=== PATIENT | male | born 1950 | race Caucasian/White ===

== ENCOUNTER → 2018-08-03 08:33 | Outpatient (CLI) | payer OTHER, SELFPAY ==
[2018-08-03 10:44] LABS: AST(SGOT) 29 U/L (15-37); Alanine Aminotransfer ALT/SGPT 45 U/L (16-61); Albumin, Serum 3.5 g/dL (3.2-5.0); Alkaline Phosphatase 56 U/L (45-117); Anion Gap 14 (5-15); BUN 35 mg/dL (7-18); BUN/Creat Ratio 19.7 RATIO (10-20); Calcium,Total 9.1 mg/dL (8.5-10.1); Chloride 104 mmol/L (98-107); Cholesterol 297 mg/dL (200); Creatinine, Serum 1.78 mg/dL (0.70-1.30); EST Glomerular Filtration Rate 41 mL/min (>60); Est Glom Filt Rate - Afr Amer 49 mL/min (>60); Globulin 3.5 g/dL (2.2-4.2); Glucose 150 mg/dL (74-106); High Density Lipoprotein 32 mg/dL; Potassium 3.9 mmol/L (3.5-5.1); Sodium Level 140 mmol/L (136-145); Thyroid Stim Hormone (TSH) 3.62 uIU/mL (0.358-3.74); Triglycerides 403 mg/dL
--- OUTSIDE RECORDS SUMMARY | 2018-11-04 13:25 | XMS RPT_ITS ---
:1950 Author Organization OHIP Care Team Providers Name Role Phone Enzo Jasso Attending Unavailable Enzo Jasso Primary Care Unavailable Enzo Jasso Attending Unavailable Enzo Jasso Primary Care Unavailable PROBLEMS PROBLEMS DATE TYPE CONDITION / CODE ATTENDING STATUS SOURCE 05/03/2018 Unknown E11.29 - Type 2 Enzo Jasso Active [place] diabetes mellitus [facility] with other [facility] diabetic kidney Repository complication / E11.29(ICD-10) PROCEDURES PROCEDURES No Procedure Records FoundRESULTS RESULTS VITAMIN D,25 HYDROXY Collected: 08/03/2018 Status: F Source: [place] 8:36 AM [facility] REPOSITORY Order Comment: Order Date: 05/03/18 Order Info: [id number] - VITD25 Comments: STANDing ORDER TYPE CODE TESTS RESULT OUT OF REFERENCE UNITS RANGE LAB L506.1000 29.95-100.01 ng/mL Low Vitamin D 18.0 25-OH Result Comment: Vitamin D 25(OH) Status Range Deficiency <20 ng/mL (50nmol/L) Insuffciency 20 - 30 ng/mL (50 - 75 nmol/L) Sufficiency 30 - 100 ng/mL (75 - 250 nmol/L) Toxicity >100 ng/mL (>250 nmol/L) Performed By: #### L506.1000, L500.4050, L500.4100, L501.9520 #### [place] [facility] [address] [place], [address] COMPREHENSIVE METABOLIC Collected: 08/03/2018 Status: F Source: [place] PROFIL 8:36 AM [facility] REPOSITORY Order Comment: Order Date: 05/03/18 Order Info: [id number] - CMP Order Info: [id number] - LIPID Order Info: [id number] - TSH TYPE CODE TESTS RESULT OUT OF RANGE REFERENCE UNITS LAB L501.0100 74-106 mg/dL High GLU 150 Result Comment: Fasting Glucose result greater than or equal to 126 mg/dL suggests DIABETES MELLITUS per A.D.A. criteria. Please note revised GLUCOSE reference range effective 2017. LAB L501.1000 7-18 mg/dL High BUN 35 LAB L501.1100 0.70-1.30 mg/dL High CREAT,SERUM 1.78 Result Comment: The validity of the calculated GFR AND GFRAA in patients over 70 years has not been determined. Clinical correlation is essential. LAB L501.1110 >60 mL/min Low EST GFR 41 Result Comment: Non- GFR Calc LAB L501.1115 >60 mL/min Low EST GFR - AA 49 Result Comment: GFR Calc LAB L501.1300 10-20 RATIO Normal BUN/CRE 19.7 LAB L501.1500 6.4-8.2 g/dL T Normal PROT 7.0 LAB L501.1800 3.2-5.0 g/dL Normal ALB 3.5 LAB L501.1950 2.2-4.2 g/dL Normal GLOB 3.5 LAB L501.2000 0.9-2.4 RATIO Normal A/G 1.0 LAB L501.2200 8.5-10.1 mg/dL CA Normal 9.1 LAB L501.4100 15-37 U/L Normal AST 29 LAB L501.4305 45-117 U/L Normal ALK P 56 LAB L501.4405 16-61 U/L Normal ALT 45 LAB L501.4600 0.20-1.00 mg/dL T Normal BILI 0.80 LAB L501.5300 136-145 mmol/L NA Normal 140 LAB L501.5600 3.5-5.1 mmol/L K Normal 3.9 LAB L501.5900 98-107 mmol/L CL Normal 104 LAB L501.6100 21.0-32.0 mmol/L Normal CO2 22.0 LAB L501.6200 5-15 Normal GAP 14 Performed By: #### L506.1000, L500.4050, L500.4100, L501.9520 #### [facility] [address] [place], [place], [id number] LIPID PROFILE Collected: 08/03/2018 Status: F Source: [place] 8:36 AM [facility] REPOSITORY Order Comment: Order Date: 05/03/18 Order Info: [id number] - CMP Order Info: [id number] - LIPID Order Info: [id number] - TSH TYPE CODE TESTS RESULT OUT OF RANGE REFERENCE UNITS LAB L501.4900 200 mg/dL High CHOL 297 Result Comment: <200 mg/dL Desirable 200-240 mg/dL Borderline >240 mg/dL High Risk LAB L501.5000 mg/dL High TRIG 403 Result Comment: The drugs N-Acetylcysteine and Metamizole may falsely depress this assay. TRIGLYCERIDE IS GREATER THAN 400 mg/dL. LDL RESULT IS INVALID AND WILL NOT BE REPORTED. Serum Triglycerides Reference Interval Normal <150 mg/dL Borderline high 150 - 199 mg/dL High 200 - 499 mg/dL Very High > or = 500 mg/dL LAB L501.6400 mg/dL Low HDL 32 Result Comment: The drugs N-Acetylcysteine and Metamizole may falsely depress this assay. Reference Range HDL <40 mg/dL Low HDL Cholesterol HDL >or= 60 mg/dL High HDL Cholesterol LAB L501.6500 0-130 mg/dL Test Normal not performed LDL LAB L501.6600 5-40 mg/dL Test Normal not performed VLDL Performed By: #### L506.1000, L500.4050, L500.4100, L501.9520 #### [facility] [address] [place], [place], [address] THYROID STIM HORMONE Collected: 08/03/2018 Status: F Source: [place] (TSH) 8:36 AM [facility] REPOSITORY Order Comment: Order Date: 05/03/18 Order Info: [id number] - CMP Order Info: [id number] - LIPID Order Info: [id number] - TSH TYPE CODE TESTS RESULT OUT OF RANGE REFERENCE UNITS LAB L501.9520 0.358-3.74 uIU/mL Normal TSH 3.62 Performed By: #### L506.1000, L500.4050, L500.4100, L501.9520 #### [facility] [address] [place], [address] ALLERGIES ALLERGIES DATE TYPE / CODE NAME / CODE REACTION SEVERITY SOURCE 06/04/2017 Drug No Known Unknown [facility] Allergy/4160 Allergies/F00 [facility] 01634(SNOMED [id number](RXNOR Repository CT) M) ENCOUNTERS ENCOUNTERS ADMIT/DISCHARGE ACCOUNT ADMITTING ENCOUNTER LOCATION SOURCE NUMBER CLASS 08/03/2018 [id number] Ambulatory [place] 1 [facility] ing:MFPLAB Repository 05/03/2018 [id number] Ambulatory [place] 6 [facility] ing:LAB.FUTUR Repository E PAYERS PAYERS ENCOUNTER GUARANTOR PAYER SUBSCRIBER SOURCE 08/03/2018 V[facility]A [facility] Primary LUKE Haider [id number] Insurance:[employer] [facility]: [facility] Number: [id number] [id number] Repository [address]Ssh: [phone]) Date:0769-50-86LX [phone] () [address] [place] [address]JB: 08/03/2018 Secondary NOT GIVENUNK [place] Insurance:SELF PAY [facility] Number: Effective Repository Date:2018-08-03 05/03/2018 [place] Dooley Primary LUKE Haider [id number] [facility] [id number] [id number] Repository [address]Kca: ([phone]) Date:1066-10-20AQ [phone] () [address] [place] [address]HL: 05/03/2018 Secondary NOT GIVENUNK [place] Insurance:SELF PAY [facility] Number: Effective Repository Date:2018-05-03
== END ==
PROVIDERS: Family Provider Family Medicine; PCP Family Medicine; Visit Provider Family Medicine
DX: E11.29 Type 2 diabetes mellitus with other diabetic kidney complication (principal)
CPT/HCPCS: 36415; 80053; 80061; 82306; 84443

== ENCOUNTER → 2019-01-27 12:01 | Outpatient (CLI) | payer OTHER, SELFPAY ==
[2017-06-04 14:52] VITALS: BMI 41.1
[2019-01-27 18:40] LABS: Hemoglobin A1c 7.8 % (4.2-6.3)
[2019-01-27 18:56] LABS: ALB/GLOB Ratio 1.2 RATIO (0.9-2.4); AST(SGOT) 23 U/L (15-37); Alanine Aminotransfer ALT/SGPT 34 U/L (16-61); Albumin, Serum 3.8 g/dL (3.2-5.0); Alkaline Phosphatase 39 U/L (45-117); Anion Gap 9 (5-15); BUN 36 mg/dL (7-18); BUN/Creat Ratio 21.7 RATIO (10-20); Calcium,Total 9.1 mg/dL (8.5-10.1); Chloride 106 mmol/L (98-107); Cholesterol 273 mg/dL (200); Creatinine, Serum 1.66 mg/dL (0.70-1.30); EST Glomerular Filtration Rate 44 mL/min (>60); Est Glom Filt Rate - Afr Amer 54 mL/min (>60); Globulin 3.3 g/dL (2.2-4.2); Glucose 114 mg/dL (74-106); High Density Lipoprotein 33 mg/dL; Potassium 4.4 mmol/L (3.5-5.1); Protein, Total 7.1 g/dL (6.4-8.2); Sodium Level 140 mmol/L (136-145); Thyroid Stim Hormone (TSH) 2.79 uIU/mL (0.358-3.74); Triglycerides 293 mg/dL; Very Low Density Lipoprotein 59 mg/dL (5-40)
== END ==
PROVIDERS: Family Provider Family Medicine; PCP Family Medicine; Referring Provider Family Medicine; Visit Provider Family Medicine
DX: E11.29 Type 2 diabetes mellitus with other diabetic kidney complication (principal)
CPT/HCPCS: 36415; 80053; 80061; 83036; 84443

== ENCOUNTER 2019-05-11 08:27 | Outpatient (RCR) | payer OTHER, SELFPAY ==
[2019-05-11 09:26] VITALS: BP 117/72; PULSE 66; RESP 16; TEMP 37; BMI 39.5
--- NOTE | 2019-05-11 18:18 | HP.PCM_ITS ---
(1) Ulcer of right lower extremity with fat layer exposed Status: Acute Current Visit: Yes Code(s): L97.912 - Non-pressure chronic ulcer of unspecified part of right lower leg with fat layer exposed (2) Leg edema Status: Chronic Current Visit: Yes Code(s): R60.0 - Localized edema (3) Venous insufficiency Status: Suspected Current Visit: Yes Code(s): I87.2 - Venous insufficiency (chronic) (peripheral) (4) Other specified peripheral vascular diseases Status: Suspected Current Visit: Yes Code(s): I73.89 - Other specified peripheral vascular diseases (5) Right leg pain Status: Acute Current Visit: Yes Code(s): M79.604 - Pain in right leg (6) Diabetes Status: Chronic Current Visit: Yes Qualifiers: Diabetes mellitus type: type 2 Diabetes mellitus complication detail: with other skin ulcer Code(s): E11.9 - Type 2 diabetes mellitus without complications (7) Malnutrition Status: Suspected Current Visit: Yes Code(s): E46 - Unspecified protein- calorie malnutrition History of Present Illness Date of Service: 05/11/19 Chief Complaint: Right leg ulcer History of Wound: This 68-year-old male with significant past medical history of diabetes presented to the wound healing center complaining of a nonhealing ulcer of approximately 2 and half weeks. He did hit this on the side of his truck and sustained an open injury with further infection formation and black progression of his leg tissue. He was started on antibiotic which was not tolerated and then was further switched to doxycycline. He reports feeling much better and has resolution of leg redness since he has been on doxycycline prescribed by his primary care physician. He denies odor or streaking at this time. His pain is moderate and is aggravated with direct touch. He denies claudication. He denies rest burning, tingling, or numbness. He has ongoing chronic leg swelling. He relates he had previous blisters and wounds and MRSA infections when he was in [place] several years ago which she was treated with IV antibiotics and for a blood clot as well. He denies calf pain similar to his prior blood clot experience at this time. He has been treating the ulcer site with bacitracin and other topical wzzh-vje-wbetcat medication at home. He covers this with a gauze. He relates his last known hemoglobin A1c was approximately 7%. His primary care physician is Dr. Jasso. Past medical history: Diabetes, history of blood clot, hypertension. Medications: Reviewed. Allergies: No known drug allergies. Social history: Lives at home with . He denies alcohol or smoking habits Past Medical History Past Medical History: Chronic Problems Leg edema (Chronic) Diabetes (Chronic) Post-phlebitic syndrome (Chronic) Thromboembolism (Chronic) HLD (hyperlipidemia) (Chronic) Type II diabetes mellitus (Chronic) Benign essential hypertension (Chronic) Surgical History: no surgical history Allergies/Adverse Reactions: Allergies No Known Allergies Allergy (Verified 06/04/17 14:56) Home Medications: Ambulatory Orders Medication Instructions Recorded Acarbose [Precose] 100 mg PO TID 11/12/16 Atenolol [Tenormin (Beta Gabe)] 50 mg PO DAILY 11/12/16 Cinnamon Bark [Cinnamon] 500 mg PO BID 11/12/16 Co Q10 200 [Co Q-10] 100 mg PO DAILY 11/12/16 Dulaglutide [Trulicity] SQ QWEEK 11/12/16 Glimepiride 1 tab PO DAILY 11/12/16 Losartan Potassium [Cozaar] 100 mg PO QHS 11/12/16 Magnesium Oxide [Magnesium] 400 mg PO DAILY 11/12/16 Pravastatin Sodium 80 mg PO DAILY 11/12/16 Selenium 200 tablet PO DAILY 11/12/16 Triamterene/Hydrochlorothiazid 1 each PO DAILY 11/12/16 [Triamterene-Hctz 37.5-25 mg Cp] Warfarin Sodium [Coumadin] 4 mg PO UD 11/12/16 Warfarin [Coumadin (PBKC)] 3 mg PO UD 11/12/16 hydrALAZINE [Apresoline] 25 mg PO BID 11/12/16 metFORMIN HCl [Glucophage] 1,000 mg PO BIDCM 11/12/16 Empagliflozin [Jardiance] 10 mg PO DAILY 06/04/17 Lives: Spouse/ Significant Other Smoking Status: Never smoker Tobacco Use: Non-smoker Alcohol: None Drugs: None Review of Systems Constitutional: Denies: Chills, Fever, Weakness, Fatigue Eyes: Reports: Vision Change HEENT: Denies: Sinus Drainage, Sore Throat Cardiovascular: Denies: Chest Pain, Claudication, Orthopnea Respiratory: Denies: Shortness of Breath Gastrointestinal: Denies: Diarrhea, Nausea, Vomiting Musculoskeletal: Reports: Leg Pain - At wound site. Denies: Foot Pain Skin: Reports: Skin Changes, Wounds Neurological: Denies: Incoordination, Numbness Hematologic/ Lymphatic: Reports: Easy Bruising, Hx of blood clot - Physical Exam Vital Signs Temp Pulse Resp BP 98.6 F 66 16 117/72 05/11/19 09:26 05/11/19 09:26 05/11/19 09:26 05/11/19 09:26 General: Alert, Oriented x3, Cooperative, No apparent distress HEENT: Atraumatic Extremities: No cyanosis, Capillary Refill Less than 3 Seconds - All digits bilateral lower extremities, No Calf Tenderness - Negative Jenna and Tony sign bilateral. Compartments are soft to palpate bilateral lower extremities, Diminished Peripheral Pulses, Edema - Bilateral lower extremities moderate, nonpitting, - - Active range of motion digits x10. 5 out of 5 ankle muscle strength in all directions bilateral Skin: Ulcer/ Wound - Pain with ulcer manipulation right leg. No purulence, erythema, streaking, odor, infection, deep tissue exposure, or probing to bone or muscle. There is a well adhered eschar and after debridement the ulcer bed is granular, fibrous, and with some residual adherence of an eschar. No undermining is noted. The peripheral skin is atrophic with some hair Wound Measurements and Assessment WC - Nurse 1 - General Ulcer Measurement Start: 05/11/19 08:58 Freq: Status: Active Protocol: Activity Type Activity Date Activity User E-Sign Co-Sign Detail Recorded Client Recorded Date Recorded By Document 05/11/19 09:26 [id number] 05/11/19 09:32 05/11/19 09:26 Wound Center Nurse 1 [Ulcer Assessment] #1 RLE -Combined with other wound No -Current Size (cm) - Length 5.5 -Current Size (cm) - Width 2.4 -Current Size (cm) - Depth 0.2 -Total Square Cm 13.20 -Date of Last Picture (Recall this 05/11/19 field) -Photo Taken Yes -Epithelialization None Present -Tunneling No -Undermining/Tunneling No -Circular Undermining No -Exudate Amt None Present -Wound Margin Distinct, Outline Attached -Granulation Amt None Present (0 %) -Granulation Quality N/A -Slough/Fibrin No -Necrosis Amt Large (67-100%) -Necrotic Tissue Type Eschar -Structure Exposed None/Limited to Skin Breakdown -Texture (Mandy-wound Skin Appearance) No Abnormality -Moisture (Mandy-wound Skin Appearance No Abnormality ) -Color (Mandy-wound Skin Appearance) Erythema -Temperature (Mandy-wound Skin No Abnormality Appearance) (Pt Warm) -Tenderness on Palpation (Mandy-wound No Skin Appearance) -Ulcer Cleansing Rinsed/ Irrigated with Saline -Foul Odor after Cleansing No -Anesthetic Used 4% Lidocaine Solution [Edema Assessment] -Lower Limb Edema Present Yes -Right Calf (cm) 43.8 -Right Ankle (cm) 23.5 -Left Calf (cm) 44.5 -Left Ankle (cm) 31.0 WC - Nurse 2 - General Ulcer CM Notes Start: 05/11/19 08:58 Freq: Status: Active Protocol: Activity Type Activity Date Activity User E-Sign Co-Sign Detail Recorded Client Recorded Date Recorded By Document 05/11/19 09:29 AN [id number] 05/11/19 09:43 AN 05/11/19 09:29 Wound Center Nurse 2 [Procedure/Treatment] #1 right lower extremity -Time 09:33 -Correct Patient Yes -Correct Side, Site, Position Yes -Correct Procedure Yes -Procedure Performed Yes -Type of Procedure Debridement -Clinical Debridement Subcutaneous -Post Debridement Size (cm) - Length 5.6 -Post Debridement Size (cm) - Width 2.5 -Post Debridement Size (cm) - Depth 0.2 -Total Square Cm 14.00 -Wound/Ulcer Outcome Not Healed -Ulcer Cleansing Rinsed/ Irrigated with Saline -Foul Odor after Cleansing No -Bioengineered Tissue No -Bleeding Controlled with Pressure -Offloading No -Treatment Response Procedure Tolerated Well [See Physician Procedure note for Specifics] Pain Scale: 0-10 Numeric [Pain] -Is Patient Pain Free? Yes Musculoskeletal: No Tenderness to Palpation of Joints or Extremities, Muscle Wasting Neurological: Sensory exam intact to light touch and pain - [place] Rohini monofilament testing is intact to 5 out of 5 locations on bilateral foot Psych/Mental Status: Normal Affect, Appropriate Debridement Note Post-Debridement Measurements/Treatment [id number] - Nurse 2 - General Ulcer CM Notes Start: 05/11/19 08:58 Freq: Status: Active Protocol: Activity Type Activity Date Activity User E-Sign Co-Sign Detail Recorded Client Recorded Date Recorded By Document 05/11/19 09:29 AN [id number] 05/11/19 09:43 AN 05/11/19 09:29 Wound Center Nurse 2 #1 right lower extremity -Time 09:33 -Correct Patient Yes -Correct Side, Site, Position Yes -Correct Procedure Yes -Procedure Performed Yes -Type of Procedure Debridement -Clinical Debridement Subcutaneous -Post Debridement Size (cm) - Length 5.6 -Post Debridement Size (cm) - Width 2.5 -Post Debridement Size (cm) - Depth 0.2 -Total Square Cm 14.00 -Wound/Ulcer Outcome Not Healed -Ulcer Cleansing Rinsed/ Irrigated with Saline -Foul Odor after Cleansing No -Bioengineered Tissue No -Bleeding Controlled with Pressure -Offloading No -Treatment Response Procedure Tolerated Well Pain Scale: 0-10 Numeric Is Patient Pain Free? Yes Wound debrided: lateral leg Laterality: Right Wound Grade/Stage: grade 1 Type of Debridement: Excisional debridement Anesthesia Used: 5% Lidocaine Gel Depth: in the subcutaneous layer Percentage of wound debrided: 100 Instrument Used: #15 blade Tissue Removed: fibrous, devitalized subcutaneous, biofilm, slough Severity: Fat Layer Exposed Amount of bleeding with debridement: Mild Bleeding Controlled with: Pressure Patient tolerated procedure well Assessment/Plan Active Problems Ulcer of right lower extremity with fat layer exposed (Acute) Leg edema (Chronic) Right leg pain (Acute) Diabetes (Chronic) Assessment: Right leg ulcer, infection resolved with initial traumatic incident with delayed healing, now considered a Fall grade 1. Leg edema bilateral. Venous insufficiency work-up in process and suspected. Peripheral vascular disease work-up is in process. Malnutrition suspected. Diabetes Plan: I reviewed and discussed his case. It is noted his last labs reviewable in [facility] electronic health record system is from 2017. He reports he has had labs drawn within the past month at his primary care physician's office; a medical record release was initiated to obtain these labs including CBC, CMP, and hemoglobin A1c. It is noted he completed a course of doxycycline and I do not recommend continuation at this time. He was reassured no local or systemic signs of illness are suspected today. To monitor for return of signs of infection; this was reviewed. To keep pressure off of this ulcer site by a voiding laying on the right limb. I also recommend a reduction of swelling to reduce pressure. To wear Tubigrip's which was dispensed today. To elevate the limbs at rest and to avoid idle sitting or standing. Venous insufficiency work- up with a venous duplex Doppler for reflux evaluation was ordered today. He does have a previous history of lower extremity ulcers with delayed healing and I recommend screening him for peripheral vascular disease as well. Noninvasive vascular studies were also ordered. To change dressing daily with Aquacel Ag. This was applied today after debridement was performed as noted in the clinical panel. I recommend nutritional supplementation to optimize healing in addition to proper glycemic control. A prescription for Caleb nutritional supplementation was provided and he was advised on proper use. I answered his questions. To return to the wound healing center in 1 week or call sooner if he has any questions or concerns.
== END 2019-05-16 23:59 ==
LOC: WC 08:27
PROVIDERS: Family Provider Family Medicine; PCP Family Medicine; Visit Provider Podiatrist
DX: E11.622 Type 2 diabetes mellitus with other skin ulcer (principal); E11.51 Type 2 diabetes mellitus with diabetic peripheral angiopathy without gangrene; R60.0 Localized edema; L97.812 Non-pressure chronic ulcer of other part of right lower leg with fat layer exposed; I10 Essential (primary) hypertension; E78.5 Hyperlipidemia, unspecified; Z79.01 Long term (current) use of anticoagulants
CPT/HCPCS: 11042; 99202; G0463

== ENCOUNTER 2019-05-20 14:55 | Emergency (ER) | payer OTHER, SELFPAY ==
[2019-05-18 10:35] VITALS: BMI 39.5
[2019-05-20 14:56] VITALS: BP 126/80; PULSE 66; RESP 18; TEMP 36.3; O2SAT 99; BMI 39.6
--- NOTE | 2019-05-20 15:27 | ED.VIS.GEN ---
History of Present Illness Chief Complaint: Lower Extremity Injury Detail of Chief Complaint: DVT left lower extremity Informant: Patient, - - Poke with vascular tach since report not available for review Onset: - - Unknown Context: - - Unknown Timing: - - Unknown Quality: Femoral vein mid thigh Location: Femoral vein mid thigh Current Severity: Moderate Maximum Severity: Moderate Worsened by: Subtherapeutic INR last week Relieved by: Nothing Associated Symptoms: Denies leg pain, swelling, chest pain or dyspnea Narrative: Patient is a 68-year-old male who has a wound on his right lower extremity. He had both of his legs scanned. Scan reveals an acute on chronic mid left femoral vein clot. INR last week was 1.9. Coumadin dose was not increased. He denies fever, chills night sweats. He denies increased leg swelling left lower extremity, change in color or pain. He denies respiratory or cardiac symptoms. 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 (9) Type II diabetes mellitus Status: Chronic Past Medical History - Allergies and Home Meds Allergies/Adverse Reactions: Allergies No Known Allergies Allergy (Verified 06/04/17 14:56) Primary Care Physician: Enzo Jasso MD [Primary Care Provider] - Prior records reviewed: Yes Surgical History: no surgical history Lives: Spouse/ Significant Other Smoking Status: Never smoker Alcohol: None Drugs: None Review of Systems General: Denies: Chills, Fever, Subjective, Sweats ENT: Denies: Rhinorrhea, Sore throat Cardiovascular: Denies: Chest pain, Palpitations, Heart racing Respiratory: Denies: Dyspnea, Cough, Dyspnea on exertion Gastrointestinal: Denies: Abdominal pain, Nausea, Vomiting, Diarrhea, Melena, Hematochezia Musculoskeletal: Reports: Swelling - Chronic swelling lower extremities. Denies: Myalgias, Arthralgias, Neck pain, Back pain, Extremity Pain Skin: Reports: Rash, Wounds - Right leg Neurological: Denies: Weakness, Parasthesia Endocrine: Denies: Polyuria Hematologic: Reports: Easy bruising Allergy: Denies: Uticaria Physical Exam Vital Signs/Narrative: Vital Signs Temp Pulse Resp BP Pulse Ox 05/20/19 14:56 97.4 F L 66 18 126/80 H 99 Inital Vital Signs reviewed: Yes General: Well nourished, Well developed, Obese, No Acute Distress Head: Normocephalic Eyes: Perrl, EOMI. Negative for: Pale conjunctiva, Scleral icterus ENT: Moist mucous membranes, No rhinorrhea Neck: Supple, Nontender, No lymphadenopathy, No JVD Cardiovascular: Regular rate, Regular rhythm, No murmurs, Normal S1, Normal S2 Respiratory: No distress, CTA bilaterally, Chest nontender Abdomen: Soft, Nontender, Nondistended, Normal bowel sounds Rectal: Deferred Back: Nontender Extremities: Nontender, Edema Skin: Normal color. Negative for: Cyanosis, Diaphoresis, Jaundice Neurological: Alert, Oriented x3, Cranial nerves II-XII grossly intact, Normal Strength, Normal Sensation Psychological: Normal affect, Normal Mood Diagnostic/Tx/Re-eval Laboratory Results 05/20/19 05/20/19 05/20/19 15:40 15:40 15:40 WBC 9.6 RBC 4.83 Hgb 15.1 Hct 46.2 MCV 95.7 H MCH 31.3 MCHC 32.7 RDW Std Deviation 47.6 H RDW Coeff of Geovanna 13.4 Plt Count 230 MPV 9.5 PT 23.3 H INR 2.1 Sodium 139 Potassium 3.8 Chloride 109 H Carbon Dioxide 24.0 Anion Gap 6 BUN 41 H Creatinine 1.84 H Estim Creat Clear Calc 44.63 Est GFR (MDRD) Af Amer 48 L Est GFR (MDRD) Non-Af 39 L BUN/Creatinine Ratio 22.3 H Glucose 157 H Calcium 9.1 CBC, H&H and platelet count are normal. INR is 2.1 which is within therapeutic range. Creatinine is 1.84 with a GFR of 39. Glucose is 157. Since patient's creatinine is elevated 1.84 and GFR is [address] patient on heparin after heparin bolus. Hospitalist will be paged for admission and consultation with hematology and Dr. Yosef Chen for possible placement of filter. - Medical Decision Making Patient with acute on chronic DVT. Will assess PT/INR since it was subtherapeutic last week. Patient is subtherapeutic that would explain the acute DVT if he is therapeutic will need to anticoagulate possibly with heparin and discuss with surgery regarding placement of filter Patient has recurrent clot on therapeutic level of Coumadin will anticoagulate and speak with hospitalist for admission and determination what best to do for the patient since his creatinine is elevated 1.84 with a GFR of 39. After speaking with pharmacist it was determined that it is appropriate to change him to Eliquis. He received appropriate loading dose and 1 month prescription. He is to follow-up with his doctor for additional prescriptions. ED Disposition - Plan for ED Patient: Disposition: Home or Assisted Living Diagnosis: DVT, femoral, acute Prescriptions: Apixaban [Eliquis] 5 mg PO BID #74 tablet Referrals: Enzo Jasso MD [Primary Care Provider] - 1-2 Weeks
[2019-05-20 15:49] LABS: Hematocrit 46.2 % (40-54); Hemoglobin 15.1 g/dL (13.0-16.5); Mean Corp Hgb Conc 32.7 g/dL (32-36); Mean Corpuscular Hgb 31.3 pg (27.0-32.0); Mean Corpuscular Volume 95.7 fL (80-94); Mean Platelet Vol. 9.5 fl (6.2-12.0); Platelet Count 230 K/mm3 (150-450); RBC Distribution Width CV 13.4 % (11.6-14.6); RBC Distribution Width SD 47.6 fl (35.1-43.9); Red Blood Count 4.83 M/mm3 (4.6-6.2); White Blood Count 9.6 K/mm3 (4.4-11.0)
[2019-05-20 16:04] LABS: Anion Gap 6 (5-15); BUN 41 mg/dL (7-18); BUN/Creat Ratio 22.3 RATIO (10-20); Calcium,Total 9.1 mg/dL (8.5-10.1); Chloride 109 mmol/L (98-107); Creatinine, Serum 1.84 mg/dL (0.70-1.30); EST Glomerular Filtration Rate 39 mL/min (>60); Est Glom Filt Rate - Afr Amer 48 mL/min (>60); Estimated Creatinine Clearance 44.63 ml/min; Glucose 157 mg/dL (74-106); Potassium 3.8 mmol/L (3.5-5.1); Sodium Level 139 mmol/L (136-145)
[2019-05-20 16:26] LABS: International Normalized Ratio 2.1; Prothrombin Time (Protime)PT. 23.3 SECONDS (11.7-14.9)
--- NOTE | 2019-05-20 16:58 | ED.VISSUMM ---
- ER Visit Summary Date of Service: 05/20/19 Chief Complaint: [] History of Present Illness: The patient is a 68 M [] Physical Examination: [] Test Results: [] Emergency Department Course and Treatment: [] Treatment Plan: [] Disposition: [] Impression: [] This note was generated with [employer] dictation software. It may contain incorrect words, spelling, and punctuation that were not noted in review of the chart prior to signing ED Disposition - Plan for ED Patient: Disposition: Home or Assisted Living Diagnosis: DVT, femoral, acute Instructions: Dvt Prescriptions: Apixaban [Eliquis] 5 mg PO BID #74 tab Referrals: Enzo Jasso MD [Primary Care Provider] - 1-2 Weeks
[2019-05-20 17:23] LABS: Partial Thromboplast Time 36.9 Seconds (24.1-36.2)
[2019-05-20] MEDS: APIXABAN 5 MG TABLET 10 MG PO (17:30)
[2019-05-20 17:35] VITALS: BP 142/74; PULSE 63; RESP 16; O2SAT 95; O2SAT 96
== END 2019-05-20 17:38 | disposition home or self-care (01) ==
PROVIDERS: Emergency Provider Emergency Medicine; Family Provider Family Medicine; PCP Family Medicine
DX: I82.412 Acute embolism and thrombosis of left femoral vein (principal); I82.512 Chronic embolism and thrombosis of left femoral vein; I87.2 Venous insufficiency (chronic) (peripheral); I10 Essential (primary) hypertension; E11.9 Type 2 diabetes mellitus without complications; Z79.01 Long term (current) use of anticoagulants; Z79.84 Long term (current) use of oral hypoglycemic drugs; Z79.899 Other long term (current) drug therapy
CPT/HCPCS: 80048; 85027; 85610; 85730; 99284; A4216

== ENCOUNTER 2019-06-15 08:45 | Outpatient (RCR) | payer OTHER, SELFPAY ==
[2019-05-17 01:19] VITALS: BP 117/72; PULSE 66; RESP 16; TEMP 37
[2019-05-18 10:35] VITALS: BP 131/76; PULSE 69; RESP 16; TEMP 36.1; BMI 39.5
--- NOTE | 2019-05-18 12:04 | PCM.WC.PN ---
(1) Cellulitis of right leg Status: Acute Current Visit: Yes Code(s): L03.115 - Cellulitis of right lower limb (2) Ulcer of right lower extremity with fat layer exposed Status: Chronic Current Visit: Yes Code(s): L97.912 - Non-pressure chronic ulcer of unspecified part of right lower leg with fat layer exposed (3) Leg edema Status: Chronic Current Visit: Yes Code(s): R60.0 - Localized edema (4) Venous insufficiency Status: Suspected Current Visit: Yes Code(s): I87.2 - Venous insufficiency (chronic) (peripheral) (5) Other specified peripheral vascular diseases Status: Suspected Current Visit: Yes Code(s): I73.89 - Other specified peripheral vascular diseases (6) Right leg pain Status: Acute Current Visit: Yes Code(s): M79.604 - Pain in right leg (7) Diabetes Status: Chronic Current Visit: Yes Qualifiers: Diabetes mellitus type: type 2 Code(s): E11.9 - Type 2 diabetes mellitus without complications (8) Malnutrition Status: Suspected Current Visit: Yes Code(s): E46 - Unspecified protein-calorie malnutrition Type of Wound Date of Service: 05/18/19 Chief Complaint: Right leg ulcer History of Wound: This 68-year-old male with significant past medical history of diabetes presented to the wound healing center complaining of a to need nonhealing ulcer. He was started on antibiotic which was not tolerated and then was further switched to doxycycline. He has returned inflammation with some new tunneling noted. His pain is moderate and is aggravated with direct touch. He denies claudication. He denies rest burning, tingling, or numbness. He denies current fever, chill, nausea, vomiting. Progress of Wound: Worse status - Physical Exam Vital Signs Temp Pulse Resp BP 96.9 F L 69 16 131/76 H 05/18/19 10:35 05/18/19 10:35 05/18/19 10:35 05/18/19 10:35 General: Alert, Oriented x3, Cooperative, No apparent distress HEENT: Atraumatic Extremities: No cyanosis, Capillary Refill Less than 3 Seconds, No Calf Tenderness - Negative pain with calf compression and with ankle joint dorsiflexion and plantarflexion right lower extremity and left lower extremity, Diminished Peripheral Pulses, Edema - Right lower extremity Skin: Ulcer/ Wound - There is no purulence. There is peripheral erythema around the ulcer site with new medial deep tunneling that extends almost 3 cm. There is no probe to bone. There is probe to deeper muscle and tendon tissue. There is no keith necrosis. The peripheral skin is hairless and atrophic. Wound Measurements and Assessment WC - Nurse 1 - General Ulcer Measurement Start: 05/18/19 10:35 Freq: Status: Active Protocol: Activity Type Activity Date Activity User E-Sign Co-Sign Detail Recorded Client Recorded Date Recorded By Document 05/18/19 10:35 BM [id number] 05/18/19 10:43 BMF 05/18/19 10:35 Wound Center Nurse 1 [Ulcer Assessment] #1 RLE -Combined with other wound No -Current Size (cm) - Length 2.9 -Current Size (cm) - Width 1.7 -Current Size (cm) - Depth 0.5 -Total Square Cm 4.93 -Photo Taken No -Epithelialization None Present -Tunneling No -Undermining/Tunneling No -Circular Undermining No -Exudate Amt Medium -Exudate Type Serosanguineous -Wound Margin Distinct, Outline Attached -Granulation Amt None Present (0 %) -Slough/Fibrin Yes -Necrosis Amt Large (67-100%) -Necrotic Tissue Type Adherent Slough -Texture (Mandy-wound Skin Appearance) Assessed, Scarring -Moisture (Mandy-wound Skin Appearance Assessed,Dry/ ) Scaly -Color (Mandy-wound Skin Appearance) Assessed, Erythema -Temperature (Mandy-wound Skin No Abnormality Appearance) (Pt Warm) -Tenderness on Palpation (Mandy-wound No Skin Appearance) -Ulcer Cleansing Rinsed/ Irrigated with Saline -Foul Odor after Cleansing No -Anesthetic Used 4% Lidocaine Solution [Edema Assessment] -Lower Limb Edema Present Yes -Right Calf (cm) 42.7 -Right Ankle (cm) 27.3 WC - Nurse 2 - General Ulcer CM Notes Start: 05/18/19 10:35 Freq: Status: Active Protocol: Activity Type Activity Date Activity User E-Sign Co-Sign Detail Recorded Client Recorded Date Recorded By Document 05/18/19 10:49 AN [id number] 05/18/19 10:58 AN 05/18/19 10:49 Wound Center Nurse 2 [Procedure/Treatment] #1 RLE -Time 10:50 -Correct Patient Yes -Correct Side, Site, Position Yes -Correct Procedure Yes -Procedure Performed Yes -Type of Procedure Debridement -Clinical Debridement Subcutaneous -Post Debridement Size (cm) - Length 3.0 -Post Debridement Size (cm) - Width 1.8 -Post Debridement Size (cm) - Depth 0.5 -Total Square Cm 5.40 -Wound/Ulcer Outcome Not Healed -Ulcer Cleansing Rinsed/ Irrigated with Saline -Foul Odor after Cleansing No -Bioengineered Tissue No -Bleeding Controlled with Pressure -Offloading No -Treatment Response Procedure Tolerated Well [See Physician Procedure note for Specifics] Pain Scale: 0-10 Numeric [Pain] -Is Patient Pain Free? Yes Musculoskeletal: No Tenderness to Palpation of Joints or Extremities, Muscle Wasting, - - Compartment soft to palpate right lower extremity. No bogginess or fluctuance on palpation of the right leg Neurological: - - Lack of normal epicritic sensation light touch Psych/Mental Status: Normal Affect, Appropriate Debridement Note Post-Debridement Measurements/Treatment WC - Nurse 2 - General Ulcer CM Notes Start: 05/18/19 10:35 Freq: Status: Active Protocol: Activity Type Activity Date Activity User E-Sign Co-Sign Detail Recorded Client Recorded Date Recorded By Document 05/18/19 10:49 AN [id number] 05/18/19 10:58 AN 05/18/19 10:49 Wound Center Nurse 2 #1 RLE -Time 10:50 -Correct Patient Yes -Correct Side, Site, Position Yes -Correct Procedure Yes -Procedure Performed Yes -Type of Procedure Debridement -Clinical Debridement Subcutaneous -Post Debridement Size (cm) - Length 3.0 -Post Debridement Size (cm) - Width 1.8 -Post Debridement Size (cm) - Depth 0.5 -Total Square Cm 5.40 -Wound/Ulcer Outcome Not Healed -Ulcer Cleansing Rinsed/ Irrigated with Saline -Foul Odor after Cleansing No -Bioengineered Tissue No -Bleeding Controlled with Pressure -Offloading No -Treatment Response Procedure Tolerated Well Pain Scale: 0-10 Numeric Is Patient Pain Free? Yes Wound debrided: leg Laterality: Right Wound Grade/Stage: grade 2 Type of Debridement: Excisional debridement Anesthesia Used: 5% Lidocaine Gel Depth: in the subcutaneous layer Percentage of wound debrided: 100 Instrument Used: #15 blade, Forceps Tissue Removed: fibrous, devitalized subcutaneous, biofilm, slough, eschar Severity: Fat Layer Exposed Amount of bleeding with debridement: Mild Bleeding Controlled with: Pressure Patient tolerated procedure well Assessment/Plan Active Problems Ulcer of right lower extremity with fat layer exposed (Chronic) Leg edema (Chronic) Right leg pain (Acute) Diabetes (Chronic) Cellulitis of right leg (Acute) Assessment: Right leg ulcer, with status worse change and cellulitis. Leg edema bilateral. Venous insufficiency work-up in process and suspected. Peripheral vascular disease work-up is in process. Malnutrition suspected. Diabetes Plan: I reviewed and discussed his case. It is noted his last labs reviewable in [employer] electronic health record system is from 2017. I ordered updated labs including CBC and CMP. His last hemoglobin A1c was recently 7.8%. It is noted he completed a course of doxycycline . The ulcer site was recultured today and sent for aerobic, anaerobic, acid-fast, and fungal testing. An antibiotic refill for doxycycline was provided he was advised on safe and proper use. To change dressing daily with saline sterile gauze packing; this is demonstrated. To keep pressure off of this ulcer site by avoiding laying on the right limb. I also recommend a reduction of swelling to reduce pressure. To wear Tubigrip's which was dispensed today. To elevate the limbs at rest and to avoid idle sitting or standing. Venous insufficiency work-up with a venous duplex Doppler for reflux evaluation and noninvasive arterial studies were additionally ordered. The results are pending. I recommend nutritional supplementation to optimize healing in addition to proper glycemic control. A prescription for Caleb nutritional supplementation was provided previously and he was advised on proper use. I answered his questions. To return to the wound healing center in 1 week or call sooner if he has any questions or concerns.
--- NOTE | 2019-05-20 12:33 | VDLE_ITS ---
Reason For Study: PVD RIGHT LEFT CFV is compressible, spontaneous, phasic, GSV is normal. competent and demonstrates normal POP V is compressible, spontaneous, phasic, augmentation. competent and demonstrates normal FV is compressible, spontaneous, phasic, augmentation. competent and demonstrates normal T/P Trunk is compressible. augmentation. PTV is compressible. POP V is compressible, spontaneous, phasic, LT PerV is compressible. competent and demonstrates normal Lt CFV and Lt FV prox are partially augmentation. compressible with bright intraluminal echoes T/P Trunk is compressible. consistent with chronic DVT PTV is compressible. RT PerV is compressible. Lt FV mid is dilated and non compressible SFJ is competent and measures 0.63cm x 0.61 consistent with acute DVT. cm. SFJ is competent and measures 0.69cm x 0.69 GSV proximal thigh measures 0.56cm x 0.54 cm. cm. GSV at knee measures 0.40cm x 0.43 cm. GSV proximal thigh measures 0.85cm x 0.91 cm. GSV above knee is competent. GSV at knee measures 0.49cm x 0.51 cm. GSV below knee is INCOMPETENT for greater GSV is competent throughout. than 0.5 seconds. SSV proximal calf is INCOMPETENT for greater SSV proximal calf is competent and measures than 0.5 seconds and measures 0.35cm x 0.35 0.47cm x 0.47 cm. cm. Procedure Exam performed in department. Pt sent to ED. A preliminary report was called and/or faxed to Dr. Austin. Interpretation Summary Acute deep vein thrombosis is noted in the left mid-femoral vein. Chronic venous changes are noted in the left common femoral vein and proximal femoral vein, which are partially compressible and demonstrate bright intraluminal echogenicity. The remainder of the left lower extremity deep venous system is patent and compressible. The left popliteal vein is competent. Deep veins of the right lower extremity are patent and compressible segmentally. There is no evidence of right lower extremity deep vein thrombosis. Valvular competence appears intact within the proximal deep venous system on the right . The great saphenous veins appear bilaterally patent and compressible segmentally. Sapheno-femoral junctions are bilaterally competent . The right great saphenous vein appears competent above the knee. The right great saphenous vein appears incompetent below the knee. The left great saphenous vein appears segmentally competent. The right small saphenous vein is patent and competent. The left small saphenous vein is patent and incompetent. Ordering Physician: Harika Austin Referring Physician: Enzo Jasso Performed By: Ashely Rodríguez, JOSÉ, RVT
[2019-05-25 08:01] VITALS: BP 130/70; PULSE 70; RESP 18; TEMP 35.7; BMI 39.5
--- NOTE | 2019-05-25 09:08 | PN.PCM_ITS ---
(1) Cellulitis of right leg Status: Acute Current Visit: Yes Code(s): L03.115 - Cellulitis of right lower limb (2) Ulcer of right lower extremity with fat layer exposed Status: Chronic Current Visit: Yes Code(s): L97.912 - Non-pressure chronic ulcer of unspecified part of right lower leg with fat layer exposed (3) Leg edema Status: Chronic Current Visit: Yes Code(s): R60.0 - Localized edema (4) Venous insufficiency Status: Suspected Current Visit: Yes Code(s): I87.2 - Venous insufficiency (chronic) (peripheral) (5) Right leg pain Status: Acute Current Visit: Yes Code(s): M79.604 - Pain in right leg (6) Diabetes Status: Chronic Current Visit: Yes Qualifiers: Diabetes mellitus type: type 2 Code(s): E11.9 - Type 2 diabetes mellitus without complications (7) Malnutrition Status: Suspected Current Visit: Yes Code(s): E46 - Unspecified protein- calorie malnutrition Type of Wound Date of Service: 05/25/19 Chief Complaint: Right leg ulcer History of Wound: This 68-year-old male with significant past medical history of diabetes presented to the wound healing center complaining of a to need nonhealing ulcer. He was started on antibiotic which was not tolerated and then was further switched to doxycycline. Inflammation is decreased compared to last week. His pain is moderate and is aggravated with direct touch. He denies claudication. He denies rest burning, tingling, or numbness. He denies current fever, chill, nausea, vomiting. He obtain his arterial venous studies. It was noted that he had a new acute blood clot and previous chronic blood clots. He was seen in the emergency room for this and was switched to Eliquis anticoagulation plan. He would like to start laser therapy with his chiropractor. Progress of Wound: Stabilizing - Physical Exam Vital Signs Temp Pulse Resp BP 96.2 F L 70 18 130/70 H 05/25/19 08:01 05/25/19 08:01 05/25/19 08:01 05/25/19 08:01 General: Alert, Oriented x3, Cooperative, No apparent distress HEENT: Atraumatic Extremities: No cyanosis, Capillary Refill Less than 3 Seconds, No Calf Tenderness - Negative Jenna and Tony signs right, Diminished Peripheral Pulses, Edema Skin: Ulcer/ Wound - No purulence, streaking, odor. There is decreased erythema around the ulcer site, - - The peripheral skin is hairless and atrophic Wound Measurements and Assessment WC - Nurse 1 - General Ulcer Measurement Start: 05/18/19 10:35 Freq: Status: Active Protocol: Activity Type Activity Date Activity User E-Sign Co-Sign Detail Recorded Client Recorded Date Recorded By Document 05/25/19 08:01 PASCUAL [id number] 05/25/19 08:09 05/25/19 08:01 Wound Center Nurse 1 [Ulcer Assessment] #1 RLE -Combined with other wound No -Current Size (cm) - Length 3 -Current Size (cm) - Width 2.3 -Current Size (cm) - Depth 0.4 -Total Square Cm 6.9 -Photo Taken No -Epithelialization None Present -Tunneling No -Undermining/Tunneling No -Circular Undermining No -Exudate Amt Small -Exudate Type Serosanguineous -Wound Margin Flat & Intact -Granulation Amt Small (1-33%) -Granulation Quality Red -Slough/Fibrin Yes -Necrosis Amt Large (67-100%) -Necrotic Tissue Type Adherent Slough -Structure Exposed N/A -Texture (Mandy-wound Skin Appearance) Assessed, Localized Edema -Moisture (Mandy-wound Skin Appearance Assessed,Dry/ ) Scaly -Color (Mandy-wound Skin Appearance) Assessed, Hemosiderin Staining -Temperature (Mandy-wound Skin No Abnormality Appearance) (Pt Warm) -Tenderness on Palpation (Mandy-wound No Skin Appearance) -Ulcer Cleansing Rinsed/ Irrigated with Saline -Foul Odor after Cleansing No -Anesthetic Used 5% Lidocaine Gel [Edema Assessment] -Lower Limb Edema Present Yes -Right Calf (cm) 42.7 -Right Ankle (cm) 26.5 Musculoskeletal: No Tenderness to Palpation of Joints or Extremities, Muscle Wasting Neurological: - - Lack of normal epicritic sensation light touch Psych/Mental Status: Normal Affect, Appropriate Debridement Note Post-Debridement Measurements/Treatment WC - Nurse 2 - General Ulcer CM Notes Start: 05/18/19 10:35 Freq: Status: Active Protocol: Activity Type Activity Date Activity User E-Sign Co-Sign Detail Recorded Client Recorded Date Recorded By Document 05/18/19 10:49 AN [id number] 05/18/19 10:58 AN 05/18/19 10:49 Wound Center Nurse 2 #1 RLE -Time 10:50 -Correct Patient Yes -Correct Side, Site, Position Yes -Correct Procedure Yes -Procedure Performed Yes -Type of Procedure Debridement -Clinical Debridement Subcutaneous -Post Debridement Size (cm) - Length 3.0 -Post Debridement Size (cm) - Width 1.8 -Post Debridement Size (cm) - Depth 0.5 -Total Square Cm 5.40 -Wound/Ulcer Outcome Not Healed -Ulcer Cleansing Rinsed/ Irrigated with Saline -Foul Odor after Cleansing No -Bioengineered Tissue No -Bleeding Controlled with Pressure -Offloading No -Treatment Response Procedure Tolerated Well Pain Scale: 0-10 Numeric Is Patient Pain Free? Yes Wound debrided: leg Laterality: Right Wound Grade/Stage: grade 1 Type of Debridement: Excisional debridement Anesthesia Used: 5% Lidocaine Gel Depth: in the subcutaneous layer Percentage of wound debrided: 100 Instrument Used: 5mm curette, #15 blade Tissue Removed: fibrous, devitalized subcutaneous, biofiom, slough Severity: Fat Layer Exposed Amount of bleeding with debridement: Mild Bleeding Controlled with: Pressure Patient tolerated procedure well Assessment/Plan Active Problems Ulcer of right lower extremity with fat layer exposed (Chronic) Leg edema (Chronic) Right leg pain (Acute) Diabetes (Chronic) Cellulitis of right leg (Acute) Assessment: Right leg ulcer, with cellulitis. Leg edema bilateral. Venous insufficiency. Chronic and acute deep venous thrombosis. Malnutrition suspected. Diabetes Plan: I reviewed and discussed his case. It is noted his last labs reviewable in [facility] electronic health record system is from 2017. I ordered updated labs including CBC and CMP. His last hemoglobin A1c was recently 7.8%. It is noted he completed a course of doxycycline . The culture results were reviewed with staph epidermidis last week with resistance to tetracycline. I do not recommend refill of antibiotics. I do recommend follow-up with infectious disease which will be coordinated for next week to to continue devitalized tissue. I recommend washing the wound daily with antimicrobial soap as well and packing it with with gauze to perform serial debridements over the course the w nikolski. It is noted that the wound is deeper and extending into the fat layer of the leg. To keep pressure off of this ulcer site by avoiding laying on the right limb. I also recommend a reduction of swelling to reduce pressure. To wear Tubigrip's which was dispensed today. To elevate the limbs at rest and to avoid idle sitting or standing. Venous insufficiency work-up with a venous duplex Doppler for reflux evaluation was completed and incompetent veins are noted. I recommend referral to vascular specialist, Dr. Perez. His acute and chronic blood clots were also noted and this is already been addressed. He is been switched from Coumadin to Eliquis. He will follow-up with his primary care physician in regards to this. noninvasive arterial studies were additionally ordered and they appear to demonstrate overall normal perfusion to the lower extremities. Answered his questions about the laser therapy and it is okay to proceed. I recommend nutritional supplementation to optimize healing in addition to proper glycemic control. A prescription for Caleb nutritional supplementation was provided previously and he was advised on proper use. I answered his questions. To return to the wound healing center in 1 week or call sooner if he has any questions or concerns.
[2019-06-01 13:05] VITALS: BP 132/73; PULSE 73; RESP 16; TEMP 35.5; BMI 39.5
--- NOTE | 2019-06-01 14:38 | PN.PCM_ITS ---
(1) Cellulitis of right leg Status: Acute Current Visit: Yes Code(s): L03.115 - Cellulitis of right lower limb (2) Ulcer of right lower extremity with fat layer exposed Status: Chronic Current Visit: Yes Code(s): L97.912 - Non-pressure chronic ulcer of unspecified part of right lower leg with fat layer exposed (3) Leg edema Status: Chronic Current Visit: Yes Code(s): R60.0 - Localized edema (4) Venous insufficiency Status: Suspected Current Visit: Yes Code(s): I87.2 - Venous insufficiency (chronic) (peripheral) (5) Right leg pain Status: Acute Current Visit: Yes Code(s): M79.604 - Pain in right leg (6) Diabetes Status: Chronic Current Visit: Yes Qualifiers: Diabetes mellitus type: type 2 Code(s): E11.9 - Type 2 diabetes mellitus without complications (7) Malnutrition Status: Suspected Current Visit: Yes Code(s): E46 - Unspecified protein- calorie malnutrition Type of Wound Date of Service: 06/01/19 Chief Complaint: Right leg ulcer History of Wound: This 68-year-old male with significant past medical history of diabetes presented to the wound healing center complaining of a to need nonhealing ulcer. He was started on antibiotic which was not tolerated and then was further switched to doxycycline. He completed the course of doxycycline and relates continued inflammation and redness resolution compared to last week. His pain has decreased. He denies claudication. He denies rest burning, tingling, or numbness. He denies current fever, chill, nausea, vomiting. He obtain his arterial venous studies. It was noted that he had a new acute blood clot and previous chronic blood clots. He was seen in the emergency room for this and was switched to Eliquis anticoagulation plan. He did not schedule his referral appointment with vascular surgery yet because he states he has been too busy. Progress of Wound: Improving and infection is resolving - Physical Exam Vital Signs Temp Pulse Resp BP 95.9 F L 73 16 132/73 H 06/01/19 13:05 06/01/19 13:05 06/01/19 13:05 06/01/19 13:05 General: Alert, Oriented x3, Cooperative, No apparent distress Extremities: No cyanosis, Capillary Refill Less than 3 Seconds, No Calf Tenderness - No bogginess or fluctuant reggie-ulcer site, right leg. Compartments soft to palpate right leg, Diminished Peripheral Pulses, Edema Skin: Ulcer/ Wound - No purulence, erythema, string, odor. Eschar and fibrous tissue is decreased in the ulcer bed and there is increased granulation tissue. There is no exposed bone. The peripheral skin is hairless and atrophic. There is some undermining at the 3 o'clock position there is approximately 1-1/2 cm. Wound Measurements and Assessment WC - Nurse 1 - General Ulcer Measurement Start: 05/18/19 10:35 Freq: Status: Active Protocol: Activity Type Activity Date Activity User E-Sign Co-Sign Detail Recorded Client Recorded Date Recorded By Document 06/01/19 13:05 [facility] [id number] 06/01/19 13:11 [facility] 06/01/19 13:05 Wound Center Nurse 1 [Ulcer Assessment] #1 RLE -Combined with other wound No -Current Size (cm) - Length 3.2 -Current Size (cm) - Width 2.6 -Current Size (cm) - Depth 0.5 -Total Square Cm 8.32 -Photo Taken No -Epithelialization None Present -Tunneling No -Undermining/Tunneling No -Circular Undermining No -Exudate Amt Small -Exudate Type Serosanguineous -Wound Margin Distinct, Outline Attached -Granulation Amt Small (1-33%) -Granulation Quality Red -Slough/Fibrin Yes -Necrosis Amt Large (67-100%) -Necrotic Tissue Type Adherent Slough -Texture (Reggie-wound Skin Appearance) Assessed, Scarring -Moisture (Reggie-wound Skin Appearance Assessed ) -Color (Reggie-wound Skin Appearance) Assessed, Erythema -Temperature (Reggie-wound Skin No Abnormality Appearance) (Pt Warm) -Tenderness on Palpation (Reggie-wound Yes Skin Appearance) -Ulcer Cleansing Rinsed/ Irrigated with Saline -Foul Odor after Cleansing No -Anesthetic Used 4% Lidocaine Solution,5% Lidocaine Gel [Edema Assessment] -Lower Limb Edema Present Yes -Right Calf (cm) 44.5 -Right Ankle (cm) 27.3 WC - Nurse 2 - General Ulcer CM Notes Start: 05/18/19 10:35 Freq: Status: Active Protocol: Activity Type Activity Date Activity User E-Sign Co-Sign Detail Recorded Client Recorded Date Recorded By Document 06/01/19 13:31 [id number] 06/01/19 13:32 06/01/19 13:31 Wound Center Nurse 2 [Procedure/Treatment] #1 RLE -Time 13:31 -Correct Patient Yes -Correct Side, Site, Position Yes -Correct Procedure Yes -Procedure Performed Yes -Type of Procedure Debridement -Clinical Debridement Subcutaneous -Post Debridement Size (cm) - Length 3.3 -Post Debridement Size (cm) - Width 2.6 -Post Debridement Size (cm) - Depth 0.6 -Total Square Cm 8.58 -Wound/Ulcer Outcome Not Healed -Ulcer Cleansing Rinsed/ Irrigated with Saline -Foul Odor after Cleansing No -Bioengineered Tissue No -Bleeding Controlled with Pressure -Offloading No -Treatment Response Procedure Tolerated Well [See Physician Procedure note for Specifics] Pain Scale: 0-10 Numeric [Pain] -Is Patient Pain Free? Yes Musculoskeletal: No Tenderness to Palpation of Joints or Extremities, Muscle Wasting Neurological: Sensory exam intact to light touch and pain Psych/Mental Status: Normal Affect, Appropriate Debridement Note Post-Debridement Measurements/Treatment WC - Nurse 2 - General Ulcer CM Notes Start: 05/18/19 10:35 Freq: Status: Active Protocol: Activity Type Activity Date Activity User E-Sign Co-Sign Detail Recorded Client Recorded Date Recorded By Document 05/18/19 10:49 AN [id number] 05/18/19 10:58 AN Document 06/01/19 13:31 [id number] 06/01/19 13:32 05/18/19 06/01/19 10:49 13:31 Wound Center Nurse 2 #1 RLE -Time 10:50 13:31 -Correct Patient Yes Yes -Correct Side, Site, Position Yes Yes -Correct Procedure Yes Yes -Procedure Performed Yes Yes -Type of Procedure Debridement Debridement -Clinical Debridement Subcutaneous Subcutaneous -Post Debridement Size (cm) - Length 3.0 3.3 -Post Debridement Size (cm) - Width 1.8 2.6 -Post Debridement Size (cm) - Depth 0.5 0.6 -Total Square Cm 5.40 8.58 -Wound/Ulcer Outcome Not Healed Not Healed -Ulcer Cleansing Rinsed/ Rinsed/ Irrigated with Irrigated with Saline Saline -Foul Odor after Cleansing No No -Bioengineered Tissue No No -Bleeding Controlled with Pressure Pressure -Offloading No No -Treatment Response Procedure Procedure Tolerated Well Tolerated Well Pain Scale: 0-10 Numeric Is Patient Pain Free? Yes Yes Wound debrided: leg Laterality: Right Wound Grade/Stage: grade 1 Type of Debridement: Excisional debridement Anesthesia Used: 5% Lidocaine Gel Depth: in the subcutaneous layer Percentage of wound debrided: 100 Instrument Used: #15 blade Tissue Removed: fibrous, devitalized subcutaneous, biofilm, slough Severity: Fat Layer Exposed Amount of bleeding with debridement: Mild Bleeding Controlled with: Pressure Patient tolerated procedure well Assessment/Plan Active Problems Ulcer of right lower extremity with fat layer exposed (Chronic) Leg edema (Chronic) Right leg pain (Acute) Diabetes (Chronic) Cellulitis of right leg (Acute) Assessment: Right leg ulcer, with fat layer exposed, with cellulitis resolving. Leg edema bilateral. Venous insufficiency. Chronic and acute deep venous thrombosis. Malnutrition suspected. Diabetes Plan: I reviewed and discussed his case. Excisional subcutaneous debridement was performed to the right leg as noted in the clinical panel. His CBC and CMP from earlier this month were reviewed without leukocytosis. It is noted his white blood cell count is 9.6 and his creatinine is 1.84. His last hemoglobin A1c was recently 7.8%. It is noted he completed a course of doxycycline . The culture results were reviewed with staph epidermidis sensitive to doxycycline. I do not recommend refill of antibiotics. I do recommend follow-up with infectious disease and visit today is appreciated. Additional antibiotics are not recommended at this time. This will be monitored closely. I recommend washing the wound daily with antimicrobial soap as well and to change dressing daily with Aquacel Ag. It is noted that the wound is deeper and extending into the fat layer of the leg. To keep pressure off of this ulcer site by avoiding laying on the right limb. I also recommend a reduction of swelling to reduce pressure. To wear Tubigrip's which was dispensed today. To elevate the limbs at rest and to avoid idle sitting or standing. Venous insufficiency work-up with a venous duplex Doppler for reflux evaluation was completed and incompetent veins are noted. I recommend referral to vascular specialist, Dr. Perez. His acute and chronic blood clots were also noted and this is already been addressed. He is been switched from Coumadin to Eliquis. He will follow-up with his primary care physician in regards to this. noninvasive arterial studies were additionally ordered and they appear to demonstrate overall normal perfusion to the lower extremities. I recommend nutritional supplementation to optimize healing in addition to proper glycemic control. A prescription for Caleb nutritional supplementation was provided previously and he was advised on proper use. I answered his questions. To return to the wound healing center in 1 week or call sooner if he has any questions or concerns.
--- NOTE | 2019-06-01 14:39 | PCM.HP.ID ---
Reason for Consult: infected wound Consulted by: Dr. Austin History of Present Illness: The patient is a 68 year old M with DM, presented to wound care for R pillai infected wound. Started about 5 weeks ago, had progressive redness, pain, swelling, mild drainage. No fever. Started on po abx without much help. Doxy was added, and redness and size much improved. Completed doxy about a week ago, and still showing progress. Full ROS performed and neg except as noted above. - Medical History Past Medical History (Chronic Problems): Chronic Problems Ulcer of right lower extremity with fat layer exposed (Chronic) Leg edema (Chronic) Diabetes (Chronic) Post-phlebitic syndrome (Chronic) Thromboembolism (Chronic) HLD (hyperlipidemia) (Chronic) Type II diabetes mellitus (Chronic) Benign essential hypertension (Chronic) Allergies/Adverse Reactions: Allergies No Known Allergies Allergy (Verified 06/04/17 14:56) Home Medications: Ambulatory Orders Medication Instructions Recorded Acarbose [Precose] 50 - 100 mg PO TIDCM 11/12/16 Atenolol [Tenormin (Beta Gabe)] 50 mg PO DAILY 11/12/16 Co Q10 200 [Co Q-10] 100 mg PO DAILY 11/12/16 Dulaglutide [Trulicity] 0.5 ml SQ WE 11/12/16 Losartan Potassium [Cozaar] 100 mg PO QHS 11/12/16 Magnesium Oxide [Magnesium] 400 mg PO DAILY 11/12/16 Warfarin [Coumadin (PBKC)] 3 mg PO MOWE 11/12/16 hydrALAZINE [Apresoline] 25 mg PO BID 11/12/16 Empagliflozin [Jardiance] 10 mg PO DAILY 06/04/17 Apixaban [Eliquis] 5 mg PO BID #74 tab 05/20/19 Cinnamon Bark [Cinnamon] 500 mg PO BID 05/20/19 Furosemide [Lasix] 20 mg PO DAILY 05/20/19 Glimepiride 4 mg PO BID 05/20/19 Red Yeast Rice 600 mg PO BID 05/20/19 Selenium 200 mcg PO DAILY 05/20/19 Spironolactone 50 mg PO DAILY 05/20/19 Warfarin Sodium 5 mg PO [id number] 05/20/19 - Social History Tobacco Use: non-smoker Vital Signs Temp Pulse Resp BP 95.9 F L 73 16 132/73 H 06/01/19 13:05 06/01/19 13:05 06/01/19 13:05 06/01/19 13:05 Oxygen Delivery Method Room Air Weight: 136.078 kg Body Mass Index (BMI) 39.5 - Other Studies Radiology: [] Other Studies: [] Route of nutrition/ use of supplements: [] Nutritional Intake: [] IV Site: [] Jett Catheter: [] - Physical Exam General: Alert, Oriented x3, Cooperative, No apparent distress HEENT: Atraumatic, PERRLA, EOMI Neck: Supple, No Nodes Lungs: Clear to auscultation, Normal air movement Cardiovascular: Regular rate, Regular Rhythm Abdomen: Soft, Non Tender, Non-Distended, Obese Extremities: Edema - minimal Skin: Ulcer/ Wound - R pillai, no purulence Musculoskeletal: No Tenderness to Palpation of Joints or Extremities Neurological: Cranial nerves II-XII grossly intact - Assessment/Plan Antibiotics: [] Assessment/Plan: [] Active and Suspected Problems Venous insufficiency (Suspected) Other specified peripheral vascular diseases (Suspected) Right leg pain (Acute) Malnutrition (Suspected) Cellulitis of right leg (Acute) R pillai infected wound - much improved, stable off of abx. Prior cx with VICKI, sens to doxy. He is to monitor for signs of worsening infection (redness, drainage, pain, swelling, fever). Cont wound care as planned. Will follow as needed, thank you, d/w Dr. Austin
[2019-06-08 13:09] VITALS: BP 124/67; PULSE 69; RESP 16; TEMP 36.2; BMI 39.5
--- NOTE | 2019-06-08 14:32 | PN.PCM_ITS ---
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: Chronic Current Visit: Yes Code(s): L97.912 - Non-pressure chronic ulcer of unspecified part of right lower leg with fat layer exposed (3) Leg edema Status: Chronic Current Visit: Yes Code(s): R60.0 - Localized edema (4) Venous insufficiency Status: Suspected Current Visit: Yes Code(s): I87.2 - Venous insufficiency (chronic) (peripheral) (5) Right leg pain Status: Acute Current Visit: Yes Code(s): M79.604 - Pain in right leg (6) Diabetes Status: Chronic Current Visit: Yes Qualifiers: Diabetes mellitus type: type 2 Code(s): E11.9 - Type 2 diabetes mellitus without complications (7) Malnutrition Status: Suspected Current Visit: Yes Code(s): E46 - Unspecified protein- calorie malnutrition Type of Wound Date of Service: 06/08/19 Chief Complaint: Right leg ulcer History of Wound: This 68-year-old male with significant past medical history of diabetes presented to the wound healing center complaining of a to need nonhealing ulcer. He was started on antibiotic which was not tolerated and then was further switched to doxycycline. He completed the course of doxycycline and relates continued inflammation and redness resolution compared to last week. His pain has decreased. He denies claudication. He denies rest burning, tingling, or numbness. He denies current fever, chill, nausea, vomiting. He obtain his arterial venous studies. It was noted that he had a new acute blood clot and previous chronic blood clots. He was seen in the emergency room for this and was switched to Eliquis anticoagulation plan. He did schedule a vascular referral as advised. He saw infectious disease last week he did not recommend continuation of antibiotics due to local improvement. There is a new skin opening to the front part of the pillai now. He denies trauma. Progress of Wound: Improving - Physical Exam Vital Signs Temp Pulse Resp BP 97.1 F L 69 16 124/67 H 06/08/19 13:09 06/08/19 13:09 06/08/19 13:09 06/08/19 13:09 General: Alert, Oriented x3, Cooperative, No apparent distress Extremities: No cyanosis, Capillary Refill Less than 3 Seconds, No Calf Tenderness - Negative Tony and Jenna signs present bilateral lower extremities. Compartments are soft to palpate right lower extremity., Diminished Peripheral Pulses, Edema, Tenderness - Pain with also manipulation Skin: Ulcer/ Wound - No purulence, erythema, streaking, odor, infection Wound Measurements and Assessment WC - Nurse 1 - General Ulcer Measurement Start: 05/18/19 10:35 Freq: Status: Active Protocol: Activity Type Activity Date Activity User E-Sign Co-Sign Detail Recorded Client Recorded Date Recorded By Document 06/08/19 13:09 [id number] 06/08/19 13:14 CS 06/08/19 13:09 Wound Center Nurse 1 [Ulcer Assessment] #2- RLE SUPERIOR -Combined with other wound No -Current Size (cm) - Length 0.9 -Current Size (cm) - Width 1.3 -Current Size (cm) - Depth 0.1 -Total Square Cm 1.17 -Date of Last Picture (Recall this 06/08/19 field) -Photo Taken Yes -Epithelialization Small 1-33% -Tunneling No -Undermining/Tunneling No -Circular Undermining No -Exudate Amt Small -Exudate Type Serosanguineous -Wound Margin Flat & Intact -Granulation Amt Large (67-100%) -Granulation Quality Red -Slough/Fibrin Yes -Necrosis Amt Small (1-33%) -Necrotic Tissue Type Adherent Slough -Texture (Mandy-wound Skin Appearance) Assessed, Scarring -Moisture (Mandy-wound Skin Appearance Assessed,Dry/ ) Scaly -Color (Mandy-wound Skin Appearance) Assessed, Erythema -Temperature (Mandy-wound Skin No Abnormality Appearance) (Pt Warm) -Tenderness on Palpation (Mandy-wound Yes Skin Appearance) -Ulcer Cleansing Rinsed/ Irrigated with Saline -Foul Odor after Cleansing No -Anesthetic Used 4% Lidocaine Solution #1 RLE -Combined with other wound No -Current Size (cm) - Length 3.2 -Current Size (cm) - Width 2.7 -Current Size (cm) - Depth 0.4 -Total Square Cm 8.64 -Photo Taken No -Epithelialization None Present -Tunneling No -Undermining/Tunneling No -Circular Undermining No -Exudate Amt Medium -Exudate Type Serosanguineous -Wound Margin Thickened -Granulation Amt Medium (34-66%) -Granulation Quality [place] -Slough/Fibrin Yes -Necrosis Amt Medium (34-66%) -Necrotic Tissue Type Adherent Slough -Texture (Mandy-wound Skin Appearance) Assessed, Scarring -Moisture (Mandy-wound Skin Appearance Assessed ) -Color (Mandy-wound Skin Appearance) Assessed, Erythema -Temperature (Mandy-wound Skin No Abnormality Appearance) (Pt Warm) -Tenderness on Palpation (Mandy-wound Yes Skin Appearance) -Ulcer Cleansing Rinsed/ Irrigated with Saline -Foul Odor after Cleansing No -Anesthetic Used 4% Lidocaine Solution [Edema Assessment] -Lower Limb Edema Present Yes -Right Calf (cm) 44 -Right Ankle (cm) 27 WC - Nurse 2 - General Ulcer CM Notes Start: 05/18/19 10:35 Freq: Status: Active Protocol: Activity Type Activity Date Activity User E-Sign Co-Sign Detail Recorded Client Recorded Date Recorded By Document 06/08/19 13:47 AN [id number] 06/08/19 13:49 AN 06/08/19 13:47 Wound Center Nurse 2 [Procedure/Treatment] #2- RLE SUPERIOR -Time 13:48 -Correct Patient Yes -Correct Side, Site, Position Yes -Correct Procedure Yes -Procedure Performed Yes -Type of Procedure Debridement -Clinical Debridement Subcutaneous -Post Debridement Size (cm) - Length 1.0 -Post Debridement Size (cm) - Width 1.4 -Post Debridement Size (cm) - Depth 0.1 -Total Square Cm 1.40 -Wound/Ulcer Outcome Not Healed -Bleeding Controlled with Pressure -Offloading No -Treatment Response Procedure Tolerated Well #1 RLE -Time 13:48 -Correct Patient Yes -Correct Side, Site, Position Yes -Correct Procedure Yes -Procedure Performed Yes -Type of Procedure Debridement -Clinical Debridement Subcutaneous -Post Debridement Size (cm) - Length 3.3 -Post Debridement Size (cm) - Width 2.8 -Post Debridement Size (cm) - Depth 0.4 -Total Square Cm 9.24 -Wound/Ulcer Outcome Not Healed -Ulcer Cleansing Rinsed/ Irrigated with Saline -Foul Odor after Cleansing No -Bleeding Controlled with Pressure -Offloading No -Treatment Response Procedure Tolerated Well [See Physician Procedure note for Specifics] Pain Scale: 0-10 Numeric [Pain] -Is Patient Pain Free? Yes Musculoskeletal: No Tenderness to Palpation of Joints or Extremities, Muscle Wasting Neurological: Sensory exam intact to light touch and pain Psych/Mental Status: Normal Affect, Appropriate Debridement Note Post-Debridement Measurements/Treatment WC - Nurse 2 - General Ulcer CM Notes Start: 05/18/19 10:35 Freq: Status: Active Protocol: Activity Type Activity Date Activity User E-Sign Co-Sign Detail Recorded Client Recorded Date Recorded By Document 05/18/19 10:49 AN [id number] 05/18/19 10:58 AN Document 06/01/19 13:31 JF [id number] 06/01/19 13:32 JF Document 06/08/19 13:47 AN [id number] 06/08/19 13:49 AN 05/18/19 06/01/19 06/08/19 10:49 13:31 13:47 Wound Center Nurse 2 #2- RLE SUPERIOR -Time 13:48 -Correct Patient Yes -Correct Side, Site, Position Yes -Correct Procedure Yes -Procedure Performed Yes -Type of Procedure Debridement -Clinical Debridement Subcutaneous -Post Debridement Size (cm) - Length 1.0 -Post Debridement Size (cm) - Width 1.4 -Post Debridement Size (cm) - Depth 0.1 -Total Square Cm 1.40 -Wound/Ulcer Outcome Not Healed -Bleeding Controlled with Pressure -Offloading No -Treatment Response Procedure Tolerated Well #1 RLE -Time 10:50 13:31 13:48 -Correct Patient Yes Yes Yes -Correct Side, Site, Position Yes Yes Yes -Correct Procedure Yes Yes Yes -Procedure Performed Yes Yes Yes -Type of Procedure Debridement Debridement Debridement -Clinical Debridement Subcutaneous Subcutaneous Subcutaneous -Post Debridement Size (cm) - Length 3.0 3.3 3.3 -Post Debridement Size (cm) - Width 1.8 2.6 2.8 -Post Debridement Size (cm) - Depth 0.5 0.6 0.4 -Total Square Cm 5.40 8.58 9.24 -Wound/Ulcer Outcome Not Healed Not Healed Not Healed -Ulcer Cleansing Rinsed/ Rinsed/ Rinsed/ Irrigated with Irrigated with Irrigated with Saline Saline Saline -Foul Odor after Cleansing No No No -Bioengineered Tissue No No -Bleeding Controlled with Pressure Pressure Pressure -Offloading No No No -Treatment Response Procedure Procedure Procedure Tolerated Well Tolerated Well Tolerated Well Pain Scale: 0-10 Numeric Is Patient Pain Free? Yes Yes Yes Wound debrided: leg Laterality: Right Wound Grade/Stage: grade 1 Type of Debridement: Excisional debridement Anesthesia Used: 5% Lidocaine Gel Depth: in the subcutaneous layer Percentage of wound debrided: 100 Instrument Used: #15 blade Tissue Removed: fibrous, devitalized subcutaneous, biofilm, slough Severity: Fat Layer Exposed Amount of bleeding with debridement: Mild Bleeding Controlled with: Pressure Patient tolerated procedure well - Additional Wound Wound debrided: anterior leg Laterality: Right Wound Grade/Stage: grade 1 Type of Debridement: Excisional debridement Anesthesia Used: 5% Lidocaine Gel Depth: in the subcutaneous layer Percentage of wound debrided: 100 Instrument Used: #15 blade Tissue Removed: fibrous, devitalized subcutaneous, biofilm, slough Severity: Fat Layer Exposed Amount of bleeding with debridement: Mild Bleeding Controlled with: Pressure Patient tolerated procedure: Patient tolerated procedure well Assessment/Plan Active Problems Ulcer of right lower extremity with fat layer exposed (Chronic) Leg edema (Chronic) Right leg pain (Acute) Diabetes (Chronic) Assessment: Right leg ulcer, with fat layer exposed, with cellulitis resolved. Leg edema bilateral. Venous insufficiency. Chronic and acute deep venous thrombosis. Malnutrition suspected. Diabetes Plan: I reviewed and discussed his case. Excisional subcutaneous debridement was performed to the right leg as noted in the clinical panel. His CBC and CMP from earlier this month were reviewed without leukocytosis. It is noted his white blood cell count is 9.6 and his creatinine is 1.84. His last hemoglobin A1c was recently 7.8%. It is noted he completed a course of doxycycline . The culture results were reviewed with staph epidermidis sensitive to doxycycline. I do not recommend refill of antibiotics. He did also follow-up with infectious disease last week as advised. Additional antibiotics are not recommended at this time. This will be monitored closely. I recommend washing the wound daily with antimicrobial soap as well and to change dressing daily with Aquacel Ag. It is noted that the wound is deeper and extending into the fat layer of the leg. He inquires about hyperbaric oxygen therapy as a treatment option. He has not been qualifying diagnoses which would be a grade 3 ulcer (infected muscle or bone); he does not have the status at this time. To keep pressure off of this ulcer site by avoiding laying on the right limb. I also recommend a reduction of swelling to reduce pressure. To wear Tubigrip's which was dispensed today. To elevate the limbs at rest and to avoid idle sitting or standing. Venous insufficiency work-up with a venous duplex Doppler for reflux evaluation was completed and incompetent veins are noted. I recommend referral to vascular specialist, Dr. Perez. This has been scheduled. His acute and chronic blood clots were also noted and this is already been addressed. He is been switched from Coumadin to Eliquis. He will follow-up with his primary care physician in regards to this. noninvasive arterial studies were additionally ordered and they appear to demonstrate overall normal perfusion to the lower extremities. I recommend nutritional supplementation to optimize healing in addition to proper glycemic control. A prescription for Caleb nutritional supplementation was provided previously and he was advised on proper use. I answered his questions. To return to the wound healing center in 1 week or call sooner if he has any questions or concerns.
[2019-06-15 08:31] VITALS: BP 130/67; PULSE 70; RESP 16; TEMP 35.7; BMI 39.5
--- NOTE | 2019-06-15 09:23 | PCM.WC.PN ---
(1) Ulcer of right lower extremity with fat layer exposed Status: Chronic Code(s): L97.912 - Non-pressure chronic ulcer of unspecified part of right lower leg with fat layer exposed (2) Leg edema Status: Chronic Code(s): R60.0 - Localized edema (3) Venous insufficiency Status: Suspected Code(s): I87.2 - Venous insufficiency (chronic) (peripheral) (4) Right leg pain Status: Acute Code(s): M79.604 - Pain in right leg (5) Diabetes Status: Chronic Qualifiers: Diabetes mellitus type: type 2 Code(s): E11.9 - Type 2 diabetes mellitus without complications (6) Malnutrition Status: Suspected Code(s): E46 - Unspecified protein-calorie malnutrition Type of Wound Date of Service: 06/15/19 Chief Complaint: Right leg ulcer History of Wound: This 68-year-old male with significant past medical history of diabetes presented to the wound healing center complaining of a to need nonhealing ulcer. He was started on antibiotic which was not tolerated and then was further switched to doxycycline. He completed the course of doxycycline and relates resolved inflammation and redness. His pain has decreased. He denies claudication. He denies rest burning, tingling, or numbness. He denies current fever, chill, nausea, vomiting. He obtain his arterial venous studies. It was noted that he has recent acute blood clot and previous chronic blood clots. He was seen in the emergency room for this and was switched to Eliquis anticoagulation plan. This is continued. He did schedule a vascular referral as advised. He saw infectious disease recently and it was not recommended to continue antibiotics due to local improvement. He is with his today. Progress of Wound: Improving - Physical Exam Vital Signs Temp Pulse Resp BP 96.2 F L 70 16 130/67 H 06/15/19 08:31 06/15/19 08:31 06/15/19 08:31 06/15/19 08:31 General: Alert, Oriented x3, Cooperative, No apparent distress Extremities: No cyanosis, Capillary Refill Less than 3 Seconds, No Calf Tenderness - Negative Jenna and Tony sign. Compartments are soft to palpate, Diminished Peripheral Pulses, Edema Skin: Ulcer/ Wound - No purulence, odor, erythema, streaking, necrosis, deep tissue exposure, maceration, or undermining. There is improved granulation tissue and significant reduction in fibrous and eschar tissue. The peripheral skin is atrophic and there is chronic edema and hyperpigmentation Wound Measurements and Assessment WC - Nurse 1 - General Ulcer Measurement Start: 05/18/19 10:35 Freq: Status: Active Protocol: Activity Type Activity Date Activity User E-Sign Co-Sign Detail Recorded Client Recorded Date Recorded By Document 06/15/19 08:31 MW [id number] 06/15/19 08:47 MW 06/15/19 08:31 Wound Center Nurse 1 [Ulcer Assessment] #2- RLE SUPERIOR -Combined with other wound No -Current Size (cm) - Length 3.5 -Current Size (cm) - Width 2.8 -Current Size (cm) - Depth 0.1 -Total Square Cm 9.80 -Photo Taken No -Epithelialization None Present -Tunneling No -Undermining/Tunneling No -Circular Undermining No -Exudate Amt Small -Exudate Type Serosanguineous -Wound Margin Flat & Intact -Granulation Amt Large (67-100%) -Granulation Quality Red -Slough/Fibrin Yes -Necrosis Amt Small (1-33%) -Necrotic Tissue Type Adherent Slough -Structure Exposed N/A -Texture (Mandy-wound Skin Appearance) Assessed, Localized Edema -Moisture (Mandy-wound Skin Appearance No Abnormality, ) Assessed -Color (Mandy-wound Skin Appearance) No Abnormality, Assessed -Temperature (Mandy-wound Skin No Abnormality Appearance) (Pt Warm) -Ulcer Cleansing SOAP AND WATER -Foul Odor after Cleansing No -Anesthetic Used 4% Lidocaine Solution #1 RLE -Combined with other wound No -Current Size (cm) - Length 3.0 -Current Size (cm) - Width 2.2 -Current Size (cm) - Depth 0.5 -Total Square Cm 6.60 -Photo Taken No -Epithelialization None Present -Tunneling No -Undermining/Tunneling No -Circular Undermining No -Exudate Amt Small -Exudate Type Serosanguineous -Wound Margin Flat & Intact -Granulation Amt Medium (34-66%) -Granulation Quality N/A,Red -Slough/Fibrin No -Necrosis Amt Medium (34-66%) -Necrotic Tissue Type Adherent Slough -Structure Exposed N/A -Texture (Mandy-wound Skin Appearance) Assessed, Localized Edema -Moisture (Mandy-wound Skin Appearance Assessed ) -Color (Mandy-wound Skin Appearance) No Abnormality, Assessed -Temperature (Mandy-wound Skin No Abnormality Appearance) (Pt Warm) -Tenderness on Palpation (Mandy-wound No Skin Appearance) -Ulcer Cleansing SOAP AND WATER -Foul Odor after Cleansing No -Anesthetic Used 4% Lidocaine Solution [Edema Assessment] -Lower Limb Edema Present Yes -Right Calf (cm) 44.2 -Right Ankle (cm) 26.0 WC - Nurse 2 - General Ulcer CM Notes Start: 05/18/19 10:35 Freq: Status: Active Protocol: Activity Type Activity Date Activity User E-Sign Co-Sign Detail Recorded Client Recorded Date Recorded By Document 06/15/19 09:19 AN [id number] 06/15/19 09:21 AN 06/15/19 09:19 Wound Center Nurse 2 [Procedure/Treatment] #2- RLE SUPERIOR -Time 09:19 -Correct Patient Yes -Correct Side, Site, Position Yes -Correct Procedure Yes -Procedure Performed Yes -Type of Procedure Debridement -Clinical Debridement Subcutaneous -Post Debridement Size (cm) - Length 3.6 -Post Debridement Size (cm) - Width 2.9 -Post Debridement Size (cm) - Depth 0.1 -Total Square Cm 10.44 -Wound/Ulcer Outcome Not Healed -Ulcer Cleansing Rinsed/ Irrigated with Saline -Foul Odor after Cleansing No -Bioengineered Tissue No -Bleeding Controlled with Pressure -Offloading Yes -Treatment Response Procedure Tolerated Well #1 RLE -Time 09:20 -Correct Patient Yes -Correct Side, Site, Position Yes -Correct Procedure Yes -Procedure Performed Yes -Type of Procedure Debridement -Clinical Debridement Subcutaneous -Post Debridement Size (cm) - Length 3.1 -Post Debridement Size (cm) - Width 2.3 -Post Debridement Size (cm) - Depth 0.5 -Total Square Cm 7.13 -Wound/Ulcer Outcome Not Healed -Ulcer Cleansing Rinsed/ Irrigated with Saline -Foul Odor after Cleansing No -Bioengineered Tissue No -Bleeding Controlled with Pressure -Offloading No -Treatment Response Procedure Tolerated Well [See Physician Procedure note for Specifics] Pain Scale: 0-10 Numeric [Pain] -Is Patient Pain Free? Yes Musculoskeletal: No Tenderness to Palpation of Joints or Extremities, Muscle Wasting Neurological: - - Lack of normal epicritic sensation light touch Psych/Mental Status: Normal Affect, Appropriate Debridement Note Post-Debridement Measurements/Treatment WC - Nurse 2 - General Ulcer CM Notes Start: 05/18/19 10:35 Freq: Status: Active Protocol: Activity Type Activity Date Activity User E-Sign Co-Sign Detail Recorded Client Recorded Date Recorded By Document 05/18/19 10:49 AN [id number] 05/18/19 10:58 AN Document 06/01/19 13:31 JF [id number] 06/01/19 13:32 JF Document 06/08/19 13:47 AN [id number] 06/08/19 13:49 AN Document 06/15/19 09:19 AN [id number] 06/15/19 09:21 AN 05/18/19 06/01/19 06/08/19 10:49 13:31 13:47 Wound Center Nurse 2 #2- RLE SUPERIOR -Time 13:48 -Correct Patient Yes -Correct Side, Site, Position Yes -Correct Procedure Yes -Procedure Performed Yes -Type of Procedure Debridement -Clinical Debridement Subcutaneous -Post Debridement Size (cm) - Length 1.0 -Post Debridement Size (cm) - Width 1.4 -Post Debridement Size (cm) - Depth 0.1 -Total Square Cm 1.40 -Wound/Ulcer Outcome Not Healed -Ulcer Cleansing -Foul Odor after Cleansing -Bioengineered Tissue -Bleeding Controlled with Pressure -Offloading No -Treatment Response Procedure Tolerated Well #1 RLE -Time 10:50 13:31 13:48 -Correct Patient Yes Yes Yes -Correct Side, Site, Position Yes Yes Yes -Correct Procedure Yes Yes Yes -Procedure Performed Yes Yes Yes -Type of Procedure Debridement Debridement Debridement -Clinical Debridement Subcutaneous Subcutaneous Subcutaneous -Post Debridement Size (cm) - Length 3.0 3.3 3.3 -Post Debridement Size (cm) - Width 1.8 2.6 2.8 -Post Debridement Size (cm) - Depth 0.5 0.6 0.4 -Total Square Cm 5.40 8.58 9.24 -Wound/Ulcer Outcome Not Healed Not Healed Not Healed -Ulcer Cleansing Rinsed/ Rinsed/ Rinsed/ Irrigated with Irrigated with Irrigated with Saline Saline Saline -Foul Odor after Cleansing No No No -Bioengineered Tissue No No -Bleeding Controlled with Pressure Pressure Pressure -Offloading No No No -Treatment Response Procedure Procedure Procedure Tolerated Well Tolerated Well Tolerated Well Pain Scale: 0-10 Numeric Is Patient Pain Free? Yes Yes Yes 06/15/19 09:19 Wound Center Nurse 2 #2- RLE SUPERIOR -Time 09:19 -Correct Patient Yes -Correct Side, Site, Position Yes -Correct Procedure Yes -Procedure Performed Yes -Type of Procedure Debridement -Clinical Debridement Subcutaneous -Post Debridement Size (cm) - Length 3.6 -Post Debridement Size (cm) - Width 2.9 -Post Debridement Size (cm) - Depth 0.1 -Total Square Cm 10.44 -Wound/Ulcer Outcome Not Healed -Ulcer Cleansing Rinsed/ Irrigated with Saline -Foul Odor after Cleansing No -Bioengineered Tissue No -Bleeding Controlled with Pressure -Offloading Yes -Treatment Response Procedure Tolerated Well #1 RLE -Time 09:20 -Correct Patient Yes -Correct Side, Site, Position Yes -Correct Procedure Yes -Procedure Performed Yes -Type of Procedure Debridement -Clinical Debridement Subcutaneous -Post Debridement Size (cm) - Length 3.1 -Post Debridement Size (cm) - Width 2.3 -Post Debridement Size (cm) - Depth 0.5 -Total Square Cm 7.13 -Wound/Ulcer Outcome Not Healed -Ulcer Cleansing Rinsed/ Irrigated with Saline -Foul Odor after Cleansing No -Bioengineered Tissue No -Bleeding Controlled with Pressure -Offloading No -Treatment Response Procedure Tolerated Well Pain Scale: 0-10 Numeric Is Patient Pain Free? Yes Wound debrided: anterior leg Laterality: Right Wound Grade/Stage: grade 1 Type of Debridement: Excisional debridement Anesthesia Used: 5% Lidocaine Gel Depth: in the subcutaneous layer Percentage of wound debrided: 100 Instrument Used: #15 blade Tissue Removed: fibrous, devitalized subcutaneous, biofilm, slough Severity: Fat Layer Exposed Amount of bleeding with debridement: Mild Bleeding Controlled with: Pressure Patient tolerated procedure well Assessment/Plan Assessment: Right leg ulcer, with fat layer exposed-no cellulitis presently. Leg edema bilateral. Venous insufficiency. Chronic and acute deep venous thrombosis. Malnutrition suspected. Diabetes Plan: I reviewed and discussed his case. Excisional subcutaneous debridement was performed to the right leg as noted in the clinical panel. His CBC and CMP from earlier this month were reviewed without leukocytosis. It is noted his white blood cell count is 9.6 and his creatinine is 1.84. His last hemoglobin A1c was recently 7.8%. It is noted he completed a course of doxycycline . The culture results were reviewed with staph epidermidis sensitive to doxycycline. I do not recommend refill of antibiotics. He did also follow-up with infectious disease who does not recommend antibiotics. He is demonstrating recent clinical with ulcer quality and infection data resolved. This will be monitored closely. I recommend washing the wound daily with antimicrobial soap as well and to change dressing daily with Aquacel Ag. He inquires about hyperbaric oxygen therapy as a treatment option. He does not currently have a qualifying diagnoses which would be a grade 3 ulcer (infected muscle or bone). To keep pressure off of this ulcer site by avoiding laying on the right limb. I also recommend a reduction of swelling to reduce pressure. To wear Tubigrip's which was dispensed today. To elevate the limbs at rest and to avoid idle sitting or standing. Venous insufficiency work-up with a venous duplex Doppler for reflux evaluation was completed and incompetent veins are noted. I recommend referral to vascular specialist, Dr. Perez. This has been scheduled. His acute and chronic blood clots were also noted and this is already been addressed. He is been switched from Coumadin to Eliquis. He will follow-up with his primary care physician in regards to this. noninvasive arterial studies were additionally ordered and they appear to demonstrate overall normal perfusion to the lower extremities. I recommend nutritional supplementation to optimize healing in addition to proper glycemic control. A prescription for Caleb nutritional supplementation was provided previously and he was advised on proper use. I answered his questions. To return to the wound healing center in 1 week or call sooner if he has any questions or concerns.
== END 2019-06-16 23:59 ==
LOC: WC 08:45
PROVIDERS: Family Provider Family Medicine; PCP Family Medicine; Referring Provider Podiatrist; Visit Provider Podiatrist
DX: E11.622 Type 2 diabetes mellitus with other skin ulcer (principal); L97.812 Non-pressure chronic ulcer of other part of right lower leg with fat layer exposed; R60.0 Localized edema; I87.2 Venous insufficiency (chronic) (peripheral); E11.51 Type 2 diabetes mellitus with diabetic peripheral angiopathy without gangrene; I82.412 Acute embolism and thrombosis of left femoral vein; L03.115 Cellulitis of right lower limb; E78.5 Hyperlipidemia, unspecified; I10 Essential (primary) hypertension; Z79.01 Long term (current) use of anticoagulants; Z79.899 Other long term (current) drug therapy
CPT/HCPCS: 11042; 87070; 87075; 87077; 87176; 87186; 87205; 93922; 93923; 93970

== ENCOUNTER 2019-07-13 09:45 | Outpatient (RCR) | payer OTHER, SELFPAY ==
[2019-06-17 01:15] VITALS: BP 130/67; PULSE 70; RESP 16; TEMP 35.7; BMI 39.6
[2019-06-22 08:06] VITALS: BP 127/68; PULSE 68; RESP 18; TEMP 36; BMI 39.6
--- NOTE | 2019-06-22 08:53 | PN.PCM_ITS ---
(1) Ulcer of right lower extremity with fat layer exposed Status: Chronic Current Visit: Yes Code(s): L97.912 - Non-pressure chronic ulcer of unspecified part of right lower leg with fat layer exposed (2) Leg edema Status: Chronic Current Visit: Yes Code(s): R60.0 - Localized edema (3) Venous insufficiency Status: Chronic Current Visit: Yes Code(s): I87.2 - Venous insufficiency (chronic) (peripheral) (4) Diabetes Status: Chronic Current Visit: Yes Qualifiers: Diabetes mellitus type: type 2 Code(s): E11.9 - Type 2 diabetes mellitus without complications (5) Malnutrition Status: Suspected Current Visit: Yes Code(s): E46 - Unspecified protein- calorie malnutrition Type of Wound Date of Service: 06/22/19 Chief Complaint: Right leg ulcer History of Wound: This 68-year-old male with significant past medical history of diabetes presented to the wound healing center complaining of a to need nonhealing ulcer. His pain has decreased. He denies claudication. He denies rest burning, tingling, or numbness. He denies current fever, chill, nausea, vomiting. He obtain his arterial venous studies. It was noted that he has recent acute blood clot and previous chronic blood clots. He continues on Eliquis anticoagulation plan. This is continued. He did schedule a vascular referral as advised for his venous insufficiency and was advised to proceed with compression garments and a follow-up in [address] Sol provided a compression stocking prescription he is getting fitted later this week at [facility] (formerly [facility]). He saw infectious disease recently and it was not recommended to continue antibiotics due to local improvement. He had some irritation from his dressing and has some new ulcers around the main ulcer site today. He is with his today. Progress of Wound: Improving quality of initial ulcer and new satellite lesions - Physical Exam Vital Signs Temp Pulse Resp BP 96.8 F L 68 18 127/68 H 06/22/19 08:06 06/22/19 08:06 06/22/19 08:06 06/22/19 08:06 General: Alert, Oriented x3, Cooperative, No apparent distress HEENT: Atraumatic Extremities: No cyanosis, Capillary Refill Less than 3 Seconds, No Calf Tenderness, Diminished Peripheral Pulses, Edema Skin: Ulcer/ Wound - no purlence, no erythema, no necrosis, no exposed deep muscle or bone. There is an area of medial undermining that extends about 1.2 cm this is consistent with natural fascial plane and this anatomic area. There is also some new skin discontinuities at the apparent site of dressing application that is very superficial with some hemorrhagic and granulation tissue exposed. The peripheral skin is hairless atrophic and with hyperpigmentation. Wound Measurements and Assessment WC - Nurse 1 - General Ulcer Measurement Start: 06/22/19 08:06 Freq: Status: Active Protocol: Activity Type Activity Date Activity User E-Sign Co-Sign Detail Recorded Client Recorded Date Recorded By Document 06/22/19 08:06 DL [id number] 06/22/19 08:18 DL 06/22/19 08:06 Wound Center Nurse 1 [Ulcer Assessment] #2- RLE SUPERIOR -Current Size (cm) - Length 1.6 -Current Size (cm) - Width 1.4 -Current Size (cm) - Depth 0.1 -Total Square Cm 2.24 -Photo Taken No -Exudate Amt Small -Exudate Type Serosanguineous -Wound Margin Distinct, Outline Attached -Granulation Amt Small (1-33%) -Granulation Quality Red -Necrosis Amt Small (1-33%) -Necrotic Tissue Type Adherent Slough -Structure Exposed N/A -Texture (Mandy-wound Skin Appearance) Localized Edema -Moisture (Mandy-wound Skin Appearance Dry/Scaly ) -Color (Mandy-wound Skin Appearance) Erythema, Hemosiderin Staining -Temperature (Mandy-wound Skin No Abnormality Appearance) (Pt Warm) -Tenderness on Palpation (Mandy-wound No Skin Appearance) -Ulcer Cleansing Rinsed/ Irrigated with Saline -Foul Odor after Cleansing No -Anesthetic Used 5% Lidocaine Gel #1 right lower extremity--cluster -Current Size (cm) - Length 3 -Current Size (cm) - Width 2 -Current Size (cm) - Depth 0.6 -Total Square Cm 6 -Photo Taken No -Exudate Amt Medium -Exudate Type Serosanguineous -Wound Margin Thickened & Rolled Under -Granulation Amt Medium (34-66%) -Granulation Quality Red -Necrosis Amt Medium (34-66%) -Necrotic Tissue Type Adherent Slough -Structure Exposed N/A -Texture (Mandy-wound Skin Appearance) Localized Edema ,Scarring -Moisture (Mandy-wound Skin Appearance Dry/Scaly ) -Color (Mandy-wound Skin Appearance) Erythema -Temperature (Mandy-wound Skin No Abnormality Appearance) (Pt Warm) -Tenderness on Palpation (Mandy-wound No Skin Appearance) -Ulcer Cleansing Rinsed/ Irrigated with Saline -Foul Odor after Cleansing No -Anesthetic Used 5% Lidocaine Gel [Edema Assessment] -Right Calf (cm) 42.5 -Right Ankle (cm) 25.6 WC - Nurse 2 - General Ulcer CM Notes Start: 06/22/19 08:06 Freq: Status: Active Protocol: Activity Type Activity Date Activity User E-Sign Co-Sign Detail Recorded Client Recorded Date Recorded By Document 06/22/19 08:26 PASCUAL [id number] 06/22/19 08:29 06/22/19 08:26 Wound Center Nurse 2 [Procedure/Treatment] #2- RLE SUPERIOR -Time 08:26 -Correct Patient Yes -Correct Side, Site, Position Yes -Correct Procedure Yes -Procedure Performed Yes -Type of Procedure Debridement -Clinical Debridement Subcutaneous #1 right lower extremity--cluster -Time 08:27 -Correct Patient Yes -Correct Side, Site, Position Yes -Correct Procedure Yes -Procedure Performed Yes -Type of Procedure Debridement -Clinical Debridement Subcutaneous -Post Debridement Size (cm) - Length 10.5 -Post Debridement Size (cm) - Width 8.5 -Post Debridement Size (cm) - Depth 0.4 -Total Square Cm 89.25 -Wound/Ulcer Outcome Not Healed -Ulcer Cleansing Rinsed/ Irrigated with Saline -Foul Odor after Cleansing No -Bioengineered Tissue No -Bleeding Controlled with Pressure -Other Actual -Offloading No -Treatment Response Procedure Tolerated Well [See Physician Procedure note for Specifics] Pain Scale: 0-10 Numeric [Pain] -Is Patient Pain Free? Yes Musculoskeletal: No Tenderness to Palpation of Joints or Extremities, Muscle Wasting, - - Compartment soft to palpate Neurological: Sensory exam intact to light touch and pain, - Psych/Mental Status: Normal Affect, Appropriate Debridement Note Post-Debridement Measurements/Treatment - Nurse 2 - General Ulcer CM Notes Start: 06/22/19 08:06 Freq: Status: Active Protocol: Activity Type Activity Date Activity User E-Sign Co-Sign Detail Recorded Client Recorded Date Recorded By Document 06/22/19 08:26 PASCUAL [id number] 06/22/19 08:29 JF 06/22/19 08:26 Wound Center Nurse 2 #2- RLE SUPERIOR -Time 08:26 -Correct Patient Yes -Correct Side, Site, Position Yes -Correct Procedure Yes -Procedure Performed Yes -Type of Procedure Debridement -Clinical Debridement Subcutaneous #1 right lower extremity--cluster -Time 08:27 -Correct Patient Yes -Correct Side, Site, Position Yes -Correct Procedure Yes -Procedure Performed Yes -Type of Procedure Debridement -Clinical Debridement Subcutaneous -Post Debridement Size (cm) - Length 10.5 -Post Debridement Size (cm) - Width 8.5 -Post Debridement Size (cm) - Depth 0.4 -Total Square Cm 89.25 -Wound/Ulcer Outcome Not Healed -Ulcer Cleansing Rinsed/ Irrigated with Saline -Foul Odor after Cleansing No -Bioengineered Tissue No -Bleeding Controlled with Pressure -Other Actual -Offloading No -Treatment Response Procedure Tolerated Well Pain Scale: 0-10 Numeric Is Patient Pain Free? Yes Wound debrided: leg (new satellite) Laterality: Right Wound Grade/Stage: grade 1 Type of Debridement: Excisional debridement Anesthesia Used: 5% Lidocaine Gel Depth: in the subcutaneous layer Percentage of wound debrided: - - 25% Instrument Used: #15 blade Tissue Removed: fibrous, devitalized subcutaneous, biofilm, slough Severity: Fat Layer Exposed Amount of bleeding with debridement: Mild Bleeding Controlled with: Pressure Patient tolerated procedure well Assessment/Plan Active Problems Ulcer of right lower extremity with fat layer exposed (Chronic) Leg edema (Chronic) Venous insufficiency (Chronic) Diabetes (Chronic) Assessment: Right leg ulcer, with fat layer exposed-no cellulitis presently. Leg edema bilateral. Venous insufficiency. Chronic and acute deep venous thrombosis. Malnutrition suspected. Diabetes Plan: I reviewed and discussed his case. Excisional subcutaneous debridement was performed to the right leg as noted in the clinical panel. His CBC and CMP were previously reviewed without leukocytosis. It is noted his white blood cell count was 9.6 and his creatinine is 1.84. His last hemoglobin A1c was recently 7.8%. It is noted he completed a course of doxycycline and does not have cur rent infection at this time. The previous culture results were reviewed with staph epidermidis sensitive to doxycycline. I do not recommend refill of antibiotics. He did also follow-up with infectious disease who does not recommend antibiotics. This will be monitored closely. I recommend washing the wound daily with antimicrobial soap as well and to change dressing daily with Aquacel Ag. To keep pressure off of this ulcer site by avoiding laying on the right limb. I also recommend a reduction of swelling to reduce pressure. To wear Tubigrip's which was dispensed today. To obtain compression stockings as prescribed by vascular specialist, Dr. Perez. A donning device prescription was also provided. To elevate the limbs at rest and to avoid idle sitting or standing. Venous insufficiency work-up with a venous duplex Doppler for reflux evaluation was completed and incompetent veins are noted. To follow up with Dr. Perez as scheduled in 6 months. His acute and chronic blood clots were also noted and this is already been addressed. He is been switched from Coumadin to Eliquis. He will follow-up with his primary care physician in regards to this. noninvasive arterial studies were additionally ordered and they appear to demonstrate overall normal perfusion to the lower extremities. I recommend nutritional supplementation to optimize healing in addition to p franc glycemic control. A prescription for Caleb nutritional supplementation was provided previously and he was advised on proper use. I answered his questions. He has stabilized over the past several weeks and I recommend application of advanced wound healing product, epi cord and then later transition and epi fix. This is medically necessary to optimize wound healing. He is at risk for limb loss. Prior authorization will be initiated. We discussed the indication, planned procedure, anticipated healing time and management. He is amendable to proceed. To return to the wound healing center in 1 week or call sooner if he has any questions or concerns.
[2019-06-29 13:26] VITALS: BP 135/71; PULSE 72; RESP 18; TEMP 36.1; BMI 39.6
--- NOTE | 2019-06-29 14:30 | PCM.WC.PN ---
(1) Ulcer of right lower extremity with fat layer exposed Status: Chronic Current Visit: Yes Code(s): L97.912 - Non-pressure chronic ulcer of unspecified part of right lower leg with fat layer exposed (2) Leg edema Status: Chronic Current Visit: Yes Code(s): R60.0 - Localized edema (3) Venous insufficiency Status: Chronic Current Visit: Yes Code(s): I87.2 - Venous insufficiency (chronic) (peripheral) (4) Diabetes Status: Chronic Current Visit: Yes Qualifiers: Diabetes mellitus type: type 2 Code(s): E11.9 - Type 2 diabetes mellitus without complications (5) Malnutrition Status: Suspected Current Visit: Yes Code(s): E46 - Unspecified protein-calorie malnutrition Type of Wound Date of Service: 06/29/19 Chief Complaint: Right leg ulcer History of Wound: This 68-year-old male with significant past medical history of diabetes presented to the wound healing center complaining of a to need nonhealing ulcer. His pain has decreased. He denies claudication. He denies rest burning, tingling, or numbness. He denies current fever, chill, nausea, vomiting. He obtain his arterial venous studies. It was noted that he has recent acute blood clot and previous chronic blood clots. He continues on Eliquis anticoagulation plan. This is continued. He did schedule a vascular referral as advised for his venous insufficiency and was advised to proceed with compression garments and a follow-up in [address] Perez provided a compression stocking prescription and did obtain these. He saw infectious disease recently and it was not recommended to continue antibiotics due to local improvement. He is with his today. Progress of Wound: Improving - Physical Exam Vital Signs Temp Pulse Resp BP 97.0 F L 72 18 135/71 H 06/29/19 13:26 06/29/19 13:26 06/29/19 13:26 06/29/19 13:26 General: Alert, Oriented x3, Cooperative, No apparent distress HEENT: Atraumatic Extremities: No cyanosis, Capillary Refill Less than 3 Seconds, No Calf Tenderness - Compartment soft to palpate right lower extremity, Diminished Peripheral Pulses, Edema - Decreased right leg Skin: Ulcer/ Wound - No purulence, erythema, string, odor, infection. There is decreased undermining to the medial aspect of the ulcer site no exposed muscle, maceration tissue or other deeper tissue. Progressive granulation tissue is noted. The peripheral skin is hairless, atrophic, and hyperpigmented Wound Measurements and Assessment - Nurse 1 - General Ulcer Measurement Start: 06/22/19 08:06 Freq: Status: Active Protocol: Activity Type Activity Date Activity User E-Sign Co-Sign Detail Recorded Client Recorded Date Recorded By Document 06/29/19 13:26 SC [id number] 06/29/19 13:34 SC 06/29/19 13:26 Wound Center Nurse 1 [Ulcer Assessment] #1 right lower extremity--cluster -Current Size (cm) - Length 7.0 -Current Size (cm) - Width 2.4 -Current Size (cm) - Depth 0.2 -Total Square Cm 16.80 -Exudate Amt Small -Exudate Type Serosanguineous -Wound Margin Thickened & Rolled Under -Granulation Amt Medium (34-66%) -Granulation Quality Pale,[place] -Necrosis Amt Medium (34-66%) -Necrotic Tissue Type Adherent Slough -Texture (Mandy-wound Skin Appearance) Assessed, Localized Edema ,Scarring -Moisture (Mandy-wound Skin Appearance Assessed, ) Maceration -Color (Mandy-wound Skin Appearance) Assessed -Temperature (Mandy-wound Skin No Abnormality Appearance) (Pt Warm) -Tenderness on Palpation (Mandy-wound No Skin Appearance) -Ulcer Cleansing Rinsed/ Irrigated with Saline -Foul Odor after Cleansing No -Anesthetic Used 4% Lidocaine Solution [Edema Assessment] -Right Calf (cm) 42.5 -Right Ankle (cm) 25.6 - Nurse 2 - General Ulcer CM Notes Start: 06/22/19 08:06 Freq: Status: Active Protocol: Activity Type Activity Date Activity User E-Sign Co-Sign Detail Recorded Client Recorded Date Recorded By Document 06/29/19 14:25 [id number] 06/29/19 14:28 06/29/19 14:25 Wound Center Nurse 2 [Procedure/Treatment] #2- RLE SUPERIOR -Time 14:27 -Correct Patient Yes -Correct Side, Site, Position Yes -Correct Procedure Yes -Procedure Performed Yes -Type of Procedure Debridement -Clinical Debridement Subcutaneous -Post Debridement Size (cm) - Length 1.7 -Post Debridement Size (cm) - Width 0.8 -Post Debridement Size (cm) - Depth 0.2 -Total Square Cm 1.36 -Wound/Ulcer Outcome Not Healed -Ulcer Cleansing Rinsed/ Irrigated with Saline -Foul Odor after Cleansing No -Bioengineered Tissue No -Bleeding Controlled with Pressure -Offloading No -Treatment Response Procedure Tolerated Well #1 RLE -Time 14:28 -Correct Patient Yes -Correct Side, Site, Position Yes -Correct Procedure Yes -Procedure Performed Yes -Type of Procedure Debridement -Clinical Debridement Subcutaneous -Post Debridement Size (cm) - Length 3.2 -Post Debridement Size (cm) - Width 2.4 -Post Debridement Size (cm) - Depth 0.3 -Total Square Cm 7.68 -Wound/Ulcer Outcome Not Healed -Ulcer Cleansing Rinsed/ Irrigated with Saline -Foul Odor after Cleansing No -Bioengineered Tissue No -Bleeding Controlled with Pressure -Offloading No -Treatment Response Procedure Tolerated Well [See Physician Procedure note for Specifics] Pain Scale: 0-10 Numeric [Pain] -Is Patient Pain Free? Yes Musculoskeletal: No Tenderness to Palpation of Joints or Extremities, Muscle Wasting Neurological: Sensory exam intact to light touch and pain Psych/Mental Status: Normal Affect, Appropriate Debridement Note Post-Debridement Measurements/Treatment WC - Nurse 2 - General Ulcer CM Notes Start: 06/22/19 08:06 Freq: Status: Active Protocol: Activity Type Activity Date Activity User E-Sign Co-Sign Detail Recorded Client Recorded Date Recorded By Document 06/22/19 08:26 [id number] 06/22/19 08:29 Document 06/29/19 14:25 [id number] 06/29/19 14:28 06/22/19 06/29/19 08:26 14:25 Wound Center Nurse 2 #2- RLE SUPERIOR -Time 08:26 14:27 -Correct Patient Yes Yes -Correct Side, Site, Position Yes Yes -Correct Procedure Yes Yes -Procedure Performed Yes Yes -Type of Procedure Debridement Debridement -Clinical Debridement Subcutaneous Subcutaneous -Post Debridement Size (cm) - Length 1.7 -Post Debridement Size (cm) - Width 0.8 -Post Debridement Size (cm) - Depth 0.2 -Total Square Cm 1.36 -Wound/Ulcer Outcome Not Healed -Ulcer Cleansing Rinsed/ Irrigated with Saline -Foul Odor after Cleansing No -Bioengineered Tissue No -Bleeding Controlled with Pressure -Offloading No -Treatment Response Procedure Tolerated Well #1 right lower extremity--cluster -Time 08:27 -Correct Patient Yes -Correct Side, Site, Position Yes -Correct Procedure Yes -Procedure Performed Yes -Type of Procedure Debridement -Clinical Debridement Subcutaneous -Post Debridement Size (cm) - Length 10.5 -Post Debridement Size (cm) - Width 8.5 -Post Debridement Size (cm) - Depth 0.4 -Total Square Cm 89.25 -Wound/Ulcer Outcome Not Healed -Ulcer Cleansing Rinsed/ Irrigated with Saline -Foul Odor after Cleansing No -Bioengineered Tissue No -Bleeding Controlled with Pressure -Other Actual -Offloading No -Treatment Response Procedure Tolerated Well #1 RLE -Time 14:28 -Correct Patient Yes -Correct Side, Site, Position Yes -Correct Procedure Yes -Procedure Performed Yes -Type of Procedure Debridement -Clinical Debridement Subcutaneous -Post Debridement Size (cm) - Length 3.2 -Post Debridement Size (cm) - Width 2.4 -Post Debridement Size (cm) - Depth 0.3 -Total Square Cm 7.68 -Wound/Ulcer Outcome Not Healed -Ulcer Cleansing Rinsed/ Irrigated with Saline -Foul Odor after Cleansing No -Bioengineered Tissue No -Bleeding Controlled with Pressure -Offloading No -Treatment Response Procedure Tolerated Well Pain Scale: 0-10 Numeric Is Patient Pain Free? Yes Yes Wound debrided: leg Laterality: Right Wound Grade/Stage: grade 1 Type of Debridement: Excisional debridement Anesthesia Used: 5% Lidocaine Gel Depth: in the subcutaneous layer Percentage of wound debrided: 100 Instrument Used: #15 blade Tissue Removed: fibrous, devitalized subcutaneous, biofilm, slough Severity: Fat Layer Exposed Amount of bleeding with debridement: Mild Bleeding Controlled with: Pressure Patient tolerated procedure well Assessment/Plan Active Problems Ulcer of right lower extremity with fat layer exposed (Chronic) Leg edema (Chronic) Venous insufficiency (Chronic) Diabetes (Chronic) Assessment: Right leg ulcer, with fat layer exposed-no cellulitis presently. Leg edema bilateral. Venous insufficiency. Chronic and acute deep venous thrombosis. Malnutrition suspected. Diabetes Plan: I reviewed and discussed his case. Excisional subcutaneous debridement was performed to the right leg as noted in the clinical panel. His CBC and CMP were previously reviewed without leukocytosis. It is noted his white blood cell count was 9.6 and his creatinine is 1.84. His last hemoglobin A1c was recently 7.8%. It is noted he completed a course of doxycycline and does not have current infection at this time. The previous culture results were reviewed with staph epidermidis sensitive to doxycycline. I do not recommend refill of antibiotics. He did also follow-up with infectious disease who does not recommend antibiotics. This will be monitored closely. I recommend washing the wound daily with antimicrobial soap as well and to change dressing daily with Aquacel Ag. To keep pressure off of this ulcer site by avoiding laying on the right limb. I also recommend a reduction of swelling to reduce pressure. To continue to wear compression stockings that he recently obtained and use a donning device to help with applications. Venous insufficiency work-up with a venous duplex Doppler for reflux evaluation was completed and incompetent veins are noted. To follow up with Dr. Perez as scheduled in 6 months. His acute and chronic blood clots were also noted and this is already been addressed. He is been switched from Coumadin to Eliquis. He will follow-up with his primary care physician in regards to this. noninvasive arterial studies were additionally ordered and they appear to demonstrate overall normal perfusion to the lower extremities. I recommend nutritional supplementation to optimize healing in addition to proper glycemic control. A prescription for Caleb nutritional supplementation was provided previously and he was advised on proper use. I answered his questions. He has stabilized over the past several weeks and I recommend application of advanced wound healing product, epi cord and then later transition and epi fix. This is medically necessary to optimize wound healing. He is at risk for limb loss. Prior authorization has been initiated and this is still pending. We discussed the indication, planned procedure, anticipated healing time and management. He is amendable to proceed. To return to the wound healing center in 1 week or call sooner if he has any questions or concerns.
[2019-07-06 14:53] VITALS: BP 139/71; PULSE 72; RESP 16; TEMP 36; BMI 39.6
--- NOTE | 2019-07-07 19:16 | PCM.WC.PN ---
(1) Ulcer of right lower extremity with fat layer exposed Status: Chronic Current Visit: Yes Code(s): L97.912 - Non-pressure chronic ulcer of unspecified part of right lower leg with fat layer exposed (2) Leg edema Status: Chronic Current Visit: Yes Code(s): R60.0 - Localized edema (3) Venous insufficiency Status: Chronic Current Visit: Yes Code(s): I87.2 - Venous insufficiency (chronic) (peripheral) (4) Diabetes Status: Chronic Current Visit: Yes Qualifiers: Diabetes mellitus type: type 2 Code(s): E11.9 - Type 2 diabetes mellitus without complications (5) Malnutrition Status: Suspected Current Visit: Yes Code(s): E46 - Unspecified protein-calorie malnutrition Type of Wound Date of Service: 07/06/19 Chief Complaint: Right leg ulcer History of Wound: This 68-year-old male with significant past medical history of diabetes presented to the wound healing center complaining of a to need nonhealing ulcer. His pain has decreased. He denies claudication. He denies rest burning, tingling, or numbness. He denies current fever, chill, nausea, vomiting. He obtain his arterial venous studies. It was noted that he has recent acute blood clot and previous chronic blood clots. He continues on Eliquis anticoagulation plan. This is continued. He did schedule a vascular referral as advised for his venous insufficiency and was advised to proceed with compression garments and a follow-up in [address] Perez provided a compression stocking prescription and did obtain these. He is with his today. He is ready to proceed with epifix application today. Progress of Wound: Improving - Physical Exam Vital Signs Temp Pulse Resp BP 96.8 F L 72 16 139/71 H 07/06/19 14:53 07/06/19 14:53 07/06/19 14:53 07/06/19 14:53 General: Alert, Oriented x3, Cooperative, No apparent distress Extremities: No cyanosis, Capillary Refill Less than 3 Seconds, No Calf Tenderness, Diminished Peripheral Pulses, Edema Skin: Ulcer/ Wound - No purulence, erythema, streaking, no odor, no infection. Improved granulation tissues noted. Peripheral ulcer skin is friable with excoriations and a new sub-hemorrhagic and granular base skin discontinuity or ulcers noted. He does have some hyperpigmentation surrounding the wound as well. There is no exposed bone or muscle. Wound Measurements and Assessment WC - Nurse 1 - General Ulcer Measurement Start: 06/22/19 08:06 Freq: Status: Active Protocol: Activity Type Activity Date Activity User E-Sign Co-Sign Detail Recorded Client Recorded Date Recorded By Document 07/06/19 14:53 [facility] [id number] 07/06/19 15:07 [facility] 07/06/19 14:53 Wound Center Nurse 1 [Ulcer Assessment] #2- RLE SUPERIOR -Combined with other wound No -Current Size (cm) - Length 1 -Current Size (cm) - Width 0.5 -Current Size (cm) - Depth 0.2 -Total Square Cm 0.5 -Photo Taken No -Epithelialization None Present -Tunneling No -Undermining/Tunneling No -Circular Undermining No -Exudate Amt Small -Exudate Type Serosanguineous -Wound Margin Flat & Intact -Granulation Amt Small (1-33%) -Granulation Quality Red -Slough/Fibrin Yes -Necrosis Amt Large (67-100%) -Necrotic Tissue Type Eschar -Texture (Mandy-wound Skin Appearance) Assessed, Scarring -Moisture (Mandy-wound Skin Appearance Assessed,Dry/ ) Scaly -Color (Mandy-wound Skin Appearance) Assessed -Temperature (Mandy-wound Skin No Abnormality Appearance) (Pt Warm) -Tenderness on Palpation (Mandy-wound Yes Skin Appearance) -Ulcer Cleansing Rinsed/ Irrigated with Saline -Foul Odor after Cleansing No -Anesthetic Used 5% Lidocaine Gel #1 RLE -Combined with other wound No -Current Size (cm) - Length 2.9 -Current Size (cm) - Width 2 -Current Size (cm) - Depth 0.4 -Total Square Cm 5.8 -Photo Taken No -Epithelialization None Present -Tunneling No -Undermining/Tunneling No -Circular Undermining No -Exudate Amt Small -Exudate Type Serosanguineous -Wound Margin Distinct, Outline Attached -Granulation Amt Medium (34-66%) -Granulation Quality Red -Slough/Fibrin Yes -Necrosis Amt Medium (34-66%) -Necrotic Tissue Type Adherent Slough -Texture (Mandy-wound Skin Appearance) Assessed, Scarring -Moisture (Mandy-wound Skin Appearance Assessed,Dry/ ) Scaly -Color (Mandy-wound Skin Appearance) Assessed -Temperature (Mandy-wound Skin No Abnormality Appearance) (Pt Warm) -Tenderness on Palpation (Mandy-wound No Skin Appearance) -Ulcer Cleansing Rinsed/ Irrigated with Saline -Foul Odor after Cleansing No -Anesthetic Used 5% Lidocaine Gel [Edema Assessment] -Lower Limb Edema Present Yes -Right Calf (cm) 42.9 -Right Ankle (cm) 26.4 WC - Nurse 2 - General Ulcer CM Notes Start: 06/22/19 08:06 Freq: Status: Active Protocol: Activity Type Activity Date Activity User E-Sign Co-Sign Detail Recorded Client Recorded Date Recorded By Document 07/06/19 15:20 [email or web address] [id number] 07/06/19 15:26 PASCUAL 07/06/19 15:20 Wound Center Nurse 2 [Procedure/Treatment] #2- RLE SUPERIOR -Time 15:20 -Correct Patient Yes -Correct Side, Site, Position Yes -Correct Procedure Yes -Procedure Performed Yes -Type of Procedure Debridement -Clinical Debridement Subcutaneous -Post Debridement Size (cm) - Length 1 -Post Debridement Size (cm) - Width 0.6 -Post Debridement Size (cm) - Depth 0.2 -Total Square Cm 0.6 -Wound/Ulcer Outcome Not Healed -Ulcer Cleansing Rinsed/ Irrigated with Saline -Foul Odor after Cleansing No -Bioengineered Tissue Yes -Type of bioengineered Tissue EPIFIX -Expiration Date 12/16/23 -Product Lot Number [id number] -Percent Used 100 -Saline Lot Number [id number] -Bleeding Controlled with Pressure -Offloading No -Treatment Response Procedure Tolerated Well #1 RLE -Time 15:24 -Correct Patient Yes -Correct Side, Site, Position Yes -Correct Procedure Yes -Procedure Performed Yes -Type of Procedure Debridement -Clinical Debridement Subcutaneous -Post Debridement Size (cm) - Length 3 -Post Debridement Size (cm) - Width 2 -Post Debridement Size (cm) - Depth 0.4 -Total Square Cm 6 -Wound/Ulcer Outcome Not Healed -Ulcer Cleansing Rinsed/ Irrigated with Saline -Foul Odor after Cleansing No -Bioengineered Tissue Yes -Type of bioengineered Tissue EPIFIX -Expiration Date 12/16/23 -Product Lot Number [id number] -Percent Used 100 -Saline Lot Number [id number] [See Physician Procedure note for Specifics] Musculoskeletal: No Tenderness to Palpation of Joints or Extremities, Muscle Wasting, - - Compartment soft to palpate Neurological: Sensory exam intact to light touch and pain Psych/Mental Status: Normal Affect, Appropriate Debridement Note Post-Debridement Measurements/Treatment WC - Nurse 2 - General Ulcer CM Notes Start: 06/22/19 08:06 Freq: Status: Active Protocol: Activity Type Activity Date Activity User E-Sign Co-Sign Detail Recorded Client Recorded Date Recorded By Document 06/22/19 08:26 [id number] 06/22/19 08:29 Document 06/29/19 14:25 [id number] 06/29/19 14:28 Document 07/06/19 15:20 [id number] 07/06/19 15:26 06/22/19 06/29/19 07/06/19 08:26 14:25 15:20 Wound Center Nurse 2 #2- RLE SUPERIOR -Time 08:26 14:27 15:20 -Correct Patient Yes Yes Yes -Correct Side, Site, Position Yes Yes Yes -Correct Procedure Yes Yes Yes -Procedure Performed Yes Yes Yes -Type of Procedure Debridement Debridement Debridement -Clinical Debridement Subcutaneous Subcutaneous Subcutaneous -Post Debridement Size (cm) - Length 1.7 1 -Post Debridement Size (cm) - Width 0.8 0.6 -Post Debridement Size (cm) - Depth 0.2 0.2 -Total Square Cm 1.36 0.6 -Wound/Ulcer Outcome Not Healed Not Healed -Ulcer Cleansing Rinsed/ Rinsed/ Irrigated with Irrigated with Saline Saline -Foul Odor after Cleansing No No -Bioengineered Tissue No Yes -Type of bioengineered Tissue EPIFIX -Expiration Date 12/16/23 -Product Lot Number [id number] -Percent Used 100 -Saline Lot Number [id number] -Bleeding Controlled with Pressure Pressure -Offloading No No -Treatment Response Procedure Procedure Tolerated Well Tolerated Well #1 right lower extremity--cluster -Time 08:27 -Correct Patient Yes -Correct Side, Site, Position Yes -Correct Procedure Yes -Procedure Performed Yes -Type of Procedure Debridement -Clinical Debridement Subcutaneous -Post Debridement Size (cm) - Length 10.5 -Post Debridement Size (cm) - Width 8.5 -Post Debridement Size (cm) - Depth 0.4 -Total Square Cm 89.25 -Wound/Ulcer Outcome Not Healed -Ulcer Cleansing Rinsed/ Irrigated with Saline -Foul Odor after Cleansing No -Bioengineered Tissue No -Bleeding Controlled with Pressure -Other Actual -Offloading No -Treatment Response Procedure Tolerated Well #1 RLE -Time 14:28 15:24 -Correct Patient Yes Yes -Correct Side, Site, Position Yes Yes -Correct Procedure Yes Yes -Procedure Performed Yes Yes -Type of Procedure Debridement Debridement -Clinical Debridement Subcutaneous Subcutaneous -Post Debridement Size (cm) - Length 3.2 3 -Post Debridement Size (cm) - Width 2.4 2 -Post Debridement Size (cm) - Depth 0.3 0.4 -Total Square Cm 7.68 6 -Wound/Ulcer Outcome Not Healed Not Healed -Ulcer Cleansing Rinsed/ Rinsed/ Irrigated with Irrigated with Saline Saline -Foul Odor after Cleansing No No -Bioengineered Tissue No Yes -Type of bioengineered Tissue EPIFIX -Expiration Date 12/16/23 -Product Lot Number [id number] -Percent Used 100 -Saline Lot Number [id number] -Bleeding Controlled with Pressure -Offloading No -Treatment Response Procedure Tolerated Well Pain Scale: 0-10 Numeric Is Patient Pain Free? Yes Yes Wound debrided: leg cluster Laterality: Right Type of Debridement: Excisional debridement Anesthesia Used: 5% Lidocaine Gel Depth: in the subcutaneous layer Percentage of wound debrided: 100 Instrument Used: #15 blade Tissue Removed: fibrous, devitalized subcutaneous, biofilm, slough Severity: Fat Layer Exposed Amount of bleeding with debridement: Mild Bleeding Controlled with: Pressure Patient tolerated procedure well - Additional Wound Wound debrided: leg (superior to initially described ulcer) Laterality: Right Type of Debridement: Excisional debridement Anesthesia Used: 5% Lidocaine Gel Depth: in the subcutaneous layer Percentage of wound debrided: 100 Instrument Used: #15 blade Tissue Removed: fibrous, devitalized subcutaneous, biofilm, slough Severity: Fat Layer Exposed Amount of bleeding with debridement: Mild Bleeding Controlled with: Pressure Patient tolerated procedure: Patient tolerated procedure well Assessment/Plan Active Problems Ulcer of right lower extremity with fat layer exposed (Chronic) Leg edema (Chronic) Venous insufficiency (Chronic) Diabetes (Chronic) Assessment: Right leg ulcer, with fat layer exposed, with cellulitis resolved. Leg edema bilateral. Venous insufficiency. Chronic and acute deep venous thrombosis. Malnutrition suspected. Diabetes Plan: I reviewed and discussed his case. Excisional subcutaneous debridement was performed to the right leg as noted in the clinical panel. His CBC and CMP were previously reviewed without leukocytosis. It is noted his white blood cell count was 9.6 and his creatinine is 1.84. His last hemoglobin A1c was recently 7.8%. To keep pressure off of this ulcer site by avoiding laying on the right limb. I also recommend a reduction of swelling to reduce pressure. To continue to wear compression stockings that he recently obtained and use a donning device to help with applications. Venous insufficiency work-up with a venous duplex Doppler for reflux evaluation was completed and incompetent veins are noted. To follow up with Dr. Perez as scheduled in 6 months. His acute and chronic blood clots were also noted and this is already been addressed. He is been switched from Coumadin to Eliquis. He will follow-up with his primary care physician, Dr. Enzo Jasso, in regards to this. Noninvasive arterial studies were additionally ordered and they appear to demonstrate overall normal perfusion to the lower extremities. I recommend nutritional supplementation to optimize healing in addition to proper glycemic control. A prescription for Caleb nutritional supplementation was provided previously and he was advised on proper use. I answered his questions. He has stabilized over the past several weeks and I recommend application of advanced wound healing product, epi cord and then later transition and epi fix. This is medically necessary to optimize wound healing. He is at risk for limb loss. Prior authorization has been completed and verbal consent was obtained today for application. This was applied according standard protocol it was secured in place with Adaptic touch. Steri-Strips were not applied due to his poor skin quality adjacent to the ulcer site and recent injury secondary to plain gauze application. He was advised to keep this clean, dry, and intact until follow-up visit next week. We discussed the indication, planned procedure, anticipated healing time and management. He is amendable to proceed. To return to the wound healing center in 1 week or call sooner if he has any questions or concerns.
[2019-07-13 10:17] VITALS: BP 134/77; PULSE 69; RESP 16; TEMP 36.6; BMI 39.6
--- NOTE | 2019-07-13 11:10 | PN.PCM_ITS ---
(1) Diabetes Status: Chronic Current Visit: Yes Qualifiers: Diabetes mellitus type: type 2 Code(s): E11.9 - Type 2 diabetes mellitus without complications (2) Leg edema Status: Chronic Current Visit: Yes Code(s): R60.0 - Localized edema (3) Ulcer of right lower extremity with fat layer exposed Status: Chronic Current Visit: Yes Code(s): L97.912 - Non-pressure chronic ulcer of unspecified part of right lower leg with fat layer exposed (4) Venous insufficiency Status: Chronic Current Visit: Yes Code(s): I87.2 - Venous insufficiency (chronic) (peripheral) (5) Type II diabetes mellitus Status: Chronic Current Visit: Yes Code(s): E11.9 - Type 2 diabetes mellitus without complications Type of Wound Date of Service: 07/13/19 Chief Complaint: Right leg ulcer History of Wound: This 68-year-old male with significant past medical history of diabetes presented to the wound healing center complaining of a to need nonhealing ulcer. His pain has decreased. He denies claudication. He denies rest burning, tingling, or numbness. He denies current fever, chill, nausea, vomiting. He obtain his arterial venous studies. It was noted that he has recent acute blood clot and previous chronic blood clots. He continues on Eliquis anticoagulation plan. This is continued. He did schedule a vascular referral as advised for his venous insufficiency and was advised to proceed with compression garments and a follow-up in [address] Perez provided a compression stocking prescription and did obtain these. He is with his today. He is ready to proceed with epifix application today. Progress of Wound: Courtesy visit epi fix #2 applied tolerated well. Good cell growth and base rounding parameter skin intact and looks healthy. - Physical Exam Vital Signs Temp Pulse Resp BP 97.8 F 69 16 134/77 H 07/13/19 10:17 07/13/19 10:17 07/13/19 10:17 07/13/19 10:17 General: Oriented x3, Cooperative, Well developed HEENT: Atraumatic, PERRLA Oral: Moist Mucosa Neck: Supple, No JVD Lungs: Clear to auscultation, Normal air movement Cardiovascular: Regular rate, Regular Rhythm Abdomen: Bowel Sounds Present, Soft, Non Tender, No Hepato-splenomegaly Extremities: No clubbing, No edema Wound Measurements and Assessment WC - Nurse 1 - General Ulcer Measurement Start: 06/22/19 08:06 Freq: Status: Active Protocol: Activity Type Activity Date Activity User E-Sign Co-Sign Detail Recorded Client Recorded Date Recorded By Document 07/13/19 10:17 [facility] [id number] 07/13/19 10:31 [facility] 07/13/19 10:17 Wound Center Nurse 1 [Ulcer Assessment] #2- RLE SUPERIOR -Combined with other wound No -Current Size (cm) - Length 0.8 -Current Size (cm) - Width 0.5 -Current Size (cm) - Depth 0.1 -Total Square Cm 0.40 -Photo Taken No -Epithelialization None Present -Tunneling No -Undermining/Tunneling No -Circular Undermining No -Exudate Amt Small -Exudate Type Serous -Wound Margin Distinct, Outline Attached -Granulation Amt Small (1-33%) -Granulation Quality [place] -Slough/Fibrin Yes -Necrosis Amt Large (67-100%) -Necrotic Tissue Type Adherent Slough -Texture (Mandy-wound Skin Appearance) Assessed, Scarring -Moisture (Mandy-wound Skin Appearance Assessed,Dry/ ) Scaly -Color (Mandy-wound Skin Appearance) Assessed, Erythema -Temperature (Mandy-wound Skin No Abnormality Appearance) (Pt Warm) -Tenderness on Palpation (Mandy-wound No Skin Appearance) -Ulcer Cleansing soapy water -Foul Odor after Cleansing No -Anesthetic Used 5% Lidocaine Gel #1 RLE -Combined with other wound No -Current Size (cm) - Length 2.9 -Current Size (cm) - Width 1.8 -Current Size (cm) - Depth 0.3 -Total Square Cm 5.22 -Photo Taken No -Epithelialization None Present -Tunneling No -Undermining/Tunneling No -Circular Undermining No -Exudate Amt Small -Exudate Type Serosanguineous -Wound Margin Distinct, Outline Attached -Granulation Amt Medium (34-66%) -Granulation Quality [place] -Slough/Fibrin Yes -Necrosis Amt Medium (34-66%) -Necrotic Tissue Type Adherent Slough -Texture (Mandy-wound Skin Appearance) Assessed, Scarring -Moisture (Mandy-wound Skin Appearance Assessed,Dry/ ) Scaly -Color (Mandy-wound Skin Appearance) Assessed, Erythema -Temperature (Mandy-wound Skin No Abnormality Appearance) (Pt Warm) -Tenderness on Palpation (Mandy-wound No Skin Appearance) -Ulcer Cleansing soapy water -Foul Odor after Cleansing No -Anesthetic Used 5% Lidocaine Gel [Edema Assessment] -Lower Limb Edema Present Yes -Right Calf (cm) 46.8 -Right Ankle (cm) 26.2 WC - Nurse 2 - General Ulcer CM Notes Start: 06/22/19 08:06 Freq: Status: Active Protocol: Activity Type Activity Date Activity User E-Sign Co-Sign Detail Recorded Client Recorded Date Recorded By Document 07/13/19 10:45 MW [id number] 07/13/19 10:52 MW 07/13/19 10:45 Wound Center Nurse 2 [Procedure/Treatment] #2- RLE SUPERIOR -Time 10:45 -Correct Patient Yes -Correct Side, Site, Position Yes -Correct Procedure Yes -Procedure Performed No -Post Debridement Size (cm) - Length 0 -Post Debridement Size (cm) - Width 0 -Post Debridement Size (cm) - Depth 0 -Total Square Cm 0 -Wound/Ulcer Outcome Healed- Epithelialized -Bleeding Controlled with Pressure -Offloading No -Treatment Response Procedure Tolerated Well #1 RLE -Time 10:46 -Correct Patient Yes -Correct Side, Site, Position Yes -Correct Procedure Yes -Procedure Performed Yes -Type of Procedure Debridement -Clinical Debridement Subcutaneous -Post Debridement Size (cm) - Length 2.8 -Post Debridement Size (cm) - Width 1.9 -Post Debridement Size (cm) - Depth 0.4 -Total Square Cm 5.32 -Wound/Ulcer Outcome Not Healed -Ulcer Cleansing Rinsed/ Irrigated with Saline -Foul Odor after Cleansing No -Bioengineered Tissue Yes -Type of bioengineered Tissue EPIFIX -Expiration Date 01/16/24 -Product Lot Number [id number] -Percent Used 100 -Saline Lot Number [id number] -Bleeding Controlled with Pressure -Offloading No -Treatment Response Procedure Tolerated Well [See Physician Procedure note for Specifics] Pain Scale: 0-10 Numeric [Pain] -Is Patient Pain Free? Yes Musculoskeletal: No Tenderness to Palpation of Joints or Extremities Lymphatic: No Cervical, Supraclavicular, or Inguinal Adenopathy Neurological: Cranial nerves II-XII grossly intact, Neuro grossly intact Psych/Mental Status: Normal Affect, Appropriate, Alert and oriented to time, place, person, mood and affect Debridement Note Post-Debridement Measurements/Treatment WC - Nurse 2 - General Ulcer CM Notes Start: 06/22/19 08:06 Freq: Status: Active Protocol: Activity Type Activity Date Activity User E-Sign Co-Sign Detail Recorded Client Recorded Date Recorded By Document 06/22/19 08:26 [id number] 06/22/19 08:29 Document 06/29/19 14:25 [id number] 06/29/19 14:28 Document 07/06/19 15:20 JF [id number] 07/06/19 15:26 Document 07/13/19 10:45 MW [id number] 07/13/19 10:52 MW 06/22/19 06/29/19 07/06/19 08:26 14:25 15:20 Wound Center Nurse 2 #2- RLE SUPERIOR -Time 08:26 14:27 15:20 -Correct Patient Yes Yes Yes -Correct Side, Site, Position Yes Yes Yes -Correct Procedure Yes Yes Yes -Procedure Performed Yes Yes Yes -Type of Procedure Debridement Debridement Debridement -Clinical Debridement Subcutaneous Subcutaneous Subcutaneous -Post Debridement Size (cm) - Length 1.7 1 -Post Debridement Size (cm) - Width 0.8 0.6 -Post Debridement Size (cm) - Depth 0.2 0.2 -Total Square Cm 1.36 0.6 -Wound/Ulcer Outcome Not Healed Not Healed -Ulcer Cleansing Rinsed/ Rinsed/ Irrigated with Irrigated with Saline Saline -Foul Odor after Cleansing No No -Bioengineered Tissue No Yes -Type of bioengineered Tissue EPIFIX -Expiration Date 12/16/23 -Product Lot Number [id number] -Percent Used 100 -Saline Lot Number [id number] -Bleeding Controlled with Pressure Pressure -Offloading No No -Treatment Response Procedure Procedure Tolerated Well Tolerated Well #1 right lower extremity--cluster -Time 08:27 -Correct Patient Yes -Correct Side, Site, Position Yes -Correct Procedure Yes -Procedure Performed Yes -Type of Procedure Debridement -Clinical Debridement Subcutaneous -Post Debridement Size (cm) - Length 10.5 -Post Debridement Size (cm) - Width 8.5 -Post Debridement Size (cm) - Depth 0.4 -Total Square Cm 89.25 -Wound/Ulcer Outcome Not Healed -Ulcer Cleansing Rinsed/ Irrigated with Saline -Foul Odor after Cleansing No -Bioengineered Tissue No -Bleeding Controlled with Pressure -Other Actual -Offloading No -Treatment Response Procedure Tolerated Well #1 RLE -Time 14:28 15:24 -Correct Patient Yes Yes -Correct Side, Site, Position Yes Yes -Correct Procedure Yes Yes -Procedure Performed Yes Yes -Type of Procedure Debridement Debridement -Clinical Debridement Subcutaneous Subcutaneous -Post Debridement Size (cm) - Length 3.2 3 -Post Debridement Size (cm) - Width 2.4 2 -Post Debridement Size (cm) - Depth 0.3 0.4 -Total Square Cm 7.68 6 -Wound/Ulcer Outcome Not Healed Not Healed -Ulcer Cleansing Rinsed/ Rinsed/ Irrigated with Irrigated with Saline Saline -Foul Odor after Cleansing No No -Bioengineered Tissue No Yes -Type of bioengineered Tissue EPIFIX -Expiration Date 12/16/23 -Product Lot Number [id number] -Percent Used 100 -Saline Lot Number [id number] -Bleeding Controlled with Pressure -Offloading No -Treatment Response Procedure Tolerated Well Pain Scale: 0-10 Numeric Is Patient Pain Free? Yes Yes 07/13/19 10:45 Wound Center Nurse 2 #2- RLE SUPERIOR -Time 10:45 -Correct Patient Yes -Correct Side, Site, Position Yes -Correct Procedure Yes -Procedure Performed No -Type of Procedure -Clinical Debridement -Post Debridement Size (cm) - Length 0 -Post Debridement Size (cm) - Width 0 -Post Debridement Size (cm) - Depth 0 -Total Square Cm 0 -Wound/Ulcer Outcome Healed- Epithelialized -Ulcer Cleansing -Foul Odor after Cleansing -Bioengineered Tissue -Type of bioengineered Tissue -Expiration Date -Product Lot Number -Percent Used -Saline Lot Number -Bleeding Controlled with Pressure -Offloading No -Treatment Response Procedure Tolerated Well #1 right lower extremity--cluster -Time -Correct Patient -Correct Side, Site, Position -Correct Procedure -Procedure Performed -Type of Procedure -Clinical Debridement -Post Debridement Size (cm) - Length -Post Debridement Size (cm) - Width -Post Debridement Size (cm) - Depth -Total Square Cm -Wound/Ulcer Outcome -Ulcer Cleansing -Foul Odor after Cleansing -Bioengineered Tissue -Bleeding Controlled with -Other -Offloading -Treatment Response #1 RLE -Time 10:46 -Correct Patient Yes -Correct Side, Site, Position Yes -Correct Procedure Yes -Procedure Performed Yes -Type of Procedure Debridement -Clinical Debridement Subcutaneous -Post Debridement Size (cm) - Length 2.8 -Post Debridement Size (cm) - Width 1.9 -Post Debridement Size (cm) - Depth 0.4 -Total Square Cm 5.32 -Wound/Ulcer Outcome Not Healed -Ulcer Cleansing Rinsed/ Irrigated with Saline -Foul Odor after Cleansing No -Bioengineered Tissue Yes -Type of bioengineered Tissue EPIFIX -Expiration Date 01/16/24 -Product Lot Number [id number] -Percent Used 100 -Saline Lot Number [id number] -Bleeding Controlled with Pressure -Offloading No -Treatment Response Procedure Tolerated Well Pain Scale: 0-10 Numeric Is Patient Pain Free? Yes Wound debrided: Right lateral lower leg Type of Debridement: Excisional debridement Anesthesia Used: 5% Lidocaine Gel Depth: Down to and including healthy tissue, in the subcutaneous layer Percentage of wound debrided: 100 Instrument Used: 5mm curette Tissue Removed: Fibrin and devitalized tissue Severity: Limited To Skin Breakdown Bleeding Controlled with: Compression and gauze Patient tolerated procedure well Assessment/Plan Active Problems Ulcer of right lower extremity with fat layer exposed (Chronic) Leg edema (Chronic) Venous insufficiency (Chronic) Diabetes (Chronic) Type II diabetes mellitus (Chronic) Assessment: Right leg ulcer, with fat layer exposed, with cellulitis resolved. Leg edema bilateral. Venous insufficiency. Chronic and acute deep venous thrombosis. Malnutrition suspected. Diabetes Plan: continue to wear compression stockings that he recently obtained and use a donning device to help with applications. Epi fix #2 applied with Adaptic touch and gauze dressing. follow up in 1 week with regular physician
== END 2019-07-16 23:59 ==
LOC: WC 09:45
PROVIDERS: Family Provider Family Medicine; PCP Family Medicine; Referring Provider Podiatrist; Visit Provider Podiatrist
DX: E11.622 Type 2 diabetes mellitus with other skin ulcer (principal); L97.812 Non-pressure chronic ulcer of other part of right lower leg with fat layer exposed; R60.0 Localized edema; I87.2 Venous insufficiency (chronic) (peripheral); Z86.718 Personal history of other venous thrombosis and embolism; Z79.01 Long term (current) use of anticoagulants
CPT/HCPCS: 11042; 15271; Q4186

== ENCOUNTER 2019-08-16 13:45 | Outpatient (RCR) | payer OTHER, SELFPAY ==
[2019-07-17 00:56] VITALS: BP 134/77; PULSE 69; RESP 16; TEMP 36.6
[2019-07-20 08:18] VITALS: BMI 39.6
--- NOTE | 2019-07-20 09:00 | PN.PCM_ITS ---
(1) Ulcer of right lower extremity with fat layer exposed Status: Chronic Current Visit: No Code(s): L97.912 - Non-pressure chronic ulcer of unspecified part of right lower leg with fat layer exposed (2) Leg edema Status: Chronic Current Visit: No Code(s): R60.0 - Localized edema (3) Venous insufficiency Status: Chronic Current Visit: No Code(s): I87.2 - Venous insufficiency (chronic) (peripheral) (4) Malnutrition Status: Suspected Current Visit: No Code(s): E46 - Unspecified protein- calorie malnutrition Type of Wound Date of Service: 07/20/19 Chief Complaint: Right leg ulcer History of Wound: This 68-year-old male with significant past medical history of diabetes presented to the wound healing center complaining of a to need nonhealing ulcer. His pain has decreased. He denies claudication. He denies rest burning, tingling, or numbness. He denies current fever, chill, nausea, vomiting. He obtain his arterial venous studies. It was noted that he has recent acute blood clot and previous chronic blood clots. He continues on Eliquis anticoagulation plan. This is continued. He did schedule a vascular referral as advised for his venous insufficiency and was advised to proceed with compression garments and a follow-up in [address] Perez provided a compression stocking prescription and did obtain these. He is with his today. He is ready to proceed with epifix application today. Progress of Wound: improving - Physical Exam Vital Signs Temp Pulse Resp BP 97.8 F 69 16 134/77 H 07/17/19 00:56 07/17/19 00:56 07/17/19 00:56 07/17/19 00:56 General: Alert, Oriented x3, Cooperative, No apparent distress Extremities: No cyanosis, Capillary Refill Less than 3 Seconds, No Calf Tenderness, Diminished Peripheral Pulses, Edema Skin: Ulcer/ Wound - No purulence, erythema, string, odor, infection. Improved granular base noted the ulcer site is more superficial now. The adjacent skin with less excoriations Wound Measurements and Assessment WC - Nurse 1 - General Ulcer Measurement Start: 07/20/19 08:18 Freq: Status: Active Protocol: Activity Type Activity Date Activity User E-Sign Co-Sign Detail Recorded Client Recorded Date Recorded By Document 07/20/19 08:18 [id number] 07/20/19 08:22 07/20/19 08:18 Wound Center Nurse 1 [Ulcer Assessment] #1 RLE -Combined with other wound No -Current Size (cm) - Length 2.9 -Current Size (cm) - Width 2 -Current Size (cm) - Depth 0.3 -Total Square Cm 5.8 -Photo Taken No -Epithelialization Medium 34-66% -Tunneling No -Undermining/Tunneling No -Circular Undermining No -Exudate Amt Small -Exudate Type Serosanguineous -Wound Margin Flat & Intact -Granulation Amt Large (67-100%) -Granulation Quality Red -Slough/Fibrin Yes -Necrosis Amt Small (1-33%) -Necrotic Tissue Type Adherent Slough -Structure Exposed N/A -Texture (Mandy-wound Skin Appearance) Assessed, Localized Edema -Moisture (Mandy-wound Skin Appearance Assessed,Dry/ ) Scaly -Color (Mandy-wound Skin Appearance) Assessed -Temperature (Mandy-wound Skin No Abnormality Appearance) (Pt Warm) -Tenderness on Palpation (Mandy-wound No Skin Appearance) -Ulcer Cleansing Wound Cleanser -Foul Odor after Cleansing No -Anesthetic Used 4% Lidocaine Solution [Edema Assessment] -Lower Limb Edema Present Yes -Right Calf (cm) 41.6 -Right Ankle (cm) 25.6 WC - Nurse 2 - General Ulcer CM Notes Start: 07/20/19 08:18 Freq: Status: Active Protocol: Activity Type Activity Date Activity User E-Sign Co-Sign Detail Recorded Client Recorded Date Recorded By Document 07/20/19 08:33 [id number] 07/20/19 08:39 07/20/19 08:33 Wound Center Nurse 2 [Procedure/Treatment] #1 RLE -Time 08:35 -Correct Patient Yes -Correct Side, Site, Position Yes -Correct Procedure Yes -Procedure Performed Yes -Type of Procedure Debridement -Clinical Debridement Subcutaneous -Post Debridement Size (cm) - Length 3 -Post Debridement Size (cm) - Width 2 -Post Debridement Size (cm) - Depth 0.2 -Total Square Cm 6 -Wound/Ulcer Outcome Not Healed -Ulcer Cleansing Rinsed/ Irrigated with Saline -Foul Odor after Cleansing No -Bioengineered Tissue Yes -Type of bioengineered Tissue EPIFIX -Expiration Date 05/01/24 -Product Lot Number [id number] -Percent Used 100 -Bleeding Controlled with Pressure -Offloading No -Treatment Response Procedure Tolerated Well [See Physician Procedure note for Specifics] Pain Scale: 0-10 Numeric [Pain] -Is Patient Pain Free? Yes Musculoskeletal: No Tenderness to Palpation of Joints or Extremities, Muscle Wasting Neurological: Sensory exam intact to light touch and pain Psych/Mental Status: Normal Affect, Appropriate Debridement Note Post-Debridement Measurements/Treatment WC - Nurse 2 - General Ulcer CM Notes Start: 07/20/19 08:18 Freq: Status: Active Protocol: Activity Type Activity Date Activity User E-Sign Co-Sign Detail Recorded Client Recorded Date Recorded By Document 07/20/19 08:33 JF [id number] 07/20/19 08:39 PASCUAL 07/20/19 08:33 Wound Center Nurse 2 #1 RLE -Time 08:35 -Correct Patient Yes -Correct Side, Site, Position Yes -Correct Procedure Yes -Procedure Performed Yes -Type of Procedure Debridement -Clinical Debridement Subcutaneous -Post Debridement Size (cm) - Length 3 -Post Debridement Size (cm) - Width 2 -Post Debridement Size (cm) - Depth 0.2 -Total Square Cm 6 -Wound/Ulcer Outcome Not Healed -Ulcer Cleansing Rinsed/ Irrigated with Saline -Foul Odor after Cleansing No -Bioengineered Tissue Yes -Type of bioengineered Tissue EPIFIX -Expiration Date 12/16/23 -Product Lot Number [id number] -Percent Used 100 -Bleeding Controlled with Pressure -Offloading No -Treatment Response Procedure Tolerated Well Pain Scale: 0-10 Numeric Is Patient Pain Free? Yes Wound debrided: leg Laterality: Right Wound Grade/Stage: grade 1 Type of Debridement: Excisional debridement Anesthesia Used: 5% Lidocaine Gel Depth: in the subcutaneous layer Percentage of wound debrided: 100 Instrument Used: #15 blade Tissue Removed: fibrous, devitalized subcutaneous, biofilm, slough Severity: Fat Layer Exposed Amount of bleeding with debridement: Mild Bleeding Controlled with: Pressure Patient tolerated procedure well Assessment/Plan Assessment: Right leg ulcer, with fat layer exposed, with cellulitis resolved. Leg edema bilateral. Venous insufficiency. Chronic and acute deep venous thrombosis. Malnutrition suspected. Diabetes Plan: continue to wear compression stockings that he recently obtained and use a donning device to help with applications. Epi fix #3 applied with wound veil, steri strips and gauze dressing. follow up in 1 week. continue elevation
[2019-07-27 08:23] VITALS: BP 132/70; PULSE 69; RESP 16; TEMP 35.9; BMI 39.6
--- NOTE | 2019-07-27 09:09 | PN.PCM_ITS ---
(1) Ulcer of right lower extremity with fat layer exposed Status: Chronic Current Visit: Yes Code(s): L97.912 - Non-pressure chronic ulcer of unspecified part of right lower leg with fat layer exposed (2) Leg edema Status: Chronic Current Visit: Yes Code(s): R60.0 - Localized edema (3) Venous insufficiency Status: Chronic Current Visit: Yes Code(s): I87.2 - Venous insufficiency (chronic) (peripheral) (4) Malnutrition Status: Suspected Current Visit: Yes Code(s): E46 - Unspecified protein- calorie malnutrition Type of Wound Date of Service: 07/27/19 Chief Complaint: Right leg ulcer History of Wound: This 68-year-old male with significant past medical history of diabetes presented to the wound healing center complaining of a to need nonhealing ulcer. His pain has decreased. He denies claudication. He denies rest burning, tingling, or numbness. He denies current fever, chill, nausea, vomiting. He obtain his arterial and venous studies. It was noted that he has recent acute blood clot and previous chronic blood clots. He continues on Eliquis anticoagulation plan. This is continued. He did schedule a vascular referral as advised for his venous insufficiency and was advised to proceed with compression garments and a follow-up in [address] Perez provided a compression stocking prescription and did obtain these. He is with his today. He is ready to proceed with epifix application today. Progress of Wound: improving - Physical Exam Vital Signs Temp Pulse Resp BP 96.6 F L 69 16 132/70 H 07/27/19 08:23 07/27/19 08:23 07/27/19 08:23 07/27/19 08:23 General: Alert, Oriented x3, Cooperative, No apparent distress Extremities: No cyanosis, Capillary Refill Less than 3 Seconds, No Calf Tenderness, Diminished Peripheral Pulses, Edema Skin: Ulcer/ Wound - No purulence, erythema, string, odor, infection, maceration, necrosis. Adjacent skin is with controlled inflammation and is atrophic. There is no undermining or deep tissue exposure today Wound Measurements and Assessment WC - Nurse 1 - General Ulcer Measurement Start: 07/20/19 08:18 Freq: Status: Active Protocol: Activity Type Activity Date Activity User E-Sign Co-Sign Detail Recorded Client Recorded Date Recorded By Document 07/27/19 08:23 JF [id number] 07/27/19 08:24 07/27/19 08:23 Wound Center Nurse 1 [Ulcer Assessment] #1 RLE -Combined with other wound No -Current Size (cm) - Length 2.6 -Current Size (cm) - Width 1.8 -Current Size (cm) - Depth 0.2 -Total Square Cm 4.68 -Photo Taken No -Epithelialization Small 1-33% -Tunneling No -Undermining/Tunneling No -Circular Undermining No -Exudate Amt Small -Exudate Type Serosanguineous -Wound Margin Flat & Intact -Granulation Amt Large (67-100%) -Granulation Quality Red -Slough/Fibrin Yes -Necrosis Amt Small (1-33%) -Necrotic Tissue Type Adherent Slough -Structure Exposed N/A -Texture (Mandy-wound Skin Appearance) Assessed, Localized Edema -Moisture (Mandy-wound Skin Appearance Assessed,Dry/ ) Scaly -Color (Mandy-wound Skin Appearance) Assessed -Temperature (Mandy-wound Skin No Abnormality Appearance) (Pt Warm) -Tenderness on Palpation (Mandy-wound No Skin Appearance) -Ulcer Cleansing Wound Cleanser -Foul Odor after Cleansing No -Anesthetic Used 4% Lidocaine Solution [Edema Assessment] -Lower Limb Edema Present Yes -Right Calf (cm) 42.5 -Right Ankle (cm) 25.3 WC - Nurse 2 - General Ulcer CM Notes Start: 07/20/19 08:18 Freq: Status: Active Protocol: Activity Type Activity Date Activity User E-Sign Co-Sign Detail Recorded Client Recorded Date Recorded By Document 07/27/19 08:39 [email or web address] [id number] 07/27/19 08:41 07/27/19 08:39 Wound Center Nurse 2 [Procedure/Treatment] #1 RLE -Time 08:39 -Correct Patient Yes -Correct Side, Site, Position Yes -Correct Procedure Yes -Procedure Performed Yes -Type of Procedure Debridement -Clinical Debridement Subcutaneous -Post Debridement Size (cm) - Length 2.6 -Post Debridement Size (cm) - Width 1.9 -Post Debridement Size (cm) - Depth 0.2 -Total Square Cm 4.94 -Wound/Ulcer Outcome Not Healed -Ulcer Cleansing Rinsed/ Irrigated with Saline -Foul Odor after Cleansing No -Bioengineered Tissue Yes -Type of bioengineered Tissue EPIFIX -Expiration Date 04/17/24 -Product Lot Number [id number] -Percent Used 100 -Saline Lot Number [id number] -Bleeding Controlled with Pressure -Offloading No -Treatment Response Procedure Tolerated Well [See Physician Procedure note for Specifics] Pain Scale: 0-10 Numeric [Pain] -Is Patient Pain Free? Yes Musculoskeletal: No Tenderness to Palpation of Joints or Extremities, Muscle Wasting Neurological: Sensory exam intact to light touch and pain Psych/Mental Status: Normal Affect, Appropriate Debridement Note Post-Debridement Measurements/Treatment WC - Nurse 2 - General Ulcer CM Notes Start: 07/20/19 08:18 Freq: Status: Active Protocol: Activity Type Activity Date Activity User E-Sign Co-Sign Detail Recorded Client Recorded Date Recorded By Document 07/20/19 08:33 [id number] 07/20/19 08:39 Document 07/27/19 08:39 [id number] 07/27/19 08:41 07/20/19 07/27/19 08:33 08:39 Wound Center Nurse 2 #1 RLE -Time 08:35 08:39 -Correct Patient Yes Yes -Correct Side, Site, Position Yes Yes -Correct Procedure Yes Yes -Procedure Performed Yes Yes -Type of Procedure Debridement Debridement -Clinical Debridement Subcutaneous Subcutaneous -Post Debridement Size (cm) - Length 3 2.6 -Post Debridement Size (cm) - Width 2 1.9 -Post Debridement Size (cm) - Depth 0.2 0.2 -Total Square Cm 6 4.94 -Wound/Ulcer Outcome Not Healed Not Healed -Ulcer Cleansing Rinsed/ Rinsed/ Irrigated with Irrigated with Saline Saline -Foul Odor after Cleansing No No -Bioengineered Tissue Yes Yes -Type of bioengineered Tissue EPIFIX EPIFIX -Expiration Date 12/16/23 04/17/24 -Product Lot Number [id number] -Percent Used 100 100 -Saline Lot Number [id number] -Bleeding Controlled with Pressure Pressure -Offloading No No -Treatment Response Procedure Procedure Tolerated Well Tolerated Well Pain Scale: 0-10 Numeric Is Patient Pain Free? Yes Yes Assessment/Plan Active Problems Ulcer of right lower extremity with fat layer exposed (Chronic) Leg edema (Chronic) Venous insufficiency (Chronic) Assessment: Right leg ulcer, with fat layer exposed, with cellulitis resolved. Leg edema bilateral. Venous insufficiency. Chronic and acute deep venous thrombosis. Malnutrition suspected. Diabetes Plan: continue to wear compression stockings that he recently obtained and use a donning device to help with applications. Epi fix applied with wound veil, steri strips and gauze dressing. Verbal consent was obtained and he tolerated this well. 100% of the product was utilized. The indication and anticipated healing time and management was discussed. follow up in 1 week. continue elevation
[2019-08-03 08:13] VITALS: BP 119/66; PULSE 69; RESP 18; TEMP 36.2; BMI 39.6
--- NOTE | 2019-08-03 10:34 | PCM.WC.PN ---
(1) Ulcer of right lower extremity with fat layer exposed Status: Chronic Code(s): L97.912 - Non-pressure chronic ulcer of unspecified part of right lower leg with fat layer exposed (2) Leg edema Status: Chronic Code(s): R60.0 - Localized edema (3) Venous insufficiency Status: Chronic Code(s): I87.2 - Venous insufficiency (chronic) (peripheral) (4) Malnutrition Status: Suspected Code(s): E46 - Unspecified protein-calorie malnutrition Type of Wound Date of Service: 08/03/19 Chief Complaint: Right leg ulcer History of Wound: This 68-year-old male with significant past medical history of diabetes presented to the wound healing center complaining of a to need nonhealing ulcer. His pain has decreased. He denies claudication. He denies rest burning, tingling, or numbness. He denies current fever, chill, nausea, vomiting. He obtain his arterial and venous studies. It was noted that he has recent acute blood clot and previous chronic blood clots. He continues on Eliquis anticoagulation plan. This is continued. He did schedule a vascular referral as advised for his venous insufficiency and was advised to proceed with compression garments and a follow-up in [address] Perez provided a compression stocking prescription and did obtain these. He is with his today. He is ready to proceed with epifix application today. Progress of Wound: improving - Physical Exam Vital Signs Temp Pulse Resp BP 97.2 F L 69 18 119/66 08/03/19 08:13 08/03/19 08:13 08/03/19 08:13 08/03/19 08:13 General: Alert, Oriented x3, Cooperative, No apparent distress Extremities: No cyanosis, Capillary Refill Less than 3 Seconds, No Calf Tenderness, Diminished Peripheral Pulses, Edema Skin: Ulcer/ Wound - No purulence, erythema, string, odor, infection. Continued granulation and peripheral epithelialization noted Wound Measurements and Assessment WC - Nurse 1 - General Ulcer Measurement Start: 07/20/19 08:18 Freq: Status: Active Protocol: Activity Type Activity Date Activity User E-Sign Co-Sign Detail Recorded Client Recorded Date Recorded By Document 08/03/19 08:13 PASCUAL [id number] 08/03/19 08:14 PASCUAL 08/03/19 08:13 Wound Center Nurse 1 [Ulcer Assessment] #1 RLE -Combined with other wound No -Current Size (cm) - Length 2.1 -Current Size (cm) - Width 1.6 -Current Size (cm) - Depth 0.2 -Total Square Cm 3.36 -Photo Taken No -Epithelialization Medium 34-66% -Tunneling No -Undermining/Tunneling No -Circular Undermining No -Exudate Amt Medium -Exudate Type Serosanguineous -Wound Margin Flat & Intact -Granulation Amt Medium (34-66%) -Granulation Quality Red -Slough/Fibrin Yes -Necrosis Amt Medium (34-66%) -Necrotic Tissue Type Adherent Slough -Structure Exposed N/A -Texture (Mandy-wound Skin Appearance) Assessed, Localized Edema -Moisture (Mandy-wound Skin Appearance Assessed,Dry/ ) Scaly -Color (Mandy-wound Skin Appearance) Assessed -Temperature (Mandy-wound Skin No Abnormality Appearance) (Pt Warm) -Tenderness on Palpation (Mandy-wound No Skin Appearance) -Ulcer Cleansing Wound Cleanser -Foul Odor after Cleansing No -Anesthetic Used 4% Lidocaine Solution [Edema Assessment] -Lower Limb Edema Present Yes -Right Calf (cm) 43.2 -Right Ankle (cm) 25.7 WC - Nurse 2 - General Ulcer CM Notes Start: 07/20/19 08:18 Freq: Status: Active Protocol: Activity Type Activity Date Activity User E-Sign Co-Sign Detail Recorded Client Recorded Date Recorded By Document 08/03/19 09:36 [id number] 08/03/19 09:40 08/03/19 09:36 Wound Center Nurse 2 [Procedure/Treatment] #1 RLE -Time 09:39 -Correct Patient Yes -Correct Side, Site, Position Yes -Correct Procedure Yes -Procedure Performed Yes -Type of Procedure Debridement -Clinical Debridement Subcutaneous -Post Debridement Size (cm) - Length 2.2 -Post Debridement Size (cm) - Width 1.6 -Post Debridement Size (cm) - Depth 0.2 -Total Square Cm 3.52 -Wound/Ulcer Outcome Not Healed -Ulcer Cleansing Rinsed/ Irrigated with Saline -Foul Odor after Cleansing No -Bioengineered Tissue Yes -Type of bioengineered Tissue EPIFIX -Expiration Date 01/16/24 -Product Lot Number [id number] -Percent Used 100 -Saline Lot Number [id number] -Bleeding Controlled with Pressure -Offloading No -Treatment Response Procedure Tolerated Well [See Physician Procedure note for Specifics] Pain Scale: 0-10 Numeric [Pain] -Is Patient Pain Free? Yes Musculoskeletal: Muscle Wasting Neurological: - - Lack of normal sensation Psych/Mental Status: Normal Affect, Appropriate Debridement Note Post-Debridement Measurements/Treatment WC - Nurse 2 - General Ulcer CM Notes Start: 07/20/19 08:18 Freq: Status: Active Protocol: Activity Type Activity Date Activity User E-Sign Co-Sign Detail Recorded Client Recorded Date Recorded By Document 07/20/19 08:33 [id number] 07/20/19 08:39 Document 07/27/19 08:39 [id number] 07/27/19 08:41 Document 08/03/19 09:36 [id number] 08/03/19 09:40 07/20/19 07/27/19 08/03/19 08:33 08:39 09:36 Wound Center Nurse 2 #1 RLE -Time 08:35 08:39 09:39 -Correct Patient Yes Yes Yes -Correct Side, Site, Position Yes Yes Yes -Correct Procedure Yes Yes Yes -Procedure Performed Yes Yes Yes -Type of Procedure Debridement Debridement Debridement -Clinical Debridement Subcutaneous Subcutaneous Subcutaneous -Post Debridement Size (cm) - Length 3 2.6 2.2 -Post Debridement Size (cm) - Width 2 1.9 1.6 -Post Debridement Size (cm) - Depth 0.2 0.2 0.2 -Total Square Cm 6 4.94 3.52 -Wound/Ulcer Outcome Not Healed Not Healed Not Healed -Ulcer Cleansing Rinsed/ Rinsed/ Rinsed/ Irrigated with Irrigated with Irrigated with Saline Saline Saline -Foul Odor after Cleansing No No No -Bioengineered Tissue Yes Yes Yes -Type of bioengineered Tissue EPIFIX EPIFIX EPIFIX -Expiration Date 12/16/23 04/17/24 01/16/24 -Product Lot Number [id number] -Percent Used 100 100 100 -Saline Lot Number [id number] -Bleeding Controlled with Pressure Pressure Pressure -Offloading No No No -Treatment Response Procedure Procedure Procedure Tolerated Well Tolerated Well Tolerated Well Pain Scale: 0-10 Numeric Is Patient Pain Free? Yes Yes Yes Wound debrided: leg Laterality: Right Type of Debridement: Excisional debridement Anesthesia Used: 5% Lidocaine Gel Depth: in the subcutaneous layer Percentage of wound debrided: 100 Instrument Used: #15 blade Tissue Removed: fibrous, devitalized subcutaneous, biofilm, slough Severity: Fat Layer Exposed Amount of bleeding with debridement: Mild Bleeding Controlled with: Pressure Patient tolerated procedure well Assessment/Plan Assessment: Right leg ulcer, with fat layer exposed, with cellulitis resolved. Leg edema bilateral. Venous insufficiency. Chronic and acute deep venous thrombosis. Malnutrition suspected. Diabetes Plan: To continue to wear compression stockings that he recently obtained and use a donning device to help with applications. Epi fix applied with wound veil, steri strips and gauze dressing. Verbal consent was obtained and he tolerated this well. 100% of the product was utilized. The indication and anticipated healing time and management was discussed. He will remove this product in 1 week and will proceed with changing dressing daily with [employer]. follow up in 2 weeks. continue elevation
[2019-08-16 13:40] VITALS: BP 133/71; PULSE 64; RESP 18; TEMP 36.5; BMI 39.6
--- NOTE | 2019-08-16 14:08 | PN.PCM_ITS ---
(1) Ulcer of right lower extremity with fat layer exposed Status: Chronic Current Visit: Yes Code(s): L97.912 - Non-pressure chronic ulcer of unspecified part of right lower leg with fat layer exposed (2) Leg edema Status: Chronic Current Visit: Yes Code(s): R60.0 - Localized edema (3) Venous insufficiency Status: Chronic Current Visit: Yes Code(s): I87.2 - Venous insufficiency (chronic) (peripheral) (4) Malnutrition Status: Suspected Current Visit: Yes Code(s): E46 - Unspecified protein- calorie malnutrition Type of Wound Date of Service: 08/16/19 Chief Complaint: Right leg ulcer History of Wound: This 68-year-old male with significant past medical history of diabetes presented to the wound healing center complaining of a to need nonhealing ulcer. His pain has decreased. He denies claudication. He denies rest burning, tingling, or numbness. He denies current fever, chill, nausea, vomiting. He obtain his arterial and venous studies. It was noted that he has recent acute blood clot and previous chronic blood clots. He continues on Eliquis anticoagulation plan. This is continued. He did schedule a vascular referral as advised for his venous insufficiency and was advised to proceed with compression garments and a follow-up in [address] Perez provided a compression stocking prescription and did obtain these. He is with his today. He is ready to proceed with epifix application today. He sustained a new anterior leg ulcer secondary to his boot rubbing. He denies pain. He denies odor or redness. The onset of the new ulcer site is 1 week. Progress of Wound: improving - Physical Exam Vital Signs Temp Pulse Resp BP 97.7 F L 64 18 133/71 H 08/16/19 13:40 08/16/19 13:40 08/16/19 13:40 08/16/19 13:40 General: Alert, Oriented x3, Cooperative, No apparent distress HEENT: Atraumatic Extremities: No cyanosis, Capillary Refill Less than 3 Seconds, No Calf Tenderness, Diminished Peripheral Pulses, Edema Skin: Ulcer/ Wound - No purulence, erythema, string, odor, infection. New skin discontinuity to anterior right leg with granular base. The more chronic lateral leg ulcer site has decreased fibrous tissue and improvement in granulation tissue and decreased depth. The adjacent skin is hairless and atrophic Wound Measurements and Assessment WC - Nurse 1 - General Ulcer Measurement Start: 07/20/19 08:18 Freq: Status: Active Protocol: Activity Type Activity Date Activity User E-Sign Co-Sign Detail Recorded Client Recorded Date Recorded By Document 08/16/19 13:40 DL [id number] 08/16/19 13:49 DL 08/16/19 13:40 Wound Center Nurse 1 [Ulcer Assessment] #2 R Leg inf. -Current Size (cm) - Length 2.2 -Current Size (cm) - Width 1 -Current Size (cm) - Depth 0.1 -Total Square Cm 2.2 -Photo Taken Yes -Exudate Amt Small -Exudate Type Serosanguineous -Wound Margin Distinct, Outline Attached -Granulation Amt Large (67-100%) -Granulation Quality Red -Necrosis Amt None Present (0 %) -Structure Exposed N/A -Texture (Mandy-wound Skin Appearance) Localized Edema ,Scarring -Moisture (Mandy-wound Skin Appearance Dry/Scaly ) -Color (Mandy-wound Skin Appearance) Rubor -Temperature (Mandy-wound Skin No Abnormality Appearance) (Pt Warm) -Tenderness on Palpation (Mandy-wound No Skin Appearance) -Ulcer Cleansing Wound Cleanser -Foul Odor after Cleansing No -Anesthetic Used 4% Lidocaine Solution #1 RLE -Current Size (cm) - Length 1.6 -Current Size (cm) - Width 1.4 -Current Size (cm) - Depth 0.1 -Total Square Cm 2.24 -Photo Taken No -Exudate Amt Small -Exudate Type Serosanguineous -Wound Margin Distinct, Outline Attached -Granulation Amt Medium (34-66%) -Granulation Quality Red -Necrosis Amt Medium (34-66%) -Necrotic Tissue Type Adherent Slough -Structure Exposed N/A -Texture (Mandy-wound Skin Appearance) Localized Edema ,Scarring -Moisture (Mandy-wound Skin Appearance Dry/Scaly ) -Color (Mandy-wound Skin Appearance) Rubor -Temperature (Mandy-wound Skin No Abnormality Appearance) (Pt Warm) -Tenderness on Palpation (Mandy-wound No Skin Appearance) -Ulcer Cleansing Rinsed/ Irrigated with Saline -Foul Odor after Cleansing No -Anesthetic Used 4% Lidocaine Solution,5% Lidocaine Gel [Edema Assessment] -Right Calf (cm) 43 -Right Ankle (cm) 26.5 WC - Nurse 2 - General Ulcer CM Notes Start: 07/20/19 08:18 Freq: Status: Active Protocol: Activity Type Activity Date Activity User E-Sign Co-Sign Detail Recorded Client Recorded Date Recorded By Document 08/16/19 13:56 DL [id number] 08/16/19 14:01 DL 08/16/19 13:56 Wound Center Nurse 2 [Procedure/Treatment] #2 R Leg inf. -Time 13:58 -Correct Patient Yes -Correct Side, Site, Position Yes -Correct Procedure Yes -Procedure Performed Yes -Type of Procedure Debridement -Clinical Debridement Subcutaneous -Post Debridement Size (cm) - Length 2.3 -Post Debridement Size (cm) - Width 1.0 -Post Debridement Size (cm) - Depth 0.1 -Total Square Cm 2.30 -Wound/Ulcer Outcome Not Healed -Ulcer Cleansing Rinsed/ Irrigated with Saline -Foul Odor after Cleansing No -Bioengineered Tissue No -Bleeding Controlled with Pressure -Offloading No -Treatment Response Procedure Tolerated Well #1 RLE -Time 13:59 -Correct Patient Yes -Correct Side, Site, Position Yes -Correct Procedure Yes -Procedure Performed Yes -Type of Procedure Debridement -Clinical Debridement Subcutaneous -Post Debridement Size (cm) - Length 1.6 -Post Debridement Size (cm) - Width 1.5 -Post Debridement Size (cm) - Depth 0.1 -Total Square Cm 2.40 -Wound/Ulcer Outcome Not Healed -Ulcer Cleansing Rinsed/ Irrigated with Saline -Foul Odor after Cleansing No -Bioengineered Tissue Yes -Type of bioengineered Tissue EPIFIX -Expiration Date 11/16/23 -Product Lot Number [id number] -Percent Used 100 -Saline Lot Number [id number] -Bleeding Controlled with Pressure -Offloading No -Treatment Response Procedure Tolerated Well [See Physician Procedure note for Specifics] Pain Scale: 0-10 Numeric [Pain] -Is Patient Pain Free? Yes Musculoskeletal: No Tenderness to Palpation of Joints or Extremities, Muscle Wasting Neurological: Sensory exam intact to light touch and pain Psych/Mental Status: Normal Affect, Appropriate Debridement Note Post-Debridement Measurements/Treatment WC - Nurse 2 - General Ulcer CM Notes Start: 07/20/19 08:18 Freq: Status: Active Protocol: Activity Type Activity Date Activity User E-Sign Co-Sign Detail Recorded Client Recorded Date Recorded By Document 07/20/19 08:33 [id number] 07/20/19 08:39 Document 07/27/19 08:39 [id number] 07/27/19 08:41 JF Document 08/03/19 09:36 [id number] 08/03/19 09:40 JF Document 08/16/19 13:56 DL [id number] 08/16/19 14:01 DL 07/20/19 07/27/19 08/03/19 08:33 08:39 09:36 Wound Center Nurse 2 #2 R Leg inf. -Time -Correct Patient -Correct Side, Site, Position -Correct Procedure -Procedure Performed -Type of Procedure -Clinical Debridement -Post Debridement Size (cm) - Length -Post Debridement Size (cm) - Width -Post Debridement Size (cm) - Depth -Total Square Cm -Wound/Ulcer Outcome -Ulcer Cleansing -Foul Odor after Cleansing -Bioengineered Tissue -Bleeding Controlled with -Offloading -Treatment Response #1 RLE -Time 08:35 08:39 09:39 -Correct Patient Yes Yes Yes -Correct Side, Site, Position Yes Yes Yes -Correct Procedure Yes Yes Yes -Procedure Performed Yes Yes Yes -Type of Procedure Debridement Debridement Debridement -Clinical Debridement Subcutaneous Subcutaneous Subcutaneous -Post Debridement Size (cm) - Length 3 2.6 2.2 -Post Debridement Size (cm) - Width 2 1.9 1.6 -Post Debridement Size (cm) - Depth 0.2 0.2 0.2 -Total Square Cm 6 4.94 3.52 -Wound/Ulcer Outcome Not Healed Not Healed Not Healed -Ulcer Cleansing Rinsed/ Rinsed/ Rinsed/ Irrigated with Irrigated with Irrigated with Saline Saline Saline -Foul Odor after Cleansing No No No -Bioengineered Tissue Yes Yes Yes -Type of bioengineered Tissue EPIFIX EPIFIX EPIFIX -Expiration Date 12/16/23 04/17/24 01/16/24 -Product Lot Number [id number] -Percent Used 100 100 100 -Saline Lot Number [id number] -Bleeding Controlled with Pressure Pressure Pressure -Offloading No No No -Treatment Response Procedure Procedure Procedure Tolerated Well Tolerated Well Tolerated Well Pain Scale: 0-10 Numeric Is Patient Pain Free? Yes Yes Yes 08/16/19 13:56 Wound Center Nurse 2 #2 R Leg inf. -Time 13:58 -Correct Patient Yes -Correct Side, Site, Position Yes -Correct Procedure Yes -Procedure Performed Yes -Type of Procedure Debridement -Clinical Debridement Subcutaneous -Post Debridement Size (cm) - Length 2.3 -Post Debridement Size (cm) - Width 1.0 -Post Debridement Size (cm) - Depth 0.1 -Total Square Cm 2.30 -Wound/Ulcer Outcome Not Healed -Ulcer Cleansing Rinsed/ Irrigated with Saline -Foul Odor after Cleansing No -Bioengineered Tissue No -Bleeding Controlled with Pressure -Offloading No -Treatment Response Procedure Tolerated Well #1 RLE -Time 13:59 -Correct Patient Yes -Correct Side, Site, Position Yes -Correct Procedure Yes -Procedure Performed Yes -Type of Procedure Debridement -Clinical Debridement Subcutaneous -Post Debridement Size (cm) - Length 1.6 -Post Debridement Size (cm) - Width 1.5 -Post Debridement Size (cm) - Depth 0.1 -Total Square Cm 2.40 -Wound/Ulcer Outcome Not Healed -Ulcer Cleansing Rinsed/ Irrigated with Saline -Foul Odor after Cleansing No -Bioengineered Tissue Yes -Type of bioengineered Tissue EPIFIX -Expiration Date 11/16/23 -Product Lot Number [id number] -Percent Used 100 -Saline Lot Number [id number] -Bleeding Controlled with Pressure -Offloading No -Treatment Response Procedure Tolerated Well Pain Scale: 0-10 Numeric Is Patient Pain Free? Yes Wound debrided: lateral leg Laterality: Right Wound Grade/Stage: grade 1 Type of Debridement: Excisional debridement Anesthesia Used: 5% Lidocaine Gel Depth: in the subcutaneous layer Percentage of wound debrided: 100 Instrument Used: #15 blade Tissue Removed: fibrous, devitalized subcutaneous, biofilm, slough Severity: Fat Layer Exposed Amount of bleeding with debridement: Mild Bleeding Controlled with: Pressure Patient tolerated procedure well - Additional Wound Wound debrided: anterior leg Laterality: Right Wound Grade/Stage: grade 1 Type of Debridement: Excisional debridement Anesthesia Used: 5% Lidocaine Gel Depth: in the subcutaneous layer Percentage of wound debrided: 100 Instrument Used: #15 blade Tissue Removed: fibrous, devitalized subcutaneous, biofilm, slough Severity: Fat Layer Exposed Amount of bleeding with debridement: Mild Bleeding Controlled with: Pressure Patient tolerated procedure: Patient tolerated procedure well Assessment/Plan Active Problems Ulcer of right lower extremity with fat layer exposed (Chronic) Leg edema (Chronic) Venous insufficiency (Chronic) Assessment: Right leg ulcer, with fat layer exposed, with cellulitis resolved- lateral. Right leg ulcer with fat layer exposed-anterior, new. Leg edema bilateral. Venous insufficiency. Chronic and acute deep venous thrombosis. Malnutrition suspected. Diabetes Plan: To continue to wear compression stockings that he recently obtained and use a donning device to help with applications. Epi fix applied with wound veil, steri strips and gauze dressing. Verbal consent was obtained and he tolerated this well. 100% of the product was utilized. The indication and anticipated healing time and management was discussed. follow up in 1 weeks. continue elevation. He is reassured that his new ulcer site is not infected and he was advised to keep pressure from his boot in shoe off of this site and also the adjacent friable skin.
== END 2019-08-16 23:59 ==
LOC: WC 13:45
PROVIDERS: Family Provider Family Medicine; PCP Family Medicine; Referring Provider Podiatrist; Visit Provider Podiatrist
DX: E11.622 Type 2 diabetes mellitus with other skin ulcer (principal); L97.812 Non-pressure chronic ulcer of other part of right lower leg with fat layer exposed; I87.2 Venous insufficiency (chronic) (peripheral); R60.0 Localized edema; Z86.718 Personal history of other venous thrombosis and embolism; Z79.01 Long term (current) use of anticoagulants
CPT/HCPCS: 11042; 15271; Q4186

== ENCOUNTER 2019-09-07 08:00 | Outpatient (RCR) | payer OTHER, SELFPAY ==
[2019-08-17 00:41] VITALS: BP 133/71; PULSE 64; RESP 18; TEMP 36.5
[2019-08-24 08:06] VITALS: BP 121/67; PULSE 68; RESP 18; TEMP 36.1; BMI 39.6
--- NOTE | 2019-08-24 08:38 | PCM.WC.PN ---
(1) Ulcer of right lower extremity with fat layer exposed Status: Chronic Code(s): L97.912 - Non-pressure chronic ulcer of unspecified part of right lower leg with fat layer exposed (2) Leg edema Status: Chronic Code(s): R60.0 - Localized edema (3) Venous insufficiency Status: Chronic Code(s): I87.2 - Venous insufficiency (chronic) (peripheral) (4) Malnutrition Status: Suspected Code(s): E46 - Unspecified protein-calorie malnutrition Type of Wound Date of Service: 08/24/19 Chief Complaint: Right leg ulcer History of Wound: This 68-year-old male with significant past medical history of diabetes presented to the wound healing center complaining of a to need nonhealing ulcer. His pain has decreased. He denies claudication. He denies rest burning, tingling, or numbness. He denies current fever, chill, nausea, vomiting. He obtain his arterial and venous studies. It was noted that he has recent acute blood clot and previous chronic blood clots. He continues on Eliquis anticoagulation plan. This is continued. He did schedule a vascular referral as advised for his venous insufficiency and was advised to proceed with compression garments and a follow-up in [address] Perez provided a compression stocking prescription and did obtain these. He is with his today. He is ready to proceed with epifix application today. He sustained a new anterior leg ulcer recently secondary to his boot rubbing which remains open. He denies pain. He denies odor or redness. Progress of Wound: improving - Physical Exam Vital Signs Temp Pulse Resp BP 97 F L 68 18 121/67 H 08/24/19 08:06 08/24/19 08:06 08/24/19 08:06 08/24/19 08:06 General: Alert, Oriented x3, Cooperative, No apparent distress Extremities: No cyanosis, Capillary Refill Less than 3 Seconds, No Calf Tenderness, Diminished Peripheral Pulses, Edema Skin: Ulcer/ Wound - No purulence, erythema, streaking, odor, infection. The peripheral skin is hairless and atrophic. The ulcer has peripheral epithelialization and reduction in depth Wound Measurements and Assessment WC - Nurse 1 - General Ulcer Measurement Start: 08/24/19 08:06 Freq: Status: Active Protocol: Activity Type Activity Date Activity User E-Sign Co-Sign Detail Recorded Client Recorded Date Recorded By Document 08/24/19 08:06 RB [id number] 08/24/19 08:18 RB 08/24/19 08:06 Wound Center Nurse 1 [Ulcer Assessment] #2 R Leg inf. -Combined with other wound No -Current Size (cm) - Length 0.1 -Current Size (cm) - Width 0.1 -Current Size (cm) - Depth 0.1 -Total Square Cm 0.01 -Tunneling No -Undermining/Tunneling No -Circular Undermining No -Exudate Amt None Present -Wound Margin Flat & Intact -Granulation Amt Medium (34-66%) -Granulation Quality [place] -Slough/Fibrin Yes -Necrosis Amt Small (1-33%) -Necrotic Tissue Type Adherent Slough -Structure Exposed N/A -Texture (Mandy-wound Skin Appearance) Assessed -Moisture (Mandy-wound Skin Appearance Assessed,Dry/ ) Scaly -Color (Mandy-wound Skin Appearance) Assessed -Temperature (Mandy-wound Skin No Abnormality Appearance) (Pt Warm) -Tenderness on Palpation (Mandy-wound No Skin Appearance) -Ulcer Cleansing Wound Cleanser -Foul Odor after Cleansing No -Anesthetic Used 5% Lidocaine Gel #1 RLE -Combined with other wound No -Current Size (cm) - Length 0.1 -Current Size (cm) - Width 0.1 -Current Size (cm) - Depth 0.1 -Total Square Cm 0.01 -Tunneling No -Undermining/Tunneling No -Circular Undermining No -Exudate Amt None Present -Wound Margin Flat & Intact -Granulation Amt Medium (34-66%) -Granulation Quality [place] -Slough/Fibrin Yes -Necrosis Amt Small (1-33%) -Necrotic Tissue Type Adherent Slough -Structure Exposed N/A -Texture (Amndy-wound Skin Appearance) Assessed -Moisture (Mandy-wound Skin Appearance Dry/Scaly ) -Color (Mandy-wound Skin Appearance) Assessed -Temperature (Mandy-wound Skin No Abnormality Appearance) (Pt Warm) -Tenderness on Palpation (Mandy-wound No Skin Appearance) -Ulcer Cleansing Wound Cleanser -Foul Odor after Cleansing No -Anesthetic Used 5% Lidocaine Gel [Edema Assessment] -Lower Limb Edema Present Yes -Right Calf (cm) 44.5 -Right Ankle (cm) 26.5 Musculoskeletal: No Tenderness to Palpation of Joints or Extremities, Muscle Wasting Neurological: Sensory exam intact to light touch and pain Psych/Mental Status: Normal Affect, Appropriate Debridement Note Wound debrided: anterior leg (lateral), anterior leg (medial) Laterality: Right Wound Grade/Stage: grade 1 Type of Debridement: Excisional debridement Anesthesia Used: 5% Lidocaine Gel Depth: in the subcutaneous layer Percentage of wound debrided: 100 Instrument Used: #15 blade Tissue Removed: fibrous, devitalized subcutaneous, biofilm, slough Severity: Fat Layer Exposed Amount of bleeding with debridement: Mild Bleeding Controlled with: Pressure Patient tolerated procedure well Assessment/Plan Assessment: Right leg ulcer, with fat layer exposed, with cellulitis resolved-lateral. Right leg ulcer with fat layer exposed-anterior, new. Leg edema bilateral. Venous insufficiency. Chronic and acute deep venous thrombosis. Malnutrition suspected. Diabetes Plan: I reviewed and discussed his case. Subcutaneous excisional debridement was performed as noted in the clinical panel. To continue to wear compression stockings that he recently obtained and use a donning device to help with applications. Epi fix applied with wound veil, steri strips and gauze dressing. Verbal consent was obtained and he tolerated this well. 100% of the product was utilized. The indication and anticipated healing time and management was discussed. follow up in 1 weeks. continue elevation. He is reassured that each site is not infected and he was advised to keep pressure from his boot in shoe off of this site and also the adjacent friable skin. To follow-up with Dr. Peerz as advised and proceed forth any recommended intervention.
[2019-08-31 08:01] VITALS: BP 130/75; PULSE 67; RESP 18; TEMP 36.1; BMI 39.6
--- NOTE | 2019-08-31 10:50 | PN.PCM_ITS ---
(1) Ulcer of right lower extremity with fat layer exposed Status: Chronic Current Visit: Yes Code(s): L97.912 - Non-pressure chronic ulcer of unspecified part of right lower leg with fat layer exposed (2) Leg edema Status: Chronic Current Visit: Yes Code(s): R60.0 - Localized edema (3) Venous insufficiency Status: Chronic Current Visit: Yes Code(s): I87.2 - Venous insufficiency (chronic) (peripheral) (4) Malnutrition Status: Suspected Current Visit: Yes Code(s): E46 - Unspecified protein- calorie malnutrition Type of Wound Date of Service: 08/31/19 Chief Complaint: Right leg ulcer History of Wound: This 68-year-old male with significant past medical history of diabetes presented to the wound healing center complaining of a to need nonhealing ulcer. His pain has decreased. He denies claudication. He denies rest burning, tingling, or numbness. He denies current fever, chill, nausea, vomiting. He obtain his arterial and venous studies. It was noted that he has recent acute blood clot and previous chronic blood clots. He continues on Eliquis anticoagulation plan. This is continued. He did schedule a vascular referral as advised for his venous insufficiency and was advised to proceed with compression garments and a follow-up in [address] Perez provided a compression stocking prescription and did obtain these. He is with his today. He is ready to proceed with epifix application today. He sustained a new anterior leg ulcer recently secondary to his suspected movement of the dressing on his sensitive skin while he is very active this past week. New ulcer site that was present last week has healed and this is an additional new ulcer. He denies pain. He denies odor or redness. Progress of Wound: improving - Physical Exam Vital Signs Temp Pulse Resp BP 97.0 F L 67 18 130/75 H 08/31/19 08:01 08/31/19 08:01 08/31/19 08:01 08/31/19 08:01 General: Alert, Oriented x3, Cooperative, No apparent distress Extremities: No cyanosis, Capillary Refill Less than 3 Seconds, No Calf Tenderness, Diminished Peripheral Pulses, Edema Skin: Ulcer/ Wound - No purulence, erythema, string, odor, infection. There is epithelialization noted to the anterior more medial ulcer site that was new last week. There is now a new skin discontinuity proximal to that site has a granular superficial base with no necrosis or deep tissue exposure. Initial ulcer site more anterior laterally located mid leg does not have any purulence, erythema, string, odor, or infection. This is now a cluster which involves 30% open subcutaneous tissue exposed with granulation tissue. Wound Measurements and Assessment WC - Nurse 1 - General Ulcer Measurement Start: 08/24/19 08:06 Freq: Status: Active Protocol: Activity Type Activity Date Activity User E-Sign Co-Sign Detail Recorded Client Recorded Date Recorded By Document 08/31/19 08:01 DV [id number] 08/31/19 08:10 DV 08/31/19 08:01 Wound Center Nurse 1 [Ulcer Assessment] #3 R Leg inf. -Combined with other wound No -Current Size (cm) - Length 0.1 -Current Size (cm) - Width 0.1 -Current Size (cm) - Depth 0.1 -Total Square Cm 0.01 -Photo Taken No -Epithelialization None Present -Tunneling No -Undermining/Tunneling No -Circular Undermining No -Classification - Thickness Full Thickness without Exposed Support Structure #1 RLE -Combined with other wound No -Current Size (cm) - Length 0.1 -Current Size (cm) - Width 0.1 -Current Size (cm) - Depth 0.1 -Total Square Cm 0.01 -Photo Taken No -Epithelialization None Present -Tunneling No -Undermining/Tunneling No -Circular Undermining No -Classification - Thickness Full Thickness without Exposed Support Structure -Wound Margin Indistinct, Non -Visible -Granulation Amt None Present (0 %) -Granulation Quality N/A -Slough/Fibrin No - Nurse 2 - General Ulcer CM Notes Start: 08/24/19 08:06 Freq: Status: Active Protocol: Activity Type Activity Date Activity User E-Sign Co-Sign Detail Recorded Client Recorded Date Recorded By Document 08/31/19 08:20 PASCUAL [id number] 08/31/19 08:25 JF 08/31/19 08:20 Wound Center Nurse 2 [Procedure/Treatment] 4-right leg superior -Time 08:24 -Correct Patient Yes -Correct Side, Site, Position Yes -Correct Procedure Yes -Procedure Performed Yes -Type of Procedure Debridement -Clinical Debridement Subcutaneous -Post Debridement Size (cm) - Length 1.1 -Post Debridement Size (cm) - Width 0.9 -Post Debridement Size (cm) - Depth 0.1 -Total Square Cm 0.99 -Wound/Ulcer Outcome Not Healed -Ulcer Cleansing Rinsed/ Irrigated with Saline -Foul Odor after Cleansing No -Bioengineered Tissue Yes -Type of bioengineered Tissue EPIFIX -Expiration Date 05/17/24 -Product Lot Number [id number] -Percent Used 100 -Saline Lot Number [id number] -Bleeding Controlled with Pressure -Offloading No -Treatment Response Procedure Tolerated Well #3 R Leg inf. -Correct Patient No -Correct Side, Site, Position No -Correct Procedure No -Procedure Performed No -Post Debridement Size (cm) - Length 0 -Post Debridement Size (cm) - Width 0 -Post Debridement Size (cm) - Depth 0 -Total Square Cm 0 -Wound/Ulcer Outcome Healed- Epithelialized #1 RLE -Time 08:22 -Correct Patient Yes -Correct Side, Site, Position Yes -Correct Procedure Yes -Procedure Performed Yes -Type of Procedure Debridement -Clinical Debridement Subcutaneous -Post Debridement Size (cm) - Length 1.4 -Post Debridement Size (cm) - Width 0.5 -Post Debridement Size (cm) - Depth 0.1 -Total Square Cm 0.70 -Wound/Ulcer Outcome Not Healed -Ulcer Cleansing Rinsed/ Irrigated with Saline -Foul Odor after Cleansing No -Bioengineered Tissue Yes -Type of bioengineered Tissue EPIFIX -Expiration Date 05/17/24 -Product Lot Number [id number] -Percent Used 100 -Saline Lot Number [id number] -Bleeding Controlled with Pressure -Offloading No -Treatment Response Procedure Tolerated Well [See Physician Procedure note for Specifics] Pain Scale: 0-10 Numeric [Pain] -Is Patient Pain Free? Yes Musculoskeletal: No Tenderness to Palpation of Joints or Extremities, Muscle Wasting Neurological: - - Lack of normal sensation light touch Psych/Mental Status: Normal Affect, Appropriate Debridement Note Post-Debridement Measurements/Treatment WC - Nurse 2 - General Ulcer CM Notes Start: 08/24/19 08:06 Freq: Status: Active Protocol: Activity Type Activity Date Activity User E-Sign Co-Sign Detail Recorded Client Recorded Date Recorded By Document 08/24/19 08:35 PASCUAL [id number] 08/24/19 08:39 JF Document 08/31/19 08:20 [id number] 08/31/19 08:25 JF 08/24/19 08/31/19 08:35 08:20 Wound Center Nurse 2 4-right leg superior -Time 08:24 -Correct Patient Yes -Correct Side, Site, Position Yes -Correct Procedure Yes -Procedure Performed Yes -Type of Procedure Debridement -Clinical Debridement Subcutaneous -Post Debridement Size (cm) - Length 1.1 -Post Debridement Size (cm) - Width 0.9 -Post Debridement Size (cm) - Depth 0.1 -Total Square Cm 0.99 -Wound/Ulcer Outcome Not Healed -Ulcer Cleansing Rinsed/ Irrigated with Saline -Foul Odor after Cleansing No -Bioengineered Tissue Yes -Type of bioengineered Tissue EPIFIX -Expiration Date 05/17/24 -Product Lot Number [id number] -Percent Used 100 -Saline Lot Number [id number] -Bleeding Controlled with Pressure -Offloading No -Treatment Response Procedure Tolerated Well #3 R Leg inf. -Time 08:36 -Correct Patient Yes No -Correct Side, Site, Position Yes No -Correct Procedure Yes No -Procedure Performed Yes No -Type of Procedure Debridement -Clinical Debridement Subcutaneous -Post Debridement Size (cm) - Length 0.7 0 -Post Debridement Size (cm) - Width 0.7 0 -Post Debridement Size (cm) - Depth 0.1 0 -Total Square Cm 0.49 0 -Wound/Ulcer Outcome Not Healed Healed- Epithelialized -Ulcer Cleansing Rinsed/ Irrigated with Saline -Foul Odor after Cleansing No -Bioengineered Tissue Yes -Type of bioengineered Tissue EPIFIX -Expiration Date 04/17/24 -Product Lot Number [id number] -Percent Used 100 -Saline Lot Number [id number] -Bleeding Controlled with Pressure -Offloading No -Treatment Response Procedure Tolerated Well #1 RLE -Time 08:37 08:22 -Correct Patient Yes Yes -Correct Side, Site, Position Yes Yes -Correct Procedure Yes Yes -Procedure Performed Yes Yes -Type of Procedure Debridement Debridement -Clinical Debridement Subcutaneous Subcutaneous -Post Debridement Size (cm) - Length 1.4 1.4 -Post Debridement Size (cm) - Width 0.7 0.5 -Post Debridement Size (cm) - Depth 0.1 0.1 -Total Square Cm 0.98 0.70 -Wound/Ulcer Outcome Not Healed Not Healed -Ulcer Cleansing Rinsed/ Rinsed/ Irrigated with Irrigated with Saline Saline -Foul Odor after Cleansing No No -Bioengineered Tissue Yes Yes -Type of bioengineered Tissue EPIFIX EPIFIX -Expiration Date 04/17/24 05/17/24 -Product Lot Number [id number] -Percent Used 100 100 -Saline Lot Number [id number] -Bleeding Controlled with Pressure Pressure -Offloading No No -Treatment Response Procedure Procedure Tolerated Well Tolerated Well Pain Scale: 0-10 Numeric Is Patient Pain Free? Yes Yes Wound debrided: leg inferior, leg anterior (new) Laterality: Right Type of Debridement: Excisional debridement Anesthesia Used: 5% Lidocaine Gel Depth: in the subcutaneous layer Percentage of wound debrided: 100 - anterior, 30 - leg inferior, cluster Instrument Used: #15 blade Tissue Removed: fibrous, devitalized subcutaneous, biofilm, slough Severity: Fat Layer Exposed Amount of bleeding with debridement: Mild Bleeding Controlled with: Pressure Patient tolerated procedure well Assessment/Plan Active Problems Ulcer of right lower extremity with fat layer exposed (Chronic) Leg edema (Chronic) Venous insufficiency (Chronic) Assessment: Right leg ulcer, with fat layer exposed, with cellulitis resolved- lateral. Right leg ulcer with fat layer exposed-anterior, healed. Right leg ulcer with fat layer exposed more anterior medially and superior to the healed ulcer site, no infection noted. Leg edema bilateral. Venous insufficiency. Chronic and acute deep venous thrombosis. Malnutrition suspected. Diabetes Plan: I reviewed and discussed his case. Subcutaneous excisional debridement was performed as noted in the clinical panel. To continue to wear compression stockings that he recently obtained and use a donning device to help with applications. Epi fix applied with wound veil, steri strips and gauze dressing. Verbal consent was obtained and he tolerated this well. 100% of the product was utilized. The indication and anticipated healing time and management was discussed. follow up in 1 weeks. continue elevation. He is reassured that each site is not infected and he was advised to keep pressure from his boot in shoe off of this site and also the adjacent friable skin. To follow-up with Dr. Perez as advised and proceed forth any recommended intervention.
[2019-09-07 08:10] VITALS: BP 130/71; PULSE 66; RESP 18; TEMP 35.7; BMI 39.6
--- NOTE | 2019-09-07 09:47 | PN.PCM_ITS ---
(1) Ulcer of right lower extremity with fat layer exposed Status: Resolved Current Visit: Yes Code(s): L97.912 - Non-pressure chronic ulcer of unspecified part of right lower leg with fat layer exposed (2) Leg edema Status: Chronic Current Visit: Yes Code(s): R60.0 - Localized edema (3) Venous insufficiency Status: Chronic Current Visit: Yes Code(s): I87.2 - Venous insufficiency (chronic) (peripheral) Type of Wound Date of Service: 09/07/19 Chief Complaint: Right leg ulcer History of Wound: This 68-year-old male with significant past medical history of diabetes presented to the wound healing center complaining of a to need nonhealing ulcer. His pain has decreased. He denies claudication. He denies rest burning, tingling, or numbness. He denies current fever, chill, nausea, vomiting. He obtain his arterial and venous studies. It was noted that he has recent acute blood clot and previous chronic blood clots. He continues on Eliquis anticoagulation plan. This is continued. He did schedule a vascular referral as advised for his venous insufficiency and was advised to proceed with compression garments and a follow-up in [address] Perez provided a compression stocking prescription and did obtain these. He is with his today. He denies drainage. Progress of Wound: healed - Physical Exam Vital Signs Temp Pulse Resp BP 96.2 F L 66 18 130/71 H 09/07/19 08:10 09/07/19 08:10 09/07/19 08:10 09/07/19 08:10 General: Alert, Oriented x3, Cooperative, No apparent distress Skin: Ulcer/ Wound - no infection, no drainage. healed w/ full epithelialization Wound Measurements and Assessment WC - Nurse 1 - General Ulcer Measurement Start: 08/24/19 08:06 Freq: Status: Active Protocol: Activity Type Activity Date Activity User E-Sign Co-Sign Detail Recorded Client Recorded Date Recorded By Document 09/07/19 08:10 RB [id number] 09/07/19 08:22 RB 09/07/19 08:10 Wound Center Nurse 1 [Ulcer Assessment] 4-right leg superior -Combined with other wound No -Current Size (cm) - Length 0.1 -Current Size (cm) - Width 0.1 -Current Size (cm) - Depth 0.1 -Total Square Cm 0.01 -Tunneling No -Undermining/Tunneling No -Circular Undermining No -Exudate Amt None Present -Wound Margin Flat & Intact -Granulation Amt Medium (34-66%) -Granulation Quality Antoine -Slough/Fibrin Yes -Necrosis Amt Medium (34-66%) -Necrotic Tissue Type Adherent Slough -Structure Exposed N/A -Texture (Mandy-wound Skin Appearance) Assessed -Moisture (Mandy-wound Skin Appearance Assessed ) -Color (Mandy-wound Skin Appearance) Assessed -Temperature (Mandy-wound Skin No Abnormality Appearance) (Pt Warm) -Tenderness on Palpation (Mandy-wound No Skin Appearance) -Ulcer Cleansing Wound Cleanser -Foul Odor after Cleansing No -Anesthetic Used 4% Lidocaine Solution #1 RLE -Combined with other wound No -Current Size (cm) - Length 0.1 -Current Size (cm) - Width 0.1 -Current Size (cm) - Depth 0.1 -Total Square Cm 0.01 -Tunneling No -Undermining/Tunneling No -Exudate Amt None Present -Wound Margin Flat & Intact -Granulation Amt Medium (34-66%) -Granulation Quality Antoine -Slough/Fibrin Yes -Necrosis Amt Large (67-100%) -Necrotic Tissue Type Adherent Slough -Structure Exposed N/A -Texture (Mandy-wound Skin Appearance) Assessed -Moisture (Mandy-wound Skin Appearance Assessed ) -Color (Mandy-wound Skin Appearance) Assessed -Temperature (Mandy-wound Skin No Abnormality Appearance) (Pt Warm) -Tenderness on Palpation (Mandy-wound No Skin Appearance) -Ulcer Cleansing Wound Cleanser -Foul Odor after Cleansing No -Anesthetic Used 4% Lidocaine Solution [Edema Assessment] -Lower Limb Edema Present Yes -Right Calf (cm) 44.5 -Right Ankle (cm) 27.2 WC - Nurse 2 - General Ulcer CM Notes Start: 08/24/19 08:06 Freq: Status: Active Protocol: Activity Type Activity Date Activity User E-Sign Co-Sign Detail Recorded Client Recorded Date Recorded By Document 09/07/19 08:32 PASCUAL [id number] 09/07/19 08:40 PASCUAL 09/07/19 08:32 Wound Center Nurse 2 [Procedure/Treatment] 4-right leg superior -Correct Patient No -Correct Side, Site, Position No -Correct Procedure No -Procedure Performed No -Post Debridement Size (cm) - Length 0 -Post Debridement Size (cm) - Width 0 -Post Debridement Size (cm) - Depth 0 -Total Square Cm 0 -Wound/Ulcer Outcome Healed- Epithelialized #1 RLE -Correct Patient No -Correct Side, Site, Position No -Correct Procedure No -Procedure Performed No -Post Debridement Size (cm) - Length 0 -Post Debridement Size (cm) - Width 0 -Post Debridement Size (cm) - Depth 0 -Total Square Cm 0 -Wound/Ulcer Outcome Healed- Epithelialized [See Physician Procedure note for Specifics] Pain Scale: 0-10 Numeric [Pain] -Is Patient Pain Free? Yes Musculoskeletal: No Tenderness to Palpation of Joints or Extremities Neurological: Sensory exam intact to light touch and pain Psych/Mental Status: Normal Affect, Appropriate Debridement Note Post-Debridement Measurements/Treatment WC - Nurse 2 - General Ulcer CM Notes Start: 08/24/19 08:06 Freq: Status: Active Protocol: Activity Type Activity Date Activity User E-Sign Co-Sign Detail Recorded Client Recorded Date Recorded By Document 08/24/19 08:35 [id number] 08/24/19 08:39 Document 08/31/19 08:20 [id number] 08/31/19 08:25 Document 09/07/19 08:32 [id number] 09/07/19 08:40 08/24/19 08/31/19 09/07/19 08:35 08:20 08:32 Wound Center Nurse 2 4-right leg superior -Time 08:24 -Correct Patient Yes No -Correct Side, Site, Position Yes No -Correct Procedure Yes No -Procedure Performed Yes No -Type of Procedure Debridement -Clinical Debridement Subcutaneous -Post Debridement Size (cm) - Length 1.1 0 -Post Debridement Size (cm) - Width 0.9 0 -Post Debridement Size (cm) - Depth 0.1 0 -Total Square Cm 0.99 0 -Wound/Ulcer Outcome Not Healed Healed- Epithelialized -Ulcer Cleansing Rinsed/ Irrigated with Saline -Foul Odor after Cleansing No -Bioengineered Tissue Yes -Type of bioengineered Tissue EPIFIX -Expiration Date 05/17/24 -Product Lot Number [id number] -Percent Used 100 -Saline Lot Number [id number] -Bleeding Controlled with Pressure -Offloading No -Treatment Response Procedure Tolerated Well #3 R Leg inf. -Time 08:36 -Correct Patient Yes No -Correct Side, Site, Position Yes No -Correct Procedure Yes No -Procedure Performed Yes No -Type of Procedure Debridement -Clinical Debridement Subcutaneous -Post Debridement Size (cm) - Length 0.7 0 -Post Debridement Size (cm) - Width 0.7 0 -Post Debridement Size (cm) - Depth 0.1 0 -Total Square Cm 0.49 0 -Wound/Ulcer Outcome Not Healed Healed- Epithelialized -Ulcer Cleansing Rinsed/ Irrigated with Saline -Foul Odor after Cleansing No -Bioengineered Tissue Yes -Type of bioengineered Tissue EPIFIX -Expiration Date 04/17/24 -Product Lot Number [id number] -Percent Used 100 -Saline Lot Number [id number] -Bleeding Controlled with Pressure -Offloading No -Treatment Response Procedure Tolerated Well #1 RLE -Time 08:37 08:22 -Correct Patient Yes Yes No -Correct Side, Site, Position Yes Yes No -Correct Procedure Yes Yes No -Procedure Performed Yes Yes No -Type of Procedure Debridement Debridement -Clinical Debridement Subcutaneous Subcutaneous -Post Debridement Size (cm) - Length 1.4 1.4 0 -Post Debridement Size (cm) - Width 0.7 0.5 0 -Post Debridement Size (cm) - Depth 0.1 0.1 0 -Total Square Cm 0.98 0.70 0 -Wound/Ulcer Outcome Not Healed Not Healed Healed- Epithelialized -Ulcer Cleansing Rinsed/ Rinsed/ Irrigated with Irrigated with Saline Saline -Foul Odor after Cleansing No No -Bioengineered Tissue Yes Yes -Type of bioengineered Tissue EPIFIX EPIFIX -Expiration Date 04/17/24 05/17/24 -Product Lot Number [id number] -Percent Used 100 100 -Saline Lot Number [id number] -Bleeding Controlled with Pressure Pressure -Offloading No No -Treatment Response Procedure Procedure Tolerated Well Tolerated Well Pain Scale: 0-10 Numeric Is Patient Pain Free? Yes Yes Yes No debridement was completed today - healed Assessment/Plan Active Problems Leg edema (Chronic) Venous insufficiency (Chronic) Assessment: healed ulcers right leg. Leg edema bilateral. Venous insufficiency. Chronic and acute deep venous thrombosis. Malnutrition suspected. Diabetes Plan: I reviewed and discussed his case. the wound is healed today. to cover with gauze while this skin remodels. To continue compression and elevation. To rtc for healed wound check in 2-3 weeks. I answered his questions.
== END 2019-09-16 23:59 ==
LOC: WC 08:00
PROVIDERS: Family Provider Family Medicine; PCP Family Medicine; Referring Provider Podiatrist; Visit Provider Podiatrist
DX: E11.622 Type 2 diabetes mellitus with other skin ulcer (principal); I87.2 Venous insufficiency (chronic) (peripheral); R60.0 Localized edema; L97.812 Non-pressure chronic ulcer of other part of right lower leg with fat layer exposed; Z86.718 Personal history of other venous thrombosis and embolism
CPT/HCPCS: 15271; 99213; Q4186; G0463

== ENCOUNTER 2019-10-12 08:00 | Outpatient (RCR) | payer OTHER, SELFPAY ==
[2019-09-17 00:40] VITALS: BP 130/71; PULSE 66; RESP 18; TEMP 35.7
[2019-09-28 07:58] VITALS: BP 137/80; PULSE 70; RESP 18; TEMP 36.6; BMI 39.6
--- NOTE | 2019-09-28 09:43 | PN.PCM_ITS ---
(1) Ulcer of right lower extremity with fat layer exposed Status: Acute Current Visit: Yes Code(s): L97.912 - Non-pressure chronic ulcer of unspecified part of right lower leg with fat layer exposed (2) Leg edema Status: Chronic Current Visit: Yes Code(s): R60.0 - Localized edema (3) Venous insufficiency Status: Chronic Current Visit: Yes Code(s): I87.2 - Venous insufficiency (chronic) (peripheral) (4) Malnutrition Status: Suspected Current Visit: Yes Code(s): E46 - Unspecified protein- calorie malnutrition Type of Wound Date of Service: 09/28/19 Chief Complaint: Right leg ulcer History of Wound: This 69-year-old male with significant past medical history of diabetes presented to the wound healing center complaining of a nonhealing ulcer. he denies claudication. He denies rest burning, tingling, or numbness. He denies current fever, chill, nausea, vomiting. He obtain his arterial and venous studies. It was noted that he has recent acute blood clot and previous chronic blood clots. He continues on Eliquis anticoagulation plan. This is continued. He did schedule a vascular referral as advised for his venous insufficiency and was advised to proceed with compression garments and a follow-up in [address] Perez provided a compression stocking prescription and did obtain these. He is with his today. He recently healed his ulcer and went away on a trip. This reopened with an onset of 2 days ago. He relates it is seeping. He denies redness or odor or feeling ill. Progress of Wound: healed - Physical Exam Vital Signs Temp Pulse Resp BP 97.8 F 70 18 137/80 H 09/28/19 07:58 09/28/19 07:58 09/28/19 07:58 09/28/19 07:58 General: Alert, Oriented x3, Cooperative, No apparent distress Extremities: No cyanosis, Capillary Refill Less than 3 Seconds, No Calf Tenderness - Negative Tony right, Diminished Peripheral Pulses, Edema Skin: Ulcer/ Wound - No purulence, erythema, string, odor, infection. Skin discontinuity at prior ulcer site to the lateral anterior right leg. Granular base that is superficial. There is no bogginess or deep tissue exposure Wound Measurements and Assessment WC - Nurse 1 - General Ulcer Measurement Start: 09/28/19 07:58 Freq: Status: Active Protocol: Activity Type Activity Date Activity User E-Sign Co-Sign Detail Recorded Client Recorded Date Recorded By Document 09/28/19 07:58 DL [id number] 09/28/19 08:03 DL 09/28/19 07:58 Wound Center Nurse 1 [Ulcer Assessment] 4-right leg superior -Current Size (cm) - Length 0.6 -Current Size (cm) - Width 0.9 -Current Size (cm) - Depth 0.1 -Total Square Cm 0.54 -Photo Taken Yes -Exudate Amt Small -Exudate Type Serosanguineous -Wound Margin Distinct, Outline Attached -Granulation Amt Large (67-100%) -Granulation Quality [place] -Necrosis Amt None Present (0 %) -Structure Exposed N/A -Texture (Mandy-wound Skin Appearance) Scarring -Moisture (Mandy-wound Skin Appearance No Abnormality ) -Color (Mandy-wound Skin Appearance) Hemosiderin Staining -Temperature (Mandy-wound Skin No Abnormality Appearance) (Pt Warm) -Tenderness on Palpation (Mandy-wound No Skin Appearance) -Ulcer Cleansing Rinsed/ Irrigated with Saline -Foul Odor after Cleansing No -Anesthetic Used 5% Lidocaine Gel [Edema Assessment] -Right Calf (cm) 43 -Right Ankle (cm) 26.5 WC - Nurse 2 - General Ulcer CM Notes Start: 09/28/19 07:58 Freq: Status: Active Protocol: Activity Type Activity Date Activity User E-Sign Co-Sign Detail Recorded Client Recorded Date Recorded By Document 09/28/19 08:16 PASCUAL [id number] 09/28/19 08:18 PASCUAL 09/28/19 08:16 Wound Center Nurse 2 [Procedure/Treatment] 4-right leg superior -Time 08:17 -Correct Patient Yes -Correct Side, Site, Position Yes -Correct Procedure Yes -Procedure Performed Yes -Type of Procedure Debridement -Clinical Debridement Subcutaneous -Post Debridement Size (cm) - Length 1.4 -Post Debridement Size (cm) - Width 1.3 -Post Debridement Size (cm) - Depth 0.1 -Total Square Cm 1.82 -Wound/Ulcer Outcome Not Healed -Ulcer Cleansing Rinsed/ Irrigated with Saline -Foul Odor after Cleansing No -Bioengineered Tissue No -Bleeding Controlled with Pressure -Offloading No -Treatment Response Procedure Tolerated Well [See Physician Procedure note for Specifics] Pain Scale: 0-10 Numeric [Pain] -Is Patient Pain Free? Yes Musculoskeletal: No Tenderness to Palpation of Joints or Extremities, Muscle Wasting Neurological: Sensory exam intact to light touch and pain Psych/Mental Status: Normal Affect, Appropriate Debridement Note Post-Debridement Measurements/Treatment WC - Nurse 2 - General Ulcer CM Notes Start: 09/28/19 07:58 Freq: Status: Active Protocol: Activity Type Activity Date Activity User E-Sign Co-Sign Detail Recorded Client Recorded Date Recorded By Document 09/28/19 08:16 [id number] 09/28/19 08:18 PASCUAL 09/28/19 08:16 Wound Center Nurse 2 4-right leg superior -Time 08:17 -Correct Patient Yes -Correct Side, Site, Position Yes -Correct Procedure Yes -Procedure Performed Yes -Type of Procedure Debridement -Clinical Debridement Subcutaneous -Post Debridement Size (cm) - Length 1.4 -Post Debridement Size (cm) - Width 1.3 -Post Debridement Size (cm) - Depth 0.1 -Total Square Cm 1.82 -Wound/Ulcer Outcome Not Healed -Ulcer Cleansing Rinsed/ Irrigated with Saline -Foul Odor after Cleansing No -Bioengineered Tissue No -Bleeding Controlled with Pressure -Offloading No -Treatment Response Procedure Tolerated Well Pain Scale: 0-10 Numeric Is Patient Pain Free? Yes Wound debrided: leg lateral anterior Laterality: Right Type of Debridement: Excisional debridement Anesthesia Used: 5% Lidocaine Gel Depth: in the subcutaneous layer Percentage of wound debrided: 100 Instrument Used: #15 blade Tissue Removed: Fibrous, devitalized subcutaneous, biofilm, slough Severity: Fat Layer Exposed Amount of bleeding with debridement: Mild Bleeding Controlled with: Pressure Patient tolerated procedure well Assessment/Plan Active Problems Ulcer of right lower extremity with fat layer exposed (Acute) Leg edema (Chronic) Venous insufficiency (Chronic) Assessment: Returned ulcer right leg. Leg edema bilateral. Venous insufficiency. Chronic and acute deep venous thrombosis. Malnutrition suspected. Diabetes Plan: I reviewed and discussed his case. the wound is return today. Subcutaneous excisional debridement was performed as noted in the clinical panel. To change dressing daily with hydrogel and Adaptic. To continue on a pliant manner with compression stocking. It is noted he has previously seen Dr. Perez for venous insufficiency and was advised to proceed with compression. He will also follow-up within 6 months of his last visit. To avoid laying directly on the ulcer site while sleeping. To resume nutritional supplementation optimize healing. To return to clinic in 1 week or call sooner if there is any questions or concerns.
[2019-10-05 08:14] VITALS: BP 150/82; PULSE 66; RESP 18; TEMP 36.2; BMI 39.6
--- NOTE | 2019-10-05 15:54 | PN.PCM_ITS ---
(1) Ulcer of right lower extremity with fat layer exposed Status: Acute Current Visit: Yes Code(s): L97.912 - Non-pressure chronic ulcer of unspecified part of right lower leg with fat layer exposed (2) Leg edema Status: Chronic Current Visit: Yes Code(s): R60.0 - Localized edema (3) Venous insufficiency Status: Chronic Current Visit: Yes Code(s): I87.2 - Venous insufficiency (chronic) (peripheral) (4) Malnutrition Status: Suspected Current Visit: Yes Code(s): E46 - Unspecified protein- calorie malnutrition Type of Wound Date of Service: 10/05/19 Chief Complaint: Right leg ulcer History of Wound: This 69-year-old male with significant past medical history of diabetes presented to the wound healing center complaining of a nonhealing ulcer. he denies claudication. He denies rest burning, tingling, or numbness. He denies current fever, chill, nausea, vomiting. He obtain his arterial and venous studies. It was noted that he has recent acute blood clot and previous chronic blood clots. He continues on Eliquis anticoagulation plan. This is continued. He did schedule a vascular referral as advised for his venous insufficiency and was advised to proceed with compression garments and a follow-up in [address] Perez provided a compression stocking prescription and did obtain these. He is with his today. He denies illness. Progress of Wound: Stable and improving - Physical Exam Vital Signs Temp Pulse Resp BP 97.1 F L 66 18 150/82 H 10/05/19 08:14 10/05/19 08:14 10/05/19 08:14 10/05/19 08:14 General: Alert, Oriented x3, Cooperative, No apparent distress Extremities: No cyanosis, Capillary Refill Less than 3 Seconds, No Calf Tenderness, Edema, Peripheral Pulses Normal Skin: Ulcer/ Wound - No purulence, erythema, streaking, odor, infection. Ulcer bed is granular Wound Measurements and Assessment WC - Nurse 1 - General Ulcer Measurement Start: 09/28/19 07:58 Freq: Status: Active Protocol: Activity Type Activity Date Activity User E-Sign Co-Sign Detail Recorded Client Recorded Date Recorded By Document 10/05/19 08:14 RB [id number] 10/05/19 08:17 RB 10/05/19 08:14 Wound Center Nurse 1 [Ulcer Assessment] 4-right leg superior -Combined with other wound No -Current Size (cm) - Length 1.3 -Current Size (cm) - Width 1 -Current Size (cm) - Depth 0.2 -Total Square Cm 1.3 -Tunneling No -Undermining/Tunneling No -Circular Undermining No -Exudate Amt Small -Exudate Type Serosanguineous -Wound Margin Flat & Intact -Granulation Amt Medium (34-66%) -Granulation Quality [place] -Slough/Fibrin Yes -Necrosis Amt Small (1-33%) -Necrotic Tissue Type Adherent Slough -Structure Exposed N/A -Texture (Mandy-wound Skin Appearance) Assessed -Moisture (Mandy-wound Skin Appearance Dry/Scaly ) -Color (Mandy-wound Skin Appearance) Assessed -Temperature (Mandy-wound Skin No Abnormality Appearance) (Pt Warm) -Tenderness on Palpation (Mandy-wound No Skin Appearance) -Ulcer Cleansing Wound Cleanser -Foul Odor after Cleansing No -Anesthetic Used 5% Lidocaine Gel [Edema Assessment] -Lower Limb Edema Present Yes -Right Calf (cm) 44.5 -Right Ankle (cm) 27 Musculoskeletal: No Tenderness to Palpation of Joints or Extremities Neurological: Sensory exam intact to light touch and pain Psych/Mental Status: Normal Affect, Appropriate Debridement Note Post-Debridement Measurements/Treatment WC - Nurse 2 - General Ulcer CM Notes Start: 09/28/19 07:58 Freq: Status: Active Protocol: Activity Type Activity Date Activity User E-Sign Co-Sign Detail Recorded Client Recorded Date Recorded By Document 09/28/19 08:16 PASCUAL [id number] 09/28/19 08:18 PASCUAL 09/28/19 08:16 Wound Center Nurse 2 4-right leg superior -Time 08:17 -Correct Patient Yes -Correct Side, Site, Position Yes -Correct Procedure Yes -Procedure Performed Yes -Type of Procedure Debridement -Clinical Debridement Subcutaneous -Post Debridement Size (cm) - Length 1.4 -Post Debridement Size (cm) - Width 1.3 -Post Debridement Size (cm) - Depth 0.1 -Total Square Cm 1.82 -Wound/Ulcer Outcome Not Healed -Ulcer Cleansing Rinsed/ Irrigated with Saline -Foul Odor after Cleansing No -Bioengineered Tissue No -Bleeding Controlled with Pressure -Offloading No -Treatment Response Procedure Tolerated Well Pain Scale: 0-10 Numeric Is Patient Pain Free? Yes Wound debrided: leg Laterality: Right Type of Debridement: Excisional debridement Anesthesia Used: 5% Lidocaine Gel Depth: in the subcutaneous layer Percentage of wound debrided: 100 Instrument Used: #15 blade Tissue Removed: fibrous, devitalized subcutaneous, biofilm, slough Severity: Fat Layer Exposed Amount of bleeding with debridement: Mild Bleeding Controlled with: Pressure Patient tolerated procedure well Assessment/Plan Active Problems Ulcer of right lower extremity with fat layer exposed (Acute) Leg edema (Chronic) Venous insufficiency (Chronic) Assessment: Returned ulcer right leg. Leg edema bilateral. Venous insufficiency. Chronic and acute deep venous thrombosis. Malnutrition suspected. Diabetes Plan: I reviewed and discussed his case. Subcutaneous excisional debridement was performed as noted in the clinical panel. To change dressing daily with hydrogel and Adaptic. To continue on a pliant manner with compression stocking. It is noted he has previously seen Dr. Perez for venous insufficiency and was advised to proceed with compression. He will also follow-up within 6 months of his last visit. To avoid laying directly on the ulcer site while sleeping. To resume nutritional supplementation optimize healing. To return to clinic in 1 week or call sooner if there is any questions or concerns. Additional applications of epi-fix, advanced wound healing product, as advised and prior authorization by the insurance company is pending.
[2019-10-12 08:20] VITALS: BP 126/67; PULSE 64; RESP 18; TEMP 36.2; BMI 39.6
--- NOTE | 2019-10-12 10:38 | PN.PCM_ITS ---
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 he denies claudication. He denies rest burning, tingling, or numbness. He denies current fever, chill, nausea, vomiting. He obtain his arterial and venous studies. It was noted that he has recent acute blood clot and previous chronic blood clots. He continues on Eliquis anticoagulation plan. This is continued. He did schedule a vascular referral as advised for his venous insufficiency and was advised to proceed with compression garments and a follow-up in [address] Perez provided a compression stocking prescription and did obtain these. He is with his today. He denies illness. Progress of Wound: Stable and improving - Physical Exam Vital Signs Temp Pulse Resp BP 97.1 F L 64 18 126/67 H 10/12/19 08:20 10/12/19 08:20 10/12/19 08:20 10/12/19 08:20 General: Alert, Oriented x3, Cooperative, No apparent distress Extremities: No cyanosis, Capillary Refill Less than 3 Seconds, No Calf Tenderness, Diminished Peripheral Pulses, Edema Skin: Ulcer/ Wound - No purulence, erythema, string, odor, infection. The ulcer bed is granular and there are no signs of adjacent infection. No fluctuance no bogginess Wound Measurements and Assessment WC - Nurse 1 - General Ulcer Measurement Start: 09/28/19 07:58 Freq: Status: Active Protocol: Activity Type Activity Date Activity User E-Sign Co-Sign Detail Recorded Client Recorded Date Recorded By Document 10/12/19 08:20 DV [id number] 10/12/19 08:23 DV 10/12/19 08:20 Wound Center Nurse 1 [Ulcer Assessment] 4-right leg superior -Combined with other wound No -Current Size (cm) - Length 1.0 -Current Size (cm) - Width 0.4 -Current Size (cm) - Depth 0.1 -Total Square Cm 0.40 -Photo Taken No -Epithelialization None Present -Tunneling No -Undermining/Tunneling No -Circular Undermining No -Classification - Thickness Full Thickness without Exposed Support Structure -Exudate Type Serous -Wound Margin Indistinct, Non -Visible -Granulation Amt Small (1-33%) -Granulation Quality N/A -Slough/Fibrin Yes -Necrosis Amt Medium (34-66%) -Necrotic Tissue Type Adherent Slough -Structure Exposed None/Limited to Skin Breakdown -Texture (Mandy-wound Skin Appearance) Assessed, Localized Edema ,Scarring -Moisture (Mandy-wound Skin Appearance No Abnormality, ) Assessed -Color (Mandy-wound Skin Appearance) No Abnormality, Assessed -Temperature (Mandy-wound Skin No Abnormality Appearance) (Pt Warm) -Tenderness on Palpation (Mandy-wound No Skin Appearance) -Ulcer Cleansing Rinsed/ Irrigated with Saline -Foul Odor after Cleansing No -Anesthetic Used 4% Lidocaine Solution [Edema Assessment] -Lower Limb Edema Present Yes -Right Calf (cm) 45.5 -Right Ankle (cm) 25.5 WC - Nurse 2 - General Ulcer CM Notes Start: 09/28/19 07:58 Freq: Status: Active Protocol: Activity Type Activity Date Activity User E-Sign Co-Sign Detail Recorded Client Recorded Date Recorded By Document 10/12/19 08:35 [id number] 10/12/19 08:37 10/12/19 08:35 Wound Center Nurse 2 [Procedure/Treatment] 4-right leg superior -Time 08:35 -Correct Patient Yes -Correct Side, Site, Position Yes -Correct Procedure Yes -Procedure Performed Yes -Type of Procedure Debridement -Clinical Debridement Subcutaneous -Post Debridement Size (cm) - Length 0.8 -Post Debridement Size (cm) - Width 0.4 -Post Debridement Size (cm) - Depth 0.1 -Total Square Cm 0.32 -Wound/Ulcer Outcome Not Healed -Ulcer Cleansing Rinsed/ Irrigated with Saline -Foul Odor after Cleansing No -Bioengineered Tissue Yes -Type of bioengineered Tissue EPIFIX -Expiration Date 06/17/24 -Product Lot Number [id number] -Percent Used 100 -Saline Lot Number [id number] -Bleeding Controlled with Pressure -Offloading No -Treatment Response Procedure Tolerated Well [See Physician Procedure note for Specifics] Pain Scale: 0-10 Numeric [Pain] -Is Patient Pain Free? Yes Musculoskeletal: No Tenderness to Palpation of Joints or Extremities, Muscle Wasting Neurological: Sensory exam intact to light touch and pain Psych/Mental Status: Normal Affect, Appropriate Debridement Note Post-Debridement Measurements/Treatment WC - Nurse 2 - General Ulcer CM Notes Start: 09/28/19 07:58 Freq: Status: Active Protocol: Activity Type Activity Date Activity User E-Sign Co-Sign Detail Recorded Client Recorded Date Recorded By Document 09/28/19 08:16 [id number] 09/28/19 08:18 Document 10/12/19 08:35 [id number] 10/12/19 08:37 09/28/19 10/12/19 08:16 08:35 Wound Center Nurse 2 4-right leg superior -Time 08:17 08:35 -Correct Patient Yes Yes -Correct Side, Site, Position Yes Yes -Correct Procedure Yes Yes -Procedure Performed Yes Yes -Type of Procedure Debridement Debridement -Clinical Debridement Subcutaneous Subcutaneous -Post Debridement Size (cm) - Length 1.4 0.8 -Post Debridement Size (cm) - Width 1.3 0.4 -Post Debridement Size (cm) - Depth 0.1 0.1 -Total Square Cm 1.82 0.32 -Wound/Ulcer Outcome Not Healed Not Healed -Ulcer Cleansing Rinsed/ Rinsed/ Irrigated with Irrigated with Saline Saline -Foul Odor after Cleansing No No -Bioengineered Tissue No Yes -Type of bioengineered Tissue EPIFIX -Expiration Date 06/17/24 -Product Lot Number [id number] -Percent Used 100 -Saline Lot Number [id number] -Bleeding Controlled with Pressure Pressure -Offloading No No -Treatment Response Procedure Procedure Tolerated Well Tolerated Well Pain Scale: 0-10 Numeric Is Patient Pain Free? Yes Yes Wound debrided: leg Laterality: Right Type of Debridement: Excisional debridement Anesthesia Used: 5% Lidocaine Gel Depth: in the subcutaneous layer Percentage of wound debrided: 100 Instrument Used: #15 blade Tissue Removed: fibrous, devitalized subcutaneous, biofilm, slough Severity: Fat Layer Exposed Amount of bleeding with debridement: Mild Bleeding Controlled with: Pressure Patient tolerated procedure well Assessment/Plan Active Problems Ulcer of right lower extremity with fat layer exposed (Chronic) Leg edema (Chronic) Venous insufficiency (Chronic) Assessment: Returned ulcer right leg. Leg edema bilateral. Venous insufficiency. Chronic and acute deep venous thrombosis. Malnutrition suspected. Diabetes Plan: I reviewed and discussed his case. Subcutaneous excisional debridement was performed as noted in the clinical panel. I recommend application of advanced wound healing product, epi-fix. Prior authorization was obtained and this was applied after verbal consent. He tolerated this well. 100% of the product was utilized. This was secured with a wound veil and Steri-Strips. A s econdary gauze dressing was applied he was advised to keep this clean and intact until follow-up next week. The indications, benefits, planned applications, and anticipated healing time and management were discussed. I answered his questions. To continue compression stocking. It is noted he has previously seen Dr. Perez for venous insufficiency and was advised to proceed with compression. He will also follow-up within 6 months of his last visit. To avoid laying directly on the ulcer site while sleeping. To resume nutritional supplementation optimize healing. To return to clinic in 1 week or call sooner if there is any questions or concerns.
== END 2019-10-15 23:59 | disposition home or self-care (01) ==
LOC: WC 08:00
PROVIDERS: Family Provider Family Medicine; PCP Family Medicine; Referring Provider Podiatrist; Visit Provider Podiatrist
DX: E11.622 Type 2 diabetes mellitus with other skin ulcer (principal); R60.0 Localized edema; I87.2 Venous insufficiency (chronic) (peripheral); L97.812 Non-pressure chronic ulcer of other part of right lower leg with fat layer exposed; Z79.01 Long term (current) use of anticoagulants; Z86.718 Personal history of other venous thrombosis and embolism
CPT/HCPCS: 11042; 11721; 15271

== ENCOUNTER 2019-11-02 08:00 | Outpatient (RCR) | payer OTHER, SELFPAY ==
[2019-10-16 00:32] VITALS: BP 126/67; PULSE 64; RESP 18; TEMP 36.2
[2019-10-19 08:13] VITALS: BP 124/72; PULSE 67; RESP 18; TEMP 36.2; BMI 39.6
--- NOTE | 2019-10-19 10:08 | PCM.WC.PN ---
(1) Ulcer of right lower extremity with fat layer exposed Status: Resolved Code(s): L97.912 - Non-pressure chronic ulcer of unspecified part of right lower leg with fat layer exposed (2) Venous insufficiency Status: Chronic Code(s): I87.2 - Venous insufficiency (chronic) (peripheral) (3) Pre-ulcerative corn or callous Status: Suspected Code(s): L84 - Corns and callosities Type of Wound Date of Service: 10/19/19 Chief Complaint: Right leg ulcer History of Wound: This 69-year-old male with significant past medical history of diabetes presented to the wound healing center complaining of a nonhealing ulcer. he denies claudication. He denies rest burning, tingling, or numbness. He denies current fever, chill, nausea, vomiting. He obtain his arterial and venous studies. It was noted that he has recent acute blood clot and previous chronic blood clots. He continues on Eliquis anticoagulation plan. This is continued. He did schedule a vascular referral as advised for his venous insufficiency and was advised to proceed with compression garments and a follow-up in [address] Perez provided a compression stocking prescription and did obtain these. He is with his today. He denies illness. He denies redness or drainage. He also reports he has some skin thickening and callus to the bottom of the ball of his right foot he asked for help safely trimming this on his own. He does not feel safe performing this on his own. Progress of Wound: Healed - Physical Exam Vital Signs Temp Pulse Resp BP 97.1 F L 67 18 124/72 H 10/19/19 08:13 10/19/19 08:13 10/19/19 08:13 10/19/19 08:13 General: Alert, Oriented x3, Cooperative, No apparent distress Extremities: No cyanosis, Capillary Refill Less than 3 Seconds, No Calf Tenderness, Diminished Peripheral Pulses, Edema Skin: Ulcer/ Wound - No purulence, erythema, streaking, odor, infection. There is full epithelialization noted the ulcer site and the site is healed. There are no new open lesions. His skin is atrophic and thin, - - Callus sub-central metatarsal head right foot with no open lesion noted upon debridement. Pain relief noted with debridement Wound Measurements and Assessment WC - Nurse 1 - General Ulcer Measurement Start: 10/19/19 08:13 Freq: Status: Active Protocol: Activity Type Activity Date Activity User E-Sign Co-Sign Detail Recorded Client Recorded Date Recorded By Document 10/19/19 08:13 DV [id number] 10/19/19 08:23 DV 10/19/19 08:13 Wound Center Nurse 1 [Ulcer Assessment] 4-right leg superior -Combined with other wound No -Current Size (cm) - Length 0.7 -Current Size (cm) - Width 0.3 -Current Size (cm) - Depth 0.1 -Total Square Cm 0.21 -Photo Taken No -Epithelialization None Present -Tunneling No -Undermining/Tunneling No -Circular Undermining No -Classification - Thickness Full Thickness without Exposed Support Structure -Wound Margin Indistinct, Non -Visible -Granulation Amt None Present (0 %) -Granulation Quality N/A -Slough/Fibrin No -Necrosis Amt None Present (0 %) -Necrotic Tissue Type Adherent Slough -Structure Exposed None/Limited to Skin Breakdown -Texture (Mandy-wound Skin Appearance) Assessed, Scarring -Moisture (Mandy-wound Skin Appearance Assessed,Dry/ ) Scaly -Color (Mandy-wound Skin Appearance) No Abnormality, Assessed -Temperature (Mandy-wound Skin No Abnormality Appearance) (Pt Warm) -Anesthetic Used 4% Lidocaine Solution [Edema Assessment] -Lower Limb Edema Present No WC - Nurse 2 - General Ulcer CM Notes Start: 10/19/19 08:13 Freq: Status: Active Protocol: Activity Type Activity Date Activity User E-Sign Co-Sign Detail Recorded Client Recorded Date Recorded By Document 10/19/19 08:37 JF [id number] 10/19/19 08:38 PASCUAL 10/19/19 08:37 Wound Center Nurse 2 [Procedure/Treatment] 4-right leg superior -Correct Patient No -Correct Side, Site, Position No -Correct Procedure No -Procedure Performed No -Post Debridement Size (cm) - Length 0 -Post Debridement Size (cm) - Width 0 -Post Debridement Size (cm) - Depth 0 -Total Square Cm 0 -Wound/Ulcer Outcome Healed- Epithelialized [See Physician Procedure note for Specifics] Pain Scale: 0-10 Numeric [Pain] -Is Patient Pain Free? Yes Musculoskeletal: No Tenderness to Palpation of Joints or Extremities, Muscle Wasting Neurological: Sensory exam intact to light touch and pain Psych/Mental Status: Normal Affect, Appropriate Debridement Note Post-Debridement Measurements/Treatment WC - Nurse 2 - General Ulcer CM Notes Start: 10/19/19 08:13 Freq: Status: Active Protocol: Activity Type Activity Date Activity User E-Sign Co-Sign Detail Recorded Client Recorded Date Recorded By Document 10/19/19 08:37 JF [id number] 10/19/19 08:38 JF 10/19/19 08:37 Wound Center Nurse 2 4-right leg superior -Correct Patient No -Correct Side, Site, Position No -Correct Procedure No -Procedure Performed No -Post Debridement Size (cm) - Length 0 -Post Debridement Size (cm) - Width 0 -Post Debridement Size (cm) - Depth 0 -Total Square Cm 0 -Wound/Ulcer Outcome Healed- Epithelialized Pain Scale: 0-10 Numeric Is Patient Pain Free? Yes No debridement was completed today - healed Assessment/Plan Assessment: Healed ulcer right leg. Leg edema bilateral. Venous insufficiency. Chronic and acute deep venous thrombosis. Malnutrition suspected. Diabetes Plan: I reviewed and discussed his case. No debridement is required today because the ulcer site has healed. I recommend he discontinue dressings. He was advised to be very careful with this friable site and to monitor for reopening or recurrence of infection in which neither is noted today. To keep skin integrity intact by light moisturizing. To continue compression stocking. It is noted he has previously seen Dr. Perez for venous insufficiency and was advised to proceed with compression. He will also follow-up within 6 months of his last visit. To avoid laying directly on the ulcer site while sleeping. To resume nutritional supplementation optimize healing. I also debrided his callus to his foot on the right lower extremity that he does not feel safe trimming on his own. He was reassured there is no ulcer noted at this site. To moisturize and file between visits at home if needed. To return to the wound healing center in 2 weeks to have a healed wound check or sooner if he has any questions or concerns.
[2019-11-02 08:10] VITALS: BP 140/69; PULSE 70; RESP 18; TEMP 36.2; BMI 39.6
--- NOTE | 2019-11-02 10:45 | PCM.WC.PN ---
(1) Ulcer of right lower extremity with fat layer exposed Status: Resolved Current Visit: Yes Code(s): L97.912 - Non-pressure chronic ulcer of unspecified part of right lower leg with fat layer exposed (2) Venous insufficiency Status: Chronic Current Visit: Yes Code(s): I87.2 - Venous insufficiency (chronic) (peripheral) Type of Wound Date of Service: 11/02/19 Chief Complaint: Right leg ulcer History of Wound: This 69-year-old male with significant past medical history of diabetes presented to the wound healing center complaining of a nonhealing ulcer. he denies claudication. He denies rest burning, tingling, or numbness. He denies current fever, chill, nausea, vomiting. He obtain his arterial and venous studies. It was noted that he has recent acute blood clot and previous chronic blood clots. He continues on Eliquis anticoagulation plan. This is continued. He did schedule a vascular referral as advised for his venous insufficiency and was advised to proceed with compression garments and a follow-up in [address] Perez provided a compression stocking prescription and did obtain these. He is with his today. He denies illness. He denies redness or drainage. He relates this remains healed. He has recommendations on lotion. He has been applying Jessica lotion it is not adequate. Progress of Wound: Healed - Physical Exam Vital Signs Temp Pulse Resp BP 97.2 F L 70 18 140/69 H 11/02/19 08:10 11/02/19 08:10 11/02/19 08:10 11/02/19 08:10 General: Alert, Oriented x3, Cooperative, No apparent distress Extremities: No cyanosis, Capillary Refill Less than 3 Seconds, No Calf Tenderness, Diminished Peripheral Pulses, Edema Skin: Ulcer/ Wound - Full epithelialization noted to prior ulcer site. There are no signs of infection, necrosis, or blisters. His skin is dry to the leg however there is no compromise epithelial layer. Wound Measurements and Assessment WC - Nurse 1 - General Ulcer Measurement Start: 10/19/19 08:13 Freq: Status: Active Protocol: Activity Type Activity Date Activity User E-Sign Co-Sign Detail Recorded Client Recorded Date Recorded By Document 11/02/19 08:10 RB [id number] 11/02/19 08:11 RB 11/02/19 08:10 Wound Center Nurse 1 [Edema Assessment] -Lower Limb Edema Present Yes -Right Calf (cm) 45.5 -Right Ankle (cm) 27.5 - Nurse 2 - General Ulcer CM Notes Start: 10/19/19 08:13 Freq: Status: Active Protocol: Activity Type Activity Date Activity User E-Sign Co-Sign Detail Recorded Client Recorded Date Recorded By Document 11/02/19 08:24 [id number] 11/02/19 08:24 11/02/19 08:24 Pain Scale: 0-10 Numeric [Pain] -Is Patient Pain Free? Yes Musculoskeletal: No Tenderness to Palpation of Joints or Extremities Neurological: Sensory exam intact to light touch and pain Psych/Mental Status: Normal Affect, Appropriate Debridement Note Post-Debridement Measurements/Treatment - Nurse 2 - General Ulcer CM Notes Start: 10/19/19 08:13 Freq: Status: Active Protocol: Activity Type Activity Date Activity User E-Sign Co-Sign Detail Recorded Client Recorded Date Recorded By Document 10/19/19 08:37 [id number] 10/19/19 08:38 Document 11/02/19 08:24 [id number] 11/02/19 08:24 10/19/19 11/02/19 08:37 08:24 Wound Center Nurse 2 4-right leg superior -Correct Patient No -Correct Side, Site, Position No -Correct Procedure No -Procedure Performed No -Post Debridement Size (cm) - Length 0 -Post Debridement Size (cm) - Width 0 -Post Debridement Size (cm) - Depth 0 -Total Square Cm 0 -Wound/Ulcer Outcome Healed- Epithelialized Pain Scale: 0-10 Numeric Is Patient Pain Free? Yes Yes No debridement was completed today - Remains healed today Assessment/Plan Active Problems Venous insufficiency (Chronic) Pre-ulcerative corn or callous (Chronic) Assessment: Healed ulcer right leg. Leg edema bilateral. Venous insufficiency. Chronic and acute deep venous thrombosis. Malnutrition suspected. Diabetes Plan: I reviewed and discussed his case. No debridement is required today because the ulcer site has healed. I recommend he discontinue dressings. He was advised to be very careful with this friable site and to monitor for reopening or recurrence of infection in which neither is noted today. To keep skin integrity intact by light moisturizing. To continue compression stocking. It is noted he has previously seen Dr. Perez for venous insufficiency and was advised to proceed with compression. He will also follow-up within 6 months of his last visit. To avoid laying directly on the ulcer site while sleeping. It is okay to discontinue nutritional supplementation. To moisturize lower extremity skin daily with Lac-Hydrin; a prescription was provided. He is discharged from the wound healing at this center at this time. To follow-up with the foot and ankle center or wound center in the future if needed. I answered his questions.
== END 2019-11-15 23:59 ==
LOC: WC 08:00
PROVIDERS: Family Provider Family Medicine; PCP Family Medicine; Referring Provider Podiatrist; Visit Provider Podiatrist
DX: Z09 Encounter for follow-up examination after completed treatment for conditions other than malignant neoplasm (principal); I87.2 Venous insufficiency (chronic) (peripheral); L84 Corns and callosities; R60.0 Localized edema; E11.9 Type 2 diabetes mellitus without complications; Z79.01 Long term (current) use of anticoagulants; Z79.84 Long term (current) use of oral hypoglycemic drugs; Z79.899 Other long term (current) drug therapy; Z86.718 Personal history of other venous thrombosis and embolism
CPT/HCPCS: 99212; 99213; G0463

== ENCOUNTER → 2020-02-06 08:13 | Outpatient (CLI) | payer OTHER, SELFPAY ==
[2020-02-06 09:47] LABS: Absolute Neutrophil Count 6.6 X10^3/uL (2.0-7.7); Basophil# 0.03 X10^3/uL; Basophil% 0.3 % (0-1); Eosinophil# 0.12 X10^3/uL; Eosinophils% 1.4 % (0-5); Hematocrit 45.4 % (40-54); Hemoglobin 14.8 g/dL (13.0-16.5); Lymphocyte % 14.8 % (19-41); Mean Corp Hgb Conc 32.6 g/dL (32-36); Mean Corpuscular Volume 98.1 fL (80-94); Monocyte# 0.62 X10^3/uL; Monocyte% 7.1 % (0-10); NRBC Flagged by Analyzer 0 % (0-5); Neutrophil # 6.62 X10^3/uL (2.7-7.7); Neutrophil % 75.3 % (47-70); Platelet Count 278 K/mm3 (150-450); RBC Distribution Width CV 14.2 % (11.6-14.6); Red Blood Count 4.63 M/mm3 (4.6-6.2); White Blood Count 8.8 K/mm3 (4.4-11.0)
[2020-02-06 10:15] LABS: ALB/GLOB Ratio 0.9 RATIO (0.9-2.4); AST(SGOT) 21 U/L (15-37); Alanine Aminotransfer ALT/SGPT 36 U/L (16-61); Albumin, Serum 3.4 g/dL (3.2-5.0); Alkaline Phosphatase 49 U/L (45-117); Anion Gap 9 (5-15); BUN 34 mg/dL (7-18); BUN/Creat Ratio 18.5 RATIO (10-20); Chloride 105 mmol/L (98-107); Creatinine, Serum 1.84 mg/dL (0.70-1.30); EST Glomerular Filtration Rate 39 mL/min (>60); Est Glom Filt Rate - Afr Amer 47 mL/min (>60); Globulin 3.8 g/dL (2.2-4.2); Glucose 164 mg/dL (74-106); Potassium 3.9 mmol/L (3.5-5.1); Protein, Total 7.2 g/dL (6.4-8.2); Sodium Level 139 mmol/L (136-145)
[2020-02-06 13:43] LABS: Hepatitis B Surface Antibody Non-Reactive; Vitamin D,25 Hydroxy 25.6 ng/mL
[2020-02-07 16:02] LABS: Hepatitis A AB, Total Negative (Negative)
== END ==
PROVIDERS: PCP Family Medicine; Visit Provider Family Medicine
DX: E11.29 Type 2 diabetes mellitus with other diabetic kidney complication (principal)
CPT/HCPCS: 36415; 80053; 82306; 85025; 86706; 86708

== ENCOUNTER → 2020-05-03 08:40 | Outpatient (CLI) | payer MEDICARE, SELFPAY ==
[2020-05-03 10:08] LABS: Hematocrit 48.6 % (40-54); Hemoglobin 15.6 g/dL (13.0-16.5); Mean Corp Hgb Conc 32.1 g/dL (32-36); Mean Corpuscular Hgb 30.8 pg (27.0-32.0); Mean Platelet Vol. 10.1 fl (6.2-12.0); Platelet Count 299 K/mm3 (150-450); RBC Distribution Width CV 13.5 % (11.6-14.6); RBC Distribution Width SD 47.8 fl (35.1-43.9); Red Blood Count 5.06 M/mm3 (4.6-6.2)
[2020-05-03 10:16] LABS: Prothrombin Time (Protime)PT. 39.2 SECONDS (11.7-14.9)
[2020-05-03 10:22] LABS: Vitamin D,25 Hydroxy 30.8 ng/mL
[2020-05-03 10:25] LABS: Hemoglobin A1c 8.7 % (3.8-5.6)
[2020-05-03 10:47] LABS: ALB/GLOB Ratio 0.8 RATIO (0.9-2.4); AST(SGOT) 24 U/L (15-37); Alanine Aminotransfer ALT/SGPT 39 U/L (16-61); Albumin, Serum 3.4 g/dL (3.2-5.0); Alkaline Phosphatase 58 U/L (45-117); Anion Gap 7 (5-15); BUN 30 mg/dL (7-18); BUN/Creat Ratio 16.4 RATIO (10-20); Calcium,Total 8.9 mg/dL (8.5-10.1); Chloride 103 mmol/L (98-107); Creatinine, Serum 1.83 mg/dL (0.70-1.30); EST Glomerular Filtration Rate 39 mL/min (>60); Est Glom Filt Rate - Afr Amer 48 mL/min (>60); Globulin 4.1 g/dL (2.2-4.2); Glucose 202 mg/dL (74-106); Potassium 4.4 mmol/L (3.5-5.1); Protein, Total 7.5 g/dL (6.4-8.2); Sodium Level 136 mmol/L (136-145); Thyroid Stim Hormone (TSH) 2.94 uIU/mL (0.358-3.74)
== END ==
PROVIDERS: PCP Family Medicine; Referring Provider Family Medicine; Visit Provider Family Medicine
DX: R79.1 Abnormal coagulation profile (principal); E11.29 Type 2 diabetes mellitus with other diabetic kidney complication; E55.9 Vitamin D deficiency, unspecified
CPT/HCPCS: 36415; 80053; 82306; 83036; 84443; 85027; 85610

== ENCOUNTER → 2020-09-26 09:15 | Outpatient (CLI) | payer MEDICARE, SELFPAY ==
[2020-09-26 11:04] LABS: ALB/GLOB Ratio 0.9 RATIO (0.9-2.4); AST(SGOT) 24 U/L (15-37); Alanine Aminotransfer ALT/SGPT 42 U/L (16-61); Albumin, Serum 3.4 g/dL (3.2-5.0); Alkaline Phosphatase 53 U/L (45-117); Anion Gap 8 (5-15); BUN 42 mg/dL (7-18); BUN/Creat Ratio 21.9 RATIO (10-20); Calcium,Total 9.5 mg/dL (8.5-10.1); Chloride 103 mmol/L (98-107); Cholesterol 317 mg/dL (200); Creatinine, Serum 1.92 mg/dL (0.70-1.30); EST Glomerular Filtration Rate 37 mL/min (>60); Est Glom Filt Rate - Afr Amer 45 mL/min (>60); Globulin 3.8 g/dL (2.2-4.2); Glucose 250 mg/dL (74-106); High Density Lipoprotein 36 mg/dL; Protein, Total 7.2 g/dL (6.4-8.2); Sodium Level 134 mmol/L (136-145); Thyroid Stim Hormone (TSH) 2.93 uIU/mL (0.358-3.74); Triglycerides 414 mg/dL
== END ==
PROVIDERS: PCP Family Medicine; Referring Provider Family Medicine; Visit Provider Family Medicine
DX: E11.29 Type 2 diabetes mellitus with other diabetic kidney complication (principal)
CPT/HCPCS: 36415; 80053; 80061; 84443

== ENCOUNTER → 2020-11-14 08:12 | Outpatient (CLI) | payer MEDICARE, OTHER, SELFPAY ==
[2020-11-14 10:40] LABS: Hemoglobin A1c 8.6 % (3.8-5.6)
[2020-11-14 10:50] LABS: ALB/GLOB Ratio 0.9 RATIO (0.9-2.4); AST(SGOT) 29 U/L (15-37); Alanine Aminotransfer ALT/SGPT 43 U/L (16-61); Albumin, Serum 3.3 g/dL (3.2-5.0); Alkaline Phosphatase 56 U/L (45-117); Anion Gap 9 (5-15); BUN 26 mg/dL (7-18); Calcium,Total 9.3 mg/dL (8.5-10.1); Chloride 103 mmol/L (98-107); Cholesterol 314 mg/dL (200); Creatinine, Serum 1.62 mg/dL (0.70-1.30); EST Glomerular Filtration Rate 45 mL/min (>60); Est Glom Filt Rate - Afr Amer 55 mL/min (>60); Globulin 3.6 g/dL (2.2-4.2); Glucose 178 mg/dL (74-106); High Density Lipoprotein 36 mg/dL; Potassium 3.8 mmol/L (3.5-5.1); Protein, Total 6.9 g/dL (6.4-8.2); Sodium Level 138 mmol/L (136-145); Triglycerides 409 mg/dL
[2020-11-16 08:08] LABS: LDL, Direct 120295 214 mg/dL (0-99)
== END ==
PROVIDERS: PCP Family Medicine; Referring Provider Family Medicine; Visit Provider Family Medicine
DX: E11.29 Type 2 diabetes mellitus with other diabetic kidney complication (principal)
CPT/HCPCS: 36415; 80053; 80061; 83036; 83721

== ENCOUNTER → 2021-02-19 08:37 | Outpatient (CLI) | payer MEDICARE, OTHER, SELFPAY ==
--- NOTE | 2021-02-19 08:40 | RAD_ITS ---
STUDY: X-RAY - CERVICAL SPINE REASON FOR EXAM: Male, 70 years old. NECK PAIN TECHNIQUE: 5 view(s) of the cervical spine were obtained including oblique views. COMPARISON: None FINDINGS: Normal anterior atlantoaxial articulation. Normal odontoid process. There is reversal of the normal cervical lordosis. There is multi-level endplate spondylosis. There is multi-level degenerative disc disease with multilevel disc space narrowing. Normal visualized intervertebral neuroforamina. The soft tissue structures are unremarkable. RAD/Cerv Spine 4 or 5 Views IMPRESSION: There is reversal of the normal cervical lordosis. Multilevel spondylosis and disc space narrowing. Electronically Signed: Delfin Baker MD at 12:59 EDT , Service support ,
== END ==
PROVIDERS: PCP Family Medicine; Referring Provider Family Medicine; Visit Provider Family Medicine
DX: M54.2 Cervicalgia (principal)
CPT/HCPCS: 72050

== ENCOUNTER → 2021-05-06 08:41 | Outpatient (CLI) | payer MEDICARE, OTHER, SELFPAY | PROVIDERS: PCP Family Medicine; Referring Provider Family Medicine; Visit Provider Family Medicine | DX: R05 Cough (principal) | CPT/HCPCS: 87633; 87635; U0003 ==

== ENCOUNTER 2021-05-08 10:19 | Inpatient (IN) | payer MEDICARE, OTHER, SELFPAY ==
[2021-05-08] VITALS (23 sets, daily range): BP systolic 83–141; BP diastolic 55–86; PULSE 62–72; RESP 16–35; TEMP 36–36.9; O2SAT 77–93; BMI 38.5; BMI 38.7
--- NOTE | 2021-05-08 10:23 | EKG12_ITS ---
Test Reason : SOB Blood Pressure : / mmHG Vent. Rate : 064 BPM Atrial Rate : 064 BPM P-R Int : 154 ms QRS Dur : 080 ms QT Int : 434 ms P-R-T Axes : 038 -08 012 degrees QTc Int : 447 ms Normal sinus rhythm Septal infarct , age undetermined Abnormal ECG Confirmed by TESSIE PIERSON, CARINE ([id number]), assistant editor BHARATH CLARK ([id number]) on 05/09/2021 1:48:16 PM Referred By: ARLET Confirmed By:CARINE KURTZ MD
--- NOTE | 2021-05-08 10:33 | EDS_ITS ---
HPI History of Present Illness Chief Complaint: Shortness of Breath Informant: patient and EMS Narrative Narrative: 70-year-old male presents to the emergency room with dyspnea. Patient states that he got sick about 1 week ago had cough and some shortness of breath. He notes that it is significantly worse today. drove him to the fire house where he was noted to be in the 70s on room air. He does not wear oxygen at home. Denies any leg swelling. No significant chest pain. He notes no fevers. He received a Covid test on Thursday which she states was negative. At that time he was also started on Decadron. [facility] Medical History (Updated 05/08/21 @ 11:[address] Jasen Gonzalez, DO) Diabetes DVT (deep venous thrombosis) Home Medications acarbose [Precose] 50 - 100 mg PO TIDCM 11/12/16 [History Last Taken 05/20/19] atenolol 50 mg PO BID 11/12/16 [History Last Taken 05/20/19] coenzyme Q10 [Co Q-10] 100 mg PO DAILY 11/12/16 [History Last Taken 05/20/19] dulaglutide [Trulicity] 0.5 ml SQ WE 11/12/16 [History Last Taken 05/18/19] hydralazine 25 mg PO DAILY 11/12/16 [History Last Taken 05/20/19] losartan 100 mg PO QHS 11/12/16 [History Last Taken 05/19/19] magnesium oxide 400 mg PO DAILY 11/12/16 [History Last Taken 05/20/19] cinnamon bark 500 mg PO BID 05/20/19 [History Last Taken 05/20/19] furosemide 20 mg PO DAILY 05/20/19 [History Last Taken 05/20/19] glimepiride 4 mg PO BID 05/20/19 [History Last Taken 05/20/19] red yeast rice 600 mg PO BID 05/20/19 [History Last Taken 05/20/19] selenium 200 mcg PO DAILY 05/20/19 [History Last Taken 05/20/19] spironolactone 50 mg PO DAILY 05/20/19 [History Last Taken 05/20/19] warfarin 7 mg PO DAILY 05/20/19 [History Last Taken 05/19/19] ascorbic acid (vitamin C) [Vitamin C] 1 g PO DAILY 05/08/21 [History Last Taken Unknown] cholecalciferol (vitamin D3) [Vitamin D3] 50 mcg PO DAILY 05/08/21 [History Last Taken Unknown] dexamethasone 6 mg PO DAILY 05/08/21 [History Last Taken Unknown] empagliflozin [Jardiance] 25 mg PO DAILY 05/08/21 [History Last Taken Unknown] hydralazine 50 mg PO QHS 05/08/21 [History Last Taken Unknown] icosapent ethyl [Vascepa] 2 g PO BID 05/08/21 [History Last Taken Unknown] multivitamin 1 tab PO DAILY 05/08/21 [History Last Taken Unknown] pioglitazone 15 - 30 mg PO DAILY 05/08/21 [History Last Taken Unknown] psyllium husk 3 g PO BID 05/08/21 [History Last Taken Unknown] vitamin K2 100 mcg PO DAILY 05/08/21 [History Last Taken Unknown] zinc 50 mg PO DAILY 05/08/21 [History Last Taken Unknown] Allergy/AdvReac Type Severity Reaction Status Date / Time No Known Allergies Allergy Verified 05/08/21 10:21 Surgical History (Updated 05/08/21 @ 10:33 by Norma Sanford) History of back surgery Social History (Updated 05/08/21 @ 10:[address] Jasen Gonzalez, ) Smoking Status: Never smoker substance use type: does not use ROS ROS ED Constitutional Constitutional ED: Denies chills or weight loss Eyes Eyes: Denies change in vision or diplopia ENT ENT ED: Denies ear pain, rhinorrhea or sore throat Cardiovascular Cardiovascular: Denies chest pain, orthopnea, palpitations or racing heartbeat Respiratory/Chest Respiratory/Chest: Reports cough, dyspnea and dyspnea on exertion; Denies orthopnea Gastrointestinal Gastrointestinal: Denies abdominal pain, diarrhea, nausea or vomiting Genitourinary Genitourinary ED: Denies dysuria, hematuria or urinary frequency Musculoskeletal Musculoskeletal: Denies arthralgias or myalgias Integumentary Denies abscess or rash Neurologic Neurologic: Denies headache(s) or weakness Psychiatric Psychiatric: Denies anxiety, depression, suicidal ideation or suicidal thoughts Endocrine Endocrinology: Denies polydipsia, polyphagia or polyuria Allergic/Immunologic Allergic/Immunologic ED: Denies mouth swelling, tongue swelling or urticaria EXAM Physical Exam Const Vital Signs: 05/08/21 10:21 05/08/21 10:26 05/08/21 10:31 Temperature 96.8 F L 96.8 F L Temperature Source Temporal Temporal Pulse Rate 66 65 64 Respiratory Rate 35 H 28 H 25 H Respiratory Effort Short of Breath Respiratory Pattern Tachypnea Blood Pressure 136/70 H 115/63 Blood Pressure Mean 92 80 Pulse Ox 77 88 88 Oxygen Delivery Method Room Air Nasal Cannula Nasal Cannula Oxygen Flow Rate (L/min) 6 11 05/08/21 11:20 Temperature Temperature Source Pulse Rate 64 Respiratory Rate 30 H Respiratory Effort Respiratory Pattern Blood Pressure 124/63 H Blood Pressure Mean 83 Pulse Ox 91 Oxygen Delivery Method Nasal Cannula Oxygen Flow Rate (L/min) 12 Positive well nourished, well developed and obese General Appearance ED: well developed Nutritional Appearance: obese HEENT Reports normocephalic, head/scalp atraumatic and moist mucous membranes Eyes PERRL and EOMs intact bilaterally Neck no lymphadenopathy, supple and no JVD Resp clear to auscultation bilaterally Resp Narrative: Patient is tachypneic Cardio regular rate, regular rhythm and no murmurs GI normal to inspection, nondistended, normoactive bowel sounds and non-tender Palpation: soft Back/Spine no CVA tenderness and normal ROM Extremity normal to inspection General Extremety ED: Negative for edema General Extremity: Negative for edema Neuro oriented x3 and CN's II-XII intact bilaterally Sensorium / Orientation: alert Motor Exam: strength 5/5 throughout Psych mental status grossly normal Mood & Affect: Negative for depressed or tearful Skin no rashes or lesions noted and no wounds MDM MDM MDM Narrative Medical decision making narrative: Patient is currently requiring 12 L of high flow nasal cannula to maintain sats at 90-91%. White count is 17.3 most likely due to the Decadron use. D-dimer is elevated 0.76 unfortunately his creatinine is also elevated now at 2.38 with a BUN of 66. Therefore I cannot do a CTA based on his GFR. Fortunately he is on Coumadin. His level supratherapeutic today at 6.5. This should make pulmonary embolism very unlikely. His troponin is also elevated at 3048. I suspect that this is type II due to the degree of hypoxemia. Similarly his lactic acid is 2.5 which is most likely due to the hypoxemia. My interpretation of the chest x-ray is bilateral infiltrates Patient is Covid positive requiring significant mount of oxygen. Plan will be for admission. Lab Data Attestation: I reviewed the patient's lab results. Labs: Laboratory Results - last 24 hr 05/08/21 05/08/21 05/08/21 10:33 10:33 10:33 WBC 17.3 H RBC 5.42 Hgb 16.7 H Hct 51.2 MCV 94.5 H MCH 30.8 MCHC 32.6 RDW Std Deviation 51.3 H RDW Coeff of Geovanna 14.6 Plt Count 311 MPV 10.0 Immature Gran % (Auto) 4.900 H Neut % (Auto) 88.0 H Lymph % (Auto) 3.4 L Emmet % (Auto) 3.3 Eos % (Auto) 0.0 Baso % (Auto) 0.4 Absolute Neuts (auto) 15.2 H Absolute Lymphs (auto) 0.59 L Nucleated RBC % 0 PT INR APTT D-Dimer Quant (PE/DVT) 0.76 H* Sodium 133 L Potassium 5.2 H Chloride 100 Carbon Dioxide 16.0 L Anion Gap 17 H BUN 66 H Creatinine 2.38 H Estim Creat Clear Calc 33.57 Est GFR (MDRD) Af Amer 35 L Est GFR (MDRD) Non-Af 29 L BUN/Creatinine Ratio 27.7 H Glucose 361 H Lactic Acid Calcium 9.1 Total Bilirubin 0.80 AST 94 H ALT 71 H Alkaline Phosphatase 55 Troponin I High Sens 3048 H* Total Protein 7.9 Albumin 2.7 L Globulin 5.2 H Albumin/Globulin Ratio 0.5 L 05/08/21 05/08/21 10:33 10:33 WBC RBC Hgb Hct MCV MCH MCHC RDW Std Deviation RDW Coeff of Geovanna Plt Count MPV Immature Gran % (Auto) Neut % (Auto) Lymph % (Auto) Emmet % (Auto) Eos % (Auto) Baso % (Auto) Absolute Neuts (auto) Absolute Lymphs (auto) Nucleated RBC % PT 56.3 H INR 6.5 H* APTT 57.5 H D-Dimer Quant (PE/DVT) Sodium Potassium Chloride Carbon Dioxide Anion Gap BUN Creatinine Estim Creat Clear Calc Est GFR (MDRD) Af Amer Est GFR (MDRD) Non-Af BUN/Creatinine Ratio Glucose Lactic Acid 2.5 H* Calcium Total Bilirubin AST ALT Alkaline Phosphatase Troponin I High Sens Total Protein Albumin Globulin Albumin/Globulin Ratio Radiography Diagnostic Testing: Radiology Impression Chest X-Ray 05/08/21 10:45 IMPRESSION: Patchy bilateral alveolar infiltrates worse in the right hemithorax suggestive of bilateral pneumonias. Electronically Signed: Delfin Baker MD at 11:12 EDT , Service support , EKG Initial EKG: Attestation: I personally reviewed and interpreted this EKG as follows: Comments: Sinus rhythm with a ventricular rate of 64 bpm. No concerning features of ACS or ectopy noted. No significant change from prior EKG dated 30 September 2012 Critical Care Time Critical Care Time: Yes Critical care time (excluding procedures): 30-74 minutes (35 min), Including time spent:, Discussing w/Patient &/or Family/Podiatrist Assistant, Discussing w/Consultants, Arranging Admission or Transfer and Performing Direct Patient Care at Bedside Discharge Plan Dx/Rx/DC Orders Clinical Impression: COVID-19, Acute hypoxemic respiratory failure, Non-ST elevation IL (NSTEMI), PROSPER (acute kidney injury), Supratherapeutic INR Disposition Disposition: Acute Care [facility]
--- NOTE | 2021-05-08 10:45 | RAD_ITS ---
STUDY: X-RAY CHEST REASON FOR EXAM: Male, 70 years old. Cough and shortness of breath. Hypoxia. TECHNIQUE: Single AP portable view of the chest. COMPARISON: None. FINDINGS: EKG electrodes are seen. There is evidence of patchy alveolar infiltrates in both lungs worse in the right hemithorax. This is in keeping with bilateral pneumonias. There is no demonstrated pleural abnormality. Normal size heart. Normal mediastinum and aleah. Normal visualized pulmonary arteries. Normal visualized aortic arch and descending thoracic aorta. There are diffuse degenerative changes of the visualized thoracic spine. Normal visualized ribs, clavicles, and shoulders. There is no demonstrated abnormality of the visualized soft tissue structures of the upper abdomen. RAD/Chest 1 View (Portable) IMPRESSION: Patchy bilateral alveolar infiltrates worse in the right hemithorax suggestive of bilateral pneumonias. Electronically Signed: Delfin Baker MD at 11:12 EDT , Service support ,
[2021-05-08 10:46] LABS: Absolute Lymphocyte Count 0.59 X10^3/uL (0.83-4.51); Absolute Neutrophil Count 15.2 X10^3/uL (2.0-7.7); Basophil# 0.07 X10^3/uL; Basophil% 0.4 % (0-1); Differential Indicated SCAN CRITERIA MET; Hematocrit 51.2 % (40-54); Hemoglobin 16.7 g/dL (13.0-16.5); Lymphocyte # 0.59 X10^3/ul (0.83-4.51); Lymphocyte % 3.4 % (19-41); Mean Corp Hgb Conc 32.6 g/dL (32-36); Mean Corpuscular Hgb 30.8 pg (27.0-32.0); Mean Corpuscular Volume 94.5 fL (80-94); Monocyte# 0.57 X10^3/uL; Monocyte% 3.3 % (0-10); NRBC Flagged by Analyzer 0 % (0-5); Neutrophil # 15.24 X10^3/uL (2.7-7.7); POSITIVE DIFFERENTIAL YES; Platelet Count 311 K/mm3 (150-450); RBC Distribution Width CV 14.6 % (11.6-14.6); RBC Distribution Width SD 51.3 fl (35.1-43.9); Red Blood Count 5.42 M/mm3 (4.6-6.2); White Blood Count 17.3 K/mm3 (4.4-11.0)
[2021-05-08 10:59] LABS: D-Dimer Quantitative (DVT/PE) 0.76 FEU/ug/m (0.27-0.49)
[2021-05-08 11:07] LABS: ALB/GLOB Ratio 0.5 RATIO (0.9-2.4); AST(SGOT) 94 U/L (15-37); Alanine Aminotransfer ALT/SGPT 71 U/L (16-61); Albumin, Serum 2.7 g/dL (3.2-5.0); Alkaline Phosphatase 55 U/L (45-117); Anion Gap 17 (5-15); BUN 66 mg/dL (7-18); BUN/Creat Ratio 27.7 RATIO (10-20); Calcium,Total 9.1 mg/dL (8.5-10.1); Chloride 100 mmol/L (98-107); Creatinine, Serum 2.38 mg/dL (0.70-1.30); EST Glomerular Filtration Rate 29 mL/min (>60); Est Glom Filt Rate - Afr Amer 35 mL/min (>60); Estimated Creatinine Clearance 33.57 ml/min; Globulin 5.2 g/dL (2.2-4.2); Glucose 361 mg/dL (74-106); Potassium 5.2 mmol/L (3.5-5.1); Protein, Total 7.9 g/dL (6.4-8.2); Sodium Level 133 mmol/L (136-145); Troponin-I HS 3048 pg/mL (3.0-78.0)
[2021-05-08 11:18] LABS: Lactic Acid 2.5 mmol/L (0.4-1.9)
[2021-05-08] MEDS: Aspirin 325 MG Tablet PO (11:20)
--- NOTE | 2021-05-08 11:32 | NURSING ---
ICU [facility] 19
--- NOTE | 2021-05-08 11:38 | PCM.HP.STD ---
[facility] - General General Date of Admission: 05/08/21 Date of Service: 05/08/21 Chief Complaint: Shortness of breath HPI Narrative BRENDON DAVID, is a 70 M who presents with shortness of breath. Patient has past medical history which is significant for diabetes mellitus type 2, previous history of DVT on systemic anticoagulation with Coumadin who presented with shortness of breath. Patient symptoms started about 5 days prior to his admission mainly with upper respiratory symptoms. Not been tested for Covid 2 days prior to his admission which came back negative. He woke up on the morning of his presentation with significant shortness of breath. He also had cough. He presented back to the emergency department. Patient was found to be significantly hypoxic with oxygen saturation in the 70s. Chest x-ray obtained demonstrated Patchy bilateral alveolar infiltrates worse in the right hemithorax suggestive of bilateral pneumonias. He was subsequently admitted to the intensive care unit for further management [facility] Medical History Diabetes DVT (deep venous thrombosis) Home Medications acarbose [Precose] 50 - 100 mg PO TIDCM 11/12/16 [History Last Taken 05/20/19] atenolol 50 mg PO BID 11/12/16 [History Last Taken 05/20/19] coenzyme Q10 [Co Q-10] 100 mg PO DAILY 11/12/16 [History Last Taken 05/20/19] dulaglutide [Trulicity] 0.5 ml SQ WE 11/12/16 [History Last Taken 05/18/19] hydralazine 25 mg PO DAILY 11/12/16 [History Last Taken 05/20/19] losartan 100 mg PO QHS 11/12/16 [History Last Taken 05/19/19] magnesium oxide 400 mg PO DAILY 11/12/16 [History Last Taken 05/20/19] cinnamon bark 500 mg PO BID 05/20/19 [History Last Taken 05/20/19] furosemide 20 mg PO DAILY 05/20/19 [History Last Taken 05/20/19] glimepiride 4 mg PO BID 05/20/19 [History Last Taken 05/20/19] red yeast rice 600 mg PO BID 05/20/19 [History Last Taken 05/20/19] selenium 200 mcg PO DAILY 05/20/19 [History Last Taken 05/20/19] spironolactone 50 mg PO DAILY 05/20/19 [History Last Taken 05/20/19] warfarin 7 mg PO DAILY 05/20/19 [History Last Taken 05/19/19] ascorbic acid (vitamin C) [Vitamin C] 1 g PO DAILY 05/08/21 [History Last Taken Unknown] cholecalciferol (vitamin D3) [Vitamin D3] 50 mcg PO DAILY 05/08/21 [History Last Taken Unknown] dexamethasone 6 mg PO DAILY 05/08/21 [History Last Taken Unknown] empagliflozin [Jardiance] 25 mg PO DAILY 05/08/21 [History Last Taken Unknown] hydralazine 50 mg PO QHS 05/08/21 [History Last Taken Unknown] icosapent ethyl [Vascepa] 2 g PO BID 05/08/21 [History Last Taken Unknown] multivitamin 1 tab PO DAILY 05/08/21 [History Last Taken Unknown] pioglitazone 15 - 30 mg PO DAILY 05/08/21 [History Last Taken Unknown] psyllium husk 3 g PO BID 05/08/21 [History Last Taken Unknown] vitamin K2 100 mcg PO DAILY 05/08/21 [History Last Taken Unknown] zinc 50 mg PO DAILY 05/08/21 [History Last Taken Unknown] Allergy/AdvReac Type Severity Reaction Status Date / Time No Known Allergies Allergy Verified 05/08/21 10:21 Family History (Updated 05/08/21 @ 14:[address] Fredrick Lyon MD) Father Heart disease Mother CVA (cerebral vascular accident) Surgical History (Updated 05/08/21 @ 10:33 by Norma Sanford) History of back surgery Social History (Updated 05/08/21 @ 10:[address] Jasen Gnozalez, DO) Smoking Status: Never smoker substance use type: does not use ROS ROS Narrative GENERAL: denies fever, chills, night sweats, weight loss, anorexia HEENT: denies headache, sinus congestion, or drainage, dysphagia RESPIRATORY: cough, sputum production, shortness of breath, dyspnea on exertion CARDIAC: denies chest pain, palpitations, orthopnea, PND GASTROINTESTINAL: denies abdominal pain, nausea, vomiting, melena, GENITOURINARY: denies dysuria, urgency, frequency, heamaturia EXTREMITY: denies swelling MUSCULOSKELETAL: denies current joint pain or tenderness NEUROLOGIC: denies focal numbness, weakness, tingling HEMATOLOGIC: denies easy bruising and/or hemorrhage INTEGUMENT: denies rashes PSYCHIATRIC: denies suicidal or homicidal ideation Vital Signs Vital Signs Vital Signs: 05/08/21 10:21 05/08/21 10:26 05/08/21 10:31 Temperature 96.8 F L 96.8 F L Temperature Source Temporal Temporal Pulse Rate 66 65 64 Respiratory Rate 35 H 28 H 25 H Respiratory Effort Short of Breath Respiratory Pattern Tachypnea Blood Pressure 136/70 H 115/63 Blood Pressure Mean 92 80 Pulse Ox 77 88 88 Oxygen Delivery Method Room Air Nasal Cannula Nasal Cannula Oxygen Flow Rate (L/min) 6 11 05/08/21 11:20 Temperature Temperature Source Pulse Rate 64 Respiratory Rate 30 H Respiratory Effort Respiratory Pattern Blood Pressure 124/63 H Blood Pressure Mean 83 Pulse Ox 91 Oxygen Delivery Method Nasal Cannula Oxygen Flow Rate (L/min) 12 Weight Weight: 132.4 kg Body Mass Index (BMI) 38.5 Physical Exam Narrative GENERAL: cooperative but dyspneic at rest HEENT: Atraumatic; EYES; Anicteric, Normal Conjunctiva NECK; supple, normal thyroid, RESPIRATORY: Diminished to auscultation CARDIOVASCULAR: Regular S1 S2, GI: soft, normoactive bowel sounds, : No Renal angle tenderness; EXTREMITIES: No edema, no clubbing, MUSCULOSKELETAL: no muscle waisting NEURO: Awake; no lateralizing signs. SKIN: No Rash PSYCH; Flat affect Results Lab / Micro Data Result Diagrams: 05/08/21 10:33 05/08/21 10:33 Labs: Laboratory Results - last 24 hr 05/08/21 10:33: WBC 17.3 H, RBC 5.42, Hgb 16.7 H, Hct 51.2, MCV 94.5 H, MCH 30.8, MCHC 32.6, RDW Std Deviation 51.3 H, RDW Coeff of Geovanna 14.6, Plt Count 311, MPV 10.0, Immature Gran % (Auto) 4.900 H, Neut % (Auto) 88.0 H, Lymph % (Auto) 3.4 L, [place] % (Auto) 3.3, Eos % (Auto) 0.0, Baso % (Auto) 0.4, Absolute Neuts (auto) 15.2 H, Absolute Lymphs (auto) 0.59 L, Nucleated RBC % 0 05/08/21 10:33: D-Dimer Quant (PE/DVT) 0.76 H* 05/08/21 10:33: Sodium 133 L, Potassium 5.2 H, Chloride 100, Carbon Dioxide 16.0 L, Anion Gap 17 H, BUN 66 H, Creatinine 2.38 H, Estim Creat Clear Calc 33.57, Est GFR (MDRD) Af Amer 35 L, Est GFR (MDRD) Non-Af 29 L, BUN/Creatinine Ratio 27.7 H, Glucose 361 H, Calcium 9.1, Total Bilirubin 0.80, AST 94 H, ALT 71 H, Alkaline Phosphatase 55, Troponin I High Sens 3048 H*, Total Protein 7.9, Albumin 2.7 L, Globulin 5.2 H, Albumin/Globulin Ratio 0.5 L 05/08/21 10:33: Lactic Acid 2.5 H* Micro: Microbiology 05/08/21 10:29 Nasal Secretion SARS-CoV-2 Antigen (Rapid) - Final SARS-CoV-2 (COVID 19) Radiology Impression Chest X-Ray 05/08/21 10:45 IMPRESSION: Patchy bilateral alveolar infiltrates worse in the right hemithorax suggestive of bilateral pneumonias. Electronically Signed: Delfin Baker MD at 11:12 EDT , Service support , Assessment & Plan Assessment/Plan (1) COVID-19: (2) Acute hypoxemic respiratory failure: (3) Supratherapeutic INR: (4) PROSPER (acute kidney injury): PLAN: Patient is a 70-year-old gentleman presented with shortness of breath 1. Acute hypoxic respiratory failure secondary to SARS-CoV-2 pneumonia ?Chest x-ray obtained on admission demonstrated Patchy bilateral alveolar infiltrates worse in the right hemithorax suggestive of bilateral pneumonias. Patient admitted to the intensive care unit placed on supplemental oxygen titrated to keep saturation greater than 90. As part of his management patient was placed on Decadron consult placed to both ID and pulmonary medicine. Patient was started on both remdesivir as well as baricitinib disease 2. Acute kidney injury ?Superimposed on chronic kidney disease stage III. Patient baseline creatinine 1.6 to creatinine on admission 2.38. Do suspect dehydration from decreased oral intake as a result of above, as well as patient being on diuretics. Suspected offending medications discontinued patient started on IV fluids with consultation placed to nephrology 3. Diabetes mellitus type II -patient's oral hypoglycemics held. Placed on long acting insulin, Accu-Cheks a.c. and at bedtime and covered with sliding scale insulin 4. Hypertension - Blood pressure controlled, home medications continued with dose adjustment as needed 5. History of previous DVT ?Patient is on systemic anticoagulation with Coumadin. INR was markedly elevated on admission. Patient currently does not require vitamin K or FFP. Coumadin held daily monitoring with INR ordered 6. Obesity with BMI of 38.5 ?Weight loss advised 7. DVT prophylaxis ?Patient already on systemic anticoagulation with Coumadin Charges/Coding Visit Charges Inpatient E&M: 84485 Init Hosp L3
[2021-05-08 11:45] LABS: Partial Thromboplast Time 57.5 Seconds (24.1-36.2); Prothrombin Time (Protime)PT. 56.3 SECONDS (11.7-14.9)
--- NOTE | 2021-05-08 11:45 | NURSING ---
ICU 7
[2021-05-08 11:52] LABS: International Normalized Ratio 6.5
[2021-05-08] MEDS: 0.9% Normal Saline 1,000 ML 125 ML IV ×2 (12:55→21:08)
[2021-05-08] MEDS: dexAMETHasone 10 MG/ML Vial 6 MG IV (12:59)
--- NOTE | 2021-05-08 13:26 | CON.PCM.CC_ITS ---
Assessment & Plan Assessment/Plan (1) COVID-19: (2) Supratherapeutic INR: (3) Acute hypoxemic respiratory failure: (4) PROSPER (acute kidney injury): PLAN: RECOMMENDATIONS: 1. Wean supplemental oxygen to maintain saturations at or above 90%. 2. Continue remdesivir to complete 5-day treatment course. Continue to monitor liver and renal function. 3. Continue Decadron to complete 10-day treatment course. 4. Recommend infectious disease consultation for potential baricitinib therapy. 5. Encourage incentive spirometer use and mobilize patient as tolerated. 6. Awake prone positioning is encouraged. IMPRESSIONS: 1. Acute hypoxemic respiratory failure secondary to COVID-19 pneumonia The patient presented to the hospital with approximately 6 days of worsening dyspnea, cough and hypoxemia. He subsequently tested positive for coronavirus. Plan to continue supplemental oxygen to maintain saturations at or above 90%. The patient is a candidate for remdesivir, which has been ordered. Continue to monitor liver and renal function. In addition, the patient will be continued on Decadron to complete a 10-day treatment course. Recommend infectious diseases consultation for possible baricitinib therapy. 2. Acute on chronic kidney disease Likely prerenal in etiology. Nephrology consultation is pending. Continue current supportive measures. 3. Troponin elevation Likely secondary to demand ischemia in the setting of #1. Consultation placed to cardiology. 4. Diabetes mellitus with DKA likely Consider initiating insulin infusion per DKA protocol. 5. History of DVT/coagulopathy Given supratherapeutic INR, continue to hold Coumadin. No indication for emergent reversal. This note was generated with [employer] dictation software. It may contain incorrect words, spelling, and punctuation that were not noted in checking the note before signing. HPI Consult Data Date of Consult: 05/09/21 HPI Narrative Reason for Consultation: Acute hypoxemic respiratory failure HPI Narrative: The patient is a 70-year-old male, with a history as outlined below, who presented to the emergency department on May 08 with dyspnea, cough and hypoxemia. The patient reported that his symptoms initially began on May 02. He denies any known sick contact exposure. The patient is unvaccinated. On presentation to the emergency department, the patient was noted to be afebrile hemodynamically stable. He was, nevertheless, tachypneic and hypoxemic. Initial laboratory evaluation revealed an elevated white blood cell count to 17,000. INR was elevated at 6.5. D-dimer was noted to be 0.76. Chemistry profile was notable for a creatinine of 2.38 along with a potassium of 5.2 and an anion gap of 17. Lactate was elevated to 2.5. Troponin was increased to 3048. Rapid coronavirus antigen testing was positive. Chest x-ray demonstrated bilateral airspace disease, right greater than left. [facility] Medical History Diabetes DVT (deep venous thrombosis) Home Medications acarbose [Precose] 50 - 100 mg PO TIDCM 11/12/16 [History Last Taken 05/20/19] atenolol 50 mg PO BID 11/12/16 [History Last Taken 05/20/19] coenzyme Q10 [Co Q-10] 100 mg PO DAILY 11/12/16 [History Last Taken 05/20/19] dulaglutide [Trulicity] 0.5 ml SQ WE 11/12/16 [History Last Taken 05/18/19] hydralazine 25 mg PO DAILY 11/12/16 [History Last Taken 05/20/19] losartan 100 mg PO QHS 11/12/16 [History Last Taken 05/19/19] magnesium oxide 400 mg PO DAILY 11/12/16 [History Last Taken 05/20/19] cinnamon bark 500 mg PO BID 05/20/19 [History Last Taken 05/20/19] furosemide 20 mg PO DAILY 05/20/19 [History Last Taken 05/20/19] glimepiride 4 mg PO BID 05/20/19 [History Last Taken 05/20/19] red yeast rice 600 mg PO BID 05/20/19 [History Last Taken 05/20/19] selenium 200 mcg PO DAILY 05/20/19 [History Last Taken 05/20/19] spironolactone 50 mg PO DAILY 05/20/19 [History Last Taken 05/20/19] warfarin 7 mg PO DAILY 05/20/19 [History Last Taken 05/19/19] ascorbic acid (vitamin C) [Vitamin C] 1 g PO DAILY 05/08/21 [History Last Taken Unknown] cholecalciferol (vitamin D3) [Vitamin D3] 50 mcg PO DAILY 05/08/21 [History Last Taken Unknown] dexamethasone 6 mg PO DAILY 05/08/21 [History Last Taken Unknown] empagliflozin [Jardiance] 25 mg PO DAILY 05/08/21 [History Last Taken Unknown] hydralazine 50 mg PO QHS 05/08/21 [History Last Taken Unknown] icosapent ethyl [Vascepa] 2 g PO BID 05/08/21 [History Last Taken Unknown] multivitamin 1 tab PO DAILY 05/08/21 [History Last Taken Unknown] pioglitazone 15 - 30 mg PO DAILY 05/08/21 [History Last Taken Unknown] psyllium husk 3 g PO BID 05/08/21 [History Last Taken Unknown] vitamin K2 100 mcg PO DAILY 05/08/21 [History Last Taken Unknown] zinc 50 mg PO DAILY 05/08/21 [History Last Taken Unknown] Allergy/AdvReac Type Severity Reaction Status Date / Time No Known Allergies Allergy Verified 05/08/21 10:21 Family History Father Heart disease Mother CVA (cerebral vascular accident) Surgical History History of back surgery Social History Smoking Status: Never smoker substance use type: does not use ROS Constitutional Constitutional: Reports fatigue and headache(s); Denies chills Eyes Eyes: Denies blurry vision or change in vision ENT HEENT: Reports headache(s) Cardiovascular Cardiovascular: Reports dyspnea; Denies chest pain or lightheadedness Respiratory/Chest Respiratory/Chest: Reports cough and dyspnea; Denies chest tightness Gastrointestinal Gastrointestinal: Denies abdominal pain, diarrhea, nausea or vomiting Genitourinary Genitourinary: Denies difficulty urinating Musculoskeletal Musculoskeletal: Denies arthralgias, back pain or joint pain Integumentary Integumentary: Denies lesions, rash or skin ulcer Neurologic Neurologic: Denies abnormal gait or abnormal speech Psychiatric Psychiatric: Denies anxiety, depression or hallucinations Endocrine Endocrinology: Denies fatigue Hematologic/Lymphatic Hematologic/Lymphatic: Denies easy bleeding or easy bruising Physical Exam Const alert and no apparent distress General Appearance: cooperative Nutritional Appearance: morbidly obese HEENT normocephalic, head/scalp atraumatic and moist oral mucous membranes Eyes PERRL, EOMs intact bilaterally and conjunctivae normal Neck supple General: trachea midline Chest inspection of chest normal Resp Effort and Inspection: tachypneic Auscultation: diminished lung sounds; Negative for rales, rhonchi or wheezes Cardio regular rate and regular rhythm GI normal to inspection, nondistended, normoactive bowel sounds Extremity no clubbing, cyanosis or edema Skin no rashes or lesions noted Neuro CN's II-XII intact bilaterally, moves all extremities and no focal motor deficits Psych cooperative and affect normal Lab / Micro Data Result Diagrams: 05/09/21 07:24 05/09/21 07:24 Labs: Laboratory Results - last 24 hr 05/08/21 10:33: WBC 17.3 H, RBC 5.42, Hgb 16.7 H, Hct 51.2, MCV 94.5 H, MCH 30.8, MCHC 32.6, RDW Std Deviation 51.3 H, RDW Coeff of Geovanna 14.6, Plt Count 311, MPV 10.0, Immature Gran % (Auto) 4.900 H, Neut % (Auto) 88.0 H, Lymph % (Auto) 3.4 L, [place] % (Auto) 3.3, Eos % (Auto) 0.0, Baso % (Auto) 0.4, Absolute Neuts (auto) 15.2 H, Absolute Lymphs (auto) 0.59 L, Nucleated RBC % 0 05/08/21 10:33: D-Dimer Quant (PE/DVT) 0.76 H* 05/08/21 10:33: Sodium 133 L, Potassium 5.2 H, Chloride 100, Carbon Dioxide 16.0 L, Anion Gap 17 H, BUN 66 H, Creatinine 2.38 H, Estim Creat Clear Calc 33.57, E st GFR (MDRD) Af Amer 35 L, Est GFR (MDRD) Non-Af 29 L, BUN/Creatinine Ratio 27.7 H, Glucose 361 H, Calcium 9.1, Total Bilirubin 0.80, AST 94 H, ALT 71 H, Alkaline Phosphatase 55, Troponin I High Sens 3048 H*, Total Protein 7.9, Albumin 2.7 L, Globulin 5.2 H, Albumin/Globulin Ratio 0.5 L 05/08/21 10:33: Lactic Acid 2.5 H* 05/08/21 10:33: PT 56.3 H, INR 6.5 H*, APTT 57.5 H Micro: Microbiology 05/08/21 10:29 Nasal Secretion SARS-CoV-2 Antigen (Rapid) - Final SARS-CoV-2 (COVID 19) Radiology Impression Chest X-Ray 05/08/21 10:45 IMPRESSION: Patchy bilateral alveolar infiltrates worse in the right hemithorax suggestive of bilateral pneumonias. Electronically Signed: Delfin Baker MD at 11:12 EDT , Service support , Charges/Coding Visit Charges Inpatient E&M: 92957 Init Hosp L3
--- NOTE | 2021-05-08 13:54 | CON.PCM.ID_ITS ---
Assessment & Plan Assessment/Plan (1) COVID-19: PLAN: Sx started around 05/02. Unvaccinated. Recommend get retested, and contact PCP for monoclonal Ab if (+). On dex. On airvo. With severity of illness and CKD, discussed risks of benefits of remdesivir and baricitinib with him, will order both. Isolate for 20 days, recommend vaccine once out of iso. Will follow, thank you (2) Acute hypoxemic respiratory failure: HPI Consult Data Date of Consult: 05/08/21 HPI Narrative HPI Narrative: BRENDON DAVID, is a 70 M who presents to [facility] with sx since 05/02- , c/o headache, fatigue, fever/chills, mild cough and progressive dyspnea. He and tested covid neg on 05/07. is asymptomatic, both unvaccinated. With worsening sx, came to ED, covid (+), hypoxic. Admitted to icu on airvo. Full ROS performed and neg except as noted above. No change in taste/smell, no n/v/d, no myalgias. [facility] Medical History Diabetes DVT (deep venous thrombosis) Home Medications acarbose [Precose] 50 - 100 mg PO TIDCM 11/12/16 [History Last Taken 05/20/19] atenolol 50 mg PO BID 11/12/16 [History Last Taken 05/20/19] coenzyme Q10 [Co Q-10] 100 mg PO DAILY 11/12/16 [History Last Taken 05/20/19] dulaglutide [Trulicity] 0.5 ml SQ WE 11/12/16 [History Last Taken 05/18/19] hydralazine 25 mg PO DAILY 11/12/16 [History Last Taken 05/20/19] losartan 100 mg PO QHS 11/12/16 [History Last Taken 05/19/19] magnesium oxide 400 mg PO DAILY 11/12/16 [History Last Taken 05/20/19] cinnamon bark 500 mg PO BID 05/20/19 [History Last Taken 05/20/19] furosemide 20 mg PO DAILY 05/20/19 [History Last Taken 05/20/19] glimepiride 4 mg PO BID 05/20/19 [History Last Taken 05/20/19] red yeast rice 600 mg PO BID 05/20/19 [History Last Taken 05/20/19] selenium 200 mcg PO DAILY 05/20/19 [History Last Taken 05/20/19] spironolactone 50 mg PO DAILY 05/20/19 [History Last Taken 05/20/19] warfarin 7 mg PO DAILY 05/20/19 [History Last Taken 05/19/19] ascorbic acid (vitamin C) [Vitamin C] 1 g PO DAILY 05/08/21 [History Last Taken Unknown] cholecalciferol (vitamin D3) [Vitamin D3] 50 mcg PO DAILY 05/08/21 [History Last Taken Unknown] dexamethasone 6 mg PO DAILY 05/08/21 [History Last Taken Unknown] empagliflozin [Jardiance] 25 mg PO DAILY 05/08/21 [History Last Taken Unknown] hydralazine 50 mg PO QHS 05/08/21 [History Last Taken Unknown] icosapent ethyl [Vascepa] 2 g PO BID 05/08/21 [History Last Taken Unknown] multivitamin 1 tab PO DAILY 05/08/21 [History Last Taken Unknown] pioglitazone 15 - 30 mg PO DAILY 05/08/21 [History Last Taken Unknown] psyllium husk 3 g PO BID 05/08/21 [History Last Taken Unknown] vitamin K2 100 mcg PO DAILY 05/08/21 [History Last Taken Unknown] zinc 50 mg PO DAILY 05/08/21 [History Last Taken Unknown] Allergy/AdvReac Type Severity Reaction Status Date / Time No Known Allergies Allergy Verified 05/08/21 10:21 Surgical History (Updated 05/08/21 @ 10:33 by Norma Sanford) History of back surgery Social History (Updated 05/08/21 @ 10:[address] Jasen Gonzalez, DO) Smoking Status: Never smoker substance use type: does not use Physical Exam Const alert and oriented x3 General Appearance: cooperative Exam Limitations: no limitations HEENT normocephalic and head/scalp atraumatic Eyes PERRL and EOMs intact bilaterally Neck supple and No nodes Resp Auscultation: diminished lung sounds Cardio regular rate and regular rhythm GI normal to inspection, nondistended, normoactive bowel sounds Extremity no clubbing, cyanosis or edema Skin no rashes or lesions noted Neuro CN's II-XII intact bilaterally Lab / Micro Data Result Diagrams: 05/08/21 10:33 05/08/21 10:33 Labs: Laboratory Results - last 24 hr 05/08/21 10:33: WBC 17.3 H, RBC 5.42, Hgb 16.7 H, Hct 51.2, MCV 94.5 H, MCH 30.8, MCHC 32.6, RDW Std Deviation 51.3 H, RDW Coeff of Geovanna 14.6, Plt Count 311, MPV 10.0, Immature Gran % (Auto) 4.900 H, Neut % (Auto) 88.0 H, Lymph % (Auto) 3.4 L, [place] % (Auto) 3.3, Eos % (Auto) 0.0, Baso % (Auto) 0.4, Absolute Neuts (auto) 15.2 H, Absolute Lymphs (auto) 0.59 L, Nucleated RBC % 0 05/08/21 10:33: D-Dimer Quant (PE/DVT) 0.76 H* 05/08/21 10:33: Sodium 133 L, Potassium 5.2 H, Chloride 100, Carbon Dioxide 16.0 L, Anion Gap 17 H, BUN 66 H, Creatinine 2.38 H, Estim Creat Clear Calc 33.57, Est GFR (MDRD) Af Amer 35 L, Est GFR (MDRD) Non-Af 29 L, BUN/Creatinine Ratio 27.7 H, Glucose 361 H, Calcium 9.1, Total Bilirubin 0.80, AST 94 H, ALT 71 H, Alkaline Phosphatase 55, Troponin I High Sens 3048 H*, Total Protein 7.9, Albumin 2.7 L, Globulin 5.2 H, Albumin/Globulin Ratio 0.5 L 05/08/21 10:33: Lactic Acid 2.5 H* 05/08/21 10:33: PT 56.3 H, INR 6.5 H*, APTT 57.5 H Micro: Microbiology 05/08/21 10:29 Nasal Secretion SARS-CoV-2 Antigen (Rapid) - Final SARS-CoV-2 (COVID 19) Radiology Impression Chest X-Ray 05/08/21 10:45 IMPRESSION: Patchy bilateral alveolar infiltrates worse in the right hemithorax suggestive of bilateral pneumonias. Electronically Signed: Delfin Baker MD at 11:12 EDT , Service support ,
[2021-05-08 14:40] LABS: Reflex Lactate? Y
[2021-05-08 15:30] LABS: Bedside Glucose 426 mg/dL (70-110)
--- NOTE | 2021-05-08 16:00 | PCM.CONS.R ---
Assessment & Plan Assessment/Plan (1) COVID-19: (2) Acute hypoxemic respiratory failure: (3) PROSPER (acute kidney injury): (4) Supratherapeutic INR: PLAN: Patient has nonoliguric PROSPER superimposed on CKD stage III, likely PROSPER is prerenal. In reviewing past creatinine trends, baseline creatinine ranging 1.6 to 1.9 mg/dL. Creatinine on admission 2.38 mg/dL. Continue holding lasix, aldactone and losartan. Will obtain a urinalysis. Patient is on IV fluids. Will give 1 amp bicarb as CO2 is 16, potassium mildly elevated at 5.2, lactic acid 2.5. Recommend strict I/O. Patient does not have Jett (INR was 6.5). Recommend avoiding nephrotoxic agents. At this time there is no acute indication for [employer]. Blood pressures have been acceptable, currently not on any antihypertensives. ID following, patient on dexamethasone, remdesivir, Baricitinib. He is requiring O2 at 12 L Further orders forthcoming as hospitalization evolves. HPI Consult Data Date of Consult: 05/08/21 HPI Narrative HPI Narrative: BRENDON DAVID, is a 70 M who presented to the emergency room with complaints of shortness of breath. Apparently patient had not been feeling well for the last week, he had a cough and shortness of breath. He received a Covid test on Thursday which was negative. Today patient tested positive for Covid and was admitted to ICU for further evaluation and treatment. Chest x-ray today showed patchy bilateral alveolar infiltrates worse in right hemothorax suggestive of bilateral pneumonia. Information was gathered from the chart. Patient was seen from outside his ICU room. We were consulted for acute kidney injury. In reviewing past creatinine trends, patient has had elevated creatinine since 2014. Patient has not been seen by our group in the past. Baseline creatinine has been ranging around 1.6 to 1.9 mg/dL. Today patient's creatinine was 2.38 mg/dL. [facility] Medical History Diabetes DVT (deep venous thrombosis) Home Medications acarbose [Precose] 50 - 100 mg PO TIDCM 11/12/16 [History Last Taken 05/20/19] atenolol 50 mg PO BID 11/12/16 [History Last Taken 05/20/19] coenzyme Q10 [Co Q-10] 100 mg PO DAILY 11/12/16 [History Last Taken 05/20/19] dulaglutide [Trulicity] 0.5 ml SQ WE 11/12/16 [History Last Taken 05/18/19] hydralazine 25 mg PO DAILY 11/12/16 [History Last Taken 05/20/19] losartan 100 mg PO QHS 11/12/16 [History Last Taken 05/19/19] magnesium oxide 400 mg PO DAILY 11/12/16 [History Last Taken 05/20/19] cinnamon bark 500 mg PO BID 05/20/19 [History Last Taken 05/20/19] furosemide 20 mg PO DAILY 05/20/19 [History Last Taken 05/20/19] glimepiride 4 mg PO BID 05/20/19 [History Last Taken 05/20/19] red yeast rice 600 mg PO BID 05/20/19 [History Last Taken 05/20/19] selenium 200 mcg PO DAILY 05/20/19 [History Last Taken 05/20/19] spironolactone 50 mg PO DAILY 05/20/19 [History Last Taken 05/20/19] warfarin 7 mg PO DAILY 05/20/19 [History Last Taken 05/19/19] ascorbic acid (vitamin C) [Vitamin C] 1 g PO DAILY 05/08/21 [History Last Taken Unknown] cholecalciferol (vitamin D3) [Vitamin D3] 50 mcg PO DAILY 05/08/21 [History Last Taken Unknown] dexamethasone 6 mg PO DAILY 05/08/21 [History Last Taken Unknown] empagliflozin [Jardiance] 25 mg PO DAILY 05/08/21 [History Last Taken Unknown] hydralazine 50 mg PO QHS 05/08/21 [History Last Taken Unknown] icosapent ethyl [Vascepa] 2 g PO BID 05/08/21 [History Last Taken Unknown] multivitamin 1 tab PO DAILY 05/08/21 [History Last Taken Unknown] pioglitazone 15 - 30 mg PO DAILY 05/08/21 [History Last Taken Unknown] psyllium husk 3 g PO BID 05/08/21 [History Last Taken Unknown] vitamin K2 100 mcg PO DAILY 05/08/21 [History Last Taken Unknown] zinc 50 mg PO DAILY 05/08/21 [History Last Taken Unknown] Allergy/AdvReac Type Severity Reaction Status Date / Time No Known Allergies Allergy Verified 05/08/21 10:21 Family History Father Heart disease Mother CVA (cerebral vascular accident) Surgical History History of back surgery Social History Smoking Status: Never smoker substance use type: does not use Physical Exam Narrative Patient not directly examined, seen from outside ICU room. Lab / Micro Data Result Diagrams: 05/08/21 10:33 05/08/21 10:33 Labs: Laboratory Results - last 24 hr 05/08/21 10:33: WBC 17.3 H, RBC 5.42, Hgb 16.7 H, Hct 51.2, MCV 94.5 H, MCH 30.8, MCHC 32.6, RDW Std Deviation 51.3 H, RDW Coeff of Geovanna 14.6, Plt Count 311, MPV 10.0, Immature Gran % (Auto) 4.900 H, Neut % (Auto) 88.0 H, Lymph % (Auto) 3.4 L, Kenton % (Auto) 3.3, Eos % (Auto) 0.0, Baso % (Auto) 0.4, Absolute Neuts (auto) 15.2 H, Absolute Lymphs (auto) 0.59 L, Nucleated RBC % 0 05/08/21 10:33: D-Dimer Quant (PE/DVT) 0.76 H* 05/08/21 10:33: Sodium 133 L, Potassium 5.2 H, Chloride 100, Carbon Dioxide 16.0 L, Anion Gap 17 H, BUN 66 H, Creatinine 2.38 H, Estim Creat Clear Calc 33.57, Est GFR (MDRD) Af Amer 35 L, Est GFR (MDRD) Non-Af 29 L, BUN/Creatinine Ratio 27.7 H, Glucose 361 H, Calcium 9.1, Total Bilirubin 0.80, AST 94 H, ALT 71 H, Alkaline Phosphatase 55, Troponin I High Sens 3048 H*, Total Protein 7.9, Albumin 2.7 L, Globulin 5.2 H, Albumin/Globulin Ratio 0.5 L 05/08/21 10:33: Lactic Acid 2.5 H* 05/08/21 10:33: PT 56.3 H, INR 6.5 H*, APTT 57.5 H 05/08/21 15:22: POC Glucose 426 H Micro: Microbiology 05/08/21 10:29 Nasal Secretion SARS-CoV-2 Antigen (Rapid) - Final SARS-CoV-2 (COVID 19) Radiology Impression Chest X-Ray 05/08/21 10:45 IMPRESSION: Patchy bilateral alveolar infiltrates worse in the right hemithorax suggestive of bilateral pneumonias. Electronically Signed: Delfin Baker MD at 11:12 EDT , Service support ,
[2021-05-08] MEDS: Insulin Lispro 100 UNIT/ML INSULN.PEN SC (16:47)
[2021-05-08] MEDS: Sodium Bicarbonate 8.4% 50 ML Syringe 50 MEQ IV (18:25)
[2021-05-08] MEDS: Insulin Lispro 100 UNIT/ML INSULN.PEN 20 UNIT SC (21:21)
[2021-05-08 22:00] LABS: Bedside Glucose > 500 mg/dL (70-110)
[2021-05-08 22:50] LABS: Bedside Glucose > 500 mg/dL (70-110)
--- NOTE | 2021-05-08 23:03 | PCM.HOSP.N ---
Hospitalist Note From review of labs patient presentation with evidence DKA, BS continue to be elevated in the setting of COVID and decadron administration. Will d/c diet, start insulin drip, initiate DKA order set, obtain mag and phos level, obtain HgBA1c. Given notable trop with NSTEMI likely demand given presentation will cycle cardiac enzymes, start heparin drip and add baby asa for AM.
[2021-05-09] VITALS (34 sets, daily range): BP systolic 112–150; BP diastolic 54–88; PULSE 55–66; RESP 10–29; TEMP 33.9–36.8; O2SAT 17–99
[2021-05-09 00:28] LABS: Anion Gap 9 (5-15); BUN 76 mg/dL (7-18); BUN/Creat Ratio 32.3 RATIO (10-20); Calcium,Total 8.6 mg/dL (8.5-10.1); Chloride 104 mmol/L (98-107); Creatinine, Serum 2.35 mg/dL (0.70-1.30); EST Glomerular Filtration Rate 29 mL/min (>60); Est Glom Filt Rate - Afr Amer 36 mL/min (>60); Estimated Creatinine Clearance 33.02 ml/min; Glucose 499 mg/dL (74-106); Magnesium 3.4 mg/dL (1.6-2.6); Phosphorus 3.3 mg/dL (2.5-4.9); Potassium 4.7 mmol/L (3.5-5.1); Sodium Level 134 mmol/L (136-145); Troponin-I HS 1776 pg/mL (3.0-78.0)
[2021-05-09 00:56] LABS: Bedside Glucose 417 mg/dL (70-110)
[2021-05-09 01:54] LABS: Osmolality, Serum 339 mOsm/KG (280-301)
[2021-05-09 02:01] LABS: Bedside Glucose 307 mg/dL (70-110)
[2021-05-09 02:51] LABS: Bedside Glucose 282 mg/dL (70-110)
[2021-05-09 03:58] LABS: Anion Gap 8 (5-15); BUN 73 mg/dL (7-18); Chloride 109 mmol/L (98-107); Creatinine, Serum 2.21 mg/dL (0.70-1.30); EST Glomerular Filtration Rate 32 mL/min (>60); Est Glom Filt Rate - Afr Amer 38 mL/min (>60); Estimated Creatinine Clearance 35.11 ml/min; Glucose 330 mg/dL (74-106); Potassium 4.6 mmol/L (3.5-5.1); Sodium Level 137 mmol/L (136-145); Troponin-I HS 1886 pg/mL (3.0-78.0)
[2021-05-09] MEDS: 0.9% Normal Saline 1,000 ML 125 ML IV (04:10)
[2021-05-09 04:16] LABS: Bedside Glucose 254 mg/dL (70-110)
[2021-05-09 05:31] LABS: Bedside Glucose 233 mg/dL (70-110)
[2021-05-09] MEDS: Acetaminophen 325 MG Tablet 650 MG PO (05:48)
[2021-05-09] MEDS: Dext 5%-0.45% NS 1,000 ML 150 ML IV (05:48)
--- NOTE | 2021-05-09 05:55 | EKG12_ITS ---
Test Reason : AM EKG Blood Pressure : / mmHG Vent. Rate : 057 BPM Atrial Rate : 057 BPM P-R Int : 132 ms QRS Dur : 090 ms QT Int : 452 ms P-R-T Axes : 032 002 000 degrees QTc Int : 439 ms Sinus bradycardia Nonspecific T wave abnormality Confirmed by NICOLE PIERSON, ALVIN ([id number]), slot editor NEEMA MIJARES ([id number]) on 05/13/2021 1:52:09 PM Referred By: DR ROBERTS Confirmed By:ALVIN RIVERA MD
[2021-05-09 07:44] LABS: Hematocrit 44.6 % (40-54); Hemoglobin 14.8 g/dL (13.0-16.5); Mean Corp Hgb Conc 33.2 g/dL (32-36); Mean Corpuscular Hgb 30.8 pg (27.0-32.0); Mean Corpuscular Volume 92.9 fL (80-94); Mean Platelet Vol. 9.5 fl (6.2-12.0); POSITIVE COUNT YES; POSITIVE MORPHOLOGY YES; Platelet Count 317 K/mm3 (150-450); RBC Distribution Width CV 14.2 % (11.6-14.6); White Blood Count 15.1 K/mm3 (4.4-11.0)
--- NOTE | 2021-05-09 07:52 | PN.HOSP_ITS ---
Subjective Subjective Patient was admitted to the intensive care unit. Placed on noninvasive ventilation. Patient was started on insulin drip as a result of elevated anion gap. Insulin drip discontinued this a.m. Patient also has markedly elevated troponin level consult placed to cardiology Objective Data Objective Data Vital Signs: Vital Signs Temp Pulse Resp BP Pulse Ox 98.2 F 55 L 22 H 138/77 H 96 05/09/21 00:00 05/09/21 06:00 05/09/21 06:00 05/09/21 06:00 05/09/21 06:00 Oxygen Flow Rate (L/min) 55 Oxygen Delivery Method Airvo Weight: 127.7 kg Body Mass Index (BMI) 38.7 Intake & Output: Intake and Output for Last 24 Hours 05/07/21 05/08/21 05/09/21 23:59 23:59 23:59 Intake Total 2475 / 2475 1118.86 / 1118.86 Output Total 1465 / 1465 400 / 400 Balance 1010 / 1010 718.86 / 718.86 Lab / Micro Data Result Diagrams: 05/09/21 07:24 05/09/21 07:24 Labs: Laboratory Results - last 24 hr 05/08/21 10:33: WBC 17.3 H, RBC 5.42, Hgb 16.7 H, Hct 51.2, MCV 94.5 H, MCH 30.8, MCHC 32.6, RDW Std Deviation 51.3 H, RDW Coeff of Geovanna 14.6, Plt Count 311, MPV 10.0, Immature Gran % (Auto) 4.900 H, Neut % (Auto) 88.0 H, Lymph % (Auto) 3.4 L, Sebastian % (Auto) 3.3, Eos % (Auto) 0.0, Baso % (Auto) 0.4, Absolute Neuts (auto) 15.2 H, Absolute Lymphs (auto) 0.59 L, Nucleated RBC % 0 05/08/21 10:33: D-Dimer Quant (PE/DVT) 0.76 H* 05/08/21 10:33: Sodium 133 L, Potassium 5.2 H, Chloride 100, Carbon Dioxide 16.0 L, Anion Gap 17 H, BUN 66 H, Creatinine 2.38 H, Estim Creat Clear Calc 33.57, Est GFR (MDRD) Af Amer 35 L, Est GFR (MDRD) Non-Af 29 L, BUN/Creatinine Ratio 27.7 H, Glucose 361 H, Calcium 9.1, Total Bilirubin 0.80, AST 94 H, ALT 71 H, Alkaline Phosphatase 55, Troponin I High Sens 3048 H*, Total Protein 7.9, Albumin 2.7 L, Globulin 5.2 H, Albumin/Globulin Ratio 0.5 L 05/08/21 10:33: Lactic Acid 2.5 H* 05/08/21 10:33: PT 56.3 H, INR 6.5 H*, APTT 57.5 H 05/08/21 15:22: POC Glucose 426 H 05/08/21 21:07: POC Glucose > 500 H* 05/08/21 22:43: POC Glucose > 500 H* 05/08/21 23:30: Sodium 134 L, Potassium 4.7, Chloride 104, Carbon Dioxide 21.0, Anion Gap 9, BUN 76 H, Creatinine 2.35 H, Estim Creat Clear Calc 33.02, Est GFR (MDRD) Af Amer 36 L, Est GFR (MDRD) Non-Af 29 L, BUN/Creatinine Ratio 32.3 H, Glucose 499 H*, Calcium 8.6, Phosphorus 3.3, Magnesium 3.4 H, Troponin I High Sens 1776 H* 05/08/21 23:30: Acetone Level NEGATIVE 05/08/21 23:30: Serum Osmolality 339 H 05/09/21 00:41: POC Glucose 417 H 05/09/21 01:50: Sodium 137, Potassium 4.6, Chloride 109 H, Carbon Dioxide 20.0 L , Anion Gap 8, BUN 73 H, Creatinine 2.21 H, Estim Creat Clear Calc 35.11, Est GFR (MDRD) Af Amer 38 L, Est GFR (MDRD) Non-Af 32 L, BUN/Creatinine Ratio 33.0 H , Glucose 330 H, Calcium 9.0, Troponin I High Sens 1886 H* 05/09/21 01:54: POC Glucose 307 H 05/09/21 02:44: POC Glucose 282 H 05/09/21 04:09: POC Glucose 254 H 05/09/21 05:24: POC Glucose 233 H Micro: Microbiology 05/08/21 10:29 Nasal Secretion SARS-CoV-2 Antigen (Rapid) - Final SARS-CoV-2 (COVID 19) Radiography Diagnostic Testing: Radiology Impression Chest X-Ray 05/08/21 10:45 IMPRESSION: Patchy bilateral alveolar infiltrates worse in the right hemithorax suggestive of bilateral pneumonias. Electronically Signed: Delfin Baker MD at 11:12 EDT , Service support , Physical Exam Narrative GENERAL: cooperative but dyspneic at rest HEENT: Atraumatic; EYES; Anicteric, Normal Conjunctiva NECK; supple, normal thyroid, RESPIRATORY: Diminished to auscultation CARDIOVASCULAR: Regular S1 S2, GI: soft, normoactive bowel sounds, : No Renal angle tenderness; EXTREMITIES: No edema, no clubbing, MUSCULOSKELETAL: no muscle waisting NEURO: Awake; no lateralizing signs. SKIN: No Rash PSYCH; Flat affect Assessment & Plan Assessment/Plan (1) COVID-19: (2) Acute hypoxemic respiratory failure: (3) Supratherapeutic INR: (4) PROSPER (acute kidney injury): PLAN: Patient is a 70-year-old gentleman presented with shortness of breath 1. Acute hypoxic respiratory failure secondary to SARS-CoV-2 pneumonia ?Chest x-ray obtained on admission demonstrated Patchy bilateral alveolar infiltrates worse in the right hemithorax suggestive of bilateral pneumonias. Patient admitted to the intensive care unit placed on supplemental oxygen titrated to keep saturation greater than 90. As part of his management patient was placed on Decadron consult placed to both ID and pulmonary medicine. Patient was started on both remdesivir as well as baricitinib disease -05/09/2021; remains in ICU on high flow oxygen 2. Acute kidney injury ?Superimposed on chronic kidney disease stage III. Patient baseline creatinine 1.6 to creatinine on admission 2.38. Do suspect dehydration from decreased oral intake as a result of above, as well as patient being on diuretics. Suspected offending medications discontinued patient started on IV fluids with consultation placed to nephrology -05/09/2021; creatinine down to 1.83 3. Elevated troponin ?Consistent with acute non-STEMI type II -Probably as a result of SARS-CoV-2 pneumonia consult placed to cardiology 4. Diabetes mellitus type II -patient's oral hypoglycemics held. Placed on long acting insulin, Accu-Cheks a.c. and at bedtime and covered with sliding scale insulin 5. Hypertension - Blood pressure controlled, home medications continued with dose adjustment as needed 6. History of previous DVT ?Patient is on systemic anticoagulation with Coumadin. INR was markedly el evated on admission. Patient currently does not require vitamin K or FFP. Coumadin held daily monitoring with INR ordered -05/09/2021; INR up to 8.8. An order was given for patient to receive 5 mg of p.o. vitamin K with daily monitoring of INR ordered 7. Obesity with BMI of 38.5 ?Weight loss advised 8. DVT prophylaxis ?Patient already on systemic anticoagulation with Coumadin Charges/Coding Visit Charges Inpatient E&M: 60029 Subs Hosp L3
[2021-05-09 07:59] LABS: Differential Indicated MANUAL DIFF
[2021-05-09 08:01] LABS: Bedside Glucose 275 mg/dL (70-110)
[2021-05-09 08:02] LABS: D-Dimer Quantitative (DVT/PE) 0.44 FEU/ug/m (0.27-0.49)
[2021-05-09 08:11] LABS: International Normalized Ratio 8.8; Prothrombin Time (Protime)PT. 71.8 SECONDS (11.7-14.9)
[2021-05-09 08:28] LABS: Neutrophil-Segmented 90 % (47-70); Total Cells Counted 100 (MANUAL DIFF)
[2021-05-09 08:29] LABS: Lymphocyte 2 % (19-41); Metamyelocyte 1 % (0-1); Monocyte 7 % (0-10); Platelet Estimate ADEQUATE (ADEQ); Red Cell Morphology NORM C+C NORMAL (NORM C&C)
[2021-05-09 08:30] LABS: Absolute Neutrophil Count 13.6 X10^3/uL (2.0-7.7); Neutrophil # 13.56 X10^3/uL (2.7-7.7)
[2021-05-09 08:32] LABS: ALB/GLOB Ratio 0.5 RATIO (0.9-2.4); AST(SGOT) 52 U/L (15-37); Alanine Aminotransfer ALT/SGPT 53 U/L (16-61); Albumin, Serum 2.2 g/dL (3.2-5.0); Alkaline Phosphatase 49 U/L (45-117); Anion Gap 6 (5-15); BUN 72 mg/dL (7-18); BUN/Creat Ratio 39.3 RATIO (10-20); Calcium,Total 8.5 mg/dL (8.5-10.1); Chloride 111 mmol/L (98-107); Creatinine, Serum 1.83 mg/dL (0.70-1.30); EST Glomerular Filtration Rate 39 mL/min (>60); Est Glom Filt Rate - Afr Amer 48 mL/min (>60); Ferritin 2261 ng/mL (26-388); Globulin 4.2 g/dL (2.2-4.2); Glucose 258 mg/dL (74-106); Magnesium 3.2 mg/dL (1.6-2.6); Potassium 4.2 mmol/L (3.5-5.1); Protein, Total 6.4 g/dL (6.4-8.2); Sodium Level 139 mmol/L (136-145); Troponin-I HS 1852 pg/mL (3.0-78.0)
[2021-05-09 08:50] LABS: Procalcitonin 0.19 ng/mL (0.00-0.09)
[2021-05-09 09:01] LABS: Hemoglobin A1c 8.4 % (3.8-5.6)
[2021-05-09 09:16] LABS: Bedside Glucose 256 mg/dL (70-110)
[2021-05-09] MEDS: Phytonadione (Vit K1) 5 MG TABLET PO (11:05)
[2021-05-09] MEDS: Aspirin 81 MG TAB.CHEW PO (11:05)
[2021-05-09] MEDS: hydrALAZINE 25 MG Tablet PO (11:05)
[2021-05-09] MEDS: Atenolol 50 MG Tablet PO (11:05)
[2021-05-09] MEDS: dexAMETHasone 10 MG/ML Vial 6 MG IV (11:06)
[2021-05-09] MEDS: Insulin Lispro 100 UNIT/ML INSULN.PEN 10 UNIT SC (11:08)
[2021-05-09 11:26] LABS: Bedside Glucose 290 mg/dL (70-110)
--- NOTE | 2021-05-09 11:48 | PN.CC_ITS ---
Assessment & Plan Assessment/Plan (1) COVID-19: (2) Supratherapeutic INR: (3) Acute hypoxemic respiratory failure: (4) PROSPER (acute kidney injury): PLAN: RECOMMENDATIONS: 1. Wean oxygen to maintain saturations at or above 90%. 2. Continue remdesivir to complete 5-day treatment course. Continue to monitor liver and renal function. 3. Continue Decadron to complete 10-day treatment course. 4. Continue baricitinib therapy per ID recommendations. 5. Continue insulin per DKA protocol. 6. Awake prone positioning is encouraged. IMPRESSIONS: 1. Acute hypoxemic respiratory failure secondary to COVID-19 pneumonia The patient presented to the hospital with approximately 6 days of worsening dyspnea, cough and hypoxemia. He subsequently tested positive for coronavirus. Plan to continue supplemental oxygen to maintain saturations at or above 90%. Plan to continue current supportive therapies including remdesivir, Decadron and baricitinib. 2. Acute on chronic kidney disease Improving. Likely prerenal in etiology. Nephrology is following. Continue current supportive measures. 3. Troponin elevation Likely secondary to demand ischemia in the setting of #1. Consultation placed to cardiology. 4. Diabetes mellitus with DKA likely Continue insulin infusion per DKA protocol. 5. History of DVT/coagulopathy Given supratherapeutic INR, continue to hold Coumadin. No indication for emergent reversal. This note was generated with [employer] dictation software. It may contain incorrect words, spelling, and punctuation that were not noted in checking the note before signing. Subjective Subjective The patient was seen and examined at the bedside this morning. Events from the last 24 hours have been reviewed. The patient is currently afebrile, hemodynamically stable and maintaining appropriate oxygen saturations on Airvo heated high flow with an FiO2 requirement of 73% and flow rate of 60 L/min. The patient is currently documented to be overall net +2.5 L for the hospital admission. White count is elevated to 15,000. INR remains supratherapeutic at 8.8. Creatinine has improved to 1.83. The patient is now on remdesivir, Decadron and baricitinib. Objective Data Objective Data The patient's most recent lab work, culture data and imaging studies have all been personally reviewed. Rapid coronavirus antigen testing was positive on May 08. Vital Signs: Vital Signs Temp Pulse Resp BP Pulse Ox 93.1 F L 59 L 17 144/88 H 17 05/09/21 07:00 05/09/21 11:05 05/09/21 08:00 05/09/21 11:05 05/09/21 08:00 Oxygen Flow Rate (L/min) 60 Oxygen Delivery Method Airvo Weight: 127.7 kg Body Mass Index (BMI) 38.7 Intake & Output: Intake and Output for Last 24 Hours 05/07/21 05/08/21 05/09/21 23:59 23:59 23:59 Intake Total 2475 / 2475 1868.84 / 1868.84 Output Total 1465 / 1465 400 / 400 Balance 1010 / 1010 1468.84 / 1468.84 Lab / Micro Data Attestation: I reviewed the patient's lab results. Result Diagrams: 05/10/21 04:50 05/10/21 04:50 Labs: Laboratory Results - last 24 hr 05/08/21 10:33: PT 56.3 H, INR 6.5 H*, APTT 57.5 H 05/08/21 15:22: POC Glucose 426 H 05/08/21 21:07: POC Glucose > 500 H* 05/08/21 22:43: POC Glucose > 500 H* 05/08/21 23:30: Sodium 134 L, Potassium 4.7, Chloride 104, Carbon Dioxide 21.0, Anion Gap 9, BUN 76 H, Creatinine 2.35 H, Estim Creat Clear Calc 33.02, Est GFR (MDRD) Af Amer 36 L, Est GFR (MDRD) Non-Af 29 L, BUN/Creatinine Ratio 32.3 H, Glucose 499 H*, Calcium 8.6, Phosphorus 3.3, Magnesium 3.4 H, Troponin I High Sens 1776 H* 05/08/21 23:30: Acetone Level NEGATIVE 05/08/21 23:30: Serum Osmolality 339 H 05/09/21 00:41: POC Glucose 417 H 05/09/21 01:50: Sodium 137, Potassium 4.6, Chloride 109 H, Carbon Dioxide 20.0 L , Anion Gap 8, BUN 73 H, Creatinine 2.21 H, Estim Creat Clear Calc 35.11, Est GFR (MDRD) Af Amer 38 L, Est GFR (MDRD) Non-Af 32 L, BUN/Creatinine Ratio 33.0 H , Glucose 330 H, Calcium 9.0, Troponin I High Sens 1886 H* 05/09/21 01:54: POC Glucose 307 H 05/09/21 02:44: POC Glucose 282 H 05/09/21 04:09: POC Glucose 254 H 05/09/21 05:24: POC Glucose 233 H 05/09/21 07:24: WBC 15.1 H, RBC 4.80, Hgb 14.8, Hct 44.6, MCV 92.9, MCH 30.8, MCHC 33.2, RDW Std Deviation 49.0 H, RDW Coeff of Geovanna 14.2, Plt Count 317, MPV 9.5, Neut % (Auto) Not Reportable, Absolute Neuts (auto) 13.6 H, Absolute Lymphs (auto) 0.30 L, Total Counted 100, Neutrophils % (Manual) 90 H, Lymphocytes % (Manual) 2 L, Monocytes % (Manual) 7, Metamyelocytes % 1, Platelet Estimate ADEQUATE, RBC Morphology NORM C+C 05/09/21 07:24: Sodium 139, Potassium 4.2, Chloride 111 H, Carbon Dioxide 22.0, Anion Gap 6, BUN 72 H, Creatinine 1.83 H, Estim Creat Clear Calc 42.40, Est GFR (MDRD) Af Amer 48 L, Est GFR (MDRD) Non-Af 39 L, BUN/Creatinine Ratio 39.3 H, Glucose 258 H, Calcium 8.5, Phosphorus 3.0, Magnesium 3.2 H, Ferritin 2261 H, Total Bilirubin 0.50, AST 52 H, ALT 53, Alkaline Phosphatase 49, Troponin I High Sens 1852 H*, C-React Prot Ext Range 60.80 H, Total Protein 6.4, Albumin 2.2 L, Globulin 4.2, Albumin/Globulin Ratio 0.5 L 05/09/21 07:24: PT 71.8 H, INR 8.8 H*, D-Dimer Quant (PE/DVT) 0.44 05/09/21 07:24: Procalcitonin 0.19 H 05/09/21 07:24: Hemoglobin A1c 8.4 H 05/09/21 07:36: POC Glucose 275 H 05/09/21 09:04: POC Glucose 256 H 05/09/21 10:57: POC Glucose 290 H Micro: Microbiology 05/08/21 10:29 Nasal Secretion SARS-CoV-2 Antigen (Rapid) - Final SARS-CoV-2 (COVID 19) Physical Exam Const alert and no apparent distress Constitutional Narrative: Sitting in bedside recliner with Airvo in place. General Appearance: cooperative Nutritional Appearance: morbidly obese HEENT normocephalic, head/scalp atraumatic and moist oral mucous membranes Eyes PERRL, EOMs intact bilaterally and conjunctivae normal Neck supple General: trachea midline Chest inspection of chest normal Resp Auscultation: diminished lung sounds; Negative for rales, rhonchi or wheezes Cardio regular rate and regular rhythm GI normal to inspection, nondistended, normoactive bowel sounds Extremity no clubbing, cyanosis or edema Skin no rashes or lesions noted Neuro CN's II-XII intact bilaterally, moves all extremities and no focal motor deficits Psych cooperative and affect normal Charges/Coding Visit Charges Inpatient E&M: 76797 Subs Hosp L3
--- NOTE | 2021-05-09 12:00 | CASEMGMT ---
RN RADU Face to Face with patient for initial transition planning/care coordination assessment. RN CM introduced self and role at [facility]. Patient sitting in chair, alert and oriented. Patient willing to participate in assessment and is able to answer all questions appropriately. Care providers, pharmacy, and demographics verified. Patient wishes to discharge home, will monitor for HHC and home oxygen. Patient states he has no further needs or concerns at this time. CM to follow for discharge planning needs that may arise. PCP: Romero Specialists: none Preferred Pharmacy: [facility] Insurance: Whitney M[employer]OV[employer] Prescription Benefit: yes Living Will/HPOA: none LNOK: Living Arrangements: Patient lives with in a single story home with no steps to enter. patient states he is independent at home. Transportation: self/ DME/HHC: Patient states he has shower chair and walker at home. No preferences for DME. No previous HHC Disposition Plan: Patient to discharge home with family support and follow-up plans in place. Will monitor for need for HHC and home oxygen. Charity ELLIS, RN, CM
[2021-05-09] MEDS: Enoxaparin 40 MG/0.4 ML Syringe SC ×2 (14:26→21:56)
--- NOTE | 2021-05-09 14:51 | PN.RENAL_ITS ---
Documented by User: KAY Eid 05/09/21 15:06 Subjective Subjective No overnight events Objective Data Objective Data Vital Signs: Vital Signs Temp Pulse Resp BP Pulse Ox 93.1 F L 59 L 17 144/88 H 90 05/09/21 07:00 05/09/21 11:05 05/09/21 08:00 05/09/21 11:05 05/09/21 13:50 Oxygen Flow Rate (L/min) 60 Oxygen Delivery Method Airvo Weight: 127.7 kg Body Mass Index (BMI) 38.7 Intake & Output: Intake and Output for Last 24 Hours 05/07/21 05/08/21 05/09/21 23:59 23:59 23:59 Intake Total 2475 / 2475 1868.84 / 1868.84 Output Total 1465 / 1465 400 / 400 Balance 1010 / 1010 1468.84 / 1468.84 Lab / Micro Data Result Diagrams: 05/09/21 07:24 05/09/21 07:24 Labs: Laboratory Results - last 24 hr 05/08/21 15:22: POC Glucose 426 H 05/08/21 21:07: POC Glucose > 500 H* 05/08/21 22:43: POC Glucose > 500 H* 05/08/21 23:30: Sodium 134 L, Potassium 4.7, Chloride 104, Carbon Dioxide 21.0, Anion Gap 9, BUN 76 H, Creatinine 2.35 H, Estim Creat Clear Calc 33.02, Est GFR (MDRD) Af Amer 36 L, Est GFR (MDRD) Non-Af 29 L, BUN/Creatinine Ratio 32.3 H, Glucose 499 H*, Calcium 8.6, Phosphorus 3.3, Magnesium 3.4 H, Troponin I High Sens 1776 H* 05/08/21 23:30: Acetone Level NEGATIVE 05/08/21 23:30: Serum Osmolality 339 H 05/09/21 00:41: POC Glucose 417 H 05/09/21 01:50: Sodium 137, Potassium 4.6, Chloride 109 H, Carbon Dioxide 20.0 L , Anion Gap 8, BUN 73 H, Creatinine 2.21 H, Estim Creat Clear Calc 35.11, Est GFR (MDRD) Af Amer 38 L, Est GFR (MDRD) Non-Af 32 L, BUN/Creatinine Ratio 33.0 H , Glucose 330 H, Calcium 9.0, Troponin I High Sens 1886 H* 05/09/21 01:54: POC Glucose 307 H 05/09/21 02:44: POC Glucose 282 H 05/09/21 04:09: POC Glucose 254 H 05/09/21 05:24: POC Glucose 233 H 05/09/21 07:24: WBC 15.1 H, RBC 4.80, Hgb 14.8, Hct 44.6, MCV 92.9, MCH 30.8, MCHC 33.2, RDW Std Deviation 49.0 H, RDW Coeff of Geovanna 14.2, Plt Count 317, MPV 9.5, Neut % (Auto) Not Reportable, Absolute Neuts (auto) 13.6 H, Absolute Lymphs (auto) 0.30 L, Total Counted 100, Neutrophils % (Manual) 90 H, Lymphocytes % (Manual) 2 L, Monocytes % (Manual) 7, Metamyelocytes % 1, Platelet Estimate ADEQUATE, RBC Morphology NORM C+C 05/09/21 07:24: Sodium 139, Potassium 4.2, Chloride 111 H, Carbon Dioxide 22.0, Anion Gap 6, BUN 72 H, Creatinine 1.83 H, Estim Creat Clear Calc 42.40, Est GFR (MDRD) Af Amer 48 L, Est GFR (MDRD) Non-Af 39 L, BUN/Creatinine Ratio 39.3 H, Glucose 258 H, Calcium 8.5, Phosphorus 3.0, Magnesium 3.2 H, Ferritin 2261 H, Total Bilirubin 0.50, AST 52 H, ALT 53, Alkaline Phosphatase 49, Troponin I High Sens 1852 H*, C-React Prot Ext Range 60.80 H, Total Protein 6.4, Albumin 2.2 L, Globulin 4.2, Albumin/Globulin Ratio 0.5 L 05/09/21 07:24: PT 71.8 H, INR 8.8 H*, D-Dimer Quant (PE/DVT) 0.44 05/09/21 07:24: Procalcitonin 0.19 H 05/09/21 07:24: Hemoglobin A1c 8.4 H 05/09/21 07:36: POC Glucose 275 H 05/09/21 09:04: POC Glucose 256 H 05/09/21 10:57: POC Glucose 290 H Micro: Microbiology 05/08/21 10:29 Nasal Secretion SARS-CoV-2 Antigen (Rapid) - Final SARS-CoV-2 (COVID 19) Physical Exam Narrative Patient not directly examined, seen from outside ICU room. Assessment & Plan Assessment/Plan (1) COVID-19: (2) Acute hypoxemic respiratory failure: (3) PROSPER (acute kidney injury): (4) Supratherapeutic INR: PLAN: Nonoliguric PROSPER superimposed on CKD stage III, likely PROSPER is prerenal. Elevated creatinine since 2015. Baseline creatinine ranging 1.6 to 1.9 mg/dL. Creatinine on admission 2.38 mg/dL--> today improved 1.83mg/dL. Off lasix, aldactone and losartan. UA pending. Patient off IVF now. He is drinking fluids Recommend strict I/O. Patient does not have Jett (INR now 8.8). Recommend avoiding nephrotoxic agents. Blood pressures have been acceptable, on hydralazine and atenolol detectable troponin, cardiology consulted off insulin gtt ID following, patient on dexamethasone, remdesivir, Baricitinib. Blood cx pending. On high flow O2 Documented by User: Dr. Megan Shankar MD 05/09/21 18:48 Objective Data Lab / Micro Data Result Diagrams: 05/09/21 07:24 05/09/21 07:24 Assessment & Plan Assessment/Plan (1) PROSPER (acute kidney injury): PLAN: The patient is seen and examined independently. Above ADVANCED PRACTICE NURSE's note reflects my evaluation and management plan. PROSPER appears to be prerenal with improvement after holding ARB and rehydrating the patient. Continue to hold ARB and encourage oral intake. He is now off of IV fluid. There is no need for kidney replacement therapy today. Recheck renal function again tomorrow..
[2021-05-09] MEDS: Insulin Lispro 100 UNIT/ML INSULN.PEN SC ×2 (16:25→21:55)
[2021-05-09 16:35] LABS: Bedside Glucose 323 mg/dL (70-110)
--- NOTE | 2021-05-09 21:20 | NURSING ---
emergency documentation in place
[2021-05-09] MEDS: hydrALAZINE 50 MG Tablet PO (21:55)
[2021-05-09 22:20] LABS: Bedside Glucose 372 mg/dL (70-110)
[2021-05-09 22:46] LABS: Color, Urine Yellow (Yellow); Glucose, Dipstick 1000 mg/dl (Normal); Ketone-Dipstick Negative (Negative); Leukocyte Esterase-Dipstick Negative /ul (Negative); Nitrite-Dipstick Negative (Negative); Occult Blood-Urine Negative /ul (Negative); Protein-Dipstick Negative (Negative); Urine Bilirubin Dipstick Negative (Negative); Urine Clarity Clear (Clear); Urine Urobilinogen Normal (Normal)
[2021-05-10] VITALS (35 sets, daily range): BP systolic 122–159; BP diastolic 70–92; PULSE 55–68; RESP 17–29; TEMP 36.2–36.9; O2SAT 85–98
[2021-05-10 05:13] LABS: Hematocrit 44.5 % (40-54); Hemoglobin 14.7 g/dL (13.0-16.5); Mean Corpuscular Hgb 30.7 pg (27.0-32.0); Mean Corpuscular Volume 92.9 fL (80-94); Mean Platelet Vol. 9.4 fl (6.2-12.0); POSITIVE COUNT YES; POSITIVE MORPHOLOGY YES; Platelet Count 321 K/mm3 (150-450); RBC Distribution Width SD 47.9 fl (35.1-43.9); Red Blood Count 4.79 M/mm3 (4.6-6.2); White Blood Count 15.8 K/mm3 (4.4-11.0)
[2021-05-10 05:29] LABS: Differential Indicated MANUAL DIFF
[2021-05-10 05:31] LABS: ALB/GLOB Ratio 0.5 RATIO (0.9-2.4); AST(SGOT) 46 U/L (15-37); Alanine Aminotransfer ALT/SGPT 51 U/L (16-61); Albumin, Serum 2.2 g/dL (3.2-5.0); Alkaline Phosphatase 54 U/L (45-117); Anion Gap 8 (5-15); BUN 60 mg/dL (7-18); BUN/Creat Ratio 38.2 RATIO (10-20); Calcium,Total 8.3 mg/dL (8.5-10.1); Chloride 111 mmol/L (98-107); Creatinine, Serum 1.57 mg/dL (0.70-1.30); EST Glomerular Filtration Rate 47 mL/min (>60); Est Glom Filt Rate - Afr Amer 57 mL/min (>60); Estimated Creatinine Clearance 50.89 ml/min; Globulin 4.2 g/dL (2.2-4.2); Glucose 235 mg/dL (74-106); Potassium 4.3 mmol/L (3.5-5.1); Protein, Total 6.4 g/dL (6.4-8.2); Sodium Level 139 mmol/L (136-145)
[2021-05-10 05:46] LABS: Lymphocyte 3 % (19-41); Metamyelocyte 1 % (0-1); Monocyte 7 % (0-10); Myelocyte 1 % (0-0); Neutrophil-Band 2 % (0-5); Neutrophil-Segmented 85 % (47-70); Other WBC Type 1 %; Total Cells Counted 100 (MANUAL DIFF)
[2021-05-10 05:48] LABS: Absolute Lymphocyte Count 0.47 X10^3/uL (0.83-4.51); Lymphocyte # 0.47 X10^3/ul (0.83-4.51)
[2021-05-10 05:49] LABS: Differential Comment SCANNED; Platelet Estimate ADEQUATE (ADEQ); Red Cell Morphology NORM C+C NORMAL (NORM C&C)
--- NOTE | 2021-05-10 07:28 | PN.HOSP_ITS ---
Subjective Subjective Patient seen still requiring high flow oxygen. Kidney function continues to improve Objective Data Objective Data Vital Signs: Vital Signs Temp Pulse Resp BP Pulse Ox 98.4 F 61 23 H 147/73 H 92 05/10/21 05:00 05/10/21 07:00 05/10/21 07:00 05/10/21 07:00 05/10/21 07:00 Oxygen Flow Rate (L/min) 60 Oxygen Delivery Method Airvo Weight: 127.3 kg Body Mass Index (BMI) 38.7 Intake & Output: Intake and Output for Last 24 Hours 05/08/21 05/09/21 05/10/21 23:59 23:59 23:59 Intake Total 2475 / 2475 3235.51 / 3235.51 Output Total 1465 / 1465 1994 / 2295 1150 / 1150 Balance 1010 / 1010 1240.51 / 940.51 -1150 / -1150 Lab / Micro Data Result Diagrams: 05/10/21 04:50 05/10/21 04:50 Labs: Laboratory Results - last 24 hr 05/09/21 07:24: WBC 15.1 H, RBC 4.80, Hgb 14.8, Hct 44.6, MCV 92.9, MCH 30.8, MCHC 33.2, RDW Std Deviation 49.0 H, RDW Coeff of Geovanna 14.2, Plt Count 317, MPV 9.5, Neut % (Auto) Not Reportable, Absolute Neuts (auto) 13.6 H, Absolute Lymphs (auto) 0.30 L, Total Counted 100, Neutrophils % (Manual) 90 H, Lymphocytes % (Manual) 2 L, Monocytes % (Manual) 7, Metamyelocytes % 1, Diff Path Review December, Platelet Estimate ADEQUATE, RBC Morphology NORM C+C 05/09/21 07:24: Sodium 139, Potassium 4.2, Chloride 111 H, Carbon Dioxide 22.0, Anion Gap 6, BUN 72 H, Creatinine 1.83 H, Estim Creat Clear Calc 42.40, Est GFR (MDRD) Af Amer 48 L, Est GFR (MDRD) Non-Af 39 L, BUN/Creatinine Ratio 39.3 H, Glucose 258 H, Calcium 8.5, Phosphorus 3.0, Magnesium 3.2 H, Ferritin 2261 H, Total Bilirubin 0.50, AST 52 H, ALT 53, Alkaline Phosphatase 49, Troponin I High Sens 1852 H*, C-React Prot Ext Range 60.80 H, Total Protein 6.4, Albumin 2.2 L, Globulin 4.2, Albumin/Globulin Ratio 0.5 L 05/09/21 07:24: PT 71.8 H, INR 8.8 H*, D-Dimer Quant (PE/DVT) 0.44 05/09/21 07:24: Procalcitonin 0.19 H 05/09/21 07:24: Hemoglobin A1c 8.4 H 05/09/21 07:36: POC Glucose 275 H 05/09/21 09:04: POC Glucose 256 H 05/09/21 10:57: POC Glucose 290 H 05/09/21 16:22: POC Glucose 323 H 05/09/21 21:53: POC Glucose 372 H 05/09/21 22:27: Urine Color Yellow, Urine Clarity Clear, Urine pH 6.0, Ur Specific [place] 1.010, Urine Protein Negative, Urine Glucose (UA) 1000 H, Urine Ketones Negative, Urine Occult Blood Negative, Urine Nitrite Negative, Urine Bilirubin Negative, Urine Urobilinogen Normal, Ur Leukocyte Esterase Negative 05/10/21 04:50: WBC 15.8 H, RBC 4.79, Hgb 14.7, Hct 44.5, MCV 92.9, MCH 30.7, MCHC 33.0, RDW Std Deviation 47.9 H, RDW Coeff of Geovanna 14.0, Plt Count 321, MPV 9.4, Neut % (Auto) Not Reportable, Absolute Neuts (auto) 14.0 H, Absolute Lymphs (auto) 0.47 L, Total Counted 100, Neutrophils % (Manual) 85 H, Band Neutrophils % 2, Lymphocytes % (Manual) 3 L, Monocytes % (Manual) 7, Metamyelocytes % 1, Myelocytes % 1 H, Other Cells % 1, Differential Comment SCANNED, Diff Path Revi ew December clara, Platelet Estimate ADEQUATE, RBC Morphology NORM C+C 05/10/21 04:50: Sodium 139, Potassium 4.3, Chloride 111 H, Carbon Dioxide 20.0 L , Anion Gap 8, BUN 60 H, Creatinine 1.57 H, Estim Creat Clear Calc 50.89, Est GFR (MDRD) Af Amer 57 L, Est GFR (MDRD) Non-Af 47 L, BUN/Creatinine Ratio 38.2 H , Glucose 235 H, Calcium 8.3 L, Total Bilirubin 0.60, AST 46 H, ALT 51, Alkaline Phosphatase 54, Total Protein 6.4, Albumin 2.2 L, Globulin 4.2, Albumin/Globulin Ratio 0.5 L Micro: Microbiology 05/08/21 10:29 Nasal Secretion SARS-CoV-2 Antigen (Rapid) - Final SARS-CoV-2 (COVID 19) Physical Exam Narrative GENERAL: cooperative but dyspneic at rest HEENT: Atraumatic; EYES; Anicteric, Normal Conjunctiva NECK; supple, normal thyroid, RESPIRATORY: Diminished to auscultation CARDIOVASCULAR: Regular S1 S2, GI: soft, normoactive bowel sounds, : No Renal angle tenderness; EXTREMITIES: No edema, no clubbing, MUSCULOSKELETAL: no muscle waisting NEURO: Awake; no lateralizing signs. SKIN: No Rash PSYCH; Flat affect Assessment & Plan Assessment/Plan (1) COVID-19: (2) Acute hypoxemic respiratory failure: (3) Supratherapeutic INR: (4) PROSPER (acute kidney injury): PLAN: Patient is a 70-year-old gentleman presented with shortness of breath 1. Acute hypoxic respiratory failure secondary to SARS-CoV-2 pneumonia ?Chest x-ray obtained on admission demonstrated Patchy bilateral alveolar infiltrates worse in the right hemithorax suggestive of bilateral pneumonias. Patient admitted to the intensive care unit placed on supplemental oxygen titrated to keep saturation greater than 90. As part of his management patient was placed on Decadron consult placed to both ID and pulmonary medicine. Patient was started on both remdesivir as well as baricitinib disease -05/09/2021; remains in ICU on high flow oxygen ?05/10/2021; patient remains in ICU still requiring high flow oxygen 2. Acute kidney injury ?Superimposed on chronic kidney disease stage III. Patient baseline creatinine 1.6 to creatinine on admission 2.38. Do suspect dehydration from decreased oral intake as a result of above, as well as patient being on diuretics. Suspected offending medications discontinued patient started on IV fluids with consult ation placed to nephrology -05/09/2021; creatinine down to 1.83 ?05/10/2021; patient kidney function continues to improve his IV fluid discontinued the day prior 3. Elevated troponin ?Consistent with acute non-STEMI type II -Probably as a result of SARS-CoV-2 pneumonia consult placed to cardiology 4. Diabetes mellitus type II -patient's oral hypoglycemics held. Placed on long acting insulin, Accu-Cheks a.c. and at bedtime and covered with sliding scale insulin 5. Hypertension - Blood pressure controlled, home medications continued with dose adjustment as needed 6. History of previous DVT ?Patient is on systemic anticoagulation with Coumadin. INR was markedly elevated on admission. Patient currently does not require vitamin K or FFP. Coumadin held daily monitoring with INR ordered -05/09/2021; INR up to 8.8. An order was given for patient to receive 5 mg of p.o. vitamin K with daily monitoring of INR ordered ?05/10/2021; INR down to 4.2 7. Obesity with BMI of 38.5 ?Weight loss advised 8. DVT prophylaxis ?Patient already on systemic anticoagulation with Coumadin Charges/Coding Visit Charges Inpatient E&M: 39673 [facility] L[facility]
[2021-05-10] MEDS: Insulin Lispro 100 UNIT/ML INSULN.PEN SC ×4 (08:23→21:26)
[2021-05-10 08:52] LABS: Prothrombin Time (Protime)PT. 39.4 SECONDS (11.7-14.9)
[2021-05-10 08:56] LABS: International Normalized Ratio 4.2
[2021-05-10] MEDS: dexAMETHasone 10 MG/ML Vial 6 MG IV (08:59)
[2021-05-10] MEDS: Enoxaparin 40 MG/0.4 ML Syringe SC ×2 (08:59→21:27)
[2021-05-10] MEDS: 0.9% Saline Lock 10 ML Syringe IV (09:00)
[2021-05-10] MEDS: Acetaminophen 325 MG Tablet 650 MG PO ×2 (09:01→21:28)
[2021-05-10] MEDS: hydrALAZINE 25 MG Tablet PO ×3 (09:02→21:28)
[2021-05-10] MEDS: Aspirin 81 MG TAB.CHEW PO (09:02)
[2021-05-10] MEDS: Atenolol 50 MG Tablet PO ×2 (09:03→21:27)
--- NOTE | 2021-05-10 10:20 | PN.CC_ITS ---
Assessment & Plan Assessment/Plan (1) COVID-19: (2) Supratherapeutic INR: (3) Acute hypoxemic respiratory failure: (4) PROSPER (acute kidney injury): PLAN: RECOMMENDATIONS: 1. Wean oxygen to maintain saturations at or above 90%. 2. Continue remdesivir to complete 5-day treatment course. Continue to monitor liver and renal function. 3. Continue Decadron to complete 10-day treatment course. 4. Continue baricitinib therapy per ID recommendations. 5. Continue to hold Coumadin. Check INR daily. 6. Awake prone positioning is encouraged. 7. Continue Lantus and sliding scale insulin coverage. IMPRESSIONS: 1. Acute hypoxemic respiratory failure secondary to COVID-19 pneumonia The patient presented to the hospital with approximately 6 days of worsening dyspnea, cough and hypoxemia. He subsequently tested positive for coronavirus. Plan to continue heated high flow oxygen to maintain saturations at or above 90%. Plan to continue current supportive therapies including remdesivir, Decadron and baricitinib. 2. Acute on chronic kidney disease Improving. Likely prerenal in etiology. Nephrology is following. Continue current supportive measures. 3. Troponin elevation Likely secondary to demand ischemia in the setting of #1. Consultation placed to cardiology. 4. History of DVT/coagulopathy Given supratherapeutic INR, continue to hold Coumadin. No indication for emergent reversal. This note was generated with [employer] dictation software. It may contain incorrect words, spelling, and punctuation that were not noted in checking the note before signing. Subjective Subjective The patient was seen and examined at the bedside this morning. Events from the last 24 hours have been reviewed. The patient is currently afebrile, hemodynamically stable and maintaining appropriate oxygen saturations on Airvo heated high flow with an FiO2 requirement of 93% and flow rate of 60 L/min. The patient does desaturate with even minimal amounts of physical exertion. He is currently documented to be overall net +1.3 L for the hospital admission. The patient remains on remdesivir, Decadron, baricitinib and Lovenox twice daily. Objective Data Objective Data The patient's most recent lab work, culture data and imaging studies have all been personally reviewed. Rapid coronavirus antigen testing was positive on May 08. Vital Signs: Vital Signs Temp Pulse Resp BP Pulse Ox 98.4 F 60 22 H 145/75 H 94 05/10/21 05:00 05/10/21 09:28 05/10/21 09:28 05/10/21 09:02 05/10/21 09:28 Oxygen Flow Rate (L/min) 60 Oxygen Delivery Method Airvo Weight: 127.3 kg Body Mass Index (BMI) 38.7 Intake & Output: Intake and Output for Last 24 Hours 05/08/21 05/09/21 05/10/21 23:59 23:59 23:59 Intake Total 2475 / 2475 3235.51 / 3235.51 0 / 0 Output Total 1465 / 1465 1994 / 2294 1150 / 1150 Balance 1010 / 1010 1240.51 / 940.51 -1150 / -1150 Lab / Micro Data Attestation: I reviewed the patient's lab results. Result Diagrams: 05/10/21 04:50 05/10/21 04:50 Labs: Laboratory Results - last 24 hr 05/09/21 07:24: Diff Path Review December05/09/21 10:57: POC Glucose 290 H 05/09/21 16:22: POC Glucose 323 H 05/09/21 21:53: POC Glucose 372 H 05/09/21 22:27: Urine Color Yellow, Urine Clarity Clear, Urine pH 6.0, Ur Specific [place] 1.010, Urine Protein Negative, Urine Glucose (UA) 1000 H, Urine Ketones Negative, Urine Occult Blood Negative, Urine Nitrite Negative, Urine Bilirubin Negative, Urine Urobilinogen Normal, Ur Leukocyte Esterase Negative 05/10/21 04:50: WBC 15.8 H, RBC 4.79, Hgb 14.7, Hct 44.5, MCV 92.9, MCH 30.7, MCHC 33.0, RDW Std Deviation 47.9 H, RDW Coeff of Geovanna 14.0, Plt Count 321, MPV 9.4, Neut % (Auto) Not Reportable, Absolute Neuts (auto) 14.0 H, Absolute Lymphs (auto) 0.47 L, Total Counted 100, Neutrophils % (Manual) 85 H, Band Neutrophils % 2, Lymphocytes % (Manual) 3 L, Monocytes % (Manual) 7, Metamyelocytes % 1, Myelocytes % 1 H, Other Cells % 1, Differential Comment SCANNED, Diff Path Review December, Platelet Estimate ADEQUATE, RBC Morphology NORM C+C 05/10/21 04:50: Sodium 139, Potassium 4.3, Chloride 111 H, Carbon Dioxide 20.0 L , Anion Gap 8, BUN 60 H, Creatinine 1.57 H, Estim Creat Clear Calc 50.89, Est GFR (MDRD) Af Amer 57 L, Est GFR (MDRD) Non-Af 47 L, BUN/Creatinine Ratio 38.2 H , Glucose 235 H, Calcium 8.3 L, Total Bilirubin 0.60, AST 46 H, ALT 51, Alkaline Phosphatase 54, Total Protein 6.4, Albumin 2.2 L, Globulin 4.2, Albumin/Globulin Ratio 0.5 L 05/10/21 08:00: PT 39.4 H, INR 4.2 H* Micro: Microbiology 05/08/21 10:29 Nasal Secretion SARS-CoV-2 Antigen (Rapid) - Final SARS-CoV-2 (COVID 19) Physical Exam Const alert and no apparent distress Constitutional Narrative: Sitting in bedside recliner with Airvo in place. General Appearance: cooperative Nutritional Appearance: morbidly obese HEENT normocephalic, head/scalp atraumatic and moist oral mucous membranes Eyes PERRL, EOMs intact bilaterally and conjunctivae normal Neck supple General: trachea midline Chest inspection of chest normal Resp Auscultation: diminished lung sounds; Negative for rales, rhonchi or wheezes Cardio regular rate and regular rhythm GI normal to inspection, nondistended, normoactive bowel sounds Extremity no clubbing, cyanosis or edema Skin no rashes or lesions noted Neuro CN's II-XII intact bilaterally, moves all extremities and no focal motor deficits Psych cooperative and affect normal Charges/Coding Visit Charges Inpatient E&M: 20819 Subs Hosp L3
[2021-05-10 10:50] LABS: Bedside Glucose 285 mg/dL (70-110)
[2021-05-10 13:19] LABS: Pathologist Review Reviewed
--- NOTE | 2021-05-10 13:56 | PN.RENAL_ITS ---
Subjective Subjective Patient sitting in chair, no overnight events Objective Data Objective Data Vital Signs: Vital Signs Temp Pulse Resp BP Pulse Ox 98.4 F 63 22 H 138/70 H 94 05/10/21 05:00 05/10/21 11:31 05/10/21 11:31 05/10/21 10:55 05/10/21 11:31 Oxygen Flow Rate (L/min) 60 Oxygen Delivery Method Airvo Weight: 127.3 kg Body Mass Index (BMI) 38.7 Intake & Output: Intake and Output for Last 24 Hours 05/08/21 05/09/21 05/10/21 23:59 23:59 23:59 Intake Total 2475 / 2475 3235.51 / 3235.51 200 / 200 Output Total 1465 / 1465 1994 / 2295 1150 / 1150 Balance 1010 / 1010 1240.51 / 940.51 -950 / -950 Lab / Micro Data Result Diagrams: 05/10/21 04:50 05/10/21 04:50 Labs: Laboratory Results - last 24 hr 05/09/21 07:24: Diff Path Review Reviewed 05/09/21 16:22: POC Glucose 323 H 05/09/21 21:53: POC Glucose 372 H 05/09/21 22:27: Urine Color Yellow, Urine Clarity Clear, Urine pH 6.0, Ur Spec ific [place] 1.010, Urine Protein Negative, Urine Glucose (UA) 1000 H, Urine Ketones Negative, Urine Occult Blood Negative, Urine Nitrite Negative, Urine Bilirubin Negative, Urine Urobilinogen Normal, Ur Leukocyte Esterase Negative 05/10/21 04:50: WBC 15.8 H, RBC 4.79, Hgb 14.7, Hct 44.5, MCV 92.9, MCH 30.7, MCHC 33.0, RDW Std Deviation 47.9 H, RDW Coeff of Geovanna 14.0, Plt Count 321, MPV 9.4, Neut % (Auto) Not Reportable, Absolute Neuts (auto) 14.0 H, Absolute Lymphs (auto) 0.47 L, Total Counted 100, Neutrophils % (Manual) 85 H, Band Neutrophils % 2, Lymphocytes % (Manual) 3 L, Monocytes % (Manual) 7, Metamyelocytes % 1, Myelocytes % 1 H, Other Cells % 1, Differential Comment SCANNED, Diff Path Review May foll, Platelet Estimate ADEQUATE, RBC Morphology NORM C+C 05/10/21 04:50: Sodium 139, Potassium 4.3, Chloride 111 H, Carbon Dioxide 20.0 L , Anion Gap 8, BUN 60 H, Creatinine 1.57 H, Estim Creat Clear Calc 50.89, Est GFR (MDRD) Af Amer 57 L, Est GFR (MDRD) Non-Af 47 L, BUN/Creatinine Ratio 38.2 H , Glucose 235 H, Calcium 8.3 L, Total Bilirubin 0.60, AST 46 H, ALT 51, Alkaline Phosphatase 54, Total Protein 6.4, Albumin 2.2 L, Globulin 4.2, Albumin/Globulin Ratio 0.5 L 05/10/21 08:00: PT 39.4 H, INR 4.2 H* 05/10/21 10:39: POC Glucose 285 H Micro: Microbiology 05/08/21 10:29 Nasal Secretion SARS-CoV-2 Antigen (Rapid) - Final SARS-CoV-2 (COVID 19) Physical Exam Narrative Patient not directly examined, seen from outside ICU room. Assessment & Plan Assessment/Plan (1) COVID-19: (2) Acute hypoxemic respiratory failure: (3) PROSPER (acute kidney injury): (4) Supratherapeutic INR: PLAN: Nonoliguric PROSPER superimposed on CKD stage III, likely PROSPER is prerenal. Elevated creatinine since 2014. Baseline creatinine ranging 1.6 to 1.9 mg/dL. Creatinine on admission 2.38 mg/dL--> today improved to 1.57mg/dL. There is no acute indication for FACE HARDENER. Off lasix, aldactone and losartan. UA negative for protein, blood, leuk esterase Patient off IVF. He is drinking fluids. Continue strict I/O. Patient does need Jett (INR now 4 from 8.8). Recommend avoiding nephrotoxic agents. Blood pressures have been acceptable, on hydralazine and atenolol detectable troponin, cardiology consulted off insulin gtt ID following, patient on dexamethasone, remdesivir, Baricitinib. Blood cx pending. Still requiring high flow O2
[2021-05-10 17:05] LABS: Bedside Glucose 469 mg/dL (70-110)
[2021-05-10] MEDS: hydrALAZINE 50 MG Tablet PO (21:24)
[2021-05-10 21:55] LABS: Bedside Glucose 345 mg/dL (70-110)
[2021-05-11] VITALS (31 sets, daily range): BP systolic 113–159; BP diastolic 63–100; PULSE 52–64; RESP 9–31; TEMP 36.2–36.7; O2SAT 60–100
[2021-05-11] MEDS: Acetaminophen 325 MG Tablet 650 MG PO ×3 (04:32→18:12)
[2021-05-11 05:31] LABS: Hematocrit 43.8 % (40-54); Hemoglobin 14.6 g/dL (13.0-16.5); Mean Corp Hgb Conc 33.3 g/dL (32-36); Mean Corpuscular Hgb 31.2 pg (27.0-32.0); Mean Corpuscular Volume 93.6 fL (80-94); Mean Platelet Vol. 9.2 fl (6.2-12.0); POSITIVE COUNT YES; POSITIVE MORPHOLOGY YES; Platelet Count 314 K/mm3 (150-450); RBC Distribution Width SD 47.8 fl (35.1-43.9); Red Blood Count 4.68 M/mm3 (4.6-6.2); White Blood Count 12.9 K/mm3 (4.4-11.0)
[2021-05-11 05:57] LABS: ALB/GLOB Ratio 0.5 RATIO (0.9-2.4); AST(SGOT) 35 U/L (15-37); Alanine Aminotransfer ALT/SGPT 44 U/L (16-61); Albumin, Serum 2.1 g/dL (3.2-5.0); Alkaline Phosphatase 54 U/L (45-117); Anion Gap 7 (5-15); BUN 48 mg/dL (7-18); BUN/Creat Ratio 34.5 RATIO (10-20); Calcium,Total 8.4 mg/dL (8.5-10.1); Chloride 111 mmol/L (98-107); Creatinine, Serum 1.39 mg/dL (0.70-1.30); EST Glomerular Filtration Rate 54 mL/min (>60); Est Glom Filt Rate - Afr Amer 65 mL/min (>60); Estimated Creatinine Clearance 57.48 ml/min; Globulin 4.1 g/dL (2.2-4.2); Glucose 210 mg/dL (74-106); Potassium 3.9 mmol/L (3.5-5.1); Protein, Total 6.2 g/dL (6.4-8.2); Sodium Level 139 mmol/L (136-145)
[2021-05-11 06:06] LABS: International Normalized Ratio 3.9; Prothrombin Time (Protime)PT. 37.6 SECONDS (11.7-14.9)
[2021-05-11 06:31] LABS: Differential Indicated MANUAL DIFF
[2021-05-11 07:17] LABS: Lymphocyte 5 % (19-41); Metamyelocyte 2 % (0-1); Monocyte 1 % (0-10); Myelocyte 1 % (0-0); Neutrophil-Segmented 91 % (47-70); Platelet Estimate ADEQUATE (ADEQ); Red Cell Morphology NORM C+C NORMAL (NORM C&C); Total Cells Counted 100 (MANUAL DIFF)
[2021-05-11 07:18] LABS: Absolute Lymphocyte Count 0.64 X10^3/uL (0.83-4.51); Absolute Neutrophil Count 11.7 X10^3/uL (2.0-7.7); Lymphocyte # 0.64 X10^3/ul (0.83-4.51); Neutrophil # 11.72 X10^3/uL (2.7-7.7)
--- NOTE | 2021-05-11 07:27 | PN.HOSP_ITS ---
Subjective Subjective Patient seen appears clinically stable. Attempt to wean patient off airvo the day prior was unsuccessful. Objective Data Objective Data Vital Signs: Vital Signs Temp Pulse Resp BP Pulse Ox 98.1 F 55 L 24 H 159/90 H 60 05/11/21 00:00 05/11/21 06:00 05/11/21 06:00 05/11/21 06:00 05/11/21 06:00 Oxygen Flow Rate (L/min) 60 Oxygen Delivery Method Airvo Weight: 129.1 kg Body Mass Index (BMI) 38.7 Intake & Output: Intake and Output for Last 24 Hours 05/09/21 05/10/21 05/11/21 23:59 23:59 23:59 Intake Total 3235.51 / 3235.51 1520 / 1520 Output Total 1994 2725 / 2725 Balance 1240.51 / 940.51 -1205 / -1205 Lab / Micro Data Result Diagrams: 05/11/21 05:15 05/11/21 05:15 Labs: Laboratory Results - last 24 hr 05/09/21 07:24: Diff Path Review Reviewed 05/10/21 08:00: PT 39.4 H, INR 4.2 H* 05/10/21 10:39: POC Glucose 285 H 05/10/21 16:58: POC Glucose 469 H* 05/10/21 21:25: POC Glucose 345 H 05/11/21 05:15: WBC 12.9 H, RBC 4.68, Hgb 14.6, Hct 43.8, MCV 93.6, MCH 31.2, MCHC 33.3, RDW Std Deviation 47.8 H, RDW Coeff of Geovanna 14.0, Plt Count 314, MPV 9.2, Neut % (Auto) Not Reportable, Absolute Neuts (auto) 11.7 H, Absolute Lymphs (auto) 0.64 L, Total Counted 100, Neutrophils % (Manual) 91 H, Lymphocytes % (Manual) 5 L, Monocytes % (Manual) 1, Metamyelocytes % 2 H, Myelocytes % 1 H, Diff Path Review May foll, Platelet Estimate ADEQUATE, RBC Morphology NORM C+C 05/11/21 05:15: Sodium 139, Potassium 3.9, Chloride 111 H, Carbon Dioxide 21.0, Anion Gap 7, BUN 48 H, Creatinine 1.39 H, Estim Creat Clear Calc 57.48, Est GFR (MDRD) Af Amer 65, Est GFR (MDRD) Non-Af 54 L, BUN/Creatinine Ratio 34.5 H, Glucose 210 H, Calcium 8.4 L, Total Bilirubin 0.70, AST 35, ALT 44, Alkaline Phosphatase 54, Total Protein 6.2 L, Albumin 2.1 L, Globulin 4.1, Albumin/Globulin Ratio 0.5 L 05/11/21 05:15: PT 37.6 H, INR 3.9 Micro: Microbiology 05/08/21 10:29 Nasal Secretion SARS-CoV-2 Antigen (Rapid) - Final SARS-CoV-2 (COVID 19) Physical Exam Narrative GENERAL: cooperative but dyspneic at rest HEENT: Atraumatic; EYES; Anicteric, Normal Conjunctiva NECK; supple, normal thyroid, RESPIRATORY: Diminished to auscultation CARDIOVASCULAR: Regular S1 S2, GI: soft, normoactive bowel sounds, : No Renal angle tenderness; EXTREMITIES: No edema, no clubbing, MUSCULOSKELETAL: no muscle waisting NEURO: Awake; no lateralizing signs. SKIN: No Rash PSYCH; Flat affect Assessment & Plan Assessment/Plan (1) COVID-19: (2) Acute hypoxemic respiratory failure: (3) Supratherapeutic INR: (4) PROSPER (acute kidney injury): PLAN: Patient is a 70-year-old gentleman presented with shortness of breath 1. Acute hypoxic respiratory failure secondary to SARS-CoV-2 pneumonia ?Chest x-ray obtained on admission demonstrated Patchy bilateral alveolar infiltrates worse in the right hemithorax suggestive of bilateral pneumonias. Patient admitted to the intensive care unit placed on supplemental oxygen titrated to keep saturation greater than 90. As part of his management patient was placed on Decadron consult placed to both ID and pulmonary medicine. Patient was started on both remdesivir as well as baricitinib disease -05/09/2021; remains in ICU on high flow oxygen ?05/10/2021; patient remains in ICU still requiring high flow oxygen -05/11/2021; Patient seen appears clinically stable. Attempt to wean patient off airvo the day prior was unsuccessful. 2. Acute kidney injury ?Superimposed on chronic kidney disease stage III. Patient baseline creatinine 1.6 to creatinine on admission 2.38. Do suspect dehydration from decreased oral intake as a result of above, as well as patient being on diuretics. Suspected offending medications discontinued patient started on IV fluids with consultation placed to nephrology -05/09/2021; creatinine down to 1.83 ?05/10/2021; patient kidney function continues to improve his IV fluid discontinued the day prior -05/11/2021; creatinine down to 1.3 3. Elevated troponin ?Consistent with acute non-STEMI type II -Probably as a result of SARS-CoV-2 pneumonia consult placed to cardiology 4. Diabetes mellitus type II -patient's oral hypoglycemics held. Placed on long acting insulin, Accu-Cheks a.c. and at bedtime and covered with sliding scale insulin 5. Hypertension - Blood pressure controlled, home medications continued with dose adjustment as needed 6. History of previous DVT ?Patient is on systemic anticoagulation with Coumadin. INR was markedly elevate d on admission. Patient currently does not require vitamin K or FFP. Coumadin held daily monitoring with INR ordered -05/09/2021; INR up to 8.8. An order was given for patient to receive 5 mg of p.o. vitamin K with daily monitoring of INR ordered ?05/10/2021; INR down to 4.2 -05/11/2021; INR down to 3.9 7. Obesity with BMI of 38.5 ?Weight loss advised 8. DVT prophylaxis ?Patient already on systemic anticoagulation with Coumadin Charges/Coding Visit Charges Inpatient E&M: 94599 Subs Hosp L3
--- NOTE | 2021-05-11 08:07 | PN.CC_ITS ---
Assessment & Plan Assessment/Plan (1) COVID-19: (2) Supratherapeutic INR: (3) Acute hypoxemic respiratory failure: (4) PROSPER (acute kidney injury): PLAN: RECOMMENDATIONS: 1. Wean oxygen to maintain saturations at or above 90%. 2. Continue remdesivir to complete 5-day treatment course. Continue to monitor liver and renal function. 3. Continue Decadron to complete 10-day treatment course. 4. Continue baricitinib therapy per ID recommendations. 5. Continue to hold Coumadin. Check INR daily. 6. Awake prone positioning is encouraged. 7. Continue Lantus and sliding scale insulin coverage. IMPRESSIONS: 1. Acute hypoxemic respiratory failure secondary to COVID-19 pneumonia The patient presented to the hospital with approximately 6 days of worsening dyspnea, cough and hypoxemia. He subsequently tested positive for coronavirus. Plan to continue heated high flow oxygen to maintain saturations at or above 90%. Plan to continue current supportive therapies including remdesivir, Decadron and baricitinib. 2. Acute on chronic kidney disease Improving. Likely prerenal in etiology. Nephrology is following. Continue current supportive measures. 3. Troponin elevation Likely secondary to demand ischemia in the setting of #1. Consultation placed to cardiology. 4. History of DVT/coagulopathy Given supratherapeutic INR, continue to hold Coumadin. No indication for emergent reversal. This note was generated with [employer] dictation software. It may contain incorrect words, spelling, and punctuation that were not noted in checking the note before signing. Subjective Subjective The patient was seen and examined at the bedside this morning. Events from the last 24 hours have been reviewed. The patient is currently afebrile, hemodynamically stable and maintaining appropriate oxygen saturations on Airvo heated high flow with an FiO2 requirement of 93% and flow rate of 60 L/min. He is currently documented to be overall net +1.1 L for the hospital admission. The patient remains on remdesivir, Decadron, baricitinib and Lovenox twice daily. Objective Data Objective Data The patient's most recent lab work, culture data and imaging studies have all been personally reviewed. Rapid coronavirus antigen testing was positive on May 08. Vital Signs: Vital Signs Temp Pulse Resp BP Pulse Ox 98.1 F 55 L 24 H 159/90 H 60 05/11/21 00:00 05/11/21 06:00 05/11/21 06:00 05/11/21 06:00 05/11/21 06:00 Oxygen Flow Rate (L/min) 60 Oxygen Delivery Method Airvo Weight: 129.1 kg Body Mass Index (BMI) 38.7 Intake & Output: Intake and Output for Last 24 Hours 05/09/21 05/10/21 05/11/21 23:59 23:59 23:59 Intake Total 3235.51 / 3235.51 1520 / 1520 Output Total 1994 2725 / 2725 Balance 1240.51 / 940.51 -1205 / -1205 Lab / Micro Data Attestation: I reviewed the patient's lab results. Result Diagrams: 05/11/21 05:15 05/11/21 05:15 Labs: Laboratory Results - last 24 hr 05/09/21 07:24: Diff Path Review Reviewed 05/10/21 08:00: PT 39.4 H, INR 4.2 H* 05/10/21 10:39: POC Glucose 285 H 05/10/21 16:58: POC Glucose 469 H* 05/10/21 21:25: POC Glucose 345 H 05/11/21 05:15: WBC 12.9 H, RBC 4.68, Hgb 14.6, Hct 43.8, MCV 93.6, MCH 31.2, MCHC 33.3, RDW Std Deviation 47.8 H, RDW Coeff of Geovanna 14.0, Plt Count 314, MPV 9.2, Neut % (Auto) Not Reportable, Absolute Neuts (auto) 11.7 H, Absolute Lymphs (auto) 0.64 L, Total Counted 100, Neutrophils % (Manual) 91 H, Lymphocytes % (Manual) 5 L, Monocytes % (Manual) 1, Metamyelocytes % 2 H, Myelocytes % 1 H, Diff Path Review May foll, Platelet Estimate ADEQUATE, RBC Morphology NORM C+C 05/11/21 05:15: Sodium 139, Potassium 3.9, Chloride 111 H, Carbon Dioxide 21.0, Anion Gap 7, BUN 48 H, Creatinine 1.39 H, Estim Creat Clear Calc 57.48, Est GFR (MDRD) Af Amer 65, Est GFR (MDRD) Non-Af 54 L, BUN/Creatinine Ratio 34.5 H, Glucose 210 H, Calcium 8.4 L, Total Bilirubin 0.70, AST 35, ALT 44, Alkaline Phosphatase 54, Total Protein 6.2 L, Albumin 2.1 L, Globulin 4.1, Albumin/Globulin Ratio 0.5 L 05/11/21 05:15: PT 37.6 H, INR 3.9 Micro: Microbiology 05/08/21 10:29 Nasal Secretion SARS-CoV-2 Antigen (Rapid) - Final SARS-CoV-2 (COVID 19) Physical Exam Const alert and no apparent distress General Appearance: cooperative Nutritional Appearance: morbidly obese HEENT normocephalic, head/scalp atraumatic and moist oral mucous membranes Eyes PERRL, EOMs intact bilaterally and conjunctivae normal Neck supple General: trachea midline Chest inspection of chest normal Resp Auscultation: diminished lung sounds; Negative for rales, rhonchi or wheezes Cardio regular rate and regular rhythm GI normal to inspection, nondistended, normoactive bowel sounds Extremity no clubbing, cyanosis or edema Skin no rashes or lesions noted Neuro CN's II-XII intact bilaterally, moves all extremities and no focal motor deficits Psych cooperative and affect normal Charges/Coding Visit Charges Inpatient E&M: 39663 Subs Hosp L3
[2021-05-11] MEDS: Enoxaparin 40 MG/0.4 ML Syringe SC ×2 (08:46→21:32)
[2021-05-11] MEDS: dexAMETHasone 10 MG/ML Vial 6 MG IV (08:49)
[2021-05-11] MEDS: Atenolol 50 MG Tablet PO (08:50)
[2021-05-11] MEDS: Aspirin 81 MG TAB.CHEW PO (08:50)
[2021-05-11] MEDS: Insulin Lispro 100 UNIT/ML INSULN.PEN SC ×4 (08:53→21:33)
[2021-05-11 15:36] LABS: Bedside Glucose 201 mg/dL (70-110)
[2021-05-11 17:56] LABS: Bedside Glucose 333 mg/dL (70-110)
--- NOTE | 2021-05-11 19:13 | PCM.PN.REN ---
Subjective Subjective Following for PROSPER. No new complaints. He denies increasing shortness of breath or chest pain. Objective Data Objective Data Vital Signs: Vital Signs Temp Pulse Resp BP Pulse Ox 97.2 F L 61 24 H 147/93 H 92 05/11/21 14:00 05/11/21 18:00 05/11/21 18:00 05/11/21 18:00 05/11/21 18:00 Oxygen Flow Rate (L/min) 60 Oxygen Delivery Method Airvo Weight: 129.1 kg Body Mass Index (BMI) 38.7 Intake & Output: Intake and Output for Last 24 Hours 05/09/21 05/10/21 05/11/21 23:59 23:59 23:59 Intake Total 3235.51 / 3235.51 1520 / 1520 1350 / 1350 Output Total 1994 / 5 2725 / 2725 1400 / 1400 Balance 1240.51 / 940.51 -1205 / -1205 -50 / -50 Lab / Micro Data Result Diagrams: 05/11/21 05:15 05/11/21 05:15 Labs: Laboratory Results - last 24 hr 05/10/21 21:25: POC Glucose 345 H 05/11/21 05:15: WBC 12.9 H, RBC 4.68, Hgb 14.6, Hct 43.8, MCV 93.6, MCH 31.2, MCHC 33.3, RDW Std Deviation 47.8 H, RDW Coeff of Geovanna 14.0, Plt Count 314, MPV 9.2, Neut % (Auto) Not Reportable, Absolute Neuts (auto) 11.7 H, Absolute Lymphs (auto) 0.64 L, Total Counted 100, Neutrophils % (Manual) 91 H, Lymphocytes % (Manual) 5 L, Monocytes % (Manual) 1, Metamyelocytes % 2 H, Myelocytes % 1 H, Diff Path Review December, Platelet Estimate ADEQUATE, RBC Morphology NORM C+C 05/11/21 05:15: Sodium 139, Potassium 3.9, Chloride 111 H, Carbon Dioxide 21.0, Anion Gap 7, BUN 48 H, Creatinine 1.39 H, Estim Creat Clear Calc 57.48, Est GFR (MDRD) Af Amer 65, Est GFR (MDRD) Non-Af 54 L, BUN/Creatinine Ratio 34.5 H, Glucose 210 H, Calcium 8.4 L, Total Bilirubin 0.70, AST 35, ALT 44, Alkaline Phosphatase 54, Total Protein 6.2 L, Albumin 2.1 L, Globulin 4.1, Albumin/Globulin Ratio 0.5 L 05/11/21 05:15: PT 37.6 H, INR 3.9 05/11/21 11:26: POC Glucose 201 H 05/11/21 16:13: POC Glucose 333 H Micro: Microbiology 05/08/21 10:29 Nasal Secretion SARS-CoV-2 Antigen (Rapid) - Final SARS-CoV-2 (COVID 19) Physical Exam Narrative General: No apparent distress HEENT: Mucous membranes moist Heart: Normal S1, S2 no rubs Lungs: Decreased breath sound at bases bilaterally Abdomen: Soft nontender no guarding or rebound Extremity: No edema Assessment & Plan Assessment/Plan (1) PROSPER (acute kidney injury): PLAN: -Nonoliguric PROSPER superimposed on CKD stage III. -PROSPER is prerenal. Elevated creatinine since 2015. Baseline creatinine ranging 1.6 to 1.9 mg/dL. Creatinine on admission 2.38 mg/dL--> improved to 1.39mg/dL today. -There is no acute indication for [employer]. Keep off furosemide, spironolactone and losartan. UA negative for protein, blood, leuk esterase -Patient off IVF. Encouraged fluids. Continue strict I/O. -Blood pressures have been acceptable off of spironolactone and losartan. He is on hydralazine and atenolol. (2) COVID-19: (3) Acute hypoxemic respiratory failure: (4) Supratherapeutic INR:
[2021-05-11] MEDS: hydrALAZINE 50 MG Tablet PO (21:33)
[2021-05-11] MEDS: 0.9% Saline Lock 10 ML Syringe IV (21:42)
[2021-05-11 21:51] LABS: Bedside Glucose 290 mg/dL (70-110)
[2021-05-12] VITALS (34 sets, daily range): BP systolic 120–155; BP diastolic 62–120; PULSE 54–65; RESP 15–25; TEMP 35.6–36.8; O2SAT 87–99
[2021-05-12] MEDS: Acetaminophen 325 MG Tablet 650 MG PO ×2 (00:36→21:18)
[2021-05-12] MEDS: Atenolol 50 MG Tablet PO ×3 (00:39→21:18)
[2021-05-12 05:07] LABS: Absolute Lymphocyte Count 0.69 X10^3/uL (0.83-4.51); Basophil# 0.04 X10^3/uL; Basophil% 0.3 % (0-1); Eosinophil# 0.01 X10^3/uL; Eosinophils% 0.1 % (0-5); Hematocrit 44.2 % (40-54); Hemoglobin 15.1 g/dL (13.0-16.5); Lymphocyte # 0.69 X10^3/ul (0.83-4.51); Lymphocyte % 4.7 % (19-41); Mean Corp Hgb Conc 34.2 g/dL (32-36); Mean Corpuscular Hgb 31.4 pg (27.0-32.0); Mean Corpuscular Volume 91.9 fL (80-94); Mean Platelet Vol. 9.1 fl (6.2-12.0); Monocyte% 1.4 % (0-10); NRBC Flagged by Analyzer 0 % (0-5); Neutrophil % 88.9 % (47-70); Platelet Count 353 K/mm3 (150-450); RBC Distribution Width SD 47.5 fl (35.1-43.9); Red Blood Count 4.81 M/mm3 (4.6-6.2); White Blood Count 14.6 K/mm3 (4.4-11.0)
[2021-05-12 05:17] LABS: ALB/GLOB Ratio 0.5 RATIO (0.9-2.4); AST(SGOT) 31 U/L (15-37); Alanine Aminotransfer ALT/SGPT 42 U/L (16-61); Albumin, Serum 2.1 g/dL (3.2-5.0); Alkaline Phosphatase 60 U/L (45-117); Anion Gap 9 (5-15); BUN 34 mg/dL (7-18); BUN/Creat Ratio 29.6 RATIO (10-20); Calcium,Total 8.2 mg/dL (8.5-10.1); Chloride 108 mmol/L (98-107); Creatinine, Serum 1.15 mg/dL (0.70-1.30); EST Glomerular Filtration Rate 67 mL/min (>60); Est Glom Filt Rate - Afr Amer 81 mL/min (>60); Estimated Creatinine Clearance 69.48 ml/min; Globulin 4.2 g/dL (2.2-4.2); Glucose 216 mg/dL (74-106); Potassium 4.1 mmol/L (3.5-5.1); Protein, Total 6.3 g/dL (6.4-8.2); Sodium Level 138 mmol/L (136-145)
[2021-05-12] MEDS: Magnesium Hydroxide 30 ML UDC PO (06:56)
--- NOTE | 2021-05-12 07:27 | PN.CC_ITS ---
Assessment & Plan Assessment/Plan (1) COVID-19: (2) Supratherapeutic INR: (3) Acute hypoxemic respiratory failure: (4) PROSPER (acute kidney injury): PLAN: RECOMMENDATIONS: 1. Wean oxygen to maintain saturations at or above 90%. 2. Continue remdesivir to complete 5-day treatment course. Continue to monitor liver and renal function. 3. Continue Decadron to complete 10-day treatment course. 4. Continue baricitinib therapy per ID recommendations. 5. Continue to hold Coumadin. Check INR daily. 6. Awake prone positioning is encouraged. 7. Continue Lantus and sliding scale insulin coverage. IMPRESSIONS: 1. Acute hypoxemic respiratory failure secondary to COVID-19 pneumonia The patient presented to the hospital with approximately 6 days of worsening dyspnea, cough and hypoxemia. He subsequently tested positive for coronavirus. Plan to continue heated high flow oxygen to maintain saturations at or above 90%. Plan to continue current supportive therapies including remdesivir, Decadron and baricitinib. 2. Acute on chronic kidney disease Improving. Likely prerenal in etiology. Nephrology is following. Continue current supportive measures. 3. Troponin elevation Likely secondary to demand ischemia in the setting of #1. 4. History of DVT/coagulopathy Given supratherapeutic INR, continue to hold Coumadin. No indication for emergent reversal. This note was generated with [facility] dictation software. It may contain incorrect words, spelling, and punctuation that were not noted in checking the note before signing. Subjective Subjective The patient was seen and examined at the bedside this morning. Events from the last 24 hours have been reviewed. The patient is currently afebrile, hemodynamically stable and maintaining appropriate oxygen saturations on Airvo heated high flow with an FiO2 requirement of 62% and flow rate of 55 L/min. He is currently documented to be overall net even for the hospital admission. The patient remains on remdesivir, Decadron, baricitinib and Lovenox twice daily. Creatinine has improved to 1.15. Overall, the patient's oxygenation status continues to slowly improve. Objective Data Objective Data The patient's most recent lab work, culture data and imaging studies have all been personally reviewed. Rapid coronavirus antigen testing was positive on May 08. Vital Signs: Vital Signs Temp Pulse Resp BP Pulse Ox 97.7 F L 60 22 H 153/78 H 94 05/12/21 00:00 05/12/21 06:00 05/12/21 06:00 05/12/21 06:00 05/12/21 06:00 Oxygen Flow Rate (L/min) 55 Oxygen Delivery Method Airvo Weight: 129 kg Body Mass Index (BMI) 38.7 Intake & Output: Intake and Output for Last 24 Hours 05/10/21 05/11/21 05/12/21 23:59 23:59 23:59 Intake Total 1520 / 1520 1350 / 1350 200 / 200 Output Total 2725 / 2725 2000 / 2300 700 / 700 Balance -1205 / -1205 -650 / -950 -500 / -500 Lab / Micro Data Attestation: I reviewed the patient's lab results. Result Diagrams: 05/12/21 04:43 05/12/21 04:43 Labs: Laboratory Results - last 24 hr 05/11/21 11:26: POC Glucose 201 H 05/11/21 16:13: POC Glucose 333 H 05/11/21 21:31: POC Glucose 290 H 05/12/21 04:43: WBC 14.6 H, RBC 4.81, Hgb 15.1, Hct 44.2, MCV 91.9, MCH 31.4, MCHC 34.2, RDW Std Deviation 47.5 H, RDW Coeff of Geovanna 14.0, Plt Count 353, MPV 9.1, Immature Gran % (Auto) 4.600 H, Neut % (Auto) 88.9 H, Lymph % (Auto) 4.7 L, [place] % (Auto) 1.4, Eos % (Auto) 0.1, Baso % (Auto) 0.3, Absolute Neuts (auto) 13.0 H, Absolute Lymphs (auto) 0.69 L, Nucleated RBC % 0 05/12/21 04:43: Sodium 138, Potassium 4.1, Chloride 108 H, Carbon Dioxide 21.0, Anion Gap 9, BUN 34 H, Creatinine 1.15, Estim Creat Clear Calc 69.48, Est GFR (MDRD) Af Amer 81, Est GFR (MDRD) Non-Af 67, BUN/Creatinine Ratio 29.6 H, Glucose 216 H, Calcium 8.2 L, Total Bilirubin 0.70, AST 31, ALT 42, Alkaline Phosphatase 60, Total Protein 6.3 L, Albumin 2.1 L, Globulin 4.2, Albumin/Globulin Ratio 0.5 L Micro: Microbiology 05/08/21 10:29 Nasal Secretion SARS-CoV-2 Antigen (Rapid) - Final SARS-CoV-2 (COVID 19) Physical Exam Const alert and no apparent distress General Appearance: cooperative Nutritional Appearance: morbidly obese HEENT normocephalic, head/scalp atraumatic and moist oral mucous membranes Eyes PERRL, EOMs intact bilaterally and conjunctivae normal Neck supple General: trachea midline Chest inspection of chest normal Resp Auscultation: diminished lung sounds; Negative for rales, rhonchi or wheezes Cardio regular rate and regular rhythm GI normal to inspection, nondistended, normoactive bowel sounds Extremity no clubbing, cyanosis or edema Skin no rashes or lesions noted Neuro CN's II-XII intact bilaterally, moves all extremities and no focal motor deficits Psych cooperative and affect normal Charges/Coding Visit Charges Inpatient E&M: 88471 Subs Hosp L3
--- NOTE | 2021-05-12 07:28 | PN.HOSP_ITS ---
Subjective Subjective Patient seen remains on high flow oxygen via Airvo also remains on remdesivir baricitinib as well as therapeutic Lovenox. Case was discussed with Dr. Corcoran regarding patient markedly elevated troponin Objective Data Objective Data Vital Signs: Vital Signs Temp Pulse Resp BP Pulse Ox 97.7 F L 60 22 H 153/78 H 94 05/12/21 00:00 05/12/21 06:00 05/12/21 06:00 05/12/21 06:00 05/12/21 06:00 Oxygen Flow Rate (L/min) 55 Oxygen Delivery Method Airvo Weight: 129 kg Body Mass Index (BMI) 38.7 Intake & Output: Intake and Output for Last 24 Hours 05/10/21 05/11/21 05/12/21 23:59 23:59 23:59 Intake Total 1520 / 1520 1350 / 1350 200 / 200 Output Total 2725 / 2725 2000 / 2300 700 / 700 Balance -1205 / -1205 -650 / -950 -500 / -500 Lab / Micro Data Result Diagrams: 05/12/21 04:43 05/12/21 04:43 Labs: Laboratory Results - last 24 hr 05/11/21 11:26: POC Glucose 201 H 05/11/21 16:13: POC Glucose 333 H 05/11/21 21:31: POC Glucose 290 H 05/12/21 04:43: WBC 14.6 H, RBC 4.81, Hgb 15.1, Hct 44.2, MCV 91.9, MCH 31.4, MCHC 34.2, RDW Std Deviation 47.5 H, RDW Coeff of Geovanna 14.0, Plt Count 353, MPV 9.1, Immature Gran % (Auto) 4.600 H, Neut % (Auto) 88.9 H, Lymph % (Auto) 4.7 L, [place] % (Auto) 1.4, Eos % (Auto) 0.1, Baso % (Auto) 0.3, Absolute Neuts (auto) 13.0 H, Absolute Lymphs (auto) 0.69 L, Nucleated RBC % 0 05/12/21 04:43: Sodium 138, Potassium 4.1, Chloride 108 H, Carbon Dioxide 21.0, Anion Gap 9, BUN 34 H, Creatinine 1.15, Estim Creat Clear Calc 69.48, Est GFR (MDRD) Af Amer 81, Est GFR (MDRD) Non-Af 67, BUN/Creatinine Ratio 29.6 H, Glucose 216 H, Calcium 8.2 L, Total Bilirubin 0.70, AST 31, ALT 42, Alkaline Phosphatase 60, Total Protein 6.3 L, Albumin 2.1 L, Globulin 4.2, Albumin/ Globulin Ratio 0.5 L Micro: Microbiology 05/08/21 10:29 Nasal Secretion SARS-CoV-2 Antigen (Rapid) - Final SARS-CoV-2 (COVID 19) Physical Exam Narrative GENERAL: cooperative HEENT: Atraumatic; EYES; Anicteric, Normal Conjunctiva NECK; supple, normal thyroid, RESPIRATORY: Diminished to auscultation CARDIOVASCULAR: Regular S1 S2, GI: soft, normoactive bowel sounds, : No Renal angle tenderness; EXTREMITIES: No edema, no clubbing, MUSCULOSKELETAL: no muscle waisting NEURO: Awake; no lateralizing signs. SKIN: No Rash PSYCH; Flat affect Assessment & Plan Assessment/Plan (1) COVID-19: (2) Acute hypoxemic respiratory failure: (3) Supratherapeutic INR: (4) PROSPER (acute kidney injury): PLAN: Patient is a 70-year-old gentleman presented with shortness of breath 1. Acute hypoxic respiratory failure secondary to SARS-CoV-2 pneumonia ?Chest x-ray obtained on admission demonstrated Patchy bilateral alveolar infiltrates worse in the right hemithorax suggestive of bilateral pneumonias. Patient admitted to the intensive care unit placed on supplemental oxygen titrated to keep saturation greater than 90. As part of his management patient was placed on Decadron consult placed to both ID and pulmonary medicine. Patient was started on both remdesivir as well as baricitinib disease -05/09/2021; remains in ICU on high flow oxygen ?05/10/2021; patient remains in ICU still requiring high flow oxygen -05/11/2021; Patient seen appears clinically stable. Attempt to wean patient off airvo the day prior was unsuccessful. -05/12/2021; Patient seen remains on high flow oxygen via Airvo also remains on remdesivir baricitinib as well as therapeutic Lovenox. Case was discussed with Dr. Corcoran regarding patient markedly elevated troponin 2. Acute kidney injury ?Superimposed on chronic kidney disease stage III. Patient baseline creatinine 1.6 to creatinine on admission 2.38. Do suspect dehydration from decreased oral intake as a result of above, as well as patient being on diuretics. Suspected offending medications discontinued patient started on IV fluids with consultation placed to nephrology -05/09/2021; creatinine down to 1.83 ?05/10/2021; patient kidney function continues to improve his IV fluid discontinued the day prior -05/11/2021; creatinine down to 1.3 3. Elevated troponin ?Consistent with acute non-STEMI type II -Probably as a result of SARS-CoV-2 pneumonia consult placed to cardiology 4. Diabetes mellitus type II -patient's oral hypoglycemics held. Placed on long acting insulin, Accu-Cheks a.c. and at bedtime and covered with sliding scale insulin 5. Hypertension - Blood pressure controlled, home medications continued with dose adjustment as needed 6. History of previous DVT ?Patient is on systemic anticoagulation with Coumadin. INR was markedly elevated on admission. Patient currently does not require vitamin K or FFP. Coumadin held daily monitoring with INR ordered -05/09/2021; INR up to 8.8. An order was given for patient to receive 5 mg of p.o. vitamin K with daily monitoring of INR ordered ?05/10/2021; INR down to 4.2 -05/11/2021; INR down to 3.9 7. Obesity with BMI of 38.5 ?Weight loss advised 8. DVT prophylaxis ?Patient already on systemic anticoagulation with Coumadin Charges/Coding Visit Charges Inpatient E&M: 16387 Subs Hosp L3
[2021-05-12] MEDS: Insulin Lispro 100 UNIT/ML INSULN.PEN SC ×4 (08:31→21:22)
[2021-05-12] MEDS: dexAMETHasone 10 MG/ML Vial 6 MG IV (08:32)
[2021-05-12] MEDS: Aspirin 81 MG TAB.CHEW PO (08:32)
[2021-05-12] MEDS: Enoxaparin 40 MG/0.4 ML Syringe SC ×2 (08:33→21:17)
[2021-05-12 09:22] LABS: International Normalized Ratio 3.6; Prothrombin Time (Protime)PT. 34.9 SECONDS (11.7-14.9)
--- NOTE | 2021-05-12 10:12 | CON.PCM.CA_ITS ---
Assessment & Plan Assessment/Plan (1) Non-ST elevation MO (NSTEMI): PLAN: The patient has abnormal cardiac enzymes with no acute ECG changes raising concerns of a NSTEMI in the setting of COVID-19 and hypoxemia. At the present time the patient denies any acute cardiovascular symptoms other than his dyspnea / cough that he presented with and appears compatible with his COVID-19 diagnosis. The elevated cardiac enzymes may be a Type II event secondary to his pulmonary process and significant hypoxemia on presentation. At this time it is reasonable to continue to monitor the patient for any obvious concerning symptoms. He can continue medical therapy such as aspirin, nitrates as needed, beta blockers, and antiplatelet / anticoagulant therapy as deemed appropriate. His lipids can be evaluated with consideration based upon his risk factors and findings to consider lipid lowering therapy with a statin unless otherwise contraindicate. As long as the patient remains stable from a cardiac standpoint it would not be unreasonable to wait for his COVID-19 diagnosis to improve and for his isolation status to be completed before proceeding with additional cardiovascular studies such as an echo/doppler and possibly an exercise tolerance test such as a pharmacologic stress nuclear study / cardiac catheterization - as deemed appropriate. (2) COVID-19: PLAN: As noted above, this diagnosis with his marked hypoxemia may be the etiology of his cardiac enzyme changes as a result of global ischemia. He will continue evaluated / care per internal medicine / pulmonology. (3) HLD (hyperlipidemia): QUALIFIERS: Hyperlipidemia type: unspecified Qualified Code(s): E78.5 - Hyperlipidemia, unspecified PLAN: He will be asked to have his lipid labs checked and be considered for medical therapy with a statin. (4) Benign essential hypertension: PLAN: He will continue medical therapy with adjustment as needed. (5) Type II diabetes mellitus: PLAN: He will continue medical therapy per internal medicine. (6) DVT (deep venous thrombosis): PLAN: The patient has a history of DVT. 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 This will have to be taken into consideration if he eventually requires further cardiovascular invasive evaluation, etc.. Addt'l Comments The above was discussed via telephone with the patient and in person with Dr. Lyon. This note was generated using a voice recognition system and there may be incorrect words, spelling or punctuation that were not noted when reviewing the office note prior to saving. HPI Consult Data Date of Consult: 05/12/21 HPI Narrative HPI Narrative: BRENDON DAVID, is a 70 year old white male who has been reques antoni to have a virtual cardiology consult by Dr. Lyon based upon abnormal high sensitivity Troponin I levels in the setting of COVID-19 and hypoxemia. The patient states his main concern was shortness of breath and a cough. He denied chest discomfort, nausea, emesis, palpitation, near syncope or syncope. He has denies classic symptoms of orthopnea / PND or ongoing peripheral pedal edema. He denies any cardiac evaluations in the past. The patient was evaluated in the ED. He was noted to have O2 saturations reported in the 70s. His CXR was noted to have bilateral infiltrates. He was noted to be COVID-19 positive. He has been in the ICU receiving medical therapy / support. He has not required mechanical intubation / ventilation. His intitial Troponin I level was elevated at 3048 with the most recent level being 1852. His initial ECG demonstrated sinus rhythm with non acute ECG changes with a repeat ECG demonstrating sinus rhythm with no acute ECG changes. He does have a history of hyperlipidemia which he states has been treated with Red Yeast Rice as well as a history of hypertension, diabetes mellitus, and DVT on exterminator helper termite oral anticoagulant therapy with warfarin/coumadin. FOR[facility], [facility] Medical History (Updated 05/12/21 @ 10:[address] Jewel Corcoran MD) Diabetes DVT (deep venous thrombosis) DVT (deep venous thrombosis) Home Medications acarbose [Precose] 50 - 100 mg PO TIDCM 11/12/16 [History Last Taken 05/20/19] atenolol 50 mg PO BID 11/12/16 [History Last Taken 05/20/19] coenzyme Q10 [Co Q-10] 100 mg PO DAILY 11/12/16 [History Last Taken 05/20/19] dulaglutide [Trulicity] 0.5 ml SQ WE 11/12/16 [History Last Taken 05/18/19] hydralazine 25 mg PO DAILY 11/12/16 [History Last Taken 05/20/19] losartan 100 mg PO QHS 11/12/16 [History Last Taken 05/19/19] magnesium oxide 400 mg PO DAILY 11/12/16 [History Last Taken 05/20/19] cinnamon bark 500 mg PO BID 05/20/19 [History Last Taken 05/20/19] furosemide 20 mg PO DAILY 05/20/19 [History Last Taken 05/20/19] glimepiride 4 mg PO BID 05/20/19 [History Last Taken 05/20/19] red yeast rice 600 mg PO BID 05/20/19 [History Last Taken 05/20/19] selenium 200 mcg PO DAILY 05/20/19 [History Last Taken 05/20/19] spironolactone 50 mg PO DAILY 05/20/19 [History Last Taken 05/20/19] warfarin 7 mg PO DAILY 05/20/19 [History Last Taken 05/19/19] ascorbic acid (vitamin C) [Vitamin C] 1 g PO DAILY 05/08/21 [History Last Taken Unknown] cholecalciferol (vitamin D3) [Vitamin D3] 50 mcg PO DAILY 05/08/21 [History Last Taken Unknown] dexamethasone 6 mg PO DAILY 05/08/21 [History Last Taken Unknown] empagliflozin [Jardiance] 25 mg PO DAILY 05/08/21 [History Last Taken Unknown] hydralazine 50 mg PO QHS 05/08/21 [History Last Taken Unknown] icosapent ethyl [Vascepa] 2 g PO BID 05/08/21 [History Last Taken Unknown] multivitamin 1 tab PO DAILY 05/08/21 [History Last Taken Unknown] pioglitazone 15 - 30 mg PO DAILY 05/08/21 [History Last Taken Unknown] psyllium husk 3 g PO BID 05/08/21 [History Last Taken Unknown] vitamin K2 100 mcg PO DAILY 05/08/21 [History Last Taken Unknown] zinc 50 mg PO DAILY 05/08/21 [History Last Taken Unknown] Allergy/AdvReac Type Severity Reaction Status Date / Time No Known Allergies Allergy Verified 05/08/21 10:21 Family History Father Heart disease Mother CVA (cerebral vascular accident) Surgical History History of back surgery Social History Smoking Status: Never smoker substance use type: does not use ROS Constitutional Constitutional: Reports systems reviewed and no addt'l complaints, except as documented Eyes Eyes: Reports systems reviewed and no addt'l complaints, except as documented ENT HEENT: Reports systems reviewed and no addt'l complaints, except as documented Cardiovascular Cardiovascular: Reports dyspnea Respiratory/Chest Respiratory/Chest: Reports cough and dyspnea Gastrointestinal Gastrointestinal: Reports systems reviewed and no addt'l complaints, except as documented Musculoskeletal Musculoskeletal: Reports systems reviewed and no addt'l complaints, except as documented Neurologic Neurologic: Reports systems reviewed and no addt'l complaints, except as documented Physical Exam Narrative Examination not performed secondary to telephone visit secondary to COVID-19. Objective Data Vital Signs: Vital Signs Temp Pulse Resp BP Pulse Ox 97.7 F L 59 L 22 H 136/82 H 91 05/12/21 00:00 05/12/21 08:04 05/12/21 08:04 05/12/21 07:00 05/12/21 08:04 Oxygen Flow Rate (L/min) 55 Oxygen Delivery Method Airvo Weight: 284 lb 6.341 oz Body Mass Index (BMI) 38.7 Intake & Output: Intake and Output for Last 24 Hours 05/10/21 05/11/21 05/12/21 23:59 23:59 23:59 Intake Total 1520 / 1520 1350 / 1350 200 / 200 Output Total 2725 / 2725 2000 / 2300 700 / 700 Balance -1205 / -1205 -650 / -950 -500 / -500 Lab / Micro Data Result Diagrams: 05/12/21 04:43 05/12/21 04:43 Labs: Laboratory Results - last 24 hr 05/11/21 11:26: POC Glucose 201 H 05/11/21 16:13: POC Glucose 333 H 05/11/21 21:31: POC Glucose 290 H 05/12/21 04:43: WBC 14.6 H, RBC 4.81, Hgb 15.1, Hct 44.2, MCV 91.9, MCH 31.4, MCHC 34.2, RDW Std Deviation 47.5 H, RDW Coeff of Geovanna 14.0, Plt Count 353, MPV 9.1, Immature Gran % (Auto) 4.600 H, Neut % (Auto) 88.9 H, Lymph % (Auto) 4.7 L, [place] % (Auto) 1.4, Eos % (Auto) 0.1, Baso % (Auto) 0.3, Absolute Neuts (auto) 13.0 H, Absolute Lymphs (auto) 0.69 L, Nucleated RBC % 0 05/12/21 04:43: Sodium 138, Potassium 4.1, Chloride 108 H, Carbon Dioxide 21.0, Anion Gap 9, BUN 34 H, Creatinine 1.15, Estim Creat Clear Calc 69.48, Est GFR (MDRD) Af Amer 81, Est GFR (MDRD) Non-Af 67, BUN/Creatinine Ratio 29.6 H, Glucose 216 H, Calcium 8.2 L, Total Bilirubin 0.70, AST 31, ALT 42, Alkaline Phosphatase 60, Total Protein 6.3 L, Albumin 2.1 L, Globulin 4.2, Albumin/G lobulin Ratio 0.5 L 05/12/21 08:30: PT Cancelled, INR Cancelled 05/12/21 08:58: PT 34.9 H, INR 3.6 Cardiology Labs/Tests 05/12/21 04:43: WBC 14.6 H, RBC 4.81, Hgb 15.1, Hct 44.2, MCV 91.9, MCH 31.4, MCHC 34.2, Plt Count 353, MPV 9.1, Immature Gran % (Auto) 4.600 H, Neut % (Auto) 88.9 H, Lymph % (Auto) 4.7 L, [place] % (Auto) 1.4, Eos % (Auto) 0.1, Baso % (Auto) 0.3, Absolute Neuts (auto) 13.0 H, Nucleated RBC % 0 05/12/21 04:43: Sodium 138, Potassium 4.1, Chloride 108 H, Carbon Dioxide 21.0, Anion Gap 9, BUN 34 H, Creatinine 1.15, Est GFR (MDRD) Af Amer 81, Est GFR (MDRD) Non-Af 67, BUN/Creatinine Ratio 29.6 H, Glucose 216 H, Calcium 8.2 L, Total Bilirubin 0.70 05/12/21 08:30: PT Cancelled, INR Cancelled 05/12/21 08:58: PT 34.9 H, INR 3.6 Rhythm: sinus rhythm EKG: as noted above
--- NOTE | 2021-05-12 11:46 | NURSING ---
0800 pt sitting in chair using airvo 62% and 55L. lungs diminished but clear. pt in good spirits, ready for breakfast. 0930 pt ambulated to BSC independantly and had large stool. back to chair 1100 assited to get cleaned up, tolerated activity well
[2021-05-12 12:55] LABS: Bedside Glucose 366 mg/dL (70-110)
--- NOTE | 2021-05-12 19:02 | PN.RENAL_ITS ---
Subjective Subjective Following for PROSPER. The patient has high troponin which is being evaluated by cardiology. There is no chest pain. Dyspnea is not any worse than yesterday. Objective Data Objective Data Vital Signs: Vital Signs Temp Pulse Resp BP Pulse Ox 97.8 F 65 25 H 133/71 H 98 05/12/21 12:00 05/12/21 18:00 05/12/21 18:00 05/12/21 18:00 05/12/21 18:00 Oxygen Flow Rate (L/min) 15 Oxygen Delivery Method Nasal Cannula Weight: 129 kg Body Mass Index (BMI) 38.7 Intake & Output: Intake and Output for Last 24 Hours 05/10/21 05/11/21 05/12/21 23:59 23:59 23:59 Intake Total 1520 / 1520 1350 / 1350 1740 / 1740 Output Total 2725 / 2725 2000 / 2300 1950 / 1950 Balance -1205 / -1205 -650 / -950 -210 / -210 Lab / Micro Data Result Diagrams: 05/12/21 04:43 05/12/21 04:43 Labs: Laboratory Results - last 24 hr 05/11/21 21:31: POC Glucose 290 H 05/12/21 04:43: WBC 14.6 H, RBC 4.81, Hgb 15.1, Hct 44.2, MCV 91.9, MCH 31.4, MCHC 34.2, RDW Std Deviation 47.5 H, RDW Coeff of Geovanna 14.0, Plt Count 353, MPV 9.1, Immature Gran % (Auto) 4.600 H, Neut % (Auto) 88.9 H, Lymph % (Auto) 4.7 L, [place] % (Auto) 1.4, Eos % (Auto) 0.1, Baso % (Auto) 0.3, Absolute Neuts (auto) 13.0 H, Absolute Lymphs (auto) 0.69 L, Nucleated RBC % 0 05/12/21 04:43: Sodium 138, Potassium 4.1, Chloride 108 H, Carbon Dioxide 21.0, Anion Gap 9, BUN 34 H, Creatinine 1.15, Estim Creat Clear Calc 69.48, Est GFR (MDRD) Af Amer 81, Est GFR (MDRD) Non-Af 67, BUN/Creatinine Ratio 29.6 H, Glucose 216 H, Calcium 8.2 L, Total Bilirubin 0.70, AST 31, ALT 42, Alkaline Phosphatase 60, Total Protein 6.3 L, Albumin 2.1 L, Globulin 4.2, Albumin/Globulin Ratio 0.5 L 05/12/21 08:30: PT Cancelled, INR Cancelled 05/12/21 08:58: PT 34.9 H, INR 3.6 05/12/21 12:46: POC Glucose 366 H Micro: Microbiology 05/08/21 10:29 Nasal Secretion SARS-CoV-2 Antigen (Rapid) - Final SARS-CoV-2 (COVID 19) Physical Exam Narrative General: No apparent distress HEENT: Mucous membranes moist Heart: Normal S1, S2 no rubs Lungs: Decreased breath sound at bases bilaterally Abdomen: Soft nontender no guarding or rebound Extremity: No edema Assessment & Plan Assessment/Plan (1) PROSPER (acute kidney injury): PLAN: -Nonoliguric PROSPER superimposed on CKD stage III. -PROSPER is prerenal. Elevated creatinine since 2015. Baseline creatinine ranging 1.6 to 1.9 mg/dL. Creatinine on admission 2.38 mg/dL--> improved to 1.15 mg/dL today. 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 -Okay to restart spironolactone and losartan tomorrow if renal function remains stable. -Patient off IVF. Encouraged fluids. Continue strict I/O. -Blood pressures have been acceptable off of spironolactone and losartan. He is on hydralazine and atenolol. (2) COVID-19: (3) Acute hypoxemic respiratory failure: (4) Supratherapeutic INR:
[2021-05-12] MEDS: guaiFENesin 10 ML UDC (200MG/10ML) PO (21:17)
[2021-05-12] MEDS: hydrALAZINE 50 MG Tablet PO (21:17)
[2021-05-12] MEDS: MELATONIN 3 MG TABLET PO (21:18)
[2021-05-12] MEDS: 0.9% Saline Lock 10 ML Syringe IV (21:23)
[2021-05-12 21:40] LABS: Bedside Glucose 385 mg/dL (70-110)
[2021-05-12 22:31] LABS: Bedside Glucose 344 mg/dL (70-110)
[2021-05-13] VITALS (34 sets, daily range): BP systolic 104–152; BP diastolic 59–107; PULSE 51–67; RESP 15–26; TEMP 35.6–36.7; O2SAT 85–99
[2021-05-13] MEDS: Ibuprofen 400 MG Tablet PO ×2 (00:45→16:28)
[2021-05-13] MEDS: Ondansetron 4 MG/2 ML Vial IV (00:48)
[2021-05-13 05:17] LABS: Absolute Lymphocyte Count 0.65 X10^3/uL (0.83-4.51); Absolute Neutrophil Count 12.1 X10^3/uL (2.0-7.7); Basophil# 0.05 X10^3/uL; Basophil% 0.4 % (0-1); Eosinophil# 0.08 X10^3/uL; Eosinophils% 0.6 % (0-5); Hematocrit 42.8 % (40-54); Hemoglobin 14.1 g/dL (13.0-16.5); Lymphocyte # 0.65 X10^3/ul (0.83-4.51); Lymphocyte % 4.7 % (19-41); Mean Corp Hgb Conc 32.9 g/dL (32-36); Mean Corpuscular Hgb 31.3 pg (27.0-32.0); Mean Corpuscular Volume 94.9 fL (80-94); Mean Platelet Vol. 9.7 fl (6.2-12.0); Monocyte# 0.18 X10^3/uL; Monocyte% 1.3 % (0-10); NRBC Flagged by Analyzer 0 % (0-5); Neutrophil # 12.13 X10^3/uL (2.7-7.7); Neutrophil % 88.1 % (47-70); Platelet Count 360 K/mm3 (150-450); RBC Distribution Width CV 14.2 % (11.6-14.6); RBC Distribution Width SD 49.3 fl (35.1-43.9); Red Blood Count 4.51 M/mm3 (4.6-6.2); White Blood Count 13.8 K/mm3 (4.4-11.0)
[2021-05-13 05:32] LABS: ALB/GLOB Ratio 0.4 RATIO (0.9-2.4); AST(SGOT) 48 U/L (15-37); Alanine Aminotransfer ALT/SGPT 47 U/L (16-61); Albumin, Serum 1.9 g/dL (3.2-5.0); Alkaline Phosphatase 66 U/L (45-117); Anion Gap 8 (5-15); BUN 38 mg/dL (7-18); BUN/Creat Ratio 28.1 RATIO (10-20); Calcium,Total 8.1 mg/dL (8.5-10.1); Chloride 107 mmol/L (98-107); Cholesterol 198 mg/dL (200); Creatinine, Serum 1.35 mg/dL (0.70-1.30); EST Glomerular Filtration Rate 56 mL/min (>60); Est Glom Filt Rate - Afr Amer 68 mL/min (>60); Estimated Creatinine Clearance 59.19 ml/min; Globulin 4.3 g/dL (2.2-4.2); Glucose 196 mg/dL (74-106); High Density Lipoprotein 31 mg/dL; Potassium 5.1 mmol/L (3.5-5.1); Protein, Total 6.2 g/dL (6.4-8.2); Sodium Level 138 mmol/L (136-145); Triglycerides 201 mg/dL; Very Low Density Lipoprotein 40 mg/dL (5-40)
[2021-05-13 05:40] LABS: International Normalized Ratio 3.7; Prothrombin Time (Protime)PT. 35.5 SECONDS (11.7-14.9)
[2021-05-13] MEDS: Acetaminophen 325 MG Tablet 650 MG PO (07:45)
[2021-05-13] MEDS: Insulin Lispro 100 UNIT/ML INSULN.PEN SC ×4 (07:46→20:39)
--- NOTE | 2021-05-13 07:48 | PN.CC_ITS ---
Assessment & Plan Assessment/Plan (1) COVID-19: (2) Supratherapeutic INR: (3) Acute hypoxemic respiratory failure: (4) PROSPER (acute kidney injury): PLAN: RECOMMENDATIONS: 1. Wean oxygen to maintain saturations at or above 90%. 2. Completed remdesivir. Continue to monitor liver and renal function given baricitinib. 3. Continue Decadron to complete 10-day treatment course. 4. Continue baricitinib therapy per ID recommendations. 5. Continue to hold Coumadin. Check INR daily. 6. Awake prone positioning is encouraged. 7. Increase Lantus and continue sliding scale insulin coverage. IMPRESSIONS: 1. Acute hypoxemic respiratory failure secondary to COVID-19 pneumonia The patient presented to the hospital with approximately 6 days of worsening dyspnea, cough and hypoxemia. He subsequently tested positive for coronavirus. Plan to continue heated high flow oxygen to maintain saturations at or above 90%. Plan to continue current supportive therapies including remdesivir, Decadron and baricitinib. Strongly encouraged other supportive measures such as prone positioning, incentive spirometer and Acapella. Blood sugars are significantly elevated given Decadron. 2. Acute on chronic kidney disease Improving. Likely prerenal in etiology. Nephrology is following. Continue current supportive measures. 3. Troponin elevation Likely secondary to demand ischemia in the setting of #1. 4. History of DVT/coagulopathy Given supratherapeutic INR, continue to hold Coumadin. No indication for emergent reversal. This note was generated with [employer] dictation software. It may contain incorrect words, spelling, and punctuation that were not noted in checking the note before signing. Subjective Subjective Patient did okay overnight. Patient did state in the recliner for sleep. Patient able to tolerate Airvo to maintain saturations. Patient reports significant coughing associated with the use of incentive spirometer. Objective Data Objective Data Vital Signs: Vital Signs Temp Pulse Resp BP Pulse Ox 36.0 C L 55 L 21 H 135/77 H 90 05/13/21 04:00 05/13/21 06:00 05/13/21 06:00 05/13/21 06:00 05/13/21 06:00 Oxygen Flow Rate (L/min) 50 Oxygen Delivery Method Airvo Weight: 129 kg Body Mass Index (BMI) 38.7 Intake & Output: Intake and Output for Last 24 Hours 05/11/21 05/12/21 05/13/21 23:59 23:59 23:59 Intake Total 1350 / 1350 2230 / 2230 0 / 0 Output Total 1999 / 2299 2775 / 2775 Balance -650 / -950 -545 / -545 0 / 0 Lab / Micro Data Result Diagrams: 05/13/21 04:50 05/13/21 04:50 Labs: Laboratory Results - last 24 hr 05/12/21 08:30: PT Cancelled, INR Cancelled 05/12/21 08:58: PT 34.9 H, INR 3.6 05/12/21 12:46: POC Glucose 366 H 05/12/21 15:57: POC Glucose 385 H 05/12/21 21:21: POC Glucose 344 H 05/13/21 04:50: WBC 13.8 H, RBC 4.51 L, Hgb 14.1, Hct 42.8, MCV 94.9 H, MCH 31.3, MCHC 32.9, RDW Std Deviation 49.3 H, RDW Coeff of Geovanna 14.2, Plt Count 360, MPV 9.7, Immature Gran % (Auto) 4.900 H, Neut % (Auto) 88.1 H, Lymph % (Auto) 4.7 L, [place] % (Auto) 1.3, Eos % (Auto) 0.6, Baso % (Auto) 0.4, Absolute Neuts (auto) 12.1 H, Absolute Lymphs (auto) 0.65 L, Nucleated RBC % 0 05/13/21 04:50: Sodium 138, Potassium 5.1, Chloride 107, Carbon Dioxide 23.0, Anion Gap 8, BUN 38 H, Creatinine 1.35 H, Estim Creat Clear Calc 59.19, Est GFR (MDRD) Af Amer 68, Est GFR (MDRD) Non-Af 56 L, BUN/Creatinine Ratio 28.1 H, Glucose 196 H, Calcium 8.1 L, Total Bilirubin 0.60, AST 48 H, ALT 47, Alkaline Phosphatase 66, Total Protein 6.2 L, Albumin 1.9 L, Globulin 4.3 H, Albumin/Globulin Ratio 0.4 L, Triglycerides 201 H, Cholesterol 198, LDL Cholesterol 127, VLDL Cholesterol 40, HDL Cholesterol 31 L 05/13/21 04:50: PT 35.5 H, INR 3.7 Micro: Microbiology 05/08/21 10:29 Nasal Secretion SARS-CoV-2 Antigen (Rapid) - Final SARS-CoV-2 (COVID 19) Physical Exam Const alert and no apparent distress Constitutional Narrative: Sitting in bedside recliner with Airvo in place. General Appearance: cooperative Nutritional Appearance: morbidly obese HEENT normocephalic, head/scalp atraumatic and moist oral mucous membranes Eyes PERRL, EOMs intact bilaterally and conjunctivae normal Neck supple General: trachea midline Chest inspection of chest normal Chest: symmetrical chest wall rise; Negative for crepitus Resp Auscultation: diminished lung sounds; Negative for rales, rhonchi or wheezes Cardio regular rate, regular rhythm, S1 normal heart sound and S2 normal heart sound Heart Sounds: murmur systolic II/ soft late apex GI normal to inspection, nondistended, normoactive bowel sounds Extremity no clubbing, cyanosis or edema Skin no rashes or lesions noted Neuro CN's II-XII intact bilaterally, moves all extremities and no focal motor deficits Psych cooperative and affect normal Charges/Coding Visit Charges Inpatient E&M: 30246 Subs Hosp L3
[2021-05-13] MEDS: 0.9% Saline Lock 10 ML Syringe IV (08:41)
[2021-05-13] MEDS: Enoxaparin 40 MG/0.4 ML Syringe SC ×2 (08:42→20:37)
[2021-05-13] MEDS: dexAMETHasone 10 MG/ML Vial 6 MG IV (08:43)
[2021-05-13] MEDS: Atenolol 50 MG Tablet PO ×3 (08:43→21:53)
[2021-05-13] MEDS: Aspirin 81 MG TAB.CHEW PO (08:43)
[2021-05-13] MEDS: hydrALAZINE 25 MG Tablet PO (08:43)
[2021-05-13] MEDS: CHLORHEXIDINE GLUC 2% CLOTH 1 EACH TOWELETTE TOPICAL (08:44)
--- NOTE | 2021-05-13 10:30 | NURSING ---
patient assisted to bed and placed in prone position. Curerntly on 9L of oxygen via NC
--- NOTE | 2021-05-13 12:00 | NURSING ---
Patient assisted out of the prone position and to the chair for lunch. Tolerated proned position well.
[2021-05-13 12:36] LABS: Bedside Glucose 397 mg/dL (70-110)
[2021-05-13 13:59] LABS: Pathologist Review Reviewed
[2021-05-13 14:08] LABS: Pathologist Review Reviewed
[2021-05-13 14:31] LABS: Bedside Glucose 196 mg/dL (70-110)
--- NOTE | 2021-05-13 15:17 | PN.RENAL_ITS ---
Subjective Subjective chart reviewed Objective Data Objective Data Vital Signs: Vital Signs Temp Pulse Resp BP Pulse Ox 97.8 F 63 21 H 128/91 H 92 05/13/21 12:00 05/13/21 14:00 05/13/21 14:00 05/13/21 14:00 05/13/21 14:19 Oxygen Flow Rate (L/min) 7 Oxygen Delivery Method Nasal Cannula Weight: 129 kg Body Mass Index (BMI) 38.7 Intake & Output: Intake and Output for Last 24 Hours 05/11/21 05/12/21 05/13/21 23:59 23:59 23:59 Intake Total 1350 / 1350 2230 / 2230 1010 / 1010 Output Total 1999 / 0 2775 / 2775 1050 / 1050 Balance -650 / -950 -545 / -545 -40 / -40 Lab / Micro Data Result Diagrams: 05/13/21 04:50 05/13/21 04:50 Labs: Laboratory Results - last 24 hr 05/10/21 04:50: Diff Path Review Reviewed 05/11/21 05:15: Diff Path Review Reviewed 05/12/21 15:57: POC Glucose 385 H 05/12/21 21:21: POC Glucose 344 H 05/13/21 04:50: WBC 13.8 H, RBC 4.51 L, Hgb 14.1, Hct 42.8, MCV 94.9 H, MCH 31.3, MCHC 32.9, RDW Std Deviation 49.3 H, RDW Coeff of Geovanna 14.2, Plt Count 360, MPV 9.7, Immature Gran % (Auto) 4.900 H, Neut % (Auto) 88.1 H, Lymph % (Auto) 4.7 L, [place] % (Auto) 1.3, Eos % (Auto) 0.6, Baso % (Auto) 0.4, Absolute Neuts (auto) 12.1 H, Absolute Lymphs (auto) 0.65 L, Nucleated RBC % 0 05/13/21 04:50: Sodium 138, Potassium 5.1, Chloride 107, Carbon Dioxide 23.0, Anion Gap 8, BUN 38 H, Creatinine 1.35 H, Estim Creat Clear Calc 59.19, Est GFR (MDRD) Af Amer 68, Est GFR (MDRD) Non-Af 56 L, BUN/Creatinine Ratio 28.1 H, Glucose 196 H, Calcium 8.1 L, Total Bilirubin 0.60, AST 48 H, ALT 47, Alkaline Phosphatase 66, Total Protein 6.2 L, Albumin 1.9 L, Globulin 4.3 H, Albumin/Globulin Ratio 0.4 L, Triglycerides 201 H, Cholesterol 198, LDL Cholesterol 127, VLDL Cholesterol 40, HDL Cholesterol 31 L 05/13/21 04:50: PT 35.5 H, INR 3.7 05/13/21 07:46: POC Glucose 196 H 05/13/21 12:05: POC Glucose 397 H Micro: Microbiology 05/08/21 11:22 Blood Culture (Wb) #2 - Anticubital Right Blood Culture - Final No growth in 5 days. 05/08/21 10:33 Blood Culture (Wb) - Left Wrist Blood Culture - Final No growth in 5 days. 05/08/21 10:29 Nasal Secretion SARS-CoV-2 Antigen (Rapid) - Final SARS-CoV-2 (COVID 19) Physical Exam Narrative exam minimized due to covid Assessment & Plan Assessment/Plan (1) PROSPER (acute kidney injury): PLAN: -Nonoliguric PROSPER superimposed on CKD stage III. -PROSPER is prerenal. Elevated creatinine since 2015. Baseline creatinine ranging 1.6 to 1.9 mg/dL. 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 cardiology and pulmonary note reviewed (2) COVID-19: (3) Acute hypoxemic respiratory failure: (4) Supratherapeutic INR:
--- NOTE | 2021-05-13 16:45 | PCM.PN.HOSP ---
Subjective Subjective Patient states he is feeling better overall. He has been weaned to the 7 L heated high flow nasal cannula. He is complaining of some tongue pain especially on the left side. Objective Data Objective Data Vital Signs: Vital Signs Temp Pulse Resp BP Pulse Ox 97.8 F 60 20 H 122/63 H 95 05/13/21 12:00 05/13/21 15:00 05/13/21 15:00 05/13/21 15:00 05/13/21 15:00 Oxygen Flow Rate (L/min) 7 Oxygen Delivery Method Nasal Cannula Weight: 129 kg Body Mass Index (BMI) 38.7 Intake & Output: Intake and Output for Last 24 Hours 05/11/21 05/12/21 05/13/21 23:59 23:59 23:59 Intake Total 1350 / 1350 2230 / 2230 1010 / 1010 Output Total 1999 / 2300 2775 / 2775 1625 / 1625 Balance -650 / -950 -545 / -545 -615 / -615 Lab / Micro Data Result Diagrams: 05/13/21 04:50 05/13/21 04:50 Labs: Laboratory Results - last 24 hr 05/10/21 04:50: Diff Path Review Reviewed 05/11/21 05:15: Diff Path Review Reviewed 05/12/21 15:57: POC Glucose 385 H 05/12/21 21:21: POC Glucose 344 H 05/13/21 04:50: WBC 13.8 H, RBC 4.51 L, Hgb 14.1, Hct 42.8, MCV 94.9 H, MCH 31.3, MCHC 32.9, RDW Std Deviation 49.3 H, RDW Coeff of Geovanna 14.2, Plt Count 360, MPV 9.7, Immature Gran % (Auto) 4.900 H, Neut % (Auto) 88.1 H, Lymph % (Auto) 4.7 L, [place] % (Auto) 1.3, Eos % (Auto) 0.6, Baso % (Auto) 0.4, Absolute Neuts (auto) 12.1 H, Absolute Lymphs (auto) 0.65 L, Nucleated RBC % 0 05/13/21 04:50: Sodium 138, Potassium 5.1, Chloride 107, Carbon Dioxide 23.0, Anion Gap 8, BUN 38 H, Creatinine 1.35 H, Estim Creat Clear Calc 59.19, Est GFR (MDRD) Af Amer 68, Est GFR (MDRD) Non-Af 56 L, BUN/Creatinine Ratio 28.1 H, Glucose 196 H, Calcium 8.1 L, Total Bilirubin 0.60, AST 48 H, ALT 47, Alkaline Phosphatase 66, Total Protein 6.2 L, Albumin 1.9 L, Globulin 4.3 H, Albumin/Globulin Ratio 0.4 L, Triglycerides 201 H, Cholesterol 198, LDL Cholesterol 127, VLDL Cholesterol 40, HDL Cholesterol 31 L 05/13/21 04:50: PT 35.5 H, INR 3.7 05/13/21 07:46: POC Glucose 196 H 05/13/21 12:05: POC Glucose 397 H Micro: Microbiology 05/08/21 11:22 Blood Culture (Wb) #2 - Anticubital Right Blood Culture - Final No growth in 5 days. 05/08/21 10:33 Blood Culture (Wb) - Left Wrist Blood Culture - Final No growth in 5 days. 05/08/21 10:29 Nasal Secretion SARS-CoV-2 Antigen (Rapid) - Final SARS-CoV-2 (COVID 19) Physical Exam Const alert and oriented x3 Constitutional Narrative: Older white male sitting up in chair at the bed side, appears comfortable, watching television, nontoxic, currently on heated high flow nasal cannula Exam Limitations: no limitations Nutritional Appearance: overweight HEENT head/scalp atraumatic and moist oral mucous membranes HEENT Narrative: Mild thrush noted, Mallampati 2 Head and Scalp: normocephalic Resp no retractions and no use of accessory muscles Resp Narrative: Diminished but clear, mild tachypnea Auscultation: Negative for crackles, rales, rhonchi or wheezes Cardio regular rate, regular rhythm, S1 normal heart sound, S2 normal heart sound, no murmurs, no rub, no gallops, no clicks and no JVD GI normal to inspection, nondistended, normoactive bowel sounds, soft to palpation, non-tender and non-distended Extremity no clubbing, cyanosis or edema Peripheral Pulses: Yes pulses 2+ throughout Neuro oriented x3, CN's II-XII intact bilaterally, moves all extremities and no focal motor deficits Sensorium / Orientation: awake and alert Speech: speech normal Assessment & Plan Assessment/Plan (1) Acute hypoxemic respiratory failure: (2) COVID-19: PLAN: Acute hypoxic respiratory failure secondary to COVID-19 pneumonia -We will need to remain in isolation until 05/22/2021 -Oxygen-currently on 7 L heated high flow nasal cannula -Titrate to maintain oxygen saturations greater than 92% -Remdesivir has been completed -Continue Decadron day 5 of 10 -Continue baricitinib therapy per ID recommendations -INR remains therapeutic at 3.7(patient is on Coumadin at baseline) -Continue pulmonary toilet and mobilization -Continue prone positioning as able -Pulmonary following PROSPER on CKD stage IIIb -Nonoliguric -Serum creatinine appears to be currently at baseline -Nephrology is following -Serum baseline creatinine is 1.6-1.9 NSTEMI type II -Likely related to his COVID-19 diagnosis -Continue aspirin, nitrates as needed, beta-blockers, and antiplatelet regimen -Cardiology has evaluated the patient and recommended further cardiovascular studies once his COVID-19 has resolved -We will refer the patient to cardiology after discharge History of DVT -Patient is on Coumadin at baseline -INR is 3.7 today -INR supratherapeutic at 8.8 on admission -Patient was given vitamin K on 05/09/2021 -Continue to check daily INR -Stop prophylactic dose Lovenox DM-2 -Blood sugars have been markedly elevated secondary to Decadron use -Lovenox increased to 45 units twice daily by 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
[2021-05-13] MEDS: NYSTATIN 500,000 UNIT/5 ML UDC 500000 UNIT PO ×2 (17:37→20:38)
[2021-05-13 19:26] LABS: Bedside Glucose 377 mg/dL (70-110)
[2021-05-13] MEDS: hydrALAZINE 50 MG Tablet PO (20:38)
[2021-05-13] MEDS: Sodium Chloride 0.65% 1 SPRAY SPRAY.BTL NASAL (20:45)
[2021-05-13 21:10] LABS: Bedside Glucose 397 mg/dL (70-110)
[2021-05-14] VITALS (15 sets, daily range): BP systolic 121–164; BP diastolic 67–76; PULSE 51–83; RESP 16–20; TEMP 36.3–36.7; O2SAT 91–96
[2021-05-14] MEDS: Acetaminophen 325 MG Tablet 650 MG PO ×3 (00:09→23:49)
[2021-05-14] MEDS: Ibuprofen 400 MG Tablet PO ×2 (02:07→13:15)
[2021-05-14] MEDS: hydrALAZINE 25 MG Tablet PO (09:02)
[2021-05-14] MEDS: Aspirin 81 MG TAB.CHEW PO (09:03)
[2021-05-14] MEDS: NYSTATIN 500,000 UNIT/5 ML UDC 500000 UNIT PO ×4 (09:03→21:53)
[2021-05-14] MEDS: Atenolol 50 MG Tablet PO (09:03)
[2021-05-14 09:25] LABS: Bedside Glucose 115 mg/dL (70-110)
[2021-05-14] MEDS: Insulin Lispro 100 UNIT/ML INSULN.PEN SC ×3 (11:58→21:52)
[2021-05-14] MEDS: dexAMETHasone 10 MG/ML Vial 6 MG IV (11:58)
[2021-05-14 12:20] LABS: Bedside Glucose 305 mg/dL (70-110)
--- NOTE | 2021-05-14 12:58 | PCM.PN.INT ---
Assessment & Plan Assessment/Plan (1) COVID-19: (2) Supratherapeutic INR: (3) Acute hypoxemic respiratory failure: (4) PROSPER (acute kidney injury): PLAN: RECOMMENDATIONS: 1. Wean oxygen to maintain saturations at or above 90%. 2. Completed remdesivir. Continue to monitor liver and renal function given baricitinib. 3. Continue Decadron to complete 10-day treatment course. 4. Continue baricitinib therapy per ID recommendations. 5. Continue to hold Coumadin. Check INR daily. 6. Awake prone positioning is encouraged. 7. Increase Lantus and continue sliding scale insulin coverage. IMPRESSIONS: 1. Acute hypoxemic respiratory failure secondary to COVID-19 pneumonia The patient presented to the hospital with approximately 6 days of worsening dyspnea, cough and hypoxemia. He subsequently tested positive for coronavirus. Plan to continue heated high flow oxygen to maintain saturations at or above 90%. Plan to continue current supportive therapies including remdesivir, Decadron and baricitinib. Strongly encouraged other supportive measures such as prone positioning, incentive spirometer and Acapella. Blood sugars are significantly elevated given Decadron. Await labs. Dose with Lasix if possible. Obtain walking oximetry. Potential discharge if able to tolerate 6 L or less with ambulation. 2. Acute on chronic kidney disease Improving. Likely prerenal in etiology. Nephrology is following. Continue current supportive measures. 3. Troponin elevation Likely secondary to demand ischemia in the setting of #1. 4. History of DVT/coagulopathy Given previous supratherapeutic INR, continuing to hold Coumadin. No indication for emergent reversal. Await INR to know if dosing should be initiated. This note was generated with [employer] dictation software. It may contain incorrect words, spelling, and punctuation that were not noted in checking the note before signing. Subjective Subjective Patient subjectively feels improved compared to previous. Patient continues to have a cough with intermittent production. Patient denies any chest pain, abdominal pain, nausea or vomiting. Patient did have labs ordered for this morning. These have been missed. Unit called and confirmed. This will be addressed. Objective Data Objective Data Vital Signs: Vital Signs Temp Pulse Resp BP Pulse Ox 36.7 C 57 L 20 H 142/76 H 92 05/14/21 09:00 05/14/21 09:02 05/14/21 09:00 05/14/21 09:00 05/14/21 09:00 Oxygen Flow Rate (L/min) 5 Oxygen Delivery Method Nasal Cannula Weight: 129 kg Body Mass Index (BMI) 38.7 Intake & Output: Intake and Output for Last 24 Hours 05/12/21 05/13/21 05/14/21 23:59 23:59 23:59 Intake Total 2230 / 2230 1590 / 1590 Output Total 2775 / 2775 2275 / 2275 350 / 350 Balance -545 / -545 -685 / -685 -350 / -350 Lab / Micro Data Result Diagrams: 05/13/21 04:50 05/13/21 04:50 Labs: Laboratory Results - last 24 hr 05/10/21 04:50: Diff Path Review Reviewed 05/11/21 05:15: Diff Path Review Reviewed 05/13/21 07:46: POC Glucose 196 H 05/13/21 16:54: POC Glucose 377 H 05/13/21 20:35: POC Glucose 397 H 05/14/21 08:57: POC Glucose 115 H 05/14/21 11:54: POC Glucose 305 H Micro: Microbiology 05/08/21 11:22 Blood Culture (Wb) #2 - Anticubital Right Blood Culture - Final No growth in 5 days. 05/08/21 10:33 Blood Culture (Wb) - Left Wrist Blood Culture - Final No growth in 5 days. 05/08/21 10:29 Nasal Secretion SARS-CoV-2 Antigen (Rapid) - Final SARS-CoV-2 (COVID 19) Physical Exam Const alert and no apparent distress Constitutional Narrative: Sitting in bedside recliner with nasal cannula in place. General Appearance: cooperative Nutritional Appearance: morbidly obese HEENT normocephalic, head/scalp atraumatic and moist oral mucous membranes Eyes PERRL, EOMs intact bilaterally and conjunctivae normal Neck supple General: trachea midline Chest inspection of chest normal Chest: symmetrical chest wall rise; Negative for crepitus Resp Auscultation: diminished lung sounds; Negative for rales, rhonchi or wheezes Cardio regular rate, regular rhythm, S1 normal heart sound and S2 normal heart sound Heart Sounds: murmur systolic II/ soft late apex GI normal to inspection, nondistended, normoactive bowel sounds Extremity no clubbing, cyanosis or edema Skin no rashes or lesions noted Neuro CN's II-XII intact bilaterally, moves all extremities and no focal motor deficits Psych cooperative and affect normal Charges/Coding Visit Charges Inpatient E&M: 56853 Subs Hosp L2
[2021-05-14 13:24] LABS: Absolute Lymphocyte Count 0.65 X10^3/uL (0.83-4.51); Absolute Neutrophil Count 14.3 X10^3/uL (2.0-7.7); Basophil# 0.07 X10^3/uL; Basophil% 0.4 % (0-1); Eosinophil# 0.23 X10^3/uL; Eosinophils% 1.4 % (0-5); Hematocrit 48.3 % (40-54); Hemoglobin 15.6 g/dL (13.0-16.5); Lymphocyte # 0.65 X10^3/ul (0.83-4.51); Mean Corp Hgb Conc 32.3 g/dL (32-36); Mean Corpuscular Hgb 30.8 pg (27.0-32.0); Mean Corpuscular Volume 95.5 fL (80-94); Mean Platelet Vol. 9.4 fl (6.2-12.0); Monocyte% 1.8 % (0-10); NRBC Flagged by Analyzer 0 % (0-5); Neutrophil # 14.34 X10^3/uL (2.7-7.7); Neutrophil % 88.2 % (47-70); Platelet Count 462 K/mm3 (150-450); RBC Distribution Width CV 14.3 % (11.6-14.6); RBC Distribution Width SD 49.5 fl (35.1-43.9); Red Blood Count 5.06 M/mm3 (4.6-6.2); White Blood Count 16.3 K/mm3 (4.4-11.0)
[2021-05-14 13:35] LABS: International Normalized Ratio 2.8; Prothrombin Time (Protime)PT. 29.1 SECONDS (11.7-14.9)
[2021-05-14 13:38] LABS: ALB/GLOB Ratio 0.4 RATIO (0.9-2.4); AST(SGOT) 34 U/L (15-37); Alanine Aminotransfer ALT/SGPT 52 U/L (16-61); Albumin, Serum 2.1 g/dL (3.2-5.0); Alkaline Phosphatase 76 U/L (45-117); Anion Gap 9 (5-15); BUN 38 mg/dL (7-18); BUN/Creat Ratio 28.4 RATIO (10-20); Calcium,Total 8.5 mg/dL (8.5-10.1); Chloride 106 mmol/L (98-107); Creatinine, Serum 1.34 mg/dL (0.70-1.30); EST Glomerular Filtration Rate 56 mL/min (>60); Est Glom Filt Rate - Afr Amer 68 mL/min (>60); Estimated Creatinine Clearance 59.63 ml/min; Globulin 4.7 g/dL (2.2-4.2); Glucose 261 mg/dL (74-106); Potassium 4.4 mmol/L (3.5-5.1); Protein, Total 6.8 g/dL (6.4-8.2); Sodium Level 139 mmol/L (136-145)
--- NOTE | 2021-05-14 16:42 | PN.RENAL_ITS ---
Subjective Subjective no new events Objective Data Objective Data Vital Signs: Vital Signs Temp Pulse Resp BP Pulse Ox 98.0 F 62 20 H 142/76 H 95 05/14/21 09:00 05/14/21 16:27 05/14/21 09:00 05/14/21 09:00 05/14/21 12:00 Oxygen Flow Rate (L/min) 5 Oxygen Delivery Method Nasal Cannula Weight: 129 kg Body Mass Index (BMI) 38.7 Intake & Output: Intake and Output for Last 24 Hours 05/12/21 05/13/21 05/14/21 23:59 23:59 23:59 Intake Total 2230 / 2230 1590 / 1590 480 / 480 Output Total 2775 / 2775 2275 / 2275 350 / 350 Balance -545 / -545 -685 / -685 130 / 130 Lab / Micro Data Result Diagrams: 05/14/21 13:15 05/14/21 13:15 Labs: Laboratory Results - last 24 hr 05/13/21 16:54: POC Glucose 377 H 05/13/21 20:35: POC Glucose 397 H 05/14/21 08:57: POC Glucose 115 H 05/14/21 11:54: POC Glucose 305 H 05/14/21 13:15: WBC 16.3 H, RBC 5.06, Hgb 15.6, Hct 48.3, MCV 95.5 H, MCH 30.8, MCHC 32.3, RDW Std Deviation 49.5 H, RDW Coeff of Geovanna 14.3, Plt Count 462 H, MPV 9.4, Immature Gran % (Auto) 4.200 H, Neut % (Auto) 88.2 H, Lymph % (Auto) 4.0 L, [place] % (Auto) 1.8, Eos % (Auto) 1.4, Baso % (Auto) 0.4, Absolute Neuts (auto) 14.3 H, Absolute Lymphs (auto) 0.65 L, Nucleated RBC % 0 05/14/21 13:15: Sodium 139, Potassium 4.4, Chloride 106, Carbon Dioxide 24.0, Anion Gap 9, BUN 38 H, Creatinine 1.34 H, Estim Creat Clear Calc 59.63, Est GFR (MDRD) Af Amer 68, Est GFR (MDRD) Non-Af 56 L, BUN/Creatinine Ratio 28.4 H, Glucose 261 H, Calcium 8.5, Total Bilirubin 0.60, AST 34, ALT 52, Alkaline Phosphatase 76, Total Protein 6.8, Albumin 2.1 L, Globulin 4.7 H, Albumin/Globulin Ratio 0.4 L 05/14/21 13:15: PT 29.1 H, INR 2.8 Micro: Microbiology 05/08/21 11:22 Blood Culture (Wb) #2 - Anticubital Right Blood Culture - Final No growth in 5 days. 05/08/21 10:33 Blood Culture (Wb) - Left Wrist Blood Culture - Final No growth in 5 days. 05/08/21 10:29 Nasal Secretion SARS-CoV-2 Antigen (Rapid) - Final SARS-CoV-2 (COVID 19) Physical Exam Narrative exam minimized due to covid Assessment & Plan Assessment/Plan (1) PROSPER (acute kidney injury): PLAN: -Nonoliguric PROSPER superimposed on CKD stage III. -PROSPER is prerenal. Elevated creatinine since 2015. Baseline creatinine ranging 1.6 to 1.9 mg/dL. 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 pulmonary note reviewed cr has been stable (2) COVID-19: (3) Acute hypoxemic respiratory failure: (4) Supratherapeutic INR:
[2021-05-14 17:11] LABS: Bedside Glucose 362 mg/dL (70-110)
--- NOTE | 2021-05-14 17:24 | PCM.PN.HOSP ---
Subjective Subjective Patient states he is feeling great. He has been weaned to 2 L nasal cannula. I did discuss with him that he remained stable next 24 hours we would look at discharging him tomorrow. He is pleased with that. Objective Data Objective Data Vital Signs: Vital Signs Temp Pulse Resp BP Pulse Ox 97.5 F L 83 18 152/72 H 96 05/14/21 16:39 05/14/21 16:39 05/14/21 16:39 05/14/21 16:39 05/14/21 16:39 Oxygen Flow Rate (L/min) 2 Oxygen Delivery Method Nasal Cannula Weight: 129 kg Body Mass Index (BMI) 38.7 Intake & Output: Intake and Output for Last 24 Hours 05/12/21 05/13/21 05/14/21 23:59 23:59 23:59 Intake Total 2230 / 2230 1590 / 1590 480 / 480 Output Total 2775 / 2775 2275 / 2275 350 / 350 Balance -545 / -545 -685 / -685 130 / 130 Lab / Micro Data Result Diagrams: 05/14/21 13:15 05/14/21 13:15 Labs: Laboratory Results - last 24 hr 05/13/21 16:54: POC Glucose 377 H 05/13/21 20:35: POC Glucose 397 H 05/14/21 08:57: POC Glucose 115 H 05/14/21 11:54: POC Glucose 305 H 05/14/21 13:15: WBC 16.3 H, RBC 5.06, Hgb 15.6, Hct 48.3, MCV 95.5 H, MCH 30.8, MCHC 32.3, RDW Std Deviation 49.5 H, RDW Coeff of Geovanna 14.3, Plt Count 462 H, MPV 9.4, Immature Gran % (Auto) 4.200 H, Neut % (Auto) 88.2 H, Lymph % (Auto) 4.0 L, [place] % (Auto) 1.8, Eos % (Auto) 1.4, Baso % (Auto) 0.4, Absolute Neuts (auto) 14.3 H, Absolute Lymphs (auto) 0.65 L, Nucleated RBC % 0 05/14/21 13:15: Sodium 139, Potassium 4.4, Chloride 106, Carbon Dioxide 24.0, Anion Gap 9, BUN 38 H, Creatinine 1.34 H, Estim Creat Clear Calc 59.63, Est GFR (MDRD) Af Amer 68, Est GFR (MDRD) Non-Af 56 L, BUN/Creatinine Ratio 28.4 H, Glucose 261 H, Calcium 8.5, Total Bilirubin 0.60, AST 34, ALT 52, Alkaline Phosphatase 76, Total Protein 6.8, Albumin 2.1 L, Globulin 4.7 H, Albumin/Globulin Ratio 0.4 L 05/14/21 13:15: PT 29.1 H, INR 2.8 05/14/21 16:38: POC Glucose 362 H Micro: Microbiology 05/08/21 11:22 Blood Culture (Wb) #2 - Anticubital Right Blood Culture - Final No growth in 5 days. 05/08/21 10:33 Blood Culture (Wb) - Left Wrist Blood Culture - Final No growth in 5 days. 05/08/21 10:29 Nasal Secretion SARS-CoV-2 Antigen (Rapid) - Final SARS-CoV-2 (COVID 19) Physical Exam Narrative Const alert and oriented x3 Constitutional Narrative: Older white male sitting up in chair at the bed side, appears comfortable, watching television, nontoxic, currently on 2 L nasal cannula Exam Limitations: no limitations Nutritional Appearance: overweight HEENT head/scalp atraumatic and moist oral mucous membranes HEENT Narrative: Mild thrush noted Head and Scalp: normocephalic Resp normal respiratory effort, no retractions, no use of accessory muscles and clear to auscultation bilaterally Resp Narrative: Respiratory rate has normalized Auscultation: Negative for crackles, rales, rhonchi or wheezes Cardio regular rate, regular rhythm, S1 normal heart sound, S2 normal heart sound, no murmurs, no rub, no gallops, no clicks and no JVD GI normal to inspection, nondistended, normoactive bowel sounds, soft to palpation, non-tender and non-distended Extremity no clubbing, cyanosis or edema Peripheral Pulses: Yes pulses 2+ throughout Neuro oriented x3 and moves all extremities Sensorium / Orientation: awake and alert Speech: speech normal Psych affect normal Assessment & Plan Assessment/Plan (1) Acute hypoxemic respiratory failure: (2) COVID-19: PLAN: Acute hypoxic respiratory failure secondary to COVID-19 pneumonia -We will need to remain in isolation until 05/22/2021 -Oxygen-currently on 2 L nasal cannula -Titrate to maintain oxygen saturations greater than 92% -Remdesivir has been completed -Continue Decadron day 6 -Continue baricitinib therapy per ID recommendations -INR remains therapeutic at 2.8 (patient is on Coumadin at baseline) -Continue pulmonary toilet and mobilization -Recommend vaccination after patient has completed quarantine -Stable will evaluate ambulatory pulse ox in a.m. in preparation for discharge -Pulmonary following PROSPER on CKD stage IIIb -Nonoliguric -Serum creatinine appears to be currently at baseline -Nephrology is following -Serum baseline creatinine is 1.6-1.9 NSTEMI type II -Likely related to his COVID-19 diagnosis -Continue aspirin, nitrates as needed, beta-blockers, and antiplatelet regimen -Cardiology has evaluated the patient and recommended further cardiovascular studies once his COVID-19 has resolved -We will refer the patient to cardiology after discharge History of DVT -Restart home Coumadin dose today -INR is 2.8 today -INR supratherapeutic at 8.8 on admission -Patient was given vitamin K on 05/09/2021 -Continue to check daily INR DM-2 -Blood sugars have been markedly elevated secondary to Decadron use -Continue Lantus 45 units twice daily -Reevaluate tomorrow after 24 hours at increased dose yesterday -Continue sliding scale -Continue Accu-Cheks Hypertension -Continue atenolol -Continue hydralazine -May be able to reinitiate losartan if serum creatinine remains stable -Aldactone remains on hold Hyperlipidemia -Patient is on red yeast rice at baseline -No documented statin intolerances -Lipids from the short morning show a total cholesterol of 198, and LDL of 127, and an HDL of 31 -Continue Lipitor 20 mg at at bedtime for goal LDL less than 100 DVT prophylaxis -Fully anticoagulated CODE STATUS -Full code Charges/Coding Visit Charges Inpatient E&M: 90230 Subs Hosp L2
[2021-05-14] MEDS: Jantoven 2 MG Tablet (18:30)
[2021-05-14] MEDS: Atorvastatin Calcium 20 MG Tablet PO (21:52)
[2021-05-14] MEDS: hydrALAZINE 50 MG Tablet PO (21:53)
[2021-05-14 22:15] LABS: Bedside Glucose 353 mg/dL (70-110)
--- NOTE | 2021-05-14 22:31 | NURSING ---
Atenolol was held tonight with hs medications d/t heart rate of 58
[2021-05-15] VITALS (10 sets, daily range): BP systolic 107–150; BP diastolic 71–97; PULSE 57–65; RESP 16–18; TEMP 36.4–36.5; O2SAT 86–96
[2021-05-15] MEDS: Ibuprofen 400 MG Tablet PO ×2 (03:25→14:36)
[2021-05-15] MEDS: Insulin Lispro 100 UNIT/ML INSULN.PEN SC ×2 (06:35→10:45)
[2021-05-15 06:56] LABS: Bedside Glucose 152 mg/dL (70-110)
[2021-05-15 07:44] LABS: Absolute Lymphocyte Count 0.63 X10^3/uL (0.83-4.51); Absolute Neutrophil Count 13.8 X10^3/uL (2.0-7.7); Basophil# 0.06 X10^3/uL; Basophil% 0.4 % (0-1); Eosinophil# 0.03 X10^3/uL; Eosinophils% 0.2 % (0-5); Hematocrit 45.3 % (40-54); Lymphocyte # 0.63 X10^3/ul (0.83-4.51); Mean Corp Hgb Conc 33.1 g/dL (32-36); Mean Corpuscular Hgb 30.9 pg (27.0-32.0); Mean Corpuscular Volume 93.2 fL (80-94); Mean Platelet Vol. 9.5 fl (6.2-12.0); Monocyte# 0.47 X10^3/uL; NRBC Flagged by Analyzer 0 % (0-5); Neutrophil # 13.84 X10^3/uL (2.7-7.7); Neutrophil % 88.8 % (47-70); Platelet Count 408 K/mm3 (150-450); RBC Distribution Width SD 47.6 fl (35.1-43.9); Red Blood Count 4.86 M/mm3 (4.6-6.2); White Blood Count 15.6 K/mm3 (4.4-11.0)
[2021-05-15 08:12] LABS: Anion Gap 8 (5-15); BUN 38 mg/dL (7-18); BUN/Creat Ratio 32.5 RATIO (10-20); Calcium,Total 8.9 mg/dL (8.5-10.1); Chloride 108 mmol/L (98-107); Creatinine, Serum 1.17 mg/dL (0.70-1.30); EST Glomerular Filtration Rate 66 mL/min (>60); Est Glom Filt Rate - Afr Amer 80 mL/min (>60); Estimated Creatinine Clearance 68.29 ml/min; Glucose 146 mg/dL (74-106); Potassium 4.2 mmol/L (3.5-5.1); Sodium Level 139 mmol/L (136-145)
[2021-05-15] MEDS: Magnesium Hydroxide 30 ML UDC PO (08:47)
[2021-05-15] MEDS: Acetaminophen 325 MG Tablet 650 MG PO (08:47)
[2021-05-15] MEDS: dexAMETHasone 10 MG/ML Vial 6 MG IV (08:48)
[2021-05-15] MEDS: NYSTATIN 500,000 UNIT/5 ML UDC 500000 UNIT PO ×2 (08:48→15:13)
[2021-05-15] MEDS: hydrALAZINE 25 MG Tablet PO (08:50)
[2021-05-15] MEDS: Aspirin 81 MG TAB.CHEW PO (08:51)
[2021-05-15] MEDS: Atenolol 50 MG Tablet PO (08:51)
--- NOTE | 2021-05-15 09:42 | PCM.PN.INT ---
Assessment & Plan Assessment/Plan (1) COVID-19: (2) Supratherapeutic INR: (3) Acute hypoxemic respiratory failure: (4) PROSPER (acute kidney injury): PLAN: RECOMMENDATIONS: 1. Wean oxygen to maintain saturations at or above 90%. 2. Completed remdesivir. Continue to monitor liver and renal function given baricitinib. 3. Continue Decadron to complete 10-day treatment course. 4. Continue baricitinib therapy only while hospitalized. This can be discontinued on discharge. 5. Continue to hold Coumadin. Check INR daily. 6. Awake prone positioning is encouraged. 7. Walking oximetry. Discharge if able to tolerate 6 L or less 8. If discharged, patient can follow-up in our office in 4 to 6 weeks IMPRESSIONS: 1. Acute hypoxemic respiratory failure secondary to COVID-19 pneumonia The patient presented to the hospital with approximately 6 days of worsening dyspnea, cough and hypoxemia. He subsequently tested positive for coronavirus. Plan to continue heated high flow oxygen to maintain saturations at or above 90%. Plan to completing current supportive therapies including remdesivir, Decadron and baricitinib. Baricitinib does not need to be continued as an outpatient. Strongly encouraged other supportive measures such as prone positioning, incentive spirometer and Acapella. Obtain walking oximetry. Potential discharge if able to tolerate 6 L or less with ambulation. Patient should follow-up in our office in 4 to 6 weeks for evaluation of supplemental oxygen. 2. Acute on chronic kidney disease Improving. Likely prerenal in etiology. Nephrology is following. Continue current supportive measures. 3. Troponin elevation Likely secondary to demand ischemia in the setting of #1. 4. History of DVT/coagulopathy Given previous supratherapeutic INR, continuing to hold Coumadin. No indication for emergent reversal. Await INR to know if dosing should be initiated. This note was generated with [employer] dictation software. It may contain incorrect words, spelling, and punctuation that were not noted in checking the note before signing. Subjective Subjective Patient feels subjectively improved. Patient is not reporting any chest pain, abdominal pain, nausea or vomiting. Patient states that exertional status is improving. Objective Data Objective Data Vital Signs: Vital Signs Temp Pulse Resp BP Pulse Ox 36.4 C L 65 18 150/72 H 86 05/15/21 08:45 05/15/21 08:50 05/15/21 08:45 05/15/21 08:45 05/15/21 09:02 Oxygen Flow Rate (L/min) [ 6 AMBULATING with Oxygen #3] Oxygen Flow Rate (L/min) [ 4 AMBULATING with Oxygen #2] Oxygen Flow Rate (L/min) [ 3 AMBULATING with Oxygen #1] Oxygen Flow Rate (L/min) [At 2 REST with Oxygen] Oxygen Flow Rate (L/min) 2 Oxygen Delivery Method Room Air Weight: 129.3 kg Body Mass Index (BMI) 38.7 Intake & Output: Intake and Output for Last 24 Hours 05/13/21 05/14/21 05/15/21 23:59 23:59 23:59 Intake Total 1590 / 1590 840 / 1240 700 / 700 Output Total 2275 / 2275 350 / 350 Balance -685 / -685 490 / 890 700 / 700 Lab / Micro Data Result Diagrams: 05/15/21 07:30 05/15/21 07:30 Labs: Laboratory Results - last 24 hr 05/14/21 11:54: POC Glucose 305 H 05/14/21 13:15: WBC 16.3 H, RBC 5.06, Hgb 15.6, Hct 48.3, MCV 95.5 H, MCH 30.8, MCHC 32.3, RDW Std Deviation 49.5 H, RDW Coeff of Geovanna 14.3, Plt Count 462 H, MPV 9.4, Immature Gran % (Auto) 4.200 H, Neut % (Auto) 88.2 H, Lymph % (Auto) 4.0 L, [place] % (Auto) 1.8, Eos % (Auto) 1.4, Baso % (Auto) 0.4, Absolute Neuts (auto) 14.3 H, Absolute Lymphs (auto) 0.65 L, Nucleated RBC % 0 05/14/21 13:15: Sodium 139, Potassium 4.4, Chloride 106, Carbon Dioxide 24.0, Anion Gap 9, BUN 38 H, Creatinine 1.34 H, Estim Creat Clear Calc 59.63, Est GFR (MDRD) Af Amer 68, Est GFR (MDRD) Non-Af 56 L, BUN/Creatinine Ratio 28.4 H, Glucose 261 H, Calcium 8.5, Total Bilirubin 0.60, AST 34, ALT 52, Alkaline Phosphatase 76, Total Protein 6.8, Albumin 2.1 L, Globulin 4.7 H, Albumin/Globulin Ratio 0.4 L 05/14/21 13:15: PT 29.1 H, INR 2.8 05/14/21 16:38: POC Glucose 362 H 05/14/21 21:45: POC Glucose 353 H 05/15/21 06:34: POC Glucose 152 H 05/15/21 07:30: WBC 15.6 H, RBC 4.86, Hgb 15.0, Hct 45.3, MCV 93.2, MCH 30.9, MCHC 33.1, RDW Std Deviation 47.6 H, RDW Coeff of Geovanna 14.0, Plt Count 408, MPV 9.5, Immature Gran % (Auto) 3.600 H, Neut % (Auto) 88.8 H, Lymph % (Auto) 4.0 L, [place] % (Auto) 3.0, Eos % (Auto) 0.2, Baso % (Auto) 0.4, Absolute Neuts (auto) 13.8 H, Absolute Lymphs (auto) 0.63 L, Nucleated RBC % 0 05/15/21 07:30: Sodium 139, Potassium 4.2, Chloride 108 H, Carbon Dioxide 23.0, Anion Gap 8, BUN 38 H, Creatinine 1.17, Estim Creat Clear Calc 68.29, Est GFR (MDRD) Af Amer 80, Est GFR (MDRD) Non-Af 66, BUN/Creatinine Ratio 32.5 H, Glucose 146 H, Calcium 8.9 Micro: Microbiology 05/08/21 11:22 Blood Culture (Wb) #2 - Anticubital Right Blood Culture - Final No growth in 5 days. 05/08/21 10:33 Blood Culture (Wb) - Left Wrist Blood Culture - Final No growth in 5 days. 05/08/21 10:29 Nasal Secretion SARS-CoV-2 Antigen (Rapid) - Final SARS-CoV-2 (COVID 19) Physical Exam Const alert and no apparent distress Constitutional Narrative: Sitting in bed with nasal cannula in place. General Appearance: cooperative Nutritional Appearance: morbidly obese HEENT normocephalic, head/scalp atraumatic and moist oral mucous membranes Eyes PERRL, EOMs intact bilaterally and conjunctivae normal Neck supple General: trachea midline Chest inspection of chest normal Chest: symmetrical chest wall rise; Negative for crepitus Resp Auscultation: diminished lung sounds; Negative for rales, rhonchi or wheezes Cardio regular rate, regular rhythm, S1 normal heart sound and S2 normal heart sound Heart Sounds: murmur systolic II/ soft late apex GI normal to inspection, nondistended, normoactive bowel sounds Extremity no clubbing, cyanosis or edema Skin no rashes or lesions noted Neuro CN's II-XII intact bilaterally, moves all extremities and no focal motor deficits Psych cooperative and affect normal Charges/Coding Visit Charges Inpatient E&M: 60411 Subs Hosp L2
[2021-05-15] MEDS: guaiFENesin 1,200 MG Tablet 1200 MG PO (10:45)
[2021-05-15] MEDS: Furosemide 40 MG/4 ML Vial IV (10:45)
--- NOTE | 2021-05-15 10:52 | CASEMGMT ---
Addendum entered by Charity Loving 05/15/21 11:49: Call back from [facility] and Lucia states that they do not currently have a 10L concentrator so they are unable to fulfill O2 order for pt at this time. [place] [facility] [place] at this time and call to [facility] [place] to notify that [facility] e-tank to be provided to pt. Pt updated on all, voices understanding. Gracie ARAGON CM Original Note: Per Elizabeth ARAGON, pt qualifies for 2L at rest and 6L w/ exertion at discharge. Pt states no preference for DME provider and referral faxed to [facility]. Call placed to [facility] to notify of referral, d/c today, and pt will need e-tank delivered to [facility], voices understanding. Pt updated on home oxygen process and states no further concerns/needs with going home at discharge. IMM(medicare rights form) explained to pt, voices understanding and signs form. Copy provided to pt and original to chart. Pt states 'I want to get out of here, I can't wait to go home.' Pt voices no further questions/concerns/needs. Gracie ARAGON CM
[2021-05-15 10:55] LABS: Bedside Glucose 346 mg/dL (70-110)
--- NOTE | 2021-05-15 15:14 | PCM.DC.SUM ---
Providers Date of Admission: 05/08/21 Primary Care Physician: Dr. Enzo Jasso MD Consultations 05/08/21 12:31 Consult: Infectious Disease Routine Consulting Provider: Yosef Luke Reason for Consult: covid EMERGENT Consult: No MD Notified: Yes Date Notified: 05/08/21 Time Notified: 12:32 Method of Notification: in person Consult: Statistical Reporting Analyst / Pulmonary Medicine Routine Consulting Provider: Pulmonary Medicine [facility] Reason for Consult: resp failure EMERGENT Consult: No MD Notified: Yes Date Notified: 05/08/21 Time Notified: 12:32 Method of Notification: phone Consult: Nephrology Routine Consulting Provider: Megan Shankar Reason for Consult: prosper EMERGENT Consult: No Notified: Yes Date Notified: 05/08/21 Time Notified: 12:32 Method of Notification: Verbal 05/09/21 10:59 Consult: Cardiology Routine Consulting Provider: Guille Llanos Reason for Consult: elevated troponin EMERGENT Consult: No MD Notified: Yes Date Notified: 05/09/21 Time Notified: 18:44 Method of Notification: Text Reason For Visit: ACUTE HYPOXIC RESPIRATORY FAILURE SECONDARY TO Diagnosis Discharge Diagnosis (1) COVID-19: Status: Acute Code(s): U07.1 - COVID-19 (2) Supratherapeutic INR: Status: Acute Code(s): R79.1 - Abnormal coagulation profile (3) Acute hypoxemic respiratory failure: Status: Acute Code(s): J96.01 - Acute respiratory failure with hypoxia (4) PROSPER (acute kidney injury): Status: Acute Code(s): N17.9 - Acute kidney failure, unspecified Medications at Discharge Home Medications acarbose [Precose] 50 - 100 mg PO TIDCM 11/12/16 atenolol 50 mg PO BID 11/12/16 coenzyme Q10 [Co Q-10] 100 mg PO DAILY 11/12/16 dulaglutide [Trulicity] 0.5 ml SQ WE 11/12/16 hydralazine 25 mg PO DAILY 11/12/16 losartan 100 mg PO QHS 11/12/16 magnesium oxide 400 mg PO DAILY 11/12/16 cinnamon bark 500 mg PO BID 05/20/19 furosemide 20 mg PO DAILY 05/20/19 glimepiride 4 mg PO BID 05/20/19 selenium 200 mcg PO DAILY 05/20/19 spironolactone 50 mg PO DAILY 05/20/19 warfarin 7 mg PO DAILY 05/20/19 ascorbic acid (vitamin C) [Vitamin C] 1 g PO DAILY 05/08/21 cholecalciferol (vitamin D3) [Vitamin D3] 50 mcg PO DAILY 05/08/21 empagliflozin [Jardiance] 25 mg PO DAILY 05/08/21 hydralazine 50 mg PO QHS 05/08/21 icosapent ethyl [Vascepa] 2 g PO BID 05/08/21 multivitamin 1 tab PO DAILY 05/08/21 pioglitazone 15 - 30 mg PO DAILY 05/08/21 psyllium husk 3 g PO BID 05/08/21 vitamin K2 100 mcg PO DAILY 05/08/21 zinc 50 mg PO DAILY 05/08/21 aspirin 81 mg PO BREAKFAST #0 tab 05/15/21 atorvastatin 20 mg PO QHS #30 tab 05/15/21 dexamethasone [Decadron] 6 mg PO DAILY #2 tab 05/15/21 Hospital Course Operations None Summary of Care Provided Minutes Spent on Discharge: 41 Hospital Course: Mr. Sewell is a 70-year-old white male who presented to the emergency department on 05/08/2021 with a chief complaint of shortness of breath. His symptoms started approximately 5 days prior to presentation with upper respiratory symptoms. He woke up on the morning of his presentation with significant shortness of breath, cough and was found in the emergency department to have hypoxia with an oxygen saturation of 70% on room air. An x-ray obtained in the ED showed patchy bilateral alveolar infiltrates and he was admitted to the intensive care unit for further management. He was placed on Decadron and remdesivir as well as baricitinib during his hospitalization. On admission his troponin was found to be elevated and therefore cardiology was consulted. He was started on a baby aspirin and his red yeast rice was converted to Lipitor 20 mg at at bedtime prior to discharge. The patient had no EKG changes and it was felt that was most likely a type II NSTEMI related to his hypoxia and COVID-19 infection but cardiology did want outpatient follow-up for likely noninvasive cardiac testing after discharge. He was referred to see Dr. Corcoran once he is out of quarantine. His course was also complicated by DKA which required an insulin drip but was remedied quite quickly with that and initiating subcu long-acting insulin. On discharge she is almost completed his Decadron and only require 2 more days and will therefore restart his home oral agents. He was warned that his blood sugars would likely be on the higher side. He also developed acute kidney injury on his CKD stage IIIb. His peak serum creatinine was 2.38 but his serum creatinine had normalized upon discharge. His baseline serum creatinine is 1.6-1.9. On admission he was also found to have a supratherapeutic INR at 8.8. His Coumadin was held until 05/14/2021 when his INR dropped to 2.8 and he was therefore restarted on his home 7 mg dose. He will require an INR on 05/16/2021 for follow-up. He did at 1 point during his hospitalization require air Vo to maintain oxygen saturations but prior to discharge had been weaned to 2 L at rest. Ambulatory pulse oximetry was assessed and the patient was found to require 2 L at rest and 6 L with ambulation. He will need follow-up with his PCP in 2 weeks, pulmonary in 4 to 6 weeks, and cardiology within a month. He was instructed to obtain an INR tomorrow. Discharge diagnoses: Acute hypoxic respiratory failure-resolving COVID-19 pneumonia PROSPER-resolved CKD stage IIIb NSTEMI type II secondary to hypoxia History of DVT Supratherapeutic INR-resolved DM-2 Hypertension Hyperlipidemia Physical Exam Narrative Const alert and oriented x3 Constitutional Narrative: Older white male sitting up in chair at the bed side, appears comfortable, watching television and talking to his on the phone, nontoxic, currently on 2 L nasal cannula General Appearance: cooperative, comfortable, well kempt and well developed Orientation / Consciousness: awake Exam Limitations: no limitations Nutritional Appearance: overweight HEENT normocephalic, head/scalp atraumatic and moist oral mucous membranes HEENT Narrative: Mildly hard of hearing, no thrush Eyes PERRL, EOMs intact bilaterally and conjunctivae normal Neck no lymphadenopathy, supple and no JVD Neck Narrative: Trachea midline no thyroid enlargement Resp normal respiratory effort, no retractions, no use of accessory muscles and clear to auscultation bilaterally Auscultation: crackles, rales, rhonchi and wheezes Cardio regular rate, regular rhythm, S1 normal heart sound, S2 normal heart sound, no murmurs, no rub, no gallops, no clicks and no JVD GI normal to inspection, nondistended, normoactive bowel sounds, soft to palpation, non-tender and non-distended Extremity no clubbing, cyanosis or edema Skin no rashes or lesions noted, no wounds, skin turgor normal and no jaundice Neuro oriented x3, CN's II-XII intact bilaterally and moves all extremities Sensorium / Orientation: awake and alert Speech: speech normal Psych affect normal Weight / BMI Weight Weight: 129.3 kg Body Mass Index (BMI) 38.7 ABG / Lab / Microbiology Data Result Diagrams: 05/15/21 07:30 05/15/21 07:30 Laboratory: Laboratory Results - last 24 hr 05/14/21 16:38: POC Glucose 362 H 05/14/21 21:45: POC Glucose 353 H 05/15/21 06:34: POC Glucose 152 H 05/15/21 07:30: WBC 15.6 H, RBC 4.86, Hgb 15.0, Hct 45.3, MCV 93.2, MCH 30.9, MCHC 33.1, RDW Std Deviation 47.6 H, RDW Coeff of Geovanna 14.0, Plt Count 408, MPV 9.5, Immature Gran % (Auto) 3.600 H, Neut % (Auto) 88.8 H, Lymph % (Auto) 4.0 L, [place] % (Auto) 3.0, Eos % (Auto) 0.2, Baso % (Auto) 0.4, Absolute Neuts (auto) 13.8 H, Absolute Lymphs (auto) 0.63 L, Nucleated RBC % 0 05/15/21 07:30: Sodium 139, Potassium 4.2, Chloride 108 H, Carbon Dioxide 23.0, Anion Gap 8, BUN 38 H, Creatinine 1.17, Estim Creat Clear Calc 68.29, Est GFR (MDRD) Af Amer 80, Est GFR (MDRD) Non-Af 66, BUN/Creatinine Ratio 32.5 H, Glucose 146 H, Calcium 8.9 05/15/21 10:44: POC Glucose 346 H Microbiology: Microbiology 05/08/21 11:22 Blood Culture (Wb) #2 - Anticubital Right Blood Culture - Final No growth in 5 days. 05/08/21 10:33 Blood Culture (Wb) - Left Wrist Blood Culture - Final No growth in 5 days. 05/08/21 10:29 Nasal Secretion SARS-CoV-2 Antigen (Rapid) - Final SARS-CoV-2 (COVID 19) D/C Instructions Discharge Diet: Low fat / Low cholesterol and 1800 Calorie Control Diet Discharge Activity: Return to Normal Activity Return to work on: 05/23/21 Meaningful Use Info Meaningful Use Diagnoses (Choose all that apply): None applicable Discharge Plan Admission Admit Date/Time: 05/08/21 11:32 Primary Reason for Your Visit: Acute hypoxic respiratory failure secondary to COVID-19 pneumonia Attending Provider: Daisy Pearl Primary Care Provider: Enzo Jasso Consulting Providers: Megan Shankar ; Yosef Luke ; Pascual Easley ; Alexandr Mann ; Tanvi Lyman NP ; Guille Llanos Instructions Additional Instructions / Restrictions: 1. Please continue Decadron for 2 more days--> as discussed blood sugars will remain high until this is discontinued 2. Please obtain INR tomorrow 05/16/2021 by whomever manages your Coumadin 3. Please wear oxygen as directed until instructed otherwise 4. Please follow-up with all referrals below Patient Problems: Altered Health Status related to Hospitalization Patient Goals: *Optimal Level of Health *Keep Appointments *Medication Compliance *Remain Safe Discharge Orders/Prescriptions Prescriptions: New atorvastatin 20 mg Tablet 20 mg PO QHS Qty: 30 RF: 0 aspirin 81 mg Tablet,Chewable 81 mg PO BREAKFAST Qty: 0 RF: 0 dexamethasone [Decadron] 6 mg tablet 6 mg PO DAILY Qty: 2 RF: 0 Discontinued red yeast rice 600 MG capsule 600 mg PO BID RF: 0 dexamethasone 6 mg tablet 6 mg PO DAILY RF: 0 No Action hydralazine 25 MG tablet 25 mg PO DAILY RF: 0 acarbose [Precose] 100 MG tablet 50 - 100 mg PO TIDCM RF: 0 losartan 100 MG tablet 100 mg PO QHS RF: 0 atenolol 50 MG tablet 50 mg PO BID RF: 0 coenzyme Q10 [Co Q-10] 100 MG capsule 100 mg PO DAILY RF: 0 Trulicity 1.5 MG/0.5 ML pen injector 0.5 ml SQ WE RF: 0 magnesium oxide 400 MG tablet 400 mg PO DAILY RF: 0 selenium 200 MCG tablet 200 mcg PO DAILY RF: 0 glimepiride 4 MG tablet 4 mg PO BID RF: 0 warfarin 5 MG tablet 7 mg PO DAILY RF: 0 furosemide 20 MG tablet 20 mg PO DAILY RF: 0 spironolactone 50 MG tablet 50 mg PO DAILY RF: 0 cinnamon bark 500 MG capsule 500 mg PO BID RF: 0 multivitamin Tablet 1 tab PO DAILY RF: 0 ascorbic acid (vitamin C) [Vitamin C] 1,000 mg Tablet 1 g PO DAILY RF: 0 zinc 50 mg Tablet 50 mg PO DAILY RF: 0 hydralazine 50 mg tablet 50 mg PO QHS RF: 0 pioglitazone 30 mg tablet 15 - 30 mg PO DAILY RF: 0 cholecalciferol (vitamin D3) [Vitamin D3] 25 mcg (1,000 unit) Capsule 50 mcg PO DAILY RF: 0 icosapent ethyl [Vascepa] 1 gram capsule 2 g PO BID RF: 0 Jardiance 25 mg tablet 25 mg PO DAILY RF: 0 psyllium husk 3 gram/3 gram Powder 3 g PO BID RF: 0 vitamin K2 100 mcg Capsule 100 mcg PO DAILY RF: 0 Referrals / Follow Up: Pascual Easley MD [STAFF PHYSICIAN] - See Referral Note (4 to 6 weeks) Enzo Jasso MD [Primary Care Provider] - Jewel Corcoran MD [STAFF PHYSICIAN] - Within 2 Weeks Disposition Disposition (needs filled in before D/C Order can be placed): Home, Self Care Charges/Coding Visit Charges Inpatient E&M: 64180 Disch Hosp
--- NOTE | 2021-05-15 15:35 | PCM.DC ---
Discharge Instructions Diet Discharge Diet: Low fat / Low cholesterol and 1800 Calorie Control Diet Activity Discharge Activity: Return to Normal Activity Return to work on:: 05/23/21 Follow Up Care Test Results: Test results from this visit will be discussed in further detail at your follow-up appointment, if applicable. Discharge Plan Admission Admit Date/Time: 05/08/21 11:32 Primary Reason for Your Visit: Acute hypoxic respiratory failure secondary to COVID-19 pneumonia Attending Provider: Daisy Pearl Primary Care Provider: Enzo Jasso Consulting Providers: Megan Shankar ; Yosef Luke ; Pascual Easley ; Alexandr Mann ; Tanvi Lyman NP ; Guille Llanos Instructions Additional Instructions / Restrictions: 1. Please continue Decadron for 2 more days--> as discussed blood sugars will remain high until this is discontinued 2. Please obtain INR tomorrow 05/16/2021 by whomever manages your Coumadin 3. Please wear oxygen as directed until instructed otherwise 4. Please follow-up with all referrals below Patient Problems: Altered Health Status related to Hospitalization Patient Goals: *Optimal Level of Health *Keep Appointments *Medication Compliance *Remain Safe Discharge Orders/Prescriptions Prescriptions: New atorvastatin 20 mg Tablet 20 mg PO QHS Qty: 30 RF: 0 aspirin 81 mg Tablet,Chewable 81 mg PO BREAKFAST Qty: 0 RF: 0 dexamethasone [Decadron] 6 mg tablet 6 mg PO DAILY Qty: 2 RF: 0 Discontinued red yeast rice 600 MG capsule 600 mg PO BID RF: 0 dexamethasone 6 mg tablet 6 mg PO DAILY RF: 0 No Action hydralazine 25 MG tablet 25 mg PO DAILY RF: 0 acarbose [Precose] 100 MG tablet 50 - 100 mg PO TIDCM RF: 0 losartan 100 MG tablet 100 mg PO QHS RF: 0 atenolol 50 MG tablet 50 mg PO BID RF: 0 coenzyme Q10 [Co Q-10] 100 MG capsule 100 mg PO DAILY RF: 0 Trulicity 1.5 MG/0.5 ML pen injector 0.5 ml SQ WE RF: 0 magnesium oxide 400 MG tablet 400 mg PO DAILY RF: 0 selenium 200 MCG tablet 200 mcg PO DAILY RF: 0 glimepiride 4 MG tablet 4 mg PO BID RF: 0 warfarin 5 MG tablet 7 mg PO DAILY RF: 0 furosemide 20 MG tablet 20 mg PO DAILY RF: 0 spironolactone 50 MG tablet 50 mg PO DAILY RF: 0 cinnamon bark 500 MG capsule 500 mg PO BID RF: 0 multivitamin Tablet 1 tab PO DAILY RF: 0 ascorbic acid (vitamin C) [Vitamin C] 1,000 mg Tablet 1 g PO DAILY RF: 0 zinc 50 mg Tablet 50 mg PO DAILY RF: 0 hydralazine 50 mg tablet 50 mg PO QHS RF: 0 pioglitazone 30 mg tablet 15 - 30 mg PO DAILY RF: 0 cholecalciferol (vitamin D3) [Vitamin D3] 25 mcg (1,000 unit) Capsule 50 mcg PO DAILY RF: 0 icosapent ethyl [Vascepa] 1 gram capsule 2 g PO BID RF: 0 Jardiance 25 mg tablet 25 mg PO DAILY RF: 0 psyllium husk 3 gram/3 gram Powder 3 g PO BID RF: 0 vitamin K2 100 mcg Capsule 100 mcg PO DAILY RF: 0 Referrals / Follow Up: Pascual Easley MD [STAFF PHYSICIAN] - See Referral Note (4 to 6 weeks) Enzo Jasso MD [Primary Care Provider] - Jewel Corcoran MD [STAFF PHYSICIAN] - Within 2 Weeks Disposition Disposition (needs filled in before D/C Order can be placed): Home, Self Care
--- NOTE | 2021-05-16 14:19 | CASEMGMT ---
RN CM Discharge Follow-Up Phone Call. Lace: 13 Strata: 3 Discharge Date: 05/15/21 Adm Dx: Acute hypoxic resp failure secondary to COVID Attempted discharge f/u phone call. No answer. Recording w/pt's name identified came on. Non-descript VM left for return call to RN CM if there are any questions or concerns. Phone number provided. Joann ELLIS RN CM
== END 2021-05-15 16:38 | disposition home or self-care (01) | DRG 177 ==
LOC: ED 11:38 → ICU 12:01 → PCU 05-14 06:53
PROVIDERS: Family Medicine; Nurse Practitioner Adult Health; Nurse Practitioner Family; Admitting Provider Internal Medicine; Emergency Provider Emergency Medicine; PCP Family Medicine; Visit Provider Internal Medicine
DX: U07.1 COVID-19 (principal); E11.10 Type 2 diabetes mellitus with ketoacidosis without coma; J96.01 Acute respiratory failure with hypoxia; I21.A1 Myocardial infarction type 2; J12.82 Pneumonia due to coronavirus disease 2019; N17.9 Acute kidney failure, unspecified; R79.1 Abnormal coagulation profile; Z68.38 Body mass index [BMI] 38.0-38.9, adult; E78.5 Hyperlipidemia, unspecified; E11.22 Type 2 diabetes mellitus with diabetic chronic kidney disease; N18.32 Chronic kidney disease, stage 3b; E66.9 Obesity, unspecified; I12.9 Hypertensive chronic kidney disease with stage 1 through stage 4 chronic kidney disease, or unspecified chronic kidney disease; Z86.718 Personal history of other venous thrombosis and embolism; Z79.01 Long term (current) use of anticoagulants; Z28.3 Underimmunization status; K14.6 Glossodynia; Z79.84 Long term (current) use of oral hypoglycemic drugs; Z79.899 Other long term (current) drug therapy; Z82.3 Family history of stroke
CPT/HCPCS: 36415; 71045; 80048; 80053; 80061; 81002; 82009; 82728; 82962; 83036; 83605; 83735; 83930; 84100; 84145; 84484; 85025; 85379; 85610; 85730; 86140; 87040; 87426; 87633; 87635; 93005; 94660; 99251; 99285; J7030; J7050; A4216; G0463; J1940; J2405; J7799; U0003

== ENCOUNTER 2021-05-20 09:39 | Emergency (ER) | payer MEDICARE, OTHER, SELFPAY ==
[2021-05-20 09:39] VITALS: BP 124/68; PULSE 75; RESP 18; TEMP 36.5; O2SAT 93; BMI 37.8
--- NOTE | 2021-05-20 09:55 | CT_ITS ---
STUDY: CT BRAIN WITHOUT CONTRAST REASON FOR EXAM: Male, 70 years old. Headache for 1 week with history of COVID 2 weeks ago RADIATION DOSAGE (If Supplied By Facility): CTDIvol = ( 44.99 ) mGy, DLP = ( 846.73 ) mGycm TECHNIQUE: Transaxial CT imaging of the brain was performed without administration of intravenous contrast material. Individualized dose optimization techniques were used for this CT. COMPARISON: No relevant priors. FINDINGS: Mild localized soft tissue swelling of the left parietal scalp on image 37 of series 2. Normal calvarium. Normal size ventricles and extra-axial spaces for the patient''s age. Normal white matter tracts of the cerebral hemispheres. Normal basal ganglia and thalami. Normal brainstem. Normal cerebellum. There is no intracranial hemorrhage. There are no findings of an acute ischemic infarction. There is mucoperiosteal inflammatory disease of the paranasal sinuses consistent with moderate chronic sinusitis. CT/Brain/Head without Contrast IMPRESSION: 1. No acute intracranial hemorrhage or mass effect. 2. Mild soft tissue swelling of the left parietal scalp. 3. Left worse than right paranasal sinus disease. Electronically Signed: Nakul Davis MD ([place]) at 10:50 EDT , Service support ,
--- NOTE | 2021-05-20 09:58 | EX.ED.VIS.HA ---
HPI History of Present Illness Chief Complaint: Headache Narrative Narrative: 70-year-old male presenting with headache. He states he has had this for about 2 weeks. He started having symptoms of COVID-19 on May 01. He was tested and was positive about a week later. Patient was placed on home O2 and discharged. He states that his oxygen has been coming back up. Patient is on Coumadin for history of PE and states this was last checked about a week ago and was 5. His Coumadin was changed to 3 mg p.o. daily. He has not had this rechecked. He denies chest pain, palpitations, shortness of breath. His cough is resolved. He does not have fever or chills. He states he only has a headache behind his eyes. No history of migraine headache. History was not acute in onset. Patient denies any head injury. Patient is ambulatory with stable gait. He denies dizziness. Patient also complains that his tongue and mouth feels swollen. He states he is not have any difficulty breathing or swallowing. Patient does state that at times it seems as if his vision is a little bit blurry. He states his vision is clear currently. [facility] Medical History Diabetes DVT (deep venous thrombosis) DVT (deep venous thrombosis) Hypertension Home Medications acarbose [Precose] 50 - 100 mg PO TIDCM 11/12/16 [History Last Taken 05/20/19] atenolol 50 mg PO BID 11/12/16 [History Last Taken 05/20/19] coenzyme Q10 [Co Q-10] 100 mg PO DAILY 11/12/16 [History Last Taken 05/20/19] dulaglutide [Trulicity] 0.5 ml SQ WE 11/12/16 [History Last Taken 05/18/19] hydralazine 25 mg PO DAILY 11/12/16 [History Last Taken 05/20/19] losartan 100 mg PO QHS 11/12/16 [History Last Taken 05/19/19] magnesium oxide 400 mg PO DAILY 11/12/16 [History Last Taken 05/20/19] cinnamon bark 500 mg PO BID 05/20/19 [History Last Taken 05/20/19] furosemide 20 mg PO DAILY 05/20/19 [History Last Taken 05/20/19] glimepiride 4 mg PO BID 05/20/19 [History Last Taken 05/20/19] selenium 200 mcg PO DAILY 05/20/19 [History Last Taken 05/20/19] spironolactone 50 mg PO DAILY 05/20/19 [History Last Taken 05/20/19] warfarin 7 mg PO DAILY 05/20/19 [History Last Taken 05/19/19] ascorbic acid (vitamin C) [Vitamin C] 1 g PO DAILY 05/08/21 [History Last Taken Unknown] cholecalciferol (vitamin D3) [Vitamin D3] 50 mcg PO DAILY 05/08/21 [History Last Taken Unknown] empagliflozin [Jardiance] 25 mg PO DAILY 05/08/21 [History Last Taken Unknown] hydralazine 50 mg PO QHS 05/08/21 [History Last Taken Unknown] icosapent ethyl [Vascepa] 2 g PO BID 05/08/21 [History Last Taken Unknown] multivitamin 1 tab PO DAILY 05/08/21 [History Last Taken Unknown] pioglitazone 15 - 30 mg PO DAILY 05/08/21 [History Last Taken Unknown] psyllium husk 3 g PO BID 05/08/21 [History Last Taken Unknown] vitamin K2 100 mcg PO DAILY 05/08/21 [History Last Taken Unknown] zinc 50 mg PO DAILY 05/08/21 [History Last Taken Unknown] aspirin 81 mg PO BREAKFAST #0 tab 05/15/21 [Rx Last Taken Unknown] atorvastatin 20 mg PO QHS #30 tab 05/15/21 [Rx Last Taken Unknown] dexamethasone [Decadron] 6 mg PO DAILY #2 tab 05/15/21 [Rx Last Taken Unknown] Allergy/AdvReac Type Severity Reaction Status Date / Time No Known Allergies Allergy Verified 05/20/21 09:45 Family History Father Heart disease Mother CVA (cerebral vascular accident) Surgical History History of back surgery Social History Smoking Status: Never smoker substance use type: does not use ROS ROS ED Constitutional Constitutional ED: Denies chills or fever(s) Eyes Eyes: Reports blurry vision bilateral ENT ENT ED: Denies rhinorrhea or sore throat Cardiovascular Cardiovascular: Denies chest pain or palpitations Respiratory/Chest Respiratory/Chest: Denies cough or dyspnea Gastrointestinal Gastrointestinal: Denies abdominal pain, nausea or vomiting Genitourinary Genitourinary ED: Denies dysuria or hematuria Musculoskeletal Musculoskeletal: Denies arthralgias or myalgias Integumentary Denies Abrasions or rash Neurologic Neurologic: Reports headache(s); Denies paresthesias EXAM Physical Exam Const Vital Signs: 05/20/21 09:39 05/20/21 11:48 Temperature 97.7 F L Temperature Source Oral Pulse Rate 75 58 L Respiratory Rate 18 16 Blood Pressure 124/68 H 153/89 H Blood Pressure Mean 86 110 Pulse Ox 93 92 Oxygen Delivery Method Room Air Room Air Positive well nourished and obese General Appearance ED: NAD; Negative for pallor Nutritional Appearance: obese HEENT Reports normocephalic and dry mucous membranes HEENT Narrative: Tongue is not swollen. Oropharynx patent without stridor. No sublingual edema. Patient tolerating his own secretions. atraumatic Mouth ED: Yes dry mucous membranes Mouth: dry mucous membranes Eyes PERRL and EOMs intact bilaterally General Eye ED: Negative for pale conjunctiva or scleral icterus Neck no lymphadenopathy and supple Resp normal respiratory effort and clear to auscultation bilaterally Cardio regular rate and regular rhythm GI non-tender and non-distended Palpation: soft Neuro oriented x3, CN's II-XII intact bilaterally and no sensory deficits noted Sensorium / Orientation: awake Motor Exam: strength 5/5 throughout Psych mental status grossly normal Skin General Skin Exam: Negative for jaundice or pallor Rashes: no rashes MDM MDM MDM Narrative Medical decision making narrative: Patient presenting with headache. He has had COVID-19 and is improving. His oxygen saturations are improving. He denies chest pain, palpitations, shortness of breath. I did obtain basic lab work which shows he has slight leukocytosis however this is lower than previous. Hemoglobin hematocrit are stable. Renal function and electrolytes are normal. Patient given Reglan and Benadryl and his headache is now much improved. CT of the brain shows no acute intracranial process. Patient will follow up with his primary care provider to ensure resolution. I feel he stable for discharge at this time. Impression: 1. History of COVID-19 pneumonitis 2. Headache Lab Data Labs: Laboratory Results - last 24 hr 05/20/21 05/20/21 05/20/21 10:13 10:13 10:13 WBC 13.2 H RBC 4.52 L Hgb 14.3 Hct 42.4 MCV 93.8 MCH 31.6 MCHC 33.7 RDW Std Deviation 48.5 H RDW Coeff of Geovanna 14.1 Plt Count 386 MPV 9.4 Immature Gran % (Auto) 1.100 H Neut % (Auto) 87.4 H Lymph % (Auto) 5.0 L [place] % (Auto) 6.1 Eos % (Auto) 0.2 Baso % (Auto) 0.2 Absolute Neuts (auto) 11.6 H Absolute Lymphs (auto) 0.66 L Nucleated RBC % 0 PT 31.0 H INR 3.1 Sodium 135 L Potassium 4.1 Chloride 102 Carbon Dioxide 25.0 Anion Gap 8 BUN 24 H Creatinine 1.25 Estim Creat Clear Calc 63.92 Est GFR (MDRD) Af Amer 74 Est GFR (MDRD) Non-Af 61 BUN/Creatinine Ratio 19.2 Glucose 208 H Calcium 8.7 Total Bilirubin 0.70 AST 19 ALT 30 Alkaline Phosphatase 67 Total Protein 6.2 L Albumin 1.9 L Globulin 4.3 H Albumin/Globulin Ratio 0.4 L Radiography Diagnostic Testing: Radiology Impression Brain CT 05/20/21 09:55 IMPRESSION: 1. No acute intracranial hemorrhage or mass effect. 2. Mild soft tissue swelling of the left parietal scalp. 3. Left worse than right paranasal sinus disease. Electronically Signed: Nakul Davis MD (Brooks) at 10:50 EDT , Service support , Discharge Plan Triage Chief Complaint: Headache ED Provider: Josue Orellana Dx/Rx/DC Orders Instructions: Coronavirus Disease 2019 (COVID-19): Caring for Yourself or Others, ED Headache Unspecified Prescriptions: No Action hydralazine 25 MG tablet 25 mg PO DAILY RF: 0 acarbose [Precose] 100 MG tablet 50 - 100 mg PO TIDCM RF: 0 losartan 100 MG tablet 100 mg PO QHS RF: 0 atenolol 50 MG tablet 50 mg PO BID RF: 0 coenzyme Q10 [Co Q-10] 100 MG capsule 100 mg PO DAILY RF: 0 Trulicity 1.5 MG/0.5 ML pen injector 0.5 ml SQ WE RF: 0 magnesium oxide 400 MG tablet 400 mg PO DAILY RF: 0 selenium 200 MCG tablet 200 mcg PO DAILY RF: 0 glimepiride 4 MG tablet 4 mg PO BID RF: 0 warfarin 5 MG tablet 7 mg PO DAILY RF: 0 furosemide 20 MG tablet 20 mg PO DAILY RF: 0 spironolactone 50 MG tablet 50 mg PO DAILY RF: 0 cinnamon bark 500 MG capsule 500 mg PO BID RF: 0 multivitamin Tablet 1 tab PO DAILY RF: 0 ascorbic acid (vitamin C) [Vitamin C] 1,000 mg Tablet 1 g PO DAILY RF: 0 zinc 50 mg Tablet 50 mg PO DAILY RF: 0 hydralazine 50 mg tablet 50 mg PO QHS RF: 0 pioglitazone 30 mg tablet 15 - 30 mg PO DAILY RF: 0 cholecalciferol (vitamin D3) [Vitamin D3] 25 mcg (1,000 unit) Capsule 50 mcg PO DAILY RF: 0 icosapent ethyl [Vascepa] 1 gram capsule 2 g PO BID RF: 0 Jardiance 25 mg tablet 25 mg PO DAILY RF: 0 psyllium husk 3 gram/3 gram Powder 3 g PO BID RF: 0 vitamin K2 100 mcg Capsule 100 mcg PO DAILY RF: 0 atorvastatin 20 mg Tablet 20 mg PO QHS Qty: 30 RF: 0 aspirin 81 mg Tablet,Chewable 81 mg PO BREAKFAST Qty: 0 RF: 0 dexamethasone [Decadron] 6 mg tablet 6 mg PO DAILY Qty: 2 RF: 0 Primary Care Provider: Enzo Jasso Referrals: Enzo Jasso MD [Primary Care Provider] - Disposition Disposition: Home, Self Care
[2021-05-20 10:20] LABS: Absolute Lymphocyte Count 0.66 X10^3/uL (0.83-4.51); Absolute Neutrophil Count 11.6 X10^3/uL (2.0-7.7); Basophil# 0.02 X10^3/uL; Basophil% 0.2 % (0-1); Eosinophil# 0.02 X10^3/uL; Eosinophils% 0.2 % (0-5); Hematocrit 42.4 % (40-54); Hemoglobin 14.3 g/dL (13.0-16.5); Lymphocyte # 0.66 X10^3/ul (0.83-4.51); Mean Corp Hgb Conc 33.7 g/dL (32-36); Mean Corpuscular Hgb 31.6 pg (27.0-32.0); Mean Corpuscular Volume 93.8 fL (80-94); Mean Platelet Vol. 9.4 fl (6.2-12.0); Monocyte% 6.1 % (0-10); NRBC Flagged by Analyzer 0 % (0-5); Neutrophil # 11.56 X10^3/uL (2.7-7.7); Neutrophil % 87.4 % (47-70); Platelet Count 386 K/mm3 (150-450); RBC Distribution Width CV 14.1 % (11.6-14.6); RBC Distribution Width SD 48.5 fl (35.1-43.9); Red Blood Count 4.52 M/mm3 (4.6-6.2); White Blood Count 13.2 K/mm3 (4.4-11.0)
[2021-05-20] MEDS: DiphenhydrAMINE 50 MG/ML Syringe 25 MG IV (10:20)
[2021-05-20] MEDS: Metoclopramide 10 MG/2 ML Vial IV (10:20)
[2021-05-20 10:28] LABS: International Normalized Ratio 3.1
[2021-05-20 10:44] LABS: ALB/GLOB Ratio 0.4 RATIO (0.9-2.4); AST(SGOT) 19 U/L (15-37); Alanine Aminotransfer ALT/SGPT 30 U/L (16-61); Albumin, Serum 1.9 g/dL (3.2-5.0); Alkaline Phosphatase 67 U/L (45-117); Anion Gap 8 (5-15); BUN 24 mg/dL (7-18); BUN/Creat Ratio 19.2 RATIO (10-20); Calcium,Total 8.7 mg/dL (8.5-10.1); Chloride 102 mmol/L (98-107); Creatinine, Serum 1.25 mg/dL (0.70-1.30); EST Glomerular Filtration Rate 61 mL/min (>60); Est Glom Filt Rate - Afr Amer 74 mL/min (>60); Estimated Creatinine Clearance 63.92 ml/min; Globulin 4.3 g/dL (2.2-4.2); Glucose 208 mg/dL (74-106); Potassium 4.1 mmol/L (3.5-5.1); Protein, Total 6.2 g/dL (6.4-8.2); Sodium Level 135 mmol/L (136-145)
[2021-05-20 11:48] VITALS: BP 153/89; PULSE 58; RESP 16; O2SAT 92
[2021-05-20 12:15] VITALS: BP 132/77; PULSE 64; RESP 16; O2SAT 98
== END 2021-05-20 12:16 | disposition home or self-care (01) ==
PROVIDERS: Emergency Provider Student in an Organized Health Care Education/Training Program; PCP Family Medicine
DX: R51.9 Headache, unspecified (principal); E66.9 Obesity, unspecified; E11.9 Type 2 diabetes mellitus without complications; I10 Essential (primary) hypertension; Z86.16 Personal history of COVID-19; Z86.718 Personal history of other venous thrombosis and embolism; Z79.01 Long term (current) use of anticoagulants; Z99.81 Dependence on supplemental oxygen; Z86.711 Personal history of pulmonary embolism
CPT/HCPCS: 70450; 80053; 85025; 85610; 99285; A4216

== ENCOUNTER → 2021-05-25 09:41 | Outpatient (CLI) | payer MEDICARE, OTHER, SELFPAY | PROVIDERS: PCP Family Medicine; Referring Provider Otolaryngology Otolaryngology/Facial Plastic Surgery; Visit Provider Otolaryngology Otolaryngology/Facial Plastic Surgery | DX: J01.90 Acute sinusitis, unspecified (principal) | CPT/HCPCS: 87070; 87077; 87186; 87205 ==

== ENCOUNTER → 2021-06-21 08:07 | Outpatient (CLI) | payer MEDICARE, OTHER, SELFPAY ==
[2021-06-21 10:12] LABS: International Normalized Ratio 1.3; Prothrombin Time (Protime)PT. 15.7 SECONDS (11.7-14.9)
== END ==
PROVIDERS: PCP Family Medicine; Referring Provider Family Medicine; Visit Provider Family Medicine
DX: I82.409 Acute embolism and thrombosis of unspecified deep veins of unspecified lower extremity (principal); Z79.01 Long term (current) use of anticoagulants
CPT/HCPCS: 36415; 85610

== ENCOUNTER → 2021-07-22 15:49 | Outpatient (CLI) | payer MEDICARE, OTHER, SELFPAY | LOC: LAB 15:51 → LABSPEC 15:52 | PROVIDERS: PCP Family Medicine; Visit Provider Otolaryngology Otolaryngology/Facial Plastic Surgery | DX: J32.8 Other chronic sinusitis (principal) | CPT/HCPCS: 87070; 87205 ==

== ENCOUNTER 2021-07-30 07:00 | Outpatient (RCR) | payer MEDICARE, OTHER, SELFPAY ==
--- NOTE | 2021-07-02 08:02 | HP.PTEVAL_ITS ---
Patient's Visit Information BRENDON DAVID is a 70 year old M referred to Physical Therapy by Dr. Enzo Jasso MD with a diagnosis of POST COVID 19 FATIGUE AND MUSCLE WEAKNESS. Date of Evaluation: 07/02/21 Physical Therapist: Carlos Flores, PT, Cert MDT, OCS - Visit Plan Frequency: 2x /Week Duration: 4 Weeks Plan: PT INTERVENTIONS ENDURANCE PROGRAM,BLE STRENGTHENING,BALANCE PROGRANM AND FUNCTIONA STRENGTHENING - Subjective This 70 y/o male presents to physical therapy with post Covid 19 fatigue and muscle weakness. Patient developed Covid Apr 25 ,axnd was hospitalized for 9 days . Patient was on 02 at hospital didn't have to be on incubated. Patient was d/c with fww to home May 02. Patient used 02 2 L02 for 10 days. Patient conts to have weakness in legs difficulty with extended walking affects housework tasks and ADL's. Patient is unable to do steps and squat. Also has difficulty with steps. Denies paresthesia/tingling. Patient has difficulty sleeping. Patient condition affects ADLS and function. SOCIAL: . 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 GAIT: reciprocal pattern slow randell unsteady. BALANCE: fair+. AROM: WFL. FLEXABLITY: hams mod tight. MMT: quad/hams 3+/5,hip flexion 2/5,hip abd 2+/5,ankle DF 4-/5,G-S 3/5. STAIRS: unable. SIT- STAND: BUE. 02 SATS: 96% - Balance/Special Test Scores Functional Gait Assessment Score: 10 % Disability: 66.6700 CATSIB Score (Max score 120 seconds): 45 Lower Extremity Functional Score: 9 - Goals Goal 1:: Patient to be I with HEP for strengthening Goal Time Frame: 4-6 Weeks Goal 2:: Patient increase strength quads/hams 4-/5 ,hip 3+/5 to improve transfers sit-stand Goal Time Frame: 4-6 Weeks Goal 3:: Patient to improve functional endurance to good- 96%> 02 sats Goal Time Frame: 4-6 Weeks Goal 4:: Patient improve CATSIB by 10 points to improve gait Goal Time Frame: 6-8 Weeks Goal 5:: Patient to improve functional gait assessment score by 10 points to improve gait Goal Time Frame: 4-6 Weeks Goal 6:: Patient to improve LFES score by 10 points to improve gait and QOL. - Rehabilitation Potential Physical Therapy Diagnosis: Patient developed COVID with weakness in legs, decrease balance ,poor endurance, gait impairs function and ADL'S thus benefit from skilled PT Rehabilitation Potential: Good - Anticipated Interventions Patient/Client Instruction: Educate patient on: Condition, Plan of Care For the Purpose of:: To decrease pain, To increase ROM, To improve muscle performance and motor function, To improve ability to perform ADL's, To increase tolerance to activity/condition/position, To improve performance and independence with ADL's, To improve ability of physical actions for home/community/work/leisure, To improve gait and locomotor functions, To improve endurance, To assume or resume ADL's Therapeutic Exercise to Include: Strength training, Power training, Endurance training, Balance training, Flexibilty training, Gait and locomotor training Comment: BLE For the Purpose of:: To improve muscle performance and motor function, To improve ability to perform ADL's, To increase tolerance to activity/condition/position, To improve performance and independence with ADL's, To improve ability of physical actions for home/community/work/leisure, To improve gait and locomotor functions, To improve endurance, To improve balance, To improve safety with gait, To assume or resume ADL's Thank you for the opportunity to evaluate your patient. For Medicare and Medicare HMO plans, please review the plan of care and approve it. It will need to be FAXED BACK to us at [phone] for Medicare purposes. For Medicare only, by signing this I certify the plan of care. Please let me know if there are questions or concerns regarding this plan of care. Physician Signature: Date:
--- NOTE | 2021-07-30 07:30 | HP.PTDCSUM ---
It has been my pleasure to treat BRENDON DAVID referred by Dr. Enzo Jasso MD, with the diagnosis of POST COVID 19 FATIGUE AND MUSCLE WEAKNESS for a total of 9 visit(s). Discharge Date: 07/30/21 Please see the following information for a summary of their discharge status. Subjective: Ready for d/c ..working % Improvement: 60 Objective/Function: POSTURE: mild forward posture. GAIT: reciprocal pattern mild forward posture slow randell. NEURO: denies paresthesia/tingling. STAIRS: ASCEND/DESECND STEPS WITH RAILS. MMT: QUADS/HAMS 4/5,HIP FLEXION 3/5,ABD 3-/5 Goal 1:: Patient to be I with HEP for strengthening Goal Progress: Progressing Goal 2:: Patient increase strength quads/hams 4-/5 ,hip 3+/5 to improve transfers sit-stand Goal Progress: Goal Met Goal 3:: Patient to improve functional endurance to good- 96%> 02 sats Goal 4:: Patient improve CATSIB by 10 points to improve gait Goal Progress: Goal Met Goal 5:: Patient to improve functional gait assessment score by 10 points to improve gait Goal Progress: Goal Met Goal 6:: Patient to improve LFES score by 10 points to improve gait and QOL. Goal Progress: Goal Met Plan: D/C Discharge Comments: HEP If there are questions or concerns regarding this patient's physical therapy, please feel free to call me at [phone]. Thank you for the referral of this patient. Sincerely, Carlos Flores, PT, Cert MDT, OCS Balance/Gait/Functional tests - Balance/Special Test Scores Functional Gait Assessment Score: 10 % Disability: 66.6700 CATSIB Score (Max score 120 seconds): 85 Lower Extremity Functional Score: 38
== END 2021-07-30 19:00 | disposition home or self-care (01) ==
LOC: PT 07:00
PROVIDERS: PCP Family Medicine; Referring Provider Family Medicine; Visit Provider Family Medicine
DX: R53.83 Other fatigue (principal); R53.1 Weakness; Z86.16 Personal history of COVID-19
CPT/HCPCS: 97110; 97162

== ENCOUNTER 2021-11-26 07:03 | Outpatient (CLI) | payer MEDICARE, OTHER, SELFPAY ==
--- NOTE | 2021-11-26 07:06 | CT_ITS ---
STUDY: CT SOFT TISSUE NECK WITH CONTRAST REASON FOR EXAM: Male, 71 years old. Left maxillary swelling. [place] teeth removed in 2019. RADIATION DOSAGE (If Supplied By Facility): CTDIvol = ( 20.59 ) mGy, DLP = ( 648.12 ) mGycm TECHNIQUE: The patient was scanned in a multi-detector CT scanner. High resolution transaxial imaging was performed following intravenous administration of IV 100mL Isovue-300. Sagittal and coronal images were reconstructed. Individualized dose optimization techniques were used for this CT. COMPARISON: None. FINDINGS: Normal bilateral parotid glands. Normal bilateral technical training specialist spaces. Normal bilateral parapharyngeal spaces. Normal bilateral carotid spaces. Normal bilateral sublingual and submandibular glands and spaces. Normal visualized nasopharynx. Normal retropharyngeal space. Normal perivertebral space. Normal visualized bilateral faucial tonsils. The visualized tongue, tongue base and oropharynx are normal. The visualized cervical lymph nodes (levels I-) are within normal size limits, and maintain normal morphology. There is no demonstrated solid or cystic mass lesion. There is no abnormal contrast enhancement. There are 2 mildly prominent lymph nodes adjacent to the left submandibular gland, one of them measuring 8 mm and the second measuring 10 x 9 mm. Not particularly concerning in appearance or size. Normal epiglottis, bilateral vallecula and hypopharynx. The pre-epiglottic and paraglottic adipose spaces are normal. Normal visualized bilateral piriform sinuses, aryepiglottic folds, vocal cords, and arytenoid-cricoid articulations. Normal subglottic trachea. Normal bilateral lobes of the thyroid gland. Normal visualized pulmonary apices. Moderate to severe bilateral maxillary sinus disease with near complete opacification of the left sphenoid sinus as well as bilateral ethmoid paranasal sinus disease and left frontal sinus disease. Normal visualized cervical spine. CT/Soft Tissue Neck WITH Contrast IMPRESSION: 1. No acute findings. No evidence of abscess 2. 2 small lymph nodes adjacent to the left submandibular gland. 3. Diffuse paranasal sinus disease as above Electronically Signed: Kali Chopra DO at 5:25 EDT ,
--- NOTE | 2021-11-26 07:09 | CT_ITS ---
STUDY: CT BRAIN WITH AND WITHOUT CONTRAST REASON FOR EXAM: Male, 71 years old. MAXILLARY SWELLING, 2019 WISDOM TEETH PULLED-DRY SOCKET AND INFECTION AT THE TIME, DB, HTN RADIATION DOSAGE (If Supplied By Facility): CTDIvol = ( 44.99 ) mGy, DLP = ( 1693.46 ) mGycm TECHNIQUE: Transaxial CT imaging of the brain was performed pre and post contrast administration. The examination was performed with intravenous administration of IV 100mL Isovue-300. Individualized dose optimization techniques were used for this CT. COMPARISON: None. FINDINGS: Brain parenchyma is intact without focal lesions or abnormal enhancement. There is no acute intracranial hemorrhage, extra parenchymal fluid collections, mass effect, hydrocephalus or herniation. The skull is intact. Refer to CT neck same day for description of facial abnormality. CT/Brain/Head W/WO Contrast IMPRESSION: Normal brain. Electronically Signed: Terence Garcia MD at 8:38 EDT ,
[2021-11-26 07:20] LABS: CREATININE FINGERSTICK 1.1 mg/dL (0.70-1.30); EGFR FINGERSTICK > 60.0000 mL/min (>60)
== END 2021-11-26 23:59 | disposition home or self-care (01) ==
LOC: CT 07:04
PROVIDERS: PCP Family Medicine; Referring Provider Dentist Oral and Maxillofacial Surgery; Visit Provider Dentist Oral and Maxillofacial Surgery
DX: C76.0 Malignant neoplasm of head, face and neck (principal)
CPT/HCPCS: 70470; 70491; Q9967

== ENCOUNTER → 2021-12-20 | Outpatient (CLI) | payer MEDICARE, OTHER, SELFPAY ==
[2021-12-20 10:28] LABS: Absolute Lymphocyte Count 1.23 X10^3/uL (0.83-4.51); Absolute Neutrophil Count 5.2 X10^3/uL (2.0-7.7); Basophil# 0.04 X10^3/uL; Basophil% 0.5 % (0-1); Eosinophil# 0.15 X10^3/uL; Hematocrit 47.2 % (40-54); Hemoglobin 15.7 g/dL (13.0-16.5); Lymphocyte # 1.23 X10^3/ul (0.83-4.51); Lymphocyte % 16.6 % (19-41); Mean Corp Hgb Conc 33.3 g/dL (32-36); Mean Corpuscular Hgb 31.8 pg (27.0-32.0); Mean Corpuscular Volume 95.5 fL (80-94); Mean Platelet Vol. 9.7 fl (6.2-12.0); Monocyte# 0.67 X10^3/uL; NRBC Flagged by Analyzer 0 % (0-5); Neutrophil # 5.24 X10^3/uL (2.7-7.7); Neutrophil % 70.7 % (47-70); Platelet Count 309 K/mm3 (150-450); RBC Distribution Width CV 14.7 % (11.6-14.6); RBC Distribution Width SD 51.8 fl (35.1-43.9); Red Blood Count 4.94 M/mm3 (4.6-6.2); White Blood Count 7.4 K/mm3 (4.4-11.0)
[2021-12-20 10:32] LABS: International Normalized Ratio 2.1; Prothrombin Time (Protime)PT. 23.3 SECONDS (11.7-14.9)
[2021-12-20 10:43] LABS: ALB/GLOB Ratio 0.8 RATIO (0.9-2.4); AST(SGOT) 19 U/L (15-37); Alanine Aminotransfer ALT/SGPT 26 U/L (16-61); Albumin, Serum 3.4 g/dL (3.2-5.0); Alkaline Phosphatase 53 U/L (45-117); Anion Gap 7 (5-15); BUN 31 mg/dL (7-18); BUN/Creat Ratio 18.3 RATIO (10-20); Calcium,Total 8.9 mg/dL (8.5-10.1); Chloride 100 mmol/L (98-107); Creatinine, Serum 1.69 mg/dL (0.70-1.30); EST Glomerular Filtration Rate 43 mL/min (>60); Est Glom Filt Rate - Afr Amer 52 mL/min (>60); Glucose 121 mg/dL (74-106); Potassium 4.3 mmol/L (3.5-5.1); Protein, Total 7.4 g/dL (6.4-8.2); Sodium Level 136 mmol/L (136-145)
[2021-12-20 10:48] LABS: Hemoglobin A1c 7.8 % (3.8-5.6)
[2021-12-20 10:53] LABS: Microalbumin,Random Urine 18.8 mg/L (NO RANGE EST.)
== END | disposition home or self-care (01) ==
LOC: MFPLAB 08:20
PROVIDERS: PCP Family Medicine; Referring Provider Family Medicine; Visit Provider Family Medicine
DX: E11.29 Type 2 diabetes mellitus with other diabetic kidney complication (principal)
CPT/HCPCS: 36415; 80053; 82043; 82570; 83036; 85025; 85610

== ENCOUNTER → 2022-04-07 | Outpatient (CLI) | payer MEDICARE, OTHER, SELFPAY ==
--- NOTE | 2022-04-07 12:42 | CT_ITS ---
STUDY: CT MAXILLOFACIAL SINUSES REASON FOR EXAM: Male, 71 years old. Left facial swelling. History of prior sinus surgery. RADIATION DOSAGE (If Supplied By Facility): CTDIvol = ( 33.06 ) mGy, DLP = ( 825.58 ) mGycm TECHNIQUE: The patient was scanned in a multi detector CT scanner. High resolution axial imaging was performed without the administration of intravenous contrast material. Sagittal and coronal images were reconstructed. Individualized dose optimization techniques were used for this CT. COMPARISON: None. FINDINGS: FRONTAL SINUSES: Mild mucosal thickening along the posterior aspect of the frontal sinus. ETHMOIDAL SINUSES: Partial opacification of the ethmoid sinuses worse on the right side. MAXILLARY SINUSES: Opacification of both maxillary sinuses worse on the right side. SPHENOIDAL SINUSES: Normal aeration, without mucosal inflammatory disease. There is obliteration of the ostiomeatal complex is bilaterally due to mucosal hypertrophy worse on the right side. Normal bilateral middle turbinates. Normal bilateral inferior turbinates. There is a left sided nasal septal deviation, but without a nasal septal spur. There is patency of the bilateral nasal airways. The visualized osseous structures are normal. The visualized bilateral orbital contents are normal. CT/Sinus/Facial Bone IMPRESSION: Bilateral maxillary and ethmoid sinusitis. Because of thickening of the frontal sinuses. Nasal septal deviation towards the left side. Electronically Signed: Delfin Baker MD at 15:03 EDT ,
== END | disposition home or self-care (01) ==
LOC: CT 12:41
PROVIDERS: PCP Family Medicine; Referring Provider Otolaryngology; Visit Provider Otolaryngology
DX: J32.8 Other chronic sinusitis (principal)
CPT/HCPCS: 70486

== ENCOUNTER 2022-05-27 06:23 | Day surgery (SDC) | payer MEDICARE, OTHER, SELFPAY ==
[2022-05-22 16:00] LABS: Anion Gap 9 (5-15); BUN 31 mg/dL (7-18); BUN/Creat Ratio 16.2 RATIO (10-20); Calcium,Total 9.2 mg/dL (8.5-10.1); Chloride 103 mmol/L (98-107); Creatinine, Serum 1.91 mg/dL (0.70-1.30); EST Glomerular Filtration Rate 37 mL/min (>60); Est Glom Filt Rate - Afr Amer 45 mL/min (>60); Glucose 138 mg/dL (74-106); Potassium 4.2 mmol/L (3.5-5.1); Sodium Level 138 mmol/L (136-145)
[2022-05-27] VITALS (9 sets, daily range): BP systolic 132–152; BP diastolic 64–84; PULSE 65–72; RESP 16–18; TEMP 36.3–37; O2SAT 93–99; BMI 37.2
[2022-05-27 07:05] LABS: INR Fingerstick 1.1; Prothrombin Time Fingerstick 14.2 SEC (11.7-14.9)
[2022-05-27] MEDS: Lactated Ringers 1,000 ML 15 ML IV (07:14)
[2022-05-27 07:22] LABS: Hemoglobin 15.7 g/dL (13.0-16.5); Mean Corp Hgb Conc 33.4 g/dL (32-36); Mean Corpuscular Hgb 32.2 pg (27.0-32.0); Mean Corpuscular Volume 96.5 fL (80-94); Mean Platelet Vol. 9.4 fl (6.2-12.0); Platelet Count 305 K/mm3 (150-450); RBC Distribution Width CV 14.4 % (11.6-14.6); RBC Distribution Width SD 51.4 fl (35.1-43.9); Red Blood Count 4.87 M/mm3 (4.6-6.2); White Blood Count 7.7 K/mm3 (4.4-11.0)
[2022-05-27 07:46] LABS: Bedside Glucose 156 mg/dL (74-106)
--- NOTE | 2022-05-27 08:15 | ETH_PTH ---
PATIENT: BRENDON DAVID LOC: [facility] [place] U#:[id number] AGE/SX: 71/M ROOM: RE05/27/[address]: Dr. Rubens Sutherland MD : 1950 BED: DIS: 05/27/2022 SPEC #: [id number] RECD: 05/27/22 14:54 STATUS: SARAH DARRYL #: [id number] EMELI: 05/27/22 08:[address]: Rubens Sutherland DEPT: SURGICAL PATHOLOGY RECD BY: Jeffry Paulino ENTERED: 05/28/22 09:22 SP TYPE: ETH TISS OTHR DR: Dr. Enzo Jasso MD Tissues: A - Ethmoid sinus, NOS B - Ethmoid sinus, NOS Procedures: Surgery Specimen Level IV HEADER OPERATION: Septoplasty, functional endoscopic sinus surgery with Navigation PRE-OP DIAGNOSIS: Chronic pansinusitis, deviated septum TISSUE SUBMITTED: A ? Right sinus contents, B ? Left sinus contents MICROSCOPIC DIAGNOSIS A. Right sinus contents: Fragments of respiratory mucosa with acute and chronic inflammation, squamous metaplasia, reactive epithelial changes and bone. B. Left sinus contents: Fragments of respiratory mucosa with chronic inflammation, squamous metaplasia and bone. JENNY:rafiq 05/29/2022 MICROSCOPIC DESCRIPTION Slides are reviewed. GROSS DESCRIPTION A - Received in fixative is one container labeled with the patient's name and designated right sinus contents. The specimen consists of multiple irregular fragments of hemorrhagic soft tissue mixed with mucoid tissue that in aggregate measure 7 x 6 x 2 cm. Proof Inspector tissue is submitted in two cassettes. B - Received in fixative is one container labeled with the patient's name and designated left sinus contents. The specimen consists of multiple irregular fragments of hemorrhagic soft tissue mixed with mucoid tissue that in aggregate measure 5 x 4 x 2 cm. Proof Inspector tissue is submitted in two cassettes. / JENNY:rafiq 05/28/2022 TC: CPT: 23940 x2
[2022-05-27] MEDS: Clindamycin 900 MG/50 ML BAG 75 MG IV (08:58)
[2022-05-27] MEDS: Oxymetazoline 0.05% 1 SPRAY SPRAY.BTL 15 SPRAY (09:23)
[2022-05-27] MEDS: Lidocaine 1% /Epi 1:100 (20ml) 20 ML Vial (09:23)
[2022-05-27] MEDS: Mupirocin Ointment 22gm Tube 1 APPLIC (09:48)
--- NOTE | 2022-05-27 11:22 | DCINST_ITS ---
Discharge Instructions Diet Discharge Diet: No restrictions Activity Discharge Activity: Return to Normal Activity Dressing / Incision Call your doctor if your incision/area has: Sudden Increased Bleeding Additional Dressing/Incision Instructions:: sleep with head of bed elevated. nasal saline to nose 5 times daily. mupirocin to nose 3 times daily. Follow Up Care Please Follow Up With: Rubens Sutherland MD When: 1 week Test Results: Test results from this visit will be discussed in further detail at your follow- up appointment, if applicable. Discharge Plan Admission Attending Provider: Rubens Sutherland Primary Care Provider: Enzo Jasso Discharge Orders/Prescriptions Prescriptions: No Action acarbose [Precose] 100 MG tablet 50 - 100 mg PO TIDCM Label Comments: 1/2 TO 1 TABLET BEFORE EACH MEAL TO REDUCE SUGAR ABSORPTION losartan 100 MG tablet 100 mg PO QHS atenolol 50 MG tablet 50 mg PO BID coenzyme Q10 [Co Q-10] 100 MG capsule 100 mg PO DAILY Trulicity 1.5 MG/0.5 ML pen injector 0.5 ml SQ WE magnesium oxide 400 MG tablet 400 mg PO DAILY selenium 200 MCG tablet 200 mcg PO DAILY glimepiride 4 MG tablet 4 mg PO BID Label Comments: Take 1 (one) Tablet twice daily (if low sugars in AM take 1/2 dose Gerson) if AM sugars < 120 in AM then change back to 2mg tabs} warfarin 5 MG tablet 7 mg PO DAILY furosemide 20 MG tablet 20 mg PO DAILY spironolactone 50 MG tablet 50 mg PO DAILY cinnamon bark 500 MG capsule 500 mg PO BID multivitamin Tablet 1 tab PO DAILY ascorbic acid (vitamin C) [Vitamin C] 1,000 mg Tablet 1 g PO DAILY zinc 50 mg Tablet 50 mg PO DAILY pioglitazone 30 mg tablet 15 - 30 mg PO DAILY cholecalciferol (vitamin D3) [Vitamin D3] 25 mcg (1,000 unit) Capsule 50 mcg PO DAILY icosapent ethyl [Vascepa] 1 gram capsule 2 g PO BID Label Comments: TAKE 2 CAPSULES TWICE DAILY at breakfast and supper Jardiance 25 mg tablet 25 mg PO DAILY Label Comments: TAKE 1 TABLET BY MOUTH EVERY DAY vitamin K2 100 mcg Capsule 100 mcg PO DAILY atorvastatin 20 mg Tablet 20 mg PO QHS Qty: 30 0RF Other Ambulatory Orders: Hemoglobin A1c (Routine) Timeframe: 20220522 Facility: [facility] - Location: Laboratory Ordered By: Dr. Quintin Anguiano Basic Metabolic Profile (BMP) (Routine) Timeframe: 20220522 Facility: [facility] - Location: Laboratory Ordered By: Dr. Quintin Anguiano Prothrombin Time w/INR (Routine) Timeframe: 20220527 Facility: [facility] - Location: Laboratory Ordered By: Dr. Quintin Anguiano 12 Lead EKG (Routine) Timeframe: 20220522 Location: None Selected Ordered By: Dr. Quintin Anguiano Referrals / Follow Up: Enzo Jasso MD [Primary Care Provider] - Disposition Disposition (needs filled in before D/C Order can be placed): Home, Self Care
--- NOTE | 2022-05-27 11:24 | OP.PCM_ITS ---
Problems Associated Problem List Diagnoses (1) Nasal congestion: (2) Nasal septal deviation: (3) Hypertrophy of inferior nasal turbinate: (4) Chronic pansinusitis: Report of Operation Date of Procedure: 05/27/22 Pre-Operative Diagnosis: 1. nasal congestion 2. nasal septal deviation 3. nasal bone fracture 4. inferior turbinate hypertrophy, right and left 5. chronic pansinusitis Post-Operative Diagnosis: 1. nasal congestion 2. nasal septal deviation 3. nasal bone fracture 4. inferior turbinate hypertrophy, right and left 5. chronic pansinusitis Surgery/Procedure Performed:: 1. endoscopic maxillary antrostomy with removal of contents, right and left 2. endoscopic total ethmoidecotmy, right and left 3. endoscopic sphenoidotomy with removal of contents, right and left 4. endoscopic frontal sinus exploration removal of contents, right and left 5. septoplasty 6. submucous and bony resection inferior turbinates, right and left Surgeon: Rubens Sutherland Type of Anesthesia: General Description of Procedure: On the day of the procedure, after appropriate informed consent was obtained, the patient was brought to the operating room and placed in a supine position on the operating room table. The patient was placed under general endotracheal anesthesia by the anesthesiologist. The endotracheal tube was secured.? image guidance navigation was set up on the face and accuracy was confirmed.? the nose was injected with lidocaine/epinephrine and decongested with oxymetazoline- soaked pledgets.? a marginal incision was made with a #15 blade on the left side.? a submucoperichondrial plane was developed on the patient's left side with a samy elevator.? this was taken posteriorly to the bony/cartilaginous junction and inferiorly to the maxillary crest.? after an L-strut was marked, a large leftward defection and 2cm bony spur were removed with a D-knife and vaishali shafer.? the head of the right and left turbinates were injected with lidocaine/epinephrine.? the head of the left inferior turbinate was incised with a 15 blade, dissected submucosally with a samy elevator, reduced using suction electrocautery and outfractured using a boies elevator. bony reduction was performed with a thru cut the head of the right inferior turbinate was incised with a 15 blade, dissected submucosally with a samy elevator, reduced using suction electrocautery and outfractured using a boies elevator.? bony reduction was performed with a thru cut. the zero degree endoscope was used to evaluate the nasal cavity.? the superior attachment of the right and left middle turbinate and uncinate processes were injected with lidocaine/epinephrine.? the left nasal cavity was evaluated.? the middle turbinate was medialized.? a maxillary antrostomy and uncinectomy were performed with a samy elevator and a oc cut.? the antrostomy was widened with a back-biter.? purulent material was evacuated.? the ethmoid bulla was entered bluntly with the suction.? a total ethmoidectomy was performed with a curette and an upgoing blakesley.? this was taken superiorly to the skull base and laterally to the lamina.? a stankewicz maneuver was performed and no laminar defect was noted.? the natural sphenoid os was widened with the microdebrider and contents were evacuated.? the frontal recess was explored and contents were evacuated.? hemostasis was achieved with suction cautery; felice was placed. the right nasal cavity was evaluated.? the middle turbinate was medialized.? a maxillary antrostomy and uncinectomy were performed with a samy elevator and a oc cut.? the antrostomy was widened with a back-biter.? purulent material was evacuated.? the ethmoid bulla was entered bluntly with the suction.? a total ethmoidectomy was performed with a curette and an upgoing blakesley.? this was taken superiorly to the skull base and laterally to the lamina.? a stankewicz maneuver was performed and no laminar defect was noted.? the natural sphenoid os was widened with the microdebrider and contents were evacuated.? the frontal recess was explored and contents were evacuated.? hemostasis was achieved with suction cautery; felice was placed. leal splints were sutured into place.? a nasogastric tube was inserted orally and contents were evacuated.? the table was rotated 90 degrees toward the anesthesiologist and? was subsequently extubated uneventfully.? he was transferred to the PACU in stable condition.
[2022-05-27] MEDS: HYDROcodone Bitartrate/Apap 5/325 Tablet PO (12:34)
[2022-05-27 12:40] LABS: Bedside Glucose 216 mg/dL (74-106)
== END 2022-05-27 14:22 | disposition home or self-care (01) ==
LOC: SDC 06:27 → AC 06:27
PROVIDERS: Anesthesiology; PCP Family Medicine; Referring Provider Otolaryngology; Visit Provider Otolaryngology
PROC: (CPT 31256; principal; 2022-05-27 07:55)
DX: S02.2XXA Fracture of nasal bones, initial encounter for closed fracture (principal); E11.9 Type 2 diabetes mellitus without complications; J34.2 Deviated nasal septum; J32.4 Chronic pansinusitis; J34.3 Hypertrophy of nasal turbinates; I10 Essential (primary) hypertension; Z86.16 Personal history of COVID-19; H40.9 Unspecified glaucoma; G47.30 Sleep apnea, unspecified; Z99.89 Dependence on other enabling machines and devices; I25.2 Old myocardial infarction; Z86.718 Personal history of other venous thrombosis and embolism
CPT/HCPCS: 31256; 31255; 31288; 30520; 00160; 36415; 36416; 80048; 82962; 85027; 85610; 88305; 93005; J7120; J2405

== ENCOUNTER → 2022-09-30 | Outpatient (CLI) | payer MEDICARE, OTHER, SELFPAY ==
--- NOTE | 2022-09-30 07:19 | CT_ITS ---
STUDY: CT FACIAL BONES WITHOUT CONTRAST REASON FOR EXAM: Male, 72 years old. LEFT OROANTRAL FISTULA. Facial swelling. History of chronic sinusitis. RADIATION DOSAGE (If Supplied By Facility): CTDIvol = ( 33.06 ) mGy, DLP = ( 825.58 ) mGycm TECHNIQUE: The patient was scanned in a multi detector CT scanner. Sagittal and coronal images were reconstructed. Individualized dose optimization techniques were used for this CT. COMPARISON: Comparison is made with prior study dated 04/07/2022. FINDINGS: Small benign-appearing bilateral submental lymph nodes. Normal orbital armstrong and orbital contents. Normal nasal bones and anterior nasal spine. Normal facial bones. There is no demonstrated fracture. There is opacification of the maxillary sinuses bilaterally worse on the right side. There is evidence of prior resection of the medial armstrong of the maxillary sinuses. Soft tissue proliferation is seen in the ostiomeatal contents bilaterally. Partial opacification of the ethmoid sinuses bilaterally worse on the right side. Minimal mucosal thickening of the left sphenoid sinus. CT/Sinus/Facial Bone IMPRESSION: Essentially stable examination as compared to prior study. Electronically Signed: Delfin Baker MD at 12:55 EST ,
== END | disposition home or self-care (01) ==
LOC: CT 07:18
PROVIDERS: PCP Family Medicine; Referring Provider Otolaryngology; Visit Provider Otolaryngology
DX: J32.8 Other chronic sinusitis (principal); J32.0 Chronic maxillary sinusitis
CPT/HCPCS: 70486

== ENCOUNTER → 2022-11-06 | Outpatient (CLI) | payer MEDICARE, OTHER, SELFPAY ==
--- NOTE | 2022-11-06 07:48 | MRI_ITS ---
STUDY: MRI FACE AND ORBITS WITH AND WITHOUT CONTRAST REASON FOR EXAM: Male, 72 years old. 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 Ongoing issues x 2 years left orbital pain, pressure TECHNIQUE: Standardized fat and water weighted pulse sequences were obtained in all 3 orthogonal planes, pre-and post contrast administration. IV 25ml Clariscan was administered for the contrast portion of the examination. COMPARISON: CT of the maxillofacial without contrast 09/30/[address] maxillofacial with contrast 04/07/2022. FINDINGS: Again noted is left franci-LeFort I fracture injury across the lower left maxillary sinus armstrong and extending across the armstrong of the nasal floors and into the medial wall of the lower compartment of the right maxillary sinus. This extends posteriorly into the old fracture of the left medial pterygoid plate. The roots of the central and lateral upper incisors are floating inside the flowing hard palate bone. 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 Mucosal thickening of the maxillary sinuses are chronic and unchanged. Postsurgical absence of the ostiomeatal units are unchanged. Mucosal thickening of the residual right ethmoid sinus is unchanged. Normal frontal sinus. Normal sphenoid sinus. Normal bilateral globes. Normal bilateral optic nerve sheath complexes and optic nerves. Normal bilateral intraconal and extraconal spaces. Normal bilateral extraocular muscles. Normal optic chiasm and post-chiasmatic tracts. Normal sella turcica, pituitary gland, infundibular stalk, and hypothalamus. Normal bilateral cavernous sinuses. Normal tectal plate and pineal gland. Normal flow voids within the major intracranial circulation suggesting patency by spin echo criteria. Normal size of the ventricles and extra-axial spaces for the patient''s age. Few T2 FLAIR white matter hyperintensity foci in both cerebral hemispheres are chronic white matter ischemic changes. Normal bilateral basal ganglia. Normal thalami. There is no extra-axial fluid accumulation. Normal midbrain, maximilian and medulla. Normal cerebellum. Normal basal cisterns. OPINION: 1. Old left franci-LeFort I fracture injury across the armstrong of the lower left maxillary sinus and extending posteriorly into the old fracture of the left medial pterygoid plate. This fracture line also extends across the armstrong of the nasal floors and into medial wall of the lower compartment of the right maxillary sinus. 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 Additionally, there is floating bone of the hard palate/nasal floor containing the roots of the loose upper central incisor and upper lateral incisors. 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 These findings are however chronic when compared to 09/30/2022 and 04/07/2022. 2. Chronic bilateral maxillary sinusitis and/or granulation tissue, postsurgical absence of the ostiomeatal units and chronic mucosal thickening of the residual right posterior ethmoid sinus.. 3. Normal remaining paranasal sinuses. Electronically Signed: Ihsan Dewey MD at 11:30 EDT , MRI/Orbit Face Neck W/WO Contrast IMPRESSION: undefined
[2022-11-06 08:10] LABS: CREATININE FINGERSTICK 1.1 mg/dL (0.70-1.30); EGFR FINGERSTICK > 60.0000 mL/min (>60)
== END | disposition home or self-care (01) ==
LOC: MRI 07:11
PROVIDERS: PCP Family Medicine; Referring Provider Family Medicine; Visit Provider Family Medicine
DX: J32.0 Chronic maxillary sinusitis (principal)
CPT/HCPCS: 70543; A9575

== ENCOUNTER 2022-12-01 00:10 | Emergency (ER) | payer MEDICARE, OTHER, SELFPAY ==
[2022-12-01 00:12] VITALS: BP 134/71; PULSE 66; RESP 20; TEMP 36.3; O2SAT 95; BMI 37.6
[2022-12-01 00:51] LABS: Absolute Lymphocyte Count 1.84 X10^3/uL (0.83-4.51); Absolute Neutrophil Count 4.6 X10^3/uL (2.0-7.7); Basophil# 0.06 X10^3/uL; Basophil% 0.8 % (0-1); Eosinophil# 0.23 X10^3/uL; Eosinophils% 3.1 % (0-5); Hematocrit 40.4 % (40-54); Hemoglobin 12.8 g/dL (13.0-16.5); Lymphocyte # 1.84 X10^3/ul (0.83-4.51); Lymphocyte % 24.7 % (19-41); Mean Corp Hgb Conc 31.7 g/dL (32-36); Mean Corpuscular Hgb 31.5 pg (27.0-32.0); Mean Corpuscular Volume 99.5 fL (80-94); Mean Platelet Vol. 9.4 fl (6.2-12.0); Monocyte# 0.65 X10^3/uL; Monocyte% 8.7 % (0-10); NRBC Flagged by Analyzer 0 % (0-5); Neutrophil # 4.62 X10^3/uL (2.7-7.7); Platelet Count 300 K/mm3 (150-450); RBC Distribution Width CV 14.9 % (11.6-14.6); RBC Distribution Width SD 54.3 fl (35.1-43.9); Red Blood Count 4.06 M/mm3 (4.6-6.2); White Blood Count 7.5 K/mm3 (4.4-11.0)
[2022-12-01 01:08] LABS: ALB/GLOB Ratio 0.7 RATIO (0.9-2.4); AST(SGOT) 20 U/L (15-37); Alanine Aminotransfer ALT/SGPT 24 U/L (16-61); Albumin, Serum 2.9 g/dL (3.2-5.0); Alkaline Phosphatase 63 U/L (45-117); Anion Gap 5 (5-15); BUN 30 mg/dL (7-18); BUN/Creat Ratio 16.9 RATIO (10-20); Calcium,Total 8.9 mg/dL (8.5-10.1); Chloride 108 mmol/L (98-107); Creatinine, Serum 1.78 mg/dL (0.70-1.30); EST Glomerular Filtration Rate 40 mL/min (>60); Est Glom Filt Rate - Afr Amer 49 mL/min (>60); Estimated Creatinine Clearance 43.64 ml/min; Globulin 3.9 g/dL (2.2-4.2); Glucose 191 mg/dL (74-106); Potassium 3.7 mmol/L (3.5-5.1); Protein, Total 6.8 g/dL (6.4-8.2); Sodium Level 138 mmol/L (136-145)
[2022-12-01 01:14] LABS: International Normalized Ratio 5.9; Prothrombin Time (Protime)PT. 52.9 SECONDS (11.7-14.9)
--- NOTE | 2022-12-01 02:10 | EDS_ITS ---
HPI History of Present Illness Chief Complaint: Other, Pain/Inj Informant: patient Narrative Narrative: Patient presents with bleeding from oral maxillofacial surgery area. Patient had surgery in the left floor of the sinus and roof of the mouth on 13 November. There is an opening there. He is due to have a repeat surgery in 3 days. He has an appointment this morning and about 8 hours. He stopped his Coumadin which he is on for what sounds like peripheral vascular disease. He is took his last dose evening. Because he had stopped the Coumadin they state he could use some Flonase spray if he was congested. He use this and then a few hours later he had some bleeding. He states it seemed to have stopped right now. He states it was mostly bleeding from the mouth but some came out nose. No other areas of bleeding. He does not feel lightheaded or weak. His surgery was done up at [facility]. [facility] Medical History Benign essential hypertension COVID-19 CPAP (continuous positive airway pressure) dependence Diabetes DVT (deep venous thrombosis) DVT (deep venous thrombosis) HLD (hyperlipidemia) Hypertension Non-smoker Non-ST elevation SC (NSTEMI) Sleep apnea Type II diabetes mellitus Wears glasses Home Medications acarbose 100 mg tablet (Precose) 100 mg PO BID 11/12/16 [History Last Taken 05/20/19] atenolol 50 mg tablet 50 mg PO BID 11/12/16 [History Last Taken 05/20/19] coenzyme Q10 100 mg capsule (Co Q-10) 100 mg PO DAILY 11/12/16 [History Last Taken 05/20/19] dulaglutide 1.5 mg/0.5 mL subcutaneous pen injector (Trulicity) 1 ml SQ WE 11/12/16 [History Last Taken 05/18/19] losartan 100 mg tablet 100 mg PO QHS 11/12/16 [History Last Taken 05/19/19] magnesium oxide 400 mg PO DAILY 11/12/16 [History Last Taken 05/20/19] cinnamon bark 500 mg capsule 500 mg PO BID 05/20/19 [History Last Taken 05/20/19] furosemide 20 mg tablet 20 mg PO DAILY 05/20/19 [History Last Taken 05/20/19] glimepiride 4 mg tablet 4 mg PO BID dm 05/20/19 [History Last Taken 05/20/19] selenium 200 mcg tablet 200 mcg PO DAILY 05/20/19 [History Last Taken 05/20/19] spironolactone 50 mg tablet 50 mg PO DAILY 05/20/19 [History Last Taken 05/20/19] warfarin 5 mg tablet See Rx Instructions .Route .COMPLEX 05/20/19 [History Last Taken 05/19/19] ascorbic acid (vitamin C) 1,000 mg tablet (Vitamin C) 1 g PO DAILY 05/08/21 [History Last Taken Unknown] cholecalciferol (vitamin D3) 25 mcg (1,000 unit) capsule (Vitamin D3) 50 mcg PO DAILY 05/08/21 [History Last Taken Unknown] empagliflozin 25 mg tablet (Jardiance) 25 mg PO DAILY 05/08/21 [History Last Taken Unknown] icosapent ethyl 1 gram capsule (Vascepa) 2 g PO BID 05/08/21 [History Last Taken Unknown] multivitamin 1 tab PO DAILY 05/08/21 [History Last Taken Unknown] pioglitazone 30 mg tablet 15 mg PO DAILY 05/08/21 [History Last Taken Unknown] zinc 50 mg tablet 50 mg PO DAILY 05/08/21 [History Last Taken Unknown] atorvastatin 20 mg tablet 20 mg PO QHS #30 tabs 05/15/21 [Rx Last Taken Unknown] Allergy/AdvReac Type Severity Reaction Status Date / Time No Known Allergies Allergy Verified 05/27/22 06:55 Family History Father Heart disease Mother CVA (cerebral vascular accident) Surgical History History of back surgery History of surgical procedure on mouth Hx of tonsillectomy Social History Smoking Status: Never smoker substance use type: does not use ROS ROS ED Constitutional Constitutional ED: Denies chills or fever(s) Eyes Eyes: Denies change in vision ENT ENT ED: Reports other Details: See history of present illness. Cardiovascular Cardiovascular: Denies chest pain Respiratory/Chest Respiratory/Chest: Denies cough Gastrointestinal Gastrointestinal: Denies nausea Genitourinary Genitourinary ED: Denies hematuria Musculoskeletal Musculoskeletal: Denies myalgias Integumentary Denies rash Neurologic Neurologic: Denies paresthesias or weakness Hematologic/Lymphatic Hematologic/Lymphatic: Reports easy bleeding and easy bruising Allergic/Immunologic Allergic/Immunologic ED: Denies urticaria EXAM Physical Exam Narrative Exam Narrative: Patient is awake alert sitting comfortably in bed. He is a little bit of dried blood around the left nare and a little bit around the corner of the mouth on the left. Nontoxic carries on normal conversation. HEENT does show dried blood in the left naris but only a small amount. There is an opening when I look in his mouth and the palate up above on the left. He has what appears to be a fresh clot in this area. No active bleeding at this time. No bad odor or sign of infection. No external changes. Neck is supple Lungs are clear. Heart does sound regular. Abdomen is obese but benign Extremities show a few contusions on the arm consistent with being on Coumadin but no acute abnormalities. Neurologically he is awake alert and appropriate. Const Vital Signs: 12/01/22 00:12 Temperature 97.4 F L Temperature Source Temporal Pulse Rate 66 Respiratory Rate 20 H Blood Pressure 134/71 H Blood Pressure Mean 92 Pulse Ox 95 Oxygen Delivery Method Room Air MDM MDM MDM Narrative Medical decision making narrative: Patient CBC does show some mildly low hemoglobin at 12.8. This is lower than the prior ones that I have on record but I do not have any postoperative ones to compare to. His INR was quite high at 5.9 especially since he has not had his Coumadin since night. Electrolytes showed no marked abnormalities. Creatinine is up a bit at 1.78. But this is slightly lower than my most recent. Liver function test showed no marked abnormalities. Patient's glucose was mildly up at 191. With his hemoglobin, clot, surgery and significantly elevated INR, I do think we need to reverse his Coumadin. This is especially in light of the fact that he is set to have surgery in a little over 48 hours now. He has an appointment to be seen even sooner. He was told that they might even do surgery today when they saw him but he is not sure of that. We do have Kcentra here. I have put in orders. Patient will be observed while we get this in and watch for further bleeding. If he continues to do well, we will get him up to see his physician in the morning. We did have Kcentra in the is being infused. He states he still had felt some ooze but that stopped. He states is not bleeding at all now. Of note, they do flush his PICC line in his left arm with heparin. But explained that this will not raise his INR. It might contribute to bleeding but only a small amount. They have been doing that since 13 November. I think his bleeding was a combination of significantly elevated INR in the face of surgery and using Flonase. Patient would like to go to see his doctor this morning. I explained I would like to finish the infusion and get him up and walking around to make sure he has no further problem. On exam he has some clot formation but there is no sign of any fresh blood anywhere. Patient walked around the department with no difficulties. He has had no repeat bleeding. Since he has been given the Kcentra and vitamin K his symptoms are resolved. He is comfortable following up with his physician as he has an appointment at about 4-1/2 hours. Lab Data Attestation: I reviewed the patient's lab results. Labs: Laboratory Results - last 24 hr 12/01/22 12/01/22 12/01/22 00:45 00:45 00:45 WBC 7.5 RBC 4.06 L Hgb 12.8 L Hct 40.4 MCV 99.5 H MCH 31.5 MCHC 31.7 L RDW Std Deviation 54.3 H RDW Coeff of Geovanna 14.9 H Plt Count 300 MPV 9.4 Immature Gran % (Auto) 0.700 Neut % (Auto) 62.0 Lymph % (Auto) 24.7 [place] % (Auto) 8.7 Eos % (Auto) 3.1 Baso % (Auto) 0.8 Absolute Neuts (auto) 4.6 Absolute Lymphs (auto) 1.84 Nucleated RBC % 0 PT 52.9 H INR 5.9 H* Sodium 138 Potassium 3.7 Chloride 108 H Carbon Dioxide 25.0 Anion Gap 5 BUN 30 H Creatinine 1.78 H Estim Creat Clear Calc 43.64 Est GFR (MDRD) Af Amer 49 L Est GFR (MDRD) Non-Af 40 L BUN/Creatinine Ratio 16.9 Glucose 191 H Calcium 8.9 Total Bilirubin 0.20 AST 20 ALT 24 Alkaline Phosphatase 63 Total Protein 6.8 Albumin 2.9 L Globulin 3.9 Albumin/Globulin Ratio 0.7 L Discharge Plan Triage Chief Complaint: Other, Pain/Inj ED Provider: Doron Benitez Dx/Rx/DC Orders Clinical Impression: Postoperative wound hemorrhage, Warfarin-induced coagulopathy Instructions: ED Post Op Wound Check, Bleeding Prescriptions: No Action acarbose [Precose] 100 MG tablet 100 mg PO BID Label Comments: 1/2 TO 1 TABLET BEFORE EACH MEAL TO REDUCE SUGAR ABSORPTION losartan 100 MG tablet 100 mg PO QHS atenolol 50 MG tablet 50 mg PO BID coenzyme Q10 [Co Q-10] 100 MG capsule 100 mg PO DAILY Trulicity 1.5 MG/0.5 ML pen injector 1 ml SQ WE magnesium oxide 400 MG tablet 400 mg PO DAILY selenium 200 MCG tablet 200 mcg PO DAILY glimepiride 4 MG tablet 4 mg PO BID Label Comments: Take 1 (one) Tablet twice daily (if low sugars in AM take 1/2 dose Gerson) if AM sugars < 120 in AM then change back to 2mg tabs} warfarin 5 MG tablet See Rx Instructions .ROUTE .COMPLEX Rx Instructions: 5- WE furosemide 20 MG tablet 20 mg PO DAILY spironolactone 50 MG tablet 50 mg PO DAILY cinnamon bark 500 MG capsule 500 mg PO BID multivitamin Tablet 1 tab PO DAILY ascorbic acid (vitamin C) [Vitamin C] 1,000 mg Tablet 1 g PO DAILY zinc 50 mg Tablet 50 mg PO DAILY pioglitazone 30 mg tablet 15 mg PO DAILY cholecalciferol (vitamin D3) [Vitamin D3] 25 mcg (1,000 unit) Capsule 50 mcg PO DAILY icosapent ethyl [Vascepa] 1 gram capsule 2 g PO BID Label Comments: TAKE 2 CAPSULES TWICE DAILY at breakfast and supper Jardiance 25 mg tablet 25 mg PO DAILY Label Comments: TAKE 1 TABLET BY MOUTH EVERY DAY atorvastatin 20 mg Tablet 20 mg PO QHS Qty: 30 0RF Primary Care Provider: Enzo Jasso Referrals: Enzo Jasso MD [Primary Care Provider] - As Needed Activity Restrictions/Additional Instructions: Follow-up with your physician at [facility] this morning as scheduled. Disposition Disposition: Home, Self Care
[2022-12-01 05:04] VITALS: BP 112/65; PULSE 62; RESP 20; O2SAT 95
== END 2022-12-01 05:04 | disposition home or self-care (01) ==
PROVIDERS: Emergency Provider Emergency Medicine; PCP Family Medicine; Visit Provider Emergency Medicine
DX: D68.32 Hemorrhagic disorder due to extrinsic circulating anticoagulants (principal); E11.9 Type 2 diabetes mellitus without complications; E78.5 Hyperlipidemia, unspecified; I10 Essential (primary) hypertension; Z86.16 Personal history of COVID-19; I25.2 Old myocardial infarction
CPT/HCPCS: 36592; 80053; 85025; 85610; 99284; J7050; J7168; A4216; J3490

== ENCOUNTER → 2023-02-20 | Outpatient (CLI) | payer MEDICARE, OTHER, SELFPAY ==
[2023-02-20 18:10] LABS: Absolute Lymphocyte Count 1.54 X10^3/uL (0.83-4.51); Basophil# 0.06 X10^3/uL; Basophil% 0.6 % (0-1); Eosinophil# 0.22 X10^3/uL; Eosinophils% 2.3 % (0-5); Hematocrit 46.2 % (40-54); Hemoglobin 14.3 g/dL (13.0-16.5); Lymphocyte # 1.54 X10^3/ul (0.83-4.51); Lymphocyte % 16.2 % (19-41); Mean Corpuscular Hgb 29.7 pg (27.0-32.0); Mean Corpuscular Volume 95.9 fL (80-94); Mean Platelet Vol. 10.6 fl (6.2-12.0); Monocyte# 0.62 X10^3/uL; Monocyte% 6.5 % (0-10); NRBC Flagged by Analyzer 0 % (0-5); Neutrophil # 6.96 X10^3/uL (2.7-7.7); Neutrophil % 73.5 % (47-70); Platelet Count 362 K/mm3 (150-450); RBC Distribution Width CV 14.5 % (11.6-14.6); RBC Distribution Width SD 50.7 fl (35.1-43.9); Red Blood Count 4.82 M/mm3 (4.6-6.2); White Blood Count 9.5 K/mm3 (4.4-11.0)
[2023-02-20 18:20] LABS: Erythrocyte Sedimentation Rate 37 mm/hr (0-20)
[2023-02-20 18:30] LABS: ALB/GLOB Ratio 0.8 RATIO (0.9-2.4); AST(SGOT) 29 U/L (15-37); Alanine Aminotransfer ALT/SGPT 33 U/L (16-61); Albumin, Serum 3.2 g/dL (3.2-5.0); Alkaline Phosphatase 81 U/L (45-117); Anion Gap 6 (5-15); BUN 35 mg/dL (7-18); Calcium,Total 8.9 mg/dL (8.5-10.1); Chloride 103 mmol/L (98-107); Creatinine, Serum 2.06 mg/dL (0.70-1.30); EST Glomerular Filtration Rate 34 mL/min (>60); Est Glom Filt Rate - Afr Amer 41 mL/min (>60); Globulin 4.1 g/dL (2.2-4.2); Glucose 257 mg/dL (74-106); Potassium 4.2 mmol/L (3.5-5.1); Protein, Total 7.3 g/dL (6.4-8.2); Sodium Level 135 mmol/L (136-145)
[2023-02-20 18:36] LABS: Hemoglobin A1c 8.2 % (3.8-5.6)
== END | disposition home or self-care (01) ==
LOC: MFPLAB 14:16
PROVIDERS: PCP Family Medicine; Visit Provider Family Medicine
DX: E11.51 Type 2 diabetes mellitus with diabetic peripheral angiopathy without gangrene (principal); M86.60 Other chronic osteomyelitis, unspecified site; E11.69 Type 2 diabetes mellitus with other specified complication
CPT/HCPCS: 36415; 80053; 83036; 85025; 85652

== ENCOUNTER → 2023-06-22 | Outpatient (CLI) | payer MEDICARE, OTHER, SELFPAY ==
[2023-06-22 17:37] LABS: Absolute Lymphocyte Count 1.45 X10^3/uL (0.83-4.51); Absolute Neutrophil Count 4.9 X10^3/uL (2.0-7.7); Basophil# 0.06 X10^3/uL; Basophil% 0.8 % (0-1); Eosinophil# 0.07 X10^3/uL; Hematocrit 48.8 % (40-54); Hemoglobin 15.4 g/dL (13.0-16.5); Lymphocyte # 1.45 X10^3/ul (0.83-4.51); Lymphocyte % 20.5 % (19-41); Mean Corp Hgb Conc 31.6 g/dL (32-36); Mean Corpuscular Hgb 30.1 pg (27.0-32.0); Mean Corpuscular Volume 95.3 fL (80-94); Mean Platelet Vol. 9.9 fl (6.2-12.0); Monocyte# 0.57 X10^3/uL; Monocyte% 8.1 % (0-10); NRBC Flagged by Analyzer 0 % (0-5); Neutrophil # 4.88 X10^3/uL (2.7-7.7); Neutrophil % 68.9 % (47-70); Platelet Count 293 K/mm3 (150-450); RBC Distribution Width CV 17.1 % (11.6-14.6); RBC Distribution Width SD 59.3 fl (35.1-43.9); Red Blood Count 5.12 M/mm3 (4.6-6.2); White Blood Count 7.1 K/mm3 (4.4-11.0)
[2023-06-22 17:47] LABS: International Normalized Ratio 2.3; Prothrombin Time (Protime)PT. 25.8 SECONDS (11.7-14.9)
[2023-06-22 17:51] LABS: Color, Urine Yellow (Yellow); Glucose, Dipstick 1000 mg/dl (Normal); Ketone-Dipstick Negative (Negative); Leukocyte Esterase-Dipstick Negative /ul (Negative); Nitrite-Dipstick Negative (Negative); Occult Blood-Urine Negative /ul (Negative); Protein-Dipstick 15 mg/dl (Negative); Specific Gravity, Urine 1.015 (1.002-1.030); Urine Bilirubin Dipstick Negative (Negative); Urine Clarity Clear (Clear); Urine Urobilinogen Normal (Normal)
[2023-06-22 17:54] LABS: Hemoglobin A1c 8.5 % (3.8-5.6)
[2023-06-22 18:03] LABS: Bacteria 0 SEEN /hpf (None Seen); Mucous, Urine 0 SEEN /hpf (<or=2+); Red Blood Cells-Urine 0 SEEN /hpf (0-5); Squamous Epithelial Cells - UA 0 SEEN /hpf (0-5); White Blood Cells 0 SEEN /hpf (0-5)
[2023-06-22 18:12] LABS: Microalbumin:Creatinine Ratio 48.5 mg/g CRE (<30 mg/g CRE)
[2023-06-22 18:20] LABS: ALB/GLOB Ratio 0.9 RATIO (0.9-2.4); AST(SGOT) 26 U/L (15-37); Alanine Aminotransfer ALT/SGPT 46 U/L (16-61); Albumin, Serum 3.4 g/dL (3.2-5.0); Alkaline Phosphatase 85 U/L (45-117); Anion Gap 9 (5-15); BUN 49 mg/dL (7-18); BUN/Creat Ratio 22.2 RATIO (10-20); Bilirubin, Direct 0.09 mg/dL (0.00-0.30); Calcium,Total 8.9 mg/dL (8.5-10.1); Chloride 103 mmol/L (98-107); Cholesterol 270 mg/dL (200); Creatinine, Serum 2.21 mg/dL (0.70-1.30); EST Glomerular Filtration Rate 31 mL/min (>60); Est Glom Filt Rate - Afr Amer 38 mL/min (>60); Globulin 3.8 g/dL (2.2-4.2); Glucose 215 mg/dL (74-106); High Density Lipoprotein 31 mg/dL; Phosphorus 3.8 mg/dL (2.5-4.9); Potassium 4.5 mmol/L (3.5-5.1); Protein, Total 7.2 g/dL (6.4-8.2); Sodium Level 134 mmol/L (136-145); Triglycerides 712 mg/dL
== END | disposition home or self-care (01) ==
LOC: MFPLAB 14:31
PROVIDERS: PCP Family Medicine; Visit Provider Family Medicine
DX: Z86.718 Personal history of other venous thrombosis and embolism (principal); E11.51 Type 2 diabetes mellitus with diabetic peripheral angiopathy without gangrene; E11.22 Type 2 diabetes mellitus with diabetic chronic kidney disease; N18.31 Chronic kidney disease, stage 3a
CPT/HCPCS: 36415; 80053; 80061; 81001; 82043; 82248; 82570; 83036; 84100; 85025; 85610

== ENCOUNTER → 2023-06-26 | Outpatient (CLI) | payer MEDICARE, OTHER, SELFPAY ==
[2023-06-26 17:56] LABS: International Normalized Ratio 2.9; Prothrombin Time (Protime)PT. 30.3 SECONDS (11.7-14.9)
[2023-06-26 18:17] LABS: Albumin, Serum 3.4 g/dL (3.2-5.0); BUN 43 mg/dL (7-18); BUN/Creat Ratio 22.2 RATIO (10-20); Calcium,Total 9.3 mg/dL (8.5-10.1); Chloride 103 mmol/L (98-107); Creatinine, Serum 1.94 mg/dL (0.70-1.30); EST Glomerular Filtration Rate 37 mL/min (>60); Est Glom Filt Rate - Afr Amer 44 mL/min (>60); Glucose 202 mg/dL (74-106); Magnesium 2.3 mg/dL (1.6-2.6); Phosphorus 3.8 mg/dL (2.5-4.9); Potassium 4.6 mmol/L (3.5-5.1); Sodium Level 136 mmol/L (136-145)
== END | disposition home or self-care (01) ==
LOC: MFPLAB 14:51
PROVIDERS: PCP Family Medicine; Visit Provider Family Medicine
DX: Z86.718 Personal history of other venous thrombosis and embolism (principal); Z51.81 Encounter for therapeutic drug level monitoring; I99.8 Other disorder of circulatory system
CPT/HCPCS: 36415; 80069; 83735; 85610

== ENCOUNTER → 2023-07-06 | Outpatient (CLI) | payer MEDICARE, OTHER, SELFPAY ==
--- NOTE | 2023-07-06 10:45 | RAD_ITS ---
STUDY: X-RAY - LEFT HAND REASON FOR EXAM: Male, 72 years old. Trauma/dog bite. TECHNIQUE: 3 views of the left hand. COMPARISON: None. FINDINGS: Normal radiocarpal articulation. Normal distal radioulnar joint. Normal visualized carpal bones. Normal carpal articulations. Normal carpometacarpal articulation of the thumb. Normal second through fifth carpometacarpal joints. Normal metacarpi. Normal metacarpophalangeal joint of the thumb. Normal proximal and distal phalanges of the thumb. There is degenerative arthrosis of the interphalangeal joint of the thumb as well as second through fifth PIP and DIP joints. Normal metacarpophalangeal joints of the second through fifth fingers. Normal phalanges of the second through fifth fingers. There is no demonstrated acute fracture. There are atherosclerotic calcifications. 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 No demonstrated acute fracture. Electronically Signed: Kailash Pearl MD at 15:58 EST ,
[2023-07-06 13:01] LABS: International Normalized Ratio 3.2; Prothrombin Time (Protime)PT. 33.1 SECONDS (11.7-14.9)
[2023-07-06 13:20] LABS: ALB/GLOB Ratio 0.8 RATIO (0.9-2.4); AST(SGOT) 19 U/L (15-37); Alanine Aminotransfer ALT/SGPT 35 U/L (16-61); Albumin, Serum 3.3 g/dL (3.2-5.0); Alkaline Phosphatase 73 U/L (45-117); Anion Gap 9 (5-15); BUN 31 mg/dL (7-18); BUN/Creat Ratio 20.4 RATIO (10-20); Calcium,Total 9.4 mg/dL (8.5-10.1); Chloride 105 mmol/L (98-107); Creatinine, Serum 1.52 mg/dL (0.70-1.30); EST Glomerular Filtration Rate 48 mL/min (>60); Est Glom Filt Rate - Afr Amer 59 mL/min (>60); Globulin 3.9 g/dL (2.2-4.2); Glucose 265 mg/dL (74-106); Potassium 4.3 mmol/L (3.5-5.1); Protein, Total 7.2 g/dL (6.4-8.2); Sodium Level 134 mmol/L (136-145)
== END | disposition home or self-care (01) ==
LOC: MTLAB 10:41
PROVIDERS: PCP Family Medicine; Referring Provider Family Medicine; Visit Provider Family Medicine
DX: S69.90XA Unspecified injury of unspecified wrist, hand and finger(s), initial encounter (principal); W54.0XXA Bitten by dog, initial encounter; N28.9 Disorder of kidney and ureter, unspecified; Z86.718 Personal history of other venous thrombosis and embolism
CPT/HCPCS: 36415; 73130; 80053; 85610

== ENCOUNTER → 2023-07-27 | Outpatient (CLI) | payer MEDICARE, OTHER, SELFPAY ==
[2023-07-27 10:19] LABS: Hemoglobin A1c 8.7 % (3.8-5.6)
[2023-07-27 10:56] LABS: ALB/GLOB Ratio 0.9 RATIO (0.9-2.4); AST(SGOT) 19 U/L (15-37); Alanine Aminotransfer ALT/SGPT 30 U/L (16-61); Albumin, Serum 3.2 g/dL (3.2-5.0); Alkaline Phosphatase 71 U/L (45-117); Anion Gap 6 (5-15); BUN 35 mg/dL (7-18); BUN/Creat Ratio 21.7 RATIO (10-20); Chloride 108 mmol/L (98-107); Creatinine, Serum 1.61 mg/dL (0.70-1.30); EST Glomerular Filtration Rate 45 mL/min (>60); Est Glom Filt Rate - Afr Amer 55 mL/min (>60); Globulin 3.6 g/dL (2.2-4.2); Glucose 217 mg/dL (74-106); Potassium 4.4 mmol/L (3.5-5.1); Protein, Total 6.8 g/dL (6.4-8.2); Sodium Level 138 mmol/L (136-145)
== END | disposition home or self-care (01) ==
LOC: MFPLAB 08:39
PROVIDERS: PCP Family Medicine; Visit Provider Family Medicine
DX: E11.51 Type 2 diabetes mellitus with diabetic peripheral angiopathy without gangrene (principal)
CPT/HCPCS: 36415; 80053; 83036

== ENCOUNTER 2023-08-04 09:44 | Outpatient (RCR) | payer MEDICARE, OTHER, SELFPAY ==
[2023-08-04 10:08] LABS: INR Fingerstick 1.3; Prothrombin Time Fingerstick 14.9 SEC (11.7-14.9)
== END 2023-08-16 18:00 | disposition home or self-care (01) ==
LOC: MTLAB 09:44
PROVIDERS: PCP Family Medicine; Referring Provider Family Medicine; Visit Provider Family Medicine
DX: I99.8 Other disorder of circulatory system (principal); Z51.81 Encounter for therapeutic drug level monitoring; Z86.718 Personal history of other venous thrombosis and embolism
CPT/HCPCS: 36416; 85610

== ENCOUNTER → 2023-12-07 | Outpatient (CLI) | payer MEDICARE, OTHER, SELFPAY ==
[2023-12-07 10:04] LABS: Absolute Neutrophil Count 6.1 X10^3/uL (2.0-7.7); Basophil# 0.07 X10^3/uL; Basophil% 0.9 % (0-1); Eosinophil# 0.11 X10^3/uL; Eosinophils% 1.4 % (0-5); Hematocrit 47.9 % (40-54); Hemoglobin 15.4 g/dL (13.0-16.5); Lymphocyte % 13.9 % (19-41); Mean Corp Hgb Conc 32.2 g/dL (32-36); Mean Corpuscular Hgb 30.9 pg (27.0-32.0); Mean Corpuscular Volume 96.2 fL (80-94); Mean Platelet Vol. 10.6 fl (6.2-12.0); Monocyte# 0.51 X10^3/uL; Monocyte% 6.4 % (0-10); NRBC Flagged by Analyzer 0 % (0-5); Neutrophil # 6.07 X10^3/uL (2.7-7.7); Neutrophil % 76.4 % (47-70); Platelet Count 275 K/mm3 (150-450); RBC Distribution Width CV 15.2 % (11.6-14.6); RBC Distribution Width SD 53.8 fl (35.1-43.9); Red Blood Count 4.98 M/mm3 (4.6-6.2); White Blood Count 7.9 K/mm3 (4.4-11.0)
[2023-12-07 10:44] LABS: PTHIN 33.6 pg/mL (18.4-80.1)
[2023-12-07 10:52] LABS: ALB/GLOB Ratio 0.9 RATIO (0.9-2.4); AST(SGOT) 17 U/L (15-37); Alanine Aminotransfer ALT/SGPT 25 U/L (16-61); Albumin, Serum 3.5 g/dL (3.2-5.0); Alkaline Phosphatase 68 U/L (45-117); Anion Gap 6 (5-15); BUN 31 mg/dL (7-18); BUN/Creat Ratio 20.1 RATIO (10-20); Calcium,Total 9.3 mg/dL (8.5-10.1); Chloride 109 mmol/L (98-107); Creatinine, Serum 1.54 mg/dL (0.70-1.30); EST Glomerular Filtration Rate 48 mL/min (>60); Est Glom Filt Rate - Afr Amer 58 mL/min (>60); Ferritin 77 ng/mL (26-388); Glucose 177 mg/dL (74-106); Potassium 4.1 mmol/L (3.5-5.1); Protein, Total 7.5 g/dL (6.4-8.2); Sodium Level 139 mmol/L (136-145)
[2023-12-07 11:15] LABS: Microalbumin,Random Urine 59.4 mg/L (NO RANGE EST.); Microalbumin:Creatinine Ratio 47.9 mg/g CRE (<30 mg/g CRE)
== END | disposition home or self-care (01) ==
LOC: MFPLAB 09:07
PROVIDERS: PCP Family Medicine; Visit Provider Family Medicine
DX: N18.32 Chronic kidney disease, stage 3b (principal); E11.65 Type 2 diabetes mellitus with hyperglycemia
CPT/HCPCS: 36415; 80053; 82043; 82570; 82728; 83970; 85025

== ENCOUNTER → 2024-04-13 | Outpatient (CLI) | payer MEDICARE, OTHER, SELFPAY ==
[2024-04-13 10:17] LABS: Absolute Neutrophil Count 6.1 X10^3/uL (2.0-7.7); Basophil# 0.05 X10^3/uL; Basophil% 0.6 % (0-1); Eosinophils% 1.3 % (0-5); Hematocrit 45.1 % (40-54); Hemoglobin 14.6 g/dL (13.0-16.5); Lymphocyte % 12.8 % (19-41); Mean Corp Hgb Conc 32.4 g/dL (32-36); Mean Corpuscular Hgb 30.7 pg (27.0-32.0); Mean Corpuscular Volume 94.9 fL (80-94); Mean Platelet Vol. 10.4 fl (6.2-12.0); Monocyte# 0.51 X10^3/uL; Monocyte% 6.5 % (0-10); NRBC Flagged by Analyzer 0 % (0-5); Neutrophil # 6.06 X10^3/uL (2.7-7.7); Neutrophil % 77.9 % (47-70); Platelet Count 303 K/mm3 (150-450); RBC Distribution Width CV 14.1 % (11.6-14.6); RBC Distribution Width SD 49.5 fl (35.1-43.9); Red Blood Count 4.75 M/mm3 (4.6-6.2); White Blood Count 7.8 K/mm3 (4.4-11.0)
[2024-04-13 10:24] LABS: Prothrombin Time (Protime)PT. 22.3 SECONDS (11.7-14.9)
[2024-04-13 11:31] LABS: ALB/GLOB Ratio 0.9 RATIO (0.9-2.4); AST(SGOT) 20 U/L (15-37); Alanine Aminotransfer ALT/SGPT 21 U/L (16-61); Albumin, Serum 3.3 g/dL (3.2-5.0); Alkaline Phosphatase 72 U/L (45-117); Anion Gap 8 (5-15); BUN 34 mg/dL (7-18); BUN/Creat Ratio 18.2 RATIO (10-20); Calcium,Total 9.2 mg/dL (8.5-10.1); Chloride 107 mmol/L (98-107); Creatinine, Serum 1.87 mg/dL (0.70-1.30); EST Glomerular Filtration Rate 38 mL/min (>60); Est Glom Filt Rate - Afr Amer 46 mL/min (>60); Globulin 3.8 g/dL (2.2-4.2); Glucose 244 mg/dL (74-106); Lipase 51 U/L (13-75); Potassium 4.2 mmol/L (3.5-5.1); Protein, Total 7.1 g/dL (6.4-8.2); Sodium Level 137 mmol/L (136-145)
[2024-04-13 16:06] LABS: Hemoglobin A1c 7.4 % (3.8-5.6)
== END | disposition home or self-care (01) ==
LOC: MFPLAB 08:41
PROVIDERS: PCP Family Medicine; Visit Provider Family Medicine
DX: E11.65 Type 2 diabetes mellitus with hyperglycemia (principal)
CPT/HCPCS: 36415; 80053; 83036; 83690; 85025; 85610

== ENCOUNTER → 2024-10-11 | Outpatient (CLI) | payer MEDICARE, OTHER, SELFPAY ==
--- NOTE | 2024-10-11 10:20 | RAD_ITS ---
PROCEDURE: LUMBAR SPINE 2 OR 3 VIEWS REASON FOR EXAM: Lower extremity pain and weakness. TECHNIQUE: AP and lateral views were obtained. COMPARISON: None. FINDINGS: Normal lumbar vertebral heights. No evidence of fracture. Marked degree of disc space narrowing at the L2-L3 level with subchondral sclerosis and anterior spondylosis. Disc space narrowing at the L3-L4 and L4-L5 levels. Grade 2 anterior listhesis of L5 on S1 due to spondylolysis of the pars interarticularis of the L5 vertebrae. Facet joint osteoarthritis. RAD/Lumbar Spine 2 or 3 Views IMPRESSION: ADVANCED DEGENERATIVE CHANGES OF THE LUMBAR SPINE. Grade 2 anterior listhesis of L5 on S1 due to spondylolysis of the pars interar ticularis of the L5 vertebrae. Reading Location: [id number]
[2024-10-11 11:02] LABS: Hematocrit 47.6 % (40-54); Hemoglobin 15.3 g/dL (13.0-16.5); Mean Corp Hgb Conc 32.1 g/dL (32-36); Mean Corpuscular Hgb 30.6 pg (27.0-32.0); Mean Corpuscular Volume 95.2 fL (80-94); Mean Platelet Vol. 10.2 fl (6.2-12.0); Platelet Count 328 K/mm3 (150-450); RBC Distribution Width CV 14.9 % (11.6-14.6); RBC Distribution Width SD 52.5 fl (35.1-43.9); White Blood Count 6.9 K/mm3 (4.4-11.0)
[2024-10-11 20:27] LABS: Microalbumin,Random Urine 74.4 mg/L (NO RANGE EST.); Microalbumin:Creatinine Ratio 313.9 mg/g CRE
[2024-10-12 02:14] LABS: ALB/GLOB Ratio 1.3 RATIO (0.9-2.4); AST(SGOT) 27 U/L (<=37); Alanine Aminotransfer ALT/SGPT 20 U/L (<=46); Alkaline Phosphatase 60 U/L (40-129); Anion Gap 13 (5-15); BUN 33 mg/dL (4-19); BUN/Creat Ratio 19.4 RATIO (10-20); Calcium 9.9 mg/dL (7.6-11.0); Carbon Dioxide 19.6 mmol/L (22.0-29.0); Chloride 102 mmol/L (96-108); Creatinine, Serum 1.7 mg/dL (0.8-1.3); EST Glomerular Filtration Rate 42 (>60); Glucose 221 mg/dL (70-99); Potassium 4.8 mmol/L (3.3-5.1); Protein, Total 7.1 g/dL (5.9-8.4); Sodium Level 135 mmol/L (133-145); Total Bilirubin 0.38 mg/dL (0.00-1.30); Vitamin D,25 Hydroxy 25.2 ng/mL (30-100)
== END | disposition home or self-care (01) ==
PROVIDERS: PCP Family Medicine; Referring Provider Family Medicine; Visit Provider Family Medicine
DX: E11.22 Type 2 diabetes mellitus with diabetic chronic kidney disease (principal); E11.51 Type 2 diabetes mellitus with diabetic peripheral angiopathy without gangrene; N18.32 Chronic kidney disease, stage 3b; R29.898 Other symptoms and signs involving the musculoskeletal system
CPT/HCPCS: 36415; 72100; 80053; 82043; 82306; 82570; 85027

== ENCOUNTER → 2024-11-21 | Outpatient (CLI) | payer MEDICARE, OTHER, SELFPAY ==
--- NOTE | 2024-11-21 10:38 | MRI_ITS ---
EXAM: Noncontrast MRI of the lumbar spine. CLINICAL HISTORY: Spondylolisthesis. Leg weakness. Back and left leg pain. Prior surgery 1986, without surgical specifics provided. COMPARISON: Lumbar spine radiographs 10/11/2024. No prior lumbar spine MRI. TECHNIQUE: Multi planar, multisequence MRI images of the lumbar spine were obtained without IV contrast. FINDINGS: There is chronic appearing mild height loss of L5. No acute lumbar vertebral body fracture or abnormal marrow replacement process is demonstrated. The conus terminates at T12-L1. The included lower spinal cord and lower thoracic intervertebral disc spaces are unremarkable. Minimal grade 1 retrolisthesis of L2 relative to L3. There is grade 1-2 anterolisthesis of L5 relative to S1. Moderate reactive endplate changes at the L2-3 level. Included portions of the sacrum and SI joints are intact. The included retroperitoneal and paraspinal soft tissues show no specific abnormality. Suggestion of prior posterior decompression at the L5-S1 level. L1-2: No focal disc herniation, significant central spinal canal, or neural foraminal narrowing. [id number] degenerative facet changes. L2-3: There is severe degenerative disc disease at this level. There is lobulated contour of the endplates at this level, without keith cortical destruction. Posterior disc osteophyte complex causes moderate central spinal canal stenosis. No focal disc herniation. Moderate bilateral neural foraminal narrowing and degenerative facet changes. L3-4: Asymmetric right disc bulge causes mild right central spinal canal narrowing. No focal disc herniation. Mild left and moderate right neural foraminal narrowing. Moderate degenerative facet changes. L4-5: Mild disc bulge without focal disc herniation or significant central spinal canal narrowing. There appears to be posterior decompression at this level. Moderate bilateral neural foraminal narrowing and moderate degenerative facet changes. L5-S1: Posterior decompression at this level. Mild diffuse disc bulge, without focal disc herniation or significant central spinal canal narrowing. Severe bilateral neural foraminal narrowing. MRI/Spine Lumbar (Routine) IMPRESSION: No acute bony abnormality of the lumbar spine. Moderate multilevel degenerative disc and facet disease in the lumbar spine. S evere disc space narrowing at L2-3 and L5-S1. Areas of focal subluxation as described above. There appears to be posterior decompression at L4-5 and L5-S1. Moderate centra l spinal canal narrowing at L2-3 due to a diffuse disc bulge and ligamentum flavum/facet hypertrophy. Multilevel neural foraminal narrowing as described level by level above, to a s evere degree at the L5-S1 level. Reading Location: [facility]
== END | disposition home or self-care (01) ==
LOC: MRI 10:22
PROVIDERS: PCP Family Medicine; Referring Provider Family Medicine; Visit Provider Family Medicine
DX: M43.10 Spondylolisthesis, site unspecified (principal)
CPT/HCPCS: 72148

== ENCOUNTER 2025-01-12 09:00 | Outpatient (RCR) | payer MEDICARE, OTHER, SELFPAY ==
--- NOTE | 2025-01-11 11:08 | HP.PTEVAL ---
Patient's Visit Information Visit Information Visit Information: BRENDON DAVID is a 74 year old M referred to Physical Therapy by Dr. Per Pond MD with a diagnosis of SPONDYLOLISTHESIS ,LUMBAR. Date of Evaluation: 01/11/25 Physical Therapist: Carlos Flores PT, Cert MDT, OCS Visit Plan Frequency: 2x /Week Duration: 4 Weeks Plan: PT INTERVENTIONS DLS ,POSTURAL EX'S ,BLE STRENGTHENING ,LE FLEXABILITY ,ACTIVITY MODIFICATION AND MODALTIES Subjective Subjective: This 74 y/o male presents to physical therapy for lumbar radiculopathy with radicular symptoms left leg.Patient seen DR Pond recommended PT. lumbar spine x-rays today as well as x-rays and an MRI he had previously. These show prior L5-S1 noninstrumented fusion for severe spondylolisthesis. This seems stable. L3-4 shows grade 1 spondylolisthesis with mild dynamic instability on flexion-extension views. L2-3 shows severe disc height loss with Modic changes with severe disc degeneration and foraminal stenosis bilaterally. Mild central stenosis L2-3 and L3-4 noticed. Postsurgical changes of laminectomy and noninstrumented fusion L5-S1. Patient has had lumbar fusion 1977. Patient has not seen pain management in past but plans to see Pain management December 16 .Also DR recommended Neurologist. Symptoms located to hamstrings and radiates in leg as walking further distances. Patient has weakness in legs. Aggravating factors walking/standing ,bending and lifting. Alleviating rest. No medication. Patient sleeping okay at night. Patient has occasional paresthesia/tingling in legs. Coughing/sneezing-. Bowel/bladder-. No falls. Patient has had prior PT in past. Patient condition affects QOL and function/job demands. Patient goals to get stronger and avoid surgery. 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 Pain Bilateral Back: Pain Intensity (Out of 10): 2 Pain Intensity Range: 10 Left Lower Extremity: Pain Intensity (Out of 10): 2 Pain Intensity Range: 10 Objective Objective: POSTURE: mild forward posture GAIT: reciprocal pattern slow randell hips/knees flexed NEURO: denies paresthesia/tingling ,reflexes L3-4,L4-5,L5-S1 1/3 FLEXABILITY: hamstrings mod tight MMT: ( peak force) quads right 7.2 ,left 8.2 ,hamstrings right 6.9 ,left 6.6 ,hip flexion 0 ,ankle 4/5 LUMBAR ROM: flexion mod loss ,extension severe loss ,side glides mod loss Special Tests L/S Slump test left side: Negative L/S Slump test right side: Negative L/S Left Straight Leg Raise: Negative L/S Right Straight Leg Raise: Negative Balance/Special Test Scores Oswestry Low Back Score: 31 Goals Goal 1:: Patient to be I with HEP for back Goal Time Frame: 4-6 Weeks Goal 2:: Patient to improve peak force quads/hams/hip by 5-10# to improve function and gait Goal Time Frame: 4-6 Weeks Goal 3:: Patient to improve back oswestry score by 5 points to improve QOL and function. Goal Time Frame: 4-6 Weeks Goal 4:: Patient to improve lumbar ROM for function of recovery for job demands Goal Time Frame: 4-6 Weeks Goal 5:: Patient to demonstrate 40% improvement with less pain and improve function with gait Goal Time Frame: 4-6 Weeks Rehabilitation Potential Physical Therapy Diagnosis: This patient has lumbar radiculopathy severe stenosis with pain lumbar and left leg ,weakness legs ,poor lumbar ROM ,worse with positioning and motion testing worse with walking/standing better sitting thus benefit from skilled PT Rehabilitation Potential: Fair Anticipated Interventions Patient/Client Instruction: Educate patient on: Condition and Plan of Care For the Purpose of:: To decrease pain, To increase ROM, To improve muscle performance and motor function, To improve ability to perform ADL's, To increase tolerance to activity/condition/position, To improve ability of physical actions for home/community/work/leisure, To improve gait and locomotor functions, To increase flexibility/ROM and To improve tolerance to ADL's Therapeutic Exercise to Include: Strength training, Body mechanics, Postural training, Flexibilty training and Dynamic Lumbar Stabilization Comment: BLE -QUADS/HAMS/HIP For the Purpose of:: To decrease pain, To increase ROM, To improve muscle performance and motor function, To improve ability to perform ADL's, To increase tolerance to activity/condition/position, To improve ability of physical actions for home/community/work/leisure, To improve health of tissue, To decrease soft tissue restriction and To increase flexibility/ROM TENS: Yes IF ES: Yes Cryotherapy (ice pack, ice massage): Yes Thermo therapy (hot pack): Yes Ultrasound (thermal/non thermal): Yes For the Purpose of:: To decrease pain, To increase ROM, To improve health of tissue and To decrease soft tissue restriction Text: Thank you for the opportunity to evaluate your patient. For Medicare and Medicare HMO plans, please review the plan of care and approve it. It will need to be FAXED BACK to us at [phone] for Medicare purposes. For Medicare only, by signing this I certify the plan of care. Please let me know if there are questions or concerns regarding this plan of care. Physician Signature: Date:
--- NOTE | 2025-03-28 12:46 | HP.PT.NRP ---
Patient Information Patient Information: BRENDON DAVID was seen in my office for initial evaluation on 01/11/25. The following Plan of Care was established for this patient: POC Established Initial Frequency: 2x /Week Initial Duration: 4 Weeks Anticipated Interventions Patient/Client Instruction: Educate patient on: Condition and Plan of Care For the Purpose of:: To decrease pain, To increase ROM, To improve muscle performance and motor function, To improve ability to perform ADL's, To increase tolerance to activity/condition/position, To improve ability of physical actions for home/community/work/leisure, To improve gait and locomotor functions, To increase flexibility/ROM and To improve tolerance to ADL's Therapeutic Exercise to Include: Strength training, Body mechanics, Postural training, Flexibilty training and Dynamic Lumbar Stabilization For the Purpose of:: To decrease pain, To increase ROM, To improve muscle performance and motor function, To improve ability to perform ADL's, To increase tolerance to activity/condition/position, To improve ability of physical actions for home/community/work/leisure, To improve health of tissue, To decrease soft tissue restriction and To increase flexibility/ROM TENS: Yes IF ES: Yes Cryotherapy (ice pack, ice massage): Yes Thermo therapy (hot pack): Yes Ultrasound (thermal/non thermal): Yes For the Purpose of:: To decrease pain, To increase ROM, To improve health of tissue and To decrease soft tissue restriction Last Seen Last Seen: This patient was last seen in our office . Pertinent comments regarding their Physical therapy will appear below: Patient was seen for PT for HEP for lumbar pain At this point I will be discontinuing this patient from physical therapy. I would be happy to see this patient again in the future if found appropriate by the physician. Thank you! Carlos Flores, PT, Cert MDT, OCS Balance/Gait/Functional tests Balance/Special Test Scores Oswestry Low Back Score: 31
== END 2025-01-12 19:00 | disposition home or self-care (01) ==
LOC: PT 09:00
PROVIDERS: PCP Family Medicine; Referring Provider Orthopaedic Surgery Orthopaedic Surgery of the Spine; Visit Provider Orthopaedic Surgery Orthopaedic Surgery of the Spine
DX: M43.16 Spondylolisthesis, lumbar region (principal)
CPT/HCPCS: 97110; 97162

== ENCOUNTER → 2025-03-07 | Outpatient (CLI) | payer MEDICARE, OTHER, SELFPAY ==
[2025-03-07 18:12] LABS: Hematocrit 43.4 % (40-54); Hemoglobin 14.3 g/dL (13.0-16.5); Immature Granulocytes Count 0.040 X10^3/uL (0.0-0.0); Mean Corp Hgb Conc 32.9 g/dL (32-36); Mean Corpuscular Volume 95.2 fL (80-94); Mean Platelet Vol. 9.9 fl (6.2-12.0); NRBC Flagged by Analyzer 0 % (0-5); Platelet Count 275 K/mm3 (150-450); RBC Distribution Width CV 15.0 % (11.6-14.6); RBC Distribution Width SD 52.7 fl (35.1-43.9); Red Blood Count 4.56 M/mm3 (4.6-6.2); White Blood Count 7.0 K/mm3 (4.4-11.0)
[2025-03-07 18:20] LABS: Prothrombin Time (Protime)PT. 16.6 SECONDS (11.7-14.9)
[2025-03-07 18:39] LABS: Creatinine, Urine (random) 301.00 mg/dL (39.00-259.00); Microalbumin,Random Urine 62.6 mg/L (<20 mg/L)
[2025-03-07 19:00] LABS: AST(SGOT) 19 U/L (<=37); Alanine Aminotransfer ALT/SGPT 17 U/L (<=46); Albumin, Serum 3.9 g/dL (3.4-4.8); Alkaline Phosphatase 59 U/L (40-129); Anion Gap 13 (5-15); BUN 32 mg/dL (4-19); BUN/Creat Ratio 15.6 RATIO (10-20); Calcium,Total 9.6 mg/dL (7.6-11.0); Carbon Dioxide 19.5 mmol/L (21.0-32.0); Chloride 105 mmol/L (98-108); Globulin 3.0 g/dL (2.2-4.2); Glucose 185 mg/dL (70-99); Potassium 4.5 mmol/L (3.3-5.1)
== END | disposition home or self-care (01) ==
LOC: MFPLAB 15:38
PROVIDERS: PCP Family Medicine; Referring Provider Family Medicine; Visit Provider Family Medicine
DX: E11.22 Type 2 diabetes mellitus with diabetic chronic kidney disease (principal); I74.9 Embolism and thrombosis of unspecified artery; E11.51 Type 2 diabetes mellitus with diabetic peripheral angiopathy without gangrene; N18.32 Chronic kidney disease, stage 3b
CPT/HCPCS: 36415; 80053; 82043; 82570; 83036; 84443; 85025; 85610

== ENCOUNTER → 2025-03-17 | Outpatient (CLI) | payer MEDICARE, OTHER, SELFPAY ==
[2025-03-17 15:55] LABS: Hematocrit 44.4 % (40-54); Hemoglobin 14.7 g/dL (13.0-16.5); Immature Granulocytes Count 0.140 X10^3/uL (0.0-0.0); Mean Corp Hgb Conc 33.1 g/dL (32-36); Mean Corpuscular Volume 95.5 fL (80-94); Mean Platelet Vol. 9.8 fl (6.2-12.0); NRBC Flagged by Analyzer 0 % (0-5); Platelet Count 330 K/mm3 (150-450); RBC Distribution Width CV 14.6 % (11.6-14.6); RBC Distribution Width SD 51.4 fl (35.1-43.9); Red Blood Count 4.65 M/mm3 (4.6-6.2); White Blood Count 9.7 K/mm3 (4.4-11.0)
[2025-03-17 16:32] LABS: AST(SGOT) 20 U/L (<=37); Alanine Aminotransfer ALT/SGPT 17 U/L (<=46); Albumin, Serum 4.0 g/dL (3.4-4.8); Alkaline Phosphatase 57 U/L (40-129); Anion Gap 12 (5-15); BUN 42 mg/dL (4-19); BUN/Creat Ratio 22.0 RATIO (10-20); Calcium,Total 9.6 mg/dL (7.6-11.0); Carbon Dioxide 22.1 mmol/L (21.0-32.0); Chloride 102 mmol/L (98-108); Free T3 1.7 pg/mL (2.18-3.98); Globulin 2.9 g/dL (2.2-4.2); Glucose 79 mg/dL (70-99); Potassium 4.3 mmol/L (3.3-5.1)
== END | disposition home or self-care (01) ==
LOC: MTLAB 11:39
PROVIDERS: PCP Family Medicine; Referring Provider Family Medicine; Visit Provider Family Medicine
DX: E03.9 Hypothyroidism, unspecified (principal); E11.51 Type 2 diabetes mellitus with diabetic peripheral angiopathy without gangrene; Z51.81 Encounter for therapeutic drug level monitoring
CPT/HCPCS: 36415; 80053; 83036; 84439; 84443; 84481; 85025

== ENCOUNTER 2025-06-03 14:00 | Inpatient (IN) | payer MEDICARE, OTHER, SELFPAY ==
[2025-06-03] VITALS (7 sets, daily range): BP systolic 113–141; BP diastolic 57–85; PULSE 78–80; RESP 16–18; TEMP 36.6–37.4; O2SAT 88–99; BMI 36.0; BMI 34.7
--- OUTSIDE RECORDS SUMMARY | 2025-06-03 14:39 | XMS RPT_ITS | CCD ---
Author Organization [facility] CliniSytn Care Team Providers Care Stencil Typist Name Role Phone Unknown, Unknown Unavailable Unavailable Unavailable Unavailable Key Jasso Unavailable Key Jasso Unavailable Sadia Dickson Unavailable Natividad Rodriguez Unavailable Unavailable Sidagam, Brian Unavailable Unavailable Timo, Uriah Unavailable Unavailable Analisa Barrera Unavailable Unava ilable Dr. Natividad Rodriguez Attending Unavailable Dr. Key Jasso Primary Care Unavailable Dr. Key Jasso Primary Care Unavailable Dr. Natividad Rodriguez Attending Unavailable NATIVIDAD RODRIGUEZ Referring Unavailable NATIVIDAD RODRIGUEZ Attending Unavailable Dr. Key Jasso Primary Care Unavailable Dr. Key Jasso Primary Care Unavailable Timo, [place] Attending Unavailable Timo, [place] Admitting Unavailable Timo, [place] Referring Unavailable UNKNOWN, PCP Referring Unavailable Dr. Key Jasso Primary Care Unavailable NATIVIDAD RODRIGUEZ Attending Unavailable NATIVIDAD RODRIGUEZ Admitting Unavailable Dr. Key Jasso Primary Care Unavailable Timo, [place] Attending Unavailable Timo, [place] Admitting Unavailable Timo, [place] Referring Unavailable NATIVIDAD RODRIGUEZ Attending Unavailable Dr. Key Jasso Primary Care Unavailable Timo, Uriah Attending Unavailable UNKNOWN, UNKNOWN Primary Care Unavailable Dr. Key Jasso Primary Care Unavailable NATIVIDAD RODRIGUEZ Attending Unavailable Dr. Key Jasso Primary Care Unavailable Dr. Key Jasso Referring Unavailable Timo, [place] Attending Unavailable Timo, Uriah Attending Unavailable UNKNOWN, UNKNOWN Primary Care Unavailable NATIVIDAD RODRIGUEZ Referring Unavailable Dr. Key Jasso Primary Care Unavailable Dr. Sadia Dickson Attending Unav ailable Romero, Dr. Key Das Primary Care Unavailable Skip, Dr. Sadia Cabrera Referring Unav elsyable Skip, Dr. Sdaia Cabrera Attending Unav elsyable Romero, Dr. Giraldo A Primary Care Unavailable Timo, Uriah Attending Unavailable Timo, [place] Referring Unavailable Romero, Dr. Key Das Referring Unavailable Romero, Dr. Key Das Primary Care Unavailable Timo, Uriah Attending Unavailable Romero, Dr. Giraldo A Primary Care Unavailable Romero, Dr. Giraldo A Referring Unavailable Timo, Uriah Attending Unavailable Romero, Dr. Giraldo A Primary Care Unavailable Romero, Dr. Key Das Referring Unavailable Timo, Uriah Attending Unavailable Romero, Dr. Giraldo A Primary Care Unavailable Romero, Dr. Key Das Referring Unavailable Timo, Uriah Attending Unavailable UNKNOWN, UNKNOWN Primary Care Unavailable LESLEE HEARN Referring Unavailable Heather Burrows Attending Unavailable NATIVIDAD RODRIGUEZ Referring Unavailable Romero, Dr. Key Das Primary Care Unavailable NATIVIDAD RODRIGUEZ Attending Unavailable NATIVIDAD RODRIGUEZ Referring Unavailable NATIVIDAD RODRIGUEZ Attending Unavailable Romero, Dr. Giraldo A Primary Care Unavailable Key Jasso MD Primary Care Provider NATIVIDAD RODRIGUEZ Referring Unavailable KEY JASSO A Primary Care Unavailable Key Jasso MD Primary Care Provider KEY JASSO Primary Care Unavailable LIGRACEWN Attending Unavailable KEY JASSO A Primary Care Unavailable SKIP, SADIA B Attending Unavailable SKIP, SADIA B Referring Unavailable KEY JASSO A Primary Care Unavailable SKIP, SADIA B Attending Unavailable KEY JASSO A Primary Care Unavailable SKIP, SADIA B Attending Unavailable KEY JASSO A Primary Care Unavailable LINATIVIDAD Attending Unavailable KEY JASSO A Primary Care Unavailable Romero PIERSON, Dr. Giraldo Primary Care Provider Romero PIERSON, Dr. Giraldo Attending Provider [phone] eKy Jasso MD Referring Provider [phone] Key Jasso MD Primary Care Provider Romero PIERSON, Dr. Giraldo Attending Provider [phone] Romero PIERSON, Dr. Giraldo Referring Provider Salty PIERSON, Dr. Albarado Attending Provider Brendan PIERSON, Dr. De Luna Attending Provider Salty PIERSON, Dr. Albarado Referring Provider Romero PIERSON, Dr. Giraldo Primary Care Provider Romero PIERSON, Dr. Giraldo Referring Provider Romero PIERSON, Dr. Giraldo Attending Provider Jasso, Key Referring Unavailable Jasso, Key Attending Unavailable Jasso, Key Primary Care Unavailable Jasso, Key Attending Unavailable Jasso, Key Primary Care Unavailable Jasso, Key Primary Care Unavailable Jasso, Key Referring Unavailable Salty, Per Attending Unavailable Jasso, Key Primary Care Unavailable Calixto Cardona Attending Unavailable Jasso, Key Primary Care Unavailable Jasso, Key Referring Unavailable Jasso, Key Attending Unavailable Jasso, Key Primary Care Unavailable Jasso, Key Referring Unavailable Jasso, Key Attending Unavailable Salty, Per Attending Unavailable Jasso, Key Primary Care Unavailable Bing Pondag Referring Unavailable Jasso, Key Primary Care Unavailable Jasso, Key Referring Unavailable Jasso, Key Attending Unavailable Allergies Allergy Classification Reported Allergen(s) Allergy Type Date of Onset Reaction(s) Facility (1 source) ALLERGIES NOT ON FILE; 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: [ALLERGIES NOT ON FILE] Propensity to adverse reactions (disorder) [facility] 2 Repository Medications Current Medications Medication Drug Class(es) Dates Sig (Normalized) Sig (Original) acarbose 100 mg oral tablet (20 sources) alpha-Glucosidase Inhibitor Start: 07-05-2023 take 1 tablet by mouth three times daily acarbose (Precose) 100 mg tablet Take 1 tablet (100 mg) by mouth 3 times daily (morning, midday, late afternoon). 07/05/2023 Active Start: 11-12-2016 take 1 tablet by sweetie twice daily Acarbose (Precose) 100 MG tablet Active 100 mg PO TWICE A DAY November 12, 2016 12:00am Start: 11-12-2016 take 50-100 mg by mo [facility] three times daily at mealtime Acarbose (Precose) 100 MG tablet Active 50 - 100 MG PO 3 TIMES DAILY WITH MEALS November 12, 2016 12:00am acetaminophen 500 mg oral tablet (9 sources) Start: 12-10-2022 acetaminophen (acetaminophen Pain Relief) 500 mg tablet Take 1 tablet (500 mg) by mouth. 12/10/2022 Active Start: 12-09-2022 End: 12-13-2022 take 2 tablets by mouth every eight hours acetaminophen 500 mg oral tablet ; 2 tab(s) by gastrostomy tube every 8 hours -.ADOD 12/10 - .Meds to Beds - .Patient Location [place] [address] Quantity: 30 Refills: 0 Ordered: 09-Dec-2022 Cathie Gregory Start: 09-Dec-2022 End: 13-Dec-2022 Generic Substitution Allowed Comments: This product contains acetaminophen. Do not use with any other product containing acetaminophen to prevent possible liver damage. Comment on above: This product contain s acetaminophen. Do not use with any other product containing acetaminophen to prevent possible liver damage. ampicillin 2000 mg / sulbactam 1000 mg injection (14 sources) Penicillin-class Antibacterial, beta Lactamase Inhibitor Start: 3 End: 4 ampicillin-sulbact am 3 gram injection ascorbic acid 1000 mg oral tablet (20 sources) Vitamin C Start: 1 take 1 g by mouth once daily Ascorbic Acid (Vitamin C) (Vitamin C) 1,000 mg Tablet Active 1 g PO DAILY May 08, 2021 12:00am Vitamin C 1000 M G Oral Tablet Quantity: 0 Refills: 0 Ordered: 30-Oct-2022 DO Active take 1 tablet by mouth once abiel y ascorbic acid 1000 mg oral tablet ; 1 tab(s) by gastrostomy tube once a day Quantity: 0 Refills: 0 Ordered: 09-Dec-2022 Cathie Gregory Generic Substitution Allowed aspirin 325 mg oral tablet (5 sources) Platelet Aggregation Inhibitor, Nonsteroidal Anti-inflammatory Drug Start: 12-09-2022 End: 01-07-2023 aspirin 325 mg oral tablet ; 1 tab(s) by gastrostomy tube once a day -.ADOD 12/10 - .Meds to Beds - .Patient Location [place] [address]; Quantity: 30 Refills: 0 Ordered: 09-Dec-2022 Cathie Gregory Start: 09-Dec-2022 End: 07-Jan-2023 Generic Substitution Allowed Comments: Take with food or milk. Start: 05-15-2021 take 81 mg by mouth at breakfa st Aspirin Active 81 MG PO WITH BREAKFAST 0 May 15, 2021 3:14pm Comment on above: Take with food or mi lk. atenolol 50 mg oral tablet (20 sources) beta-Adrenergic Gabe Start: 11-12-2016 take 1 tablet by mouth twice daily Atenolol 50 MG tablet Active 50 mg PO TWICE A DAY November 12, 2016 12:00am Atenolol 50 MG O ral Tablet Quantity: 0 Refills: 0 Ordered: 30-Oct-2022 DO Active atorvastatin 20 mg oral tablet (18 sources) HMG-CoA Reductase Inhibitor Start: 05-15-2021 take 1 tablet by mouth at bedtime Atorvastatin 20 mg Tablet Active 20 mg PO AT BEDTIME 30 May 15, 2021 12:00am calcium carbonate 1500 mg oral tablet (3 sources) take 1 tablet by mouth once daily calcium (as carbonate) 600 mg oral tablet ; 1 tab(s) by gastrostomy tube once a day Quantity: 0 Refills: 0 Ordered: 09-Dec-2022 Cathie Gregory Generic Substitution Allowed cholecalciferol 0.025 mg oral capsule (20 sources) Vitamin D Start: 05-08-2021 take 1 capsule by mouth once daily Cholecalciferol (Vitamin D3) (Vitamin D3) 25 mcg (1,000 unit) Capsule Active 50 ug PO DAILY May 08, 2021 12:00am Vitamin D 1000 U NIT TABS Quantity: 0 Refills: 0 Ordered: 30-Oct-2022 DO Active take 2 tablets by mouth once kaya ly cholecalciferol 25 mcg (1000 intl units) oral tablet ; 2 tab(s) by gastrostomy tube once a day Quantity: 0 Refills: 0 Ordered: 09-Dec-2022 Cathie Gregory Generic Substitution Allowed take 2 tablets by mouth once kaya ly cholecalciferol 25 mcg oral capsule ; 2 tab(s) orally once a day Quantity: 0 Refills: 0 Ordered: 13-Nov-2022 Cinthya Keith Generic Substitution Allowed cinnamon bark 500 mg oral capsule (20 sources) Start: 05-20-2019 take 1 capsule by mouth twice daily Cinnamon Bark 500 MG capsule Active 500 mg PO TWICE A DAY May 20, 2019 12:00am doxycycline hyclate 100 mg oral capsule (17 sources) Tetracycline -class Drug Start: 07-31-2023 End: 09-29-2023 take 1 capsule by mouth twice daily doxycycline (Vibramycin) 100 mg capsule Indications: Actinomycosis, cervicofacial Take 1 capsule (100 mg) by mouth 2 times a day. 120 capsule 21 07/31/2023 09/29/2023 Active Start: 05-10-2023 take 1 capsule by mo uth twice daily doxycycline (Vibramycin) 100 mg capsule Take 1 capsule (100 mg) by mouth 2 times a day. 0 05/10/2023 Active Start: 12-19-2022 take 1 capsule by mo uth twice daily Doxycycline Hyclate 100 MG Oral Capsule Take 1 capsule twice daily Quantity: 180 Refills: 3 Ordered: 31-Mar-2023 Sadia Dickson MD Start : 19-Dec-2022 Active DOXYCYCLINE HYCL ATE ORAL Take by mouth. Active DOXYCYCLINE HYCL ATE ORAL Take by mouth. 0 Active empagliflozin 25 mg oral tablet (20 sources) Sodium-Glucose Cotransporter 2 Inhibitor Start: 05-08-2021 take 1 tablet by mouth once daily Empagliflozin (Jardiance) 25 mg tablet Active 25 mg PO DAILY May 08, 2021 12:00am fluconazole 200 mg oral tablet (20 sources) Azole Antifungal Start: 11-17-2022 End: 12-09-2023 take 2 tablets by mouth once daily fluconazole (Diflucan) 200 mg tablet TAKE 2 TABLETS BY MOUTH ONCE DAILY 60 tablet 1 11/17/2022 11/17/2023 Active Start: 11-17-2022 End: 03-31-2023 Fluconazole 200 MG Oral Tabl et Quantity: 60 Refills: 0 Ordered: 17-Nov-2022 DO Start : 17-Nov-2022 End : 31-Mar-2023 Complete Comment on above: Do not take this lalo g if you are .Finish all this medication unless otherwise directed by prescriber. furosemide 20 mg oral tablet (20 sources) Loop Diuretic Start: 9 take 1 tablet by mouth once daily Furosemide 20 MG tablet Active 20 mg PO DAILY May 20, 2019 12:00am Furosemide 20 MG Oral Tablet Quantity: 0 Refills: 0 Ordered: 30-Oct-2022 DO Active glimepiride 4 mg oral tablet (20 sources) Sulfonylurea Start: 05-20-2019 take 1 tablet by mouth twice daily Glimepiride 4 MG tablet Active 4 mg PO TWICE A DAY May 20, 2019 12:00am dm Glimepiride 4 MG Oral Tablet Quantity: 0 Refills: 0 Ordered: 30-Oct-2022 DO Active take 1 tablet by mouth once abiel y glimepiride 4 mg oral tablet ; 1 tab(s) by gastrostomy tube once a day Quantity: 0 Refills: 0 Ordered: 10-Dec-2022 Cathie Gregory Generic Substitution Allowed hydrALAZINE hydrochloride 50 mg oral tablet (20 sources) Arteriolar Vasodilator Start: 06-05-2023 hydrALAZINE (Apresoline) 50 mg tablet Take 1 tablet (50 mg) by mouth. 06/05/2023 Active Start: 05-08-2021 take 50 mg by mouth at bedtime Hydralazine Active 50 MG PO AT BEDTIME May 08, 2021 10:34am Start: 11-12-2016 take 25 mg by mouth once daily Hydralazine Active 25 MG PO DAILY November 12, 2016 10:57am hydrALAZINE HCl - 50 MG Oral Tablet Quantity: 0 Refills: 0 Ordered: 30-Oct-2022 DO Active take 0.5 tablet by m outh in the morning, then take 1 tablet by mouth in the evening hydrALAZINE 50 mg oral tablet ; 0.5 tab by mouth in the morning and 1 tab by mouth in the evening Quantity: 0 Refills: 0 Ordered: 12-Nov-2022 Isamar Lovelace Generic Substitution Allowed icosapent ethyl 1000 mg oral capsule (18 sources) Start: 05-08-2021 Icosapent Ethy l (Vascepa) 1 gram capsule Active 2 g PO TWICE A DAY May 08, 2021 12:00am Kerendia 10 mg tablet tablet (7 sources) Start: 06-24-2023 take 1 tablet by mouth once daily Kerendia 10 mg tablet tablet Take 1 tablet (10 mg) by mouth once daily. 06/24/2023 Active Start: 06-24-2023 take 1 tablet by sweetie th once daily Kerendia 10 mg tablet tablet Take 1 tablet (10 mg) by mouth once daily. 0 06/24/2023 Active losartan potassium 100 mg oral tablet (20 sources) Angiotensin 2 Receptor Gabe Start: 11-12-2016 take 1 tablet by mouth at bedtime Losartan 100 MG tablet Active 100 mg PO AT BEDTIME November 12, 2016 12:00am Losartan Potassi um 100 MG Oral Tablet Quantity: 0 Refills: 0 Ordered: 30-Oct-2022 DO Active magnesium oxide 400 mg oral tablet (20 sources) Start: 11-12-2016 take 1 tablet by mouth once daily Magnesium Oxide 400 MG tablet Active 400 mg PO DAILY November 12, 2016 12:00am Magnesium Oxide 400 MG Oral Tablet Quantity: 0 Refills: 0 Ordered: 30-Oct-2022 DO Active Mounjaro 10 mg/0.5 mL pen injector (1 source) Start: 09-16-2024 inject 10 mg by subcutaneous injection every week Mounjaro 10 mg/0.5 mL pen injector INJECT TEN MG SUBCUTANEOUSLY (UNDER THE SKIN) WEEKLY 09/16/2024 Active Multivitamin preparation (16 sources) Start: 05-08-2021 take 1 tablet by mouth once daily Multivitamin Active 1 TABLET PO DAILY May 08, 2021 10:34am Start: 05-08-2021 take 1 tablet by sweetie th once daily Multivitamin Active 1 TABLET PO DAILY May 07, 2021 11:00pm Start: 05-08-2021 take 1 tablet by sweetie th once daily Multivitamin Active 1 TABLET PO DAILY May 08, 2021 12:00am take 1 tablet by sweetie th once daily multivitamin Multiple Vitamins oral tablet ; 1 tab(s) by gastrostomy tube once a day Quantity: 0 Refills: 0 Ordered: 09-Dec-2022 Cathie Gregory Generic Substitution Allowed take 1 tablet by sweetie th once daily multivitamin Multiple Vitamins oral tablet ; 1 tab(s) oral once a day Quantity: 0 Refills: 0 Ordered: 12-Nov-2022 Isamar Lovelace Generic Substitution Allowed Multivitamin Tablet (5 sources) Start: 05-08-2021 Multivitamin T ablet Active 1 {tbl} PO DAILY May 08, 2021 12:00am oxyCODONE hydrochloride 1 mg/ml oral solution (3 sources) Opioid Agonist Start: 12-09-2022 End: 12-15-2022 take 5 mL by mouth every six hours as needed oxyCODONE 5 mg/5 mL oral solution ; 5 milliliter(s) by gastrostomy tube every 6 hours x 7 days, As Needed -.Meds to Beds Dx: g89.18 Quantity: 140 Refills: 0 Ordered: 09-Dec-2022 Cathie Gregory Start: 09-Dec-2022 End: 15-Dec-2022 Generic Substitution Allowed Comments: Caution federal law prohibits the transfer of this drug to any person other than the person for whom it was prescribed.May cause drowsiness or dizziness.This prescription cannot be refilled.Using more of this medication than prescribed may cause serious breathing problems. Start: 11-17-2022 End: 11-23-2022 take 1 tablet by mouth every six hours oxyCODONE 5 mg oral tablet ; 1 tab(s) orally every 6 hours Quantity: 28 Refills: 0 Ordered: 17-Nov-2022 Christy Sousa Start: 17-Nov-2022 End: 23-Nov-2022 Generic Substitution Allowed Comments: Caution federal law prohibits the transfer of this drug to any person other than the person for whom it was prescribed.It is very important that you take or use this exactly as directed. Do not skip doses or discontinue unless directed by your doctor.May cause drowsiness or dizziness.This prescription cannot be refilled.Using more of this medication than prescribed may cause serious breathing problems. Comment on above: Caution federal law prohibits the transfer of this drug to any person other than the person for whom it was prescribed.It is very important that you take or use this exactly as directed. Do not skip doses or discontinue unless directed by your doctor.May cause drowsiness or dizziness.This prescription cannot be refilled.Using more of this medication than prescribed may cause serious breathing problems. Caution [place] law prohibits the transfer of this drug to any person other than the person for whom it was prescribed.May cause drowsiness or dizziness.This prescription cannot be refilled.Using more of this medication than prescribed may cause serious breathing problems. petrolatum 1 mg/mg topical ointment (2 sources) Start: 12-09-2022 Vaseline topical ointment ; Apply topically to affected area 2 times a day -.ADOD - .Meds to Beds - .Patient Location [place] [id number] Quantity: 1 Refills: 0 Ordered: 09-Dec-2022 Cathie Gregory Start: 25-Apr-2023 Generic Substitution Allowed Comments: For external use only. Comment on above: For external use onl y. pioglitazone 30 mg oral tablet (20 sources) Peroxisome Proliferator Receptor alpha Agonist, Peroxisome Proliferator Receptor gamma Agonist, Thiazolidinedione Start: 05-08-2021 Pioglitazone 30 mg tablet Active 15 mg PO DAILY May 08, 2021 12:00am Start: 05-08-2021 End: 11-02-2023 pioglitazone (Actos) 30 mg t ablet Take 1 tablet (30 mg) by mouth. 04/25/2023 Active Start: 05-08-2021 take 15 mg by mouth once daily Pioglitazone Active 15 MG PO DAILY May 08, 2021 12:00am Pioglitazone HCl - 30 MG Oral Tablet Quantity: 0 Refills: 0 Ordered: 30-Oct-2022 DO Active Psyllium Husk (3 sources) Start: 05-08-2021 take 3 g by mouth tw ice daily Psyllium Husk Active 3 GM PO TWICE A DAY May 08, 2021 10:34am Start: 05-08-2021 take 3 g by mouth twice daily Psyllium Husk Active 3 GM PO TWICE A DAY May 08, 2021 12:00am Selenium (13 sources) Start: 05-20-2019 take 200 ug by mouth once daily Selenium Active 200 MCG PO DAILY May 20, 2019 4:48pm Start: 05-20-2019 take 200 ug by mouth once abiel y Selenium Active 200 MCG PO DAILY May 19, 2019 11:00pm Start: 05-20-2019 take 200 ug by mouth once abiel y Selenium Active 200 MCG PO DAILY May 20, 2019 12:00am selenium 200 mcg oral tablet (3 sources) take 1 tablet by sweetie th once daily selenium 200 mcg oral tablet ; 1 tab(s) by gastrostomy tube once a day Quantity: 0 Refills: 0 Ordered: 09-Dec-2022 Cathie Gregory Generic Substitution Allowed take 1 tablet by mouth once abiel y selenium 200 mcg oral tablet ; 1 tab(s) orally once a day Quantity: 0 Refills: 0 Ordered: 13-Nov-2022 Cinthya Keith Generic Substitution Allowed Selenium 200 MCG tablet (5 sources) Start: 05-20-2019 take 1 tablet by mouth once daily Selenium 200 MCG tablet Active 200 ug PO DAILY May 20, 2019 12:00am semaglutide 14 mg oral tablet (7 sources) Start: 05-25-2023 Rybelsus 14 mg tablet tablet Take 1 tablet (14 mg) by mouth. 05/25/2023 Active sennosides, assisted 8.6 mg oral tablet (2 sources) Start: 12-09-2022 senna (sennosi kalen) 8.6 mg oral tablet ; 1 tab(s) by gastrostomy tube once a day (at bedtime) -. - .Meds to Beds - .Patient Location [place] [address] Quantity: 15 Refills: 0 Ordered: 09-Dec-2022 Cathie Gregory Start: 09-Dec-2022 Generic Substitution Allowed sodium chloride 0.111 meq/ml nasal spray (7 sources) Start: 12-09-2022 [place] 0.65% na ashley spray ; 2 spray(s) intranasally 4 to 6 times a day -.ADOD12/10 - .Meds to Beds - .Patient Location [place] [address] Quantity: 1 Refills: 2 Ordered: 09-Dec-2022 Cathie Gregory Start: 09-Dec-2022 Generic Substitution Allowed Comments: For the nose. Start: 12-09-2022 End: 12-09-2023 take 2 spray(s) nasal route four times daily sodium chloride ([place]) 0.65 % nasal spray USE 2 SPRAYS IN EACH NOSTRIL FOUR TIMES A DAY TO SIX TIMES PER DAY 104 mL 2 12/09/2022 12/09/2023 Active Comment on above: For the nose. spironolactone 50 mg oral tablet (20 sources) Aldosterone Antagonist Start: 05-20-20 take 1 tablet by mouth once daily Spironolactone 50 MG tablet Active 50 mg PO DAILY May 20, 2019 12:00am Spironolactone 5 0 MG Oral Tablet Quantity: 0 Refills: 0 Ordered: 30-Oct-2022 DO Active Tirzepatide (Mounjaro) 10 mg /0.5 mL pen injector (3 sources) Start: 01-05-2025 Tirzepatide (M ounjaro) 10 mg/0.5 mL pen injector Active 8 mg SC EVERY WEEK January 05, 2025 12:00am ubidecarenone 100 mg oral ca psule (20 sources) Start: 11-12-2016 Coenzyme Q10 ( Co Q-10) 100 MG capsule Active 100 mg PO DAILY November 12, 2016 12:00am Coenzyme Q-10 10 0 MG Oral Capsule Quantity: 0 Refills: 0 Ordered: 30-Oct-2022 DO Active take 1 capsule by mouth once kaya ly ubiquinone 100 mg oral capsule ; 1 cap(s) by gastrostomy tube once a day Quantity: 0 Refills: 0 Ordered: 09-Dec-2022 Cathie Gregory Generic Substitution Allowed vitamin k2 0.1 mg oral capsule (6 sources) Start: 05-08-2021 take 100 ug by mouth once daily Vitamin K2 Active 100 MCG PO DAILY May 08, 2021 12:00am warfarin sodium 4 mg oral tablet (20 sources) Vitamin K Antagonist Start: 10-29-2023 warfarin (Coumadin) 4 mg tablet 1 (ONE) TABLET BY MOUTH DIRECTED 10/29/2023 Active Start: 05-20-2019 Warfarin 5 MG tablet Active 0 .ROUTE .COMPLEX May 20, 2019 12:00am 5- SUMOWEFR Start: 05-20-2019 take 1 tablet by sweetie th once daily in the evening warfarin (Coumadin) 5 mg tablet Take 1 tablet (5 mg) by mouth once daily in the evening. 11/18/2022 Active Start: 05-20-2019 Warfarin Activ e 0 .ROUTE .COMPLEX May 19, 2019 11:00pm 5- SUMOWEFR Warfarin Sodium 1 MG Oral Tablet Quantity: 0 Refills: 0 Ordered: 30-Oct-2022 DO Active Warfarin Sodium 5 MG Oral Tablet Quantity: 0 Refills: 0 Ordered: 30-Oct-2022 DO Active warfarin 1 mg or al tablet ; 1 tab by PEG Thursday, , and Thursday in addition to the 5mg tab Quantity: 0 Refills: 0 Ordered: 09-Dec-2022 Cathie Gregory Generic Substitution Allowed warfarin 1 mg or al tablet ; 1 tab by mouth Thursday, , and Thursday in addition to the 5mg tab Quantity: 0 Refills: 0 Ordered: 13-Nov-2022 Cinthya Keith Generic Substitution Allowed Zinc (20 sources) Start: 05-08-2021 take 50 mg by mouth once daily Zinc Active 50 MG PO DAILY May 08, 2021 10:34am Start: 05-08-2021 take 1 tablet by sweetie th once daily Zinc 50 mg Tablet Active 50 mg PO DAILY May 08, 2021 12:00am Start: 05-08-2021 take 50 mg by mouth once daily Zinc Active 50 MG PO DAILY May 07, 2021 11:00pm Start: 05-08-2021 take 50 mg by mouth once daily Zinc Active 50 MG PO DAILY May 08, 2021 12:00am Zinc TABS Quanti ty: 0 Refills: 0 Ordered: 30-Oct-2022 DO Active Zinc Sulfate (3 sources) take 1 tablet by sweetie th once daily Zinc 140 mg (as elemental zinc 50 mg) oral tablet ; 1 tab(s) by gastrostomy tube once a day Quantity: 0 Refills: 0 Ordered: 09-Dec-2022 Cathie Gregory Generic Substitution Allowed take 1 tablet by mouth once abiel y Zinc 140 mg (as elemental zinc 50 mg) oral tablet ; 1 tab(s) orally once a day Quantity: 0 Refills: 0 Ordered: 13-Nov-2022 Cinthya Keith Generic Substitution Allowed Completed/Discontinued Medications Medication Drug Class(es) Dates Sig (Normalized) Sig (Original) cefdinir 300 mg oral capsule (5 sources) Cephalosporin Antibacterial Start: 01-01-2022 take 1 capsule by mouth every twelve hours Cefdinir 300 MG Oral Capsule TAKE 1 CAPSULE EVERY TWELVE HOURS DIRECTED Quantity: 20 Refills: 0 Ordered: 01-Jan-2022 DO Start : 01-Jan-2022 Active chlorhexidine gluconate 1.2 mg/ml mouthwash (20 sources) Start: 12-09-2022 chlorhexidine 0.12% mucous membrane liquid ; 15 milliliter(s) mucous membrane 4 times a day -.ADOD 12/10 - .Meds to Beds - .Patient Location [place] [address] Quantity: 1 Refills: 0 Ordered: 09-Dec-2022 Cathie Gregory Start: 09-Dec-2022 Generic Substitution Allowed Start: 11-17-2022 take 15 mL by mouth three times daily Peridex 0.12% mucous membrane liquid ; 15 milliliter(s) orally 3 times a day Quantity: 1 Refills: 3 Ordered: 17-Nov-2022 Christy Sousa Start: 3-Apr-2023 Generic Substitution Allowed Start: 11-12-2022 take 15 mL by mouth in the morning Chlorhexidine Gluconate 0.12 % Mouth/Throat Solution RINSE MOUTH WITH 15ML (1 CAPFUL) FOR 30 SECONDS AM AND PM AFTER TOOTHBRUSHING. EXPECTORATE AFTER RINSING, DO NOT SWALLOW Quantity: 2 Refills: 0 Ordered: 16-Feb-2023 Uriah Amador MD Start : 16-Feb-2023 Active Start: 11-12-2022 Hibiclens 4 % External Liquid USE DIRECTED. Quantity: 1 Refills: 0 Ordered: 12-Nov-2022 [employer] TRENCH DIGGER-NURSING ASSISTANT, Leslee Start : 12-Nov-2022 Active Cinnamon Preparation (20 sources) Non-Standardized Food Allergenic Extract Cinnamon 500 MG TABS Quantity: 0 Refills: 0 Ordered: 30-Oct-2022 DO Active Cinnamon 500 MG Oral Tablet Quantity: 0 Refills: 0 Ordered: 30-Oct-2022 DO Active clindamycin 150 mg oral capsule (16 sources) Lincosamide Antibacterial Start: 11-06-2022 End: 03-31-2023 Clindamycin HCl - 150 MG Oral Capsule TAKE 3 CAPSULES EVERY 6 HOURS. CONTINUE FOR 10 DAYS AND THEN STOP. Quantity: 120 Refills: 0 Ordered: 06-Nov-2022 Uriah Amador MD Start : 06-Nov-2022 End : 31-Mar-2023 Complete clotrimazole 10 mg oral lozenge (12 sources) Azole Antifungal Start: 05-09-2022 End: 03-31-2023 take 1 tablet by mouth five times daily Clotrimazole 10 MG Mouth/Throat Santino DISSOLVE 1 TABLET BY MOUTH 5 TIMES PER DAY Quantity: 50 Refills: 0 Ordered: 22-May-2022 DO Start : 09-May-2022 End : 31-Mar-2023 Complete dexamethasone 6 mg oral tablet (20 sources) Corticosteroid Start: 05-08-2021 End: 05-15-2021 take 1 tablet by mouth once daily Dexamethasone 6 mg tablet Discontinued 6 mg PO DAILY May 08, 2021 12:00am May 15, 2021 3:15pm x 5 days, started 05/06/21 0.5 ml dulaglutide 3 mg/ml auto-injector (20 sources) GLP-1 Receptor Agonist Start: 08-28-2022 Trulicity 1.5 MG/0.5ML Subcutaneous Solution Pen-injector INJECT 1 (ONE) pen every week Quantity: 6 Refills: 0 Ordered: 28-Aug-2022 DO Start : 28-Aug-2022 Active Start: 11-12-2016 Dulaglutide (T rulicity) 1.5 MG/0.5 ML pen injector Active 1 mL SQ WE November 12, 2016 12:00am Start: 11-12-2016 Dulaglutide (T rulicity) 1.5 MG/0.5 ML pen injector Active 1 ML SQ WE November 12, 2016 12:00am inject 3 mg by subcu taneous injection every week dulaglutide 3 mg/0.5 mL subcutaneous solution ; Inject 3mg subcutaneously weekly on Wednesdays; DO NOT TAKE THIS MEDICATION UNTIL YOU ARE EATING REGULARLY BY MOUTH Quantity: 0 Refills: 0 Ordered: 10-Dec-2022 Cathie Gregory Generic Substitution Allowed inject 3 mg by subcu taneous injection every week dulaglutide 3 mg/0.5 mL subcutaneous solution ; Inject 3mg under the skin once a week on Wednesdays Quantity: 0 Refills: 0 Ordered: 13-Nov-2022 Cinthya Keith Generic Substitution Allowed fluticasone propionate 0.05 mg/actuat metered dose nasal spray (20 sources) Corticosteroid Start: 11-25-2022 take 2 spray(s) nasal route once daily Fluticasone Propionate 50 MCG/ACT Nasal Suspension USE 2 SPRAYS IN EACH NOSTRIL ONCE DAILY Quantity: 1 Refills: 12 Ordered: 25-Nov-2022 Natividad Rodriguez MD Start : 25-Nov-2022 Active Fluticasone Prop ionate 50 MCG/ACT Nasal Suspension Quantity: 0 Refills: 0 Ordered: 30-Oct-2022 DO Active methylPREDNISolone 4 MG Oral Tablet Therapy Pack (12 sources) Start: 01-01-2022 End: 03-31-2023 methylPREDNISolone 4 MG Oral Tablet Therapy Pack TAKE 6 TABLETS ON DAY 1 DIRECTED ON PACKAGE AND DECREASE BY 1 TAB EACH DAY FOR A TOTAL OF 6 DAYS Quantity: 21 Refills: 0 Ordered: 01-Jan-2022 DO Start : 01-Jan-2022 End : 31-Mar-2023 Complete Start: 01-01-2022 methylPREDNISo lone 4 MG Oral Tablet Therapy Pack TAKE 6 TABLETS ON DAY 1 DIRECTED ON PACKAGE AND DECREASE BY 1 TAB EACH DAY FOR A TOTAL OF 6 DAYS Quantity: 21 Refills: 0 Ordered: 01-Jan-2022 DO Start : 01-Jan-2022 Active Multi Vitamin Mens TABS (20 sources) Multi Vitamin Me ns TABS Quantity: 0 Refills: 0 Ordered: 30-Oct-2022 DO Active psyllium 6000 mg powder for oral suspension (20 sources) Psyllium Husk 10 0 % POWD Quantity: 0 Refills: 0 Ordered: 30-Oct-2022 DO Active red yeast rice 600 mg oral capsule (20 sources) Start: 05-20-2019 End: 05-15-2021 take 1 capsule by mouth twice daily Red Yeast Rice 600 MG capsule Discontinued 600 mg PO TWICE A DAY May 20, 2019 12:00am May 15, 2021 3:15pm Selenium 200 MCG Oral Tablet (20 sources) Selenium 200 MCG Oral Tablet Quantity: 0 Refills: 0 Ordered: 30-Oct-2022 DO Active Trulicity 3 MG/0.5ML Subcutaneous Solution Pen-injector (13 sources) Trulicity 3 MG/0 .5ML Subcutaneous Solution Pen-injector Quantity: 0 Refills: 0 Ordered: 30-Oct-2022 DO Active Problems Active Problems Problem Classification Problem Date Documented Da te Episodic/Chronic Acute and unspecified renal failure (20 sources) Injury of kidney; 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: [Acute kidney failure, unspecified] Onset: 3 05-23-2021 Episodic Acute myocardial infarction (17 sources) Myocardial infarction; 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: [Subendocardial infarction, episode of care unspecified] Chronic Aortic and peripheral arterial embolism or thrombosis (18 sources) Thromboembolic disorder; 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: [Embolism and thrombosis of unspecified artery] 05-11-2019 Chronic Blindness and vision defects (2 sources) Unspecified visual loss; 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: [Visual impairment] Onset: 3 01-07-2023 Chronic Chronic kidney disease (2 sources) Chronic kidney disease, unspecified; 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: [Chronic kidney disease] Onset: 3 01-07-2023 Chronic Chronic kidney disease (1 source) Chronic kidney disease; 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: [Chronic kidney disease, stage 3 unspecified] Onset: 3 Chronic ulcer of skin (18 sources) Ulcer of lower extremity; 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: [Non-pressure chronic ulcer of unspecified part of right lower leg with fat layer exposed] 11-02-2019 Chronic Coagulation and hemorrhagic disorders (12 sources) Blood coagulation disorder; 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] 12-01-2022 Chronic Complications of surgical procedures or medical care (15 sources) Postoperative wound hemorrhage; 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: [Postoperative wound hemorrhage] Onset: 3 12-01-2022 Episodic Coronary atherosclerosis and other heart disease (2 sources) Old myocardial infarction; 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: [Old myocardial infarction] Onset: 3 01-07-2023 Chronic Deficiency and other anemia (4 sources) Deficiency and other anemia 12-05-2022 Diabetes mellitus with complications (6 sources) Insulin treated type 2 diabetes mellitus; 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: [Diabetes mellitus without mention of complication, type II or unspecified type, uncontrolled] Onset: 3 12-04-2022 Chronic Diabetes mellitus without complication (18 sources) Diabetes mellitus; 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: [Type 2 diabetes mellitus without complications] 07-20-2019 Chronic Diabetes mellitus without complication (2 sources) Diabetes mellitus without complication 12-04-2022 Diseases of mouth; excluding dental (20 sources) Oral lesion; 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: [Other and unspecified diseases of the oral soft tissues] Onset: 3 12-04-2022 Episodic Disorders of lipid metabolism (2 sources) Hyperlipidemia, unspecified; 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: [Hyperlipidemia] Onset: 3 01-07-2023 Chronic Esophageal disorders (2 sources) Gastro-esophageal reflux disease without esophagitis; 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: [Gastroesophageal reflux disease without esophagitis] Onset: 3 01-07-2023 Chronic Hypertension with complications and secondary hypertension (2 sources) Hypertensive chronic kidney disease with stage 1 through stage 4 chronic kidney disease, or unspecified chronic kidney disease; 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: [Chronic kidney disease due to hypertension] Onset: 3 01-07-2023 Chronic Nutritional deficiencies (1 source) Moderate protein-calorie malnutrition; 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: [Moderate protein-calorie malnutrition] Onset: 3 Chronic Osteoarthritis (2 sources) Unspecified osteoarthritis, unspecified site; 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: [Osteoarthritis] Onset: 3 01-07-2023 Chronic Other acquired deformities (6 sources) Lumbar spondylolisthesis; 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: [Spondylolisthesis, lumbar region] 01-05-2025 Episodic Other acquired deformities (1 source) Spondylolisthesis, lumbar region; 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: [Spondylolisthesis, lumbar region] Onset: 5 Episodic Other aftercare (1 source) Patient encounter status; 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: [Encounter for therapeutic drug monitoring] 11-13-2022 Episodic Other aftercare (1 source) Long-term current use of anticoagulant; 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: [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] 01-07-2023 Episodic Other aftercare (1 source) Long-term current use of aspirin; 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: [MCFP (current) use of aspirin] 01-07-2023 Episodic Other aftercare (1 source) Long-term current use of oral hypoglycemic medication; 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: [termite inspector (current) use of oral hypoglycemic drugs] 01-07-2023 Episodic Other bone disease and musculoskeletal deformities (1 source) Other osteonecrosis, other site; 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: [Other osteonecrosis, other site] Onset: 3 Chronic Other bone disease and musculoskeletal deformities (1 source) Osteonecrosis, unspecified; 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: [Osteonecrosis, unspecified] Onset: 3 Chronic Other connective tissue disease (18 sources) Pain in right lower limb; 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: [Pain in right leg] 06-18-2019 Episodic Other connective tissue disease (20 sources) Disorder of jaw; 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: [Disorder of bone and cartilage, unspecified] Episodic Other connective tissue disease (1 source) Musculoskeletal finding; 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: [Other symptoms and signs involving the musculoskeletal system] 12-31-2022 Episodic Other connective tissue disease (1 source) History of osteomyelitis; 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: [Personal history of other diseases of the musculoskeletal system and connective tissue] 10-03-2024 Episodic Other connective tissue disease (6 sources) History of lumbar fusion; 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: [Arthrodesis status] 01-05-2025 Episodic Other diseases of veins and lymphatics (18 sources) Postthrombotic syndrome; 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: [Postthrombotic syndrome without complications of unspecified extremity] 05-11-2019 Chronic Other diseases of veins and lymphatics (18 sources) Vascular insufficiency; 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: [Venous insufficiency (chronic) (peripheral)] 11-02-2019 Episodic Other gastrointestinal disorders (1 source) Gastrostomy status; 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: [Gastrostomy status] Onset: 04-26-202 3 Chronic Other infections; including parasitic (18 sources) Personal history of other infectious and parasitic diseases; 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: [Personal history of COVID-19] 01-07-2023 Episodic Other nervous system disorders (20 sources) Numbness of face; 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: [Disturbance of skin sensation] Episodic Other nervous system disorders (6 sources) Impairment of balance; 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: [Other abnormalities of gait and mobility] 01-05-2025 Episodic Other nutritional; endocrine; and metabolic disorders (1 source) Obesity, unspecified; 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: [Obesity, unspecified] Onset: Chronic Other nutritional; endocrine; and metabolic disorders (1 source) Body mass index (BMI) 36.0-36.9, adult; 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: [Body mass index [BMI] 36.0-36.9, adult] Onset: Chronic Other nutritional; endocrine; and metabolic disorders (1 source) Obesity; 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: [Obesity, unspecified] 01-07-2023 Chronic Other screening for suspected conditions (not mental disorders or infectious disease) (18 sources) INR raised; 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: [Abnormal coagulation profile] 05-23-2021 Episodic Other skin disorders (18 sources) Marvin - lesion ; 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: [Corns and callosities] 11-02-2019 Episodic Other upper respiratory disease (15 sources) Hypertrophy of nasal turbinates; 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: [Hypertrophy of nasal turbinates] 05-27-2022 Episodic Other upper respiratory disease (15 sources) Nasal congestion; 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: [Nasal congestion] 05-27-2022 Episodic Other upper respiratory disease (15 sources) Deviated nasal septum; 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: [Deviated nasal septum] 05-27-2022 Episodic Other upper respiratory disease (1 source) Hypertrophy of nasal turbinates; 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: [Hypertrophy of nasal turbinates] Episodic Other upper respiratory disease (1 source) Nasal congestion; 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: [Other disease of nasal cavity and sinuses] Episodic Other upper respiratory disease (1 source) Deviated nasal septum; 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: [Deviated nasal septum] Episodic Other upper respiratory disease (20 sources) Pain in face; 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: [Other disease of nasal cavity and sinuses] Episodic Other upper respiratory infections (20 sources) Chronic pansinusitis; 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: [Chronic pansinusitis] Onset: Chronic Phlebitis; thrombophlebitis and thromboembolism (20 sources) Acute deep venous thrombosis of femoral vein; 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: [Acute embolism and thrombosis of unspecified femoral vein] Onset: 3 05-21-2019 Episodic Residual codes; unclassified (1 source) Obstructive sleep apnea (adult) (pediatric); 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: [Obstructive sleep apnea (adult) (pediatric)] Onset: 3 Chronic Residual codes; unclassified (1 source) Obstructive sleep apnea syndrome; 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: [Obstructive sleep apnea (adult) (pediatric)] 01-07-2023 Chronic Residual codes; unclassified (18 sources) Edema of lower extremity; 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: [Localized edema] 10-19-2019 Episodic Residual codes; unclassified (20 sources) Abnormal sensation; 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: [Disturbance of skin sensation] Episodic Residual codes; unclassified (2 sources) Unable to comply with treatment; 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: [Personal history of noncompliance with medical treatment, presenting hazards to health] 12-04-2022 Episodic Respiratory failure; insufficiency; arrest (adult) (20 sources) Acute hypoxemic respiratory failure; 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: [Acute respiratory failure with hypoxia] Onset: 3 05-08-2021 Episodic Respiratory failure; insufficiency; arrest (adult) (4 sources) Respiratory failure; insufficiency; arrest (adult) 12-04-2022 Skin and subcutaneous tissue infections (18 sources) Cellulitis of lower limb; 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: [Cellulitis of right lower limb] 06-18-2019 Episodic Spondylosis; intervertebral disc disorders; other back problems (8 sources) Spinal stenosis, lumbar region without neurogenic claudication; 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: [Spinal stenosis of lumbar region] Onset: 3 01-07-2023 Episodic Thyroid disorders (1 source) Hypothyroidism, unspecified; 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: [Hypothyroidism, unspecified] Onset: 5 Chronic Unclassified (2 sources) MAXILLA DEBRIDEMENT M27.2 [id number] 11-10-2022 Comment on above: MAXILLA DEBRIDEMENT M27.2 [id number] Unclassified (2 sources) Body mass index [BMI] 36.0-36.9, adult 11-14-2022 Unclassified (3 sources) HFU-MAX SINUSITIS,OM,POLYMICRO BIAL ACTINOMYCETE-KBA/SF-RE F: NATIVIDAD RODRIGUEZ 11-17-2022 Comment on above: HFU-MAX SINUSITIS,OM ,POLYMICROBIAL ACTINOMYCETE-KBA/SF-REF: NATIVIDAD RODRIGUEZ Unclassified (3 sources) POST OP 11-17-2022 Comment on above: POST OP Unclassified (1 source) History of DVT (deep vein thrombosis) 11-13-2022 Unclassified (1 source) Anticoagulation management encounter 11-13-2022 Unclassified (1 source) Actinomyces infection 11-14-2022 Unclassified (1 source) Polymicrobial bacterial infection 11-14-2022 Unclassified (4 sources) SL: FIBEROPTIC ENDOSCOPIC EVALUATION OF SWALLOWING; DENTAL EXTRACTION; CR: COMPLETION/SEE SOARIAN 12-01-2022 Comment on above: SL: FIBEROPTIC ENDOS COPIC EVALUATION OF SWALLOWING; DENTAL EXTRACTION; CR: COMPLETION/SEE SOARIAN Unclassified (2 sources) FOLLOW UP PT COMING AT 9AM 12-09-2022 Comment on above: FOLLOW UP PT COMING AT 9AM Unclassified (2 sources) 4-6 WK. NPV/ VTE 11-19-2022 Comment on above: 4-6 WK. NPV/ VTE Unclassified (2 sources) Disease of mandible and maxilla 12-04-2022 Unclassified (2 sources) Lip disease 12-04-2022 Unclassified (2 sources) Alveolar osteitis 12-04-2022 Unclassified (2 sources) Poor compliance with continuous positive airway pressure treatment 12-04-2022 Unclassified (2 sources) Postoperative wound dehiscence, initial encounter 12-08-2022 Unclassified (1 source) Personal history of COVID-19; 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: [Personal history of COVID-19] Onset: 3 Unclassified (1 source) Lng trm (crnt) use injectable non-insulin antidiabetic drugs; 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: [Lng trm (crnt) use injectable non-insulin antidiabetic drugs] Onset: 3 Unclassified (1 source) Pt noncompl with other med trtmt and regimen d/t unsp reason; 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: [Pt noncompl with other med trtmt and regimen d/t unsp reason] Onset: 3 Unclassified (1 source) Contact with and (suspected) exposure to COVID-19; 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: [Contact with and (suspected) exposure to COVID-19] Onset: 3 Unclassified (2 sources) Osteomyelitis of maxilla Onset: Unclassified (6 sources) Spondylolisthesis of lumbar region Unclassified (12 sources) M43.16 - Spondylolisthesis, lumbar region Unclassified (1 source) Low back pain, unspecified; 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: [Low back pain, unspecified] Onset: Viral infection (18 sources) Disease caused by 2019-nCoV; 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: [COVID-19] 06-12-2021 Episodic Past or Other Problems Problem Classification Problem Date Documented Date Episodic/Chronic Acute posthemorrhagic anemia (1 source) Acute posthemorrhagic anemia; 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: [Acute posthemorrhagic anemia] Onset: 12-10-2022 Episodic Bacterial infection; unspecified site (16 sources) Actinomycotic infection; 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: [Actinomycotic infection of unspecified site] Onset: 12-10-2022 11-14-2022 Episodic Disorders of teeth and jaw (20 sources) Osteomyelitis of maxilla; 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: [Inflammatory conditions of jaw] Onset: 10-30-2022 12-04-2022 Episodic Mycoses (1 source) Candidal stomatitis; 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: [Candidal stomatitis] Onset: 11-18-2022 Episodic Other acquired deformities (1 source) Spondylolisthesis, site unspecified; 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: [Spondylolisthesis, site unspecified] Onset: 11-24-2024 Episodic Other aftercare (1 source) MCFP (current) use of anticoagulants; 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: [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] Onset: 12-31-2022 Episodic Other aftercare (1 source) MCFP (current) use of oral hypoglycemic drugs; 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: [termite inspector (current) use of oral hypoglycemic drugs] Onset: 12-31-2022 Episodic Other aftercare (1 source) 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; 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: [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] Onset: 12-31-2022 Episodic Other aftercare (1 source) Other truck terminal manager (current) drug therapy; 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: [Other truck terminal manager (current) drug therapy] Onset: 11-12-2022 Episodic Other circulatory disease (1 source) Hypotension, unspecified; 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: [Hypotension, unspecified] Onset: 12-10-2022 Episodic Other connective tissue disease (3 sources) Other symptoms and signs involving the musculoskeletal system; 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: [Oth symptoms and signs involving the musculoskeletal system] Onset: 10-30-2022 Episodic Other connective tissue disease (1 source) Arthrodesis status; 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: [Arthrodesis status] Onset: 11-18-2022 Episodic Other diseases of veins and lymphatics (1 source) Other specified disorders of veins; 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: [Other specified disorders of veins] Onset: 12-10-2022 Episodic Other nervous system disorders (1 source) Anesthesia of skin; 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: [Anesthesia of skin] Onset: 10-30-2022 Episodic Other upper respiratory disease (1 source) Other specified disorders of nose and nasal sinuses; 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: [Other specified disorders of nose and nasal sinuses] Onset: 10-30-2022 Episodic Pleurisy; pneumothorax; pulmonary collapse (1 source) Atelectasis; 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: [Atelectasis] Onset: 12-10-2022 Episodic Residual codes; unclassified (1 source) Other symptoms and signs involving general sensations and perceptions; 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: [Oth symptoms and signs w general sensations and perceptions] Onset: 10-30-2022 Episodic Unclassified (1 source) MAXILLA DEBRIDEMENT 11-10-2022 Comment on above: MAXILLA DEBRIDEMENT Unclassified (7 sources) Onset: 07-06-2023 Resolved: 10-03-2024 07-06-2023 Results Test Name Value Interpretation Reference Range Facility Absolute lymphocyte countOrd ered By: Key Jasso on 03-17-2025 Lymphocytes Auto (Unsp spec) [#/Vol] 1.16 10*3/uL 0.83-4.51 [facility] Absolute neutrophil countOrd ered By: Key Jasso on 03-17-2025 Neutrophils (Bld) [#/Vol] 7.6 10*3/uL 2.0-7.7 [facility] Anion gap in Serum or Plasma Ordered By: Key Jasso on 03-17-2025 Anion gap [Moles/Vol] 12 mmol/L 5-15 [facility] Automated lymphocyte count a s percentage of total leukocytesOrdered By: Key Jasso on 03-17-2025 Lymphocytes/100 WBC Auto (Unsp spec) 12.0 % Low 19-41 [facility] BUN/creatinine ratioOrdered By: Key Jasso on 03-17-2025 Urea nitrogen/Creatinine [Mass ratio] 22.0 mg/mg High 10-20 [facility] Basophil percentageOrdered B y: Key Jasso on 03-17-2025 Basophils/100 WBC (Bld) 0.4 % 0-1 [facility] Bilirubin, totalOrdered By: Key Jasso on 03-17-2025 Bilirubin [Mass/Vol] 0.46 mg/dL 0.00-1.30 [facility] [place] CBC W/Diff, Automatedon Absolute Lymph 1.16 X10 3/uL Normal 0.83-4.51 [facility] Comment on above: Order Comment: Order Date: 03/14/25Order Info: 018- - CBCD Performed By: #### L 500.4050, L501.9985, L100.0100 ####[facility] [address] [place], [address] Absolute Neut 7.6 X10 3/uL Normal 2.0-7.7 [facility] Comment on above: Order Comment: Order Date: 03/14/25Order Info: [id number]- - CBCD Performed By: #### L 500.4050, L501.9985, L100.0100 ####[facility] [address] [place], [address] Basophils/100 WBC (Bld) 0.4 % Normal 0-1 [facility] Comment on above: Order Comment: Order Date: 03/14/25Order Info: [id number] - CBCD Performed By: #### L 500.4050, L501.9985, L100.0100 ####[facility] [address] [place], [address] Eosinophils/100 WBC (Bld) 0.4 % Normal 0-5 [facility] Comment on above: Order Comment: Order Date: 03/14/25Order Info: 0184-1 - CBCD Performed By: #### L 500.4050, L501.9985, L100.0100 ####[facility] [address] [place], [address] Erythrocyte distribution width (RBC) [Ratio] 14.6 % Normal 11.6-14.6 [facility] Comment on above: Order Comment: Order Date: 03/14/25Order Info: [id number] - CBCD Performed By: #### L 500.4050, L501.9985, L100.0100 ####[facility] [address] [place], [address] Hematocrit (Bld) [Volume fraction] 44.4 % Normal 40-54 [facility] Comment on above: Order Comment: Order Date: 03/14/25Order Info: 0184-1 - CBCD Performed By: #### L 500.4050, [id number], L100.0100 ####[facility] [address] [place], [address] Hemoglobin (Bld) [Mass/Vol] 14.7 g/dL Normal 13.0-16.5 [facility] Comment on above: Order Comment: Order Date: 03/14/25Order Info: 0184-1 - CBCD Performed By: #### L 500.4050, [id number], L100.0100 ####[facility] [address] [place], [address] IG% 1.400 High 0.0-0.9 [facility] Comment on above: Order Comment: Order Date: 03/14/25Order Info: 0184-1 - CBCD Result Comment: IG% - Immature Granulocytes (promyelocytes, myelocytes and metamyelocytes) > 1% indicates that a LEFT SHIFT is Present. Performed By: #### L 500.4050, L501.9985, L100.0100 ####[facility] [address] [place], [address] Lymphocytes/100 WBC (Bld) 12.0 % Low 19-41 [facility] Comment on above: Order Comment: Order Date: 03/14/25Order Info: 0184-1 - CBCD Performed By: #### L 500.4050, [id number], L100.0100 ####[facility] [address] [place], [address] MCH (RBC) [Entitic mass] 31.6 pg Normal 27.0-32.0 [facility] Comment on above: Order Comment: Order Date: 03/14/25Order Info: 4-1 - CBCD Performed By: #### L 500.4050, [id number], L100.0100 ####[facility] [address] [place], [address] MCHC (RBC) [Mass/Vol] 33.1 g/dL Normal 32-36 [facility] Comment on above: Order Comment: Order Date: 03/14/25Order Info: 183- - CBCD Performed By: #### L 500.4050, L501.9985, L100.0100 ####[facility] [address] [place], [address] MCV (RBC) [Entitic vol] 95.5 fL High 80-94 [facility] Comment on above: Order Comment: Order Date: 03/14/25Order Info: 183- - CBCD Performed By: #### L 500.4050, L501.9985, L100.0100 ####[facility] [address] [place], [address] Monocytes/100 WBC (Bld) 6.9 % Normal 0-10 [facility] Comment on above: Order Comment: Order Date: 03/14/25Order Info: 018- - CBCD Performed By: #### L 500.4050, L501.9985, L100.0100 ####[facility] [address] [place], [address] Neutrophils/100 WBC (Bld) 78.9 % High 47-70 [facility] Comment on above: Order Comment: Order Date: 03/14/25Order Info: 0184-1 - CBCD Performed By: #### L 500.4050, L501.9985, L100.0100 ####[facility] [address] [place], [address] Nucleated RBC (Bld) [#/Vol] 0 10*3/uL Normal 0-5 [facility] Comment on above: Order Comment: Order Date: 03/14/25Order Info: 0184-1 - CBCD Performed By: #### L 500.4050, L501.9985, L100.0100 ####[facility] [address] [place], [address] Platelet mean volume (Bld) [Entitic vol] 9.8 fL Normal 6.2-12.0 [facility] Comment on above: Order Comment: Order Date: 03/14/25Order Info: 018- - CBCD Performed By: #### L 500.4050, L501.9985, L100.0100 ####[facility] [address] [place], [address] Platelets (Bld) [#/Vol] 330 10*3/uL Normal 150-450 [facility] Comment on above: Order Comment: Order Date: 03/14/25Order Info: 018- - CBCD Performed By: #### L 500.4050, L501.9985, L100.0100 ####[facility] [address] [place], [address] RBC (Bld) [#/Vol] 4.65 10*6/uL Normal 4.6-6.2 [facility] Comment on above: Order Comment: Order Date: 03/14/25Order Info: 0184-1 - CBCD Performed By: #### L 500.4050, L501.9985, L100.0100 ####[facility] [address] [place], [address] RDW SD 51.4 fl High 35.1-43.9 [facility] Comment on above: Order Comment: Order Date: 03/14/25Order Info: 018-1 - CBCD Performed By: #### L 500.4050, L501.9985, L100.0100 ####[facility] [address] [place], [address] WBC (Bld) [#/Vol] 9.7 10*3/uL Normal 4.4-11.0 [facility] Comment on above: Order Comment: Order Date: 03/14/25Order Info: 018-1 - CBCD Performed By: #### L 500.4050, L501.9985, L100.0100 ####[facility] [address] [place], [address] Carbon dioxide, total [Moles /volume] in Central venous bloodOrdered By: Key Jasso on 03-17-2025 CO2 [Moles/Vol] 22.1 mmol/L 21.0-32.0 [facility] Chloride assayOrdered By: Torito Jasso on 03-17-2025 Chloride [Moles/Vol] 102 mmol/L 98-108 [facility] [place] Comprehensive Metabolic Prof ilon 03-17-2025 Albumin [Mass/Vol] 4.0 g/dL Normal 3.4-4.8 [facility] Comment on above: Order Comment: Order Date: 03/14/25Order Info: 0786-1 - CMPOrder Info: 3051-0 - P4XWctbl Info: 3016-3 - TSHOrder Info: 3024-7 - T4F Performed By: #### L 500.4050, L501.9985, L100.0100 ####[facility] [address] [place], [address] Albumin/Globulin [Mass ratio] 1.4 {ratio} Normal 0.9-2.4 [facility] Comment on above: Order Comment: Order Date: 03/14/25Order Info: 0786-1 - CMPOrder Info: 3051-0 - F6CWakrg Info: 3016-3 - TSHOrder Info: 3024-7 - T4F Performed By: #### L 500.4050, L501.9985, L100.0100 ####[facility] [address] [place], [address] ALK PHOS 57 U/L Normal 40-129 [facility] Comment on above: Order Comment: Order Date: 03/14/25Order Info: 0786-1 - CMPOrder Info: 3051-0 - H3ETowfy Info: 3016-3 - TSHOrder Info: 3024-7 - T4F Performed By: #### L 500.4050, L501.9985, L100.0100 ####[facility] [address] [place], [address] ALT [Catalytic activity/Vol] 17 U/L Normal <=46 [facility] Comment on above: Order Comment: Order Date: 03/14/25Order Info: 07-1 - CMPOrder Info: 3051-0 - D7ETwspo Info: 63 - TSHOrder Info: 3024-7 - T4F Performed By: #### L 500.4050, L501.9985, L100.0100 ####[facility] [address] [place], [address] AST [Catalytic activity/Vol] 20 U/L Normal <=37 [facility] Comment on above: Order Comment: Order Date: 03/14/25Order Info: 0786-1 - CMPOrder Info: 1-0 - O5XVegjf Info: 3016-3 - TSHOrder Info: 3024-7 - T4F Performed By: #### L 500.4050, L501.9985, L100.0100 ####[facility] [address] [place], [address] Bilirubin [Mass/Vol] 0.46 mg/dL Normal 0.00-1.30 [facility] Comment on above: Order Comment: Order Date: 03/14/25Order Info: 0786-1 - CMPOrder Info: 3051-0 - J0KZvdzr Info: 3016-3 - TSHOrder Info: 3024-7 - T4F Performed By: #### L 500.4050, L501.9985, L100.0100 ####[facility] [address] [place], [address] BUN/CRE 22.0 RATIO High 10-20 [facility] Comment on above: Order Comment: Order Date: 03/14/25Order Info: 0786-1 - CMPOrder Info: 3051-0 - F8SSwunn Info: 3016-3 - TSHOrder Info: 3024-7 - T4F Performed By: #### L 500.4050, L501.9985, L100.0100 ####[facility] [address] [place], [address] Calcium [Mass/Vol] 9.6 mg/dL Normal 7.6-11.0 [facility] Comment on above: Order Comment: Order Date: 03/14/25Order Info: 0786-1 - CMPOrder Info: 3051-0 - L4GGvqdc Info: 3016-3 - TSHOrder Info: 3024-7 - T4F Performed By: #### L 500.4050, L501.9985, L100.0100 ####[facility] [address] [place], [address] Chloride [Moles/Vol] 102 mmol/L Normal 98-108 [facility] Comment on above: Order Comment: Order Date: 03/14/25Order Info: 0786-1 - CMPOrder Info: 3051-0 - I5BQznjr Info: 3016-3 - TSHOrder Info: 3024-7 - T4F Performed By: #### L 500.4050, L501.9985, L100.0100 ####[facility] [address] [place], [address] CO2 [Moles/Vol] 22.1 mmol/L Normal 21.0-32.0 [facility] Comment on above: Order Comment: Order Date: 03/14/25Order Info: 07-1 - CMPOrder Info: 3050-0 - N4VTowlt Info: 3 - TSHOrder Info: 3027 - T4F Performed By: #### L 500.4050, L501.9985, L100.0100 ####[facility] [address] [place], [place], [address] Creatinine [Mass/Vol] 1.90 mg/dL High 0.70-1.20 [facility] Comment on above: Order Comment: Order Date: 03/14/25Order Info: 07-1 - CMPOrder Info: 0 - R4EXfrlm Info: 3 - TSHOrder Info: 7 - T4F Performed By: #### L 500.4050, L501.9985, L100.0100 ####[facility] [address] [place], [place], [id number] GAP 12 Normal 5-15 [facility] Comment on above: Order Comment: Order Date: 03/14/25Order Info: 07- - CMPOrder Info: 0 - G0SNfveg Info: 3015-10 - TSHOrder Info: 7 - T4F Performed By: #### L 500.4050, L501.9985, L100.0100 ####[facility] [address] [place], [place], [address] GFR/1.73 sq M.predicted among non-blacks MDRD (S/P/Bld) [Vol rate/Area] 37 mL/min/{1.73_m2} Low >60 [facility] Comment on above: Order Comment: Order Date: 03/14/25Order Info: 0786-1 - CMPOrder Info: 3051-0 - F8WJqtmz Info: 30163 - TSHOrder Info: 30247 - T4F Result Comment: mL/m in/1.73m2 CKD-EPI Creatinine Equation (2020) Performed By: #### L 500.4050, L501.9985, L100.0100 ####[facility] [address] [place], [address] Globulin (S) [Mass/Vol] 2.9 g/dL Normal 2.2-4.2 [facility] Comment on above: Order Comment: Order Date: 03/14/25Order Info: 0786-1 - CMPOrder Info: 3051-0 - N8TIdwbb Info: 3015-3 - TSHOrder Info: 3024-7 - T4F Performed By: #### L 500.4050, L501.9985, L100.0100 ####[facility] [address] [place], [address] Glucose [Mass/Vol] 79 mg/dL Normal 70-99 [facility] Comment on above: Order Comment: Order Date: 03/14/25Order Info: 0786-1 - CMPOrder Info: 3050-0 - Q8JYjcyl Info: 3 - TSHOrder Info: 3024-7 - T4F Performed By: #### L 500.4050, L501.9985, L100.0100 ####[facility] [address] [place], [address] Potassium [Moles/Vol] 4.3 mmol/L Normal 3.3-5.1 [facility] Comment on above: Order Comment: Order Date: 03/14/25Order Info: 0786-1 - CMPOrder Info: 0 - Y1GAmscj Info: 3016-3 - TSHOrder Info: 3024-7 - T4F Performed By: #### L 500.4050, L501.9985, L100.0100 ####[facility] [address] [place], [address] Sodium [Moles/Vol] 136 mmol/L Normal 133-145 [facility] Comment on above: Order Comment: Order Date: 03/14/25Order Info: 0786-1 - CMPOrder Info: 3051-0 - P2WFhnix Info: 3016-3 - TSHOrder Info: 3024-7 - T4F Performed By: #### L 500.4050, L501.9985, L100.0100 ####[facility] [address] [place], [address] T PROT 6.9 g/dL Normal 5.9-8.4 [facility] Comment on above: Order Comment: Order Date: 03/14/25Order Info: 0786-1 - CMPOrder Info: 0 - V7GMcqbo Info: 3015-10 - TSHOrder Info: 7 - T4F Performed By: #### L 500.4050, L501.9985, L100.0100 ####[facility] [address] [place], [address] Urea nitrogen [Mass/Vol] 42 mg/dL High 4-19 [facility] Comment on above: Order Comment: Order Date: 03/14/25Order Info: 785-08 - CMPOrder Info: 0 - E5SVabqd Info: 3015-10 - TSHOrder Info: 7 - T4F Performed By: #### L 500.4050, L501.9985, L100.0100 ####[facility] [address] [place], [place], [address] Eosinophil percentageOrdered By: Key Jasso on 03-17-2025 Eosinophils/100 WBC (Bld) 0.4 % 0-5 [facility] Erythrocyte distribution wid th ratioOrdered By: Key Jasso on 03-17-2025 Erythrocyte distribution width (RBC) [Ratio] 14.6 % 11.6-14.6 [facility] Erythrocyte distribution wid th standard deviationOrdered By: Key Jasso on 03-17-2025 Erythrocyte distribution width (RBC) [Ratio] 51.4 fl High 35.1-43.9 [facility] Free T3on 03-17-2025 Free T3 [Mass/Vol] 1.7 pg/mL Low 2.18-3.98 [facility] Comment on above: Order Comment: Order Date: 03/14/25Order Info: 0786-1 - CMPOrder Info: 0 - S4PPolbt Info: 3015-10 - TSHOrder Info: 7 - T4F Performed By: #### L 506.0400, L501.00280, L501.9520 ####[facility] [address] [place], [place], [address] Free F8Wcaolty By: Key stack on 03-17-2025 Free T3 [Mass/Vol] 1.7 pg/mL Low 2.18-3.98 [facility] Glomerular filtration rate ( GFR) estimation/1.73 sq m using serum, plasma, or whole bOrdered By: Key Jasso on 03-17-2025 GFR/1.73 sq M.predicted among non-blacks MDRD (S/P/Bld) [Vol rate/Area] 37 mL/min/{1.73_m2} Low >60 [facility] Comment on above: mL/min/1.73m2 CKD-EP I Creatinine Equation (2020) Hematocrit Auto (Bld) [Volum e fraction]Ordered By: Key Jasso on 03-17-2025 Hematocrit (Bld) [Volume fraction] 44.4 % 40-54 [facility] Hemoglobin A1con 03-17-2025 HbA1c (Bld) [Mass fraction] 6.8 % High <=5.6 [facility] Comment on above: Order Comment: Order Date: 03/14/25Order Info: 4548-4 - A1C Result Comment: Norm al < 5.7 % Prediabetic 5.7 - 6.4 % Diabetic >or= 6.5 % Please note range changes. Performed By: #### L 500.4050, L501.9985, L100.0100 ####[facility] [address] [place], [place], [id number] Hemoglobin A1c percentageOrd ered By: Key Jasso on 03-17-2025 HbA1c (Bld) [Mass fraction] 6.8 % High <5.7 [facility] Comment on above: Normal < 5.7 % Predi abetic 5.7 - 6.4 % Diabetic >or= 6.5 % Please note range changes. Hemoglobin measurementOrdere d By: Key Jasso on 03-17-2025 Hemoglobin (Bld) [Mass/Vol] 14.7 g/dL 13.0-16.5 [facility] Immature granulocytes/100 WB C Auto (Bld)Ordered By: Key Jasso on 03-17-2025 Immature granulocytes/100 WBC (Bld) 1.400 % High 0.0-0.9 [facility] Comment on above: IG% - Immature Granu locytes (promyelocytes, myelocytes and metamyelocytes) > 1% indicates that a LEFT SHIFT is Present. Laboratory - Chemistry and C hemistry - challengeOrdered By: Key Jasso on 03-17-2025 AST [Catalytic activity/Vol] 20 U/L <38 [facility] MCV (mean corpuscular volume ) determinationOrdered By: Key Jasso on 03-17-2025 MCV (RBC) [Entitic vol] 95.5 fL High 80-94 [facility] Mean corpuscular hemoglobin (MCH) determinationOrdered By: Key Jasso on 03-17-2025 MCH (RBC) [Entitic mass] 31.6 pg 27.0-32.0 [facility] Mean corpuscular hemoglobin concentration (MCHC) determinationOrdered By: Key Jasso on 03-17-2025 MCHC (RBC) [Mass/Vol] 33.1 g/dL 32-36 [facility] Mean platelet volume determi nationOrdered By: Key Jasso on 03-17-2025 Platelet mean volume (Bld) [Entitic vol] 9.8 fL 6.2-12.0 [facility] Monocyte percentageOrdered B y: Key Jasso on 03-17-2025 Monocytes/100 WBC (Bld) 6.9 % 0-10 [facility] Neutrophil percentageOrdered By: Key Jasso on 03-17-2025 Neutrophils/100 WBC (Bld) 78.9 % High 47-70 [facility] Nucleated red blood cell per centageOrdered By: Key Jasso on 03-17-2025 Nucleated RBC/100 WBC (Bld) [Ratio] 0 % 0-5 [facility] Platelet countOrdered By: Torito Jasso on 03-17-2025 Platelets (Bld) [#/Vol] 330 10*3/uL 150-450 [facility] Potassium measurement (mass/ volume)Ordered By: Key Jasso on 03-17-2025 Potassium (Unsp spec) [Mass/Vol] 4.3 mmol/L 3.3-5.1 [facility] RBC Auto (Bld) [#/Vol]Ordere d By: Key Jasso on 03-17-2025 RBC (Bld) [#/Vol] 4.65 10*6/uL 4.6-6.2 [facility] Serum creatinine measurement (mass/volume)Ordered By: Key Jasso on 03-17-2025 Creatinine [Mass/Vol] 1.90 mg/dL High 0.70-1.20 [facility] Serum globulin measurementOr dered By: Key Jasso on 03-17-2025 Globulin (S) [Mass/Vol] 2.9 g/dL 2.2-4.2 [facility] Serum glucose measurement (m ass/volume)Ordered By: Key Jasso on 03-17-2025 Glucose [Mass/Vol] 79 mg/dL 70-99 [facility] Serum or plasma alanine nunez otransferase (ALT) measurementOrdered By: Key Jasso on 03-17-2025 ALT [Catalytic activity/Vol] 17 U/L <47 [facility] Serum or plasma albumin lisa urement (mass/volume)Ordered By: Key Jasso on 03-17-2025 Albumin [Mass/Vol] 4.0 g/dL 3.4-4.8 [facility] Serum or plasma albumin/glob ulin mass ratioOrdered By: Key Jasso on 03-17-2025 Albumin/Globulin [Mass ratio] 1.4 {ratio} 0.9-2.4 [facility] Serum or plasma alkaline kacy sphatase measurementOrdered By: Key Jasso on 03-17-2025 ALP [Catalytic activity/Vol] 57 U/L 40-129 [facility] Serum or plasma calcium lisa urement (mass/volume)Ordered By: Key Jasso on 03-17-2025 Calcium [Mass/Vol] 9.6 mg/dL 7.6-11.0 [facility] Serum or plasma urea nitroge n measurement (mass/volume)Ordered By: Key Jasso on 03-17-2025 Urea nitrogen [Mass/Vol] 42 mg/dL High 4-19 [facility] Sodium levelOrdered By: Key Jasso on 03-17-2025 Sodium [Moles/Vol] 136 mmol/L 133-145 [facility] T4 Free Directon 03-17-2025 T4 FREE DIRECT 0.90 ng/dL Normal 0.76-1.46 [facility] Comment on above: Order Comment: Order Date: 03/14/25Order Info: 0786-1 - CMPOrder Info: 0 - S0EKgqyi Info: 3015-10 - TSHOrder Info: 3024-02 - T4F Performed By: #### L 506.0400, L501.05492, L501.9520 ####[facility] [address] [place], [address] T4 freeOrdered By: Key stack on 03-17-2025 Free T4 [Mass/Vol] 0.90 ng/dL 0.76-1.46 [facility] TSH DL <= 0.005 mIU/L QnOrde red By: Key Jasso on 03-17-2025 TSH Qn 7.660 uIU/mL High 0.300-4.200 [facility] Thyroid Stim Hormone (TSH)on 03-17-2025 TSH 7.660 uIU/mL High 0.300-4.200 [facility] Comment on above: Order Comment: Order Date: 03/14/25Order Info: 0786-1 - CMPOrder Info: 0 - F3PVheuo Info: 3015-10 - TSHOrder Info: 3024-02 - T4F Performed By: #### L 506.0400, L501.03986, L501.9520 ####[facility] [address] [place], [place], [id number] Total proteinOrdered By: Colleen Jasso on 03-17-2025 Protein [Mass/Vol] 6.9 g/dL 5.9-8.4 [facility] White blood cell (WBC) count Ordered By: Key Jasso on 03-17-2025 WBC (Bld) [#/Vol] 9.7 10*3/uL 4.4-11.0 [facility] Microalb:Creat Ratio,Random URon 03-13-2025 MALB:CRE 31.4 mg/g CRE High <30 mg/g CRE [facility] Comment on above: Result Comment: AMENDED REPORT 03/13/251935 MALB:CREAT previously reported as: 313.9 mg/g CRE Performed By: #### L 502.0250, L100.0500, L500.4050 #### [facility] Laboratory [address] [place], [address] Absolute lymphocyte countOrd ered By: Key Jasso on 03-07-2025 Lymphocytes Auto (Unsp spec) [#/Vol] 1.18 10*3/uL 0.83-4.51 [facility] Absolute neutrophil countOrd ered By: Key Jasso on 03-07-2025 Neutrophils (Bld) [#/Vol] 5.1 10*3/uL 2.0-7.7 [facility] Anion gap in Serum or Plasma Ordered By: Key Jasso on 03-07-2025 Anion gap [Moles/Vol] 13 mmol/L 5-15 [facility] Automated lymphocyte count a s percentage of total leukocytesOrdered By: Key Jasso on 03-07-2025 Lymphocytes/100 WBC Auto (Unsp spec) 16.9 % Low 19-41 [facility] BUN/creatinine ratioOrdered By: Key Jasso on 03-07-2025 Urea nitrogen/Creatinine [Mass ratio] 15.6 mg/mg 10-20 [facility] Basophil percentageOrdered B y: Key Jasso on 03-07-2025 Basophils/100 WBC (Bld) 0.4 % 0-1 [facility] Bilirubin, totalOrdered By: Key Jasso on 03-07-2025 Bilirubin [Mass/Vol] 0.40 mg/dL Normal 0.00-1.30 [facility] Comment on above: Order Comment: Order Date: 01/10/25Order Info: 0786-1 - CMPOrder Date: 07/11/24Order Info: 3016-3 - TSHStanding ORder Performed By: #### L 501.9520, L100.0100, L500.4050 ####[facility] [address] [place], [address] CBC W/Diff, Automatedon 07-2 -2024 Absolute Lymph 1.18 X10 3/uL Normal 0.83-4.51 [facility] Comment on above: Order Comment: Order Date: 07/11/24Order Info: 0184-1 - CBCD Performed By: #### L 501.9520, L100.0100, L500.4050 ####[facility] [address] [place], [address] Absolute Neut 5.1 X10 3/uL Normal 2.0-7.7 [facility] Comment on above: Order Comment: Order Date: 07/11/24Order Info: 0184-1 - CBCD Performed By: #### L 501.9520, L100.0100, L500.4050 ####[facility] [address] [place], [address] Basophils/100 WBC (Bld) 0.4 % Normal 0-1 [facility] Comment on above: Order Comment: Order Date: 07/11/24Order Info: 0184-1 - CBCD Performed By: #### L 501.9520, L100.0100, L500.4050 ####[facility] [address] [place], [address] Eosinophils/100 WBC (Bld) 1.4 % Normal 0-5 [facility] Comment on above: Order Comment: Order Date: 07/11/24Order Info: 0184-1 - CBCD Performed By: #### L 501.9520, L100.0100, L500.4050 ####[facility] [address] [place], [address] Erythrocyte distribution width (RBC) [Ratio] 15.0 % High 11.6-14.6 [facility] Comment on above: Order Comment: Order Date: 07/11/24Order Info: 0184-1 - CBCD Performed By: #### L 501.9520, L100.0100, L500.4050 ####[facility] [address] [place], [address] Hematocrit (Bld) [Volume fraction] 43.4 % Normal 40-54 [facility] Comment on above: Order Comment: Order Date: 07/11/24Order Info: 0184-1 - CBCD Performed By: #### L 501.9520, L100.0100, L500.4050 ####[facility] [address] [place], [address] Hemoglobin (Bld) [Mass/Vol] 14.3 g/dL Normal 13.0-16.5 [facility] Comment on above: Order Comment: Order Date: 07/11/24Order Info: 018- - CBCD Performed By: #### L 501.9520, L100.0100, L500.4050 ####[facility] [address] [place], [address] IG% 0.600 Normal 0.0-0.9 [facility] Comment on above: Order Comment: Order Date: 07/11/24Order Info: 018- - CBCD Result Comment: IG% - Immature Granulocytes (promyelocytes, myelocytes and metamyelocytes) > 1% indicates that a LEFT SHIFT is Present. Performed By: #### L 501.9520, L100.0100, L500.4050 ####[facility] [address] [place], [address] Lymphocytes/100 WBC (Bld) 16.9 % Low 19-41 [facility] Comment on above: Order Comment: Order Date: 07/11/24Order Info: 018-1 - CBCD Performed By: #### L 501.9520, L100.0100, L500.4050 ####[facility] [address] [place], [address] MCH (RBC) [Entitic mass] 31.4 pg Normal 27.0-32.0 [facility] Comment on above: Order Comment: Order Date: 07/11/24Order Info: 0184-1 - CBCD Performed By: #### L 501.9520, L100.0100, L500.4050 ####[facility] [address] [place], [address] MCHC (RBC) [Mass/Vol] 32.9 g/dL Normal 32-36 [facility] Comment on above: Order Comment: Order Date: 07/11/24Order Info: 0184-1 - CBCD Performed By: #### L 501.9520, L100.0100, L500.4050 ####[facility] [address] [place], [address] MCV (RBC) [Entitic vol] 95.2 fL High 80-94 [facility] [facility] Comment on above: Order Comment: Order Date: 07/11/24Order Info: 0184-1 - CBCD Performed By: #### L 501.9520, L100.0100, L500.4050 ####[facility] [address] [place], [address] Monocytes/100 WBC (Bld) 7.3 % Normal 0-10 [facility] Comment on above: Order Comment: Order Date: 07/11/24Order Info: 0184-1 - CBCD Performed By: #### L 501.9520, L100.0100, L500.4050 ####[facility] [address] [place], [address] Neutrophils/100 WBC (Bld) 73.4 % High 47-70 [facility] Comment on above: Order Comment: Order Date: 07/11/24Order Info: 0184-1 - CBCD Performed By: #### L 501.9520, L100.0100, L500.4050 ####[facility] [address] [place], [address] Nucleated RBC (Bld) [#/Vol] 0 10*3/uL Normal 0-5 [facility] Comment on above: Order Comment: Order Date: 07/11/24Order Info: 0184-1 - CBCD Performed By: #### L 501.9520, L100.0100, L500.4050 ####[facility] [address] [place], [address] Platelet mean volume (Bld) [Entitic vol] 9.9 fL Normal 6.2-12.0 [facility] Comment on above: Order Comment: Order Date: 07/11/24Order Info: 018-1 - CBCD Performed By: #### L 501.9520, L100.0100, L500.4050 ####[facility] [address] [place], [address] Platelets (Bld) [#/Vol] 275 10*3/uL Normal 150-450 [facility] Comment on above: Order Comment: Order Date: 07/11/24Order Info: 018- - CBCD Performed By: #### L 501.9520, L100.0100, L500.4050 ####[facility] [address] [place], [address] RBC (Bld) [#/Vol] 4.56 10*6/uL Low 4.6-6.2 [facility] Comment on above: Order Comment: Order Date: 07/11/24Order Info: 0184-1 - CBCD Performed By: #### L 501.9520, L100.0100, L500.4050 ####[facility] [address] [place], [address] RDW SD 52.7 fl High 35.1-43.9 [facility] Comment on above: Order Comment: Order Date: 07/11/24Order Info: 0184-1 - CBCD Performed By: #### L 501.9520, L100.0100, L500.4050 ####[facility] [address] [place], [address] WBC (Bld) [#/Vol] 7.0 10*3/uL Normal 4.4-11.0 [facility] Comment on above: Order Comment: Order Date: 07/11/24Order Info: 0184-1 - CBCD Performed By: #### L 501.9520, L100.0100, L500.4050 ####[facility] [address] [place], [address] Carbon dioxide, total [Moles /volume] in Central venous bloodOrdered By: Key aJsso on 03-07-2025 CO2 [Moles/Vol] 19.5 mmol/L Low 21.0-32.0 [facility] Comment on above: Order Comment: Order Date: 01/10/25Order Info: 0786-1 - CMPOrder Date: 07/11/24Order Info: 3016-3 - TSHStanding ORder Performed By: #### L 501.9520, L100.0100, L500.4050 ####[facility] [address] [place], [place], [address] Chloride assayOrdered By: Torito Jasso on 03-07-2025 Chloride [Moles/Vol] 105 mmol/L Normal 98-108 [facility] Comment on above: Order Comment: Order Date: 01/10/25Order Info: 0786-1 - CMPOrder Date: 07/11/24Order Info: 3016-3 - TSHStanding ORder Performed By: #### L 501.9520, L100.0100, L500.4050 ####[facility] [address] [place], [place], [address] Comprehensive Metabolic Prof ilon 03-07-2025 ALK PHOS 59 U/L Normal 40-129 [facility] Comment on above: Order Comment: Order Date: 01/10/25Order Info: 0786-1 - CMPOrder Date: 07/11/24Order Info: 3016-3 - TSHStanding ORder Performed By: #### L 501.9520, L100.0100, L500.4050 ####[facility] [address] [place], [address] BUN/CRE 15.6 RATIO Normal 10-20 [facility] Comment on above: Order Comment: Order Date: 01/10/25Order Info: 0786-1 - CMPOrder Date: 07/11/24Order Info: 3016-3 - TSHStanding ORder Performed By: #### L 501.9520, L100.0100, L500.4050 ####[facility] [address] [place], [address] GAP 13 Normal 5-15 [facility] Comment on above: Order Comment: Order Date: 01/10/25Order Info: 07- - CMPOrder Date: 07/11/24Order Info: 3016-3 - TSHStanding ORder Performed By: #### L 501.9520, L100.0100, L500.4050 ####[facility] [address] [place], [address] Potassium [Moles/Vol] 4.5 mmol/L Normal 3.3-5.1 [facility] Comment on above: Order Comment: Order Date: 01/10/25Order Info: 0786-1 - CMPOrder Date: 07/11/24Order Info: 3016-3 - TSHStanding ORder Performed By: #### L 501.9520, L100.0100, L500.4050 ####[facility] [address] [place], [address] T PROT 6.9 g/dL Normal 5.9-8.4 [facility] Comment on above: Order Comment: Order Date: 01/10/25Order Info: 0786-1 - CMPOrder Date: 07/11/24Order Info: 3016-3 - TSHStanding ORder Performed By: #### L 501.9520, L100.0100, L500.4050 ####[facility] [address] [place], [place], [address] Comprehensive Metabolic Prof ilOrdered By: Key Jasso on 03-07-2025 AST [Catalytic activity/Vol] 19 U/L Normal <=37 [facility] Comment on above: Order Comment: Order Date: 01/10/25Order Info: 0786-1 - CMPOrder Date: 07/11/24Order Info: 3016-3 - TSHStanding ORder Performed By: #### L 501.9520, L100.0100, L500.4050 ####[facility] [address] [place], [place], [address] Eosinophil percentageOrdered By: Key Jasso on 03-07-2025 Eosinophils/100 WBC (Bld) 1.4 % 0-5 [facility] Erythrocyte distribution wid th ratioOrdered By: Key Jasso on 03-07-2025 Erythrocyte distribution width (RBC) [Ratio] 15.0 % High 11.6-14.6 [facility] Erythrocyte distribution wid th standard deviationOrdered By: Key Jasso on 03-07-2025 Erythrocyte distribution width (RBC) [Ratio] 52.7 fl High 35.1-43.9 [facility] Glomerular filtration rate ( GFR) estimation/1.73 sq m using serum, plasma, or whole bOrdered By: Key Jasso on 03-07-2025 GFR/1.73 sq M.predicted among non-blacks MDRD (S/P/Bld) [Vol rate/Area] 34 mL/min/{1.73_m2} Low >60 [facility] Comment on above: mL/min/1.73m2 CKD-EP I Creatinine Equation (2020) Order Comment: Order Date: 01/10/25Order Info: 0786-1 - CMPOrder Date: 07/11/24Order Info: 3016-3 - TSHStanding ORder Result Comment: mL/m in/1.73m2 CKD-EPI Creatinine Equation (2020) Performed By: #### L 501.9520, L100.0100, L500.4050 ####[facility] [address] [place], [place], [address] Hematocrit Auto (Bld) [Volum e fraction]Ordered By: Key Jasso on 03-07-2025 Hematocrit (Bld) [Volume fraction] 43.4 % 40-54 [facility] Hemoglobin A1con 03-07-2025 HbA1c (Bld) [Mass fraction] 6.7 % High <=5.6 [facility] Comment on above: Order Comment: Order Date: 01/10/25Order Info: 4548-4 - A1C Result Comment: Norm al < 5.7 % Prediabetic 5.7 - 6.4 % Diabetic >or= 6.5 % Please note range changes. Performed By: #### L 501.9985 ####[facility] [address] [place], [address] Hemoglobin A1c percentageOrd ered By: Key Jasso on 03-07-2025 HbA1c (Bld) [Mass fraction] 6.7 % High <5.7 [facility] Comment on above: Normal < 5.7 % Predi abetic 5.7 - 6.4 % Diabetic >or= 6.5 % Please note range changes. Hemoglobin measurementOrdere d By: Key Jasso on 03-07-2025 Hemoglobin (Bld) [Mass/Vol] 14.3 g/dL 13.0-16.5 [facility] Immature granulocytes/100 WB C Auto (Bld)Ordered By: Key Jasso on 03-07-2025 Immature granulocytes/100 WBC (Bld) 0.600 % 0.0-0.9 [facility] Comment on above: IG% - Immature Granu locytes (promyelocytes, myelocytes and metamyelocytes) > 1% indicates that a LEFT SHIFT is Present. International normalized rat io (INR) calculationOrdered By: Key Jasso on 03-07-2025 INR Coag (Bld) [Relative time] 1.3 {INR} [facility] MCV (mean corpuscular volume ) determinationOrdered By: Key Jasso on 03-07-2025 MCV (RBC) [Entitic vol] 95.2 fL High 80-94 [facility] Mean corpuscular hemoglobin (MCH) determinationOrdered By: Key Jasso on 03-07-2025 MCH (RBC) [Entitic mass] 31.4 pg 27.0-32.0 [facility] Mean corpuscular hemoglobin concentration (MCHC) determinationOrdered By: Key Jasso on 03-07-2025 MCHC (RBC) [Mass/Vol] 32.9 g/dL 32-36 [facility] Mean platelet volume determi nationOrdered By: Key Jasso on 03-07-2025 Platelet mean volume (Bld) [Entitic vol] 9.9 fL 6.2-12.0 [facility] Microalb:Creat Ratio,Random URon 03-07-2025 Creatinine [Mass/Vol] 301.00 mg/dL High 39.00-259.00 [facility] Comment on above: Order Comment: Order Date: 01/10/25Order Info: 94622-9 - MIALB Performed By: #### L 502.0250 ####[facility] [address] [place], [place], [address] MALB:CREAT 20.8 mg/g CRE Normal <30 mg/g CRE [facility] Comment on above: Order Comment: Order Date: 01/10/25Order Info: 91567-4 - MIALB Performed By: #### L 502.0250 ####[facility] [address] [place], [place], [address] MICROALBUMIN,UR 62.6 mg/L Normal <20 mg/L [facility] Comment on above: Order Comment: Order Date: 01/10/25Order Info: 50596-6 - MIALB Performed By: #### L 502.0250 ####[facility] [address] [place], [place], [address] Monocyte percentageOrdered B y: Key Jasso on 03-07-2025 Monocytes/100 WBC (Bld) 7.3 % 0-10 [facility] Neutrophil percentageOrdered By: Key Jasso on 03-07-2025 Neutrophils/100 WBC (Bld) 73.4 % High 47-70 [facility] Nucleated red blood cell per centageOrdered By: Key Jasso on 03-07-2025 Nucleated RBC/100 WBC (Bld) [Ratio] 0 % 0-5 [facility] Platelet countOrdered By: Torito Jasso on 03-07-2025 Platelets (Bld) [#/Vol] 275 10*3/uL 150-450 [facility] Potassium measurement (mass/ volume)Ordered By: Key Jasso on 03-07-2025 Potassium (Unsp spec) [Mass/Vol] 4.5 mmol/L 3.3-5.1 [facility] Prothrombin Time w/INRon INR Coag (PPP) [Relative time] 1.3 {INR} Normal [facility] Comment on above: Order Comment: Inter face Comments:Standing OrderOrder Date: 08/22/24Order Info: 6301-6 - PTComments: Standing ORder Performed By: #### L 300.3900 ####[facility] [address] [place], [place], [address] PT Coag (PPP) [Time] 16.6 s High 11.7-14.9 [facility] Comment on above: Order Comment: Inter face Comments:Standing OrderOrder Date: 08/22/24Order Info: 6301-6 - PTComments: Standing ORder Performed By: #### L 300.3900 ####[facility] [address] [place], [address] Prothrombin timeOrdered By: Key Jasso on 03-07-2025 PT Coag (PPP) [Time] 16.6 s High 11.7-14.9 [facility] [place] RBC Auto (Bld) [#/Vol]Ordere d By: Key Jasso on 03-07-2025 RBC (Bld) [#/Vol] 4.56 10*6/uL Low 4.6-6.2 [facility] Random urine creatinine lisa urement (mass/volume)Ordered By: Key Jasso on 03-07-2025 Creatinine Unsp time (U) [Mass/Vol] 301.00 mg/dL High 39.00-259.00 [facility] Serum creatinine measurement (mass/volume)Ordered By: Key Jasso on 03-07-2025 Creatinine [Mass/Vol] 2.06 mg/dL High 0.70-1.20 [facility] Comment on above: Order Comment: Order Date: 01/10/25Order Info: 0786- - CMPOrder Date: 07/11/24Order Info: 3016-3 - TSHStanding ORder Performed By: #### L 501.9520, L100.0100, L500.4050 ####[facility] [address] [place], [address] Serum globulin measurementOr dered By: Key Jasso on 03-07-2025 Globulin (S) [Mass/Vol] 3.0 g/dL Normal 2.2-4.2 [facility] Comment on above: Order Comment: Order Date: 01/10/25Order Info: [id number] - CMPOrder Date: 07/11/24Order Info: 6-3 - TSHStanding ORder Performed By: #### L 501.9520, L100.0100, L500.4050 ####[facility] [address] [place], [address] Serum glucose measurement (m ass/volume)Ordered By: Key Jasso on 03-07-2025 Glucose [Mass/Vol] 185 mg/dL High 70-99 [facility] Comment on above: Order Comment: Order Date: 01/10/25Order Info: 0786- - CMPOrder Date: 07/11/24Order Info: 6-3 - TSHStanding ORder Performed By: #### L 501.9520, L100.0100, L500.4050 ####[facility] [address] [place], [address] Serum or plasma alanine nunez otransferase (ALT) measurementOrdered By: Key Jasso on 03-07-2025 ALT [Catalytic activity/Vol] 17 U/L Normal <=46 [facility] Comment on above: Order Comment: Order Date: 01/10/25Order Info: 0786- - CMPOrder Date: 07/11/24Order Info: 3016-3 - TSHStanding ORder Performed By: #### L 501.9520, L100.0100, L500.4050 ####[facility] [address] [place], [address] Serum or plasma albumin lisa urement (mass/volume)Ordered By: Key Jasso on 03-07-2025 Albumin [Mass/Vol] 3.9 g/dL Normal 3.4-4.8 [facility] Comment on above: Order Comment: Order Date: 01/10/25Order Info: 0786-1 - CMPOrder Date: 07/11/24Order Info: 3016-3 - TSHStanding ORder Performed By: #### L 501.9520, L100.0100, L500.4050 ####[facility] [address] [place], [address] Serum or plasma albumin/glob ulin mass ratioOrdered By: Key Jasso on 03-07-2025 Albumin/Globulin [Mass ratio] 1.3 {ratio} Normal 0.9-2.4 [facility] Comment on above: Order Comment: Order Date: 01/10/25Order Info: 0786-1 - CMPOrder Date: 07/11/24Order Info: 6-3 - TSHStanding ORder Performed By: #### L 501.9520, L100.0100, L500.4050 ####[facility] [address] [place], [address] Serum or plasma alkaline kacy sphatase measurementOrdered By: Key Jasso on 03-07-2025 ALP [Catalytic activity/Vol] 59 U/L 40-129 [facility] Serum or plasma calcium lisa urement (mass/volume)Ordered By: Key Jasso on 03-07-2025 Calcium [Mass/Vol] 9.6 mg/dL Normal 7.6-11.0 [facility] Comment on above: Order Comment: Order Date: 01/10/25Order Info: 0786-1 - CMPOrder Date: 07/11/24Order Info: 3016-3 - TSHStanding ORder Performed By: #### L 501.9520, L100.0100, L500.4050 ####[facility] [address] [place], [address] Serum or plasma urea nitroge n measurement (mass/volume)Ordered By: Key Jasso on 03-07-2025 Urea nitrogen [Mass/Vol] 32 mg/dL High 4-19 [facility] Comment on above: Order Comment: Order Date: 01/10/25Order Info: 0786-1 - CMPOrder Date: 07/11/24Order Info: 3016-3 - TSHStanding ORder Performed By: #### L 501.9520, L100.0100, L500.4050 ####[facility] [address] [place], [address] Sodium levelOrdered By: Key Jasso on 03-07-2025 Sodium [Moles/Vol] 138 mmol/L Normal 133-145 [facility] Comment on above: Order Comment: Order Date: 01/10/25Order Info: 0786-1 - CMPOrder Date: 07/11/24Order Info: 3016-3 - TSHStanding ORder Performed By: #### L 501.9520, L100.0100, L500.4050 ####[facility] [address] [place], [address] TSH DL <= 0.005 mIU/L QnOrde red By: Key Jasso on 03-07-2025 TSH Qn 6.530 uIU/mL High 0.300-4.200 [facility] Thyroid Stim Hormone (TSH)on 03-07-2025 TSH 6.530 uIU/mL High 0.300-4.200 [facility] Comment on above: Order Comment: Order Date: 01/10/25Order Info: 0786-1 - CMPOrder Date: 07/11/24Order Info: 3016-3 - TSH Performed By: #### L 501.9520, L100.0100, L500.4050 ####[facility] [address] [place], [address] Total proteinOrdered By: Colleen Jasso on 03-07-2025 Protein [Mass/Vol] 6.9 g/dL 5.9-8.4 [facility] Urine albumin measurement wi th detection limit of 20 mg/L or less (mass/volume)Ordered By: Key Jasso on 03-07-2025 Albumin DL <= 20 mg/L (U) [Mass/Vol] 62.6 mg/L <20 mg/L [facility] White blood cell (WBC) count Ordered By: Key Jasso on 03-07-2025 WBC (Bld) [#/Vol] 7.0 10*3/uL 4.4-11.0 [facility] Inital Evaluation (1) - PTon 01-11-2025 Inital Evaluation (1) - PT [facility] Physical Therapy [facility] [address] [place] [address] / REHABILITATION SERVICES INITIAL EVALUATION MR#: [id number] Acct: [id number] Name: BRENDON DAVID Rep #: [id number] : 1950 74 From: Carlos Flores PT, Loretta. T, OCS Referring Dr.: Dr. Per Pond MD Status: REG RCR Insurance: MEDICARE PART A B [employer] SR SUPPLEMENT INS Patient's Visit Information Visit Information Visit Information: BRENDON DAVID is a 74 year old M referred to Physical Therapy by Dr. Per Pond MD with a diagnosis of SPONDYLOLISTHESIS ,LUMBAR. Date of Evaluation: 01/11/25 Physical Therapist: Carlos Flores PT, Cert T, OCS Visit Plan Frequency: 2x /Week Duration: 4 Weeks Plan: PT INTERVENTIONS DLS ,POSTURAL EX'S ,BLE STRENGTHENING ,LE FLEXABILITY ,ACTIVITY MODIFICATION AND MODALTIES Subjective Subjective: This 74 y/o male presents to physical therapy for lumbar radiculopathy with radicular symptoms left leg.Patient seen DR Pond recommended PT. lumbar spine x-rays today as well as x-rays and an MRI he had previously. These show prior L5-S1 noninstrumented fusion for severe spondylolisthesis. This seems stable. L3-4 shows grade 1 spondylolisthesis with mild dynamic instability on flexion-extension views. L2-3 shows severe disc height loss with Modic changes with severe disc degeneration and foraminal stenosis bilaterally. Mild central stenosis L2-3 and L3-4 noticed. Postsurgical changes of laminectomy and noninstrumented fusion L5-S1. Patient has had lumbar fusion 1977. Patient has not seen pain management in past but plans to see Pain management December [address] nolasco Neurologist. Symptoms located to hamstrings and radiates in leg as walking further distances. Patient has weakness in legs. Aggravating factors walking/standing ,bending and lifting. Alleviating rest. No medication. Patient sleeping okay at night. Patient has occasional paresthesia/tingling in legs. Coughing/sneezing-. Bowel/bladder-. No falls. Patient has had prior PT in past. Patient condition affects QOL and function/job demands. Patient goals to get stronger and avoid surgery. 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 Pain Bilateral Back: Pain Intensity (Out of 10): 2 Pain Intensity Range: 10 Left Lower Extremity: Pain Intensity (Out of 10): 2 Pain Intensity Range: 10 Objective Objective: POSTURE: mild forward posture GAIT: reciprocal pattern slow randell hips/knees flexed NEURO: denies paresthesia/tingling ,reflexes L3-4,L4-5,L5-S1 1/3 FLEXABILITY: hamstrings mod tight MMT: ( peak force) quads right 7.2 ,left 8.2 ,hamstrings right 6.9 ,left 6.6 ,hip flexion 0 ,ankle 4/5 LUMBAR ROM: flexion mod loss ,extension severe loss ,side glides mod loss Special Tests L/S Slump test left side: Negative L/S Slump test right side: Negative L/S Left Straight Leg Raise: Negative L/S Right Straight Leg Raise: Negative Balance/Special Test Scores Oswestry Low Back Score: 31 Goals Goal 1:: Patient to be I with HEP for back Goal Time Frame: 4-6 Weeks Goal 2:: Patient to improve peak force quads/hams/hip by 5-10# to improve function and gait Goal Time Frame: 4-6 Weeks Goal 3:: Patient to improve back oswestry score by 5 points to improve QOL and function. Goal Time Frame: 4-6 Weeks Goal 4:: Patient to improve lumbar ROM for function of recovery for job demands Goal Time Frame: 4-6 Weeks Goal 5:: Patient to demonstrate 40% improvement with less pain and improve function with gait Goal Time Frame: 4-6 Weeks Rehabilitation Potential Physical Therapy Diagnosis: This patient has lumbar radiculopathy severe stenosis with pain lumbar and left leg ,weakness legs ,poor lumbar ROM ,worse with positioning and motion testing worse with walking/standing better sitting thus benefit from skilled PT Rehabilitation Potential: Fair Anticipated Interventions Patient/Client Instruction: Educate patient on: Condition and Plan of Care For the Purpose of:: To decrease pain, To increase ROM, To improve muscle performance and motor function, To improve ability to perform ADL's, To increase tolerance to activity/condition/positi on, To improve ability of physical actions for home/community/work/leisu re, To improve gait and locomotor functions, To increase flexibility/ROM and To improve tolerance to ADL's Therapeutic Exercise to Include: Strength training, Body mechanics, Postural training, Flexibilty training and Dynamic Lumbar Stabilization Comment: BLE -QUADS/HAMS/HIP For the Purpose of:: To decrease pain, To increase ROM, To improve muscle performance and motor function, To improve ability to perform ADL's, To increase tolerance to activity/condition/positi on, To improve ability of physical actions for home/community/work/leisu re, To improve health of tissue, To decrease soft tissue restriction and To (more content not included)... Normal [facility] L/S Spine Bending Flex/[place] 01-05-2025 L/S Spine Bending Flex/Ext [facility] [address] [place], [place] [address] L/S Spine Bending Flex/Ext MR#: [id number] Acct: [id number] Name: BRENDON DAVID Rep #: [id number] : 1950 74 From: Kameron Mohamud MD PCP: Dr. Key Jasso MD Status: DEP AMB Study: L/S Spine Bending Flex/Ext Date of Exam: 01/05 Exam# [id number] Ordering Dr: Per Pond MD EXAM: XR Lumbosacral Spine Flexion/Extension Only, 2 or 3 Views CLINICAL INDICATION: PAIN TECHNIQUE: Lateral flexion/extension views of the lumbar spine and sacrum. COMPARISON: 09/21/2024 FINDINGS: VERTEBRAE: Anterior spondylolisthesis of L5 over S1 by 13 mm without significant change during extension. Significant facet arthropathy of L3-S1. Pars defects can not be entirely excluded. Severe endplate degenerative change and disc disease of L2-3. No acute fracture. SACRUM/COCCYX: Unremarkable as visualized. No acute fracture. DISC SPACES: No acute findings. No significant narrowing. SOFT TISSUES: Unremarkable. RAD/L/S Spine Bending Flex/Ext IMPRESSION: 1. Anterior spondylolisthesis of L5 over S1 by 13 mm without significant change during extension. Significant facet arthropathy of L3-S1. Pars defects can not be entirely excluded. 2. Severe endplate degenerative change and disc disease of L2-3. Reading [facility] CC: Dr. Per Pond MD; Dr. Key Jasso MD Supervisor Paper Testing: Signed Normal [facility] Orthopedic Visit Reporton Orthopedic Visit Report [facility] [facility] [address] [place] [address] OFFICE VISIT Date of Service: 01/05/25 MR#: [id number] Acct: [id number] Name: BRENDON DAVID Rep #: [id number] : 1950 Provider: Dr. Per Pond MD Age/Sex: 74/M Location: [facility] [place] Status: Signed Intake Vital Signs 12/01/22 00:12 01/05/25 08:02 Height 6 ft 1 in 6 ft 1 in Weight: 275 lb BMI 36.3 Intake Visit Reasons: LUMBAR SPINE Allergies No Known Allergies Allergy (Verified 01/05/25 08:03) Medications ???Medication ???Instructions ???Recorded ???Confirmed ???Type acarbose 100 mg tablet (Precose) 100 mg PO BID 11/12/16 12/01/22 Hi story atenolol 50 mg tablet 50 mg PO BID 11/12/16 12/01/22 His tory coenzyme Q10 100 mg capsule (Co 100 mg PO DAILY 11/12/16 12/01/22 History Q-10) dulaglutide 1.5 mg/0.5 mL 1 ml SQ WE 11/12/16 12/01/22 Histo ry subcutaneous pen injector (Trulicity) losartan 100 mg tablet 100 mg PO QHS 11/12/16 12/01/22 Hi story magnesium oxide 400 mg PO DAILY 11/12/16 12/01/22 History cinnamon bark 500 mg capsule 500 mg PO BID 05/20/19 12/01/22 Hi story furosemide 20 mg tablet 20 mg PO DAILY 05/20/19 12/01/22 H istory glimepiride 4 mg tablet 4 mg PO BID dm 05/20/19 12/01/22 H istory selenium 200 mcg tablet 200 mcg PO DAILY 05/20/19 12/01/22 History spironolactone 50 mg tablet 50 mg PO DAILY 05/20/19 12/01/22 H istory warfarin 5 mg tablet See Rx Instructions .Route .COMPLE X 05/20/19 12/01/22 History ascorbic acid (vitamin C) 1,000 mg 1 g PO DAILY 05/08/21 12/01/22 H istory tablet (Vitamin C) cholecalciferol (vitamin D3) 25 50 mcg PO DAILY 05/08/21 12/01/22 History mcg (1,000 unit) capsule (Vitamin D3) empagliflozin 25 mg tablet 25 mg PO DAILY 05/08/21 12/01/22 H istory (Jardiance) icosapent ethyl 1 gram capsule 2 g PO BID 05/08/21 12/01/22 Histo ry (Vascepa) multivitamin 1 tab PO DAILY 05/08/21 12/01/22 H istory pioglitazone 30 mg tablet 15 mg PO DAILY 05/08/21 12/01/22 H istory zinc 50 mg tablet 50 mg PO DAILY 05/08/21 12/01/22 H istory atorvastatin 20 mg tablet 20 mg PO QHS #30 tabs 05/15/21 Rx tirzepatide 10 mg/0.5 mL 8 mg subcut QWEEK 01/05/25 5 History subcutaneous pen injector (Mounjaro) Have you fallen in the past year?: No PFSH Medical History Wears glasses Non-smoker CPAP (continuous positive airway pressure) dependence Sleep apnea Hypertension DVT (deep venous thrombosis) Non-ST elevation [place] (NSTEMI) COVID-19 DVT (deep venous thrombosis) Diabetes HLD (hyperlipidemia) Type II diabetes mellitus Benign essential hypertension Surgical History History of surgical procedure on mouth Hx of tonsillectomy History of back surgery Family History Father Heart disease Mother CVA (cerebral vascular accident) Social History Smoking Status: Never smoker substance use type: does not use HPI LUMBAR SPINE Details: This documentation accurately reflects the service provided and the decisions made by me, Dr. Per Pond MD 01/05/25 0758. Part of today???s visit was documented by Gifty CARPIO, acting as scribe. BRENDON DAVID is a 74 year old M here today for low back pain that he has been having for 2-3 years now. If he is standing for long periods of time he has increased pain in his lower back along with loss of strength in both legs. He states that this has worsened within the last 2 years. He did have a lumbar fusion in 1977 which took away his pain until 2-3 years ago. He states that he was told that he has a herniated disc above his fusion. He does get occasional numbness in his hands but denies getting it in his legs or feet. He denies having a balance problem but is not stable in his legs because of the weakness. He has done PT in the past but has not done any recently. He denies having injections. He did recently have an MRI on 11/21/24. Patient states the longer he stands or walks the more difficult it is to continue walking. He's not able to walk very far without stopping, he has to lean on a shopping cart in a grocery store. Unable to stand for prolonged periods of time. He describes the pain in the lumber spine and on the posterior left leg. He will occasionally get numbness in the 5th digit in both hands. No specific balance issues but does feel he has weakness in the legs and has lost strength in the legs. Patient does have diabetes and takes mounjaro, his last A1C was 6.1 a little over a month ago. Over the last year his numbers have really improved. He (more content not included)... Normal [facility] Magnetic resonance imaging r eportOrdered By: Frank Etienne on 11-22-2024 Study report [facility] Imaging Services [address] [place] [address] Spine Lumbar (Routine) MR#: [id number] Acct: [id number] Name: BRENDON DAVID Rep #: [id number] : 1950 M 74 From: And jet Etienne DO PCP: Dr. Key Jasso MD Status: REG CLI Study:Spine Lumbar (Routine) Date of Exam: 11/21/24 Exam# [id number] Ordering Dr: Torito Jasso MD EXAM: Noncontrast MRI of the lumbar spine. CLINICAL HISTORY: Spondylolisthesis. Leg weakness. Back and left leg pain. Prior surgery 1986, without surgical specifics provided. COMPARISON: Lumbar spine radiographs 10/11/2024. No prior lumbar spine MRI. TECHNIQUE: Multi planar, multisequence MRI images of the lumbar spine were obtained withoutIV contrast. FINDINGS: There is chronic appearing mild height loss of L5. No acute lumbar vertebral body fracture or abnormal marrow replacement process is demonstrated. The conus terminates at T12-L1. The included lower spinal cord and lower thoracic intervertebral disc spaces are unremarkable. Minimal grade 1 retrolisthesis of L2 relative to L3. There is grade 1-2 anterolisthesis of L5 relative to S1. Moderate reactive endplate changes at the L2-3 level. Included portions of the sacrum and SI joints are intact. The included retroperitoneal and paraspinal soft tissues show no specific abnormality. Suggestion of prior posterior decompression at the L5-S1 level. L1-2: No focal disc herniation, significant central spinal canal, or neural foraminal narrowing. Kvlk-jg-kftiuifj degenerative facet changes. L2-3: There is severe degenerative disc disease at this level. There is lobulated contour of the endplates at this level, without keith cortical destruction. Posterior disc osteophyte complex causes moderate central spinal canal stenosis. No focal disc herniation. Moderate bilateral neural foraminal narrowing and degenerativefacet changes. L3-4: Asymmetric right disc bulge causes mild right central spinal canal narrowing. No focal disc herniation. Mild left and moderate right neural foraminal narrowing. Moderate degenerative facet changes. L4-5: Mild disc bulge without focal disc herniation or significant central spinal canal narrowing. There appears to be posterior decompression at this level. Moderate bilateral neural foraminal narrowing and moderate degenerative facet changes. L5-S1: Posterior decompression at this level. Mild diffuse disc bulge, without focal disc herniation or significant central spinal canal narrowing. Severe bilateral neural foraminal narrowing. MRI/Spine Lumbar (Routine) IMPRESSION: No acute bony abnormality of the lumbar spine. Moderate multilevel degenerative disc and facet disease in the lumbar spine. Severe disc space narrowing at L2-3 and L5-S1. Areas of focal subluxation as described above. There appears to be posterior decompression at L4-5 and L5-S1. Moderate centralspinal canal narrowing at L2-3 due to a diffuse disc bulge and ligamentum flavum/facet hypertrophy. Multilevel neural foraminal narrowing as described level by level above, to a severe degree at the L5-S1 level. Reading Location: [facility] CC: Dr. Key Jasso MD ~ Supervisor Paper Testing: Signed [facility] Spine Lumbar (Routine)on Spine Lumbar (Routine) [facility] Imaging Services [address] [place], [place] [address] Spine Lumbar (Routine) MR#: [id number] Acct: [id number] Name: BRENDON DAVID Rep #: [id number] : 1950 M 74 From: Frank Wood i DO PCP: Dr. Key Jasso MD Status: REG CLI Study: Spine Lumbar (Routine) Date of Exam: 11/21/24 Exam# [id number] Ordering Dr: Key Jasso MD EXAM: Noncontrast MRI of the lumbar spine. CLINICAL HISTORY: Spondylolisthesis. Leg weakness. Back and left leg pain. Prior surgery 1986, without surgical specifics provided. COMPARISON: Lumbar spine radiographs 10/11/2024. No prior lumbar spine MRI. TECHNIQUE: Multi planar, multisequence MRI images of the lumbar spine were obtained without IV contrast. FINDINGS: There is chronic appearing mild height loss of L5. No acute lumbar vertebral body fracture or abnormal marrow replacement process is demonstrated. The conus terminates at T12-L1. The included lower spinal cord and lower thoracic intervertebral disc spaces are unremarkable. Minimal grade 1 retrolisthesis of L2 relative to L3. There is grade 1-2 anterolisthesis of L5 relative to S1. Moderate reactive endplate changes at the L2-3 level. Included portions of the sacrum and SI joints are intact. The included retroperitoneal and paraspinal soft tissues show no specific abnormality. Suggestion of prior posterior decompression at the L5-S1 level. L1-2: No focal disc herniation, significant central spinal canal, or neural foraminal narrowing. Sbuo-zx-ghjakasl degenerative facet changes. L2-3: There is severe degenerative disc disease at this level. There is lobulated contour of the endplates at this level, without keith cortical destruction. Posterior disc osteophyte complex causes moderate central spinal canal stenosis. No focal disc herniation. Moderate bilateral neural foraminal narrowing and degenerative facet changes. L3-4: Asymmetric right disc bulge causes mild right central spinal canal narrowing. No focal disc herniation. Mild left and moderate right neural foraminal narrowing. Moderate degenerative facet changes. L4-5: Mild disc bulge without focal disc herniation or significant central spinal canal narrowing. There appears to be posterior decompression at this level. Moderate bilateral neural foraminal narrowing and moderate degenerative facet changes. L5-S1: Posterior decompression at this level. Mild diffuse disc bulge, without focal disc herniation or significant central spinal canal narrowing. Severe bilateral neural foraminal narrowing. MRI/Spine Lumbar (Routine) IMPRESSION: No acute bony abnormality of the lumbar spine. Moderate multilevel degenerative disc and facet disease in the lumbar spine. Severe disc space narrowing at L2-3 and L5-S1. Areas of focal subluxation as described above. There appears to be posterior decompression at L4-5 and L5-S1. Moderate central spinal canal narrowing at L2-3 due to a diffuse disc bulge and ligamentum flavum/facet hypertrophy. Multilevel neural foraminal narrowing as described level by level above, to a severe degree at the L5-S1 level. Reading Location: [facility] CC: Dr. Key Jasso MD Supervisor Paper Testing: Signed Normal [facility] Comprehensive Metabolic Prof ilon 10-12-2024 Albumin [Mass/Vol] 4.0 g/dL Normal 3.4-4.8 [facility] Comment on above: Performed By: #### L 506.1001, L500.4050 ####[facility] [address] [place], [address] Albumin/Globulin [Mass ratio] 1.3 {ratio} Normal 0.9-2.4 [facility] Comment on above: Performed By: #### L 506.1001, L500.4050 ####[facility] [address] [place], [address] ALK PHOS 60 U/L Normal 40-129 [facility] Comment on above: Performed By: #### L 506.1001, L500.4050 ####[facility] [address] [place], [address] ALT [Catalytic activity/Vol] 20 U/L Normal <=46 [facility] Comment on above: Performed By: #### L 506.1001, L500.4050 ####[facility] [address] [place], [address] Anion gap [Moles/Vol] 13 mmol/L Normal 5-15 [facility] Comment on above: Performed By: #### L 506.1001, L500.4050 ####[facility] [address] [place], [address] AST [Catalytic activity/Vol] 27 U/L Normal <=37 [facility] Comment on above: Performed By: #### L 506.1001, L500.4050 ####[facility] [address] [place], [address] Bilirubin [Mass/Vol] 0.38 mg/dL Normal 0.00-1.30 [facility] Comment on above: Performed By: #### L 506.1001, L500.4050 ####[facility] [address] [place], [address] BUN/CRE 19.4 RATIO Normal 10-20 [facility] Comment on above: Performed By: #### L 506.1001, L500.4050 ####[facility] [address] [place], [address] Calcium [Mass/Vol] 9.9 mg/dL Normal 7.6-11.0 [facility] Comment on above: Performed By: #### L 506.1001, L500.4050 ####[facility] [address] [place], [address] Chloride [Moles/Vol] 102 mmol/L Normal 96-108 [facility] Comment on above: Performed By: #### L 506.1001, L500.4050 ####[facility] [address] [place], [address] CO2 [Moles/Vol] 19.6 mmol/L Low 22.0-29.0 [facility] Comment on above: Performed By: #### L 506.1001, L500.4050 ####[facility] [address] [place], [address] Creatinine [Mass/Vol] 1.7 mg/dL High 0.8-1.3 [facility] Comment on above: Performed By: #### L 506.1001, L500.4050 ####[facility] [address] [place], [address] GFR/1.73 sq M.predicted among non-blacks MDRD (S/P/Bld) [Vol rate/Area] 42 mL/min/{1.73_m2} Low >60 [facility] Comment on above: Result Comment: mL/m in/1.73m2 CKD-EPI Creatinine Equation (2020) Performed By: #### L 506.1001, L500.4050 ####[facility] [address] [place], [address] Globulin (S) [Mass/Vol] 3.0 g/dL Normal 2.2-4.2 [facility] Comment on above: Performed By: #### L 506.1001, L500.4050 ####[facility] [address] [place], [address] Glucose [Mass/Vol] 221 mg/dL High 70-99 [facility] Comment on above: Performed By: #### L 506.1001, L500.4050 ####[facility] [address] [place], [address] Potassium [Moles/Vol] 4.8 mmol/L Normal 3.3-5.1 [facility] Comment on above: Performed By: #### L 506.1001, L500.4050 ####[facility] [address] [place], [address] Sodium [Moles/Vol] 135 mmol/L Normal 133-145 [facility] Comment on above: Performed By: #### L 506.1001, L500.4050 ####[facility] [address] [place], [address] T PROT 7.1 g/dL Normal 5.9-8.4 [facility] Comment on above: Performed By: #### L 506.1001, L500.4050 ####[facility] [address] [place], [address] Urea nitrogen [Mass/Vol] 33 mg/dL High 4-19 [facility] Comment on above: Performed By: #### L 506.1001, L500.4050 ####[facility] [address] [place], [address] L506.1001on 10-12-2024 Vitamin D 25-OH 25.2 ng/mL Low 30-100 [facility] Comment on above: Result Comment: Tatyana min D Status Deficiency: <20 ng/mL (50nmol/L) Insufficiency: 20-30 ng/mL (50-75 nmol/L) Sufficiency: 30-100 ng/mL (75-250 nmol/L) Toxicity: >100 ng/mL (>250 nmol/L) Performed By: #### L 506.1001, L500.4050 ####[facility] [address] [place], [address] Albumin DL <= 20 mg/L (U) [M ass/Vol]Ordered By: Key Jasso on 10-11-2024 Urine Random Microalbumin 74.4 mg/L NO RANGE EST. [facility] BUN/creatinine ratioOrdered By: Key Jasso on 10-11-2024 Urea nitrogen/Creatinine [Mass ratio] 19.4 mg/mg 10-20 [facility] Bilirubin, totalOrdered By: Key Jasso on 10-11-2024 Bilirubin [Mass/Vol] 0.38 mg/dL 0.00-1.30 [facility] CBC-Complete Blood Cnt No Di ffon 10-11-2024 Erythrocyte distribution width (RBC) [Ratio] 14.9 % High 11.6-14.6 [facility] Comment on above: Performed By: #### L 502.0250, L100.0500, L500.4050 #### [facility] [address] [place], [address] Hematocrit (Bld) [Volume fraction] 47.6 % Normal 40-54 [facility] Comment on above: Performed By: #### L 502.0250, L100.0500, L500.4050 #### [facility] [address] [place], [address] Hemoglobin (Bld) [Mass/Vol] 15.3 g/dL Normal 13.0-16.5 [facility] Comment on above: Performed By: #### L 502.0250, L100.0500, L500.4050 #### [facility] [address] [place], [address] MCH (RBC) [Entitic mass] 30.6 pg Normal 27.0-32.0 [facility] Comment on above: Performed By: #### L 502.0250, L100.0500, L500.4050 #### [facility] [address] [place], [address] MCHC (RBC) [Mass/Vol] 32.1 g/dL Normal 32-36 [facility] Comment on above: Performed By: #### L 502.0250, L100.0500, L500.4050 #### [facility] [address] [place], [address] MCV (RBC) [Entitic vol] 95.2 fL High 80-94 [facility] Comment on above: Performed By: #### L 502.0250, L100.0500, L500.4050 #### [facility] [address] [place], [address] Platelet mean volume (Bld) [Entitic vol] 10.2 fL Normal 6.2-12.0 [facility] Comment on above: Performed By: #### L 502.0250, L100.0500, L500.4050 #### [facility] [address] [place], [address] Platelets (Bld) [#/Vol] 328 10*3/uL Normal 150-450 [facility] Comment on above: Performed By: #### L 502.0250, L100.0500, L500.4050 #### [facility] [address] [place], [address] RBC (Bld) [#/Vol] 5.00 10*6/uL Normal 4.6-6.2 [facility] Comment on above: Performed By: #### L 502.0250, L100.0500, L500.4050 #### [facility] [address] [place], [address] RDW SD 52.5 fl High 35.1-43.9 [facility] Comment on above: Performed By: #### L 502.0250, L100.0500, L500.4050 #### [facility] [address] [place], [address] WBC (Bld) [#/Vol] 6.9 10*3/uL Normal 4.4-11.0 [facility] Comment on above: Performed By: #### L 502.0250, L100.0500, L500.4050 #### [facility] [address] [place], [address] Carbon dioxide measurementOr dered By: Key Jasso on 10-11-2024 CO2 [Moles/Vol] 19.6 mmol/L Low 22.0-29.0 [facility] Chloride measurementOrdered By: Key Jasso on 10-11-2024 Chloride [Moles/Vol] 102 mmol/L 96-108 [facility] Comprehensive Metabolic Prof ilon 10-11-2024 ALB Normal 3.2-5.0 [facility] Comment on above: Result Comment: REOR DERED Performed By: #### L 502.0250, L100.0500, L500.4050 #### [facility] [address] [place], [address] ALK PHOS Normal 45-117 [facility] Comment on above: Result Comment: REOR DERED Performed By: #### L 502.0250, L100.0500, L500.4050 #### [facility] [address] [place], [address] ALT Normal 16-61 [facility] Comment on above: Result Comment: REOR DERED Performed By: #### L 502.0250, L100.0500, L500.4050 #### [facility] [address] [place], [address] AST Normal 15-37 [facility] Comment on above: Result Comment: REOR DERED Performed By: #### L 502.0250, L100.0500, L500.4050 #### [facility] [address] [place], [address] BUN Normal 7-18 [facility] Comment on above: Result Comment: REOR DERED Performed By: #### L 502.0250, L100.0500, L500.4050 #### [facility] [address] [place], [address] BUN/CRE Normal 10-20 [facility] Comment on above: Result Comment: REOR DERED Performed By: #### L 502.0250, L100.0500, L500.4050 #### [facility] [address] [place], [address] Calcium Normal 8.5-10.1 [facility] Comment on above: Result Comment: REOR DERED Performed By: #### L 502.0250, L100.0500, L500.4050 #### [facility] [address] [place], [address] CL Normal 98-107 [facility] Comment on above: Result Comment: REOR DERED Performed By: #### L 502.0250, L100.0500, L500.4050 #### [facility] [address] [place], [address] CO2 Normal 21.0-32.0 [facility] Comment on above: Result Comment: REOR DERED Performed By: #### L 502.0250, L100.0500, L500.4050 #### [facility] [address] [place], [address] CREAT,SERUM Normal 0.70-1.30 [facility] Comment on above: Result Comment: REOR DERED Performed By: #### L 502.0250, L100.0500, L500.4050 #### [facility] [address] [place], [address] eGFR Normal >60 [facility] Comment on above: Result Comment: REOR DERED Performed By: #### L 502.0250, L100.0500, L500.4050 #### [facility] [address] [place], [address] EST GFR - AA Normal >60 [facility] Comment on above: Result Comment: REOR DERED Performed By: #### L 502.0250, L100.0500, L500.4050 #### [facility] [address] [place], [address] GAP Normal 5-15 [facility] Comment on above: Result Comment: REOR DERED Performed By: #### L 502.0250, L100.0500, L500.4050 #### [facility] [address] [place], [address] GLU Normal 74-106 [facility] Comment on above: Result Comment: REOR DERED Performed By: #### L 502.0250, L100.0500, L500.4050 #### [facility] [address] [place], [address] Potassium Normal 3.5-5.1 [facility] Comment on above: Result Comment: REOR DERED Performed By: #### L 502.0250, L100.0500, L500.4050 #### [facility] [address] [place], [address] T BILI Normal 0.20-1.00 [facility] Comment on above: Result Comment: REOR DERED Performed By: #### L 502.0250, L100.0500, L500.4050 #### [facility] [address] [place], [address] T PROT Normal 6.4-8.2 [facility] [facility] Comment on above: Result Comment: REOR DERED Performed By: #### L 502.0250, L100.0500, L500.4050 #### [facility] [address] [place], [place], [id number] Comprehensive Metabolic Profil Normal 136-145 [facility] Comment on above: Result Comment: FLORENTINOHORTENSIA KUSH Performed By: #### L 502.0250, L100.0500, L500.4050 #### [facility] [address] [place], [address] Creatinine Unsp time (U) [Ma ss/Vol]Ordered By: Key Jasso on 10-11-2024 Creatinine (U) [Mass/Vol] 237.00 mg/dL NO RANGE EST. [facility] Creatinine [Moles/Vol]Ordere d By: Key Jasso on 10-11-2024 Creatinine [Mass/Vol] 1.7 mg/dL High 0.8-1.3 [facility] Erythrocyte distribution wid th ratioOrdered By: Key Jasso on 10-11-2024 Erythrocyte distribution width (RBC) [Ratio] 14.9 % High 11.6-14.6 [facility] Erythrocyte distribution wid th standard deviationOrdered By: Key Jasso on 10-11-2024 Erythrocyte distribution width (RBC) [Entitic vol] 52.5 fL High 35.1-43.9 [facility] GFR/1.73 sq M.predicted marti g non-blacks MDRD (S/P/Bld) [Vol rate/Area]Ordered By: Key Jasso on 10-11-2024 Estimated GFR (MDRD) Non-Af Amer 42 Low >60 [facility] Comment on above: mL/min/1.73m2 CKD-EP I Creatinine Equation (2020) Hematocrit Auto (Bld) [Volum e fraction]Ordered By: Key Jasso on 10-11-2024 Hematocrit (Bld) [Volume fraction] 47.6 % 40-54 [facility] Hemoglobin measurementOrdere d By: Key Jasso on 10-11-2024 Hemoglobin (Bld) [Mass/Vol] 15.3 g/dL 13.0-16.5 [facility] Laboratory - Chemistry and C hemistry - challengeOrdered By: Kye Jasso on 10-11-2024 AST [Catalytic activity/Vol] 27 U/L <38 [facility] Lumbar Spine 2 or 3 Viewson 10-11-2024 Lumbar Spine 2 or 3 Views [facility] Imaging Services [address] [place] [address] Lumbar Spine 2 or 3 Views MR#: [id number] Acct: [id number] Name: BRENDON DAVID Rep #: [id number] : 1950 M 74 From: Delfin curiel MD PCP: Dr. Key Jasso MD Status: REG CLI Study: Lumbar Spine 2 or 3 Views Date of Exam: Exam# [id number] Ordering Dr: Key Jasso MD PROCEDURE: LUMBAR SPINE 2 OR 3 VIEWS REASON FOR EXAM: Lower extremity pain and weakness. TECHNIQUE: AP and lateral views were obtained. COMPARISON: None. FINDINGS: Normal lumbar vertebral heights. No evidence of fracture. Marked degree of disc space narrowing at the L2-L3 level with subchondral sclerosis and anterior spondylosis. Disc space narrowing at the L3-L4 and L4-L5 levels. Grade 2 anterior listhesis of L5 on S1 due to spondylolysis of the pars interarticularis of the L5 vertebrae. Facet joint osteoarthritis. RAD/Lumbar Spine 2 or 3 Views IMPRESSION: ADVANCED DEGENERATIVE CHANGES OF THE LUMBAR SPINE. Grade 2 anterior listhesis of L5 on S1 due to spondylolysis of the pars interarticularis of the L5 vertebrae. Reading Location: [facility] CC: Dr. Key Jasso MD Supervisor Paper Testing: Signed Normal [facility] MCV (mean corpuscular volume ) determinationOrdered By: Key Jasso on 10-11-2024 MCV (RBC) [Entitic vol] 95.2 fL High 80-94 [facility] Mean corpuscular hemoglobin (MCH) determinationOrdered By: Key Jasso on 10-11-2024 MCH (RBC) [Entitic mass] 30.6 pg 27.0-32.0 [facility] Mean corpuscular hemoglobin concentration (MCHC) determinationOrdered By: Key Jasso on 10-11-2024 MCHC (RBC) [Mass/Vol] 32.1 g/dL 32-36 [facility] Mean platelet volume determi nationOrdered By: Key Jasso on 10-11-2024 Platelet mean volume (Bld) [Entitic vol] 10.2 fL 6.2-12.0 [facility] Microalbumin/creat ratio urO rdered By: Key Jasso on 10-11-2024 Urine Microalbumin/Creatinin e Ratio 313.9 mg/g CRE [facility] No Panel InformationOrdered By: Key Jasso on 10-11-2024 Vitamin D 25-Hydroxy 25.2 ng/mL Low 30-100 [facility] Comment on above: Vitamin D StatusDefi ciency: <20 ng/mL (50nmol/L)Insufficiency: 20-30 ng/mL (50-75 nmol/L)Sufficiency: 30-100 ng/mL (75-250 nmol/L)Toxicity: >100 ng/mL (>250 nmol/L) Platelet countOrdered By: Torito Jasso on 10-11-2024 Platelets (Bld) [#/Vol] 328 10*3/uL 150-450 [facility] RBC Auto (Bld) [#/Vol]Ordere d By: Key Jasso on 10-11-2024 RBC (Bld) [#/Vol] 5.00 10*6/uL 4.6-6.2 [facility] Serum globulin measurementOr dered By: Key Jasso on 10-11-2024 Globulin (S) [Mass/Vol] 3.0 g/dL 2.2-4.2 [facility] Serum glucose measurement (m ass/volume)Ordered By: Key Jasso on 10-11-2024 Glucose [Mass/Vol] 221 mg/dL High 70-99 [facility] Serum or plasma alanine nunez otransferase (ALT) measurementOrdered By: Key Jasso on 10-11-2024 ALT [Catalytic activity/Vol] 20 U/L <47 [facility] Serum or plasma albumin lisa urement (mass/volume)Ordered By: Key Jasso on 10-11-2024 Albumin [Mass/Vol] 4.0 g/dL 3.4-4.8 [facility] Serum or plasma albumin/glob ulin mass ratioOrdered By: Key Jasso on 10-11-2024 Albumin/Globulin [Mass ratio] 1.3 {ratio} 0.9-2.4 [facility] Serum or plasma alkaline kacy sphatase measurementOrdered By: Key Jasso on 10-11-2024 ALP [Catalytic activity/Vol] 60 U/L 40-129 [facility] Serum or plasma anion gap de termination (moles/volume)Ordered By: Key Jasso on 10-11-2024 Anion gap [Moles/Vol] 13 mmol/L 5-15 [facility] Serum or plasma calcium lisa urement (mass/volume)Ordered By: Key Jasso on 10-11-2024 Calcium [Mass/Vol] 9.9 mg/dL 7.6-11.0 [facility] Serum or plasma potassium me asurementOrdered By: Key Jasso on 10-11-2024 Potassium [Moles/Vol] 4.8 mmol/L 3.3-5.1 [facility] Serum or plasma sodium measu rement (moles/volume)Ordered By: Key Jasso on 10-11-2024 Sodium [Moles/Vol] 135 mmol/L 133-145 [facility] Serum or plasma urea nitroge n measurement (mass/volume)Ordered By: Key Jasso on 10-11-2024 Urea nitrogen [Mass/Vol] 33 mg/dL High 4-19 [facility] Total proteinOrdered By: Colleen Jasso on 10-11-2024 Protein [Mass/Vol] 7.1 g/dL 5.9-8.4 [facility] White blood cell (WBC) count Ordered By: Key Jasso on 10-11-2024 WBC (Bld) [#/Vol] 6.9 10*3/uL 4.4-11.0 [facility] C reactive proteinon 024 CRP [Mass/Vol] 0.42 mg/dL Normal <1.00 [facility] Comment on above: Performed By: #### 1 988-5 #### CAN EDWARD ([id number]) [facility] ([facility]) [address] [place] [address] CBC W/Diff, Automatedon 03-18 Absolute Lymph 1.00 X10 3/uL Normal 0.83-4.51 [facility] Comment on above: Order Comment: Order Date: 03/08/24 Order Info: 0184-1 - CBCD Performed By: #### L 100.0100, L501.9985, L300.3900, L501.2450, L500.4050 #### [facility] [address] [place], [address] Absolute Neut 6.1 X10 3/uL Normal 2.0-7.7 [facility] Comment on above: Order Comment: Order Date: 03/08/24 Order Info: 0184- - CBCD Performed By: #### L 100.0100, L501.9985, L300.3900, L501.2450, L500.4050 #### [facility] [address] [place], [address] Basophils/100 WBC (Bld) 0.6 % Normal 0-1 [facility] Comment on above: Order Comment: Order Date: 03/08/24 Order Info: 0184- - CBCD Performed By: #### L 100.0100, L501.9985, L300.3900, L501.2450, L500.4050 #### [facility] [address] [place], [address] Eosinophils/100 WBC (Bld) 1.3 % Normal 0-5 [facility] Comment on above: Order Comment: Order Date: 03/08/24 Order Info: 0184-1 - CBCD Performed By: #### L 100.0100, L501.9985, L300.3900, L501.2450, L500.4050 #### [facility] [address] [place], [address] Erythrocyte distribution width (RBC) [Ratio] 14.1 % Normal 11.6-14.6 [facility] Comment on above: Order Comment: Order Date: 03/08/24 Order Info: 0184-1 - CBCD Performed By: #### L 100.0100, L501.9985, L300.3900, L501.2450, L500.4050 #### [facility] [address] [place], [address] Hematocrit (Bld) [Volume fraction] 45.1 % Normal 40-54 [facility] Comment on above: Order Comment: Order Date: 03/08/24 Order Info: 0184-1 - CBCD Performed By: #### L 100.0100, L501.9985, L300.3900, L501.2450, L500.4050 #### [facility] [address] [place], [address] Hemoglobin (Bld) [Mass/Vol] 14.6 g/dL Normal 13.0-16.5 [facility] Comment on above: Order Comment: Order Date: 03/08/24 Order Info: 0184-1 - CBCD Performed By: #### L 100.0100, L501.9985, L300.3900, L501.2450, L500.4050 #### [facility] [address] [place], [address] IG% 0.900 Normal 0.0-0.9 [facility] Comment on above: Order Comment: Order Date: 03/08/24 Order Info: 0184-1 - CBCD Result Comment: IG% - Immature Granulocytes (promyelocytes, myelocytes and metamyelocytes) > 1% indicates that a LEFT SHIFT is Present. Performed By: #### L 100.0100, L501.9985, L300.3900, L501.2450, L500.4050 #### [facility] [address] [place], [address] Lymphocytes/100 WBC (Bld) 12.8 % Low 19-41 [facility] Comment on above: Order Comment: Order Date: 03/08/24 Order Info: 0184-1 - CBCD Performed By: #### L 100.0100, L501.9985, L300.3900, L501.2450, L500.4050 #### [facility] [address] [place], [address] MCH (RBC) [Entitic mass] 30.7 pg Normal 27.0-32.0 [facility] Comment on above: Order Comment: Order Date: 03/08/24 Order Info: 018- - CBCD Performed By: #### L 100.0100, L501.9985, L300.3900, L501.2450, L500.4050 #### [facility] [address] [place], [address] MCHC (RBC) [Mass/Vol] 32.4 g/dL Normal 32-36 [facility] Comment on above: Order Comment: Order Date: 03/08/24 Order Info: 018- - CBCD Performed By: #### L 100.0100, L501.9985, L300.3900, L501.2450, L500.4050 #### [facility] [address] [place], [address] MCV (RBC) [Entitic vol] 94.9 fL High 80-94 [facility] Comment on above: Order Comment: Order Date: 03/08/24 Order Info: 018- - CBCD Performed By: #### L 100.0100, L501.9985, L300.3900, L501.2450, L500.4050 #### [facility] [address] [place], [address] Monocytes/100 WBC (Bld) 6.5 % Normal 0-10 [facility] Comment on above: Order Comment: Order Date: 03/08/24 Order Info: 018- - CBCD Performed By: #### L 100.0100, L501.9985, L300.3900, L501.2450, L500.4050 #### [facility] [address] [place], [address] Neutrophils/100 WBC (Bld) 77.9 % High 47-70 [facility] Comment on above: Order Comment: Order Date: 03/08/24 Order Info: 0184-1 - CBCD Performed By: #### L 100.0100, L501.9985, L300.3900, L501.2450, L500.4050 #### [facility] [address] [place], [address] Nucleated RBC (Bld) [#/Vol] 0 10*3/uL Normal 0-5 [facility] Comment on above: Order Comment: Order Date: 03/08/24 Order Info: 0184-1 - CBCD Performed By: #### L 100.0100, L501.9985, L300.3900, L501.2450, L500.4050 #### [facility] [address] [place], [address] Platelet mean volume (Bld) [Entitic vol] 10.4 fL Normal 6.2-12.0 [facility] Comment on above: Order Comment: Order Date: 03/08/24 Order Info: 0184-1 - CBCD Performed By: #### L 100.0100, L501.9985, L300.3900, L501.2450, L500.4050 #### [facility] [address] [place], [address] Platelets (Bld) [#/Vol] 303 10*3/uL Normal 150-450 [facility] Comment on above: Order Comment: Order Date: 03/08/24 Order Info: 0184-1 - CBCD Performed By: #### L 100.0100, L501.9985, L300.3900, L501.2450, L500.4050 #### [facility] [address] [place], [address] RBC (Bld) [#/Vol] 4.75 10*6/uL Normal 4.6-6.2 [facility] Comment on above: Order Comment: Order Date: 03/08/24 Order Info: 0184-1 - CBCD Performed By: #### L 100.0100, L501.9985, L300.3900, L501.2450, L500.4050 #### [facility] [address] [place], [address] RDW SD 49.5 fl High 35.1-43.9 [facility] Comment on above: Order Comment: Order Date: 03/08/24 Order Info: 0184-1 - CBCD Performed By: #### L 100.0100, L501.9985, L300.3900, L501.2450, L500.4050 #### [facility] [address] [place], [address] WBC (Bld) [#/Vol] 7.8 10*3/uL Normal 4.4-11.0 [facility] Comment on above: Order Comment: Order Date: 03/08/24 Order Info: 0184-1 - CBCD Performed By: #### L 100.0100, L501.9985, L300.3900, L501.2450, L500.4050 #### [facility] [address] [place], [address] Comprehensive Metabolic Prof [facility] 04-13-2024 Albumin [Mass/Vol] 3.3 g/dL Normal 3.2-5.0 [facility] Comment on above: Order Comment: Order Date: 03/08/24 Order Info: 0786-1 - CMP Order Info: 3040-3 - LIPASE Performed By: #### L 100.0100, L501.9985, L300.3900, L501.2450, L500.4050 #### [facility] [address] [place], [address] Albumin/Globulin [Mass ratio] 0.9 {ratio} Normal 0.9-2.4 [facility] Comment on above: Order Comment: Order Date: 03/08/24 Order Info: 0786-1 - CMP Order Info: 3040-3 - LIPASE Performed By: #### L 100.0100, L501.9985, L300.3900, L501.2450, L500.4050 #### [facility] [address] [place], [address] ALK P 72 U/L Normal 45-117 [facility] Comment on above: Order Comment: Order Date: 03/08/24 Order Info: 0786-1 - CMP Order Info: 3040-3 - LIPASE Performed By: #### L 100.0100, L501.9985, L300.3900, L501.2450, L500.4050 #### [facility] [address] [place], [address] ALT [Catalytic activity/Vol] 21 U/L Normal 16-61 [facility] Comment on above: Order Comment: Order Date: 03/08/24 Order Info: 0786-1 - CMP Order Info: 3040-3 - LIPASE Performed By: #### L 100.0100, L501.9985, L300.3900, L501.2450, L500.4050 #### [facility] [address] [place], [address] AST [Catalytic activity/Vol] 20 U/L Normal 15-37 [facility] Comment on above: Order Comment: Order Date: 03/08/24 Order Info: 0786-1 - CMP Order Info: 3040-3 - LIPASE Performed By: #### L 100.0100, L501.9985, L300.3900, L501.2450, L500.4050 #### [facility] [address] [place], [address] Bilirubin [Mass/Vol] 0.70 mg/dL Normal 0.20-1.00 [facility] Comment on above: Order Comment: Order Date: 03/08/24 Order Info: 0786-1 - CMP Order Info: 3040-3 - LIPASE Result Comment: For patients on eltrombopag therapy, use of Dimension [place] TBIL is not recommended. Performed By: #### L 100.0100, L501.9985, L300.3900, L501.2450, L500.4050 #### [facility] [address] [place], [address] BUN/CRE 18.2 RATIO Normal 10-20 [facility] Comment on above: Order Comment: Order Date: 03/08/24 Order Info: 0786-1 - CMP Order Info: 3040-3 - LIPASE Performed By: #### L 100.0100, L501.9985, L300.3900, L501.2450, L500.4050 #### [facility] [address] [place], [address] CA,Total 9.2 mg/dL Normal 8.5-10.1 [facility] Comment on above: Order Comment: Order Date: 03/08/24 Order Info: 0786-1 - CMP Order Info: 3040-3 - LIPASE Performed By: #### L 100.0100, L501.9985, L300.3900, L501.2450, L500.4050 #### [facility] [address] [place], [address] Chloride [Moles/Vol] 107 mmol/L Normal 98-107 [facility] Comment on above: Order Comment: Order Date: 03/08/24 Order Info: 0786-1 - CMP Order Info: 3040-3 - LIPASE Performed By: #### L 100.0100, L501.9985, L300.3900, L501.2450, L500.4050 #### [facility] [address] [place], [address] CO2 [Moles/Vol] 22.0 mmol/L Normal 21.0-32.0 [facility] Comment on above: Order Comment: Order Date: 03/08/24 Order Info: 0786-1 - CMP Order Info: 3040-3 - LIPASE Performed By: #### L 100.0100, L501.9985, L300.3900, L501.2450, L500.4050 #### [facility] [address] [place], [address] Creatinine [Mass/Vol] 1.87 mg/dL High 0.70-1.30 [facility] Comment on above: Order Comment: Order Date: 03/08/24 Order Info: 07 - CMP Order Info: 3043 - LIPASE Result Comment: The validity of the calculated GFR GFRAA in patients over 70 years has not been determined. Clinical correlation is essential. Performed By: #### L 100.0100, L501.9985, L300.3900, L501.2450, L500.4050 #### [facility] [address] [place], [address] EST GFR - AA 46 mL/min Low >60 [facility] Comment on above: Order Comment: Order Date: 03/08/24 Order Info: 0786- - CMP Order Info: 3043 - LIPASE Result Comment: Afri can [place] GFR Calc Performed By: #### L 100.0100, L501.9985, L300.3900, L501.2450, L500.4050 #### [facility] [address] [place], [place], [address] GAP 8 Normal 5-15 [facility] Comment on above: Order Comment: Order Date: 03/08/24 Order Info: 0786-1 - CMP Order Info: 304-3 - LIPASE Performed By: #### L 100.0100, L501.9985, L300.3900, L501.2450, L500.4050 #### [facility] [address] [place], [place], [address] GFR/1.73 sq M.predicted among non-blacks MDRD (S/P/Bld) [Vol rate/Area] 38 mL/min/{1.73_m2} Low >60 [facility] Comment on above: Order Comment: Order Date: 03/08/24 Order Info: 0786- - CMP Order Info: 304-3 - LIPASE Result Comment: Non- GFR Calc Performed By: #### L 100.0100, L501.9985, L300.3900, L501.2450, L500.4050 #### [facility] [address] [place], [address] Globulin (S) [Mass/Vol] 3.8 g/dL Normal 2.2-4.2 [facility] Comment on above: Order Comment: Order Date: 03/08/24 Order Info: 0786 - [facility] Order Info: 304-3 - LIPASE Performed By: #### L 100.0100, L501.9985, L300.3900, L501.2450, L500.4050 #### [facility] [address] [place], [address] Glucose [Mass/Vol] 244 mg/dL High 74-106 [facility] Comment on above: Order Comment: Order Date: 03/08/24 Order Info: 0786 - [facility] Order Info: 304-3 - LIPASE Result Comment: Gluc ose result greater than or equal to 200 mg/dL suggests DIABETES MELLITUS per A.D.A. criteria. Performed By: #### L 100.0100, L501.9985, L300.3900, L501.2450, L500.4050 #### [facility] [address] [place], [address] Potassium [Moles/Vol] 4.2 mmol/L Normal 3.5-5.1 [facility] Comment on above: Order Comment: Order Date: 03/08/24 Order Info: 0786- - [facility] Order Info: 3040-3 - LIPASE Performed By: #### L 100.0100, L501.9985, L300.3900, L501.2450, L500.4050 #### [facility] [address] [place], [address] Sodium [Moles/Vol] 137 mmol/L Normal 136-145 [facility] Comment on above: Order Comment: Order Date: 03/08/24 Order Info: 0786-1 - CMP Order Info: 3040-3 - LIPASE Performed By: #### L 100.0100, L501.9985, L300.3900, L501.2450, L500.4050 #### [facility] [address] [place], [address] T PROT 7.1 g/dL Normal 6.4-8.2 [facility] Comment on above: Order Comment: Order Date: 03/08/24 Order Info: 0786-1 - CMP Order Info: 3040-3 - LIPASE Performed By: #### L 100.0100, L501.9985, L300.3900, L501.2450, L500.4050 #### [facility] [address] [place], [address] Urea nitrogen [Mass/Vol] 34 mg/dL High 7-18 [facility] Comment on above: Order Comment: Order Date: 03/08/24 Order Info: 0786-1 - CMP Order Info: 3040-3 - LIPASE Performed By: #### L 100.0100, L501.9985, L300.3900, L501.2450, L500.4050 #### [facility] [address] [place], [address] Hemoglobin A1con 04-13-2024 HbA1c (Bld) [Mass fraction] 7.4 % High 3.8-5.6 [facility] Comment on above: Order Comment: Order Date: 03/08/24Order Info: 4548-4 - A1C Result Comment: Norm al < 5.7 % Prediabetic 5.7 - 6.4 % Diabetic >or= 6.5 % Please note range changes. Performed By: #### L 100.0100, L501.9985, L300.3900, L501.2450, L500.4050 ####[facility] [address] [place], [address] Lipaseon 04-13-2024 Lipase [Catalytic activity/Vol] 51 U/L Normal 13-75 [facility] Comment on above: Order Comment: Order Date: 03/08/24 Order Info: 0786-1 - CMP Order Info: 3040-3 - LIPASE Result Comment: Jennifer meier note: LIPASE revised reference range effective 22. New Lipase methodology. Expected to produce lower values than the previous assay method. NEW Reference Range: 13 - 75 U/L Performed By: #### L 100.0100, L501.9985, L300.3900, L501.2450, L500.4050 #### [facility] [address] [place], [address] Prothrombin Time w/INRon INR Coag (PPP) [Relative time] 2.0 {INR} Normal [facility] Comment on above: Order Comment: Order Date: 03/08/24 Order Info: 6301-6 - PT Performed By: #### L 100.0100, L501.9985, L300.3900, L501.2450, L500.4050 #### [facility] [address] [place], [address] PT Coag (PPP) [Time] 22.3 s High 11.7-14.9 [facility] Comment on above: Order Comment: Order Date: 03/08/24 Order Info: 6301-6 - PT Performed By: #### L 100.0100, L501.9985, L300.3900, L501.2450, L500.4050 #### [facility] [address] [place], [address] Absolute lymphocyte countOrd ered By: Key Jasso on 12-07-2023 Lymphocytes Auto (Unsp spec) [#/Vol] 1.10 10*3/uL 0.83-4.51 [facility] [facility] Automated lymphocyte count a s percentage of total leukocytesOrdered By: Key Jasso on 12-07-2023 Lymphocytes/100 WBC Auto (Unsp spec) 13.9 % 19-41 [facility] Basophil percentageOrdered B y: Key Jasso on 12-07-2023 Basophils/100 WBC (Bld) 0.9 % 0-1 [facility] Bilirubin [Mass/Vol] 0.60 mg/dL 0.20-1.00 [facility] [place] Comment on above: For patients on eltr ombopag therapy, use of Dimension [place] TBIL is not recommended. Chloride [Moles/Vol] 109 mmol/L 98-107 [facility] Eosinophils/100 WBC (Bld) 1.4 % 0-5 [facility] Glucose [Mass/Vol] 177 mg/dL 74-106 [facility] Comment on above: Fasting Glucose resu lt greater than or equal to 126 mg/dL suggests DIABETES MELLITUS per A.D.A. criteria. Hemoglobin (Bld) [Mass/Vol] 15.4 g/dL 13.0-16.5 [facility] Monocytes/100 WBC (Bld) 6.4 % 0-10 [facility] Neutrophils (Bld) [#/Vol] 6.1 10*3/uL 2.0-7.7 [facility] Neutrophils/100 WBC (Bld) 76.4 % 47-70 [facility] Potassium [Moles/Vol] 4.1 mmol/L 3.5-5.1 [facility] Protein [Mass/Vol] 7.5 g/dL 6.4-8.2 [facility] Sodium [Moles/Vol] 139 mmol/L 136-145 [facility] WBC (Bld) [#/Vol] 7.9 10*3/uL 4.4-11.0 [facility] Determination of erythrocyte mean corpuscular volume (MCV)Ordered By: Key Jasso on 12-07-2023 MCV (RBC) [Entitic vol] 96.2 fL 80-94 [facility] Erythrocyte distribution wid th ratioOrdered By: Key Jasso on 12-07-2023 Erythrocyte distribution width (RBC) [Ratio] 15.2 % 11.6-14.6 [facility] Erythrocyte distribution wid th standard deviationOrdered By: Key Jasso on 12-07-2023 Erythrocyte distribution width (RBC) [Entitic vol] 53.8 fL 35.1-43.9 [facility] Hematocrit Auto (Bld) [Volum e fraction]Ordered By: Key Jasso on 12-07-2023 Hematocrit (Bld) [Volume fraction] 47.9 % 40-54 [facility] Immature granulocytes/100 WB C Auto (Bld)Ordered By: Key Jasso on 12-07-2023 Immature granulocytes/100 WBC (Bld) 1.000 % 0.0-0.9 [facility] Comment on above: IG% - Immature Granu locytes (promyelocytes, myelocytes and metamyelocytes) > 1% indicates that a LEFT SHIFT is Present. Laboratory - Chemistry and C hemistry - challengeOrdered By: Key Jasso on 12-07-2023 Albumin/Globulin [Mass ratio] 0.9 {ratio} 0.9-2.4 [facility] ALP [Catalytic activity/Vol] 68 U/L 45-117 [facility] ALT [Catalytic activity/Vol] 25 U/L 16-61 [facility] CO2 [Moles/Vol] 24.0 mmol/L 21.0-32.0 [facility] Ferritin [Mass/Vol] 77 ng/mL 26-388 [facility] Globulin (S) [Mass/Vol] 4.0 g/dL 2.2-4.2 [facility] Urea nitrogen/Creatinine [Mass ratio] 20.1 mg/mg 10-20 [facility] Laboratory - Hematology and Cell countsOrdered By: Key Jasso on 12-07-2023 MCH (RBC) [Entitic mass] 30.9 pg 27.0-32.0 [facility] MCHC (RBC) [Mass/Vol] 32.2 g/dL 32-36 [facility] Nucleated RBC/100 WBC (Bld) [Ratio] 0 % 0-5 [facility] Platelet mean volume (Bld) [Entitic vol] 10.6 fL 6.2-12.0 [facility] Platelets (Bld) [#/Vol] 275 10*3/uL 150-450 [facility] No Panel InformationOrdered By: Key Jasso on 12-07-2023 Estimated GFR (MDRD) Amer 58 mL/min >60 [facility] Comment on above: GFR Calc Estimated GFR (MDRD) Non-Af Amer 48 mL/min >60 [facility] Comment on above: Non- GFR Calc Parathyroid Hormone (Intact) 33.6 pg/mL 18.4-80.1 [facility] Urine Microalbumin/Creatinin e Ratio 47.9 mg/g CRE <30 [facility] RBC Auto (Bld) [#/Vol]Ordere d By: Key Jasso on 12-07-2023 RBC (Bld) [#/Vol] 4.98 10*6/uL 4.6-6.2 [facility] Serum or plasma calcium lisa urement (mass/volume)Ordered By: Key Jasso on 12-07-2023 Calcium [Mass/Vol] 9.3 mg/dL 8.5-10.1 [facility] Serum or plasma creatinine m easurement (mass/volume)Ordered By: Key Jasso on 12-07-2023 Creatinine [Mass/Vol] 1.54 mg/dL 0.70-1.30 [facility] Comment on above: The validity of the calculated GFR & GFRAA in patients over 70 years has not been determined. Clinical correlation is essential. Serum or plasma urea nitroge n measurement (mass/volume)Ordered By: Key Jasso on 12-07-2023 Urea nitrogen [Mass/Vol] 31 mg/dL 7-18 [facility] Thin prep Papanicolaou smear with manual screeningOrdered By: Key Jasso on 12-07-2023 Thin prep Papanicolaou smear with manual screening 3.5 g/dL 3.2-5.0 [facility] Thin prep Papanicolaou smear with manual screening 17 U/L 15-37 [facility] Thin prep Papanicolaou smear with manual screening 6 5-15 [facility] Thin prep Papanicolaou smear with manual screening 59.4 mg/L NO RANGE EST. [facility] Urine creatinine measurement (mass/volume)Ordered By: Key Jasso on 12-07-2023 Creatinine (U) [Mass/Vol] 124.00 mg/dL NO RANGE EST. [facility] Basophil percentageOrdered B y: Key Jasso on 07-27-2023 Bilirubin [Mass/Vol] 0.50 mg/dL 0.20-1.00 [facility] [place] Comment on above: For patients on eltr ombopag therapy, use of Dimension [place] TBIL is not recommended. Chloride [Moles/Vol] 108 mmol/L 98-107 [facility] Glucose [Mass/Vol] 217 mg/dL 74-106 [facility] Comment on above: Glucose result great er than or equal to 200 mg/dLsuggests DIABETES MELLITUS per A.D.A. criteria. Potassium [Moles/Vol] 4.4 mmol/L 3.5-5.1 [facility] Protein [Mass/Vol] 6.8 g/dL 6.4-8.2 [facility] Sodium [Moles/Vol] 138 mmol/L 136-145 [facility] Laboratory - Chemistry and C hemistry - challengeOrdered By: Key Jasso on 07-27-2023 ALP [Catalytic activity/Vol] 71 U/L 45-117 [facility] ALT [Catalytic activity/Vol] 30 U/L 16-61 [facility] CO2 [Moles/Vol] 24.0 mmol/L 21.0-32.0 [facility] Globulin (S) [Mass/Vol] 3.6 g/dL 2.2-4.2 [facility] Urea nitrogen/Creatinine [Mass ratio] 21.7 mg/mg 10-20 [facility] No Panel InformationOrdered By: Key Jasso on 07-27-2023 Estimated GFR (MDRD) Amer 55 mL/min >60 [facility] Comment on above: GFR Calc Estimated GFR (MDRD) Non-Af Amer 45 mL/min >60 [facility] Comment on above: Non- GFR Calc Serum or plasma albumin lisa urement (mass/volume)Ordered By: Key Jasso on 07-27-2023 Albumin [Mass/Vol] 3.2 g/dL 3.2-5.0 [facility] Serum or plasma albumin/glob ulin mass ratioOrdered By: Key Jasso on 07-27-2023 Albumin/Globulin [Mass ratio] 0.9 {ratio} 0.9-2.4 [facility] Serum or plasma calcium lisa urement (mass/volume)Ordered By: Key Jasso on 07-27-2023 Calcium [Mass/Vol] 9.0 mg/dL 8.5-10.1 [facility] Serum or plasma creatinine m easurement (mass/volume)Ordered By: Key Jasso on 07-27-2023 Creatinine [Mass/Vol] 1.61 mg/dL 0.70-1.30 [facility] Comment on above: The validity of the calculated GFR & GFRAA in patients over 70 years has not been determined. Clinical correlation is essential. Serum or plasma urea nitroge n measurement (mass/volume)Ordered By: Key Jasso on 07-27-2023 Urea nitrogen [Mass/Vol] 35 mg/dL 7-18 [facility] Thin prep Papanicolaou smear with manual screeningOrdered By: Key Jasso on 07-27-2023 Thin prep Papanicolaou smear with manual screening 19 U/L 15-37 [facility] Thin prep Papanicolaou smear with manual screening 6 5-15 [facility] Whole blood hemoglobin A1c/t otal hemoglobin ratio (mass fraction)Ordered By: Key Jasso on 07-27-2023 HbA1c (Bld) [Mass fraction] 8.7 % 3.8-5.6 [facility] Comment on above: Normal < 5.7 % Predi abetic 5.7 - 6.4 % Diabetic >or= 6.5 % Please note range changes. Basophil percentageOrdered B y: Key Jasso on 07-06-2023 Bilirubin [Mass/Vol] 0.40 mg/dL 0.20-1.00 [facility] [place] Comment on above: For patients on eltr ombopag therapy, use of Dimension [place] TBIL is not recommended. Chloride [Moles/Vol] 105 mmol/L 98-107 [facility] Glucose [Mass/Vol] 265 mg/dL 74-106 [facility] Comment on above: Glucose result great er than or equal to 200 mg/dLsuggests DIABETES MELLITUS per A.D.A. criteria. Potassium [Moles/Vol] 4.3 mmol/L 3.5-5.1 [facility] Protein [Mass/Vol] 7.2 g/dL 6.4-8.2 [facility] Sodium [Moles/Vol] 134 mmol/L 136-145 [facility] INR in Blood by Coagulation assayOrdered By: Key Jasso on 07-06-2023 INR Coag (Bld) [Relative time] 3.2 {INR} [facility] Laboratory - Chemistry and C hemistry - challengeOrdered By: Key Jasso on 07-06-2023 ALP [Catalytic activity/Vol] 73 U/L 45-117 [facility] ALT [Catalytic activity/Vol] 35 U/L 16-61 [facility] CO2 [Moles/Vol] 20.0 mmol/L 21.0-32.0 [facility] Globulin (S) [Mass/Vol] 3.9 g/dL 2.2-4.2 [facility] Urea nitrogen/Creatinine [Mass ratio] 20.4 mg/mg 06-05 [facility] Laboratory - CoagulationOrde red By: Key Jasso on 07-06-2023 PT Coag (PPP) [Time] 33.1 s 11.7-14.9 [facility] No Panel InformationOrdered By: Key Jasso on 07-06-2023 Estimated GFR (MDRD) Amer 59 mL/min >60 [facility] Comment on above: GFR Calc Estimated GFR (MDRD) Non-Af Amer 48 mL/min >60 [facility] Comment on above: Non- GFR Calc Serum or plasma albumin lisa urement (mass/volume)Ordered By: Key Jasso on 07-06-2023 Albumin [Mass/Vol] 3.3 g/dL 3.2-5.0 [facility] Serum or plasma albumin/glob ulin mass ratioOrdered By: Key Jasso on 07-06-2023 Albumin/Globulin [Mass ratio] 0.8 {ratio} 0.9-2.4 [facility] Serum or plasma calcium lisa urement (mass/volume)Ordered By: Key Jasso on 07-06-2023 Calcium [Mass/Vol] 9.4 mg/dL 8.5-10.1 [facility] Serum or plasma creatinine m easurement (mass/volume)Ordered By: Key Jasso on 07-06-2023 Creatinine [Mass/Vol] 1.52 mg/dL 0.70-1.30 [facility] Comment on above: The validity of the calculated GFR & GFRAA in patients over 70 years has not been determined. Clinical correlation is essential. Serum or plasma urea nitroge n measurement (mass/volume)Ordered By: Key Jasso on 07-06-2023 Urea nitrogen [Mass/Vol] 31 mg/dL 7-18 [facility] Thin prep Papanicolaou smear with manual screeningOrdered By: Key Jasso on 07-06-2023 Thin prep Papanicolaou smear with manual screening 19 U/L 15-37 [facility] Thin prep Papanicolaou smear with manual screening 9 5-15 [facility] Basophil percentageOrdered B y: Key Jasso on 06-26-2023 Basophil percentage 3.8 mg/dL 2.5-4.9 [facility] Chloride [Moles/Vol] 103 mmol/L 98-107 [facility] Glucose [Mass/Vol] 202 mg/dL 74-106 [facility] Comment on above: Glucose result great er than or equal to 200 mg/dLsuggests DIABETES MELLITUS per A.D.A. criteria. Potassium [Moles/Vol] 4.6 mmol/L 3.5-5.1 [facility] Comment on above: Slight Hemolysis, Re sult may be falsely increased. Sodium [Moles/Vol] 136 mmol/L 136-145 [facility] INR in Blood by Coagulation assayOrdered By: Key Jasso on 06-26-2023 INR Coag (Bld) [Relative time] 2.9 {INR} [facility] Laboratory - Chemistry and C hemistry - challengeOrdered By: Key Jasso on 06-26-2023 CO2 [Moles/Vol] 26.0 mmol/L 21.0-32.0 [facility] Magnesium [Mass/Vol] 2.3 mg/dL 1.6-2.6 [facility] [place] Comment on above: Slight Hemolysis, Re sult may be falsely increased. Urea nitrogen/Creatinine [Mass ratio] 22.2 mg/mg 06-05 [facility] Laboratory - CoagulationOrde red By: Key Jasso on 06-26-2023 PT Coag (PPP) [Time] 30.3 s 11.7-14.9 [facility] No Panel InformationOrdered By: Key Jasso on 06-26-2023 Estimated GFR (MDRD) Amer 44 mL/min >60 [facility] Comment on above: GFR Calc Estimated GFR (MDRD) Non-Af Amer 37 mL/min >60 [facility] Comment on above: Non- GFR Calc Serum or plasma albumin lisa urement (mass/volume)Ordered By: Key Jasso on 06-26-2023 Albumin [Mass/Vol] 3.4 g/dL 3.2-5.0 [facility] Serum or plasma calcium lisa urement (mass/volume)Ordered By: Key Jasso on 06-26-2023 Calcium [Mass/Vol] 9.3 mg/dL 8.5-10.1 [facility] Serum or plasma creatinine m easurement (mass/volume)Ordered By: Key Jasso on 06-26-2023 Creatinine [Mass/Vol] 1.94 mg/dL 0.70-1.30 [facility] Comment on above: The validity of the calculated GFR & GFRAA in patients over 70 years has not been determined. Clinical correlation is essential. Serum or plasma urea nitroge n measurement (mass/volume)Ordered By: Key Jasso on 06-26-2023 Urea nitrogen [Mass/Vol] 43 mg/dL 7-18 [facility] Absolute lymphocyte countOrd ered By: Key Jasso on 06-22-2023 Lymphocytes Auto (Unsp spec) [#/Vol] 1.45 10*3/uL 0.83-4.51 [facility] Basophil percentageOrdered B y: Key Jasso on 06-22-2023 Basophil percentage 0 SEEN /hpf 0-5 [facility] Basophil percentage 3.8 mg/dL 2.5-4.9 [facility] Basophils/100 WBC (Bld) 0.8 % 0-1 [facility] Bilirubin [Mass/Vol] 0.90 mg/dL 0.20-1.00 [facility] [place] Comment on above: For patients on eltr ombopag therapy, use of Dimension [place] TBIL is not recommended. Chloride [Moles/Vol] 103 mmol/L 98-107 [facility] Cholesterol [Mass/Vol] 270 mg/dL <200 [facility] Comment on above: <200 mg/dL Desirable 200-240 mg/dL Borderline >240 mg/dL High Risk Eosinophils/100 WBC (Bld) 1.0 % 0-5 [facility] Glucose [Mass/Vol] 215 mg/dL 74-106 [facility] Comment on above: Glucose result great er than or equal to 200 mg/dLsuggests DIABETES MELLITUS per A.D.A. criteria. Neutrophils (Bld) [#/Vol] 4.9 10*3/uL 2.0-7.7 [facility] Neutrophils/100 WBC (Bld) 68.9 % 47-70 [facility] Potassium [Moles/Vol] 4.5 mmol/L 3.5-5.1 [facility] Comment on above: Slight Hemolysis, Re sult may be falsely increased. Protein [Mass/Vol] 7.2 g/dL 6.4-8.2 [facility] Sodium [Moles/Vol] 134 mmol/L 136-145 [facility] Triglyceride [Mass/Vol] 712 mg/dL <199 [facility] Comment on above: The drugs N-Acetylcy steine and Metamizole may falsely depress this assay. TRIGLYCERIDE IS GREATER THAN 400 mg/dL. LDL RESULT IS INVALID AND WILL NOT BE REPORTED.Serum Triglycerides Reference Interval Normal <150 mg/dL Borderline high 150 - 199 mg/dL High 200 - 499 mg/dL Very High > or = 500 mg/dL WBC (Bld) [#/Vol] 7.1 10*3/uL 4.4-11.0 [facility] Bilirubin Test strip Ql (U)O rdered By: Key Jasso on 06-22-2023 Bilirubin Ql (U) Negative Negative [facility] Blood erythrocytes count (nu mber/volume)Ordered By: Key Jasso on 06-22-2023 RBC (Bld) [#/Vol] 5.12 10*6/uL 4.6-6.2 [facility] Blood hemoglobin measurement (mass/volume)Ordered By: Key Jasso on 06-22-2023 Hemoglobin (Bld) [Mass/Vol] 15.4 g/dL 13.0-16.5 [facility] Blood lymphocytes/100 leukoc ytesOrdered By: Key Jasso on 06-22-2023 Lymphocytes/100 WBC (Bld) 20.5 % 19-41 [facility] Blood monocytes/100 leukocyt esOrdered By: Key Jasso on 06-22-2023 Monocytes/100 WBC (Bld) 8.1 % 0-10 [facility] Blood platelet mean volumeOr dered By: Key Jasso on 06-22-2023 Platelet mean volume (Bld) [Entitic vol] 9.9 fL 6.2-12.0 [facility] Determination of erythrocyte mean corpuscular volume (MCV)Ordered By: Key Jasso on 06-22-2023 MCV (RBC) [Entitic vol] 95.3 fL 80-94 [facility] Direct bilirubinOrdered By: Key Jasso on 06-22-2023 Bilirubin.direct [Mass/Vol] 0.09 mg/dL 0.00-0.30 [facility] Hematocrit Auto (Bld) [Volum e fraction]Ordered By: Key Jasso on 06-22-2023 Hematocrit (Bld) [Volume fraction] 48.8 % 40-54 [facility] INR in Blood by Coagulation assayOrdered By: Key Jasso on 06-22-2023 INR Coag (Bld) [Relative time] 2.3 {INR} [facility] Ketones Test strip Ql (U)Ord ered By: Key Jasso on 06-22-2023 Ketones Ql (U) Negative Negative [facility] Laboratory - Chemistry and C hemistry - challengeOrdered By: Key Jasso on 06-22-2023 ALP [Catalytic activity/Vol] 85 U/L 45-117 [facility] ALT [Catalytic activity/Vol] 46 U/L 16-61 [facility] CO2 [Moles/Vol] 22.0 mmol/L 21.0-32.0 [facility] Globulin (S) [Mass/Vol] 3.8 g/dL 2.2-4.2 [facility] Urea nitrogen/Creatinine [Mass ratio] 22.2 mg/mg 10-20 [facility] Laboratory - CoagulationOrde red By: Key Jasso on 06-22-2023 PT Coag (PPP) [Time] 25.8 s 11.7-14.9 [facility] Laboratory - Hematology and Cell countsOrdered By: Key Jasso on 06-22-2023 Erythrocyte distribution width (RBC) [Entitic vol] 59.3 fL 35.1-43.9 [facility] Erythrocyte distribution width (RBC) [Ratio] 17.1 % 11.6-14.6 [facility] Immature granulocytes/100 WBC (Bld) 0.700 % 0.0-0.9 [facility] Comment on above: IG% - Immature Granu locytes (promyelocytes, myelocytes and metamyelocytes) > 1% indicates that a LEFT SHIFT is Present. MCH (RBC) [Entitic mass] 30.1 pg 27.0-32.0 [facility] Nucleated RBC/100 WBC (Bld) [Ratio] 0 % 0-5 [facility] MCHC Auto (RBC) [Mass/Vol]Or dered By: Key Jasso on 06-22-2023 MCHC (RBC) [Mass/Vol] 31.6 g/dL 32-36 [facility] Mucus LM Ql (Urine sed)Order ed By: Key Jasso on 06-22-2023 Mucus Ql (Urine sed) 0 SEEN /hpf [facility] Nitrite Test strip Ql (U)Ord ered By: Key Jasso on 06-22-2023 Nitrite Ql (U) Negative Negative [facility] No Panel InformationOrdered By: Key Jasso on 06-22-2023 Estimated GFR (MDRD) Amer 38 mL/min >60 [facility] Comment on above: GFR Calc Estimated GFR (MDRD) Non-Af Amer 31 mL/min >60 [facility] Comment on above: Non- GFR Calc Urine Microalbumin/Creatinin e Ratio 48.5 mg/g CRE <30 [facility] Platelets bldOrdered By: Colleen Jasso on 06-22-2023 Platelets (Bld) [#/Vol] 293 10*3/uL 150-450 [facility] Protein Test strip Ql (U)Ord ered By: Key Jasso on 06-22-2023 Protein Ql (U) 15 mg/dl Negative [facility] Serum or plasma albumin lisa urement (mass/volume)Ordered By: Key Jasso on 06-22-2023 Albumin [Mass/Vol] 3.4 g/dL 3.2-5.0 [facility] Serum or plasma albumin/glob ulin mass ratioOrdered By: Key Jasso on 06-22-2023 Albumin/Globulin [Mass ratio] 0.9 {ratio} 0.9-2.4 [facility] Serum or plasma calcium lisa urement (mass/volume)Ordered By: Key Jasso on 06-22-2023 Calcium [Mass/Vol] 8.9 mg/dL 8.5-10.1 [facility] Serum or plasma cholesterol in HDL measurement (mass/volume)Ordered By: Key Jasso on 06-22-2023 Cholesterol in HDL [Mass/Vol] 31 mg/dL >40 [facility] Comment on above: The drugs N-Acetylcy steine and Metamizole may falsely depress this assay. Reference Range HDL <40 mg/dL Low HDL Cholesterol HDL >or= 60 mg/dL High HDL Cholesterol Serum or plasma cholesterol in VLDL measurement (mass/volume)Ordered By: Key Jasso on 06-22-2023 Cholesterol in VLDL [Mass/Vol] [facility] Comment on above: Test not performed Serum or plasma creatinine m easurement (mass/volume)Ordered By: Key Jasso on 06-22-2023 Creatinine [Mass/Vol] 2.21 mg/dL 0.70-1.30 [facility] Comment on above: The validity of the calculated GFR & GFRAA in patients over 70 years has not been determined. Clinical correlation is essential. Serum or plasma low density lipoprotein (LDL) cholesterol measurement (mass/volume)Ordered By: Key Jasso on 06-22-2023 Cholesterol in LDL [Mass/Vol] [facility] Comment on above: Test not performed Serum or plasma urea nitroge n measurement (mass/volume)Ordered By: Key Jasso on 06-22-2023 Urea nitrogen [Mass/Vol] 49 mg/dL 7-18 [facility] Squamous epithelial cells de tection in urine sediment by light microscopyOrdered By: Key Jasso on 06-22-2023 Epithelial cells.squamous LM Ql (Urine sed) 0 SEEN /hpf 0-5 [facility] Thin prep Papanicolaou smear with manual screeningOrdered By: Key Jasso on 06-22-2023 Thin prep Papanicolaou smear with manual screening 26 U/L 15-37 [facility] Comment on above: Slight Hemolysis, Re sult may be falsely increased. Thin prep Papanicolaou smear with manual screening 9 5-15 [facility] Thin prep Papanicolaou smear with manual screening 44.0 mg/L NO RANGE EST. [facility] Urine blood detectionOrdered By: Key Jasso on 06-22-2023 RBC Ql (U) Negative Negative [facility] RBC Ql (U) 0 SEEN /hpf 0-5 [facility] Urine clarityOrdered By: Colleen Jasso on 06-22-2023 Clarity (U) Clear Clear [facility] Urine color determinationOrd ered By: Key Jasso on 06-22-2023 Color (U) Yellow Yellow [facility] Urine creatinine measurement (mass/volume)Ordered By: Key Jasso on 06-22-2023 Creatinine (U) [Mass/Vol] 90.70 mg/dL NO RANGE EST. [facility] [facility] Urine glucose detectionOrder ed By: Key Jasso on 06-22-2023 Glucose Ql (U) 1000 mg/dl Normal [facility] Urine leukocyte esterase det ection by dipstickOrdered By: Key Jasso on 06-22-2023 Leukocyte esterase Test strip Ql (U) Negative Negative [facility] Urine pHOrdered By: Key dewitt on 06-22-2023 pH (U) 5.0 [pH] 5.0 - 8.0 [facility] Urine sediment bacteria coun t by microscopy (number/high power field)Ordered By: Key Jasso on 06-22-2023 Bacteria LM.HPF (Urine sed) [#/Area] 0 /[HPF] None Seen [facility] Urine specific gravity measu rementOrdered By: eKy Jasso on 06-22-2023 Specific gravity (U) [Rel density] 1.015 1.002-1.030 [facility] Urobilinogen Auto test strip Ql (U)Ordered By: Key Jasso on 06-22-2023 Urobilinogen Ql (U) Normal mg/dl Normal [facility] Whole blood hemoglobin A1c/t otal hemoglobin ratio (mass fraction)Ordered By: Key Jasso on 06-22-2023 HbA1c (Bld) [Mass fraction] 8.5 % 3.8-5.6 [facility] Comment on above: Normal < 5.7 % Predi abetic 5.7 - 6.4 % Diabetic >or= 6.5 % Please note range changes. CT FACIAL BONES WO IV CONTRA STon 06-19-2023 CT FACIAL BONES WO IV CONTRAST Interpreted By: Christopher Oconnell, Mani Green STUDY: CT FACIAL BONES WO IV CONTRAST 06/19/2023 8:30 am INDICATION: Signs/Symptoms:osteomyeli tis of maxilla COMPARISON: None. ACCESSION NUMBER(S): [id number] ORDERING CLINICIAN: NATIVIDAD RODRIGUEZ TECHNIQUE: Thin cut axial CT images through the facial bones were obtained and reconstructed in the coronal and sagittal plane. FINDINGS: Orbits: The bony orbits are intact. The orbital contents are unremarkable. Facial Bones: Status post maxillectomy including the anterior maxilla, left alveolar ridge, and hard palate extending to the anterior aspects of the bilateral pterygoid plates, partially including the left pterygoid plate. Teeth # 6, # 7 and #8 have been removed in the interval since the previous exam. The previously demonstrated packing material or cement within the left maxillary sinus, alveolar ridge and palate have been removed and a fat containing myocutaneous flap has been placed in the left alveolar ridge and anterior oral cavity. There is partial absence of the right hard palate including a portion of the left alveolar recess. There is decreased polypoid soft tissue thickening and fluid in the right maxillary sinus. Mandible/Temporomandibula r Joints: Visualized portions of mandible and bilateral temporomandibular joints are intact. Paranasal Sinuses/Mastoids: Interval scratch the bilateral partial ethmoidectomy. A 3 mm exophytic osseous lesion is noted within the right mastoid air cells, likely an osteoma. Improved now trace left mastoid effusion. Soft tissues: No fluid collection. Other: Diffuse prominence of the partially visualized ventricles and sulci. IMPRESSION: Status post maxillectomy with myocutaneous flap reconstruction. No evidence of osteomyelitis. Improved now trace left mastoid effusion. I personally reviewed the images/study and I agree with the findings as stated by Peter Nuñez MD. This study was interpreted at [facility], [place], [place]. MACRO: None Signed by: Christopher Oconnell 06/19/2023 10:11 AM Dictation workstation: [id number] [facility] Comment on above: Order Comment: Daniel Martines elected: Y CT Maxillofacial region WO ramiundo clemente 06-19-2023 Status post maxillec marla with myocutaneous flap reconstruction. No evidence of osteomyelitis. Improved now trace left mastoid effusion. I personally reviewed the images/study and I agree with the findings as stated by Peter Nuñez MD. This study was interpreted at [facility], [place], [place]. MACRO: None Signed by: Christopher Oconnell 06/19/2023 10:11 AM Dictation workstation: [id number] [facility] Interpreted By: Christopher Crook, and Joaquin Green STUDY: CT FACIAL BONES WO IV CONTRAST 06/19/2023 8:30 am INDICATION: Signs/Symptoms:osteomyeli tis of maxilla COMPARISON: None. ACCESSION NUMBER(S): [id number] ORDERING CLINICIAN: NATIVIDAD RODRIGUEZ TECHNIQUE: Thin cut axial CT images through the facial bones were obtained and reconstructed in the coronal and sagittal plane. FINDINGS: Orbits: The bony orbits are intact. The orbital contents are unremarkable. Facial Bones: Status post maxillectomy including the anterior maxilla, left alveolar ridge, and hard palate extending to the anterior aspects of the bilateral pterygoid plates, partially including the left pterygoid plate. Teeth # 6, # 7 and #8 have been removed in the interval since the previous exam. The previously demonstrated packing material or cement within the left maxillary sinus, alveolar ridge and palate have been removed and a fat containing myocutaneous flap has been placed in the left alveolar ridge and anterior oral cavity. There is partial absence of the right hard palate including a portion of the left alveolar recess. There is decreased polypoid soft tissue thickening and fluid in the right maxillary sinus. Mandible/Temporomandibula r Joints: Visualized portions of mandible and bilateral temporomandibular joints are intact. Paranasal Sinuses/Mastoids: Interval scratch the bilateral partial ethmoidectomy. A 3 mm exophytic osseous lesion is noted within the right mastoid air cells, likely an osteoma. Improved now trace left mastoid effusion. Soft tissues: No fluid collection. Other: Diffuse prominence of the partially visualized ventricles and sulci. MMODAL Christopher Oconnell MD - 06/19/2023 Interpreted By: Christopher Oconnell, and Joaquin Green STUDY: CT FACIAL BONES WO IV CONTRAST 06/19/2023 8:30 am INDICATION: Signs/Symptoms:osteomyeli tis of maxilla COMPARISON: None. ACCESSION NUMBER(S): [id number] ORDERING CLINICIAN: NATIVIDAD RODRIGUEZ TECHNIQUE: Thin cut axial CT images through the facial bones were obtained and reconstructed in the coronal and sagittal plane. FINDINGS: Orbits: The bony orbits are intact. The orbital contents are unremarkable. Facial Bones: Status post maxillectomy including the anterior maxilla, left alveolar ridge, and hard palate extending to the anterior aspects of the bilateral pterygoid plates, partially including the left pterygoid plate. Teeth # 6, # 7 and #8 have been removed in the interval since the previous exam. The previously demonstrated packing material or cement within the left maxillary sinus, alveolar ridge and palate have been removed and a fat containing myocutaneous flap has been placed in the left alveolar ridge and anterior oral cavity. There is partial absence of the right hard palate including a portion of the left alveolar recess. There is decreased polypoid soft tissue thickening and fluid in the right maxillary sinus. Mandible/Temporomandibula r Joints: Visualized portions of mandible and bilateral temporomandibular joints are intact. Paranasal Sinuses/Mastoids: Interval scratch the bilateral partial ethmoidectomy. A 3 mm exophytic osseous lesion is noted within the right mastoid air cells, likely an osteoma. Improved now trace left mastoid effusion. Soft tissues: No fluid collection. Other: Diffuse prominence of the partially visualized ventricles and sulci. IMPRESSION: Status post maxillectomy with myocutaneous flap reconstruction. No evidence of osteomyelitis. Improved now trace left mastoid effusion. I personally reviewed the images/study and I agree with the findings as stated by Peter Nuñez MD. This study was interpreted at [place], [place]. MACRO: None Signed by: Christopher Oconnell 06/19/2023 10:11 AM Dictation workstation: [id number] [facility] Work Phone: Radiology Study observation (narrative) [facility] Work Phone: CT Maxillofacial region WO c ontrastOrdered By: Christopher Oconnell on 06-19-2023 [facility] Work Phone: Blood Urea Nitrogen, Serumon 05-04-2023 Urea nitrogen [Mass/Vol] 29 mg/dL above high threshold 6 - 23 [facility] Work Phone: CREATININEon 05-04-2023 Creatinine [Mass/Vol] 1.68 mg/dL High 0.50 - 1.30 [facility] Comment on above: Performed By: #### C REAT ####[id number] [place] [address] GFR/1.73 sq M.predicted among non-blacks MDRD (S/P/Bld) [Vol rate/Area] 43 mL/min/{1.73_m2} Abnormal >90 [facility] Comment on above: Result Comment: CALC ULATIONS OF ESTIMATED GFR ARE PERFORMED USING THE 2020 CKD-EPI STUDY REFIT EQUATION WITHOUT THE RACE VARIABLE FOR THE IDMS-TRACEABLE CREATININE METHODS.https://jasn.asnjournals.org/content/early/A SN.3475747245 Performed By: #### C REAT ####[id number] [place] [address] Creatinine, Serumon 05-04-20 23 Creatinine [Mass/Vol] 1.68 mg/dL above high threshold See Below [facility] Work Phone: Comment on above: Reference Range: 0.5 0 - 1.30 Creatinine, Serum 43 {mL/min/1.73m2} Abnormal >90 [facility] Work Phone: Comment on above: CALCULATIONS OF REYNALDO MATED GFR ARE PERFORMED USING THE 2020 CKD-EPI STUDY REFIT EQUATION WITHOUT THE RACE VARIABLE FOR THE IDMS-TRACEABLE CREATININE METHODS.https://jasn.asnjournals.org/content/early/A SN.8937197955 Tobacco Screening.on 023 Adult depression screening assessment No [facility] Work Phone: Fall risk assessment a) No falls within the last year [facility] [address] Work Phone: Tobacco use status [facility] b) No [facility] [address] Work Phone: UREA NITROGENon 05-04-2023 Urea nitrogen [Mass/Vol] 29 mg/dL High 6 - 23 [facility] Comment on above: Performed By: #### U JOAQUINA ####[id number] [place] [address] ID - Follow Upon 03-31-2023 ID - Follow Up Chief Complaint Visit For: Other An interactive audio and video telecommunication system which permits real time communications between the patient (at the originating site) and provider (at the distant site) was utilized to provide this telehealth service. Verbal consent was requested and obtained from BRENDON DAVID on this date, 03/31/2023 10:20 AM , for a telehealth visit. Patient presents here today for a hospital follow up visit. History of Present IllnessUpdate March 31, 2023. Recent notes and labs reviewed. ENT note reviewed. Patient reports he is doing well. Excellent tolerance of doxycycline. No sunburn no nausea vomiting or GI distress. Feels like his face and sinuses are getting better. from 01/02 Prior to seeing the patient we reviewed all records going back to October including notes imaging path reports labs First outpatient follow-up for gentleman who we have seen in the hospital and diagnosed with chronic actinomycoses cervical facial infection. Patient states that he started having tooth problems in 2018 and things seem to get worse when he had COVID in 2020. He eventually presented with osteomyelitis and fistula between his sinuses and mouth and saw a number of outside providers and finally was referred to [facility]-- in October underwent surgery and debridement with the path not showing any malignancy but with organisms consistent with actinomycoses. In October he was treated with fluconazole and ampicillin-sulbactam was readmitted in November when we saw him in hospital. At that time we recommended continued ampicillin-sulbactam with a plan to switch to chronic oral therapy for actinomycoses. His ampicillin-sulbactam was stopped a bit early as he developed some mild acute kidney injury which we thought was likely to be a drug reaction. We started the doxycycline on December 19; except for some mild sunburn he is doing well with doxycycline. He feels better and feels like his mouth and face is doing better. No fevers chills nausea vomiting diarrhea. 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) Pain of tooth on palpation (525.9) (K08.89) Personal history of COVID-19 (V12.09) (Z86.16) Preoperative clearance (V72.84) (Z01.818) Sinus pain (478.19) (J34.89) Type [address] elevation (410.70) (I21.A1) Allergies No Known Allergies Recorded By: Zulema Sequeira; 10/30/2022 9:06:50 AM Current Meds Fluticasone Propionate 50 MCG/ACT Nasal Suspension; USE 2 SPRAYS IN EACH NOSTRIL ONCE DAILY; Therapy: [id number] to (Last Rx:[id number]) Requested for: 25Nov2022 Ordered Rx By: Natividad Rodriguez; Dispense: 0 Days ; #:1 X 15.8 ML Bottle; Refill: 12;For: Chronic sinusitis; KIA = N; Verified Transmission to [facility] #[id number] Chlorhexidine Gluconate 0.12 % Mouth/Throat Solution; RINSE MOUTH WITH 15ML (1 CAPFUL) FOR 30 SECONDS AM AND PM AFTER TOOTHBRUSHING. EXPECTORATE AFTER RINSING, DO NOT SWALLOW; Therapy: [id number] to (Evaluate:[id number]) Requested for: 81Flx2975; Last Rx:[id number] Ordered Rx By: Uriah Amador; Dispense: 32 Days ; #:2 X 473 ML Bottle; Refill: 0;For: Mouth lesion, Oroantral fistula; KIA = N; Verified Transmission to [facility] #[id number] Doxycycline Hyclate 100 MG Oral Capsule; Take 1 capsule twice daily; Therapy: 19Dec2022 to (Evaluate:28Dec2023) Requested for: 02Jan2023; Last Rx:02Jan2023 Ordered Rx By: Sadia Dickson; Dispense: 90 Days ; #:180 Capsule; Refill: 3;For: Osteomyelitis of maxilla; KIA = N; Verified Transmission to [facility] #[id number]; Last Updated By: [email or web address]; 03/31/2023 10:28:20 AM Chlorhexidine Gluconate 0.12 % Mouth/Throat Solution; RINSE MOUTH WITH 15ML (1 CAPFUL) FOR 30 SECONDS AM AND PM AFTER TOOTHBRUSHING. EXPECTORATE AFTER RINSING, DO NOT SWALLOW; Therapy: 12Nov2022 to (Evaluate:28Nov2022); Last Rx:12Nov2022 Ordered Rx By: Leslee Hearn; Dispense: 16 Days ; #:473 Milliliter; Refill: 0;For: Sinus pain; KIA = N; Print Rx Atenolol 50 MG Oral Tablet; Therapy: (Recorded:30Oct2022) to Recorded Dispense: 0 Days ; #: Sufficient; Refill: 0; KIA = N; Record; Last Updated By: Zulema Sequeira; 10/30/2022 9:06:50 AM Cinnamon 500 MG Oral Tablet; Therapy: (Recorded:30Oct2022) to Recorded Dispense: 0 Days ; #: Sufficient; Refill: 0; KIA = N; Record; Last Updated By: Zulema Sequeira; 10/30/2022 9:06:50 AM Coenzyme Q-10 100 MG Oral Capsule; Therapy: (Recorded:30Oct2022) to Recorded Dispense: 0 Days ; #: Sufficient; Refill: 0; KIA = N; Record; Last Updated By: Zulema Sequeira; 10/30/2022 9:06:50 AM Furosemide 20 MG Oral Tablet; Therapy: (Recorded:30Oct2022) to Recorded Dispense: 0 Days ; #: Sufficient; Refill: 0; KIA = N; Record; Last Updated By: Zulema Sequeira; 10/30/2022 (more content not included)... Normal [facility] Established Visit (Otolaryng ology)on 02-23-2023 Established Visit (Otolaryngology) Provider Impressions 72 yo man with a destructive process involving much of the left maxilla CT - mottled appearance throughout the maxilla involving nearly all of the premaxilla bl, and posteriorly into the ptyergoid plates biopsy - neg for malignancy cultures - mixed infection, beta-lactamase+ with dania s/p recon with serratus/rib free flap -well healed -RTC in 4 months, will get a scan then to assess the maxillary sinus Chief Complaint follow up History of Present [id number] yo man who presents for evaluation of pain and swelling in the jaw. He start noticing problems with swelling almost 2 years ago, but more recently has had leakage of food/water from his nose. He had a tooth extracted which didn't help. Had CT scans done. Saw dr. Amador and was referred to me. non smoker. on coumadin for blood clot in the leg. no history of cad. 11-25-22 post-op: doing well after debridement, PEG; tolerating PO with some nasal reflux, no pain; tolerating ABX 12-23-22 FU: had some drainage yesterday from the neck, no increased swelling/redness/pain; tolerating PO intake 01-05-23 FU: s/p debridement of bone, mucosal flap with dr. amador last week. 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 EXPECTORATE AFTER RINSING, DO NOT SWALLOW Chlorhexidine Gluconate 0.12 % Mouth/Throat SolutionRINSE MOUTH WITH 15ML (1 CAPFUL) FOR 30 SECONDS AM AND PM AFTER TOOTHBRUSHING. EXPECTORATE AFTER RINSING, DO NOT SWALLOW Cinnamon 500 MG Oral Tablet Clindamycin HCl - 150 MG Oral CapsuleTAKE 3 CAPSULES EVERY 6 HOURS. CONTINUE FOR 10 DAYS AND THEN STOP. Clotrimazole 10 MG Mouth/Throat TrocheDISSOLVE 1 TABLET BY MOUTH 5 TIMES PER DAY Coenzyme Q-10 100 MG Oral Capsule Doxycycline Hyclate 100 MG Oral CapsuleTake 1 capsule twice daily Fluconazole 200 MG Oral Tablet Fluticasone Propionate 50 MCG/ACT Nasal SuspensionUSE 2 SPRAYS IN EACH NOSTRIL ONCE DAILY Furosemide 20 MG Oral Tablet Glimepiride 4 MG Oral Tablet hydrALAZINE HCl - 50 MG Oral Tablet Jardiance 25 MG Oral Tablet Losartan Potassium 100 MG Oral Tablet Magnesium Oxide 400 MG Oral Tablet methylPREDNISolone 4 MG Oral Tablet Therapy PackTAKE 6 TABLETS ON DAY 1 DIRECTED ON PACKAGE AND DECREASE BY 1 TAB EACH DAY FOR A TOTAL OF 6 DAYS Multi Vitamin Mens TABS Pioglitazone HCl - 30 MG Oral Tablet Psyllium Husk 100 % POWD Red Yeast Rice 600 MG Oral Capsule Selenium 200 MCG Oral Tablet Spironolactone 50 MG Oral Tablet Vitamin C 1000 MG Oral Tablet Vitamin D 1000 UNIT TABS Warfarin Sodium 1 MG Oral Tablet Warfarin Sodium 5 MG Oral Tablet Zinc TABS Vitals Vital Signs Recorded: [id number] 10:41AM Zzewrexxdqv27.8 F Height6 ft 1 in Ggpjxy808 lb BMI Sbhrzlpdxq79.41 kg/m2 BSA Calculated2.47 Tobacco Useb) No PHQ-2 #1. Over the last 2 weeks have you felt down, depressed or hopeless? (If yes, answer PHQ-9 below)No PHQ-2 #2. Over the last 2 weeks have you felt little interest or pleasure in doing things? (If yes, answer PHQ-9 below)No Falls Screening (Age 18+)a) No falls within the last year Physical Exam nad alert cayden eomi NCAT nasal cavity clear ocop - healed scar band from prior muscle flap neck incision healing well Procedure Flexible nasal endoscopy Indications: sinusitis Anesthetized nasal cavity with afrin and lidocaine : Scope was advanced through the left nostril: No masses or lesions seen in the nasal cavity, nasopharynx left maxillary sinus with scarred flap, no obvious purulence nasal cavity widely patent Pt tolerated well. 'Scores and Scales' Signatures Electronically signed by : Natividad Rodriguez MD; Feb 23 2023 11:01AM EST (Author) Normal [employer] [facility] Absolute lymphocyte countOrd ered By: Key Jasso on 02-20-2023 Lymphocytes Auto (Unsp spec) [#/Vol] 1.54 10*3/uL 0.83-4.51 [facility] Basophil percentageOrdered B y: Keynevin Jasso on 02-20-2023 Basophils/100 WBC (Bld) 0.6 % 0-1 [facility] Bilirubin [Mass/Vol] 0.40 mg/dL 0.20-1.00 [facility] [place] Comment on above: For patients on eltr ombopag therapy, use of Dimension [place] TBIL is not recommended. Chloride [Moles/Vol] 103 mmol/L 98-107 [facility] [place] Eosinophils/100 WBC (Bld) 2.3 % 0-5 [facility] Glucose [Mass/Vol] 257 mg/dL 74-106 [facility] Comment on above: Glucose result great er than or equal to 200 mg/dLsuggests DIABETES MELLITUS per A.D.A. criteria. Neutrophils (Bld) [#/Vol] 7.0 10*3/uL 2.0-7.7 [facility] Neutrophils/100 WBC (Bld) 73.5 % 47-70 [facility] Potassium [Moles/Vol] 4.2 mmol/L 3.5-5.1 [facility] Comment on above: Slight Hemolysis, Re sult may be falsely increased. Protein [Mass/Vol] 7.3 g/dL 6.4-8.2 [facility] Sodium [Moles/Vol] 135 mmol/L 136-145 [facility] WBC (Bld) [#/Vol] 9.5 10*3/uL 4.4-11.0 [facility] Blood erythrocytes count (nu mber/volume)Ordered By: Key Jasso on 02-20-2023 RBC (Bld) [#/Vol] 4.82 10*6/uL 4.6-6.2 [facility] Blood hemoglobin measurement (mass/volume)Ordered By: Key Jasso on 02-20-2023 Hemoglobin (Bld) [Mass/Vol] 14.3 g/dL 13.0-16.5 [facility] Blood lymphocytes/100 leukoc ytesOrdered By: Key Jasso on 02-20-2023 Lymphocytes/100 WBC (Bld) 16.2 % 19-41 [facility] Blood monocytes/100 leukocyt esOrdered By: Key Jasso on 02-20-2023 Monocytes/100 WBC (Bld) 6.5 % 0-10 [facility] Blood platelet mean volumeOr dered By: Key Jasso on 02-20-2023 Platelet mean volume (Bld) [Entitic vol] 10.6 fL 6.2-12.0 [facility] Determination of erythrocyte mean corpuscular volume (MCV)Ordered By: Key Jasso on 02-20-2023 MCV (RBC) [Entitic vol] 95.9 fL 80-94 [facility] Erythrocyte sedimentation ra teOrdered By: Key Jasso on 02-20-2023 ESR (Bld) [Velocity] 37 mm/h 0-20 [facility] [place] Hematocrit Auto (Bld) [Volum e fraction]Ordered By: Key Jasso on 02-20-2023 Hematocrit (Bld) [Volume fraction] 46.2 % 40-54 [facility] Laboratory - Chemistry and C hemistry - challengeOrdered By: Key Jasso on 02-20-2023 ALP [Catalytic activity/Vol] 81 U/L 45-117 [facility] ALT [Catalytic activity/Vol] 33 U/L 16-61 [facility] CO2 [Moles/Vol] 26.0 mmol/L 21.0-32.0 [facility] Globulin (S) [Mass/Vol] 4.1 g/dL 2.2-4.2 [facility] Urea nitrogen/Creatinine [Mass ratio] 17.0 mg/mg 10-20 [facility] Laboratory - Hematology and Cell countsOrdered By: Key Jasso on 02-20-2023 Erythrocyte distribution width (RBC) [Entitic vol] 50.7 fL 35.1-43.9 [facility] Erythrocyte distribution width (RBC) [Ratio] 14.5 % 11.6-14.6 [facility] Immature granulocytes/100 WBC (Bld) 0.900 % 0.0-0.9 [facility] Comment on above: IG% - Immature Granu locytes (promyelocytes, myelocytes and metamyelocytes) > 1% indicates that a LEFT SHIFT is Present. MCH (RBC) [Entitic mass] 29.7 pg 27.0-32.0 [facility] Nucleated RBC/100 WBC (Bld) [Ratio] 0 % 0-5 [facility] MCHC Auto (RBC) [Mass/Vol]Or dered By: Key Jasso on 02-20-2023 MCHC (RBC) [Mass/Vol] 31.0 g/dL 32-36 [facility] No Panel InformationOrdered By: Key Jasso on 02-20-2023 Estimated GFR (MDRD) Amer 41 mL/min >60 [facility] Comment on above: GFR Calc Estimated GFR (MDRD) Non-Af Amer 34 mL/min >60 [facility] Comment on above: Non- GFR Calc Platelets bldOrdered By: Colleen Jasso on 02-20-2023 Platelets (Bld) [#/Vol] 362 10*3/uL 150-450 [facility] Serum or plasma albumin lisa urement (mass/volume)Ordered By: Key Jasso on 02-20-2023 Albumin [Mass/Vol] 3.2 g/dL 3.2-5.0 [facility] Serum or plasma albumin/glob ulin mass ratioOrdered By: Key Jasso on 02-20-2023 Albumin/Globulin [Mass ratio] 0.8 {ratio} 0.9-2.4 [facility] Serum or plasma calcium lisa urement (mass/volume)Ordered By: Key Jasso on 02-20-2023 Calcium [Mass/Vol] 8.9 mg/dL 8.5-10.1 [facility] Serum or plasma creatinine m easurement (mass/volume)Ordered By: Key Jasso on 02-20-2023 Creatinine [Mass/Vol] 2.06 mg/dL 0.70-1.30 [facility] Comment on above: The validity of the calculated GFR & GFRAA in patients over 70 years has not been determined. Clinical correlation is essential. Serum or plasma urea nitroge n measurement (mass/volume)Ordered By: Key Jasso on 02-20-2023 Urea nitrogen [Mass/Vol] 35 mg/dL 7-18 [facility] Thin prep Papanicolaou smear with manual screeningOrdered By: Key Jasso on 02-20-2023 Thin prep Papanicolaou smear with manual screening 29 U/L 15-37 [facility] Comment on above: Slight Hemolysis, Re sult may be falsely increased. Thin prep Papanicolaou smear with manual screening 6 5-15 [facility] Whole blood hemoglobin A1c/t otal hemoglobin ratio (mass fraction)Ordered By: Key Jasso on 02-20-2023 HbA1c (Bld) [Mass fraction] 8.2 % 3.8-5.6 [facility] Comment on above: Normal < 5.7 % Predi abetic 5.7 - 6.4 % Diabetic >or= 6.5 % Please note range changes. 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 EXPECTORATE AFTER RINSING, DO NOT SWALLOW History of Present Illness 7.3.23 doing well. here for follow up. no evidence of fistula and pain has substantially reduced. 5.23 s/p bone debridement and mucosal flap palate intact well healed well mucosalized without evidence of fistula continue peridex BID rtc 3 months IH 5.15.23 Flap healed, now with some exposed bone IH 5.1.23 s/p serratus free flap for reconstruction of the palate doing well IH 4.17.12 Dr. Rodriguez performed maxilla debridement, has been on IV abx for osteomyelitis now planning for further debridement with reconstruction currently has left maxilla defect after extractions and debridment allens test with good ulnar flow bilaterally discussed free flap reconstruction after debridement completed by Dr. Rodriguez, likely serratus/scapula tip, neck exploration possible tracheostomy, pt already has g-tube for nutrition Chief Complaint: left vanessa-antral fistula Referring Provider: Dr. Key Jasso and Dr. Sutherland Location: left maxilla Quality: fistula, necrotic bone, swelling Severity: moderate Duration: 1.5 years Timing: all times Context: progressive disease of the left maxilla, denies history of smoking Modifying factors: none Associated signs and symptoms: left facial pain, left facial numbness, fistula of the maxillary sinus underwent previous septoplasty and ESS fistula appeared within the last 2 months no biopsies up to this point dental extraction of the left molar with dry socket now with progressive pain, bone exposure, non-healing wound, palate swelling referred for work up CT sinus wo contrast obtained outside, not available for review today Past, family, and social history obtained but not pertinent to current problem unless documented above. All other systems have been reviewed and are negative for complaint unless documented above. Physical Exam at initial visit General: Well-developed and well-nourished in appearance. Skin: No rashes or concerning lesions on the visible portions of the skin. Eyes: Extraocular movements intact. Visual randall grossly normal. Ears: Pinna are normal in shape and position. External canals are patent. Nose: Dorsum is midline Oral Cavity/Oropharynx: left posterior maxilla oroantral fistula, necrotic bone alone left maxilla buccal ridge, raised mucosa of the right hard palate Neck: Midline trachea without masses or lesions. Thyroid is normal in size. Lymphatics: No palpable cervical lymphadenopathy Respiratory: No respiratory distress. Quiet breathing without stertor or stridor. Cardiovascular: Regular rate and rhythm. Warm extremities with equal pulses. Psych: Normal mood and affect. Judgement and insight appropriate. Neuro: Alert and oriented. CN II-XII grossly intact. No focal deficits. 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 EXPECTORATE AFTER RINSING, DO NOT SWALLOW Cinnamon 500 MG Oral Tablet Clindamycin HCl - 150 MG Oral CapsuleTAKE 3 CAPSULES EVERY 6 HOURS. CONTINUE FOR 10 DAYS AND THEN STOP. Clotrimazole 10 MG Mouth/Throat TrocheDISSOLVE 1 TABLET BY MOUTH 5 TIMES PER DAY Coenzyme Q-10 100 MG Oral Capsule Doxycycline Hyclate 100 MG Oral CapsuleTake 1 capsule twice daily Fluconazole 200 MG Oral Tablet Fluticasone Propionate 50 MCG/ACT Nasal SuspensionUSE 2 SPRAYS IN EACH NOSTRIL ONCE DAILY Furosemide 20 MG Oral Tablet Glimepiride 4 MG Oral Tablet hydrALAZINE HCl - 50 MG Oral Tablet Jardiance 25 MG Oral Tablet Losartan Potassium 100 MG Oral Tablet Magnesium Oxide 400 MG Oral Tablet methylPREDNISolone 4 MG Oral Tablet Therapy PackTAKE 6 TABLETS ON DAY 1 DIRECTED ON PACKAGE AND DECREASE BY 1 TAB EACH DAY FOR A TOTAL OF 6 DAYS Multi Vitamin Mens TABS Pioglitazone HCl - 30 MG Oral Tablet Psyllium Husk 100 % POWD Red Yeast Rice 600 MG Oral Capsule Selenium 200 MCG Oral Tablet Spironolactone 50 MG Oral Tabl (more content not included)... 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 Incision made around the exposed bone, dissection performed circumferentially to free the rib bone/cartilage from surrounding soft tissue. this was discarded. Closure of the palate and flap was performed with chromic gut in an interrupted mattress fashion. continue peridex BID rtc 1 month IH 5.15.23 Flap healed, now with some exposed bone IH 5.1.23 s/p serratus free flap for reconstruction of the palate doing well IH 4.17.12 Dr. Rodriguez performed maxilla debridement, has been on IV abx for osteomyelitis now planning for further debridement with reconstruction currently has left maxilla defect after extractions and debridment allens test with good ulnar flow bilaterally discussed free flap reconstruction after debridement completed by Dr. Rodriguez, likely serratus/scapula tip, neck exploration possible tracheostomy, pt already has g-tube for nutrition Chief Complaint: left vanessa-antral fistula Referring Provider: Dr. Key Jasso and Dr. Sutherland Location: left maxilla Quality: fistula, necrotic bone, swelling Severity: moderate Duration: 1.5 years Timing: all times Context: progressive disease of the left maxilla, denies history of smoking Modifying factors: none Associated signs and symptoms: left facial pain, left facial numbness, fistula of the maxillary sinus underwent previous septoplasty and ESS fistula appeared within the last 2 months no biopsies up to this point dental extraction of the left molar with dry socket now with progressive pain, bone exposure, non-healing wound, palate swelling referred for work up CT sinus wo contrast obtained outside, not available for review today Past, family, and social history obtained but not pertinent to current problem unless documented above. All other systems have been reviewed and are negative for complaint unless documented above. Physical Exam at initial visit General: Well-developed and well-nourished in appearance. Skin: No rashes or concerning lesions on the visible portions of the skin. Eyes: Extraocular movements intact. Visual randall grossly normal. Ears: Pinna are normal in shape and position. External canals are patent. Nose: Dorsum is midline Oral Cavity/Oropharynx: left posterior maxilla oroantral fistula, necrotic bone alone left maxilla buccal ridge, raised mucosa of the right hard palate Neck: Midline trachea without masses or lesions. Thyroid is normal in size. Lymphatics: No palpable cervical lymphadenopathy Respiratory: No respiratory distress. Quiet breathing without stertor or stridor. Cardiovascular: Regular rate and rhythm. Warm extremities with equal pulses. Psych: Normal mood and affect. Judgement and insight appropriate. Neuro: Alert and oriented. CN II-XII grossly intact. No focal deficits. 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 EXPECTORATE AFTER RINSING, DO NOT SWALLOW Cinnamon 500 MG Oral Tablet Clindamycin HCl - 150 MG Oral CapsuleTAKE 3 CAPSULES EVERY 6 HOURS. CONTINUE FOR 10 DAYS AND THEN STOP. Clotrimazole 10 MG Mouth/Throat TrocheDISSOLVE 1 TABLET BY MOUTH 5 TIMES PER DAY Coenzyme Q-10 100 MG Oral Capsule Doxycycline Hyclate 100 MG Oral CapsuleTake 1 capsule twice daily Fluconazole 200 MG Oral Tablet Fluticasone Propionate 50 MCG/ACT Nasal SuspensionUSE 2 SPRAYS IN EACH NOSTRIL ONCE DAILY Furosemide 20 MG Oral Tablet Glimepiride 4 MG Oral Tablet hydrALAZINE HCl - 50 MG Oral Tablet Jardiance 25 MG Oral Tablet Losartan Potassium 100 MG Oral Tablet Magnesium Oxide 400 MG Oral Tablet methylPREDNISolone 4 MG Oral Tablet Therapy PackTAKE 6 TABLETS ON DAY 1 DIRECTED ON PACKAGE AND DECREASE BY 1 TAB EACH DAY FOR A TOTAL OF 6 DAYS Multi Vitamin Mens TABS (more content not included)... Normal [facility] Height or Weight NOT Doneon 01-19-2023 Adult depression screening assessment No [facility] 4100 Work Phone: Fall risk assessment a) No falls within the last year [facility] 4100 Work Phone: Tobacco use status CPHS b) No [facility] 4100 Work Phone: C Reactive Protein, Serumon 01-13-2023 CRP [Mass/Vol] 0.42 mg/dL [facility] 4100 Work Phone: Comment on above: REF VALUE< 1.00 C-REACTIVE PROTEINon 05-30-2 023 C-REACTIVE PROTEIN 0.42 mg/dL Normal [facility] Comment on above: Result Comment: REF VALUE< 1.00 Performed By: #### C RP ####[address] [address] CBC AND DIFFERENTIALon 01-13 % AUTOMATED IMMATURE GRAN 0.7 % Normal 0.0 - 0.9 [facility] Comment on above: Result Comment: Sarah ture Granulocyte Count (IG) includes promyelocytes, myelocytes and metamyelocytes but does not include bands. Percent differential counts (%) should be interpreted in the context of the absolute cell counts (cells/L). Performed By: #### C BCDF ####[place] [id number] Basophils (Bld) [#/Vol] 0.05 10*3/uL Normal 0.00 - 0.10 [facility] Comment on above: Performed By: #### C BCDF ####[place] [id number] Basophils/100 WBC (Bld) 0.5 % Normal 0.0 - 2.0 [facility] Comment on above: Performed By: #### C BCDF ####[address] [address] Eosinophils (Bld) [#/Vol] 0.17 10*3/uL Normal 0.00 - 0.70 [facility] Comment on above: Performed By: #### C BCDF ####[address] [address] Eosinophils/100 WBC (Bld) 1.7 % Normal 0.0 - 6.0 [facility] Comment on above: Performed By: #### C BCDF ####[address] [address] Erythrocyte distribution width (RBC) [Ratio] 14.8 % High 11.5 - 14.5 [facility] Comment on above: Performed By: #### C BCDF ####[address] [address] Hematocrit (Bld) [Volume fraction] 42.2 % Normal 41.0 - 52.0 [facility] Comment on above: Performed By: #### C BCDF ####[address] [address] Hemoglobin (Bld) [Mass/Vol] 13.4 g/dL Low 13.5 - 17.5 [facility] Comment on above: Performed By: #### C BCDF ####[address] [address] Lymphocytes (Bld) [#/Vol] 1.64 10*3/uL Normal 1.20 - 4.80 [facility] Comment on above: Performed By: #### C BCDF ####[address] [address] Lymphocytes/100 WBC (Bld) 16.8 % Normal 13.0 - 44.0 [facility] Comment on above: Performed By: #### C BCDF ####[address] [address] MCHC (RBC) [Mass/Vol] 31.8 g/dL Low 32.0 - 36.0 [facility] Comment on above: Performed By: #### C BCDF ####[address] [address] MCV (RBC) [Entitic vol] 96 fL Normal 80 - 100 [facility] Comment on above: Performed By: #### C BCDF ####[address] [address] Monocytes (Bld) [#/Vol] 0.75 10*3/uL Normal 0.10 - 1.00 [facility] Comment on above: Performed By: #### C BCDF ####[address] [address] Monocytes/100 WBC (Bld) 7.7 % Normal 2.0 - 10.0 [facility] Comment on above: Performed By: #### C BCDF ####[address] [address] Neutrophils (Bld) [#/Vol] 7.09 10*3/uL Normal 1.20 - 7.70 [facility] Comment on above: Result Comment: Perc ent differential counts (%) should be interpreted in the context of the absolute cell counts (cells/L). Performed By: #### C BCDF ####[address] [address] Neutrophils/100 WBC (Bld) 72.6 % Normal 40.0 - 80.0 [facility] Comment on above: Performed By: #### C BCDF ####[address] [address] Platelets (Bld) [#/Vol] 367 10*3/uL Normal 150 - 450 [facility] Comment on above: Performed By: #### C BCDF ####[address] [address] RBC 4.42 x10E12/L Low 4.50 - 5.90 [facility] Comment on above: Performed By: #### C BCDF ####[address] [address] WBC (Bld) [#/Vol] 9.8 10*3/uL Normal 4.4 - 11.3 [facility] Comment on above: Performed By: #### C BCDF ####[address] [address] Complete Blood Count + Diffe cathiroqueon 01-13-2023 Basophils/100 WBC (Bld) 0.5 % 0.0 - 2.0 [facility] 4100 Work Phone: Erythrocyte distribution width (RBC) [Ratio] 14.8 % above high threshold See Below [facility] 4100 Work Phone: Comment on above: Reference Range: 11. 5 - 14.5 Hematocrit (Bld) [Volume fraction] 42.2 % See Below [facility] 4100 Work Phone: Comment on above: Reference Range: 41. 0 - 52.0 Hemoglobin (Bld) [Mass/Vol] 13.4 g/dL below low threshold See Below [place] [address] Work Phone: [phone] Comment on above: Reference Range: 13. 5 - 17.5 Lymphocytes/100 WBC (Bld) 16.8 % See Below MG-Otolaryn gology-[place] [address] Work Phone: [phone] Comment on above: Reference Range: 13. 0 - 44.0 MCHC (RBC) [Mass/Vol] 31.8 g/dL below low threshold See Below -[place]tol[place] [address] Work Phone: [phone] Comment on above: Reference Range: 32. 0 - 36.0 MCV (RBC) [Entitic vol] 96 fL 80 - 100 -[place] [address] Work Phone: [phone] Monocytes/100 WBC (Bld) 7.7 % 2.0 - 10.0 -[place] [address] Work Phone: [phone] Neutrophils/100 WBC (Bld) 72.6 % See Below -[place] [address] Work Phone: [phone] Comment on above: Reference Range: 40. 0 - 80.0 Platelets (Bld) [#/Vol] 367 10*3/uL 150 - 450 -[place]tol[place] [address] Work Phone: [phone] RBC (Bld) [#/Vol] 4.42 {x10E12/L} below low threshold See Below -[place] [address] Work Phone: [phone] Comment on above: Reference Range: 4.5 0 - 5.90 WBC (Bld) [#/Vol] 9.8 10*3/uL 4.4 - 11.3 [place] [address] Work Phone: [phone] Complete Blood Count + Differential 0.05 {x10E9/L} See Below [facility] 410 Work Phone: Comment on above: Reference Range: 0.0 0 - 0.10 Complete Blood Count + Differential 0.17 {x10E9/L} See Below [facility] 410 Work Phone: Comment on above: Reference Range: 0.0 0 - 0.70 Complete Blood Count + Differential 0.75 {x10E9/L} See Below [facility] 410 Work Phone: Comment on above: Reference Range: 0.1 0 - 1.00 Complete Blood Count + Differential 1.64 {x10E9/L} See Below [facility] 410 Work Phone: Comment on above: Reference Range: 1.2 0 - 4.80 Complete Blood Count + Differential 7.09 {x10E9/L} See Below [facility] 410 Work Phone: Comment on above: Reference Range: 1.2 0 - 7.70 Percent differential counts (%) should be interpreted in the context of the absolute cell counts (cells/L). Complete Blood Count + Differential 1.7 % 0.0 - 6.0 [place] [address] Work Phone: Complete Blood Count + Differential 0.7 % 0.0 - 0.9 [place] [address] Work Phone: Comment on above: Immature Granulocyte Count (IG) includes promyelocytes, myelocytes and metamyelocytes but does not include bands. Percent differential counts (%) should be interpreted in the context of the absolute cell counts (cells/L). Laboratory - Coagulationon 0 - INR Coag (PPP) [Relative time] 8.2 {INR} Critically abnormal 0.9 - 1.1 [facility] 4[facility] Work Phone: Comment on above: PT, PTINR CALLED RB TO SHARIDA , 01/13/2023 15:33 PT Coag (PPP) [Time] 97.0 s Critically abnormal 9.8 - 13.4 [facility]tolaryn [facility] 4100 Work Phone: Comment on above: PT, PTINR CALLED RB TO SHARIDA , 01/13/2023 15:33 PT/INRon 01-13-2023 PT Coag (PPP) [Time] 97.0 s Critically abnormal 9.8 - 13.4 [facility] Comment on above: Order Comment: PT, P TINR CALLED RB TO SHARIDA , 01/13/2023 15:33 Result Comment: PT, PTINR CALLED RB TO SHARIDA , 01/13/2023 15:33 Performed By: #### P TINR ####[place] [address] PT, INR 8.2 Critically abnormal 0.9 - 1.1 [facility] Comment on above: Order Comment: PT, P TINR CALLED RB TO SHARIDA , 01/13/2023 15:33 Result Comment: PT, PTINR CALLED RB TO SHARIDA , 01/13/2023 15:33 Performed By: #### P TINR ####[place] [address] RENAL FUNCTION PANELon 01-13 Albumin [Mass/Vol] 3.9 g/dL Normal 3.4 - 5.0 [facility] Comment on above: Performed By: #### R ENAL ####[address] [address] Anion gap [Moles/Vol] 16 mmol/L Normal 10 - 20 [facility] Comment on above: Performed By: #### R ENAL ####[place] [address] Calcium [Mass/Vol] 9.8 mg/dL Normal 8.6 - 10.3 [facility] Comment on above: Performed By: #### R ENAL ####[address] [address] Chloride [Moles/Vol] 100 mmol/L Normal 98 - 107 [facility] Comment on above: Performed By: #### R ENAL ####[address] [address] Creatinine [Mass/Vol] 1.50 mg/dL High 0.50 - 1.30 [facility] Comment on above: Performed By: #### R ENAL ####[address] [address] GFR/1.73 sq M.predicted among non-blacks MDRD (S/P/Bld) [Vol rate/Area] 50 mL/min/{1.73_m2} Abnormal >90 [facility] Comment on above: Result Comment: CALC ULATIONS OF ESTIMATED GFR ARE PERFORMED USING THE 2020 CKD-EPI STUDY REFIT EQUATION WITHOUT THE RACE VARIABLE FOR THE IDMS-TRACEABLE CREATININE METHODS.https://jasn.asnjournals.org/content/early//A SN.3079543952 Performed By: #### R ENAL ####[address] [address] Glucose [Mass/Vol] 183 mg/dL High 74 - 99 [facility] Comment on above: Performed By: #### R ENAL ####[address] [address] HCO3 (Bld) [Moles/Vol] 22 mmol/L Normal 21 - 32 [facility] Comment on above: Performed By: #### R ENAL ####[address] [address] Phosphate [Mass/Vol] 3.3 mg/dL Normal 2.5 - 4.9 [facility] Comment on above: Result Comment: The performance characteristics of phosphorus testing in heparinized plasma have been validated by the individual laboratory site where testing is performed. Testing on heparinized plasma is not approved by the FDA; however, such approval is not necessary. Performed By: #### R ENAL ####[address] [place] [address] Potassium [Moles/Vol] 4.2 mmol/L Normal 3.5 - 5.3 [facility] Comment on above: Performed By: #### R ENAL ####[address] [address] Sodium [Moles/Vol] 134 mmol/L Low 136 - 145 [facility] Comment on above: Performed By: #### R ENAL ####[place] [id number] Urea nitrogen [Mass/Vol] 36 mg/dL High 6 - 23 [facility] Comment on above: Performed By: #### R ENAL ####[place] [address] Renal Function Panelon 01-13 Albumin BCP dye [Mass/Vol] 3.9 g/dL 3.4 - 5.0 MG-Otolaryn gology-[place] [address] Work Phone: [phone] Anion gap [Moles/Vol] 16 mmol/L 10 - 20 MG- Otolaryn gology-[facility] 4100 Work Phone: [phone] Calcium [Mass/Vol] 9.8 mg/dL 8.6 - 10.3 MG-Mao laryn gology-[place] [address]3440 Work Phone: [phone] Chloride [Moles/Vol] 100 mmol/L 98 - 107 MG-O tolaryn gology-[facility] 4100 Work Phone: [phone] CO2 [Moles/Vol] 22 mmol/L 21 - 32 MG-Otolar yn gology-[facility] 4100 Work Phone: [phone] Creatinine [Mass/Vol] 1.50 mg/dL above high threshold See Below MG-Otolaryn gology-[place] [address]40 Work Phone: [phone] Comment on above: Reference Range: 0.5 0 - 1.30 Glucose [Mass/Vol] 183 mg/dL above high threshold 74 - 99 MG-Otolaryn gology-[facility] 4100 Work Phone: Phosphate [Mass/Vol] 3.3 mg/dL 2.5 - 4.9 MG-O tolaryn [facility] 4100 Work Phone: Comment on above: The performance violet acteristics of phosphorus testing in heparinized plasma have been validated by the individual laboratory site where testing is performed. Testing on heparinized plasma is not approved by the FDA; however, such approval is not necessary. Potassium [Moles/Vol] 4.2 mmol/L 3.5 - 5.3 [facility]- [facility]aryn [facility] 4100 Work Phone: Sodium [Moles/Vol] 134 mmol/L below low threshold 136 - 145 MGOtbunnlevelyn [facility]ery[facility] 4100 Work Phone: Urea nitrogen [Mass/Vol] 36 mg/dL above high threshold 6 - 23 MGOtolaryn [facility] 4100 Work Phone: Renal Function Panel 50 {mL/min/1.73m2} Abnormal >90 MGOtolaryn [facility] medical centeryJames [place] [id number] Work Phone: Comment on above: CALCULATIONS OF REYNALDO MATED GFR ARE PERFORMED USING THE 2020 CKD-EPI STUDY REFIT EQUATION WITHOUT THE RACE VARIABLE FOR THE IDMS-TRACEABLE CREATININE METHODS.https://jasn.asnjournals.org/content/early/A SN.2689278885 C Reactive Protein, Serumon 01-06-2023 CRP [Mass/Vol] 0.63 mg/dL MG-Otolary n [facility] 4100 Work Phone: Comment on above: REF VALUE< 1.00 C-REACTIVE PROTEINon 023 C-REACTIVE PROTEIN 0.63 mg/dL Normal [facility] Comment on above: Order Comment: [facility] CARE TEAM 6 Result Comment: REF VALUE< 1.00 Performed By: #### C RP ####[address] [address] CBC AND DIFFERENTIALon 01-06 % AUTOMATED IMMATURE GRAN 1.1 % High 0.0 - 0.9 [facility] Comment on above: Order Comment: HO ME CARE TEAM 6 Result Comment: Sarah ture Granulocyte Count (IG) includes promyelocytes, myelocytes and metamyelocytes but does not include bands. Percent differential counts (%) should be interpreted in the context of the absolute cell counts (cells/L). Performed By: #### C BCDF ####[address] [address] Basophils (Bld) [#/Vol] 0.03 10*3/uL Normal 0.00 - 0.10 [facility] Comment on above: Order Comment: HO ME CARE TEAM 6 Performed By: #### C BCDF ####[address] [address] Basophils/100 WBC (Bld) 0.3 % Normal 0.0 - 2.0 [facility] Comment on above: Order Comment: HO ME CARE TEAM 6 Performed By: #### C BCDF ####[address] [address] Eosinophils (Bld) [#/Vol] 0.19 10*3/uL Normal 0.00 - 0.70 [facility] Comment on above: Order Comment: HO ME CARE TEAM 6 Performed By: #### C BCDF ####[address] [address] Eosinophils/100 WBC (Bld) 2.1 % Normal 0.0 - 6.0 [facility] Comment on above: Order Comment: HO ME CARE TEAM 6 Performed By: #### C BCDF ####[address] [address] Erythrocyte distribution width (RBC) [Ratio] 15.1 % High 11.5 - 14.5 [facility] Comment on above: Order Comment: HO ME CARE TEAM 6 Performed By: #### C BCDF ####[address] [address] Hematocrit (Bld) [Volume fraction] 45.8 % Normal 41.0 - 52.0 [facility] Comment on above: Order Comment: [facility] HO ME CARE TEAM 6 Performed By: #### C BCDF ####[address] [address] Hemoglobin (Bld) [Mass/Vol] 14.2 g/dL Normal 13.5 - 17.5 [facility] Comment on above: Order Comment: [facility] HO ME CARE TEAM 6 Performed By: #### C BCDF ####[address] [address] Lymphocytes (Bld) [#/Vol] 1.41 10*3/uL Normal 1.20 - 4.80 [facility] Comment on above: Order Comment: [facility] HO ME CARE TEAM 6 Performed By: #### C BCDF ####[address] [address] Lymphocytes/100 WBC (Bld) 15.7 % Normal 13.0 - 44.0 [facility] Comment on above: Order Comment: [facility] HO ME CARE TEAM 6 Performed By: #### C BCDF ####[address] [address] MCHC (RBC) [Mass/Vol] 31.0 g/dL Low 32.0 - 36.0 [facility] Comment on above: Order Comment: [facility] HO ME CARE TEAM 6 Performed By: #### C BCDF ####[address] [address] MCV (RBC) [Entitic vol] 98 fL Normal 80 - 100 [facility] Comment on above: Order Comment: [facility] HO ME CARE TEAM 6 Performed By: #### C BCDF ####[address] [address] Monocytes (Bld) [#/Vol] 0.74 10*3/uL Normal 0.10 - 1.00 [facility] Comment on above: Order Comment: [facility] HO ME CARE TEAM 6 Performed By: #### C BCDF ####[address] [address] Monocytes/100 WBC (Bld) 8.2 % Normal 2.0 - 10.0 [facility] Comment on above: Order Comment: HO ME CARE TEAM 6 Performed By: #### C BCDF ####[address] [address] Neutrophils (Bld) [#/Vol] 6.50 10*3/uL Normal 1.20 - 7.70 [facility] Comment on above: Order Comment: HO ME CARE TEAM 6 Result Comment: Perc ent differential counts (%) should be interpreted in the context of the absolute cell counts (cells/L). Performed By: #### C BCDF ####[address] [address] Neutrophils/100 WBC (Bld) 72.6 % Normal 40.0 - 80.0 [facility] Comment on above: Order Comment: HO ME CARE TEAM 6 Performed By: #### C BCDF ####[address] [address] Platelets (Bld) [#/Vol] 373 10*3/uL Normal 150 - 450 [facility] Comment on above: Order Comment: HO ME CARE TEAM 6 Performed By: #### C BCDF ####[address] [address] RBC 4.67 x10E12/L Normal 4.50 - 5.90 [facility] Comment on above: Order Comment: HO ME CARE TEAM 6 Performed By: #### C BCDF ####[address] [address] WBC (Bld) [#/Vol] 9.0 10*3/uL Normal 4.4 - 11.3 [facility] Comment on above: Order Comment: HO ME CARE TEAM 6 Performed By: #### C BCDF ####[address] [address] Complete Blood Count + Diffe yulisa 01-06-2023 Basophils/100 WBC (Bld) 0.3 % 0.0 - 2.0 -Otolaryn [facility]ologyAltru Health Systems 7350 Work Phone: Erythrocyte distribution width (RBC) [Ratio] 15.1 % above high threshold See Below [facility] [place] [address] Work Phone: [phone] Comment on above: Reference Range: 11. 5 - 14.5 Hematocrit (Bld) [Volume fraction] 45.8 % See Below [place] [address] Work Phone: [phone] Comment on above: Reference Range: 41. 0 - 52.0 Hemoglobin (Bld) [Mass/Vol] 14.2 g/dL See Below [place] [address] Work Phone: [phone] Comment on above: Reference Range: 13. 5 - 17.5 Lymphocytes/100 WBC (Bld) 15.7 % See Below [place] [address] Work Phone: [phone] Comment on above: Reference Range: 13. 0 - 44.0 MCHC (RBC) [Mass/Vol] 31.0 g/dL below low threshold See Below [place] [address] Work Phone: [phone] Comment on above: Reference Range: 32. 0 - 36.0 MCV (RBC) [Entitic vol] 98 fL 80 - 100 [place] [address] Work Phone: [phone] Monocytes/100 WBC (Bld) 8.2 % 2.0 - 10.0 [place] [address] Work Phone: [phone] Neutrophils/100 WBC (Bld) 72.6 % See Below [place] [address] Work Phone: [phone] Comment on above: Reference Range: 40. 0 - 80.0 Platelets (Bld) [#/Vol] 373 10*3/uL 150 - 450 [place] [address] Work Phone: [phone] RBC (Bld) [#/Vol] 4.67 {x10E12/L} See Below [facility] GUYMONOtolaryn gologyJim Ville [address] Work Phone: Comment on above: Reference Range: 4.5 0 - 5.90 WBC (Bld) [#/Vol] 9.0 10*3/uL 4.4 - 11.3 -Mao larlisbet [facility] westogyJim [place] [address] Work Phone: Complete Blood Count + Differential 0.03 {x10E9/L} See Below [facility] SHATTUCKOtolaryn [facility] westogyJim [place] [address] Work Phone: Comment on above: Reference Range: 0.0 0 - 0.10 Complete Blood Count + Differential 0.19 {x10E9/L} See Below [facility] SHATTUCKOtolaryn [facility] westogyJim [place] [address] Work Phone: Comment on above: Reference Range: 0.0 0 - 0.70 Complete Blood Count + Differential 0.74 {x10E9/L} See Below [facility]UCKOtolaryn gologyJim [place] [address] Work Phone: Comment on above: Reference Range: 0.1 0 - 1.00 Complete Blood Count + Differential 1.41 {x10E9/L} See Below [facility]UCKOtolaryn gologyJim [place] [address] Work Phone: Comment on above: Reference Range: 1.2 0 - 4.80 Complete Blood Count + Differential 6.50 {x10E9/L} See Below [facility]UCKOtolaryn gologyJim [place] [address] Work Phone: Comment on above: Reference Range: 1.2 0 - 7.70 Percent differential counts (%) should be interpreted in the context of the absolute cell counts (cells/L). Complete Blood Count + Differential 2.1 % 0.0 - 6.0 [facility] SHATTUCKOtbunnlevelyn [facility] westogyJim [place] [address] Work Phone: Complete Blood Count + Differential 1.1 % above high threshold 0.0 - 0.9 MG-Otolaryn gology-[facility] 4100 Work Phone: Comment on above: Immature Granulocyte Count (IG) includes promyelocytes, myelocytes and metamyelocytes but does not include bands. Percent differential counts (%) should be interpreted in the context of the absolute cell counts (cells/L). RENAL FUNCTION PANELon 01-06 Albumin [Mass/Vol] 4.4 g/dL Normal 3.4 - 5.0 [facility] Comment on above: Order Comment: [facility] ME CARE TEAM 6 Performed By: #### R ENAL ####[address] [address] Anion gap [Moles/Vol] 19 mmol/L Normal 10 - 20 [facility] Comment on above: Order Comment: [facility] ME CARE TEAM 6 Performed By: #### R ENAL ####[address] [address] Calcium [Mass/Vol] 10.2 mg/dL Normal 8.6 - 10.3 [facility] Comment on above: Order Comment: [facility] ME CARE TEAM 6 Performed By: #### R ENAL ####[address] [address] Chloride [Moles/Vol] 98 mmol/L Normal 98 - 107 [facility] Comment on above: Order Comment: [facility] ME CARE TEAM 6 Performed By: #### R ENAL ####[address] [address] Creatinine [Mass/Vol] 1.80 mg/dL High 0.50 - 1.30 [facility] Comment on above: Order Comment: [facility] ME CARE TEAM 6 Performed By: #### R ENAL ####[address] [address] GFR/1.73 sq M.predicted among non-blacks MDRD (S/P/Bld) [Vol rate/Area] 40 mL/min/{1.73_m2} Abnormal >90 [facility] Comment on above: Order Comment: [facility] HO ME CARE TEAM 6 Result Comment: CALC ULATIONS OF ESTIMATED GFR ARE PERFORMED USING THE 2020 CKD-EPI STUDY REFIT EQUATION WITHOUT THE RACE VARIABLE FOR THE IDMS-TRACEABLE CREATININE METHODS.https://jasn.asnjournals.org/content//A SN.3181165215 Performed By: #### R ENAL ####[address] [address] Glucose [Mass/Vol] 249 mg/dL High 74 - 99 [facility] Comment on above: Order Comment: [facility] CARE TEAM 6 Performed By: #### R ENAL ####[address] [address] HCO3 (Bld) [Moles/Vol] 24 mmol/L Normal 21 - 32 [facility] Comment on above: Order Comment: [facility] CARE TEAM 6 Performed By: #### R ENAL ####[address] [address] Phosphate [Mass/Vol] 3.6 mg/dL Normal 2.5 - 4.9 [facility] Comment on above: Order Comment: [facility] CARE TEAM 6 Result Comment: The performance characteristics of phosphorus testing in heparinized plasma have been validated by the individual laboratory site where testing is performed. Testing on heparinized plasma is not approved by the FDA; however, such approval is not necessary. Performed By: #### R ENAL ####[address] [address] Potassium [Moles/Vol] 3.8 mmol/L Normal 3.5 - 5.3 [facility] Comment on above: Order Comment: [facility] CARE TEAM 6 Performed By: #### R ENAL ####[address] [address] Sodium [Moles/Vol] 137 mmol/L Normal 136 - 145 [facility] Comment on above: Order Comment: [facility] CARE TEAM 6 Performed By: #### R ENAL ####[address] [address] Urea nitrogen [Mass/Vol] 60 mg/dL High 6 - 23 [facility] Comment on above: Order Comment: [facility] CARE TEAM 6 Performed By: #### R ENAL ####[place] [id number] [place] [address] Renal Function Panelon 01-06 Albumin BCP dye [Mass/Vol] 4.4 g/dL 3.4 - 5.0 MG-Otolaryn gology-[facility] 4100 Work Phone: [phone] Anion gap [Moles/Vol] 19 mmol/L 10 - 20 MG- Otolaryn gology-[facility] 4100 Work Phone: [phone] Calcium [Mass/Vol] 10.2 mg/dL 8.6 - 10.3 MG-Mao laryn gology-[facility] 4100 Work Phone: [phone] Chloride [Moles/Vol] 98 mmol/L 98 - 107 MG-O tolaryn gology-[facility] 4100 Work Phone: [phone] CO2 [Moles/Vol] 24 mmol/L 21 - 32 MG-Otolar yn gology-[facility] 4100 Work Phone: [phone] Creatinine [Mass/Vol] 1.80 mg/dL above high threshold See Below MG-Otolaryn [facility] 4100 Work Phone: [phone] Comment on above: Reference Range: 0.5 0 - 1.30 Glucose [Mass/Vol] 249 mg/dL above high threshold 74 - 99 MG-Otolaryn gology-[facility] 4100 Work Phone: [phone] Phosphate [Mass/Vol] 3.6 mg/dL 2.5 - 4.9 MG-O tolaryn gology-[facility] 4100 Work Phone: [phone] Comment on above: The performance violet acteristics of phosphorus testing in heparinized plasma have been validated by the individual laboratory site where testing is performed. Testing on heparinized plasma is not approved by the FDA; however, such approval is not necessary. Potassium [Moles/Vol] 3.8 mmol/L 3.5 - 5.3 MG- Otolaryn gology-[facility] 4100 Work Phone: Sodium [Moles/Vol] 137 mmol/L 136 - 145 MG-Mao laryn [facility] [place] 4100 Work Phone: Urea nitrogen [Mass/Vol] 60 mg/dL above high threshold 6 - 23 [facility]tolaryn [facility] 4100 Work Phone: Renal Function Panel 40 {mL/min/1.73m2} Abnormal >90 MG-Otolaryn [facility] [place] 4100 Work Phone: Comment on above: CALCULATIONS OF REYNALDO MATED GFR ARE PERFORMED USING THE 2020 CKD-EPI STUDY REFIT EQUATION WITHOUT THE RACE VARIABLE FOR THE IDMS-TRACEABLE CREATININE METHODS.https://jasn.asnjournals.org/content/early//A SN.6134726142 Established Visit (Otolaryng ology)on 01-05-2023 Established Visit (Otolaryngology) Diagnoses/Problems 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 Rodriguez performed maxilla debridement, has been on IV abx for osteomyelitis now planning for further debridement with reconstruction currently has left maxilla defect after extractions and debridment allens test with good ulnar flow bilaterally discussed free flap reconstruction after debridement completed by Dr. Rodriguez, likely serratus/scapula tip, neck exploration possible tracheostomy, pt already has g-tube for nutrition Chief Complaint: left vanessa-antral fistula Referring Provider: Dr. Key Jasso and Dr. Sutherland Location: left maxilla Quality: fistula, necrotic bone, swelling Severity: moderate Duration: 1.5 years Timing: all times Context: progressive disease of the left maxilla, denies history of smoking Modifying factors: none Associated signs and symptoms: left facial pain, left facial numbness, fistula of the maxillary sinus underwent previous septoplasty and ESS fistula appeared within the last 2 months no biopsies up to this point dental extraction of the left molar with dry socket now with progressive pain, bone exposure, non-healing wound, palate swelling referred for work up CT sinus wo contrast obtained outside, not available for review today Past, family, and social history obtained but not pertinent to current problem unless documented above. All other systems have been reviewed and are negative for complaint unless documented above. Physical Exam at initial visit General: Well-developed and well-nourished in appearance. Skin: No rashes or concerning lesions on the visible portions of the skin. Eyes: Extraocular movements intact. Visual randall grossly normal. Ears: Pinna are normal in shape and position. External canals are patent. Nose: Dorsum is midline Oral Cavity/Oropharynx: left posterior maxilla oroantral fistula, necrotic bone alone left maxilla buccal ridge, raised mucosa of the right hard palate Neck: Midline trachea without masses or lesions. Thyroid is normal in size. Lymphatics: No palpable cervical lymphadenopathy Respiratory: No respiratory distress. Quiet breathing without stertor or stridor. Cardiovascular: Regular rate and rhythm. Warm extremities with equal pulses. Psych: Normal mood and affect. Judgement and insight appropriate. Neuro: Alert and oriented. CN II-XII grossly intact. No focal deficits. 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 EXPECTORATE AFTER RINSING, DO NOT SWALLOW Cinnamon 500 MG Oral Tablet Clindamycin HCl - 150 MG Oral CapsuleTAKE 3 CAPSULES EVERY 6 HOURS. CONTINUE FOR 10 DAYS AND THEN STOP. Clotrimazole 10 MG Mouth/Throat TrocheDISSOLVE 1 TABLET BY MOUTH 5 TIMES PER DAY Coenzyme Q-10 100 MG Oral Capsule Doxycycline Hyclate 100 MG Oral CapsuleTake 1 capsule twice daily Fluconazole 200 MG Oral Tablet Fluticasone Propionate 50 MCG/ACT Nasal SuspensionUSE 2 SPRAYS IN EACH NOSTRIL ONCE DAILY Furosemide 20 MG Oral Tablet Glimepiride 4 MG Oral Tablet hydrALAZINE HCl - 50 MG Oral Tablet Jardiance 25 MG Oral Tablet Losartan Potassium 100 MG Oral Tablet Magnesium Oxide 400 MG Oral Tablet methylPREDNISolone 4 MG Oral Tablet Therapy PackTAKE 6 TABLETS ON DAY 1 DIRECTED ON PACKAGE AND DECREASE BY 1 TAB EACH DAY FOR A TOTAL OF 6 DAYS Multi Vitamin Mens TABS Pioglitazone HCl - 30 MG Oral Tablet Psyllium Husk 100 % POWD Red Yeast Rice 600 MG Oral Capsule Selenium 200 MCG Oral Tablet Spironolactone 50 MG Oral Tablet Vitamin C 1000 MG Oral Tablet Vitamin D 1000 UNIT TABS Warfarin Sodium 1 MG Oral Tablet Warfarin Sodium 5 MG Oral Tablet Zinc TABS 'Scores and Scales' Signatures (more content not included)... Normal Touchworks Established Visit (Otolaryngology) Provider Impressions 72 yo man with a destructive process involving much of the left maxilla CT - mottled appearance throughout the maxilla involving nearly all of the premaxilla bl, and posteriorly into the ptyergoid plates biopsy - neg for malignancy cultures - mixed infection, beta-lactamase+ with dania s/p recon with serratus/rib free flap -healing well, has appointment with Dr. Amador later today, defer PO status to him -RTC in 2 months Chief Complaint follow up History of Present Zuzbsav16 yo man who presents for evaluation of pain and swelling in the jaw. He start noticing problems with swelling almost 2 years ago, but more recently has had leakage of food/water from his nose. He had a tooth extracted which didn't help. Had CT scans done. Saw dr. Amador and was referred to me. non smoker. on coumadin for blood clot in the leg. no history of cad. 11-25-22 post-op: doing well after debridement, PEG; tolerating PO with some nasal reflux, no pain; tolerating ABX 12-23-22 FU: had some drainage yesterday from the neck, no increased swelling/redness/pain; tolerating PO intake 01-05-23 FU: s/p debridement of bone, mucosal flap with dr. amador last week. 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 EXPECTORATE AFTER RINSING, DO NOT SWALLOW Cinnamon 500 MG Oral Tablet Clindamycin HCl - 150 MG Oral CapsuleTAKE 3 CAPSULES EVERY 6 HOURS. CONTINUE FOR 10 DAYS AND THEN STOP. Clotrimazole 10 MG Mouth/Throat TrocheDISSOLVE 1 TABLET BY MOUTH 5 TIMES PER DAY Coenzyme Q-10 100 MG Oral Capsule Doxycycline Hyclate 100 MG Oral CapsuleTake 1 capsule twice daily Fluconazole 200 MG Oral Tablet Fluticasone Propionate 50 MCG/ACT Nasal SuspensionUSE 2 SPRAYS IN EACH NOSTRIL ONCE DAILY Furosemide 20 MG Oral Tablet Glimepiride 4 MG Oral Tablet hydrALAZINE HCl - 50 MG Oral Tablet Jardiance 25 MG Oral Tablet Losartan Potassium 100 MG Oral Tablet Magnesium Oxide 400 MG Oral Tablet methylPREDNISolone 4 MG Oral Tablet Therapy PackTAKE 6 TABLETS ON DAY 1 DIRECTED ON PACKAGE AND DECREASE BY 1 TAB EACH DAY FOR A TOTAL OF 6 DAYS Multi Vitamin Mens TABS Pioglitazone HCl - 30 MG Oral Tablet Psyllium Husk 100 % POWD Red Yeast Rice 600 MG Oral Capsule Selenium 200 MCG Oral Tablet Spironolactone 50 MG Oral Tablet Vitamin C 1000 MG Oral Tablet Vitamin D 1000 UNIT TABS Warfarin Sodium 1 MG Oral Tablet Warfarin Sodium 5 MG Oral Tablet Zinc TABS Vitals Vital Signs Recorded: 05Jan2023 09:40AM [id number] F Height6 ft 1 in [place]418 lb 9.6 oz BMI Ncrorwcseu54.46 kg/m2 BSA Calculated2.38 Tobacco Useb) No PHQ-2 #1. Over the last 2 weeks have you felt down, depressed or hopeless? (If yes, answer PHQ-9 below)No PHQ-2 #2. Over the last 2 weeks have you felt little interest or pleasure in doing things? (If yes, answer PHQ-9 below)No Falls Screening (Age 18+)a) No falls within the last year Physical Exam nad alert cayden eomi NCAT nasal cavity clear ocop - well healed muscle flap, there is a small fibrinous area with a small palpable area of bone neck healing well, no drainage or infection 'Scores and Scales' Signatures Electronically signed by : Natividad Rodriguez MD; Jan 05 2023 9:55AM EST (Author) Normal Touchworks Tobacco Screening.on 023 Adult depression screening assessment No [facility] 0234 Work Phone: Fall risk assessment a) No falls within the last year [facility] [place] 4100 Work Phone: Tobacco use status [facility] b) No [facility] 4104 Work Phone: ID - Hospital Follow Upon ID - Hospital Follow Up Chief Complaint Patient presents here today for a hospital follow up visit. History of Present IllnessPrior to seeing the patient we reviewed all records going back to October including notes imaging path reports labs First outpatient follow-up for gentleman who we have seen in the hospital and diagnosed with chronic actinomycoses cervical facial infection. Patient states that he started having tooth problems in 2018 and things seem to get worse when he had COVID in 2020. He eventually presented with osteomyelitis and fistula between his sinuses and mouth and saw a number of outside providers and finally was referred to [facility]-- in October underwent surgery and debridement with the path not showing any malignancy but with organisms consistent with actinomycoses. In October he was treated with fluconazole and ampicillin-sulbactam was readmitted in November when we saw him in hospital. At that time we recommended continued ampicillin-sulbactam with a plan to switch to chronic oral therapy for actinomycoses. His ampicillin-sulbactam was stopped a bit early as he developed some mild acute kidney injury which we thought was likely to be a drug reaction. We started the doxycycline on December 19; except for some mild sunburn he is doing well with doxycycline. He feels better and feels like his mouth and face is doing better. No fevers chills nausea vomiting diarrhea. 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) Pain of tooth on palpation (525.9) (K08.89) Personal history of COVID-19 (V12.09) (Z86.16) Preoperative clearance (V72.84) (Z01.818) Sinus pain (478.19) (J34.89) Type [address] elevation (410.70) (I21.A1) Allergies No Known Allergies Recorded By: Zulema Sequeira; 10/30/2022 9:06:50 AM Current Meds Fluticasone Propionate 50 MCG/ACT Nasal Suspension; USE 2 SPRAYS IN EACH NOSTRIL ONCE DAILY; Therapy: [id number] to (Last Rx:25Nov2022) Requested for: 25Nov2022 Ordered Rx By: Natividad Rodriguez; Dispense: 0 Days ; #:1 X 15.8 ML Bottle; Refill: 12; For: Chronic sinusitis; KIA = N; Verified Transmission to [facility]ACY #[id number] Clindamycin HCl - 150 MG Oral Capsule; TAKE 3 CAPSULES EVERY 6 HOURS. 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; Verified Transmission to [facility]ARMACY #[id number] Doxycycline Hyclate 100 MG Oral Capsule; Take 1 capsule twice daily; Therapy: 19Dec2022 to (Evaluate:[id number]) Requested for: 19Dec2022; Last Rx:19Dec2022 Ordered Rx By: Sadia Dickson; Dispense: 60 Days ; #:120 Capsule; Refill: 5; For: Osteomyelitis of maxilla; KIA = N; Verified Transmission to [facility]ACY #[id number]; Last Updated By: Pb Doyle; 01/02/2023 10:12:41 AM Chlorhexidine Gluconate 0.12 % Mouth/Throat Solution; RINSE MOUTH WITH 15ML (1 CAPFUL) FOR 30 SECONDS AM AND PM AFTER TOOTHBRUSHING. EXPECTORATE AFTER RINSING, DO NOT SWALLOW; Therapy: 12Nov2022 to (Evaluate:[id number]); Last Rx:12Nov2022 Ordered Rx By: Leslee Hearn; Dispense: 16 Days ; #:473 Milliliter; Refill: 0; For: Sinus pain; KIA = N; Print Rx Atenolol 50 MG Oral Tablet; Therapy: (Recorded:30Oct2022) to Recorded Dispense: 0 Days ; #: Sufficient; Refill: 0; KIA = N; Record; Last Updated By: Zulema Sequeira; 10/30/2022 9:06:50 AM Cinnamon 500 MG Oral Tablet; Therapy: (Recorded:30Oct2022) to Recorded Dispense: 0 Days ; #: Sufficient; Refill: 0; KIA = N; Record; Last Updated By: Zulema Sequeira; 10/30/2022 9:06:50 AM Clotrimazole 10 MG Mouth/Throat Santino; DISSOLVE 1 TABLET BY MOUTH 5 TIMES PER DAY; Therapy: 09May2022 to Recorded Rx By: TRINO; Dispense: 10 Days ; #:50; Refill: 0; KIA = N; Record; Last Updated By: Merlyn Guevara; 11/25/2022 3:29:57 PM Coenzyme Q-10 100 MG Oral Capsule; Therapy: (Recorded:30Oct2022) to Recorded Dispense: 0 Days ; #: Sufficient; Refill: 0; KIA = N; Record; Last Updated By: Zulema Sequeira; 10/30/2022 9:06:50 AM Fluconazole 200 MG Oral Tablet; Therapy: 17Nov2022 to Recorded Dispense: 30 Days ; #:60; Refill: 0; KIA = N; Record; Last Updated By: Merlyn Guevara; 11/25/2022 3:29:57 PM Furosemide 20 MG Oral Tablet; Therapy: (Recorded:30Oct2022) to Recorded Dispense: 0 Days ; #: Sufficient; Refill: 0; KIA = N; Record; Last Updated By: Zulema Sequeira; 10/30/2022 9:06:50 AM Glimepiride 4 MG Oral Tablet; Therapy: (Recorded:30Oct2022) to Recorded Dispense: 0 Days ; #: Sufficient; Refill: 0; KIA = N; Record; Last Updated By: Zulema Sequeira; 10/30/2022 9:06:50 AM hydrALAZINE HCl - 50 MG Oral Tablet; Therapy: (Recorded:30Oct2022) to Recorded Dispense: 0 Days (more content not included)... Normal dooub GLUCOSE-[facility] 12-31-2022 Glucose [Mass/Vol] 143 mg/dL High 74 - 99 [facility] Comment on above: Performed By: #### G SUSAN ####[id number] [place] [address] Glucose [Mass/Vol] 180 mg/dL High 74 - 99 [facility] Comment on above: Performed By: #### G SUSAN ####[id number] [place] [address] Glucose Test strip manual (B ld) [Mass/Vol]on 12-31-2022 Glucose [Mass/Vol] 143 mg/dL High 74 - 99 mg/dL [facility] Interpretation and review of laboratory results Abnormal [facility] Glucose [Mass/Vol] 180 mg/dL High 74 - 99 mg/dL [facility] Interpretation and review of laboratory results Abnormal [facility] Laboratory - Chemistry and C hemistry - challengeon 12-31-2022 Glucose [Mass/Vol] 143 mg/dL above high threshold 74 - 99 MG-Otolaryn gology-[facility] 4[address] Work Phone: Glucose [Mass/Vol] 180 mg/dL above high threshold 74 - 99 [facility] [address] Work Phone: Order Reconciliationon 12-31 Order Reconciliation Normal [facility] Established Visit (Otolaryng ology)on 12-29-2022 Established Visit (Otolaryngology) Diagnoses/Problems Exposed mandibular bone (733.90) (R29.898) Chief Complaint FUV History of Present IllnessIH 5.15. Flap healed, now with some exposed bone IH 5..23 s/p serratus free flap for reconstruction of the palate doing well incisions intact, flap viable exposed bone palate reconstruction intact plan for bone debridement IH 4.17.12 Dr. Rodriguez performed maxilla debridement, has been on IV abx for osteomyelitis now planning for further debridement with reconstruction currently has left maxilla defect after extractions and debridment allens test with good ulnar flow bilaterally discussed free flap reconstruction after debridement completed by Dr. Li, likely serratus/scapula tip, neck exploration possible tracheostomy, pt already has g-tube for nutrition Chief Complaint: left vanessa-antral fistula Referring Provider: Dr. Key Jasso and Dr. Sutherland Location: left maxilla Quality: fistula, necrotic bone, swelling Severity: moderate Duration: 1.5 years Timing: all times Context: progressive disease of the left maxilla, denies history of smoking Modifying factors: none Associated signs and symptoms: left facial pain, left facial numbness, fistula of the maxillary sinus underwent previous septoplasty and ESS fistula appeared within the last 2 months no biopsies up to this point dental extraction of the left molar with dry socket now with progressive pain, bone exposure, non-healing wound, palate swelling referred for work up CT sinus wo contrast obtained outside, not available for review today Past, family, and social history obtained but not pertinent to current problem unless documented above. All other systems have been reviewed and are negative for complaint unless documented above. Physical Exam at initial visit General: Well-developed and well-nourished in appearance. Skin: No rashes or concerning lesions on the visible portions of the skin. Eyes: Extraocular movements intact. Visual randall grossly normal. Ears: Pinna are normal in shape and position. External canals are patent. Nose: Dorsum is midline Oral Cavity/Oropharynx: left posterior maxilla oroantral fistula, necrotic bone alone left maxilla buccal ridge, raised mucosa of the right hard palate Neck: Midline trachea without masses or lesions. Thyroid is normal in size. Lymphatics: No palpable cervical lymphadenopathy Respiratory: No respiratory distress. Quiet breathing without stertor or stridor. Cardiovascular: Regular rate and rhythm. Warm extremities with equal pulses. Psych: Normal mood and affect. Judgement and insight appropriate. Neuro: Alert and oriented. CN II-XII grossly intact. No focal deficits. 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) Pain of tooth on palpation (525.9) (K08.89) Personal history of COVID-19 (V12.09) (Z86.16) Preoperative clearance (V72.84) (Z01.818) Sinus pain (478.19) (J34.89) Type [address] elevation (410.70) (I21.A1) Allergies No Known Allergies Recorded By: Zulema Sequeira; 10/30/2022 9:06:50 AM Current Meds Medication NameInstruction Acarbose 100 MG Oral Tablet Ampicillin-Sulbactam Sodium 3 (2-1) GM Injection Solution Reconstituted Atenolol 50 MG Oral Tablet Chlorhexidine Gluconate 0.12 % Mouth/Throat SolutionRINSE MOUTH WITH 15ML (1 CAPFUL) FOR 30 SECONDS AM AND PM AFTER TOOTHBRUSHING. EXPECTORATE AFTER RINSING, DO NOT SWALLOW Cinnamon 500 MG Oral Tablet Clindamycin HCl - 150 MG Oral CapsuleTAKE 3 CAPSULES EVERY 6 HOURS. CONTINUE FOR 10 DAYS AND THEN STOP. Clotrimazole 10 MG Mouth/Throat TrocheDISSOLVE 1 TABLET BY MOUTH 5 TIMES PER DAY Coenzyme Q-10 100 MG Oral Capsule Doxycycline Hyclate 100 MG Oral CapsuleTake 1 capsule twice daily Fluconazole 200 MG Oral Tablet Fluticasone Propionate 50 MCG/ACT Nasal SuspensionUSE 2 SPRAYS IN EACH NOSTRIL ONCE DAILY Fluticasone Propionate 50 MCG/ACT Nasal Suspension Furosemide 20 MG Oral Tablet Glimepiride 4 MG Oral Tablet hydrALAZINE HCl - 50 MG Oral Tablet Jardiance 25 MG Oral Tablet Losartan Potassium 100 MG Oral Tablet Magnesium Oxide 400 MG Oral Tablet methylPREDNISolone 4 MG Oral Tablet Therapy PackTAKE 6 TABLETS ON DAY 1 DIRECTED ON PACKAGE AND DECREASE BY 1 TAB EACH DAY FOR A TOTAL OF 6 DAYS Multi Vitamin Mens TABS Pioglitazone HCl - 30 MG Oral Tablet Psyllium Husk 100 % POWD Red Yeast Rice 600 MG Oral Capsule Selenium 200 MCG Oral Tablet Spironolactone 50 MG Oral Tablet Vitamin C 1000 MG Oral Tablet Vitamin D 1000 UNIT TABS Warfarin Sodium 1 MG Oral Tablet Warfarin Sodium 5 MG Oral Tablet Zinc TABS Vitals Vital Signs Recorded: 29Dec2022 12:15PM Kjmgjebyxpp34.6 F Height6 ft 1 in Weigh (more content not included)... Normal [facility] Office Visit Presurgicalon 0 12-29-2022 Office Visit Presurgical Diagnoses/Problems Assessed Exposed mandibular bone (733.90) (R29.898) Chief Complaint FUV History of Present IllnessIH 5.15.23 Flap healed, now with some exposed bone IH 5.1.23 s/p serratus free flap for reconstruction of the palate doing well incisions intact, flap viable exposed bone palate reconstruction intact plan for bone debridement IH 4.17.12 Dr. Rodriguez performed maxilla debridement, has been on IV abx for osteomyelitis now planning for further debridement with reconstruction currently has left maxilla defect after extractions and debridment allens test with good ulnar flow bilaterally discussed free flap reconstruction after debridement completed by Dr. Rodriguez, likely serratus/scapula tip, neck exploration possible tracheostomy, pt already has g-tube for nutrition Chief Complaint: left vanessa-antral fistula Referring Provider: Dr. Key Jasso and Dr. Sutherland Location: left maxilla Quality: fistula, necrotic bone, swelling Severity: moderate Duration: 1.5 years Timing: all times Context: progressive disease of the left maxilla, denies history of smoking Modifying factors: none Associated signs and symptoms: left facial pain, left facial numbness, fistula of the maxillary sinus underwent previous septoplasty and ESS fistula appeared within the last 2 months no biopsies up to this point dental extraction of the left molar with dry socket now with progressive pain, bone exposure, non-healing wound, palate swelling referred for work up CT sinus wo contrast obtained outside, not available for review today Past, family, and social history obtained but not pertinent to current problem unless documented above. All other systems have been reviewed and are negative for complaint unless documented above. Physical Exam at initial visit General: Well-developed and well-nourished in appearance. Skin: No rashes or concerning lesions on the visible portions of the skin. Eyes: Extraocular movements intact. Visual randall grossly normal. Ears: Pinna are normal in shape and position. External canals are patent. Nose: Dorsum is midline Oral Cavity/Oropharynx: left posterior maxilla oroantral fistula, necrotic bone alone left maxilla buccal ridge, raised mucosa of the right hard palate Neck: Midline trachea without masses or lesions. Thyroid is normal in size. Lymphatics: No palpable cervical lymphadenopathy Respiratory: No respiratory distress. Quiet breathing without stertor or stridor. Cardiovascular: Regular rate and rhythm. Warm extremities with equal pulses. Psych: Normal mood and affect. Judgement and insight appropriate. Neuro: Alert and oriented. CN II-XII grossly intact. No focal deficits. 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) Pain of tooth on palpation (525.9) (K08.89) Personal history of COVID-19 (V12.09) (Z86.16) Preoperative clearance (V72.84) (Z01.818) Sinus pain (478.19) (J34.89) Type [address] elevation (410.70) (I21.A1) Allergies NoKnown No Known Allergies Recorded By: Zulema Sequeira; 10/30/2022 9:06:50 AM Current Meds Medication NameInstruction Acarbose 100 MG Oral Tablet Ampicillin-Sulbactam Sodium 3 (2-1) GM Injection Solution Reconstituted Atenolol 50 MG Oral Tablet Chlorhexidine Gluconate 0.12 % Mouth/Throat SolutionRINSE MOUTH WITH 15ML (1 CAPFUL) FOR 30 SECONDS AM AND PM AFTER TOOTHBRUSHING. EXPECTORATE AFTER RINSING, DO NOT SWALLOW Cinnamon 500 MG Oral Tablet Clindamycin HCl - 150 MG Oral CapsuleTAKE 3 CAPSULES EVERY 6 HOURS. CONTINUE FOR 10 DAYS AND THEN STOP. Clotrimazole 10 MG Mouth/Throat TrocheDISSOLVE 1 TABLET BY MOUTH 5 TIMES PER DAY Coenzyme Q-10 100 MG Oral Capsule Doxycycline Hyclate 100 MG Oral CapsuleTake 1 capsule twice daily Fluconazole 200 MG Oral Tablet Fluticasone Propionate 50 MCG/ACT Nasal SuspensionUSE 2 SPRAYS IN EACH NOSTRIL ONCE DAILY Fluticasone Propionate 50 MCG/ACT Nasal Suspension Furosemide 20 MG Oral Tablet Glimepiride 4 MG Oral Tablet hydrALAZINE HCl - 50 MG Oral Tablet Jardiance 25 MG Oral Tablet Losartan Potassium 100 MG Oral Tablet Magnesium Oxide 400 MG Oral Tablet methylPREDNISolone 4 MG Oral Tablet Therapy PackTAKE 6 TABLETS ON DAY 1 DIRECTED ON PACKAGE AND DECREASE BY 1 TAB EACH DAY FOR A TOTAL OF 6 DAYS Multi Vitamin Mens TABS Pioglitazone HCl - 30 MG Oral Tablet Psyllium Husk 100 % POWD Red Yeast Rice 600 MG Oral Capsule Selenium 200 MCG Oral Tablet Spironolactone 50 MG Oral Tablet Vitamin C 1000 MG Oral Tablet Vitamin D 1000 UNIT TABS Warfarin Sodium 1 MG Oral Tablet Warfarin Sodium 5 MG Oral Tablet Zinc TABS Vitals Vital Signs Recorded: 29Dec2022 12:15PM Temperature (more content not included)... Normal [facility] Tobacco Screening.on 023 Adult depression screening assessment No [facility] 4[facility] Work Phone: Fall risk assessment a) No falls within the last year -[facility] 4[address] Work Phone: Tobacco use status [facility] b) No [facility] 4[address] Work Phone: Blood Pressure Cuff Sizeon 0 12-23-2022 Adult depression screening assessment No MG-Infectio us Disease-[facility] [employer] Work Phone: Tobacco use status [facility] b) No MG-Infectio us Disease-[facility] [employer] Work Phone: Blood Pressure Cuff Size Adult MG-Infectio us Disease-[facility] [employer] Work Phone: Established Visit (Otolaryng ology)on 12-23-2022 Established Visit (Otolaryngology) Provider Impressions 72 yo man with a destructive process involving much of the left maxilla CT - mottled appearance throughout the maxilla involving nearly all of the premaxilla bl, and posteriorly into the ptyergoid plates biopsy - neg for malignancy cultures - mixed infection, beta-lactamase+ with dania s/p recon with serratus/rib free flap -may have just had a small stitch abscess or a small collection under the skin, does not appear grossly infected and there is no pocket/tract -placed some nugauze in the superficial wound, can remove tomorrow - has appointment with Dr. Amador Thursday Chief Complaint pov wound check Adult Risk ScreeningAdult Risk Screening_: There are no spiritual/cultural practices/values/needs that are important to know Initial Fall Risk Screening: BRENDON has not fallen in the last 6 months. BRENDON does not have a fear of falling. He does not need assistance with sitting, standing or walking. Does not need assistance walking in his home. He does not need assistance in an unfamiliar setting. The patient is not using an assistive device. Please identify location of pain: just surgical. Living Will. Living Will: No living will on file. Healthcare POA: No healthcare proxy on file. Declaration of Mental Health Treatment: No mental health treatment on file. Tobacco Screening: BRENDON does not use tobacco. Has not used tobacco in the past 6 months. Domestic Violence Screen: Does not feel threatened or abused physically, emotionally or sexually. Do you feel UNSAFE? The patient feels safe in the home. Depression/Suicide Screening: During the past 2 weeks, the patient has not felt down, depressed or hopeless. During the past 2 weeks, the patient has not felt little interest or pleasure in doing things. He does not have a risk of suicide. He has not had thoughts of harming others. [place]-SUICIDE SEVERITY RATING SCALE 1. Have you wished you were or wished you could go to sleep and not wake up? -NO 2. Have you actually had any thoughts of killing yourself? - NO 6. Have you done anything, started to do anything, or prepared to do anything to end your life? - NO. Single alcohol screening question: In the past year the patient has had 5 or more drinks (men) or 4 or more drinks (women)? 0 time(s). Single substance abuse screening question: In the past year the patient has used a recreational drug or used a prescription drug for non-medical reasons? 0 time(s). Nutrition Screening: In the past month, there was not a day when I or anyone in my family went hungry because there was not enough food. Patient Education: The patient denies that they or the person with them has problems with hearing, speaking, seeing, moving around or learning The patient is comfortable filling out medical forms. Food Insecurity: 1. Within the past 12 months, you worried that your food would run out before you got money to buy more: No 2. Within the past 12 months, the food you bought just didn't last and you didn't have money to get more: No History of Present Illness 72 yo man who presents for evaluation of pain and swelling in the jaw. He start noticing problems with swelling almost 2 years ago, but more recently has had leakage of food/water from his nose. He had a tooth extracted which didn't help. Had CT scans done. Saw dr. Amador and was referred to me. non smoker. on coumadin for blood clot in the leg. no history of cad. 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) Pain of tooth on palpation (525.9) (K08.89) Personal history of COVID-19 (V12.09) (Z86.16) Preoperative clearance (V72.84) (Z01.818) Sinus pain (478.19) (J34.89) Type [address] elevation (410.70) (I21.A1) Allergies No Known Allergies Recorded By: Zulema Sequeira; 10/30/2022 9:06:50 AM Current Meds Medication NameInstruction Acarbose 100 MG Oral Tablet Ampicillin-Sulbactam Sodium 3 (2-1) GM Injection Solution Reconstituted Atenolol 50 MG Oral Tablet BD Pen Needle Micro U/F 32G X 6 MM Chlorhexidine Gluconate 0.12 % Mouth/Throat SolutionRINSE MOUTH WITH 15ML (1 CAPFUL) FOR 30 SECONDS AM AND PM AFTER TOOTHBRUSHING. EXPECTORATE AFTER RINSING, DO NOT SWALLOW Cinnamon 500 MG Oral Tablet Clindamycin HCl - 150 MG Oral CapsuleTAKE 3 CAPSULES EVERY 6 HOURS. CONTINUE FOR 10 DAYS AND THEN STOP. Clotrimazole 10 MG Mouth/Throat TrocheDISSOLVE 1 TABLET BY MOUTH 5 TIMES PER DAY Coenzyme Q-10 100 MG Oral Capsule Doxycycline Hycla (more content not included)... Normal dooub BASIC METABOLIC PANELon 05-0 Anion gap [Moles/Vol] 13 mmol/L Normal 10 - 20 [facility] Comment on above: Order Comment: [facility] CARE TEAM 6 Performed By: #### B MP ####[address] [address] Calcium [Mass/Vol] 9.1 mg/dL Normal 8.6 - 10.3 [facility] Comment on above: Order Comment: [facility] CARE TEAM 6 Performed By: #### B MP ####[address] [address] Chloride [Moles/Vol] 102 mmol/L Normal 98 - 107 [facility] Comment on above: Order Comment: [facility] CARE TEAM 6 Performed By: #### B MP ####[address] [address] Creatinine [Mass/Vol] 1.67 mg/dL High 0.50 - 1.30 [facility] Comment on above: Order Comment: [facility] CARE TEAM 6 Performed By: #### B MP ####[address] [address] GFR/1.73 sq M.predicted among non-blacks MDRD (S/P/Bld) [Vol rate/Area] 44 mL/min/{1.73_m2} Abnormal >90 [facility] Comment on above: Order Comment: [facility] CARE TEAM 6 Result Comment: CALC ULATIONS OF ESTIMATED GFR ARE PERFORMED USING THE 2020 CKD-EPI STUDY REFIT EQUATION WITHOUT THE RACE VARIABLE FOR THE IDMS-TRACEABLE CREATININE METHODS.https://jasn.asnjournals.org/content/early//A SN.4690835488 Performed By: #### B MP ####[address] [address] Glucose [Mass/Vol] 117 mg/dL High 74 - 99 [facility] Comment on above: Order Comment: [facility] CARE TEAM 6 Performed By: #### B MP ####[address] [address] HCO3 (Bld) [Moles/Vol] 25 mmol/L Normal 21 - 32 [facility] Comment on above: Order Comment: [facility] ME CARE TEAM 6 Performed By: #### B MP ####[address] [address] Potassium [Moles/Vol] 4.0 mmol/L Normal 3.5 - 5.3 [facility] Comment on above: Order Comment: [facility] ME CARE TEAM 6 Performed By: #### B MP ####[address] [address] Sodium [Moles/Vol] 136 mmol/L Normal 136 - 145 [facility] Comment on above: Order Comment: [facility] ME CARE TEAM 6 Performed By: #### B MP ####[place] [id number] Urea nitrogen [Mass/Vol] 25 mg/dL High 6 - 23 [facility] Comment on above: Order Comment: [facility] ME CARE TEAM 6 Performed By: #### B MP ####[address] [address] C Reactive Protein, Serumon 12-22-2022 CRP [Mass/Vol] 0.87 mg/dL MG-Infecti o us Disease-[facility] [employer] Work Phone: Comment on above: REF VALUE< 1.00 C-REACTIVE PROTEINon 023 C-REACTIVE PROTEIN 0.87 mg/dL Normal [facility] Comment on above: Order Comment: [facility] ME CARE TEAM 6 Result Comment: REF VALUE< 1.00 Performed By: #### C RP ####[place] [id number] CBCon 12-22-2022 Erythrocyte distribution width (RBC) [Ratio] 15.8 % High 11.5 - 14.5 [facility] Comment on above: Order Comment: HO ME CARE TEAM 6 Performed By: #### C BC ####[address] [address] Hematocrit (Bld) [Volume fraction] 33.8 % Low 41.0 - 52.0 [facility] Comment on above: Order Comment: [facility] HO [facility] CARE TEAM 6 Performed By: #### C BC ####[address] [address] Hemoglobin (Bld) [Mass/Vol] 10.5 g/dL Low 13.5 - 17.5 [facility] Comment on above: Order Comment: [facility] HO ME CARE TEAM 6 Performed By: #### C BC ####[address] [address] MCHC (RBC) [Mass/Vol] 31.1 g/dL Low 32.0 - 36.0 [facility] Comment on above: Order Comment: [facility] HO ME CARE TEAM 6 Performed By: #### C BC ####[address] [address] MCV (RBC) [Entitic vol] 100 fL Normal 80 - 100 [facility] Comment on above: Order Comment: [facility] HO ME CARE TEAM 6 Performed By: #### C BC ####[address] [address] Platelets (Bld) [#/Vol] 392 10*3/uL Normal 150 - 450 [facility] Comment on above: Order Comment: [facility] HO ME CARE TEAM 6 Performed By: #### C BC ####[address] [address] RBC 3.37 x10E12/L Low 4.50 - 5.90 [facility] Comment on above: Order Comment: [facility] HO ME CARE TEAM 6 Performed By: #### C BC ####[address] [address] WBC (Bld) [#/Vol] 7.9 10*3/uL Normal 4.4 - 11.3 [facility] Comment on above: Order Comment: [facility] HO ME CARE TEAM 6 Performed By: #### C BC ####[address] [address] Laboratory - Chemistry and C hemistry - challengeon 12-22-2022 Anion gap [Moles/Vol] 13 mmol/L 10 - 20 MG- [facility] [employer] Work Phone: Calcium [Mass/Vol] 9.1 mg/dL 8.6 - 10.3 MG-Inf ectio [facility] [employer] Work Phone: Chloride [Moles/Vol] 102 mmol/L 98 - 107 MG-I nfectio Disease-[facility] [employer] Work Phone: CO2 [Moles/Vol] 25 mmol/L 21 - 32 MG-Infect io us Disease-[facility] [employer] Work Phone: Creatinine [Mass/Vol] 1.67 mg/dL above high threshold See Below MG-[facility]io [facility] [employer] Work Phone: Comment on above: Reference Range: 0.5 0 - 1.30 Glucose [Mass/Vol] 117 mg/dL above high threshold 74 - 99 MG-[facility]io [facility] [employer] Work Phone: Potassium [Moles/Vol] 4.0 mmol/L 3.5 - 5.3 MG- Infectio [facility] [employer] Work Phone: Sodium [Moles/Vol] 136 mmol/L 136 - 145 MG-Inf ectio [facility] [employer] Work Phone: Urea nitrogen [Mass/Vol] 25 mg/dL above high threshold 6 - 23 MG[facility]fectio [facility] [employer] Work Phone: Laboratory - Hematology and Cell countson 12-22-2022 Erythrocyte distribution width (RBC) [Ratio] 15.8 % above high threshold See Below MG-[facility]fectio [facility] [employer] Work Phone: Comment on above: Reference Range: 11. 5 - 14.5 Hematocrit (Bld) [Volume fraction] 33.8 % below low threshold See Below MG-[facility]fectio [facility] [employer] Work Phone: Comment on above: Reference Range: 41. 0 - 52.0 Hemoglobin (Bld) [Mass/Vol] 10.5 g/dL below low threshold See Below MG-Infectio [facility] [employer] Work Phone: Comment on above: Reference Range: 13. 5 - 17.5 MCHC (RBC) [Mass/Vol] 31.1 g/dL below low threshold See Below MG-[facility]fectio [facility] [employer] Work Phone: Comment on above: Reference Range: 32. 0 - 36.0 MCV (RBC) [Entitic vol] 100 fL 80 - 100 MG-Infectio [facility] [employer] Work Phone: Platelets (Bld) [#/Vol] 392 10*3/uL 150 - 450 MG-Infectio [facility] [employer] Work Phone: RBC (Bld) [#/Vol] 3.37 {x10E12/L} below low threshold See Below MG-Infectio [facility] [employer] Work Phone: Comment on above: Reference Range: 4.5 0 - 5.90 WBC (Bld) [#/Vol] 7.9 10*3/uL 4.4 - 11.3 MG-Inf ectio [facility] [employer] Work Phone: No Panel Informationon 12-22 44 {mL/min/1.73m2} Abnormal >90 MG-Inf ectio [facility] [employer] Phone: Comment on above: CALCULATIONS OF REYNALDO MATED GFR ARE PERFORMED USING THE 2020 CKD-EPI STUDY REFIT EQUATION WITHOUT THE RACE VARIABLE FOR THE IDMS-TRACEABLE CREATININE METHODS.https://jasn.asnjournals.org/content/early/A SN.9720542271 BASIC METABOLIC PANELon 05-0 Anion gap [Moles/Vol] 18 mmol/L Normal 10 - 20 [facility] Comment on above: Performed By: #### B MP ####[id number] [place] [address] Calcium [Mass/Vol] 9.5 mg/dL Normal 8.6 - 10.6 [facility] Comment on above: Performed By: #### B MP ####[id number] [place] [address] Chloride [Moles/Vol] 102 mmol/L Normal 98 - 107 [facility] Comment on above: Performed By: #### B MP ####[id number] [place] [address] Creatinine [Mass/Vol] 1.58 mg/dL High 0.50 - 1.30 [facility] Comment on above: Performed By: #### B MP ####[id number] [place] [address] GFR/1.73 sq M.predicted among non-blacks MDRD (S/P/Bld) [Vol rate/Area] 47 mL/min/{1.73_m2} Abnormal >90 [facility] Comment on above: Result Comment: CALC ULATIONS OF ESTIMATED GFR ARE PERFORMED USING THE 2020 CKD-EPI STUDY REFIT EQUATION WITHOUT THE RACE VARIABLE FOR THE IDMS-TRACEABLE CREATININE METHODS.https://jasn.asnjournals.org/content/early/A SN.1374361932 Performed By: #### B MP ####[id number] [place] [address] Glucose [Mass/Vol] 174 mg/dL High 74 - 99 [facility] Comment on above: Performed By: #### B MP ####[id number] [place] [address] HCO3 (Bld) [Moles/Vol] 26 mmol/L Normal 21 - 32 [facility] Comment on above: Performed By: #### B MP ####[id number] [place] [address] Potassium [Moles/Vol] 4.8 mmol/L Normal 3.5 - 5.3 [facility] Comment on above: Performed By: #### B MP ####[id number] [place] [address] Sodium [Moles/Vol] 141 mmol/L Normal 136 - 145 [facility] Comment on above: Performed By: #### B MP ####[id number] [place] [address] Urea nitrogen [Mass/Vol] 18 mg/dL Normal 6 - 23 [facility] Comment on above: Performed By: #### B MP ####[id number] [place] [address] C-REACTIVE PROTEINon 023 C-REACTIVE PROTEIN 1.82 mg/dL Abnormal [facility] Comment on above: Result Comment: REF VALUE< 1.00 Performed By: #### C RP ####[id number] [place] [address] CBC AND DIFFERENTIALon 12-19 % AUTOMATED IMMATURE GRAN 2.2 % High 0.0 - 0.9 [facility] Comment on above: Result Comment: Sarah ture Granulocyte Count (IG) includes promyelocytes, myelocytes and metamyelocytes but does not include bands. Percent differential counts (%) should be interpreted in the context of the absolute cell counts (cells/L). Performed By: #### C BCDF ####[id number] [place] [address] Basophils (Bld) [#/Vol] 0.08 10*3/uL Normal 0.00 - 0.10 [facility] Comment on above: Performed By: #### C BCDF ####[id number] [place] [address] Basophils/100 WBC (Bld) 0.8 % Normal 0.0 - 2.0 [facility] Comment on above: Performed By: #### C BCDF ####[id number] [place] [address] Eosinophils (Bld) [#/Vol] 0.29 10*3/uL Normal 0.00 - 0.70 [facility] Comment on above: Performed By: #### C BCDF ####[id number] [place] [address] Eosinophils/100 WBC (Bld) 3.0 % Normal 0.0 - 6.0 [facility] Comment on above: Performed By: #### C BCDF ####[id number] [place] [address] Erythrocyte distribution width (RBC) [Ratio] 16.0 % High 11.5 - 14.5 [facility] Comment on above: Performed By: #### C BCDF ####[id number] [place] [address] Hematocrit (Bld) [Volume fraction] 32.7 % Low 41.0 - 52.0 [facility] Comment on above: Performed By: #### C BCDF ####[id number] [place] [address] Hemoglobin (Bld) [Mass/Vol] 10.2 g/dL Low 13.5 - 17.5 [facility] Comment on above: Performed By: #### C BCDF ####[id number] [place] [address] Lymphocytes (Bld) [#/Vol] 1.79 10*3/uL Normal 1.20 - 4.80 [facility] Comment on above: Performed By: #### C BCDF ####[id number] [place] [address] Lymphocytes/100 WBC (Bld) 18.3 % Normal 13.0 - 44.0 [facility] Comment on above: Performed By: #### C BCDF ####[id number] [place] [address] MCHC (RBC) [Mass/Vol] 31.2 g/dL Low 32.0 - 36.0 [facility] Comment on above: Performed By: #### C BCDF ####[id number] [place] [address] MCV (RBC) [Entitic vol] 100 fL Normal 80 - 100 [facility] Comment on above: Performed By: #### C BCDF ####[id number] [place] [address] Monocytes (Bld) [#/Vol] 0.77 10*3/uL Normal 0.10 - 1.00 [facility] Comment on above: Performed By: #### C BCDF ####[id number] [place] [address] Monocytes/100 WBC (Bld) 7.9 % Normal 2.0 - 10.0 [facility] Comment on above: Performed By: #### C BCDF ####[id number] [place] [address] Neutrophils (Bld) [#/Vol] 6.63 10*3/uL Normal 1.20 - 7.70 [facility] Comment on above: Performed By: #### C BCDF ####[id number] [place] [address] Neutrophils/100 WBC (Bld) 67.8 % Normal 40.0 - 80.0 [facility] Comment on above: Performed By: #### C BCDF ####[id number] [place] [address] NUCLEATED RBC 0.0 /100 WBC Normal 0.0-0.0 [facility] Comment on above: Performed By: #### C BCDF ####[id number] [place] [address] Platelets (Bld) [#/Vol] 429 10*3/uL Normal 150 - 450 [facility] Comment on above: Performed By: #### C BCDF ####[id number] [place] [address] RBC 3.27 x10E12/L Low 4.50 - 5.90 [facility] Comment on above: Performed By: #### C BCDF ####[id number] [place] [address] WBC (Bld) [#/Vol] 9.8 10*3/uL Normal 4.4 - 11.3 [facility] Comment on above: Performed By: #### C BCDF ####[id number] [place] [address] PT/INRon 12-19-2022 PT Coag (PPP) [Time] 28.6 s High 9.8 - 13.4 [facility] Comment on above: Performed By: #### P TINR ####[id number] [place] [address] PT, INR 2.4 High 0.9 - 1.1 [facility] Comment on above: Performed By: #### P TINR ####[id number] [place] [address] C Reactive Protein, Serumon 12-18-2022 CRP [Mass/Vol] 1.82 mg/dL Abnormal MG-[facility]fecti o [facility] [employer] Work Phone: Comment on above: REF VALUE< 1.00 Complete Blood Count + Diffe rentialon 12-18-2022 Basophils/100 WBC (Bld) 0.8 % 0.0 - 2.0 MG-[facility]fectio [facility] [employer] Phone: Erythrocyte distribution width (RBC) [Ratio] 16.0 % above high threshold See Below MG-Infectio us [facility] [employer] Phone: Comment on above: Reference Range: 11. 5 - 14.5 Hematocrit (Bld) [Volume fraction] 32.7 % below low threshold See Below MG-Infectio us [facility] [employer] Phone: Comment on above: Reference Range: 41. 0 - 52.0 Hemoglobin (Bld) [Mass/Vol] 10.2 g/dL below low threshold See Below MG-[facility]fectio [facility] [employer] Phone: Comment on above: Reference Range: 13. 5 - 17.5 Lymphocytes/100 WBC (Bld) 18.3 % See Below MG-[facility]fectio [facility] [employer] Phone: Comment on above: Reference Range: 13. 0 - 44.0 MCHC (RBC) [Mass/Vol] 31.2 g/dL below low threshold See Below MG-Infectio us [facility] [employer] Phone: Comment on above: Reference Range: 32. 0 - 36.0 MCV (RBC) [Entitic vol] 100 fL 80 - 100 MG-[facility]fectio [facility] [employer] Work Phone: [phone] Monocytes/100 WBC (Bld) 7.9 % 2.0 - 10.0 MG-Infectio us Disease-[facility] [employer] Phone: [phone] Neutrophils/100 WBC (Bld) 67.8 % See Below MG-Infectio [facility] [employer] Work Phone: [phone] Comment on above: Reference Range: 40. 0 - 80.0 Platelets (Bld) [#/Vol] 429 10*3/uL 150 - 450 MG-[facility]fectio [facility] [employer] Phone: [phone] RBC (Bld) [#/Vol] 3.27 {x10E12/L} below low threshold See Below MG-Infectio us [facility] [employer] Phone: [phone] Comment on above: Reference Range: 4.5 0 - 5.90 WBC (Bld) [#/Vol] 9.8 10*3/uL 4.4 - 11.3 MG-Inf ectio [facility] [employer] Phone: [phone] Complete Blood Count + Differential 0.08 {x10E9/L} See Below MG-Infectio us [facility] [employer] Phone: [phone] Comment on above: Reference Range: 0.0 0 - 0.10 Complete Blood Count + Differential 0.29 {x10E9/L} See Below MG-[facility]fectio [facility] [employer] Phone: Comment on above: Reference Range: 0.0 0 - 0.70 Complete Blood Count + Differential 0.77 {x10E9/L} See Below MG-[facility]fectio [facility] [employer] Phone: Comment on above: Reference Range: 0.1 0 - 1.00 Complete Blood Count + Differential 1.79 {x10E9/L} See Below MG-Infectio [facility] [employer] Work Phone: Comment on above: Reference Range: 1.2 0 - 4.80 Complete Blood Count + Differential 6.63 {x10E9/L} See Below MG-Infectio [facility] [employer] Work Phone: Comment on above: Reference Range: 1.2 0 - 7.70 Complete Blood Count + Differential 3.0 % 0.0 - 6.0 MG-Infectio [facility] [employer] Work Phone: Complete Blood Count + Differential 2.2 % above high threshold 0.0 - 0.9 MG-Infectio [facility] [employer] Work Phone: Comment on above: Immature Granulocyte Count (IG) includes promyelocytes, myelocytes and metamyelocytes but does not include bands. Percent differential counts (%) should be interpreted in the context of the absolute cell counts (cells/L). Complete Blood Count + Differential 0.0 {/100_WBC} 0.0-0.0 MG-Infectio [facility] [employer] Work Phone: Laboratory - Chemistry and C hemistry - challengeon 12-18-2022 Anion gap [Moles/Vol] 18 mmol/L 10 - 20 MG- Infectio [facility] [employer] Work Phone: Calcium [Mass/Vol] 9.5 mg/dL 8.6 - 10.6 MG-Inf ectio [facility] [employer] Work Phone: Chloride [Moles/Vol] 102 mmol/L 98 - 107 MG-I nfectio [facility] [employer] Work Phone: CO2 [Moles/Vol] 26 mmol/L 21 - 32 MG-Infect io [facility] [employer] Work Phone: Creatinine [Mass/Vol] 1.58 mg/dL above high threshold See Below MG-Infectio [facility] [employer] Work Phone: Comment on above: Reference Range: 0.5 0 - 1.30 Glucose [Mass/Vol] 174 mg/dL above high threshold 74 - 99 MG-[facility]fectio [facility] [employer] Work Phone: Potassium [Moles/Vol] 4.8 mmol/L 3.5 - 5.3 MG- Infectio us Disease-[facility] [employer] Work Phone: Sodium [Moles/Vol] 141 mmol/L 136 - 145 MG-Inf ectio [facility] [employer] Work Phone: Urea nitrogen [Mass/Vol] 18 mg/dL 6 - 23 MG[facility]fectio [facility] [employer] Work Phone: Laboratory - Coagulationon 0 12-18-2022 INR Coag (PPP) [Relative time] 2.4 {INR} above high threshold 0.9 - 1.1 MG-Infectio us [facility] [employer] Work Phone: PT Coag (PPP) [Time] 28.6 s above high threshold 9.8 - 13.4 MG-Infectio us [facility] [employer] Work Phone: No Panel Informationon 12-18 47 {mL/min/1.73m2} Abnormal >90 MG-Inf ectio [facility] [employer] Work Phone: Comment on above: CALCULATIONS OF REYNALDO MATED GFR ARE PERFORMED USING THE 2020 CKD-EPI STUDY REFIT EQUATION WITHOUT THE RACE VARIABLE FOR THE IDMS-TRACEABLE CREATININE METHODS.https://jasn.asnjournals.org/content///A SN.8484888540 BASIC METABOLIC PANELon 05-0 Anion gap [Moles/Vol] 14 mmol/L Normal 10 - 20 [facility] Comment on above: Performed By: #### B MP ####[address] [address] Calcium [Mass/Vol] 8.9 mg/dL Normal 8.6 - 10.3 [facility] Comment on above: Performed By: #### B MP ####[address] [place] [address] Chloride [Moles/Vol] 102 mmol/L Normal 98 - 107 [facility] Comment on above: Performed By: #### B MP ####[address] [address] Creatinine [Mass/Vol] 1.38 mg/dL High 0.50 - 1.30 [facility] Comment on above: Performed By: #### B MP ####[address] [address] GFR/1.73 sq M.predicted among non-blacks MDRD (S/P/Bld) [Vol rate/Area] 55 mL/min/{1.73_m2} Abnormal >90 [facility] Comment on above: Result Comment: CALC ULATIONS OF ESTIMATED GFR ARE PERFORMED USING THE 2020 CKD-EPI STUDY REFIT EQUATION WITHOUT THE RACE VARIABLE FOR THE IDMS-TRACEABLE CREATININE METHODS.https://jasn.asnjournals.org/content//A SN.3670901548 Performed By: #### B MP ####[address] [address] Glucose [Mass/Vol] 94 mg/dL Normal 74 - 99 [facility] Comment on above: Performed By: #### B MP ####[address] [address] HCO3 (Bld) [Moles/Vol] 26 mmol/L Normal 21 - 32 [facility] Comment on above: Performed By: #### B MP ####[address] [address] Potassium [Moles/Vol] 3.8 mmol/L Normal 3.5 - 5.3 [facility] Comment on above: Performed By: #### B MP ####[address] [address] Sodium [Moles/Vol] 138 mmol/L Normal 136 - 145 [facility] Comment on above: Performed By: #### B MP ####[address] [address] Urea nitrogen [Mass/Vol] 18 mg/dL Normal 6 - 23 [facility] Comment on above: Performed By: #### B MP ####[address] [address] C Reactive Protein, Serumon 12-16-2022 CRP [Mass/Vol] 1.94 mg/dL Abnormal MG-Infecti o us Disease-[facility] [employer] Work Phone: Comment on above: REF VALUE< 1.00 C-REACTIVE PROTEINon 023 C-REACTIVE PROTEIN 1.94 mg/dL Abnormal [facility] Comment on above: Result Comment: REF VALUE< 1.00 Performed By: #### C RP ####[address] [address] CBC AND DIFFERENTIALon 12-16 % AUTOMATED IMMATURE GRAN 2.0 % High 0.0 - 0.9 [facility] Comment on above: Result Comment: Sarah ture Granulocyte Count (IG) includes promyelocytes, myelocytes and metamyelocytes but does not include bands. Percent differential counts (%) should be interpreted in the context of the absolute cell counts (cells/L). Performed By: #### C BCDF ####[address] [address] Basophils (Bld) [#/Vol] 0.05 10*3/uL Normal 0.00 - 0.10 [facility] Comment on above: Performed By: #### C BCDF ####[address] [address] Basophils/100 WBC (Bld) 0.4 % Normal 0.0 - 2.0 [facility] Comment on above: Performed By: #### C BCDF ####[address] [address] Eosinophils (Bld) [#/Vol] 0.14 10*3/uL Normal 0.00 - 0.70 [facility] Comment on above: Performed By: #### C BCDF ####[address] [address] Eosinophils/100 WBC (Bld) 1.1 % Normal 0.0 - 6.0 [facility] Comment on above: Performed By: #### C BCDF ####[address] [address] Erythrocyte distribution width (RBC) [Ratio] 16.2 % High 11.5 - 14.5 [facility] Comment on above: Performed By: #### C BCDF ####[address] [address] Hematocrit (Bld) [Volume fraction] 33.1 % Low 41.0 - 52.0 [facility] Comment on above: Performed By: #### C BCDF ####[address] [address] Hemoglobin (Bld) [Mass/Vol] 10.1 g/dL Low 13.5 - 17.5 [facility] Comment on above: Performed By: #### C BCDF ####[address] [address] Lymphocytes (Bld) [#/Vol] 1.39 10*3/uL Normal 1.20 - 4.80 [facility] Comment on above: Performed By: #### C BCDF ####[address] [address] Lymphocytes/100 WBC (Bld) 11.2 % Normal 13.0 - 44.0 [facility] Comment on above: Performed By: #### C BCDF ####[address] [address] MCHC (RBC) [Mass/Vol] 30.5 g/dL Low 32.0 - 36.0 [facility] Comment on above: Performed By: #### C BCDF ####[address] [address] MCV (RBC) [Entitic vol] 102 fL High 80 - 100 [facility] Comment on above: Performed By: #### C BCDF ####[address] [address] Monocytes (Bld) [#/Vol] 0.80 10*3/uL Normal 0.10 - 1.00 [facility] Comment on above: Performed By: #### C BCDF ####[address] [address] Monocytes/100 WBC (Bld) 6.5 % Normal 2.0 - 10.0 [facility] Comment on above: Performed By: #### C BCDF ####[address] [address] Neutrophils (Bld) [#/Vol] 9.77 10*3/uL High 1.20 - 7.70 [facility] Comment on above: Result Comment: Perc ent differential counts (%) should be interpreted in the context of the absolute cell counts (cells/L). Performed By: #### C BCDF ####[address] [address] Neutrophils/100 WBC (Bld) 78.8 % Normal 40.0 - 80.0 [facility] Comment on above: Performed By: #### C BCDF ####[address] [address] Platelets (Bld) [#/Vol] 403 10*3/uL Normal 150 - 450 [facility] Comment on above: Performed By: #### C BCDF ####[address] [address] RBC 3.26 x10E12/L Low 4.50 - 5.90 [facility] Comment on above: Performed By: #### C BCDF ####[address] [address] WBC (Bld) [#/Vol] 12.4 10*3/uL High 4.4 - 11.3 [facility] Comment on above: Performed By: #### C BCDF ####[address] [address] Complete Blood Count + Diffe rentialon 12-16-2022 Basophils/100 WBC (Bld) 0.4 % 0.0 - 2.0 MG-Infectio us Disease-[facility] [employer] Work Phone: Erythrocyte distribution width (RBC) [Ratio] 16.2 % above high threshold See Below MG-Infectio us Disease-[facility] [employer] Phone: Comment on above: Reference Range: 11. 5 - 14.5 Hematocrit (Bld) [Volume fraction] 33.1 % below low threshold See Below -Infectio us [facility] [employer] Phone: Comment on above: Reference Range: 41. 0 - 52.0 Hemoglobin (Bld) [Mass/Vol] 10.1 g/dL below low threshold See Below -Infectio us [facility] [employer] Phone: [phone] Comment on above: Reference Range: 13. 5 - 17.5 Lymphocytes/100 WBC (Bld) 11.2 % See Below -Infectio us [facility] [employer] Phone: Comment on above: Reference Range: 13. 0 - 44.0 MCHC (RBC) [Mass/Vol] 30.5 g/dL below low threshold See Below -Infectio us [facility] [employer] Phone: [phone] Comment on above: Reference Range: 32. 0 - 36.0 MCV (RBC) [Entitic vol] 102 fL above high threshold 80 - 100 -Infectio us [facility] [employer] Phone: [phone] Monocytes/100 WBC (Bld) 6.5 % 2.0 - 10.0 -Infectio [facility] [employer] Phone: [phone] Neutrophils/100 WBC (Bld) 78.8 % See Below -Infectio us [facility] [employer] Phone: [phone] Comment on above: Reference Range: 40. 0 - 80.0 Platelets (Bld) [#/Vol] 403 10*3/uL 150 - 450 -[facility]io [facility] [employer] Phone: [phone] RBC (Bld) [#/Vol] 3.26 {x10E12/L} below low threshold See Below -Infectio us [facility] [employer] Phone: Comment on above: Reference Range: 4.5 0 - 5.90 WBC (Bld) [#/Vol] 12.4 10*3/uL above high threshold 4.4 - 11.3 -Infectio [facility] [employer] Phone: Complete Blood Count + Differential 0.05 {x10E9/L} See Below [facility] [employer] Phone: Comment on above: Reference Range: 0.0 0 - 0.10 Complete Blood Count + Differential 0.14 {x10E9/L} See Below -Infectio us [facility] [employer] Phone: Comment on above: Reference Range: 0.0 0 - 0.70 Complete Blood Count + Differential 0.80 {x10E9/L} See Below [facility] [employer] Phone: Comment on above: Reference Range: 0.1 0 - 1.00 Complete Blood Count + Differential 1.39 {x10E9/L} See Below -Infectio [facility] [employer] Phone: Comment on above: Reference Range: 1.2 0 - 4.80 Complete Blood Count + Differential 9.77 {x10E9/L} above high threshold See Below -Infectio [facility] [employer] Phone: Comment on above: Reference Range: 1.2 0 - 7.70 Percent differential counts (%) should be interpreted in the context of the absolute cell counts (cells/L). Complete Blood Count + Differential 1.1 % 0.0 - 6.0 -Infectio [facility] [employer] Phone: Complete Blood Count + Differential 2.0 % above high threshold 0.0 - 0.9 -Infectio [facility] [employer] Phone: Comment on above: Immature Granulocyte Count (IG) includes promyelocytes, myelocytes and metamyelocytes but does not include bands. Percent differential counts (%) should be interpreted in the context of the absolute cell counts (cells/L). Laboratory - Chemistry and C hemistry - challengeon 12-16-2022 Anion gap [Moles/Vol] 14 mmol/L 10 - 20 MG- [facility] [employer] Work Phone: Calcium [Mass/Vol] 8.9 mg/dL 8.6 - 10.3 MG-Inf ectio [facility] [employer] Work Phone: Chloride [Moles/Vol] 102 mmol/L 98 - 107 MG-I nfectio [facility] [employer] Work Phone: CO2 [Moles/Vol] 26 mmol/L 21 - 32 MG-Infect io [facility] [employer] Work Phone: Creatinine [Mass/Vol] 1.38 mg/dL above high threshold See Below MG-Infectio [facility] [employer] Work Phone: Comment on above: Reference Range: 0.5 0 - 1.30 Glucose [Mass/Vol] 94 mg/dL 74 - 99 MG-Inf ectio [facility] [employer] Work Phone: Potassium [Moles/Vol] 3.8 mmol/L 3.5 - 5.3 MG- Infectio [facility] [employer] Work Phone: Sodium [Moles/Vol] 138 mmol/L 136 - 145 MG-Inf ectio [facility] [employer] Work Phone: Urea nitrogen [Mass/Vol] 18 mg/dL 6 - 23 MG-Infectio us [facility] [employer] Work Phone: No Panel Informationon 12-16 55 {mL/min/1.73m2} Abnormal >90 MG-Inf ectio [facility] [employer] Work Phone: Comment on above: CALCULATIONS OF REYNALDO MATED GFR ARE PERFORMED USING THE 2020 CKD-EPI STUDY REFIT EQUATION WITHOUT THE RACE VARIABLE FOR THE IDMS-TRACEABLE CREATININE METHODS.https://jasn.asnjournals.org/content/early//A SN.5275588511 Established Visit (Otolaryng ology)on 12-15-2022 Established Visit (Otolaryngology) Diagnoses/Problems 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 Rodriguez performed maxilla debridement, has been on IV abx for osteomyelitis now planning for further debridement with reconstruction currently has left maxilla defect after extractions and debridment allens test with good ulnar flow bilaterally discussed free flap reconstruction after debridement completed by Dr. Rodriguez, likely serratus/scapula tip, neck exploration possible tracheostomy, pt already has g-tube for nutrition Chief Complaint: left vanessa-antral fistula Referring Provider: Dr. Key Jasso and Dr. Sutherland Location: left maxilla Quality: fistula, necrotic bone, swelling Severity: moderate Duration: 1.5 years Timing: all times Context: progressive disease of the left maxilla, denies history of smoking Modifying factors: none Associated signs and symptoms: left facial pain, left facial numbness, fistula of the maxillary sinus underwent previous septoplasty and ESS fistula appeared within the last 2 months no biopsies up to this point dental extraction of the left molar with dry socket now with progressive pain, bone exposure, non-healing wound, palate swelling referred for work up CT sinus wo contrast obtained outside, not available for review today Past, family, and social history obtained but not pertinent to current problem unless documented above. All other systems have been reviewed and are negative for complaint unless documented above. Physical Exam: General: Well-developed and well-nourished in appearance. Skin: No rashes or concerning lesions on the visible portions of the skin. Eyes: Extraocular movements intact. Visual randall grossly normal. Ears: Pinna are normal in shape and position. External canals are patent. Nose: Dorsum is midline Oral Cavity/Oropharynx: left posterior maxilla oroantral fistula, necrotic bone alone left maxilla buccal ridge, raised mucosa of the right hard palate Neck: Midline trachea without masses or lesions. Thyroid is normal in size. Lymphatics: No palpable cervical lymphadenopathy Respiratory: No respiratory distress. Quiet breathing without stertor or stridor. Cardiovascular: Regular rate and rhythm. Warm extremities with equal pulses. Psych: Normal mood and affect. Judgement and insight appropriate. Neuro: Alert and oriented. CN II-XII grossly intact. No focal deficits. 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) Pain of tooth on palpation (525.9) (K08.89) Personal history of COVID-19 (V12.09) (Z86.16) Preoperative clearance (V72.84) (Z01.818) Sinus pain (478.19) (J34.89) Type [address] elevation (410.70) (I21.A1) Allergies No Known Allergies Recorded By: Zulema Sequeira; 10/30/2022 9:06:50 AM Current Meds Medication NameInstruction Acarbose 100 MG Oral Tablet Ampicillin-Sulbactam Sodium 3 (2-1) GM Injection Solution Reconstituted Atenolol 50 MG Oral Tablet BD Pen Needle Micro U/F 32G X 6 MM Cefdinir 300 MG Oral CapsuleTAKE 1 CAPSULE EVERY TWELVE HOURS DIRECTED Chlorhexidine Gluconate 0.12 % Mouth/Throat SolutionRINSE MOUTH WITH 15ML (1 CAPFUL) FOR 30 SECONDS AM AND PM AFTER TOOTHBRUSHING. EXPECTORATE AFTER RINSING, DO NOT SWALLOW Cinnamon 500 MG Oral Tablet Clindamycin HCl - 150 MG Oral CapsuleTAKE 3 CAPSULES EVERY 6 HOURS. CONTINUE FOR 10 DAYS AND THEN STOP. Clotrimazole 10 MG Mouth/Throat TrocheDISSOLVE 1 TABLET BY MOUTH 5 TIMES PER DAY Coenzyme Q-10 100 MG Oral Capsule Fluconazole 200 MG Oral Tablet Fluticasone Propionate 50 MCG/ACT Nasal SuspensionUSE 2 SPRAYS IN EACH NOSTRIL ONCE DAILY Fluticasone Propionate 50 MCG/ACT Nasal Suspension Furosemide 20 MG Oral Tablet Glimepiride 4 MG Oral Tablet Hibiclens 4 % External LiquidUSE DIRECTED. hydrALAZINE HCl - 50 MG Oral Tablet Jardiance 25 MG Oral Tablet Losartan Potassium 100 MG Oral Tablet Magnesium Oxide 400 MG Oral Tablet methylPREDNISolone 4 MG Oral Tablet Therapy P (more content not included)... Normal [facility]EV[employer]works Height or Weight NOT Doneon 12-15-2022 Adult depression screening assessment No [facility] 4100 Work Phone: Fall risk assessment a) No falls within the last year [facility] 4100 Work Phone: Tobacco use status CPHS b) No [facility] 4100 Work Phone: PT/INRon 12-11-2022 PROTHROMBIN TIME Canceled Normal [facility] Comment on above: Order Comment: TEST PT/INR WAS CANCELLED, 12/11/2022 02:10 Performed By: #### P TINR ####[id number] [id number] PT, INR Canceled Normal [facility] Comment on above: Order Comment: TEST PT/INR WAS CANCELLED, 12/11/2022 02:10 Performed By: #### P TINR ####[id number] [place] [address] Clinical Note - Pharmacy v2o n 12-10-2022 Clinical Note - Pharmacy v2 Normal [facility] GLUCOSE-POCTon 12-10-2022 Glucose [Mass/Vol] 123 mg/dL High 74 - 99 [facility] Comment on above: Performed By: #### G SUSAN ####[id number] [place] [address] Glucose [Mass/Vol] 225 mg/dL High 74 - 99 [facility] Comment on above: Performed By: #### G SUSAN ####[id number] [place] [address] Glucose [Mass/Vol] 170 mg/dL High 74 - 99 [facility] Comment on above: Performed By: #### G SUSAN ####[id number] [place] [address] Laboratory - Chemistry and C hemistry - challengeon 12-10-2022 Glucose [Mass/Vol] 123 mg/dL above high threshold 74 - 99 [facility] Work Phone: Glucose [Mass/Vol] 225 mg/dL above high threshold 74 - 99 [facility] 4[facility] Work Phone: Laboratory - Coagulationon 0 12-10-2022 INR Coag (PPP) [Relative time] 1.1 {INR} 0.9 - 1.1 MG-Otolaryn gology-[facility] 4100 Work Phone: PT Coag (PPP) [Time] 12.9 s 9.8 - 13.4 [facility] 4100 Work Phone: Nutrition Therapy-Noteon Nutrition Therapy-Note Normal [facility] PT/INRon 12-10-2022 PT Coag (PPP) [Time] 12.9 s Normal 9.8 - 13.4 [facility] Comment on above: Performed By: #### P TINR ####[id number] [place] [address] PT, INR 1.1 Normal 0.9 - 1.1 [facility] Comment on above: Performed By: #### P TINR ####[id number] [place] [address] CBCon 12-09-2022 Erythrocyte distribution width (RBC) [Ratio] 15.9 % High 11.5 - 14.5 [facility] Comment on above: Performed By: #### C BC ####[id number] [place] [address] Hematocrit (Bld) [Volume fraction] 27.9 % Low 41.0 - 52.0 [facility] Comment on above: Performed By: #### C BC ####[id number] [place] [address] Hemoglobin (Bld) [Mass/Vol] 8.9 g/dL Low 13.5 - 17.5 [facility] Comment on above: Performed By: #### C BC ####[id number] [place] [address] MCHC (RBC) [Mass/Vol] 31.9 g/dL Low 32.0 - 36.0 [facility] Comment on above: Performed By: #### C BC ####[id number] [place] [address] MCV (RBC) [Entitic vol] 100 fL Normal 80 - 100 [facility] Comment on above: Performed By: #### C BC ####[id number] [place] [address] NUCLEATED RBC 0.7 /100 WBC Normal 0.0-0.0 [facility] Comment on above: Performed By: #### C BC ####[id number] [place] [address] Platelets (Bld) [#/Vol] 281 10*3/uL Normal 150 - 450 [facility] Comment on above: Performed By: #### C BC ####[id number] [place] [address] RBC 2.79 x10E12/L Low 4.50 - 5.90 [facility] Comment on above: Performed By: #### C BC ####[id number] [place] [address] WBC (Bld) [#/Vol] 6.9 10*3/uL Normal 4.4 - 11.3 [facility] Comment on above: Performed By: #### C BC ####[id number] [place] [address] Clinical Event Note-ENT Flap Checkon 12-09-2022 Clinical Event Note-ENT Flap Check Normal [facility] Daily Progress Note-ENTon Daily Progress Note-ENT Normal [facility] GLUCOSE-POCTon 12-09-2022 Glucose [Mass/Vol] 151 mg/dL High 74 - 99 [facility] Comment on above: Performed By: #### G SUSAN ####[id number] [place] [address] Glucose [Mass/Vol] 131 mg/dL High 74 - 99 [facility] Comment on above: Performed By: #### G SUSAN ####[id number] [place] [address] Laboratory - Chemistry and C hemistry - challengeon 12-09-2022 Glucose [Mass/Vol] 170 mg/dL above high threshold 74 - 99 MG-Otolaryn gology-[place] [address] Work Phone: Glucose [Mass/Vol] 151 mg/dL above high threshold 74 - 99 MG-Otolaryn gology-[place] 163440 Work Phone: Glucose [Mass/Vol] 131 mg/dL above high threshold 74 - 99 MG-Otolaryn gology-[place] 163440 Work Phone: [phone] Laboratory - Coagulationon 0 12-09-2022 INR Coag (PPP) [Relative time] 1.1 {INR} 0.9 - 1.1 MG-Otolaryn gology-[place] 163440 Work Phone: [phone] PT Coag (PPP) [Time] 13.2 s 9.8 - 13.4 MG-O tolaryn gology-[place] [address] Work Phone: [phone] Laboratory - Hematology and Cell countson 12-09-2022 Erythrocyte distribution width (RBC) [Ratio] 15.9 % above high threshold See Below MG-Otolaryn gology-[facility] 4100 Work Phone: Comment on above: Reference Range: 11. 5 - 14.5 Hematocrit (Bld) [Volume fraction] 27.9 % below low threshold See Below [facility] [place] [address] Work Phone: [phone] Comment on above: Reference Range: 41. 0 - 52.0 Hemoglobin (Bld) [Mass/Vol] 8.9 g/dL below low threshold See Below [facility]tolaryn [facility] [place] [address] Work Phone: Comment on above: Reference Range: 13. 5 - 17.5 MCHC (RBC) [Mass/Vol] 31.9 g/dL below low threshold See Below [facility]tol[facility] [place] [address] Work Phone: Comment on above: Reference Range: 32. 0 - 36.0 MCV (RBC) [Entitic vol] 100 fL 80 - 100 [facility]tolaryn [facility] centeryJim [place] [address] Work Phone: [phone] Platelets (Bld) [#/Vol] 281 10*3/uL 150 - 450 [facility]UCK[facility]tolaryn [facility]ogyAlt[facility] 410 Work Phone: [phone] RBC (Bld) [#/Vol] 2.79 {x10E12/L} below low threshold See Below [facility]tolaryn [facility] centeryJim [place] [address] Work Phone: Comment on above: Reference Range: 4.5 0 - 5.90 WBC (Bld) [#/Vol] 6.9 10*3/uL 4.4 - 11.3 MGMao larlisbet [facility] centeryJim [place] [address] Work Phone: MAGNESIUMon 12-09-2022 Magnesium [Mass/Vol] 2.33 mg/dL Normal 1.60 - 2.40 [facility] Comment on above: Performed By: #### M G ####[id number] [place] [address] Magnesium, Serumon Magnesium [Mass/Vol] 2.33 mg/dL See Below MG-O tolaryn [facility] 4100 Work Phone: Comment on above: Reference Range: 1.6 0 - 2.40 No Panel Informationon 12-09 0.7 {/100_WBC} 0.0-0.0 MG-Otolary n [facility] 4100 Work Phone: Order Reconciliationon 12-09 Order Reconciliation Normal [facility] PT/INRon 12-09-2022 PROTHROMBIN TIME Canceled Normal [facility] Comment on above: Order Comment: TEST PT/INR WAS CANCELLED, 12/09/2022 06:37 DUPLICATE ORDER. Performed By: #### P TINR ####[id number] [place] [address] PT, INR Canceled Normal [facility] Comment on above: Order Comment: TEST PT/INR WAS CANCELLED, 12/09/2022 06:37 DUPLICATE ORDER. Performed By: #### P TINR ####[id number] [place] [address] PT Coag (PPP) [Time] 13.2 s Normal 9.8 - 13.4 [facility] Comment on above: Performed By: #### P TINR ####[id number] [place] [address] PT, INR 1.1 Normal 0.9 - 1.1 [facility] Comment on above: Performed By: #### P TINR ####[id number] [place] [address] RENAL FUNCTION PANELon 12-09 Urea nitrogen [Mass/Vol] 24 mg/dL High 6 - [facility] Comment on above: Performed By: #### R ENAL ####[id number] [place] [address] Albumin [Mass/Vol] 3.1 g/dL Low 3.4 - 5.0 [facility] Comment on above: Performed By: #### R ENAL ####[id number] [place] [address] Anion gap [Moles/Vol] 12 mmol/L Normal 10 - 20 [facility] Comment on above: Performed By: #### R ENAL ####[id number] [place] [address] Calcium [Mass/Vol] 8.1 mg/dL Low 8.6 - 10.6 [facility] Comment on above: Performed By: #### R ENAL ####[id number] [place] [address] Chloride [Moles/Vol] 113 mmol/L High 98 - 107 [facility] Comment on above: Performed By: #### R ENAL ####[id number] [place] [address] Creatinine [Mass/Vol] 1.06 mg/dL Normal 0.50 - 1.30 [facility] Comment on above: Performed By: #### R ENAL ####[id number] [place] [address] GFR/1.73 sq M.predicted among non-blacks MDRD (S/P/Bld) [Vol rate/Area] 75 mL/min/{1.73_m2} Normal >90 [facility] Comment on above: Result Comment: CALC ULATIONS OF ESTIMATED GFR ARE PERFORMED USING THE 2020 CKD-EPI STUDY REFIT EQUATION WITHOUT THE RACE VARIABLE FOR THE IDMS-TRACEABLE CREATININE METHODS.https://jasn.asnjournals.org/content/early//A SN.9716342518 Performed By: #### R ENAL ####[id number] [place] [address] Glucose [Mass/Vol] 92 mg/dL Normal 74 - 99 [facility] Comment on above: Performed By: #### R ENAL ####[id number] [place] [address] HCO3 (Bld) [Moles/Vol] 24 mmol/L Normal 21 - 32 [facility] Comment on above: Performed By: #### R ENAL ####[id number] [place] [address] Phosphate [Mass/Vol] 2.6 mg/dL Normal 2.5 - 4.9 [facility] Comment on above: Result Comment: The performance characteristics of phosphorus testing in heparinized plasma have been validated by the individual laboratory site where testing is performed. Testing on heparinized plasma is not approved by the FDA; however, such approval is not necessary. Performed By: #### R ENAL ####[id number] [place] [address] Potassium [Moles/Vol] 4.1 mmol/L Normal 3.5 - 5.3 [facility] Comment on above: Performed By: #### R ENAL ####[id number] [place] [address] Sodium [Moles/Vol] 145 mmol/L Normal 136 - 145 [facility] Comment on above: Performed By: #### R ENAL ####[id number] [place] [address] Renal Function Panelon 12-09 Albumin BCP dye [Mass/Vol] 3.1 g/dL below low threshold 3.4 - 5.0 MG-Otolaryn gology-[facility] 4100 Work Phone: [phone] Anion gap [Moles/Vol] 12 mmol/L 10 - 20 MG- Otolaryn gology-[facility] 4100 Work Phone: Calcium [Mass/Vol] 8.1 mg/dL below low threshold 8.6 - 10.6 MG-Otolaryn gology-[facility] 4100 Work Phone: Chloride [Moles/Vol] 113 mmol/L above high threshold 98 - 107 MG-Otolaryn gology-[facility] 4100 Work Phone: [phone] CO2 [Moles/Vol] 24 mmol/L 21 - 32 MG-Otolar yn gology-[facility] 4100 Work Phone: Creatinine [Mass/Vol] 1.06 mg/dL See Below MG- Margoth [facility] centerjaneneJim [place] [address] Work Phone: Comment on above: Reference Range: 0.5 0 - 1.30 Glucose [Mass/Vol] 92 mg/dL 74 - 99 MG-Maoelizabeth hathaway [facility] centerjaneneJim [place] [address] Work Phone: Phosphate [Mass/Vol] 2.6 mg/dL 2.5 - 4.9 MG-O nataliia [facility] 410 Work Phone: Comment on above: The performance violet acteristics of phosphorus testing in heparinized plasma have been validated by the individual laboratory site where testing is performed. Testing on heparinized plasma is not approved by the FDA; however, such approval is not necessary. Potassium [Moles/Vol] 4.1 mmol/L 3.5 - 5.3 MG- Margoth fernandez[place] [address] Work Phone: Sodium [Moles/Vol] 145 mmol/L 136 - 145 [facility] centerlisbet [place] [address] Work Phone: Urea nitrogen [Mass/Vol] 24 mg/dL above high threshold 6 - 23 MGYayabunnlevellisbet [facility] centerjaneneJim [place] [address] Work Phone: Renal Function Panel 75 {mL/min/1.73m2} >90 MG-Yayaolarlisbet [facility] centerjaneneJim [place] [address] Work Phone: Comment on above: CALCULATIONS OF REYNALDO MATED GFR ARE PERFORMED USING THE 2020 CKD-EPI STUDY REFIT EQUATION WITHOUT THE RACE VARIABLE FOR THE IDMS-TRACEABLE CREATININE METHODS.https://jasn.asnjournals.org/content//A SN.0843343511 CBCon 12-08-2022 Erythrocyte distribution width (RBC) [Ratio] 15.4 % High 11.5 - 14.5 [facility] Comment on above: Performed By: #### C BC ####[id number] [place] [address] Hematocrit (Bld) [Volume fraction] 28.2 % Low 41.0 - 52.0 [facility] Comment on above: Performed By: #### C BC ####[id number] [place] [address] Hemoglobin (Bld) [Mass/Vol] 8.7 g/dL Low 13.5 - 17.5 [facility] Comment on above: Performed By: #### C BC ####[id number] [place] [address] MCHC (RBC) [Mass/Vol] 30.9 g/dL Low 32.0 - 36.0 [facility] Comment on above: Performed By: #### C BC ####[id number] [place] [address] MCV (RBC) [Entitic vol] 100 fL Normal 80 - 100 [facility] Comment on above: Performed By: #### C BC ####[id number] [place] [address] NUCLEATED RBC 0.8 /100 WBC Normal 0.0-0.0 [facility] Comment on above: Performed By: #### C BC ####[id number] [place] [address] Platelets (Bld) [#/Vol] 294 10*3/uL Normal 150 - 450 [facility] Comment on above: Performed By: #### C BC ####[id number] [place] [address] RBC 2.83 x10E12/L Low 4.50 - 5.90 [facility] Comment on above: Performed By: #### C BC ####[id number] [place] [address] WBC (Bld) [#/Vol] 6.6 10*3/uL Normal 4.4 - 11.3 [facility] Comment on above: Performed By: #### C BC ####[id number] [place] [address] Clinical Event Note-ENT Flap Checkon 12-08-2022 Clinical Event Note-ENT Flap Check Normal [facility] Clinical Event Note-ENT Flap Check Normal [facility] Daily Progress Note-ENTon Daily Progress Note-ENT Normal [facility] Discharge [id number] [id number] Discharge Profile2 Normal [facility] GLUCOSE-POCTon 12-08-2022 Glucose [Mass/Vol] 109 mg/dL High 74 - 99 [facility] Comment on above: Performed By: #### G SUSAN ####[id number] [place] [address] Glucose [Mass/Vol] 166 mg/dL High 74 - 99 [facility] Comment on above: Performed By: #### G SUSAN ####[id number] [place] [address] Glucose [Mass/Vol] 181 mg/dL High 74 - 99 [facility] Comment on above: Performed By: #### G SUSAN ####[id number] [place] [address] Glucose [Mass/Vol] 185 mg/dL High 74 - 99 [facility] Comment on above: Performed By: #### G SUSAN ####[id number] [place] [address] Laboratory - Chemistry and C hemistry - challengeon 12-08-2022 Glucose [Mass/Vol] 109 mg/dL above high threshold 74 - 99 MG-Otolaryn gology-[facility] 4100 Work Phone: Glucose [Mass/Vol] 166 mg/dL above high threshold 74 - 99 MG-Otolaryn gology-[place] 4100 Work Phone: Glucose [Mass/Vol] 181 mg/dL above high threshold 74 - 99 MG-Otolaryn gology-[place] 4100 Work Phone: Glucose [Mass/Vol] 185 mg/dL above high threshold 74 - 99 MG-Otolaryn gology-[place] 4100 Work Phone: [phone] Laboratory - Hematology and Cell countson 12-08-2022 Erythrocyte distribution width (RBC) [Ratio] 15.4 % above high threshold See Below [facility]UCK[facility]tolaryn [facility] westogy[place] [address] Work Phone: [phone] Comment on above: Reference Range: 11. 5 - 14.5 Hematocrit (Bld) [Volume fraction] 28.2 % below low threshold See Below [facility]UCK[facility]tolaryn gologyJim [place] [address] Work Phone: [phone] Comment on above: Reference Range: 41. 0 - 52.0 Hemoglobin (Bld) [Mass/Vol] 8.7 g/dL below low threshold See Below [facility]tol[facility] [facility] [place] [address] Work Phone: [phone] Comment on above: Reference Range: 13. 5 - 17.5 MCHC (RBC) [Mass/Vol] 30.9 g/dL below low threshold See Below [facility] [place] [address] Work Phone: [phone] Comment on above: Reference Range: 32. 0 - 36.0 MCV (RBC) [Entitic vol] 100 fL 80 - 100 [facility] centeryJim [facility] [address] Work Phone: [phone] Platelets (Bld) [#/Vol] 294 10*3/uL 150 - 450 [facility] centeryJim [place] [address] Work Phone: [phone] RBC (Bld) [#/Vol] 2.83 {x10E12/L} below low threshold See Below [facility] [place] [address] Work Phone: [phone] Comment on above: Reference Range: 4.5 0 - 5.90 WBC (Bld) [#/Vol] 6.6 10*3/uL 4.4 - 11.3 MG-Mao larlisbet [place] [address] Work Phone: MAGNESIUMon 12-08-2022 Magnesium [Mass/Vol] 2.35 mg/dL Normal 1.60 - 2.40 [facility] Comment on above: Performed By: #### M G ####[id number] [place] [address] Magnesium, Serumon 3 Magnesium [Mass/Vol] 2.35 mg/dL See Below MG-O tolaryn [facility] 4100 Work Phone: Comment on above: Reference Range: 1.6 0 - 2.40 No Panel Informationon 12-08 0.8 {/100_WBC} 0.0-0.0 MG-Otolary n [facility] 4100 Work Phone: RENAL FUNCTION PANELon 12-08 Albumin [Mass/Vol] 3.0 g/dL Low 3.4 - 5.0 [facility] Comment on above: Performed By: #### R ENAL ####[id number] [place] [address] Anion gap [Moles/Vol] 13 mmol/L Normal 10 - 20 [facility] Comment on above: Performed By: #### R ENAL ####[id number] [place] [address] Calcium [Mass/Vol] 8.0 mg/dL Low 8.6 - 10.6 [facility] Comment on above: Performed By: #### R ENAL ####[id number] [place] [address] Chloride [Moles/Vol] 112 mmol/L High 98 - 107 [facility] Comment on above: Performed By: #### R ENAL ####[id number] [place] [address] Creatinine [Mass/Vol] 1.24 mg/dL Normal 0.50 - 1.30 [facility] Comment on above: Performed By: #### R ENAL ####[id number] [place] [address] GFR/1.73 sq M.predicted among non-blacks MDRD (S/P/Bld) [Vol rate/Area] 62 mL/min/{1.73_m2} Normal >90 [facility] Comment on above: Result Comment: CALC ULATIONS OF ESTIMATED GFR ARE PERFORMED USING THE 2020 CKD-EPI STUDY REFIT EQUATION WITHOUT THE RACE VARIABLE FOR THE IDMS-TRACEABLE CREATININE METHODS.https://jasn.asnjournals.org/content//A SN.9107229818 Performed By: #### R ENAL ####[id number] [place] [address] Glucose [Mass/Vol] 181 mg/dL High 74 - 99 [facility] Comment on above: Performed By: #### R ENAL ####[id number] [place] [address] HCO3 (Bld) [Moles/Vol] 24 mmol/L Normal 21 - 32 [facility] Comment on above: Performed By: #### R ENAL ####[id number] [place] [address] Phosphate [Mass/Vol] 2.1 mg/dL Low 2.5 - 4.9 [facility] Comment on above: Result Comment: The performance characteristics of phosphorus testing in heparinized plasma have been validated by the individual laboratory site where testing is performed. Testing on heparinized plasma is not approved by the FDA; however, such approval is not necessary. Performed By: #### R ENAL ####[id number] [place] [address] Potassium [Moles/Vol] 4.1 mmol/L Normal 3.5 - 5.3 [facility] Comment on above: Performed By: #### R ENAL ####[id number] [place] [address] Sodium [Moles/Vol] 145 mmol/L Normal 136 - 145 [facility] Comment on above: Performed By: #### R ENAL ####[id number] [place] [address] Urea nitrogen [Mass/Vol] 26 mg/dL High 6 - 23 [facility] Comment on above: Performed By: #### R ENAL ####[id number] [place] [address] Rehab Note-individual therap yon 12-08-2022 Rehab Note-individual therapy Normal [facility] Renal Function Panelon 12-08 Albumin BCP dye [Mass/Vol] 3.0 g/dL below low threshold 3.4 - 5.0 MG-Otolaryn gology-[facility]ag [facility] 4100 Work Phone: [phone] Anion gap [Moles/Vol] 13 mmol/L 10 - 20 MG- Otolaryn gology-[facility] 4100 Work Phone: [phone] Calcium [Mass/Vol] 8.0 mg/dL below low threshold 8.6 - 10.6 MG-Otolaryn gology-[facility]ag [facility] 4100 Work Phone: [phone] Chloride [Moles/Vol] 112 mmol/L above high threshold 98 - 107 MG-Otolaryn gology-[facility] 4100 Work Phone: [phone] CO2 [Moles/Vol] 24 mmol/L 21 - 32 MG-Otolar yn gology-[facility] 4100 Work Phone: [phone] Creatinine [Mass/Vol] 1.24 mg/dL See Below MG- Otolaryn gology-[facility] 4100 Work Phone: [phone] Comment on above: Reference Range: 0.5 0 - 1.30 Glucose [Mass/Vol] 181 mg/dL above high threshold 74 - 99 MG-Otolaryn gology-[place]ag [facility] 4100 Work Phone: [phone] Phosphate [Mass/Vol] 2.1 mg/dL below low threshold 2.5 - 4.9 MG-Otolaryn gology-Chag [facility] 4100 Work Phone: [phone] Comment on above: The performance violet acteristics of phosphorus testing in heparinized plasma have been validated by the individual laboratory site where testing is performed. Testing on heparinized plasma is not approved by the FDA; however, such approval is not necessary. Potassium [Moles/Vol] 4.1 mmol/L 3.5 - 5.3 [facility] 4[facility] Work Phone: Sodium [Moles/Vol] 145 mmol/L 136 - 145 MG-Mao laryn [facility] 4100 Work Phone: Urea nitrogen [Mass/Vol] 26 mg/dL above high threshold 6 - 23 [facility]aryn [facility] 4100 Work Phone: [phone] Renal Function Panel 62 {mL/min/1.73m2} >90 [facility] 4[facility] Work Phone: Comment on above: CALCULATIONS OF REYNALDO MATED GFR ARE PERFORMED USING THE 2020 CKD-EPI STUDY REFIT EQUATION WITHOUT THE RACE VARIABLE FOR THE IDMS-TRACEABLE CREATININE METHODS.https://jasn.asnjournals.org/content/early/A SN.7341527373 CBCon 12-07-2022 Erythrocyte distribution width (RBC) [Ratio] 15.5 % High 11.5 - 14.5 [facility] Comment on above: Performed By: #### C BC ####[id number] [place] [address] Hematocrit (Bld) [Volume fraction] 25.6 % Low 41.0 - 52.0 [facility] Comment on above: Performed By: #### C BC ####[id number] [place] [address] Hemoglobin (Bld) [Mass/Vol] 8.2 g/dL Low 13.5 - 17.5 [facility] Comment on above: Performed By: #### C BC ####[id number] [place] [address] MCHC (RBC) [Mass/Vol] 32.0 g/dL Normal 32.0 - 36.0 [facility] Comment on above: Performed By: #### C BC ####[id number] [place] [address] MCV (RBC) [Entitic vol] 100 fL Normal 80 - 100 [facility] Comment on above: Performed By: #### C BC ####[id number] [place] [address] NUCLEATED RBC 0.3 /100 WBC Normal 0.0-0.0 [facility] Comment on above: Performed By: #### C BC ####[id number] [place] [address] Platelets (Bld) [#/Vol] 250 10*3/uL Normal 150 - 450 [facility] Comment on above: Performed By: #### C BC ####[id number] [place] [address] RBC 2.56 x10E12/L Low 4.50 - 5.90 [facility] Comment on above: Performed By: #### C BC ####[id number] [place] [address] WBC (Bld) [#/Vol] 7.1 10*3/uL Normal 4.4 - 11.3 [facility] Comment on above: Performed By: #### C BC ####[id number] [place] Clinical Event Note-ENT Flap Checkon 12-07-2022 Clinical Event Note-ENT Flap Check Normal [facility] Clinical Event Note-ENT Flap Check Normal [facility] Daily Progress Note-ENTon Daily Progress Note-ENT Normal [facility] Daily Progress Note-Perioper ative Medicineon 12-07-2022 Daily Progress Note-Perioperative Medicine Normal [facility] GLUCOSE-POCTon 12-07-2022 Glucose [Mass/Vol] 201 mg/dL High 74 - 99 [facility] Comment on above: Performed By: #### G SUSAN ####[id number] [place] [address] Glucose [Mass/Vol] 243 mg/dL High 74 - 99 [facility] Comment on above: Performed By: #### G SUSAN ####[id number] [place] [address] Glucose [Mass/Vol] 141 mg/dL High 74 - 99 MG-[place] laryn gology-[place] [address] Work Phone: Comment on above: Performed By: #### G SUSAN ####[id number] [place] [address] Glucose [Mass/Vol] 139 mg/dL High 74 - 99 [facility] Comment on above: Performed By: #### G SUSAN ####[id number] [place] [address] Laboratory - Chemistry and C hemistry - challengeon 12-07-2022 Glucose [Mass/Vol] 201 mg/dL above high threshold 74 - 99 MG-Otolaryn gology-[place]ag [place] [address] Work Phone: Glucose [Mass/Vol] 243 mg/dL above high threshold 74 - 99 MG-Otolaryn gology-[place] [address] Work Phone: Glucose [Mass/Vol] 139 mg/dL above high threshold 74 - 99 MG-Otolaryn gology-[place] [address] Work Phone: Laboratory - Hematology and Cell countson 12-07-2022 Erythrocyte distribution width (RBC) [Ratio] 15.5 % above high threshold See Below MG-Otolaryn gology-[place] [address] Work Phone: Comment on above: Reference Range: 11. 5 - 14.5 Hematocrit (Bld) [Volume fraction] 25.6 % below low threshold See Below MG-Otolaryn gology-[facility] 4100 Work Phone: Comment on above: Reference Range: 41. 0 - 52.0 Hemoglobin (Bld) [Mass/Vol] 8.2 g/dL below low threshold See Below MG-Otolaryn gology-[facility] 410 Work Phone: Comment on above: Reference Range: 13. 5 - 17.5 MCHC (RBC) [Mass/Vol] 32.0 g/dL See Below MG- Otolaryn gology-[facility] 4100 Work Phone: Comment on above: Reference Range: 32. 0 - 36.0 MCV (RBC) [Entitic vol] 100 fL 80 - 100 MG-Otolaryn gology-[facility] 4100 Work Phone: [phone] Platelets (Bld) [#/Vol] 250 10*3/uL 150 - 450 MG-Otolaryn gology-[facility] 4100 Work Phone: [phone] RBC (Bld) [#/Vol] 2.56 {x10E12/L} below low threshold See Below MG-Otolaryn gology-[facility] 4100 Work Phone: Comment on above: Reference Range: 4.5 0 - 5.90 WBC (Bld) [#/Vol] 7.1 10*3/uL 4.4 - 11.3 [facility] [facility] 4100 Work Phone: MAGNESIUMon 12-07-2022 Magnesium [Mass/Vol] 2.28 mg/dL Normal 1.60 - 2.40 [facility] Comment on above: Performed By: #### M G ####[id number] [place] [address] Magnesium, Serumon 3 Magnesium [Mass/Vol] 2.28 mg/dL See Below [facility] 4100 Work Phone: [phone] Comment on above: Reference Range: 1.6 0 - 2.40 No Panel Informationon 12-07 0.3 {/100_WBC} 0.0-0.0 [facility] n [facility] 4100 Work Phone: RENAL FUNCTION PANELon 12-07 Albumin [Mass/Vol] 3.1 g/dL Low 3.4 - 5.0 [facility] Comment on above: Performed By: #### R ENAL ####[id number] [place] [address] Anion gap [Moles/Vol] 13 mmol/L Normal 10 - 20 [facility] Comment on above: Performed By: #### R ENAL ####[id number] [place] [address] Calcium [Mass/Vol] 8.0 mg/dL Low 8.6 - 10.6 [facility] Comment on above: Performed By: #### R ENAL ####[id number] [place] [address] Chloride [Moles/Vol] 112 mmol/L High 98 - 107 [facility] Comment on above: Performed By: #### R ENAL ####[id number] [place] [address] Creatinine [Mass/Vol] 1.26 mg/dL Normal 0.50 - 1.30 [facility] Comment on above: Performed By: #### R ENAL ####[id number] [place] [address] GFR/1.73 sq M.predicted among non-blacks MDRD (S/P/Bld) [Vol rate/Area] 61 mL/min/{1.73_m2} Normal >90 [facility] Comment on above: Result Comment: CALC ULATIONS OF ESTIMATED GFR ARE PERFORMED USING THE 2020 CKD-EPI STUDY REFIT EQUATION WITHOUT THE RACE VARIABLE FOR THE IDMS-TRACEABLE CREATININE METHODS.https://jasn.asnjournals.org/content/early//A SN.6134528884 Performed By: #### R ENAL ####[id number] [place] [address] Glucose [Mass/Vol] 150 mg/dL High 74 - 99 [facility] Comment on above: Performed By: #### R ENAL ####[id number] [place] [address] HCO3 (Bld) [Moles/Vol] 24 mmol/L Normal 21 - 32 [facility] Comment on above: Performed By: #### R ENAL ####[id number] [place] [address] Phosphate [Mass/Vol] 1.7 mg/dL Low 2.5 - 4.9 [facility] Comment on above: Result Comment: The performance characteristics of phosphorus testing in heparinized plasma have been validated by the individual laboratory site where testing is performed. Testing on heparinized plasma is not approved by the FDA; however, such approval is not necessary. Performed By: #### R ENAL ####[id number] [place] [address] Potassium [Moles/Vol] 3.8 mmol/L Normal 3.5 - 5.3 [facility] Comment on above: Performed By: #### R ENAL ####[id number] [place] [address] Sodium [Moles/Vol] 145 mmol/L Normal 136 - 145 [facility] Comment on above: Performed By: #### R ENAL ####[id number] [place] [address] Urea nitrogen [Mass/Vol] 27 mg/dL High 6 - 23 [facility] Comment on above: Performed By: #### R ENAL ####[id number] [place] [address] Renal Function Panelon 12-07 Albumin BCP dye [Mass/Vol] 3.1 g/dL below low threshold 3.4 - 5.0 MG-Otolaryn gology-Chag [facility] 4100 Work Phone: [phone] Anion gap [Moles/Vol] 13 mmol/L 10 - 20 MG- Otolaryn gology-[place]ag [facility] 4100 Work Phone: [phone] Calcium [Mass/Vol] 8.0 mg/dL below low threshold 8.6 - 10.6 MG-Otolaryn gology-[facility] 4100 Work Phone: Chloride [Moles/Vol] 112 mmol/L above high threshold 98 - 107 [facility] 4100 Work Phone: [phone] CO2 [Moles/Vol] 24 mmol/L 21 - 32 MG-Otolar yn [facility] westhaileyyAlt[facility] 4100 Work Phone: [phone] Creatinine [Mass/Vol] 1.26 mg/dL See Below [facility]- [facility]aryn [facility] 410 Work Phone: [phone] Comment on above: Reference Range: 0.5 0 - 1.30 Glucose [Mass/Vol] 150 mg/dL above high threshold 74 - 99 MG-[place]tolaryn [place] [address] Work Phone: [phone] Phosphate [Mass/Vol] 1.7 mg/dL below low threshold 2.5 - 4.9 [facility] 410 Work Phone: [phone] Comment on above: The performance violet acteristics of phosphorus testing in heparinized plasma have been validated by the individual laboratory site where testing is performed. Testing on heparinized plasma is not approved by the FDA; however, such approval is not necessary. Potassium [Moles/Vol] 3.8 mmol/L 3.5 - 5.3 [facility] 410 Work Phone: [phone] Sodium [Moles/Vol] 145 mmol/L 136 - 145 MG-[place] larlisbet [facility] 4100 Work Phone: [phone] Urea nitrogen [Mass/Vol] 27 mg/dL above high threshold 6 - 23 [facility] 4100 Work Phone: [phone] Renal Function Panel 61 {mL/min/1.73m2} >90 MG-[place]tolaryn [place] [address] Work Phone: [phone] Comment on above: CALCULATIONS OF REYNALDO MATED GFR ARE PERFORMED USING THE 2020 CKD-EPI STUDY REFIT EQUATION WITHOUT THE RACE VARIABLE FOR THE IDMS-TRACEABLE CREATININE METHODS.https://jasn.asnjournals.org/content/early//A SN.2866798881 CBCon 12-06-2022 Erythrocyte distribution width (RBC) [Ratio] 15.8 % High 11.5 - 14.5 [facility] Comment on above: Performed By: #### C BC ####[id number] [place] [address] Hematocrit (Bld) [Volume fraction] 26.1 % Low 41.0 - 52.0 [facility] Comment on above: Performed By: #### C BC ####[id number] [place] [address] Hemoglobin (Bld) [Mass/Vol] 8.2 g/dL Low 13.5 - 17.5 [facility] Comment on above: Performed By: #### C BC ####[id number] [place] [address] MCHC (RBC) [Mass/Vol] 31.4 g/dL Low 32.0 - 36.0 [facility] Comment on above: Performed By: #### C BC ####[id number] [place] [address] MCV (RBC) [Entitic vol] 102 fL High 80 - 100 [facility] Comment on above: Performed By: #### C BC ####[id number] [place] [address] NUCLEATED RBC 0.0 /100 WBC Normal 0.0-0.0 [facility] Comment on above: Performed By: #### C BC ####[id number] [place] [address] Platelets (Bld) [#/Vol] 238 10*3/uL Normal 150 - 450 [facility] Comment on above: Performed By: #### C BC ####[id number] [place] [address] RBC 2.57 x10E12/L Low 4.50 - 5.90 [facility] Comment on above: Performed By: #### C BC ####[id number] [place] [address] WBC (Bld) [#/Vol] 9.8 10*3/uL Normal 4.4 - 11.3 [facility] Comment on above: Performed By: #### C BC ####[id number] [place] [address] Daily Progress Note-ENTon Daily Progress Note-ENT Normal [facility] Daily Progress Note-Perioper ative Medicineon 12-06-2022 Daily Progress Note-Perioperative Medicine Normal [facility] GLUCOSE-POCTon 12-06-2022 Glucose [Mass/Vol] 153 mg/dL High 74 - 99 [facility] Comment on above: Performed By: #### G SUSAN ####[id number] [place] [address] Glucose [Mass/Vol] 171 mg/dL High 74 - 99 [facility] Comment on above: Performed By: #### G SUSAN ####[id number] [place] [address] Glucose [Mass/Vol] 118 mg/dL High 74 - 99 [facility] Comment on above: Performed By: #### G SUSAN ####[id number] [place] [address] Glucose [Mass/Vol] 129 mg/dL High 74 - 99 [facility] Comment on above: Performed By: #### G SUSAN ####[id number] [place] [address] Laboratory - Chemistry and C hemistry - challengeon 12-06-2022 Glucose [Mass/Vol] 153 mg/dL above high threshold 74 - 99 MG-Otolaryn gology-Chag [facility] 4100 Work Phone: Glucose [Mass/Vol] 171 mg/dL above high threshold 74 - 99 MG-Otolaryn gology-[facility]ag [facility] 4100 Work Phone: Glucose [Mass/Vol] 118 mg/dL above high threshold 74 - 99 MG-Otolaryn gology-Chag [facility] 4100 Work Phone: Glucose [Mass/Vol] 129 mg/dL above high threshold 74 - 99 MG-Otolaryn gology-[place] [address] Work Phone: Laboratory - Hematology and Cell countson 12-06-2022 Erythrocyte distribution width (RBC) [Ratio] 15.8 % above high threshold See Below MG-Otolaryn gology-[place] [address] Work Phone: Comment on above: Reference Range: 11. 5 - 14.5 Hematocrit (Bld) [Volume fraction] 26.1 % below low threshold See Below -Otolaryn gology-[place] [address] Work Phone: Comment on above: Reference Range: 41. 0 - 52.0 Hemoglobin (Bld) [Mass/Vol] 8.2 g/dL below low threshold See Below MG-Otolaryn gology-[place] [address] Work Phone: Comment on above: Reference Range: 13. 5 - 17.5 MCHC (RBC) [Mass/Vol] 31.4 g/dL below low threshold See Below MG-[place]aryn [place]ology[place] [address] Work Phone: Comment on above: Reference Range: 32. 0 - 36.0 MCV (RBC) [Entitic vol] 102 fL above high threshold 80 - 100 MG-[place]tolaryn [place]ology[place] [address] Work Phone: Platelets (Bld) [#/Vol] 238 10*3/uL 150 - 450 MG-[place]tolaryn gologyJames [place] [address]2750 Work Phone: RBC (Bld) [#/Vol] 2.57 {x10E12/L} below low threshold See Below MG-Otolaryn gology-[facility] 410 Work Phone: Comment on above: Reference Range: 4.5 0 - 5.90 WBC (Bld) [#/Vol] 9.8 10*3/uL 4.4 - 11.3 MG-Mao laryn gology-[facility] 4100 Work Phone: MAGNESIUMon 12-06-2022 Magnesium [Mass/Vol] 2.39 mg/dL Normal 1.60 - 2.40 [facility] Comment on above: Performed By: #### M G ####[id number] [place] [address] Magnesium, Serumon 3 Magnesium [Mass/Vol] 2.39 mg/dL See Below MG-O tolaryn [facility] 4100 Work Phone: Comment on above: Reference Range: 1.6 0 - 2.40 No Panel Informationon 12-06 0.0 {/100_WBC} 0.0-0.0 MG-Otolary n [facility] 4100 Work Phone: RENAL FUNCTION PANELon 12-06 Albumin [Mass/Vol] 3.1 g/dL Low 3.4 - 5.0 [facility] Comment on above: Performed By: #### R ENAL ####[id number] [place] [address] Anion gap [Moles/Vol] 15 mmol/L Normal 10 - 20 [facility] Comment on above: Performed By: #### R ENAL ####[id number] [place] [address] Calcium [Mass/Vol] 8.0 mg/dL Low 8.6 - 10.6 [facility] Comment on above: Performed By: #### R ENAL ####[id number] [place] [address] Chloride [Moles/Vol] 112 mmol/L High 98 - 107 [facility] Comment on above: Performed By: #### R ENAL ####[id number] [place] [address] Creatinine [Mass/Vol] 1.59 mg/dL High 0.50 - 1.30 [facility] Comment on above: Performed By: #### R ENAL ####[id number] [place] [address] GFR/1.73 sq M.predicted among non-blacks MDRD (S/P/Bld) [Vol rate/Area] 46 mL/min/{1.73_m2} Abnormal >90 [facility] Comment on above: Result Comment: CALC ULATIONS OF ESTIMATED GFR ARE PERFORMED USING THE 2020 CKD-EPI STUDY REFIT EQUATION WITHOUT THE RACE VARIABLE FOR THE IDMS-TRACEABLE CREATININE METHODS.https://jasn.asnjournals.org/content/early//A SN.9578419706 Performed By: #### R ENAL ####[id number] [place] [address] Glucose [Mass/Vol] 112 mg/dL High 74 - 99 [facility] Comment on above: Performed By: #### R ENAL ####[id number] [place] [address] HCO3 (Bld) [Moles/Vol] 23 mmol/L Normal 21 - 32 [facility] Comment on above: Performed By: #### R ENAL ####[id number] [place] [address] Phosphate [Mass/Vol] 1.7 mg/dL Low 2.5 - 4.9 [facility] Comment on above: Result Comment: The performance characteristics of phosphorus testing in heparinized plasma have been validated by the individual laboratory site where testing is performed. Testing on heparinized plasma is not approved by the FDA; however, such approval is not necessary. Performed By: #### R ENAL ####[id number] [place] [address] Potassium [Moles/Vol] 3.9 mmol/L Normal 3.5 - 5.3 [facility] Comment on above: Performed By: #### R ENAL ####[id number] [place] [address] Sodium [Moles/Vol] 146 mmol/L High 136 - 145 [facility] Comment on above: Performed By: #### R ENAL ####[id number] [place] [address] Urea nitrogen [Mass/Vol] 34 mg/dL High 6 - 23 [facility] Comment on above: Performed By: #### R ENAL ####[id number] [place] [address] Renal Function Panelon 12-06 Albumin BCP dye [Mass/Vol] 3.1 g/dL below low threshold 3.4 - 5.0 MG-Otolaryn gology-Chag [facility] 4100 Work Phone: [phone] Anion gap [Moles/Vol] 15 mmol/L 10 - 20 MG- Otolaryn gology-[facility] 4100 Work Phone: [phone] Calcium [Mass/Vol] 8.0 mg/dL below low threshold 8.6 - 10.6 MG-Otolaryn gology-[facility] 4100 Work Phone: [phone] Chloride [Moles/Vol] 112 mmol/L above high threshold 98 - 107 MG-Otolaryn gology-[facility] 4100 Work Phone: [phone] CO2 [Moles/Vol] 23 mmol/L 21 - 32 MG-Otolar yn gology-[facility] 4100 Work Phone: [phone] Creatinine [Mass/Vol] 1.59 mg/dL above high threshold See Below MG-Otolaryn gology-[facility] 4100 Work Phone: [phone] Comment on above: Reference Range: 0.5 0 - 1.30 Glucose [Mass/Vol] 112 mg/dL above high threshold 74 - 99 MG-Otolaryn gology-Chag [facility] 4100 Work Phone: [phone] Phosphate [Mass/Vol] 1.7 mg/dL below low threshold 2.5 - 4.9 MG-Otolaryn gology-[facility] 4100 Work Phone: [phone] Comment on above: The performance violet acteristics of phosphorus testing in heparinized plasma have been validated by the individual laboratory site where testing is performed. Testing on heparinized plasma is not approved by the FDA; however, such approval is not necessary. Potassium [Moles/Vol] 3.9 mmol/L 3.5 - 5.3 [facility] 4100 Work Phone: Sodium [Moles/Vol] 146 mmol/L above high threshold 136 - 145 [facility] 4100 Work Phone: Urea nitrogen [Mass/Vol] 34 mg/dL above high threshold 6 - 23 [facility] 4[facility] Work Phone: Renal Function Panel 46 {mL/min/1.73m2} Abnormal >90 M[facility]tbunnlevelyn [facility] 4100 Work Phone: Comment on above: CALCULATIONS OF REYNALDO MATED GFR ARE PERFORMED USING THE 2020 CKD-EPI STUDY REFIT EQUATION WITHOUT THE RACE VARIABLE FOR THE IDMS-TRACEABLE CREATININE METHODS.https://jasn.asnjournals.org/content/early//A SN.4444275046 CBCon 12-05-2022 Erythrocyte distribution width (RBC) [Ratio] 15.7 % High 11.5 - 14.5 [facility] 4100 Work Phone: Comment on above: Reference Range: 11. 5 - 14.5 Performed By: #### C BC ####[id number] [place] [address] Hematocrit (Bld) [Volume fraction] 26.9 % Low 41.0 - 52.0 MG[facility]aryn [facility] 4100 Work Phone: Comment on above: Reference Range: 41. 0 - 52.0 Performed By: #### C BC ####[id number] [place] [address] Hemoglobin (Bld) [Mass/Vol] 8.5 g/dL Low 13.5 - 17.5 [facility] 4100 Work Phone: [phone] Comment on above: Reference Range: 13. 5 - 17.5 Performed By: #### C BC ####[id number] [place] [address] MCHC (RBC) [Mass/Vol] 31.6 g/dL Low 32.0 - 36.0 MG -[facility]aryn [facility] 4100 Work Phone: [phone] Comment on above: Reference Range: 32. 0 - 36.0 Performed By: #### C BC ####[id number] [place] [address] MCV (RBC) [Entitic vol] 102 fL High 80 - 100 MG-Otolaryn [facility] 4100 Work Phone: [phone] Comment on above: Performed By: #### C BC ####[id number] [place] [address] NUCLEATED RBC 0.1 /100 WBC Normal 0.0-0.0 [facility] Comment on above: Performed By: #### C BC ####[id number] [place] [address] Platelets (Bld) [#/Vol] 246 10*3/uL Normal 150 - 450 -Otolaryn [facility] 4100 Work Phone: [phone] Comment on above: Performed By: #### C BC ####[id number] [place] [address] RBC 2.65 x10E12/L Low 4.50 - 5.90 [facility] Comment on above: Performed By: #### C BC ####[id number] [place] [address] WBC (Bld) [#/Vol] 16.5 10*3/uL High 4.4 - 11.3 MG-Ot olaryn [facility] 4100 Work Phone: [phone] Comment on above: Performed By: #### C BC ####[id number] [place] [address] Clinical Event Note-ENT Flap Checkon 12-05-2022 Clinical Event Note-ENT Flap Check Normal [facility] Daily Progress Note-ENTon Daily Progress Note-ENT Normal [facility] GLUCOSE-POCTon 12-05-2022 Glucose [Mass/Vol] 169 mg/dL High 74 - 99 [facility] Comment on above: Performed By: #### G USSAN ####[id number] [place] [address] Glucose [Mass/Vol] 109 mg/dL High 74 - 99 [facility] Comment on above: Performed By: #### G SUSAN ####[id number] [place] [address] Glucose [Mass/Vol] 110 mg/dL High 74 - 99 [facility] Comment on above: Performed By: #### G SUSAN ####[id number] [place] [address] Glucose [Mass/Vol] 152 mg/dL High 74 - 99 [facility] Comment on above: Performed By: #### G SUSAN ####[id number] [place] [address] Glucose [Mass/Vol] 148 mg/dL High 74 - 99 [facility] Comment on above: Performed By: #### G SUSAN ####[id number] [place] [address] Laboratory - Chemistry and C hemistry - challengeon 12-05-2022 Glucose [Mass/Vol] 169 mg/dL above high threshold 74 - 99 MG-Otolaryn gology-[facility] 4100 Work Phone: [phone] Glucose [Mass/Vol] 109 mg/dL above high threshold 74 - 99 MG-Otolaryn gology-[facility] 4100 Work Phone: [phone] Glucose [Mass/Vol] 110 mg/dL above high threshold 74 - 99 MG-Otolaryn gology-[facility] 4100 Work Phone: Glucose [Mass/Vol] 152 mg/dL above high threshold 74 - 99 [facility] 410 Work Phone: Laboratory - Hematology and Cell countson 12-05-2022 RBC (Bld) [#/Vol] 2.65 {x10E12/L} below low threshold See Below MG-[facility]tolaryn [facility] 410 Work Phone: Comment on above: Reference Range: 4.5 0 - 5.90 Magnesium, Serumon 3 Magnesium [Mass/Vol] 2.53 mg/dL High 1.60 - 2.40 [facility]- [facility] 410 Work Phone: Comment on above: Reference Range: 1.6 0 - 2.40 Performed By: #### M G ####[id number] [place] [address] No Panel Informationon 12-05 0.1 {/100_WBC} 0.0-0.0 MG-[place]ary n [facility] [place] [address] Work Phone: Nutrition Therapy-Assessment on 12-05-2022 Nutrition Therapy-Assessment Normal [facility] OT Evaluation v2-occupationa l therapyon 12-05-2022 OT Evaluation v2-occupational therapy Normal [facility] PT Evaluation v2-individual therapyon 12-05-2022 PT Evaluation v2-individual therapy Normal [facility] RENAL FUNCTION PANELon 12-05 Albumin [Mass/Vol] 3.3 g/dL Low 3.4 - 5.0 [facility] Comment on above: Performed By: #### R ENAL ####[id number] [place] [address] GFR/1.73 sq M.predicted among non-blacks MDRD (S/P/Bld) [Vol rate/Area] 37 mL/min/{1.73_m2} Abnormal >90 [facility] Comment on above: Result Comment: CALC ULATIONS OF ESTIMATED GFR ARE PERFORMED USING THE 2020 CKD-EPI STUDY REFIT EQUATION WITHOUT THE RACE VARIABLE FOR THE IDMS-TRACEABLE CREATININE METHODS.https://jasn.asnjournals.org/content/early/A SN.8871716445 Performed By: #### R ENAL ####[id number] [place] [address] HCO3 (Bld) [Moles/Vol] 24 mmol/L Normal 21 - 32 [facility] Comment on above: Performed By: #### R ENAL ####[id number] [place] [address] Renal Function Panelon 12-05 Albumin BCP dye [Mass/Vol] 3.3 g/dL below low threshold 3.4 - 5.0 MG[facility]aryn [facility] 4100 Work Phone: Anion gap [Moles/Vol] 14 mmol/L Normal 10 - 20 [facility]- [facility] 4100 Work Phone: Comment on above: Performed By: #### R ENAL ####[id number] [place] [address] Calcium [Mass/Vol] 8.3 mg/dL Low 8.6 - 10.6 MG-[place] laryn [facility] 4100 Work Phone: Comment on above: Performed By: #### R ENAL ####[id number] [place] [address] Chloride [Moles/Vol] 110 mmol/L High 98 - 107 MG-O tolaryn [facility] 4100 Work Phone: Comment on above: Performed By: #### R ENAL ####[id number] [place] [address] CO2 [Moles/Vol] 24 mmol/L 21 - 32 MG[facility]olar yn [facility] 4100 Work Phone: Creatinine [Mass/Vol] 1.94 mg/dL High 0.50 - 1.30 MG -[facility] 4100 Work Phone: Comment on above: Reference Range: 0.5 0 - 1.30 Performed By: #### R ENAL ####[id number] [place] [address] Glucose [Mass/Vol] 111 mg/dL High 74 - 99 MG-Mao laryn [facility] 4100 Work Phone: Comment on above: Performed By: #### R ENAL ####[id number] [place] [address] Phosphate [Mass/Vol] 3.2 mg/dL Normal 2.5 - 4.9 MG-O tolaryn [facility] 4100 Work Phone: Comment on above: The performance violet acteristics of phosphorus testing in heparinized plasma have been validated by the individual laboratory site where testing is performed. Testing on heparinized plasma is not approved by the FDA; however, such approval is not necessary. Result Comment: The performance characteristics of phosphorus testing in heparinized plasma have been validated by the individual laboratory site where testing is performed. Testing on heparinized plasma is not approved by the FDA; however, such approval is not necessary. Performed By: #### R ENAL ####[id number] [place] [address] Potassium [Moles/Vol] 4.1 mmol/L Normal 3.5 - 5.3 MG- [facility] 4100 Work Phone: Comment on above: Performed By: #### R ENAL ####[id number] [place] [address] Sodium [Moles/Vol] 144 mmol/L Normal 136 - 145 MG-Mao [facility] 4100 Work Phone: Comment on above: Performed By: #### R ENAL ####[id number] [place] [address] Urea nitrogen [Mass/Vol] 44 mg/dL High 6 - 23 MG-[facility] 4100 Work Phone: Comment on above: Performed By: #### R ENAL ####[id number] [place] [address] Renal Function Panel 37 {mL/min/1.73m2} Abnormal >90 MG-[facility] 4100 Work Phone: Comment on above: CALCULATIONS OF REYNALDO MATED GFR ARE PERFORMED USING THE 2020 CKD-EPI STUDY REFIT EQUATION WITHOUT THE RACE VARIABLE FOR THE IDMS-TRACEABLE CREATININE METHODS.https://jasn.asnjournals.org/content/early//A SN.0394080489 ARTERIAL FULL PANELon 2022 Anion gap [Moles/Vol] 14 mmol/L Normal 10 - 25 [facility] Comment on above: Order Comment: PH CA LLED TO GRISEL BETH, 12/04/2022 11:06 Performed By: #### A FPA4 ####[id number] [place] [address] BASE EXCESS-BLOOD -3.8 mmol/L Low -2.0 - 3.0 [facility] Comment on above: Order Comment: PH CA LLED TO GRISEL BETH, 12/04/2022 11:06 Performed By: #### A FPA4 ####[id number] [place] [address] BICARB, CALCULATED 24.8 mmol/L Normal 22.0 - 26.0 [facility] Comment on above: Order Comment: PH CA LLED TO GRISEL BETH, 12/04/2022 11:06 Performed By: #### A FPA4 ####[id number] [place] [address] CALCIUM,IONIZED 1.14 mmol/L Normal 1.10 - 1.33 [facility] Comment on above: Order Comment: PH CA LLED TO GRISEL BETH, 12/04/2022 11:06 Performed By: #### A FPA4 ####[id number] [place] [address] Chloride [Moles/Vol] 106 mmol/L Normal 98 - 107 [facility] Comment on above: Order Comment: PH CA LLED TO GRISEL BETH, 12/04/2022 11:06 Performed By: #### A FPA4 ####[id number] [place] [address] Glucose [Mass/Vol] 302 mg/dL High 74 - 99 [facility] Comment on above: Order Comment: PH CA LLED TO GRISEL BETH, 12/04/2022 11:06 Performed By: #### A FPA4 ####[id number] [place] [address] Hematocrit (Bld) [Volume fraction] 33.0 % Low 41.0 - 52.0 [facility] Comment on above: Order Comment: PH CA LLED TO GRISEL BETH, 12/04/2022 11:06 Performed By: #### A FPA4 ####[id number] [place] [address] Hemoglobin (Bld) [Mass/Vol] 11.1 g/dL Low 13.5 - 17.5 [facility] Comment on above: Order Comment: PH CA LLED TO GRISEL BETH, 12/04/2022 11:06 Performed By: #### A FPA4 ####[id number] [place] [address] Lactate [Moles/Vol] 1.7 mmol/L Normal 0.4 - 2.0 [facility] Comment on above: Order Comment: PH CA LLED TO GRISEL BETH, 12/04/2022 11:06 Performed By: #### A FPA4 ####[id number] [place] [address] OXY HGB 93.9 % Low 94.0 - 98.0 [facility] Comment on above: Order Comment: PH CA LLED TO GRISEL BETH, 12/04/2022 11:06 Performed By: #### A FPA4 ####[id number] [place] [address] Oxygen (Bld) [Partial pressure] 85 mm[Hg] Normal 85 - 95 [facility] Comment on above: Order Comment: PH CA LLED TO GRISEL PASTOROX, 12/04/2022 11:06 Performed By: #### A FPA4 ####[id number] [place] [address] PATIENT TEMPERATURE 37.0 degrees C Normal U [facility] Comment on above: Order Comment: PH CA LLED TO GRISEL BETH, 12/04/2022 11:06 Result Comment: NOTE : PATIENT RESULTS ARE NOT CORRECTED FOR TEMPERATURE. Performed By: #### A FPA4 ####[id number] [place] [address] PCO2 62 mmHg High 38 - 42 [facility] Comment on above: Order Comment: PH CA LLED TO GRISEL BETH, 12/04/2022 11:06 Performed By: #### A FPA4 ####[id number] [place] [address] pH (Bld) 7.21 [pH] Critically low 7.38 - 7.42 [facility] Comment on above: Order Comment: PH CA LLED TO GRISEL PASTOROX, 12/04/2022 11:06 Result Comment: PH C ALLED TO GRISEL BETH, 12/04/2022 11:06 Performed By: #### A FPA4 ####[id number] [place] [address] Potassium [Moles/Vol] 5.5 mmol/L High 3.5 - 5.3 [facility] Comment on above: Order Comment: PH CA LLED TO GRISEL BETH, 12/04/2022 11:06 Performed By: #### A FPA4 ####[id number] [place] [address] SO2 97 % Normal 94 - 100 [facility] Comment on above: Order Comment: PH CA LLED TO GRISEL BETH, 12/04/2022 11:06 Performed By: #### A FPA4 ####[id number] [place] [address] Sodium [Moles/Vol] 139 mmol/L Normal 136 - 145 [facility] Comment on above: Order Comment: PH CA LLED TO GRISEL EBTH, 12/04/2022 11:06 Performed By: #### A FPA4 ####[id number] [place] [address] Admission Risk Screen - Adul ton 12-04-2022 Admission Risk Screen - Adult Normal [facility] BASIC METABOLIC PANELon 11-16 Anion gap [Moles/Vol] 17 mmol/L Normal 10 - 20 [facility] Comment on above: Performed By: #### B MP ####[id number] [place] [address] Calcium [Mass/Vol] 8.5 mg/dL Low 8.6 - 10.6 [facility] Comment on above: Performed By: #### B MP ####[id number] [place] [address] Chloride [Moles/Vol] 106 mmol/L Normal 98 - 107 [facility] Comment on above: Performed By: #### B MP ####[id number] [place] [address] Creatinine [Mass/Vol] 2.25 mg/dL High 0.50 - 1.30 [facility] Comment on above: Performed By: #### B MP ####[id number] [place] [address] GFR/1.73 sq M.predicted among non-blacks MDRD (S/P/Bld) [Vol rate/Area] 31 mL/min/{1.73_m2} Abnormal >90 [facility] Comment on above: Result Comment: CALC ULATIONS OF ESTIMATED GFR ARE PERFORMED USING THE 2020 CKD-EPI STUDY REFIT EQUATION WITHOUT THE RACE VARIABLE FOR THE IDMS-TRACEABLE CREATININE METHODS.https://jasn.asnjournals.org/content//A SN.2015007376 Performed By: #### B MP ####[id number] [place] [address] Glucose [Mass/Vol] 238 mg/dL High 74 - 99 [facility] Comment on above: Performed By: #### B MP ####[id number] [place] [address] HCO3 (Bld) [Moles/Vol] 25 mmol/L Normal 21 - 32 [facility] Comment on above: Performed By: #### B MP ####[id number] [place] [address] Potassium [Moles/Vol] 4.9 mmol/L Normal 3.5 - 5.3 [facility] Comment on above: Performed By: #### B MP ####[id number] [place] [address] Sodium [Moles/Vol] 143 mmol/L Normal 136 - 145 [facility] Comment on above: Performed By: #### B MP ####[id number] [place] [address] Urea nitrogen [Mass/Vol] 46 mg/dL High 6 - 23 [facility] Comment on above: Performed By: #### B MP ####[id number] [place] [address] CBCon 12-04-2022 HCT Canceled Normal [facility] Comment on above: Order Comment: TEST CBC WAS CANCELLED, 12/04/2022 21:07 not collected. Performed By: #### C BC ####[id number] [place] [address] HGB Canceled Normal [facility] Comment on above: Order Comment: TEST CBC WAS CANCELLED, 12/04/2022 21:07 not collected. Performed By: #### C BC ####[id number] [place] [address] MCHC Canceled Normal [facility] Comment on above: Order Comment: TEST CBC WAS CANCELLED, 12/04/2022 21:07 not collected. Performed By: #### C BC ####[id number] [place] [address] MCV Canceled Normal [facility] Comment on above: Order Comment: TEST CBC WAS CANCELLED, 12/04/2022 21:07 not collected. Performed By: #### C BC ####[id number] [place] [address] NUCLEATED RBC Canceled Normal [facility] Comment on above: Order Comment: TEST CBC WAS CANCELLED, 12/04/2022 21:07 not collected. Performed By: #### C BC ####[id number] [place] [address] PLT Canceled Normal [facility] Comment on above: Order Comment: TEST CBC WAS CANCELLED, 12/04/2022 21:07 not collected. Performed By: #### C BC ####[id number] [place] [address] RBC Canceled Normal [facility] Comment on above: Order Comment: TEST CBC WAS CANCELLED, 12/04/2022 21:07 not collected. Performed By: #### C BC ####[id number] [place] [address] RDW-CV Canceled Normal [facility] Comment on above: Order Comment: TEST CBC WAS CANCELLED, 12/04/2022 21:07 not collected. Performed By: #### C BC ####[id number] [place] [address] WBC Canceled Normal [facility] Comment on above: Order Comment: TEST CBC WAS CANCELLED, 12/04/2022 21:07 not collected. Performed By: #### C BC ####[id number] [place] [address] Erythrocyte distribution width (RBC) [Ratio] 15.4 % High 11.5 - 14.5 [facility] Comment on above: Performed By: #### C BC ####[id number] [place] [address] Hematocrit (Bld) [Volume fraction] 33.2 % Low 41.0 - 52.0 [facility] Comment on above: Performed By: #### C BC ####[id number] [place] [address] Hemoglobin (Bld) [Mass/Vol] 10.6 g/dL Low 13.5 - 17.5 [facility] Comment on above: Performed By: #### C BC ####[id number] [place] [address] MCHC (RBC) [Mass/Vol] 31.9 g/dL Low 32.0 - 36.0 [facility] Comment on above: Performed By: #### C BC ####[id number] [place] [address] MCV (RBC) [Entitic vol] 100 fL Normal 80 - 100 [facility] Comment on above: Performed By: #### C BC ####[id number] [place] [address] NUCLEATED RBC 0.0 /100 WBC Normal 0.0-0.0 [facility] Comment on above: Performed By: #### C BC ####[id number] [place] [address] Platelets (Bld) [#/Vol] 349 10*3/uL Normal 150 - 450 [facility] Comment on above: Performed By: #### C BC ####[id number] [place] [address] RBC 3.32 x10E12/L Low 4.50 - 5.90 [facility] Comment on above: Performed By: #### C BC ####[id number] [place] [address] WBC (Bld) [#/Vol] 20.1 10*3/uL High 4.4 - 11.3 [facility] Comment on above: Performed By: #### C BC ####[id number] [place] [address] Clinical Event Note-ENT Flap Checkon 12-04-2022 Clinical Event Note-ENT Flap Check Normal [facility] Clinical Event Note-ENT Flap Check Normal [facility] Clinical Event Note-ENT Flap Check Normal [facility] Clinical Event Note-ENT Flap Check Normal [facility] Clinical Event Note-ENT Flap Check Normal [facility] Consult-Perioperative Medici neon 12-04-2022 Consult-Perioperative Medicine Normal [facility] Daily Progress Note-ENTon Daily Progress Note-ENT Normal [facility] Discharge Planning [id number] 12-04-2022 Discharge Planning Note2 Normal [facility] ELECTROLYTE, URINE SPOTon OSMOLALITY,URINE SPOT 567 mOsm/kg Normal 200 - 1200 [facility] Comment on above: Performed By: #### E LCS2 ####[id number] [place] [address] CHLORIDE,URINE SPOT 16 mmol/L Normal Not Established [facility] Comment on above: Performed By: #### E LCS2 ####[id number] [place] [address] CHLORIDE/CREAT RATIO 13 mmol/g Creat Low 23 - 275 [facility] Comment on above: Performed By: #### E LCS2 ####[id number] [place] [address] CREATININE,URINE 119.0 mg/dL Normal 20.0 - 370.0 [facility] Comment on above: Performed By: #### E LCS2 ####[id number] [place] [address] POT/CREAT RATIO 66 mmol/g Creat Normal Not Established [facility] Comment on above: Performed By: #### E LCS2 ####[id number] [place] [address] POTASSIUM,URINE SPOT 79 mmol/L Normal Not Established [facility] Comment on above: Performed By: #### E LCS2 ####[id number] [place] [address] Sodium (U) [Moles/Vol] 16 mmol/L Normal Not Established [facility] Comment on above: Performed By: #### E LCS2 ####[id number] [place] [address] SODIUM/CREAT RATIO 13 mmol/g Creat Normal Not Established [facility] Comment on above: Performed By: #### E LCS2 ####[id number] [place] [address] UREA NITROGEN,URINE 383 mg/dL Normal Not Established [facility] Comment on above: Performed By: #### E LCS2 ####[id number] [place] [address] UREA NITROGEN/CREAT RATIO 3.2 g/g Creat Normal Not Established [facility] Comment on above: Performed By: #### E LCS2 ####[id number] [place] [address] GLUCOSE-POCTon 12-04-2022 Glucose [Mass/Vol] 228 mg/dL High 74 - 99 [facility] Comment on above: Performed By: #### G SUSAN ####[id number] [place] [address] Glucose [Mass/Vol] 261 mg/dL High 74 - 99 [facility] Comment on above: Performed By: #### G SUSAN ####[id number] [place] [address] Glucose [Mass/Vol] 256 mg/dL High 74 - 99 [facility] Comment on above: Performed By: #### G SUSAN ####[id number] [place] [address] Glucose [Mass/Vol] 232 mg/dL High 74 - 99 [facility] Comment on above: Performed By: #### G SUSAN ####[id number] [place] [address] Glucose [Mass/Vol] 194 mg/dL High 74 - 99 [facility] Comment on above: Performed By: #### G SUSAN ####[id number] [place] [address] Laboratory - Chemistry and C hemistry - challengeon 12-04-2022 Glucose [Mass/Vol] 148 mg/dL above high threshold 74 - 99 MG-Otolaryn gology-[facility] 4100 Work Phone: [phone] Glucose [Mass/Vol] 228 mg/dL above high threshold 74 - 99 MG-Otolaryn gology-[facility] 4100 Work Phone: Base excess Calc (BldV) [Moles/Vol] -3.1000 mmol/L below low threshold -2.0 - 3.0 MG-Otolaryn gology-[place] 163440 Work Phone: [phone] CO2 (BldV) [Partial pressure] 50 mm[Hg] 41 - 51 MG-Otolaryn gology-[place] [address] Work Phone: [phone] HCO3 (Bld) [Moles/Vol] 24.0 mmol/L See Below M G-Otolaryn gology-[place] [address] Work Phone: [phone] Comment on above: Reference Range: 22. 0 - 26.0 Oxygen (BldV) [Partial pressure] 42 mm[Hg] 35 - 45 MG-Otolaryn gology-[place] [address] Work Phone: [phone] Oxyhemoglobin (BldV) [Mass fraction] 65.8 % See Below MG-Otolaryn gology-[place] [address] Work Phone: [phone] Comment on above: Reference Range: 45. 0 - 75.0 pH (BldV) 7.29 [pH] below low threshold See Below MG-Otolaryn gology-[place] [address] Work Phone: [phone] Comment on above: Reference Range: 7.3 3 - 7.43 Glucose [Mass/Vol] 261 mg/dL above high threshold 74 - 99 MG-Otolaryn gology-[place] [address] Work Phone: [phone] Anion gap [Moles/Vol] 17 mmol/L 10 - 20 MG- Otolaryn gology-[place] [address] Work Phone: Calcium [Mass/Vol] 8.5 mg/dL below low threshold 8.6 - 10.6 MG-Otolaryn gology-[place] [address] Work Phone: Chloride [Moles/Vol] 106 mmol/L 98 - 107 [place] [address] Work Phone: [phone] CO2 [Moles/Vol] 25 mmol/L 21 - 32 [place] [address] Work Phone: [phone] Creatinine (U) [Mass/Vol] 119.0 mg/dL See Below MG-[place] [address] Work Phone: [phone] Comment on above: Reference Range: 20. 0 - 370.0 Creatinine [Mass/Vol] 2.25 mg/dL above high threshold See Below -[place]ree [place]andezJim [place] [address] Work Phone: [phone] Comment on above: Reference Range: 0.5 0 - 1.30 Glucose [Mass/Vol] 238 mg/dL above high threshold 74 - 99 MG-Margoth fernandezJim [place] [address] Work Phone: [phone] Osmolality (U) [Osmolality] 567 mosm/kg 200 - 1200 MG[place]Jim [place] [address] Work Phone: [phone] Potassium (U) [Moles/Vol] 79 mmol/L See Below -[place]Jim [place] [address] Work Phone: [phone] Comment on above: Reference Range: Not Established Potassium [Moles/Vol] 4.9 mmol/L 3.5 - 5.3 MG- [place]heree fernandezJim [place] [address] Work Phone: [phone] Potassium/Creatinine (U) [Molar ratio] 66 {mmol/g_Creat} See Below [facility]UCKMargoth fern[place]Jim [place] [address] Work Phone: [phone] Comment on above: Reference Range: Not Established Sodium (U) [Moles/Vol] 16 mmol/L See Below -[place] [address] Work Phone: [phone] Comment on above: Reference Range: Not Established Sodium [Moles/Vol] 143 mmol/L 136 - 145 MG-[place] [address] Work Phone: Sodium/Creatinine (U) [Ratio] 13 {mmol/g_Creat} See Below -Otolaryn [facility] westogyJim [place] [address] Work Phone: [phone] Comment on above: Reference Range: Not Established Urea nitrogen (U) [Mass/Vol] 383 mg/dL See Below -[facility]tolaryn [facility] [place]ogy[place] [address] Work Phone: [phone] Comment on above: Reference Range: Not Established Urea nitrogen [Mass/Vol] 46 mg/dL above high threshold 6 - 23 MG-[place]tolaryn [place]ogy[place] [address] Work Phone: [phone] Urea/Creatinine (U) [Molar ratio] 3.2 {g/g_Creat} See Below -[facility]tolaryn [facility] centery[facility] [address] Work Phone: [phone] Comment on above: Reference Range: Not Established Anion gap 4 (BldA) [Moles/Vol] 14 mmol/L 10 - 25 MG-Otolarlisbet [facility] centeryJim [place] [address] Work Phone: [phone] Base excess Calc (Bld) [Moles/Vol] -3.8000 mmol/L below low threshold -2.0 - 3.0 MG-[facility]tolaryn [facility] centery[facility] [place] [address] Work Phone: [phone] Calcium.ionized (BldA) [Moles/Vol] 1.14 mmol/L See Below [facility] centeryJim [place] [address] Work Phone: Comment on above: Reference Range: 1.1 0 - 1.33 Chloride (BldA) [Moles/Vol] 106 mmol/L 98 - 107 [facility]tolaryn [facility] centery[facility] [place] [address] Work Phone: [phone] CO2 (Bld) [Partial pressure] 62 mm[Hg] above high threshold 38 - 42 MG-[place]tolaryn gology-[place] [address] Work Phone: [phone] Glucose [Mass/Vol] 302 mg/dL above high threshold 74 - 99 MG-[place]tolaryn [place]ology[place] [address] Work Phone: [phone] HCO3 (Bld) [Moles/Vol] 24.8 mmol/L See Below M G-[place]aryn [place]ology[place] [address] Work Phone: [phone] Comment on above: Reference Range: 22. 0 - 26.0 Lactate (BldA) [Moles/Vol] 1.7 mmol/L 0.4 - 2.0 MG-[place]tolaryn [place]ology-[place] [address] Work Phone: [phone] Oxygen (Bld) [Partial pressure] 85 mm[Hg] 85 - 95 MG-[place]aryn [place]ology[place] [address] Work Phone: [phone] Oxyhemoglobin (BldA) [Mass fraction] 93.9 % below low threshold See Below MG-[place]tolaryn [place]ology[place] [address] Work Phone: [phone] Comment on above: Reference Range: 94. 0 - 98.0 pH (Bld) 7.21 [pH] Critically low See Below MG-Otolary n [place]ology-[place] [address] Work Phone: [phone] Comment on above: Reference Range: 7.3 8 - 7.42PH CALLED TO GRISEL BETH, 12/04/2022 11:06 Potassium (BldA) [Moles/Vol] 5.5 mmol/L above high threshold 3.5 - 5.3 MG-[place]aryn [place] [address] Work Phone: [phone] Sodium (BldA) [Moles/Vol] 139 mmol/L 136 - 145 MG-[place]aryn [place]ology[place] [address] Work Phone: [phone] Glucose [Mass/Vol] 256 mg/dL above high threshold 74 - 99 MG-[place]aryn [facility]ology-[place] [address] Work Phone: Glucose [Mass/Vol] 232 mg/dL above high threshold 74 - 99 MG-[place]aryn [facility]ology[place] [address] Work Phone: Glucose [Mass/Vol] 194 mg/dL above high threshold 74 - 99 MG-[place]aryn [place]ology[place] [address] Work Phone: Laboratory - Hematology and Cell countson 12-04-2022 Hematocrit Est (Bld) [Volume fraction] 33.0 % below low threshold See Below MG-[place]aryn [place]ology[place] [address] Work Phone: Comment on above: Reference Range: 41. 0 - 52.0 Hemoglobin (Bld) [Mass/Vol] 11.1 g/dL below low threshold See Below MG-[place]tolaryn [place]ology[place] [address] Work Phone: [phone] Comment on above: Reference Range: 13. 5 - 17.5 Erythrocyte distribution width (RBC) [Ratio] 15.4 % above high threshold See Below MG-[place]tolaryn [place]ology-[place] [address] Work Phone: Comment on above: Reference Range: 11. 5 - 14.5 Hematocrit (Bld) [Volume fraction] 33.2 % below low threshold See Below MG-[place]tolaryn [place]ology-[place] [address] Work Phone: Comment on above: Reference Range: 41. 0 - 52.0 Hemoglobin (Bld) [Mass/Vol] 10.6 g/dL below low threshold See Below MG-[place]tolaryn [place]ology-[place] [address] Work Phone: Comment on above: Reference Range: 13. 5 - 17.5 MCHC (RBC) [Mass/Vol] 31.9 g/dL below low threshold See Below MG-[place]aryn [place]ology[place] [address] Work Phone: Comment on above: Reference Range: 32. 0 - 36.0 MCV (RBC) [Entitic vol] 100 fL 80 - 100 [facility] 4[facility] Work Phone: Platelets (Bld) [#/Vol] 349 10*3/uL 150 - 450 MG-Otolaryn gology-[facility] 4100 Work Phone: [phone] RBC (Bld) [#/Vol] 3.32 {x10E12/L} below low threshold See Below MG-Otolaryn gology-[facility] 4100 Work Phone: Comment on above: Reference Range: 4.5 0 - 5.90 WBC (Bld) [#/Vol] 20.1 10*3/uL above high threshold 4.4 - 11.3 [facility] 4100 Work Phone: MAGNESIUMon 12-04-2022 Magnesium [Mass/Vol] 2.47 mg/dL High 1.60 - 2.40 [facility] Comment on above: Performed By: #### M G ####[id number] [place] [address] Magnesium, Serumon 3 Magnesium [Mass/Vol] 2.47 mg/dL above high threshold See Below [facility] 4100 Work Phone: Comment on above: Reference Range: 1.6 0 - 2.40 No Panel Informationon 12-04 31 {mL/min/1.73m2} Abnormal >90 MG-[place] laryn [facility] 4100 Work Phone: Comment on above: CALCULATIONS OF REYNALDO MATED GFR ARE PERFORMED USING THE 2020 CKD-EPI STUDY REFIT EQUATION WITHOUT THE RACE VARIABLE FOR THE IDMS-TRACEABLE CREATININE METHODS.https://jasn.asnjournals.org/content//A SN.2734482082 13 {mmol/g_Creat} below low threshold 23 - 275 MG-Otolaryn gology-[facility] 4100 Work Phone: 16 mmol/L See Below MG-Otolaryn madiogy-[facility] 4100 Work Phone: Comment on above: Reference Range: Not Established 0.0 {/100_WBC} 0.0-0.0 MG-Otolary n gology-[facility] 4100 Work Phone: OT Evaluation v2-occupationa l therapy - Upon arrival in roomon 12-04-2022 OT Evaluation v2-occupational therapy - Upon arrival in room Normal [facility] Patient Profile - Adult v2on 12-04-2022 Patient Profile - Adult v2 Normal [facility] RENAL FUNCTION PANELon 12-04 Albumin [Mass/Vol] 4.1 g/dL Normal 3.4 - 5.0 [facility] Comment on above: Performed By: #### R ENAL ####[id number] [place] [address] Anion gap [Moles/Vol] 17 mmol/L Normal 10 - 20 [facility] Comment on above: Performed By: #### R ENAL ####[id number] [place] [address] Calcium [Mass/Vol] 8.9 mg/dL Normal 8.6 - 10.6 [facility] Comment on above: Performed By: #### R ENAL ####[id number] [place] [address] Chloride [Moles/Vol] 107 mmol/L Normal 98 - 107 [facility] Comment on above: Performed By: #### R ENAL ####[id number] [place] [address] Creatinine [Mass/Vol] 2.01 mg/dL High 0.50 - 1.30 [facility] Comment on above: Performed By: #### R ENAL ####[id number] [place] [address] GFR/1.73 sq M.predicted among non-blacks MDRD (S/P/Bld) [Vol rate/Area] 35 mL/min/{1.73_m2} Abnormal >90 [facility] Comment on above: Result Comment: CALC ULATIONS OF ESTIMATED GFR ARE PERFORMED USING THE 2020 CKD-EPI STUDY REFIT EQUATION WITHOUT THE RACE VARIABLE FOR THE IDMS-TRACEABLE CREATININE METHODS.https://jasn.asnjournals.org/content//A SN.7659780595 Performed By: #### R ENAL ####[id number] [place] [address] Glucose [Mass/Vol] 227 mg/dL High 74 - 99 [facility] Comment on above: Performed By: #### R ENAL ####[id number] [place] [address] HCO3 (Bld) [Moles/Vol] 24 mmol/L Normal 21 - 32 [facility] Comment on above: Performed By: #### R ENAL ####[id number] [place] [address] Phosphate [Mass/Vol] 6.1 mg/dL High 2.5 - 4.9 [facility] Comment on above: Result Comment: The performance characteristics of phosphorus testing in heparinized plasma have been validated by the individual laboratory site where testing is performed. Testing on heparinized plasma is not approved by the FDA; however, such approval is not necessary. Performed By: #### R ENAL ####[id number] [place] [address] Potassium [Moles/Vol] 5.0 mmol/L Normal 3.5 - 5.3 [facility] Comment on above: Performed By: #### R ENAL ####[id number] [place] [address] Sodium [Moles/Vol] 143 mmol/L Normal 136 - 145 [facility] Comment on above: Performed By: #### R ENAL ####[id number] [place] [address] Urea nitrogen [Mass/Vol] 36 mg/dL High 6 - 23 [facility] Comment on above: Performed By: #### R ENAL ####[id number] [place] [address] Radiologyon 12-04-2022 XR Chest Single view Normal MG-O tolaryn gology-[facility] 4100 Work Phone: [phone] Rapid Response Nurse Noteon 12-04-2022 Rapid Response Nurse Note Normal [facility] Renal Function Panelon 12-04 Albumin BCP dye [Mass/Vol] 4.1 g/dL 3.4 - 5.0 MG-Otolaryn gology-[facility] 4100 Work Phone: [phone] Anion gap [Moles/Vol] 17 mmol/L 10 - 20 MG- Ot[place]aryn gology-[place] [address] Work Phone: [phone] Calcium [Mass/Vol] 8.9 mg/dL 8.6 - 10.6 MG-[place] laryn gology-[facility] 4100 Work Phone: [phone] Chloride [Moles/Vol] 107 mmol/L 98 - 107 MG-O tolaryn gology-[facility] 4100 Work Phone: [phone] CO2 [Moles/Vol] 24 mmol/L 21 - 32 MG-Otolar yn gology-[facility] 4100 Work Phone: [phone] Creatinine [Mass/Vol] 2.01 mg/dL above high threshold See Below MG-Otolaryn gology-[place] [address] Work Phone: [phone] Comment on above: Reference Range: 0.5 0 - 1.30 Glucose [Mass/Vol] 227 mg/dL above high threshold 74 - 99 MG-Otolaryn gology-[facility] 4100 Work Phone: [phone] Phosphate [Mass/Vol] 6.1 mg/dL above high threshold 2.5 - 4.9 MG-Otolaryn gology-[place] [address] Work Phone: [phone] Comment on above: The performance violet acteristics of phosphorus testing in heparinized plasma have been validated by the individual laboratory site where testing is performed. Testing on heparinized plasma is not approved by the FDA; however, such approval is not necessary. Potassium [Moles/Vol] 5.0 mmol/L 3.5 - 5.3 MG- Otolaryn gology-[facility] 4100 Work Phone: Sodium [Moles/Vol] 143 mmol/L 136 - 145 MG-[place] laryn [facility] 4100 Work Phone: Urea nitrogen [Mass/Vol] 36 mg/dL above high threshold 6 - 23 MG-Otolaryn [facility] 4100 Work Phone: Renal Function Panel 35 {mL/min/1.73m2} Abnormal >90 [facility] Work Phone: Comment on above: CALCULATIONS OF REYNALDO MATED GFR ARE PERFORMED USING THE 2020 CKD-EPI STUDY REFIT EQUATION WITHOUT THE RACE VARIABLE FOR THE IDMS-TRACEABLE CREATININE METHODS.https://jasn.asnjournals.org/content///A SN.7082104798 TH CHEST 1 VIEWon 12-04-2022 CHEST 1 VIEW Normal [facility] VENOUS BLOOD GASon 3 BASE EXCESS-BLOOD -3.1 mmol/L Low -2.0 - 3.0 [facility] Comment on above: Performed By: #### B LGV2 ####[id number] [place] [address] BICARB, CALCULATED 24.0 mmol/L Normal 22.0 - 26.0 [facility] Comment on above: Performed By: #### B LGV2 ####[id number] [place] [address] OXY HGB 65.8 % Normal 45.0 - 75.0 [facility] Comment on above: Performed By: #### B LGV2 ####[id number] [place] [address] Oxygen (Bld) [Partial pressure] 42 mm[Hg] Normal 35 - 45 [facility] Comment on above: Performed By: #### B LGV2 ####[id number] [place] [address] PATIENT TEMPERATURE 37.0 degrees C Normal [facility] Comment on above: Result Comment: NOTE : PATIENT RESULTS ARE NOT CORRECTED FOR TEMPERATURE. Performed By: #### B LGV2 ####[id number] [place] [address] PCO2 50 mmHg Normal 41 - 51 [facility] Comment on above: Performed By: #### B LGV2 ####[id number] [place] [address] pH (Bld) 7.29 [pH] Low 7.33 - 7.43 [facility] Comment on above: Performed By: #### B LGV2 ####[id number] [place] [address] SO2 67 % Normal 45 - 75 [facility] Comment on above: Performed By: #### B LGV2 ####[id number] [place] [address] Vital signson 12-04-2022 Oxygen saturation in Venous blood 67 % 45 - 75 [facility]UCKOtolarmercy health st[facility] vincent medical centerogyAltru [facility] Systems 4100 Work Phone: ARTERIAL FULL PANELon 2022 Anion gap [Moles/Vol] 11 mmol/L Normal 10 - 25 [facility] Comment on above: Performed By: #### A FPA4 ####[id number] [place] [address] BASE EXCESS-BLOOD -2.5 mmol/L Low -2.0 - 3.0 [facility] Comment on above: Performed By: #### A FPA4 ####[id number] [place] [address] BICARB, CALCULATED 22.5 mmol/L Normal 22.0 - 26.0 [facility] Comment on above: Performed By: #### A FPA4 ####[id number] [place] [address] CALCIUM,IONIZED 1.18 mmol/L Normal 1.10 - 1.33 [facility] Comment on above: Performed By: #### A FPA4 ####[id number] [place] [address] Chloride [Moles/Vol] 108 mmol/L High 98 - 107 [facility] Comment on above: Performed By: #### A FPA4 ####[id number] [place] [address] Glucose [Mass/Vol] 200 mg/dL High 74 - 99 [facility] Comment on above: Performed By: #### A FPA4 ####[id number] [place] [address] Hematocrit (Bld) [Volume fraction] 30.0 % Low 41.0 - 52.0 [facility] Comment on above: Performed By: #### A FPA4 ####[id number] [place] [address] Hemoglobin (Bld) [Mass/Vol] 10.1 g/dL Low 13.5 - 17.5 [facility] Comment on above: Performed By: #### A FPA4 ####[id number] [place] [address] Lactate [Moles/Vol] 1.1 mmol/L Normal 0.4 - 2.0 [facility] Comment on above: Performed By: #### A FPA4 ####[id number] [place] [address] OXY HGB 97.3 % Normal 94.0 - 98.0 [facility] Comment on above: Performed By: #### A FPA4 ####[id number] [place] [address] Oxygen (Bld) [Partial pressure] 144 mm[Hg] High 85 - 95 [facility] Comment on above: Performed By: #### A FPA4 ####[id number] [place] [address] PATIENT TEMPERATURE 37.0 degrees C Normal [facility] Comment on above: Result Comment: NOTE : PATIENT RESULTS ARE NOT CORRECTED FOR TEMPERATURE. Performed By: #### A FPA4 ####[id number] [place] [address] PCO2 39 mmHg Normal 38 - 42 [facility] Comment on above: Performed By: #### A FPA4 ####[id number] [place] [address] pH (Bld) 7.37 [pH] Low 7.38 - 7.42 [facility] Comment on above: Performed By: #### A FPA4 ####[id number] [place] [address] Potassium [Moles/Vol] 4.5 mmol/L Normal 3.5 - 5.3 [facility] Comment on above: Performed By: #### A FPA4 ####[id number] [place] [address] SO2 100 % Normal 94 - 100 [facility] Comment on above: Performed By: #### A FPA4 ####[id number] [place] [address] Sodium [Moles/Vol] 137 mmol/L Normal 136 - 145 [facility] Comment on above: Performed By: #### A FPA4 ####[id number] [place] [address] Anion gap [Moles/Vol] 10 mmol/L Normal 10 - 25 [facility] Comment on above: Performed By: #### A FPA4 ####[id number] [place] [address] BASE EXCESS-BLOOD -2.0 mmol/L Normal -2.0 - 3.0 [facility] Comment on above: Performed By: #### A FPA4 ####[id number] [place] [address] BICARB, CALCULATED 23.1 mmol/L Normal 22.0 - 26.0 [facility] Comment on above: Performed By: #### A FPA4 ####[id number] [place] [address] CALCIUM,IONIZED 1.16 mmol/L Normal 1.10 - 1.33 [facility] Comment on above: Performed By: #### A FPA4 ####[id number] [place] [address] Chloride [Moles/Vol] 108 mmol/L High 98 - 107 [facility] Comment on above: Performed By: #### A FPA4 ####[id number] [place] [address] Glucose [Mass/Vol] 180 mg/dL High 74 - 99 [facility] Comment on above: Performed By: #### A FPA4 ####[id number] [place] [address] Hematocrit (Bld) [Volume fraction] 32.0 % Low 41.0 - 52.0 [facility] Comment on above: Performed By: #### A FPA4 ####[id number] [place] [address] Hemoglobin (Bld) [Mass/Vol] 10.7 g/dL Low 13.5 - 17.5 [facility] Comment on above: Performed By: #### A FPA4 ####[id number] [place] [address] Lactate [Moles/Vol] 1.1 mmol/L Normal 0.4 - 2.0 [facility] Comment on above: Performed By: #### A FPA4 ####[id number] [place] [address] OXY HGB 96.2 % Normal 94.0 - 98.0 [facility] Comment on above: Performed By: #### A FPA4 ####[id number] [place] [address] Oxygen (Bld) [Partial pressure] 155 mm[Hg] High 85 - 95 [facility] Comment on above: Performed By: #### A FPA4 ####[id number] [place] [address] PATIENT TEMPERATURE 37.0 degrees C Normal [facility] Comment on above: Result Comment: NOTE : PATIENT RESULTS ARE NOT CORRECTED FOR TEMPERATURE. Performed By: #### A FPA4 ####[id number] [place] [address] PCO2 40 mmHg Normal 38 - 42 [facility] Comment on above: Performed By: #### A FPA4 ####[id number] [place] [address] pH (Bld) 7.37 [pH] Low 7.38 - 7.42 [facility] Comment on above: Performed By: #### A FPA4 ####[id number] [place] [address] Potassium [Moles/Vol] 4.6 mmol/L Normal 3.5 - 5.3 [facility] Comment on above: Performed By: #### A FPA4 ####[id number] [place] [address] SO2 99 % Normal 94 - 100 [facility] Comment on above: Performed By: #### A FPA4 ####[id number] [place] [address] Sodium [Moles/Vol] 136 mmol/L Normal 136 - 145 [facility] Comment on above: Performed By: #### A FPA4 ####[id number] [place] [address] Anion gap [Moles/Vol] 12 mmol/L Normal 10 - 25 [facility] Comment on above: Performed By: #### A FPA4 ####[id number] [place] [address] BASE EXCESS-BLOOD -0.8 mmol/L Normal -2.0 - 3.0 [facility] Comment on above: Performed By: #### A FPA4 ####[id number] [place] [address] BICARB, CALCULATED 24.3 mmol/L Normal 22.0 - 26.0 [facility] Comment on above: Performed By: #### A FPA4 ####[id number] [place] [address] CALCIUM,IONIZED 1.21 mmol/L Normal 1.10 - 1.33 [facility] Comment on above: Performed By: #### A FPA4 ####[id number] [place] [address] Chloride [Moles/Vol] 107 mmol/L Normal 98 - 107 [facility] Comment on above: Performed By: #### A FPA4 ####[id number] [place] [address] Glucose [Mass/Vol] 107 mg/dL High 74 - 99 [facility] Comment on above: Performed By: #### A FPA4 ####[id number] [place] [address] Hematocrit (Bld) [Volume fraction] 35.0 % Low 41.0 - 52.0 [facility] Comment on above: Performed By: #### A FPA4 ####[id number] [place] [address] Hemoglobin (Bld) [Mass/Vol] 11.8 g/dL Low 13.5 - 17.5 [facility] Comment on above: Performed By: #### A FPA4 ####[id number] [place] [address] Lactate [Moles/Vol] 1.0 mmol/L Normal 0.4 - 2.0 [facility] Comment on above: Performed By: #### A FPA4 ####[id number] [place] [address] OXY HGB 96.8 % Normal 94.0 - 98.0 [facility] Comment on above: Performed By: #### A FPA4 ####[id number] [place] [address] Oxygen (Bld) [Partial pressure] 153 mm[Hg] High 85 - 95 [facility] Comment on above: Performed By: #### A FPA4 ####[id number] [place] [address] PATIENT TEMPERATURE 37.0 degrees C Normal [facility] Comment on above: Result Comment: NOTE : PATIENT RESULTS ARE NOT CORRECTED FOR TEMPERATURE. Performed By: #### A FPA4 ####[id number] [place] [address] PCO2 41 mmHg Normal 38 - 42 [facility] Comment on above: Performed By: #### A FPA4 ####[id number] [place] [address] pH (Bld) 7.38 [pH] Normal 7.38 - 7.42 [facility] Comment on above: Performed By: #### A FPA4 ####[id number] [place] [address] Potassium [Moles/Vol] 4.0 mmol/L Normal 3.5 - 5.3 [facility] Comment on above: Performed By: #### A FPA4 ####[id number] [place] [address] SO2 100 % Normal 94 - 100 [facility] Comment on above: Performed By: #### A FPA4 ####[id number] [place] [address] Sodium [Moles/Vol] 139 mmol/L Normal 136 - 145 [facility] Comment on above: Performed By: #### A FPA4 ####[id number] [place] [address] Clinical Note - Pharmacy v2- Medication Educationon 12-03-2022 Clinical Note - Pharmacy v2-Medication Education Normal [facility] GLUCOSE-POCTon 12-03-2022 Glucose [Mass/Vol] 234 mg/dL High 74 - 99 [facility] Comment on above: Performed By: #### G SUSAN ####[id number] [place] [address] Glucose [Mass/Vol] 219 mg/dL High 74 - 99 [facility] Comment on above: Performed By: #### G SUSAN ####[id number] [place] [address] Glucose [Mass/Vol] 158 mg/dL High 74 - 99 [facility] Comment on above: Performed By: #### G SUSAN ####[id number] [place] [address] Laboratory - Blood bankon ABO group Nom (Bld) A MG-[facility] 4100 Work Phone: Blood group antibody screen Ql Negative MG-Otolaryn gology-[place] [address] Work Phone: Rh immune globulin screen (Bld) [Interp] Positive MG-Otolary n gology-[place] [address] Work Phone: Laboratory - Chemistry and C hemistry - challengeon 12-03-2022 Glucose [Mass/Vol] 234 mg/dL above high threshold 74 - 99 MG-[facility]aryn gology-[place] [address] Work Phone: Glucose [Mass/Vol] 219 mg/dL above high threshold 74 - 99 MG-[facility]tolaryn gology-[place] [address] Work Phone: Anion gap 4 (BldA) [Moles/Vol] 11 mmol/L 10 - 25 MG-[facility]tolaryn gology-[place] [address] Work Phone: Base excess Calc (Bld) [Moles/Vol] -2.5000 mmol/L below low threshold -2.0 - 3.0 [facility] gology-[place] [address] Work Phone: Calcium.ionized (BldA) [Moles/Vol] 1.18 mmol/L See Below MG-Otolaryn gology-[place] [address] Work Phone: Comment on above: Reference Range: 1.1 0 - 1.33 Chloride (BldA) [Moles/Vol] 108 mmol/L above high threshold 98 - 107 MG-[facility]aryn gology-[place] [address] Work Phone: [phone] CO2 (Bld) [Partial pressure] 39 mm[Hg] 38 - 42 MG-[facility]tolaryn gology-[place] [address] Work Phone: Glucose [Mass/Vol] 200 mg/dL above high threshold 74 - 99 [facility]aryn gology-[place] [address] Work Phone: HCO3 (Bld) [Moles/Vol] 22.5 mmol/L See Below M GOtsheree [place] [address] Work Phone: [phone] Comment on above: Reference Range: 22. 0 - 26.0 Lactate (BldA) [Moles/Vol] 1.1 mmol/L 0.4 - 2.0 [facility] [address] Work Phone: [phone] Oxygen (Bld) [Partial pressure] 144 mm[Hg] above high threshold 85 - 95 [facility] [place] [address] Work Phone: [phone] Oxyhemoglobin (BldA) [Mass fraction] 97.3 % See Below [facility] [address] Work Phone: [phone] Comment on above: Reference Range: 94. 0 - 98.0 pH (Bld) 7.37 [pH] below low threshold See Below [facility] [place] [address] Work Phone: [phone] Comment on above: Reference Range: 7.3 8 - 7.42 Potassium (BldA) [Moles/Vol] 4.5 mmol/L 3.5 - 5.3 [facility] [place] [address] Work Phone: [phone] Sodium (BldA) [Moles/Vol] 137 mmol/L 136 - 145 [place] [address] Work Phone: [phone] Anion gap 4 (BldA) [Moles/Vol] 10 mmol/L 10 - 25 [place] [address] Work Phone: Base excess Calc (Bld) [Moles/Vol] -2.0000 mmol/L -2.0 - 3.0 [facility] [place] [address] Work Phone: [phone] Calcium.ionized (BldA) [Moles/Vol] 1.16 mmol/L See Below [facility] [address] Work Phone: [phone] Comment on above: Reference Range: 1.1 0 - 1.33 Chloride (BldA) [Moles/Vol] 108 mmol/L above high threshold 98 - 107 MG-Otolaryn gology-[place] [address] Work Phone: [phone] CO2 (Bld) [Partial pressure] 40 mm[Hg] 38 - 42 MG-Otolaryn gology[place] [address] Work Phone: [phone] Glucose [Mass/Vol] 180 mg/dL above high threshold 74 - 99 -Otolaryn gology-[place] [address] Work Phone: [phone] HCO3 (Bld) [Moles/Vol] 23.1 mmol/L See Below M G-Otolaryn [facility] westogyJim [place] [address] Work Phone: [phone] Comment on above: Reference Range: 22. 0 - 26.0 Lactate (BldA) [Moles/Vol] 1.1 mmol/L 0.4 - 2.0 MG-Otolaryn gology-[place] [address] Work Phone: [phone] Oxygen (Bld) [Partial pressure] 155 mm[Hg] above high threshold 85 - 95 -Otbunnlevelyn [facility] centeryJim [place] [address] Work Phone: [phone] Oxyhemoglobin (BldA) [Mass fraction] 96.2 % See Below -Otolaryn gology-[place] [address] Work Phone: [phone] Comment on above: Reference Range: 94. 0 - 98.0 pH (Bld) 7.37 [pH] below low threshold See Below -Otolaryn gology-[place] [address] Work Phone: [phone] Comment on above: Reference Range: 7.3 8 - 7.42 Potassium (BldA) [Moles/Vol] 4.6 mmol/L 3.5 - 5.3 [facility]-Otolaryn [facility] [place] [address] Work Phone: [phone] Sodium (BldA) [Moles/Vol] 136 mmol/L 136 - 145 MG-Otolaryn [facility] [place]ogyJim [place] [address] Work Phone: [phone] Anion gap 4 (BldA) [Moles/Vol] 12 mmol/L 10 - 25 MG-Otolaryn [facility] westogyJim [place] [address] Work Phone: [phone] Base excess Calc (Bld) [Moles/Vol] -0.8000 mmol/L -2.0 - 3.0 MG-Otolaryn [facility] westogyJim [place] [address] Work Phone: [phone] Calcium.ionized (BldA) [Moles/Vol] 1.21 mmol/L See Below -Otolaryn [facility] centery[place] [address] Work Phone: [phone] Comment on above: Reference Range: 1.1 0 - 1.33 Chloride (BldA) [Moles/Vol] 107 mmol/L 98 - 107 MG-Otbunnlevellisbet [facility] [place]eryJim [place] [address] Work Phone: [phone] CO2 (Bld) [Partial pressure] 41 mm[Hg] 38 - 42 -Otbunnlevellisbet [facility] [place]ery[place] [address] Work Phone: [phone] Glucose [Mass/Vol] 107 mg/dL above high threshold 74 - 99 MG-Otolaryn [facility] westogyJim [place] [address] Work Phone: [phone] HCO3 (Bld) [Moles/Vol] 24.3 mmol/L See Below M GOtolaryn [facility] centeryJim [place] [address] Work Phone: [phone] Comment on above: Reference Range: 22. 0 - 26.0 Lactate (BldA) [Moles/Vol] 1.0 mmol/L 0.4 - 2.0 MG-Otbunnlevelyn [facility] [place]Jim [place] [address] Work Phone: [phone] Oxygen (Bld) [Partial pressure] 153 mm[Hg] above high threshold 85 - 95 -Otolarlisbet [facility] centeryJim [place] [address] Work Phone: Oxyhemoglobin (BldA) [Mass fraction] 96.8 % See Below [facility] [place]ogyJim [place] [address] Work Phone: Comment on above: Reference Range: 94. 0 - 98.0 pH (Bld) 7.38 [pH] See Below [facility] SHATTUCKOtolarlisbet [facility] westogyJim [place] [address] Work Phone: Comment on above: Reference Range: 7.3 8 - 7.42 Potassium (BldA) [Moles/Vol] 4.0 mmol/L 3.5 - 5.3 [facility] [place] [address] Work Phone: Sodium (BldA) [Moles/Vol] 139 mmol/L 136 - 145 [facility] [address] Work Phone: Glucose [Mass/Vol] 158 mg/dL above high threshold 74 - 99 [facility] [place] [address] Work Phone: Laboratory - Hematology and Cell countson 12-03-2022 Hematocrit Est (Bld) [Volume fraction] 30.0 % below low threshold See Below [facility] SHATTUCKOtolarlisbet [facility] westhaileyyJim [place]ille [address] Work Phone: Comment on above: Reference Range: 41. 0 - 52.0 Hemoglobin (Bld) [Mass/Vol] 10.1 g/dL below low threshold See Below [facility]lis[facility] [place] [address] Work Phone: Comment on above: Reference Range: 13. 5 - 17.5 Hematocrit Est (Bld) [Volume fraction] 32.0 % below low threshold See Below [facility] westogyJim [place] [address] Work Phone: Comment on above: Reference Range: 41. 0 - 52.0 Hemoglobin (Bld) [Mass/Vol] 10.7 g/dL below low threshold See Below -[facility]aryn [facility]ology[facility] 410 Work Phone: Comment on above: Reference Range: 13. 5 - 17.5 Hematocrit Est (Bld) [Volume fraction] 35.0 % below low threshold See Below -[facility]aryn [facility]ology[facility] 4100 Work Phone: Comment on above: Reference Range: 41. 0 - 52.0 Hemoglobin (Bld) [Mass/Vol] 11.8 g/dL below low threshold See Below [facility]UCKOtolaryn gologyAltru [facility] 4100 Work Phone: Comment on above: Reference Range: 13. 5 - 17.5 No Panel Informationon 12-03 MG-Otolaryn gology-[facility]i man Work Phone: Order Reconciliationon 12-03 Order Reconciliation Normal [facility] Patient Profile - Preop v3on 12-03-2022 Patient Profile - Preop v3 Normal [facility] Radiologyon 12-03-2022 XR Chest Single view Normal MG-O nataliia [facility]ogy[facility] 4100 Work Phone: TH CHEST; 1 VIEWon 3 TH CHEST; 1 VIEW Normal [facility] TYPE + SCREENon 12-03-2022 ABO TYPE A Normal [facility] Comment on above: Performed By: #### T +S ####[id number] [place] [address] RH TYPE Positive Normal [facility] Comment on above: Performed By: #### T +S ####[id number] [place] [address] [facility] Surgical Pathology Depar tmenton 12-03-2022 [facility] Surgical Pathology Department Normal [facility] Comment on above: Performed By: #### U HCS ####[facility] Surgical Pathology [id number] AveCOhio[facility] [address] C Reactive Protein, Serumon 12-02-2022 CRP [Mass/Vol] 0.35 mg/dL MG-Otolary n gology-[facility] 4100 Work Phone: Comment on above: REF VALUE< 1.00 C-REACTIVE PROTEINon 023 C-REACTIVE PROTEIN 0.35 mg/dL Normal [facility] Comment on above: Order Comment: [facility] CARE TEAM #6 Result Comment: REF VALUE< 1.00 Performed By: #### C RP ####[address] [address] CBC AND DIFFERENTIALon 12-02 % AUTOMATED IMMATURE GRAN 1.2 % High 0.0 - 0.9 [facility] Comment on above: Order Comment: [facility] CARE TEAM #6 Result Comment: Sarah ture Granulocyte Count (IG) includes promyelocytes, myelocytes and metamyelocytes but does not include bands. Percent differential counts (%) should be interpreted in the context of the absolute cell counts (cells/L). Performed By: #### C BCDF ####[address] [address] Basophils (Bld) [#/Vol] 0.05 10*3/uL Normal 0.00 - 0.10 [facility] Comment on above: Order Comment: [facility] CARE TEAM #6 Performed By: #### C BCDF ####[address] [address] Basophils/100 WBC (Bld) 0.6 % Normal 0.0 - 2.0 [facility] Comment on above: Order Comment: [facility] CARE TEAM #6 Performed By: #### C BCDF ####[address] [address] Eosinophils (Bld) [#/Vol] 0.16 10*3/uL Normal 0.00 - 0.70 [facility] Comment on above: Order Comment: [facility] CARE TEAM #6 Performed By: #### C BCDF ####[address] [address] Eosinophils/100 WBC (Bld) 1.9 % Normal 0.0 - 6.0 [facility] Comment on above: Order Comment: HO ME CARE TEAM #6 Performed By: #### C BCDF ####[address] [address] Erythrocyte distribution width (RBC) [Ratio] 15.0 % High 11.5 - 14.5 [facility] Comment on above: Order Comment: HO ME CARE TEAM #6 Performed By: #### C BCDF ####[address] [address] Hematocrit (Bld) [Volume fraction] 38.2 % Low 41.0 - 52.0 [facility] Comment on above: Order Comment: HO ME CARE TEAM #6 Performed By: #### C BCDF ####[address] [address] Hemoglobin (Bld) [Mass/Vol] 11.9 g/dL Low 13.5 - 17.5 [facility] Comment on above: Order Comment: HO ME CARE TEAM #6 Performed By: #### C BCDF ####[address] [address] Lymphocytes (Bld) [#/Vol] 1.40 10*3/uL Normal 1.20 - 4.80 [facility] Comment on above: Order Comment: HO ME CARE TEAM #6 Performed By: #### C BCDF ####[address] [address] Lymphocytes/100 WBC (Bld) 16.5 % Normal 13.0 - 44.0 [facility] Comment on above: Order Comment: HO ME CARE TEAM #6 Performed By: #### C BCDF ####[address] [address] MCHC (RBC) [Mass/Vol] 31.2 g/dL Low 32.0 - 36.0 [facility] Comment on above: Order Comment: HO ME CARE TEAM #6 Performed By: #### C BCDF ####[address] [address] MCV (RBC) [Entitic vol] 99 fL Normal 80 - 100 [facility] Comment on above: Order Comment: HO ME CARE TEAM #6 Performed By: #### C BCDF ####[address] [address] Monocytes (Bld) [#/Vol] 0.63 10*3/uL Normal 0.10 - 1.00 [facility] Comment on above: Order Comment: HO ME CARE TEAM #6 Performed By: #### C BCDF ####[address] [address] Monocytes/100 WBC (Bld) 7.4 % Normal 2.0 - 10.0 [facility] Comment on above: Order Comment: HO ME CARE TEAM #6 Performed By: #### C BCDF ####[address] [address] Neutrophils (Bld) [#/Vol] 6.13 10*3/uL Normal 1.20 - 7.70 [facility] Comment on above: Order Comment: HO ME CARE TEAM #6 Result Comment: Perc ent differential counts (%) should be interpreted in the context of the absolute cell counts (cells/L). Performed By: #### C BCDF ####[address] [address] Neutrophils/100 WBC (Bld) 72.4 % Normal 40.0 - 80.0 [facility] Comment on above: Order Comment: HO ME CARE TEAM #6 Performed By: #### C BCDF ####[address] [address] Platelets (Bld) [#/Vol] 346 10*3/uL Normal 150 - 450 [facility] Comment on above: Order Comment: HO ME CARE TEAM #6 Performed By: #### C BCDF ####[address] [address] RBC 3.85 x10E12/L Low 4.50 - 5.90 [facility] Comment on above: Order Comment: HO ME CARE TEAM #6 Performed By: #### C BCDF ####[address] [address] WBC (Bld) [#/Vol] 8.5 10*3/uL Normal 4.4 - 11.3 [facility] Comment on above: Order Comment: HO ME CARE TEAM #6 Performed By: #### C BCDF ####[address] [address] COMPREHENSIVE PANELon 2022 Albumin [Mass/Vol] 3.8 g/dL Normal 3.4 - 5.0 [facility] Comment on above: Order Comment: HO ME CARE TEAM #6 Performed By: #### C MP ####[address] [address] ALP [Catalytic activity/Vol] 50 U/L Normal 33 - 136 [facility] Comment on above: Order Comment: HO ME CARE TEAM #6 Performed By: #### C MP ####[address] [address] ALT [Catalytic activity/Vol] 14 U/L Normal 10 - 52 [facility] Comment on above: Order Comment: HO ME CARE TEAM #6 Result Comment: Radha ents treated with Sulfasalazine may generate falsely decreased results for ALT. Performed By: #### C MP ####[address] [address] Anion gap [Moles/Vol] 15 mmol/L Normal 10 - 20 [facility] Comment on above: Order Comment: HO ME CARE TEAM #6 Performed By: #### C MP ####[address] [address] AST [Catalytic activity/Vol] 17 U/L Normal 9 - 39 [facility] Comment on above: Order Comment: HO ME CARE TEAM #6 Performed By: #### C MP ####[address] [address] Bilirubin [Mass/Vol] 0.5 mg/dL Normal 0.0 - 1.2 [facility] Comment on above: Order Comment: HO ME CARE TEAM #6 Performed By: #### C MP ####[address] [address] Calcium [Mass/Vol] 9.0 mg/dL Normal 8.6 - 10.3 [facility] Comment on above: Order Comment: [facility] CARE TEAM #6 Performed By: #### C MP ####[address] [address] Chloride [Moles/Vol] 103 mmol/L Normal 98 - 107 [facility] Comment on above: Order Comment: [facility] CARE TEAM #6 Performed By: #### C MP ####[address] [address] Creatinine [Mass/Vol] 1.54 mg/dL High 0.50 - 1.30 [facility] Comment on above: Order Comment: [facility] CARE TEAM #6 Performed By: #### C MP ####[address] [address] GFR/1.73 sq M.predicted among non-blacks MDRD (S/P/Bld) [Vol rate/Area] 48 mL/min/{1.73_m2} Abnormal >90 [facility] Comment on above: Order Comment: [facility] CARE TEAM #6 Result Comment: CALC ULATIONS OF ESTIMATED GFR ARE PERFORMED USING THE 2020 CKD-EPI STUDY REFIT EQUATION WITHOUT THE RACE VARIABLE FOR THE IDMS-TRACEABLE CREATININE METHODS.https://jasn.asnjournals.org/content/early//A SN.9065242376 Performed By: #### C MP ####[address] [address] Glucose [Mass/Vol] 185 mg/dL High 74 - 99 [facility] Comment on above: Order Comment: [facility] CARE TEAM #6 Performed By: #### C MP ####[address] [address] HCO3 (Bld) [Moles/Vol] 24 mmol/L Normal 21 - 32 [facility] Comment on above: Order Comment: [facility] CARE TEAM #6 Performed By: #### C MP ####[address] [address] Potassium [Moles/Vol] 3.7 mmol/L Normal 3.5 - 5.3 [facility] Comment on above: Order Comment: [facility] ME CARE TEAM #6 Performed By: #### C MP ####[address] [address] Protein [Mass/Vol] 6.8 g/dL Normal 6.4 - 8.2 [facility] Comment on above: Order Comment: [facility] ME CARE TEAM #6 Performed By: #### C MP ####[address] [address] Sodium [Moles/Vol] 138 mmol/L Normal 136 - 145 [facility] Comment on above: Order Comment: [facility] ME CARE TEAM #6 Performed By: #### C MP ####[address] [address] Urea nitrogen [Mass/Vol] 44 mg/dL High 6 - 23 [facility] Comment on above: Order Comment: [facility] ME CARE TEAM #6 Performed By: #### C MP ####[address] [address] CORONAVIRUS 2019, SCREEN ASY MPTOMATICon 12-02-2022 SARS-CoV-2 (COVID-19) RNA JF+probe Ql (Unsp spec) Not detected Normal Not Detected [facility] Comment on above: Result Comment: .Thi s assay is designed to detect the ORF1a/b and E genes of SARS-CoV-2 vianucleic acid amplification. A Not Detected result does not [id number] infection since the adequacy of sample collection and/or low viralburden may result in presence of viral nucleic acids below the clinicalsensitivity of this test method.Fact sheet for providers: https://www.fda.gov/media/188631/downloadFact sheet for patients: https://www.fda.gov/media/949198/downloadThis test has received FDA Emergency Use Authorization (EUA) and has beenverified for use by [facility] ([facility]).This test is only authorized for the duration of time that circumstancesexist to justify the authorization of the emergency use of in vitrodiagnostic tests for the detection of SARS-CoV-2 virus and/or diagnosis ofCOVID-19 infection under section 564(b)(1) of the Act, 21 U.S.C.360bbb-3(b)(1), unless the authorization is terminated or revoked sooner.[facility] is certified under CLIA-88 asqualified to perform high complexity testing. Testing is performed in [facility] laboratories located at [id number] [place] [address]. Performed By: #### C OVSC ####[id number] COUNTS INCLUDE 234 BEDS AT [facility] [place] [address] Complete Blood Count + Diffe bartoloon 12-02-2022 Basophils/100 WBC (Bld) 0.6 % 0.0 - 2.0 [facility] SHATTUCKOtva hospitalyJim [place] [address] Work Phone: Erythrocyte distribution width (RBC) [Ratio] 15.0 % above high threshold See Below [facility] centery[facility] [place] [address] Work Phone: Comment on above: Reference Range: 11. 5 - 14.5 Hematocrit (Bld) [Volume fraction] 38.2 % below low threshold See Below [facility]ery[facility] [place] [address] Work Phone: Comment on above: Reference Range: 41. 0 - 52.0 Hemoglobin (Bld) [Mass/Vol] 11.9 g/dL below low threshold See Below [facility] centery[facility] [place] [address] Work Phone: Comment on above: Reference Range: 13. 5 - 17.5 Lymphocytes/100 WBC (Bld) 16.5 % See Below [facility] [address] Work Phone: Comment on above: Reference Range: 13. 0 - 44.0 MCHC (RBC) [Mass/Vol] 31.2 g/dL below low threshold See Below [facility] [address] Work Phone: Comment on above: Reference Range: 32. 0 - 36.0 MCV (RBC) [Entitic vol] 99 fL 80 - 100 MG-Otolaryn gology-[place] [address] Work Phone: [phone] Monocytes/100 WBC (Bld) 7.4 % 2.0 - 10.0 MG-Otolaryn gology-[place] [address] Work Phone: [phone] Neutrophils/100 WBC (Bld) 72.4 % See Below MG-Otolaryn gology-[place] [address] Work Phone: [phone] Comment on above: Reference Range: 40. 0 - 80.0 Platelets (Bld) [#/Vol] 346 10*3/uL 150 - 450 -Otolaryn gologyJim [place] [address] Work Phone: [phone] RBC (Bld) [#/Vol] 3.85 {x10E12/L} below low threshold See Below MG-Otolaryn gologyJim [place] [address] Work Phone: [phone] Comment on above: Reference Range: 4.5 0 - 5.90 WBC (Bld) [#/Vol] 8.5 10*3/uL 4.4 - 11.3 MG-Mao laryn [facility] centeryJim [place] [address] Work Phone: [phone] Complete Blood Count + Differential 0.05 {x10E9/L} See Below MG-Otolaryn gologyJim [place] [address] Work Phone: [phone] Comment on above: Reference Range: 0.0 0 - 0.10 Complete Blood Count + Differential 0.16 {x10E9/L} See Below MG-Otolaryn gology-[place] [address] Work Phone: [phone] Comment on above: Reference Range: 0.0 0 - 0.70 Complete Blood Count + Differential 0.63 {x10E9/L} See Below MG-Otolaryn gology-[place] [address] Work Phone: [phone] Comment on above: Reference Range: 0.1 0 - 1.00 Complete Blood Count + Differential 1.40 {x10E9/L} See Below [facility] 410 Work Phone: Comment on above: Reference Range: 1.2 0 - 4.80 Complete Blood Count + Differential 6.13 {x10E9/L} See Below [facility] 410 Work Phone: Comment on above: Reference Range: 1.2 0 - 7.70 Percent differential counts (%) should be interpreted in the context of the absolute cell counts (cells/L). Complete Blood Count + Differential 1.9 % 0.0 - 6.0 [facility] 4100 Work Phone: Complete Blood Count + Differential 1.2 % above high threshold 0.0 - 0.9 [place] [address] Work Phone: Comment on above: Immature Granulocyte Count (IG) includes promyelocytes, myelocytes and metamyelocytes but does not include bands. Percent differential counts (%) should be interpreted in the context of the absolute cell counts (cells/L). Covid 19 Resultson 3 SARS-CoV-2 (COVID-19) RNA JF+probe Ql (Unsp spec) Normal [facility] Laboratory - Chemistry and C hemistry - challengeon 12-02-2022 Albumin BCP dye [Mass/Vol] 3.8 g/dL 3.4 - 5.0 [facility] 4100 Work Phone: ALP [Catalytic activity/Vol] 50 U/L 33 - 136 [facility] 4100 Work Phone: ALT With P-5'-P [Catalytic activity/Vol] 14 U/L 10 - 52 [place] [address] Work Phone: Comment on above: Patients treated wit h Sulfasalazine may generate falsely decreased results for ALT. Anion gap [Moles/Vol] 15 mmol/L 10 - 20 MG- Otolaryn gology-[place] [address] Work Phone: [phone] AST With P-5'-P [Catalytic activity/Vol] 17 U/L 9 - 39 MG-Otolaryn gology-[place] 16[address]40 Work Phone: [phone] Bilirubin [Mass/Vol] 0.5 mg/dL 0.0 - 1.2 MG-O tolaryn gology-[place] 16[address]40 Work Phone: [phone] Calcium [Mass/Vol] 9.0 mg/dL 8.6 - 10.3 MG-Mao laryn gology-[place] 163440 Work Phone: [phone] Chloride [Moles/Vol] 103 mmol/L 98 - 107 MG-O tolaryn gology-[place] [address] Work Phone: [phone] CO2 [Moles/Vol] 24 mmol/L 21 - 32 MG-Otolar yn [facility] westogy-[place] [address]40 Work Phone: [phone] Creatinine [Mass/Vol] 1.54 mg/dL above high threshold See Below MG-Otolaryn gology-[place] [address] Work Phone: [phone] Comment on above: Reference Range: 0.5 0 - 1.30 Glucose [Mass/Vol] 185 mg/dL above high threshold 74 - 99 MG-Otolaryn gology-[place] [address]40 Work Phone: [phone] Potassium [Moles/Vol] 3.7 mmol/L 3.5 - 5.3 MG- Otolaryn gology-[place] [address]40 Work Phone: [phone] Protein [Mass/Vol] 6.8 g/dL 6.4 - 8.2 MG-Mao laryn gology-[place] 16[address]40 Work Phone: [phone] Sodium [Moles/Vol] 138 mmol/L 136 - 145 [facility] 4100 Work Phone: Urea nitrogen [Mass/Vol] 44 mg/dL above high threshold 6 - 23 MG-[facility] 4100 Work Phone: No Panel Informationon 12-02 48 {mL/min/1.73m2} Abnormal >90 [facility] 4100 Work Phone: Comment on above: CALCULATIONS OF REYNALDO MATED GFR ARE PERFORMED USING THE 2020 CKD-EPI STUDY REFIT EQUATION WITHOUT THE RACE VARIABLE FOR THE IDMS-TRACEABLE CREATININE METHODS.https://jasn.asnjournals.org/content/early/A SN.1189217483 Absolute lymphocyte countOrd ered By: Dr. Benitez on 12-01-2022 Lymphocytes Auto (Unsp spec) [#/Vol] 1.84 10*3/uL 0.83-4.51 [facility] Basophil percentageOrdered B y: Dr. Benitez on 12-01-2022 Basophils/100 WBC (Bld) 0.8 % 0-1 [facility] Bilirubin [Mass/Vol] 0.20 mg/dL 0.20-1.00 [facility] Comment on above: For patients on eltr ombopag therapy, use of Dimension [place] TBIL is not recommended. Chloride [Moles/Vol] 108 mmol/L 98-107 [facility] Eosinophils/100 WBC (Bld) 3.1 % 0-5 [facility] Glucose [Mass/Vol] 191 mg/dL 74-106 [facility] Comment on above: Fasting Glucose resu lt greater than or equal to 126 mg/dL suggests DIABETES MELLITUS per A.D.A. criteria. Neutrophils (Bld) [#/Vol] 4.6 10*3/uL 2.0-7.7 [facility] Neutrophils/100 WBC (Bld) 62.0 % 47-70 [facility] Potassium [Moles/Vol] 3.7 mmol/L 3.5-5.1 [facility] Protein [Mass/Vol] 6.8 g/dL 6.4-8.2 [facility] Sodium [Moles/Vol] 138 mmol/L 136-145 [facility] WBC (Bld) [#/Vol] 7.5 10*3/uL 4.4-11.0 [facility] Blood erythrocytes count (nu mber/volume)Ordered By: Dr. Benitez on 12-01-2022 RBC (Bld) [#/Vol] 4.06 10*6/uL 4.6-6.2 [facility] Blood hemoglobin measurement (mass/volume)Ordered By: Dr. Benitez on 12-01-2022 Hemoglobin (Bld) [Mass/Vol] 12.8 g/dL 13.0-16.5 [facility] Blood lymphocytes/100 leukoc ytesOrdered By: Dr. Benitez on 12-01-2022 Lymphocytes/100 WBC (Bld) 24.7 % 19-41 [facility] Blood monocytes/100 leukocyt esOrdered By: Dr. Benitez on 12-01-2022 Monocytes/100 WBC (Bld) 8.7 % 0-10 [facility] Blood platelet mean volumeOr dered By: Dr. Benitez on 12-01-2022 Platelet mean volume (Bld) [Entitic vol] 9.4 fL 6.2-12.0 [facility] CORONAVIRUS 2019, SCREEN ASY MPTOMATICon 12-01-2022 Lab Specimen Source Nasal, Nasopharyngeal Normal [facility] Comment on above: Performed By: #### C OVSC ####[id number] [place] [address] Coronavirus 2019 RNA by PCR, Screening Asymptomticon 12-01-2022 Coronavirus 2019 RNA by PCR, Screening Asymptomtic Not detected Normal See Below [facility] westogyAlt[facility] 7[address] Work Phone: Comment on above: SOURCE: Nasal, Nasop haryngealReference Range: Not Detected.This assay is designed to detect the ORF1a/b and E genes of SARS-CoV-2 via nucleic acid amplification. A Not Detected result does not preclude 2019-nCoV infection since the adequacy of sample collection and/or low viral burden may result in presence of viral nucleic acids below the clinical sensitivity of this test method. Fact sheet for providers: https://www.fda.gov/media/565790/download Fact sheet for patients: https://www.fda.gov/media/475324/download This test has received FDA Emergency Use Authorization (EUA) and has been verified for use by [facility] ([facility]). This test is only authorized for the duration of time that circumstances exist to justify the authorization of the emergency use of in vitro diagnostic tests for the detection of SARS-CoV-2 virus and/or diagnosis of COVID-19 infection under section 564(b)(1) of the Act, 21 U.S.C. 360bbb-3(b)(1), unless the authorization is terminated or revoked sooner.[facility] is certified under CLIA-88 as qualified to perform high complexity testing. Testing is performed in the [facility] laboratories located at [address] [place] [address]. Determination of erythrocyte mean corpuscular volume (MCV)Ordered By: Dr. 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 Rodriguez performed maxilla debridement, has been on IV abx for osteomyelitis now planning for further debridement with reconstruction currently has left maxilla defect after extractions and debridment allens test with good ulnar flow bilaterally discussed free flap reconstruction after debridement completed by Dr. Rodriguez, likely serratus/scapula tip, neck exploration possible tracheostomy, pt already has g-tube for nutrition Chief Complaint: left vanessa-antral fistula Referring Provider: Dr. Key Jasso and Dr. Wartmann Location: left maxilla Quality: fistula, necrotic bone, swelling Severity: moderate Duration: 1.5 years Timing: all times Context: progressive disease of the left maxilla, denies history of smoking Modifying factors: none Associated signs and symptoms: left facial pain, left facial numbness, fistula of the maxillary sinus underwent previous septoplasty and ESS fistula appeared within the last 2 months no biopsies up to this point dental extraction of the left molar with dry socket now with progressive pain, bone exposure, non-healing wound, palate swelling referred for work up CT sinus wo contrast obtained outside, not available for review today Past, family, and social history obtained but not pertinent to current problem unless documented above. All other systems have been reviewed and are negative for complaint unless documented above. Physical Exam: General: Well-developed and well-nourished in appearance. Skin: No rashes or concerning lesions on the visible portions of the skin. Eyes: Extraocular movements intact. Visual randall grossly normal. Ears: Pinna are normal in shape and position. External canals are patent. Nose: Dorsum is midline Oral Cavity/Oropharynx: left posterior maxilla oroantral fistula, necrotic bone alone left maxilla buccal ridge, raised mucosa of the right hard palate Neck: Midline trachea without masses or lesions. Thyroid is normal in size. Lymphatics: No palpable cervical lymphadenopathy Respiratory: No respiratory distress. Quiet breathing without stertor or stridor. Cardiovascular: Regular rate and rhythm. Warm extremities with equal pulses. Psych: Normal mood and affect. Judgement and insight appropriate. Neuro: Alert and oriented. CN II-XII grossly intact. No focal deficits. 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) Pain of tooth on palpation (525.9) (K08.89) Personal history of COVID-19 (V12.09) (Z86.16) Preoperative clearance (V72.84) (Z01.818) Sinus pain (478.19) (J34.89) Type [address] elevation (410.70) (I21.A1) Allergies No Known Allergies Recorded By: Zulema Sequeira; 10/30/2022 9:06:50 AM Current Meds Medication NameInstruction Acarbose 100 MG Oral Tablet Ampicillin-Sulbactam Sodium 3 (2-1) GM Injection Solution Reconstituted Atenolol 50 MG Oral Tablet BD Pen Needle Micro U/F 32G X 6 MM Cefdinir 300 MG Oral CapsuleTAKE 1 CAPSULE EVERY TWELVE HOURS DIRECTED Chlorhexidine Gluconate 0.12 % Mouth/Throat SolutionRINSE MOUTH WITH 15ML (1 CAPFUL) FOR 30 SECONDS AM AND PM AFTER TOOTHBRUSHING. EXPECTORATE AFTER RINSING, DO NOT SWALLOW Cinnamon 500 MG Oral Tablet Clindamycin HCl - 150 MG Oral CapsuleTAKE 3 CAPSULES EVERY 6 HOURS. CONTINUE FOR 10 DAYS AND THEN STOP. Clotrimazole 10 MG Mouth/Throat TrocheDISSOLVE 1 TABLET BY MOUTH 5 TIMES PER DAY Coenzyme Q-10 100 MG Oral Capsule Fluconazole 200 MG Oral Tablet Fluticasone Propionate 50 MCG/ACT Nasal SuspensionUSE 2 SPRAYS IN EACH NOSTRIL ONCE DAILY Fluticasone Propionate 50 MCG/ACT Nasal Suspension Furosemide 20 MG Oral Tablet Glimepiride 4 MG Oral Tablet Hibiclens 4 % External LiquidUSE DIRECTED. hydrALAZINE HCl - 50 MG Oral Tablet Jardiance 25 MG Oral Tablet Losartan Potassium 100 MG Oral Tablet Magnesium Oxide 400 MG Oral Tablet methylPREDNISolone 4 MG Oral Tablet Therapy PackTAKE 6 TABLETS ON DAY 1 DIRECTED ON PACKAGE AND DECREASE BY 1 TAB EACH DAY FOR A TOTAL OF 6 DAYS Multi Vitamin Mens TABS OneTouch Verio In Vitro Solution OneTouch Verio In Vitro Strip Pioglitazone HCl - 30 MG Oral Tablet Psyllium Husk 100 % POWD Red Yeast Rice 600 MG Oral Capsule (more content not included)... Normal [facility] Hematocrit Auto (Bld) [Volum e fraction]Ordered By: Dr. Benitez on 12-01-2022 Hematocrit (Bld) [Volume fraction] 40.4 % 40-54 [facility] INR in Blood by Coagulation assayOrdered By: Dr. Benitez on 12-01-2022 INR Coag (Bld) [Relative time] 5.9 {INR} [facility] Laboratory - Chemistry and C hemistry - challengeOrdered By: Dr. Benitez on 12-01-2022 ALP [Catalytic activity/Vol] 63 U/L 45-117 [facility] ALT [Catalytic activity/Vol] 24 U/L 16-61 [facility] CO2 [Moles/Vol] 25.0 mmol/L 21.0-32.0 [facility] Globulin (S) [Mass/Vol] 3.9 g/dL 2.2-4.2 [facility] Urea nitrogen/Creatinine [Mass ratio] 16.9 mg/mg 10-20 [facility] Laboratory - Coagulationon 0 12-01-2022 INR Coag (PPP) [Relative time] 1.3 {INR} above high threshold 0.9 - 1.1 [facility]ologM[facility] 4[facility] Work Phone: PT Coag (PPP) [Time] 14.9 s above high threshold 9.8 - 13.4 [facility] 4100 Work Phone: Laboratory - CoagulationOrde red By: Dr. Benitez on 12-01-2022 PT Coag (PPP) [Time] 52.9 s 11.7-14.9 [facility] Laboratory - Hematology and Cell countsOrdered By: Dr. Benitez on 12-01-2022 Erythrocyte distribution width (RBC) [Entitic vol] 54.3 fL 35.1-43.9 [facility] Erythrocyte distribution width (RBC) [Ratio] 14.9 % 11.6-14.6 [facility] Immature granulocytes/100 WBC (Bld) 0.700 % 0.0-0.9 [facility] Comment on above: IG% - Immature Granu locytes (promyelocytes, myelocytes and metamyelocytes) > 1% indicates that a LEFT SHIFT is Present. MCH (RBC) [Entitic mass] 31.5 pg 27.0-32.0 [facility] Nucleated RBC/100 WBC (Bld) [Ratio] 0 % 0-5 [facility] Auto (RBC) [Mass/Vol]Or dered By: Dr. Benitez on 12-01-2022 [facility] (RBC) [Mass/Vol] 31.7 g/dL 32-36 [facility] No Panel InformationOrdered By: Dr. 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 Rodriguez performed maxilla debridement, has been on IV abx for osteomyelitis now planning for further debridement with reconstruction currently has left maxilla defect after extractions and debridment allens test with good ulnar flow bilaterally discussed free flap reconstruction after debridement completed by Dr. Rodriguez, likely serratus/scapula tip, neck exploration possible tracheostomy, pt already has g-tube for nutrition Chief Complaint: left vanessa-antral fistula Referring Provider: Dr. Key Jasso and Dr. Sutherland Location: left maxilla Quality: fistula, necrotic bone, swelling Severity: moderate Duration: 1.5 years Timing: all times Context: progressive disease of the left maxilla, denies history of smoking Modifying factors: none Associated signs and symptoms: left facial pain, left facial numbness, fistula of the maxillary sinus underwent previous septoplasty and ESS fistula appeared within the last 2 months no biopsies up to this point dental extraction of the left molar with dry socket now with progressive pain, bone exposure, non-healing wound, palate swelling referred for work up CT sinus wo contrast obtained outside, not available for review today Past, family, and social history obtained but not pertinent to current problem unless documented above. All other systems have been reviewed and are negative for complaint unless documented above. Physical Exam: General: Well-developed and well-nourished in appearance. Skin: No rashes or concerning lesions on the visible portions of the skin. Eyes: Extraocular movements intact. Visual randall grossly normal. Ears: Pinna are normal in shape and position. External canals are patent. Nose: Dorsum is midline Oral Cavity/Oropharynx: left posterior maxilla oroantral fistula, necrotic bone alone left maxilla buccal ridge, raised mucosa of the right hard palate Neck: Midline trachea without masses or lesions. Thyroid is normal in size. Lymphatics: No palpable cervical lymphadenopathy Respiratory: No respiratory distress. Quiet breathing without stertor or stridor. Cardiovascular: Regular rate and rhythm. Warm extremities with equal pulses. Psych: Normal mood and affect. Judgement and insight appropriate. Neuro: Alert and oriented. CN II-XII grossly intact. No focal deficits. 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) Pain of tooth on palpation (525.9) (K08.89) Personal history of COVID-19 (V12.09) (Z86.16) Preoperative clearance (V72.84) (Z01.818) Sinus pain (478.19) (J34.89) Type [address] elevation (410.70) (I21.A1) Allergies NoKnown No Known Allergies Recorded By: Zulema Sequeira; 10/30/2022 9:06:50 AM Current Meds Medication NameInstruction Acarbose 100 MG Oral Tablet Ampicillin-Sulbactam Sodium 3 (2-1) GM Injection Solution Reconstituted Atenolol 50 MG Oral Tablet BD Pen Needle Micro U/F 32G X 6 MM Cefdinir 300 MG Oral CapsuleTAKE 1 CAPSULE EVERY TWELVE HOURS DIRECTED Chlorhexidine Gluconate 0.12 % Mouth/Throat SolutionRINSE MOUTH WITH 15ML (1 CAPFUL) FOR 30 SECONDS AM AND PM AFTER TOOTHBRUSHING. EXPECTORATE AFTER RINSING, DO NOT SWALLOW Cinnamon 500 MG Oral Tablet Clindamycin HCl - 150 MG Oral CapsuleTAKE 3 CAPSULES EVERY 6 HOURS. CONTINUE FOR 10 DAYS AND THEN STOP. Clotrimazole 10 MG Mouth/Throat TrocheDISSOLVE 1 TABLET BY MOUTH 5 TIMES PER DAY Coenzyme Q-10 100 MG Oral Capsule Fluconazole 200 MG Oral Tablet Fluticasone Propionate 50 MCG/ACT Nasal SuspensionUSE 2 SPRAYS IN EACH NOSTRIL ONCE DAILY Fluticasone Propionate 50 MCG/ACT Nasal Suspension Furosemide 20 MG Oral Tablet Glimepiride 4 MG Oral Tablet Hibiclens 4 % External LiquidUSE DIRECTED. hydrALAZINE HCl - 50 MG Oral Tablet Jardiance 25 MG Oral Tablet Losartan Potassium 100 MG Oral Tablet Magnesium Oxide 400 MG Oral Tablet methylPREDNISolone 4 MG Oral Tablet Therapy PackTAKE 6 TABLETS ON DAY 1 DIRECTED ON PACKAGE AND (more content not included)... Normal [employer] PT/INRon 12-01-2022 PT Coag (PPP) [Time] 14.9 s High 9.8 - 13.4 [facility] Comment on above: Performed By: #### P TINR ####[facility] [id number] [place] [address] PT, INR 1.3 High 0.9 - 1.1 [facility] Comment on above: Performed By: #### P TINR ####[id number] [place] [address] Platelets bldOrdered By: Dr. Benitez on 12-01-2022 Platelets (Bld) [#/Vol] 300 10*3/uL 150-450 [facility] Serum or plasma albumin lisa urement (mass/volume)Ordered By: Dr. Benitez on 12-01-2022 Albumin [Mass/Vol] 2.9 g/dL 3.2-5.0 [facility] Serum or plasma albumin/glob ulin mass ratioOrdered By: Dr. Benitez on 12-01-2022 Albumin/Globulin [Mass ratio] 0.7 {ratio} 0.9-2.4 [facility] Serum or plasma calcium lisa urement (mass/volume)Ordered By: Dr. Benitez on 12-01-2022 Calcium [Mass/Vol] 8.9 mg/dL 8.5-10.1 [facility] Serum or plasma creatinine m easurement (mass/volume)Ordered By: Dr. Benitez on 12-01-2022 Creatinine [Mass/Vol] 1.78 mg/dL 0.70-1.30 [facility] Comment on above: The validity of the calculated GFR & GFRAA in patients over 70 years has not been determined. Clinical correlation is essential. Serum or plasma urea nitroge n measurement (mass/volume)Ordered By: Dr. Benitez on 12-01-2022 Urea nitrogen [Mass/Vol] 30 mg/dL 7-18 [facility] Thin prep Papanicolaou smear with manual screeningOrdered By: Dr. Benitez on 12-01-2022 Thin prep Papanicolaou smear with manual screening 20 U/L 15-37 [facility] Thin prep Papanicolaou smear with manual screening 5 5-15 [facility] Tobacco Screening.on 023 Adult depression screening assessment No [facility] 4100 Work Phone: Fall risk assessment a) No falls within the last year [facility]Otbunnlevelyn [facility] 4100 Work Phone: Tobacco use status CPHS b) No -Otolaryn [facility] 4100 Work Phone: BASIC METABOLIC PANELon 11-15 Anion gap [Moles/Vol] 17 mmol/L Normal 10 - 20 [facility] Comment on above: Performed By: #### B MP ####[id number] [place] [address] Calcium [Mass/Vol] 9.4 mg/dL Normal 8.6 - 10.6 [facility] Comment on above: Performed By: #### B MP ####[id number] [place] [address] Chloride [Moles/Vol] 100 mmol/L Normal 98 - 107 [facility] Comment on above: Performed By: #### B MP ####[id number] [place] [address] Creatinine [Mass/Vol] 1.52 mg/dL High 0.50 - 1.30 [facility] Comment on above: Performed By: #### B MP ####[id number] [place] [address] GFR/1.73 sq M.predicted among non-blacks MDRD (S/P/Bld) [Vol rate/Area] 49 mL/min/{1.73_m2} Abnormal >90 [facility] Comment on above: Result Comment: CALC ULATIONS OF ESTIMATED GFR ARE PERFORMED USING THE 2020 CKD-EPI STUDY REFIT EQUATION WITHOUT THE RACE VARIABLE FOR THE IDMS-TRACEABLE CREATININE METHODS.https://jasn.asnjournals.org/content//A SN.5135905932 Performed By: #### B MP ####[id number] [place] [address] Glucose [Mass/Vol] 140 mg/dL High 74 - 99 [facility] Comment on above: Performed By: #### B MP ####[id number] [place] [address] HCO3 (Bld) [Moles/Vol] 26 mmol/L Normal 21 - 32 [facility] Comment on above: Performed By: #### B MP ####[id number] [place] [address] Potassium [Moles/Vol] 3.7 mmol/L Normal 3.5 - 5.3 [facility] Comment on above: Performed By: #### B MP ####[id number] [place] [address] Sodium [Moles/Vol] 139 mmol/L Normal 136 - 145 [facility] Comment on above: Performed By: #### B MP ####[id number] [place] [address] Urea nitrogen [Mass/Vol] 20 mg/dL Normal 6 - 23 [facility] Comment on above: Performed By: #### B MP ####[id number] [place] [address] C-REACTIVE PROTEINon 023 C-REACTIVE PROTEIN 0.88 mg/dL Normal [facility] Comment on above: Result Comment: REF VALUE< 1.00 Performed By: #### C RP ####[id number] [place] [address] CBC AND DIFFERENTIALon 11-25 % AUTOMATED IMMATURE GRAN 0.7 % Normal 0.0 - 0.9 [facility] Comment on above: Result Comment: Sarah ture Granulocyte Count (IG) includes promyelocytes, myelocytes and metamyelocytes but does not include bands. Percent differential counts (%) should be interpreted in the context of the absolute cell counts (cells/L). Performed By: #### C BCDF ####[id number] [place] [address] Basophils (Bld) [#/Vol] 0.04 10*3/uL Normal 0.00 - 0.10 [facility] Comment on above: Performed By: #### C BCDF ####[id number] [place] [address] Basophils/100 WBC (Bld) 0.5 % Normal 0.0 - 2.0 [facility] Comment on above: Performed By: #### C BCDF ####[id number] [place] [address] Eosinophils (Bld) [#/Vol] 0.13 10*3/uL Normal 0.00 - 0.70 [facility] Comment on above: Performed By: #### C BCDF ####[id number] [place] [address] Eosinophils/100 WBC (Bld) 1.5 % Normal 0.0 - 6.0 [facility] Comment on above: Performed By: #### C BCDF ####[id number] [place] [address] Erythrocyte distribution width (RBC) [Ratio] 14.8 % High 11.5 - 14.5 [facility] Comment on above: Performed By: #### C BCDF ####[id number] [place] [address] Hematocrit (Bld) [Volume fraction] 42.7 % Normal 41.0 - 52.0 [facility] Comment on above: Performed By: #### C BCDF ####[id number] [place] [address] Hemoglobin (Bld) [Mass/Vol] 13.7 g/dL Normal 13.5 - 17.5 [facility] Comment on above: Performed By: #### C BCDF ####[id number] [place] [address] Lymphocytes (Bld) [#/Vol] 1.65 10*3/uL Normal 1.20 - 4.80 [facility] Comment on above: Performed By: #### C BCDF ####[id number] [place] [address] Lymphocytes/100 WBC (Bld) 19.3 % Normal 13.0 - 44.0 [facility] Comment on above: Performed By: #### C BCDF ####[id number] [place] [address] MCHC (RBC) [Mass/Vol] 32.1 g/dL Normal 32.0 - 36.0 [facility] Comment on above: Performed By: #### C BCDF ####[id number] [place] [address] MCV (RBC) [Entitic vol] 98 fL Normal 80 - 100 [facility] Comment on above: Performed By: #### C BCDF ####[id number] [place] [address] Monocytes (Bld) [#/Vol] 0.60 10*3/uL Normal 0.10 - 1.00 [facility] Comment on above: Performed By: #### C BCDF ####[id number] [place] [address] Monocytes/100 WBC (Bld) 7.0 % Normal 2.0 - 10.0 [facility] Comment on above: Performed By: #### C BCDF ####[id number] [place] [address] Neutrophils (Bld) [#/Vol] 6.07 10*3/uL Normal 1.20 - 7.70 [facility] Comment on above: Performed By: #### C BCDF ####[id number] [place] [address] Neutrophils/100 WBC (Bld) 71.0 % Normal 40.0 - 80.0 [facility] Comment on above: Performed By: #### C BCDF ####[id number] [place] [address] NUCLEATED RBC 0.0 /100 WBC Normal 0.0-0.0 [facility] Comment on above: Performed By: #### C BCDF ####[id number] [place] [address] Platelets (Bld) [#/Vol] 330 10*3/uL Normal 150 - 450 [facility] Comment on above: Performed By: #### C BCDF ####[id number] [place] [address] RBC 4.36 x10E12/L Low 4.50 - 5.90 [facility] Comment on above: Performed By: #### C BCDF ####[id number] [place] [address] WBC (Bld) [#/Vol] 8.6 10*3/uL Normal 4.4 - 11.3 [facility] Comment on above: Performed By: #### C BCDF ####[id number] [place] [address] Established Visit (Otolaryng ology)on 11-25-2022 Established Visit (Otolaryngology) Provider Impressions 72 yo man with a destructive process involving much of the left maxilla CT - mottled appearance throughout the maxilla involving nearly all of the premaxilla bl, and posteriorly into the ptyergoid plates biopsy - neg for malignancy reviewed cultures - mixed infection, beta-lactamase+ with dania -follow up path for OR but this is likely just osteomyelitis from a sinus infection -reviewed repeat CT sinus, there is still a small area of residual necrotic bone over the right incisor / canine -discussed with pt that we will plan for a reconstructive procedure in December with Dr. amador, i would perform a FESS to open the rest of the sinuses, and likely remove the remaining 3 anterior maxilla teeth and premaxilla. dr amador would perform a free flap on him for reconstruction -flonase daily, OR planning Chief Complaint follow up Adult Risk ScreeningAdult Risk Screening_: There are no spiritual/cultural practices/values/needs that are important to know Initial Fall Risk Screening: BRENDON has not fallen in the last 6 months. His fall did not result in injury. BRENDON does not have a fear of falling. He does not need assistance with sitting, standing or walking. Does not need assistance walking in his home. He does not need assistance in an unfamiliar setting. The patient is not using an assistive device. Pain Scale: On a scale of 0 to 10, the patient rates the pain at 0. Tobacco Screening: BRENDON does not use tobacco. The patient is comfortable filling out medical forms. Food Insecurity: 1. Within the past 12 months, you worried that your food would run out before you got money to buy more: No 2. Within the past 12 months, the food you bought just didn't last and you didn't have money to get more: No History of Present Illness 72 yo man who presents for evaluation of pain and swelling in the jaw. He start noticing problems with swelling almost 2 years ago, but more recently has had leakage of food/water from his nose. He had a tooth extracted which didn't help. Had CT scans done. Saw dr. Amador and was referred to me. non smoker. on coumadin for blood clot in the leg. no history of cad. 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 EXPECTORATE AFTER RINSING, DO NOT SWALLOW Cinnamon 500 MG Oral Tablet Clindamycin HCl - 150 MG Oral CapsuleTAKE 3 CAPSULES EVERY 6 HOURS. CONTINUE FOR 10 DAYS AND THEN STOP. Coenzyme Q-10 100 MG Oral Capsule Fluticasone Propionate 50 MCG/ACT Nasal Suspension Furosemide 20 MG Oral Tablet Glimepiride 4 MG Oral Tablet Hibiclens 4 % External LiquidUSE DIRECTED. hydrALAZINE HCl - 50 MG Oral Tablet Jardiance 25 MG Oral Tablet Losartan Potassium 100 MG Oral Tablet Magnesium Oxide 400 MG Oral Tablet Multi Vitamin Mens TABS OneTouch Verio In Vitro Solution OneTouch Verio In Vitro Strip Pioglitazone HCl - 30 MG Oral Tablet Psyllium Husk 100 % POWD Red Yeast Rice 600 MG Oral Capsule Selenium 200 MCG Oral Tablet Spironolactone 50 MG Oral Tablet True Metrix Blood Glucose Test In Vitro Strip True Metrix Go Glucose Meter w/Device Kit Trulicity 3 MG/0.5ML Subcutaneous Solution Pen-injector Vitamin C 1000 MG Oral Tablet Vitamin D 1000 UNIT TABS Warfarin Sodium 1 MG Oral Tablet Warfarin Sodium 5 MG Oral Tablet Zinc TABS Vitals Vital Signs Recorded: 25Nov2022 02:39PM Uspsczveind14 F, Temporal Heart Rate59 Rbeupryallg45 Wnqwwabx243 Wpwsdhtyw95 Height6 ft 1 in Tbimvb292 lb 8 oz BMI Rxfuwwtslp92.14 kg/m2 BSA Calculated2.49 Tobacco Useb) No PHQ-2 #1. Over the last 2 weeks have you felt down, depressed or hopeless? (If yes, answer PHQ-9 below)No PHQ-2 #2. Over the last 2 weeks have you felt little interest or pleasure in doing things? (If yes, answer PHQ-9 below)No Falls Screening (Age 18+)a) No falls within the last year O2 Gsoptkjoqx00, RA Physical Exam nad alert cayden eomi NCAt nasal cavity clear ocop - large defect left maxilla with some crusting, remaining dentition stable, no purulence 'Scores and Scales' Signatures Electronically signed by (more content not included)... Normal [facility] Tobacco Screening.on 023 Adult depression screening assessment No -Infectio [facility] [employer] Phone: Fall risk assessment a) No falls within the last year MG-Infectio [facility] [employer] Phone: Tobacco use status CPHS b) No MG-Infectio [facility] [employer] Phone: C Reactive Protein, Serumon 11-24-2022 CRP [Mass/Vol] 0.88 mg/dL MG-Infecti o [facility] [employer] Phone: Comment on above: REF VALUE< 1.00 Complete Blood Count + Diffe rentialon 11-24-2022 Basophils/100 WBC (Bld) 0.5 % 0.0 - 2.0 MG-Infectio [facility] [employer] Phone: Erythrocyte distribution width (RBC) [Ratio] 14.8 % above high threshold See Below -Infectio [facility] [employer] Work Phone: Comment on above: Reference Range: 11. 5 - 14.5 Hematocrit (Bld) [Volume fraction] 42.7 % See Below -Infectio [facility] [employer] Phone: Comment on above: Reference Range: 41. 0 - 52.0 Hemoglobin (Bld) [Mass/Vol] 13.7 g/dL See Below MG-Infectio [facility] [employer] Work Phone: [phone] Comment on above: Reference Range: 13. 5 - 17.5 Lymphocytes/100 WBC (Bld) 19.3 % See Below MG-[facility]fectio [facility] [employer] Phone: [phone] Comment on above: Reference Range: 13. 0 - 44.0 MCHC (RBC) [Mass/Vol] 32.1 g/dL See Below MG- Infectio [facility] [employer] Phone: [phone] Comment on above: Reference Range: 32. 0 - 36.0 MCV (RBC) [Entitic vol] 98 fL 80 - 100 MG-[facility]fectio [facility] [employer] Phone: [phone] Monocytes/100 WBC (Bld) 7.0 % 2.0 - 10.0 MG-Infectio us [facility] [employer] Phone: [phone] Neutrophils/100 WBC (Bld) 71.0 % See Below MG-Infectio us [facility] [employer] Phone: [phone] Comment on above: Reference Range: 40. 0 - 80.0 Platelets (Bld) [#/Vol] 330 10*3/uL 150 - 450 MG-Infectio us [facility] [employer] Phone: [phone] RBC (Bld) [#/Vol] 4.36 {x10E12/L} below low threshold See Below MG-Infectio us [facility] [employer] Phone: [phone] Comment on above: Reference Range: 4.5 0 - 5.90 WBC (Bld) [#/Vol] 8.6 10*3/uL 4.4 - 11.3 MG-Inf ectio us [facility] [employer] Work Phone: [phone] Complete Blood Count + Differential 0.04 {x10E9/L} See Below MG-Infectio us [facility] [employer] Work Phone: Comment on above: Reference Range: 0.0 0 - 0.10 Complete Blood Count + Differential 0.13 {x10E9/L} See Below -Infectio us [facility] [employer] Work Phone: Comment on above: Reference Range: 0.0 0 - 0.70 Complete Blood Count + Differential 0.60 {x10E9/L} See Below MG-Infectio [facility] [employer] Work Phone: Comment on above: Reference Range: 0.1 0 - 1.00 Complete Blood Count + Differential 1.65 {x10E9/L} See Below MG-Infectio [facility] [employer] Work Phone: Comment on above: Reference Range: 1.2 0 - 4.80 Complete Blood Count + Differential 6.07 {x10E9/L} See Below -Infectio us [facility] [employer] Phone: Comment on above: Reference Range: 1.2 0 - 7.70 Complete Blood Count + Differential 1.5 % 0.0 - 6.0 MG-Infectio [facility] [employer] Phone: Complete Blood Count + Differential 0.7 % 0.0 - 0.9 MG-Infectio us [facility] [employer] Phone: Comment on above: Immature Granulocyte Count (IG) includes promyelocytes, myelocytes and metamyelocytes but does not include bands. Percent differential counts (%) should be interpreted in the context of the absolute cell counts (cells/L). Complete Blood Count + Differential 0.0 {/100_WBC} 0.0-0.0 MG-Infectio [facility] [employer] Work Phone: Laboratory - Chemistry and C hemistry - challengeon 11-24-2022 Anion gap [Moles/Vol] 17 mmol/L 10 - 20 MG- Infectio us [facility] [employer] Phone: Calcium [Mass/Vol] 9.4 mg/dL 8.6 - 10.6 MG-Inf ectio [facility] [employer] Work Phone: Chloride [Moles/Vol] 100 mmol/L 98 - 107 MG-I nfectio [facility] [employer] Work Phone: CO2 [Moles/Vol] 26 mmol/L 21 - 32 MG-Infect io [facility] [employer] Work Phone: Creatinine [Mass/Vol] 1.52 mg/dL above high threshold See Below MG-Infectio [facility] [employer] Work Phone: Comment on above: Reference Range: 0.5 0 - 1.30 Glucose [Mass/Vol] 140 mg/dL above high threshold 74 - 99 MG-Infectio [facility] [employer] Work Phone: Potassium [Moles/Vol] 3.7 mmol/L 3.5 - 5.3 MG- Infectio [facility] [employer] Work Phone: Sodium [Moles/Vol] 139 mmol/L 136 - 145 MG-Inf ectio [facility] [employer] Work Phone: Urea nitrogen [Mass/Vol] 20 mg/dL 6 - 23 MG-Infectio [facility] [employer] Work Phone: No Panel Informationon 11-24 49 {mL/min/1.73m2} Abnormal >90 MG-Inf ectio [facility] [employer] Work Phone: Comment on above: CALCULATIONS OF REYNALDO MATED GFR ARE PERFORMED USING THE 2020 CKD-EPI STUDY REFIT EQUATION WITHOUT THE RACE VARIABLE FOR THE IDMS-TRACEABLE CREATININE METHODS.https://jasn.asnjournals.org/content//A SN.5183100347 CBCon 11-18-2022 Erythrocyte distribution width (RBC) [Ratio] 14.1 % Normal 11.5 - 14.5 [facility] Comment on above: Performed By: #### C ####[id number] [place] [address] Hematocrit (Bld) [Volume fraction] 38.7 % Low 41.0 - 52.0 [facility] Comment on above: Performed By: #### C BC ####[id number] [place] [address] Hemoglobin (Bld) [Mass/Vol] 13.1 g/dL Low 13.5 - 17.5 [facility] Comment on above: Performed By: #### C BC ####[id number] [place] [address] MCHC (RBC) [Mass/Vol] 33.9 g/dL Normal 32.0 - 36.0 [facility] Comment on above: Performed By: #### C BC ####[id number] [place] [address] MCV (RBC) [Entitic vol] 92 fL Normal 80 - 100 [facility] Comment on above: Performed By: #### C BC ####[id number] [place] [address] NUCLEATED RBC 0.0 /100 WBC Normal 0.0-0.0 [facility] Comment on above: Performed By: #### C BC ####[id number] [place] [address] Platelets (Bld) [#/Vol] 284 10*3/uL Normal 150 - 450 [facility] Comment on above: Performed By: #### C BC ####[id number] [place] [address] RBC 4.20 x10E12/L Low 4.50 - 5.90 [facility] Comment on above: Performed By: #### C BC ####[id number] [place] [address] WBC (Bld) [#/Vol] 8.3 10*3/uL Normal 4.4 - 11.3 [facility] Comment on above: Performed By: #### C BC ####[id number] [place] [address] Clinical Note - Pharmacy v2- Discharge Med Counselingon 11-18-2022 Clinical Note - Pharmacy v2-Discharge Med Counseling Normal [facility] Laboratory - Coagulationon 0 11-18-2022 INR Coag (PPP) [Relative time] 1.1 {INR} 0.9 - 1.1 MG-Infectio [facility] [employer] Phone: PT Coag (PPP) [Time] 12.5 s 9.8 - 13.4 MG-I nfectio us [facility] [employer] Work Phone: Laboratory - Hematology and Cell countson 11-18-2022 Erythrocyte distribution width (RBC) [Ratio] 14.1 % See Below MG-Infectio [facility] [employer] Work Phone: Comment on above: Reference Range: 11. 5 - 14.5 Hematocrit (Bld) [Volume fraction] 38.7 % below low threshold See Below MG-Infectio us [facility] [employer] Phone: Comment on above: Reference Range: 41. 0 - 52.0 Hemoglobin (Bld) [Mass/Vol] 13.1 g/dL below low threshold See Below MG-Infectio us [facility] [employer] Phone: Comment on above: Reference Range: 13. 5 - 17.5 MCHC (RBC) [Mass/Vol] 33.9 g/dL See Below MG- Infectio us [facility] [employer] Phone: Comment on above: Reference Range: 32. 0 - 36.0 MCV (RBC) [Entitic vol] 92 fL 80 - 100 MG-Infectio us [facility] [employer] Work Phone: Platelets (Bld) [#/Vol] 284 10*3/uL 150 - 450 MG-Infectio us [facility] [employer] Work Phone: RBC (Bld) [#/Vol] 4.20 {x10E12/L} below low threshold See Below MG-Infectio us [facility] [employer] Phone: Comment on above: Reference Range: 4.5 0 - 5.90 WBC (Bld) [#/Vol] 8.3 10*3/uL 4.4 - 11.3 MG-Inf ectio us Disease-[facility] [employer] Work Phone: MAGNESIUMon 11-18-2022 Magnesium [Mass/Vol] 2.13 mg/dL Normal 1.60 - 2.40 [facility] Comment on above: Performed By: #### M G ####[id number] [place] [address] Magnesium, Serumon 3 Magnesium [Mass/Vol] 2.13 mg/dL See Below MG-I nfectio us Disease-[facility] [employer] Work Phone: Comment on above: Reference Range: 1.6 0 - 2.40 No Panel Informationon 11-18 0.0 {/100_WBC} 0.0-0.0 MG-Infecti o us Disease-[facility] [employer] Work Phone: PT/INRon 11-18-2022 PT Coag (PPP) [Time] 12.5 s Normal 9.8 - 13.4 [facility] Comment on above: Performed By: #### P TINR ####[id number] [place] [address] PT, INR 1.1 Normal 0.9 - 1.1 [facility] Comment on above: Performed By: #### P TINR ####[id number] [place] [address] RENAL FUNCTION PANELon 11-18 Albumin [Mass/Vol] 3.6 g/dL Normal 3.4 - 5.0 [facility] Comment on above: Performed By: #### R ENAL ####[id number] [place] [address] Anion gap [Moles/Vol] 13 mmol/L Normal 10 - 20 [facility] Comment on above: Performed By: #### R ENAL ####[id number] [place] [address] Calcium [Mass/Vol] 9.1 mg/dL Normal 8.6 - 10.6 [facility] Comment on above: Performed By: #### R ENAL ####[id number] [place] [address] Chloride [Moles/Vol] 102 mmol/L Normal 98 - 107 [facility] Comment on above: Performed By: #### R ENAL ####[id number] [place] [address] Creatinine [Mass/Vol] 1.15 mg/dL Normal 0.50 - 1.30 [facility] Comment on above: Performed By: #### R ENAL ####[id number] [place] [address] GFR/1.73 sq M.predicted among non-blacks MDRD (S/P/Bld) [Vol rate/Area] 68 mL/min/{1.73_m2} Normal >90 [facility] Comment on above: Result Comment: CALC ULATIONS OF ESTIMATED GFR ARE PERFORMED USING THE 2020 CKD-EPI STUDY REFIT EQUATION WITHOUT THE RACE VARIABLE FOR THE IDMS-TRACEABLE CREATININE METHODS.https://jasn.asnjournals.org/content//A SN.[id number] Performed By: #### R ENAL ####[id number] [place] [address] Glucose [Mass/Vol] 143 mg/dL High 74 - 99 [facility] Comment on above: Performed By: #### R ENAL ####[id number] [place] [address] HCO3 (Bld) [Moles/Vol] 26 mmol/L Normal 21 - 32 [facility] Comment on above: Performed By: #### R ENAL ####[id number] [place] [address] Phosphate [Mass/Vol] 3.0 mg/dL Normal 2.5 - 4.9 [facility] Comment on above: Result Comment: The performance characteristics of phosphorus testing in heparinized plasma have been validated by the individual laboratory site where testing is performed. Testing on heparinized plasma is not approved by the FDA; however, such approval is not necessary. Performed By: #### R ENAL ####[id number] [place] [address] Potassium [Moles/Vol] 4.3 mmol/L Normal 3.5 - 5.3 [facility] Comment on above: Performed By: #### R ENAL ####[id number] [place] [address] Sodium [Moles/Vol] 137 mmol/L Normal 136 - 145 [facility] Comment on above: Performed By: #### R ENAL ####[id number] [place] [address] Urea nitrogen [Mass/Vol] 16 mg/dL Normal 6 - 23 [facility] Comment on above: Performed By: #### R ENAL ####[id number] [place] [address] Renal Function Panelon 11-18 Albumin BCP dye [Mass/Vol] 3.6 g/dL 3.4 - 5.0 MG-Infectio [facility] [employer] Work Phone: Anion gap [Moles/Vol] 13 mmol/L 10 - 20 MG- Infectio [facility] [employer] Work Phone: Calcium [Mass/Vol] 9.1 mg/dL 8.6 - 10.6 MG-Inf ectio us [facility] [employer] Work Phone: Chloride [Moles/Vol] 102 mmol/L 98 - 107 MG-I nfectio [facility] [employer] Work Phone: CO2 [Moles/Vol] 26 mmol/L 21 - 32 MG-Infect io [facility] [employer] Work Phone: Creatinine [Mass/Vol] 1.15 mg/dL See Below MG- Infectio [facility] [employer] Work Phone: Comment on above: Reference Range: 0.5 0 - 1.30 Glucose [Mass/Vol] 143 mg/dL above high threshold 74 - 99 MG-Infectio [facility] [employer] Work Phone: Phosphate [Mass/Vol] 3.0 mg/dL 2.5 - 4.9 MG-I nfectio [facility] [employer] Work Phone: Comment on above: The performance violet acteristics of phosphorus testing in heparinized plasma have been validated by the individual laboratory site where testing is performed. Testing on heparinized plasma is not approved by the FDA; however, such approval is not necessary. Potassium [Moles/Vol] 4.3 mmol/L 3.5 - 5.3 MG- Infectio us Disease-[facility] [employer] Work Phone: Sodium [Moles/Vol] 137 mmol/L 136 - 145 MG-Inf ectio [facility] [employer] Work Phone: Urea nitrogen [Mass/Vol] 16 mg/dL 6 - 23 MG-Infectio [facility] [employer] Work Phone: Renal Function Panel 68 {mL/min/1.73m2} >90 MG-Infectio us [facility] [employer] Work Phone: Comment on above: CALCULATIONS OF REYNALDO MATED GFR ARE PERFORMED USING THE 2020 CKD-EPI STUDY REFIT EQUATION WITHOUT THE RACE VARIABLE FOR THE IDMS-TRACEABLE CREATININE METHODS.https://jasn.asnjournals.org/content//A SN.6369663901 Daily Progress Note-ENTon Daily Progress Note-ENT Normal [facility] Daily Progress Note-ENT Normal [facility] Daily Progress Note-Infectio us Diseaseon 11-17-2022 Daily Progress Note-Infectious Disease Normal [facility] Discharge [id number] [id number] Discharge Profile2 Normal [facility] GLUCOSE-POCTon 11-17-2022 Glucose [Mass/Vol] 181 mg/dL High 74 - 99 [facility] Comment on above: Performed By: #### G SUSAN ####[id number] [place] [address] Glucose [Mass/Vol] 145 mg/dL High 74 - 99 [facility] Comment on above: Performed By: #### G SUSAN ####[id number] [place] [address] Glucose [Mass/Vol] 102 mg/dL High 74 - 99 [facility] Comment on above: Performed By: #### G SUSAN ####[id number] [place] [address] Laboratory - Chemistry and C hemistry - challengeon 11-17-2022 Glucose [Mass/Vol] 181 mg/dL above high threshold 74 - 99 MG-Infectio us Disease-[facility] [employer] Work Phone: Glucose [Mass/Vol] 145 mg/dL above high threshold 74 - 99 [facility] 4[facility] Work Phone: Laboratory - Coagulationon 0 11-17-2022 INR Coag (PPP) [Relative time] 1.1 {INR} 0.9 - 1.1 MG-Otolaryn [facility] 4100 Work Phone: PT Coag (PPP) [Time] 12.6 s 9.8 - 13.4 MG-O tolaryn [facility] 4100 Work Phone: Order Reconciliationon 11-17 Order Reconciliation Normal [facility] PT/INRon 11-17-2022 PT Coag (PPP) [Time] 12.6 s Normal 9.8 - 13.4 [facility] Comment on above: Performed By: #### P TINR ####[id number] [place] [address] PT, INR 1.1 Normal 0.9 - 1.1 [facility] Comment on above: Performed By: #### P TINR ####[id number] [place] [address] CBCon 11-16-2022 Erythrocyte distribution width (RBC) [Ratio] 14.3 % Normal 11.5 - 14.5 [facility] Comment on above: Performed By: #### C BC ####[id number] [place] [address] Hematocrit (Bld) [Volume fraction] 40.6 % Low 41.0 - 52.0 [facility] Comment on above: Performed By: #### C BC ####[id number] [place] [address] Hemoglobin (Bld) [Mass/Vol] 13.5 g/dL Normal 13.5 - 17.5 [facility] Comment on above: Performed By: #### C BC ####[id number] [place] [address] MCHC (RBC) [Mass/Vol] 33.3 g/dL Normal 32.0 - 36.0 [facility] Comment on above: Performed By: #### C BC ####[id number] [place] [address] MCV (RBC) [Entitic vol] 92 fL Normal 80 - 100 [facility] Comment on above: Performed By: #### C BC ####[id number] [place] [address] NUCLEATED RBC 0.0 /100 WBC Normal 0.0-0.0 [facility] Comment on above: Performed By: #### C BC ####[id number] [place] [address] Platelets (Bld) [#/Vol] 263 10*3/uL Normal 150 - 450 [facility] Comment on above: Performed By: #### C BC ####[id number] [place] [address] RBC 4.40 x10E12/L Low 4.50 - 5.90 [facility] Comment on above: Performed By: #### C BC ####[id number] [place] [address] WBC (Bld) [#/Vol] 9.2 10*3/uL Normal 4.4 - 11.3 [facility] Comment on above: Performed By: #### C BC ####[id number] [place] [address] Daily Progress Note-ENTon Daily Progress Note-ENT Normal [facility] Daily Progress Note-Infectio us Diseaseon 11-16-2022 Daily Progress Note-Infectious Disease Normal [facility] GLUCOSE-POCTon 11-16-2022 Glucose [Mass/Vol] 143 mg/dL High 74 - 99 [facility] Comment on above: Performed By: #### G SUSAN ####[id number] [place] [address] Glucose [Mass/Vol] 159 mg/dL High 74 - 99 [facility] Comment on above: Performed By: #### G SUSAN ####[id number] [place] [address] Laboratory - Chemistry and C hemistry - challengeon 11-16-2022 Glucose [Mass/Vol] 102 mg/dL above high threshold 74 - 99 MG-Otolaryn [facility]ology-[place] [address] Work Phone: Glucose [Mass/Vol] 143 mg/dL above high threshold 74 - 99 MG-Otolaryn [facility]ology-[place] 163440 Work Phone: Glucose [Mass/Vol] 159 mg/dL above high threshold 74 - 99 MG-Otolaryn [facility]-[place] [address] Work Phone: Laboratory - Coagulationon 0 11-16-2022 INR Coag (PPP) [Relative time] 1.1 {INR} 0.9 - 1.1 MG-Otolaryn [facility]ology-[place] [address] Work Phone: PT Coag (PPP) [Time] 12.4 s 9.8 - 13.4 MG-O tolaryn [facility]ology-[place] 163440 Work Phone: Laboratory - Hematology and Cell countson 11-16-2022 Erythrocyte distribution width (RBC) [Ratio] 14.3 % See Below MG-Otolaryn [facility]ology-[place] [address] Work Phone: Comment on above: Reference Range: 11. 5 - 14.5 Hematocrit (Bld) [Volume fraction] 40.6 % below low threshold See Below [facility] 410 Work Phone: Comment on above: Reference Range: 41. 0 - 52.0 Hemoglobin (Bld) [Mass/Vol] 13.5 g/dL See Below [facility] 410 Work Phone: Comment on above: Reference Range: 13. 5 - 17.5 MCHC (RBC) [Mass/Vol] 33.3 g/dL See Below MG [facility] 4100 Work Phone: Comment on above: Reference Range: 32. 0 - 36.0 MCV (RBC) [Entitic vol] 92 fL 80 - 100 [facility]ogy[facility] 410 Work Phone: Platelets (Bld) [#/Vol] 263 10*3/uL 150 - 450 -[facility] 4100 Work Phone: RBC (Bld) [#/Vol] 4.40 {x10E12/L} below low threshold See Below [facility] 4100 Work Phone: Comment on above: Reference Range: 4.5 0 - 5.90 WBC (Bld) [#/Vol] 9.2 10*3/uL 4.4 - 11.3 MG-[place] laryn [facility]ology[facility] 4100 Work Phone: MAGNESIUMon 11-16-2022 Magnesium [Mass/Vol] 2.38 mg/dL Normal 1.60 - 2.40 [facility] Comment on above: Performed By: #### M G ####[id number] [place] [address] Magnesium, Serumon Magnesium [Mass/Vol] 2.38 mg/dL See Below MG-[facility] 4[address] Work Phone: Comment on above: Reference Range: 1.6 0 - 2.40 No Panel Informationon 11-16 0.0 {/100_WBC} 0.0-0.0 MG-Otolary n [facility] 4100 Work Phone: PT Evaluation v2-physical th erapyon 11-16-2022 PT Evaluation v2-physical therapy Normal [facility] PT/INRon 11-16-2022 PT Coag (PPP) [Time] 12.4 s Normal 9.8 - 13.4 [facility] Comment on above: Performed By: #### P TINR ####[id number] [place] [address] PT, INR 1.1 Normal 0.9 - 1.1 [facility] Comment on above: Performed By: #### P TINR ####[id number] [place] [address] RENAL FUNCTION PANELon 11-16 Albumin [Mass/Vol] 3.6 g/dL Normal 3.4 - 5.0 [facility] Comment on above: Performed By: #### R ENAL ####[id number] [place] [address] Anion gap [Moles/Vol] 14 mmol/L Normal 10 - 20 [facility] Comment on above: Performed By: #### R ENAL ####[id number] [place] [address] Calcium [Mass/Vol] 8.8 mg/dL Normal 8.6 - 10.6 [facility] Comment on above: Performed By: #### R ENAL ####[id number] [place] [address] Chloride [Moles/Vol] 104 mmol/L Normal 98 - 107 [facility] Comment on above: Performed By: #### R ENAL ####[id number] [place] [address] Creatinine [Mass/Vol] 1.20 mg/dL Normal 0.50 - 1.30 [facility] Comment on above: Performed By: #### R ENAL ####[id number] [place] [address] GFR/1.73 sq M.predicted among non-blacks MDRD (S/P/Bld) [Vol rate/Area] 65 mL/min/{1.73_m2} Normal >90 [facility] Comment on above: Result Comment: CALC ULATIONS OF ESTIMATED GFR ARE PERFORMED USING THE 2020 CKD-EPI STUDY REFIT EQUATION WITHOUT THE RACE VARIABLE FOR THE IDMS-TRACEABLE CREATININE METHODS.https://jasn.asnjournals.org/content/early/A SN.1714944989 Performed By: #### R ENAL ####[id number] [place] [address] Glucose [Mass/Vol] 122 mg/dL High 74 - 99 [facility] Comment on above: Performed By: #### R ENAL ####[id number] [place] [address] HCO3 (Bld) [Moles/Vol] 24 mmol/L Normal 21 - 32 [facility] Comment on above: Performed By: #### R ENAL ####[id number] [place] [address] Phosphate [Mass/Vol] 2.7 mg/dL Normal 2.5 - 4.9 [facility] Comment on above: Result Comment: The performance characteristics of phosphorus testing in heparinized plasma have been validated by the individual laboratory site where testing is performed. Testing on heparinized plasma is not approved by the FDA; however, such approval is not necessary. Performed By: #### R ENAL ####[id number] [place] [address] Potassium [Moles/Vol] 4.6 mmol/L Normal 3.5 - 5.3 [facility] Comment on above: Performed By: #### R ENAL ####[id number] [place] [address] Sodium [Moles/Vol] 137 mmol/L Normal 136 - 145 [facility] Comment on above: Performed By: #### R ENAL ####[id number] [place] [address] Urea nitrogen [Mass/Vol] 21 mg/dL Normal 6 - 23 [facility] Comment on above: Performed By: #### R ENAL ####[id number] [place] [address] Renal Function Panelon 11-16 Albumin BCP dye [Mass/Vol] 3.6 g/dL 3.4 - 5.0 MG-Otolaryn gology-[facility] 4100 Work Phone: Anion gap [Moles/Vol] 14 mmol/L 10 - 20 MG- Otolaryn gology-[facility] 4100 Work Phone: [phone] Calcium [Mass/Vol] 8.8 mg/dL 8.6 - 10.6 MG-[place] laryn gology-[facility] 4100 Work Phone: [phone] Chloride [Moles/Vol] 104 mmol/L 98 - 107 MG-O tolaryn gology-[facility] 4100 Work Phone: [phone] CO2 [Moles/Vol] 24 mmol/L 21 - 32 MG-Otolar yn gology-[facility] 4100 Work Phone: [phone] Creatinine [Mass/Vol] 1.20 mg/dL See Below MG- Otolaryn gology-[facility] 4100 Work Phone: [phone] Comment on above: Reference Range: 0.5 0 - 1.30 Glucose [Mass/Vol] 122 mg/dL above high threshold 74 - 99 MG-Otolaryn gology-[facility] 4100 Work Phone: Phosphate [Mass/Vol] 2.7 mg/dL 2.5 - 4.9 MG-O tolaryn gology-[facility] 4100 Work Phone: Comment on above: The performance violet acteristics of phosphorus testing in heparinized plasma have been validated by the individual laboratory site where testing is performed. Testing on heparinized plasma is not approved by the FDA; however, such approval is not necessary. Potassium [Moles/Vol] 4.6 mmol/L 3.5 - 5.3 MG- Otolaryn [facility] 4100 Work Phone: [phone] Sodium [Moles/Vol] 137 mmol/L 136 - 145 MG-[place] laryn [facility] 4100 Work Phone: [phone] Urea nitrogen [Mass/Vol] 21 mg/dL 6 - 23 MG-[facility] 4100 Work Phone: [phone] Renal Function Panel 65 {mL/min/1.73m2} >90 [facility] 4100 Work Phone: Comment on above: CALCULATIONS OF REYNALDO MATED GFR ARE PERFORMED USING THE 2020 CKD-EPI STUDY REFIT EQUATION WITHOUT THE RACE VARIABLE FOR THE IDMS-TRACEABLE CREATININE METHODS.https://jasn.asnjournals.org/content//A SN.6328486207 CBCon 11-15-2022 Erythrocyte distribution width (RBC) [Ratio] 14.6 % High 11.5 - 14.5 [facility] Comment on above: Performed By: #### C BC ####[id number] [place] [address] Hematocrit (Bld) [Volume fraction] 38.3 % Low 41.0 - 52.0 [facility] Comment on above: Performed By: #### C BC ####[id number] [place] [address] Hemoglobin (Bld) [Mass/Vol] 12.7 g/dL Low 13.5 - 17.5 [facility] Comment on above: Performed By: #### C BC ####[id number] [place] [address] MCHC (RBC) [Mass/Vol] 33.2 g/dL Normal 32.0 - 36.0 [facility] Comment on above: Performed By: #### C BC ####[id number] [place] [address] MCV (RBC) [Entitic vol] 94 fL Normal 80 - 100 [facility] Comment on above: Performed By: #### C BC ####[id number] [place] [address] NUCLEATED RBC 0.0 /100 WBC Normal 0.0-0.0 [facility] Comment on above: Performed By: #### C BC ####[id number] [place] [address] Platelets (Bld) [#/Vol] 244 10*3/uL Normal 150 - 450 [facility] Comment on above: Performed By: #### C BC ####[id number] [place] [address] RBC 4.06 x10E12/L Low 4.50 - 5.90 [facility] Comment on above: Performed By: #### C BC ####[id number] [place] [address] WBC (Bld) [#/Vol] 8.2 10*3/uL Normal 4.4 - 11.3 [facility] Comment on above: Performed By: #### C BC ####[id number] [place] [address] Daily Progress Note-ENTon Daily Progress Note-ENT Normal [facility] GLUCOSE-POCTon 11-15-2022 Glucose [Mass/Vol] 257 mg/dL High 74 - 99 [facility] Comment on above: Performed By: #### G SUSAN ####[id number] [place] [address] Glucose [Mass/Vol] 121 mg/dL High 74 - 99 [facility] Comment on above: Performed By: #### G SUSAN ####[id number] [place] [address] Glucose [Mass/Vol] 96 mg/dL Normal 74 - 99 [facility] Comment on above: Performed By: #### G SUSAN ####[id number] [place] [address] Laboratory - Chemistry and C hemistry - challengeon 11-15-2022 Glucose [Mass/Vol] 257 mg/dL above high threshold 74 - 99 MG-Otolaryn gology-[place] 163440 Work Phone: [phone] Glucose [Mass/Vol] 121 mg/dL above high threshold 74 - 99 MG-Otolaryn gology-[facility] 4100 Work Phone: [phone] Glucose [Mass/Vol] 96 mg/dL 74 - 99 MG-[place] laryn gology-[place] 163440 Work Phone: [phone] Laboratory - Hematology and Cell countson 11-15-2022 Erythrocyte distribution width (RBC) [Ratio] 14.6 % above high threshold See Below MG-Otolaryn gology-[place] [address] Work Phone: [phone] Comment on above: Reference Range: 11. 5 - 14.5 Hematocrit (Bld) [Volume fraction] 38.3 % below low threshold See Below [place] [address] Work Phone: [phone] Comment on above: Reference Range: 41. 0 - 52.0 Hemoglobin (Bld) [Mass/Vol] 12.7 g/dL below low threshold See Below MG-Otolaryn gology-[place] [address] Work Phone: Comment on above: Reference Range: 13. 5 - 17.5 MCHC (RBC) [Mass/Vol] 33.2 g/dL See Below MG- Otolaryn gology-[place] [address] Work Phone: Comment on above: Reference Range: 32. 0 - 36.0 MCV (RBC) [Entitic vol] 94 fL 80 - 100 MG-Otolaryn gology-[place] [address] Work Phone: [phone] Platelets (Bld) [#/Vol] 244 10*3/uL 150 - 450 [facility] 4[facility] Work Phone: RBC (Bld) [#/Vol] 4.06 {x10E12/L} below low threshold See Below [facility] 4[facility] Work Phone: Comment on above: Reference Range: 4.5 0 - 5.90 WBC (Bld) [#/Vol] 8.2 10*3/uL 4.4 - 11.3 [facility] [facility] 4[facility] Work Phone: MAGNESIUMon 11-15-2022 Magnesium [Mass/Vol] 2.31 mg/dL Normal 1.60 - 2.40 [facility] Comment on above: Performed By: #### M G ####[id number] [place] [address] Magnesium, Serumon 3 Magnesium [Mass/Vol] 2.31 mg/dL See Below MG-O ariannan [facility] 4100 Work Phone: Comment on above: Reference Range: 1.6 0 - 2.40 No Panel Informationon 11-15 0.0 {/100_WBC} 0.0-0.0 [facility] 4[facility] Work Phone: RENAL FUNCTION PANELon 11-15 Albumin [Mass/Vol] 3.2 g/dL Low 3.4 - 5.0 [facility] Comment on above: Performed By: #### R ENAL ####[id number] [place] [address] Anion gap [Moles/Vol] 13 mmol/L Normal 10 - 20 [facility] Comment on above: Performed By: #### R ENAL ####[id number] [place] [address] Calcium [Mass/Vol] 8.3 mg/dL Low 8.6 - 10.6 [facility] Comment on above: Performed By: #### R ENAL ####[id number] [place] [address] Chloride [Moles/Vol] 106 mmol/L Normal 98 - 107 [facility] Comment on above: Performed By: #### R ENAL ####[id number] [place] [address] Creatinine [Mass/Vol] 1.26 mg/dL Normal 0.50 - 1.30 [facility] Comment on above: Performed By: #### R ENAL ####[id number] [place] [address] GFR/1.73 sq M.predicted among non-blacks MDRD (S/P/Bld) [Vol rate/Area] 61 mL/min/{1.73_m2} Normal >90 [facility] Comment on above: Result Comment: CALC ULATIONS OF ESTIMATED GFR ARE PERFORMED USING THE 2020 CKD-EPI STUDY REFIT EQUATION WITHOUT THE RACE VARIABLE FOR THE IDMS-TRACEABLE CREATININE METHODS.https://jasn.asnjournals.org/content/early//A SN.9886299813 Performed By: #### R ENAL ####[id number] [place] [address] Glucose [Mass/Vol] 128 mg/dL High 74 - 99 [facility] Comment on above: Performed By: #### R ENAL ####[id number] [place] [address] HCO3 (Bld) [Moles/Vol] 24 mmol/L Normal 21 - 32 [facility] Comment on above: Performed By: #### R ENAL ####[id number] [place] [address] Phosphate [Mass/Vol] 2.7 mg/dL Normal 2.5 - 4.9 [facility] Comment on above: Result Comment: The performance characteristics of phosphorus testing in heparinized plasma have been validated by the individual laboratory site where testing is performed. Testing on heparinized plasma is not approved by the FDA; however, such approval is not necessary. Performed By: #### R ENAL ####[id number] [place] [address] Potassium [Moles/Vol] 4.1 mmol/L Normal 3.5 - 5.3 [facility] Comment on above: Performed By: #### R ENAL ####[id number] [place] [address] Sodium [Moles/Vol] 139 mmol/L Normal 136 - 145 [facility] Comment on above: Performed By: #### R ENAL ####[id number] [place] [address] Urea nitrogen [Mass/Vol] 24 mg/dL High 6 - 23 [facility] Comment on above: Performed By: #### R ENAL ####[id number] [place] [address] Renal Function Panelon 11-15 Albumin BCP dye [Mass/Vol] 3.2 g/dL below low threshold 3.4 - 5.0 MG-Otolaryn gology-[place] 163440 Work Phone: [phone] Anion gap [Moles/Vol] 13 mmol/L 10 - 20 MG- Otolaryn gology-[facility] 4100 Work Phone: [phone] Calcium [Mass/Vol] 8.3 mg/dL below low threshold 8.6 - 10.6 MG-Otolaryn gology-[facility] 4100 Work Phone: [phone] Chloride [Moles/Vol] 106 mmol/L 98 - 107 MG-O tolaryn gology-[facility] 4100 Work Phone: [phone] CO2 [Moles/Vol] 24 mmol/L 21 - 32 MG-Otolar yn gology-[facility] 4100 Work Phone: [phone] Creatinine [Mass/Vol] 1.26 mg/dL See Below MG- Otolaryn gology-[facility] 4100 Work Phone: [phone] Comment on above: Reference Range: 0.5 0 - 1.30 Glucose [Mass/Vol] 128 mg/dL above high threshold 74 - 99 MG-Otolaryn gology-[facility] 4100 Work Phone: Phosphate [Mass/Vol] 2.7 mg/dL 2.5 - 4.9 [facility] 4100 Work Phone: Comment on above: The performance violet acteristics of phosphorus testing in heparinized plasma have been validated by the individual laboratory site where testing is performed. Testing on heparinized plasma is not approved by the FDA; however, such approval is not necessary. Potassium [Moles/Vol] 4.1 mmol/L 3.5 - 5.3 [facility] 4100 Work Phone: Sodium [Moles/Vol] 139 mmol/L 136 - 145 MG-[place] laryn [facility] 4100 Work Phone: Urea nitrogen [Mass/Vol] 24 mg/dL above high threshold 6 - 23 [facility] 4100 Work Phone: Renal Function Panel 61 {mL/min/1.73m2} >90 [facility]aryn [facility] 4100 Work Phone: Comment on above: CALCULATIONS OF REYNALDO MATED GFR ARE PERFORMED USING THE 2020 CKD-EPI STUDY REFIT EQUATION WITHOUT THE RACE VARIABLE FOR THE IDMS-TRACEABLE CREATININE METHODS.https://jasn.asnjournals.org/content/early//A SN.7851428450 CBCon 11-14-2022 HCT Canceled Normal [facility] Comment on above: Order Comment: TEST CBC WAS CANCELLED, 11/14/2022 09:56 NO SPECIMEN RECEIVED IN LAB. Performed By: #### C BC ####[id number] [place] [address] HGB Canceled Normal [facility] Comment on above: Order Comment: TEST CBC WAS CANCELLED, 11/14/2022 09:56 NO SPECIMEN RECEIVED IN LAB. Performed By: #### C BC ####[id number] [place] [address] MCHC Canceled Normal [facility] Comment on above: Order Comment: TEST CBC WAS CANCELLED, 11/14/2022 09:56 NO SPECIMEN RECEIVED IN LAB. Performed By: #### C BC ####[id number] [place] [address] MCV Canceled Normal [facility] Comment on above: Order Comment: TEST CBC WAS CANCELLED, 11/14/2022 09:56 NO SPECIMEN RECEIVED IN LAB. Performed By: #### C BC ####[id number] [place] [address] NUCLEATED RBC Canceled Normal [facility] Comment on above: Order Comment: TEST CBC WAS CANCELLED, 11/14/2022 09:56 NO SPECIMEN RECEIVED IN LAB. Performed By: #### C BC ####[id number] [place] [address] PLT Canceled Normal [facility] Comment on above: Order Comment: TEST CBC WAS CANCELLED, 11/14/2022 09:56 NO SPECIMEN RECEIVED IN LAB. Performed By: #### C BC ####[id number] [place] [address] RBC Canceled Normal [facility] Comment on above: Order Comment: TEST CBC WAS CANCELLED, 11/14/2022 09:56 NO SPECIMEN RECEIVED IN LAB. Performed By: #### C BC ####[id number] [place] [address] RDW-CV Canceled Normal [facility] Comment on above: Order Comment: TEST CBC WAS CANCELLED, 11/14/2022 09:56 NO SPECIMEN RECEIVED IN LAB. Performed By: #### C BC ####[id number] [place] [address] WBC Canceled Normal [facility] Comment on above: Order Comment: TEST CBC WAS CANCELLED, 11/14/2022 09:56 NO SPECIMEN RECEIVED IN LAB. Performed By: #### C BC ####[id number] [place] [address] Erythrocyte distribution width (RBC) [Ratio] 14.6 % High 11.5 - 14.5 [facility] Comment on above: Performed By: #### C BC ####[id number] [place] [address] Hematocrit (Bld) [Volume fraction] 43.0 % Normal 41.0 - 52.0 [facility] Comment on above: Performed By: #### C BC ####[id number] [place] [address] Hemoglobin (Bld) [Mass/Vol] 13.7 g/dL Normal 13.5 - 17.5 [facility] Comment on above: Performed By: #### C BC ####[id number] [place] [address] MCHC (RBC) [Mass/Vol] 31.9 g/dL Low 32.0 - 36.0 [facility] Comment on above: Performed By: #### C BC ####[id number] [place] [address] MCV (RBC) [Entitic vol] 97 fL Normal 80 - 100 [facility] Comment on above: Performed By: #### C BC ####[id number] [place] [address] NUCLEATED RBC 0.0 /100 WBC Normal 0.0-0.0 [facility] Comment on above: Performed By: #### C BC ####[id number] [place] [address] Platelets (Bld) [#/Vol] 300 10*3/uL Normal 150 - 450 [facility] Comment on above: Performed By: #### C BC ####[id number] [place] [address] RBC 4.43 x10E12/L Low 4.50 - 5.90 [facility] Comment on above: Performed By: #### C BC ####[id number] [place] [address] WBC (Bld) [#/Vol] 12.6 10*3/uL High 4.4 - 11.3 [facility] Comment on above: Performed By: #### C BC ####[id number] [place] [address] COAGULATION SCREENon 023 aPTT Coag (Bld) [Time] 29 s Normal 26 - 39 [facility] Comment on above: Result Comment: THE APTT IS NO LONGER USED FOR MONITORING UNFRACTIONATED HEPARIN THERAPY. FOR MONITORING HEPARIN THERAPY, USE THE HEPARIN ASSAY. Performed By: #### C OAGS ####[id number] [place] [address] PT Coag (PPP) [Time] 12.8 s Normal 9.8 - 13.4 [facility] Comment on above: Performed By: #### C OAGS ####[id number] [place] [address] PT, INR 1.1 Normal 0.9 - 1.1 [facility] Comment on above: Performed By: #### C OAGS ####[id number] [place] [address] Daily Progress Note-ENTon Daily Progress Note-ENT Normal [facility] Daily Progress Note-Infectio us Diseaseon 11-14-2022 Daily Progress Note-Infectious Disease Normal [facility] Daily Progress Note-Vascular Medicineon 11-14-2022 Daily Progress Note-Vascular Medicine Normal [facility] GLUCOSE-POCTon 11-14-2022 Glucose [Mass/Vol] 198 mg/dL High 74 - 99 [facility] Comment on above: Performed By: #### G SUSAN ####[id number] [place] [address] Glucose [Mass/Vol] 134 mg/dL High 74 - 99 [facility] Comment on above: Performed By: #### G SUSAN ####[id number] [place] [address] Glucose [Mass/Vol] 140 mg/dL High 74 - 99 [facility] Comment on above: Performed By: #### G SUSAN ####[id number] [place] [address] Glucose [Mass/Vol] 127 mg/dL High 74 - 99 [facility] Comment on above: Performed By: #### G SUSAN ####[id number] [place] [address] INSERTION OF GASTROSTOMY TUB E PERCUTANEOUS UNDER FLUOROSCOPICon 11-14-2022 INSERTION OF GASTROSTOMY TUBE PERCUTANEOUS UNDER FLUOROSCOPIC Normal [facility] Insertion of Gastrostomy Tub e Percutaneous Under Fluoroscopicon 11-14-2022 RF Guidance for placement of tube in Stomach Normal [facility]-Otolaryn [facility]ology-[place] [address] Work Phone: Laboratory - Chemistry and C hemistry - challengeon 11-14-2022 Glucose [Mass/Vol] 198 mg/dL above high threshold 74 - 99 MG-[facility]tolaryn [facility]ology-[place] [address] Work Phone: Glucose [Mass/Vol] 134 mg/dL above high threshold 74 - 99 MG-Otolaryn gology-[place] 959950 Work Phone: Glucose [Mass/Vol] 140 mg/dL above high threshold 74 - 99 [facility]tolaryn [facility]ology-[facility] 4100 Work Phone: Glucose [Mass/Vol] 127 mg/dL above high threshold 74 - 99 MG-Otolaryn gology-[facility] 4100 Work Phone: Laboratory - Coagulationon 0 11-14-2022 aPTT Coag (PPP) [Time] 29 s 26 - 39 MG -[facility]tolaryn [facility]ology-[facility] 4100 Work Phone: Comment on above: THE APTT IS NO LONGE R USED FOR MONITORING UNFRACTIONATED HEPARIN THERAPY. FOR MONITORING HEPARIN THERAPY, USE THE HEPARIN ASSAY. INR Coag (PPP) [Relative time] 1.1 {INR} 0.9 - 1.1 MG-Otolaryn gology-[place] [address] Work Phone: PT Coag (PPP) [Time] 12.8 s 9.8 - 13.4 Gilberto william [place] [address] Work Phone: Laboratory - Hematology and Cell countson 11-14-2022 Erythrocyte distribution width (RBC) [Ratio] 14.6 % above high threshold See Below [facility] [place] [address] Work Phone: Comment on above: Reference Range: 11. 5 - 14.5 Hematocrit (Bld) [Volume fraction] 43.0 % See Below [facility] [place] [address] Work Phone: Comment on above: Reference Range: 41. 0 - 52.0 Hemoglobin (Bld) [Mass/Vol] 13.7 g/dL See Below [facility] [place] [address] Work Phone: Comment on above: Reference Range: 13. 5 - 17.5 MCHC (RBC) [Mass/Vol] 31.9 g/dL below low threshold See Below [facility] [place] [address] Work Phone: Comment on above: Reference Range: 32. 0 - 36.0 MCV (RBC) [Entitic vol] 97 fL 80 - 100 [place] [address] Work Phone: [phone] Platelets (Bld) [#/Vol] 300 10*3/uL 150 - 450 [facility] [place] [address] Work Phone: [phone] RBC (Bld) [#/Vol] 4.43 {x10E12/L} below low threshold See Below [facility] [place] [address] Work Phone: Comment on above: Reference Range: 4.5 0 - 5.90 WBC (Bld) [#/Vol] 12.6 10*3/uL above high threshold 4.4 - 11.3 [facility] [place] [address] Work Phone: MAGNESIUMon 11-14-2022 Magnesium [Mass/Vol] 2.56 mg/dL High 1.60 - 2.40 [facility] Comment on above: Performed By: #### M G ####[id number] [place] [address] Magnesium, Serumon 3 Magnesium [Mass/Vol] 2.56 mg/dL above high threshold See Below [facility] 4100 Work Phone: Comment on above: Reference Range: 1.6 0 - 2.40 No Panel Informationon 11-14 Please click on the link to view the study images [facility] Work Phone: 0.0 {/100_WBC} 0.0-0.0 MG-Otolary n [facility] 4100 Work Phone: Nutrition Therapy-Noteon Nutrition Therapy-Note Normal [facility] OT Evaluation v2-attemptedon 11-14-2022 OT Evaluation v2-attempted Normal [facility] OT Evaluation v2-individual therapyon 11-14-2022 OT Evaluation v2-individual therapy Normal [facility] PT Evaluation v2-physical th erapyon 11-14-2022 PT Evaluation v2-physical therapy Normal [facility] RENAL FUNCTION PANELon 11-14 Albumin [Mass/Vol] 3.8 g/dL Normal 3.4 - 5.0 [facility] Comment on above: Performed By: #### R ENAL ####[id number] [place] [address] Anion gap [Moles/Vol] 16 mmol/L Normal 10 - 20 [facility] Comment on above: Performed By: #### R ENAL ####[id number] [place] [address] Calcium [Mass/Vol] 9.0 mg/dL Normal 8.6 - 10.6 [facility] Comment on above: Performed By: #### R ENAL ####[id number] [place] [address] Chloride [Moles/Vol] 105 mmol/L Normal 98 - 107 [facility] Comment on above: Performed By: #### R ENAL ####[id number] [place] [address] Creatinine [Mass/Vol] 1.65 mg/dL High 0.50 - 1.30 [facility] Comment on above: Performed By: #### R ENAL ####[id number] [place] [address] GFR/1.73 sq M.predicted among non-blacks MDRD (S/P/Bld) [Vol rate/Area] 44 mL/min/{1.73_m2} Abnormal >90 [facility] Comment on above: Result Comment: CALC ULATIONS OF ESTIMATED GFR ARE PERFORMED USING THE 2020 CKD-EPI STUDY REFIT EQUATION WITHOUT THE RACE VARIABLE FOR THE IDMS-TRACEABLE CREATININE METHODS.https://jasn.asnjournals.org/content/early//A SN.9225213036 Performed By: #### R ENAL ####[id number] [place] [address] Glucose [Mass/Vol] 110 mg/dL High 74 - 99 [facility] Comment on above: Performed By: #### R ENAL ####[id number] [place] [address] HCO3 (Bld) [Moles/Vol] 24 mmol/L Normal 21 - 32 [facility] Comment on above: Performed By: #### R ENAL ####[id number] [place] [address] Phosphate [Mass/Vol] 3.5 mg/dL Normal 2.5 - 4.9 [facility] Comment on above: Result Comment: The performance characteristics of phosphorus testing in heparinized plasma have been validated by the individual laboratory site where testing is performed. Testing on heparinized plasma is not approved by the FDA; however, such approval is not necessary. Performed By: #### R ENAL ####[id number] [place] [address] Potassium [Moles/Vol] 4.2 mmol/L Normal 3.5 - 5.3 [facility] Comment on above: Performed By: #### R ENAL ####[id number] [place] [address] Sodium [Moles/Vol] 141 mmol/L Normal 136 - 145 [facility] Comment on above: Performed By: #### R ENAL ####[id number] [place] [address] Urea nitrogen [Mass/Vol] 30 mg/dL High 6 - 23 [facility] Comment on above: Performed By: #### R ENAL ####[id number] [place] [address] Renal Function Panelon 11-14 Albumin BCP dye [Mass/Vol] 3.8 g/dL 3.4 - 5.0 MG-Otolaryn gology-[facility] 4100 Work Phone: [phone] Anion gap [Moles/Vol] 16 mmol/L 10 - 20 MG- Otolaryn gology-[facility] 4100 Work Phone: [phone] Calcium [Mass/Vol] 9.0 mg/dL 8.6 - 10.6 [facility] [facility] Work Phone: [phone] Chloride [Moles/Vol] 105 mmol/L 98 - 107 MG-O tolaryn gology-[facility] 4100 Work Phone: [phone] CO2 [Moles/Vol] 24 mmol/L 21 - 32 MG-Otolar yn gology-[facility] 4100 Work Phone: [phone] Creatinine [Mass/Vol] 1.65 mg/dL above high threshold See Below MG-Otolaryn gology-[facility] 4100 Work Phone: [phone] Comment on above: Reference Range: 0.5 0 - 1.30 Glucose [Mass/Vol] 110 mg/dL above high threshold 74 - 99 MG-Otolaryn gology-[facility] 4100 Work Phone: Phosphate [Mass/Vol] 3.5 mg/dL 2.5 - 4.9 [facility] 4100 Work Phone: Comment on above: The performance violet acteristics of phosphorus testing in heparinized plasma have been validated by the individual laboratory site where testing is performed. Testing on heparinized plasma is not approved by the FDA; however, such approval is not necessary. Potassium [Moles/Vol] 4.2 mmol/L 3.5 - 5.3 [facility]- [facility] 4100 Work Phone: Sodium [Moles/Vol] 141 mmol/L 136 - 145 MG-[place] laryn [facility] 4100 Work Phone: Urea nitrogen [Mass/Vol] 30 mg/dL above high threshold 6 - 23 [facility] 4100 Work Phone: Renal Function Panel 44 {mL/min/1.73m2} Abnormal >90 [facility] 4[facility] Work Phone: Comment on above: CALCULATIONS OF REYNALDO MATED GFR ARE PERFORMED USING THE 2020 CKD-EPI STUDY REFIT EQUATION WITHOUT THE RACE VARIABLE FOR THE IDMS-TRACEABLE CREATININE METHODS.https://jasn.asnjournals.org/content/early//A SN.6091524328 ABO/RH GROUP TESTon 11-14-19 23 ABO TYPE A Normal [facility] Comment on above: Performed By: #### V ERAB ####[id number] [place] [address] RH TYPE Positive Normal [facility] Comment on above: Performed By: #### V ERAB ####[id number] [place] [address] AFB CULTURE/SM, MISCon 11-13 AFB CULTURE/SM, MISC Normal [facility] Comment on above: Performed By: #### A FB ####[id number] [id number] AFB CULTURE/SM, MISC Normal [facility] Comment on above: Performed By: #### A FB ####[id number] [place] [address] Admission Risk Screen - Adul ton 11-13-2022 Admission Risk Screen - Adult Normal [facility] CORONAVIRUS 2019, SCREEN ASY MPTOMATICon 11-13-2022 SARS-CoV-2 (COVID-19) RNA JF+probe Ql (Unsp spec) Not detected Normal Not Detected [facility] Comment on above: Result Comment: .Thi s assay is designed to detect the ORF1a/b and E genes of SARS-CoV-2 vianucleic acid amplification. A Not Detected result does not onbeofxs5467-lVyD infection since the adequacy of sample collection and/or low viralburden may result in presence of viral nucleic acids below the clinicalsensitivity of this test method.Fact sheet for providers: https://www.fda.gov/media/341980/downloadFact sheet for patients: https://www.fda.gov/media/449735/downloadThis test has received FDA Emergency Use Authorization (EUA) and has beenverified for use by [facility] ([facility]).This test is only authorized for the duration of time that circumstancesexist to justify the authorization of the emergency use of in vitrodiagnostic tests for the detection of SARS-CoV-2 virus and/or diagnosis ofCOVID-19 infection under section 564(b)(1) of the Act, 21 U.S.C.360bbb-3(b)(1), unless the authorization is terminated or revoked sooner.[facility] is certified under CLIA-88 asqualified to perform high complexity testing. Testing is performed in [facility] laboratories located at [address] [place] [address]. Performed By: #### C OVSC ####[id number] [place] [address] CT Sinus without Contraston 11-13-2022 CT Sinuses WO contrast Normal MG -[facility]tolaryn gology-[facility] Work Phone: [phone] Clinical Note - Pharmacy v2- Medication Educationon 11-13-2022 Clinical Note - Pharmacy v2-Medication Education Normal [facility] Consult-Infectious Diseaseon 11-13-2022 Consult-Infectious Disease Normal [facility] Consult-Vascular Medicineon 11-13-2022 Consult-Vascular Medicine Normal [facility] Covid 19 Resultson 3 SARS-CoV-2 (COVID-19) RNA JF+probe Ql (Unsp spec) Normal [facility] Cult, AFB, Misc.+ smearon Mycobacterium sp identified Org specific cx Nom (Unsp spec) [facility] 4100 Work Phone: [phone] Mycobacterium sp identified Org specific cx Nom (Unsp spec) MG-Otolaryn gology-[facility] 4100 Work Phone: [phone] Cult, Fungus +smearon 2022 Fungus identified Cx Nom (Unsp spec) Abnormal [facility] 4100 Work Phone: [phone] Fungus identified Cx Nom (Unsp spec) Abnormal [facility] 4100 Work Phone: [phone] Cult, Misc + smearon 11-13- 023 Bacteria identified Cx Nom (Unsp spec) [facility] 4[facility] Work Phone: [phone] Bacteria identified Cx Nom (Unsp spec) [facility] 4[facility] Work Phone: [phone] Discharge Planning Tzzj2yy 0 11-13-2022 Discharge Planning Note2 Normal [facility] FUNGAL CULTURE/SM, MISCon FUNGAL CULTURE/SM, MISC Normal [facility] Comment on above: Performed By: #### F UNCS ####[id number] [place] [address] FUNGAL CULTURE/SM, MISC Normal [facility] Comment on above: Performed By: #### F UNCS ####[id number] [place] [address] GLUCOSE-POCTon 11-13-2022 Glucose [Mass/Vol] 181 mg/dL High - 99 [facility] Comment on above: Performed By: #### G SUSAN ####[id number] [place] [address] Glucose [Mass/Vol] 160 mg/dL High 74 - 99 [facility] Comment on above: Performed By: #### G SUSAN ####[id number] [place] [address] Glucose [Mass/Vol] 209 mg/dL High - 99 [facility] Comment on above: Performed By: #### G SUSAN ####[id number] [place] [address] Glucose [Mass/Vol] 201 mg/dL High 74 - 99 [facility] Comment on above: Performed By: #### G SUSAN ####[id number] [place] [address] Glucose [Mass/Vol] 166 mg/dL High 74 - 99 [facility] Comment on above: Performed By: #### G SUSAN ####[id number] [place] [address] HEMOGLOBIN A1Con 11-13-2022 Glucose [Mass/Vol] 189 mg/dL Normal [facility] Comment on above: Performed By: #### H BA1E ####[id number] [place] [address] HbA1c (Bld) [Mass fraction] 8.2 % Abnormal [facility] Comment on above: Result Comment: Diag nosis of Diabetes-Adults Non-Diabetic: < or = 5.6% Increased risk for developing diabetes: 5.7-6.4% Diagnostic of diabetes: > or = 6.5%. Monitoring of Diabetes Age (y) Therapeutic Goal (%) Adults: >18 <7.0 Pediatrics: 13-18 <7.5 7-12 <8.0 0- 6 7.5-8.5 [place] [employer]. Diabetes Care 33(S1), Aug 2009. Performed By: #### H BA1E ####[id number] [place] [address] Laboratory - Blood bankon ABO group Nom (Bld) A MG-Ot olaryn gology-[facility] Work Phone: [phone] Rh immune globulin screen (Bld) [Interp] Positive MG-Otolary n gology-[facility] Work Phone: [phone] Laboratory - Chemistry and C hemistry - challengeon 11-13-2022 Glucose [Mass/Vol] 181 mg/dL above high threshold 74 - 99 MG-Otolaryn gology-[facility] 4100 Work Phone: Glucose [Mass/Vol] 160 mg/dL above high threshold 74 - 99 MG-Otolaryn gology-[facility] 4100 Work Phone: [phone] Glucose [Mass/Vol] 209 mg/dL above high threshold 74 - 99 MG-[facility]aryn gology-[facility] Work Phone: Glucose [Mass/Vol] 201 mg/dL above high threshold 74 - 99 MG-[facility]tolaryn gology-[facility] Work Phone: Glucose [Mass/Vol] 166 mg/dL above high threshold 74 - 99 MG-[facility]tolaryn gology-[facility] Work Phone: [phone] MISCELLANEOUS CULT./SM.BACT. on 11-13-2022 MISCELLANEOUS CULT./SM.BACT. Normal [facility] Comment on above: Performed By: #### M [facility] ####[id number] [place] [address] MISCELLANEOUS CULT./SM.BACT. Normal [facility] Comment on above: Performed By: #### M [facility] ####[id number] [place] [address] SINUS WO CONTRASTon NR CT SINUS WO CONTRAST Normal [facility] Nutrition Therapy-Assessment on 11-13-2022 Nutrition Therapy-Assessment Normal [facility] Order Reconciliationon 11-13 Order Reconciliation Normal [facility] Patient Profile - Adult v2on 11-13-2022 Patient Profile - Adult v2 Normal [facility] Patient Profile - Preop v3on 11-13-2022 Patient Profile - Preop v3 Normal [facility] Radiologyon 11-13-2022 XR Abdomen AP Please click on the link to view the study images Normal MG-[facility]tolaryn [facility]ology-[facility] Work Phone: [facility] Surgical Pathology Depar tmenton 11-13-2022 [facility] Surgical Pathology Department Normal [facility] Comment on above: Performed By: #### U HCS ####[facility] Surgical Pathology [id number] [facility] [facility] [address] BASIC METABOLIC PANELon 10-16 Anion gap [Moles/Vol] 19 mmol/L Normal 10 - 20 [facility] Comment on above: Performed By: #### B MP ####[id number] [place] [address] Calcium [Mass/Vol] 10.1 mg/dL Normal 8.6 - 10.6 [facility] Comment on above: Performed By: #### B MP ####[id number] [place] [address] Chloride [Moles/Vol] 99 mmol/L Normal 98 - 107 [facility] Comment on above: Performed By: #### B MP ####[id number] [place] [address] Creatinine [Mass/Vol] 1.60 mg/dL High 0.50 - 1.30 [facility] Comment on above: Performed By: #### B MP ####[id number] [place] [address] GFR/1.73 sq M.predicted among non-blacks MDRD (S/P/Bld) [Vol rate/Area] 46 mL/min/{1.73_m2} Abnormal >90 [facility] Comment on above: Result Comment: CALC ULATIONS OF ESTIMATED GFR ARE PERFORMED USING THE 2020 CKD-EPI STUDY REFIT EQUATION WITHOUT THE RACE VARIABLE FOR THE IDMS-TRACEABLE CREATININE METHODS.https://jasn.asnjournals.org/content//A SN.1261496290 Performed By: #### B MP ####[id number] [place] [address] Glucose [Mass/Vol] 215 mg/dL High 74 - 99 [facility] Comment on above: Performed By: #### B MP ####[id number] [place] [address] HCO3 (Bld) [Moles/Vol] 25 mmol/L Normal 21 - 32 [facility] Comment on above: Performed By: #### B MP ####[id number] [place] [address] Potassium [Moles/Vol] 4.5 mmol/L Normal 3.5 - 5.3 [facility] Comment on above: Performed By: #### B MP ####[id number] [place] [address] Sodium [Moles/Vol] 138 mmol/L Normal 136 - 145 [facility] Comment on above: Performed By: #### B MP ####[id number] [place] [address] Urea nitrogen [Mass/Vol] 28 mg/dL High 6 - 23 [facility] Comment on above: Performed By: #### B MP ####[id number] [place] [address] CBCon 11-12-2022 Erythrocyte distribution width (RBC) [Ratio] 14.6 % High 11.5 - 14.5 [facility] Comment on above: Performed By: #### C BC ####[id number] [place] [address] Hematocrit (Bld) [Volume fraction] 48.2 % Normal 41.0 - 52.0 [facility] Comment on above: Performed By: #### C BC ####[id number] [place] [address] Hemoglobin (Bld) [Mass/Vol] 15.6 g/dL Normal 13.5 - 17.5 [facility] Comment on above: Performed By: #### C BC ####[id number] [place] [address] MCHC (RBC) [Mass/Vol] 32.4 g/dL Normal 32.0 - 36.0 [facility] Comment on above: Performed By: #### C BC ####[id number] [place] [address] MCV (RBC) [Entitic vol] 96 fL Normal 80 - 100 [facility] Comment on above: Performed By: #### C BC ####[id number] [place] [address] NUCLEATED RBC 0.0 /100 WBC Normal 0.0-0.0 [facility] Comment on above: Performed By: #### C BC ####[id number] [place] [address] Platelets (Bld) [#/Vol] 308 10*3/uL Normal 150 - 450 [facility] Comment on above: Performed By: #### C BC ####[id number] [place] [address] RBC 5.03 x10E12/L Normal 4.50 - 5.90 [facility] Comment on above: Performed By: #### C BC ####[id number] [place] [address] WBC (Bld) [#/Vol] 7.9 10*3/uL Normal 4.4 - 11.3 [facility] Comment on above: Performed By: #### C BC ####[id number] [place] [address] COAGULATION SCREENon 023 aPTT Coag (Bld) [Time] 36 s Normal 26 - 39 [facility] Comment on above: Result Comment: THE APTT IS NO LONGER USED FOR MONITORING UNFRACTIONATED HEPARIN THERAPY. FOR MONITORING HEPARIN THERAPY, USE THE HEPARIN ASSAY. Performed By: #### C OAGS ####[id number] [place] [address] PT Coag (PPP) [Time] 15.2 s High 9.8 - 13.4 [facility] Comment on above: Performed By: #### C OAGS ####[id number] [place] [address] PT, INR 1.3 High 0.9 - 1.1 [facility] Comment on above: Performed By: #### C OAGS ####[id number] [place] [address] CORONAVIRUS 2019, SCREEN ASY MPTOMATICon 11-12-2022 Lab Specimen Source Nasal, Nasopharyngeal Normal [facility] Comment on above: Performed By: #### C OVSC ####[id number] [place] [address] Coronavirus 2019 RNA by PCR, Screening Asymptomticon 11-12-2022 Coronavirus 2019 RNA by PCR, Screening Asymptomtic Not detected Normal See Below -Otolaryn gology-[facility] Work Phone: Comment on above: SOURCE: Nasal, Nasop haryngealReference Range: Not Detected.This assay is designed to detect the ORF1a/b and E genes of SARS-CoV-2 via nucleic acid amplification. A Not Detected result does not preclude 2019-nCoV infection since the adequacy of sample collection and/or low viral burden may result in presence of viral nucleic acids below the clinical sensitivity of this test method. Fact sheet for providers: https://www.fda.gov/media/354616/download Fact sheet for patients: https://www.fda.gov/media/297693/download This test has received FDA Emergency Use Authorization (EUA) and has been verified for use by [facility] ([facility]). This test is only authorized for the duration of time that circumstances exist to justify the authorization of the emergency use of in vitro diagnostic tests for the detection of SARS-CoV-2 virus and/or diagnosis of COVID-19 infection under section 564(b)(1) of the Act, 21 U.S.C. 360bbb-3(b)(1), unless the authorization is terminated or revoked sooner.[facility] is certified under CLIA-88 as qualified to perform high complexity testing. Testing is performed in the [facility] laboratories located at [address] [place] [address]. Electrocardiogram 12 Leadon 11-12-2022 Electrocardiogram 12 Lead Normal [facility] Established Visit (Otolaryng ology)on 11-12-2022 Established Visit (Otolaryngology) Provider Impressions 72 yo man with a destructive process involving much of the left maxilla reviewed CT - mottled appearance throughout the maxilla involving nearly all of the premaxilla bl, and posteriorly into the ptyergoid plates reviewed biopsy - neg for malignancy -suspect pt has a chronic osteo or invasive fungal that's fairly extensive -plan for OR tomorrow for debridement/maxillectomy -pt is away that he may end up with a large defect which will be reconstructed later after approach medical therapy Chief Complaint follow up History of Present Vxwusvu34 yo man who presents for evaluation of pain and swelling in the jaw. He start noticing problems with swelling almost 2 years ago, but more recently has had leakage of food/water from his nose. He had a tooth extracted which didn't help. Had CT scans done. Saw dr. Amador and was referred to me. non smoker. on coumadin for blood clot in the leg. no history of cad. 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 EXPECTORATE AFTER RINSING, DO NOT SWALLOW Cinnamon 500 MG Oral Tablet Clindamycin HCl - 150 MG Oral CapsuleTAKE 3 CAPSULES EVERY 6 HOURS. CONTINUE FOR 10 DAYS AND THEN STOP. Coenzyme Q-10 100 MG Oral Capsule Fluticasone Propionate 50 MCG/ACT Nasal Suspension Furosemide 20 MG Oral Tablet Glimepiride 4 MG Oral Tablet Hibiclens 4 % External LiquidUSE DIRECTED. hydrALAZINE HCl - 50 MG Oral Tablet Jardiance 25 MG Oral Tablet Losartan Potassium 100 MG Oral Tablet Magnesium Oxide 400 MG Oral Tablet Multi Vitamin Mens TABS OneTouch Verio In Vitro Solution OneTouch Verio In Vitro Strip Pioglitazone HCl - 30 MG Oral Tablet Psyllium Husk 100 % POWD Red Yeast Rice 600 MG Oral Capsule Selenium 200 MCG Oral Tablet Spironolactone 50 MG Oral Tablet True Metrix Blood Glucose Test In Vitro Strip True Metrix Go Glucose Meter w/Device Kit Trulicity 3 MG/0.5ML Subcutaneous Solution Pen-injector Vitamin C 1000 MG Oral Tablet Vitamin D 1000 UNIT TABS Warfarin Sodium 1 MG Oral Tablet Warfarin Sodium 5 MG Oral Tablet Zinc TABS Vitals Vital Signs Recorded: 12Nov2022 01:11PM Rffutgkcmzi27.2 F Height6 ft 1 in Coqgyd778 lb BMI Jwtpkjhdto23.81 kg/m2 BSA Calculated2.48 Tobacco Useb) No PHQ-2 #1. Over the last 2 weeks have you felt down, depressed or hopeless? (If yes, answer PHQ-9 below)No PHQ-2 #2. Over the last 2 weeks have you felt little interest or pleasure in doing things? (If yes, answer PHQ-9 below)No Falls Screening (Age 18+)a) No falls within the last year Physical Exam nad alert cayden eomi NCAt nasal cavity clear, no lesions ocop - irregulary appearance left maxilla and premaxilla. exposed bone along the gingival buccal sulcus, necroic appearing. and posteriorly at molar extraction site neck without masses or REBA 'Scores and Scales' Signatures Electronically signed by : Natividad Rodriguez MD; Nov 12 2022 3:57PM EST (Author) Normal [employer] Hemoglobin A1Con 11-12-2022 Glucose [Mass/Vol] 189 mg/dL MG-[place] mag sandra Work Phone: HbA1c (Bld) [Mass fraction] 8.2 % Abnormal -[facility] sandra Work Phone: Comment on above: Diagnosis of Diabete s-Adults Non-Diabetic: < or = 5.6% Increased risk for developing diabetes: 5.7-6.4% Diagnostic of diabetes: > or = 6.5%. Monitoring of Diabetes Age (y) Therapeutic Goal (%) Adults: >18 <7.0 Pediatrics: 13-18 <7.5 7-12 <8.0 0- 6 7.5-8.5 [place] [employer]. Diabetes Care 33(S1), Aug 2009. Laboratory - Blood bankon ABO group Nom (Bld) A MG-Me dicine [facility] 3100 Work Phone: Blood group antibody screen Ql Negative [facility] [place] [id number] Work Phone: Rh immune globulin screen (Bld) [Interp] Positive MG-Medicin e [facility] 3100 Work Phone: Laboratory - Chemistry and C hemistry - challengeon 11-12-2022 Anion gap [Moles/Vol] 19 mmol/L 10 - 20 MG- Medicine [facility] 3100 Work Phone: Calcium [Mass/Vol] 10.1 mg/dL 8.6 - 10.6 MG-Med icine [facility] 3100 Work Phone: Chloride [Moles/Vol] 99 mmol/L 98 - 107 MG-M edicine [facility] 3100 Work Phone: CO2 [Moles/Vol] 25 mmol/L 21 - 32 MG-Medici ne [facility] 3100 Work Phone: Creatinine [Mass/Vol] 1.60 mg/dL above high threshold See Below [place] [address] Work Phone: Comment on above: Reference Range: 0.5 0 - 1.30 Glucose [Mass/Vol] 215 mg/dL above high threshold 74 - 99 [place] [address] Work Phone: Potassium [Moles/Vol] 4.5 mmol/L 3.5 - 5.3 [place] [address] Work Phone: Sodium [Moles/Vol] 138 mmol/L 136 - 145 [place] [address] Work Phone: Urea nitrogen [Mass/Vol] 28 mg/dL above high threshold 6 - 23 [place] [address] Work Phone: Laboratory - Coagulationon 0 11-12-2022 aPTT Coag (PPP) [Time] 36 s 26 - 39 [place] [address] Work Phone: Comment on above: THE APTT IS NO LONGE R USED FOR MONITORING UNFRACTIONATED HEPARIN THERAPY. FOR MONITORING HEPARIN THERAPY, USE THE HEPARIN ASSAY. INR Coag (PPP) [Relative time] 1.3 {INR} above high threshold 0.9 - 1.1 [place] [address] Work Phone: PT Coag (PPP) [Time] 15.2 s above high threshold 9.8 - 13.4 [place] [address] Work Phone: Laboratory - Hematology and Cell countson 11-12-2022 Erythrocyte distribution width (RBC) [Ratio] 14.6 % above high threshold See Below [place] [address] Work Phone: Comment on above: Reference Range: 11. 5 - 14.5 Hematocrit (Bld) [Volume fraction] 48.2 % See Below [place] [address] Work Phone: Comment on above: Reference Range: 41. 0 - 52.0 Hemoglobin (Bld) [Mass/Vol] 15.6 g/dL See Below [place] [address] Work Phone: Comment on above: Reference Range: 13. 5 - 17.5 MCHC (RBC) [Mass/Vol] 32.4 g/dL See Below [place] [address] Work Phone: Comment on above: Reference Range: 32. 0 - 36.0 MCV (RBC) [Entitic vol] 96 fL 80 - 100 [place] [address] Work Phone: Platelets (Bld) [#/Vol] 308 10*3/uL 150 - 450 [place] [address] Work Phone: RBC (Bld) [#/Vol] 5.03 {x10E12/L} See Below [place] [address] Work Phone: Comment on above: Reference Range: 4.5 0 - 5.90 WBC (Bld) [#/Vol] 7.9 10*3/uL 4.4 - 11.3 [place] [address] Work Phone: MRSA Screenon 11-12-2022 Staphylococcus sp identified Org specific cx Nom (Unsp spec) -Otolaryn gology-[facility] Work Phone: [phone] No Panel Informationon 11-12 46 {mL/min/1.73m2} Abnormal >90 [place] [address] Work Phone: Comment on above: CALCULATIONS OF REYNALDO MATED GFR ARE PERFORMED USING THE 2020 CKD-EPI STUDY REFIT EQUATION WITHOUT THE RACE VARIABLE FOR THE IDMS-TRACEABLE CREATININE METHODS.https://jasn.asnjournals.org/content//A SN.8455198286 0.0 {/100_WBC} 0.0-0.0 MG-Medicin e -[facility] [place] [address] Work Phone: [phone] [email or web address] ?[id number] =12-11-2022&Time=08%3a17% 3a11%3a00&TestType=ECG&Si te=1&OutputType=PDF&Ext=P DF [facility] Work Phone: [phone] Sinus rhythm [facility] Work Phone: [phone] Borderline Abnormal [facility] Work Phone: [phone] [facility] Work Phone: [phone]()[phone] 1 [facility] Work Phone: [phone]()[phone] 1 [facility] Work Phone: [phone]()[phone] 1 [facility] Work Phone: [phone]()[phone] 1 [facility] Work Phone: [phone] 1 [facility] Work Phone: [phone]()[phone] 52 1 [facility] Work Phone: 1()[phone] -[phone] 1 [facility] Work Phone: [phone]()[phone] 21 1 [facility] Work Phone: [phone] 1 [facility] Work Phone: [phone] 1 [facility] Work Phone: [phone] 1 [facility] Work Phone: [phone] 1 [facility] Work Phone: Office Visit (Cardiology)on 11-12-2022 Follow-up visit Diagnoses/Problems Assessed Preoperative clearance (.84) (Z01.818) Patient Instructions To reach Dr. Burrows's office please call [phone]. . Call [phone] to schedule an appointment. You may also contact the RNs at [email or web address] (Please include your name and date of ) For MEDICATION REFILLS, please call [phone] option 6 then option 1. Chief Complaint BRENDON DAVID is being seen for a cardiovascular evaluation . For surgical clearance. History of Present Illness He is here for surgical clearance for ENT surgery. He denies fatigue, chest pain, palpitations, shortness of breath, dyspnea on exertion, orthopnea, PND, frequent headaches, dizziness, falls. No edema noted in BLE. EKG was completed today at [facility]. 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 EXPECTORATE AFTER RINSING, DO NOT SWALLOW Cinnamon 500 MG Oral Tablet Clindamycin HCl - 150 MG Oral CapsuleTAKE 3 CAPSULES EVERY 6 HOURS. CONTINUE FOR 10 DAYS AND THEN STOP. Coenzyme Q-10 100 MG Oral Capsule Fluticasone Propionate 50 MCG/ACT Nasal Suspension Furosemide 20 MG Oral Tablet Glimepiride 4 MG Oral Tablet Hibiclens 4 % External LiquidUSE DIRECTED. hydrALAZINE HCl - 50 MG Oral Tablet Jardiance 25 MG Oral Tablet Losartan Potassium 100 MG Oral Tablet Magnesium Oxide 400 MG Oral Tablet Multi Vitamin Mens TABS OneTouch Verio In Vitro Solution OneTouch Verio In Vitro Strip Pioglitazone HCl - 30 MG Oral Tablet Psyllium Husk 100 % POWD Red Yeast Rice 600 MG Oral Capsule Selenium 200 MCG Oral Tablet Spironolactone 50 MG Oral Tablet True Metrix Blood Glucose Test In Vitro Strip True Metrix Go Glucose Meter w/Device Kit Trulicity 3 MG/0.5ML Subcutaneous Solution Pen-injector Vitamin C 1000 MG Oral Tablet Vitamin D 1000 UNIT TABS Warfarin Sodium 1 MG Oral Tablet Warfarin Sodium 5 MG Oral Tablet Zinc TABS Allergies NoKnown No Known Allergies Recorded By: Zulema Sequeira; 10/30/2022 9:06:50 AM Review of Systems Constitutional: as noted in HPI. Cardiovascular: as noted in HPI. Respiratory: as noted in HPI. Neurological: as noted in HPI. 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 He is here for pre-operative risk assessment. He is due to get facial surgery tomorrow due to necrotic bone above teeth (osteomyelitis vs malignancy?). This has been going on for >1 year. He is a non/never-smoker and non-drinker. He had general anesthesia twice a year ago, and tolerated that well (he was under for 3 hours.) His functionality is a bit limited due to pain in knees, but otherwise he has no dyspnea or chest pain. Medical history: -- HTN, controlled -- Diabetes -- History of L leg DVT, on coumadin -- COVID-19 recovered (04/2020), he was admitted for a week due to hypoxia and had an elevation of cardiac enzymes then (cardiac injury) Assessment: His RCRI score is zero suggesting a 3.9% risk of 30-day reggie-operative risk of / FL / cardiac arrest. The fact that he has no symptoms, his ECG looks to be within normal limits, and that he had general anesthesia for prolonged periods in the last year all suggest that his risk is generally low. I spoke to him and his about all of these factors. We agreed that risk is acceptable to him and he is willing to move forward. I don't think other testing is needed at this time. Heather Burrows MD, MPH Section of Advanced Heart Failure and Cardiac Transplantation Division of Cardiovascular Medicine Department of [facility] Signatures Electronically signed by : Heather Burrows MD; Nov 12 2022 11:22AM EST (Author) Normal [facility] STAPH/MRSA SCREENon 11-13-19 23 STAPH/MRSA SCREEN Normal [facility] Comment on above: Performed By: #### S TAPH ####[id number] [place] [address] TYPE + SCREENon 11-12-2022 ABO TYPE A Normal [facility] Comment on above: Performed By: #### T +S ####[id number] [place] [address] RH TYPE Positive Normal [facility] Comment on above: Performed By: #### T +S ####[id number] [place] [address] Tobacco Screening.on 023 Adult depression screening assessment No [facility] [address] Work Phone: Fall risk assessment a) No falls within the last year [facility] [address] Work Phone: Tobacco use status CPHS b) No [facility] [address] Work Phone: Fall risk assessment a) No falls within the last year [facility] [address] Work Phone: Tobacco use status CPHS b) No [facility] [address] Work Phone: Tobacco Screening. Large [facility] [address] Work Phone: Basophil percentageOrdered B y: Dr. Jasso on 11-06-2022 Creatinine [Mass/Vol] 1.1 mg/dL 0.70-1.30 [facility] No Panel InformationOrdered By: Dr. 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) Mouth lesion (528.9) (K13.70) Facial numbness (782.0) (R20.0) Pain of tooth on palpation (525.9) (K08.89) Exposed mandibular bone (733.90) (R29.898) Maxilla pain (784.92) (R68.84) Sinus pain (478.19) (J34.89) Facial pressure (782.0) (R44.8) Orders Cult, Misc + smear; Status:Hold For - Specimen/Data Collection,Retrospective By Protocol Authorization; Requested for:30Oct2022; Site : Wound/Abscess Cult, Misc + smear; Status:Hold For - Specimen/Data Collection,Retrospective By Protocol Authorization; Requested for:[id number]; Site : Wound/Abscess MRI Face w/wo Contrast; Status:Hold For - Scheduling,Retrospective By Protocol Authorization; Requested for:30Oct2022; Radiologist to Determine Optimal Study : Y Does the patient have a Cochlear Implant, Pacemaker, Defibrilator, Pacing Wire, Brain Aneurysm Clip, Implanted Nerve or Bone Graft Simulator, Implanted Breast Tissue Edge Drummer, Glucose Monitor, or Neulasta Device? : No What are the patient's signs and symptoms? : oroantral fistula Surgical Pathology; Status:Hold For - Specimen/Data Collection,Retrospective By Protocol Authorization; Requested for:[id number]; Type : Biopsy Fixative : Formalin Site B : LEFT POSTERIOR PALATE Type : Biopsy Fixative : Formalin Site A : LEFT ANTERIOR PALATE Patient Discussion/Summary [facility] Please feel free to contact my office by calling [phone] with any questions. Welcome to Dr. Uriah Amador?s clinic. We are here to assist you with your ENT needs at [facility] [place]. Dr. Amador is an ENT that specializes in facial plastic and reconstructive surgery procedures. Dr. Uriah Amador?s office number is [phone] Please call this number to contact his care team regardless of which office you use to access care. This number is the most direct way to communicate with all the members of the care team. Mally Flowers is Dr. Amador's injection molding engineer and you can reach her at [phone]. She can help you with scheduling of appointments, general questions and information. She is available to receive calls Thursday through Thursday from 8:00 am until 4:25 pm. For your convenience, Dr. Amador sees patients at [facility], [facility] at [facility], [facility] at [facility], and [facility].. While we try to make your appointments as convenient as possible, occasionally a visit to another location may be necessary to provide the best care for you. We look forward to working with you to meet your healthcare goals. 1 1 Amended By: Uriah Amador; Oct 31 2022 8:02 AM ESTProvider Impressions concern for malignancy involving the maxilla versus osteomyelitis biopsies and culture taken of the palate, fistula, and maxilla necrotic bone patient has outside CT I was unable to review from bridgette but plan to obtain. I also ordered MRI face w/wo contrast to further evaluate this area will follow up with patient once cultures, biopsies, imaging all reviewed. History of Present Illness Chief Complaint: left vanessa-antral fistula Referring Provider: Dr. Key Jasso and Dr. Sutherland 1 Location: left maxilla Quality: fistula, necrotic bone, swelling Severity: moderate Duration: 1.5 years Timing: all times Context: progressive disease of the left maxilla, denies history of smoking Modifying factors: none Associated signs and symptoms: left facial pain, left facial numbness, fistula of the maxillary sinus underwent previous septoplasty and ESS fistula appeared within the last 2 months no biopsies up to this point dental extraction of the left molar with dry socket now with progressive pain, bone exposure, non-healing wound, palate swelling referred for work up CT sinus wo contrast obtained outside, not available for review today Past, family, and social history obtained but not pertinent to current problem unless documented above. All other systems have been reviewed and are negative for complaint unless documented above. Physical Exam: General: Well-developed and well-nourished in appearance. Skin: No rashes or concerning lesions on the visible portions of the skin. Eyes: Extraocular movements intact. Visual randall grossly normal. Ears: Pinna are normal in shape and position. External canals are patent. Nose: Dorsum is midline Oral Cavity/Oropharynx: left posterior maxilla oroantral fistula, necrotic bone alone left maxilla buccal ridge, raised mucosa of the right hard palate Neck: Midline trachea without masses or lesions. Thyroid is normal in size. Lymphatics: No palpable cervical lymphadenopathy Respiratory: No respiratory distress. Quiet breathing without stertor or stridor. Cardiovascular: Regular rate and rhythm. Warm extremi (more content not included)... Normal [facility] MISCELLANEOUS CULT./SM.BACT. on 10-30-2022 MISCELLANEOUS CULT./SM.BACT. Normal [facility] Comment on above: Performed By: #### M [facility] ####[id number] [place] [address] No Panel Informationon 10-30 [facility]ologM[facility] Work Phone: Tobacco Screening.on 023 Adult depression screening assessment No -[facility]olar[facility] [address] Work Phone: Fall risk assessment a) No falls within the last year -Otolarlis[facility] [address] Work Phone: Tobacco use status CPHS b) No -Otolaryn [facility] [address] Work Phone: [facility] Surgical Pathology Depar tmenton 10-30-2022 [facility] Surgical Pathology Department Normal [facility] Comment on above: Performed By: #### U [facility] ####[facility] Surgical Pathology [id number] [place] [address] Basophil percentageon 2021 WBC (Bld) [#/Vol] 7.7 10*3/uL 4.4-11.0 [facility] Work Phone: Blood erythrocytes count (nu mber/volume)on 05-27-2022 RBC (Bld) [#/Vol] 4.87 10*6/uL 4.6-6.2 [facility] Work Phone: Blood hemoglobin measurement (mass/volume)on 05-27-2022 Hemoglobin (Bld) [Mass/Vol] 15.7 g/dL 13.0-16.5 [facility] Work Phone: Blood platelet mean volumeon 05-27-2022 Platelet mean volume (Bld) [Entitic vol] 9.4 fL 6.2-12.0 [facility] Work Phone: Determination of erythrocyte mean corpuscular volume (MCV)on 05-27-2022 MCV (RBC) [Entitic vol] 96.5 fL 80-94 [facility] Work Phone: Glucose Glucometer (BldC) [M ass/Vol]on 05-27-2022 Glucose [Mass/Vol] 216 mg/dL 74-106 [facility] Work Phone: Comment on above: MANAGEMENT OF PATIEN T CARE PER NURSING PROTOCOL Hematocrit Auto (Bld) [Volum e fraction]on 05-27-2022 Hematocrit (Bld) [Volume fraction] 47.0 % 40-54 [facility] Work Phone: Laboratory - Coagulationon 1 INR Coag (Bld) [Relative time] 1.1 {INR} [facility] Work Phone: Comment on above: Critical Value > 4.0 Laboratory - Hematology and Cell countson 05-27-2022 Erythrocyte distribution width (RBC) [Entitic vol] 51.4 fL 35.1-43.9 [facility] Work Phone: Erythrocyte distribution width (RBC) [Ratio] 14.4 % 11.6-14.6 [facility] Work Phone: MCH (RBC) [Entitic mass] 32.2 pg 27.0-32.0 [facility] Work Phone: MCHC Auto (RBC) [Mass/Vol]on 05-27-2022 MCHC (RBC) [Mass/Vol] 33.4 g/dL 32-36 [facility] Work Phone: Platelets bldon 05-27-2022 Platelets (Bld) [#/Vol] 305 10*3/uL 150-450 [facility] Work Phone: Whole blood prothrombin time on 05-27-2022 PT Coag (Bld) [Time] 14.2 s 11.7-14.9 [facility] Work Phone: Basophil percentageon 2021 Chloride [Moles/Vol] 103 mmol/L 98-107 [facility] Work Phone: Glucose [Mass/Vol] 138 mg/dL 74-106 [facility] Work Phone: Comment on above: Fasting Glucose resu lt greater than or equal to 126 mg/dL suggests DIABETES MELLITUS per A.D.A. criteria. Potassium [Moles/Vol] 4.2 mmol/L 3.5-5.1 [facility] Work Phone: Sodium [Moles/Vol] 138 mmol/L 136-145 [facility] Work Phone: Laboratory - Chemistry and C hemistry - challengeon 05-22-2022 CO2 [Moles/Vol] 26.0 mmol/L 21.0-32.0 [facility] Work Phone: Urea nitrogen/Creatinine [Mass ratio] 16.2 mg/mg 10-20 [facility] Work Phone: No Panel Informationon 05-22 Estimated GFR (MDRD) Amer 45 mL/min >60 [facility] Work Phone: Comment on above: GFR Calc Estimated GFR (MDRD) Non-Af Amer 37 mL/min >60 [facility] Work Phone: Comment on above: Non- GFR Calc Serum or plasma calcium lisa urement (mass/volume)on 05-22-2022 Calcium [Mass/Vol] 9.2 mg/dL 8.5-10.1 [facility] Work Phone: Serum or plasma creatinine m easurement (mass/volume)on 05-22-2022 Creatinine [Mass/Vol] 1.91 mg/dL 0.70-1.30 [facility] Work Phone: Comment on above: The validity of the calculated GFR & GFRAA in patients over 70 years has not been determined. Clinical correlation is essential. Serum or plasma urea nitroge n measurement (mass/volume)on 05-22-2022 Urea nitrogen [Mass/Vol] 31 mg/dL 7-18 [facility] Work Phone: Thin prep Papanicolaou smear with manual screeningon 05-22-2022 Thin prep Papanicolaou smear with manual screening 9 5-15 [facility] Work Phone: Absolute lymphocyte counton 12-20-2021 Lymphocytes Auto (Unsp spec) [#/Vol] 1.23 10*3/uL 0.83-4.51 [facility] Work Phone: Basophil percentageon 2021 Basophils/100 WBC (Bld) 0.5 % 0-1 [facility] Work Phone: Bilirubin [Mass/Vol] 0.50 mg/dL 0.20-1.00 [facility] Work Phone: Comment on above: For patients on eltr ombopag therapy, use of Dimension [place] TBIL is not recommended. Chloride [Moles/Vol] 100 mmol/L 98-107 [facility] Work Phone: Eosinophils/100 WBC (Bld) 2.0 % 0-5 [facility] Work Phone: Glucose [Mass/Vol] 121 mg/dL 74-106 [facility] Work Phone: Comment on above: Fasting Glucose resu lt from 100 to 125 mg/dL suggests IMPAIRED HOMEOSTASIS per A.D.A. criteria. Neutrophils (Bld) [#/Vol] 5.2 10*3/uL 2.0-7.7 [facility] Work Phone: Neutrophils/100 WBC (Bld) 70.7 % 47-70 [facility] Work Phone: Potassium [Moles/Vol] 4.3 mmol/L 3.5-5.1 [facility] Work Phone: Comment on above: Slight Hemolysis, Re sult may be falsely increased. Protein [Mass/Vol] 7.4 g/dL 6.4-8.2 [facility] Work Phone: Sodium [Moles/Vol] 136 mmol/L 136-145 [facility] Work Phone: WBC (Bld) [#/Vol] 7.4 10*3/uL 4.4-11.0 [facility] Work Phone: Blood erythrocytes count (nu mber/volume)on 12-20-2021 RBC (Bld) [#/Vol] 4.94 10*6/uL 4.6-6.2 [facility] Work Phone: Blood hemoglobin measurement (mass/volume)on 12-20-2021 Hemoglobin (Bld) [Mass/Vol] 15.7 g/dL 13.0-16.5 [facility] Work Phone: Blood lymphocytes/100 leukoc yteson 12-20-2021 Lymphocytes/100 WBC (Bld) 16.6 % 19-41 [facility] Work Phone: Blood monocytes/100 leukocyt eson 12-20-2021 Monocytes/100 WBC (Bld) 9.0 % 0-10 [facility] Work Phone: Blood platelet mean volumeon 12-20-2021 Platelet mean volume (Bld) [Entitic vol] 9.7 fL 6.2-12.0 [facility] Work Phone: Determination of erythrocyte mean corpuscular volume (MCV)on 12-20-2021 MCV (RBC) [Entitic vol] 95.5 fL 80-94 [facility] Work Phone: Hematocrit Auto (Bld) [Volum e fraction]on 12-20-2021 Hematocrit (Bld) [Volume fraction] 47.2 % 40-54 [facility] Work Phone: INR in Blood by Coagulation assayon 12-20-2021 INR Coag (Bld) [Relative time] 2.1 {INR} [facility] Work Phone: Laboratory - Chemistry and C hemistry - challengeon 12-20-2021 ALP [Catalytic activity/Vol] 53 U/L 45-117 [facility] Work Phone: ALT [Catalytic activity/Vol] 26 U/L 16-61 [facility] Work Phone: CO2 [Moles/Vol] 29.0 mmol/L 21.0-32.0 [facility] Work Phone: Globulin (S) [Mass/Vol] 4.0 g/dL 2.2-4.2 [facility] Work Phone: Urea nitrogen/Creatinine [Mass ratio] 18.3 mg/mg 10-20 [facility] Work Phone: Laboratory - Coagulationon 0 12-20-2021 PT Coag (PPP) [Time] 23.3 s 11.7-14.9 [facility] Work Phone: Laboratory - Hematology and Cell countson 12-20-2021 Erythrocyte distribution width (RBC) [Entitic vol] 51.8 fL 35.1-43.9 [facility] Work Phone: Erythrocyte distribution width (RBC) [Ratio] 14.7 % 11.6-14.6 [facility] Work Phone: Immature granulocytes/100 WBC (Bld) 1.200 % 0.0-0.9 [facility] Work Phone: Comment on above: IG% - Immature Granu locytes (promyelocytes, myelocytes and metamyelocytes) > 1% indicates that a LEFT SHIFT is Present. MCH (RBC) [Entitic mass] 31.8 pg 27.0-32.0 [facility] Work Phone: Nucleated RBC/100 WBC (Bld) [Ratio] 0 % 0-5 [facility] Work Phone: MCHC Auto (RBC) [Mass/Vol]on 12-20-2021 MCHC (RBC) [Mass/Vol] 33.3 g/dL 32-36 [facility] Work Phone: No Panel Informationon 12-20 Estimated GFR (MDRD) Amer 52 mL/min >60 [facility] Work Phone: Comment on above: GFR Calc Estimated GFR (MDRD) Non-Af Amer 43 mL/min >60 [facility] Work Phone: Comment on above: Non- GFR Calc Urine Microalbumin/Creatinin e Ratio 29.0 mg/g CRE <30 [facility] Work Phone: Platelets bldon 12-20-2021 Platelets (Bld) [#/Vol] 309 10*3/uL 150-450 [facility] Work Phone: Serum or plasma albumin lisa urement (mass/volume)on 12-20-2021 Albumin [Mass/Vol] 3.4 g/dL 3.2-5.0 [facility] Work Phone: Serum or plasma albumin/glob ulin mass ratioon 12-20-2021 Albumin/Globulin [Mass ratio] 0.8 {ratio} 0.9-2.4 [facility] Work Phone: Serum or plasma calcium lisa urement (mass/volume)on 12-20-2021 Calcium [Mass/Vol] 8.9 mg/dL 8.5-10.1 [facility] Work Phone: Serum or plasma creatinine m easurement (mass/volume)on 12-20-2021 Creatinine [Mass/Vol] 1.69 mg/dL 0.70-1.30 [facility] Work Phone: Comment on above: The validity of the calculated GFR & GFRAA in patients over 70 years has not been determined. Clinical correlation is essential. Serum or plasma urea nitroge n measurement (mass/volume)on 12-20-2021 Urea nitrogen [Mass/Vol] 31 mg/dL 7-18 [facility] Work Phone: Thin prep Papanicolaou smear with manual screeningon 12-20-2021 Thin prep Papanicolaou smear with manual screening 19 U/L 15-37 [facility] Work Phone: Comment on above: Slight Hemolysis, Re sult may be falsely increased. Thin prep Papanicolaou smear with manual screening 7 5-15 [facility] Work Phone: Thin prep Papanicolaou smear with manual screening 18.8 mg/L NO RANGE EST. [facility] Work Phone: Urine creatinine measurement (mass/volume)on 12-20-2021 Creatinine (U) [Mass/Vol] 64.90 mg/dL NO RANGE EST. [facility] Work Phone: Whole blood hemoglobin A1c/t otal hemoglobin ratio (mass fraction)on 12-20-2021 HbA1c (Bld) [Mass fraction] 7.8 % 3.8-5.6 [facility] Work Phone: Comment on above: Normal < 5.7 % Predi abetic 5.7 - 6.4 % Diabetic >or= 6.5 % Please note range changes. Basophil percentageon 2021 Creatinine [Mass/Vol] 1.1 mg/dL 0.70-1.30 [facility] Work Phone: No Panel Informationon 11-26 Bedside Estimated GFR (eGFR) > 60.0000 mL/min >60 [facility] Work Phone: Vital Signs Date Time Vital Sign Value Performing Clinician Facility 01-05-2025 08:02-0400 Body height 185.[address] Key Jasso MD Work Phone: [facility] 01-05-2025 08:02-0400 Body mass index (BMI) [Ratio] 36.3 kg/m2 Dr. Key Jasso MD Work Phone: [facility] 01-05-2025 08:02-0400 Body weight 124.[address] Key Jasso MD Work Phone: [facility] 10-03-2024 10:00-0500 Body height 185.4 cm Natividad Rodriguez MD Work Phone: [facility] 10-03-2024 10:00-0500 Body mass index (BMI) [Ratio] 35.62 kg/m2 Natividad Rodriguez MD Work Phone: [facility] 10-03-2024 10:00-0500 Body weight 122.47 kg Natividad Rodriguez MD Work Phone: [facility] 11-02-2023 09:38-0400 Body mass index (BMI) [Ratio] 39.84 kg/m2 Natividad Rodriguez MD Work Phone: [facility] 11-02-2023 09:38-0400 Body temperature 96.69 [degF] Natividad Rodriguez MD Work Phone: [facility] 11-02-2023 09:38-0400 Body weight 136.99 kg Natividad Rodriguez MD Work Phone: [facility] 07-06-2023 08:46-0500 Body height 185.4 cm Natividad Rodriguez MD Work Phone: [facility] 07-06-2023 08:46-0500 Body mass index (BMI) [Ratio] 36.84 kg/m2 Natividad Rodriguez MD Work Phone: [facility] 07-06-2023 08:46-0500 Body temperature 96.91 [degF] Natividad Rodriguez MD Work Phone: [facility] 07-06-2023 08:46-0500 Body weight 126.64 kg Natividad Rodriguez MD Work Phone: [facility] 05-04-2023 11:10-0400 Body height 185.42 cm Key Jasso Work Phone: [facility] Work Phone: 05-04-2023 11:10-0400 Body mass index (BMI) [Ratio] 35.62 kg/m2 Key Jasso Work Phone: [facility] Work Phone: 05-04-2023 11:10-0400 Body surface area Derived from formula 2.44 m2 Key Jasso Work Phone: [facility] 4[facility] Work Phone: 05-04-2023 11:10-0400 Body weight 122.47 kg Key Jasso Work Phone: [facility] 4[facility] Work Phone: 01-19-2023 08:50-0400 Body mass index (BMI) [Ratio] Medical Reason Not Done Key Jasso Work Phone: [facility] 4100 Work Phone: 01-05-2023 09:40-0400 Body height 185.42 cm Key Jasso Work Phone: [facility]logC[facility] 4100 Work Phone: 01-05-2023 09:40-0400 Body mass index (BMI) [Ratio] 33.46 kg/m2 Key Jasso Work Phone: [facility] 4[facility] Work Phone: 01-05-2023 09:40-0400 Body surface area Derived from formula 2.38 m2 Key Jasso Work Phone: [facility] Work Phone: 01-05-2023 09:40-0400 Body temperature 96 [degF] Key Jasso Work Phone: [facility] 4100 Work Phone: 01-05-2023 09:40-0400 Body weight 115.03 kg Key Jasso Work Phone: [facility] 4[facility] Work Phone: 01-02-2023 09:46-0400 Body height 185.42 cm Key Jasso Work Phone: [facility]elynSan[facility] 4100 Work Phone: 01-02-2023 09:46-0400 Body mass index (BMI) [Ratio] 35.23 kg/m2 Key Jasso Work Phone: [facility] 4100 Work Phone: 01-02-2023 09:46-0400 Body surface area Derived from formula 2.43 m2 Keynevin Jasso Work Phone: [facility]arynlogy[facility] 4100 Work Phone: 01-02-2023 09:46-0400 Body weight 121.11 kg Keynevin Jasso Work Phone: [facility] 4100 Work Phone: 01-02-2023 09:46-0400 Diastolic blood pressure 66 mm[Hg] Key Thiago Jasso Work Phone: [facility] 4100 Work Phone: 01-02-2023 09:46-0400 Heart rate 51 /min Key Thiago Jasso Work Phone: [facility] 4[facility] Work Phone: 01-02-2023 09:46-0400 Respiratory rate 14 /min Key Thiago Jasso Work Phone: [facility]arynlog[facility] 4100 Work Phone: 01-02-2023 09:46-0400 SaO2% (BldA) [Mass fraction] 99 % Key Thiago Jasso Work Phone: [facility] 4100 Work Phone: 01-02-2023 09:46-0400 Systolic blood pressure 124 mm[Hg] Key Thiago Jasso Work Phone: [facility]ologySi[facility] 4100 Work Phone: 12-29-2022 12:15-0400 Body height 185.42 cm Key Thiago Jasso Work Phone: [facility]arynlogySi[facility] 4100 Work Phone: 12-29-2022 12:15-0400 Body mass index (BMI) [Ratio] 35.25 kg/m2 Key Jasso Work Phone: MG-Otbunnlevelynkingman regional medical centerySi[facility] 4100 Work Phone: 12-29-2022 12:15-0400 Body surface area Derived from formula 2.43 m2 Keynevin Jasso Work Phone: [facility] 4100 Work Phone: 12-29-2022 12:15-0400 Body temperature 96.6 [degF] Keynevin Jasso Work Phone: [facility] 4100 Work Phone: 12-29-2022 12:15-0400 Body weight 121.2 kg Keynevin Jasso Work Phone: [facility] 4100 Work Phone: 12-23-2022 11:11-0400 Body height 185.42 cm Key Jasso Work Phone: [facility]-Infectious [facility] [place] Work Phone: 12-23-2022 11:11-0400 Body mass index (BMI) [Ratio] 35.24 kg/m2 Key Jasso Work Phone: [facility]ious [facility] [place] Work Phone: 12-23-2022 11:11-0400 Body surface area Derived from formula 2.43 m2 Keynevin Jasso Work Phone: [facility] [place] Work Phone: 12-23-2022 11:11-0400 Body temperature 97.6 [degF] Key Thiago Jasso Work Phone: [facility] [place] Work Phone: 12-23-2022 11:11-0400 Body weight 121.17 kg Key A Jasso Work Phone: [facility]fectious Disease-[facility] [place] Work Phone: 12-23-2022 11:11-0400 Diastolic blood pressure 73 mm[Hg] Key Jasso Work Phone: [facility] [place] Work Phone: 12-23-2022 11:11-0400 Heart rate 53 /min Key Jasso Work Phone: [facility] [place] Work Phone: 12-23-2022 11:11-0400 Systolic blood pressure 123 mm[Hg] Key Jasso Work Phone: [facility] [place] Work Phone: 12-15-2022 11:41-0400 Body mass index (BMI) [Ratio] Medical Reason Not Done Key Jasso Work Phone: [facility] 4100 Work Phone: 12-10-2022 11:04-0400 Body temperature 96.98 [degF] Key Jasso Other Phone: [facility] 12-10-2022 11:04-0400 Diastolic blood pressure 64 mm[Hg] Key Jasso Other Phone: [facility] 12-10-2022 11:04-0400 Heart rate 60 /min Key Jasso Other Phone: [facility] 12-10-2022 11:04-0400 Respiratory rate 19 /min Key Jasso Other Phone: [facility] 12-10-2022 11:04-0400 SaO2% (BldA) [Mass fraction] 98 % Key Jasso Other Phone: [facility] 12-10-2022 11:04-0400 Systolic blood pressure 100 mm[Hg] Key Jasso Other Phone: [facility] 12-04-2022 15:49-0400 Body temperature 37.0 {degrees_C} Key Jasso Work Phone: [facility] 4[facility] Work Phone: Comment on above: NOTE: PATIENT RESULTS ARE NOT CORRECTED FOR TEMPERATURE. 12-04-2022 10:39-0400 Body temperature 37.0 {degrees_C} Keynevin Jasso Work Phone: [facility] 4100 Work Phone: Comment on above: NOTE: PATIENT RESULTS ARE NOT CORRECTED FOR TEMPERATURE. 12-04-2022 10:39-0400 SaO2% (BldA) [Mass fraction] 97 % Keynevin Jasso Work Phone: [facility] 4100 Work Phone: 12-03-2022 17:13-0400 Body temperature 37.0 {degrees_C} Key Jasso Work Phone: [facility] 4[facility] Work Phone: Comment on above: NOTE: PATIENT RESULTS ARE NOT CORRECTED FOR TEMPERATURE. 12-03-2022 17:13-0400 SaO2% (BldA) [Mass fraction] 100 % Keynevin Jasso Work Phone: [facility] 4[facility] Work Phone: 12-03-2022 14:15-0400 Body temperature 37.0 {degrees_C} Key Jasso Work Phone: [facility]unnlevelynSan[facility] 4106 Work Phone: Comment on above: NOTE: PATIENT RESULTS ARE NOT CORRECTED FOR TEMPERATURE. 12-03-2022 14:15-0400 SaO2% (BldA) [Mass fraction] 99 % Key Jasso Work Phone: [facility] 4100 Work Phone: 12-03-2022 09:52-0400 Body temperature 37.0 {degrees_C} Key Jasso Work Phone: [facility]unn[facility]elynSan[facility] 4100 Work Phone: Comment on above: NOTE: PATIENT RESULTS ARE NOT CORRECTED FOR TEMPERATURE. 12-03-2022 09:52-0400 SaO2% (BldA) [Mass fraction] 100 % Key Thiago Jasso Work Phone: [facility] 4100 Work Phone: 12-01-2022 09:44-0400 Body height 185.42 cm Key Thiago Jasso Work Phone: [facility] 4100 Work Phone: 12-01-2022 09:44-0400 Body mass index (BMI) [Ratio] 36.44 kg/m2 Key Thiago Jasso Work Phone: [facility] 4100 Work Phone: 12-01-2022 09:44-0400 Body surface area Derived from formula 2.47 m2 Key Thiago Jasso Work Phone: [facility] 4100 Work Phone: 12-01-2022 09:44-0400 Body weight 125.28 kg Key Thiago Jasso Work Phone: [facility] Work Phone: 12-01-2022 05:04-0400 Diastolic blood pressure 65 mm[Hg] [facility] 12-01-2022 05:04-0400 Heart rate 62 /min [facility] 12-01-2022 05:04-0400 Respiratory rate 20 /min [facility] 12-01-2022 05:04-0400 SaO2% (BldA) [Mass fraction] 95 % [facility] 12-01-2022 05:04-0400 Systolic blood pressure 112 mm[Hg] [facility] 12-01-2022 00:12-0400 Body height 185.42 cm [facility] 12-01-2022 00:12-0400 Body mass index (BMI) [Ratio] 37.6 kg/m2 [facility] 12-01-2022 00:12-0400 Body temperature 97.4 [degF] [facility] 12-01-2022 00:12-0400 Body weight 129.4 kg [facility] 11-25-2022 14:39-0400 Body height 185.42 cm Key Das [employer] Work Phone: [facility] [employer] Work Phone: 11-25-2022 14:39-0400 Body mass index (BMI) [Ratio] 37.14 kg/m2 Key Das [employer] Work Phone: [facility] [employer] Work Phone: 11-25-2022 14:39-0400 Body surface area Derived from formula 2.49 m2 Key Das [employer] Work Phone: [facility] [employer] Work Phone: 11-25-2022 14:39-0400 Body temperature 98 [degF] Key Das Jasso Work Phone: [facility] [employer] Work Phone: 11-25-2022 14:39-0400 Body weight 127.69 kg Key Das [employer] Work Phone: [facility] [employer] Work Phone: 11-25-2022 14:39-0400 Diastolic blood pressure 80 mm[Hg] Key Das [employer] Work Phone: [facility] [employer] Work Phone: 11-25-2022 14:39-0400 Heart rate 59 /min Keynevin Jasso Work Phone: [facility] [employer] Work Phone: 11-25-2022 14:39-0400 Respiratory rate 16 /min Keynevin Jasso Work Phone: [facility] [place] Work Phone: 11-25-2022 14:39-0400 SaO2% (BldA) [Mass fraction] 97 % Key Thiago Jasso Work Phone: [facility] [employer] Work Phone: 11-25-2022 14:39-0400 Systolic blood pressure 140 mm[Hg] Key Thiago Jasso Work Phone: [facility] [place] Work Phone: 11-18-2022 07:43-0400 Body temperature 97.88 [degF] Key Jasso Other Phone: [facility] 11-18-2022 07:43-0400 Diastolic blood pressure 79 mm[Hg] Kye Jasso Other Phone: [facility] 11-18-2022 07:43-0400 Heart rate 86 /min Key Jasso Other Phone: [facility] 11-18-2022 07:43-0400 Respiratory rate 18 /min Key Romero Other Phone: [facility] 11-18-2022 07:43-0400 SaO2% (BldA) [Mass fraction] 97 % Key Romero Other Phone: [facility] 11-18-2022 07:43-0400 Systolic blood pressure 159 mm[Hg] Key Jasso Other Phone: [facility] 11-12-2022 13:11-0400 Body height 185.42 cm Keynevin Jasso Work Phone: JE-Plplvasj-Cbrbra [facility] [address] Work Phone: 11-12-2022 13:11-0400 Body mass index (BMI) [Ratio] 36.81 kg/m2 Key Thiago Jasso Work Phone: NH-Glmpyjei-Ixneyv [facility] [address] Work Phone: 11-12-2022 13:11-0400 Body surface area Derived from formula 2.48 m2 Key Das Romero Work Phone: KG-Lnujppcc-Wrwqcq [facility] [place] [address] Work Phone: 11-12-2022 13:11-0400 Body temperature 97.2 [degF] Key Das Romero Work Phone: WL-Vywegvjd-Teieud [facility] [place] [address] Work Phone: 11-12-2022 13:11-0400 Body weight 126.55 kg Key Das Romero Work Phone: PH-Qsgqhamk-Ekqscr [facility] [place] [address] Work Phone: 11-12-2022 10:41-0400 Body height 185.42 cm Key Das Romero Work Phone: XY-Meslqluc-Mjzdbf [facility] [address] Work Phone: 11-12-2022 10:41-0400 Body mass index (BMI) [Ratio] 36.84 kg/m2 Key Das Romero Work Phone: KP-Cbofeowy-Zldlvs [facility] [place] [address] Work Phone: 11-12-2022 10:41-0400 Body surface area Derived from formula 2.48 m2 Key Das Jasso Work Phone: GA-Tdkbvuqv-Qvozwd [facility] [place] [address] Work Phone: 11-12-2022 10:41-0400 Body temperature 97.7 [degF] Key Jasso Work Phone: VR-Genavdsf-Euzvgs [facility] [address] Work Phone: 11-12-2022 10:41-0400 Body weight 126.67 kg Keynevin Jasso Work Phone: TB-Dnalnitc-Iiayxx [facility] [place] [address] Work Phone: 11-12-2022 10:41-0400 Diastolic blood pressure 71 mm[Hg] Key Thiago Jasso Work Phone: SM-Kipulxme-Lkgjhm [facility] [place] [address] Work Phone: 11-12-2022 10:41-0400 Heart rate 64 /min Key Thiago Jasso Work Phone: IN-Mkcqdhcm-Sjtekd [facility] [place] [address] Work Phone: 11-12-2022 10:41-0400 SaO2% (BldA) [Mass fraction] 95 % Key Thiago Jasso Work Phone: KG-Tsxjrhgp-Vrebtz [facility] [place] [address] Work Phone: 11-12-2022 10:41-0400 Systolic blood pressure 129 mm[Hg] Key Thiago Jasso Work Phone: NA-Zjcsxoar-Xfsqua [facility] [place] [address] Work Phone: 10-30-2022 08:58-0400 Body height 185.42 cm Unknown [facility] Work Phone: 10-30-2022 08:58-0400 Body mass index (BMI) [Ratio] 36.98 kg/m2 Unknown Unknown [facility] 4100 Work Phone: 10-30-2022 08:58-0400 Body surface area Derived from formula 2.48 m2 Unknown Unknown [facility] 4100 Work Phone: 10-30-2022 08:58-0400 Body temperature 97.3 [degF] Unknown Unknown [facility] 4100 Work Phone: 10-30-2022 08:58-0400 Body weight 127.14 kg Unknown Unknown [facility] 4100 Work Phone: 05-27-2022 14:18-0400 Body temperature 98.6 [degF] [facility] Work Phone: 05-27-2022 14:18-0400 Diastolic blood pressure 64 mm[Hg] [facility] Work Phone: 05-27-2022 14:18-0400 Heart rate 65 /min [facility] Work Phone: 05-27-2022 14:18-0400 Respiratory rate 16 /min [facility] Work Phone: 05-27-2022 14:18-0400 SaO2% (BldA) [Mass fraction] 98 % [facility] Work Phone: 05-27-2022 14:18-0400 Systolic blood pressure 136 mm[Hg] [facility] Work Phone: 05-27-2022 06:58-0400 Body height 185.42 cm [facility] Work Phone: 05-27-2022 06:58-0400 Body mass index (BMI) [Ratio] 37.2 kg/m2 [facility] Work Phone: 05-27-2022 06:58-0400 Body weight 127.91 kg [facility] Work Phone: Encounters Encounter Date Encounter Type Care Provider Facility Start: 03-17-2025 End: 03-17-[address] Key Jasso MD Work Phone: -[facility] [place] Start: 03-17-2025 End: 03-17-[address] Key Jasso MD -[facility] [place] Work Phone: Start: 03-17-2025 End: 03-17-2025 ambulatory Key Jasso Facility:[facility] Start: 03-07-2025 End: 03-07-[address] Key Jasso MD Work Phone: -Laboratory [facility] Start: 03-07-2025 End: 03-07-[address] Key Jasso MD -Laboratory [facility] Start: 03-07-2025 End: 03-07-2025 ambulatory Key Jasso Facility:[facility] Start: 01-12-2025 End: 01-12-[address] Key Jasso MD Work Phone: -Physical Therapy Start: 01-12-2025 End: 01-12-[address] Per Pond MD -Physical Therapy Work Phone: Start: 01-12-[address] Per watters MD -Physical Therapy Work Phone: Start: 01-05-2025 End: 01-05-[address] Per Pond MD -[facility] Work Phone: Start: 01-05-2025 End: 01-05-2025 ambulatory Key Jasso Facility[place] Start: 11-21-2024 End: 11-21-[address] Key Jasso MD Work Phone: [facility] Work Phone: Start: 11-21-2024 End: 11-21-[address] [facility] Work Phone: Start: 11-21-2024 End: 11-21-2024 ambulatory Key Jasso Facility:[facility] Start: 10-11-2024 End: 10-11-[address] Key Jasso MD Work Phone: [facility] Work Phone: Start: 10-11-2024 End: 10-11-[address] Key Jasso MD -Laboratory, [facility] Start: 10-11-2024 End: 10-11-2024 ambulatory Key Jasso Facility:[facility] Start: 10-03-2024 End: 10-03-2024 Office outpatient visit 10 minutes Natividad Rodriguez MD Work Phone: [facility] Comment on above: History of osteomyel itis (Primary Dx) Start: 10-03-2024 End: 10-03-2024 ambulatory [facility] Start: 06-27-2024 End: 06-27-2024 ambulatory KEY Das [facility] Start: 06-03-2024 End: 06-03-2024 Office outpatient visit 25 minutes Sadia Dickson MD Work Phone: [facility] [place] Comment on above: Osteomyelitis of max illa (Primary Dx); Actinomycosis, cervicofacial Start: 06-03-2024 End: 06-03-2024 ambulatory [facility] Start: 04-13-2024 End: 04-13-2024 ambulatory Key Jasso Facility:[facility] Start: 02-26-2024 End: 02-26-2024 Office outpatient visit 15 minutes Sadia Dickson MD Work Phone: [facility] [place] Comment on above: Actinomycosis, cervi cofacial (Primary Dx) Start: 02-26-2024 End: 02-26-2024 ambulatory [facility] Start: 12-15-2023 End: 12-15-2023 Office outpatient visit 25 minutes Sadia Dickson MD Work Phone: [facility] [place] Comment on above: Actinomycosis, cervi cofacial (Primary Dx); Osteomyelitis of maxilla Start: 12-15-2023 End: 12-15-2023 ambulatory [facility] Start: 12-07-2023 End: 12-07-2023 ambulatory [facility] Work Phone: Start: 12-07-2023 End: 12-07-2023 Patient encounter [facility] Start: 11-02-2023 End: 11-02-2023 Office outpatient visit 15 minutes Natividad Rodriguez MD Work Phone: [facility] Comment on above: Osteomyelitis of max illa (Primary Dx) Start: 11-02-2023 End: 11-02-2023 ambulatory [facility] Start: 08-31-2023 End: 08-31-2023 Office outpatient visit 10 minutes Uriah Amador MD Work Phone: [facility] Comment on above: Osteomyelitis of max illa (Primary Dx) Start: 07-27-2023 End: 07-27-2023 ambulatory [facility] Work Phone: Start: 07-27-2023 End: 07-27-2023 Patient encounter procedure [facility] Start: 07-06-2023 End: 07-06-2023 ambulatory [facility] Work Phone: Start: 07-06-2023 End: 07-06-2023 Patient encounter procedure [facility] Work Phone: Start: 07-06-2023 End: 07-06-2023 Office outpatient visit 15 minutes Natividad Rodriguez MD Work Phone: [facility] Comment on above: Osteomyelitis of max illa (Primary Dx) Start: 06-26-2023 End: 06-26-2023 ambulatory [facility] Work Phone: Start: 06-26-2023 End: 06-26-2023 Patient encounter procedure [facility] Start: 06-22-2023 End: 06-22-2023 ambulatory [facility] Work Phone: Start: 06-22-2023 End: 06-22-2023 Patient encounter procedure [facility] Start: 06-19-2023 End: 06-20-2023 ambulatory [facility] Start: 06-19-2023 End: 06-19-2023 Subsequent hospital visit by physician Ronak Forrester [facility] Comment on above: Inflammatory conditi ons of jaws Start: 05-04-2023 Office outpatient vi sit 15 minutes Key Jasso Work Phone: TQ-[facility]rxadszjvnhgre[facility] 4100 Work Phone: Start: 05-04-2023 ambulatory NATIVIDAD Facility:[id number] Start: 03-31-2023 Office outpatient vi sit 25 minutes Key Jasso Work Phone: MG-Infectious Disease-[facility] [place] Work Phone: Start: 03-31-[address] Key Mon[place] ty:[id number] Start: 02-23-2023 ambulatory [facility] Facility:[id number] Start: 02-20-2023 End: 02-20-2023 ambulatory [facility] Work Phone: Start: 02-20-2023 End: 02-20-2023 Patient encounter procedure [facility] Start: 02-16-2023 Postop follow up vis it related to original px Key A Romero Work Phone: SF-Xaxcbrvzffgzsa-[facility] 4100 Work Phone: Start: 02-16-[address] Key [place] [id number] Start: 01-19-2023 Postop follow up vis it related to original px Keynevin Jasso Work Phone: NV-Kbtahcsbdgkwcg-ErzbAlt[facility] 4100 Work Phone: Start: 01-19-[address] Key [place] [id number] Start: 01-05-2023 Postop follow up vis it related to original px Key A Romero Work Phone: TM-Tdxlpjhbcnndks-EiokAltru Health Systems 4100 Work Phone: Start: 01-05-[address] Key [place] ty:[id number] Start: 01-05-2023 ambulatory NATIVDIAD RODRIGUEZ Facility:[id number] Start: 01-02-2023 ambulatory NATIVIDAD LI Facility:[id number] Start: 12-31-2022 [facility] Provider: Uriah Amador, Status: Pen, Time: 10:00 AM Key Jasso Work Phone: ND-Jorfuqjjdtsavx-KedpAlt[facility] 4106 Work Phone: Start: 12-31-2022 End: 12-31-[address] Key Jasso Facility:[facility] Start: 12-31-2022 End: 12-31-2022 Subsequent hospital visit by physician Uriah Amador MD Work Phone: [facility] Comment on above: Other symptoms and s igns involving the musculoskeletal system; Inflammatory conditions of jaws; Old myocardial infarction; Hyperlipidemia, unspecified; Obstructive sleep apnea (adult) (pediatric); Chronic kidney disease, unspecified; Hypertensive chronic kidney disease with stage 1 through stage 4 chronic kidney disease, or unspecified chronic kidney disease; Gastro-esophageal reflux disease without esophagitis; Type 2 diabetes mellitus with diabetic chronic kidney disease ([facility]); Obesity, unspecified; Personal history of other venous thrombosis and embolism; MCFP (current) use of anticoagulants; Unspecified osteoarthritis, unspecified site; Spinal stenosis, lumbar region without neurogenic claudication; Unspecified visual loss; Chronic sinusitis, unspecified; Personal history of COVID-19; MCFP (current) use of aspirin; MCFP (current) use of oral hypoglycemic drugs Start: 12-30-2022 Chart Update Key Jasso Work Phone: FJ-Gbbgtcbtxzxqqi-Cqai man Work Phone: Start: 12-29-2022 Office outpatient vi sit 15 minutes Key Jasso Work Phone: NP-Pgwcsodhgclmoz-[facility] 4105 Work Phone: Start: 12-29-[address] Key Monaco ty:[id number] Start: 12-23-[address] Key [place]aco ty:[id number] Start: 12-23-2022 Chart Update Key Jasso Work Phone: MG-Infectious Disease-[facility] [place] Work Phone: Start: 12-19-2022 AUDIT Key Jasso Work Phone: MG-Infectious Disease-[facility] [place] Work Phone: Start: 12-17-2022 Chart Update Key Jasso Work Phone: MG-Infectious Disease-[facility] [place] Work Phone: Start: 12-15-2022 Postop follow up vis it related to original px Key Jasso Work Phone: KJ-Ncisoysnjifrke-SaknAlt[facility] 4100 Work Phone: Start: 12-15-[address] Key [place] ty:[id number] Start: 12-03-2022 [facility], Provider: Uriah Amador, Status: Pen, Time: 7:00 AM Key Jasso Work Phone: YN-Cwkujrqoiundxq-WrmeAlt[facility] 4100 Work Phone: Start: 12-03-2022 End: 12-10-2022 Evaluation and management of inpatient Uriah Timo Usha 5 Rm [id number] Start: 12-01-2022 Office outpatient vi sit 15 minutes Key Jasso Work Phone: KV-Thtntivspitlet-[facility]ohoAltru [facility] Systems 4100 Work Phone: Start: 12-01-[address] Key Monaco ty:[id number] Start: 12-01-2022 End: 12-01-2022 Emergency department patient visit [facility]-Emergency Department Start: 11-25-[address] Natividad Rodriguez Facility:9 498 Start: 11-25-2022 Chart Update Key Jasso Work Phone: MG-Infectious Disease-[facility] [employer] Work Phone: Start: 11-17-2022 Chart Update Key Jasso Work Phone: [facility]lxv[facility] 4100 Work Phone: Start: 11-13-2022 End: 11-18-2022 Evaluation and management of inpatient PCP UNKNOWN Facility:[facility] Start: 11-13-2022 Chart Update Key Jasso Work Phone: OJ-Izonuxlomqdsyj-Svyj man Work Phone: Start: 11-13-2022 [facility], Provider: Natividad Rodriguez, Status: Pen, Time: 8:00 AM Key Jasso Work Phone: UJ-Hfzsrsqx-[facility]qrkn[facility]San[facility] [place] [address]01 Work Phone: Start: 11-13-2022 End: 11-18-2022 Evaluation and management of inpatient Natividad Rodriguez Usha 5 Rm [id number] Start: 11-12-[address] Key Jasso Facili ty:[facility] Start: 11-12-2022 ambulatory UNKNOWN UNKNOWN Facilit [id number] Start: 11-12-2022 Office outpatient ne w 45 minutes Key Jasso Work Phone: AY-Epvyhppw-[facility]grseweSan[facility] [place] 3101 Work Phone: Start: 11-12-2022 ambulatory NATIVIDAD RODRIGUEZ Facility:[facility] Start: 11-12-2022 Encounter for blood typing NATIVIDAD RODRIGUEZ [facility] Start: 11-12-2022 Encounter for preprocedural cardiovascular examination NATIVIDAD RODRIGUEZ [facility] Start: 11-12-2022 Encounter for preprocedural laboratory examination NATIVIDAD RODRIGUEZ [facility] Start: 11-06-2022 AUDIT Unknown Unknown MG-Otol aryngology-Akro n 395 Work Phone: Start: 11-06-2022 End: 11-06-2022 ambulatory [facility] Work Phone: Start: 11-06-2022 End: 11-06-2022 Patient encounter procedure [facility]-MRI - [facility] Start: 10-30-2022 ambulatory [facility] Facility: [facility] Start: 10-30-2022 Office consultation new/estab patient 80 min Unknown Unknown LP-Skftimuycdpqzx-Epxm n 395 Work Phone: Start: 10-30-2022 Patient encounter procedure Unknown Unknown TB-Hfueylsrpnmboh-[facility] 4100 Work Phone: Start: 10-30-2022 [facility] Facility: [facility] Start: 09-30-2022 End: 09-30-2022 [facility] Work Phone: Start: 09-30-2022 End: 09-30-2022 Patient encounter procedure [facility]-Cat Scan, [facility] Start: 05-27-2022 End: 05-27-2022 Admission to same day surgery center [facility]-Surgical Day Care Start: 05-27-2022 End: 05-27-2022 ambulatory [facility] Work Phone: Start: 04-07-2022 End: 04-07-2022 [facility] Work Phone: Start: 04-07-2022 End: 04-07-2022 Patient encounter procedure [facility]-Cat Scan, [facility] Start: 12-20-2021 End: 12-20-2021 Patient encounter procedure [facility]-Laboratory, [facility] Start: 11-26-2021 End: 11-26-2021 Patient encounter procedure [facility]-Cat Scan, [facility] Preoperative state Key Jasso Work Phone: AC-Wsvxfcoa-SzkhizhSan[facility] [place] 3100 Work Phone: Procedures Date Procedure Procedure Detail Performing Clinician Start: 03-07-2025 Urine microalbumin/creatinine ratio measurement Dr. Key Jasso MD Work Phone: Start: 01-05-2025 X-ray of lumbosacral spine Dr. Key Jasso MD Work Phone: Start: 11-21-2024 MRI of lumbar spine Dr. Key Jasso MD Work Phone: Start: 10-11-2024 X-ray of lumbar spin e, two or three views Dr. Key Jasso MD Work Phone: Start: 10-03-2024 Follow-up visit Follow-up NATIVIDAD Oneal Start: 07-06-2023 Plain x-ray of hand Start: 06-19-2023 CT FACIAL BONES WO I V CONTRAST NATIVIDAD RODRIGUEZ Start: 06-19-2023 Ct maxillofacial w/o contrast material Natividad Rodriguez MD Work Phone: Start: 12-31-2022 Glucose [Mass/volume ] in Serum or Plasma Uriah Amador MD Work Phone: Start: 12-31-2022 Glucose [Mass/volume ] in Serum or Plasma Uriah Amador MD Work Phone: Start: 12-03-2022 Antibody screen NATIVIDAD Brandt I Comment on above: Performed By: #### T +S ####[id number] [place] [address] Start: 11-12-2022 Antibody screen NATIVIDAD Brandt I Comment on above: Performed By: #### T +S ####[id number] [place] [address] Start: 11-06-2022 MRI of orbit, face a nd neck with contrast Start: 09-30-2022 CT of face Start: 05-27-2022 Functional Endoscopo ic Sinus Surgery (Not Applicable) Start: 04-07-2022 CT of face Start: 11-26-2021 CT of head without contrast Start: 11-26-2021 CT of soft tissues o f neck with contrast Plan of Treatment Date Care Activity Detail Author Start: 10-31-2024 End: 10-31-2024 Patient encounter procedure 10/31/2024 9:45 AM EDT Office Visit [facility] [address] [place] [phone] [place] [address] [place] [address] [facility] Start: 06-03-2024 End: 06-03-2025 C reactive protein [Mass/volume] in Serum or Plasma C-reactive protein Lab Routine Actinomycosis, cervicofacial Osteomyelitis of maxilla Expected: 06/03/2024 (Approximate), Expires: 06/03/2025 [facility] Service Area Work Phone: Comment on above: Expected: 06/03/2024 (Approximate), Expi res: 06/03/2025 Start: 04-17-2024 COVID-19 Vaccine () COVID-19 Vaccine () [facility] Start: 04-17-2024 Influenza vaccination [facility] Start: 01-01-2024 Diabetes mellitus screening Diabetes Screening [facility] Start: 12-18-2023 End: 12-18-2023 Telemedicine consultation with patient 12/18/2023 8:[address] [facility] [address] [facility] [address] [place] [id number] [place] [address] [place], [place] [id number] [facility] Start: 11-14-2023 End: 11-14-2024 Atenolol 50 mg Oral Tablet Daily ; Tablet (TENORMIN)DOSE = 50 mg Feeding tube Daily Start: 14-Nov-2023 End: 13-Nov-2024 Ordered: 13-Nov-2022 Jose Antonio, Dena Intent [facility] Start: 11-02-2023 End: 11-02-2023 Patient encounter procedure 11/02/2023 9:45 AM EDT Office Visit [facility] [address] [facility] [address] [place] [address] [place] [address] [place], [place] [id number] [facility] Start: 08-31-2023 FUV, Provider: Uriah Amador, Status: Pen, Time: 9:30 AM FUV, Provider: Uriah Amador, Status: Pen, Time: 9:30 AM YC-Urtugsnurisxgj-Iak dungin [facility] 4100 Work Phone: Start: 08-31-2023 End: 08-31-2023 Patient encounter procedure 08/31/2023 9:30 AM EST Office Visit [facility] [address] [place] [address] [place] [address] [place], [place] [id number] [facility] Start: 07-31-2023 VIRFUVMARJORIE, Provider: Sadia Dickson, Status: Pen, Time: 8:00 AM VIRFUPERRI, Provider: Saida Dickson, Status: Pen, Time: 8:00 AM MG-Infectious Disease-[facility] Work Phone: Start: 07-31-2023 End: 07-31-2023 Telemedicine consultation with patient 07/31/2023 8:[address] [facility] [address] [facility] [address] [place] [phone] [place] [address] [place], [place] [id number] [facility] Start: 07-06-2023 End: 07-06-2023 Patient encounter procedure 07/06/2023 8:45 AM EST Office Visit [facility] [address] [place] [address] [place] [address] [place] [address] [facility] Start: 04-17-2023 COVID-19 Vaccine (1 season) COVID-19 Vaccine ( season) [facility] Start: 04-17-2023 Influenza vaccination Influenza Vaccine (#1) [facility] Start: 03-31-2023 VIRFUVHOME, Provider: Sadia Dickson, Status: Pen, Time: 10:20 AM VIRFUVHOME, Provider: Sadia Dickson, Status: Pen, Time: 10:20 AM GT[facility]wnfmms[facility] 4100 Work Phone: Start: 02-23-2023 FUV, Provider: Natividad Rodriguez, Status: Pen, Time: 10:45 AM FUV, Provider: Natividad Rodriguez, Status: Pen, Time: 10:45 AM [facility] 4100 Work Phone: Start: 02-16-2023 POV, Provider: Uriah Amador, Status: Pen, Time: 9:30 AM POV, Provider: Uriah Amador, Status: Pen, Time: 9:30 AM [facility] 4100 Work Phone: Start: 02-12-2023 Hemoglobin A1c measurement Diabetes: Hemoglobin A1C [facility] Start: 01-20-2023 FUV, Provider: Natividad Rodriguez, Status: Pen, Time: 9:00 AM FUV, Provider: Natividad Rodriguez, Status: Pen, Time: 9:00 AM [facility]: Start: 01-19-2023 POV, Provider: Uriah Amador, Status: Pen, Time: 9:00 AM POV, Provider: Uriah Amador, Status: Pen, Time: 9:00 AM WH-Pbbxwnpeczszvu-[facility]zP[facility] 4100 Work Phone: Start: 01-05-2023 POV, Provider: Natividad Rodriguez, Status: Pen, Time: 10:45 AM POV, Provider: Natividad Rodriguez, Status: Pen, Time: 10:45 AM MG-Infectious Disease-[facility] [place] Work Phone: Start: 01-02-2023 FUVHOSP, Provider: Sadia Dickson, Status: Pen, Time: 10:20 AM FUVHOSP, Provider: Sadia Dickson, Status: Pen, Time: 10:20 AM YD-Tbueijityxyfsm[facility] 4100 Work Phone: Start: 01-02-2023 Patient encounter procedure [facility] Infectio us Disease [place] Start: 12-29-2022 FUV, Provider: Uriah Amador, Status: Pen, Time: 12:45 PM FUV, Provider: Uriah Amador, Status: Pen, Time: 12:45 PM DN-Iyefrdhdkfaooe-[facility]CH[facility] 4100 Work Phone: Start: 12-26-2022 Patient encounter procedure [facility] Start: 12-26-2022 POV, Provider: Natividad Rodriguez, Status: Pen, Time: 1:15 PM POV, Provider: Natividad Rodriguez, Status: Pen, Time: 1:15 PM MK-Ilnzpcvjbordaq-M[facility]CH[facility] 4100 Work Phone: Start: 12-22-2022 NPV, Provider: Analisa Barrera, Status: Pen, Time: 1:45 PM NPV, Provider: Analisa Barrera, Status: Pen, Time: 1:45 PM MG-Infectious Disease-[facility] [place]er[place] Work Phone: Start: 12-22-2022 Patient encounter procedure Cardiolog y [facility] Start: 12-15-2022 Patient encounter procedure [facility] Otolaryn gology [place] Start: 11-25-2022 Patient encounter procedure [facility] Miscella neous Start: 11-25-2022 POV, Provider: Natividad Rodriguez, Status: Pen, Time: 2:45 PM POV, Provider: Natividad Rodriguez, Status: Pen, Time: 2:45 PM YT[facility]frbqvwrnac[facility] 4[facility] Work Phone: Start: 11-16-2022 End: 11-17-2023 Insulin Lispro Mild Corrective Scale MILD ; Give SubCutaneous 3 Times a Day Before Meals Hypoglycemia Protocol Call LIP unit(s) if Blood Glucose is between 0 - 70 0 unit(s) if Blood Glucose is between 71 - 150 2 unit(s) if Blood Glucose is between 151 - 200 4 unit(s) if Blood Glucose is between 201 - 250 6 unit(s) if Blood Glucose is between 251 - 300 8 unit(s) if Blood Glucose is between 301 - 350 10 unit(s) if Blood Glucose is between 351 - 400 Notify Provider unit(s) if Blood Glucose is greater than 400Notes from Pharmacy: [facility] Start: 16-Nov-2022 End: 16-Nov-2023 Ordered: 16-Nov-2022 Ej Verdin [facility] Start: 11-15-2022 End: 11-16-2023 Sennosides Oral Liquid 5 mL 2 Times a Day ; DOSE = 5 mL Feeding tube 2 Times a Day Start: 15-Nov-2022 End: 15-Nov-2023 Ordered: 15-Nov-2022 Rigoberto Smith [facility] Start: 11-13-2022 End: 11-14-2023 [facility] Comment on above: When patient has double lumen, flush bot h lumens After blood draws May Give 1ml to 5ml to anesthetize insertion site for patient comfort. Start: 11-13-2022 End: 11-14-2023 [facility] Comment on above: IF patient HAS a secure IV access & is U nconscious, Conscious, NPO or Unable to Eat or Drink. Repeat until BG reaches 100 mg/dL or greater. Push 2-3 mL/minute. Discontinue once BG reaches 100 mg/dL or greater. IF patient DOES NOT have secure IV access & is Unconscious, Conscious, NPO or Unable to Eat or Drink. Repeat until BG reaches 100 mg/dL or greater. Discontinue once BG reaches 100 mg/dL or greater. Start: 05-27-2022 Patient discharge [facility] Work Phone: Start: 08-09-2020 Hepatitis B Vaccines (3 of 3 - 19+ 3-dose series) Hepatitis B Vaccines (3 of 3 - 19+ 3-dose series) [facility] Start: 07-01-2019 DTaP/Tdap/Td Vaccines (1 - Tdap) DTaP/Tdap/Td Vaccines (1 - Tdap) [facility] Start: 2012 RSV High Risk: (Elderly (60+) or Population) (1 - Risk 60-74 years 1-dose series) RSV High Risk: (Elderly (60+) or Population) (1 - Risk 60-74 years 1-dose series) [facility] Start: 2012 RSV patients and/or patients aged 60+ years (1 - 1-dose 60+ series) RSV patients and/or patients aged 60+ years (1 - 1-dose 60+ series) [facility] Start: 1970 Hepatitis C screening Hepatitis C Screening [facility] Start: 1962 Diabetic foot examination Diabetes: Foot Exam [facility] Start: 1962 Glaucoma screening Diabetes: Retinopathy Screening [facility] Start: 03-11-1953 COVID-19 Vaccine (#1) COVID-19 Vaccine (#1) [facility] Start: 1952 Lipid panel Lipid Panel [facility] Start: 1952 Medicare Annual Wellness Visit Medicare Annual Wellness Visit (AWV) [facility] Start: 1952 Screening for malignant neoplasm of colon [facility] Blood chemistry [facility] Work Phone: Electrocardiographic procedure [facility] Work Phone: Hemoglobin A1c/Hemoglobin.total in Blood [facility] Work Phone: Patient Education ED Post Op Wou nd Check, Bleeding [facility] Work Phone: Patient referral [facility] Work Phone: Postoperative pain Postoperative pain [facility] Prothrombin time [facility] Work Phone: Immunizations Immunization Date Immunization Notes Care Provider Fa esther 12-15-2022 zoster vaccine recombinant Key A Jasso Work Phone: MG-Infectious Disease-[facility] Work Phone: 08-28-2022 zoster vaccine recombinant Key Jasso Work Phone: MG-Infectious Disease-[facility] Work Phone: 08-01-2020 hepatitis A vaccine, pediatric/adolescent dosage, 2 dose schedule Key Jasso Work Phone: MG-Infectious Disease-[facility] Work Phone: 04-02-2020 hepatitis B vaccine, adult dosage Key Jasso Work Phone: MG-Infectious Disease-[facility] Work Phone: 02-08-2020 hepatitis B vaccine, adult dosage Key Jasso Work Phone: MG-Infectious Disease-[facility] [place] Work Phone: 02-08-2020 pneumococcal polysaccharide vaccine, 23 valent Key Jasso Work Phone: MG-Infectious Disease-[facility] [place] Work Phone: 06-30-2019 pneumococcal conjuga te vaccine, 13 valent Key Jasso Work Phone: MG-Infectious Disease-[facility] Work Phone: 06-30-2019 tetanus and diphther ia toxoids, adsorbed, preservative free, for adult use (5 Lf of tetanus toxoid and 2 Lf of diphtheria toxoid) Key Jasso Work Phone: MG-Infectious Disease-[facility] Work Phone: Payers Date Payer Category Payer Self-pay [id number] 2020 Medicare [id number] 2020 Medicare supplementa l policy (as second payer) [employer] SENIOR SUPPLEMENT [id number] 2020 Private Health Insurance AETNA S UPPLEMENTAL AETNA SENIOR SUPPLEMENT [id number] 2020-Present [address] [place] [address] [id number] 2020 Private Health Insurance I [id number] 2017 Medicare [id number] 2016 Unknown [id number] 1952 Unknown [id number] 2.840.1.884538.3.57 9.2.1046 1952 Unknown [id number] 2.840.1.710123.3.57 9.2.1046 1952 Unknown [id number] 2.840.1.782868.3.57 9.2.356 1952 Unknown [id number] 2.840.1.307198.3.57 9.2.356 1952 Unknown [id number] 2.840.1.772874.3.57 9.2.356 1952 Unknown [id number] 2.16.840.1.961750.3.57 9.2.356 1952 Unknown [id number] 2.16.840.1.625535.3.57 9.2.356 1952 Unknown [id number] 2.16.840.1.593043.3.57 9.2.356 1952 Unknown [id number] 2.16.840.1.071688.3.57 9.2.356 1952 Unknown [id number] 2.16.840.1.308832.3.57 9.2.356 1952 Unknown [id number] 2.16.840.1.738685.3.57 9.2.356 1952 Unknown [id number] 2.16.840.1.448710.3.57 9.2.356 1952 Unknown [id number] 2.16.840.1.571142.3.57 9.2.356 1952 Unknown [id number] 2.16.840.1.432366.3.57 9.2.356 1952 Unknown [id number] 2.16.840.1.152978.3.57 9.2.356 1952 Unknown [id number] 2.16.840.1.322207.3.57 9.2.356 1952 Unknown [id number] 2.16.840.1.421754.3.57 9.2.356 1952 Unknown [id number] 2.16.840.1.376585.3.57 9.2.356 1952 Unknown [id number] 2.16.840.1.427793.3.57 9.2.356 1952 Unknown [id number] 2.16.840.1.872541.3.57 9.2.356 1952 Unknown [id number] 2.16.840.1.260386.3.57 9.2.356 1952 Unknown [id number] 2.16.840.1.395838.3.57 9.2.1243 1952 Unknown [id number] 2.16.840.1.829419.3.57 9.2.1245 1952 Unknown [id number] 2.16.840.1.015550.3.57 9.2.1244 1952 Unknown [id number] 2.16.840.1.151235.3.57 9.2.1244 1952 Unknown [id number] 2.16.840.1.606677.3.57 9.2.1244 1952 Unknown [id number] 2.16.840.1.151535.3.57 9.2.1244 1952 Unknown [id number] 2.16.840.1.154737.3.57 9.2.1244 Unknown Unknown [id number] 2.16.840.1.474353.3.57 9.2.462 Unknown [id number] 2.16.840.1.360662.3.57 9.2.462 Unknown [id number] 2.16.840.1.596455.3.57 9.2.462 Unknown [id number] 2.16.840.1.012969.3.57 9.2.462 Unknown [id number] 2.16.840.1.015774.3.57 9.2.462 Unknown [id number] 2.16.840.1.596174.3.57 9.2.462 Unknown [id number] 2.16.840.1.593357.3.57 9.2.462 Unknown [id number] 2.16.840.1.074964.3.57 9.2.462 Social History Date Type Detail Facility Start: 06-12-2021 End: 12-01-2022 Tobacco smoking status NHIS Unknown if ever smoked [facility] Start: 05-20-2019 None [facility] Start: 05-20-2019 Spouse/ Signif icant Other [facility] Start: 11-16-2019 Non-smoker [facility] Start: 1950 Sex Assigned At Male W [facility] Start: 1950 Sex Assigned At Not on file [facility] Work Phone: Start: 07-06-2023 End: 11-02-2023 Gender identity Not on file [facility] Work Phone: Start: 06-09-2023 End: 10-03-2024 Exposure to SARS-CoV-2 (event) Not sure [facility] Start: 12-01-2022 End: 07-06-2023 Tobacco smoking status NHIS Never smoked tobacco [facility] Work Phone: Start: 07-06-2023 Tobacco use and exposure Smokeless tobacco non-user [facility] Work Phone: Start: 07-06-2023 End: 11-02-2023 History of Social function [facility] Work Phone: Start: 05-24-2024 End: 06-03-2024 Exposure to SARS-CoV-2 (event) Unable to assess [facility] Start: 10-26-2024 End: 11-24-2024 Sex Male (finding) [facility] Medical Equipment Procedure Code Equipment Code Equipment Origin al Text Equipment Identifier Dates FESS (functional endoscopic sinus surgery) Plant polysaccharide haemostatic agent, bioabsorbable [id number] FDA Start: 05-27-2022 USE 1 EACH DAILY WITH USE OF INSULIN PEN [id number] Start: 10-14-2022 Goals Date Patient Goal Desired Activity /State Functional Status Date Assessment Result Facility Functional observable [facility] Mental Status Date Assessment Result Facility 12-08-2022 Cognitive functi ons :19 [facility] 11-17-2022 Cognitive functi ons [id number] [facility] 05-27-2022 Cognitive function Voice/Name [facility] Work Phone: Clinical Notes 05-04-2021 to 03-28-2025 Note Date & Type Note Facility 03-28-2025 Discharge summary [facility] 03-28-2025 Discharge summary Note Date/Time March 28, 2025 12:58pm [facility] Physical Therapy [facility] [address] [place] [address] / REHABILITATION SERVICES DISCHARGE SUMMARY MR#: [id number] Acct: [id number] Name: BRENDON DAVID Rep #: [id number] : 1950 74 From: Cert. DANGELO RocaT, OCS Referring Dr.: Dr. Per Pond MD Status: REG RCR Insurance: MEDICARE PART A B [employer]ETNA SR SUPPLEMENT INS Patient Information Patient Information: BRENDON DAVID was seen in my office for initial evaluation on 01/11/25. The following Plan of Care was established for this patient: POC Established Initial Frequency: 2x /Week Initial Duration: 4 Weeks Anticipated Interventions Patient/Client Instruction: Educate patient on: Condition and Plan of Care For the Purpose of:: To decrease pain, To increase ROM, To improve muscle performance and motor function, To improve ability to perform ADL's, To increasetolerance to activity/condition/position, To improve ability of physical actionsfor home/community/work/leisure, To improve gait and locomotor functions, To increase flexibility/ROM and To improve tolerance to ADL's Therapeutic Exercise to Include: Strength training, Body mechanics, Postural training, Flexibilty training and Dynamic Lumbar Stabilization For the Purpose of:: To decrease pain, To increase ROM, To improve muscle performance and motor function, To improve ability to perform ADL's, To increasetolerance to activity/condition/position, To improve ability of physical actionsfor home/community/work/leisure, To improve health of tissue, To decrease soft tissue restriction and To increase flexibility/ROM TENS: Yes IF ES: Yes Cryotherapy (ice pack, ice massage): Yes Thermo therapy (hot pack): Yes Ultrasound (thermal/non thermal): Yes For the Purpose of:: To decrease pain, To increase ROM, To improve health of tissue and To decrease soft tissue restriction Last Seen Last Seen: This patient was last seen in our office . Pertinent comments regarding their Physical therapy will appear below: Patient was seen for PT for HEP for lumbar pain At this point I will be discontinuing this patient from physical therapy. I would be happy to see this patient again in the future if found appropriate by the physician. Thank you! Carlos Flores, PT, Cert MDT, OCS Balance/Gait/Functional tests Balance/Special Test Scores Oswestry Low Back Score: 31 <Electronically signed by Carlos Flores PT, Cert. MDT, OCS> 03/28/25 1258 CC: Dr. Per Pond MD; Dr. Key Jasso MD ~ JLA Signed [facility] Work Phone: 1(998) 779-969005-22-2025 Evaluation note* Diagnosis Onset Date Resolution Status Admit Date Balance disorder acute December 7:46am History of lumbar fusion acute January 05, 2025 7:46am Spinal stenosis of lumbar re gion with neurogenic claudication acute January 05, 2025 7:46am Spondylolisthesis, lumbar region acu te January 05, 2025 7:46am [facility] Work Phone: 1(171) 889-958502-25-2025 Radiology Diagnostic study note [facility] Imaging Services [address] [place], [place] [address] Lumbar Spine 2 or 3 Views MR#: [id number] Acct: [id number] Name: BRENDON DAVID Rep #: [id number] : 1950 74 From: Jad Baker MD PCP: Dr. Key Jasso MD Status: REG CLI Study:Lumbar Spine 2 or 3 Views Date of Exam: 10/11/24 Exam# [id number] Ordering Dr: Torito Jasso MD PROCEDURE: LUMBAR SPINE 2 OR 3 VIEWS REASON FOR EXAM: Lower extremity pain and weakness. TECHNIQUE: AP and lateral views were obtained. COMPARISON: None. FINDINGS: Normal lumbar vertebral heights. No evidence of fracture. Marked degree of disc space narrowing at the L2-L3 level with subchondral sclerosis and anterior spondylosis. Disc space narrowing at the L3-L4 and L4-L5 levels. Grade 2 anterior listhesis of L5 on S1 due to spondylolysis of the pars interarticularis of the L5 vertebrae. Facet joint osteoarthritis. RAD/Lumbar Spine 2 or 3 Views IMPRESSION: ADVANCED DEGENERATIVE CHANGES OF THE LUMBAR SPINE. Grade 2 anterior listhesis of L5 on S1 due to spondylolysis of the pars interarticularis of the L5 vertebrae. Reading Location: [id number] CC: Dr. Key Jasso MD ~ Supervisor Paper Testing: Signed [facility]04-30-2024 History of Present illness Narrative* Sadia Dickson MD - 12/15/2023 8:40 AM EDT Update December 15, 2023 Virtual visit Last note from ENT reviewed and he appears to be doing very well. Patient reports his sinuses feel good. Said he normally gets a sinus infection this time a year buthas not this year. Tolerating doxycycline without difficulty. Has about a month supply left. Been more than a year since we started therapy for actinomycoses. I told him to complete his current supply I will do a follow-up February 25 at 840. 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 Recently saw ENT andwe reviewed this note. Patient saw some swelling but per the ENT note much better. Had a CAT scan ordered by ENT in the last month of January that did not show any bony destruction. Excellent tolerance of doxycycline with no nausea vomiting diarrhea or rash. Feels well overall. No complaints. 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 Continues to follow with ENT. Will need at least a year of doxycycline. Will make sure he has refills and to follow-up January 13 8:40 AM documented in this [facility] Work Phone: 1([phone]) 902-483403-18-2024 History of Present illness Narrative* Natividad Rodriguez MD - 11/02/2023 9:45 AM EDT ENT Follow up Visit History Of Present Illness 72 yo man who presents for evaluation of pain and swelling in the jaw. He start noticing problems with swelling almost 2 years ago, but more recently has had leakage of food/water from his nose. He had a tooth extracted which didn't help. Had CT scans done. Saw dr. Amador and was referred to me. non smoker. on coumadin for blood clot in the leg. no history of cad. 11-25-22 post-op: doing well after debridement, PEG; tolerating PO with some nasal reflux, no pain; tolerating ABX 12-23-22 FU: had some drainage yesterday from the neck, no increased swelling/redness/pain; tolerating PO intake 01-05-23 FU: s/p debridement of bone, mucosal flap with dr. amador last week. kept npo 02-23-23 FU: minimal drainage from nose, no regurgitation, tolerating PO without issue, no pain 05-04-23 FU: feels some swelling over the gums, mild soreness. also notes a spot of clear fluid fromthe neck periodically 07-06-23 FU: no new complaints today, swelling has improved. Had a CT scan which was normal 11-02-23 FU: no new complaints Past Medical History He has no past medical history on file. Surgical History He has no past surgical history on file. Social History He reports that he has never smoked. He has never used smokeless tobacco. No history on file for alcohol use and drug use. Family History No family history on file. Allergies Patient has no known allergies. Physical Exam: nad alert cayden eomi NCAT nasal cavity clear ocop - healed scar band from prior muscle flap, no obvious inflammation or exposed bone Flexible nasal endoscopy Indications: sinusitis Anesthetized nasal cavity with afrin and lidocaine : Scope was advanced through the left nostril: No masses or lesions seen in the nasal cavity, nasopharynx left maxillary sinus patent, no mucous or purulence nasal cavity widely patent Pt tolerated well. Last Recorded Vitals Temperature 35.9 C (96.7 F), weight 137 kg (302 lb). CT maxillofacial bones wo IV contrast Result Date: 06/19/2023 Interpreted By: Christopher Oconnell, and Joaquin Green STUDY: CT FACIAL BONES WO IV CONTRAST 06/19/2023 8:30 am INDICATION: Signs/Symptoms:osteomyelitis of maxilla COMPARISON: None. ACCESSION NUMBER(S): [id number] ORDERING CLINICIAN: NATIVIDAD RODRIGUEZ TECHNIQUE: Thin cut axial CT images through the facial bones were obtained and reconstructed in the coronal and sagittal plane. FINDINGS: Orbits: The bony orbits are intact. The orbital contents are unremarkable. Facial Bones: Status post maxillectomy including the anterior maxilla, left alveolar ridge, and hard palate extending to the anterior aspects of the bilateral pterygoid plates, partially including the left pterygoid plate. Teeth # 6, # 7 and #8 have been removed in the interval since the previous exam. The previously demonstrated packing material or cement within the left maxillary sinus, alveolar ridge and palate have been removed and a fat containing myocutaneous flap has been placed in the left alveolar ridge and anterior oral cavity. There is partial absence of the right hard palate including a portion of the left alveolar recess. There is decreased polypoid soft tissue thickening and fluid in the right maxillary sinus. Mandible/Temporomandibular Joints: Visualized portions of mandible and bilateral temporomandibular joints are intact. Paranasal Sinuses/Mastoids: Interval scratch the bilateral partial ethmoidectomy. A 3 mmexophytic osseous lesion is noted within the right mastoid air cells, likely an osteoma. Improved now trace left mastoid effusion. Soft tissues: No fluid collection. Other: Diffuse prominence of the partially visualized ventricles and sulci. Status post maxillectomy with myocutaneous flap reconstruction. No evidence of osteomyelitis. Improved now trace left mastoid effusion. I personally reviewed the images/study and I agree with the findings as stated by Peter Nuñez MD. This study was interpreted at [place], [place]. MACRO: None Signed by: Christopher Oconnell 06/19/2023 10:11 AM Dictation workstation: [id number] Assessment and Plan 72 yo man with a destructive process involving much of the left maxilla s/p maxillectomy, recon with serratus/rib free flap ct face w/o contrast -: no obvious bony necrosis, maxillary sinus patent -well healed -pt to reach out to Dr. Dickson to discuss when to stop doxy -RTC in 1 year [facility]ividad Rodriguez MD [facility] Phone: 1(781) 948-198101-15-2024 History of Present illness Narrative* Uriah Amador MD - 08/31/2023 9:30 AM EST POV s/p 12/31/22 maxillectomy, recon with serratus free flap 72 yo man who presents for FUV. 06/19/23 CT Scan was normal. 07/06/23: Dr. Rodriguez FUV: no new complaints today, swelling has improved. 08/31/23: Presents for FUV today; doing well, swelling improved. No issues. -healing well -RTC in 4-6 months [facility] Work Phone: 1(158) 191-303711-20-2023 History of Present illness Narrative* Natividad Rodriguez MD - 07/06/2023 8:45 AM EST ENT Follow up Visit History Of Present Illness 72 yo man who presents for evaluation of pain and swelling in the jaw. He start noticing problems with swelling almost 2 years ago, but more recently has had leakage of food/water from his nose. He had a tooth extracted which didn't help. Had CT scans done. Saw dr. Amador and was referred to me. non smoker. on coumadin for blood clot in the leg. no history of cad. 11-25-22 post-op: doing well after debridement, PEG; tolerating PO with some nasal reflux, no pain; tolerating ABX 12-23-22 FU: had some drainage yesterday from the neck, no increased swelling/redness/pain; tolerating PO intake 01-05-23 FU: s/p debridement of bone, mucosal flap with dr. amador last week. kept npo 02-23-23 FU: minimal drainage from nose, no regurgitation, tolerating PO without issue, no pain 05-04-23 FU: feels some swelling over the gums, mild soreness. also notes a spot of clear fluid fromthe neck periodically 07-06-23 FU: no new complaints today, swelling has improved. Had a t scan which was normal Past Medical History He has no past medical history on file. Surgical History He has no past surgical history on file. Social History He reports that he has never smoked. He has never used smokeless tobacco. No history on file for alcohol use and drug use. Family History No family history on file. Allergies Patient has no known allergies. Physical Exam: nad alert cayden eomi NCAT nasal cavity clear ocop - healed scar band from prior muscle flap, no obvious inflammation or exposed bone Flexible nasal endoscopy Indications: sinusitis Anesthetized nasal cavity with afrin and lidocaine : Scope was advanced through the left nostril: No masses or lesions seen in the nasal cavity, nasopharynx left maxillary sinus patent, no mucous or purulence nasal cavity widely patent Pt tolerated well. Last Recorded Vitals Temperature 36.1 C (96.9 F), height 1.854 m (6' 1), weight 127 kg (279 lb 3.2 oz). CT maxillofacial bones wo IV contrast Result Date: 06/19/2023 Interpreted By: Christopher Oconnell, and Joaquin Green STUDY: CT FACIAL BONES WO IV CONTRAST 06/19/2023 8:30 am INDICATION: Signs/Symptoms:osteomyelitis of maxilla COMPARISON: None. ACCESSION NUMBER(S): [id number] ORDERING CLINICIAN: NATIVIDAD RODRIGUEZ TECHNIQUE: Thin cut axial CT images through the facial bones were obtained and reconstructed in the coronal and sagittal plane. FINDINGS: Orbits: The bony orbits are intact. The orbital contents are unremarkable. Facial Bones: Status post maxillectomy including the anterior maxilla, left alveolar ridge, and hard palate extending to the anterior aspects of the bilateral pterygoid plates, partially including the left pterygoid plate. Teeth # 6, # 7 and #8 have been removed in the interval since the previous exam. The previously demonstrated packing material or cement within the left maxillary sinus, alveolar ridge and palate have been removed and a fat containing myocutaneous flap has been placed in the left alveolar ridge and anterior oral cavity. There is partial absence of the right hard palate including a portion of the left alveolar recess. There is decreased polypoid soft tissue thickening and fluid in the right maxillary sinus. Mandible/Temporomandibular Joints: Visualized portions of mandible and bilateral temporomandibular joints are intact. Paranasal Sinuses/Mastoids: Interval scratch the bilateral partial ethmoidectomy. A 3 mmexophytic osseous lesion is noted within the right mastoid air cells, likely an osteoma. Improved now trace left mastoid effusion. Soft tissues: No fluid collection. Other: Diffuse prominence of the partially visualized ventricles and sulci. Status post maxillectomy with myocutaneous flap reconstruction. No evidence of osteomyelitis. Improved now trace left mastoid effusion. I personally reviewed the images/study and I agree with the findings as stated by Peter Nuñez MD. This study was interpreted at [place], [place]. MACRO: None Signed by: Christopher Oconnell 06/19/2023 10:11 AM Dictation workstation: [id number] Assessment and Plan 72 yo man with a destructive process involving much of the left maxilla s/p maxillectomy, recon with serratus/rib free flap -reviewed ct face w/o contrast: no obvious bony necrosis, maxillary sinus patent -healing well -RTC in 4-6 months Natividad Rodriguez MD documented in this [facility] Work Phone: 1(125) 220-436009-18-2023 NoteOrders Blood Urea Nitrogen, Serum; Status:In Progress - Specimen/Data Collected; Done: [id number] Creatinine, Serum; Status:In Progress - Specimen/Data Collected; Done: [id number] CT Face with/without Contrast; Status:Hold For - Scheduling,Retrospective By Protocol Authorization; Requested for:[id number]; Patient taking Metformin or Derivatives? : No Radiologist to Determine Optimal Study : Y What are the patient's signs and symptoms? : infection Provider Impressions 72 yo man with a destructive process involving much of the left maxilla CT - mottled appearance throughout the maxilla involving nearly all of the premaxilla bl, and posteriorly into the ptyergoid plates biopsy - neg for malignancy cultures - mixed infection, beta-lactamase+ with dania s/p recon with serratus/rib free flap -well healed -will get a CT-face w/ contrast, i did not see anything concerning today on exam Chief Complaint follow up History of Present Qbaauli20 yo man who presents for evaluation of pain and swelling in the jaw. [place] noticing problems with swelling almost 2 years ago, but more recently has had leakage of food/water from his nose. He had a tooth extracted which didn't help. Had CT scans done. Saw dr. Kevin was referred to me. non smoker. on coumadin for blood clot in the leg. no history of cad. 11-25-22 post-op: doing well after debridement, PEG; tolerating PO with some nasal reflux, no pain; tolerating ABX 12-23-22 FU: had some drainage yesterday from the neck, no increased swelling/redness/pain; tolerating PO intake 01-05-23 FU: s/p debridement of bone, mucosal flap with dr. amador last week. kept npo 02-23-23 FU: minimal drainage from nose, no regurgitation, tolerating PO without issue, no pain 05-04-23 FU: feels some swelling over the gums, mild soreness. 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 EXPECTORATE AFTER RINSING, DO NOT SWALLOW Chlorhexidine Gluconate 0.12 % Mouth/Throat SolutionRINSE MOUTH WITH 15ML (1 CAPFUL) FOR 30 SECONDSAM AND PM AFTER TOOTHBRUSHING. EXPECTORATE AFTER RINSING, DO NOT SWALLOW Cinnamon 500 MG TABS Coenzyme Q-10 100 MG Oral Capsule Doxycycline Hyclate 100 MG Oral CapsuleTake 1 capsule twice daily Fluticasone Propionate 50 MCG/ACT Nasal SuspensionUSE 2 SPRAYS IN EACH NOSTRIL ONCE DAILY Furosemide 20 MG Oral Tablet Glimepiride 4 MG Oral Tablet hydrALAZINE HCl - 50 MG Oral Tablet Jardiance 25 MG Oral Tablet Losartan Potassium 100 MG Oral Tablet Magnesium Oxide 400 MG Oral Tablet Multi Vitamin Mens TABS Pioglitazone HCl - 30 MG Oral Tablet Psyllium Husk 100 % POWD Red Yeast Rice 600 MG Oral Capsule Selenium 200 MCG Oral Tablet Spironolactone 50 MG Oral Tablet Vitamin C 1000 MG Oral Tablet Vitamin D 1000 UNIT TABS Warfarin Sodium 1 MG Oral Tablet Warfarin Sodium 5 MG Oral Tablet Zinc TABS Vitals Vital Signs Recorded: [id number] 11:10AM Height6 ft 1 in Fcuzzs493 lb BMI Znmexsuixx61.62 kg/m2 BSA Calculated2.44 Tobacco Useb) No PHQ-2 #1. Over the last 2 weeks have you felt down, depressed or hopeless? (If yes, answer PHQ-9 below)No PHQ-2 #2. Over the last 2 weeks have you felt little interest or pleasure in doing things? (If yes,answer PHQ-9 below)No Falls Screening (Age 18+)a) No falls within the last year Physical Exam nad alert cayden eomi NCAT nasal cavity clear ocop - healed scar band from prior muscle flap, no obvious inflammation or exposed bone clear saliva from left parotid duct neck incision healing well, could not express any fluid Procedure Flexible nasal endoscopy Indications: sinusitis Anesthetized nasal cavity with afrin and lidocaine : Scope was advanced through the left nostril: No masses or lesions seen in the nasal cavity, nasopharynx left maxillary sinus with scarred flap, no obvious purulence nasal cavity widely patent, small area of pooled mucous inferiorly Pt tolerated well. 'Scores and Scales' Signatures Electronically signed by : Natividad Rodriguez MD; May 04 2023 12:34PM EST (Author) [id number] History of Present illness Narrative* Update March 31, 2023. * Recent notes and labs reviewed. ENT note reviewed. Patient reports he is doing well. Excellent tolerance of doxycycline. No sunburn no nausea vomiting or GI distress. Feels like his face and sinuses are getting better. * from 01/02 * Prior to seeing the patient we reviewed all records going back to October including notes imaging path reports labs * First outpatient follow-up for gentleman who we have seen in the hospital and diagnosed with chronic actinomycoses cervical facial infection. Patient states that he started having tooth problems in 2018 and things seem to get worse when he had COVID in 2020. He eventually presented with osteomyelitis and fistula between his sinuses and mouth and saw a number of outside providers and finally was referred to [facility]-- in October underwent surgery and debridement with the path not showing any malignancy but with organisms consistent with actinomycoses. In October he was treated with fluconazole and ampicillin-sulbactam was readmitted in November when we saw him in hospital. At that time we recommended continued ampicillin-sulbactam with a plan to switch to chronic oral therapy for actinomycoses. His ampicillin-sulbactam was stopped a bit early as he developed some mild acute kidney injury which we thought was likely to be a drug reaction. We started the doxycycline on December 19; except for some mild sunburn he is doing well with doxycycline. He feels better and feels like his mouth and face is doing better. No fevers chills nausea vomiting diarrhea. [facility] [employer] Work Phone: 1(295) 742-417208-15-2023 Chief complaint Narrative - Reported* An interactive audio and video telecommunication system which permits real time communications between the patient (at the originating site) and provider (at the distant site) was utilized to providethis telehealth service. * Verbal consent was requested and obtained from BRENDON DAVID on this date, 03/31/2023 10:20 AM , for a telehealth visit. * Patient presents here today for a hospital follow up visit. -Infectious Disease-[facility] [employer] Work Phone: 1(165) 268-526905-17-2023 [facility]05-17-2023 Miscellaneous Notes* Op Note - Anthony De Guzman MD - 12/31/2022 3:00 PM EDT PROCEDURE DETAILS Preoperative Diagnosis: Osteomyelitis of the maxilla Postoperative Diagnosis: Osteomyelitis of the maxilla Surgeon: Timo Resident/Fellow/Other Business Office Representative: Olinde. De Guzman Procedure: 1. Left palate and premaxilla bone excision, contouring 2. Left mucosal rotation advancement flap Anesthesia: geta Estimated Blood Loss: 30cc Findings: 1. Previous serratus rib graft debrided to healthy bleeding bone. Specimens(s) Collected: no, Complications: none Patient Returned To/Condition: pacu/stable Operative Report: Operative Indications: Patient is a 72-year-old male with osteomyelitis of the maxilla who underwent a free tissue transfer last month. He was seen in the office and it was noted that there was exposed, dislocated, bone from the previous microvascular reconstruction. After discussing all risks, benefits, indications and a lternatives to the planned procedures patient signed written informed consent to proceed. Procedure in Detail: Patient was seen and evaluated in the pre-operative area. Patient was taken back to the operating room by the anesthesia team. General anesthesia was induced and patient was orotracheally intubated without issue. Patient was then turned 90 degrees towards the ENT team. Appropriate time-out was performed by Dr. Amador . Patient was prepped and draped in the usual sterile fashion. 1% lidocaine with epinephrine was injected around the site of the previous graft. Combination of forceps and pineapple kati was used to drill and the excise portions of the dislocated and exposed rib graft. This was done under continuous irrigation. The bone was drilled down until healthy viability and appropriate palate contour was achieved. We then designed a laterally pedicled mucosal flap with rotation transposition along the undersurface of the upper lip to address a defect of the premaxilla measuring 1 x 3 cm. Using a 15 bladethe mucosa was incised and the rotational flap was elevated deep to the submucosal glands to maintain vascularity. This flap carried into the vestibular mucosa involving the premaxillary labial sulcus. Hemostasis was achieved with bipolar cautery. The flap was then transposed posterolateral to address the primary defect and then closed with 3-0 Vicryl suture in an interrupted fashion. The anterior vestibule defect was then addressed. Multiple vicryl sutured were placed to re-establish the anterior vestibule adjacent to the primary defect, these were placed in a parachute fashion. The wound was copiously irrigated. Adequate coverage of the premaxillary defect was achieved along with vestibuloplasty. This concluded our procedure. The patient was turned over to the anesthesia team, extubated, and transported to the recovery room in stable condition. Dr. Amador was present for all critical aspectsof the procedure. Attestation: Note Completion: Attending Attestation I was present for the entire procedure I am a: Resident/Fellow Electronic Signatures: Anthony De Guzman (Resident)) (Signed 31-Dec-2022 15:07) Authored: Post-Operative Note, Chart Review, Note Completion Uriah Amador) (Signed 01-Jan-2023 10:42) Authored: Post-Operative Note, Chart Review, Note Completion Co-Signer: Post-Operative Note, Chart Review, Note Completion Last Updated: 01-Jan-2023 10:42 by Uriah Amador) documented in this [facility] Work Phone: 1(592) 296-167005-17-2023 Note* Op Note - Anthony De Guzman MD - 12/31/2022 3:00 PM EDT PROCEDURE DETAILS Preoperative Diagnosis: Osteomyelitis of the maxilla Postoperative Diagnosis: Osteomyelitis of the maxilla Surgeon: Timo Resident/Fellow/Other Business Office Representative: Olinde. De Guzman Procedure: 1. Left palate and premaxilla bone excision, contouring 2. Left mucosal rotation advancement flap Anesthesia: geta Estimated Blood Loss: 30cc Findings: 1. Previous serratus rib graft debrided to healthy bleeding bone. Specimens(s) Collected: no, Complications: none Patient Returned To/Condition: pacu/stable Operative Report: Operative Indications: Patient is a 72-year-old male with osteomyelitis of the maxilla who underwent a free tissue transfer last month. He was seen in the office and it was noted that there was exposed, dislocated, bone from the previous microvascular reconstruction. After discussing all risks, benefits, indications and a lternatives to the planned procedures patient signed written informed consent to proceed. Procedure in Detail: Patient was seen and evaluated in the pre-operative area. Patient was taken back to the operating room by the anesthesia team. General anesthesia was induced and patient was orotracheally intubated without issue. Patient was then turned 90 degrees towards the ENT team. Appropriate time-out was performed by Dr. Amador . Patient was prepped and draped in the usual sterile fashion. 1% lidocaine with epinephrine was injected around the site of the previous graft. Combination of forceps and pineapple kati was used to drill and the excise portions of the dislocated and exposed rib graft. This was done under continuous irrigation. The bone was drilled down until healthy viability and appropriate palate contour was achieved. We then designed a laterally pedicled mucosal flap with rotation transposition along the undersurface of the upper lip to address a defect of the premaxilla measuring 1 x 3 cm. Using a 15 bladethe mucosa was incised and the rotational flap was elevated deep to the submucosal glands to maintain vascularity. This flap carried into the vestibular mucosa involving the premaxillary labial sulcus. Hemostasis was achieved with bipolar cautery. The flap was then transposed posterolateral to address the primary defect and then closed with 3-0 Vicryl suture in an interrupted fashion. The anterior vestibule defect was then addressed. Multiple vicryl sutured were placed to re-establish the anterior vestibule adjacent to the primary defect, these were placed in a parachute fashion. The wound was copiously irrigated. Adequate coverage of the premaxillary defect was achieved along with vestibuloplasty. This concluded our procedure. The patient was turned over to the anesthesia team, extubated, and transported to the recovery room in stable condition. Dr. Amador was present for all critical aspectsof the procedure. Attestation: Note Completion: Attending Attestation I was present for the entire procedure I am a: Resident/Fellow Electronic Signatures: Anthony De Guzman (Resident)) (Signed 31-Dec-2022 15:07) Authored: Post-Operative Note, Chart Review, Note Completion Uriah Amador) (Signed 01-Jan-2023 10:42) Authored: Post-Operative Note, Chart Review, Note Completion Co-Signer: Post-Operative Note, Chart Review, Note Completion Last Updated: 01-Jan-2023 10:42 by Uriah Amador) [facility] Work Phone: 1(585) 450-551405-17-2023 [facility]05-17-2023 History and physical note* Anthony De Guzman MD - 12/31/2022 12:10 PM EDT History & Physical Reviewed: I have reviewed the History and Physical dated: 29-Dec-2022 History and Physical reviewed and relevant findings noted. Patient examined to review pertinent physical findings.: No significant changes Home Medications Reviewed: no changes noted Allergies Reviewed: no changes noted ERAS (Enhanced Recovery After Surgery): ERAS Patient: no Consent: COVID-19 Consent: COVID-19 Risk Consent Surgeon has reviewed juares risks related to the risk of gilma COVID-19 and if they contract COVID-19 what the risks are. Attestation: Note Completion: I am a: Resident/Fellow Attending Attestation I saw and evaluated the patient. I personally obtained the juares and critical portions of the history and physical exam or was physically present for juares and critical portions performed by the resident/fellow. I reviewed the resident/fellow?s documentation and discussed the patient with the resident/fellow. I agree with the resident/fellow?s medical decision making as documented in the note. I personally evaluated the patient on 31-Dec-2022 Electronic Signatures: Anthony De Guzman (Resident)) (Signed 31-Dec-2022 12:10) Authored: History & Physical Reviewed, ERAS, Consent, Note Completion Uriah Amador) (Signed 01-Jan-2023 10:33) Authored: Note Completion Co-Signer: History & Physical Reviewed, ERAS, Consent, Note Completion Last Updated: 01-Jan-2023 10:33 by Uriah Amador) [facility] Work Phone: 1(543) 738-239105-17-2023 History and physical note* Anthony De Guzman MD - 12/31/2022 12:10 PM EDT History & Physical Reviewed: I have reviewed the History and Physical dated: 29-Dec-2022 History and Physical reviewed and relevant findings noted. Patient examined to review pertinent physical findings.: No significant changes Home Medications Reviewed: no changes noted Allergies Reviewed: no changes noted ERAS (Enhanced Recovery After Surgery): ERAS Patient: no Consent: COVID-19 Consent: COVID-19 Risk Consent Surgeon has reviewed juares risks related to the risk of gilma COVID-19 and if they contract COVID-19 what the risks are. Attestation: Note Completion: I am a: Resident/Fellow Attending Attestation I saw and evaluated the patient. I personally obtained the juares and critical portions of the history and physical exam or was physically present for juares and critical portions performed by the resident/fellow. I reviewed the resident/fellow?s documentation and discussed the patient with the resident/fellow. I agree with the resident/fellow?s medical decision making as documented in the note. I personally evaluated the patient on 31-Dec-2022 Electronic Signatures: Anthony De Guzman (Resident)) (Signed 31-Dec-2022 12:10) Authored: History & Physical Reviewed, ERAS, Consent, Note Completion Uriah Amador) (Signed 01-Jan-2023 10:33) Authored: Note Completion Co-Signer: History & Physical Reviewed, ERAS, Consent, Note Completion Last Updated: 01-Jan-2023 10:33 by Uriah Amador) [facility] Phone: 1(882) 342-241304-26-2023 [facility]04-21-2023 [facility]04-20-2023 [facility] 12-03-2022 [facility]04-19-2023 [facility]04-19-2023 Reason for referral (narrative)* Reason for Referral: OR on 12/03 and is s/p FESS, R infrastructure maxillectomy, dental extractions,L neck exploration for vessels, and reconstruction with L Serratus free flap with rib graft by Dr. Rodriguez and Dr. Amador. Patient was taking back to the operating on POD #1 due to the flap showing signsof vascular compromise. In the OR, he underwent a Wash out, Flap debridement of muscle and bone until viable tissue was seen. The flap was then re-inserted on 12/[address] Amador [facility]04[facility]19[facility] Benitez [facility] December 01, 2022 4:58am Note Date/Time December 01, 2022 2:1 4am [facility] Medical Records Department [address] [place] [address] Emergency Department Summary 12/01/22 MR#: [id number] Acct: [id number] Name: BRENDON DAVID Rep #:[id number] : 1950 72 From: Doron Benitez MD PCP: Dr. Key Jasso MD Status:REG ER Location: ED HPI History of Present Illness Chief Complaint: Other, Pain/Inj Informant: patient Narrative Narrative: Patient presents with bleeding from oral maxillofacial surgery area. Patient had surgery in the left floor of the sinus and roof of the mouth on 13 November. There is an opening there. He is due to have a repeat surgery in 3 days. He has an appointment this morning and about 8 hours. He stopped his Coumadin which he is on for what sounds like peripheral vascular disease. He istook his last dose evening. Because he had stopped the Coumadin they state he could use some Flonase spray if he was congested. He use this and thena few hours later he had some bleeding. He states it seemed to have stopped right now. He states it was mostly bleeding from the mouth but some came out nose. No other areas of bleeding. He does not feel lightheaded or weak. His surgery was done up at [facility] in [place]. [facility] Medical History Benign essential hypertension COVID-19 CPAP (continuous positive airway pressure) dependence Diabetes DVT (deep venous thrombosis) DVT (deep venous thrombosis) HLD (hyperlipidemia) Hypertension Non-smoker Non-ST elevation FL (NSTEMI) Sleep apnea Type II diabetes mellitus Wears glasses Home Medications acarbose 100 mg tablet (Precose) 100 mg PO BID 11/12/16 [History Last Taken 05/20/19] atenolol 50 mg tablet 50 mg PO BID 11/12/16 [History Last Taken 05/20/19] coenzyme Q10 100 mg capsule (Co Q-10) 100 mg PO DAILY 11/12/16 [History Last Taken 05/20/19] dulaglutide 1.5 mg/0.5 mL subcutaneous pen injector (Trulicity) 1 ml SQ WE 11/12/16 [History Last Taken 05/18/19] losartan 100 mg tablet 100 mg PO QHS 11/12/16 [History Last Taken 05/19/19] magnesium oxide 400 mg PO DAILY 11/12/16 [History Last Taken 05/20/19] cinnamon bark 500 mg capsule 500 mg PO BID 05/20/19 [History Last Taken 05/20/19] furosemide 20 mg tablet 20 mg PO DAILY 05/20/19 [History Last Taken 05/20/19] glimepiride 4 mg tablet 4 mg PO BID dm 05/20/19 [History Last Taken 05/20/19] selenium 200 mcg tablet 200 mcg PO DAILY 05/20/19 [History Last Taken 05/20/19] spironolactone 50 mg tablet 50 mg PO DAILY 05/20/19 [History Last Taken 05/20/19] warfarin 5 mg tablet See Rx Instructions .Route .COMPLEX 05/20/19 [History Last Taken 05/19/19] ascorbic acid (vitamin C) 1,000 mg tablet (Vitamin C) 1 g PO DAILY 05/08/21 [History Last Taken Unknown] cholecalciferol (vitamin D3) 25 mcg (1,000 unit) capsule (Vitamin D3) 50 mcg PO DAILY 05/08/21 [History Last Taken Unknown] empagliflozin 25 mg tablet (Jardiance) 25 mg PO DAILY 05/08/21 [History Last Taken Unknown] icosapent ethyl 1 gram capsule (Vascepa) 2 g PO BID 05/08/21 [History Last Taken Unknown] multivitamin 1 tab PO DAILY 05/08/21 [History Last Taken Unknown] pioglitazone 30 mg tablet 15 mg PO DAILY 05/08/21 [History Last Taken Unknown] zinc 50 mg tablet 50 mg PO DAILY 05/08/21 [History Last Taken Unknown] atorvastatin 20 mg tablet 20 mg PO QHS #30 tabs 05/15/21 [Rx Last Taken Unknown] Allergy/AdvReac Type Severity Reaction Status Date / Time No Known Allergies Allergy Verified 05/27/22 06:55 Family History Father Heart disease Mother CVA (cerebral vascular accident) Surgical History History of back surgery History of surgical procedure on mouth Hx of tonsillectomy Social History Smoking Status: Never smoker substance use type: does not use ROS ROS ED Constitutional Constitutional ED: Denies chills or fever(s) Eyes Eyes: Denies change in vision ENT ENT ED: Reports other Details: See history of present illness. Cardiovascular Cardiovascular: Denies chest pain Respiratory/Chest Respiratory/Chest: Denies cough Gastrointestinal Gastrointestinal: Denies nausea Genitourinary Genitourinary ED: Denies hematuria Musculoskeletal Musculoskeletal: Denies myalgias Integumentary Denies rash Neurologic Neurologic: Denies paresthesias or weakness Hematologic/Lymphatic Hematologic/Lymphatic: Reports easy bleeding and easy bruising Allergic/Immunologic Allergic/Immunologic ED: Denies urticaria EXAM Physical Exam Narrative Exam Narrative: Patient is awake alert sitting comfortably in bed. He is a little bit of dried blood around the left nare and a little bit around the corner of the mouth on the left. Nontoxic carries on normal conversation. HEENT does show dried blood in the left naris but only a small amount. There isan opening when I look in his mouth and the palate up above on the left. He haswhat appears to be a fresh clot in this area. No active bleeding at this time. No bad odor or sign of infection. No external changes. Neck is supple Lungs are clear. Heart does sound regular. Abdomen is obese but benign Extremities show a few contusions on the arm consistent with being on Coumadin but no acute abnormalities. Neurologically he is awake alert and appropriate. Const Vital Signs: 12/01/22 00:12 Temperature 97.4 F L Temperature Source Temporal Pulse Rate 66 Respiratory Rate 20 H Blood Pressure 134/71 H Blood Pressure Mean 92 Pulse Ox 95 Oxygen Delivery Method Room Air MDM MDM MDM Narrative Medical decision making narrative: Patient CBC does show some mildly low hemoglobin at 12.8. This is lower than the prior ones that I have on record but I do not have any postoperative ones tocompare to. His INR was quite high at 5.9 especially since he has not had his Coumadin since night. Electrolytes showed no marked abnormalities. Creatinine is up a bit at 1.78. But this is slightly lower than my most recent. Liver function test showed no marked abnormalities. Patient's glucose was mildly up at 191. With his hemoglobin, clot, surgery and significantly elevated INR, I do think weneed to reverse his Coumadin. This is especially in light of the fact that he is set to have surgery in a little over 48 hours now. He has an appointment to be seen even sooner. He was told that they might even do surgery today when they saw him but he is not sure of that. We do have Kcentra here. I have put in orders. Patient will be observed while we get this in and watch for further bleeding. If he continues to do well, we will get him up to see his physician in the morning. We did have Kcentra in the is being infused. He states he still had felt some ooze but that stopped. He states is not bleeding at all now. Of note, they do flush his PICC line in his left arm with heparin. But explained that this will not raise his INR. It might contribute to bleeding but only a small amount. They have been doing that since 13 November. I think his bleeding was a combination of significantly elevated INR in the face of surgery and using Flonase. Patient would like to go to see his doctor this morning. I explained I would like to finish the infusion and get him up and walking around to make sure he has no further problem. On exam he has some clot formation but there isno sign of any fresh blood anywhere. Patient walked around the department with no difficulties. He has had no repeatbleeding. Since he has been given the Kcentra and vitamin K his symptoms are resolved. He is comfortable following up with his physician as he has an appointment at about 4-1/2 hours. Lab Data Attestation: I reviewed the patient's lab results. Labs: Laboratory Results - last 24 hr 12/01/22 12/01/22 12/01/22 00:45 00:45 00:45 WBC 7.5 RBC 4.06 L Hgb 12.8 L Hct 40.4 MCV 99.5 H MCH 31.5 MCHC 31.7 L RDW Std Deviation 54.3 H RDW Coeff of Geovanna 14.9 H Plt Count 300 MPV 9.4 Immature Gran % (Auto) 0.700 Neut % (Auto) 62.0 Lymph % (Auto) 24.7 Phillips % (Auto) 8.7 Eos % (Auto) 3.1 Baso % (Auto) 0.8 Absolute Neuts (auto) 4.6 Absolute Lymphs (auto) 1.84 Nucleated RBC % 0 PT 52.9 H INR 5.9 H* Sodium 138 Potassium 3.7 Chloride 108 H Carbon Dioxide 25.0 Anion Gap 5 BUN 30 H Creatinine 1.78 H Estim Creat Clear Calc 43.64 Est GFR (MDRD) Af Amer 49 L Est GFR (MDRD) Non-Af 40 L BUN/Creatinine Ratio 16.9 Glucose 191 H Calcium 8.9 Total Bilirubin 0.20 AST 20 ALT 24 Alkaline Phosphatase 63 Total Protein 6.8 Albumin 2.9 L Globulin 3.9 Albumin/Globulin Ratio 0.7 L Discharge Plan Triage Chief Complaint: Other, Pain/Inj ED Provider: Doron Benitez Dx/Rx/DC Orders Clinical Impression: Postoperative wound hemorrhage, Warfarin-induced coagulopathy Instructions: ED Post Op Wound Check, Bleeding Prescriptions: No Action acarbose [Precose] 100 MG tablet 100 mg PO BID Label Comments: 1/2 TO 1 TABLET BEFORE EACH MEAL TO REDUCE SUGAR ABSORPTION losartan 100 MG tablet 100 mg PO QHS atenolol 50 MG tablet 50 mg PO BID coenzyme Q10 [Co Q-10] 100 MG capsule 100 mg PO DAILY Trulicity 1.5 MG/0.5 ML pen injector 1 ml SQ WE magnesium oxide 400 MG tablet 400 mg PO DAILY selenium 200 MCG tablet 200 mcg PO DAILY glimepiride 4 MG tablet 4 mg PO BID Label Comments: Take 1 (one) Tablet twice daily (if low sugars in AM take 1/2 dose Gerson) if AM sugars < 120 in AM then change back to 2mg tabs} warfarin 5 MG tablet See Rx Instructions .ROUTE .COMPLEX Rx Instructions: 5- SUMOWEFR furosemide 20 MG tablet 20 mg PO DAILY spironolactone 50 MG tablet 50 mg PO DAILY cinnamon bark 500 MG capsule 500 mg PO BID multivitamin Tablet 1 tab PO DAILY ascorbic acid (vitamin C) [Vitamin C] 1,000 mg Tablet 1 g PO DAILY zinc 50 mg Tablet 50 mg PO DAILY pioglitazone 30 mg tablet 15 mg PO DAILY cholecalciferol (vitamin D3) [Vitamin D3] 25 mcg (1,000 unit) Capsule 50 mcg PO DAILY icosapent ethyl [Vascepa] 1 gram capsule 2 g PO BID Label Comments: TAKE 2 CAPSULES TWICE DAILY at breakfast and supper Jardiance 25 mg tablet 25 mg PO DAILY Label Comments: TAKE 1 TABLET BY MOUTH EVERY DAY atorvastatin 20 mg Tablet 20 mg PO QHS Qty: 30 0RF Primary Care Provider: Key Jasso Referrals: Key Jasso MD [Primary Care Provider] - As Needed Activity Restrictions/Additional Instructions: Follow-up with your physician at [facility] this morning as scheduled. Disposition Disposition: Home, Self Care What to do if you have Problems For any increased pain, shortness of breath, bleeding, nausea or vomiting, chestpain, or any unexpected problems, contact your Primary Care Provider. Call [facility] ([phone]) or report to the closest Emergency Room. Call 911 if necessary. 12/01/22 0458 <Electronically signed by Doron Benitez MD> Cosigner Signature (if applicable): CC: Dr. Key Jasso MD ~ Signed [facility] Work Phone: 1(424) 312-930204-04-2023 [facility]03-31-2023 [facility]03-30-2023 Reason for referral (narrative)* Reason for Referral: s/p Maxilla debridement, dental extraction #10-14, Right maxilla antrostomy and DHT on 11/13/2022 [facility]03-30-2023 [facility]03-30-2023 [facility]02-20-2023 History of Present illness Narrative* Natividad Rodriguez MD - 10/03/2024 10:15 AM EST ENT Follow up Visit History Of Present Illness 72 yo man who presents for evaluation of pain and swelling in the jaw. He start noticing problems with swelling almost 2 years ago, but more recently has had leakage of food/water from his nose. He had a tooth extracted which didn't help. Had CT scans done. Saw dr. Amador and was referred to me. non smoker. on coumadin for blood clot in the leg. no history of cad. 11-25-22 post-op: doing well after debridement, PEG; tolerating PO with some nasal reflux, no pain; tolerating ABX 12-23-22 FU: had some drainage yesterday from the neck, no increased swelling/redness/pain; tolerating PO intake 01-05-23 FU: s/p debridement of bone, mucosal flap with dr. amador last week. kept npo 02-23-23 FU: minimal drainage from nose, no regurgitation, tolerating PO without issue, no pain 05-04-23 FU: feels some swelling over the gums, mild soreness. also notes a spot of clear fluid fromthe neck periodically 07-06-23 FU: no new complaints today, swelling has improved. Had a CT scan which was normal 11-02-23 FU: no new complaints 10-03-24 FU: sometimes has off and on swelling of the cheek throughout the day. No pain. Tolerating PO Past Medical History He has no past medical history on file. Surgical History He has no past surgical history on file. Social History He reports that he has never smoked. He has never used smokeless tobacco. No history on file for alcohol use and drug use. Family History No family history on file. Allergies Patient has no known allergies. Physical Exam: nad alert cayden eomi NCAT nasal cavity clear ocop - healed scar band from prior muscle flap, no obvious inflammation or exposed bone Neck without masses or REBA, healed incision Last Recorded Vitals Height 1.854 m (6' 1), weight 122 kg (270 lb). CT maxillofacial bones wo IV contrast Result Date: 06/19/2023 Interpreted By: Christopher Oconnell, and Joaquin Green STUDY: CT FACIAL BONES WO IV CONTRAST 06/19/2023 8:30 am INDICATION: Signs/Symptoms:osteomyelitis of maxilla COMPARISON: None. ACCESSION NUMBER(S): [id number] ORDERING CLINICIAN: NATIVIDAD RODRIGUEZ TECHNIQUE: Thin cut axial CT images through the facial bones were obtained and reconstructed in the coronal and sagittal plane. FINDINGS: Orbits: The bony orbits are intact. The orbital contents are unremarkable. Facial Bones: Status post maxillectomy including the anterior maxilla, left alveolar ridge, and hard palate extending to the anterior aspects of the bilateral pterygoid plates, partially including the left pterygoid plate. Teeth # 6, # 7 and #8 have been removed in the interval since the previous exam. The previously demonstrated packing material or cement within the left maxillary sinus, alveolar ridge and palate have been removed and a fat containing myocutaneous flap has been placed in the left alveolar ridge and anterior oral cavity. There is partial absence of the right hard palate including a portion of the left alveolar recess. There is decreased polypoid soft tissue thickening and fluid in the right maxillary sinus. Mandible/Temporomandibular Joints: Visualized portions of mandible and bilateral temporomandibular joints are intact. Paranasal Sinuses/Mastoids: Interval scratch the bilateral partial ethmoidectomy. A 3 mmexophytic osseous lesion is noted within the right mastoid air cells, likely an osteoma. Improved now trace left mastoid effusion. Soft tissues: No fluid collection. Other: Diffuse prominence of the partially visualized ventricles and sulci. Status post maxillectomy with myocutaneous flap reconstruction. No evidence of osteomyelitis. Improved now trace left mastoid effusion. I personally reviewed the images/study and I agree with the findings as stated by Peter Nuñez MD. This study was interpreted at [place], [place]. MACRO: None Signed by: Christopher Oconnell 06/19/2023 10:11 AM Dictation workstation: [id number] Assessment and Plan 72 yo man with a destructive process involving much of the left maxilla s/p maxillectomy, recon with serratus/rib free flap ct face w/o contrast 07-09: no obvious bony necrosis, maxillary sinus patent -well healed -has stopped abx for 6 months and doing well -I will be leaving /[facility], he will just follow up as needed if any issues arise Natividad Rodriguez MD documented in this [facility] Work Phone: 1(967) 151-199110-06-2022 Hospital Discharge instructionsAmbulatory Orders* 12 Lead EKG [[facility]] Time Frame: 05/22/22, Location: None Selected Additional Instructions [facility] 1(191) 893-644909-20-2021 History of Present illness Narrative* 72 yo man who presents for evaluation of pain and swelling in the jaw. He start noticing problems with swelling almost 2 years ago, but more recently has had leakage of food/water from his nose. He had a tooth extracted which didn't help. Had CT scans done. Saw dr. Amador and was referred to me. non smoker. on coumadin for blood clot in the leg. no history of cad. * 11-25-22 post-op: doing well after debridement, PEG; tolerating PO with some nasal reflux, no pain; tolerating ABX * 12-23-22 FU: had some drainage yesterday from the neck, no increased swelling/redness/pain; tolerating PO intake * 01-05-23 FU: s/p debridement of bone, mucosal flap with dr. amador last week. kept npo * 02-23-23 FU: minimal drainage from nose, no regurgitation, tolerating PO without issue, no pain * 05-04-23 FU: feels some swelling over the gums, mild soreness. also notes a spot of clear fluid fromthe neck periodically [facility] Work Phone: 1([phone]) 678-819509-18-2021 History of Present illness Narrative* 72 yo man who presents for evaluation of pain and swelling in the jaw. He start noticing problems with swelling almost 2 years ago, but more recently has had leakage of food/water from his nose. He had a tooth extracted which didn't help. Had CT scans done. Saw dr. Amador and was referred to me. non smoker. on coumadin for blood clot in the leg. no history of cad. * 11-25-22 post-op: doing well after debridement, PEG; tolerating PO with some nasal reflux, no pain; tolerating ABX * 12-23-22 FU: had some drainage yesterday from the neck, no increased swelling/redness/pain; tolerating PO intake * 01-05-23 FU: s/p debridement of bone, mucosal flap with dr. amador last week. kept npo * 02-23-23 FU: minimal drainage from nose, no regurgitation, tolerating PO without issue, no pain * 05-04-23 FU: feels some swelling over the gums, mild soreness. also notes a spot of clear fluid fromthe neck periodically [facility]bxqz[facility]wluyx[facility] Work Phone: Chief complaint Narrative - ReportedBRENDON DAVID is being seen for a cardiovascular evaluation . For surgical clearance. XG-Yslhmann-[facility]zbzgvuSan[facility] [place] 3[address] Work Phone: Evaluation noteNo assessment information available [facility] Work Phone: Evaluation note* Diagnosis Onset Date Resolution Status Hypertrophy of inferior nasal turbinate acute Nasal congestion acute Nasal septal deviation acute Chronic pansinusitis chronic [facility] Work Phone: Evaluation note* Diagnosis Inflammatory conditions of jaws documented in this encounter [facility] Work Phone: Evaluation note* Diagnosis Osteomyelitis of maxilla- Primary documented in this encounter [facility] Work Phone: Evaluation note* Diagnosis Other symptoms and signs involving the musculoskeletal system Inflammatory conditions of jaws Old myocardial infarction Hyperlipidemia, unspecified Obstructive sleep apnea (adult) (pediatric) Chronic kidney disease, unspecified Hypertensive chronic kidney disease with stage 1 through stage 4 chronic kidney disease, or unspecified chronic kidney disease Gastro-esophageal reflux disease without esophagitis Type 2 diabetes mellitus with diabetic chronic kidney disease ([facility]) Obesity, unspecified Personal history of other venous thrombosis and embolism 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 Long-term (current) use of anticoagulants Unspecified osteoarthritis, unspecified site Spinal stenosis, lumbar region without neurogenic claudication Unspecified visual loss Chronic sinusitis, unspecified Personal history of COVID-19 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 termite inspector (current) use of oral hypoglycemic drugs documented in this encounter [facility] Work Phone: Evaluation note* Diagnosis Osteomyelitis of maxilla- Primary documented in this encounter [facility] Work Phone: Evaluation note* Diagnosis Actinomycosis, 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 documented in this encounter [facility] Work Phone: Evaluation note* Diagnosis Osteomyelitis of maxilla- Primary Actinomycosis, cervicofacial Cervicofacial actinomycotic infection documented in this encounter [facility] Work Phone: Evaluation note* Diagnosis Actinomycosis, cervicofacial- Primary Cervicofacial actinomycotic infection documented in this encounter [facility] Work Phone: Evaluation note* Diagnosis History of osteomyelitis- Primary Personal history of other musculoskeletal disorders documented in this encounter [facility] Work Phone: History of Present illness Narrative* Chief Complaint: left vanessa-antral fistula * Referring Provider: Dr. Key Jasso * Location: * Quality: * Severity: * Duration: * Timing: * Context: * Modifying factors: * Associated signs and symptoms: * Past, family, and social history obtained but not pertinent to current problem unless documented above. * All other systems have been reviewed and are negative for complaint unless documented above. * Physical Exam: * General: Well-developed and well-nourished in appearance. * Skin: No rashes or concerning lesions on the visible portions of the skin. * Eyes: Extraocular movements intact. Visual randall grossly normal. * Ears: Pinna are normal in shape and position. External canals are patent. * Nose: Dorsum is midline. Septum is midline and turbinates are normal on anterior * rhinoscopy. * Oral Cavity/Oropharynx: Dentition is intact. Mucous membranes moist. No masses or * lesions. Tonsils are symmetric and non-obstructive. * Neck: Midline trachea without masses or lesions. Thyroid is normal in size. * Lymphatics: No palpable cervical lymphadenopathy * Respiratory: No respiratory distress. Quiet breathing without stertor or stridor. * Cardiovascular: Regular rate and rhythm. Warm extremities with equal pulses. * Psych: Normal mood and affect. Judgement and insight appropriate. * Neuro: Alert and oriented. CN II-XII grossly intact. No focal deficits. * Musculoskeletal: Gait intact. Moves all extremities well without apparent deformities. [facility] 4100 Work Phone: History of Present illness Narrative* Chief Complaint: left vanessa-antral fistula * Referring Provider: Dr. Key Jasso and Dr. Wartmann * Location: left maxilla * Quality: fistula, necrotic bone, swelling * Severity: moderate * Duration: 1.5 years * Timing: all times * Context: progressive disease of the left maxilla, denies history of smoking * Modifying factors: none * Associated signs and symptoms: left facial pain, left facial numbness, fistula of the maxillary sinus * underwent previous septoplasty and ESS * fistula appeared within the last 2 months * no biopsies up to this point * dental extraction of the left molar with dry socket * now with progressive pain, bone exposure, non-healing wound, palate swelling * referred for work up * CT sinus wo contrast obtained outside, not available for review today * Past, family, and social history obtained but not pertinent to current problem unless documented above. * All other systems have been reviewed and are negative for complaint unless documented above. * Physical Exam: * General: Well-developed and well-nourished in appearance. * Skin: No rashes or concerning lesions on the visible portions of the skin. * Eyes: Extraocular movements intact. Visual randall grossly normal. * Ears: Pinna are normal in shape and position. External canals are patent. * Nose: Dorsum is midline * Oral Cavity/Oropharynx: left posterior maxilla oroantral fistula, necrotic bone alone left maxilla buccal ridge, raised mucosa of the right hard palate * Neck: Midline trachea without masses or lesions. Thyroid is normal in size. * Lymphatics: No palpable cervical lymphadenopathy * Respiratory: No respiratory distress. Quiet breathing without stertor or stridor. * Cardiovascular: Regular rate and rhythm. Warm extremities with equal pulses. * Psych: Normal mood and affect. Judgement and insight appropriate. * Neuro: Alert and oriented. CN II-XII grossly intact. No focal deficits. * 1% lido w epi injected at the maxilla and palate * multiple punch biopsies taken along hard palate and adjacent to fistula * portions of necrotic bone debrided and sent for culture with instrumentation * patient tolerated this well EO-Olhmpgcnwigjqp-Yznhb 395 Work Phone: History of Present illness Narrative* He is here for surgical clearance for ENT surgery. * He denies fatigue, chest pain, palpitations, shortness of breath, dyspnea on exertion, orthopnea, PND, frequent headaches, dizziness, falls. * No edema noted in BLE. * EKG was completed today at [facility]. * PMHx: HTN, GERD, DVT [facility]jiy[facility] [place] [address] Work Phone: History of Present illness Narrative* IH 12.02.11 * Dr. Rodriguez performed maxilla debridement, has been on IV abx for osteomyelitis * now planning for further debridement with reconstruction * currently has left maxilla defect after extractions and debridment * allens test with good ulnar flow bilaterally * discussed free flap reconstruction after debridement completed by Dr. Rodriguez, likely serratus/scapula tip, neck exploration * possible tracheostomy, pt already has g-tube for nutrition * Chief Complaint: left vanessa-antral fistula * Referring Provider: Dr. Key Jasso and Dr. Sutherland * Location: left maxilla * Quality: fistula, necrotic bone, swelling * Severity: moderate * Duration: 1.5 years * Timing: all times * Context: progressive disease of the left maxilla, denies history of smoking * Modifying factors: none * Associated signs and symptoms: left facial pain, left facial numbness, fistula of the maxillary sinus * underwent previous septoplasty and ESS * fistula appeared within the last 2 months * no biopsies up to this point * dental extraction of the left molar with dry socket * now with progressive pain, bone exposure, non-healing wound, palate swelling * referred for work up * CT sinus wo contrast obtained outside, not available for review today * Past, family, and social history obtained but not pertinent to current problem unless documented above. * All other systems have been reviewed and are negative for complaint unless documented above. * Physical Exam: * General: Well-developed and well-nourished in appearance. * Skin: No rashes or concerning lesions on the visible portions of the skin. * Eyes: Extraocular movements intact. Visual randall grossly normal. * Ears: Pinna are normal in shape and position. External canals are patent. * Nose: Dorsum is midline * Oral Cavity/Oropharynx: left posterior maxilla oroantral fistula, necrotic bone alone left maxilla buccal ridge, raised mucosa of the right hard palate * Neck: Midline trachea without masses or lesions. Thyroid is normal in size. * Lymphatics: No palpable cervical lymphadenopathy * Respiratory: No respiratory distress. Quiet breathing without stertor or stridor. * Cardiovascular: Regular rate and rhythm. Warm extremities with equal pulses. * Psych: Normal mood and affect. Judgement and insight appropriate. * Neuro: Alert and oriented. CN II-XII grossly intact. No focal deficits. * 1% lido w epi injected at the maxilla and palate * multiple punch biopsies taken along hard palate and adjacent to fistula * portions of necrotic bone debrided and sent for culture with instrumentation * patient tolerated this well HX-Swwncyaekkivvw-[facility]kovbsbCo[facility] 4100 Work Phone: History of Present illness Narrative* IH 5.. * s/p serratus free flap for reconstruction of the palate * doing well * left back drain started to come out * drain SS * incisions intact, flap viable * nasal trumpet removed * palate reconstruction intact * continue post op care * continue abx * RTC 2 weeks * IH 4.17.12 * Dr. Rodriguez performed maxilla debridement, has been on IV abx for osteomyelitis * now planning for further debridement with reconstruction * currently has left maxilla defect after extractions and debridment * allens test with good ulnar flow bilaterally * discussed free flap reconstruction after debridement completed by Dr. Rodriguez, likely serratus/scapula tip, neck exploration * possible tracheostomy, pt already has g-tube for nutrition * Chief Complaint: left vanessa-antral fistula * Referring Provider: Dr. Key Jasso and Dr. Sutherland * Location: left maxilla * Quality: fistula, necrotic bone, swelling * Severity: moderate * Duration: 1.5 years * Timing: all times * Context: progressive disease of the left maxilla, denies history of smoking * Modifying factors: none * Associated signs and symptoms: left facial pain, left facial numbness, fistula of the maxillary sinus * underwent previous septoplasty and ESS * fistula appeared within the last 2 months * no biopsies up to this point * dental extraction of the left molar with dry socket * now with progressive pain, bone exposure, non-healing wound, palate swelling * referred for work up * CT sinus wo contrast obtained outside, not available for review today * Past, family, and social history obtained but not pertinent to current problem unless documented above. * All other systems have been reviewed and are negative for complaint unless documented above. * Physical Exam: * General: Well-developed and well-nourished in appearance. * Skin: No rashes or concerning lesions on the visible portions of the skin. * Eyes: Extraocular movements intact. Visual randall grossly normal. * Ears: Pinna are normal in shape and position. External canals are patent. * Nose: Dorsum is midline * Oral Cavity/Oropharynx: left posterior maxilla oroantral fistula, necrotic bone alone left maxilla buccal ridge, raised mucosa of the right hard palate * Neck: Midline trachea without masses or lesions. Thyroid is normal in size. * Lymphatics: No palpable cervical lymphadenopathy * Respiratory: No respiratory distress. Quiet breathing without stertor or stridor. * Cardiovascular: Regular rate and rhythm. Warm extremities with equal pulses. * Psych: Normal mood and affect. Judgement and insight appropriate. * Neuro: Alert and oriented. CN II-XII grossly intact. No focal deficits. * 1% lido w epi injected at the maxilla and palate * multiple punch biopsies taken along hard palate and adjacent to fistula * portions of necrotic bone debrided and sent for culture with instrumentation * patient tolerated this well W[facility]-Ehcwtechnjuznm-[facility]iqgeprCo[facility] 4100 Work Phone: History of Present illness Narrative* IH 5.. * Flap healed, now with some exposed bone * IH 5.. * s/p serratus free flap for reconstruction of the palate * doing well * incisions intact, flap viable * exposed bone * palate reconstruction intact * plan for bone debridement * IH 4.17.12 * Dr. Rodriguez performed maxilla debridement, has been on IV abx for osteomyelitis * now planning for further debridement with reconstruction * currently has left maxilla defect after extractions and debridment * allens test with good ulnar flow bilaterally * discussed free flap reconstruction after debridement completed by Dr. Rodriguez, likely serratus/scapula tip, neck exploration * possible tracheostomy, pt already has g-tube for nutrition * Chief Complaint: left vanessa-antral fistula * Referring Provider: Dr. Key Jasso and Dr. Sutherland * Location: left maxilla * Quality: fistula, necrotic bone, swelling * Severity: moderate * Duration: 1.5 years * Timing: all times * Context: progressive disease of the left maxilla, denies history of smoking * Modifying factors: none * Associated signs and symptoms: left facial pain, left facial numbness, fistula of the maxillary sinus * underwent previous septoplasty and ESS * fistula appeared within the last 2 months * no biopsies up to this point * dental extraction of the left molar with dry socket * now with progressive pain, bone exposure, non-healing wound, palate swelling * referred for work up * CT sinus wo contrast obtained outside, not available for review today * Past, family, and social history obtained but not pertinent to current problem unless documented above. * All other systems have been reviewed and are negative for complaint unless documented above. * Physical Exam at initial visit * General: Well-developed and well-nourished in appearance. * Skin: No rashes or concerning lesions on the visible portions of the skin. * Eyes: Extraocular movements intact. Visual randall grossly normal. * Ears: Pinna are normal in shape and position. External canals are patent. * Nose: Dorsum is midline * Oral Cavity/Oropharynx: left posterior maxilla oroantral fistula, necrotic bone alone left maxilla buccal ridge, raised mucosa of the right hard palate * Neck: Midline trachea without masses or lesions. Thyroid is normal in size. * Lymphatics: No palpable cervical lymphadenopathy * Respiratory: No respiratory distress. Quiet breathing without stertor or stridor. * Cardiovascular: Regular rate and rhythm. Warm extremities with equal pulses. * Psych: Normal mood and affect. Judgement and insight appropriate. * Neuro: Alert and oriented. CN II-XII grossly intact. No focal deficits. EL-Vuudpnutxrfmbq-SykkpswCo[facility] 4100 Work Phone: History of Present illness Narrative* 5.22.23 s/p bone debridement and mucosal flap * incisions intact, flap viable, distal portion with loss * no exposed bone * debridement performed intraorally with sharp dissection * closure with chromic gut perfored * will monitor * IH 5.15.23 * Flap healed, now with some exposed bone * IH 5.1.23 * s/p serratus free flap for reconstruction of the palate * doing well * IH 4.17.12 * Dr. Rodriguez performed maxilla debridement, has been on IV abx for osteomyelitis * now planning for further debridement with reconstruction * currently has left maxilla defect after extractions and debridment * allens test with good ulnar flow bilaterally * discussed free flap reconstruction after debridement completed by Dr. Rodriguez, likely serratus/scapula tip, neck exploration * possible tracheostomy, pt already has g-tube for nutrition * Chief Complaint: left vanessa-antral fistula * Referring Provider: Dr. Key Jasso and Dr. Sutherland * Location: left maxilla * Quality: fistula, necrotic bone, swelling * Severity: moderate * Duration: 1.5 years * Timing: all times * Context: progressive disease of the left maxilla, denies history of smoking * Modifying factors: none * Associated signs and symptoms: left facial pain, left facial numbness, fistula of the maxillary sinus * underwent previous septoplasty and ESS * fistula appeared within the last 2 months * no biopsies up to this point * dental extraction of the left molar with dry socket * now with progressive pain, bone exposure, non-healing wound, palate swelling * referred for work up * CT sinus wo contrast obtained outside, not available for review today * Past, family, and social history obtained but not pertinent to current problem unless documented above. * All other systems have been reviewed and are negative for complaint unless documented above. * Physical Exam at initial visit * General: Well-developed and well-nourished in appearance. * Skin: No rashes or concerning lesions on the visible portions of the skin. * Eyes: Extraocular movements intact. Visual randall grossly normal. * Ears: Pinna are normal in shape and position. External canals are patent. * Nose: Dorsum is midline * Oral Cavity/Oropharynx: left posterior maxilla oroantral fistula, necrotic bone alone left maxilla buccal ridge, raised mucosa of the right hard palate * Neck: Midline trachea without masses or lesions. Thyroid is normal in size. * Lymphatics: No palpable cervical lymphadenopathy * Respiratory: No respiratory distress. Quiet breathing without stertor or stridor. * Cardiovascular: Regular rate and rhythm. Warm extremities with equal pulses. * Psych: Normal mood and affect. Judgement and insight appropriate. * Neuro: Alert and oriented. CN II-XII grossly intact. No focal deficits. YV-Xniyqwgualqkbn-FfpqaifCooperstown Medical Center 4100 Work Phone: History of Present illness Narrative* 01.05.23 s/p bone debridement and mucosal flap * further exposure of the rib encountered * discussed excision of the bone, opted to perform in office * 1% lidocaine with epinephrine injected along the palata. Incision made around the exposed bone, dissection performed circumferentially to free the rib bone/cartilage from surrounding soft tissue. this was discarded. Closure of the palate and flap was performed with chromic gut in an interrupted mattress fashion. * continue peridex BID * rtc 1 month * IH 5 * Flap healed, now with some exposed bone * IH 5.1.23 * s/p serratus free flap for reconstruction of the palate * doing well * IH 4.17.12 * Dr. Rodriguez performed maxilla debridement, has been on IV abx for osteomyelitis * now planning for further debridement with reconstruction * currently has left maxilla defect after extractions and debridment * allens test with good ulnar flow bilaterally * discussed free flap reconstruction after debridement completed by Dr. Rodriguez, likely serratus/scapula tip, neck exploration * possible tracheostomy, pt already has g-tube for nutrition * Chief Complaint: left vanessa-antral fistula * Referring Provider: Dr. Key Jasso and Dr. Sutherland * Location: left maxilla * Quality: fistula, necrotic bone, swelling * Severity: moderate * Duration: 1.5 years * Timing: all times * Context: progressive disease of the left maxilla, denies history of smoking * Modifying factors: none * Associated signs and symptoms: left facial pain, left facial numbness, fistula of the maxillary sinus * underwent previous septoplasty and ESS * fistula appeared within the last 2 months * no biopsies up to this point * dental extraction of the left molar with dry socket * now with progressive pain, bone exposure, non-healing wound, palate swelling * referred for work up * CT sinus wo contrast obtained outside, not available for review today * Past, family, and social history obtained but not pertinent to current problem unless documented above. * All other systems have been reviewed and are negative for complaint unless documented above. * Physical Exam at initial visit * General: Well-developed and well-nourished in appearance. * Skin: No rashes or concerning lesions on the visible portions of the skin. * Eyes: Extraocular movements intact. Visual randall grossly normal. * Ears: Pinna are normal in shape and position. External canals are patent. * Nose: Dorsum is midline * Oral Cavity/Oropharynx: left posterior maxilla oroantral fistula, necrotic bone alone left maxilla buccal ridge, raised mucosa of the right hard palate * Neck: Midline trachea without masses or lesions. Thyroid is normal in size. * Lymphatics: No palpable cervical lymphadenopathy * Respiratory: No respiratory distress. Quiet breathing without stertor or stridor. * Cardiovascular: Regular rate and rhythm. Warm extremities with equal pulses. * Psych: Normal mood and affect. Judgement and insight appropriate. * Neuro: Alert and oriented. CN II-XII grossly intact. No focal deficits. UZ-Rjhbqgcyixdsta-KnumtunCo[facility]stown [facility] Center 4100 Work Phone: History of Present illness Narrative* 02.16.23 doing well. here for follow up. no evidence of fistula and pain has substantially reduced. * 01.05.23 s/p bone debridement and mucosal flap * palate intact well healed * well mucosalized without evidence of fistula * continue peridex BID * rtc 3 months * IH 5 * Flap healed, now with some exposed bone * IH 5.09.08 * s/p serratus free flap for reconstruction of the palate * doing well * IH 4.17.12 * Dr. Rodriguez performed maxilla debridement, has been on IV abx for osteomyelitis * now planning for further debridement with reconstruction * currently has left maxilla defect after extractions and debridment * allens test with good ulnar flow bilaterally * discussed free flap reconstruction after debridement completed by Dr. Rodriguez, likely serratus/scapula tip, neck exploration * possible tracheostomy, pt already has g-tube for nutrition * Chief Complaint: left vanessa-antral fistula * Referring Provider: Dr. Key Jasso and Dr. Sutherland * Location: left maxilla * Quality: fistula, necrotic bone, swelling * Severity: moderate * Duration: 1.5 years * Timing: all times * Context: progressive disease of the left maxilla, denies history of smoking * Modifying factors: none * Associated signs and symptoms: left facial pain, left facial numbness, fistula of the maxillary sinus * underwent previous septoplasty and ESS * fistula appeared within the last 2 months * no biopsies up to this point * dental extraction of the left molar with dry socket * now with progressive pain, bone exposure, non-healing wound, palate swelling * referred for work up * CT sinus wo contrast obtained outside, not available for review today * Past, family, and social history obtained but not pertinent to current problem unless documented above. * All other systems have been reviewed and are negative for complaint unless documented above. * Physical Exam at initial visit * General: Well-developed and well-nourished in appearance. * Skin: No rashes or concerning lesions on the visible portions of the skin. * Eyes: Extraocular movements intact. Visual randall grossly normal. * Ears: Pinna are normal in shape and position. External canals are patent. * Nose: Dorsum is midline * Oral Cavity/Oropharynx: left posterior maxilla oroantral fistula, necrotic bone alone left maxilla buccal ridge, raised mucosa of the right hard palate * Neck: Midline trachea without masses or lesions. Thyroid is normal in size. * Lymphatics: No palpable cervical lymphadenopathy * Respiratory: No respiratory distress. Quiet breathing without stertor or stridor. * Cardiovascular: Regular rate and rhythm. Warm extremities with equal pulses. * Psych: Normal mood and affect. Judgement and insight appropriate. * Neuro: Alert and oriented. CN II-XII grossly intact. No focal deficits. [facility] Work Phone: History of Present illness Narrative* Sadia Dickson MD - 06/03/2024 9:00 AM EDT Update June 03 Doing well. Still has a little mild pain and swelling but is that is getting better off doxycycline. No fever chills nausea vomiting diarrhea night sweats weight loss sinus congestion Virtual visit doing well Assessment, overall stable off antibiotics. Will check a CRP has been off antibiotics for several months and call him with results. Based on his CRP will decide whether he needs to be seen again or not Update February 26, 2024 Patient has been off the doxycycline for more than a month. Feels good with no symptoms that the nasal and sinus infection has returned. No new medical issues. Doing well overall. Really continue to observe doxycycline. He took more than 13 months of therapy and I think the riskof relapse is low but not 0. We did do a follow-up June 03 9:00 virtual Update December 15, 2023 Virtual visit Last note from ENT reviewed and he appears to be doing very well. Patient reports his sinuses feel good. Said he normally gets a sinus infection this time a year buthas not this year. Tolerating doxycycline without difficulty. Has about a month supply left. Been more than a year since we started therapy for actinomycoses. I told him to complete his current supply I will do a follow-up February 25 at 840. 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 Recently saw ENT andwe reviewed this note. Patient saw some swelling but per the ENT note much better. Had a CAT scan ordered by ENT in the last month of January that did not show any bony destruction. Excellent tolerance of doxycycline with no nausea vomiting diarrhea or rash. Feels well overall. No complaints. 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 Continues to follow with ENT. Will need at least a year of doxycycline. Will make sure he has refills and to follow-up January 13 8:40 AM [facility] Work Phone: History of Present illness Narrative* Sadia Dickson MD - 02/26/2024 1:40 PM EDT Update February 26, 2024 Patient has been off the doxycycline for more than a month. Feels good with no symptoms that the nasal and sinus infection has returned. No new medical issues. Doing well overall. Really continue to observe doxycycline. He took more than 13 months of therapy and I think the riskof relapse is low but not 0. We did do a follow-up June 03 9:00 virtual Update December 15, 2023 Virtual visit Last note from ENT reviewed and he appears to be doing very well. Patient reports his sinuses feel good. Said he normally gets a sinus infection this time a year buthas not this year. Tolerating doxycycline without difficulty. Has about a month supply left. Been more than a year since we started therapy for actinomycoses. I told him to complete his current supply I will do a follow-up February 25 at 840. 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 Recently saw ENT andwe reviewed this note. Patient saw some swelling but per the ENT note much better. Had a CAT scan ordered by ENT in the last month of January that did not show any bony destruction. Excellent tolerance of doxycycline with no nausea vomiting diarrhea or rash. Feels well overall. No complaints. 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 Continues to follow with ENT. Will need at least a year of doxycycline. Will make sure he has refills and to follow-up January 13 8:40 AM [facility] Work Phone: Hospital Discharge instructions* Activity:activity as tolerated. May shower. May not return to school/work Instructions:. May not drive while taking narcotics. No pushing, pulling, or lifting objects greater than 10 pounds for 2 week(s). Weight-bearing Instructions: full weight bearing. Other activity instructions: Slowly increaseyour activity each day. No strenuous or vigorous exercising until cleared by your surgeon. * Labs 1 (Modify Template):Lab Test(s): Basic Metabolic Panel, CBC with dif, CRPFax Results To: Dr. Dickson in ID office at [phone] * Additional Orders:Weight: weekly * Call Provider If:Breathing faster than normal. Breathing harder than normal or having retractions. Fever of 100.4 F (38 C) or higher. Chills. Urinating less than normal, over 1 day. Acting very sleepy and difficult to awaken. Vomiting (throwing up) and not able to eat or drink for 12 hours. 3 or more loose, watery bowel movements in 24 hours (diarrhea). Any new concerning symptoms. * Home Care Face to Face Certification:Home Care Services Needed: yesSkilled Disciplines Ordered: RN/LPNFace to Face Encounter Completed: yesDate of Encounter: [id number] Necessity for Homecare(based on clinical findings): My clinical findings support the need for the following skilled services: Patient needs Usp/RN needed to instruct patient/caregiver to perform wound care dressing changes and to monitor for signs and symptoms of infection or adverse effects; Usp/RN needed to instruct patient/caregiver to perform daily IV antibiotics for treatment of wound, andto monitor for signs/symptoms of infection or adverse effects of PICC line. Homebound Status: homeboundHomebound Due to: Based on my clinical findings, this patient is homebound due to impaired ability to communicate secondary to surgical site, multiple oral cavity wounds, and also due to physical deconditioning acquired during hospitalization making independent ambulation contraindicated until the patient regains strength and endurance. Face to Face Completed and Home Care Orders Reviewed: I certify that this patient is under my care. I have reviewed the information included in the face to face and certify that the home care services ordered are medically necessary for this patient. * Home Care Skilled Service:Home Care Skilled Service: assessment, infusions/injectables/medications,IV line care, labsInjectable/Infusion/Medication (Name only): UnasynType of Assessment: post opAssessment: First Home Care Visit: day of dischargeIV/Line Care: First Home Care Visit: day of dischargeLine Care Orders: Home Care agency to obtain line care orders from ProviderLab Instructions: see labsection * Follow Up Appointment 1:Physician/Dept/Service: Dr. Natividad Fields for Referral: post opvisitScheduled Date/Time: 25-Nov-2022 14:45Location: [address] [facility] [employer] [facility] [address] [place], [place] [address] Number: [phone] with questionsComments: Please arrive 10-15 minutes early, bring photo ID, insurance information, and current list of medications. If unable to keep this appointment, please call to cancel at least 24 hours prior to appointment. * Follow Up Appointment 2:Physician/Dept/Service: Dr. Sadia Dickson - Infectious DiseaseReason for Referral: Hospital follow upScheduled Date/Time: 02-Jan-2023 10:20Location: [facility] [address] [address] [place], [place] [address]Eqsnswew: Please arrive 10-15 minutes early, bring photo ID, insurance information, and current list of medications. If unable to keep this appointment, please call to cancel at least 24 hours prior to appointment. * PEG Tube Care:PEG Tube Care: Cleanse with 1:1 mixture of hydrogen peroxide and normal saline to remove any crust. Spin bumper daily. If bumper does not spin freely notify MD. Monitor site for signs & symptoms of infection which include redness, warmth, increased tenderness and purulent drainage. * Incision Care:Intra-oral Incision Care: To care for your intra-oral incisions, please swish and spit with 15 mLs of peridex solution 3-4 times daily until follow-up. Use swabs to perform oral care. * Access Type: PICCHomecare Line Care Orders: - Pulse Flush each lumen with 10 mLs normal saline flush before and after medications, followed by 5 mls of 10 units per ml heparin flush. Follow with positive displacement line clamping technique.- If medication is not infusing, flush each lumen daily with 10 ml normal saline followed by 5 mls of 10 units per ml heparin flush. - Weekly sterile dressingchange with chloroprep, if tolerated, and sterile gloves and mask. Use transparent dressing. May use Tegaderm CHG or Chlorhexidine disk for high risk infection patients. Use securement device or dressing and change weekly.- Sterile gauze dressings are changed three times per week if transparent is not tolerated.- Change injection cap and extension sets weekly and as needed. Cleanse catheter hub with Site-Scrub (preferred), or alcohol pads with injection cap change. Prime injection cap with normal saline before use. Coordinate with dressing change, if possible.- Tubing changes - DAILY for intermittent infusions, lipid, or blood products. Every 96 hours for continuous infusions. Maximum of 7 days for WINDOWS SERVER SUPPORT TECHNICIAN or other low infection risk therapies that remain intact. Use separate tubings for different medications.- Cathflo 2 mg IV as needed per lumen for sluggish lines, loss of, or poor blood return. Stopcock or Vertical Syringe method per RN discretion for completely occluded lines. Dwell time 2 hours whenever possible. Maximum daily dose is 4 mg for a single lumen and 8 mg for a double lumen catheter. - RN to record number of lumens, size and length of catheter, and external catheter length. Assess weekly and as needed. Assess baseline mid upper arm circumference at start of care and prn for signs and symptoms of edema and DVT. Record on dressing and in clinical note.- LINE may remain in place with a valid need, if patency is maintained and there is no migration, pain, redness, swelling, or signs and symptoms of infection, and site is clean and dry. Notify MD of any line complications.- Blood return must be confirmed prior to TPN or chemotherapy administration. Blood return isto be checked at least daily for all infusions. Refer to Cathflo order for loss of blood return.- Avoid using syringes smaller than 10 mLs unless patency has been verified.- Do not use line arm for BP or phlebotomy. - May use line for labs if not contraindicated. Double the saline volume after a lab draw. -RN may remove lines placed in the arm, at completion of therapy, if the PICC length is known, unless contraindicated. Line Site: LeftHomecare ONLY Lines: [facility] Additional Instructions Follow-up with your physician at [facility] this morning as scheduled. [facility] Work Phone: Hospital Discharge instructions* Activity:activity as tolerated. May shower. May not return to school/work until follow-up visit with Dr. Amador Instructions:. May not drive while taking narcotics. No pushing, pulling, or lifting objects greater than 10 pounds until follow-up visit. Weight-bearing Instructions: full weight bearing. Other activity instructions: Slowly increase your activity each day. No strenuous or vigorous exercising until cleared by your surgeon. * Labs 1 (Modify Template):Lab Test(s): Basic Metabolic Panel, CBC with dif, CRPDate To Be Drawn: weeklyFax Results To: [phone] attn: Dr. Dickson * Wound Care 1:Wound Site: NoseWound Type: nasal trumpetChange Dressing: neverOther Instructions: To remain in place until follow up visit with Dr. Hernandezrrigate nose with nasal saline rinse TID * Additional Orders:Weight: weeklyAdditional Instructions: Call the office for signs of infection: sustained elevated temperature greater than 100.4 degrees, increased incisional pain, increased redness or swelling, tenderness to touch, or drainage along incision.Also call the office for persistent nausea or vomiting. * Call Provider If:Breathing faster than normal. Breathing harder than normal or having retractions. Fever of 100.4 F (38 C) or higher. Chills. Urinating less than normal, over 1 day. Acting very sleepy and difficult to awaken. Vomiting (throwing up) and not able to eat or drink for 12 hours. 3 or more loose, watery bowel movements in 24 hours (diarrhea). Any new concerning symptoms. * Home Care Face to Face Certification:Home Care Services Needed: yesSkilled Disciplines Ordered: RN/GASTROENTEROLOGY NURSE, PT, OTFace to Face Encounter Completed: yesDate of Encounter: [id number] Necessity for Homecare (based on clinical findings): My clinical findings support the need for the following skilled services: Patient needs Physical Therapist to improve deconditioning, and to restore the ability to walk without support; Usp/RN needed to instruct patient/caregiver to perform wound care; Usp/RN needed to instruct patient/caregiver to perform daily IV antibiotics for treatment of wound, and to monitor for signs/symptoms of infection or adverse effects of PICC line.Homebound Status: homeboundHomebound Due to: Based on my clinical findings, this patient is homebound dueto need for prolonged IV antibiotics and physical deconditioning acquired during hospitalization making independent ambulation contraindicated until the patient regains strength and endurance.Face toFace Completed and Home Care Orders Reviewed: I certify that this patient is under my care. I have reviewed the information included in the face to face and certify that the home care services ordered are medically necessary for this patient. * Home Care Skilled Service:Home Care Skilled Service: assessment, infusions/injectables/medications,IV line care, Rehab (PT/OT/SP eval and treat), tube feedInjectable/Infusion/Medication (Name only):UnasynType of Assessment: post opAssessment: First Home Care Visit: day of dischargeIV/Line Care: First Home Care Visit: day of dischargeLine Care Orders: Home Care agency to obtain line care orders from ProviderRehab: First Home Care Visit: day of dischargeTube Feed: First Home Care Visit: day of discharge * Follow Up Appointment 1:Physician/Dept/Service: Dr. Uriah Fields for Referral: Post opflap checkScheduled Date/Time: 15-Dec-2022 12:30Location: [facility] [address], [address] Number: [phone] with questionsComments: Please arrive 10-15minutes early, bring photo ID, insurance information, and current list of medications. If unable tokeep this appointment, please call to cancel at least 24 hours prior to appointment. * Follow Up Appointment 2:Physician/Dept/Service: Dr. Natividad Fields for Referral: post op visitScheduled Date/Time: 26-Dec-2022 13:15Location: [facility] [place] [address] [address] [place], [place] [address] Number: [phone] with questionsComments: Please arrive 10-15 mi nutes early, bring photo ID, insurance information, and current list of medications. If unable to keep this appointment, please call to cancel at least 24 hours prior to appointment. * Follow Up Appointment 3:Physician/Dept/Service: Coumadin ClinicComments: Please arrange an appointment with your coumadin clinic for Thursday. * Coumadin (Warfarin) Follow-Up Monitoring:Follow-Up Monitoring Locations (Clinic): [facility] [address], [address] [address], [address], phone: [phone] #2 * PEG Tube Care:PEG Tube Care: Cleanse with 1:1 mixture of hydrogen peroxide and normal saline to remove any crust. Spin bumper daily. If bumper does not spin freely notify MD. Monitor site for signs & symptoms of infection which include redness, warmth, increased tenderness and purulent drainage. * Incision Care:Facial/Neck Incision Care: Cleanse all facial/neck incisions twice daily with baby shampoo or mild soap and water. Apply petroleum jelly/vaseline to incision line twice daily until incision has healed. Intra- oral Incision Care: To care for your intra-oral incisions, please swish and sp it with 15 mLs of peridex solution 3-4 times daily until follow-up. Use swabs to perform oral care. * Flaps:Cleanse serratus/rib incision twice daily with baby shampoo or mild soap and water. Apply petroleum jelly/vaseline to incision line twice daily until incision has healed. * Access Type: PICCHomecare Line Care Orders: - Pulse Flush each lumen with 10 mLs normal saline flush before and after medications, followed by 5 mls of 10 units per ml heparin flush. Follow with positive displacement line clamping technique.- If medication is not infusing, flush each lumen daily with 10 ml normal saline followed by 5 mls of 10 units per ml heparin flush. - Weekly sterile dressingchange with chloroprep, if tolerated, and sterile gloves and mask. Use transparent dressing. May use Tegaderm CHG or Chlorhexidine disk for high risk infection patients. Use securement device or dressing and change weekly.- Sterile gauze dressings are changed three times per week if transparent is not tolerated.- Change injection cap and extension sets weekly and as needed. Cleanse catheter hub with Site-Scrub (preferred), or alcohol pads with injection cap change. Prime injection cap with normal saline before use. Coordinate with dressing change, if possible.- Tubing changes - DAILY for intermittent infusions, lipid, or blood products. Every 96 hours for continuous infusions. Maximum of 7 days for WINDOWS SERVER SUPPORT TECHNICIAN or other low infection risk therapies that remain intact. Use separate tubings for different medications.- Cathflo 2 mg IV as needed per lumen for sluggish lines, loss of, or poor blood return. Stopcock or Vertical Syringe method per RN discretion for completely occluded lines. Dwell time 2 hours whenever possible. Maximum daily dose is 4 mg for a single lumen and 8 mg for a double lumen catheter. - RN to record number of lumens, size and length of catheter, and external catheter length. Assess weekly and as needed. Assess baseline mid upper arm circumference at start of care and prn for signs and symptoms of edema and DVT. Record on dressing and in clinical note.- LINE may remain in place with a valid need, if patency is maintained and there is no migration, pain, redness, swelling, or signs and symptoms of infection, and site is clean and dry. Notify MD of any line complications.- Blood return must be confirmed prior to TPN or chemotherapy administration. Blood return isto be checked at least daily for all infusions. Refer to Cathflo order for loss of blood return.- Avoid using syringes smaller than 10 mLs unless patency has been verified.- Do not use line arm for BP or phlebotomy. - May use line for labs if not contraindicated. Double the saline volume after a lab draw. -RN may remove lines placed in the arm, at completion of therapy, if the PICC length is known, unless contraindicated. Line Site: LeftHomecare ONLY Lines: Adult [facility] HospitalReason for referral (narrative)No reason for referral information availableWAvita Health System [facility] Work Phone: Chief Complaint and Reason for Visit Chief Complaint Malignant neoplasm o f head, face and neck Chief Complaint SINUSITIS Chief Complaint SINUSITIS SEPTOPLASTY, FESS WITH NAVIGATION Reason for Visit Hypertrophy of infer ior nasal turbinate Nasal congestion Nasal septal deviation Chronic pansinusitis Chief Complaint LEFT ORAL ORA FISTUL A Chief Complaint LEFT ORAL ORA FISTUL A Chronic maxillary sinusitis Chief Complaint LEFT ORAL ORA FISTUL A Chronic maxillary sinusitis mouth Chief Complaint Chronic maxillary si nusitis mouth Chief Complaint EORDER LAB-JASSO/ XR AY SCHINNER Chief Complaint Admit Date ADD LUMBAR XRAY October 11, 2024 8:33am Chief Complaint Admit Date ADD LUMBAR XRAY October 11, 2024 8:33am SPONDYLOLISTHESIS/LEG WEAKNESS November 10:21am Chief Complaint Admit Date SPONDYLOLISTHESIS/LEG WEAKNESS November 10:21am LUMBAR SPINE January 05, 2025 7:46a m RM 2 January 05, 2025 8:18a m SPONDYLOLISTHESIS LUMBAR REGION. RX HERE January 12, 2025 9:00am Reason for Visit Admit Date Balance disorder January 05, 2025 7:46a m History of lumbar fusion January 05, 2025 7:46am Spinal stenosis of lumbar region with ne urogenic claudication January 05, 2025 7:46am Spondylolisthesis, lumbar region December 7:46am Chief Complaint Admit Date LUMBAR SPINE January 05, 2025 7:46a m RM 2 January 05, 2025 8:18a m SPONDYLOLISTHESIS LUMBAR REGION. RX HERE January 12, 2025 9:00am Family History No Family History Records Found Relationship Condition Age at Onset Recorded Date/T norman father Cardiac disease Unknown mother Cerebrovascular accident (CVA) Unknown Advance Directives No Advanced Directives Records Found Advance Directive Response Recorded Date/ Time Living Will No May 20 9:43am Power of [employer] Flatbed Driver No May 20 021 9:43am Advance Directive Response Recorded Date/ Time Living Will No May 20 9:05am Power of [employer] Flatbed Driver No May 20 022 9:05am Advance Directive Response Recorded Date/ Time Living Will No May 20 8:05am Power of [employer] Flatbed Driver No May 20 8:05am Advance Directive Response Recorded Date/ Time Living Will No December 01, 2022 12:22am Power of [employer] Flatbed Driver No December 01 12:22am Advance Directive Response Recorded Date/ Time Living Will No November 30, 2022 11:22pm Power of [employer] Flatbed Driver No November 30 11:22pm Chief Complaint removed left chest wall drainFUVFUVfollow upfollow up Summary Purpose Reason for Referral Specialty Diagnoses / Procedures Referred By Contac t Referred To Contact Radiology Diagnoses Inflammatory conditions of jaws Procedures CT maxillofacial bones wo IV contrast CT maxillofacial bones w IV contrast CT maxillofacial bones w [place] [address] [place] [address] Referral ID Status Reason Start Date Expiration Date Visits Requested Visits Authorized [id number] Authorized Perform Procedure 05/15/2023 11/11/2023 1 1 Additional Source Comments Goals (unrecognized section and content) Goals may be documented in a n alternate sectionGoals may be documented in an alternate sectionGoals may be documented in an alternate sectionGoals may be documented in an alternate sectionGoals may be documented in an alternate sectionGoals may be documented in an alternate sectionGoals may be documented in an alternate sectionGoals may be documented in an alternate sectionGoals may be documented in an alternate sectionGoals may be documented in an alternate sectionGoals may be documented in an alternate sectionGoals may be documented in an alternate sectionGoals may be documented in an alternate sectionGoals may be documented in an alternate sectionGoals may be documented in an alternate sectionGoals may be documented in an alternate section Care Teams (unrecognized sec tion and content) Team Status: Active Member Role Status Dates Dr. Key Jasso MD Family Provider Active Dr. Key Jasso MD Primary Care Provider Active Team Status: Inactive Member Role Status Dates Dr. Key Jasso MD Primary Care Provider Active Dr. Rubens Sutherland MD Attending Provider, [facility] Provider Active Team Status: Inactive Member Role Status Dates Dr. Key Jasso MD Primary Care Provide r, Attending Provider, Referring Provider Active TIMO BRYSON Other Provider Active Team Status: Inactive Member Role Status Dates Dr. Key Jasso MD Primary Care Provider Active Dr. Doron Benitez MD Emergency Provider Active Team Status: Inactive Member Role Status Dates Dr. Key Jasso MD Primary Care Provider Active Dr. Doron Benitez MD Attending Provider, Emergency Provider Active Team Status: Inactive Member Role Status Dates Dr. Key Jasso MD Primary Care Provider, Attending P eris Active Stencil Typist Relationship Specialty Start Date End Date Key Jasso MD [address] [place] [address] PCP - General 11/12/22 Stencil Typist Relationship Specialty Start Date End Date Key Jasso MD [address] [place] [address] PCP - General 11/12/22 Stencil Typist Relationship Specialty Start Date End Date Key Jasso MD [address] [place] [address] PCP - General 11/12/22 Team Status: Inactive Member Role Status Dates Dr. Key aJsso MD Primary Care Provide r, Attending Provider, Referring Provider Active Dr. Silas Garcia MD Other Provider Active Stencil Typist Relationship Specialty Start Date End Date Key Jasso MD [address] [place] [address] PCP - General 11/12/22 Stencil Typist Relationship Specialty Start Date End Date Key Jasso MD [address] [place] [address] PCP - General 11/12/22 Stencil Typist Relationship Specialty Start Date End Date Key Jasso MD [address] [place] [address] PCP - General 11/12/22 Stencil Typist Relationship Specialty Start Date End Date Key Jasso MD [address] [place] [address] PCP - General 11/12/22 Team Status: Active Member Role Status Dates Dr. Key Jasso MD Primary Care Provider Active Team Status: Inactive Member Role Status Dates Dr. Key Jasso MD Primary Care Provider Active Start: October 11, 2024 End: October 11, 2024 Dr. Key Jasso MD Attending Provider Active St art: October 11, 2024 End: October 11, 2024 Dr. Key Jasso MD Referring Provider Active St art: October 11, 2024 End: October 11, 2024 Team Status: Inactive Member Role Status Dates Dr. Key Jasso MD Primary Care Provider Active Start: November 21, 2024 End: November 21, 2024 Dr. Key Jasso MD Attending Provider Active St art: November 21, 2024 End: November 21, 2024 Dr. Key Jasso MD Referring Provider Active St art: November 21, 2024 End: November 21, 2024 Team Status: Active Member Role/Relationship Status Dates Dr. Key Jasso MD Primary Care Provider Active Team Status: Inactive Member Role/Relationship Status Dates Dr. Key Jasso MD Primary Care Provider Active Start: November 21, 2024 End: November 21, 2024 Dr. Key Jasso MD Attending Provider Active St art: November 21, 2024 End: November 21, 2024 Dr. Key Jasso MD Referring Provider Active St art: November 21, 2024 End: November 21, 2024 Team Status: Inactive Member Role/Relationship Status Dates Dr. Key Jasso MD Primary Care Provider Active Start: January 05, 2025 End: January 05, 2025 Dr. Key Jasso MD Referring Provider Active St art: January 05, 2025 End: January 05, 2025 Dr. Per Pond MD Attending Provider Active Start: January 05, 2025 End: January 05, 2025 Team Status: Inactive Member Role/Relationship Status Dates Dr. Key Jasso MD Primary Care Provider Active Start: January 05, 2025 End: January 05, 2025 Dr. Calixto Cardona MD Attending Provider Active S tart: January 05, 2025 End: January 05, 2025 Team Status: Active Member Role/Relationship Status Dates Dr. Key Jasso MD Primary Care Provider Active Start: January 12, 2025 Dr. Per Pond MD Attending Provider Active Start: January 12, 2025 Dr. Per Pond MD Referring Provider Active Start: January 12, 2025 Team Status: Inactive Member Role/Relationship Status Dates Dr. Key Jasso MD Primary Care Provider Active Start: March 07, 2025 End: March 07, 2025 Dr. Key Jasso MD Attending Provider Active St art: March 07, 2025 End: March 07, 2025 Dr. Key Jasso MD Referring Provider Active St art: March 07, 2025 End: March 07, 2025 Team Status: Inactive Member Role/Relationship Status Dates Dr. Key Jasso MD Primary Care Provider Active Start: January 05, 2025 End: January 05, 2025 Dr. Key Jasso MD Referring Provider Active St art: January 05, 2025 End: January 05, 2025 Dr. Per Pond MD Attending Provider Active Start: January 05, 2025 End: January 05, 2025 Team Status: Inactive Member Role/Relationship Status Dates Dr. Key Jasso MD Primary Care Provider Active Start: January 05, 2025 End: January 05, 2025 Dr. Calixto Cardona MD Attending Provider Active S tart: January 05, 2025 End: January 05, 2025 Team Status: Inactive Member Role/Relationship Status Dates Dr. Key Jasso MD Primary Care Provider Active Start: January 12, 2025 End: January 12, 2025 Dr. Per Pond MD Attending Provider Active Start: January 12, 2025 End: January 12, 2025 Dr. Per Pond MD Referring Provider Active Start: January 12, 2025 End: January 12, 2025 Team Status: Inactive Member Role/Relationship Status Dates Dr. Key Jasso MD Primary Care Provider Active Start: March 07, 2025 End: March 07, 2025 Dr. Key Jasso MD Attending Provider Active St art: March 07, 2025 End: March 07, 2025 Dr. Key Jasso MD Referring Provider Active St art: March 07, 2025 End: March 07, 2025 Team Status: Active Member Role/Relationship Status Dates Dr. Key Jasso MD Primary Care Provider Active Start: March 17, 2025 Dr. Key Jasso MD Attending Provider Active St art: March 17, 2025 Dr. Key Jasso MD Referring Provider Active St art: March 17, 2025 Team Status: Inactive Member Role/Relationship Status Dates Dr. Key Jasso MD Primary Care Provider Active Start: March 17, 2025 End: March 17, 2025 Dr. Key Jasso MD Attending Provider Active St art: March 17, 2025 End: March 17, 2025 Dr. Key Jasso MD Referring Provider Active St art: March 17, 2025 End: March 17, 2025 <item><item><item> Privacy Markings (unrecogniz ed section and content) Section Author: Breana Waldron PROHIBITION ON REDISCLOSURE OF CONFIDENTIAL INFORMATION This notice accompanies a disclosure of information concerning a client made to you with the consent of such client. Section Author: Breana Waldron PROHIBITION ON REDISCLOSURE OF CONFIDENTIAL INFORMATION This notice accompanies a disclosure of information concerning a client made to you with the consent of such client. Section Author: Breana Waldron PROHIBITION ON REDISCLOSURE OF CONFIDENTIAL INFORMATION This notice accompanies a disclosure of information concerning a client made to you with the consent of such client. (unrecognized sect ion and content) No Status Records FoundNo Status Records FoundNo Status Records FoundNo Status Records FoundNo Status Records FoundNo Status Records FoundNo Status Records Found INFORMATION SOURCE (unrecogn ized section and content) DATE CREATED AUTHOR 12/24/2022 [facility] DATE CREATED AUTHOR AUTHOR'S ORGANIZ ATION 05/05/2023 [facility] DATE CREATED AUTHOR AUTHOR'S ORGANIZ ATION 05/05/2023 [facility] DATE CREATED AUTHOR AUTHOR'S ORGANIZ ATION 07/07/2023 [facility] DATE CREATED AUTHOR AUTHOR'S ORGANIZ ATION 07/03/2024 [facility] DATE CREATED AUTHOR AUTHOR'S ORGANIZ ATION 10/04/2024 [facility] DATE CREATED AUTHOR AUTHOR[facility]S [facility]IZ ATION [facility] Reason for Visit (unrecogniz ed section and content) Specialty Diagnoses / Procedures Referred By Contac t Referred To Contact Radiology Diagnoses Inflammatory conditions of jaws Procedures CT maxillofacial bones wo IV contrast CT maxillofacial bones w IV contrast CT maxillofacial bones [place] [address] [place] [address] Referral ID Status Reason Start Date Expiration Date Visits Requested Visits Authorized [id number] Authorized Perform Procedure 05/15/2023 11/11/2023 1 1 Reason Comments Follow-up Reason Comments Other PALATE DEBRIDEMENT 1 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 This clinical summary was aggregated from multiple sources. Caution should be exercised in using it in the provision of clinical care. This summary normalizes information from multiple sources, and as a consequence, information in this document may materially change the coding, format and clinical context of patient data. In addition, data may be omitted in some cases. CLINICAL DECISIONS SHOULD BE BASED ON THE PRIMARY CLINICAL RECORDS. [employer] provides no warranty or guarantee of the accuracy or completeness of information in this document.
--- NOTE | 2025-06-03 14:47 | CT_ITS ---
PROCEDURE: CT ABDOMEN/PELVIS W IV CONT ONLY 06/03/2025 REASON FOR EXAM: RIGHT SIDED PAIN TECHNIQUE: Procedure Code: [id number] Modality: CT Procedure: ABDOMEN/PELVIS W IV CONT ONLY Coronal and Sagittal reconstruction series were provided. CONTRAST: Isovue 300 VOLUME: 98 mL One or more dose reduction techniques were used (e.g., Automated exposure control, adjustment of the mA and/or kV according to patient size, use of iterative reconstruction technique. RADIATION DOSE SUMMARY: DLP: 1520.17 mGycm COMPARISON: None. FINDINGS: Lung bases: Scattered bibasilar linear/discoid atelectasis. Liver: Hepatic steatosis. Otherwise unremarkable. Gallbladder: Distended with internal hyperdense dependent tiny gallstones and/or sludge. Mild pericholecystic wall thickening/edema consistent with acute cholecystitis. No biliary ductal dilatation. Spleen: Normal size and morphology. Pancreas: Diffuse age-related fatty atrophy. Scattered parenchymal calcifications, suggesting sequelae of prior/chronic pancreatitis. No peripancreatic inflammation/edema. Adrenals: Unremarkable. Kidneys: Symmetric enhancement. Mildly atrophic. No urolithiasis or hydronephrosis. Bladder: Unremarkable. Reproductive Organs: Unremarkable, nonenlarged prostate. Bowel: No evidence of obstruction. Normal appendix. Probable mild reactive duodenitis secondary to the adjacent pericholecystic inflammatory changes. Localized fat stranding about a locule fat along the descending colon (S2 image 79) in the left midabdomen consistent with epiploic appendagitis. Lymph nodes: No enlarged abdominopelvic lymph nodes. Vasculature: Normal caliber abdominal aorta. Mild atherosclerotic disease. Multiple lower abdominal wall superficial venous collaterals. Peritoneum / Retroperitoneum: No ascites or free air. Bones: Moderate-advanced multilevel degenerative changes of the spine with DISH. Chronic grade 2 anterolisthesis of L5 on S1 with bulky ankylosing osteophytosis. CT/Abdomen/Pelvis W IV Cont ONLY IMPRESSION: 1. Acute cholecystitis. No biliary ductal dilatation. 2. Epiploic appendagitis of the descending colon the left midabdomen. 3. Diffuse hepatic steatosis. Ancillary findings as noted above. Reading Location: [id number]
--- NOTE | 2025-06-03 14:52 | ED.VIS.GI ---
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 He states it was more of a sudden onset but gradually getting worse. He had his states that they called his primary care provider, Dr. Enzo Jasso, who stated there is concern for appendicitis. He denies any fevers or chills, no nausea or vomiting, no exacerbating or alleviating factors. He has not noticed any gross hematuria but states that his urine is dark but has been for quite some time. No prior abdominal surgeries. He describes pain in his right lower quadrant radiating to the side. [facility] Medical History Wears glasses Non-smoker CPAP (continuous positive airway pressure) dependence Sleep apnea Hypertension DVT (deep venous thrombosis) Non-ST elevation [place] (NSTEMI) COVID-19 DVT (deep venous thrombosis) Diabetes HLD (hyperlipidemia) Type II diabetes mellitus Benign essential hypertension Home Medications ?Medication ?Instructions ?Recorded ?Last Taken ?Type acarbose 100 mg tablet (Precose) 100 mg PO BID 11/12/16 05/20/19 History atenolol 50 mg tablet 50 mg PO BID 11/12/16 05/20/19 History coenzyme Q10 100 mg capsule (Co 100 mg PO DAILY 11/12/16 05/20/19 History Q-10) dulaglutide 1.5 mg/0.5 mL 1 ml SQ WE 11/12/16 05/18/19 History subcutaneous pen injector (Trulicity) losartan 100 mg tablet 100 mg PO QHS 11/12/16 05/19/19 History magnesium oxide 400 mg PO DAILY 11/12/16 05/20/19 History cinnamon bark 500 mg capsule 500 mg PO BID 05/20/19 05/20/19 History furosemide 20 mg tablet 20 mg PO DAILY 05/20/19 05/20/19 History glimepiride 4 mg tablet 4 mg PO BID dm 05/20/19 05/20/19 History selenium 200 mcg tablet 200 mcg PO DAILY 05/20/19 05/20/19 History spironolactone 50 mg tablet 50 mg PO DAILY 05/20/19 05/20/19 History warfarin 5 mg tablet See Rx Instructions .Route .COMPLEX 05/20/19 05/19/19 History ascorbic acid (vitamin C) 1,000 mg 1 g PO DAILY 05/08/21 Unknown History tablet (Vitamin C) cholecalciferol (vitamin D3) 25 50 mcg PO DAILY 05/08/21 Unknown History mcg (1,000 unit) capsule (Vitamin D3) empagliflozin 25 mg tablet 25 mg PO DAILY 05/08/21 Unknown History (Jardiance) icosapent ethyl 1 gram capsule 2 g PO BID 05/08/21 Unknown History (Vascepa) multivitamin 1 tab PO DAILY 05/08/21 Unknown History pioglitazone 30 mg tablet 15 mg PO DAILY 05/08/21 Unknown History zinc 50 mg tablet 50 mg PO DAILY 05/08/21 Unknown History atorvastatin 20 mg tablet 20 mg PO QHS #30 tabs 05/15/21 Unknown Rx tirzepatide 10 mg/0.5 mL 8 mg subcut QWEEK 01/05/25 Unknown History subcutaneous pen injector (Mounjaro) Allergy/AdvReac Type Severity Reaction Status Date / Time No Known Allergies Allergy Verified 06/03/25 14:01 Family History Father Heart disease Mother CVA (cerebral vascular accident) Surgical History History of surgical procedure on mouth Hx of tonsillectomy History of back surgery Social History Smoking Status: Never smoker substance use type: does not use ROS ROS ED ROS Narrative Review of systems is positive for right flank/right lower quadrant abdominal pain. No fevers or chills, no nausea or vomiting, no diarrhea, no exacerbating or alleviating factors. EXAM Physical Exam Narrative Exam Narrative: Afebrile. Vital signs noted. Nontoxic-appearing. Cardiovascular examination reveals a regular rate and rhythm. Lungs are clear to auscultation bilaterally. The abdomen is soft and tender in the right lower quadrant. Negative Moreno sign. No pain in epigastrium. Mild tenderness right flank. No crepitance. Neurological examination nonfocal, nonlateralizing. Const Vital Signs: 06/03/25 14:01 06/03/25 16:01 06/03/25 18:00 Temperature 98.3 F Temperature Source Oral Pulse Rate 80 78 Respiratory Rate 18 16 Blood Pressure 113/85 H 141/68 H 131/65 H Blood Pressure Mean 94 92 87 Pulse Ox 98 99 91 Oxygen Delivery Method Room Air Room Air Oxygen Flow Rate (L/min) 06/03/25 19:30 06/03/25 19:31 Temperature Temperature Source Pulse Rate Respiratory Rate Blood Pressure Blood Pressure Mean Pulse Ox 88 96 Oxygen Delivery Method Room Air Nasal Cannula Oxygen Flow Rate (L/min) 2 MDM MDM MDM Narrative Medical decision making narrative: The differential diagnosis includes but not limited to acute appendicitis versus ureterolithiasis versus nonspecific flank pain versus pyelonephritis. Comprehensive workup was pursued. I ordered morphine and ondansetron and CT of the abdomen and pelvis with CBC, CMP, and lipase. I reviewed his laboratory work and he has a leukocytosis of 16.7 with hemoglobin 15.2, hematocrit 45.5. Platelet count normal at 301. CMP shows BUN of 28 creatinine slightly elevated at 1.67, glucose of 235 but normal anion gap of 13 so I doubt diabetic ketoacidosis. LFTs are normal and total bilirubin normal at 1.24. Urinalysis is negative for infection. Repeat examination shows his abdomen to remain soft. He has tenderness in the right flank. He required another additional dose of morphine. There was delay in the reading of the CT scan. I reviewed the radiology report which shows acute cholecystitis. Patient started on Zosyn. I discussed patient with Dr. Jacob with general surgery. She is unsure if the patient requires surgery versus drain, and requested INR be drawn and reversed as he takes Coumadin for DVT. Patient states he still is on warfarin, but did not take his 4 mg dose today. INR reviewed and it is subtherapeutic at 1.9. Regarding his low pulse ox of 88% on room air, he does not wear oxygen at home and is now satting well on 2 L. He states he cannot take a deep breath secondary to his abdominal pain. As he has acute cholecystitis I do feel this is valid. Chest x-ray was obtained and interpreted by myself independently which shows atelectasis and poor inspiratory effort. I reviewed the radiology report which confirms my independent interpretation. At this point in time, repeat examination does show that he feels improved. I discussed patient with Dr. Pascal for admission to the general medical floor. Patient is in stable condition. History & Record Review Discussion w/independent historian: Patient and Family () Additional record(s) reviewed:: Prior ED visit (Last ED visit 2022) Lab Data Attestation: I reviewed the patient's lab results. Labs: Laboratory Results - last 24 hr 06/03/25 06/03/25 15:05 15:10 WBC 16.7 H RBC 4.76 Hgb 15.2 Hct 45.5 MCV 95.6 H MCH 31.9 MCHC 33.4 RDW Std Deviation 49.8 H RDW Coeff of Geovanna 14.1 Plt Count 301 MPV 9.7 Immature Gran % (Auto) 0.700 Neut % (Auto) 88.4 H Lymph % (Auto) 2.7 L [place] % (Auto) 8.0 Eos % (Auto) 0.0 Baso % (Auto) 0.2 Absolute Neuts (auto) 14.7 H Absolute Lymphs (auto) 0.45 L Nucleated RBC % 0 PT 22.1 H INR 1.9 Sodium 136 Potassium 4.5 Chloride 99 Carbon Dioxide 23.6 Anion Gap 13 BUN 28 H Creatinine 1.67 H Estim Creat Clear Calc 55.12 Est GFR (MDRD) Non-Af 43 L BUN/Creatinine Ratio 16.6 Glucose 235 H Calcium 9.9 Total Bilirubin 1.24 AST 23 ALT 19 Alkaline Phosphatase 80 Total Protein 7.4 Albumin 3.9 Globulin 3.5 Albumin/Globulin Ratio 1.1 Urine Color Yellow Urine Clarity Clear Urine pH 5.0 Ur Specific [place] 1.020 Urine Protein 30 H Urine Glucose (UA) 1000 H Urine Ketones Negative Urine Occult Blood 10 H Urine Nitrite Negative Urine Bilirubin Negative Urine Urobilinogen Normal Ur Leukocyte Esterase Negative Urine RBC 0 SEEN Urine WBC 0 SEEN Ur Squamous Epith Cells 0 SEEN Urine Bacteria 0 SEEN Urine Mucus 0 SEEN Radiography Diagnostic Testing: Clinical Impression(s) from Imaging Studies Abdomen/Pelvis CT 06/03/25 14:47 IMPRESSION: 1. Acute cholecystitis. No biliary ductal dilatation. 2. Epiploic appendagitis of the descending colon the left midabdomen. 3. Diffuse hepatic steatosis. Ancillary findings as noted above. Reading Location: [id number] Chest X-Ray 10/18/25 19:51 IMPRESSION: Shallow inspiration with bibasilar atelectasis. Reading Location: [id number] Management Discussion w/another healthcare provider: Hospitalist (Dr. Pascal) and Housekeeping Aid (General surgery, Dr. Anny Jacob) Discharge Plan Dx/Rx/DC Orders Clinical Impression: Acute cholecystitis, Diabetes, Acute hypoxemic respiratory failure Disposition Disposition: Acute Care Hospital [facility]
[2025-06-03] MEDS: 0.9% Normal Saline (1000mL) 1,000 ML 999 ML IV (15:02)
[2025-06-03 15:19] LABS: Mucous, Urine 0 SEEN /hpf (<or=2+); Red Blood Cells-Urine 0 SEEN /hpf (0-5); Squamous Epithelial Cells - UA 0 SEEN /hpf (0-5)
[2025-06-03 15:28] LABS: Hematocrit 45.5 % (40-54); Hemoglobin 15.2 g/dL (13.0-16.5); Immature Granulocytes Count 0.120 X10^3/uL (0.0-0.0); Mean Corp Hgb Conc 33.4 g/dL (32-36); Mean Corpuscular Volume 95.6 fL (80-94); Mean Platelet Vol. 9.7 fl (6.2-12.0); NRBC Flagged by Analyzer 0 % (0-5); POSITIVE DIFFERENTIAL YES; Platelet Count 301 K/mm3 (150-450); RBC Distribution Width CV 14.1 % (11.6-14.6); RBC Distribution Width SD 49.8 fl (35.1-43.9); Red Blood Count 4.76 M/mm3 (4.6-6.2); White Blood Count 16.7 K/mm3 (4.4-11.0)
[2025-06-03 15:35] LABS: Color, Urine Yellow (Yellow); Glucose, Dipstick 1000 mg/dl (Normal); Ketone-Dipstick Negative (Negative); Leukocyte Esterase-Dipstick Negative /ul (Negative); Nitrite-Dipstick Negative (Negative); Occult Blood-Urine 10 /ul (Negative); Protein-Dipstick 30 mg/dl (Negative); Specific Gravity, Urine 1.020 (1.002-1.030); Urine Bilirubin Dipstick Negative (Negative)
[2025-06-03 15:47] LABS: AST(SGOT) 23 U/L (<=37); Alanine Aminotransfer ALT/SGPT 19 U/L (<=46); Albumin, Serum 3.9 g/dL (3.4-4.8); Alkaline Phosphatase 80 U/L (40-129); Anion Gap 13 (5-15); BUN 28 mg/dL (4-19); BUN/Creat Ratio 16.6 RATIO (10-20); Calcium,Total 9.9 mg/dL (7.6-11.0); Carbon Dioxide 23.6 mmol/L (21.0-32.0); Chloride 99 mmol/L (98-108); Estimated Creatinine Clearance 55.12 ml/min (50-250); Globulin 3.5 g/dL (2.2-4.2); Glucose 235 mg/dL (70-99); Potassium 4.5 mmol/L (3.3-5.1)
--- NOTE | 2025-06-03 19:51 | RAD_ITS ---
PROCEDURE: CHEST 1 VIEW (PORTABLE) 06/03/2025 REASON FOR EXAM: SHORTNESS OF BREATH TECHNIQUE: Frontal view of the chest. COMPARISON: None. FINDINGS: Lungs/Pleura: Shallow inspiration with associated bronchovascular crowding and bibasilar streaky subsegmental atelectasis. No pneumothorax or large pleural effusion. Heart/Mediastinum: Likely within normal limits given technique. Bones/Soft tissues: Mild degenerative changes of the spine. RAD/Chest 1 View (Portable) IMPRESSION: Shallow inspiration with bibasilar atelectasis. Reading Location: [id number]
[2025-06-03 20:10] LABS: Prothrombin Time (Protime)PT. 22.1 SECONDS (11.7-14.9)
[2025-06-03] MEDS: Piperacil/Tazobactam 3.375 GM in 0.9% Normal Saline (50mL MB+) 50 ML IV (20:14)
--- NOTE | 2025-06-03 20:26 | PCM.HP.STD ---
HPI - General General Date of Admission: 06/03/25 Date of Service: 06/03/25 Chief Complaint: abdominal pain HPI Narrative BRENDON DAVID, is a 74 M with a PMh as outlined who was admitted with a complaint of abdominal pain. Pain was initially in the right side of the abdomen and started the night before admission. Abdominal pain was sudden in onset and and had gradually worsened. Pain did not have any aggravating or relieving factors. He denied any fever, chills, nausea, vomiting or any other symptoms. Review of systems is otherwise negative. He called his PCP who was concerned about appendicitis so he was brought in to the ED. Vitals in the ED were temperature of 98.3 Fahrenheit, pulse rate of 78, blood pressure 131/65 and respirate rate of 16. He was saturating at 96% on 2 L of oxygen by nasal cannula. CBC showed hemoglobin of 15.2 with WBC of 16.7 and platelets of 301. Chemistry showed sodium of 136 with potassium of 4.5 and bicarb of 23.6. Creatinine is 1.67. Urinalysis showed no evidence of UTI. Chest x-ray showed shallow inspiration with bibasilar atelectasis and CT abdomen and pelvis showed evidence of acute cholecystitis and no biliary ductal dilatation and epiploic appendagitis of the descending colon of the left abdomen with diffuse hepatic steatosis. He has been admitted to be managed for acute cholecystitis. [facility] Medical History Wears glasses Non-smoker CPAP (continuous positive airway pressure) dependence Sleep apnea Hypertension DVT (deep venous thrombosis) Non-ST elevation [place] (NSTEMI) COVID-19 DVT (deep venous thrombosis) Diabetes HLD (hyperlipidemia) Type II diabetes mellitus Benign essential hypertension Home Medications ?Medication ?Instructions ?Recorded ?Last Taken ?Type acarbose 100 mg tablet (Precose) 100 mg PO BID . 11/12/16 05/20/19 History atenolol 50 mg tablet 50 mg PO BID BLOOD PRESSURE 11/12/16 05/20/19 History losartan 100 mg tablet 100 mg PO QHS BP 11/12/16 05/19/19 History cinnamon bark 500 mg capsule 500 mg PO BID . 05/20/19 05/20/19 History furosemide 20 mg tablet 20 mg PO DAILY WATER PILL 05/20/19 05/20/19 History glimepiride 4 mg tablet 4 mg PO BID dm 05/20/19 05/20/19 History warfarin 5 mg tablet 4 mg PO DAILY HX DVT 05/20/19 05/19/19 History ascorbic acid (vitamin C) 1,000 mg 1 g PO DAILY . 05/08/21 Unknown History tablet (Vitamin C) cholecalciferol (vitamin D3) 25 50 mcg PO DAILY REPLACEMENT 05/08/21 Unknown History mcg (1,000 unit) capsule (Vitamin D3) multivitamin 1 tab PO DAILY SUPPLEMENT 05/08/21 Unknown History pioglitazone 30 mg tablet 15 mg PO DAILY . 05/08/21 Unknown History atorvastatin 20 mg tablet 20 mg PO QHS CHOLESTEROL #30 tabs 05/15/21 Unknown Rx tirzepatide 10 mg/0.5 mL 10 mg subcut QWEEK DM 01/05/25 Unknown History subcutaneous pen injector (Mounjaro) alpha lipoic acid 600 mg capsule 600 mg PO BID . 06/03/25 Unknown History finerenone 20 mg tablet (Kerendia) 20 mg PO DAILY . 06/03/25 Unknown History hydralazine 50 mg tablet 50 mg PO QHS BP 06/03/25 Unknown History levothyroxine 50 mcg tablet 50 mcg PO DAILY THY 06/03/25 Unknown History Allergy/AdvReac Type Severity Reaction Status Date / Time No Known Allergies Allergy Verified 06/03/25 14:01 Family History Father Heart disease Mother CVA (cerebral vascular accident) Surgical History History of surgical procedure on mouth Hx of tonsillectomy History of back surgery Social History Smoking Status: Never smoker substance use type: does not use ROS Constitutional Constitutional: Reports chills, fatigue, malaise and weakness; Denies anorexia Eyes Eyes: Denies change in vision ENT HEENT: Denies headache(s) Cardiovascular Cardiovascular: Denies chest pain, dyspnea on exertion, edema, lightheadedness, orthopnea, palpitations, paroxysmal nocturnal dyspnea or rapid heart rate Respiratory/Chest Respiratory/Chest: Denies cough, dyspnea, shortness of breath at rest or shortness of breath with exertion Gastrointestinal Gastrointestinal: Reports abdominal pain; Denies constipation, diarrhea, nausea or vomiting Genitourinary Genitourinary: Denies burning urination or dysuria Musculoskeletal Musculoskeletal: Denies back pain or joint pain Neurologic Neurologic: Denies confusion, dizziness, focal weakness, headache(s), numbness, seizures or syncope Psychiatric Psychiatric: Denies anxiety or depression Vital Signs Vital Signs Vital Signs: 06/03/25 14:01 06/03/25 16:01 06/03/25 18:00 Temperature 98.3 F Temperature Source Oral Pulse Rate 80 78 Respiratory Rate 18 16 Blood Pressure 113/85 H 141/68 H 131/65 H Blood Pressure Mean 94 92 87 Pulse Ox 98 99 91 Oxygen Delivery Method Room Air Room Air Oxygen Flow Rate (L/min) 06/03/25 19:30 06/03/25 19:31 Temperature Temperature Source Pulse Rate Respiratory Rate Blood Pressure Blood Pressure Mean Pulse Ox 88 96 Oxygen Delivery Method Room Air Nasal Cannula Oxygen Flow Rate (L/min) 2 Weight Weight: 273 lb Body Mass Index (BMI) 36.0 Physical Exam Const alert, oriented x3 and no apparent distress General Appearance: cooperative HEENT normocephalic, head/scalp atraumatic, moist oral mucous membranes and oropharynx normal Mouth: oral and palatal mucosa normal Eyes EOMs intact bilaterally and conjunctivae normal Neck supple and no JVD Resp Resp Narrative: moderately diminished breath sounds bibasally, no wheezes or crackles. On 2L of oxygen by nasal canula Cardio regular rate, regular rhythm, S1 normal heart sound, S2 normal heart sound and no murmurs GI normal to inspection, nondistended, normoactive bowel sounds, soft to palpation and non-distended GI Narrative: RUQ and epigastric tenderness, no guarding or rebound tenderness. Positive Moreno's sign Extremity normal to inspection, full ROM and no clubbing, cyanosis or edema Neuro CN's II-XII intact bilaterally and moves all extremities Sensorium / Orientation: awake and alert Motor Exam: strength 5/5 throughout Psych affect normal Results Lab / Micro Data 06/04/25 03:42 06/04/25 03:42 Labs: Laboratory Results - last 24 hr 06/03/25 15:05: WBC 16.7 H, RBC 4.76, Hgb 15.2, Hct 45.5, MCV 95.6 H, MCH 31.9, MCHC 33.4, RDW Std Deviation 49.8 H, RDW Coeff of Geovanna 14.1, Plt Count 301, MPV 9.7, Immature Gran % (Auto) 0.700, Neut % (Auto) 88.4 H, Lymph % (Auto) 2.7 L, [place] % (Auto) 8.0, Eos % (Auto) 0.0, Baso % (Auto) 0.2, Absolute Neuts (auto) 14.7 H, Absolute Lymphs (auto) 0.45 L, Nucleated RBC % 0, PT 22.1 H, INR 1.9, Sodium 136, Potassium 4.5, Chloride 99, Carbon Dioxide 23.6, Anion Gap 13, BUN 28 H, Creatinine 1.67 H, Estim Creat Clear Calc 55.12, Est GFR (MDRD) Non-Af 43 L, BUN/Creatinine Ratio 16.6, Glucose 235 H, Calcium 9.9, Total Bilirubin 1.24, AST 23, ALT 19, Alkaline Phosphatase 80, Total Protein 7.4, Albumin 3.9, Globulin 3.5, Albumin/Globulin Ratio 1.1 06/03/25 15:10: Urine Color Yellow, Urine Clarity Clear, Urine pH 5.0, Ur Specific [place] 1.020, Urine Protein 30 H, Urine Glucose (UA) 1000 H, Urine Ketones Negative, Urine Occult Blood 10 H, Urine Nitrite Negative, Urine Bilirubin Negative, Urine Urobilinogen Normal, Ur Leukocyte Esterase Negative, Urine RBC 0 SEEN, Urine WBC 0 SEEN, Ur Squamous Epith Cells 0 SEEN, Urine Bacteria 0 SEEN, Urine Mucus 0 SEEN Imaging Radiology Impression Abdomen/Pelvis CT 06/03/25 14:47 IMPRESSION: 1. Acute cholecystitis. No biliary ductal dilatation. 2. Epiploic appendagitis of the descending colon the left midabdomen. 3. Diffuse hepatic steatosis. Ancillary findings as noted above. Reading Location: [facility] Chest X-Ray 06/03/25 19:51 IMPRESSION: Shallow inspiration with bibasilar atelectasis. Reading Location: [facility] Assessment & Plan Assessment/Plan (1) Acute cholecystitis: PLAN: Plan #Acute cholecystitis admitted with a complaint of epigastric and RUQ pain. CT abdomen adn pelvis showed acute cholecystitis with no biliary ductal dilatation and epiploic appendagitis of the descending colon of the left midabdomen with diffuse hepatic steatosis Admit to [facility]. Hold Coumadin. INR is 1.9. Get blood cultures. Started on IV Zosyn in the ED. Will continue. P.o. Tylenol, IV morphine and p.o. oxycodone as needed for pain. Hydrate with IV fluid normal saline at 150 cc/h. General surgery consulted. wbc is 16.7 #Hypoxia currently on 2L of oxygen. does not wear xygen at home. Due to patient taking in shallow breaths due to abdominal pain. CXR showed evidence of atelectasis and evidence of shallow inspiration with bibasilar atelectasis. encourage incentive spirometry use breathing treatment with bronchodilators titrate oxygen to maintain sats >90% #History of venous thromboembolism: On Coumadin. INR is 1.9. Will hold Coumadin as he may hve surgery tomorrow. #Hypertension: On atenolol and spironolactone as well as losartan and hydralazine. #Hypothyroidism: on synthroid. #Hyperlipidemia: On atorvastatin and Vascepa #Type 2 diabetes mellitus: Hold glimepiride and Actos. Insulin sliding scale. Accu-Cheks ACHS. Also hold pioglitazone DVT prophylaxis: hold coumadin. INR is 1.9. SCDs Code status: full code Patient counseled extensively about different types of CODE STATUS including full code, DNR CCA and DNR CCA. Patient elects to be full code. Total [id number] time 16 minutes. Charges/Coding Visit Charges Inpatient E&M: 84250 Init Hosp L3 Procedures Hospitalists Procedures: 81609 Advncd Care Plan 30 Min
--- OUTSIDE RECORDS SUMMARY | 2025-06-03 20:55 | XMS RPT_ITS | CCD ---
Author Organization [facility] CliniSyri Care Team Providers Care Network Architect Manager Name Role Phone Unknown, Unknown Unavailable Unavailable [...] Dr. Key Jasso Primary Care Unavailable Timo, Wesley Chapel Attending Unavailable Timo, Wesley Chapel Admitting Unavailable Timo, Wesley Chapel Referring Unavailable UNKNOWN, PCP Referring Unavailable Dr. Key Jasso Primary Care Unavailable NATIVIDAD RODRIGUEZ Attending Unavailable NATIVIDAD RODRIGUEZ Admitting Unavailable Dr. Key Jasso Primary Care Unavailable Timo, Wesley Chapel Attending Unavailable Timo, Wesley Chapel Admitting Unavailable Timo, Wesley Chapel Referring Unavailable NATIVIDAD RODRIGUEZ Attending Unavailable Dr. Kye Jasso Primary Care Unavailable Timo, Uriah Attending Unavailable UNKNOWN, UNKNOWN Primary Care Unavailable Dr. Key Jasso Primary Care Unavailable NATIVIDAD RODRIGUEZ Attending Unavailable Dr. Key Jasso Primary Care Unavailable Dr. Key Jasso Referring Unavailable Timo, Wesley Chapel Attending Unavailable Timo, Uriah Attending Unavailable UNKNOWN, UNKNOWN Primary Care Unavailable NATIVIDAD RODRIGUEZ Referring Unavailable Dr. Key Jasso Primary Care Unavailable Dr. Sadia Dickson Attending Unav ailable Romero, Dr. Key Das Primary Care Unavailable Skip, Dr. Sadia Cabrera Referring Unav elsyable Skip, Dr. Sadia Cabrera Attending Unav elsyable Romero, Dr. Giraldo A Primary Care Unavailable Timo, Uriah Attending Unavailable Timo, Wesley Chapel Referring Unavailable Romero, Dr. Key Das Referring [...] Dr. Giraldo Attending Provider [phone] Key Jasso MD Referring Provider [phone] [...] ON FILE] Propensity to adverse reactions (disorder) [facility] 2 Repository Medications Current Medications Medication Drug [...] Start: 11-12-2016 take 50-100 mg by mo [facility] three times daily at mealtime Acarbose (Precose) [...] - .Meds to Beds - .Patient Location [place] [address] Quantity: 30 Refills: 0 Ordered: 09-Dec-2022 Cathie [...] - .Meds to Beds - .Patient Location [place] [address]; Quantity: 30 Refills: 0 Ordered: 09-Dec-2022 Cathie [...] prescribed may cause serious breathing problems. Caution [employer] law prohibits the transfer of this drug [...] - .Meds to Beds - .Patient Location [place] [address] Quantity: 1 Refills: 0 Ordered: 09-Dec-2022 Cathie [...] (14 mg) by mouth. 05/25/2023 Active sennosides, snf 8.6 mg oral tablet (2 sources) Start: 12-09-2022 senna (sennosi kalen) 8.6 mg oral tablet ; 1 tab(s) by gastrostomy tube once a day (at bedtime) -. - .Meds to Beds - .Patient Location [place] [address] Quantity: 15 Refills: 0 Ordered: 09-Dec-2022 Cathie Gregory Start: 09-Dec-2022 Generic Substitution Allowed sodium chloride 0.111 meq/ml nasal spray (7 sources) Start: 12-09-2022 [place] 0.65% na ashley spray ; 2 spray(s) intranasally 4 to 6 times a day -.ADOD12/10 - .Meds to Beds - .Patient Location [place] [address] Quantity: 1 Refills: 2 Ordered: 09-Dec-2022 Cathie Gregory Start: 09-Dec-2022 Generic Substitution Allowed Comments: For the nose. 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] 01-07-2023 Episodic Other aftercare (1 source) Long-term current use of aspirin; 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: [detention (current) use of aspirin] 01-07-2023 Episodic Other aftercare (1 source) Long-term current use of oral hypoglycemic medication; 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 drugs] 01-07-2023 [...] 05-23-2021 Episodic Other skin disorders (18 sources) [place] - lesion ; 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: [Corns and callosities] [...] Chronic Unclassified (2 sources) MAXILLA DEBRIDEMENT M27.2 02490 11-10-2022 Comment on above: MAXILLA DEBRIDEMENT M27.2 40820 Unclassified (2 sources) Body mass index [BMI] [...] Onset: 11-24-2024 Episodic Other aftercare (1 source) detention (current) use of anticoagulants; 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] Onset: 12-31-2022 Episodic Other aftercare (1 source) detention (current) use of oral hypoglycemic drugs; 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 drugs] Onset: 12-31-2022 Episodic Other aftercare (1 source) 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; 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: [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] Onset: 12-31-2022 Episodic Other aftercare (1 source) Other superintendent terminal (current) drug therapy; 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: [Other superintendent terminal (current) drug therapy] Onset: 11-12-2022 Episodic Other [...] Auto (Unsp spec) [#/Vol] 1.16 10*3/uL 0.83-4.51 [facility] Absolute neutrophil countOrd ered By: Key Jasso on 03-17-2025 Neutrophils (Bld) [#/Vol] 7.6 10*3/uL 2.0-7.7 [facility] Anion gap in Serum or Plasma Ordered By: Key Jasso on 03-17-2025 Anion gap [Moles/Vol] 12 mmol/L 5-15 [facility] Automated lymphocyte count a s percentage of total leukocytesOrdered By: Key Jasso on 03-17-2025 Lymphocytes/100 WBC Auto (Unsp spec) 12.0 % Low 19-41 [facility] BUN/creatinine ratioOrdered By: Key Jasso on 03-17-2025 Urea nitrogen/Creatinine [Mass ratio] 22.0 mg/mg High 10-20 [facility] Basophil percentageOrdered B y: Key Jasso on 03-17-2025 Basophils/100 WBC (Bld) 0.4 % 0-1 [facility] Bilirubin, totalOrdered By: Key Jasso on 03-17-2025 Bilirubin [Mass/Vol] 0.46 mg/dL 0.00-1.30 [facility] CBC W/Diff, Automatedon Absolute Lymph 1.16 X10 3/uL Normal 0.83-4.51 [facility] Comment on above: Order Comment: Order Date: 03/14/25Order Info: 018- - CBCD Performed By: #### L 500.4050, L501.9985, L100.0100 ####[facility] [address] [place], [address] Absolute Neut 7.6 X10 3/uL Normal 2.0-7.7 [facility] Comment on above: Order Comment: Order Date: 03/14/25Order Info: 0184- - CBCD Performed By: #### L 500.4050, L501.9985, L100.0100 ####[facility] [address] [place], [address] Basophils/100 WBC (Bld) 0.4 % Normal 0-1 [facility] Comment on above: Order Comment: Order Date: 03/14/25Order Info: 0184-1 - CBCD Performed By: #### L 500.4050, L501.9985, L100.0100 ####[facility] [address] [place], [address] Eosinophils/100 WBC (Bld) 0.4 % Normal 0-5 [facility] Comment on above: Order Comment: Order Date: 03/14/25Order Info: 0184-1 - CBCD Performed By: #### L 500.4050, L501.9985, L100.0100 ####[facility] [address] [place], [address] Erythrocyte distribution width (RBC) [Ratio] 14.6 % Normal 11.6-14.6 [facility] Comment on above: Order Comment: Order Date: 03/14/25Order Info: 0184-1 - CBCD Performed By: #### L 500.4050, L501.9985, L100.0100 ####[facility] [address] [place], [address] Hematocrit (Bld) [Volume fraction] 44.4 % Normal 40-54 [facility] Comment on above: Order Comment: Order Date: 03/14/25Order Info: 0184-1 - CBCD Performed By: #### L 500.4050, L501.9985, L100.0100 ####[facility] [address] [place], [address] Hemoglobin (Bld) [Mass/Vol] 14.7 g/dL Normal 13.0-16.5 [facility] Comment on above: Order Comment: Order Date: 03/14/25Order Info: 0184-1 - CBCD Performed By: #### L 500.4050, L501.9985, L100.0100 ####[facility] [address] [place], [address] IG% 1.400 High 0.0-0.9 [facility] Comment on above: Order Comment: Order Date: 03/14/25Order Info: 0184-1 - CBCD Result Comment: IG% - Immature Granulocytes (promyelocytes, myelocytes and metamyelocytes) > 1% indicates that a LEFT SHIFT is Present. Performed By: #### L 500.4050, L501.9985, L100.0100 ####[facility] [address] [place], [address] Lymphocytes/100 WBC (Bld) 12.0 % Low 19-41 [facility] Comment on above: Order Comment: Order Date: 03/14/25Order Info: 0184-1 - CBCD Performed By: #### L 500.4050, L501.9985, L100.0100 ####[facility] [address] [place], [address] MCH (RBC) [Entitic mass] 31.6 pg Normal 27.0-32.0 [facility] Comment on above: Order Comment: Order Date: 03/14/25Order Info: 4-1 - CBCD Performed By: #### L 500.4050, L501.9985, L100.0100 ####[facility] [address] [place], [address] MCHC (RBC) [Mass/Vol] 33.1 g/dL Normal 32-36 [facility] Comment on above: Order Comment: Order Date: 03/14/25Order Info: 183- - CBCD Performed By: #### L 500.4050, L501.9985, L100.0100 ####[facility] [address] [place], [address] MCV (RBC) [Entitic vol] 95.5 fL High 80-94 [facility] Comment on above: Order Comment: Order Date: 03/14/25Order Info: 183- - CBCD Performed By: #### L 500.4050, L501.9985, L100.0100 ####[facility] [address] [place], [address] Monocytes/100 WBC (Bld) 6.9 % Normal 0-10 [facility] Comment on above: Order Comment: Order Date: 03/14/25Order Info: 018- - CBCD Performed By: #### L 500.4050, L501.9985, L100.0100 ####[facility] [address] [place], [address] Neutrophils/100 WBC (Bld) 78.9 % High 47-70 [facility] Comment on above: Order Comment: Order Date: 03/14/25Order Info: 0184-1 - CBCD Performed By: #### L 500.4050, L501.9985, L100.0100 ####[facility] [address] [place], [address] Nucleated RBC (Bld) [#/Vol] 0 10*3/uL Normal 0-5 [facility] Comment on above: Order Comment: Order Date: 03/14/25Order Info: 0184-1 - CBCD Performed By: #### L 500.4050, L501.9985, L100.0100 ####[facility] [address] [place], [address] Platelet mean volume (Bld) [Entitic vol] 9.8 fL Normal 6.2-12.0 [facility] Comment on above: Order Comment: Order Date: 03/14/25Order Info: 018- - CBCD Performed By: #### L 500.4050, L501.9985, L100.0100 ####[facility] [address] [place], [address] Platelets (Bld) [#/Vol] 330 10*3/uL Normal 150-450 [facility] Comment on above: Order Comment: Order Date: 03/14/25Order Info: 018- - CBCD Performed By: #### L 500.4050, L501.9985, L100.0100 ####[facility] [address] [place], [address] RBC (Bld) [#/Vol] 4.65 10*6/uL Normal 4.6-6.2 [facility] Comment on above: Order Comment: Order Date: 03/14/25Order Info: 0184-1 - CBCD Performed By: #### L 500.4050, L501.9985, L100.0100 ####[facility] [address] [place], [address] RDW SD 51.4 fl High 35.1-43.9 [facility] Comment on above: Order Comment: Order Date: 03/14/25Order Info: 018-1 - CBCD Performed By: #### L 500.4050, L501.9985, L100.0100 ####[facility] [address] [place], [address] WBC (Bld) [#/Vol] 9.7 10*3/uL Normal 4.4-11.0 [facility] Comment on above: Order Comment: Order Date: 03/14/25Order Info: 018-1 - CBCD Performed By: #### L 500.4050, L501.9985, L100.0100 ####[facility] [address] [place], [address] Carbon dioxide, total [Moles /volume] in Central venous bloodOrdered By: Key Jasso on 03-17-2025 CO2 [Moles/Vol] 22.1 mmol/L 21.0-32.0 [facility] Chloride assayOrdered By: Torito Jasso on 03-17-2025 Chloride [Moles/Vol] 102 mmol/L 98-108 [facility] Comprehensive Metabolic Prof ilon 03-17-2025 Albumin [Mass/Vol] 4.0 g/dL Normal 3.4-4.8 [facility] Comment on above: Order Comment: Order Date: 03/14/25Order Info: 0786-1 - CMPOrder Info: 3051-0 - K1WQfhkh Info: 3016-3 - TSHOrder Info: 3024-7 - T4F Performed By: #### L 500.4050, L501.9985, L100.0100 ####[facility] [address] [place], [address] Albumin/Globulin [Mass ratio] 1.4 {ratio} Normal 0.9-2.4 [facility] Comment on above: Order Comment: Order Date: 03/14/25Order Info: 0786-1 - CMPOrder Info: 3051-0 - T4MLeqpe Info: 3016-3 - TSHOrder Info: 3024-7 - T4F Performed By: #### L 500.4050, L501.9985, L100.0100 ####[facility] [address] [place], [address] ALK PHOS 57 U/L Normal 40-129 [facility] Comment on above: Order Comment: Order Date: 03/14/25Order Info: 0786-1 - CMPOrder Info: 3051-0 - I7XHxyub Info: 3016-3 - TSHOrder Info: 3024-7 - T4F Performed By: #### L 500.4050, L501.9985, L100.0100 ####[facility] [address] [place], [address] ALT [Catalytic activity/Vol] 17 U/L Normal <=46 [facility] Comment on above: Order Comment: Order Date: 03/14/25Order Info: 07-1 - CMPOrder Info: 3051-0 - K7EJtfsa Info: 63 - TSHOrder Info: 3024-7 - T4F Performed By: #### L 500.4050, L501.9985, L100.0100 ####[facility] [address] [facility] [place], [address] AST [Catalytic activity/Vol] 20 U/L Normal <=37 [facility] Comment on above: Order Comment: Order Date: 03/14/25Order Info: 0786-1 - CMPOrder Info: 1-0 - K5SRgewz Info: 3016-3 - TSHOrder Info: 3024-7 - T4F Performed By: #### L 500.4050, L501.9985, L100.0100 ####[facility] [address] [facility] [place], [address] Bilirubin [Mass/Vol] 0.46 mg/dL Normal 0.00-1.30 [facility] Comment on above: Order Comment: Order Date: 03/14/25Order Info: 0786-1 - CMPOrder Info: 3051-0 - W9MSkxhq Info: 3016-3 - TSHOrder Info: 3024-7 - T4F Performed By: #### L 500.4050, L501.9985, L100.0100 ####[facility] [address] [place], [address] BUN/CRE 22.0 RATIO High 10-20 [facility] Comment on above: Order Comment: Order Date: 03/14/25Order Info: 0786-1 - CMPOrder Info: 3051-0 - O4XQtmrt Info: 3016-3 - TSHOrder Info: 3024-7 - T4F Performed By: #### L 500.4050, L501.9985, L100.0100 ####[facility] [address] [place], [address] Calcium [Mass/Vol] 9.6 mg/dL Normal 7.6-11.0 [facility] Comment on above: Order Comment: Order Date: 03/14/25Order Info: 0786-1 - CMPOrder Info: 3051-0 - V0VEvudq Info: 3016-3 - TSHOrder Info: 3024-7 - T4F Performed By: #### L 500.4050, L501.9985, L100.0100 ####[facility] [address] [place], [address] Chloride [Moles/Vol] 102 mmol/L Normal 98-108 [facility] Comment on above: Order Comment: Order Date: 03/14/25Order Info: 0786-1 - CMPOrder Info: 3051-0 - H4SZlvcp Info: 3016-3 - TSHOrder Info: 3024-7 - T4F Performed By: #### L 500.4050, L501.9985, L100.0100 ####[facility] [address] [place], [address] CO2 [Moles/Vol] 22.1 mmol/L Normal 21.0-32.0 [facility] Comment on above: Order Comment: Order Date: 03/14/25Order Info: 07-1 - CMPOrder Info: 3050-0 - N2EHvkkf Info: 3 - TSHOrder Info: 3027 - T4F Performed By: #### L 500.4050, L501.9985, L100.0100 ####[facility] [address] [place], [place], [address] Creatinine [Mass/Vol] 1.90 mg/dL High 0.70-1.20 [facility] Comment on above: Order Comment: Order Date: 03/14/25Order Info: 07-1 - CMPOrder Info: 0 - T9JVoquj Info: 3 - TSHOrder Info: 7 - T4F Performed By: #### L 500.4050, L501.9985, L100.0100 ####[facility] [address] [place], [place], [address] GAP 12 Normal 5-15 [facility] Comment on above: Order Comment: Order Date: 03/14/25Order Info: 07- - CMPOrder Info: 0 - A1AOjbgf Info: 3015-10 - TSHOrder Info: 7 - T4F Performed By: #### L 500.4050, L501.9985, L100.0100 ####[facility] [address] [place], [place], [address] GFR/1.73 sq M.predicted among non-blacks MDRD (S/P/Bld) [Vol rate/Area] 37 mL/min/{1.73_m2} Low >60 [facility] Comment on above: Order Comment: Order Date: 03/14/25Order Info: 0786-1 - CMPOrder Info: 3051-0 - A4KFyedh Info: 30163 - TSHOrder Info: 30247 - T4F Result Comment: mL/m in/1.73m2 CKD-EPI Creatinine Equation (2020) Performed By: #### L 500.4050, L501.9985, L100.0100 ####[facility] [address] [place], [address] Globulin (S) [Mass/Vol] 2.9 g/dL Normal 2.2-4.2 [facility] Comment on above: Order Comment: Order Date: 03/14/25Order Info: 0786-1 - CMPOrder Info: 3051-0 - L1RJeuiy Info: 3015-3 - TSHOrder Info: 3024-7 - T4F Performed By: #### L 500.4050, L501.9985, L100.0100 ####[facility] [address] [facility] [place], [address] Glucose [Mass/Vol] 79 mg/dL Normal 70-99 [facility] Comment on above: Order Comment: Order Date: 03/14/25Order Info: 0786-1 - CMPOrder Info: 3050-0 - A4IWycin Info: 3 - TSHOrder Info: 3024-7 - T4F Performed By: #### L 500.4050, L501.9985, L100.0100 ####[facility] [address] [facility] [place], [address] Potassium [Moles/Vol] 4.3 mmol/L Normal 3.3-5.1 [facility] Comment on above: Order Comment: Order Date: 03/14/25Order Info: 0786-1 - CMPOrder Info: 0 - C8VLxtnp Info: 3016-3 - TSHOrder Info: 3024-7 - T4F Performed By: #### L 500.4050, L501.9985, L100.0100 ####[facility] [address] [facility] [place], [address] Sodium [Moles/Vol] 136 mmol/L Normal 133-145 [facility] Comment on above: Order Comment: Order Date: 03/14/25Order Info: 0786-1 - CMPOrder Info: 3051-0 - O7PRxbty Info: 3016-3 - TSHOrder Info: 3024-7 - T4F Performed By: #### L 500.4050, L501.9985, L100.0100 ####[facility] [address] [place], [address] T PROT 6.9 g/dL Normal 5.9-8.4 [facility] Comment on above: Order Comment: Order Date: 03/14/25Order Info: 0786-1 - CMPOrder Info: 0 - D0DPwtnn Info: 3015-10 - TSHOrder Info: 7 - T4F Performed By: #### L 500.4050, L501.9985, L100.0100 ####[facility] [address] [place], [address] Urea nitrogen [Mass/Vol] 42 mg/dL High 4-19 [facility] Comment on above: Order Comment: Order Date: 03/14/25Order Info: 785-08 - CMPOrder Info: 0 - Y1JOokfl Info: 3015-10 - TSHOrder Info: 7 - T4F Performed By: #### L 500.4050, L501.9985, L100.0100 ####[facility] [address] [place], [place], [address] Eosinophil percentageOrdered By: Key Jsaso on 03-17-2025 Eosinophils/100 WBC (Bld) 0.4 % 0-5 [facility] Erythrocyte distribution wid th ratioOrdered By: Key Jasso on 03-17-2025 Erythrocyte distribution width (RBC) [Ratio] 14.6 % 11.6-14.6 [facility] Erythrocyte distribution wid th standard deviationOrdered By: Key Jasso on 03-17-2025 Erythrocyte distribution width (RBC) [Ratio] 51.4 fl High 35.1-43.9 [facility] Free T3on 03-17-2025 Free T3 [Mass/Vol] 1.7 pg/mL Low 2.18-3.98 [facility] Comment on above: Order Comment: Order Date: 03/14/25Order Info: 0786-1 - CMPOrder Info: 0 - T8XPblif Info: 3015-10 - TSHOrder Info: 7 - T4F Performed By: #### L 506.0400, L501.84393, L501.9520 ####[facility] [address] [place], [place], [address] Free D0Wogzdwm By: Key stack on 03-17-2025 Free T3 [Mass/Vol] 1.7 pg/mL Low 2.18-3.98 [facility] Glomerular filtration rate ( GFR) estimation/1.73 sq m using serum, plasma, or whole bOrdered By: Key Jasso on 03-17-2025 GFR/1.73 sq M.predicted among non-blacks MDRD (S/P/Bld) [Vol rate/Area] 37 mL/min/{1.73_m2} Low >60 [facility] Comment on above: mL/min/1.73m2 CKD-EP I Creatinine Equation (2020) Hematocrit Auto (Bld) [Volum e fraction]Ordered By: Key Jasso on 03-17-2025 Hematocrit (Bld) [Volume fraction] 44.4 % 40-54 [facility] Hemoglobin A1con 03-17-2025 HbA1c (Bld) [Mass fraction] 6.8 % High <=5.6 [facility] Comment on above: Order Comment: Order Date: 03/14/25Order Info: 4548-4 - A1C Result Comment: Norm al < 5.7 % Prediabetic 5.7 - 6.4 % Diabetic >or= 6.5 % Please note range changes. Performed By: #### L 500.4050, L501.9985, L100.0100 ####[facility] [address] [place], [place], [address] Hemoglobin A1c percentageOrd ered By: Key Jasso on 03-17-2025 HbA1c (Bld) [Mass fraction] 6.8 % High <5.7 [facility] Comment on above: Normal < 5.7 % Predi abetic 5.7 - 6.4 % Diabetic >or= 6.5 % Please note range changes. Hemoglobin measurementOrdere d By: Key Jasso on 03-17-2025 Hemoglobin (Bld) [Mass/Vol] 14.7 g/dL 13.0-16.5 [facility] Immature granulocytes/100 WB C Auto (Bld)Ordered By: Key Jasso on 03-17-2025 Immature granulocytes/100 WBC (Bld) 1.400 % High 0.0-0.9 [facility] Comment on above: IG% - Immature Granu locytes (promyelocytes, myelocytes and metamyelocytes) > 1% indicates that a LEFT SHIFT is Present. Laboratory - Chemistry and C hemistry - challengeOrdered By: Key Jasso on 03-17-2025 AST [Catalytic activity/Vol] 20 U/L <38 [facility] MCV (mean corpuscular volume ) determinationOrdered By: Key Jasso on 03-17-2025 MCV (RBC) [Entitic vol] 95.5 fL High 80-94 [facility] Mean corpuscular hemoglobin (MCH) determinationOrdered By: Key Jasso on 03-17-2025 MCH (RBC) [Entitic mass] 31.6 pg 27.0-32.0 [facility] Mean corpuscular hemoglobin concentration (MCHC) determinationOrdered By: Key Jasso on 03-17-2025 MCHC (RBC) [Mass/Vol] 33.1 g/dL 32-36 [facility] Mean platelet volume determi nationOrdered By: Key Jasso on 03-17-2025 Platelet mean volume (Bld) [Entitic vol] 9.8 fL 6.2-12.0 [facility] Monocyte percentageOrdered B y: Key Jasso on 03-17-2025 Monocytes/100 WBC (Bld) 6.9 % 0-10 [facility] Neutrophil percentageOrdered By: Key Jasso on 03-17-2025 Neutrophils/100 WBC (Bld) 78.9 % High 47-70 [facility] [facility] Nucleated red blood cell per centageOrdered By: Key Jasso on 03-17-2025 Nucleated RBC/100 WBC (Bld) [Ratio] 0 % 0-5 [facility] Platelet countOrdered By: Torito Jasso on 03-17-2025 Platelets (Bld) [#/Vol] 330 10*3/uL 150-450 [facility] Potassium measurement (mass/ volume)Ordered By: Key Jasso on 03-17-2025 Potassium (Unsp spec) [Mass/Vol] 4.3 mmol/L 3.3-5.1 [facility] RBC Auto (Bld) [#/Vol]Ordere d By: Key Jasso on 03-17-2025 RBC (Bld) [#/Vol] 4.65 10*6/uL 4.6-6.2 [facility] Serum creatinine measurement (mass/volume)Ordered By: Key Jasso on 03-17-2025 Creatinine [Mass/Vol] 1.90 mg/dL High 0.70-1.20 [facility] Serum globulin measurementOr dered By: Key Jasso on 03-17-2025 Globulin (S) [Mass/Vol] 2.9 g/dL 2.2-4.2 [facility] Serum glucose measurement (m ass/volume)Ordered By: Key Jasso on 03-17-2025 Glucose [Mass/Vol] 79 mg/dL 70-99 [facility] Serum or plasma alanine nunez otransferase (ALT) measurementOrdered By: Key Jasso on 03-17-2025 ALT [Catalytic activity/Vol] 17 U/L <47 [facility] Serum or plasma albumin lisa urement (mass/volume)Ordered By: Key Jasso on 03-17-2025 Albumin [Mass/Vol] 4.0 g/dL 3.4-4.8 [facility] Serum or plasma albumin/glob ulin mass ratioOrdered By: Key Jasso on 03-17-2025 Albumin/Globulin [Mass ratio] 1.4 {ratio} 0.9-2.4 [facility] Serum or plasma alkaline kacy sphatase measurementOrdered By: Key Jasso on 03-17-2025 ALP [Catalytic activity/Vol] 57 U/L 40-129 [facility] Serum or plasma calcium lisa urement (mass/volume)Ordered By: Key Jasso on 03-17-2025 Calcium [Mass/Vol] 9.6 mg/dL 7.6-11.0 [facility] Serum or plasma urea nitroge n measurement (mass/volume)Ordered By: Key Jasso on 03-17-2025 Urea nitrogen [Mass/Vol] 42 mg/dL High 4-19 [facility] Sodium levelOrdered By: Key Jasso on 03-17-2025 Sodium [Moles/Vol] 136 mmol/L 133-145 [facility] T4 Free Directon 03-17-2025 T4 FREE DIRECT 0.90 ng/dL Normal 0.76-1.46 [facility] Comment on above: Order Comment: Order Date: 03/14/25Order Info: 0786-1 - CMPOrder Info: 0 - V4TIawio Info: 3015-10 - TSHOrder Info: 3024-02 - T4F Performed By: #### L 506.0400, L501.03445, L501.9520 ####[facility] [address] [place], [address] T4 freeOrdered By: Key stack on 03-17-2025 Free T4 [Mass/Vol] 0.90 ng/dL 0.76-1.46 [facility] TSH DL <= 0.005 mIU/L QnOrde red By: Key Jasso on 03-17-2025 TSH Qn 7.660 uIU/mL High 0.300-4.200 [facility] Thyroid Stim Hormone (TSH)on 03-17-2025 TSH 7.660 uIU/mL High 0.300-4.200 [facility] Comment on above: Order Comment: Order Date: 03/14/25Order Info: 0786-1 - CMPOrder Info: 0 - M6QGqiir Info: 3015-10 - TSHOrder Info: 3024-02 - T4F Performed By: #### L 506.0400, L501.41614, L501.9520 ####[facility] [address] [place], [place], [id number] Total proteinOrdered By: Colleen Jasso on 03-17-2025 Protein [Mass/Vol] 6.9 g/dL 5.9-8.4 [facility] White blood cell (WBC) count Ordered By: Key Jasso on 03-17-2025 WBC (Bld) [#/Vol] 9.7 10*3/uL 4.4-11.0 [facility] Microalb:Creat Ratio,Random URon 03-13-2025 MALB:CRE 31.4 mg/g CRE High <30 mg/g CRE [facility] Comment on above: Result Comment: AMENDED REPORT 03/13/251935 MALB:CREAT previously reported as: 313.9 mg/g CRE Performed By: #### L 502.0250, L100.0500, L500.4050 #### [facility] [address] [place], [address] Absolute lymphocyte countOrd ered By: Key Jasso on 03-07-2025 Lymphocytes Auto (Unsp spec) [#/Vol] 1.18 10*3/uL 0.83-4.51 [facility] Absolute neutrophil countOrd ered By: Key Jasso on 03-07-2025 Neutrophils (Bld) [#/Vol] 5.1 10*3/uL 2.0-7.7 [facility] Anion gap in Serum or Plasma Ordered By: Key Jasso on 03-07-2025 Anion gap [Moles/Vol] 13 mmol/L 5-15 [facility] Automated lymphocyte count a s percentage of total leukocytesOrdered By: Key Jasso on 03-07-2025 Lymphocytes/100 WBC Auto (Unsp spec) 16.9 % Low 19-41 [facility] BUN/creatinine ratioOrdered By: Key Jasso on 03-07-2025 Urea nitrogen/Creatinine [Mass ratio] 15.6 mg/mg 10-20 [facility] Basophil percentageOrdered B y: Key Jasso on 03-07-2025 Basophils/100 WBC (Bld) 0.4 % 0-1 [facility] Bilirubin, totalOrdered By: Key Jasso on 03-07-2025 Bilirubin [Mass/Vol] 0.40 mg/dL Normal 0.00-1.30 [facility] Comment on above: Order Comment: Order Date: 01/10/25Order Info: 0786-1 - CMPOrder Date: 07/11/24Order Info: 3016-3 - TSHStanding ORder Performed By: #### L 501.9520, L100.0100, L500.4050 ####[facility] [address] [place], [address] CBC W/Diff, Automatedon 07-2 -2024 Absolute Lymph 1.18 X10 3/uL Normal 0.83-4.51 [facility] Comment on above: Order Comment: Order Date: 07/11/24Order Info: 0184-1 - CBCD Performed By: #### L 501.9520, L100.0100, L500.4050 ####[facility] [address] [place], [address] Absolute Neut 5.1 X10 3/uL Normal 2.0-7.7 [facility] Comment on above: Order Comment: Order Date: 07/11/24Order Info: 0184-1 - CBCD Performed By: #### L 501.9520, L100.0100, L500.4050 ####[facility] [address] [place], [address] Basophils/100 WBC (Bld) 0.4 % Normal 0-1 [facility] Comment on above: Order Comment: Order Date: 07/11/24Order Info: 0184-1 - CBCD Performed By: #### L 501.9520, L100.0100, L500.4050 ####[facility] [address] [place], [address] Eosinophils/100 WBC (Bld) 1.4 % Normal 0-5 [facility] Comment on above: Order Comment: Order Date: 07/11/24Order Info: 0184-1 - CBCD Performed By: #### L 501.9520, L100.0100, L500.4050 ####[facility] [address] [place], [address] Erythrocyte distribution width (RBC) [Ratio] 15.0 % High 11.6-14.6 [facility] Comment on above: Order Comment: Order Date: 07/11/24Order Info: 0184-1 - CBCD Performed By: #### L 501.9520, L100.0100, L500.4050 ####[facility] [address] [place], [address] Hematocrit (Bld) [Volume fraction] 43.4 % Normal 40-54 [facility] Comment on above: Order Comment: Order Date: 07/11/24Order Info: 0184-1 - CBCD Performed By: #### L 501.9520, L100.0100, L500.4050 ####[facility] [address] [place], [address] Hemoglobin (Bld) [Mass/Vol] 14.3 g/dL Normal 13.0-16.5 [facility] Comment on above: Order Comment: Order Date: 07/11/24Order Info: 018- - CBCD Performed By: #### L 501.9520, L100.0100, L500.4050 ####[facility] [address] [place], [address] IG% 0.600 Normal 0.0-0.9 [facility] Comment on above: Order Comment: Order Date: 07/11/24Order Info: 018- - CBCD Result Comment: IG% - Immature Granulocytes (promyelocytes, myelocytes and metamyelocytes) > 1% indicates that a LEFT SHIFT is Present. Performed By: #### L 501.9520, L100.0100, L500.4050 ####[facility] [address] [place], [address] Lymphocytes/100 WBC (Bld) 16.9 % Low 19-41 [facility] Comment on above: Order Comment: Order Date: 07/11/24Order Info: 018-1 - CBCD Performed By: #### L 501.9520, L100.0100, L500.4050 ####[facility] [address] [place], [address] MCH (RBC) [Entitic mass] 31.4 pg Normal 27.0-32.0 [facility] Comment on above: Order Comment: Order Date: 07/11/24Order Info: 0184-1 - CBCD Performed By: #### L 501.9520, L100.0100, L500.4050 ####[facility] [address] [place], [address] MCHC (RBC) [Mass/Vol] 32.9 g/dL Normal 32-36 [facility] Comment on above: Order Comment: Order Date: 07/11/24Order Info: 0184-1 - CBCD Performed By: #### L 501.9520, L100.0100, L500.4050 ####[facility] [address] [place], [address] MCV (RBC) [Entitic vol] 95.2 fL High 80-94 [facility] Comment on above: Order Comment: Order Date: 07/11/24Order Info: 0184-1 - CBCD Performed By: #### L 501.9520, L100.0100, L500.4050 ####[facility] [address] [place], [address] Monocytes/100 WBC (Bld) 7.3 % Normal 0-10 [facility] Comment on above: Order Comment: Order Date: 07/11/24Order Info: 0184-1 - CBCD Performed By: #### L 501.9520, L100.0100, L500.4050 ####[facility] [address] [place], [address] Neutrophils/100 WBC (Bld) 73.4 % High 47-70 [facility] Comment on above: Order Comment: Order Date: 07/11/24Order Info: 0184-1 - CBCD Performed By: #### L 501.9520, L100.0100, L500.4050 ####[facility] [address] [place], [address] Nucleated RBC (Bld) [#/Vol] 0 10*3/uL Normal 0-5 [facility] Comment on above: Order Comment: Order Date: 07/11/24Order Info: 0184-1 - CBCD Performed By: #### L 501.9520, L100.0100, L500.4050 ####[facility] [address] [place], [address] Platelet mean volume (Bld) [Entitic vol] 9.9 fL Normal 6.2-12.0 [facility] Comment on above: Order Comment: Order Date: 07/11/24Order Info: 018-1 - CBCD Performed By: #### L 501.9520, L100.0100, L500.4050 ####[facility] [address] [place], [address] Platelets (Bld) [#/Vol] 275 10*3/uL Normal 150-450 [facility] Comment on above: Order Comment: Order Date: 07/11/24Order Info: 018- - CBCD Performed By: #### L 501.9520, L100.0100, L500.4050 ####[facility] [address] [place], [address] RBC (Bld) [#/Vol] 4.56 10*6/uL Low 4.6-6.2 [facility] Comment on above: Order Comment: Order Date: 07/11/24Order Info: 0184-1 - CBCD Performed By: #### L 501.9520, L100.0100, L500.4050 ####[facility] [address] [place], [address] RDW SD 52.7 fl High 35.1-43.9 [facility] Comment on above: Order Comment: Order Date: 07/11/24Order Info: 0184-1 - CBCD Performed By: #### L 501.9520, L100.0100, L500.4050 ####[facility] [address] [place], [address] WBC (Bld) [#/Vol] 7.0 10*3/uL Normal 4.4-11.0 [facility] Comment on above: Order Comment: Order Date: 07/11/24Order Info: 0184-1 - CBCD Performed By: #### L 501.9520, L100.0100, L500.4050 ####[facility] [address] [place], [address] Carbon dioxide, total [Moles /volume] in Central venous bloodOrdered By: Key Jasso on 03-07-2025 CO2 [Moles/Vol] 19.5 mmol/L Low 21.0-32.0 [facility] Comment on above: Order Comment: Order Date: 01/10/25Order Info: 0786-1 - CMPOrder Date: 07/11/24Order Info: 3016-3 - TSHStanding ORder Performed By: #### L 501.9520, L100.0100, L500.4050 ####[facility] [address] [place], [place], [address] Chloride assayOrdered By: Torito Jasso on 03-07-2025 Chloride [Moles/Vol] 105 mmol/L Normal 98-108 [facility] Comment on above: Order Comment: Order Date: 01/10/25Order Info: 0786-1 - CMPOrder Date: 07/11/24Order Info: 3016-3 - TSHStanding ORder Performed By: #### L 501.9520, L100.0100, L500.4050 ####[facility] [address] [place], [place], [address] Comprehensive Metabolic Prof ilon 03-07-2025 ALK PHOS 59 U/L Normal 40-129 [facility] Comment on above: Order Comment: Order Date: 01/10/25Order Info: 0786-1 - CMPOrder Date: 07/11/24Order Info: 3016-3 - TSHStanding ORder Performed By: #### L 501.9520, L100.0100, L500.4050 ####[facility] [address] [place], [address] BUN/CRE 15.6 RATIO Normal 10-20 [facility] Comment on above: Order Comment: Order Date: 01/10/25Order Info: 0786-1 - CMPOrder Date: 07/11/24Order Info: 3016-3 - TSHStanding ORder Performed By: #### L 501.9520, L100.0100, L500.4050 ####[facility] [address] [place], [address] GAP 13 Normal 5-15 [facility] Comment on above: Order Comment: Order Date: 01/10/25Order Info: 07- - CMPOrder Date: 07/11/24Order Info: 3016-3 - TSHStanding ORder Performed By: #### L 501.9520, L100.0100, L500.4050 ####[facility] [address] [place], [address] Potassium [Moles/Vol] 4.5 mmol/L Normal 3.3-5.1 [facility] Comment on above: Order Comment: Order Date: 01/10/25Order Info: 0786-1 - CMPOrder Date: 07/11/24Order Info: 3016-3 - TSHStanding ORder Performed By: #### L 501.9520, L100.0100, L500.4050 ####[facility] [address] [place], [address] T PROT 6.9 g/dL Normal 5.9-8.4 [facility] Comment on above: Order Comment: Order Date: 01/10/25Order Info: 0786-1 - CMPOrder Date: 07/11/24Order Info: 3016-3 - TSHStanding ORder Performed By: #### L 501.9520, L100.0100, L500.4050 ####[facility] [address] [place], [place], [address] Comprehensive Metabolic Prof ilOrdered By: Key Jasso on 03-07-2025 AST [Catalytic activity/Vol] 19 U/L Normal <=37 [facility] Comment on above: Order Comment: Order Date: 01/10/25Order Info: 0786-1 - CMPOrder Date: 07/11/24Order Info: 3016-3 - TSHStanding ORder Performed By: #### L 501.9520, L100.0100, L500.4050 ####[facility] [address] [place], [place], [address] Eosinophil percentageOrdered By: Key Jasso on 03-07-2025 Eosinophils/100 WBC (Bld) 1.4 % 0-5 [facility] Erythrocyte distribution wid th ratioOrdered By: Key Jasso on 03-07-2025 Erythrocyte distribution width (RBC) [Ratio] 15.0 % High 11.6-14.6 [facility] Erythrocyte distribution wid th standard deviationOrdered By: Key Jasso on 03-07-2025 Erythrocyte distribution width (RBC) [Ratio] 52.7 fl High 35.1-43.9 [facility] Glomerular filtration rate ( GFR) estimation/1.73 sq m using serum, plasma, or whole bOrdered By: Key Jasso on 03-07-2025 GFR/1.73 sq M.predicted among non-blacks MDRD (S/P/Bld) [Vol rate/Area] 34 mL/min/{1.73_m2} Low >60 [facility] Comment on above: mL/min/1.73m2 CKD-EP I Creatinine Equation (2020) Order Comment: Order Date: 01/10/25Order Info: 0786-1 - CMPOrder Date: 07/11/24Order Info: 3016-3 - TSHStanding ORder Result Comment: mL/m in/1.73m2 CKD-EPI Creatinine Equation (2020) Performed By: #### L 501.9520, L100.0100, L500.4050 ####[facility] [address] [place], [place], [address] Hematocrit Auto (Bld) [Volum e fraction]Ordered By: Key Jasso on 03-07-2025 Hematocrit (Bld) [Volume fraction] 43.4 % 40-54 [facility] Hemoglobin A1con 03-07-2025 HbA1c (Bld) [Mass fraction] 6.7 % High <=5.6 [facility] Comment on above: Order Comment: Order Date: 01/10/25Order Info: 4548-4 - A1C Result Comment: Norm al < 5.7 % Prediabetic 5.7 - 6.4 % Diabetic >or= 6.5 % Please note range changes. Performed By: #### L 501.9985 ####[facility] [address] [place], [address] Hemoglobin A1c percentageOrd ered By: Key Jasso on 03-07-2025 HbA1c (Bld) [Mass fraction] 6.7 % High <5.7 [facility] Comment on above: Normal < 5.7 % Predi abetic 5.7 - 6.4 % Diabetic >or= 6.5 % Please note range changes. Hemoglobin measurementOrdere d By: Key Jasso on 03-07-2025 Hemoglobin (Bld) [Mass/Vol] 14.3 g/dL 13.0-16.5 [facility] Immature granulocytes/100 WB C Auto (Bld)Ordered By: Key Jasso on 03-07-2025 Immature granulocytes/100 WBC (Bld) 0.600 % 0.0-0.9 [facility] Comment on above: IG% - Immature Granu locytes (promyelocytes, myelocytes and metamyelocytes) > 1% indicates that a LEFT SHIFT is Present. International normalized rat io (INR) calculationOrdered By: Key Jasso on 03-07-2025 INR Coag (Bld) [Relative time] 1.3 {INR} [facility] MCV (mean corpuscular volume ) determinationOrdered By: Key Jasso on 03-07-2025 MCV (RBC) [Entitic vol] 95.2 fL High 80-94 [facility] Mean corpuscular hemoglobin (MCH) determinationOrdered By: Key Jasso on 03-07-2025 MCH (RBC) [Entitic mass] 31.4 pg 27.0-32.0 [facility] Mean corpuscular hemoglobin concentration (MCHC) determinationOrdered By: Key Jasso on 03-07-2025 MCHC (RBC) [Mass/Vol] 32.9 g/dL 32-36 [facility] Mean platelet volume determi nationOrdered By: Key Jasso on 03-07-2025 Platelet mean volume (Bld) [Entitic vol] 9.9 fL 6.2-12.0 [facility] Microalb:Creat Ratio,Random URon 03-07-2025 Creatinine [Mass/Vol] 301.00 mg/dL High 39.00-259.00 [facility] Comment on above: Order Comment: Order Date: 01/10/25Order Info: [id number] - MIALB Performed By: #### L 502.0250 ####[facility] [address] [place], [place], [address] MALB:CREAT 20.8 mg/g CRE Normal <30 mg/g CRE [facility] Comment on above: Order Comment: Order Date: 01/10/25Order Info: 82708-8 - MIALB Performed By: #### L 502.0250 ####[facility] [address] [place], [place], [address] MICROALBUMIN,UR 62.6 mg/L Normal <20 mg/L [facility] Comment on above: Order Comment: Order Date: 01/10/25Order Info: [id number] - MIALB Performed By: #### L 502.0250 ####[facility] [address] [place], [place], [address] Monocyte percentageOrdered B y: Key Jasso on 03-07-2025 Monocytes/100 WBC (Bld) 7.3 % 0-10 [facility] Neutrophil percentageOrdered By: Key Jasso on 03-07-2025 Neutrophils/100 WBC (Bld) 73.4 % High 47-70 [facility] Nucleated red blood cell per centageOrdered By: Key Jasso on 03-07-2025 Nucleated RBC/100 WBC (Bld) [Ratio] 0 % 0-5 [facility] Platelet countOrdered By: Torito Jasso on 03-07-2025 Platelets (Bld) [#/Vol] 275 10*3/uL 150-450 [facility] Potassium measurement (mass/ volume)Ordered By: Key Jasso on 03-07-2025 Potassium (Unsp spec) [Mass/Vol] 4.5 mmol/L 3.3-5.1 [facility] Prothrombin Time w/INRon INR Coag (PPP) [Relative time] 1.3 {INR} Normal [facility] Comment on above: Order Comment: Inter face Comments:Standing OrderOrder Date: 08/22/24Order Info: 6301-6 - PTComments: Standing ORder Performed By: #### L 300.3900 ####[facility] [address] [place], [place], [address] PT Coag (PPP) [Time] 16.6 s High 11.7-14.9 [facility] Comment on above: Order Comment: Inter face Comments:Standing OrderOrder Date: 08/22/24Order Info: 6301-6 - PTComments: Standing ORder Performed By: #### L 300.3900 ####[facility] [address] [place], [address] Prothrombin timeOrdered By: Key Jasso on 03-07-2025 PT Coag (PPP) [Time] 16.6 s High 11.7-14.9 [facility] RBC Auto (Bld) [#/Vol]Ordere d By: Key Jasso on 03-07-2025 RBC (Bld) [#/Vol] 4.56 10*6/uL Low 4.6-6.2 [facility] Random urine creatinine lisa urement (mass/volume)Ordered By: Key Jasso on 03-07-2025 Creatinine Unsp time (U) [Mass/Vol] 301.00 mg/dL High 39.00-259.00 [facility] Serum creatinine measurement (mass/volume)Ordered By: Key Jasso on 03-07-2025 Creatinine [Mass/Vol] 2.06 mg/dL High 0.70-1.20 [facility] Comment on above: Order Comment: Order Date: 01/10/25Order Info: 0786- - CMPOrder Date: 07/11/24Order Info: 3016-3 - TSHStanding ORder Performed By: #### L 501.9520, L100.0100, L500.4050 ####[facility] [address] [place], [address] Serum globulin measurementOr dered By: Key Jasso on 03-07-2025 Globulin (S) [Mass/Vol] 3.0 g/dL Normal 2.2-4.2 [facility] Comment on above: Order Comment: Order Date: 01/10/25Order Info: [id number] - CMPOrder Date: 07/11/24Order Info: 6-3 - TSHStanding ORder Performed By: #### L 501.9520, L100.0100, L500.4050 ####[facility] [address] [place], [address] Serum glucose measurement (m ass/volume)Ordered By: Key Jasso on 03-07-2025 Glucose [Mass/Vol] 185 mg/dL High 70-99 [facility] Comment on above: Order Comment: Order Date: 01/10/25Order Info: 0786- - CMPOrder Date: 07/11/24Order Info: 6-3 - TSHStanding ORder Performed By: #### L 501.9520, L100.0100, L500.4050 ####[facility] [address] [place], [address] Serum or plasma alanine nunez otransferase (ALT) measurementOrdered By: Key Jasso on 03-07-2025 ALT [Catalytic activity/Vol] 17 U/L Normal <=46 [facility] Comment on above: Order Comment: Order Date: 01/10/25Order Info: 0786- - CMPOrder Date: 07/11/24Order Info: 3016-3 - TSHStanding ORder Performed By: #### L 501.9520, L100.0100, L500.4050 ####[facility] [address] [place], [address] Serum or plasma albumin lisa urement (mass/volume)Ordered By: Key Jasso on 03-07-2025 Albumin [Mass/Vol] 3.9 g/dL Normal 3.4-4.8 [facility] Comment on above: Order Comment: Order Date: 01/10/25Order Info: 0786-1 - CMPOrder Date: 07/11/24Order Info: 3016-3 - TSHStanding ORder Performed By: #### L 501.9520, L100.0100, L500.4050 ####[facility] [address] [place], [address] Serum or plasma albumin/glob ulin mass ratioOrdered By: Key Jasso on 03-07-2025 Albumin/Globulin [Mass ratio] 1.3 {ratio} Normal 0.9-2.4 [facility] Comment on above: Order Comment: Order Date: 01/10/25Order Info: 0786-1 - CMPOrder Date: 07/11/24Order Info: 6-3 - TSHStanding ORder Performed By: #### L 501.9520, L100.0100, L500.4050 ####[facility] [address] [place], [address] Serum or plasma alkaline kacy sphatase measurementOrdered By: Key Jasso on 03-07-2025 ALP [Catalytic activity/Vol] 59 U/L 40-129 [facility] Serum or plasma calcium lisa urement (mass/volume)Ordered By: Key Jasso on 03-07-2025 Calcium [Mass/Vol] 9.6 mg/dL Normal 7.6-11.0 [facility] Comment on above: Order Comment: Order Date: 01/10/25Order Info: [id number] - CMPOrder Date: 07/11/24Order Info: 3016-3 - TSHStanding ORder Performed By: #### L 501.9520, L100.0100, L500.4050 ####[facility] [address] [place], [address] Serum or plasma urea nitroge n measurement (mass/volume)Ordered By: Key Jasso on 03-07-2025 Urea nitrogen [Mass/Vol] 32 mg/dL High 4-19 [facility] Comment on above: Order Comment: Order Date: 01/10/25Order Info: [id number] - CMPOrder Date: 07/11/24Order Info: 3016-3 - TSHStanding ORder Performed By: #### L 501.9520, L100.0100, L500.4050 ####[facility] [address] [place], [address] Sodium levelOrdered By: Key Jasso on 03-07-2025 Sodium [Moles/Vol] 138 mmol/L Normal 133-145 [facility] Comment on above: Order Comment: Order Date: 01/10/25Order Info: [id number] - CMPOrder Date: 07/11/24Order Info: 3016-3 - TSHStanding ORder Performed By: #### L 501.9520, L100.0100, L500.4050 ####[facility] [address] [place], [address] TSH DL <= 0.005 mIU/L QnOrde red By: Key Jasso on 03-07-2025 TSH Qn 6.530 uIU/mL High 0.300-4.200 [facility] Thyroid Stim Hormone (TSH)on 03-07-2025 TSH 6.530 uIU/mL High 0.300-4.200 [facility] Comment on above: Order Comment: Order Date: 01/10/25Order Info: [id number] - CMPOrder Date: 07/11/24Order Info: 3016-3 - TSH Performed By: #### L 501.9520, L100.0100, L500.4050 ####[facility] [address] [place], [address] Total proteinOrdered By: Colleen Jasso on 03-07-2025 Protein [Mass/Vol] 6.9 g/dL 5.9-8.4 [facility] Urine albumin measurement wi th detection limit of 20 mg/L or less (mass/volume)Ordered By: Key Jasso on 03-07-2025 Albumin DL <= 20 mg/L (U) [Mass/Vol] 62.6 mg/L <20 mg/L [facility] White blood cell (WBC) count Ordered By: Key Jasso on 03-07-2025 WBC (Bld) [#/Vol] 7.0 10*3/uL 4.4-11.0 [facility] Inital Evaluation (1) - PTon 01-11-2025 Inital Evaluation (1) - PT [facility] Physical Therapy [facility] [address] [place] [address] / REHABILITATION SERVICES INITIAL EVALUATION MR#: [id number] Acct: [id number] Name: BRENDON DAVID Rep #: [id number] : 1950 74 From: Carlos Flores PT, [...] and To (more content not included)... Normal [facility] L/S Spine Bending Flex/[place] 01-05-2025 L/S Spine Bending Flex/Ext [facility] Imaging Services [address] [place], [place] [address] L/S Spine Bending Flex/Ext MR#: [id number] Acct: [id number] Name: BRENDON DAVID Rep #: [id number] : 1950 74 From: Kameron Mohamud MD PCP: Dr. Key Jasso MD Status: DEP AMB Study: L/S Spine Bending Flex/Ext Date of Exam: 01/05 Exam# [id number] Ordering Dr: Per Pond MD EXAM: XR [...] and disc disease of L2-3. Reading [facility] CC: Dr. Per Pond MD; Dr. Key Jasso MD Tail Board Worker: Signed Normal [facility] Orthopedic Visit Reporton Orthopedic Visit Report [facility] [address] [place] [address] OFFICE VISIT Date of Service: 01/05/25 MR#: [id number] Acct: [id number] Name: BRENDON DAVID Rep #: [id number] : 1950 Provider: Dr. Per Pond MD Age/Sex: 74/M Location[place] [facility] Status: Signed Intake Vital Signs 12/01/22 00:12 [...] Hypertension DVT (deep venous thrombosis) Non-ST elevation [place] (NSTEMI) COVID-19 DVT (deep venous thrombosis) Diabetes [...] improved. He (more content not included)... Normal [facility] Magnetic resonance imaging r eportOrdered By: Frank Etienne on 11-22-2024 Study report [facility] Imaging Services [address] [place] [address] Spine Lumbar (Routine) MR#: [id number] Acct: [id number] Name: BRENDON DAVID Rep #: [id number] : 1950 M 74 From: And jet Etienne DO PCP: Dr. Key Jasso MD Status: REG CLI Study:Spine Lumbar (Routine) Date of Exam: 11/21/24 Exam# [id number] Ordering Dr: Torito Jasso MD EXAM: Noncontrast [...] central spinal canal, or neural foraminal narrowing. Esli-rq-hnsvvwzf degenerative facet changes. L2-3: There is severe [...] DANIELLULI CC: Dr. Key Jasso MD ~ Tail Board Worker: Signed [facility] Spine Lumbar (Routine)on Spine Lumbar (Routine) [facility] Imaging Services [address] [place], [place] [address] Spine Lumbar (Routine) MR#: [id number] Acct: [id number] Name: BRENDON DAVID Rep #: [id number] : 1950 M 74 From: Frank Wood i DO PCP: Dr. Key Jasso MD Status: REG CLI Study: Spine Lumbar (Routine) Date of Exam: 11/21/24 Exam# [id number] Ordering Dr: Key Jasso MD EXAM: Noncontrast [...] central spinal canal, or neural foraminal narrowing. Efrm-px-plnnadyz degenerative facet changes. L2-3: There is severe [...] Location: [facility] CC: Dr. Key Jasso MD Tail Board Worker: Signed Normal [facility] Comprehensive Metabolic Prof ilon 10-12-2024 Albumin [Mass/Vol] 4.0 g/dL Normal 3.4-4.8 [facility] Comment on above: Performed By: #### L 506.1001, L500.4050 ####[facility] [address] [place], [address] Albumin/Globulin [Mass ratio] 1.3 {ratio} Normal 0.9-2.4 [facility] Comment on above: Performed By: #### L 506.1001, L500.4050 ####[facility] [address] [place], [address] ALK PHOS 60 U/L Normal 40-129 [facility] Comment on above: Performed By: #### L 506.1001, L500.4050 ####[facility] [address] [place], [address] ALT [Catalytic activity/Vol] 20 U/L Normal <=46 [facility] Comment on above: Performed By: #### L 506.1001, L500.4050 ####[facility] [address] [place], [address] Anion gap [Moles/Vol] 13 mmol/L Normal 5-15 [facility] Comment on above: Performed By: #### L 506.1001, L500.4050 ####[facility] [address] [place], [address] AST [Catalytic activity/Vol] 27 U/L Normal <=37 [facility] Comment on above: Performed By: #### L 506.1001, L500.4050 ####[facility] [address] [place], [address] Bilirubin [Mass/Vol] 0.38 mg/dL Normal 0.00-1.30 [facility] Comment on above: Performed By: #### L 506.1001, L500.4050 ####[facility] [address] [place], [address] BUN/CRE 19.4 RATIO Normal 10-20 [facility] Comment on above: Performed By: #### L 506.1001, L500.4050 ####[facility] [address] [place], [address] Calcium [Mass/Vol] 9.9 mg/dL Normal 7.6-11.0 [facility] Comment on above: Performed By: #### L 506.1001, L500.4050 ####[facility] [address] [place], [address] Chloride [Moles/Vol] 102 mmol/L Normal 96-108 [facility] Comment on above: Performed By: #### L 506.1001, L500.4050 ####[facility] [address] [place], [address] CO2 [Moles/Vol] 19.6 mmol/L Low 22.0-29.0 [facility] Comment on above: Performed By: #### L 506.1001, L500.4050 ####[facility] [address] [place], [address] Creatinine [Mass/Vol] 1.7 mg/dL High 0.8-1.3 [facility] Comment on above: Performed By: #### L 506.1001, L500.4050 ####[facility] [address] [place], [address] GFR/1.73 sq M.predicted among non-blacks MDRD (S/P/Bld) [Vol rate/Area] 42 mL/min/{1.73_m2} Low >60 [facility] Comment on above: Result Comment: mL/m in/1.73m2 CKD-EPI Creatinine Equation (2020) Performed By: #### L 506.1001, L500.4050 ####[facility] [address] [place], [address] Globulin (S) [Mass/Vol] 3.0 g/dL Normal 2.2-4.2 [facility] Comment on above: Performed By: #### L 506.1001, L500.4050 ####[facility] [address] [place], [address] Glucose [Mass/Vol] 221 mg/dL High 70-99 [facility] Comment on above: Performed By: #### L 506.1001, L500.4050 ####[facility] [address] [place], [address] Potassium [Moles/Vol] 4.8 mmol/L Normal 3.3-5.1 [facility] Comment on above: Performed By: #### L 506.1001, L500.4050 ####[facility] [address] [place], [address] Sodium [Moles/Vol] 135 mmol/L Normal 133-145 [facility] Comment on above: Performed By: #### L 506.1001, L500.4050 ####[facility] [address] [place], [address] T PROT 7.1 g/dL Normal 5.9-8.4 [facility] Comment on above: Performed By: #### L 506.1001, L500.4050 ####[facility] [address] [place], [address] Urea nitrogen [Mass/Vol] 33 mg/dL High 4-19 [facility] Comment on above: Performed By: #### L 506.1001, L500.4050 ####[facility] [address] [place], [address] L506.1001on 10-12-2024 Vitamin D 25-OH 25.2 ng/mL Low 30-100 [facility] Comment on above: Result Comment: Tatyana min D Status Deficiency: <20 ng/mL (50nmol/L) Insufficiency: 20-30 ng/mL (50-75 nmol/L) Sufficiency: 30-100 ng/mL (75-250 nmol/L) Toxicity: >100 ng/mL (>250 nmol/L) Performed By: #### L 506.1001, L500.4050 ####[facility] [address] [place], [address] Albumin DL <= 20 mg/L (U) [M ass/Vol]Ordered By: Key Jasso on 10-11-2024 Urine Random Microalbumin 74.4 mg/L NO RANGE EST. [facility] BUN/creatinine ratioOrdered By: Key Jasso on 10-11-2024 Urea nitrogen/Creatinine [Mass ratio] 19.4 mg/mg 10-20 [facility] Bilirubin, totalOrdered By: Key Jasso on 10-11-2024 Bilirubin [Mass/Vol] 0.38 mg/dL 0.00-1.30 [facility] CBC-Complete Blood Cnt No Di ffon 10-11-2024 Erythrocyte distribution width (RBC) [Ratio] 14.9 % High 11.6-14.6 [facility] Comment on above: Performed By: #### L 502.0250, L100.0500, L500.4050 #### [facility] [address] [place], [address] Hematocrit (Bld) [Volume fraction] 47.6 % Normal 40-54 [facility] Comment on above: Performed By: #### L 502.0250, L100.0500, L500.4050 #### [facility] [address] [place], [address] Hemoglobin (Bld) [Mass/Vol] 15.3 g/dL Normal 13.0-16.5 [facility] Comment on above: Performed By: #### L 502.0250, L100.0500, L500.4050 #### [facility] [address] [place], [address] MCH (RBC) [Entitic mass] 30.6 pg Normal 27.0-32.0 [facility] Comment on above: Performed By: #### L 502.0250, L100.0500, L500.4050 #### [facility] [address] [place], [address] MCHC (RBC) [Mass/Vol] 32.1 g/dL Normal 32-36 [facility] Comment on above: Performed By: #### L 502.0250, L100.0500, L500.4050 #### [facility] [address] [place], [address] MCV (RBC) [Entitic vol] 95.2 fL High 80-94 [facility] Comment on above: Performed By: #### L 502.0250, L100.0500, L500.4050 #### [facility] [address] [place], [address] Platelet mean volume (Bld) [Entitic vol] 10.2 fL Normal 6.2-12.0 [facility] Comment on above: Performed By: #### L 502.0250, L100.0500, L500.4050 #### [facility] [address] [place], [address] Platelets (Bld) [#/Vol] 328 10*3/uL Normal 150-450 [facility] Comment on above: Performed By: #### L 502.0250, L100.0500, L500.4050 #### [facility] [address] [place], [address] RBC (Bld) [#/Vol] 5.00 10*6/uL Normal 4.6-6.2 [facility] Comment on above: Performed By: #### L 502.0250, L100.0500, L500.4050 #### [facility] [address] [place], [address] RDW SD 52.5 fl High 35.1-43.9 [facility] Comment on above: Performed By: #### L 502.0250, L100.0500, L500.4050 #### [facility] [address] [place], [address] WBC (Bld) [#/Vol] 6.9 10*3/uL Normal 4.4-11.0 [facility] Comment on above: Performed By: #### L 502.0250, L100.0500, L500.4050 #### [facility] [address] [place], [address] Carbon dioxide measurementOr dered By: Key Jasso on 10-11-2024 CO2 [Moles/Vol] 19.6 mmol/L Low 22.0-29.0 [facility] Chloride measurementOrdered By: Key Jasso on 10-11-2024 Chloride [Moles/Vol] 102 mmol/L 96-108 [facility] Comprehensive Metabolic Prof ilon 10-11-2024 ALB Normal 3.2-5.0 [facility] Comment on above: Result Comment: REOR DERED Performed By: #### L 502.0250, L100.0500, L500.4050 #### [facility] [address] [place], [address] ALK PHOS Normal 45-117 [facility] Comment on above: Result Comment: REOR DERED Performed By: #### L 502.0250, L100.0500, L500.4050 #### [facility] [address] [place], [address] ALT Normal 16-61 [facility] Comment on above: Result Comment: REOR DERED Performed By: #### L 502.0250, L100.0500, L500.4050 #### [facility] [address] [place], [address] AST Normal 15-37 [facility] Comment on above: Result Comment: REOR DERED Performed By: #### L 502.0250, L100.0500, L500.4050 #### [facility] [address] [place], [address] BUN Normal 7-18 [facility] Comment on above: Result Comment: REOR DERED Performed By: #### L 502.0250, L100.0500, L500.4050 #### [facility] [address] [place], [address] BUN/CRE Normal 10-20 [facility] Comment on above: Result Comment: REOR DERED Performed By: #### L 502.0250, L100.0500, L500.4050 #### [facility] [address] [place], [address] Calcium Normal 8.5-10.1 [facility] Comment on above: Result Comment: REOR DERED Performed By: #### L 502.0250, L100.0500, L500.4050 #### [facility] [address] [place], [address] CL Normal 98-107 [facility] Comment on above: Result Comment: REOR DERED Performed By: #### L 502.0250, L100.0500, L500.4050 #### [facility] [address] [place], [address] CO2 Normal 21.0-32.0 [facility] Comment on above: Result Comment: REOR DERED Performed By: #### L 502.0250, L100.0500, L500.4050 #### [facility] [address] [place], [address] CREAT,SERUM Normal 0.70-1.30 [facility] Comment on above: Result Comment: REOR DERED Performed By: #### L 502.0250, L100.0500, L500.4050 #### [facility] [address] [place], [address] eGFR Normal >60 [facility] Comment on above: Result Comment: REOR DERED Performed By: #### L 502.0250, L100.0500, L500.4050 #### [facility] [address] [place], [address] EST GFR - AA Normal >60 [facility] Comment on above: Result Comment: REOR DERED Performed By: #### L 502.0250, L100.0500, L500.4050 #### [facility] [address] [place], [address] GAP Normal 5-15 [facility] Comment on above: Result Comment: REOR DERED Performed By: #### L 502.0250, L100.0500, L500.4050 #### [facility] [address] [place], [address] GLU Normal 74-106 [facility] Comment on above: Result Comment: REOR DERED Performed By: #### L 502.0250, L100.0500, L500.4050 #### [facility] [address] [place], [address] Potassium Normal 3.5-5.1 [facility] Comment on above: Result Comment: REOR DERED Performed By: #### L 502.0250, L100.0500, L500.4050 #### [facility] [address] [place], [address] T BILI Normal 0.20-1.00 [facility] Comment on above: Result Comment: REOR DERED Performed By: #### L 502.0250, L100.0500, L500.4050 #### [facility] [address] [place], [address] T PROT Normal 6.4-8.2 [facility] Comment on above: Result Comment: REOR DERED Performed By: #### L 502.0250, L100.0500, L500.4050 #### [facility] [address] [place], [place], [address] Comprehensive Metabolic Profil Normal 136-145 [facility] Comment on above: Result Comment: FLORENTINOHORTENSIA KUSH Performed By: #### L 502.0250, L100.0500, L500.4050 #### [facility] [address] [place], [address] Creatinine Unsp time (U) [Ma ss/Vol]Ordered By: Key Jasso on 10-11-2024 Creatinine (U) [Mass/Vol] 237.00 mg/dL NO RANGE EST. [facility] Creatinine [Moles/Vol]Ordere d By: Key Jasso on 10-11-2024 Creatinine [Mass/Vol] 1.7 mg/dL High 0.8-1.3 [facility] Erythrocyte distribution wid th ratioOrdered By: Key Jasso on 10-11-2024 Erythrocyte distribution width (RBC) [Ratio] 14.9 % High 11.6-14.6 [facility] Erythrocyte distribution wid th standard deviationOrdered By: Key Jasso on 10-11-2024 Erythrocyte distribution width (RBC) [Entitic vol] 52.5 fL High 35.1-43.9 [facility] GFR/1.73 sq M.predicted marti g non-blacks MDRD (S/P/Bld) [Vol rate/Area]Ordered By: Key Jasso on 10-11-2024 Estimated GFR (MDRD) Non-Af Amer 42 Low >60 [facility] Comment on above: mL/min/1.73m2 CKD-EP I Creatinine Equation (2020) Hematocrit Auto (Bld) [Volum e fraction]Ordered By: Key Jasso on 10-11-2024 Hematocrit (Bld) [Volume fraction] 47.6 % 40-54 [facility] Hemoglobin measurementOrdere d By: Key Jasso on 10-11-2024 Hemoglobin (Bld) [Mass/Vol] 15.3 g/dL 13.0-16.5 [facility] Laboratory - Chemistry and C hemistry - challengeOrdered By: Key Jasso on 10-11-2024 AST [Catalytic activity/Vol] 27 U/L <38 [facility] Lumbar Spine 2 or 3 Viewson 10-11-2024 Lumbar Spine 2 or 3 Views [facility] Imaging Services [address] [place] [address] Lumbar Spine 2 or 3 Views MR#: [id number] Acct: [id number] Name: BRENDON DAVID Rep #: [id number] : 1950 M 74 From: Delfin curiel MD PCP: Dr. Key Jasso MD Status: REG CLI Study: Lumbar Spine 2 or 3 Views Date of Exam: Exam# [id number] Ordering Dr: Key Jasso MD PROCEDURE: LUMBAR [...] interarticularis of the L5 vertebrae. Reading Location: [facility] CC: Dr. Key Jasso MD Tail Board Worker: Signed Normal [facility] MCV (mean corpuscular volume ) determinationOrdered By: Key Jasso on 10-11-2024 MCV (RBC) [Entitic vol] 95.2 fL High 80-94 [facility] Mean corpuscular hemoglobin (MCH) determinationOrdered By: Key Jasso on 10-11-2024 MCH (RBC) [Entitic mass] 30.6 pg 27.0-32.0 [facility] Mean corpuscular hemoglobin concentration (MCHC) determinationOrdered By: Key Jasso on 10-11-2024 MCHC (RBC) [Mass/Vol] 32.1 g/dL 32-36 [facility] Mean platelet volume determi nationOrdered By: Key Jasso on 10-11-2024 Platelet mean volume (Bld) [Entitic vol] 10.2 fL 6.2-12.0 [facility] Microalbumin/creat ratio urO rdered By: Key Jasso on 10-11-2024 Urine Microalbumin/Creatinin e Ratio 313.9 mg/g CRE [facility] No Panel InformationOrdered By: Key Jasso on 10-11-2024 Vitamin D 25-Hydroxy 25.2 ng/mL Low 30-100 [facility] Comment on above: Vitamin D StatusDefi ciency: <20 ng/mL (50nmol/L)Insufficiency: 20-30 ng/mL (50-75 nmol/L)Sufficiency: 30-100 ng/mL (75-250 nmol/L)Toxicity: >100 ng/mL (>250 nmol/L) Platelet countOrdered By: Torito Jasso on 10-11-2024 Platelets (Bld) [#/Vol] 328 10*3/uL 150-450 [facility] RBC Auto (Bld) [#/Vol]Ordere d By: Key Jasso on 10-11-2024 RBC (Bld) [#/Vol] 5.00 10*6/uL 4.6-6.2 [facility] Serum globulin measurementOr dered By: Key Jasso on 10-11-2024 Globulin (S) [Mass/Vol] 3.0 g/dL 2.2-4.2 [facility] Serum glucose measurement (m ass/volume)Ordered By: Key Jasso on 10-11-2024 Glucose [Mass/Vol] 221 mg/dL High 70-99 [facility] Serum or plasma alanine nunez otransferase (ALT) measurementOrdered By: Key Jasso on 10-11-2024 ALT [Catalytic activity/Vol] 20 U/L <47 [facility] Serum or plasma albumin lisa urement (mass/volume)Ordered By: Key Jasso on 10-11-2024 Albumin [Mass/Vol] 4.0 g/dL 3.4-4.8 [facility] Serum or plasma albumin/glob ulin mass ratioOrdered By: Key Jasso on 10-11-2024 Albumin/Globulin [Mass ratio] 1.3 {ratio} 0.9-2.4 [facility] Serum or plasma alkaline kacy sphatase measurementOrdered By: Key Jasso on 10-11-2024 ALP [Catalytic activity/Vol] 60 U/L 40-129 [facility] Serum or plasma anion gap de termination (moles/volume)Ordered By: Key Jasso on 10-11-2024 Anion gap [Moles/Vol] 13 mmol/L 5-15 [facility] Serum or plasma calcium lisa urement (mass/volume)Ordered By: Key Jasso on 10-11-2024 Calcium [Mass/Vol] 9.9 mg/dL 7.6-11.0 [facility] Serum or plasma potassium me asurementOrdered By: Key Jasso on 10-11-2024 Potassium [Moles/Vol] 4.8 mmol/L 3.3-5.1 [facility] Serum or plasma sodium measu rement (moles/volume)Ordered By: Key Jasso on 10-11-2024 Sodium [Moles/Vol] 135 mmol/L 133-145 [facility] Serum or plasma urea nitroge n measurement (mass/volume)Ordered By: Key Jasso on 10-11-2024 Urea nitrogen [Mass/Vol] 33 mg/dL High 4-19 [facility] Total proteinOrdered By: Colleen Jasso on 10-11-2024 Protein [Mass/Vol] 7.1 g/dL 5.9-8.4 [facility] White blood cell (WBC) count Ordered By: Key Jasso on 10-11-2024 WBC (Bld) [#/Vol] 6.9 10*3/uL 4.4-11.0 [facility] C reactive proteinon 024 CRP [Mass/Vol] 0.42 mg/dL Normal <1.00 [facility] Comment on above: Performed By: #### 1 988-5 #### CAN EDWARD ([id number]) [facility] ([facility]) [address] [place] [id number] CBC W/Diff, Automatedon 03-18 Absolute Lymph 1.00 X10 3/uL Normal 0.83-4.51 [facility] Comment on above: Order Comment: Order Date: 03/08/24 Order Info: 0184-1 - CBCD Performed By: #### L 100.0100, L501.9985, L300.3900, L501.2450, L500.4050 #### [facility] [address] [place], [address] Absolute Neut 6.1 X10 3/uL Normal 2.0-7.7 [facility] Comment on above: Order Comment: Order Date: 03/08/24 Order Info: 0184- - CBCD Performed By: #### L 100.0100, L501.9985, L300.3900, L501.2450, L500.4050 #### [facility] [address] [place], [address] Basophils/100 WBC (Bld) 0.6 % Normal 0-1 [facility] Comment on above: Order Comment: Order Date: 03/08/24 Order Info: 0184- - CBCD Performed By: #### L 100.0100, L501.9985, L300.3900, L501.2450, L500.4050 #### [facility] [address] [place], [address] Eosinophils/100 WBC (Bld) 1.3 % Normal 0-5 [facility] Comment on above: Order Comment: Order Date: 03/08/24 Order Info: 0184-1 - CBCD Performed By: #### L 100.0100, L501.9985, L300.3900, L501.2450, L500.4050 #### [facility] [address] [place], [address] Erythrocyte distribution width (RBC) [Ratio] 14.1 % Normal 11.6-14.6 [facility] Comment on above: Order Comment: Order Date: 03/08/24 Order Info: 0184-1 - CBCD Performed By: #### L 100.0100, L501.9985, L300.3900, L501.2450, L500.4050 #### [facility] [address] [place], [address] Hematocrit (Bld) [Volume fraction] 45.1 % Normal 40-54 [facility] Comment on above: Order Comment: Order Date: 03/08/24 Order Info: 0184-1 - CBCD Performed By: #### L 100.0100, L501.9985, L300.3900, L501.2450, L500.4050 #### [facility] [address] [place], [address] Hemoglobin (Bld) [Mass/Vol] 14.6 g/dL Normal 13.0-16.5 [facility] Comment on above: Order Comment: Order Date: 03/08/24 Order Info: 0184-1 - CBCD Performed By: #### L 100.0100, L501.9985, L300.3900, L501.2450, L500.4050 #### [facility] [address] [place], [address] IG% 0.900 Normal 0.0-0.9 [facility] Comment on above: Order Comment: Order Date: 03/08/24 Order Info: 0184-1 - CBCD Result Comment: IG% - Immature Granulocytes (promyelocytes, myelocytes and metamyelocytes) > 1% indicates that a LEFT SHIFT is Present. Performed By: #### L 100.0100, L501.9985, L300.3900, L501.2450, L500.4050 #### [facility] [address] [place], [address] Lymphocytes/100 WBC (Bld) 12.8 % Low 19-41 [facility] Comment on above: Order Comment: Order Date: 03/08/24 Order Info: 0184-1 - CBCD Performed By: #### L 100.0100, L501.9985, L300.3900, L501.2450, L500.4050 #### [facility] [address] [place], [address] MCH (RBC) [Entitic mass] 30.7 pg Normal 27.0-32.0 [facility] Comment on above: Order Comment: Order Date: 03/08/24 Order Info: 018- - CBCD Performed By: #### L 100.0100, L501.9985, L300.3900, L501.2450, L500.4050 #### [facility] [address] [place], [address] MCHC (RBC) [Mass/Vol] 32.4 g/dL Normal 32-36 [facility] Comment on above: Order Comment: Order Date: 03/08/24 Order Info: 018- - CBCD Performed By: #### L 100.0100, L501.9985, L300.3900, L501.2450, L500.4050 #### [facility] [address] [place], [address] MCV (RBC) [Entitic vol] 94.9 fL High 80-94 [facility] Comment on above: Order Comment: Order Date: 03/08/24 Order Info: 018- - CBCD Performed By: #### L 100.0100, L501.9985, L300.3900, L501.2450, L500.4050 #### [facility] [address] [place], [address] Monocytes/100 WBC (Bld) 6.5 % Normal 0-10 [facility] Comment on above: Order Comment: Order Date: 03/08/24 Order Info: 018- - CBCD Performed By: #### L 100.0100, L501.9985, L300.3900, L501.2450, L500.4050 #### [facility] [address] [place], [address] Neutrophils/100 WBC (Bld) 77.9 % High 47-70 [facility] Comment on above: Order Comment: Order Date: 03/08/24 Order Info: 0184-1 - CBCD Performed By: #### L 100.0100, L501.9985, L300.3900, L501.2450, L500.4050 #### [facility] [address] [place], [address] Nucleated RBC (Bld) [#/Vol] 0 10*3/uL Normal 0-5 [facility] Comment on above: Order Comment: Order Date: 03/08/24 Order Info: 0184-1 - CBCD Performed By: #### L 100.0100, L501.9985, L300.3900, L501.2450, L500.4050 #### [facility] [address] [place], [address] Platelet mean volume (Bld) [Entitic vol] 10.4 fL Normal 6.2-12.0 [facility] Comment on above: Order Comment: Order Date: 03/08/24 Order Info: 0184-1 - CBCD Performed By: #### L 100.0100, L501.9985, L300.3900, L501.2450, L500.4050 #### [facility] [address] [place], [address] Platelets (Bld) [#/Vol] 303 10*3/uL Normal 150-450 [facility] Comment on above: Order Comment: Order Date: 03/08/24 Order Info: 0184-1 - CBCD Performed By: #### L 100.0100, L501.9985, L300.3900, L501.2450, L500.4050 #### [facility] [address] [place], [address] RBC (Bld) [#/Vol] 4.75 10*6/uL Normal 4.6-6.2 [facility] Comment on above: Order Comment: Order Date: 03/08/24 Order Info: 0184-1 - CBCD Performed By: #### L 100.0100, L501.9985, L300.3900, L501.2450, L500.4050 #### [facility] [address] [place], [address] RDW SD 49.5 fl High 35.1-43.9 [facility] Comment on above: Order Comment: Order Date: 03/08/24 Order Info: 0184-1 - CBCD Performed By: #### L 100.0100, L501.9985, L300.3900, L501.2450, L500.4050 #### [facility] [address] [place], [address] WBC (Bld) [#/Vol] 7.8 10*3/uL Normal 4.4-11.0 [facility] Comment on above: Order Comment: Order Date: 03/08/24 Order Info: 0184-1 - CBCD Performed By: #### L 100.0100, L501.9985, L300.3900, L501.2450, L500.4050 #### [facility] [address] [place], [address] Comprehensive Metabolic Prof [facility] 04-13-2024 Albumin [Mass/Vol] 3.3 g/dL Normal 3.2-5.0 [facility] Comment on above: Order Comment: Order Date: 03/08/24 Order Info: 0786-1 - CMP Order Info: 3040-3 - LIPASE Performed By: #### L 100.0100, L501.9985, L300.3900, L501.2450, L500.4050 #### [facility] [address] [place], [address] Albumin/Globulin [Mass ratio] 0.9 {ratio} Normal 0.9-2.4 [facility] Comment on above: Order Comment: Order Date: 03/08/24 Order Info: 0786-1 - CMP Order Info: 3040-3 - LIPASE Performed By: #### L 100.0100, L501.9985, L300.3900, L501.2450, L500.4050 #### [facility] [address] [place], [address] ALK P 72 U/L Normal 45-117 [facility] Comment on above: Order Comment: Order Date: 03/08/24 Order Info: 0786-1 - CMP Order Info: 3040-3 - LIPASE Performed By: #### L 100.0100, L501.9985, L300.3900, L501.2450, L500.4050 #### [facility] [address] [place], [address] ALT [Catalytic activity/Vol] 21 U/L Normal 16-61 [facility] Comment on above: Order Comment: Order Date: 03/08/24 Order Info: 0786-1 - CMP Order Info: 3040-3 - LIPASE Performed By: #### L 100.0100, L501.9985, L300.3900, L501.2450, L500.4050 #### [facility] [address] [place], [address] AST [Catalytic activity/Vol] 20 U/L Normal 15-37 [facility] Comment on above: Order Comment: Order Date: 03/08/24 Order Info: 0786-1 - CMP Order Info: 3040-3 - LIPASE Performed By: #### L 100.0100, L501.9985, L300.3900, L501.2450, L500.4050 #### [facility] [address] [place], [address] Bilirubin [Mass/Vol] 0.70 mg/dL Normal 0.20-1.00 [facility] Comment on above: Order Comment: Order Date: 03/08/24 Order Info: 0786-1 - CMP Order Info: 3040-3 - LIPASE Result Comment: For patients on eltrombopag therapy, use of Dimension [place] TBIL is not recommended. Performed By: #### L 100.0100, L501.9985, L300.3900, L501.2450, L500.4050 #### [facility] [address] [place], [address] BUN/CRE 18.2 RATIO Normal 10-20 [facility] Comment on above: Order Comment: Order Date: 03/08/24 Order Info: 0786-1 - CMP Order Info: 3040-3 - LIPASE Performed By: #### L 100.0100, L501.9985, L300.3900, L501.2450, L500.4050 #### [facility] [address] [place], [address] CA,Total 9.2 mg/dL Normal 8.5-10.1 [facility] Comment on above: Order Comment: Order Date: 03/08/24 Order Info: 0786-1 - CMP Order Info: 3040-3 - LIPASE Performed By: #### L 100.0100, L501.9985, L300.3900, L501.2450, L500.4050 #### [facility] [address] [place], [address] Chloride [Moles/Vol] 107 mmol/L Normal 98-107 [facility] Comment on above: Order Comment: Order Date: 03/08/24 Order Info: 0786-1 - CMP Order Info: 3040-3 - LIPASE Performed By: #### L 100.0100, L501.9985, L300.3900, L501.2450, L500.4050 #### [facility] [address] [place], [address] CO2 [Moles/Vol] 22.0 mmol/L Normal 21.0-32.0 [facility] Comment on above: Order Comment: Order Date: 03/08/24 Order Info: 0786-1 - CMP Order Info: 3040-3 - LIPASE Performed By: #### L 100.0100, L501.9985, L300.3900, L501.2450, L500.4050 #### [facility] [address] [place], [address] Creatinine [Mass/Vol] 1.87 mg/dL High 0.70-1.30 [facility] Comment on above: Order Comment: Order Date: 03/08/24 Order Info: 07 - CMP Order Info: 3043 - LIPASE Result Comment: The validity of the calculated GFR GFRAA in patients over 70 years has not been determined. Clinical correlation is essential. Performed By: #### L 100.0100, L501.9985, L300.3900, L501.2450, L500.4050 #### [facility] [address] [place], [address] EST GFR - AA 46 mL/min Low >60 [facility] Comment on above: Order Comment: Order Date: 03/08/24 Order Info: 0786- - CMP Order Info: 3043 - LIPASE Result Comment: Afri can [place] GFR Calc Performed By: #### L 100.0100, L501.9985, L300.3900, L501.2450, L500.4050 #### [facility] [address] [place], [place], [address] GAP 8 Normal 5-15 [facility] Comment on above: Order Comment: Order Date: 03/08/24 Order Info: 0786-1 - CMP Order Info: 304-3 - LIPASE Performed By: #### L 100.0100, L501.9985, L300.3900, L501.2450, L500.4050 #### [facility] [address] [place], [place], [id number] GFR/1.73 sq M.predicted among non-blacks MDRD (S/P/Bld) [Vol rate/Area] 38 mL/min/{1.73_m2} Low >60 [facility] Comment on above: Order Comment: Order Date: 03/08/24 Order Info: 0786- - CMP Order Info: 304-3 - LIPASE Result Comment: Non- GFR Calc Performed By: #### L 100.0100, L501.9985, L300.3900, L501.2450, L500.4050 #### [facility] [address] [place], [address] Globulin (S) [Mass/Vol] 3.8 g/dL Normal 2.2-4.2 [facility] Comment on above: Order Comment: Order Date: 03/08/24 Order Info: 0786 - [facility] Order Info: 304-3 - LIPASE Performed By: #### L 100.0100, L501.9985, L300.3900, L501.2450, L500.4050 #### [facility] [address] [place], [address] Glucose [Mass/Vol] 244 mg/dL High 74-106 [facility] Comment on above: Order Comment: Order Date: 03/08/24 Order Info: 0786 - [facility] Order Info: 304-3 - LIPASE Result Comment: Gluc ose result greater than or equal to 200 mg/dL suggests DIABETES MELLITUS per A.D.A. criteria. Performed By: #### L 100.0100, L501.9985, L300.3900, L501.2450, L500.4050 #### [facility] [address] [place], [address] Potassium [Moles/Vol] 4.2 mmol/L Normal 3.5-5.1 [facility] Comment on above: Order Comment: Order Date: 03/08/24 Order Info: 0786- - [facility] Order Info: 3040-3 - LIPASE Performed By: #### L 100.0100, L501.9985, L300.3900, L501.2450, L500.4050 #### [facility] [address] [place], [address] Sodium [Moles/Vol] 137 mmol/L Normal 136-145 [facility] Comment on above: Order Comment: Order Date: 03/08/24 Order Info: 0786-1 - CMP Order Info: 3040-3 - LIPASE Performed By: #### L 100.0100, L501.9985, L300.3900, L501.2450, L500.4050 #### [facility] [address] [place], [address] T PROT 7.1 g/dL Normal 6.4-8.2 [facility] Comment on above: Order Comment: Order Date: 03/08/24 Order Info: 0786-1 - CMP Order Info: 3040-3 - LIPASE Performed By: #### L 100.0100, L501.9985, L300.3900, L501.2450, L500.4050 #### [facility] [address] [place], [address] Urea nitrogen [Mass/Vol] 34 mg/dL High 7-18 [facility] Comment on above: Order Comment: Order Date: 03/08/24 Order Info: 0786-1 - CMP Order Info: 3040-3 - LIPASE Performed By: #### L 100.0100, L501.9985, L300.3900, L501.2450, L500.4050 #### [facility] [address] [place], [address] Hemoglobin A1con 04-13-2024 HbA1c (Bld) [Mass fraction] 7.4 % High 3.8-5.6 [facility] Comment on above: Order Comment: Order Date: 03/08/24Order Info: 4548-4 - A1C Result Comment: Norm al < 5.7 % Prediabetic 5.7 - 6.4 % Diabetic >or= 6.5 % Please note range changes. Performed By: #### L 100.0100, L501.9985, L300.3900, L501.2450, L500.4050 ####[facility] [address] [place], [address] Lipaseon 04-13-2024 Lipase [Catalytic activity/Vol] 51 U/L Normal 13-75 [facility] Comment on above: Order Comment: Order Date: 03/08/24 Order Info: 0786-1 - CMP Order Info: 3040-3 - LIPASE Result Comment: Jennifer meier note: LIPASE revised reference range effective 22. New Lipase methodology. Expected to produce lower values than the previous assay method. NEW Reference Range: 13 - 75 U/L Performed By: #### L 100.0100, L501.9985, L300.3900, L501.2450, L500.4050 #### [facility] [address] [place], [address] Prothrombin Time w/INRon INR Coag (PPP) [Relative time] 2.0 {INR} Normal [facility] Comment on above: Order Comment: Order Date: 03/08/24 Order Info: 6301-6 - PT Performed By: #### L 100.0100, L501.9985, L300.3900, L501.2450, L500.4050 #### [facility] [address] [place], [address] PT Coag (PPP) [Time] 22.3 s High 11.7-14.9 [facility] Comment on above: Order Comment: Order Date: 03/08/24 Order Info: 6301-6 - PT Performed By: #### L 100.0100, L501.9985, L300.3900, L501.2450, L500.4050 #### [facility] [address] [place], [address] Absolute lymphocyte countOrd ered By: Key Jasso on 12-07-2023 Lymphocytes Auto (Unsp spec) [#/Vol] 1.10 10*3/uL 0.83-4.51 [facility] Automated lymphocyte count a s percentage of total leukocytesOrdered By: Key Jasso on 12-07-2023 Lymphocytes/100 WBC Auto (Unsp spec) 13.9 % 19-41 [facility] Basophil percentageOrdered B y: Key Jasso on 12-07-2023 Basophils/100 WBC (Bld) 0.9 % 0-1 [facility] Bilirubin [Mass/Vol] 0.60 mg/dL 0.20-1.00 [facility] Comment on above: For patients on eltr ombopag therapy, use of Dimension [place] TBIL is not recommended. Chloride [Moles/Vol] 109 mmol/L 98-107 [facility] Eosinophils/100 WBC (Bld) 1.4 % 0-5 [facility] Glucose [Mass/Vol] 177 mg/dL 74-106 [facility] Comment on above: Fasting Glucose resu lt greater than or equal to 126 mg/dL suggests DIABETES MELLITUS per A.D.A. criteria. Hemoglobin (Bld) [Mass/Vol] 15.4 g/dL 13.0-16.5 [facility] Monocytes/100 WBC (Bld) 6.4 % 0-10 [facility] Neutrophils (Bld) [#/Vol] 6.1 10*3/uL 2.0-7.7 [facility] Neutrophils/100 WBC (Bld) 76.4 % 47-70 [facility] Potassium [Moles/Vol] 4.1 mmol/L 3.5-5.1 [facility] Protein [Mass/Vol] 7.5 g/dL 6.4-8.2 [facility] Sodium [Moles/Vol] 139 mmol/L 136-145 [facility] WBC (Bld) [#/Vol] 7.9 10*3/uL 4.4-11.0 [facility] Determination of erythrocyte mean corpuscular volume (MCV)Ordered By: Key Jasso on 12-07-2023 MCV (RBC) [Entitic vol] 96.2 fL 80-94 [facility] Erythrocyte distribution wid th ratioOrdered By: Key Jasso on 12-07-2023 Erythrocyte distribution width (RBC) [Ratio] 15.2 % 11.6-14.6 [facility] Erythrocyte distribution wid th standard deviationOrdered By: Key Jasso on 12-07-2023 Erythrocyte distribution width (RBC) [Entitic vol] 53.8 fL 35.1-43.9 [facility] Hematocrit Auto (Bld) [Volum e fraction]Ordered By: Key Jasso on 12-07-2023 Hematocrit (Bld) [Volume fraction] 47.9 % 40-54 [facility] Immature granulocytes/100 WB C Auto (Bld)Ordered By: Key Jasso on 12-07-2023 Immature granulocytes/100 WBC (Bld) 1.000 % 0.0-0.9 [facility] Comment on above: IG% - Immature Granu locytes (promyelocytes, myelocytes and metamyelocytes) > 1% indicates that a LEFT SHIFT is Present. Laboratory - Chemistry and C hemistry - challengeOrdered By: Key Jasso on 12-07-2023 Albumin/Globulin [Mass ratio] 0.9 {ratio} 0.9-2.4 [facility] ALP [Catalytic activity/Vol] 68 U/L 45-117 [facility] ALT [Catalytic activity/Vol] 25 U/L 16-61 [facility] CO2 [Moles/Vol] 24.0 mmol/L 21.0-32.0 [facility] Ferritin [Mass/Vol] 77 ng/mL 26-388 [facility] Globulin (S) [Mass/Vol] 4.0 g/dL 2.2-4.2 [facility] Urea nitrogen/Creatinine [Mass ratio] 20.1 mg/mg 10-20 [facility] Laboratory - Hematology and Cell countsOrdered By: Key Jasso on 12-07-2023 MCH (RBC) [Entitic mass] 30.9 pg 27.0-32.0 [facility] MCHC (RBC) [Mass/Vol] 32.2 g/dL 32-36 [facility] Nucleated RBC/100 WBC (Bld) [Ratio] 0 % 0-5 [facility] Platelet mean volume (Bld) [Entitic vol] 10.6 fL 6.2-12.0 [facility] Platelets (Bld) [#/Vol] 275 10*3/uL 150-450 [facility] No Panel InformationOrdered By: Key Jasso on 12-07-2023 Estimated GFR (MDRD) Amer 58 mL/min >60 [facility] Comment on above: GFR Calc Estimated GFR (MDRD) Non-Af Amer 48 mL/min >60 [facility] Comment on above: Non- GFR Calc Parathyroid Hormone (Intact) 33.6 pg/mL 18.4-80.1 [facility] Urine Microalbumin/Creatinin e Ratio 47.9 mg/g CRE <30 [facility] RBC Auto (Bld) [#/Vol]Ordere d By: Key Jasso on 12-07-2023 RBC (Bld) [#/Vol] 4.98 10*6/uL 4.6-6.2 [facility] Serum or plasma calcium lisa urement (mass/volume)Ordered By: Key Jasso on 12-07-2023 Calcium [Mass/Vol] 9.3 mg/dL 8.5-10.1 [facility] Serum or plasma creatinine m easurement (mass/volume)Ordered By: Key Jasso on 12-07-2023 Creatinine [Mass/Vol] 1.54 mg/dL 0.70-1.30 [facility] Comment on above: The validity of the calculated GFR & GFRAA in patients over 70 years has not been determined. Clinical correlation is essential. Serum or plasma urea nitroge n measurement (mass/volume)Ordered By: Key Jasso on 12-07-2023 Urea nitrogen [Mass/Vol] 31 mg/dL 7-18 [facility] Thin prep Papanicolaou smear with manual screeningOrdered By: Key Jasso on 12-07-2023 Thin prep Papanicolaou smear with manual screening 3.5 g/dL 3.2-5.0 [facility] Thin prep Papanicolaou smear with manual screening 17 U/L 15-37 [facility] Thin prep Papanicolaou smear with manual screening 6 5-15 [facility] Thin prep Papanicolaou smear with manual screening 59.4 mg/L NO RANGE EST. [facility] Urine creatinine measurement (mass/volume)Ordered By: Key Jasso on 12-07-2023 Creatinine (U) [Mass/Vol] 124.00 mg/dL NO RANGE EST. [facility] Basophil percentageOrdered B y: Key Jasso on 07-27-2023 Bilirubin [Mass/Vol] 0.50 mg/dL 0.20-1.00 [facility] Comment on above: For patients on eltr ombopag therapy, use of Dimension [place] TBIL is not recommended. Chloride [Moles/Vol] 108 mmol/L 98-107 [facility] Glucose [Mass/Vol] 217 mg/dL 74-106 [facility] Comment on above: Glucose result great er than or equal to 200 mg/dLsuggests DIABETES MELLITUS per A.D.A. criteria. Potassium [Moles/Vol] 4.4 mmol/L 3.5-5.1 [facility] Protein [Mass/Vol] 6.8 g/dL 6.4-8.2 [facility] Sodium [Moles/Vol] 138 mmol/L 136-145 [facility] Laboratory - Chemistry and C hemistry - challengeOrdered By: Key Jasso on 07-27-2023 ALP [Catalytic activity/Vol] 71 U/L 45-117 [facility] ALT [Catalytic activity/Vol] 30 U/L 16-61 [facility] CO2 [Moles/Vol] 24.0 mmol/L 21.0-32.0 [facility] Globulin (S) [Mass/Vol] 3.6 g/dL 2.2-4.2 [facility] Urea nitrogen/Creatinine [Mass ratio] 21.7 mg/mg 10-20 [facility] No Panel InformationOrdered By: Key Jasso on 07-27-2023 Estimated GFR (MDRD) Amer 55 mL/min >60 [facility] Comment on above: GFR Calc Estimated GFR (MDRD) Non-Af Amer 45 mL/min >60 [facility] [facility] Comment on above: Non- GFR Calc Serum or plasma albumin lisa urement (mass/volume)Ordered By: Key Jasso on 07-27-2023 Albumin [Mass/Vol] 3.2 g/dL 3.2-5.0 [facility] Serum or plasma albumin/glob ulin mass ratioOrdered By: Key Jasso on 07-27-2023 Albumin/Globulin [Mass ratio] 0.9 {ratio} 0.9-2.4 [facility] Serum or plasma calcium lisa urement (mass/volume)Ordered By: Key Jasso on 07-27-2023 Calcium [Mass/Vol] 9.0 mg/dL 8.5-10.1 [facility] Serum or plasma creatinine m easurement (mass/volume)Ordered By: Key Jasso on 07-27-2023 Creatinine [Mass/Vol] 1.61 mg/dL 0.70-1.30 [facility] Comment on above: The validity of the calculated GFR & GFRAA in patients over 70 years has not been determined. Clinical correlation is essential. Serum or plasma urea nitroge n measurement (mass/volume)Ordered By: Key Jasso on 07-27-2023 Urea nitrogen [Mass/Vol] 35 mg/dL 7-18 [facility] Thin prep Papanicolaou smear with manual screeningOrdered By: Key Jasso on 07-27-2023 Thin prep Papanicolaou smear with manual screening 19 U/L 15-37 [facility] Thin prep Papanicolaou smear with manual screening 6 5-15 [facility] Whole blood hemoglobin A1c/t otal hemoglobin ratio (mass fraction)Ordered By: Key Jasso on 07-27-2023 HbA1c (Bld) [Mass fraction] 8.7 % 3.8-5.6 [facility] Comment on above: Normal < 5.7 % Predi abetic 5.7 - 6.4 % Diabetic >or= 6.5 % Please note range changes. Basophil percentageOrdered B y: Key Jasso on 07-06-2023 Bilirubin [Mass/Vol] 0.40 mg/dL 0.20-1.00 [facility] Comment on above: For patients on eltr ombopag therapy, use of Dimension [place] TBIL is not recommended. Chloride [Moles/Vol] 105 mmol/L 98-107 [facility] Glucose [Mass/Vol] 265 mg/dL 74-106 [facility] Comment on above: Glucose result great er than or equal to 200 mg/dLsuggests DIABETES MELLITUS per A.D.A. criteria. Potassium [Moles/Vol] 4.3 mmol/L 3.5-5.1 [facility] Protein [Mass/Vol] 7.2 g/dL 6.4-8.2 [facility] Sodium [Moles/Vol] 134 mmol/L 136-145 [facility] INR in Blood by Coagulation assayOrdered By: Key Jasso on 07-06-2023 INR Coag (Bld) [Relative time] 3.2 {INR} [facility] Laboratory - Chemistry and C hemistry - challengeOrdered By: Key Jasso on 07-06-2023 ALP [Catalytic activity/Vol] 73 U/L 45-117 [facility] ALT [Catalytic activity/Vol] 35 U/L 16-61 [facility] CO2 [Moles/Vol] 20.0 mmol/L 21.0-32.0 [facility] Globulin (S) [Mass/Vol] 3.9 g/dL 2.2-4.2 [facility] Urea nitrogen/Creatinine [Mass ratio] 20.4 mg/mg 06-05 [facility] Laboratory - CoagulationOrde red By: Key Jasso on 07-06-2023 PT Coag (PPP) [Time] 33.1 s 11.7-14.9 [facility] No Panel InformationOrdered By: Key Jasso on 07-06-2023 Estimated GFR (MDRD) Amer 59 mL/min >60 [facility] Comment on above: GFR Calc Estimated GFR (MDRD) Non-Af Amer 48 mL/min >60 [facility] Comment on above: Non- GFR Calc Serum or plasma albumin lisa urement (mass/volume)Ordered By: Key Jasso on 07-06-2023 Albumin [Mass/Vol] 3.3 g/dL 3.2-5.0 [facility] Serum or plasma albumin/glob ulin mass ratioOrdered By: Key Jasso on 07-06-2023 Albumin/Globulin [Mass ratio] 0.8 {ratio} 0.9-2.4 [facility] Serum or plasma calcium lisa urement (mass/volume)Ordered By: Key Jasso on 07-06-2023 Calcium [Mass/Vol] 9.4 mg/dL 8.5-10.1 [facility] Serum or plasma creatinine m easurement (mass/volume)Ordered By: Key Jasso on 07-06-2023 Creatinine [Mass/Vol] 1.52 mg/dL 0.70-1.30 [facility] Comment on above: The validity of the calculated GFR & GFRAA in patients over 70 years has not been determined. Clinical correlation is essential. Serum or plasma urea nitroge n measurement (mass/volume)Ordered By: Key Jasso on 07-06-2023 Urea nitrogen [Mass/Vol] 31 mg/dL 7-18 [facility] Thin prep Papanicolaou smear with manual screeningOrdered By: Key Jasso on 07-06-2023 Thin prep Papanicolaou smear with manual screening 19 U/L 15-37 [facility] Thin prep Papanicolaou smear with manual screening 9 5-15 [facility] Basophil percentageOrdered B y: Key Jasso on 06-26-2023 Basophil percentage 3.8 mg/dL 2.5-4.9 [facility] Chloride [Moles/Vol] 103 mmol/L 98-107 [facility] Glucose [Mass/Vol] 202 mg/dL 74-106 [facility] Comment on above: Glucose result great er than or equal to 200 mg/dLsuggests DIABETES MELLITUS per A.D.A. criteria. Potassium [Moles/Vol] 4.6 mmol/L 3.5-5.1 [facility] Comment on above: Slight Hemolysis, Re sult may be falsely increased. Sodium [Moles/Vol] 136 mmol/L 136-145 [facility] INR in Blood by Coagulation assayOrdered By: Key Jasso on 06-26-2023 INR Coag (Bld) [Relative time] 2.9 {INR} [facility] Laboratory - Chemistry and C hemistry - challengeOrdered By: Key Jasso on 06-26-2023 CO2 [Moles/Vol] 26.0 mmol/L 21.0-32.0 [facility] Magnesium [Mass/Vol] 2.3 mg/dL 1.6-2.6 [facility] Comment on above: Slight Hemolysis, Re sult may be falsely increased. Urea nitrogen/Creatinine [Mass ratio] 22.2 mg/mg 06-05 [facility] Laboratory - CoagulationOrde red By: Key Jasso on 06-26-2023 PT Coag (PPP) [Time] 30.3 s 11.7-14.9 [facility] No Panel InformationOrdered By: Key Jasso on 06-26-2023 Estimated GFR (MDRD) Amer 44 mL/min >60 [facility] Comment on above: GFR Calc Estimated GFR (MDRD) Non-Af Amer 37 mL/min >60 [facility] Comment on above: Non- GFR Calc Serum or plasma albumin lisa urement (mass/volume)Ordered By: Key Jasso on 06-26-2023 Albumin [Mass/Vol] 3.4 g/dL 3.2-5.0 [facility] Serum or plasma calcium lisa urement (mass/volume)Ordered By: Key Jasso on 06-26-2023 Calcium [Mass/Vol] 9.3 mg/dL 8.5-10.1 [facility] Serum or plasma creatinine m easurement (mass/volume)Ordered By: Key Jasso on 06-26-2023 Creatinine [Mass/Vol] 1.94 mg/dL 0.70-1.30 [facility] Comment on above: The validity of the calculated GFR & GFRAA in patients over 70 years has not been determined. Clinical correlation is essential. Serum or plasma urea nitroge n measurement (mass/volume)Ordered By: Key Jasso on 06-26-2023 Urea nitrogen [Mass/Vol] 43 mg/dL 7-18 [facility] Absolute lymphocyte countOrd ered By: Key Jasso on 06-22-2023 Lymphocytes Auto (Unsp spec) [#/Vol] 1.45 10*3/uL 0.83-4.51 [facility] Basophil percentageOrdered B y: Key Jasso on 06-22-2023 Basophil percentage 0 SEEN /hpf 0-5 [facility] Basophil percentage 3.8 mg/dL 2.5-4.9 [facility] Basophils/100 WBC (Bld) 0.8 % 0-1 [facility] Bilirubin [Mass/Vol] 0.90 mg/dL 0.20-1.00 [facility] Comment on above: For patients on eltr ombopag therapy, use of Dimension [place] TBIL is not recommended. Chloride [Moles/Vol] 103 mmol/L 98-107 [facility] Cholesterol [Mass/Vol] 270 mg/dL <200 [facility] Comment on above: <200 mg/dL Desirable 200-240 mg/dL Borderline >240 mg/dL High Risk Eosinophils/100 WBC (Bld) 1.0 % 0-5 [facility] Glucose [Mass/Vol] 215 mg/dL 74-106 [facility] Comment on above: Glucose result great er than or equal to 200 mg/dLsuggests DIABETES MELLITUS per A.D.A. criteria. Neutrophils (Bld) [#/Vol] 4.9 10*3/uL 2.0-7.7 [facility] Neutrophils/100 WBC (Bld) 68.9 % 47-70 [facility] Potassium [Moles/Vol] 4.5 mmol/L 3.5-5.1 [facility] Comment on above: Slight Hemolysis, Re sult may be falsely increased. Protein [Mass/Vol] 7.2 g/dL 6.4-8.2 [facility] Sodium [Moles/Vol] 134 mmol/L 136-145 [facility] Triglyceride [Mass/Vol] 712 mg/dL <199 [facility] Comment on above: The drugs N-Acetylcy steine and Metamizole may falsely depress this assay. TRIGLYCERIDE IS GREATER THAN 400 mg/dL. LDL RESULT IS INVALID AND WILL NOT BE REPORTED.Serum Triglycerides Reference Interval Normal <150 mg/dL Borderline high 150 - 199 mg/dL High 200 - 499 mg/dL Very High > or = 500 mg/dL WBC (Bld) [#/Vol] 7.1 10*3/uL 4.4-11.0 [facility] Bilirubin Test strip Ql (U)O rdered By: Key Jasso on 06-22-2023 Bilirubin Ql (U) Negative Negative [facility] Blood erythrocytes count (nu mber/volume)Ordered By: Key Jasso on 06-22-2023 RBC (Bld) [#/Vol] 5.12 10*6/uL 4.6-6.2 [facility] Blood hemoglobin measurement (mass/volume)Ordered By: Key Jasso on 06-22-2023 Hemoglobin (Bld) [Mass/Vol] 15.4 g/dL 13.0-16.5 [facility] Blood lymphocytes/100 leukoc ytesOrdered By: Key Jasso on 06-22-2023 Lymphocytes/100 WBC (Bld) 20.5 % 19-41 [facility] Blood monocytes/100 leukocyt esOrdered By: Key Jasso on 06-22-2023 Monocytes/100 WBC (Bld) 8.1 % 0-10 [facility] Blood platelet mean volumeOr dered By: Key Jasso on 06-22-2023 Platelet mean volume (Bld) [Entitic vol] 9.9 fL 6.2-12.0 [facility] Determination of erythrocyte mean corpuscular volume (MCV)Ordered By: Key Jasso on 06-22-2023 MCV (RBC) [Entitic vol] 95.3 fL 80-94 [facility] Direct bilirubinOrdered By: Key Jasso on 06-22-2023 Bilirubin.direct [Mass/Vol] 0.09 mg/dL 0.00-0.30 [facility] Hematocrit Auto (Bld) [Volum e fraction]Ordered By: Key Jasso on 06-22-2023 Hematocrit (Bld) [Volume fraction] 48.8 % 40-54 [facility] INR in Blood by Coagulation assayOrdered By: Key Jasso on 06-22-2023 INR Coag (Bld) [Relative time] 2.3 {INR} [facility] Ketones Test strip Ql (U)Ord ered By: Key Jasso on 06-22-2023 Ketones Ql (U) Negative Negative [facility] Laboratory - Chemistry and C hemistry - challengeOrdered By: Key Jasso on 06-22-2023 ALP [Catalytic activity/Vol] 85 U/L 45-117 [facility] ALT [Catalytic activity/Vol] 46 U/L 16-61 [facility] CO2 [Moles/Vol] 22.0 mmol/L 21.0-32.0 [facility] Globulin (S) [Mass/Vol] 3.8 g/dL 2.2-4.2 [facility] Urea nitrogen/Creatinine [Mass ratio] 22.2 mg/mg 10-20 [facility] Laboratory - CoagulationOrde red By: Key Jasso on 06-22-2023 PT Coag (PPP) [Time] 25.8 s 11.7-14.9 [facility] Laboratory - Hematology and Cell countsOrdered By: Key Jasso on 06-22-2023 Erythrocyte distribution width (RBC) [Entitic vol] 59.3 fL 35.1-43.9 [facility] Erythrocyte distribution width (RBC) [Ratio] 17.1 % 11.6-14.6 [facility] Immature granulocytes/100 WBC (Bld) 0.700 % 0.0-0.9 [facility] Comment on above: IG% - Immature Granu locytes (promyelocytes, myelocytes and metamyelocytes) > 1% indicates that a LEFT SHIFT is Present. MCH (RBC) [Entitic mass] 30.1 pg 27.0-32.0 [facility] Nucleated RBC/100 WBC (Bld) [Ratio] 0 % 0-5 [facility] MCHC Auto (RBC) [Mass/Vol]Or dered By: Key Jasso on 06-22-2023 MCHC (RBC) [Mass/Vol] 31.6 g/dL 32-36 [facility] Mucus LM Ql (Urine sed)Order ed By: Key Jasso on 06-22-2023 Mucus Ql (Urine sed) 0 SEEN /hpf [facility] Nitrite Test strip Ql (U)Ord ered By: Key Jasso on 06-22-2023 Nitrite Ql (U) Negative Negative [facility] No Panel InformationOrdered By: Key Jasso on 06-22-2023 Estimated GFR (MDRD) Amer 38 mL/min >60 [facility] Comment on above: GFR Calc Estimated GFR (MDRD) Non-Af Amer 31 mL/min >60 [facility] Comment on above: Non- GFR Calc Urine Microalbumin/Creatinin e Ratio 48.5 mg/g CRE <30 [facility] Platelets bldOrdered By: Colleen Jasso on 06-22-2023 Platelets (Bld) [#/Vol] 293 10*3/uL 150-450 [facility] Protein Test strip Ql (U)Ord ered By: Key Jasso on 06-22-2023 Protein Ql (U) 15 mg/dl Negative [facility] Serum or plasma albumin lisa urement (mass/volume)Ordered By: Key Jasso on 06-22-2023 Albumin [Mass/Vol] 3.4 g/dL 3.2-5.0 [facility] Serum or plasma albumin/glob ulin mass ratioOrdered By: Key Jasso on 06-22-2023 Albumin/Globulin [Mass ratio] 0.9 {ratio} 0.9-2.4 [facility] Serum or plasma calcium lisa urement (mass/volume)Ordered By: Key Jasso on 06-22-2023 Calcium [Mass/Vol] 8.9 mg/dL 8.5-10.1 [facility] Serum or plasma cholesterol in HDL measurement (mass/volume)Ordered By: Key Jasso on 06-22-2023 Cholesterol in HDL [Mass/Vol] 31 mg/dL >40 [facility] Comment on above: The drugs N-Acetylcy steine and Metamizole may falsely depress this assay. Reference Range HDL <40 mg/dL Low HDL Cholesterol HDL >or= 60 mg/dL High HDL Cholesterol Serum or plasma cholesterol in VLDL measurement (mass/volume)Ordered By: Key Jasso on 06-22-2023 Cholesterol in VLDL [Mass/Vol] [facility] Comment on above: Test not performed Serum or plasma creatinine m easurement (mass/volume)Ordered By: Key Jasso on 06-22-2023 Creatinine [Mass/Vol] 2.21 mg/dL 0.70-1.30 [facility] Comment on above: The validity of the calculated GFR & GFRAA in patients over 70 years has not been determined. Clinical correlation is essential. Serum or plasma low density lipoprotein (LDL) cholesterol measurement (mass/volume)Ordered By: Key Jasso on 06-22-2023 Cholesterol in LDL [Mass/Vol] [facility] Comment on above: Test not performed Serum or plasma urea nitroge n measurement (mass/volume)Ordered By: Key Jasso on 06-22-2023 Urea nitrogen [Mass/Vol] 49 mg/dL 7-18 [facility] Squamous epithelial cells de tection in urine sediment by light microscopyOrdered By: Key Jasso on 06-22-2023 Epithelial cells.squamous LM Ql (Urine sed) 0 SEEN /hpf 0-5 [facility] Thin prep Papanicolaou smear with manual screeningOrdered By: Key Jasso on 06-22-2023 Thin prep Papanicolaou smear with manual screening 26 U/L 15-37 [facility] Comment on above: Slight Hemolysis, Re sult may be falsely increased. Thin prep Papanicolaou smear with manual screening 9 5-15 [facility] Thin prep Papanicolaou smear with manual screening 44.0 mg/L NO RANGE EST. [facility] Urine blood detectionOrdered By: Key Jasso on 06-22-2023 RBC Ql (U) Negative Negative [facility] RBC Ql (U) 0 SEEN /hpf 0-5 [facility] Urine clarityOrdered By: Colleen Jasso on 06-22-2023 Clarity (U) Clear Clear [facility] Urine color determinationOrd ered By: Key Jasso on 06-22-2023 Color (U) Yellow Yellow [facility] Urine creatinine measurement (mass/volume)Ordered By: Key Jasso on 06-22-2023 Creatinine (U) [Mass/Vol] 90.70 mg/dL NO RANGE EST. [facility] Urine glucose detectionOrder ed By: Key Jasso on 06-22-2023 Glucose Ql (U) 1000 mg/dl Normal [facility] Urine leukocyte esterase det ection by dipstickOrdered By: Key Jasso on 06-22-2023 Leukocyte esterase Test strip Ql (U) Negative Negative [facility] Urine pHOrdered By: Key dewitt on 06-22-2023 pH (U) 5.0 [pH] 5.0 - 8.0 [facility] Urine sediment bacteria coun t by microscopy (number/high power field)Ordered By: Key Jasso on 06-22-2023 Bacteria LM.HPF (Urine sed) [#/Area] 0 /[HPF] None Seen [facility] Urine specific gravity measu rementOrdered By: Key Jasso on 06-22-2023 Specific gravity (U) [Rel density] 1.015 1.002-1.030 [facility] Urobilinogen Auto test strip Ql (U)Ordered By: Key Jasso on 06-22-2023 Urobilinogen Ql (U) Normal mg/dl Normal [facility] Whole blood hemoglobin A1c/t otal hemoglobin ratio (mass fraction)Ordered By: Key Jasso on 06-22-2023 HbA1c (Bld) [Mass fraction] 8.5 % 3.8-5.6 [facility] Comment on above: Normal < 5.7 % Predi abetic 5.7 - 6.4 % Diabetic >or= 6.5 % Please note range changes. CT FACIAL BONES WO IV CONTRA STon 06-19-2023 CT FACIAL BONES WO IV CONTRAST Interpreted By: Christopher Oconnell, Mani Green STUDY: CT FACIAL BONES WO IV CONTRAST 06/19/2023 8:30 am INDICATION: Signs/Symptoms:osteomyeli tis of maxilla COMPARISON: None. ACCESSION NUMBER(S): [id number] ORDERING CLINICIAN: NATIVIDAD RODRIGUEZ TECHNIQUE: Thin cut [...] Nuñez MD. This study was interpreted at [facility], [place], [place]. MACRO: None Signed by: Christopher Oconnell 06/19/2023 10:11 AM Dictation workstation: [id number] [facility] Comment on above: Order Comment: Daniel Martines elected: Y CT Maxillofacial region WO raimundo clemente 06-19-2023 Status post maxillec marla with myocutaneous flap reconstruction. No evidence of osteomyelitis. Improved now trace left mastoid effusion. I personally reviewed the images/study and I agree with the findings as stated by Peter Nuñez MD. This study was interpreted at [facility], [place], [place]. MACRO: None Signed by: Christopher Oconnell 06/19/2023 10:11 AM Dictation workstation: [id number] [facility] Interpreted By: Christopher Crook, and Joaquin Green STUDY: CT FACIAL BONES WO IV CONTRAST 06/19/2023 8:30 am INDICATION: Signs/Symptoms:osteomyeli tis of maxilla COMPARISON: None. ACCESSION NUMBER(S): [id number] ORDERING CLINICIAN: NATIVIDAD RODRIGUEZ TECHNIQUE: Thin cut [...] - 06/19/2023 Interpreted By: Christopher Oconnell, and Joaquni Green STUDY: CT FACIAL BONES WO IV CONTRAST 06/19/2023 8:30 am INDICATION: Signs/Symptoms:osteomyeli tis of maxilla COMPARISON: None. ACCESSION NUMBER(S): [id number] ORDERING CLINICIAN: NATIVIDAD RODRIGUEZ TECHNIQUE: Thin cut [...] Nuñez MD. This study was interpreted at [place], [place]. MACRO: None Signed by: Christopher Oconnell 06/19/2023 10:11 AM Dictation workstation: [id number] [facility] Work Phone: Radiology Study observation (narrative) [facility] Work Phone: CT Maxillofacial region WO c ontrastOrdered By: Christopher Oconnell on 06-19-2023 [facility] Work Phone: Blood Urea Nitrogen, Serumon 05-04-2023 Urea nitrogen [Mass/Vol] 29 mg/dL above high threshold 6 - 23 [facility] Work Phone: CREATININEon 05-04-2023 Creatinine [Mass/Vol] 1.68 mg/dL High 0.50 - 1.30 [facility] Comment on above: Performed By: #### C REAT ####[id number] [place] [address] GFR/1.73 sq M.predicted among non-blacks MDRD (S/P/Bld) [Vol rate/Area] 43 mL/min/{1.73_m2} Abnormal >90 [facility] Comment on above: Result Comment: CALC ULATIONS OF ESTIMATED GFR ARE PERFORMED USING THE 2020 CKD-EPI STUDY REFIT EQUATION WITHOUT THE RACE VARIABLE FOR THE IDMS-TRACEABLE CREATININE METHODS.https://jasn.asnjournals.org/content/early/A SN.5692372272 Performed By: #### C REAT ####[id number] [place] [address] Creatinine, Serumon 05-04-20 23 Creatinine [Mass/Vol] 1.68 [...] RACE VARIABLE FOR THE IDMS-TRACEABLE CREATININE METHODS.https://jasn.asnjournals.org/content/early/A SN.3497553871 Tobacco Screening.on 023 Adult depression screening assessment No [facility] Work Phone: Fall risk assessment a) No falls within the last year [facility] [address] Work Phone: Tobacco use status CPHS b) No [facility] [address] Work Phone: UREA NITROGENon 05-04-2023 Urea nitrogen [Mass/Vol] 29 mg/dL High 6 - 23 [facility] Comment on above: Performed By: #### U JOAQUINA ####[id number] [place] [address] ID - Follow Upon 03-31-2023 ID - [...] outside providers and finally was referred to [facility]-- in October underwent surgery and debridement with [...] SPRAYS IN EACH NOSTRIL ONCE DAILY; Therapy: [id number] to (Last Rx:[id number]) Requested for: 25Nov2022 Ordered Rx By: Natividad Rodriguez; Dispense: 0 Days ; #:1 X 15.8 ML Bottle; Refill: 12;For: Chronic sinusitis; KIA = N; Verified Transmission to [facility] #[id number] Chlorhexidine Gluconate 0.12 % Mouth/Throat Solution; RINSE MOUTH WITH 15ML (1 CAPFUL) FOR 30 SECONDS AM AND PM AFTER TOOTHBRUSHING. 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; Verified Transmission to [facility] #[id number] Doxycycline Hyclate 100 MG Oral Capsule; Take 1 capsule twice daily; Therapy: 19Dec2022 to (Evaluate:28Dec2023) Requested for: 02Jan2023; Last Rx:[id number] Ordered Rx By: Sadia Dickson; Dispense: 90 Days ; #:180 Capsule; Refill: 3;For: Osteomyelitis of maxilla; KIA = N; Verified Transmission to [facility] #[id number]; Last Updated By: [employer]; 03/31/2023 10:28:20 AM Chlorhexidine Gluconate 0.12 % [...] Chief Complaint follow up History of Present Alpwchj89 yo man who presents for evaluation of [...] Tablet Zinc TABS Vitals Vital Signs Recorded: [id number] 10:41AM Sfdrtdmerkl32.8 F Height6 ft 1 in Zeqgmq991 lb BMI Toojuvlvhi37.41 kg/m2 BSA Calculated2.47 Tobacco Useb) No PHQ-2 [...] Feb 23 2023 11:01AM EST (Author) Normal [employer] Absolute lymphocyte countOrd ered By: Key Jasso on 02-20-2023 Lymphocytes Auto (Unsp spec) [#/Vol] 1.54 10*3/uL 0.83-4.51 [facility] Basophil percentageOrdered B y: Keynevin Jasso on 02-20-2023 Basophils/100 WBC (Bld) 0.6 % 0-1 [facility] Bilirubin [Mass/Vol] 0.40 mg/dL 0.20-1.00 [facility] Comment on above: For patients on eltr ombopag therapy, use of Dimension [place] TBIL is not recommended. Chloride [Moles/Vol] 103 mmol/L 98-107 [facility] Eosinophils/100 WBC (Bld) 2.3 % 0-5 [facility] Glucose [Mass/Vol] 257 mg/dL 74-106 [facility] Comment on above: Glucose result great er than or equal to 200 mg/dLsuggests DIABETES MELLITUS per A.D.A. criteria. Neutrophils (Bld) [#/Vol] 7.0 10*3/uL 2.0-7.7 [facility] Neutrophils/100 WBC (Bld) 73.5 % 47-70 [facility] Potassium [Moles/Vol] 4.2 mmol/L 3.5-5.1 [facility] [facility] Comment on above: Slight Hemolysis, Re sult may be falsely increased. Protein [Mass/Vol] 7.3 g/dL 6.4-8.2 [facility] Sodium [Moles/Vol] 135 mmol/L 136-145 [facility] WBC (Bld) [#/Vol] 9.5 10*3/uL 4.4-11.0 [facility] Blood erythrocytes count (nu mber/volume)Ordered By: Key Jasso on 02-20-2023 RBC (Bld) [#/Vol] 4.82 10*6/uL 4.6-6.2 [facility] Blood hemoglobin measurement (mass/volume)Ordered By: Key Jasso on 02-20-2023 Hemoglobin (Bld) [Mass/Vol] 14.3 g/dL 13.0-16.5 [facility] Blood lymphocytes/100 leukoc ytesOrdered By: Key Jasso on 02-20-2023 Lymphocytes/100 WBC (Bld) 16.2 % 19-41 [facility] Blood monocytes/100 leukocyt esOrdered By: Key Jasso on 02-20-2023 Monocytes/100 WBC (Bld) 6.5 % 0-10 [facility] Blood platelet mean volumeOr dered By: Key Jasso on 02-20-2023 Platelet mean volume (Bld) [Entitic vol] 10.6 fL 6.2-12.0 [facility] Determination of erythrocyte mean corpuscular volume (MCV)Ordered By: Key Jasso on 02-20-2023 MCV (RBC) [Entitic vol] 95.9 fL 80-94 [facility] Erythrocyte sedimentation ra teOrdered By: Key Jasso on 02-20-2023 ESR (Bld) [Velocity] 37 mm/h 0-20 [facility] Hematocrit Auto (Bld) [Volum e fraction]Ordered By: Key Jasso on 02-20-2023 Hematocrit (Bld) [Volume fraction] 46.2 % 40-54 [facility] Laboratory - Chemistry and C hemistry - challengeOrdered By: Key Jasso on 02-20-2023 ALP [Catalytic activity/Vol] 81 U/L 45-117 [facility] ALT [Catalytic activity/Vol] 33 U/L 16-61 [facility] CO2 [Moles/Vol] 26.0 mmol/L 21.0-32.0 [facility] Globulin (S) [Mass/Vol] 4.1 g/dL 2.2-4.2 [facility] Urea nitrogen/Creatinine [Mass ratio] 17.0 mg/mg 10-20 [facility] Laboratory - Hematology and Cell countsOrdered By: Key Jasso on 02-20-2023 Erythrocyte distribution width (RBC) [Entitic vol] 50.7 fL 35.1-43.9 [facility] Erythrocyte distribution width (RBC) [Ratio] 14.5 % 11.6-14.6 [facility] Immature granulocytes/100 WBC (Bld) 0.900 % 0.0-0.9 [facility] Comment on above: IG% - Immature Granu locytes (promyelocytes, myelocytes and metamyelocytes) > 1% indicates that a LEFT SHIFT is Present. MCH (RBC) [Entitic mass] 29.7 pg 27.0-32.0 [facility] Nucleated RBC/100 WBC (Bld) [Ratio] 0 % 0-5 [facility] MCHC Auto (RBC) [Mass/Vol]Or dered By: Key Jasso on 02-20-2023 MCHC (RBC) [Mass/Vol] 31.0 g/dL 32-36 [facility] No Panel InformationOrdered By: Key Jasso on 02-20-2023 Estimated GFR (MDRD) Amer 41 mL/min >60 [facility] Comment on above: GFR Calc Estimated GFR (MDRD) Non-Af Amer 34 mL/min >60 [facility] Comment on above: Non- GFR Calc Platelets bldOrdered By: Colleen Jasso on 02-20-2023 Platelets (Bld) [#/Vol] 362 10*3/uL 150-450 [facility] Serum or plasma albumin lisa urement (mass/volume)Ordered By: Key Jasso on 02-20-2023 Albumin [Mass/Vol] 3.2 g/dL 3.2-5.0 [facility] Serum or plasma albumin/glob ulin mass ratioOrdered By: Key Jasso on 02-20-2023 Albumin/Globulin [Mass ratio] 0.8 {ratio} 0.9-2.4 [facility] Serum or plasma calcium lisa urement (mass/volume)Ordered By: Key Jasso on 02-20-2023 Calcium [Mass/Vol] 8.9 mg/dL 8.5-10.1 [facility] Serum or plasma creatinine m easurement (mass/volume)Ordered By: Key Jasso on 02-20-2023 Creatinine [Mass/Vol] 2.06 mg/dL 0.70-1.30 [facility] Comment on above: The validity of the calculated GFR & GFRAA in patients over 70 years has not been determined. Clinical correlation is essential. Serum or plasma urea nitroge n measurement (mass/volume)Ordered By: Key Jasso on 02-20-2023 Urea nitrogen [Mass/Vol] 35 mg/dL 7-18 [facility] Thin prep Papanicolaou smear with manual screeningOrdered By: Key Jasso on 02-20-2023 Thin prep Papanicolaou smear with manual screening 29 U/L 15-37 [facility] Comment on above: Slight Hemolysis, Re sult may be falsely increased. Thin prep Papanicolaou smear with manual screening 6 5-15 [facility] Whole blood hemoglobin A1c/t otal hemoglobin ratio (mass fraction)Ordered By: Key Jasso on 02-20-2023 HbA1c (Bld) [Mass fraction] 8.2 % 3.8-5.6 [facility] Comment on above: Normal < [...] Screening.on 023 Adult depression screening assessment No [facility] Work Phone: Fall risk assessment a) No falls within the last year [facility] 4100 Work Phone: Tobacco use status CPHS b) No -[facility]annock[facility] 4101 Work Phone: Established Visit (Otolaryng ology)on [...] Mens TABS (more content not included)... Normal [facility] Height or Weight NOT Doneon 01-19-2023 Adult depression screening assessment No [facility] 4100 Work Phone: Fall risk assessment a) No falls within the last year [facility] 4100 Work Phone: Tobacco use status CPHS b) No [facility] 4100 Work Phone: C Reactive Protein, Serumon 01-13-2023 CRP [Mass/Vol] 0.42 mg/dL [facility] 4100 Work Phone: Comment on above: REF VALUE< 1.00 C-REACTIVE PROTEINon 05-30-2 023 C-REACTIVE PROTEIN 0.42 mg/dL Normal [facility] Comment on above: Result Comment: REF VALUE< 1.00 Performed By: #### C RP ####[address] [address] CBC AND DIFFERENTIALon 01-13 % AUTOMATED IMMATURE GRAN 0.7 % Normal 0.0 - 0.9 [facility] Comment on above: Result Comment: Sarah ture Granulocyte Count (IG) includes promyelocytes, myelocytes and metamyelocytes but does not include bands. Percent differential counts (%) should be interpreted in the context of the absolute cell counts (cells/L). Performed By: #### C BCDF ####[place] [id number] Basophils (Bld) [#/Vol] 0.05 10*3/uL Normal 0.00 - 0.10 [facility] Comment on above: Performed By: #### C BCDF ####[place] [id number] Basophils/100 WBC (Bld) 0.5 % Normal 0.0 - 2.0 [facility] Comment on above: Performed By: #### C BCDF ####[address] [address] Eosinophils (Bld) [#/Vol] 0.17 10*3/uL Normal 0.00 - 0.70 [facility] Comment on above: Performed By: #### C BCDF ####[address] [address] Eosinophils/100 WBC (Bld) 1.7 % Normal 0.0 - 6.0 [facility] Comment on above: Performed By: #### C BCDF ####[address] [address] Erythrocyte distribution width (RBC) [Ratio] 14.8 % High 11.5 - 14.5 [facility] Comment on above: Performed By: #### C BCDF ####[address] [address] Hematocrit (Bld) [Volume fraction] 42.2 % Normal 41.0 - 52.0 [facility] Comment on above: Performed By: #### C BCDF ####[address] [address] Hemoglobin (Bld) [Mass/Vol] 13.4 g/dL Low 13.5 - 17.5 [facility] Comment on above: Performed By: #### C BCDF ####[address] [address] Lymphocytes (Bld) [#/Vol] 1.64 10*3/uL Normal 1.20 - 4.80 [facility] Comment on above: Performed By: #### C BCDF ####[address] [address] Lymphocytes/100 WBC (Bld) 16.8 % Normal 13.0 - 44.0 [facility] Comment on above: Performed By: #### C BCDF ####[address] [address] MCHC (RBC) [Mass/Vol] 31.8 g/dL Low 32.0 - 36.0 [facility] Comment on above: Performed By: #### C BCDF ####[address] [address] MCV (RBC) [Entitic vol] 96 fL Normal 80 - 100 [facility] Comment on above: Performed By: #### C BCDF ####[address] [address] Monocytes (Bld) [#/Vol] 0.75 10*3/uL Normal 0.10 - 1.00 [facility] Comment on above: Performed By: #### C BCDF ####[address] [address] Monocytes/100 WBC (Bld) 7.7 % Normal 2.0 - 10.0 [facility] Comment on above: Performed By: #### C BCDF ####[address] [address] Neutrophils (Bld) [#/Vol] 7.09 10*3/uL Normal 1.20 - 7.70 [facility] Comment on above: Result Comment: Perc ent differential counts (%) should be interpreted in the context of the absolute cell counts (cells/L). Performed By: #### C BCDF ####[address] [address] Neutrophils/100 WBC (Bld) 72.6 % Normal 40.0 - 80.0 [facility] Comment on above: Performed By: #### C BCDF ####[address] [address] Platelets (Bld) [#/Vol] 367 10*3/uL Normal 150 - 450 [facility] Comment on above: Performed By: #### C BCDF ####[address] [address] RBC 4.42 x10E12/L Low 4.50 - 5.90 [facility] Comment on above: Performed By: #### C BCDF ####[address] [address] WBC (Bld) [#/Vol] 9.8 10*3/uL Normal 4.4 - 11.3 [facility] Comment on above: Performed By: #### C BCDF ####[address] [address] Complete Blood Count + Diffe cathiroqueon 01-13-2023 Basophils/100 WBC (Bld) 0.5 % 0.0 - 2.0 [facility] 4100 Work Phone: Erythrocyte distribution width (RBC) [Ratio] 14.8 % above high threshold See Below [facility] 4100 Work Phone: Comment on above: Reference Range: 11. 5 - 14.5 Hematocrit (Bld) [Volume fraction] 42.2 % See Below [facility] 4100 Work Phone: Comment on above: Reference Range: 41. 0 - 52.0 Hemoglobin (Bld) [Mass/Vol] 13.4 g/dL below low threshold See Below [place] [address] Work Phone: [phone] Comment on above: Reference Range: 13. 5 - 17.5 Lymphocytes/100 WBC (Bld) 16.8 % See Below [facility]-Otolaryn gology-[place] [address] Work Phone: [phone] Comment on above: Reference Range: 13. 0 - 44.0 MCHC (RBC) [Mass/Vol] 31.8 g/dL below low threshold See Below -[place] [address] Work Phone: [phone] Comment on above: Reference Range: 32. 0 - 36.0 MCV (RBC) [Entitic vol] 96 fL 80 - 100 -[place] [address] Work Phone: [phone] Monocytes/100 WBC (Bld) 7.7 % 2.0 - 10.0 -[place] [address] Work Phone: [phone] Neutrophils/100 WBC (Bld) 72.6 % See Below -[place] [address] Work Phone: [phone] Comment on above: Reference Range: 40. 0 - 80.0 Platelets (Bld) [#/Vol] 367 10*3/uL 150 - 450 -[place] [address] Work Phone: [phone] RBC (Bld) [#/Vol] 4.42 {x10E12/L} below low threshold See Below -[place] [address] Work Phone: [phone] Comment on above: Reference Range: 4.5 0 - 5.90 WBC (Bld) [#/Vol] 9.8 10*3/uL 4.4 - 11.3 [facility]-[place] [address] Work Phone: [phone] Complete Blood Count + Differential 0.05 {x10E9/L} See Below [facility] 410 Work Phone: Comment on above: Reference Range: 0.0 0 - 0.10 Complete Blood Count + Differential 0.17 {x10E9/L} See Below [facility] 410 Work Phone: Comment on above: Reference Range: 0.0 0 - 0.70 Complete Blood Count + Differential 0.75 {x10E9/L} See Below [facility] 410 Work Phone: Comment on above: Reference Range: 0.1 0 - 1.00 Complete Blood Count + Differential 1.64 {x10E9/L} See Below [facility] 410 Work Phone: Comment on above: Reference Range: 1.2 0 - 4.80 Complete Blood Count + Differential 7.09 {x10E9/L} See Below [facility] 410 Work Phone: Comment on above: Reference Range: 1.2 0 - 7.70 Percent differential counts (%) should be interpreted in the context of the absolute cell counts (cells/L). Complete Blood Count + Differential 1.7 % 0.0 - 6.0 [place] [address] Work Phone: Complete Blood Count + Differential 0.7 % 0.0 - 0.9 [place] [address] Work Phone: Comment on above: Immature Granulocyte Count (IG) includes promyelocytes, myelocytes and metamyelocytes but does not include bands. Percent differential counts (%) should be interpreted in the context of the absolute cell counts (cells/L). Laboratory - Coagulationon 0 - INR Coag (PPP) [Relative time] 8.2 {INR} Critically abnormal 0.9 - 1.1 [facility] 4[facility] Work Phone: Comment on above: PT, PTINR CALLED RB TO SHARIDA , 01/13/2023 15:33 PT Coag (PPP) [Time] 97.0 s Critically abnormal 9.8 - 13.4 [facility]tolaryn [facility] 4100 Work Phone: Comment on above: PT, PTINR CALLED RB TO SHARIDA , 01/13/2023 15:33 PT/INRon 01-13-2023 PT Coag (PPP) [Time] 97.0 s Critically abnormal 9.8 - 13.4 [facility] Comment on above: Order Comment: PT, P TINR CALLED RB TO SHARIDA , 01/13/2023 15:33 Result Comment: PT, PTINR CALLED RB TO SHARIDA , 01/13/2023 15:33 Performed By: #### P TINR ####[place] [address] PT, INR 8.2 Critically abnormal 0.9 - 1.1 [facility] Comment on above: Order Comment: PT, P TINR CALLED RB TO SHARIDA , 01/13/2023 15:33 Result Comment: PT, PTINR CALLED RB TO SHARIDA , 01/13/2023 15:33 Performed By: #### P TINR ####[place] [address] RENAL FUNCTION PANELon 01-13 Albumin [Mass/Vol] 3.9 g/dL Normal 3.4 - 5.0 [facility] Comment on above: Performed By: #### R ENAL ####[address] [address] Anion gap [Moles/Vol] 16 mmol/L Normal 10 - 20 [facility] Comment on above: Performed By: #### R ENAL ####[place] [id number] Calcium [Mass/Vol] 9.8 mg/dL Normal 8.6 - 10.3 [facility] Comment on above: Performed By: #### R ENAL ####[address] [address] Chloride [Moles/Vol] 100 mmol/L Normal 98 - 107 [facility] Comment on above: Performed By: #### R ENAL ####[address] [address] Creatinine [Mass/Vol] 1.50 mg/dL High 0.50 - 1.30 [facility] Comment on above: Performed By: #### R ENAL ####[address] [address] GFR/1.73 sq M.predicted among non-blacks MDRD (S/P/Bld) [Vol rate/Area] 50 mL/min/{1.73_m2} Abnormal >90 [facility] Comment on above: Result Comment: CALC ULATIONS OF ESTIMATED GFR ARE PERFORMED USING THE 2020 CKD-EPI STUDY REFIT EQUATION WITHOUT THE RACE VARIABLE FOR THE IDMS-TRACEABLE CREATININE METHODS.https://jasn.asnjournals.org/content/early//A SN.3543840375 Performed By: #### R ENAL ####[address] [address] Glucose [Mass/Vol] 183 mg/dL High 74 - 99 [facility] Comment on above: Performed By: #### R ENAL ####[address] [address] HCO3 (Bld) [Moles/Vol] 22 mmol/L Normal 21 - 32 [facility] Comment on above: Performed By: #### R ENAL ####[address] [address] Phosphate [Mass/Vol] 3.3 mg/dL Normal 2.5 - 4.9 [facility] Comment on above: Result Comment: The performance characteristics of phosphorus testing in heparinized plasma have been validated by the individual laboratory site where testing is performed. Testing on heparinized plasma is not approved by the FDA; however, such approval is not necessary. Performed By: #### R ENAL ####[address] [place] [address] Potassium [Moles/Vol] 4.2 mmol/L Normal 3.5 - 5.3 [facility] Comment on above: Performed By: #### R ENAL ####[address] [address] Sodium [Moles/Vol] 134 mmol/L Low 136 - 145 [facility] Comment on above: Performed By: #### R ENAL ####[place] [id number] Urea nitrogen [Mass/Vol] 36 mg/dL High 6 - 23 [facility] Comment on above: Performed By: #### R ENAL ####[place] [address] Renal Function Panelon 01-13 Albumin BCP dye [Mass/Vol] 3.9 g/dL 3.4 - 5.0 [facility]-Otolaryn gology-[place] [address] Work Phone: [phone] Anion gap [Moles/Vol] 16 mmol/L 10 - 20 [facility]- Otolaryn gology-[facility] 4100 Work Phone: [phone] Calcium [Mass/Vol] 9.8 mg/dL 8.6 - 10.3 [facility]-Mao laryn gology-[place] [address] Work Phone: [phone] Chloride [Moles/Vol] 100 mmol/L 98 - 107 [facility]-O tolaryn gology-[facility] 4100 Work Phone: [phone] CO2 [Moles/Vol] 22 mmol/L 21 - 32 [facility]-Otolar yn gology-[facility] 4100 Work Phone: [phone] Creatinine [Mass/Vol] 1.50 mg/dL above high threshold See Below [facility]-Otolaryn gology-[place] [address] Work Phone: [phone] Comment on above: Reference Range: 0.5 0 - 1.30 Glucose [Mass/Vol] 183 mg/dL above high threshold 74 - 99 [facility]-Otolaryn gology-[facility] 4100 Work Phone: Phosphate [Mass/Vol] 3.3 mg/dL 2.5 - 4.9 MG-O tolaryn [facility] 4100 Work Phone: Comment on above: The performance violet acteristics of phosphorus testing in heparinized plasma have been validated by the individual laboratory site where testing is performed. Testing on heparinized plasma is not approved by the FDA; however, such approval is not necessary. Potassium [Moles/Vol] 4.2 mmol/L 3.5 - 5.3 [facility]- Otolaryn [facility] 4100 Work Phone: Sodium [Moles/Vol] 134 mmol/L below low threshold 136 - 145 MGOtshannockyn [facility] 4100 Work Phone: Urea nitrogen [Mass/Vol] 36 mg/dL above high threshold 6 - 23 MGOtolaryn [facility] 4100 Work Phone: Renal Function Panel 50 {mL/min/1.73m2} Abnormal >90 MGOtolaryn [facility]aley[facility] [address] Work Phone: Comment on above: CALCULATIONS OF REYNALDO MATED GFR ARE PERFORMED USING THE 2020 CKD-EPI STUDY REFIT EQUATION WITHOUT THE RACE VARIABLE FOR THE IDMS-TRACEABLE CREATININE METHODS.https://jasn.asnjournals.org/content/early/A SN.9424111250 C Reactive Protein, Serumon 01-06-2023 CRP [Mass/Vol] 0.63 mg/dL [facility]tolary n [facility] 4100 Work Phone: Comment on above: REF VALUE< 1.00 C-REACTIVE PROTEINon 023 C-REACTIVE PROTEIN 0.63 mg/dL Normal [facility] Comment on above: Order Comment: [facility] CARE TEAM 6 Result Comment: REF VALUE< 1.00 Performed By: #### C RP ####[address] [address] CBC AND DIFFERENTIALon 01-06 % AUTOMATED IMMATURE GRAN 1.1 % High 0.0 - 0.9 [facility] Comment on above: Order Comment: [facility] CARE TEAM 6 Result Comment: Sarah ture Granulocyte Count (IG) includes promyelocytes, myelocytes and metamyelocytes but does not include bands. Percent differential counts (%) should be interpreted in the context of the absolute cell counts (cells/L). Performed By: #### C BCDF ####[address] [address] Basophils (Bld) [#/Vol] 0.03 10*3/uL Normal 0.00 - 0.10 [facility] Comment on above: Order Comment: HO ME CARE TEAM 6 Performed By: #### C BCDF ####[address] [address] Basophils/100 WBC (Bld) 0.3 % Normal 0.0 - 2.0 [facility] Comment on above: Order Comment: HO ME CARE TEAM 6 Performed By: #### C BCDF ####[address] [address] Eosinophils (Bld) [#/Vol] 0.19 10*3/uL Normal 0.00 - 0.70 [facility] Comment on above: Order Comment: HO ME CARE TEAM 6 Performed By: #### C BCDF ####[address] [address] Eosinophils/100 WBC (Bld) 2.1 % Normal 0.0 - 6.0 [facility] Comment on above: Order Comment: HO ME CARE TEAM 6 Performed By: #### C BCDF ####[address] [address] Erythrocyte distribution width (RBC) [Ratio] 15.1 % High 11.5 - 14.5 [facility] Comment on above: Order Comment: HO ME CARE TEAM 6 Performed By: #### C BCDF ####[address] [address] Hematocrit (Bld) [Volume fraction] 45.8 % Normal 41.0 - 52.0 [facility] Comment on above: Order Comment: [facility] HO ME CARE TEAM 6 Performed By: #### C BCDF ####[address] [address] Hemoglobin (Bld) [Mass/Vol] 14.2 g/dL Normal 13.5 - 17.5 [facility] Comment on above: Order Comment: [facility] HO ME CARE TEAM 6 Performed By: #### C BCDF ####[address] [address] Lymphocytes (Bld) [#/Vol] 1.41 10*3/uL Normal 1.20 - 4.80 [facility] Comment on above: Order Comment: [facility] HO ME CARE TEAM 6 Performed By: #### C BCDF ####[address] [address] Lymphocytes/100 WBC (Bld) 15.7 % Normal 13.0 - 44.0 [facility] Comment on above: Order Comment: [facility] HO ME CARE TEAM 6 Performed By: #### C BCDF ####[address] [address] MCHC (RBC) [Mass/Vol] 31.0 g/dL Low 32.0 - 36.0 [facility] Comment on above: Order Comment: [facility] HO ME CARE TEAM 6 Performed By: #### C BCDF ####[address] [address] MCV (RBC) [Entitic vol] 98 fL Normal 80 - 100 [facility] Comment on above: Order Comment: [facility] HO ME CARE TEAM 6 Performed By: #### C BCDF ####[address] [address] Monocytes (Bld) [#/Vol] 0.74 10*3/uL Normal 0.10 - 1.00 [facility] Comment on above: Order Comment: [facility] HO ME CARE TEAM 6 Performed By: #### C BCDF ####[address] [address] Monocytes/100 WBC (Bld) 8.2 % Normal 2.0 - 10.0 [facility] Comment on above: Order Comment: HO ME CARE TEAM 6 Performed By: #### C BCDF ####[address] [address] Neutrophils (Bld) [#/Vol] 6.50 10*3/uL Normal 1.20 - 7.70 [facility] Comment on above: Order Comment: HO ME CARE TEAM 6 Result Comment: Perc ent differential counts (%) should be interpreted in the context of the absolute cell counts (cells/L). Performed By: #### C BCDF ####[address] [address] Neutrophils/100 WBC (Bld) 72.6 % Normal 40.0 - 80.0 [facility] Comment on above: Order Comment: HO ME CARE TEAM 6 Performed By: #### C BCDF ####[address] [address] Platelets (Bld) [#/Vol] 373 10*3/uL Normal 150 - 450 [facility] Comment on above: Order Comment: HO ME CARE TEAM 6 Performed By: #### C BCDF ####[address] [address] RBC 4.67 x10E12/L Normal 4.50 - 5.90 [facility] Comment on above: Order Comment: HO ME CARE TEAM 6 Performed By: #### C BCDF ####[address] [address] WBC (Bld) [#/Vol] 9.0 10*3/uL Normal 4.4 - 11.3 [facility] Comment on above: Order Comment: HO ME CARE TEAM 6 Performed By: #### C BCDF ####[address] [address] Complete Blood Count + Diffe yulisa 01-06-2023 Basophils/100 WBC (Bld) 0.3 % 0.0 - 2.0 -[facility]aryn [facility]ologyCH[facility] 7414 Work Phone: Erythrocyte distribution width (RBC) [Ratio] 15.1 % above high threshold See Below [facility] [place] [address] Work Phone: [phone] Comment on above: Reference Range: 11. 5 - 14.5 Hematocrit (Bld) [Volume fraction] 45.8 % See Below [place] [address] Work Phone: [phone] Comment on above: Reference Range: 41. 0 - 52.0 Hemoglobin (Bld) [Mass/Vol] 14.2 g/dL See Below [place] [address] Work Phone: [phone] Comment on above: Reference Range: 13. 5 - 17.5 Lymphocytes/100 WBC (Bld) 15.7 % See Below [place] [address] Work Phone: [phone] Comment on above: Reference Range: 13. 0 - 44.0 MCHC (RBC) [Mass/Vol] 31.0 g/dL below low threshold See Below [place] [address] Work Phone: [phone] Comment on above: Reference Range: 32. 0 - 36.0 MCV (RBC) [Entitic vol] 98 fL 80 - 100 [place] [address] Work Phone: [phone] Monocytes/100 WBC (Bld) 8.2 % 2.0 - 10.0 [place] [address] Work Phone: [phone] Neutrophils/100 WBC (Bld) 72.6 % See Below [place] [address] Work Phone: [phone] Comment on above: Reference Range: 40. 0 - 80.0 Platelets (Bld) [#/Vol] 373 10*3/uL 150 - 450 [place] [address] Work Phone: [phone] RBC (Bld) [#/Vol] 4.67 {x10E12/L} See Below [facility] – ENIDOtolaryn gologyJennifer [place] [address] Work Phone: Comment on above: Reference Range: 4.5 0 - 5.90 WBC (Bld) [#/Vol] 9.0 10*3/uL 4.4 - 11.3 -Mao larlisbet [facility] medical centerogyJennifer [place] [address] Work Phone: Complete Blood Count + Differential 0.03 {x10E9/L} See Below [facility]aryn [facility] centerogyJennifer [place] [address] Work Phone: Comment on above: Reference Range: 0.0 0 - 0.10 Complete Blood Count + Differential 0.19 {x10E9/L} See Below [facility]tolaryn [facility] centerogyJennifer [place] [address] Work Phone: Comment on above: Reference Range: 0.0 0 - 0.70 Complete Blood Count + Differential 0.74 {x10E9/L} See Below [facility] [place]tol[place]ologyJ[place] [address] Work Phone: Comment on above: Reference Range: 0.1 0 - 1.00 Complete Blood Count + Differential 1.41 {x10E9/L} See Below [facility] [place] [address] Work Phone: Comment on above: Reference Range: 1.2 0 - 4.80 Complete Blood Count + Differential 6.50 {x10E9/L} See Below [facility] [place]tol[place]ologyJ[place] [address] Work Phone: Comment on above: Reference Range: 1.2 0 - 7.70 Percent differential counts (%) should be interpreted in the context of the absolute cell counts (cells/L). Complete Blood Count + Differential 2.1 % 0.0 - 6.0 [facility]ANDOtshannockyn [facility] medical centerogyJennifer [place] [address] Work Phone: Complete Blood Count + Differential 1.1 % above high threshold 0.0 - 0.9 MG-Otolaryn gology-[facility] 4100 Work Phone: Comment on above: Immature Granulocyte Count (IG) includes promyelocytes, myelocytes and metamyelocytes but does not include bands. Percent differential counts (%) should be interpreted in the context of the absolute cell counts (cells/L). RENAL FUNCTION PANELon 01-06 Albumin [Mass/Vol] 4.4 g/dL Normal 3.4 - 5.0 [facility] Comment on above: Order Comment: [facility] [[email or web address] ME CARE TEAM 6 Performed By: #### R ENAL ####[address] [address] Anion gap [Moles/Vol] 19 mmol/L Normal 10 - 20 [facility] Comment on above: Order Comment: [facility] [[email or web address] ME CARE TEAM 6 Performed By: #### R ENAL ####[address] [address] Calcium [Mass/Vol] 10.2 mg/dL Normal 8.6 - 10.3 [facility] Comment on above: Order Comment: [facility] [[email or web address] ME CARE TEAM 6 Performed By: #### R ENAL ####[address] [address] Chloride [Moles/Vol] 98 mmol/L Normal 98 - 107 [facility] Comment on above: Order Comment: [facility] [[email or web address] ME CARE TEAM 6 Performed By: #### R ENAL ####[address] [address] Creatinine [Mass/Vol] 1.80 mg/dL High 0.50 - 1.30 [facility] Comment on above: Order Comment: [facility] [[email or web address] ME CARE TEAM 6 Performed By: #### R ENAL ####[address] [address] GFR/1.73 sq M.predicted among non-blacks MDRD (S/P/Bld) [Vol rate/Area] 40 mL/min/{1.73_m2} Abnormal >90 [facility] Comment on above: Order Comment: [facility] ME CARE TEAM 6 Result Comment: CALC ULATIONS OF ESTIMATED GFR ARE PERFORMED USING THE 2020 CKD-EPI STUDY REFIT EQUATION WITHOUT THE RACE VARIABLE FOR THE IDMS-TRACEABLE CREATININE METHODS.https://jasn.asnjournals.org/content//A SN.4535501339 Performed By: #### R ENAL ####[address] [address] Glucose [Mass/Vol] 249 mg/dL High 74 - 99 [facility] Comment on above: Order Comment: [facility] CARE TEAM 6 Performed By: #### R ENAL ####[address] [address] HCO3 (Bld) [Moles/Vol] 24 mmol/L Normal 21 - 32 [facility] Comment on above: Order Comment: [facility] CARE TEAM 6 Performed By: #### R ENAL ####[address] [address] Phosphate [Mass/Vol] 3.6 mg/dL Normal 2.5 - 4.9 [facility] Comment on above: Order Comment: [facility] CARE TEAM 6 Result Comment: The performance characteristics of phosphorus testing in heparinized plasma have been validated by the individual laboratory site where testing is performed. Testing on heparinized plasma is not approved by the FDA; however, such approval is not necessary. Performed By: #### R ENAL ####[address] [address] Potassium [Moles/Vol] 3.8 mmol/L Normal 3.5 - 5.3 [facility] Comment on above: Order Comment: [facility] CARE TEAM 6 Performed By: #### R ENAL ####[address] [address] Sodium [Moles/Vol] 137 mmol/L Normal 136 - 145 [facility] Comment on above: Order Comment: [facility] CARE TEAM 6 Performed By: #### R ENAL ####[address] [address] Urea nitrogen [Mass/Vol] 60 mg/dL High 6 - 23 [facility] Comment on above: Order Comment: [facility] CARE TEAM 6 Performed By: #### R ENAL ####[place] [address] [place] [address] Renal Function Panelon 01-06 Albumin BCP dye [Mass/Vol] 4.4 g/dL 3.4 - 5.0 MG-Otolaryn gology-[facility] 4100 Work Phone: [phone] Anion gap [Moles/Vol] 19 mmol/L 10 - 20 MG- Otolaryn gology-[facility] 4100 Work Phone: [phone] Calcium [Mass/Vol] 10.2 mg/dL 8.6 - 10.3 MG-Mao laryn gology-[facility] 4100 Work Phone: [phone] Chloride [Moles/Vol] 98 mmol/L 98 - 107 MG-O tolaryn gology-[facility] 4100 Work Phone: [phone] CO2 [Moles/Vol] 24 mmol/L 21 - 32 MG-Otolar yn gology-[facility] 4100 Work Phone: [phone] Creatinine [Mass/Vol] 1.80 mg/dL above high threshold See Below [facility]-Otolaryn [facility] 4100 Work Phone: [phone] Comment on above: Reference Range: 0.5 0 - 1.30 Glucose [Mass/Vol] 249 mg/dL above high threshold 74 - 99 MG-Otolaryn gology-[facility] 4100 Work Phone: [phone] Phosphate [Mass/Vol] 3.6 mg/dL 2.5 - 4.9 MG-O tolaryn gology-[facility] 4100 Work Phone: [phone] Comment on above: The performance violet acteristics of phosphorus testing in heparinized plasma have been validated by the individual laboratory site where testing is performed. Testing on heparinized plasma is not approved by the FDA; however, such approval is not necessary. Potassium [Moles/Vol] 3.8 mmol/L 3.5 - 5.3 MG- Otolaryn gology-[facility] 4100 Work Phone: Sodium [Moles/Vol] 137 mmol/L 136 - 145 MG-Mao laryn [facility] 4100 Work Phone: Urea nitrogen [Mass/Vol] 60 mg/dL above high threshold 6 - 23 [facility]aryn [facility] 4100 Work Phone: Renal Function Panel 40 {mL/min/1.73m2} Abnormal >90 MG-Otolaryn [facility] 4100 Work Phone: Comment on above: CALCULATIONS OF REYNALDO MATED GFR ARE PERFORMED USING THE 2020 CKD-EPI STUDY REFIT EQUATION WITHOUT THE RACE VARIABLE FOR THE IDMS-TRACEABLE CREATININE METHODS.https://jasn.asnjournals.org/content/early//A SN.6417004521 Established Visit (Otolaryng ology)on 01-05-2023 Established Visit [...] Chief Complaint follow up History of Present Xhgryjh53 yo man who presents for evaluation of [...] TABS Vitals Vital Signs Recorded: 05Jan2023 09:40AM Nguktqsktim02 F Height6 ft 1 in Vpzdku692 lb 9.6 oz BMI Wawammrdxd50.46 kg/m2 BSA Calculated2.38 Tobacco Useb) No PHQ-2 [...] Screening.on 023 Adult depression screening assessment No [facility]tolaryn FairlayyCH[facility] 87[facility] Work Phone: Fall risk assessment a) No falls within the last year [facility]AND[facility]tolaryn [facility] 4100 Work Phone: Tobacco use status CPHS b) No MG-[facility] 4102 Work Phone: ID - Hospital Follow Upon [...] outside providers and finally was referred to [facility]-- in October underwent surgery and debridement with [...] SPRAYS IN EACH NOSTRIL ONCE DAILY; Therapy: [id number] to (Last Rx:25Nov2022) Requested for: 25Nov2022 Ordered Rx By: Natividad Rodriguez; Dispense: 0 Days ; #:1 X 15.8 ML Bottle; Refill: 12; For: Chronic sinusitis; KIA = N; Verified Transmission to [facility] #[id number] Clindamycin HCl - 150 MG Oral Capsule; TAKE 3 CAPSULES EVERY 6 HOURS. 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; Verified Transmission to [facility] #[id number] Doxycycline Hyclate 100 MG Oral Capsule; Take 1 capsule twice daily; Therapy: 19Dec2022 to (Evaluate:[id number]) Requested for: 19Dec2022; Last Rx:19Dec2022 Ordered Rx By: Sadia Dickson; Dispense: 60 Days ; #:120 Capsule; Refill: 5; For: Osteomyelitis of maxilla; KIA = N; Verified Transmission to [facility] #[id number]; Last Updated By: Pb Doyle; 01/02/2023 10:12:41 AM Chlorhexidine Gluconate 0.12 % Mouth/Throat Solution; RINSE MOUTH WITH 15ML (1 CAPFUL) FOR 30 SECONDS AM AND PM AFTER TOOTHBRUSHING. EXPECTORATE AFTER RINSING, DO NOT SWALLOW; Therapy: 12Nov2022 to (Evaluate:[id number]); Last Rx:12Nov2022 Ordered Rx By: Leslee Hearn; [...] 0 Days (more content not included)... Normal [employer] GLUCOSE-[facility] 12-31-2022 Glucose [Mass/Vol] 143 mg/dL High 74 - 99 [facility] Comment on above: Performed By: #### G SUSAN ####[id number] [place] [address] Glucose [Mass/Vol] 180 mg/dL High 74 - 99 [facility] Comment on above: Performed By: #### G SUSAN ####[id number] [place] [address] Glucose Test strip manual (B ld) [Mass/Vol]on 12-31-2022 Glucose [Mass/Vol] 143 mg/dL High 74 - 99 mg/dL [facility] Interpretation and review of laboratory results Abnormal [facility] Glucose [Mass/Vol] 180 mg/dL High 74 - 99 mg/dL [facility] Interpretation and review of laboratory results Abnormal [facility] Laboratory - Chemistry and C hemistry - challengeon 12-31-2022 Glucose [Mass/Vol] 143 mg/dL above high threshold 74 - 99 MG-Otolaryn gology-[facility] 4100 Work Phone: Glucose [Mass/Vol] 180 mg/dL above high threshold 74 - 99 [facility]tolaryn [facility] 4100 Work Phone: Order Reconciliationon 12-31 Order Reconciliation Normal [facility] Established Visit (Otolaryng ology)on 12-29-2022 Established Visit [...] TABS Vitals Vital Signs Recorded: 29Dec2022 12:15PM Cixqdhmnywl74.6 F Height6 ft 1 in Weigh (more [...] 023 Adult depression screening assessment No [facility] 4100 Work Phone: Fall risk assessment a) No falls within the last year -Otolaryn [facility] 4100 Work Phone: Tobacco use status CPHS b) No [facility] 4100 Work Phone: Blood Pressure Cuff Sizeon 0 12-23-2022 Adult depression screening assessment No MG-Infectio us Disease-[facility] [employer] Work Phone: Tobacco use status CPHS b) No MG-Infectio us Disease-[facility] [employer] Work Phone: Blood Pressure Cuff Size Adult MG-Infectio us Disease-[facility] [employer] Work Phone: Established Visit (Otolaryng ology)on 12-23-2022 [...] Doxycycline Hycla (more content not included)... Normal [employer] BASIC METABOLIC PANELon 05-0 Anion gap [Moles/Vol] 13 mmol/L Normal 10 - 20 [facility] Comment on above: Order Comment: [facility] CARE TEAM 6 Performed By: #### B MP ####[address] [address] Calcium [Mass/Vol] 9.1 mg/dL Normal 8.6 - 10.3 [facility] Comment on above: Order Comment: [facility] CARE TEAM 6 Performed By: #### B MP ####[address] [address] Chloride [Moles/Vol] 102 mmol/L Normal 98 - 107 [facility] Comment on above: Order Comment: [facility] CARE TEAM 6 Performed By: #### B MP ####[address] [address] Creatinine [Mass/Vol] 1.67 mg/dL High 0.50 - 1.30 [facility] Comment on above: Order Comment: [facility] CARE TEAM 6 Performed By: #### B MP ####[address] [address] GFR/1.73 sq M.predicted among non-blacks MDRD (S/P/Bld) [Vol rate/Area] 44 mL/min/{1.73_m2} Abnormal >90 [facility] Comment on above: Order Comment: [facility] CARE TEAM 6 Result Comment: CALC ULATIONS OF ESTIMATED GFR ARE PERFORMED USING THE 2020 CKD-EPI STUDY REFIT EQUATION WITHOUT THE RACE VARIABLE FOR THE IDMS-TRACEABLE CREATININE METHODS.https://jasn.asnjournals.org/content/early//A SN.7437657951 Performed By: #### B MP ####[address] [address] Glucose [Mass/Vol] 117 mg/dL High 74 - 99 [facility] Comment on above: Order Comment: HO ME CARE TEAM 6 Performed By: #### B MP ####[address] [address] HCO3 (Bld) [Moles/Vol] 25 mmol/L Normal 21 - 32 [facility] Comment on above: Order Comment: HO ME CARE TEAM 6 Performed By: #### B MP ####[address] [address] Potassium [Moles/Vol] 4.0 mmol/L Normal 3.5 - 5.3 [facility] Comment on above: Order Comment: HO ME CARE TEAM 6 Performed By: #### B MP ####[address] [address] Sodium [Moles/Vol] 136 mmol/L Normal 136 - 145 [facility] Comment on above: Order Comment: HO ME CARE TEAM 6 Performed By: #### B MP ####[place] [id number] Urea nitrogen [Mass/Vol] 25 mg/dL High 6 - 23 [facility] Comment on above: Order Comment: HO ME CARE TEAM 6 Performed By: #### B MP ####[address] [address] C Reactive Protein, Serumon 12-22-2022 CRP [Mass/Vol] 0.87 mg/dL MG-Infecti o us Disease-[facility] [employer] Work Phone: Comment on above: REF VALUE< 1.00 C-REACTIVE PROTEINon 023 C-REACTIVE PROTEIN 0.87 mg/dL Normal [facility] Comment on above: Order Comment: HO ME CARE TEAM 6 Result Comment: REF VALUE< 1.00 Performed By: #### C RP ####[place] [id number] CBCon 12-22-2022 Erythrocyte distribution width (RBC) [Ratio] 15.8 % High 11.5 - 14.5 [facility] Comment on above: Order Comment: HO ME CARE TEAM 6 Performed By: #### C BC ####[address] [address] Hematocrit (Bld) [Volume fraction] 33.8 % Low 41.0 - 52.0 [facility] Comment on above: Order Comment: [facility] HO ME CARE TEAM 6 Performed By: #### C BC ####[address] [address] Hemoglobin (Bld) [Mass/Vol] 10.5 g/dL Low 13.5 - 17.5 [facility] Comment on above: Order Comment: [facility] HO ME CARE TEAM 6 Performed By: #### C BC ####[address] [address] MCHC (RBC) [Mass/Vol] 31.1 g/dL Low 32.0 - 36.0 [facility] Comment on above: Order Comment: [facility] HO ME CARE TEAM 6 Performed By: #### C BC ####[address] [address] MCV (RBC) [Entitic vol] 100 fL Normal 80 - 100 [facility] Comment on above: Order Comment: [facility] HO ME CARE TEAM 6 Performed By: #### C BC ####[address] [address] Platelets (Bld) [#/Vol] 392 10*3/uL Normal 150 - 450 [facility] Comment on above: Order Comment: [facility] HO ME CARE TEAM 6 Performed By: #### C BC ####[address] [address] RBC 3.37 x10E12/L Low 4.50 - 5.90 [facility] Comment on above: Order Comment: [facility] HO ME CARE TEAM 6 Performed By: #### C BC ####[address] [address] WBC (Bld) [#/Vol] 7.9 10*3/uL Normal 4.4 - 11.3 [facility] Comment on above: Order Comment: [facility] HO ME CARE TEAM 6 Performed By: #### C BC ####[address] [address] Laboratory - Chemistry and C hemistry - challengeon 12-22-2022 Anion gap [Moles/Vol] 13 mmol/L 10 - 20 [facility] [employer] Work Phone: Calcium [Mass/Vol] 9.1 mg/dL 8.6 - 10.3 MG-Inf ectio [facility] [employer] Work Phone: Chloride [Moles/Vol] 102 mmol/L 98 - 107 MG-I nfectio Disease-[facility] [employer] Work Phone: CO2 [Moles/Vol] 25 mmol/L 21 - 32 MG-Infect io us Disease-[facility] [employer] Work Phone: Creatinine [Mass/Vol] 1.67 mg/dL above high threshold See Below [facility] [employer] Work Phone: Comment on above: Reference Range: 0.5 0 - 1.30 Glucose [Mass/Vol] 117 mg/dL above high threshold 74 - 99 [facility] [employer] Work Phone: Potassium [Moles/Vol] 4.0 mmol/L 3.5 - 5.3 MG- [facility] [employer] Work Phone: Sodium [Moles/Vol] 136 mmol/L 136 - 145 MG-Inf ectio [facility] [employer] Work Phone: Urea nitrogen [Mass/Vol] 25 mg/dL above high threshold 6 - 23 [facility] [employer] Work Phone: Laboratory - Hematology and Cell countson 12-22-2022 Erythrocyte distribution width (RBC) [Ratio] 15.8 % above high threshold See Below [facility] [employer] Work Phone: Comment on above: Reference Range: 11. 5 - 14.5 Hematocrit (Bld) [Volume fraction] 33.8 % below low threshold See Below [facility] [employer] Work Phone: Comment on above: Reference Range: 41. 0 - 52.0 Hemoglobin (Bld) [Mass/Vol] 10.5 g/dL below low threshold See Below MG-Infectio [facility] [employer] Work Phone: Comment on above: Reference Range: 13. 5 - 17.5 MCHC (RBC) [Mass/Vol] 31.1 g/dL below low threshold See Below [facility] [employer] Work Phone: Comment on above: Reference Range: 32. 0 - 36.0 MCV (RBC) [Entitic vol] 100 fL 80 - 100 MG-Infectio [facility] [employer] Work Phone: Platelets (Bld) [#/Vol] 392 10*3/uL 150 - 450 MG-Infectio [facility] [employer] Work Phone: RBC (Bld) [#/Vol] 3.37 {x10E12/L} below low threshold See Below MG-Infectio [facility] [employer] Work Phone: Comment on above: Reference Range: 4.5 0 - 5.90 WBC (Bld) [#/Vol] 7.9 10*3/uL 4.4 - 11.3 MG-Inf ectio [facility] [employer] Work Phone: No Panel Informationon 12-22 44 {mL/min/1.73m2} Abnormal >90 MG-Inf ectio [facility] [employer] Phone: Comment on above: CALCULATIONS OF REYNALDO MATED GFR ARE PERFORMED USING THE 2020 CKD-EPI STUDY REFIT EQUATION WITHOUT THE RACE VARIABLE FOR THE IDMS-TRACEABLE CREATININE METHODS.https://jasn.asnjournals.org/content/early/A SN.3962530263 BASIC METABOLIC PANELon 05-0 Anion gap [Moles/Vol] 18 mmol/L Normal 10 - 20 [facility] Comment on above: Performed By: #### B MP ####[id number] [place] [address] Calcium [Mass/Vol] 9.5 mg/dL Normal 8.6 - 10.6 [facility] Comment on above: Performed By: #### B MP ####[id number] [place] [address] Chloride [Moles/Vol] 102 mmol/L Normal 98 - 107 [facility] Comment on above: Performed By: #### B MP ####[id number] [place] [address] Creatinine [Mass/Vol] 1.58 mg/dL High 0.50 - 1.30 [facility] Comment on above: Performed By: #### B MP ####[id number] [place] [address] GFR/1.73 sq M.predicted among non-blacks MDRD (S/P/Bld) [Vol rate/Area] 47 mL/min/{1.73_m2} Abnormal >90 [facility] Comment on above: Result Comment: CALC ULATIONS OF ESTIMATED GFR ARE PERFORMED USING THE 2020 CKD-EPI STUDY REFIT EQUATION WITHOUT THE RACE VARIABLE FOR THE IDMS-TRACEABLE CREATININE METHODS.https://jasn.asnjournals.org/content/early/A SN.3658366856 Performed By: #### B MP ####[id number] [place] [address] Glucose [Mass/Vol] 174 mg/dL High 74 - 99 [facility] Comment on above: Performed By: #### B MP ####[id number] [place] [address] HCO3 (Bld) [Moles/Vol] 26 mmol/L Normal 21 - 32 [facility] Comment on above: Performed By: #### B MP ####[id number] [place] [address] Potassium [Moles/Vol] 4.8 mmol/L Normal 3.5 - 5.3 [facility] Comment on above: Performed By: #### B MP ####[id number] [place] [address] Sodium [Moles/Vol] 141 mmol/L Normal 136 - 145 [facility] Comment on above: Performed By: #### B MP ####[id number] [place] [address] Urea nitrogen [Mass/Vol] 18 mg/dL Normal 6 - 23 [facility] Comment on above: Performed By: #### B MP ####[id number] [place] [address] C-REACTIVE PROTEINon 023 C-REACTIVE PROTEIN 1.82 mg/dL Abnormal [facility] Comment on above: Result Comment: REF VALUE< 1.00 Performed By: #### C RP ####[id number] [place] [address] CBC AND DIFFERENTIALon 12-19 % AUTOMATED IMMATURE GRAN 2.2 % High 0.0 - 0.9 [facility] Comment on above: Result Comment: Sarah ture Granulocyte Count (IG) includes promyelocytes, myelocytes and metamyelocytes but does not include bands. Percent differential counts (%) should be interpreted in the context of the absolute cell counts (cells/L). Performed By: #### C BCDF ####[id number] [place] [address] Basophils (Bld) [#/Vol] 0.08 10*3/uL Normal 0.00 - 0.10 [facility] Comment on above: Performed By: #### C BCDF ####[id number] [place] [address] Basophils/100 WBC (Bld) 0.8 % Normal 0.0 - 2.0 [facility] Comment on above: Performed By: #### C BCDF ####[id number] [place] [address] Eosinophils (Bld) [#/Vol] 0.29 10*3/uL Normal 0.00 - 0.70 [facility] Comment on above: Performed By: #### C BCDF ####[id number] [place] [address] Eosinophils/100 WBC (Bld) 3.0 % Normal 0.0 - 6.0 [facility] Comment on above: Performed By: #### C BCDF ####[id number] [place] [address] Erythrocyte distribution width (RBC) [Ratio] 16.0 % High 11.5 - 14.5 [facility] Comment on above: Performed By: #### C BCDF ####[id number] [place] [address] Hematocrit (Bld) [Volume fraction] 32.7 % Low 41.0 - 52.0 [facility] Comment on above: Performed By: #### C BCDF ####[id number] [place] [address] Hemoglobin (Bld) [Mass/Vol] 10.2 g/dL Low 13.5 - 17.5 [facility] Comment on above: Performed By: #### C BCDF ####[id number] [place] [address] Lymphocytes (Bld) [#/Vol] 1.79 10*3/uL Normal 1.20 - 4.80 [facility] Comment on above: Performed By: #### C BCDF ####[id number] [place] [address] Lymphocytes/100 WBC (Bld) 18.3 % Normal 13.0 - 44.0 [facility] Comment on above: Performed By: #### C BCDF ####[id number] [place] [address] MCHC (RBC) [Mass/Vol] 31.2 g/dL Low 32.0 - 36.0 [facility] Comment on above: Performed By: #### C BCDF ####[id number] [address] MCV (RBC) [Entitic vol] 100 fL Normal 80 - 100 [facility] Comment on above: Performed By: #### C BCDF ####[id number] [place] [address] Monocytes (Bld) [#/Vol] 0.77 10*3/uL Normal 0.10 - 1.00 [facility] Comment on above: Performed By: #### C BCDF ####[id number] [place] [address] Monocytes/100 WBC (Bld) 7.9 % Normal 2.0 - 10.0 [facility] Comment on above: Performed By: #### C BCDF ####[id number] [place] [address] Neutrophils (Bld) [#/Vol] 6.63 10*3/uL Normal 1.20 - 7.70 [facility] Comment on above: Performed By: #### C BCDF ####[id number] [place] [address] Neutrophils/100 WBC (Bld) 67.8 % Normal 40.0 - 80.0 [facility] Comment on above: Performed By: #### C BCDF ####[id number] [place] [address] NUCLEATED RBC 0.0 /100 WBC Normal 0.0-0.0 [facility] Comment on above: Performed By: #### C BCDF ####[id number] [place] [address] Platelets (Bld) [#/Vol] 429 10*3/uL Normal 150 - 450 [facility] Comment on above: Performed By: #### C BCDF ####[id number] [place] [address] RBC 3.27 x10E12/L Low 4.50 - 5.90 [facility] Comment on above: Performed By: #### C BCDF ####[id number] [place] [address] WBC (Bld) [#/Vol] 9.8 10*3/uL Normal 4.4 - 11.3 [facility] Comment on above: Performed By: #### C BCDF ####[id number] [place] [address] PT/INRon 12-19-2022 PT Coag (PPP) [Time] 28.6 s High 9.8 - 13.4 [facility] Comment on above: Performed By: #### P TINR ####[id number] [place] [address] PT, INR 2.4 High 0.9 - 1.1 [facility] Comment on above: Performed By: #### P TINR ####[id number] [place] [address] C Reactive Protein, Serumon 12-18-2022 CRP [Mass/Vol] 1.82 mg/dL Abnormal [facility] [employer] Work Phone: Comment on above: REF VALUE< 1.00 Complete Blood Count + Diffe rentialon 12-18-2022 Basophils/100 WBC (Bld) 0.8 % 0.0 - 2.0 [facility] [employer] Phone: Erythrocyte distribution width (RBC) [Ratio] 16.0 % above high threshold See Below MG-Infectio us [facility] [employer] Phone: Comment on above: Reference Range: 11. 5 - 14.5 Hematocrit (Bld) [Volume fraction] 32.7 % below low threshold See Below MG-Infectio us [facility] [employer] Phone: Comment on above: Reference Range: 41. 0 - 52.0 Hemoglobin (Bld) [Mass/Vol] 10.2 g/dL below low threshold See Below [facility] [employer] Phone: Comment on above: Reference Range: 13. 5 - 17.5 Lymphocytes/100 WBC (Bld) 18.3 % See Below [facility] [employer] Phone: Comment on above: Reference Range: 13. 0 - 44.0 MCHC (RBC) [Mass/Vol] 31.2 g/dL below low threshold See Below MG-Infectio us [facility] [employer] Phone: Comment on above: Reference Range: 32. 0 - 36.0 MCV (RBC) [Entitic vol] 100 fL 80 - 100 [facility] [employer] Work Phone: [phone] Monocytes/100 WBC (Bld) 7.9 % 2.0 - 10.0 MG-Infectio us Disease-[facility] [employer] Phone: [phone] Neutrophils/100 WBC (Bld) 67.8 % See Below [facility] [employer] Work Phone: [phone] Comment on above: Reference Range: 40. 0 - 80.0 Platelets (Bld) [#/Vol] 429 10*3/uL 150 - 450 [facility] [employer] Phone: [phone] RBC (Bld) [#/Vol] 3.27 {x10E12/L} below low threshold See Below MG-Infectio us [facility] [employer] Phone: [phone] Comment on above: Reference Range: 4.5 0 - 5.90 WBC (Bld) [#/Vol] 9.8 10*3/uL 4.4 - 11.3 MG-Inf ectio [facility] [employer] Phone: [phone] Complete Blood Count + Differential 0.08 {x10E9/L} See Below MG-Infectio us [facility] [employer] Phone: [phone] Comment on above: Reference Range: 0.0 0 - 0.10 Complete Blood Count + Differential 0.29 {x10E9/L} See Below [facility] [employer] Phone: Comment on above: Reference Range: 0.0 0 - 0.70 Complete Blood Count + Differential 0.77 {x10E9/L} See Below [facility] [employer] Phone: Comment on above: Reference Range: 0.1 0 - 1.00 Complete Blood Count + Differential 1.79 {x10E9/L} See Below [facility] [employer] Work Phone: Comment on above: Reference Range: 1.2 0 - 4.80 Complete Blood Count + Differential 6.63 {x10E9/L} See Below MG-Infectio [facility] [employer] Work Phone: Comment on above: Reference Range: 1.2 0 - 7.70 Complete Blood Count + Differential 3.0 % 0.0 - 6.0 MG-Infectio [facility] [employer] Work Phone: Complete Blood Count + Differential 2.2 % above high threshold 0.0 - 0.9 MG-Infectio [facility] [employer] Work Phone: Comment on above: Immature Granulocyte Count (IG) includes promyelocytes, myelocytes and metamyelocytes but does not include bands. Percent differential counts (%) should be interpreted in the context of the absolute cell counts (cells/L). Complete Blood Count + Differential 0.0 {/100_WBC} 0.0-0.0 MG-Infectio [facility] [employer] Work Phone: Laboratory - Chemistry and C hemistry - challengeon 12-18-2022 Anion gap [Moles/Vol] 18 mmol/L 10 - 20 MG- Infectio [facility] [employer] Work Phone: Calcium [Mass/Vol] 9.5 mg/dL 8.6 - 10.6 MG-Inf ectio [facility] [employer] Work Phone: Chloride [Moles/Vol] 102 mmol/L 98 - 107 MG-I nfectio [facility] [employer] Work Phone: CO2 [Moles/Vol] 26 mmol/L 21 - 32 MG-Infect io [facility] [employer] Work Phone: Creatinine [Mass/Vol] 1.58 mg/dL above high threshold See Below MG-Infectio [facility] [employer] Work Phone: Comment on above: Reference Range: 0.5 0 - 1.30 Glucose [Mass/Vol] 174 mg/dL above high threshold 74 - 99 [facility] [employer] Work Phone: Potassium [Moles/Vol] 4.8 mmol/L 3.5 - 5.3 MG- Infectio us Disease-[facility] [employer] Work Phone: Sodium [Moles/Vol] 141 mmol/L 136 - 145 MG[facility] [employer] Work Phone: Urea nitrogen [Mass/Vol] 18 mg/dL 6 - 23 [facility] [employer] Work Phone: Laboratory - Coagulationon 0 12-18-2022 INR Coag (PPP) [Relative time] 2.4 {INR} above high threshold 0.9 - 1.1 MG-Infectio us [facility] [employer] Work Phone: PT Coag (PPP) [Time] 28.6 s above high threshold 9.8 - 13.4 MG-Infectio us [facility] [employer] Work Phone: No Panel Informationon 12-18 47 {mL/min/1.73m2} Abnormal >90 MG-Inf ectio [facility] [employer] Work Phone: Comment on above: CALCULATIONS OF REYNALDO MATED GFR ARE PERFORMED USING THE 2020 CKD-EPI STUDY REFIT EQUATION WITHOUT THE RACE VARIABLE FOR THE IDMS-TRACEABLE CREATININE METHODS.https://jasn.asnjournals.org/content///A SN.3116997500 BASIC METABOLIC PANELon 05-0 Anion gap [Moles/Vol] 14 mmol/L Normal 10 - 20 [facility] Comment on above: Performed By: #### B MP ####[address] [address] Calcium [Mass/Vol] 8.9 mg/dL Normal 8.6 - 10.3 [facility] Comment on above: Performed By: #### B MP ####[address] [place] [address] Chloride [Moles/Vol] 102 mmol/L Normal 98 - 107 [facility] Comment on above: Performed By: #### B MP ####[address] [address] Creatinine [Mass/Vol] 1.38 mg/dL High 0.50 - 1.30 [facility] Comment on above: Performed By: #### B MP ####[address] [address] GFR/1.73 sq M.predicted among non-blacks MDRD (S/P/Bld) [Vol rate/Area] 55 mL/min/{1.73_m2} Abnormal >90 [facility] Comment on above: Result Comment: CALC ULATIONS OF ESTIMATED GFR ARE PERFORMED USING THE 2020 CKD-EPI STUDY REFIT EQUATION WITHOUT THE RACE VARIABLE FOR THE IDMS-TRACEABLE CREATININE METHODS.https://jasn.asnjournals.org/content//A SN.3784062215 Performed By: #### B MP ####[address] [address] Glucose [Mass/Vol] 94 mg/dL Normal 74 - 99 [facility] Comment on above: Performed By: #### B MP ####[address] [address] HCO3 (Bld) [Moles/Vol] 26 mmol/L Normal 21 - 32 [facility] Comment on above: Performed By: #### B MP ####[address] [address] Potassium [Moles/Vol] 3.8 mmol/L Normal 3.5 - 5.3 [facility] Comment on above: Performed By: #### B MP ####[address] [address] Sodium [Moles/Vol] 138 mmol/L Normal 136 - 145 [facility] Comment on above: Performed By: #### B MP ####[address] [address] Urea nitrogen [Mass/Vol] 18 mg/dL Normal 6 - 23 [facility] Comment on above: Performed By: #### B MP ####[address] [address] C Reactive Protein, Serumon 12-16-2022 CRP [Mass/Vol] 1.94 mg/dL Abnormal MG-Infecti o us Disease-[facility] [employer] Work Phone: Comment on above: REF VALUE< 1.00 C-REACTIVE PROTEINon 023 C-REACTIVE PROTEIN 1.94 mg/dL Abnormal [facility] Comment on above: Result Comment: REF VALUE< 1.00 Performed By: #### C RP ####[address] [address] CBC AND DIFFERENTIALon 12-16 % AUTOMATED IMMATURE GRAN 2.0 % High 0.0 - 0.9 [facility] Comment on above: Result Comment: Sarah ture Granulocyte Count (IG) includes promyelocytes, myelocytes and metamyelocytes but does not include bands. Percent differential counts (%) should be interpreted in the context of the absolute cell counts (cells/L). Performed By: #### C BCDF ####[address] [address] Basophils (Bld) [#/Vol] 0.05 10*3/uL Normal 0.00 - 0.10 [facility] Comment on above: Performed By: #### C BCDF ####[address] [address] Basophils/100 WBC (Bld) 0.4 % Normal 0.0 - 2.0 [facility] Comment on above: Performed By: #### C BCDF ####[address] [address] Eosinophils (Bld) [#/Vol] 0.14 10*3/uL Normal 0.00 - 0.70 [facility] Comment on above: Performed By: #### C BCDF ####[address] [address] Eosinophils/100 WBC (Bld) 1.1 % Normal 0.0 - 6.0 [facility] Comment on above: Performed By: #### C BCDF ####[address] [address] Erythrocyte distribution width (RBC) [Ratio] 16.2 % High 11.5 - 14.5 [facility] Comment on above: Performed By: #### C BCDF ####[address] [address] Hematocrit (Bld) [Volume fraction] 33.1 % Low 41.0 - 52.0 [facility] Comment on above: Performed By: #### C BCDF ####[address] [address] Hemoglobin (Bld) [Mass/Vol] 10.1 g/dL Low 13.5 - 17.5 [facility] Comment on above: Performed By: #### C BCDF ####[address] [address] Lymphocytes (Bld) [#/Vol] 1.39 10*3/uL Normal 1.20 - 4.80 [facility] Comment on above: Performed By: #### C BCDF ####[address] [address] Lymphocytes/100 WBC (Bld) 11.2 % Normal 13.0 - 44.0 [facility] Comment on above: Performed By: #### C BCDF ####[address] [address] MCHC (RBC) [Mass/Vol] 30.5 g/dL Low 32.0 - 36.0 [facility] Comment on above: Performed By: #### C BCDF ####[address] [address] MCV (RBC) [Entitic vol] 102 fL High 80 - 100 [facility] Comment on above: Performed By: #### C BCDF ####[address] [address] Monocytes (Bld) [#/Vol] 0.80 10*3/uL Normal 0.10 - 1.00 [facility] Comment on above: Performed By: #### C BCDF ####[address] [address] Monocytes/100 WBC (Bld) 6.5 % Normal 2.0 - 10.0 [facility] Comment on above: Performed By: #### C BCDF ####[address] [address] Neutrophils (Bld) [#/Vol] 9.77 10*3/uL High 1.20 - 7.70 [facility] Comment on above: Result Comment: Perc ent differential counts (%) should be interpreted in the context of the absolute cell counts (cells/L). Performed By: #### C BCDF ####[address] [address] Neutrophils/100 WBC (Bld) 78.8 % Normal 40.0 - 80.0 [facility] Comment on above: Performed By: #### C BCDF ####[address] [address] Platelets (Bld) [#/Vol] 403 10*3/uL Normal 150 - 450 [facility] Comment on above: Performed By: #### C BCDF ####[address] [address] RBC 3.26 x10E12/L Low 4.50 - 5.90 [facility] Comment on above: Performed By: #### C BCDF ####[address] [address] WBC (Bld) [#/Vol] 12.4 10*3/uL High 4.4 - 11.3 [facility] Comment on above: Performed By: #### C BCDF ####[address] [address] Complete Blood Count + Diffe rentialon 12-16-2022 Basophils/100 WBC (Bld) 0.4 % 0.0 - 2.0 MG-Infectio us Disease-[facility] [employer] Work Phone: Erythrocyte distribution width (RBC) [Ratio] 16.2 % above high threshold See Below MG-Infectio us Disease-[facility] [employer] Phone: Comment on above: Reference Range: 11. 5 - 14.5 Hematocrit (Bld) [Volume fraction] 33.1 % below low threshold See Below -Infectio us [facility] [employer] Phone: Comment on above: Reference Range: 41. 0 - 52.0 Hemoglobin (Bld) [Mass/Vol] 10.1 g/dL below low threshold See Below -Infectio us [facility] [employer] Phone: [phone] Comment on above: Reference Range: 13. 5 - 17.5 Lymphocytes/100 WBC (Bld) 11.2 % See Below -Infectio us [facility] [employer] Phone: Comment on above: Reference Range: 13. 0 - 44.0 MCHC (RBC) [Mass/Vol] 30.5 g/dL below low threshold See Below -Infectio us [facility] [employer] Phone: [phone] Comment on above: Reference Range: 32. 0 - 36.0 MCV (RBC) [Entitic vol] 102 fL above high threshold 80 - 100 -Infectio us [facility] [employer] Phone: [phone] Monocytes/100 WBC (Bld) 6.5 % 2.0 - 10.0 -Infectio [facility] [employer] Phone: [phone] Neutrophils/100 WBC (Bld) 78.8 % See Below -Infectio us [facility] [employer] Phone: [phone] Comment on above: Reference Range: 40. 0 - 80.0 Platelets (Bld) [#/Vol] 403 10*3/uL 150 - 450 -[facility] [employer] Phone: [phone] RBC (Bld) [#/Vol] 3.26 {x10E12/L} below low threshold See Below -Infectio us [facility] [employer] Phone: Comment on above: Reference Range: 4.5 0 - 5.90 WBC (Bld) [#/Vol] 12.4 10*3/uL above high threshold 4.4 - 11.3 -Infectio [facility] [employer] Phone: Complete Blood Count + Differential 0.05 {x10E9/L} See Below [facility] [employer] Phone: Comment on above: Reference Range: 0.0 0 - 0.10 Complete Blood Count + Differential 0.14 {x10E9/L} See Below -Infectio us [facility] [employer] Phone: Comment on above: Reference Range: 0.0 0 - 0.70 Complete Blood Count + Differential 0.80 {x10E9/L} See Below [facility] [employer] Phone: Comment on above: Reference Range: 0.1 0 - 1.00 Complete Blood Count + Differential 1.39 {x10E9/L} See Below -Infectio [facility] [employer] Phone: Comment on above: Reference Range: 1.2 0 - 4.80 Complete Blood Count + Differential 9.77 {x10E9/L} above high threshold See Below -Infectio [facility] [employer] Phone: Comment on above: Reference Range: 1.2 0 - 7.70 Percent differential counts (%) should be interpreted in the context of the absolute cell counts (cells/L). Complete Blood Count + Differential 1.1 % 0.0 - 6.0 -Infectio [facility] [employer] Phone: Complete Blood Count + Differential 2.0 % above high threshold 0.0 - 0.9 -Infectio [facility] [employer] Phone: Comment on above: Immature Granulocyte Count (IG) includes promyelocytes, myelocytes and metamyelocytes but does not include bands. Percent differential counts (%) should be interpreted in the context of the absolute cell counts (cells/L). Laboratory - Chemistry and C hemistry - challengeon 12-16-2022 Anion gap [Moles/Vol] 14 mmol/L 10 - 20 [facility] [employer] Work Phone: Calcium [Mass/Vol] 8.9 mg/dL 8.6 - 10.3 MG-Inf ectio [facility] [employer] Work Phone: Chloride [Moles/Vol] 102 mmol/L 98 - 107 [facility]I [facility]io [facility] [employer] Work Phone: CO2 [Moles/Vol] 26 mmol/L 21 - 32 [facility] io [facility] [employer] Work Phone: Creatinine [Mass/Vol] 1.38 mg/dL above high threshold See Below [facility] [employer] Work Phone: Comment on above: Reference Range: 0.5 0 - 1.30 Glucose [Mass/Vol] 94 mg/dL 74 - 99 MG[facility]Inf [facility] [employer] Work Phone: Potassium [Moles/Vol] 3.8 mmol/L 3.5 - 5.3 MG- [facility]io [facility] [employer] Work Phone: Sodium [Moles/Vol] 138 mmol/L 136 - 145 MG[facility] [employer] Work Phone: Urea nitrogen [Mass/Vol] 18 mg/dL 6 - 23 [facility] [employer] Work Phone: No Panel Informationon 12-16 55 {mL/min/1.73m2} Abnormal >90 MG[facility]Inf ect[facility] [employer] Work Phone: Comment on above: CALCULATIONS OF REYNALDO MATED GFR ARE PERFORMED USING THE 2020 CKD-EPI STUDY REFIT EQUATION WITHOUT THE RACE VARIABLE FOR THE IDMS-TRACEABLE CREATININE METHODS.https://jasn.asnjournals.org/content/early//A SN.3632038673 Established Visit (Otolaryng ology)on 12-15-2022 Established Visit [...] Therapy P (more content not included)... Normal [place] Height or Weight NOT Doneon 12-15-2022 Adult depression screening assessment No [facility] 4[address] Work Phone: Fall risk assessment a) No falls within the last year [facility] 4100 Work Phone: Tobacco use status CPHS b) No [facility] [address] Work Phone: PT/INRon 12-11-2022 PROTHROMBIN TIME Canceled Normal [facility] Comment on above: Order Comment: TEST PT/INR WAS CANCELLED, 12/11/2022 02:10 Performed By: #### P TINR ####[id number] [id number] PT, INR Canceled Normal [facility] Comment on above: Order Comment: TEST PT/INR WAS CANCELLED, 12/11/2022 02:10 Performed By: #### P TINR ####[id number] [place] [address] Clinical Note - Pharmacy v2o n 12-10-2022 Clinical Note - Pharmacy v2 Normal [facility] GLUCOSE-POCTon 12-10-2022 Glucose [Mass/Vol] 123 mg/dL High 74 - 99 [facility] Comment on above: Performed By: #### G SUSAN ####[id number] [place] [address] Glucose [Mass/Vol] 225 mg/dL High 74 - 99 [facility] Comment on above: Performed By: #### G SUSAN ####[id number] [place] [address] Glucose [Mass/Vol] 170 mg/dL High 74 - 99 [facility] Comment on above: Performed By: #### G SUSAN ####[id number] [place] [address] Laboratory - Chemistry and C hemistry - challengeon 12-10-2022 Glucose [Mass/Vol] 123 mg/dL above high threshold 74 - 99 [facility] Work Phone: Glucose [Mass/Vol] 225 mg/dL above high threshold 74 - 99 [facility] Work Phone: Laboratory - Coagulationon 0 12-10-2022 INR Coag (PPP) [Relative time] 1.1 {INR} 0.9 - 1.1 MG-Otolaryn gology-[facility] 4100 Work Phone: PT Coag (PPP) [Time] 12.9 s 9.8 - 13.4 [facility] 4[facility] Work Phone: Nutrition Therapy-Noteon Nutrition Therapy-Note Normal [facility] PT/INRon 12-10-2022 PT Coag (PPP) [Time] 12.9 s Normal 9.8 - 13.4 [facility] Comment on above: Performed By: #### P TINR ####[id number] [place] [address] PT, INR 1.1 Normal 0.9 - 1.1 [facility] Comment on above: Performed By: #### P TINR ####[id number] [place] [address] CBCon 12-09-2022 Erythrocyte distribution width (RBC) [Ratio] 15.9 % High 11.5 - 14.5 [facility] Comment on above: Performed By: #### C BC ####[id number] [place] [address] Hematocrit (Bld) [Volume fraction] 27.9 % Low 41.0 - 52.0 [facility] Comment on above: Performed By: #### C BC ####[id number] [place] [address] Hemoglobin (Bld) [Mass/Vol] 8.9 g/dL Low 13.5 - 17.5 [facility] Comment on above: Performed By: #### C BC ####[id number] [place] [address] MCHC (RBC) [Mass/Vol] 31.9 g/dL Low 32.0 - 36.0 [facility] Comment on above: Performed By: #### C BC ####[id number] [place] [address] MCV (RBC) [Entitic vol] 100 fL Normal 80 - 100 [facility] Comment on above: Performed By: #### C BC ####[id number] [place] [address] NUCLEATED RBC 0.7 /100 WBC Normal 0.0-0.0 [facility] Comment on above: Performed By: #### C BC ####[id number] [place] [address] Platelets (Bld) [#/Vol] 281 10*3/uL Normal 150 - 450 [facility] Comment on above: Performed By: #### C BC ####[id number] [place] [address] RBC 2.79 x10E12/L Low 4.50 - 5.90 [facility] Comment on above: Performed By: #### C BC ####[id number] [place] [address] WBC (Bld) [#/Vol] 6.9 10*3/uL Normal 4.4 - 11.3 [facility] Comment on above: Performed By: #### C BC ####[id number] [place] [address] Clinical Event Note-ENT Flap Checkon 12-09-2022 Clinical Event Note-ENT Flap Check Normal [facility] Daily Progress Note-ENTon Daily Progress Note-ENT Normal [facility] GLUCOSE-POCTon 12-09-2022 Glucose [Mass/Vol] 151 mg/dL High 74 - 99 [facility] Comment on above: Performed By: #### G SUSAN ####[id number] [place] [address] Glucose [Mass/Vol] 131 mg/dL High 74 - 99 [facility] Comment on above: Performed By: #### G SUSAN ####[id number] [place] [address] Laboratory - Chemistry and C hemistry - challengeon 12-09-2022 Glucose [Mass/Vol] 170 mg/dL above high threshold 74 - 99 MG-Otolaryn gology-[place] [address] Work Phone: Glucose [Mass/Vol] 151 mg/dL above high threshold 74 - 99 MG-Otolaryn gology-[place] [id number] Work Phone: Glucose [Mass/Vol] 131 mg/dL above high threshold 74 - 99 MG-Otolaryn gology-[place] 437730 Work Phone: [phone] Laboratory - Coagulationon 0 12-09-2022 INR Coag (PPP) [Relative time] 1.1 {INR} 0.9 - 1.1 MG-Otolaryn gology-[place] [id number] Work Phone: [phone] PT Coag (PPP) [Time] 13.2 s 9.8 - 13.4 MG-O tolaryn gology-[place] [address] Work Phone: [phone] Laboratory - Hematology and Cell countson 12-09-2022 Erythrocyte distribution width (RBC) [Ratio] 15.9 % above high threshold See Below MG-Otolaryn gology-[facility] 4100 Work Phone: Comment on above: Reference Range: 11. 5 - 14.5 Hematocrit (Bld) [Volume fraction] 27.9 % below low threshold See Below [facility] [place] [facility] centerogyJennifer [place] [address] Work Phone: [phone] Comment on above: Reference Range: 41. 0 - 52.0 Hemoglobin (Bld) [Mass/Vol] 8.9 g/dL below low threshold See Below [facility] medical centerogyJennifer [place] [address] Work Phone: Comment on above: Reference Range: 13. 5 - 17.5 MCHC (RBC) [Mass/Vol] 31.9 g/dL below low threshold See Below [facility] medical centerogyJ[place]ifer [place] [address] Work Phone: Comment on above: Reference Range: 32. 0 - 36.0 MCV (RBC) [Entitic vol] 100 fL 80 - 100 [facility]sdaleyJ[place]ifer [place] [address] Work Phone: [phone] Platelets (Bld) [#/Vol] 281 10*3/uL 150 - 450 [facility]tolaryn [facility] centerogyCH[facility] 410 Work Phone: [phone] RBC (Bld) [#/Vol] 2.79 {x10E12/L} below low threshold See Below [facility]tolaryn [facility] [place]aleyJ[place] [address] Work Phone: Comment on above: Reference Range: 4.5 0 - 5.90 WBC (Bld) [#/Vol] 6.9 10*3/uL 4.4 - 11.3 MGMao larlisbet [facility] sc[place]sdaleyJ[place]ifer [place] [address] Work Phone: MAGNESIUMon 12-09-2022 Magnesium [Mass/Vol] 2.33 mg/dL Normal 1.60 - 2.40 [facility] Comment on above: Performed By: #### M G ####[id number] [place] [address] Magnesium, Serumon Magnesium [Mass/Vol] 2.33 mg/dL See Below MG-O tolaryn [facility] 4100 Work Phone: Comment on above: Reference Range: 1.6 0 - 2.40 No Panel Informationon 12-09 0.7 {/100_WBC} 0.0-0.0 MG-Otolary n [facility] 4100 Work Phone: Order Reconciliationon 12-09 Order Reconciliation Normal [facility] PT/INRon 12-09-2022 PROTHROMBIN TIME Canceled Normal [facility] Comment on above: Order Comment: TEST PT/INR WAS CANCELLED, 12/09/2022 06:37 DUPLICATE ORDER. Performed By: #### P TINR ####[id number] [place] [address] PT, INR Canceled Normal [facility] Comment on above: Order Comment: TEST PT/INR WAS CANCELLED, 12/09/2022 06:37 DUPLICATE ORDER. Performed By: #### P TINR ####[id number] [place] [address] PT Coag (PPP) [Time] 13.2 s Normal 9.8 - 13.4 [facility] Comment on above: Performed By: #### P TINR ####[id number] [place] [address] PT, INR 1.1 Normal 0.9 - 1.1 [facility] Comment on above: Performed By: #### P TINR ####[id number] [place] [address] RENAL FUNCTION PANELon 12-09 Urea nitrogen [Mass/Vol] 24 mg/dL High 6 - [facility] Comment on above: Performed By: #### R ENAL ####[id number] [place] [address] Albumin [Mass/Vol] 3.1 g/dL Low 3.4 - 5.0 [facility] Comment on above: Performed By: #### R ENAL ####[id number] [place] [address] Anion gap [Moles/Vol] 12 mmol/L Normal 10 - 20 [facility] Comment on above: Performed By: #### R ENAL ####[id number] [place] [address] Calcium [Mass/Vol] 8.1 mg/dL Low 8.6 - 10.6 [facility] Comment on above: Performed By: #### R ENAL ####[id number] [place] [address] Chloride [Moles/Vol] 113 mmol/L High 98 - 107 [facility] Comment on above: Performed By: #### R ENAL ####[id number] [place] [address] Creatinine [Mass/Vol] 1.06 mg/dL Normal 0.50 - 1.30 [facility] Comment on above: Performed By: #### R ENAL ####[id number] [place] [address] GFR/1.73 sq M.predicted among non-blacks MDRD (S/P/Bld) [Vol rate/Area] 75 mL/min/{1.73_m2} Normal >90 [facility] Comment on above: Result Comment: CALC ULATIONS OF ESTIMATED GFR ARE PERFORMED USING THE 2020 CKD-EPI STUDY REFIT EQUATION WITHOUT THE RACE VARIABLE FOR THE IDMS-TRACEABLE CREATININE METHODS.https://jasn.asnjournals.org/content/early//A SN.2578505333 Performed By: #### R ENAL ####[id number] [place] [address] Glucose [Mass/Vol] 92 mg/dL Normal 74 - 99 [facility] Comment on above: Performed By: #### R ENAL ####[id number] [place] [address] HCO3 (Bld) [Moles/Vol] 24 mmol/L Normal 21 - 32 [facility] Comment on above: Performed By: #### R ENAL ####[id number] [place] [address] Phosphate [Mass/Vol] 2.6 mg/dL Normal 2.5 - 4.9 [facility] Comment on above: Result Comment: The performance characteristics of phosphorus testing in heparinized plasma have been validated by the individual laboratory site where testing is performed. Testing on heparinized plasma is not approved by the FDA; however, such approval is not necessary. Performed By: #### R ENAL ####[id number] [place] [address] Potassium [Moles/Vol] 4.1 mmol/L Normal 3.5 - 5.3 [facility] Comment on above: Performed By: #### R ENAL ####[id number] [place] [address] Sodium [Moles/Vol] 145 mmol/L Normal 136 - 145 [facility] Comment on above: Performed By: #### R ENAL ####[id number] [place] [address] Renal Function Panelon 12-09 Albumin BCP dye [Mass/Vol] 3.1 g/dL below low threshold 3.4 - 5.0 MG-Otolaryn gology-[facility] 4100 Work Phone: [phone] Anion gap [Moles/Vol] 12 mmol/L 10 - 20 MG- Otolaryn gology-[facility] 4100 Work Phone: Calcium [Mass/Vol] 8.1 mg/dL below low threshold 8.6 - 10.6 MG-Otolaryn gology-[facility] 4100 Work Phone: Chloride [Moles/Vol] 113 mmol/L above high threshold 98 - 107 MG-Otolaryn gology-[facility] 4100 Work Phone: [phone] CO2 [Moles/Vol] 24 mmol/L 21 - 32 MG-Otolar yn gology-[facility] 4100 Work Phone: Creatinine [Mass/Vol] 1.06 mg/dL See Below MG- Margoth [facility] of scottsdalejaneneJennifer Ville [address] Work Phone: Comment on above: Reference Range: 0.5 0 - 1.30 Glucose [Mass/Vol] 92 mg/dL 74 - 99 MG-Maoelizabeth hathaway [facility] of scottsdalejaneneJennifer [place] [address] Work Phone: Phosphate [Mass/Vol] 2.6 mg/dL 2.5 - 4.9 MG-O nataliia [facility] 410 Work Phone: Comment on above: The performance violet acteristics of phosphorus testing in heparinized plasma have been validated by the individual laboratory site where testing is performed. Testing on heparinized plasma is not approved by the FDA; however, such approval is not necessary. Potassium [Moles/Vol] 4.1 mmol/L 3.5 - 5.3 MG- Margoth fernandezJennifer [place] [address] Work Phone: Sodium [Moles/Vol] 145 mmol/L 136 - 145 [facility] mechanicsburglisbet [place] [address] Work Phone: Urea nitrogen [Mass/Vol] 24 mg/dL above high threshold 6 - 23 MGYayashannocklisbet [facility] of scottsdalejaneneJennifer [place] [address] Work Phone: Renal Function Panel 75 {mL/min/1.73m2} >90 MG-Yayaolarlisbet [facility] scottsdalejaneneJennifer [place] [address] Work Phone: Comment on above: CALCULATIONS OF REYNALDO MATED GFR ARE PERFORMED USING THE 2020 CKD-EPI STUDY REFIT EQUATION WITHOUT THE RACE VARIABLE FOR THE IDMS-TRACEABLE CREATININE METHODS.https://jasn.asnjournals.org/content//A SN.6797406043 CBCon 12-08-2022 Erythrocyte distribution width (RBC) [Ratio] 15.4 % High 11.5 - 14.5 [facility] Comment on above: Performed By: #### C BC ####[id number] [place] [address] Hematocrit (Bld) [Volume fraction] 28.2 % Low 41.0 - 52.0 [facility] Comment on above: Performed By: #### C BC ####[id number] [place] [address] Hemoglobin (Bld) [Mass/Vol] 8.7 g/dL Low 13.5 - 17.5 [facility] Comment on above: Performed By: #### C BC ####[id number] [place] [address] MCHC (RBC) [Mass/Vol] 30.9 g/dL Low 32.0 - 36.0 [facility] Comment on above: Performed By: #### C BC ####[id number] [place] [address] MCV (RBC) [Entitic vol] 100 fL Normal 80 - 100 [facility] Comment on above: Performed By: #### C BC ####[id number] [place] [address] NUCLEATED RBC 0.8 /100 WBC Normal 0.0-0.0 [facility] Comment on above: Performed By: #### C BC ####[id number] [place] [address] Platelets (Bld) [#/Vol] 294 10*3/uL Normal 150 - 450 [facility] Comment on above: Performed By: #### C BC ####[id number] [place] [address] RBC 2.83 x10E12/L Low 4.50 - 5.90 [facility] Comment on above: Performed By: #### C BC ####[id number] [place] [address] WBC (Bld) [#/Vol] 6.6 10*3/uL Normal 4.4 - 11.3 [facility] Comment on above: Performed By: #### C BC ####[id number] [place] [address] Clinical Event Note-ENT Flap Checkon 12-08-2022 Clinical Event Note-ENT Flap Check Normal [facility] Clinical Event Note-ENT Flap Check Normal [facility] Daily Progress Note-ENTon Daily Progress Note-ENT Normal [facility] Discharge [id number] Discharge Profile2 Normal [facility] GLUCOSE-POCTon 12-08-2022 Glucose [Mass/Vol] 109 mg/dL High 74 - 99 [facility] Comment on above: Performed By: #### G SUSAN ####[id number] [place] [address] Glucose [Mass/Vol] 166 mg/dL High 74 - 99 [facility] Comment on above: Performed By: #### G SUSAN ####[id number] [place] [address] Glucose [Mass/Vol] 181 mg/dL High 74 - 99 [facility] Comment on above: Performed By: #### G SUSAN ####[id number] [place] [address] Glucose [Mass/Vol] 185 mg/dL High 74 - 99 [facility] Comment on above: Performed By: #### G SUSAN ####[id number] [place] [address] Laboratory - Chemistry and C hemistry - challengeon 12-08-2022 Glucose [Mass/Vol] 109 mg/dL above high threshold 74 - 99 MG-Otolaryn gology-[facility] 4100 Work Phone: Glucose [Mass/Vol] 166 mg/dL above high threshold 74 - 99 MG-Otolaryn gology-[facility] 4100 Work Phone: Glucose [Mass/Vol] 181 mg/dL above high threshold 74 - 99 MG-Otolaryn gology-[facility] 4100 Work Phone: Glucose [Mass/Vol] 185 mg/dL above high threshold 74 - 99 MG-Otolaryn gology-[facility] 4100 Work Phone: [phone] Laboratory - Hematology and Cell countson 12-08-2022 Erythrocyte distribution width (RBC) [Ratio] 15.4 % above high threshold See Below [facility] medical centerogyJennifer [place] [address] Work Phone: [phone] Comment on above: Reference Range: 11. 5 - 14.5 Hematocrit (Bld) [Volume fraction] 28.2 % below low threshold See Below [facility] [place]AND[facility]tolaryn gologyJennifer [place]ille [address] Work Phone: [phone] Comment on above: Reference Range: 41. 0 - 52.0 Hemoglobin (Bld) [Mass/Vol] 8.7 g/dL below low threshold See Below [facility]tol[facility] medical centerogyJ[place]ifer [place] [address] Work Phone: [phone] Comment on above: Reference Range: 13. 5 - 17.5 MCHC (RBC) [Mass/Vol] 30.9 g/dL below low threshold See Below [facility] centerogyJ[place] [address] Work Phone: [phone] Comment on above: Reference Range: 32. 0 - 36.0 MCV (RBC) [Entitic vol] 100 fL 80 - 100 [facility]olaryn [facility] scottsdaleyJennifer [place] [address] Work Phone: [phone] Platelets (Bld) [#/Vol] 294 10*3/uL 150 - 450 [facility]AND[facility]tolaryn [facility] sc[place]sdaleyJennifer [place] [address] Work Phone: [phone] RBC (Bld) [#/Vol] 2.83 {x10E12/L} below low threshold See Below [facility]tolaryn [facility] centerogyJ[place]ifer [place] [address] Work Phone: [phone] Comment on above: Reference Range: 4.5 0 - 5.90 WBC (Bld) [#/Vol] 6.6 10*3/uL 4.4 - 11.3 MG-Mao larlisbet [place] [address] Work Phone: MAGNESIUMon 12-08-2022 Magnesium [Mass/Vol] 2.35 mg/dL Normal 1.60 - 2.40 [facility] Comment on above: Performed By: #### M G ####[id number] [place] [address] Magnesium, Serumon 3 Magnesium [Mass/Vol] 2.35 mg/dL See Below MG-O tolaryn [facility] 4100 Work Phone: Comment on above: Reference Range: 1.6 0 - 2.40 No Panel Informationon 12-08 0.8 {/100_WBC} 0.0-0.0 MG-Otolary n [facility] 4100 Work Phone: RENAL FUNCTION PANELon 12-08 Albumin [Mass/Vol] 3.0 g/dL Low 3.4 - 5.0 [facility] Comment on above: Performed By: #### R ENAL ####[id number] [place] [address] Anion gap [Moles/Vol] 13 mmol/L Normal 10 - 20 [facility] Comment on above: Performed By: #### R ENAL ####[id number] [place] [address] Calcium [Mass/Vol] 8.0 mg/dL Low 8.6 - 10.6 [facility] Comment on above: Performed By: #### R ENAL ####[id number] [place] [address] Chloride [Moles/Vol] 112 mmol/L High 98 - 107 [facility] Comment on above: Performed By: #### R ENAL ####[id number] [place] [address] Creatinine [Mass/Vol] 1.24 mg/dL Normal 0.50 - 1.30 [facility] Comment on above: Performed By: #### R ENAL ####[id number] [place] [address] GFR/1.73 sq M.predicted among non-blacks MDRD (S/P/Bld) [Vol rate/Area] 62 mL/min/{1.73_m2} Normal >90 [facility] Comment on above: Result Comment: CALC ULATIONS OF ESTIMATED GFR ARE PERFORMED USING THE 2020 CKD-EPI STUDY REFIT EQUATION WITHOUT THE RACE VARIABLE FOR THE IDMS-TRACEABLE CREATININE METHODS.https://jasn.asnjournals.org/content//A SN.9279190353 Performed By: #### R ENAL ####[id number] [place] [address] Glucose [Mass/Vol] 181 mg/dL High 74 - 99 [facility] Comment on above: Performed By: #### R ENAL ####[id number] [place] [address] HCO3 (Bld) [Moles/Vol] 24 mmol/L Normal 21 - 32 [facility] Comment on above: Performed By: #### R ENAL ####[id number] [place] [address] Phosphate [Mass/Vol] 2.1 mg/dL Low 2.5 - 4.9 [facility] Comment on above: Result Comment: The performance characteristics of phosphorus testing in heparinized plasma have been validated by the individual laboratory site where testing is performed. Testing on heparinized plasma is not approved by the FDA; however, such approval is not necessary. Performed By: #### R ENAL ####[id number] [place] [address] Potassium [Moles/Vol] 4.1 mmol/L Normal 3.5 - 5.3 [facility] Comment on above: Performed By: #### R ENAL ####[id number] [place] [address] Sodium [Moles/Vol] 145 mmol/L Normal 136 - 145 [facility] Comment on above: Performed By: #### R ENAL ####[id number] [place] [address] Urea nitrogen [Mass/Vol] 26 mg/dL High 6 - 23 [facility] Comment on above: Performed By: #### R ENAL ####[id number] [place] [address] Rehab Note-individual therap yon 12-08-2022 Rehab Note-individual therapy Normal [facility] Renal Function Panelon 12-08 Albumin BCP dye [Mass/Vol] 3.0 g/dL below low threshold 3.4 - 5.0 MG-Otolaryn gology-[facility] 4100 Work Phone: [phone] Anion gap [Moles/Vol] 13 mmol/L 10 - 20 MG- Otolaryn gology-[facility] 4100 Work Phone: [phone] Calcium [Mass/Vol] 8.0 mg/dL below low threshold 8.6 - 10.6 MG-Otolaryn gology-[facility] 4100 Work Phone: [phone] Chloride [Moles/Vol] 112 mmol/L above high threshold 98 - 107 MG-Otolaryn gology-[facility] 4100 Work Phone: [phone] CO2 [Moles/Vol] 24 mmol/L 21 - 32 MG-Otolar yn gology-[facility] 4100 Work Phone: [phone] Creatinine [Mass/Vol] 1.24 mg/dL See Below MG- Otolaryn gology-[facility] 4100 Work Phone: [phone] Comment on above: Reference Range: 0.5 0 - 1.30 Glucose [Mass/Vol] 181 mg/dL above high threshold 74 - 99 MG-Otolaryn gology-[facility] 4100 Work Phone: [phone] Phosphate [Mass/Vol] 2.1 mg/dL below low threshold 2.5 - 4.9 MG-Otolaryn gology-[facility] 4100 Work Phone: [phone] Comment on above: The performance violet acteristics of phosphorus testing in heparinized plasma have been validated by the individual laboratory site where testing is performed. Testing on heparinized plasma is not approved by the FDA; however, such approval is not necessary. Potassium [Moles/Vol] 4.1 mmol/L 3.5 - 5.3 MG- Otolaryn [facility] 4100 Work Phone: Sodium [Moles/Vol] 145 mmol/L 136 - 145 MG-Mao laryn [facility] 4100 Work Phone: Urea nitrogen [Mass/Vol] 26 mg/dL above high threshold 6 - 23 MG[facility]Otolaryn [facility]aley[facility] 4100 Work Phone: Renal Function Panel 62 {mL/min/1.73m2} >90 [facility] 4100 Work Phone: Comment on above: CALCULATIONS OF REYNALDO MATED GFR ARE PERFORMED USING THE 2020 CKD-EPI STUDY REFIT EQUATION WITHOUT THE RACE VARIABLE FOR THE IDMS-TRACEABLE CREATININE METHODS.https://jasn.asnjournals.org/content/early/A SN.7789513376 CBCon 12-07-2022 Erythrocyte distribution width (RBC) [Ratio] 15.5 % High 11.5 - 14.5 [facility] Comment on above: Performed By: #### C BC ####[id number] [place] [address] Hematocrit (Bld) [Volume fraction] 25.6 % Low 41.0 - 52.0 [facility] Comment on above: Performed By: #### C BC ####[id number] [place] [address] Hemoglobin (Bld) [Mass/Vol] 8.2 g/dL Low 13.5 - 17.5 [facility] Comment on above: Performed By: #### C BC ####[id number] [place] [address] MCHC (RBC) [Mass/Vol] 32.0 g/dL Normal 32.0 - 36.0 [facility] Comment on above: Performed By: #### C BC ####[id number] [place] [address] MCV (RBC) [Entitic vol] 100 fL Normal 80 - 100 [facility] Comment on above: Performed By: #### C BC ####[id number] [place] [address] NUCLEATED RBC 0.3 /100 WBC Normal 0.0-0.0 [facility] Comment on above: Performed By: #### C BC ####[id number] [place] [address] Platelets (Bld) [#/Vol] 250 10*3/uL Normal 150 - 450 [facility] Comment on above: Performed By: #### C BC ####[id number] [place] [address] RBC 2.56 x10E12/L Low 4.50 - 5.90 [facility] Comment on above: Performed By: #### C BC ####[id number] [place] [address] WBC (Bld) [#/Vol] 7.1 10*3/uL Normal 4.4 - 11.3 [facility] Comment on above: Performed By: #### C BC ####[id number] Clinical Event Note-ENT Flap Checkon 12-07-2022 Clinical Event Note-ENT Flap Check Normal [facility] Clinical Event Note-ENT Flap Check Normal [facility] Daily Progress Note-ENTon Daily Progress Note-ENT Normal [facility] Daily Progress Note-Perioper ative Medicineon 12-07-2022 Daily Progress Note-Perioperative Medicine Normal [facility] GLUCOSE-POCTon 12-07-2022 Glucose [Mass/Vol] 201 mg/dL High 74 - 99 [facility] Comment on above: Performed By: #### G SUSAN ####[id number] [place] [address] Glucose [Mass/Vol] 243 mg/dL High 74 - 99 [facility] Comment on above: Performed By: #### G SUSAN ####[id number] [place] [address] Glucose [Mass/Vol] 141 mg/dL High 74 - 99 MG-W[place]low laryn gology-[place] [address] Work Phone: Comment on above: Performed By: #### G SUSAN ####[id number] [place] [address] Glucose [Mass/Vol] 139 mg/dL High 74 - 99 [facility] Comment on above: Performed By: #### G SUSAN ####[id number] [place] [address] Laboratory - Chemistry and C hemistry - challengeon 12-07-2022 Glucose [Mass/Vol] 201 mg/dL above high threshold 74 - 99 MG-Otolaryn gology-[place] [address] Work Phone: Glucose [Mass/Vol] 243 mg/dL above high threshold 74 - 99 MG-Otolaryn gology-[place] [address] Work Phone: Glucose [Mass/Vol] 139 mg/dL above high threshold 74 - 99 MG-Otolaryn gology-[place] 437730 Work Phone: Laboratory - Hematology and Cell countson 12-07-2022 Erythrocyte distribution width (RBC) [Ratio] 15.5 % above high threshold See Below MG-Otolaryn gology-[place] [address] Work Phone: Comment on above: Reference Range: 11. 5 - 14.5 Hematocrit (Bld) [Volume fraction] 25.6 % below low threshold See Below MG-Otolaryn gology-[facility] 4100 Work Phone: Comment on above: Reference Range: 41. 0 - 52.0 Hemoglobin (Bld) [Mass/Vol] 8.2 g/dL below low threshold See Below MG-Otolaryn gology-[facility] 410 Work Phone: Comment on above: Reference Range: 13. 5 - 17.5 MCHC (RBC) [Mass/Vol] 32.0 g/dL See Below MG- Otolaryn gology-[facility] 4100 Work Phone: Comment on above: Reference Range: 32. 0 - 36.0 MCV (RBC) [Entitic vol] 100 fL 80 - 100 MG-Otolaryn gology-[facility] 4100 Work Phone: [phone] Platelets (Bld) [#/Vol] 250 10*3/uL 150 - 450 MG-Otolaryn gology-[facility] 4100 Work Phone: [phone] RBC (Bld) [#/Vol] 2.56 {x10E12/L} below low threshold See Below MG-Otolaryn gology-[facility] 4100 Work Phone: Comment on above: Reference Range: 4.5 0 - 5.90 WBC (Bld) [#/Vol] 7.1 10*3/uL 4.4 - 11.3 [facility] 4100 Work Phone: MAGNESIUMon 12-07-2022 Magnesium [Mass/Vol] 2.28 mg/dL Normal 1.60 - 2.40 [facility] Comment on above: Performed By: #### M G ####[id number] [place] [address] Magnesium, Serumon 3 Magnesium [Mass/Vol] 2.28 mg/dL See Below MG-[facility] tolaryn [facility]ology[facility] 4100 Work Phone: [phone] Comment on above: Reference Range: 1.6 0 - 2.40 No Panel Informationon 12-07 0.3 {/100_WBC} 0.0-0.0 [facility]ary n [facility]ologyCH[facility] 4100 Work Phone: RENAL FUNCTION PANELon 12-07 Albumin [Mass/Vol] 3.1 g/dL Low 3.4 - 5.0 [facility] Comment on above: Performed By: #### R ENAL ####[id number] [place] [address] Anion gap [Moles/Vol] 13 mmol/L Normal 10 - 20 [facility] Comment on above: Performed By: #### R ENAL ####[id number] [place] [address] Calcium [Mass/Vol] 8.0 mg/dL Low 8.6 - 10.6 [facility] Comment on above: Performed By: #### R ENAL ####[id number] [place] [address] Chloride [Moles/Vol] 112 mmol/L High 98 - 107 [facility] Comment on above: Performed By: #### R ENAL ####[id number] [place] [address] Creatinine [Mass/Vol] 1.26 mg/dL Normal 0.50 - 1.30 [facility] Comment on above: Performed By: #### R ENAL ####[id number] [place] [address] GFR/1.73 sq M.predicted among non-blacks MDRD (S/P/Bld) [Vol rate/Area] 61 mL/min/{1.73_m2} Normal >90 [facility] Comment on above: Result Comment: CALC ULATIONS OF ESTIMATED GFR ARE PERFORMED USING THE 2020 CKD-EPI STUDY REFIT EQUATION WITHOUT THE RACE VARIABLE FOR THE IDMS-TRACEABLE CREATININE METHODS.https://jasn.asnjournals.org/content/early//A SN.6208458465 Performed By: #### R ENAL ####[id number] [place] [address] Glucose [Mass/Vol] 150 mg/dL High 74 - 99 [facility] Comment on above: Performed By: #### R ENAL ####[id number] [place] [address] HCO3 (Bld) [Moles/Vol] 24 mmol/L Normal 21 - 32 [facility] Comment on above: Performed By: #### R ENAL ####[id number] [place] [address] Phosphate [Mass/Vol] 1.7 mg/dL Low 2.5 - 4.9 [facility] Comment on above: Result Comment: The performance characteristics of phosphorus testing in heparinized plasma have been validated by the individual laboratory site where testing is performed. Testing on heparinized plasma is not approved by the FDA; however, such approval is not necessary. Performed By: #### R ENAL ####[id number] [place] [address] Potassium [Moles/Vol] 3.8 mmol/L Normal 3.5 - 5.3 [facility] Comment on above: Performed By: #### R ENAL ####[id number] [place] [address] Sodium [Moles/Vol] 145 mmol/L Normal 136 - 145 [facility] Comment on above: Performed By: #### R ENAL ####[id number] [place] [address] Urea nitrogen [Mass/Vol] 27 mg/dL High 6 - 23 [facility] Comment on above: Performed By: #### R ENAL ####[id number] [place] [address] Renal Function Panelon 12-07 Albumin BCP dye [Mass/Vol] 3.1 g/dL below low threshold 3.4 - 5.0 MG-Otolaryn gology-[facility] 4100 Work Phone: [phone] Anion gap [Moles/Vol] 13 mmol/L 10 - 20 MG- Otolaryn gology-[facility] 4100 Work Phone: [phone] Calcium [Mass/Vol] 8.0 mg/dL below low threshold 8.6 - 10.6 MG-Otolaryn gology-[facility] 4100 Work Phone: Chloride [Moles/Vol] 112 mmol/L above high threshold 98 - 107 [facility] 4100 Work Phone: [phone] CO2 [Moles/Vol] 24 mmol/L 21 - 32 [facility]olar yn [facility] 4100 Work Phone: [phone] Creatinine [Mass/Vol] 1.26 mg/dL See Below MG- [facility]aryn [facility] 410 Work Phone: [phone] Comment on above: Reference Range: 0.5 0 - 1.30 Glucose [Mass/Vol] 150 mg/dL above high threshold 74 - 99 [place] [address] Work Phone: [phone] Phosphate [Mass/Vol] 1.7 mg/dL below low threshold 2.5 - 4.9 [facility] 410 Work Phone: [phone] Comment on above: The performance violet acteristics of phosphorus testing in heparinized plasma have been validated by the individual laboratory site where testing is performed. Testing on heparinized plasma is not approved by the FDA; however, such approval is not necessary. Potassium [Moles/Vol] 3.8 mmol/L 3.5 - 5.3 [facility]- [facility]aryn niley[facility] 410 Work Phone: [phone] Sodium [Moles/Vol] 145 mmol/L 136 - 145 MG-Winslow larlisbet [facility] 4100 Work Phone: [phone] Urea nitrogen [Mass/Vol] 27 mg/dL above high threshold 6 - 23 [facility]aryn [facility]ogy[facility] 4100 Work Phone: [phone] Renal Function Panel 61 {mL/min/1.73m2} >90 [place] [address] Work Phone: [phone] Comment on above: CALCULATIONS OF REYNALDO MATED GFR ARE PERFORMED USING THE 2020 CKD-EPI STUDY REFIT EQUATION WITHOUT THE RACE VARIABLE FOR THE IDMS-TRACEABLE CREATININE METHODS.https://jasn.asnjournals.org/content/early//A SN.3824438126 CBCon 12-06-2022 Erythrocyte distribution width (RBC) [Ratio] 15.8 % High 11.5 - 14.5 [facility] Comment on above: Performed By: #### C BC ####[id number] [place] [address] Hematocrit (Bld) [Volume fraction] 26.1 % Low 41.0 - 52.0 [facility] Comment on above: Performed By: #### C BC ####[id number] [place] [address] Hemoglobin (Bld) [Mass/Vol] 8.2 g/dL Low 13.5 - 17.5 [facility] Comment on above: Performed By: #### C BC ####[id number] [place] [address] MCHC (RBC) [Mass/Vol] 31.4 g/dL Low 32.0 - 36.0 [facility] Comment on above: Performed By: #### C BC ####[id number] [place] [address] MCV (RBC) [Entitic vol] 102 fL High 80 - 100 [facility] Comment on above: Performed By: #### C BC ####[id number] [place] [address] NUCLEATED RBC 0.0 /100 WBC Normal 0.0-0.0 [facility] Comment on above: Performed By: #### C BC ####[id number] [place] [address] Platelets (Bld) [#/Vol] 238 10*3/uL Normal 150 - 450 [facility] Comment on above: Performed By: #### C BC ####[id number] [place] [address] RBC 2.57 x10E12/L Low 4.50 - 5.90 [facility] Comment on above: Performed By: #### C BC ####[id number] [place] [address] WBC (Bld) [#/Vol] 9.8 10*3/uL Normal 4.4 - 11.3 [facility] Comment on above: Performed By: #### C BC ####[id number] [place] [address] Daily Progress Note-ENTon Daily Progress Note-ENT Normal [facility] Daily Progress Note-Perioper ative Medicineon 12-06-2022 Daily Progress Note-Perioperative Medicine Normal [facility] GLUCOSE-POCTon 12-06-2022 Glucose [Mass/Vol] 153 mg/dL High 74 - 99 [facility] Comment on above: Performed By: #### G SUSAN ####[id number] [place] [address] Glucose [Mass/Vol] 171 mg/dL High 74 - 99 [facility] Comment on above: Performed By: #### G SUSAN ####[id number] [place] [address] Glucose [Mass/Vol] 118 mg/dL High 74 - 99 [facility] Comment on above: Performed By: #### G SUSAN ####[id number] [place] [address] Glucose [Mass/Vol] 129 mg/dL High 74 - 99 [facility] Comment on above: Performed By: #### G SUSAN ####[id number] [place] [address] Laboratory - Chemistry and C hemistry - challengeon 12-06-2022 Glucose [Mass/Vol] 153 mg/dL above high threshold 74 - 99 MG-Otolaryn gology-[facility] 4100 Work Phone: Glucose [Mass/Vol] 171 mg/dL above high threshold 74 - 99 MG-Otolaryn gology-[facility] 4100 Work Phone: Glucose [Mass/Vol] 118 mg/dL above high threshold 74 - 99 MG-Otolaryn gology-[facility] 4100 Work Phone: Glucose [Mass/Vol] 129 mg/dL above high threshold 74 - 99 MG-Otolaryn gology-[place] [address] Work Phone: Laboratory - Hematology and Cell countson 12-06-2022 Erythrocyte distribution width (RBC) [Ratio] 15.8 % above high threshold See Below MG-Otolaryn gology-[place] [address] Work Phone: Comment on above: Reference Range: 11. 5 - 14.5 Hematocrit (Bld) [Volume fraction] 26.1 % below low threshold See Below -Otolaryn gology-[place] [address] Work Phone: Comment on above: Reference Range: 41. 0 - 52.0 Hemoglobin (Bld) [Mass/Vol] 8.2 g/dL below low threshold See Below MG-Otolaryn gology-[place] [address] Work Phone: Comment on above: Reference Range: 13. 5 - 17.5 MCHC (RBC) [Mass/Vol] 31.4 g/dL below low threshold See Below [place] [address] Work Phone: Comment on above: Reference Range: 32. 0 - 36.0 MCV (RBC) [Entitic vol] 102 fL above high threshold 80 - 100 [place] [address] Work Phone: Platelets (Bld) [#/Vol] 238 10*3/uL 150 - 450 [place]tolaryn [place]ologyJac[place] [address] Work Phone: RBC (Bld) [#/Vol] 2.57 {x10E12/L} below low threshold See Below MG-Otolaryn gology-[facility] 410 Work Phone: Comment on above: Reference Range: 4.5 0 - 5.90 WBC (Bld) [#/Vol] 9.8 10*3/uL 4.4 - 11.3 MG-Mao laryn gology-[facility] 4100 Work Phone: MAGNESIUMon 12-06-2022 Magnesium [Mass/Vol] 2.39 mg/dL Normal 1.60 - 2.40 [facility] Comment on above: Performed By: #### M G ####[id number] [place] [address] Magnesium, Serumon 3 Magnesium [Mass/Vol] 2.39 mg/dL See Below MG-O tolaryn [facility] 4100 Work Phone: Comment on above: Reference Range: 1.6 0 - 2.40 No Panel Informationon 12-06 0.0 {/100_WBC} 0.0-0.0 MG-Otolary n [facility] 4100 Work Phone: RENAL FUNCTION PANELon 12-06 Albumin [Mass/Vol] 3.1 g/dL Low 3.4 - 5.0 [facility] Comment on above: Performed By: #### R ENAL ####[id number] [place] [address] Anion gap [Moles/Vol] 15 mmol/L Normal 10 - 20 [facility] Comment on above: Performed By: #### R ENAL ####[id number] [place] [address] Calcium [Mass/Vol] 8.0 mg/dL Low 8.6 - 10.6 [facility] Comment on above: Performed By: #### R ENAL ####[id number] [place] [address] Chloride [Moles/Vol] 112 mmol/L High 98 - 107 [facility] Comment on above: Performed By: #### R ENAL ####[id number] [place] [address] Creatinine [Mass/Vol] 1.59 mg/dL High 0.50 - 1.30 [facility] Comment on above: Performed By: #### R ENAL ####[id number] [place] [address] GFR/1.73 sq M.predicted among non-blacks MDRD (S/P/Bld) [Vol rate/Area] 46 mL/min/{1.73_m2} Abnormal >90 [facility] Comment on above: Result Comment: CALC ULATIONS OF ESTIMATED GFR ARE PERFORMED USING THE 2020 CKD-EPI STUDY REFIT EQUATION WITHOUT THE RACE VARIABLE FOR THE IDMS-TRACEABLE CREATININE METHODS.https://jasn.asnjournals.org/content/early//A SN.5327378116 Performed By: #### R ENAL ####[id number] [place] [address] Glucose [Mass/Vol] 112 mg/dL High 74 - 99 [facility] Comment on above: Performed By: #### R ENAL ####[id number] [place] [address] HCO3 (Bld) [Moles/Vol] 23 mmol/L Normal 21 - 32 [facility] Comment on above: Performed By: #### R ENAL ####[id number] [place] [address] Phosphate [Mass/Vol] 1.7 mg/dL Low 2.5 - 4.9 [facility] Comment on above: Result Comment: The performance characteristics of phosphorus testing in heparinized plasma have been validated by the individual laboratory site where testing is performed. Testing on heparinized plasma is not approved by the FDA; however, such approval is not necessary. Performed By: #### R ENAL ####[id number] [place] [address] Potassium [Moles/Vol] 3.9 mmol/L Normal 3.5 - 5.3 [facility] Comment on above: Performed By: #### R ENAL ####[id number] [place] [address] Sodium [Moles/Vol] 146 mmol/L High 136 - 145 [facility] Comment on above: Performed By: #### R ENAL ####[id number] [place] [address] Urea nitrogen [Mass/Vol] 34 mg/dL High 6 - 23 [facility] Comment on above: Performed By: #### R ENAL ####[id number] [place] [address] Renal Function Panelon 12-06 Albumin BCP dye [Mass/Vol] 3.1 g/dL below low threshold 3.4 - 5.0 MG-Otolaryn gology-[facility] 4100 Work Phone: [phone] Anion gap [Moles/Vol] 15 mmol/L 10 - 20 MG- Otolaryn gology-[facility] 4100 Work Phone: [phone] Calcium [Mass/Vol] 8.0 mg/dL below low threshold 8.6 - 10.6 MG-Otolaryn gology-[facility] 4100 Work Phone: [phone] Chloride [Moles/Vol] 112 mmol/L above high threshold 98 - 107 MG-Otolaryn gology-[facility] 4100 Work Phone: [phone] CO2 [Moles/Vol] 23 mmol/L 21 - 32 MG-Otolar yn gology-[facility] 4100 Work Phone: [phone] Creatinine [Mass/Vol] 1.59 mg/dL above high threshold See Below MG-Otolaryn gology-[facility] 4100 Work Phone: [phone] Comment on above: Reference Range: 0.5 0 - 1.30 Glucose [Mass/Vol] 112 mg/dL above high threshold 74 - 99 MG-Otolaryn gology-[facility] 4100 Work Phone: [phone] Phosphate [Mass/Vol] 1.7 mg/dL below low threshold 2.5 - 4.9 MG-Otolaryn gology-[facility] 4100 Work Phone: [phone] Comment on above: The performance violet acteristics of phosphorus testing in heparinized plasma have been validated by the individual laboratory site where testing is performed. Testing on heparinized plasma is not approved by the FDA; however, such approval is not necessary. Potassium [Moles/Vol] 3.9 mmol/L 3.5 - 5.3 MG- [facility]aryn [facility] 4100 Work Phone: Sodium [Moles/Vol] 146 mmol/L above high threshold 136 - 145 MG-[facility]tolaryn [facility] 4100 Work Phone: Urea nitrogen [Mass/Vol] 34 mg/dL above high threshold 6 - 23 MG-[facility]tolaryn [facility] 4100 Work Phone: Renal Function Panel 46 {mL/min/1.73m2} Abnormal >90 MGOtshannockyn [facility] 4100 Work Phone: Comment on above: CALCULATIONS OF REYNALDO MATED GFR ARE PERFORMED USING THE 2020 CKD-EPI STUDY REFIT EQUATION WITHOUT THE RACE VARIABLE FOR THE IDMS-TRACEABLE CREATININE METHODS.https://jasn.asnjournals.org/content/early//A SN.6694151659 CBCon 12-05-2022 Erythrocyte distribution width (RBC) [Ratio] 15.7 % High 11.5 - 14.5 MG-Otolaryn [facility] 4100 Work Phone: Comment on above: Reference Range: 11. 5 - 14.5 Performed By: #### C BC ####[id number] [place] [address] Hematocrit (Bld) [Volume fraction] 26.9 % Low 41.0 - 52.0 MG-Otolaryn [facility] 4100 Work Phone: Comment on above: Reference Range: 41. 0 - 52.0 Performed By: #### C BC ####[id number] [place] [address] Hemoglobin (Bld) [Mass/Vol] 8.5 g/dL Low 13.5 - 17.5 [facility]aryn [facility]ology[facility] 4100 Work Phone: [phone] Comment on above: Reference Range: 13. 5 - 17.5 Performed By: #### C BC ####[id number] [place] [address] MCHC (RBC) [Mass/Vol] 31.6 g/dL Low 32.0 - 36.0 MG -Otolaryn [facility] 4100 Work Phone: [phone] Comment on above: Reference Range: 32. 0 - 36.0 Performed By: #### C BC ####[id number] [place] [address] MCV (RBC) [Entitic vol] 102 fL High 80 - 100 MG-Otolaryn [facility] 4100 Work Phone: [phone] Comment on above: Performed By: #### C BC ####[id number] [place] [address] NUCLEATED RBC 0.1 /100 WBC Normal 0.0-0.0 [facility] Comment on above: Performed By: #### C BC ####[id number] [place] [address] Platelets (Bld) [#/Vol] 246 10*3/uL Normal 150 - 450 -Otolaryn [facility] 4100 Work Phone: [phone] Comment on above: Performed By: #### C BC ####[id number] [place] [address] RBC 2.65 x10E12/L Low 4.50 - 5.90 [facility] Comment on above: Performed By: #### C BC ####[id number] [place] [address] WBC (Bld) [#/Vol] 16.5 10*3/uL High 4.4 - 11.3 MG-Ot olaryn [facility] 4100 Work Phone: [phone] Comment on above: Performed By: #### C BC ####[id number] [place] [address] Clinical Event Note-ENT Flap Checkon 12-05-2022 Clinical Event Note-ENT Flap Check Normal [facility] Daily Progress Note-ENTon Daily Progress Note-ENT Normal [facility] GLUCOSE-POCTon 12-05-2022 Glucose [Mass/Vol] 169 mg/dL High 74 - 99 [facility] Comment on above: Performed By: #### G SUSAN ####[id number] [place] [address] Glucose [Mass/Vol] 109 mg/dL High 74 - 99 [facility] Comment on above: Performed By: #### G SUSAN ####[id number] [place] [address] Glucose [Mass/Vol] 110 mg/dL High 74 - 99 [facility] Comment on above: Performed By: #### G SUSAN ####[id number] [place] [address] Glucose [Mass/Vol] 152 mg/dL High 74 - 99 [facility] Comment on above: Performed By: #### G SUSAN ####[id number] [place] [address] Glucose [Mass/Vol] 148 mg/dL High 74 - 99 [facility] Comment on above: Performed By: #### G SUSAN ####[id number] [place] [address] Laboratory - Chemistry and C hemistry - challengeon 12-05-2022 Glucose [Mass/Vol] 169 mg/dL above high threshold 74 - 99 MG-Otolaryn gology-[facility] 4100 Work Phone: [phone] Glucose [Mass/Vol] 109 mg/dL above high threshold 74 - 99 MG-Otolaryn gology-[facility] 4100 Work Phone: [phone] Glucose [Mass/Vol] 110 mg/dL above high threshold 74 - 99 MG-Otolaryn gology-[facility] 4100 Work Phone: Glucose [Mass/Vol] 152 mg/dL above high threshold 74 - 99 [facility] 410 Work Phone: Laboratory - Hematology and Cell countson 12-05-2022 RBC (Bld) [#/Vol] 2.65 {x10E12/L} below low threshold See Below MG-Otolaryn [facility] 410 Work Phone: Comment on above: Reference Range: 4.5 0 - 5.90 Magnesium, Serumon 3 Magnesium [Mass/Vol] 2.53 mg/dL High 1.60 - 2.40 MG- [facility]aryn [facility]ology[facility] 410 Work Phone: Comment on above: Reference Range: 1.6 0 - 2.40 Performed By: #### M G ####[id number] [place] [address] No Panel Informationon 12-05 0.1 {/100_WBC} 0.0-0.0 MG-Otolary n [facility]ogy[facility] [address] Work Phone: Nutrition Therapy-Assessment on 12-05-2022 Nutrition Therapy-Assessment Normal [facility] OT Evaluation v2-occupationa l therapyon 12-05-2022 OT Evaluation v2-occupational therapy Normal [facility] PT Evaluation v2-individual therapyon 12-05-2022 PT Evaluation v2-individual therapy Normal [facility] RENAL FUNCTION PANELon 12-05 Albumin [Mass/Vol] 3.3 g/dL Low 3.4 - 5.0 [facility] Comment on above: Performed By: #### R ENAL ####[id number] [place] [address] GFR/1.73 sq M.predicted among non-blacks MDRD (S/P/Bld) [Vol rate/Area] 37 mL/min/{1.73_m2} Abnormal >90 [facility] Comment on above: Result Comment: CALC ULATIONS OF ESTIMATED GFR ARE PERFORMED USING THE 2020 CKD-EPI STUDY REFIT EQUATION WITHOUT THE RACE VARIABLE FOR THE IDMS-TRACEABLE CREATININE METHODS.https://jasn.asnjournals.org/content/early/A SN.0060897800 Performed By: #### R ENAL ####[id number] [place] [address] HCO3 (Bld) [Moles/Vol] 24 mmol/L Normal 21 - 32 [facility] Comment on above: Performed By: #### R ENAL ####[id number] [place] [address] Renal Function Panelon 12-05 Albumin BCP dye [Mass/Vol] 3.3 g/dL below low threshold 3.4 - 5.0 MG-Otolaryn [facility] 4100 Work Phone: Anion gap [Moles/Vol] 14 mmol/L Normal 10 - 20 MG- [facility]aryn [facility]ology[facility] 4100 Work Phone: Comment on above: Performed By: #### R ENAL ####[id number] [place] [address] Calcium [Mass/Vol] 8.3 mg/dL Low 8.6 - 10.6 MG-Winslow laryn [facility] 4100 Work Phone: Comment on above: Performed By: #### R ENAL ####[id number] [place] [address] Chloride [Moles/Vol] 110 mmol/L High 98 - 107 MG-O tolaryn [facility] 4100 Work Phone: Comment on above: Performed By: #### R ENAL ####[id number] [place] [address] CO2 [Moles/Vol] 24 mmol/L 21 - 32 MG-Otolar yn [facility] 4100 Work Phone: Creatinine [Mass/Vol] 1.94 mg/dL High 0.50 - 1.30 MG -Otolaryn [facility] 4100 Work Phone: Comment on above: Reference Range: 0.5 0 - 1.30 Performed By: #### R ENAL ####[id number] [place] [address] Glucose [Mass/Vol] 111 mg/dL High 74 - 99 MG-Mao laryn [facility] 4100 Work Phone: Comment on above: Performed By: #### R ENAL ####[id number] [place] [address] Phosphate [Mass/Vol] 3.2 mg/dL Normal 2.5 - 4.9 MG-O tolaryn [facility] 4100 Work Phone: Comment on [...] not necessary. Performed By: #### R ENAL ####[id number] [place] [address] Potassium [Moles/Vol] 4.1 mmol/L Normal 3.5 - 5.3 MG- Otolaryn [facility] 4100 Work Phone: Comment on above: Performed By: #### R ENAL ####[id number] [place] [address] Sodium [Moles/Vol] 144 mmol/L Normal 136 - 145 MG-Mao [facility] 4100 Work Phone: Comment on above: Performed By: #### R ENAL ####[id number] [place] [address] Urea nitrogen [Mass/Vol] 44 mg/dL High 6 - 23 MG-[facility] 4100 Work Phone: Comment on above: Performed By: #### R ENAL ####[id number] [place] [address] Renal Function Panel 37 {mL/min/1.73m2} Abnormal >90 MG-[facility] 4100 Work Phone: Comment on above: CALCULATIONS OF REYNALDO MATED GFR ARE PERFORMED USING THE 2020 CKD-EPI STUDY REFIT EQUATION WITHOUT THE RACE VARIABLE FOR THE IDMS-TRACEABLE CREATININE METHODS.https://jasn.asnjournals.org/content/early//A SN.6361706139 ARTERIAL FULL PANELon 2022 Anion gap [Moles/Vol] 14 mmol/L Normal 10 - 25 [facility] Comment on above: Order Comment: PH CA LLED TO GRISEL BETH, 12/04/2022 11:06 Performed By: #### A FPA4 ####[id number] [place] [address] BASE EXCESS-BLOOD -3.8 mmol/L Low -2.0 - 3.0 [facility] Comment on above: Order Comment: PH CA LLED TO GRISEL BETH, 12/04/2022 11:06 Performed By: #### A FPA4 ####[id number] [place] [address] BICARB, CALCULATED 24.8 mmol/L Normal 22.0 - 26.0 [facility] Comment on above: Order Comment: PH CA LLED TO GRISEL BETH, 12/04/2022 11:06 Performed By: #### A FPA4 ####[id number] [place] [address] CALCIUM,IONIZED 1.14 mmol/L Normal 1.10 - 1.33 [facility] Comment on above: Order Comment: PH CA LLED TO GRISEL BETH, 12/04/2022 11:06 Performed By: #### A FPA4 ####[id number] [place] [address] Chloride [Moles/Vol] 106 mmol/L Normal 98 - 107 [facility] Comment on above: Order Comment: PH CA LLED TO GRISEL BETH, 12/04/2022 11:06 Performed By: #### A FPA4 ####[id number] [place] [address] Glucose [Mass/Vol] 302 mg/dL High 74 - 99 [facility] Comment on above: Order Comment: PH CA LLED TO GRISEL BETH, 12/04/2022 11:06 Performed By: #### A FPA4 ####[id number] [place] [address] Hematocrit (Bld) [Volume fraction] 33.0 % Low 41.0 - 52.0 [facility] Comment on above: Order Comment: PH CA LLED TO GRISEL BETH, 12/04/2022 11:06 Performed By: #### A FPA4 ####[id number] [place] [address] Hemoglobin (Bld) [Mass/Vol] 11.1 g/dL Low 13.5 - 17.5 [facility] Comment on above: Order Comment: PH CA LLED TO GRISEL BETH, 12/04/2022 11:06 Performed By: #### A FPA4 ####[id number] [place] [address] Lactate [Moles/Vol] 1.7 mmol/L Normal 0.4 - 2.0 [facility] Comment on above: Order Comment: PH CA LLED TO GRISEL BETH, 12/04/2022 11:06 Performed By: #### A FPA4 ####[id number] [place] [address] OXY HGB 93.9 % Low 94.0 - 98.0 [facility] Comment on above: Order Comment: PH CA LLED TO GRISEL BETH, 12/04/2022 11:06 Performed By: #### A FPA4 ####[id number] [place] [address] Oxygen (Bld) [Partial pressure] 85 mm[Hg] Normal 85 - 95 [facility] Comment on above: Order Comment: PH CA LLED TO GRISEL PASTOROX, 12/04/2022 11:06 Performed By: #### A FPA4 ####[id number] [place] [address] PATIENT TEMPERATURE 37.0 degrees C Normal U [facility] Comment on above: Order Comment: PH CA LLED TO GRISEL BETH, 12/04/2022 11:06 Result Comment: NOTE : PATIENT RESULTS ARE NOT CORRECTED FOR TEMPERATURE. Performed By: #### A FPA4 ####[id number] [place] [address] PCO2 62 mmHg High 38 - 42 [facility] Comment on above: Order Comment: PH CA LLED TO GRISEL BETH, 12/04/2022 11:06 Performed By: #### A FPA4 ####[id number] [place] [address] pH (Bld) 7.21 [pH] Critically low 7.38 - 7.42 [facility] Comment on above: Order Comment: PH CA LLED TO GRISEL PASTOROX, 12/04/2022 11:06 Result Comment: PH C ALLED TO GRISEL BETH, 12/04/2022 11:06 Performed By: #### A FPA4 ####[id number] [place] [address] Potassium [Moles/Vol] 5.5 mmol/L High 3.5 - 5.3 [facility] Comment on above: Order Comment: PH CA LLED TO GRISEL BETH, 12/04/2022 11:06 Performed By: #### A FPA4 ####[id number] [place] [address] SO2 97 % Normal 94 - 100 [facility] Comment on above: Order Comment: PH CA LLED TO GRISEL BETH, 12/04/2022 11:06 Performed By: #### A FPA4 ####[id number] [place] [address] Sodium [Moles/Vol] 139 mmol/L Normal 136 - 145 [facility] Comment on above: Order Comment: PH CA LLED TO GRISEL BETH, 12/04/2022 11:06 Performed By: #### A FPA4 ####[id number] [place] [address] Admission Risk Screen - Adul ton 12-04-2022 Admission Risk Screen - Adult Normal [facility] BASIC METABOLIC PANELon 11-16 Anion gap [Moles/Vol] 17 mmol/L Normal 10 - 20 [facility] Comment on above: Performed By: #### B MP ####[id number] [place] [address] Calcium [Mass/Vol] 8.5 mg/dL Low 8.6 - 10.6 [facility] Comment on above: Performed By: #### B MP ####[id number] [place] [address] Chloride [Moles/Vol] 106 mmol/L Normal 98 - 107 [facility] Comment on above: Performed By: #### B MP ####[id number] [place] [address] Creatinine [Mass/Vol] 2.25 mg/dL High 0.50 - 1.30 [facility] Comment on above: Performed By: #### B MP ####[id number] [place] [address] GFR/1.73 sq M.predicted among non-blacks MDRD (S/P/Bld) [Vol rate/Area] 31 mL/min/{1.73_m2} Abnormal >90 [facility] Comment on above: Result Comment: CALC ULATIONS OF ESTIMATED GFR ARE PERFORMED USING THE 2020 CKD-EPI STUDY REFIT EQUATION WITHOUT THE RACE VARIABLE FOR THE IDMS-TRACEABLE CREATININE METHODS.https://jasn.asnjournals.org/content//A SN.[id number] Performed By: #### B MP ####[id number] [place] [address] Glucose [Mass/Vol] 238 mg/dL High 74 - 99 [facility] Comment on above: Performed By: #### B MP ####[id number] [place] [address] HCO3 (Bld) [Moles/Vol] 25 mmol/L Normal 21 - 32 [facility] Comment on above: Performed By: #### B MP ####[id number] [place] [address] Potassium [Moles/Vol] 4.9 mmol/L Normal 3.5 - 5.3 [facility] Comment on above: Performed By: #### B MP ####[id number] [place] [address] Sodium [Moles/Vol] 143 mmol/L Normal 136 - 145 [facility] Comment on above: Performed By: #### B MP ####[id number] [place] [address] Urea nitrogen [Mass/Vol] 46 mg/dL High 6 - 23 [facility] Comment on above: Performed By: #### B MP ####[id number] [place] [address] CBCon 12-04-2022 HCT Canceled Normal [facility] Comment on above: Order Comment: TEST CBC WAS CANCELLED, 12/04/2022 21:07 not collected. Performed By: #### C BC ####[id number] [place] [address] HGB Canceled Normal [facility] Comment on above: Order Comment: TEST CBC WAS CANCELLED, 12/04/2022 21:07 not collected. Performed By: #### C BC ####[id number] [place] [address] MCHC Canceled Normal [facility] Comment on above: Order Comment: TEST CBC WAS CANCELLED, 12/04/2022 21:07 not collected. Performed By: #### C BC ####[id number] [place] [address] MCV Canceled Normal [facility] Comment on above: Order Comment: TEST CBC WAS CANCELLED, 12/04/2022 21:07 not collected. Performed By: #### C BC ####[id number] [place] [address] NUCLEATED RBC Canceled Normal [facility] Comment on above: Order Comment: TEST CBC WAS CANCELLED, 12/04/2022 21:07 not collected. Performed By: #### C BC ####[id number] [place] [address] PLT Canceled Normal [facility] Comment on above: Order Comment: TEST CBC WAS CANCELLED, 12/04/2022 21:07 not collected. Performed By: #### C BC ####[id number] [place] [address] RBC Canceled Normal [facility] Comment on above: Order Comment: TEST CBC WAS CANCELLED, 12/04/2022 21:07 not collected. Performed By: #### C BC ####[id number] [place] [address] RDW-CV Canceled Normal [facility] Comment on above: Order Comment: TEST CBC WAS CANCELLED, 12/04/2022 21:07 not collected. Performed By: #### C BC ####[id number] [place] [address] WBC Canceled Normal [facility] Comment on above: Order Comment: TEST CBC WAS CANCELLED, 12/04/2022 21:07 not collected. Performed By: #### C BC ####[id number] [place] [address] Erythrocyte distribution width (RBC) [Ratio] 15.4 % High 11.5 - 14.5 [facility] Comment on above: Performed By: #### C BC ####[id number] [place] [address] Hematocrit (Bld) [Volume fraction] 33.2 % Low 41.0 - 52.0 [facility] Comment on above: Performed By: #### C BC ####[id number] [place] [address] Hemoglobin (Bld) [Mass/Vol] 10.6 g/dL Low 13.5 - 17.5 [facility] Comment on above: Performed By: #### C BC ####[id number] [place] [address] MCHC (RBC) [Mass/Vol] 31.9 g/dL Low 32.0 - 36.0 [facility] Comment on above: Performed By: #### C BC ####[id number] [place] [address] MCV (RBC) [Entitic vol] 100 fL Normal 80 - 100 [facility] Comment on above: Performed By: #### C BC ####[id number] [place] [address] NUCLEATED RBC 0.0 /100 WBC Normal 0.0-0.0 [facility] Comment on above: Performed By: #### C BC ####[id number] [place] [address] Platelets (Bld) [#/Vol] 349 10*3/uL Normal 150 - 450 [facility] Comment on above: Performed By: #### C BC ####[id number] [place] [address] RBC 3.32 x10E12/L Low 4.50 - 5.90 [facility] Comment on above: Performed By: #### C BC ####[id number] [place] [address] WBC (Bld) [#/Vol] 20.1 10*3/uL High 4.4 - 11.3 [facility] Comment on above: Performed By: #### C BC ####[id number] [place] [address] Clinical Event Note-ENT Flap Checkon 12-04-2022 Clinical Event Note-ENT Flap Check Normal [facility] Clinical Event Note-ENT Flap Check Normal [facility] Clinical Event Note-ENT Flap Check Normal [facility] Clinical Event Note-ENT Flap Check Normal [facility] Clinical Event Note-ENT Flap Check Normal [facility] Consult-Perioperative Medici neon 12-04-2022 Consult-Perioperative Medicine Normal [facility] Daily Progress Note-ENTon Daily Progress Note-ENT Normal [facility] Discharge Planning Inaz8vd 0 12-04-2022 Discharge Planning Note2 Normal [facility] ELECTROLYTE, URINE SPOTon OSMOLALITY,URINE SPOT 567 mOsm/kg Normal 200 - 1200 [facility] Comment on above: Performed By: #### E LCS2 ####[id number] [place] [address] CHLORIDE,URINE SPOT 16 mmol/L Normal Not Established [facility] Comment on above: Performed By: #### E LCS2 ####[id number] [place] [address] CHLORIDE/CREAT RATIO 13 mmol/g Creat Low 23 - 275 [facility] Comment on above: Performed By: #### E LCS2 ####[id number] [place] [address] CREATININE,URINE 119.0 mg/dL Normal 20.0 - 370.0 [facility] Comment on above: Performed By: #### E LCS2 ####[id number] [place] [address] POT/CREAT RATIO 66 mmol/g Creat Normal Not Established [facility] Comment on above: Performed By: #### E LCS2 ####[id number] [place] [address] POTASSIUM,URINE SPOT 79 mmol/L Normal Not Established [facility] Comment on above: Performed By: #### E LCS2 ####[id number] [place] [address] Sodium (U) [Moles/Vol] 16 mmol/L Normal Not Established [facility] Comment on above: Performed By: #### E LCS2 ####[id number] [place] [address] SODIUM/CREAT RATIO 13 mmol/g Creat Normal Not Established [facility] Comment on above: Performed By: #### E LCS2 ####[id number] [place] [address] UREA NITROGEN,URINE 383 mg/dL Normal Not Established [facility] Comment on above: Performed By: #### E LCS2 ####[id number] [place] [address] UREA NITROGEN/CREAT RATIO 3.2 g/g Creat Normal Not Established [facility] Comment on above: Performed By: #### E LCS2 ####[id number] [place] [address] GLUCOSE-POCTon 12-04-2022 Glucose [Mass/Vol] 228 mg/dL High 74 - 99 [facility] Comment on above: Performed By: #### G SUSAN ####[id number] [place] [address] Glucose [Mass/Vol] 261 mg/dL High 74 - 99 [facility] Comment on above: Performed By: #### G SUSAN ####[id number] [place] [address] Glucose [Mass/Vol] 256 mg/dL High 74 - 99 [facility] Comment on above: Performed By: #### G SUSAN ####[id number] [place] [address] Glucose [Mass/Vol] 232 mg/dL High 74 - 99 [facility] Comment on above: Performed By: #### G SUSAN ####[id number] [place] [address] Glucose [Mass/Vol] 194 mg/dL High 74 - 99 [facility] Comment on above: Performed By: #### G SUSAN ####[id number] [place] [address] Laboratory - Chemistry and C hemistry - challengeon 12-04-2022 Glucose [Mass/Vol] 148 mg/dL above high threshold 74 - 99 [facility] 4100 Work Phone: [phone] Glucose [Mass/Vol] 228 mg/dL above high threshold 74 - 99 [facility] 4100 Work Phone: Base excess Calc (BldV) [Moles/Vol] -3.1000 mmol/L below low threshold -2.0 - 3.0 [facility]aryn gology-[place] [id number] Work Phone: [phone] CO2 (BldV) [Partial pressure] 50 mm[Hg] 41 - 51 [facility]ology-[place] [address] Work Phone: [phone] HCO3 (Bld) [Moles/Vol] 24.0 mmol/L See Below M G-[facility]ology-[place] [address] Work Phone: [phone] Comment on above: Reference Range: 22. 0 - 26.0 Oxygen (BldV) [Partial pressure] 42 mm[Hg] 35 - 45 [facility]-[place] [address] Work Phone: [phone] Oxyhemoglobin (BldV) [Mass fraction] 65.8 % See Below [facility]-[place] [address] Work Phone: [phone] Comment on above: Reference Range: 45. 0 - 75.0 pH (BldV) 7.29 [pH] below low threshold See Below [facility]-[place] [address] Work Phone: [phone] Comment on above: Reference Range: 7.3 3 - 7.43 Glucose [Mass/Vol] 261 mg/dL above high threshold 74 - 99 [facility]-[place] [address] Work Phone: [phone] Anion gap [Moles/Vol] 17 mmol/L 10 - 20 [facility]- Otolaryn gology-[place] [address] Work Phone: Calcium [Mass/Vol] 8.5 mg/dL below low threshold 8.6 - 10.6 [facility]-[place] [address] Work Phone: Chloride [Moles/Vol] 106 mmol/L 98 - 107 [facility] [address] Work Phone: [phone] CO2 [Moles/Vol] 25 mmol/L 21 - 32 [facility]ma [place] [address] Work Phone: [phone] Creatinine (U) [Mass/Vol] 119.0 mg/dL See Below [facility]-[place] [address] Work Phone: [phone] Comment on above: Reference Range: 20. 0 - 370.0 Creatinine [Mass/Vol] 2.25 mg/dL above high threshold See Below -[place] [address] Work Phone: [phone] Comment on above: Reference Range: 0.5 0 - 1.30 Glucose [Mass/Vol] 238 mg/dL above high threshold 74 - 99 [facility] [address] Work Phone: [phone] Osmolality (U) [Osmolality] 567 mosm/kg 200 - 1200 [facility] [address] Work Phone: [phone] Potassium (U) [Moles/Vol] 79 mmol/L See Below -[place] [address] Work Phone: [phone] Comment on above: Reference Range: Not Established Potassium [Moles/Vol] 4.9 mmol/L 3.5 - 5.3 MG- [place] [address] Work Phone: [phone] Potassium/Creatinine (U) [Molar ratio] 66 {mmol/g_Creat} See Below [facility] [place] [place] [address] Work Phone: [phone] Comment on above: Reference Range: Not Established Sodium (U) [Moles/Vol] 16 mmol/L See Below -[place] [address] Work Phone: [phone] Comment on above: Reference Range: Not Established Sodium [Moles/Vol] 143 mmol/L 136 - 145 MG-Winslow mag [place] [address] Work Phone: Sodium/Creatinine (U) [Ratio] 13 {mmol/g_Creat} See Below -[facility] [address] Work Phone: [phone] Comment on above: Reference Range: Not Established Urea nitrogen (U) [Mass/Vol] 383 mg/dL See Below -[facility]aryn [facility] [address] Work Phone: [phone] Comment on above: Reference Range: Not Established Urea nitrogen [Mass/Vol] 46 mg/dL above high threshold 6 - 23 [facility]-[place]aryn mad[place] [address] Work Phone: [phone] Urea/Creatinine (U) [Molar ratio] 3.2 {g/g_Creat} See Below -[facility]tolaryn [facility] [place] [address] Work Phone: [phone] Comment on above: Reference Range: Not Established Anion gap 4 (BldA) [Moles/Vol] 14 mmol/L 10 - 25 MG-Otolarlisbet [facility] [place] [address] Work Phone: [phone] Base excess Calc (Bld) [Moles/Vol] -3.8000 mmol/L below low threshold -2.0 - 3.0 MG[facility]tolaryn [facility] [place] [address] Work Phone: [phone] Calcium.ionized (BldA) [Moles/Vol] 1.14 mmol/L See Below [facility] [place] [address] Work Phone: Comment on above: Reference Range: 1.1 0 - 1.33 Chloride (BldA) [Moles/Vol] 106 mmol/L 98 - 107 [facility]tolaryn [facility] [place] [address] Work Phone: [phone] CO2 (Bld) [Partial pressure] 62 mm[Hg] above high threshold 38 - 42 [facility]-Otolaryn gology-[place] [address] Work Phone: [phone] Glucose [Mass/Vol] 302 mg/dL above high threshold 74 - 99 [facility]-Otolaryn gology-[place] [address] Work Phone: [phone] HCO3 (Bld) [Moles/Vol] 24.8 mmol/L See Below M G-Otolaryn gology-[place] [address] Work Phone: [phone] Comment on above: Reference Range: 22. 0 - 26.0 Lactate (BldA) [Moles/Vol] 1.7 mmol/L 0.4 - 2.0 MG-Otolaryn gology-[place] [address] Work Phone: [phone] Oxygen (Bld) [Partial pressure] 85 mm[Hg] 85 - 95 [facility]aryn [facility]ology-[place] [address] Work Phone: [phone] Oxyhemoglobin (BldA) [Mass fraction] 93.9 % below low threshold See Below [facility]-Otolaryn gology-[place] [address] Work Phone: [phone] Comment on above: Reference Range: 94. 0 - 98.0 pH (Bld) 7.21 [pH] Critically low See Below MG-Otolary n gology-[place] [address] Work Phone: [phone] Comment on above: Reference Range: 7.3 8 - 7.42PH CALLED TO GRISEL BETH, 12/04/2022 11:06 Potassium (BldA) [Moles/Vol] 5.5 mmol/L above high threshold 3.5 - 5.3 [facility]tolaryn gology-[place] [address] Work Phone: [phone] Sodium (BldA) [Moles/Vol] 139 mmol/L 136 - 145 [facility]tolaryn [facility]ology-[place] [address] Work Phone: [phone] Glucose [Mass/Vol] 256 mg/dL above high threshold 74 - 99 [facility]aryn [facility]ology-[place] [address] Work Phone: Glucose [Mass/Vol] 232 mg/dL above high threshold 74 - 99 [facility]tolaryn gology-[place] [address] Work Phone: Glucose [Mass/Vol] 194 mg/dL above high threshold 74 - 99 [facility]aryn [facility]-[place] [address] Work Phone: Laboratory - Hematology and Cell countson 12-04-2022 Hematocrit Est (Bld) [Volume fraction] 33.0 % below low threshold See Below [facility]-Otolaryn gology-[place] [address] Work Phone: Comment on above: Reference Range: 41. 0 - 52.0 Hemoglobin (Bld) [Mass/Vol] 11.1 g/dL below low threshold See Below MG-Otolaryn gology-[place] [address] Work Phone: [phone] Comment on above: Reference Range: 13. 5 - 17.5 Erythrocyte distribution width (RBC) [Ratio] 15.4 % above high threshold See Below MG-Otolaryn gology-[place] [address] Work Phone: Comment on above: Reference Range: 11. 5 - 14.5 Hematocrit (Bld) [Volume fraction] 33.2 % below low threshold See Below MG-Otolaryn gology-[place] [address] Work Phone: Comment on above: Reference Range: 41. 0 - 52.0 Hemoglobin (Bld) [Mass/Vol] 10.6 g/dL below low threshold See Below MG-Otolaryn gology-[place] [address] Work Phone: Comment on above: Reference Range: 13. 5 - 17.5 MCHC (RBC) [Mass/Vol] 31.9 g/dL below low threshold See Below MG-Otolaryn gology-[place] [address] Work Phone: Comment on above: Reference Range: 32. 0 - 36.0 MCV (RBC) [Entitic vol] 100 fL 80 - 100 [facility] Work Phone: Platelets (Bld) [#/Vol] 349 10*3/uL 150 - 450 [facility]-Otolaryn [facility]ology-[facility] 4100 Work Phone: [phone] RBC (Bld) [#/Vol] 3.32 {x10E12/L} below low threshold See Below MG-Otolaryn gology-[facility] 4100 Work Phone: Comment on above: Reference Range: 4.5 0 - 5.90 WBC (Bld) [#/Vol] 20.1 10*3/uL above high threshold 4.4 - 11.3 [facility] 4100 Work Phone: MAGNESIUMon 12-04-2022 Magnesium [Mass/Vol] 2.47 mg/dL High 1.60 - 2.40 [facility] Comment on above: Performed By: #### M G ####[id number] [place] [address] Magnesium, Serumon 3 Magnesium [Mass/Vol] 2.47 mg/dL above high threshold See Below [facility] 4100 Work Phone: Comment on above: Reference Range: 1.6 0 - 2.40 No Panel Informationon 12-04 31 {mL/min/1.73m2} Abnormal >90 [facility] 4100 Work Phone: Comment on above: CALCULATIONS OF REYNALDO MATED GFR ARE PERFORMED USING THE 2020 CKD-EPI STUDY REFIT EQUATION WITHOUT THE RACE VARIABLE FOR THE IDMS-TRACEABLE CREATININE METHODS.https://jasn.asnjournals.org/content//A SN.5959275898 13 {mmol/g_Creat} below low threshold 23 - 275 [facility]aryn [facility]ology-[facility] 4100 Work Phone: 16 mmol/L See Below MG-Otolaryn madiogy-[facility] 4100 Work Phone: Comment on above: Reference Range: Not Established 0.0 {/100_WBC} 0.0-0.0 MG-Otolary n gology-[facility] 4100 Work Phone: OT Evaluation v2-occupationa l therapy - Upon arrival in roomon 12-04-2022 OT Evaluation v2-occupational therapy - Upon arrival in room Normal [facility] Patient Profile - Adult v2on 12-04-2022 Patient Profile - Adult v2 Normal [facility] RENAL FUNCTION PANELon 12-04 Albumin [Mass/Vol] 4.1 g/dL Normal 3.4 - 5.0 [facility] Comment on above: Performed By: #### R ENAL ####[id number] [place] [address] Anion gap [Moles/Vol] 17 mmol/L Normal 10 - 20 [facility] Comment on above: Performed By: #### R ENAL ####[id number] [place] [address] Calcium [Mass/Vol] 8.9 mg/dL Normal 8.6 - 10.6 [facility] Comment on above: Performed By: #### R ENAL ####[id number] [place] [address] Chloride [Moles/Vol] 107 mmol/L Normal 98 - 107 [facility] Comment on above: Performed By: #### R ENAL ####[id number] [place] [address] Creatinine [Mass/Vol] 2.01 mg/dL High 0.50 - 1.30 [facility] Comment on above: Performed By: #### R ENAL ####[id number] [place] [address] GFR/1.73 sq M.predicted among non-blacks MDRD (S/P/Bld) [Vol rate/Area] 35 mL/min/{1.73_m2} Abnormal >90 [facility] Comment on above: Result Comment: CALC ULATIONS OF ESTIMATED GFR ARE PERFORMED USING THE 2020 CKD-EPI STUDY REFIT EQUATION WITHOUT THE RACE VARIABLE FOR THE IDMS-TRACEABLE CREATININE METHODS.https://jasn.asnjournals.org/content//A SN.5646913904 Performed By: #### R ENAL ####[id number] [place] [address] Glucose [Mass/Vol] 227 mg/dL High 74 - 99 [facility] Comment on above: Performed By: #### R ENAL ####[id number] [place] [address] HCO3 (Bld) [Moles/Vol] 24 mmol/L Normal 21 - 32 [facility] Comment on above: Performed By: #### R ENAL ####[id number] [place] [address] Phosphate [Mass/Vol] 6.1 mg/dL High 2.5 - 4.9 [facility] Comment on above: Result Comment: The performance characteristics of phosphorus testing in heparinized plasma have been validated by the individual laboratory site where testing is performed. Testing on heparinized plasma is not approved by the FDA; however, such approval is not necessary. Performed By: #### R ENAL ####[id number] [place] [address] Potassium [Moles/Vol] 5.0 mmol/L Normal 3.5 - 5.3 [facility] Comment on above: Performed By: #### R ENAL ####[id number] [place] [address] Sodium [Moles/Vol] 143 mmol/L Normal 136 - 145 [facility] Comment on above: Performed By: #### R ENAL ####[id number] [place] [address] Urea nitrogen [Mass/Vol] 36 mg/dL High 6 - 23 [facility] Comment on above: Performed By: #### R ENAL ####[id number] [place] [address] Radiologyon 12-04-2022 XR Chest Single view Normal MG-O tolaryn gology-[facility] 4100 Work Phone: [phone] Rapid Response Nurse Noteon 12-04-2022 Rapid Response Nurse Note Normal [facility] Renal Function Panelon 12-04 Albumin BCP dye [Mass/Vol] 4.1 g/dL 3.4 - 5.0 [facility] [facility] Work Phone: [phone] Anion gap [Moles/Vol] 17 mmol/L 10 - 20 MG- Otolaryn gology-[place] [id number] Work Phone: [phone] Calcium [Mass/Vol] 8.9 mg/dL 8.6 - 10.6 MG-Mao laryn gology-[facility] 4100 Work Phone: [phone] Chloride [Moles/Vol] 107 mmol/L 98 - 107 MG-O tolaryn gology-[facility] 4100 Work Phone: [phone] CO2 [Moles/Vol] 24 mmol/L 21 - 32 MG-Otolar yn gology-[facility] 4100 Work Phone: [phone] Creatinine [Mass/Vol] 2.01 mg/dL above high threshold See Below MG-Otolaryn gology-[place] 437730 Work Phone: [phone] Comment on above: Reference Range: 0.5 0 - 1.30 Glucose [Mass/Vol] 227 mg/dL above high threshold 74 - 99 MG-Otolaryn gology-[facility] 4100 Work Phone: [phone] Phosphate [Mass/Vol] 6.1 mg/dL above high threshold 2.5 - 4.9 MG-Otolaryn gology-[place] [address] Work Phone: [phone] Comment on above: The performance violet acteristics of phosphorus testing in heparinized plasma have been validated by the individual laboratory site where testing is performed. Testing on heparinized plasma is not approved by the FDA; however, such approval is not necessary. Potassium [Moles/Vol] 5.0 mmol/L 3.5 - 5.3 MG- Otolaryn gology-[facility] 4100 Work Phone: Sodium [Moles/Vol] 143 mmol/L 136 - 145 MG-Winslow laryn [facility] 4100 Work Phone: Urea nitrogen [Mass/Vol] 36 mg/dL above high threshold 6 - 23 MG-Otolaryn [facility] 4100 Work Phone: Renal Function Panel 35 {mL/min/1.73m2} Abnormal >90 [facility] Work Phone: Comment on above: CALCULATIONS OF REYNALDO MATED GFR ARE PERFORMED USING THE 2020 CKD-EPI STUDY REFIT EQUATION WITHOUT THE RACE VARIABLE FOR THE IDMS-TRACEABLE CREATININE METHODS.https://jasn.asnjournals.org/content///A SN.5637309076 TH CHEST 1 VIEWon 12-04-2022 CHEST 1 VIEW Normal [facility] VENOUS BLOOD GASon 3 BASE EXCESS-BLOOD -3.1 mmol/L Low -2.0 - 3.0 [facility] Comment on above: Performed By: #### B LGV2 ####[id number] [place] [address] BICARB, CALCULATED 24.0 mmol/L Normal 22.0 - 26.0 [facility] Comment on above: Performed By: #### B LGV2 ####[id number] [place] [address] OXY HGB 65.8 % Normal 45.0 - 75.0 [facility] Comment on above: Performed By: #### B LGV2 ####[id number] [place] [address] Oxygen (Bld) [Partial pressure] 42 mm[Hg] Normal 35 - 45 [facility] Comment on above: Performed By: #### B LGV2 ####[id number] [place] [address] PATIENT TEMPERATURE 37.0 degrees C Normal [facility] Comment on above: Result Comment: NOTE : PATIENT RESULTS ARE NOT CORRECTED FOR TEMPERATURE. Performed By: #### B LGV2 ####[id number] [place] [address] PCO2 50 mmHg Normal 41 - 51 [facility] Comment on above: Performed By: #### B LGV2 ####[id number] [place] [address] pH (Bld) 7.29 [pH] Low 7.33 - 7.43 [facility] Comment on above: Performed By: #### B LGV2 ####[id number] [place] [address] SO2 67 % Normal 45 - 75 [facility] Comment on above: Performed By: #### B LGV2 ####[id number] [place] [address] Vital signson 12-04-2022 Oxygen saturation in Venous blood 67 % 45 - 75 [facility]ANDOtolaruniversity hospitals beachwood medical centerogyCH[facility] 4100 Work Phone: ARTERIAL FULL PANELon 2022 Anion gap [Moles/Vol] 11 mmol/L Normal 10 - 25 [facility] Comment on above: Performed By: #### A FPA4 ####[id number] [place] [address] BASE EXCESS-BLOOD -2.5 mmol/L Low -2.0 - 3.0 [facility] Comment on above: Performed By: #### A FPA4 ####[id number] [place] [address] BICARB, CALCULATED 22.5 mmol/L Normal 22.0 - 26.0 [facility] Comment on above: Performed By: #### A FPA4 ####[id number] [place] [address] CALCIUM,IONIZED 1.18 mmol/L Normal 1.10 - 1.33 [facility] Comment on above: Performed By: #### A FPA4 ####[id number] [place] [address] Chloride [Moles/Vol] 108 mmol/L High 98 - 107 [facility] Comment on above: Performed By: #### A FPA4 ####[id number] [place] [address] Glucose [Mass/Vol] 200 mg/dL High 74 - 99 [facility] Comment on above: Performed By: #### A FPA4 ####[id number] [place] [address] Hematocrit (Bld) [Volume fraction] 30.0 % Low 41.0 - 52.0 [facility] Comment on above: Performed By: #### A FPA4 ####[id number] [place] [address] Hemoglobin (Bld) [Mass/Vol] 10.1 g/dL Low 13.5 - 17.5 [facility] Comment on above: Performed By: #### A FPA4 ####[id number] [place] [address] Lactate [Moles/Vol] 1.1 mmol/L Normal 0.4 - 2.0 [facility] Comment on above: Performed By: #### A FPA4 ####[id number] [place] [address] OXY HGB 97.3 % Normal 94.0 - 98.0 [facility] Comment on above: Performed By: #### A FPA4 ####[id number] [place] [address] Oxygen (Bld) [Partial pressure] 144 mm[Hg] High 85 - 95 [facility] Comment on above: Performed By: #### A FPA4 ####[id number] [place] [address] PATIENT TEMPERATURE 37.0 degrees C Normal [facility] Comment on above: Result Comment: NOTE : PATIENT RESULTS ARE NOT CORRECTED FOR TEMPERATURE. Performed By: #### A FPA4 ####[id number] [place] [address] PCO2 39 mmHg Normal 38 - 42 [facility] Comment on above: Performed By: #### A FPA4 ####[id number] [place] [address] pH (Bld) 7.37 [pH] Low 7.38 - 7.42 [facility] Comment on above: Performed By: #### A FPA4 ####[id number] [place] [address] Potassium [Moles/Vol] 4.5 mmol/L Normal 3.5 - 5.3 [facility] Comment on above: Performed By: #### A FPA4 ####[id number] [place] [address] SO2 100 % Normal 94 - 100 [facility] Comment on above: Performed By: #### A FPA4 ####[id number] [place] [address] Sodium [Moles/Vol] 137 mmol/L Normal 136 - 145 [facility] Comment on above: Performed By: #### A FPA4 ####[id number] [place] [address] Anion gap [Moles/Vol] 10 mmol/L Normal 10 - 25 [facility] Comment on above: Performed By: #### A FPA4 ####[id number] [place] [address] BASE EXCESS-BLOOD -2.0 mmol/L Normal -2.0 - 3.0 [facility] Comment on above: Performed By: #### A FPA4 ####[id number] [place] [address] BICARB, CALCULATED 23.1 mmol/L Normal 22.0 - 26.0 [facility] Comment on above: Performed By: #### A FPA4 ####[id number] [place] [address] CALCIUM,IONIZED 1.16 mmol/L Normal 1.10 - 1.33 [facility] Comment on above: Performed By: #### A FPA4 ####[id number] [place] [address] Chloride [Moles/Vol] 108 mmol/L High 98 - 107 [facility] Comment on above: Performed By: #### A FPA4 ####[id number] [place] [address] Glucose [Mass/Vol] 180 mg/dL High 74 - 99 [facility] Comment on above: Performed By: #### A FPA4 ####[id number] [place] [address] Hematocrit (Bld) [Volume fraction] 32.0 % Low 41.0 - 52.0 [facility] Comment on above: Performed By: #### A FPA4 ####[id number] [place] [address] Hemoglobin (Bld) [Mass/Vol] 10.7 g/dL Low 13.5 - 17.5 [facility] Comment on above: Performed By: #### A FPA4 ####[id number] [place] [address] Lactate [Moles/Vol] 1.1 mmol/L Normal 0.4 - 2.0 [facility] Comment on above: Performed By: #### A FPA4 ####[id number] [place] [address] OXY HGB 96.2 % Normal 94.0 - 98.0 [facility] Comment on above: Performed By: #### A FPA4 ####[id number] [place] [address] Oxygen (Bld) [Partial pressure] 155 mm[Hg] High 85 - 95 [facility] Comment on above: Performed By: #### A FPA4 ####[id number] [place] [address] PATIENT TEMPERATURE 37.0 degrees C Normal [facility] Comment on above: Result Comment: NOTE : PATIENT RESULTS ARE NOT CORRECTED FOR TEMPERATURE. Performed By: #### A FPA4 ####[id number] [place] [address] PCO2 40 mmHg Normal 38 - 42 [facility] Comment on above: Performed By: #### A FPA4 ####[id number] [place] [address] pH (Bld) 7.37 [pH] Low 7.38 - 7.42 [facility] Comment on above: Performed By: #### A FPA4 ####[id number] [place] [address] Potassium [Moles/Vol] 4.6 mmol/L Normal 3.5 - 5.3 [facility] Comment on above: Performed By: #### A FPA4 ####[id number] [place] [address] SO2 99 % Normal 94 - 100 [facility] Comment on above: Performed By: #### A FPA4 ####[id number] [place] [address] Sodium [Moles/Vol] 136 mmol/L Normal 136 - 145 [facility] Comment on above: Performed By: #### A FPA4 ####[id number] [place] [address] Anion gap [Moles/Vol] 12 mmol/L Normal 10 - 25 [facility] Comment on above: Performed By: #### A FPA4 ####[id number] [place] [address] BASE EXCESS-BLOOD -0.8 mmol/L Normal -2.0 - 3.0 [facility] Comment on above: Performed By: #### A FPA4 ####[id number] [place] [address] BICARB, CALCULATED 24.3 mmol/L Normal 22.0 - 26.0 [facility] Comment on above: Performed By: #### A FPA4 ####[id number] [place] [address] CALCIUM,IONIZED 1.21 mmol/L Normal 1.10 - 1.33 [facility] Comment on above: Performed By: #### A FPA4 ####[id number] [place] [address] Chloride [Moles/Vol] 107 mmol/L Normal 98 - 107 [facility] Comment on above: Performed By: #### A FPA4 ####[id number] [place] [address] Glucose [Mass/Vol] 107 mg/dL High 74 - 99 [facility] Comment on above: Performed By: #### A FPA4 ####[id number] [place] [address] Hematocrit (Bld) [Volume fraction] 35.0 % Low 41.0 - 52.0 [facility] Comment on above: Performed By: #### A FPA4 ####[id number] [place] [address] Hemoglobin (Bld) [Mass/Vol] 11.8 g/dL Low 13.5 - 17.5 [facility] Comment on above: Performed By: #### A FPA4 ####[id number] [place] [address] Lactate [Moles/Vol] 1.0 mmol/L Normal 0.4 - 2.0 [facility] Comment on above: Performed By: #### A FPA4 ####[id number] [place] [address] OXY HGB 96.8 % Normal 94.0 - 98.0 [facility] Comment on above: Performed By: #### A FPA4 ####[id number] [place] [address] Oxygen (Bld) [Partial pressure] 153 mm[Hg] High 85 - 95 [facility] Comment on above: Performed By: #### A FPA4 ####[id number] [place] [address] PATIENT TEMPERATURE 37.0 degrees C Normal [facility] Comment on above: Result Comment: NOTE : PATIENT RESULTS ARE NOT CORRECTED FOR TEMPERATURE. Performed By: #### A FPA4 ####[id number] [place] [address] PCO2 41 mmHg Normal 38 - 42 [facility] Comment on above: Performed By: #### A FPA4 ####[id number] [place] [address] pH (Bld) 7.38 [pH] Normal 7.38 - 7.42 [facility] Comment on above: Performed By: #### A FPA4 ####[id number] [place] [address] Potassium [Moles/Vol] 4.0 mmol/L Normal 3.5 - 5.3 [facility] Comment on above: Performed By: #### A FPA4 ####[id number] [place] [address] SO2 100 % Normal 94 - 100 [facility] Comment on above: Performed By: #### A FPA4 ####[id number] [place] [address] Sodium [Moles/Vol] 139 mmol/L Normal 136 - 145 [facility] Comment on above: Performed By: #### A FPA4 ####[id number] [place] [address] Clinical Note - Pharmacy v2- Medication Educationon 12-03-2022 Clinical Note - Pharmacy v2-Medication Education Normal [facility] GLUCOSE-POCTon 12-03-2022 Glucose [Mass/Vol] 234 mg/dL High 74 - 99 [facility] Comment on above: Performed By: #### G SUSAN ####[id number] [place] [address] Glucose [Mass/Vol] 219 mg/dL High 74 - 99 [facility] Comment on above: Performed By: #### G SUSAN ####[id number] [place] [address] Glucose [Mass/Vol] 158 mg/dL High 74 - 99 [facility] Comment on above: Performed By: #### G SUSAN ####[id number] [place] [address] Laboratory - Blood bankon ABO group Nom (Bld) A [facility] 4100 Work Phone: Blood group antibody screen Ql Negative MG-Otolaryn gology-[place] [address] Work Phone: Rh immune globulin screen (Bld) [Interp] Positive MG-Otolary n gology-[place] [address] Work Phone: Laboratory - Chemistry and C hemistry - challengeon 12-03-2022 Glucose [Mass/Vol] 234 mg/dL above high threshold 74 - 99 MG-Otolaryn gology-[place] [address] Work Phone: Glucose [Mass/Vol] 219 mg/dL above high threshold 74 - 99 MG-Otolaryn gology-[place] [address] Work Phone: Anion gap 4 (BldA) [Moles/Vol] 11 mmol/L 10 - 25 MG-Otolaryn gology-[place] [address] Work Phone: Base excess Calc (Bld) [Moles/Vol] -2.5000 mmol/L below low threshold -2.0 - 3.0 MG-Otolaryn gology-[place] [address] Work Phone: Calcium.ionized (BldA) [Moles/Vol] 1.18 mmol/L See Below MG-Otolaryn gology-[place] [address] Work Phone: Comment on above: Reference Range: 1.1 0 - 1.33 Chloride (BldA) [Moles/Vol] 108 mmol/L above high threshold 98 - 107 MG-Otolaryn gology-[place] [address] Work Phone: [phone] CO2 (Bld) [Partial pressure] 39 mm[Hg] 38 - 42 MG-Otolaryn gology-[place] [address] Work Phone: Glucose [Mass/Vol] 200 mg/dL above high threshold 74 - 99 MG-Otolaryn gology-[place] [address] Work Phone: HCO3 (Bld) [Moles/Vol] 22.5 mmol/L See Below M GOtsheree [place] [address] Work Phone: [phone] Comment on above: Reference Range: 22. 0 - 26.0 Lactate (BldA) [Moles/Vol] 1.1 mmol/L 0.4 - 2.0 [facility]LEVELANDOtshannocklisbet [facility] [place]aleyJ[place] [address] Work Phone: [phone] Oxygen (Bld) [Partial pressure] 144 mm[Hg] above high threshold 85 - 95 [facility]ANDOtshannocklisbet [place] [address] Work Phone: [phone] Oxyhemoglobin (BldA) [Mass fraction] 97.3 % See Below [facility]LEVELANDOtshannocklisbet [facility] [place]sdaleyJ[place] [address] Work Phone: [phone] Comment on above: Reference Range: 94. 0 - 98.0 pH (Bld) 7.37 [pH] below low threshold See Below [facility] Hospitalolarlisbet [facility] [place]sdaleyJ[place] [address] Work Phone: [phone] Comment on above: Reference Range: 7.3 8 - 7.42 Potassium (BldA) [Moles/Vol] 4.5 mmol/L 3.5 - 5.3 [facility] [place]aleyJ[place] [address] Work Phone: [phone] Sodium (BldA) [Moles/Vol] 137 mmol/L 136 - 145 [place] [address] Work Phone: [phone] Anion gap 4 (BldA) [Moles/Vol] 10 mmol/L 10 - 25 [place] [address] Work Phone: Base excess Calc (Bld) [Moles/Vol] -2.0000 mmol/L -2.0 - 3.0 [facility]allisbet [facility] [place]aleyJ[place] [address] Work Phone: [phone] Calcium.ionized (BldA) [Moles/Vol] 1.16 mmol/L See Below [facility]Otolaryn [facility]-[place] [address] Work Phone: [phone] Comment on above: Reference Range: 1.1 0 - 1.33 Chloride (BldA) [Moles/Vol] 108 mmol/L above high threshold 98 - 107 MG-Otolaryn gology-[place] [address] Work Phone: [phone] CO2 (Bld) [Partial pressure] 40 mm[Hg] 38 - 42 MG-Otolaryn gology-[place] [address] Work Phone: [phone] Glucose [Mass/Vol] 180 mg/dL above high threshold 74 - 99 -Otolaryn gology-[place] [address] Work Phone: [phone] HCO3 (Bld) [Moles/Vol] 23.1 mmol/L See Below M G-Otolaryn [facility] centerogyJ[place] [address] Work Phone: [phone] Comment on above: Reference Range: 22. 0 - 26.0 Lactate (BldA) [Moles/Vol] 1.1 mmol/L 0.4 - 2.0 MG-Otolaryn gology-[place] [address] Work Phone: [phone] Oxygen (Bld) [Partial pressure] 155 mm[Hg] above high threshold 85 - 95 -Otshannockyn [facility] [place]sdaleyJ[place] [address] Work Phone: [phone] Oxyhemoglobin (BldA) [Mass fraction] 96.2 % See Below -Otolaryn gology-[place] [address] Work Phone: [phone] Comment on above: Reference Range: 94. 0 - 98.0 pH (Bld) 7.37 [pH] below low threshold See Below -Otolaryn gology-[place] [address] Work Phone: [phone] Comment on above: Reference Range: 7.3 8 - 7.42 Potassium (BldA) [Moles/Vol] 4.6 mmol/L 3.5 - 5.3 MG-Otolaryn [facility] [place]aleyJ[place] [address] Work Phone: [phone] Sodium (BldA) [Moles/Vol] 136 mmol/L 136 - 145 MG-Otolaryn [facility] centerogyJ[place] [address] Work Phone: [phone] Anion gap 4 (BldA) [Moles/Vol] 12 mmol/L 10 - 25 MG-Otolaryn [facility] centerogy[facility] [address] Work Phone: [phone] Base excess Calc (Bld) [Moles/Vol] -0.8000 mmol/L -2.0 - 3.0 MG-Otolaryn [facility] centerogyJ[place] [address] Work Phone: [phone] Calcium.ionized (BldA) [Moles/Vol] 1.21 mmol/L See Below -Otolaryn [facility] [place]aleyJ[place] [address] Work Phone: [phone] Comment on above: Reference Range: 1.1 0 - 1.33 Chloride (BldA) [Moles/Vol] 107 mmol/L 98 - 107 MG-Otshannocklisbet [facility] [place]aleyJ[place] [address] Work Phone: [phone] CO2 (Bld) [Partial pressure] 41 mm[Hg] 38 - 42 -Otshannocklisbet [facility] [place]sdaleyJ[place] [address] Work Phone: [phone] Glucose [Mass/Vol] 107 mg/dL above high threshold 74 - 99 MG-Otolaryn [facility] centerogyJ[place] [address] Work Phone: [phone] HCO3 (Bld) [Moles/Vol] 24.3 mmol/L See Below M GOtolaryn [facility] [place]sdaleyJ[place] [address] Work Phone: [phone] Comment on above: Reference Range: 22. 0 - 26.0 Lactate (BldA) [Moles/Vol] 1.0 mmol/L 0.4 - 2.0 MG-Otshannockyn [facility] [place]aleyJ[place] [address] Work Phone: [phone] Oxygen (Bld) [Partial pressure] 153 mm[Hg] above high threshold 85 - 95 -Otolarlisbet [facility] [place]aleyJ[place] [address] Work Phone: Oxyhemoglobin (BldA) [Mass fraction] 96.8 % See Below [facility]allisbet [facility] centerogyJ[place] [address] Work Phone: Comment on above: Reference Range: 94. 0 - 98.0 pH (Bld) 7.38 [pH] See Below [facility]LEVELANDOtolarlisbet [facility] centerogyJ[place] [address] Work Phone: Comment on above: Reference Range: 7.3 8 - 7.42 Potassium (BldA) [Moles/Vol] 4.0 mmol/L 3.5 - 5.3 [facility]allisbet [facility] [place]aleyJ[place] [address] Work Phone: Sodium (BldA) [Moles/Vol] 139 mmol/L 136 - 145 [facility] CenteryJ[facility] [place] [address] Work Phone: Glucose [Mass/Vol] 158 mg/dL above high threshold 74 - 99 [facility] Hospitallisbet [facility] [place]aleyJ[place] [address] Work Phone: Laboratory - Hematology and Cell countson 12-03-2022 Hematocrit Est (Bld) [Volume fraction] 30.0 % below low threshold See Below [facility] CLEVELANDOtolarlisbet [facility] centerhaileyyJennifer [place] [address] Work Phone: Comment on above: Reference Range: 41. 0 - 52.0 Hemoglobin (Bld) [Mass/Vol] 10.1 g/dL below low threshold See Below [facility] Hospitalolarlisbet [facility] [place]sdaleyJ[place] [address] Work Phone: Comment on above: Reference Range: 13. 5 - 17.5 Hematocrit Est (Bld) [Volume fraction] 32.0 % below low threshold See Below [facility] Hospitallisbet [facility] centerogyJ[place] [address] Work Phone: Comment on above: Reference Range: 41. 0 - 52.0 Hemoglobin (Bld) [Mass/Vol] 10.7 g/dL below low threshold See Below -[facility]aryn [facility]ologyCH[facility] 410 Work Phone: Comment on above: Reference Range: 13. 5 - 17.5 Hematocrit Est (Bld) [Volume fraction] 35.0 % below low threshold See Below -[facility]aryn [facility]ologyCH[facility] 4100 Work Phone: Comment on above: Reference Range: 41. 0 - 52.0 Hemoglobin (Bld) [Mass/Vol] 11.8 g/dL below low threshold See Below [facility]ANDOtolaryn gologyCH[facility] 4100 Work Phone: Comment on above: Reference Range: 13. 5 - 17.5 No Panel Informationon 12-03 MG-Otolaryn gology-[employer] [facility] Work Phone: Order Reconciliationon 12-03 Order Reconciliation Normal [facility] Patient Profile - Preop v3on 12-03-2022 Patient Profile - Preop v3 Normal [facility] Radiologyon 12-03-2022 XR Chest Single view Normal MG-O [facility]ogy[facility] 4100 Work Phone: TH CHEST; 1 VIEWon 3 TH CHEST; 1 VIEW Normal [facility] TYPE + SCREENon 12-03-2022 ABO TYPE A Normal [facility] Comment on above: Performed By: #### T +S ####[id number] [place] [address] RH TYPE Positive Normal [facility] Comment on above: Performed By: #### T +S ####[id number] [place] [address] [facility] Surgical Pathology Depar tmenton 12-03-2022 [facility] Surgical Pathology Department Normal [facility] Comment on above: Performed By: #### U HCS ####[facility] Surgical Pathology [id number]COhio[facility] [address] C Reactive Protein, Serumon 12-02-2022 CRP [Mass/Vol] 0.35 mg/dL MG-Otolary n gology-[facility] 4100 Work Phone: Comment on above: REF VALUE< 1.00 C-REACTIVE PROTEINon 023 C-REACTIVE PROTEIN 0.35 mg/dL Normal [facility] Comment on above: Order Comment: [facility] TEAM #6 Result Comment: REF VALUE< 1.00 Performed By: #### C RP ####[address] [address] CBC AND DIFFERENTIALon 12-02 % AUTOMATED IMMATURE GRAN 1.2 % High 0.0 - 0.9 [facility] Comment on above: Order Comment: [facility] C[facility] TEAM #6 Result Comment: Sarah ture Granulocyte Count (IG) includes promyelocytes, myelocytes and metamyelocytes but does not include bands. Percent differential counts (%) should be interpreted in the context of the absolute cell counts (cells/L). Performed By: #### C BCDF ####[address] [address] [address] Basophils (Bld) [#/Vol] 0.05 10*3/uL Normal 0.00 - 0.10 [facility] Comment on above: Order Comment: [facility] CARE TEAM #6 Performed By: #### C BCDF ####[address] [address] Basophils/100 WBC (Bld) 0.6 % Normal 0.0 - 2.0 [facility] Comment on above: Order Comment: [facility] CARE TEAM #6 Performed By: #### C BCDF ####[address] [address] Eosinophils (Bld) [#/Vol] 0.16 10*3/uL Normal 0.00 - 0.70 [facility] Comment on above: Order Comment: [facility] CARE TEAM #6 Performed By: #### C BCDF ####[address] [address] Eosinophils/100 WBC (Bld) 1.9 % Normal 0.0 - 6.0 [facility] Comment on above: Order Comment: [facility] ME CARE TEAM #6 Performed By: #### C BCDF ####[address] [address] Erythrocyte distribution width (RBC) [Ratio] 15.0 % High 11.5 - 14.5 [facility] Comment on above: Order Comment: HO ME CARE TEAM #6 Performed By: #### C BCDF ####[address] [address] Hematocrit (Bld) [Volume fraction] 38.2 % Low 41.0 - 52.0 [facility] Comment on above: Order Comment: [facility] ME CARE TEAM #6 Performed By: #### C BCDF ####[address] [address] Hemoglobin (Bld) [Mass/Vol] 11.9 g/dL Low 13.5 - 17.5 [facility] Comment on above: Order Comment: HO ME CARE TEAM #6 Performed By: #### C BCDF ####[address] [address] Lymphocytes (Bld) [#/Vol] 1.40 10*3/uL Normal 1.20 - 4.80 [facility] Comment on above: Order Comment: HO ME CARE TEAM #6 Performed By: #### C BCDF ####[address] [address] Lymphocytes/100 WBC (Bld) 16.5 % Normal 13.0 - 44.0 [facility] Comment on above: Order Comment: HO ME CARE TEAM #6 Performed By: #### C BCDF ####[address] [address] MCHC (RBC) [Mass/Vol] 31.2 g/dL Low 32.0 - 36.0 [facility] Comment on above: Order Comment: HO ME CARE TEAM #6 Performed By: #### C BCDF ####[address] [address] MCV (RBC) [Entitic vol] 99 fL Normal 80 - 100 [facility] Comment on above: Order Comment: HO ME CARE TEAM #6 Performed By: #### C BCDF ####[address] [address] Monocytes (Bld) [#/Vol] 0.63 10*3/uL Normal 0.10 - 1.00 [facility] Comment on above: Order Comment: HO ME CARE TEAM #6 Performed By: #### C BCDF ####[address] [address] Monocytes/100 WBC (Bld) 7.4 % Normal 2.0 - 10.0 [facility] Comment on above: Order Comment: HO ME CARE TEAM #6 Performed By: #### C BCDF ####[address] [address] Neutrophils (Bld) [#/Vol] 6.13 10*3/uL Normal 1.20 - 7.70 [facility] Comment on above: Order Comment: [facility] ME CARE TEAM #6 Result Comment: Perc ent differential counts (%) should be interpreted in the context of the absolute cell counts (cells/L). Performed By: #### C BCDF ####[address] [address] Neutrophils/100 WBC (Bld) 72.4 % Normal 40.0 - 80.0 [facility] Comment on above: Order Comment: HO ME CARE TEAM #6 Performed By: #### C BCDF ####[address] [address] Platelets (Bld) [#/Vol] 346 10*3/uL Normal 150 - 450 [facility] Comment on above: Order Comment: HO ME CARE TEAM #6 Performed By: #### C BCDF ####[address] [address] RBC 3.85 x10E12/L Low 4.50 - 5.90 [facility] Comment on above: Order Comment: HO ME CARE TEAM #6 Performed By: #### C BCDF ####[address] [address] WBC (Bld) [#/Vol] 8.5 10*3/uL Normal 4.4 - 11.3 [facility] Comment on above: Order Comment: HO ME CARE TEAM #6 Performed By: #### C BCDF ####[address] [address] COMPREHENSIVE PANELon 2022 Albumin [Mass/Vol] 3.8 g/dL Normal 3.4 - 5.0 [facility] Comment on above: Order Comment: HO ME CARE TEAM #6 Performed By: #### C MP ####[address] [address] ALP [Catalytic activity/Vol] 50 U/L Normal 33 - 136 [facility] Comment on above: Order Comment: [facility] ME CARE TEAM #6 Performed By: #### C MP ####[address] [address] ALT [Catalytic activity/Vol] 14 U/L Normal 10 - 52 [facility] Comment on above: Order Comment: [facility] ME CARE TEAM #6 Result Comment: Radha ents treated with Sulfasalazine may generate falsely decreased results for ALT. Performed By: #### C MP ####[address] [address] Anion gap [Moles/Vol] 15 mmol/L Normal 10 - 20 [facility] Comment on above: Order Comment: HO ME CARE TEAM #6 Performed By: #### C MP ####[address] [address] AST [Catalytic activity/Vol] 17 U/L Normal 9 - 39 [facility] Comment on above: Order Comment: HO ME CARE TEAM #6 Performed By: #### C MP ####[address] [address] Bilirubin [Mass/Vol] 0.5 mg/dL Normal 0.0 - 1.2 [facility] Comment on above: Order Comment: HO ME CARE TEAM #6 Performed By: #### C MP ####[address] [address] Calcium [Mass/Vol] 9.0 mg/dL Normal 8.6 - 10.3 [facility] Comment on above: Order Comment: [facility] CARE TEAM #6 Performed By: #### C MP ####[address] [address] Chloride [Moles/Vol] 103 mmol/L Normal 98 - 107 [facility] Comment on above: Order Comment: [facility] CARE TEAM #6 Performed By: #### C MP ####[address] [address] Creatinine [Mass/Vol] 1.54 mg/dL High 0.50 - 1.30 [facility] Comment on above: Order Comment: [facility] CARE TEAM #6 Performed By: #### C MP ####[address] [address] GFR/1.73 sq M.predicted among non-blacks MDRD (S/P/Bld) [Vol rate/Area] 48 mL/min/{1.73_m2} Abnormal >90 [facility] Comment on above: Order Comment: [facility] CARE TEAM #6 Result Comment: CALC ULATIONS OF ESTIMATED GFR ARE PERFORMED USING THE 2020 CKD-EPI STUDY REFIT EQUATION WITHOUT THE RACE VARIABLE FOR THE IDMS-TRACEABLE CREATININE METHODS.https://jasn.asnjournals.org/content/early//A SN.8386694032 Performed By: #### C MP ####[address] [address] Glucose [Mass/Vol] 185 mg/dL High 74 - 99 [facility] Comment on above: Order Comment: [facility] CARE TEAM #6 Performed By: #### C MP ####[address] [address] HCO3 (Bld) [Moles/Vol] 24 mmol/L Normal 21 - 32 [facility] Comment on above: Order Comment: [facility] CARE TEAM #6 Performed By: #### C MP ####[address] [address] Potassium [Moles/Vol] 3.7 mmol/L Normal 3.5 - 5.3 [facility] Comment on above: Order Comment: [email or web address] ME CARE TEAM #6 Performed By: #### C MP ####[address] [address] Protein [Mass/Vol] 6.8 g/dL Normal 6.4 - 8.2 [facility] Comment on above: Order Comment: [facility] [[email or web address] ME CARE TEAM #6 Performed By: #### C MP ####[address] [address] Sodium [Moles/Vol] 138 mmol/L Normal 136 - 145 [facility] Comment on above: Order Comment: [facility] [[email or web address] ME CARE TEAM #6 Performed By: #### C MP ####[address] [address] Urea nitrogen [Mass/Vol] 44 mg/dL High 6 - 23 [facility] Comment on above: Order Comment: [facility] [[email or web address] ME CARE TEAM #6 Performed By: #### C MP ####[address] [address] CORONAVIRUS 2019, SCREEN ASY MPTOMATICon 12-02-2022 SARS-CoV-2 (COVID-19) RNA JF+probe Ql (Unsp spec) Not detected Normal Not Detected [facility] Comment on above: Result Comment: .Thi s assay is designed to detect the ORF1a/b and E genes of SARS-CoV-2 vianucleic acid amplification. A Not Detected result does not [id number] infection since the adequacy of sample collection and/or low viralburden may result in presence of viral nucleic acids below the clinicalsensitivity of this test method.Fact sheet for providers: https://www.fda.gov/media/592583/downloadFact sheet for patients: https://www.fda.gov/media/069165/downloadThis test has received FDA Emergency Use Authorization (EUA) and has beenverified for use by [facility] ([facility]).This test is only authorized for the duration of time that circumstancesexist to justify the authorization of the emergency use of in vitrodiagnostic tests for the detection of SARS-CoV-2 virus and/or diagnosis ofCOVID-19 infection under section 564(b)(1) of the Act, 21 U.S.C.360bbb-3(b)(1), unless the authorization is terminated or revoked sooner.[facility] is certified under CLIA-88 asqualified to perform high complexity testing. Testing is performed in [facility] laboratories located at [address] [place] [address]. Performed By: #### C OVSC ####[id number] [facility] [place] [address] Complete Blood Count + Diffe bartoloon 12-02-2022 Basophils/100 WBC (Bld) 0.6 % 0.0 - 2.0 [facility]tt[facility] hospitaly[place] [address] Work Phone: Erythrocyte distribution width (RBC) [Ratio] 15.0 % above high threshold See Below [facility] [address] Work Phone: Comment on above: Reference Range: 11. 5 - 14.5 Hematocrit (Bld) [Volume fraction] 38.2 % below low threshold See Below [facility] [place] [address] Work Phone: Comment on above: Reference Range: 41. 0 - 52.0 Hemoglobin (Bld) [Mass/Vol] 11.9 g/dL below low threshold See Below [facility] [place] [address] Work Phone: Comment on above: Reference Range: 13. 5 - 17.5 Lymphocytes/100 WBC (Bld) 16.5 % See Below [facility] [place] [address] Work Phone: Comment on above: Reference Range: 13. 0 - 44.0 MCHC (RBC) [Mass/Vol] 31.2 g/dL below low threshold See Below [facility] [place] [address] Work Phone: Comment on above: Reference Range: 32. 0 - 36.0 MCV (RBC) [Entitic vol] 99 fL 80 - 100 [facility] [address] Work Phone: [phone] Monocytes/100 WBC (Bld) 7.4 % 2.0 - 10.0 [facility] [address] Work Phone: [phone] Neutrophils/100 WBC (Bld) 72.4 % See Below [facility] [address] Work Phone: [phone] Comment on above: Reference Range: 40. 0 - 80.0 Platelets (Bld) [#/Vol] 346 10*3/uL 150 - 450 -[facility]ologyJ[place] [address] Work Phone: [phone] RBC (Bld) [#/Vol] 3.85 {x10E12/L} below low threshold See Below [facility] [address] Work Phone: [phone] Comment on above: Reference Range: 4.5 0 - 5.90 WBC (Bld) [#/Vol] 8.5 10*3/uL 4.4 - 11.3 [facility]-Mao laryn [facility] [place]aleyJ[place] [address] Work Phone: [phone] Complete Blood Count + Differential 0.05 {x10E9/L} See Below [facility] [address] Work Phone: [phone] Comment on above: Reference Range: 0.0 0 - 0.10 Complete Blood Count + Differential 0.16 {x10E9/L} See Below [facility] [address] Work Phone: [phone] Comment on above: Reference Range: 0.0 0 - 0.70 Complete Blood Count + Differential 0.63 {x10E9/L} See Below [facility] [address] Work Phone: [phone] Comment on above: Reference Range: 0.1 0 - 1.00 Complete Blood Count + Differential 1.40 {x10E9/L} See Below [facility] 410 Work Phone: Comment on above: Reference Range: 1.2 0 - 4.80 Complete Blood Count + Differential 6.13 {x10E9/L} See Below [facility] 410 Work Phone: Comment on above: Reference Range: 1.2 0 - 7.70 Percent differential counts (%) should be interpreted in the context of the absolute cell counts (cells/L). Complete Blood Count + Differential 1.9 % 0.0 - 6.0 [facility] 4100 Work Phone: Complete Blood Count + Differential 1.2 % above high threshold 0.0 - 0.9 [place] [address] Work Phone: Comment on above: Immature Granulocyte Count (IG) includes promyelocytes, myelocytes and metamyelocytes but does not include bands. Percent differential counts (%) should be interpreted in the context of the absolute cell counts (cells/L). Covid 19 Resultson 3 SARS-CoV-2 (COVID-19) RNA JF+probe Ql (Unsp spec) Normal [facility] Laboratory - Chemistry and C hemistry - challengeon 12-02-2022 Albumin BCP dye [Mass/Vol] 3.8 g/dL 3.4 - 5.0 [facility] 4100 Work Phone: ALP [Catalytic activity/Vol] 50 U/L 33 - 136 [facility] 4100 Work Phone: ALT With P-5'-P [Catalytic activity/Vol] 14 U/L 10 - 52 [place] [address] Work Phone: Comment on above: Patients treated wit h Sulfasalazine may generate falsely decreased results for ALT. Anion gap [Moles/Vol] 15 mmol/L 10 - 20 [facility] [address] Work Phone: [phone] AST With P-5'-P [Catalytic activity/Vol] 17 U/L 9 - 39 [facility]-[place] 4[address]30 Work Phone: [phone] Bilirubin [Mass/Vol] 0.5 mg/dL 0.0 - 1.2 [facility]aryn [facility]-[place] 4[address]30 Work Phone: [phone] Calcium [Mass/Vol] 9.0 mg/dL 8.6 - 10.3 [facility] l[facility] [address] Work Phone: [phone] Chloride [Moles/Vol] 103 mmol/L 98 - 107 [facility] tolaryn [facility]-[place] 4[address] Work Phone: [phone] CO2 [Moles/Vol] 24 mmol/L 21 - 32 [facility]olar [facility]n [facility] [address] Work Phone: [phone] Creatinine [Mass/Vol] 1.54 mg/dL above high threshold See Below [facility] [address] Work Phone: [phone] Comment on above: Reference Range: 0.5 0 - 1.30 Glucose [Mass/Vol] 185 mg/dL above high threshold 74 - 99 [facility] [address] Work Phone: [phone] Potassium [Moles/Vol] 3.7 mmol/L 3.5 - 5.3 [facility]- [facility] 4[address] Work Phone: [phone] Protein [Mass/Vol] 6.8 g/dL 6.4 - 8.2 [facility] laryn [facility] 4[address] Work Phone: [phone] Sodium [Moles/Vol] 138 mmol/L 136 - 145 [facility] 4100 Work Phone: Urea nitrogen [Mass/Vol] 44 mg/dL above high threshold 6 - 23 [facility] 4100 Work Phone: No Panel Informationon 12-02 48 {mL/min/1.73m2} Abnormal >90 [facility] 4100 Work Phone: Comment on above: CALCULATIONS OF REYNALDO MATED GFR ARE PERFORMED USING THE 2020 CKD-EPI STUDY REFIT EQUATION WITHOUT THE RACE VARIABLE FOR THE IDMS-TRACEABLE CREATININE METHODS.https://jasn.asnjournals.org/content/early/A SN.2471553710 Absolute lymphocyte countOrd ered By: Dr. Benitez on 12-01-2022 Lymphocytes Auto (Unsp spec) [#/Vol] 1.84 10*3/uL 0.83-4.51 [facility] Basophil percentageOrdered B y: Dr. Benitez on 12-01-2022 Basophils/100 WBC (Bld) 0.8 % 0-1 [facility] Bilirubin [Mass/Vol] 0.20 mg/dL 0.20-1.00 [facility] Comment on above: For patients on eltr ombopag therapy, use of Dimension [place] TBIL is not recommended. Chloride [Moles/Vol] 108 mmol/L 98-107 [facility] Eosinophils/100 WBC (Bld) 3.1 % 0-5 [facility] Glucose [Mass/Vol] 191 mg/dL 74-106 [facility] Comment on above: Fasting Glucose resu lt greater than or equal to 126 mg/dL suggests DIABETES MELLITUS per A.D.A. criteria. Neutrophils (Bld) [#/Vol] 4.6 10*3/uL 2.0-7.7 [facility] Neutrophils/100 WBC (Bld) 62.0 % 47-70 [facility] Potassium [Moles/Vol] 3.7 mmol/L 3.5-5.1 [facility] Protein [Mass/Vol] 6.8 g/dL 6.4-8.2 [facility] Sodium [Moles/Vol] 138 mmol/L 136-145 [facility] WBC (Bld) [#/Vol] 7.5 10*3/uL 4.4-11.0 [facility] Blood erythrocytes count (nu mber/volume)Ordered By: Dr. Benitez on 12-01-2022 RBC (Bld) [#/Vol] 4.06 10*6/uL 4.6-6.2 [facility] Blood hemoglobin measurement (mass/volume)Ordered By: Dr. Benitez on 12-01-2022 Hemoglobin (Bld) [Mass/Vol] 12.8 g/dL 13.0-16.5 [facility] Blood lymphocytes/100 leukoc ytesOrdered By: Dr. Benitez on 12-01-2022 Lymphocytes/100 WBC (Bld) 24.7 % 19-41 [facility] Blood monocytes/100 leukocyt esOrdered By: Dr. Benitez on 12-01-2022 Monocytes/100 WBC (Bld) 8.7 % 0-10 [facility] Blood platelet mean volumeOr dered By: Dr. Benitez on 12-01-2022 Platelet mean volume (Bld) [Entitic vol] 9.4 fL 6.2-12.0 [facility] CORONAVIRUS 2019, SCREEN ASY MPTOMATICon 12-01-2022 Lab Specimen Source Nasal, Nasopharyngeal Normal [facility] Comment on above: Performed By: #### C OVSC ####[id number] [place] [address] Coronavirus 2019 RNA by PCR, Screening Asymptomticon 12-01-2022 Coronavirus 2019 RNA by PCR, Screening Asymptomtic Not detected Normal See Below [facility]aryn [facility] centerogyCH[facility] 3763 Work Phone: Comment on above: SOURCE: Nasal, [...] this test method. Fact sheet for providers: https://www.fda.gov/media/873614/download Fact sheet for patients: https://www.fda.gov/media/459842/download This test has received FDA Emergency Use Authorization (EUA) and has been verified for use by [facility] ([facility]). This test is only authorized for the duration of time that circumstances exist to justify the authorization of the emergency use of in vitro diagnostic tests for the detection of SARS-CoV-2 virus and/or diagnosis of COVID-19 infection under section 564(b)(1) of the Act, 21 U.S.C. 360bbb-3(b)(1), unless the authorization is terminated or revoked sooner.[facility] is certified under CLIA-88 as qualified to perform high complexity testing. Testing is performed in the [facility] laboratories located at [address] [place] [address]. Determination of erythrocyte mean corpuscular volume (MCV)Ordered By: Dr. 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 [facility] Hematocrit Auto (Bld) [Volum e fraction]Ordered By: Dr. Benitez on 12-01-2022 Hematocrit (Bld) [Volume fraction] 40.4 % 40-54 [facility] INR in Blood by Coagulation assayOrdered By: Dr. Benitez on 12-01-2022 INR Coag (Bld) [Relative time] 5.9 {INR} [facility] Laboratory - Chemistry and C hemistry - challengeOrdered By: Dr. Benitez on 12-01-2022 ALP [Catalytic activity/Vol] 63 U/L 45-117 [facility] ALT [Catalytic activity/Vol] 24 U/L 16-61 [facility] CO2 [Moles/Vol] 25.0 mmol/L 21.0-32.0 [facility] Globulin (S) [Mass/Vol] 3.9 g/dL 2.2-4.2 [facility] Urea nitrogen/Creatinine [Mass ratio] 16.9 mg/mg 10-20 [facility] Laboratory - Coagulationon 0 12-01-2022 INR Coag (PPP) [Relative time] 1.3 {INR} above high threshold 0.9 - 1.1 [facility] 4100 Work Phone: PT Coag (PPP) [Time] 14.9 s above high threshold 9.8 - 13.4 [facility] 4100 Work Phone: Laboratory - CoagulationOrde red By: Dr. Benitez on 12-01-2022 PT Coag (PPP) [Time] 52.9 s 11.7-14.9 [facility] Laboratory - Hematology and Cell countsOrdered By: Dr. Benitez on 12-01-2022 Erythrocyte distribution width (RBC) [Entitic vol] 54.3 fL 35.1-43.9 [facility] Erythrocyte distribution width (RBC) [Ratio] 14.9 % 11.6-14.6 [facility] Immature granulocytes/100 WBC (Bld) 0.700 % 0.0-0.9 [facility] Comment on above: IG% - Immature Granu locytes (promyelocytes, myelocytes and metamyelocytes) > 1% indicates that a LEFT SHIFT is Present. MCH (RBC) [Entitic mass] 31.5 pg 27.0-32.0 [facility] Nucleated RBC/100 WBC (Bld) [Ratio] 0 % 0-5 [facility] Auto (RBC) [Mass/Vol]Or dered By: Dr. Benitez on 12-01-2022 [facility] (RBC) [Mass/Vol] 31.7 g/dL 32-36 [facility] No Panel InformationOrdered By: Dr. 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) Orders Mouth lesion, Oroantral fistula, Osteomyelitis of maxilla PT/INR; Status:Resulted - Requires Verification,Retrospectiv e By Protocol Authorization; Done: [id number] 10:38AM Performed:[facility]; Due:[id number];Ordered; Stat; For:Mouth lesion, Oroantral fistula, Osteomyelitis of [...] [Time] 14.9 s High 9.8 - 13.4 [facility] Comment on above: Performed By: #### P TINR ####[facility] [id number] [place] [address] PT, INR 1.3 High 0.9 - 1.1 [facility] Comment on above: Performed By: #### P TINR ####[id number] [place] [address] Platelets bldOrdered By: Dr. Benitez on 12-01-2022 Platelets (Bld) [#/Vol] 300 10*3/uL 150-450 [facility] Serum or plasma albumin lisa urement (mass/volume)Ordered By: Dr. Benitez on 12-01-2022 Albumin [Mass/Vol] 2.9 g/dL 3.2-5.0 [facility] Serum or plasma albumin/glob ulin mass ratioOrdered By: Dr. Benitez on 12-01-2022 Albumin/Globulin [Mass ratio] 0.7 {ratio} 0.9-2.4 [facility] Serum or plasma calcium lisa urement (mass/volume)Ordered By: Dr. Benitez on 12-01-2022 Calcium [Mass/Vol] 8.9 mg/dL 8.5-10.1 [facility] Serum or plasma creatinine m easurement (mass/volume)Ordered By: Dr. Benitez on 12-01-2022 Creatinine [Mass/Vol] 1.78 mg/dL 0.70-1.30 [facility] Comment on above: The validity of the calculated GFR & GFRAA in patients over 70 years has not been determined. Clinical correlation is essential. Serum or plasma urea nitroge n measurement (mass/volume)Ordered By: Dr. Benitez on 12-01-2022 Urea nitrogen [Mass/Vol] 30 mg/dL 7-18 [facility] Thin prep Papanicolaou smear with manual screeningOrdered By: Dr. Benitez on 12-01-2022 Thin prep Papanicolaou smear with manual screening 20 U/L 15-37 [facility] Thin prep Papanicolaou smear with manual screening 5 5-15 [facility] Tobacco Screening.on 023 Adult depression screening assessment No [facility] 4100 Work Phone: Fall risk assessment a) No falls within the last year [facility]ANDOtshannockyn [facility] 4100 Work Phone: Tobacco use status [facility]PH[facility] b) No -Otolaryn [facility] 4100 Work Phone: BASIC METABOLIC PANELon 11-15 Anion gap [Moles/Vol] 17 mmol/L Normal 10 - 20 [facility] Comment on above: Performed By: #### B MP ####[id number] [place] [address] Calcium [Mass/Vol] 9.4 mg/dL Normal 8.6 - 10.6 [facility] Comment on above: Performed By: #### B MP ####[id number] [place] [address] Chloride [Moles/Vol] 100 mmol/L Normal 98 - 107 [facility] Comment on above: Performed By: #### B MP ####[id number] [place] [address] Creatinine [Mass/Vol] 1.52 mg/dL High 0.50 - 1.30 [facility] Comment on above: Performed By: #### B MP ####[id number] [place] [address] GFR/1.73 sq M.predicted among non-blacks MDRD (S/P/Bld) [Vol rate/Area] 49 mL/min/{1.73_m2} Abnormal >90 [facility] Comment on above: Result Comment: CALC ULATIONS OF ESTIMATED GFR ARE PERFORMED USING THE 2020 CKD-EPI STUDY REFIT EQUATION WITHOUT THE RACE VARIABLE FOR THE IDMS-TRACEABLE CREATININE METHODS.https://jasn.asnjournals.org/content//A SN.6924925983 Performed By: #### B MP ####[id number] [place] [address] Glucose [Mass/Vol] 140 mg/dL High 74 - 99 [facility] Comment on above: Performed By: #### B MP ####[id number] [place] [address] HCO3 (Bld) [Moles/Vol] 26 mmol/L Normal 21 - 32 [facility] Comment on above: Performed By: #### B MP ####[id number] [place] [address] Potassium [Moles/Vol] 3.7 mmol/L Normal 3.5 - 5.3 [facility] Comment on above: Performed By: #### B MP ####[id number] [place] [address] Sodium [Moles/Vol] 139 mmol/L Normal 136 - 145 [facility] Comment on above: Performed By: #### B MP ####[id number] [place] [address] Urea nitrogen [Mass/Vol] 20 mg/dL Normal 6 - 23 [facility] Comment on above: Performed By: #### B MP ####[id number] [place] [address] C-REACTIVE PROTEINon 023 C-REACTIVE PROTEIN 0.88 mg/dL Normal [facility] Comment on above: Result Comment: REF VALUE< 1.00 Performed By: #### C RP ####[id number] [place] [address] CBC AND DIFFERENTIALon 11-25 % AUTOMATED IMMATURE GRAN 0.7 % Normal 0.0 - 0.9 [facility] Comment on above: Result Comment: Sarah ture Granulocyte Count (IG) includes promyelocytes, myelocytes and metamyelocytes but does not include bands. Percent differential counts (%) should be interpreted in the context of the absolute cell counts (cells/L). Performed By: #### C BCDF ####[id number] [place] [address] Basophils (Bld) [#/Vol] 0.04 10*3/uL Normal 0.00 - 0.10 [facility] Comment on above: Performed By: #### C BCDF ####[id number] [place] [address] Basophils/100 WBC (Bld) 0.5 % Normal 0.0 - 2.0 [facility] Comment on above: Performed By: #### C BCDF ####[id number] [place] [address] Eosinophils (Bld) [#/Vol] 0.13 10*3/uL Normal 0.00 - 0.70 [facility] Comment on above: Performed By: #### C BCDF ####[id number] [place] [address] Eosinophils/100 WBC (Bld) 1.5 % Normal 0.0 - 6.0 [facility] Comment on above: Performed By: #### C BCDF ####[id number] [place] [address] Erythrocyte distribution width (RBC) [Ratio] 14.8 % High 11.5 - 14.5 [facility] Comment on above: Performed By: #### C BCDF ####[id number] [place] [address] Hematocrit (Bld) [Volume fraction] 42.7 % Normal 41.0 - 52.0 [facility] Comment on above: Performed By: #### C BCDF ####[id number] [place] [address] Hemoglobin (Bld) [Mass/Vol] 13.7 g/dL Normal 13.5 - 17.5 [facility] Comment on above: Performed By: #### C BCDF ####[id number] [place] [address] Lymphocytes (Bld) [#/Vol] 1.65 10*3/uL Normal 1.20 - 4.80 [facility] Comment on above: Performed By: #### C BCDF ####[id number] [place] [address] Lymphocytes/100 WBC (Bld) 19.3 % Normal 13.0 - 44.0 [facility] Comment on above: Performed By: #### C BCDF ####[id number] [place] [address] MCHC (RBC) [Mass/Vol] 32.1 g/dL Normal 32.0 - 36.0 [facility] Comment on above: Performed By: #### C BCDF ####[id number] [place] [address] MCV (RBC) [Entitic vol] 98 fL Normal 80 - 100 [facility] Comment on above: Performed By: #### C BCDF ####[id number] [place] [address] Monocytes (Bld) [#/Vol] 0.60 10*3/uL Normal 0.10 - 1.00 [facility] Comment on above: Performed By: #### C BCDF ####[id number] [place] [address] Monocytes/100 WBC (Bld) 7.0 % Normal 2.0 - 10.0 [facility] Comment on above: Performed By: #### C BCDF ####[id number] [place] [address] Neutrophils (Bld) [#/Vol] 6.07 10*3/uL Normal 1.20 - 7.70 [facility] Comment on above: Performed By: #### C BCDF ####[id number] [place] [address] Neutrophils/100 WBC (Bld) 71.0 % Normal 40.0 - 80.0 [facility] Comment on above: Performed By: #### C BCDF ####[id number] [place] [address] NUCLEATED RBC 0.0 /100 WBC Normal 0.0-0.0 [facility] Comment on above: Performed By: #### C BCDF ####[id number] [place] [address] Platelets (Bld) [#/Vol] 330 10*3/uL Normal 150 - 450 [facility] Comment on above: Performed By: #### C BCDF ####[id number] [place] [address] RBC 4.36 x10E12/L Low 4.50 - 5.90 [facility] Comment on above: Performed By: #### C BCDF ####[id number] [place] [address] WBC (Bld) [#/Vol] 8.6 10*3/uL Normal 4.4 - 11.3 [facility] Comment on above: Performed By: #### C BCDF ####[id number] [place] [address] Established Visit (Otolaryng ology)on 11-25-2022 Established Visit [...] TABS Vitals Vital Signs Recorded: 25Nov2022 02:39PM Dscijkvubjr44 F, Temporal Heart Rate59 Lxieakkbseh89 Xyfeavbn654 Bvwxsravi54 Height6 ft 1 in Pgmpzh407 lb 8 oz BMI Qgmqjnqvol20.14 kg/m2 BSA Calculated2.49 Tobacco Useb) No PHQ-2 #1. Over the last 2 weeks have you felt down, depressed or hopeless? (If yes, answer PHQ-9 below)No PHQ-2 #2. Over the last 2 weeks have you felt little interest or pleasure in doing things? (If yes, answer PHQ-9 below)No Falls Screening (Age 18+)a) No falls within the last year O2 Fqryggyxbb82, RA Physical Exam nad alert cayden eomi NCAt nasal cavity clear ocop - large defect left maxilla with some crusting, remaining dentition stable, no purulence 'Scores and Scales' Signatures Electronically signed by (more content not included)... Normal [facility] Tobacco Screening.on 023 Adult depression screening assessment No -Infectio [facility] [employer] Phone: Fall risk assessment a) No falls within the last year MG-Infectio [facility] [employer] Phone: Tobacco use status CPHS b) No MG-Infectio [facility] [employer] Phone: C Reactive Protein, Serumon 11-24-2022 CRP [Mass/Vol] 0.88 mg/dL MG-Infecti o [facility] [employer] Phone: Comment on above: REF VALUE< 1.00 Complete Blood Count + Diffe rentialon 11-24-2022 Basophils/100 WBC (Bld) 0.5 % 0.0 - 2.0 MG-Infectio [facility] [employer] Phone: Erythrocyte distribution width (RBC) [Ratio] 14.8 % above high threshold See Below -Infectio [facility] [employer] Work Phone: Comment on above: Reference Range: 11. 5 - 14.5 Hematocrit (Bld) [Volume fraction] 42.7 % See Below -Infectio [facility] [employer] Phone: Comment on above: Reference Range: 41. 0 - 52.0 Hemoglobin (Bld) [Mass/Vol] 13.7 g/dL See Below [facility] [employer] Work Phone: [phone] Comment on above: Reference Range: 13. 5 - 17.5 Lymphocytes/100 WBC (Bld) 19.3 % See Below [facility] [employer] Phone: [phone] Comment on above: Reference Range: 13. 0 - 44.0 MCHC (RBC) [Mass/Vol] 32.1 g/dL See Below MG- [facility]io [facility] [employer] Phone: [phone] Comment on above: Reference Range: 32. 0 - 36.0 MCV (RBC) [Entitic vol] 98 fL 80 - 100 [facility] [employer] Phone: [phone] Monocytes/100 WBC (Bld) 7.0 % 2.0 - 10.0 MG-Infectio us [facility] [employer] Phone: [phone] Neutrophils/100 WBC (Bld) 71.0 % See Below MG-Infectio us [facility] [employer] Phone: [phone] Comment on above: Reference Range: 40. 0 - 80.0 Platelets (Bld) [#/Vol] 330 10*3/uL 150 - 450 MG-Infectio us [facility] [employer] Phone: [phone] RBC (Bld) [#/Vol] 4.36 {x10E12/L} below low threshold See Below MG-Infectio us [facility] [employer] Phone: [phone] Comment on above: Reference Range: 4.5 0 - 5.90 WBC (Bld) [#/Vol] 8.6 10*3/uL 4.4 - 11.3 MG-Inf ectio us [facility] [employer] Work Phone: [phone] Complete Blood Count + Differential 0.04 {x10E9/L} See Below MG-Infectio us [facility] [employer] Work Phone: Comment on above: Reference Range: 0.0 0 - 0.10 Complete Blood Count + Differential 0.13 {x10E9/L} See Below -Infectio us [facility] [employer] Work Phone: Comment on above: Reference Range: 0.0 0 - 0.70 Complete Blood Count + Differential 0.60 {x10E9/L} See Below [facility] [employer] Work Phone: Comment on above: Reference Range: 0.1 0 - 1.00 Complete Blood Count + Differential 1.65 {x10E9/L} See Below [facility] [employer] Work Phone: Comment on above: Reference Range: 1.2 0 - 4.80 Complete Blood Count + Differential 6.07 {x10E9/L} See Below -Infectio us [facility] [employer] Phone: Comment on above: Reference Range: 1.2 0 - 7.70 Complete Blood Count + Differential 1.5 % 0.0 - 6.0 MG-Infectio [facility] [employer] Phone: Complete Blood Count + Differential 0.7 % 0.0 - 0.9 MG-Infectio us [facility] [employer] Phone: Comment on above: Immature Granulocyte Count (IG) includes promyelocytes, myelocytes and metamyelocytes but does not include bands. Percent differential counts (%) should be interpreted in the context of the absolute cell counts (cells/L). Complete Blood Count + Differential 0.0 {/100_WBC} 0.0-0.0 [facility] [employer] Work Phone: Laboratory - Chemistry and C hemistry - challengeon 11-24-2022 Anion gap [Moles/Vol] 17 mmol/L 10 - 20 MG- Infectio us [facility] [employer] Phone: Calcium [Mass/Vol] 9.4 mg/dL 8.6 - 10.6 MG-Inf ectio [facility] [employer] Work Phone: Chloride [Moles/Vol] 100 mmol/L 98 - 107 MG-I nfectio [facility] [employer] Work Phone: CO2 [Moles/Vol] 26 mmol/L 21 - 32 [facility] [employer] Work Phone: Creatinine [Mass/Vol] 1.52 mg/dL above high threshold See Below MG-Infectio [facility] [employer] Work Phone: Comment on above: Reference Range: 0.5 0 - 1.30 Glucose [Mass/Vol] 140 mg/dL above high threshold 74 - 99 MG-Infectio [facility] [employer] Work Phone: Potassium [Moles/Vol] 3.7 mmol/L 3.5 - 5.3 MG- Infectio [facility] [employer] Work Phone: Sodium [Moles/Vol] 139 mmol/L 136 - 145 MG-Inf ectio [facility] [employer] Work Phone: Urea nitrogen [Mass/Vol] 20 mg/dL 6 - 23 MG-Infectio [facility] [employer] Work Phone: No Panel Informationon 11-24 49 {mL/min/1.73m2} Abnormal >90 MG-Inf ectio [facility] [employer] Work Phone: Comment on above: CALCULATIONS OF REYNALDO MATED GFR ARE PERFORMED USING THE 2020 CKD-EPI STUDY REFIT EQUATION WITHOUT THE RACE VARIABLE FOR THE IDMS-TRACEABLE CREATININE METHODS.https://jasn.asnjournals.org/content//A SN.4031872943 CBCon 11-18-2022 Erythrocyte distribution width (RBC) [Ratio] 14.1 % Normal 11.5 - 14.5 [facility] Comment on above: Performed By: #### C ####[id number] [place] [address] Hematocrit (Bld) [Volume fraction] 38.7 % Low 41.0 - 52.0 [facility] Comment on above: Performed By: #### C BC ####[id number] [place] [address] Hemoglobin (Bld) [Mass/Vol] 13.1 g/dL Low 13.5 - 17.5 [facility] Comment on above: Performed By: #### C BC ####[id number] [place] [address] MCHC (RBC) [Mass/Vol] 33.9 g/dL Normal 32.0 - 36.0 [facility] Comment on above: Performed By: #### C BC ####[id number] [place] [address] MCV (RBC) [Entitic vol] 92 fL Normal 80 - 100 [facility] Comment on above: Performed By: #### C BC ####[id number] [place] [address] NUCLEATED RBC 0.0 /100 WBC Normal 0.0-0.0 [facility] Comment on above: Performed By: #### C BC ####[id number] [place] [address] Platelets (Bld) [#/Vol] 284 10*3/uL Normal 150 - 450 [facility] Comment on above: Performed By: #### C BC ####[id number] [place] [address] RBC 4.20 x10E12/L Low 4.50 - 5.90 [facility] Comment on above: Performed By: #### C BC ####[id number] [place] [address] WBC (Bld) [#/Vol] 8.3 10*3/uL Normal 4.4 - 11.3 [facility] Comment on above: Performed By: #### C BC ####[id number] [place] [address] Clinical Note - Pharmacy v2- Discharge Med Counselingon 11-18-2022 Clinical Note - Pharmacy v2-Discharge Med Counseling Normal [facility] Laboratory - Coagulationon 0 11-18-2022 INR Coag (PPP) [Relative time] 1.1 {INR} 0.9 - 1.1 [facility] [employer] Phone: PT Coag (PPP) [Time] 12.5 s 9.8 - 13.4 MG-I nfectio us [facility] [employer] Work Phone: Laboratory - Hematology and Cell countson 11-18-2022 Erythrocyte distribution width (RBC) [Ratio] 14.1 % See Below MG[facility] [employer] Work Phone: Comment on above: Reference Range: 11. 5 - 14.5 Hematocrit (Bld) [Volume fraction] 38.7 % below low threshold See Below MG-Infectio us [facility] [employer] Phone: Comment on above: Reference Range: 41. 0 - 52.0 Hemoglobin (Bld) [Mass/Vol] 13.1 g/dL below low threshold See Below MG-Infectio us [facility] [employer] Phone: Comment on above: Reference Range: 13. 5 - 17.5 MCHC (RBC) [Mass/Vol] 33.9 g/dL See Below MG- Infectio us [facility] [employer] Phone: Comment on above: Reference Range: 32. 0 - 36.0 MCV (RBC) [Entitic vol] 92 fL 80 - 100 MG-Infectio us [facility] [employer] Work Phone: Platelets (Bld) [#/Vol] 284 10*3/uL 150 - 450 MG-Infectio us [facility] [employer] Work Phone: RBC (Bld) [#/Vol] 4.20 {x10E12/L} below low threshold See Below MG-Infectio us [facility] [employer] Phone: Comment on above: Reference Range: 4.5 0 - 5.90 WBC (Bld) [#/Vol] 8.3 10*3/uL 4.4 - 11.3 MG-Inf ectio us Disease-[facility] [employer] Work Phone: MAGNESIUMon 11-18-2022 Magnesium [Mass/Vol] 2.13 mg/dL Normal 1.60 - 2.40 [facility] Comment on above: Performed By: #### M G ####[id number] [place] [address] Magnesium, Serumon 3 Magnesium [Mass/Vol] 2.13 mg/dL See Below MG-I nfectio us Disease-[facility] [employer] Work Phone: Comment on above: Reference Range: 1.6 0 - 2.40 No Panel Informationon 11-18 0.0 {/100_WBC} 0.0-0.0 MG-Infecti o us Disease-[facility] [employer] Work Phone: PT/INRon 11-18-2022 PT Coag (PPP) [Time] 12.5 s Normal 9.8 - 13.4 [facility] Comment on above: Performed By: #### P TINR ####[id number] [place] [address] PT, INR 1.1 Normal 0.9 - 1.1 [facility] Comment on above: Performed By: #### P TINR ####[id number] [place] [address] RENAL FUNCTION PANELon 11-18 Albumin [Mass/Vol] 3.6 g/dL Normal 3.4 - 5.0 [facility] Comment on above: Performed By: #### R ENAL ####[id number] [place] [address] Anion gap [Moles/Vol] 13 mmol/L Normal 10 - 20 [facility] Comment on above: Performed By: #### R ENAL ####[id number] [place] [address] Calcium [Mass/Vol] 9.1 mg/dL Normal 8.6 - 10.6 [facility] Comment on above: Performed By: #### R ENAL ####[id number] [place] [address] Chloride [Moles/Vol] 102 mmol/L Normal 98 - 107 [facility] Comment on above: Performed By: #### R ENAL ####[id number] [place] [address] Creatinine [Mass/Vol] 1.15 mg/dL Normal 0.50 - 1.30 [facility] Comment on above: Performed By: #### R ENAL ####[id number] [place] [address] GFR/1.73 sq M.predicted among non-blacks MDRD (S/P/Bld) [Vol rate/Area] 68 mL/min/{1.73_m2} Normal >90 [facility] Comment on above: Result Comment: CALC ULATIONS OF ESTIMATED GFR ARE PERFORMED USING THE 2020 CKD-EPI STUDY REFIT EQUATION WITHOUT THE RACE VARIABLE FOR THE IDMS-TRACEABLE CREATININE METHODS.https://jasn.asnjournals.org/content//A SN.7700963694 Performed By: #### R ENAL ####[id number] [place] [address] Glucose [Mass/Vol] 143 mg/dL High 74 - 99 [facility] Comment on above: Performed By: #### R ENAL ####[id number] [place] [address] HCO3 (Bld) [Moles/Vol] 26 mmol/L Normal 21 - 32 [facility] Comment on above: Performed By: #### R ENAL ####[id number] [place] [address] Phosphate [Mass/Vol] 3.0 mg/dL Normal 2.5 - 4.9 [facility] Comment on above: Result Comment: The performance characteristics of phosphorus testing in heparinized plasma have been validated by the individual laboratory site where testing is performed. Testing on heparinized plasma is not approved by the FDA; however, such approval is not necessary. Performed By: #### R ENAL ####[id number] [place] [address] Potassium [Moles/Vol] 4.3 mmol/L Normal 3.5 - 5.3 [facility] Comment on above: Performed By: #### R ENAL ####[id number] [place] [address] Sodium [Moles/Vol] 137 mmol/L Normal 136 - 145 [facility] Comment on above: Performed By: #### R ENAL ####[id number] [place] [address] Urea nitrogen [Mass/Vol] 16 mg/dL Normal 6 - 23 [facility] Comment on above: Performed By: #### R ENAL ####[id number] [place] [address] Renal Function Panelon 11-18 Albumin BCP dye [Mass/Vol] 3.6 g/dL 3.4 - 5.0 [facility] [employer] Work Phone: Anion gap [Moles/Vol] 13 mmol/L 10 - 20 MG- [facility]io [facility] [employer] Work Phone: Calcium [Mass/Vol] 9.1 mg/dL 8.6 - 10.6 MG-Inf ectio us [facility] [employer] Work Phone: Chloride [Moles/Vol] 102 mmol/L 98 - 107 [facility] [employer] Work Phone: CO2 [Moles/Vol] 26 mmol/L 21 - 32 MG[facility]fect io [facility] [employer] Work Phone: Creatinine [Mass/Vol] 1.15 mg/dL See Below MG- Infectio [facility] [employer] Work Phone: Comment on above: Reference Range: 0.5 0 - 1.30 Glucose [Mass/Vol] 143 mg/dL above high threshold 74 - 99 [facility] [employer] Work Phone: Phosphate [Mass/Vol] 3.0 mg/dL 2.5 - 4.9 MG-I nfectio [facility] [employer] Work Phone: Comment on above: The performance violet acteristics of phosphorus testing in heparinized plasma have been validated by the individual laboratory site where testing is performed. Testing on heparinized plasma is not approved by the FDA; however, such approval is not necessary. Potassium [Moles/Vol] 4.3 mmol/L 3.5 - 5.3 MG- Infectio us Disease-[facility] [employer] Work Phone: Sodium [Moles/Vol] 137 mmol/L 136 - 145 MG-Inf ectio [facility] [employer] Work Phone: Urea nitrogen [Mass/Vol] 16 mg/dL 6 - 23 MG-Infectio [facility] [employer] Work Phone: Renal Function Panel 68 {mL/min/1.73m2} >90 MG-Infectio us [facility] [employer] Work Phone: Comment on above: CALCULATIONS OF REYNALDO MATED GFR ARE PERFORMED USING THE 2020 CKD-EPI STUDY REFIT EQUATION WITHOUT THE RACE VARIABLE FOR THE IDMS-TRACEABLE CREATININE METHODS.https://jasn.asnjournals.org/content//A SN.1192132652 Daily Progress Note-ENTon Daily Progress Note-ENT Normal [facility] Daily Progress Note-ENT Normal [facility] Daily Progress Note-Infectio us Diseaseon 11-17-2022 Daily Progress Note-Infectious Disease Normal [facility] Discharge Cokyqdg2py 023 Discharge Profile2 Normal [facility] GLUCOSE-POCTon 11-17-2022 Glucose [Mass/Vol] 181 mg/dL High 74 - 99 [facility] Comment on above: Performed By: #### G SUSAN ####[id number] [place] [address] Glucose [Mass/Vol] 145 mg/dL High 74 - 99 [facility] Comment on above: Performed By: #### G SUSAN ####[id number] [place] [address] Glucose [Mass/Vol] 102 mg/dL High 74 - 99 [facility] Comment on above: Performed By: #### G SUSAN ####[id number] [place] [address] Laboratory - Chemistry and C hemistry - challengeon 11-17-2022 Glucose [Mass/Vol] 181 mg/dL above high threshold 74 - 99 MG-Infectio us Disease-[facility] [employer] Work Phone: Glucose [Mass/Vol] 145 mg/dL above high threshold 74 - 99 [facility] Work Phone: Laboratory - Coagulationon 0 11-17-2022 INR Coag (PPP) [Relative time] 1.1 {INR} 0.9 - 1.1 MG-Otolaryn [facility] 4100 Work Phone: PT Coag (PPP) [Time] 12.6 s 9.8 - 13.4 MG-O tolaryn [facility] 4[address] Work Phone: Order Reconciliationon 11-17 Order Reconciliation Normal [facility] PT/INRon 11-17-2022 PT Coag (PPP) [Time] 12.6 s Normal 9.8 - 13.4 [facility] Comment on above: Performed By: #### P TINR ####[id number] [place] [address] PT, INR 1.1 Normal 0.9 - 1.1 [facility] Comment on above: Performed By: #### P TINR ####[id number] [place] [address] CBCon 11-16-2022 Erythrocyte distribution width (RBC) [Ratio] 14.3 % Normal 11.5 - 14.5 [facility] Comment on above: Performed By: #### C BC ####[id number] [place] [address] Hematocrit (Bld) [Volume fraction] 40.6 % Low 41.0 - 52.0 [facility] Comment on above: Performed By: #### C BC ####[id number] [place] [address] Hemoglobin (Bld) [Mass/Vol] 13.5 g/dL Normal 13.5 - 17.5 [facility] Comment on above: Performed By: #### C BC ####[id number] [place] [address] MCHC (RBC) [Mass/Vol] 33.3 g/dL Normal 32.0 - 36.0 [facility] Comment on above: Performed By: #### C BC ####[id number] [place] [address] MCV (RBC) [Entitic vol] 92 fL Normal 80 - 100 [facility] Comment on above: Performed By: #### C BC ####[id number] [place] [address] NUCLEATED RBC 0.0 /100 WBC Normal 0.0-0.0 [facility] Comment on above: Performed By: #### C BC ####[id number] [place] [address] Platelets (Bld) [#/Vol] 263 10*3/uL Normal 150 - 450 [facility] Comment on above: Performed By: #### C BC ####[id number] [place] [address] RBC 4.40 x10E12/L Low 4.50 - 5.90 [facility] Comment on above: Performed By: #### C BC ####[id number] [place] [address] WBC (Bld) [#/Vol] 9.2 10*3/uL Normal 4.4 - 11.3 [facility] Comment on above: Performed By: #### C BC ####[id number] [place] [address] Daily Progress Note-ENTon Daily Progress Note-ENT Normal [facility] Daily Progress Note-Infectio us Diseaseon 11-16-2022 Daily Progress Note-Infectious Disease Normal [facility] GLUCOSE-POCTon 11-16-2022 Glucose [Mass/Vol] 143 mg/dL High 74 - 99 [facility] Comment on above: Performed By: #### G SUSAN ####[id number] [place] [address] Glucose [Mass/Vol] 159 mg/dL High 74 - 99 [facility] Comment on above: Performed By: #### G SUSAN ####[id number] [place] [address] Laboratory - Chemistry and C hemistry - challengeon 11-16-2022 Glucose [Mass/Vol] 102 mg/dL above high threshold 74 - 99 [facility] [address] Work Phone: Glucose [Mass/Vol] 143 mg/dL above high threshold 74 - 99 [facility]-[place] [id number] Work Phone: Glucose [Mass/Vol] 159 mg/dL above high threshold 74 - 99 [facility] [address] Work Phone: Laboratory - Coagulationon 0 11-16-2022 INR Coag (PPP) [Relative time] 1.1 {INR} 0.9 - 1.1 [facility] [address] Work Phone: PT Coag (PPP) [Time] 12.4 s 9.8 - 13.4 [facility]-O tolaryn [facility]-[place] [id number] Work Phone: Laboratory - Hematology and Cell countson 11-16-2022 Erythrocyte distribution width (RBC) [Ratio] 14.3 % See Below [facility]tolaryn [facility]-[place] [address] Work Phone: Comment on above: Reference Range: 11. 5 - 14.5 Hematocrit (Bld) [Volume fraction] 40.6 % below low threshold See Below [facility] Work Phone: Comment on above: Reference Range: 41. 0 - 52.0 Hemoglobin (Bld) [Mass/Vol] 13.5 g/dL See Below [facility] 410 Work Phone: Comment on above: Reference Range: 13. 5 - 17.5 MCHC (RBC) [Mass/Vol] 33.3 g/dL See Below MG [facility] 4100 Work Phone: Comment on above: Reference Range: 32. 0 - 36.0 MCV (RBC) [Entitic vol] 92 fL 80 - 100 [facility] 410 Work Phone: Platelets (Bld) [#/Vol] 263 10*3/uL 150 - 450 [facility] 4100 Work Phone: RBC (Bld) [#/Vol] 4.40 {x10E12/L} below low threshold See Below [facility] 4100 Work Phone: Comment on above: Reference Range: 4.5 0 - 5.90 WBC (Bld) [#/Vol] 9.2 10*3/uL 4.4 - 11.3 [facility] 4100 Work Phone: MAGNESIUMon 11-16-2022 Magnesium [Mass/Vol] 2.38 mg/dL Normal 1.60 - 2.40 [facility] Comment on above: Performed By: #### M G ####[id number] [place] [address] Magnesium, Serumon Magnesium [Mass/Vol] 2.38 mg/dL See Below [facility] 4100 Work Phone: Comment on above: Reference Range: 1.6 0 - 2.40 No Panel Informationon 11-16 0.0 {/100_WBC} 0.0-0.0 MG-Otolary n [facility] 4100 Work Phone: PT Evaluation v2-physical th erapyon 11-16-2022 PT Evaluation v2-physical therapy Normal [facility] PT/INRon 11-16-2022 PT Coag (PPP) [Time] 12.4 s Normal 9.8 - 13.4 [facility] Comment on above: Performed By: #### P TINR ####[id number] [place] [address] PT, INR 1.1 Normal 0.9 - 1.1 [facility] Comment on above: Performed By: #### P TINR ####[id number] [place] [address] RENAL FUNCTION PANELon 11-16 Albumin [Mass/Vol] 3.6 g/dL Normal 3.4 - 5.0 [facility] Comment on above: Performed By: #### R ENAL ####[id number] [place] [address] Anion gap [Moles/Vol] 14 mmol/L Normal 10 - 20 [facility] Comment on above: Performed By: #### R ENAL ####[id number] [place] [address] Calcium [Mass/Vol] 8.8 mg/dL Normal 8.6 - 10.6 [facility] Comment on above: Performed By: #### R ENAL ####[id number] [place] [address] Chloride [Moles/Vol] 104 mmol/L Normal 98 - 107 [facility] Comment on above: Performed By: #### R ENAL ####[id number] [place] [address] Creatinine [Mass/Vol] 1.20 mg/dL Normal 0.50 - 1.30 [facility] Comment on above: Performed By: #### R ENAL ####[id number] [place] [address] GFR/1.73 sq M.predicted among non-blacks MDRD (S/P/Bld) [Vol rate/Area] 65 mL/min/{1.73_m2} Normal >90 [facility] Comment on above: Result Comment: CALC ULATIONS OF ESTIMATED GFR ARE PERFORMED USING THE 2020 CKD-EPI STUDY REFIT EQUATION WITHOUT THE RACE VARIABLE FOR THE IDMS-TRACEABLE CREATININE METHODS.https://jasn.asnjournals.org/content/early/A SN.0476692242 Performed By: #### R ENAL ####[id number] [place] [address] Glucose [Mass/Vol] 122 mg/dL High 74 - 99 [facility] Comment on above: Performed By: #### R ENAL ####[id number] [place] [address] HCO3 (Bld) [Moles/Vol] 24 mmol/L Normal 21 - 32 [facility] Comment on above: Performed By: #### R ENAL ####[id number] [place] [address] Phosphate [Mass/Vol] 2.7 mg/dL Normal 2.5 - 4.9 [facility] Comment on above: Result Comment: The performance characteristics of phosphorus testing in heparinized plasma have been validated by the individual laboratory site where testing is performed. Testing on heparinized plasma is not approved by the FDA; however, such approval is not necessary. Performed By: #### R ENAL ####[id number] [place] [address] Potassium [Moles/Vol] 4.6 mmol/L Normal 3.5 - 5.3 [facility] Comment on above: Performed By: #### R ENAL ####[id number] [place] [address] Sodium [Moles/Vol] 137 mmol/L Normal 136 - 145 [facility] Comment on above: Performed By: #### R ENAL ####[id number] [place] [address] Urea nitrogen [Mass/Vol] 21 mg/dL Normal 6 - 23 [facility] Comment on above: Performed By: #### R ENAL ####[id number] [place] [address] Renal Function Panelon 11-16 Albumin BCP dye [Mass/Vol] 3.6 g/dL 3.4 - 5.0 [facility]-Otolaryn [facility]ology-[facility] 4100 Work Phone: Anion gap [Moles/Vol] 14 mmol/L 10 - 20 MG- Otolaryn gology-[facility] 4100 Work Phone: [phone] Calcium [Mass/Vol] 8.8 mg/dL 8.6 - 10.6 MG-Mao laryn gology-[facility] 4100 Work Phone: [phone] Chloride [Moles/Vol] 104 mmol/L 98 - 107 [facility]-O tolaryn gology-[facility] 4100 Work Phone: [phone] CO2 [Moles/Vol] 24 mmol/L 21 - 32 MG-Otolar yn gology-[facility] 4100 Work Phone: [phone] Creatinine [Mass/Vol] 1.20 mg/dL See Below MG- Otolaryn gology-[facility] 4100 Work Phone: [phone] Comment on above: Reference Range: 0.5 0 - 1.30 Glucose [Mass/Vol] 122 mg/dL above high threshold 74 - 99 [facility]-Otolaryn gology-[facility] 4100 Work Phone: Phosphate [Mass/Vol] 2.7 mg/dL 2.5 - 4.9 MG-O tolaryn gology-[facility] 4100 Work Phone: Comment on above: The performance violet acteristics of phosphorus testing in heparinized plasma have been validated by the individual laboratory site where testing is performed. Testing on heparinized plasma is not approved by the FDA; however, such approval is not necessary. Potassium [Moles/Vol] 4.6 mmol/L 3.5 - 5.3 MG- Otolaryn [facility] 4100 Work Phone: [phone] Sodium [Moles/Vol] 137 mmol/L 136 - 145 MG-Winslow laryn [facility] 4100 Work Phone: [phone] Urea nitrogen [Mass/Vol] 21 mg/dL 6 - 23 [facility] 4100 Work Phone: [phone] Renal Function Panel 65 {mL/min/1.73m2} >90 [facility] 4100 Work Phone: Comment on above: CALCULATIONS OF REYNALDO MATED GFR ARE PERFORMED USING THE 2020 CKD-EPI STUDY REFIT EQUATION WITHOUT THE RACE VARIABLE FOR THE IDMS-TRACEABLE CREATININE METHODS.https://jasn.asnjournals.org/content//A SN.2572123403 CBCon 11-15-2022 Erythrocyte distribution width (RBC) [Ratio] 14.6 % High 11.5 - 14.5 [facility] Comment on above: Performed By: #### C BC ####[id number] [place] [address] Hematocrit (Bld) [Volume fraction] 38.3 % Low 41.0 - 52.0 [facility] Comment on above: Performed By: #### C BC ####[id number] [place] [address] Hemoglobin (Bld) [Mass/Vol] 12.7 g/dL Low 13.5 - 17.5 [facility] Comment on above: Performed By: #### C BC ####[id number] [place] [address] MCHC (RBC) [Mass/Vol] 33.2 g/dL Normal 32.0 - 36.0 [facility] Comment on above: Performed By: #### C BC ####[id number] [place] [address] MCV (RBC) [Entitic vol] 94 fL Normal 80 - 100 [facility] Comment on above: Performed By: #### C BC ####[id number] [place] [address] NUCLEATED RBC 0.0 /100 WBC Normal 0.0-0.0 [facility] Comment on above: Performed By: #### C BC ####[id number] [place] [address] Platelets (Bld) [#/Vol] 244 10*3/uL Normal 150 - 450 [facility] Comment on above: Performed By: #### C BC ####[id number] [place] [address] RBC 4.06 x10E12/L Low 4.50 - 5.90 [facility] Comment on above: Performed By: #### C BC ####[id number] [place] [address] WBC (Bld) [#/Vol] 8.2 10*3/uL Normal 4.4 - 11.3 [facility] Comment on above: Performed By: #### C BC ####[id number] [place] [address] Daily Progress Note-ENTon Daily Progress Note-ENT Normal [facility] GLUCOSE-POCTon 11-15-2022 Glucose [Mass/Vol] 257 mg/dL High 74 - 99 [facility] Comment on above: Performed By: #### G SUSAN ####[id number] [place] [address] Glucose [Mass/Vol] 121 mg/dL High 74 - 99 [facility] Comment on above: Performed By: #### G SUSAN ####[id number] [place] [address] Glucose [Mass/Vol] 96 mg/dL Normal 74 - 99 [facility] Comment on above: Performed By: #### G SUSAN ####[id number] [place] [address] Laboratory - Chemistry and C hemistry - challengeon 11-15-2022 Glucose [Mass/Vol] 257 mg/dL above high threshold 74 - 99 [facility]aryn [facility]ology-[place] 437730 Work Phone: [phone] Glucose [Mass/Vol] 121 mg/dL above high threshold 74 - 99 [facility]-Otolaryn gology-[facility] 4100 Work Phone: [phone] Glucose [Mass/Vol] 96 mg/dL 74 - 99 [facility]-W[facility]low laryn gology-[place] 437730 Work Phone: [phone] Laboratory - Hematology and Cell countson 11-15-2022 Erythrocyte distribution width (RBC) [Ratio] 14.6 % above high threshold See Below MG-Otolaryn gology-[place] [address] Work Phone: [phone] Comment on above: Reference Range: 11. 5 - 14.5 Hematocrit (Bld) [Volume fraction] 38.3 % below low threshold See Below [facility] [address] Work Phone: [phone] Comment on above: Reference Range: 41. 0 - 52.0 Hemoglobin (Bld) [Mass/Vol] 12.7 g/dL below low threshold See Below [facility]-Otolaryn [facility]-[place] [address] Work Phone: Comment on above: Reference Range: 13. 5 - 17.5 MCHC (RBC) [Mass/Vol] 33.2 g/dL See Below MG- Otolaryn gology-[place] [address] Work Phone: Comment on above: Reference Range: 32. 0 - 36.0 MCV (RBC) [Entitic vol] 94 fL 80 - 100 [facility]aryn [facility]-[place] [address] Work Phone: [phone] Platelets (Bld) [#/Vol] 244 10*3/uL 150 - 450 [facility] 4100 Work Phone: RBC (Bld) [#/Vol] 4.06 {x10E12/L} below low threshold See Below [facility] 4100 Work Phone: Comment on above: Reference Range: 4.5 0 - 5.90 WBC (Bld) [#/Vol] 8.2 10*3/uL 4.4 - 11.3 [facility] larlisbet [facility] 4100 Work Phone: MAGNESIUMon 11-15-2022 Magnesium [Mass/Vol] 2.31 mg/dL Normal 1.60 - 2.40 [facility] Comment on above: Performed By: #### M G ####[id number] [place] [address] Magnesium, Serumon 3 Magnesium [Mass/Vol] 2.31 mg/dL See Below MG-O ariannan [facility] 4100 Work Phone: Comment on above: Reference Range: 1.6 0 - 2.40 No Panel Informationon 11-15 0.0 {/100_WBC} 0.0-0.0 [facility] n [facility] 4100 Work Phone: RENAL FUNCTION PANELon 11-15 Albumin [Mass/Vol] 3.2 g/dL Low 3.4 - 5.0 [facility] Comment on above: Performed By: #### R ENAL ####[id number] [place] [address] Anion gap [Moles/Vol] 13 mmol/L Normal 10 - 20 [facility] Comment on above: Performed By: #### R ENAL ####[id number] [place] [address] Calcium [Mass/Vol] 8.3 mg/dL Low 8.6 - 10.6 [facility] Comment on above: Performed By: #### R ENAL ####[id number] [place] [address] Chloride [Moles/Vol] 106 mmol/L Normal 98 - 107 [facility] Comment on above: Performed By: #### R ENAL ####[id number] [place] [address] Creatinine [Mass/Vol] 1.26 mg/dL Normal 0.50 - 1.30 [facility] Comment on above: Performed By: #### R ENAL ####[id number] [place] [address] GFR/1.73 sq M.predicted among non-blacks MDRD (S/P/Bld) [Vol rate/Area] 61 mL/min/{1.73_m2} Normal >90 [facility] Comment on above: Result Comment: CALC ULATIONS OF ESTIMATED GFR ARE PERFORMED USING THE 2020 CKD-EPI STUDY REFIT EQUATION WITHOUT THE RACE VARIABLE FOR THE IDMS-TRACEABLE CREATININE METHODS.https://jasn.asnjournals.org/content/early//A SN.3988176494 Performed By: #### R ENAL ####[id number] [place] [address] Glucose [Mass/Vol] 128 mg/dL High 74 - 99 [facility] Comment on above: Performed By: #### R ENAL ####[id number] [place] [address] HCO3 (Bld) [Moles/Vol] 24 mmol/L Normal 21 - 32 [facility] Comment on above: Performed By: #### R ENAL ####[id number] [place] [address] Phosphate [Mass/Vol] 2.7 mg/dL Normal 2.5 - 4.9 [facility] Comment on above: Result Comment: The performance characteristics of phosphorus testing in heparinized plasma have been validated by the individual laboratory site where testing is performed. Testing on heparinized plasma is not approved by the FDA; however, such approval is not necessary. Performed By: #### R ENAL ####[id number] [place] [address] Potassium [Moles/Vol] 4.1 mmol/L Normal 3.5 - 5.3 [facility] Comment on above: Performed By: #### R ENAL ####[id number] [place] [address] Sodium [Moles/Vol] 139 mmol/L Normal 136 - 145 [facility] Comment on above: Performed By: #### R ENAL ####[id number] [place] [address] Urea nitrogen [Mass/Vol] 24 mg/dL High 6 - 23 [facility] Comment on above: Performed By: #### R ENAL ####[id number] [place] [address] Renal Function Panelon 11-15 Albumin BCP dye [Mass/Vol] 3.2 g/dL below low threshold 3.4 - 5.0 MG-Otolaryn gology-[place] [id number] Work Phone: [phone] Anion gap [Moles/Vol] 13 mmol/L 10 - 20 MG- Otolaryn gology-[facility] 4100 Work Phone: [phone] Calcium [Mass/Vol] 8.3 mg/dL below low threshold 8.6 - 10.6 MG-Otolaryn gology-[facility] 4100 Work Phone: [phone] Chloride [Moles/Vol] 106 mmol/L 98 - 107 MG-O tolaryn gology-[facility] 4100 Work Phone: [phone] CO2 [Moles/Vol] 24 mmol/L 21 - 32 MG-Otolar yn gology-[facility] 4100 Work Phone: [phone] Creatinine [Mass/Vol] 1.26 mg/dL See Below MG- Otolaryn gology-[facility] 4100 Work Phone: [phone] Comment on above: Reference Range: 0.5 0 - 1.30 Glucose [Mass/Vol] 128 mg/dL above high threshold 74 - 99 MG-Otolaryn gology-[facility] 4100 Work Phone: Phosphate [Mass/Vol] 2.7 mg/dL 2.5 - 4.9 [facility]aryn [facility] 4100 Work Phone: Comment on above: The performance violet acteristics of phosphorus testing in heparinized plasma have been validated by the individual laboratory site where testing is performed. Testing on heparinized plasma is not approved by the FDA; however, such approval is not necessary. Potassium [Moles/Vol] 4.1 mmol/L 3.5 - 5.3 [facility] 4100 Work Phone: Sodium [Moles/Vol] 139 mmol/L 136 - 145 MG-Winslow laryn [facility] 4100 Work Phone: Urea nitrogen [Mass/Vol] 24 mg/dL above high threshold 6 - 23 [facility]aryn [facility] 4100 Work Phone: Renal Function Panel 61 {mL/min/1.73m2} >90 [facility]aryn [facility] 4100 Work Phone: Comment on above: CALCULATIONS OF REYNALDO MATED GFR ARE PERFORMED USING THE 2020 CKD-EPI STUDY REFIT EQUATION WITHOUT THE RACE VARIABLE FOR THE IDMS-TRACEABLE CREATININE METHODS.https://jasn.asnjournals.org/content/early//A SN.3954275369 CBCon 11-14-2022 HCT Canceled Normal [facility] Comment on above: Order Comment: TEST CBC WAS CANCELLED, 11/14/2022 09:56 NO SPECIMEN RECEIVED IN LAB. Performed By: #### C BC ####[id number] [place] [address] HGB Canceled Normal [facility] Comment on above: Order Comment: TEST CBC WAS CANCELLED, 11/14/2022 09:56 NO SPECIMEN RECEIVED IN LAB. Performed By: #### C BC ####[id number] [place] [address] MCHC Canceled Normal [facility] Comment on above: Order Comment: TEST CBC WAS CANCELLED, 11/14/2022 09:56 NO SPECIMEN RECEIVED IN LAB. Performed By: #### C BC ####[id number] [place] [address] MCV Canceled Normal [facility] Comment on above: Order Comment: TEST CBC WAS CANCELLED, 11/14/2022 09:56 NO SPECIMEN RECEIVED IN LAB. Performed By: #### C BC ####[id number] [place] [address] NUCLEATED RBC Canceled Normal [facility] Comment on above: Order Comment: TEST CBC WAS CANCELLED, 11/14/2022 09:56 NO SPECIMEN RECEIVED IN LAB. Performed By: #### C BC ####[id number] [place] [address] PLT Canceled Normal [facility] Comment on above: Order Comment: TEST CBC WAS CANCELLED, 11/14/2022 09:56 NO SPECIMEN RECEIVED IN LAB. Performed By: #### C BC ####[id number] [place] [address] RBC Canceled Normal [facility] Comment on above: Order Comment: TEST CBC WAS CANCELLED, 11/14/2022 09:56 NO SPECIMEN RECEIVED IN LAB. Performed By: #### C BC ####[id number] [place] [address] RDW-CV Canceled Normal [facility] Comment on above: Order Comment: TEST CBC WAS CANCELLED, 11/14/2022 09:56 NO SPECIMEN RECEIVED IN LAB. Performed By: #### C BC ####[id number] [place] [address] WBC Canceled Normal [facility] Comment on above: Order Comment: TEST CBC WAS CANCELLED, 11/14/2022 09:56 NO SPECIMEN RECEIVED IN LAB. Performed By: #### C BC ####[id number] [place] [address] Erythrocyte distribution width (RBC) [Ratio] 14.6 % High 11.5 - 14.5 [facility] Comment on above: Performed By: #### C BC ####[id number] [place] [address] Hematocrit (Bld) [Volume fraction] 43.0 % Normal 41.0 - 52.0 [facility] Comment on above: Performed By: #### C BC ####[id number] [place] [address] Hemoglobin (Bld) [Mass/Vol] 13.7 g/dL Normal 13.5 - 17.5 [facility] Comment on above: Performed By: #### C BC ####[id number] [place] [address] MCHC (RBC) [Mass/Vol] 31.9 g/dL Low 32.0 - 36.0 [facility] Comment on above: Performed By: #### C BC ####[id number] [place] [address] MCV (RBC) [Entitic vol] 97 fL Normal 80 - 100 [facility] Comment on above: Performed By: #### C BC ####[id number] [place] [address] NUCLEATED RBC 0.0 /100 WBC Normal 0.0-0.0 [facility] Comment on above: Performed By: #### C BC ####[id number] [place] [address] Platelets (Bld) [#/Vol] 300 10*3/uL Normal 150 - 450 [facility] Comment on above: Performed By: #### C BC ####[id number] [place] [address] RBC 4.43 x10E12/L Low 4.50 - 5.90 [facility] Comment on above: Performed By: #### C BC ####[id number] [place] [address] WBC (Bld) [#/Vol] 12.6 10*3/uL High 4.4 - 11.3 [facility] Comment on above: Performed By: #### C BC ####[id number] [place] [address] COAGULATION SCREENon 023 aPTT Coag (Bld) [Time] 29 s Normal 26 - 39 [facility] Comment on above: Result Comment: THE APTT IS NO LONGER USED FOR MONITORING UNFRACTIONATED HEPARIN THERAPY. FOR MONITORING HEPARIN THERAPY, USE THE HEPARIN ASSAY. Performed By: #### C OAGS ####[id number] [place] [address] PT Coag (PPP) [Time] 12.8 s Normal 9.8 - 13.4 [facility] Comment on above: Performed By: #### C OAGS ####[id number] [place] [address] PT, INR 1.1 Normal 0.9 - 1.1 [facility] Comment on above: Performed By: #### C OAGS ####[id number] [place] [address] Daily Progress Note-ENTon Daily Progress Note-ENT Normal [facility] Daily Progress Note-Infectio us Diseaseon 11-14-2022 Daily Progress Note-Infectious Disease Normal [facility] Daily Progress Note-Vascular Medicineon 11-14-2022 Daily Progress Note-Vascular Medicine Normal [facility] GLUCOSE-POCTon 11-14-2022 Glucose [Mass/Vol] 198 mg/dL High 74 - 99 [facility] Comment on above: Performed By: #### G SUSAN ####[id number] [place] [address] Glucose [Mass/Vol] 134 mg/dL High 74 - 99 [facility] Comment on above: Performed By: #### G SUSAN ####[id number] [place] [address] Glucose [Mass/Vol] 140 mg/dL High 74 - 99 [facility] Comment on above: Performed By: #### G SUSAN ####[id number] [place] [address] Glucose [Mass/Vol] 127 mg/dL High 74 - 99 [facility] Comment on above: Performed By: #### G SUSAN ####[id number] [address] [address] INSERTION OF GASTROSTOMY TUB E PERCUTANEOUS UNDER FLUOROSCOPICon 11-14-2022 INSERTION OF GASTROSTOMY TUBE PERCUTANEOUS UNDER FLUOROSCOPIC Normal [facility] Insertion of Gastrostomy Tub e Percutaneous Under Fluoroscopicon 11-14-2022 RF Guidance for placement of tube in Stomach Normal MG-Otolaryn gology-[place] [address] Work Phone: Laboratory - Chemistry and C hemistry - challengeon 11-14-2022 Glucose [Mass/Vol] 198 mg/dL above high threshold 74 - 99 MG-Otolaryn gology-[place] [address] Work Phone: Glucose [Mass/Vol] 134 mg/dL above high threshold 74 - 99 MG-Otolaryn gology-[place] [id number] Work Phone: Glucose [Mass/Vol] 140 mg/dL above high threshold 74 - 99 MG-Otolaryn gology-[facility]ag [facility] 4100 Work Phone: Glucose [Mass/Vol] 127 mg/dL above high threshold 74 - 99 MG-Otolaryn gology-[facility] 4100 Work Phone: Laboratory - Coagulationon 0 11-14-2022 aPTT Coag (PPP) [Time] 29 s 26 - 39 MG -Otolaryn gology-[facility] 4100 Work Phone: Comment on above: THE APTT IS NO LONGE R USED FOR MONITORING UNFRACTIONATED HEPARIN THERAPY. FOR MONITORING HEPARIN THERAPY, USE THE HEPARIN ASSAY. INR Coag (PPP) [Relative time] 1.1 {INR} 0.9 - 1.1 MG-Otolaryn gology-[place] [address] Work Phone: PT Coag (PPP) [Time] 12.8 s 9.8 - 13.4 Gilberto william [place] [address] Work Phone: Laboratory - Hematology and Cell countson 11-14-2022 Erythrocyte distribution width (RBC) [Ratio] 14.6 % above high threshold See Below [facility] [place] [address] Work Phone: Comment on above: Reference Range: 11. 5 - 14.5 Hematocrit (Bld) [Volume fraction] 43.0 % See Below [facility] [place] [address] Work Phone: Comment on above: Reference Range: 41. 0 - 52.0 Hemoglobin (Bld) [Mass/Vol] 13.7 g/dL See Below [facility] [place] [address] Work Phone: Comment on above: Reference Range: 13. 5 - 17.5 MCHC (RBC) [Mass/Vol] 31.9 g/dL below low threshold See Below [facility] [place] [address] Work Phone: Comment on above: Reference Range: 32. 0 - 36.0 MCV (RBC) [Entitic vol] 97 fL 80 - 100 [place] [address] Work Phone: [phone] Platelets (Bld) [#/Vol] 300 10*3/uL 150 - 450 [facility] [place] [address] Work Phone: [phone] RBC (Bld) [#/Vol] 4.43 {x10E12/L} below low threshold See Below [facility] [place] [address] Work Phone: Comment on above: Reference Range: 4.5 0 - 5.90 WBC (Bld) [#/Vol] 12.6 10*3/uL above high threshold 4.4 - 11.3 [facility] [place] [address] Work Phone: MAGNESIUMon 11-14-2022 Magnesium [Mass/Vol] 2.56 mg/dL High 1.60 - 2.40 [facility] Comment on above: Performed By: #### M G ####[id number] [place] [address] Magnesium, Serumon 3 Magnesium [Mass/Vol] 2.56 mg/dL above high threshold See Below [facility] 4[facility] Work Phone: Comment on above: Reference Range: 1.6 0 - 2.40 No Panel Informationon 11-14 Please click on the link to view the study images Normal [facility] Work Phone: 0.0 {/100_WBC} 0.0-0.0 MG-Otolary n [facility] 4100 Work Phone: Nutrition Therapy-Noteon Nutrition Therapy-Note Normal [facility] OT Evaluation v2-attemptedon 11-14-2022 OT Evaluation v2-attempted Normal [facility] OT Evaluation v2-individual therapyon 11-14-2022 OT Evaluation v2-individual therapy Normal [facility] PT Evaluation v2-physical th erapyon 11-14-2022 PT Evaluation v2-physical therapy Normal [facility] RENAL FUNCTION PANELon 11-14 Albumin [Mass/Vol] 3.8 g/dL Normal 3.4 - 5.0 [facility] Comment on above: Performed By: #### R ENAL ####[id number] [place] [address] Anion gap [Moles/Vol] 16 mmol/L Normal 10 - 20 [facility] Comment on above: Performed By: #### R ENAL ####[id number] [place] [address] Calcium [Mass/Vol] 9.0 mg/dL Normal 8.6 - 10.6 [facility] Comment on above: Performed By: #### R ENAL ####[id number] [place] [address] Chloride [Moles/Vol] 105 mmol/L Normal 98 - 107 [facility] Comment on above: Performed By: #### R ENAL ####[id number] [place] [address] Creatinine [Mass/Vol] 1.65 mg/dL High 0.50 - 1.30 [facility] Comment on above: Performed By: #### R ENAL ####[id number] [place] [address] GFR/1.73 sq M.predicted among non-blacks MDRD (S/P/Bld) [Vol rate/Area] 44 mL/min/{1.73_m2} Abnormal >90 [facility] Comment on above: Result Comment: CALC ULATIONS OF ESTIMATED GFR ARE PERFORMED USING THE 2020 CKD-EPI STUDY REFIT EQUATION WITHOUT THE RACE VARIABLE FOR THE IDMS-TRACEABLE CREATININE METHODS.https://jasn.asnjournals.org/content/early//A SN.2449835681 Performed By: #### R ENAL ####[id number] [place] [address] Glucose [Mass/Vol] 110 mg/dL High 74 - 99 [facility] Comment on above: Performed By: #### R ENAL ####[id number] [place] [address] HCO3 (Bld) [Moles/Vol] 24 mmol/L Normal 21 - 32 [facility] Comment on above: Performed By: #### R ENAL ####[id number] [place] [address] Phosphate [Mass/Vol] 3.5 mg/dL Normal 2.5 - 4.9 [facility] Comment on above: Result Comment: The performance characteristics of phosphorus testing in heparinized plasma have been validated by the individual laboratory site where testing is performed. Testing on heparinized plasma is not approved by the FDA; however, such approval is not necessary. Performed By: #### R ENAL ####[id number] [place] [address] Potassium [Moles/Vol] 4.2 mmol/L Normal 3.5 - 5.3 [facility] Comment on above: Performed By: #### R ENAL ####[id number] [place] [address] Sodium [Moles/Vol] 141 mmol/L Normal 136 - 145 [facility] Comment on above: Performed By: #### R ENAL ####[id number] [place] [address] Urea nitrogen [Mass/Vol] 30 mg/dL High 6 - 23 [facility] Comment on above: Performed By: #### R ENAL ####[id number] [place] [address] Renal Function Panelon 11-14 Albumin BCP dye [Mass/Vol] 3.8 g/dL 3.4 - 5.0 MG-Otolaryn gology-[facility] 4100 Work Phone: [phone] Anion gap [Moles/Vol] 16 mmol/L 10 - 20 MG- Otolaryn gology-[facility] 4100 Work Phone: [phone] Calcium [Mass/Vol] 9.0 mg/dL 8.6 - 10.6 [facility] 4100 Work Phone: [phone] Chloride [Moles/Vol] 105 mmol/L 98 - 107 MG-O tolaryn gology-[facility] 4100 Work Phone: [phone] CO2 [Moles/Vol] 24 mmol/L 21 - 32 MG-Otolar yn gology-[facility] 4100 Work Phone: [phone] Creatinine [Mass/Vol] 1.65 mg/dL above high threshold See Below MG-Otolaryn gology-[facility] 4100 Work Phone: [phone] Comment on above: Reference Range: 0.5 0 - 1.30 Glucose [Mass/Vol] 110 mg/dL above high threshold 74 - 99 MG-Otolaryn gology-[facility] 4100 Work Phone: Phosphate [Mass/Vol] 3.5 mg/dL 2.5 - 4.9 MG-O [facility]laryn [facility] 4100 Work Phone: Comment on above: The performance violet acteristics of phosphorus testing in heparinized plasma have been validated by the individual laboratory site where testing is performed. Testing on heparinized plasma is not approved by the FDA; however, such approval is not necessary. Potassium [Moles/Vol] 4.2 mmol/L 3.5 - 5.3 [facility]- [facility]aryn [facility] 4100 Work Phone: Sodium [Moles/Vol] 141 mmol/L 136 - 145 MG-Winslow laryn [facility] 4100 Work Phone: Urea nitrogen [Mass/Vol] 30 mg/dL above high threshold 6 - 23 MG-[facility]tolaryn [facility] 4100 Work Phone: Renal Function Panel 44 {mL/min/1.73m2} Abnormal >90 [facility]aryn [facility] 4100 Work Phone: Comment on above: CALCULATIONS OF REYNALDO MATED GFR ARE PERFORMED USING THE 2020 CKD-EPI STUDY REFIT EQUATION WITHOUT THE RACE VARIABLE FOR THE IDMS-TRACEABLE CREATININE METHODS.https://jasn.asnjournals.org/content/early//A SN.3068703136 ABO/RH GROUP TESTon 11-14-19 23 ABO TYPE A Normal [facility] Comment on above: Performed By: #### V ERAB ####[id number] [place] [address] RH TYPE Positive Normal [facility] Comment on above: Performed By: #### V ERAB ####[id number] [place] [address] AFB CULTURE/SM, MISCon 11-13 AFB CULTURE/SM, MISC Normal [facility] Comment on above: Performed By: #### A FB ####[id number] [id number] AFB CULTURE/SM, MISC Normal [facility] Comment on above: Performed By: #### A FB ####[id number] [place] [address] Admission Risk Screen - Adul ton 11-13-2022 Admission Risk Screen - Adult Normal [facility] CORONAVIRUS 2019, SCREEN ASY MPTOMATICon 11-13-2022 SARS-CoV-2 (COVID-19) RNA JF+probe Ql (Unsp spec) Not detected Normal Not Detected [facility] Comment on above: Result Comment: .Thi s assay is designed to detect the ORF1a/b and E genes of SARS-CoV-2 vianucleic acid amplification. A Not Detected result does not [id number] infection since the adequacy of sample collection and/or low viralburden may result in presence of viral nucleic acids below the clinicalsensitivity of this test method.Fact sheet for providers: https://www.fda.gov/media/236060/downloadFact sheet for patients: https://www.fda.gov/media/987346/downloadThis test has received FDA Emergency Use Authorization (EUA) and has beenverified for use by [facility] ([facility]).This test is only authorized for the duration of time that circumstancesexist to justify the authorization of the emergency use of in vitrodiagnostic tests for the detection of SARS-CoV-2 virus and/or diagnosis ofCOVID-19 infection under section 564(b)(1) of the Act, 21 U.S.C.360bbb-3(b)(1), unless the authorization is terminated or revoked sooner.[facility] is certified under CLIA-88 asqualified to perform high complexity testing. Testing is performed in [facility] laboratories located at [address] [place] [address]. Performed By: #### C OVSC ####[id number] [place] [address] CT Sinus without Contraston 11-13-2022 CT Sinuses WO contrast Normal MG -Otolaryn gology-[facility] Work Phone: [phone] Clinical Note - Pharmacy v2- Medication Educationon 11-13-2022 Clinical Note - Pharmacy v2-Medication Education Normal [facility] Consult-Infectious Diseaseon 11-13-2022 Consult-Infectious Disease Normal [facility] Consult-Vascular Medicineon 11-13-2022 Consult-Vascular Medicine Normal [facility] Covid 19 Resultson 3 SARS-CoV-2 (COVID-19) RNA JF+probe Ql (Unsp spec) Normal [facility] Cult, AFB, Misc.+ smearon Mycobacterium sp identified Org specific cx Nom (Unsp spec) -[facility] 4100 Work Phone: [phone] Mycobacterium sp identified Org specific cx Nom (Unsp spec) MG-Otolaryn gology-[facility] 4100 Work Phone: [phone] Cult, Fungus +smearon 2022 Fungus identified Cx Nom (Unsp spec) Abnormal -[facility] 4100 Work Phone: [phone] Fungus identified Cx Nom (Unsp spec) Abnormal -[facility] 4100 Work Phone: [phone] Cult, Misc + smearon 11-13- 023 Bacteria identified Cx Nom (Unsp spec) [facility] 4100 Work Phone: [phone] Bacteria identified Cx Nom (Unsp spec) [facility] 4100 Work Phone: [phone] Discharge Planning [id number] 0 11-13-2022 Discharge Planning Note2 Normal [facility] FUNGAL CULTURE/SM, MISCon FUNGAL CULTURE/SM, MISC Normal [facility] Comment on above: Performed By: #### F UNCS ####[id number] [place] [address] FUNGAL CULTURE/SM, MISC Normal [facility] Comment on above: Performed By: #### F UNCS ####[id number] [place] [address] GLUCOSE-POCTon 11-13-2022 Glucose [Mass/Vol] 181 mg/dL High - 99 [facility] Comment on above: Performed By: #### G SUSAN ####[id number] [place] [address] Glucose [Mass/Vol] 160 mg/dL High 74 - 99 [facility] Comment on above: Performed By: #### G SUSAN ####[id number] [place] [address] Glucose [Mass/Vol] 209 mg/dL High - 99 [facility] Comment on above: Performed By: #### G SUSAN ####[id number] [place] [address] Glucose [Mass/Vol] 201 mg/dL High 74 - 99 [facility] Comment on above: Performed By: #### G SUSAN ####[id number] [place] [address] Glucose [Mass/Vol] 166 mg/dL High 74 - 99 [facility] Comment on above: Performed By: #### G SUSAN ####[id number] [place] [address] HEMOGLOBIN A1Con 11-13-2022 Glucose [Mass/Vol] 189 mg/dL Normal [facility] Comment on above: Performed By: #### H BA1E ####[id number] [place] [address] HbA1c (Bld) [Mass fraction] 8.2 % Abnormal [facility] Comment on above: Result Comment: Diag nosis of Diabetes-Adults Non-Diabetic: < or = 5.6% Increased risk for developing diabetes: 5.7-6.4% Diagnostic of diabetes: > or = 6.5%. Monitoring of Diabetes Age (y) Therapeutic Goal (%) Adults: >18 <7.0 Pediatrics: 13-18 <7.5 7-12 <8.0 0- 6 7.5-8.5 [employer]. Diabetes Care 33(S1), Aug 2009. Performed By: #### H BA1E ####[id number] [place] [address] Laboratory - Blood bankon ABO group Nom (Bld) A MG-Ot olaryn gology-[facility] Work Phone: [phone] Rh immune globulin screen (Bld) [Interp] Positive MG-Otolary n gology-[facility] Work Phone: [phone] Laboratory - Chemistry and C hemistry - challengeon 11-13-2022 Glucose [Mass/Vol] 181 mg/dL above high threshold 74 - 99 MG-Otolaryn gology-Ch[facility] 4100 Work Phone: Glucose [Mass/Vol] 160 mg/dL above high threshold 74 - 99 MG-Otolaryn gology-Chag [facility] 4100 Work Phone: [phone] Glucose [Mass/Vol] 209 mg/dL above high threshold 74 - 99 MG-Otolaryn gology-[facility] Work Phone: Glucose [Mass/Vol] 201 mg/dL above high threshold 74 - 99 MG-Otolaryn gology-[facility] Work Phone: Glucose [Mass/Vol] 166 mg/dL above high threshold 74 - 99 MG-Otolaryn gology-[facility] Work Phone: [phone] MISCELLANEOUS CULT./SM.BACT. on 11-13-2022 MISCELLANEOUS CULT./SM.BACT. Normal [facility] Comment on above: Performed By: #### M [facility] ####[id number] [place] [address] MISCELLANEOUS CULT./SM.BACT. Normal [facility] Comment on above: Performed By: #### M [facility] ####[id number] [address] SINUS WO CONTRASTon NR CT SINUS WO CONTRAST Normal [facility] Nutrition Therapy-Assessment on 11-13-2022 Nutrition Therapy-Assessment Normal [facility] Order Reconciliationon 11-13 Order Reconciliation Normal [facility] Patient Profile - Adult v2on 11-13-2022 Patient Profile - Adult v2 Normal [facility] Patient Profile - Preop v3on 11-13-2022 Patient Profile - Preop v3 Normal [facility] Radiologyon 11-13-2022 XR Abdomen AP Please click on the link to view the study images Normal MG-Otolaryn gology-[facility] Work Phone: [facility] Surgical Pathology Depar tmenton 11-13-2022 [facility] Surgical Pathology Department Normal [facility] Comment on above: Performed By: #### U HCS ####[facility] Surgical Pathology [id number] [facility] [address] BASIC METABOLIC PANELon 10-16 Anion gap [Moles/Vol] 19 mmol/L Normal 10 - 20 [facility] Comment on above: Performed By: #### B MP ####[id number] [place] [address] Calcium [Mass/Vol] 10.1 mg/dL Normal 8.6 - 10.6 [facility] Comment on above: Performed By: #### B MP ####[id number] [place] [address] Chloride [Moles/Vol] 99 mmol/L Normal 98 - 107 [facility] Comment on above: Performed By: #### B MP ####[id number] [place] [address] Creatinine [Mass/Vol] 1.60 mg/dL High 0.50 - 1.30 [facility] Comment on above: Performed By: #### B MP ####[id number] [place] [address] GFR/1.73 sq M.predicted among non-blacks MDRD (S/P/Bld) [Vol rate/Area] 46 mL/min/{1.73_m2} Abnormal >90 [facility] Comment on above: Result Comment: CALC ULATIONS OF ESTIMATED GFR ARE PERFORMED USING THE 2020 CKD-EPI STUDY REFIT EQUATION WITHOUT THE RACE VARIABLE FOR THE IDMS-TRACEABLE CREATININE METHODS.https://jasn.asnjournals.org/content//A SN.3261236600 Performed By: #### B MP ####[id number] [place] [address] Glucose [Mass/Vol] 215 mg/dL High 74 - 99 [facility] Comment on above: Performed By: #### B MP ####[id number] [place] [address] HCO3 (Bld) [Moles/Vol] 25 mmol/L Normal 21 - 32 [facility] Comment on above: Performed By: #### B MP ####[id number] [place] [address] Potassium [Moles/Vol] 4.5 mmol/L Normal 3.5 - 5.3 [facility] Comment on above: Performed By: #### B MP ####[id number] [place] [address] Sodium [Moles/Vol] 138 mmol/L Normal 136 - 145 [facility] Comment on above: Performed By: #### B MP ####[id number] [place] [address] Urea nitrogen [Mass/Vol] 28 mg/dL High 6 - 23 [facility] Comment on above: Performed By: #### B MP ####[id number] [place] [address] CBCon 11-12-2022 Erythrocyte distribution width (RBC) [Ratio] 14.6 % High 11.5 - 14.5 [facility] Comment on above: Performed By: #### C BC ####[id number] [place] [address] Hematocrit (Bld) [Volume fraction] 48.2 % Normal 41.0 - 52.0 [facility] Comment on above: Performed By: #### C BC ####[id number] [place] [address] Hemoglobin (Bld) [Mass/Vol] 15.6 g/dL Normal 13.5 - 17.5 [facility] Comment on above: Performed By: #### C BC ####[id number] [place] [address] MCHC (RBC) [Mass/Vol] 32.4 g/dL Normal 32.0 - 36.0 [facility] Comment on above: Performed By: #### C BC ####[id number] [place] [address] MCV (RBC) [Entitic vol] 96 fL Normal 80 - 100 [facility] Comment on above: Performed By: #### C BC ####[id number] [place] [address] NUCLEATED RBC 0.0 /100 WBC Normal 0.0-0.0 [facility] Comment on above: Performed By: #### C BC ####[id number] [place] [address] Platelets (Bld) [#/Vol] 308 10*3/uL Normal 150 - 450 [facility] Comment on above: Performed By: #### C BC ####[id number] [place] [address] RBC 5.03 x10E12/L Normal 4.50 - 5.90 [facility] Comment on above: Performed By: #### C BC ####[id number] [place] [address] WBC (Bld) [#/Vol] 7.9 10*3/uL Normal 4.4 - 11.3 [facility] Comment on above: Performed By: #### C BC ####[id number] [place] [address] COAGULATION SCREENon 023 aPTT Coag (Bld) [Time] 36 s Normal 26 - 39 [facility] Comment on above: Result Comment: THE APTT IS NO LONGER USED FOR MONITORING UNFRACTIONATED HEPARIN THERAPY. FOR MONITORING HEPARIN THERAPY, USE THE HEPARIN ASSAY. Performed By: #### C OAGS ####[id number] [place] [address] PT Coag (PPP) [Time] 15.2 s High 9.8 - 13.4 [facility] Comment on above: Performed By: #### C OAGS ####[id number] [place] [address] PT, INR 1.3 High 0.9 - 1.1 [facility] Comment on above: Performed By: #### C OAGS ####[id number] [place] [address] CORONAVIRUS 2019, SCREEN ASY MPTOMATICon 11-12-2022 Lab Specimen Source Nasal, Nasopharyngeal Normal [facility] Comment on above: Performed By: #### C OVSC ####[id number] [place] [address] Coronavirus 2019 RNA by PCR, Screening Asymptomticon [...] this test method. Fact sheet for providers: https://www.fda.gov/media/795708/download Fact sheet for patients: https://www.fda.gov/media/110262/download This test has received FDA Emergency Use Authorization (EUA) and has been verified for use by [facility] ([facility]). This test is only authorized for the duration of time that circumstances exist to justify the authorization of the emergency use of in vitro diagnostic tests for the detection of SARS-CoV-2 virus and/or diagnosis of COVID-19 infection under section 564(b)(1) of the Act, 21 U.S.C. 360bbb-3(b)(1), unless the authorization is terminated or revoked sooner.[facility] is certified under CLIA-88 as qualified to perform high complexity testing. Testing is performed in the [facility] laboratories located at [address] [place] [address]. Electrocardiogram 12 Leadon 11-12-2022 Electrocardiogram 12 Lead Normal [facility] Established Visit (Otolaryng ology)on 11-12-2022 Established Visit [...] Chief Complaint follow up History of Present Ghkzulz83 yo man who presents for evaluation of [...] TABS Vitals Vital Signs Recorded: 12Nov2022 01:11PM Wmqtvesezuj09.2 F Height6 ft 1 in Bkaffr279 lb BMI Rovfycarzy57.81 kg/m2 BSA Calculated2.48 Tobacco Useb) No PHQ-2 [...] Hemoglobin A1Con 11-12-2022 Glucose [Mass/Vol] 189 mg/dL MG-Winslow mag sandra Work Phone: HbA1c (Bld) [Mass fraction] 8.2 % Abnormal -Margoth sandra Work Phone: Comment on above: Diagnosis of Diabete s-Adults Non-Diabetic: < or = 5.6% Increased risk for developing diabetes: 5.7-6.4% Diagnostic of diabetes: > or = 6.5%. Monitoring of Diabetes Age (y) Therapeutic Goal (%) Adults: >18 <7.0 Pediatrics: 13-18 <7.5 7-12 <8.0 0- 6 7.5-8.5 [employer]. Diabetes Care 33(S1), Aug 2009. Laboratory - Blood bankon ABO group Nom (Bld) A MG-Me dicine [facility] 3100 Work Phone: Blood group antibody screen Ql Negative [facility] [place] [id number] Work Phone: Rh immune globulin screen (Bld) [Interp] Positive MG-Medicin e [facility] 3100 Work Phone: Laboratory - Chemistry and C hemistry - challengeon 11-12-2022 Anion gap [Moles/Vol] 19 mmol/L 10 - 20 MG- Medicine [facility] [facility] Work Phone: Calcium [Mass/Vol] 10.1 mg/dL 8.6 - 10.6 MG-Med icine [facility] Work Phone: Chloride [Moles/Vol] 99 mmol/L 98 - 107 MG-M edicine [facility] Work Phone: CO2 [Moles/Vol] 25 mmol/L 21 - 32 MG-Medici ne [facility] Work Phone: Creatinine [Mass/Vol] 1.60 mg/dL above high threshold See Below [place] [address] Work Phone: Comment on above: Reference Range: 0.5 0 - 1.30 Glucose [Mass/Vol] 215 mg/dL above high threshold 74 - 99 [place] [address] Work Phone: Potassium [Moles/Vol] 4.5 mmol/L 3.5 - 5.3 [place] [address] Work Phone: Sodium [Moles/Vol] 138 mmol/L 136 - 145 [place] [address] Work Phone: Urea nitrogen [Mass/Vol] 28 mg/dL above high threshold 6 - 23 [place] [address] Work Phone: Laboratory - Coagulationon 0 11-12-2022 aPTT Coag (PPP) [Time] 36 s 26 - 39 [place] [address] Work Phone: Comment on above: THE APTT IS NO LONGE R USED FOR MONITORING UNFRACTIONATED HEPARIN THERAPY. FOR MONITORING HEPARIN THERAPY, USE THE HEPARIN ASSAY. INR Coag (PPP) [Relative time] 1.3 {INR} above high threshold 0.9 - 1.1 [place] [address] Work Phone: PT Coag (PPP) [Time] 15.2 s above high threshold 9.8 - 13.4 [place] [address] Work Phone: Laboratory - Hematology and Cell countson 11-12-2022 Erythrocyte distribution width (RBC) [Ratio] 14.6 % above high threshold See Below [place] [address] Work Phone: Comment on above: Reference Range: 11. 5 - 14.5 Hematocrit (Bld) [Volume fraction] 48.2 % See Below [place] [address] Work Phone: Comment on above: Reference Range: 41. 0 - 52.0 Hemoglobin (Bld) [Mass/Vol] 15.6 g/dL See Below [place] [address] Work Phone: Comment on above: Reference Range: 13. 5 - 17.5 MCHC (RBC) [Mass/Vol] 32.4 g/dL See Below [place] [address] Work Phone: Comment on above: Reference Range: 32. 0 - 36.0 MCV (RBC) [Entitic vol] 96 fL 80 - 100 [place] [address] Work Phone: Platelets (Bld) [#/Vol] 308 10*3/uL 150 - 450 [place] [address] Work Phone: RBC (Bld) [#/Vol] 5.03 {x10E12/L} See Below [place] [address] Work Phone: Comment on above: Reference Range: 4.5 0 - 5.90 WBC (Bld) [#/Vol] 7.9 10*3/uL 4.4 - 11.3 [place] [address] Work Phone: MRSA Screenon 11-12-2022 Staphylococcus sp identified Org specific cx Nom (Unsp spec) -Otolaryn gology-Levi man Work Phone: [phone] No Panel Informationon 11-12 46 {mL/min/1.73m2} Abnormal >90 [place] [address] Work Phone: Comment on above: CALCULATIONS OF REYNALDO MATED GFR ARE PERFORMED USING THE 2020 CKD-EPI STUDY REFIT EQUATION WITHOUT THE RACE VARIABLE FOR THE IDMS-TRACEABLE CREATININE METHODS.https://jasn.asnjournals.org/content//A SN.2571744105 0.0 {/100_WBC} 0.0-0.0 MG-Medicin e -[facility] [place] [address] Work Phone: [phone] [email or web address]?RetrieveTestByDateTime ?HusgldwTE=[id number]&Date =12-11-2022&Time=08%3a17% 3a11%3a00&TestType=ECG&Si te=1&OutputType=PDF&Ext=P DF MG-Otolaryn gology-Levi man [...] To reach Dr. Burrows's office please call [phone]. . Call [phone] to schedule an appointment. You may also contact the RNs at [email or web address] (Please include your name and date of ) For MEDICATION REFILLS, please call [phone] option 6 then option 1. Chief Complaint BRENDON DAVID is being seen for a cardiovascular evaluation . For surgical clearance. History of Present Illness He is here for surgical clearance for ENT surgery. He denies fatigue, chest pain, palpitations, shortness of breath, dyspnea on exertion, orthopnea, PND, frequent headaches, dizziness, falls. No edema noted in BLE. EKG was completed today at [facility]. PMHx: HTN, GERD, DVT Active Problems Problems [...] HPI. Vitals Vital Signs Recorded: 12Nov2022 10:41AM Wrahoxyqrps43.7 F Heart Rate64 Llmoysgd869, RUE, Sitting Olcfastju47, RUE, Sitting Blood Pressure Cuff SizeLarge Height6 ft 1 in Hfypyj442 lb 4 oz BMI Xijpkhlmeb76.84 kg/m2 BSA Calculated2.48 Tobacco Useb) No Falls Screening (Age 18+)a) No falls within the last year O2 Wdzlwwmqjc03 Physical Exam No JVD No LE edema Well appearing Obese Impressions 72WM, from 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 He is here for pre-operative risk [...] risk of 30-day reggie-operative risk of / NH / cardiac arrest. The fact that he [...] Transplantation Division of Cardiovascular Medicine Department of [facility] Signatures Electronically signed by : Heather Burrows MD; Nov 12 2022 11:22AM EST (Author) Normal Touchworks STAPH/MRSA SCREENon 11-13-19 23 STAPH/MRSA SCREEN Normal [facility] Comment on above: Performed By: #### S TAPH ####[id number] [place] [address] TYPE + SCREENon 11-12-2022 ABO TYPE A Normal [facility] Comment on above: Performed By: #### T +S ####[id number] [place] [address] RH TYPE Positive Normal [facility] Comment on above: Performed By: #### T +S ####[id number] [place] [address] Tobacco Screening.on 023 Adult depression screening assessment No [facility] [address] Work Phone: Fall risk assessment a) No falls within the last year [facility] [address] Work Phone: Tobacco use status CPHS b) No MG-Medicine [facility] [address] Work Phone: Fall risk assessment a) No falls within the last year MG-Medicine [facility] [address] Work Phone: Tobacco use status CPHS b) No MG-Medicine [facility] [address] Work Phone: Tobacco Screening. Large MG-Med icine [facility] [address] Work Phone: Basophil percentageOrdered B y: Dr. Jasso on 11-06-2022 Creatinine [Mass/Vol] 1.1 mg/dL 0.70-1.30 [facility] No Panel InformationOrdered By: Dr. Jasso on 11-06-2022 Bedside Estimated GFR (eGFR) > 60.0000 mL/min >60 [facility] Cult, Misc + smearon 023 [...] - Specimen/Data Collection,Retrospective By Protocol Authorization; Requested for:[id number]; Site : Wound/Abscess MRI Face w/wo Contrast; Status:Hold For - Scheduling,Retrospective By Protocol Authorization; Requested for:30Oct2022; Radiologist to Determine Optimal Study : Y Does the patient have a Cochlear Implant, Pacemaker, Defibrilator, Pacing Wire, Brain Aneurysm Clip, Implanted Nerve or Bone Graft Simulator, Implanted Breast Tissue Flight Data Technician, Glucose Monitor, or Neulasta Device? 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 Welcome to Dr. Uriah Amador?s clinic. We are here to assist you with your ENT needs at [facility] [place]. Dr. Amador is an ENT that specializes in facial plastic and reconstructive surgery procedures. Dr. Uriah Amador?s office number is [phone] Please call this number to contact his care team regardless of which office you use to access care. This number is the most direct way to communicate with all the members of the care team. Mally Flowers is Dr. Amador's emergency room physician and you can reach her at [phone]. She can help you with scheduling of appointments, general questions and information. She is available to receive calls Thursday through Thursday from 8:00 am until 4:25 pm. For your convenience, Dr. Amador sees patients at [facility], [facility] at [facility], [facility], and [facility].. While we try to make your appointments [...] MISCELLANEOUS CULT./SM.BACT. on 10-30-2022 MISCELLANEOUS CULT./SM.BACT. Normal [facility] Comment on above: Performed By: #### M [facility] ####[id number] [place] [address] No Panel Informationon 10-30 [facility]olog[facility] [place] [facility] Work Phone: Tobacco Screening.on 023 Adult depression screening assessment No -Otolarlisbet [facility] Work Phone: Fall risk assessment a) No falls within the last year -Otolarlisbet [facility] [address] Work Phone: Tobacco use status CPHS b) No -Otolaryn [facility] [address] Work Phone: [facility] Surgical Pathology Depar tmenton 10-30-2022 [facility] Surgical Pathology Department Normal [facility] Comment on above: Performed By: #### U [facility] ####[facility] Surgical Pathology [id number] [place] [address] Basophil percentageon 2021 WBC (Bld) [#/Vol] 7.7 10*3/uL 4.4-11.0 [facility] Work Phone: Blood erythrocytes count (nu mber/volume)on 05-27-2022 RBC (Bld) [#/Vol] 4.87 10*6/uL 4.6-6.2 [facility] Work Phone: Blood hemoglobin measurement (mass/volume)on 05-27-2022 Hemoglobin (Bld) [Mass/Vol] 15.7 g/dL 13.0-16.5 [facility] Work Phone: Blood platelet mean volumeon 05-27-2022 Platelet mean volume (Bld) [Entitic vol] 9.4 fL 6.2-12.0 [facility] Work Phone: Determination of erythrocyte mean corpuscular volume (MCV)on 05-27-2022 MCV (RBC) [Entitic vol] 96.5 fL 80-94 [facility] Work Phone: Glucose Glucometer (BldC) [M ass/Vol]on 05-27-2022 Glucose [Mass/Vol] 216 mg/dL 74-106 [facility] Work Phone: Comment on above: MANAGEMENT OF PATIEN T CARE PER NURSING PROTOCOL Hematocrit Auto (Bld) [Volum e fraction]on 05-27-2022 Hematocrit (Bld) [Volume fraction] 47.0 % 40-54 [facility] Work Phone: Laboratory - Coagulationon 1 INR Coag (Bld) [Relative time] 1.1 {INR} [facility] Work Phone: Comment on above: Critical Value > 4.0 Laboratory - Hematology and Cell countson 05-27-2022 Erythrocyte distribution width (RBC) [Entitic vol] 51.4 fL 35.1-43.9 [facility] Work Phone: Erythrocyte distribution width (RBC) [Ratio] 14.4 % 11.6-14.6 [facility] Work Phone: MCH (RBC) [Entitic mass] 32.2 pg 27.0-32.0 [facility] Work Phone: MCHC Auto (RBC) [Mass/Vol]on 05-27-2022 MCHC (RBC) [Mass/Vol] 33.4 g/dL 32-36 [facility] Work Phone: Platelets bldon 05-27-2022 Platelets (Bld) [#/Vol] 305 10*3/uL 150-450 [facility] Work Phone: Whole blood prothrombin time on 05-27-2022 PT Coag (Bld) [Time] 14.2 s 11.7-14.9 [facility] Work Phone: Basophil percentageon 2021 Chloride [Moles/Vol] 103 mmol/L 98-107 [facility] Work Phone: Glucose [Mass/Vol] 138 mg/dL 74-106 [facility] Work Phone: Comment on above: Fasting Glucose resu lt greater than or equal to 126 mg/dL suggests DIABETES MELLITUS per A.D.A. criteria. Potassium [Moles/Vol] 4.2 mmol/L 3.5-5.1 [facility] Work Phone: Sodium [Moles/Vol] 138 mmol/L 136-145 [facility] Work Phone: Laboratory - Chemistry and C hemistry - challengeon 05-22-2022 CO2 [Moles/Vol] 26.0 mmol/L 21.0-32.0 [facility] Work Phone: Urea nitrogen/Creatinine [Mass ratio] 16.2 mg/mg 10-20 [facility] Work Phone: No Panel Informationon 05-22 Estimated GFR (MDRD) Amer 45 mL/min >60 [facility] Work Phone: Comment on above: GFR Calc Estimated GFR (MDRD) Non-Af Amer 37 mL/min >60 [facility] Work Phone: Comment on above: Non- GFR Calc Serum or plasma calcium lisa urement (mass/volume)on 05-22-2022 Calcium [Mass/Vol] 9.2 mg/dL 8.5-10.1 [facility] Work Phone: Serum or plasma creatinine m easurement (mass/volume)on 05-22-2022 Creatinine [Mass/Vol] 1.91 mg/dL 0.70-1.30 [facility] Work Phone: Comment on above: The validity of the calculated GFR & GFRAA in patients over 70 years has not been determined. Clinical correlation is essential. Serum or plasma urea nitroge n measurement (mass/volume)on 05-22-2022 Urea nitrogen [Mass/Vol] 31 mg/dL 7-18 [facility] Work Phone: Thin prep Papanicolaou smear with manual screeningon 05-22-2022 Thin prep Papanicolaou smear with manual screening 9 5-15 [facility] Work Phone: Absolute lymphocyte counton 12-20-2021 Lymphocytes Auto (Unsp spec) [#/Vol] 1.23 10*3/uL 0.83-4.51 [facility] Work Phone: Basophil percentageon 2021 Basophils/100 WBC (Bld) 0.5 % 0-1 [facility] Work Phone: Bilirubin [Mass/Vol] 0.50 mg/dL 0.20-1.00 [facility] Work Phone: Comment on above: For patients on eltr ombopag therapy, use of Dimension [place] TBIL is not recommended. Chloride [Moles/Vol] 100 mmol/L 98-107 [facility] Work Phone: Eosinophils/100 WBC (Bld) 2.0 % 0-5 [facility] Work Phone: Glucose [Mass/Vol] 121 mg/dL 74-106 [facility] Work Phone: Comment on above: Fasting Glucose resu lt from 100 to 125 mg/dL suggests IMPAIRED HOMEOSTASIS per A.D.A. criteria. Neutrophils (Bld) [#/Vol] 5.2 10*3/uL 2.0-7.7 [facility] Work Phone: Neutrophils/100 WBC (Bld) 70.7 % 47-70 [facility] Work Phone: Potassium [Moles/Vol] 4.3 mmol/L 3.5-5.1 [facility] Work Phone: Comment on above: Slight Hemolysis, Re sult may be falsely increased. Protein [Mass/Vol] 7.4 g/dL 6.4-8.2 [facility] Work Phone: Sodium [Moles/Vol] 136 mmol/L 136-145 [facility] Work Phone: WBC (Bld) [#/Vol] 7.4 10*3/uL 4.4-11.0 [facility] Work Phone: Blood erythrocytes count (nu mber/volume)on 12-20-2021 RBC (Bld) [#/Vol] 4.94 10*6/uL 4.6-6.2 [facility] Work Phone: Blood hemoglobin measurement (mass/volume)on 12-20-2021 Hemoglobin (Bld) [Mass/Vol] 15.7 g/dL 13.0-16.5 [facility] Work Phone: Blood lymphocytes/100 leukoc yteson 12-20-2021 Lymphocytes/100 WBC (Bld) 16.6 % 19-41 [facility] Work Phone: Blood monocytes/100 leukocyt eson 12-20-2021 Monocytes/100 WBC (Bld) 9.0 % 0-10 [facility] Work Phone: Blood platelet mean volumeon 12-20-2021 Platelet mean volume (Bld) [Entitic vol] 9.7 fL 6.2-12.0 [facility] Work Phone: Determination of erythrocyte mean corpuscular volume (MCV)on 12-20-2021 MCV (RBC) [Entitic vol] 95.5 fL 80-94 [facility] Work Phone: Hematocrit Auto (Bld) [Volum e fraction]on 12-20-2021 Hematocrit (Bld) [Volume fraction] 47.2 % 40-54 [facility] Work Phone: INR in Blood by Coagulation assayon 12-20-2021 INR Coag (Bld) [Relative time] 2.1 {INR} [facility] Work Phone: Laboratory - Chemistry and C hemistry - challengeon 12-20-2021 ALP [Catalytic activity/Vol] 53 U/L 45-117 [facility] Work Phone: ALT [Catalytic activity/Vol] 26 U/L 16-61 [facility] Work Phone: CO2 [Moles/Vol] 29.0 mmol/L 21.0-32.0 [facility] Work Phone: Globulin (S) [Mass/Vol] 4.0 g/dL 2.2-4.2 [facility] Work Phone: Urea nitrogen/Creatinine [Mass ratio] 18.3 mg/mg 10-20 [facility] Work Phone: Laboratory - Coagulationon 0 12-20-2021 PT Coag (PPP) [Time] 23.3 s 11.7-14.9 [facility] Work Phone: Laboratory - Hematology and Cell countson 12-20-2021 Erythrocyte distribution width (RBC) [Entitic vol] 51.8 fL 35.1-43.9 [facility] Work Phone: Erythrocyte distribution width (RBC) [Ratio] 14.7 % 11.6-14.6 [facility] Work Phone: Immature granulocytes/100 WBC (Bld) 1.200 % 0.0-0.9 [facility] Work Phone: Comment on above: IG% - Immature Granu locytes (promyelocytes, myelocytes and metamyelocytes) > 1% indicates that a LEFT SHIFT is Present. MCH (RBC) [Entitic mass] 31.8 pg 27.0-32.0 [facility] Work Phone: Nucleated RBC/100 WBC (Bld) [Ratio] 0 % 0-5 [facility] Work Phone: MCHC Auto (RBC) [Mass/Vol]on 12-20-2021 MCHC (RBC) [Mass/Vol] 33.3 g/dL 32-36 [facility] Work Phone: No Panel Informationon 12-20 Estimated GFR (MDRD) Amer 52 mL/min >60 [facility] Work Phone: Comment on above: GFR Calc Estimated GFR (MDRD) Non-Af Amer 43 mL/min >60 [facility] Work Phone: Comment on above: Non- GFR Calc Urine Microalbumin/Creatinin e Ratio 29.0 mg/g CRE <30 [facility] Work Phone: Platelets bldon 12-20-2021 Platelets (Bld) [#/Vol] 309 10*3/uL 150-450 [facility] Work Phone: Serum or plasma albumin lisa urement (mass/volume)on 12-20-2021 Albumin [Mass/Vol] 3.4 g/dL 3.2-5.0 [facility] Work Phone: Serum or plasma albumin/glob ulin mass ratioon 12-20-2021 Albumin/Globulin [Mass ratio] 0.8 {ratio} 0.9-2.4 [facility] Work Phone: Serum or plasma calcium lisa urement (mass/volume)on 12-20-2021 Calcium [Mass/Vol] 8.9 mg/dL 8.5-10.1 [facility] Work Phone: Serum or plasma creatinine m easurement (mass/volume)on 12-20-2021 Creatinine [Mass/Vol] 1.69 mg/dL 0.70-1.30 [facility] Work Phone: Comment on above: The validity of the calculated GFR & GFRAA in patients over 70 years has not been determined. Clinical correlation is essential. Serum or plasma urea nitroge n measurement (mass/volume)on 12-20-2021 Urea nitrogen [Mass/Vol] 31 mg/dL 7-18 [facility] Work Phone: Thin prep Papanicolaou smear with manual screeningon 12-20-2021 Thin prep Papanicolaou smear with manual screening 19 U/L 15-37 [facility] Work Phone: Comment on above: Slight Hemolysis, Re sult may be falsely increased. Thin prep Papanicolaou smear with manual screening 7 5-15 [facility] Work Phone: Thin prep Papanicolaou smear with manual screening 18.8 mg/L NO RANGE EST. [facility] Work Phone: Urine creatinine measurement (mass/volume)on 12-20-2021 Creatinine (U) [Mass/Vol] 64.90 mg/dL NO RANGE EST. [facility] Work Phone: Whole blood hemoglobin A1c/t otal hemoglobin ratio (mass fraction)on 12-20-2021 HbA1c (Bld) [Mass fraction] 7.8 % 3.8-5.6 [facility] Work Phone: Comment on above: Normal < 5.7 % Predi abetic 5.7 - 6.4 % Diabetic >or= 6.5 % Please note range changes. Basophil percentageon 2021 Creatinine [Mass/Vol] 1.1 mg/dL 0.70-1.30 [facility] Work Phone: No Panel Informationon 11-26 Bedside Estimated GFR (eGFR) > 60.0000 mL/min >60 [facility] Work Phone: Vital Signs Date Time Vital Sign Value Performing Clinician Facility 01-05-2025 08:02-0400 Body height 185.[address] Key Jasso MD Work Phone: [facility] 01-05-2025 08:02-0400 Body mass index (BMI) [Ratio] 36.3 kg/m2 Dr. Key Jasso MD Work Phone: [facility] 01-05-2025 08:02-0400 Body weight 124.[address] Key Jasso MD Work Phone: [facility] 10-03-2024 10:00-0500 Body height 185.4 cm Natividad Rodriguez MD Work Phone: [facility] 10-03-2024 10:00-0500 Body mass index (BMI) [Ratio] 35.62 kg/m2 Natividad Rodriguez MD Work Phone: [facility] 10-03-2024 10:00-0500 Body weight 122.47 kg Natividad Rodriguez MD Work Phone: [facility] 11-02-2023 09:38-0400 Body mass index (BMI) [Ratio] 39.84 kg/m2 Natividad Rodriguez MD Work Phone: [facility] 11-02-2023 09:38-0400 Body temperature 96.69 [degF] Natividad Rodriguez MD Work Phone: [facility] 11-02-2023 09:38-0400 Body weight 136.99 kg Natividad Rodriguez MD Work Phone: [facility] 07-06-2023 08:46-0500 Body height 185.4 cm Natividad Rodriguez MD Work Phone: [facility] 07-06-2023 08:46-0500 Body mass index (BMI) [Ratio] 36.84 kg/m2 Natividad Rodriguez MD Work Phone: [facility] 07-06-2023 08:46-0500 Body temperature 96.91 [degF] Natividad Rodriguez MD Work Phone: [facility] 07-06-2023 08:46-0500 Body weight 126.64 kg Natividad Rodriguez MD Work Phone: [facility] 05-04-2023 11:10-0400 Body height 185.42 cm Key Jasso Work Phone: [facility] Work Phone: 05-04-2023 11:10-0400 Body mass index (BMI) [Ratio] 35.62 kg/m2 Key Jasso Work Phone: [facility] Work Phone: 05-04-2023 11:10-0400 Body surface area Derived from formula 2.44 m2 Key Jasso Work [facility] Work Phone: 05-04-2023 11:10-0400 Body weight 122.47 kg Key Jasso Work Phone: [facility] 4[facility] Work Phone: 01-19-2023 08:50-0400 Body mass index (BMI) [Ratio] Medical Reason Not Done Key Jasso Work Phone: [facility]ology[facility] 4[facility] Work Phone: 01-05-2023 09:40-0400 Body height 185.42 cm Key Jasso Work Phone: [facility] 4100 Work Phone: 01-05-2023 09:40-0400 Body mass index (BMI) [Ratio] 33.46 kg/m2 Key Jasso Work Phone: [facility] 4[address] Work Phone: 01-05-2023 09:40-0400 Body surface area Derived from formula 2.38 m2 Key Jasso Work Phone: [facility] Work Phone: 01-05-2023 09:40-0400 Body temperature 96 [degF] Key Jasso Work Phone: [facility] 4100 Work Phone: 01-05-2023 09:40-0400 Body weight 115.03 kg Key Jasso Work Phone: [facility] 4[address] Work Phone: 01-02-2023 09:46-0400 Body height 185.42 cm Key Jasso Work Phone: [facility] 4100 Work Phone: 01-02-2023 09:46-0400 Body mass index (BMI) [Ratio] 35.23 kg/m2 Key Jasso Work Phone: [facility] 4[address] Work Phone: 01-02-2023 09:46-0400 Body surface area Derived from formula 2.43 m2 Keynevin Jasso Work Phone: [facility]arynlogySt[facility] 4100 Work Phone: 01-02-2023 09:46-0400 Body weight 121.11 kg Keynevin Jasso Work Phone: [facility]arynlogySt[facility] 4100 Work Phone: 01-02-2023 09:46-0400 Diastolic blood pressure 66 mm[Hg] Key Thiago Jasso Work Phone: [facility] [address] Work Phone: 01-02-2023 09:46-0400 Heart rate 51 /min Key Thiago Jasso Work Phone: [facility] 4100 Work Phone: 01-02-2023 09:46-0400 Respiratory rate 14 /min Key Thiago Jasso Work Phone: [facility] 4[facility] Work Phone: 01-02-2023 09:46-0400 SaO2% (BldA) [Mass fraction] 99 % Key Thiago Jasso Work Phone: [facility] 4100 Work Phone: 01-02-2023 09:46-0400 Systolic blood pressure 124 mm[Hg] Key Thiago Jasso Work Phone: [facility]tol[facility]ologySt[facility] 4100 Work Phone: 12-29-2022 12:15-0400 Body height 185.42 cm Key Thiago Jasso Work Phone: MGOtolarynlogySt. [facility] 4100 Work Phone: 12-29-2022 12:15-0400 Body mass index (BMI) [Ratio] 35.25 kg/m2 Key Jasso Work Phone: MG-Otshannockynen[facility]aleySt[facility] 4100 Work Phone: 12-29-2022 12:15-0400 Body surface area Derived from formula 2.43 m2 Keynevin Jasso Work Phone: [facility] 4100 Work Phone: 12-29-2022 12:15-0400 Body temperature 96.6 [degF] Keynevin Jasso Work Phone: [facility] 4100 Work Phone: 12-29-2022 12:15-0400 Body weight 121.2 kg Keynevin Jasso Work Phone: [facility] 4100 Work Phone: 12-23-2022 11:11-0400 Body height 185.42 cm Key Jasso Work Phone: [facility] [place] Work Phone: 12-23-2022 11:11-0400 Body mass index (BMI) [Ratio] 35.24 kg/m2 Key Jasso Work Phone: [facility] [place] Work Phone: 12-23-2022 11:11-0400 Body surface area Derived from formula 2.43 m2 Keynevin Jasso Work Phone: [facility] [place] Work Phone: 12-23-2022 11:11-0400 Body temperature 97.6 [degF] Key Thiago Jasso Work Phone: [facility] [place] Work Phone: 12-23-2022 11:11-0400 Body weight 121.17 kg Key A Jasso Work Phone: [facility] [place] Work Phone: 12-23-2022 11:11-0400 Diastolic blood pressure 73 mm[Hg] Key Jasso Work Phone: [facility] [place] Work Phone: 12-23-2022 11:11-0400 Heart rate 53 /min Key Jasso Work Phone: [facility] [place] Work Phone: 12-23-2022 11:11-0400 Systolic blood pressure 123 mm[Hg] Key Jasso Work Phone: [facility] [place] Work Phone: 12-15-2022 11:41-0400 Body mass index (BMI) [Ratio] Medical Reason Not Done Key Jasso Work Phone: [facility]ologySt[facility] 4100 Work Phone: 12-10-2022 11:04-0400 Body temperature 96.98 [degF] Key Jasso Other Phone: [facility] 12-10-2022 11:04-0400 Diastolic blood pressure 64 mm[Hg] Key Jasso Other Phone: [facility] 12-10-2022 11:04-0400 Heart rate 60 /min Key Jasso Other Phone: [facility] 12-10-2022 11:04-0400 Respiratory rate 19 /min Key Jasso Other Phone: [facility] 12-10-2022 11:04-0400 SaO2% (BldA) [Mass fraction] 98 % Key Jasso Other Phone: [facility] 12-10-2022 11:04-0400 Systolic blood pressure 100 mm[Hg] Key Jasso Other Phone: [facility] 12-04-2022 15:49-0400 Body temperature 37.0 {degrees_C} Key Jasso Work Phone: [facility] 4100 Work Phone: Comment on above: NOTE: PATIENT RESULTS ARE NOT CORRECTED FOR TEMPERATURE. 12-04-2022 10:39-0400 Body temperature 37.0 {degrees_C} Keynevin Jasso Work Phone: [facility]aryn[facility] 4100 Work Phone: Comment on above: NOTE: PATIENT RESULTS ARE NOT CORRECTED FOR TEMPERATURE. 12-04-2022 10:39-0400 SaO2% (BldA) [Mass fraction] 97 % Keyenvin Jasso Work Phone: [facility] 4100 Work Phone: 12-03-2022 17:13-0400 Body temperature 37.0 {degrees_C} Key Jasso Work Phone: [facility] 4100 Work Phone: Comment on above: NOTE: PATIENT RESULTS ARE NOT CORRECTED FOR TEMPERATURE. 12-03-2022 17:13-0400 SaO2% (BldA) [Mass fraction] 100 % Keynevin Jasso Work Phone: [facility] 4100 Work Phone: 12-03-2022 14:15-0400 Body temperature 37.0 {degrees_C} Key Jasso Work Phone: [facility]ANDOtshannockynKenmare [facility] 4101 Work Phone: Comment on above: NOTE: PATIENT RESULTS ARE NOT CORRECTED FOR TEMPERATURE. 12-03-2022 14:15-0400 SaO2% (BldA) [Mass fraction] 99 % Key Jasso Work Phone: [facility]tolaryngologySt[facility] 4100 Work Phone: 12-03-2022 09:52-0400 Body temperature 37.0 {degrees_C} Key Jasso Work Phone: [facility]ANDOtshannockynKen[facility] 4100 Work Phone: Comment on above: NOTE: PATIENT RESULTS ARE NOT CORRECTED FOR TEMPERATURE. 12-03-2022 09:52-0400 SaO2% (BldA) [Mass fraction] 100 % Key Thiago Jasso Work Phone: [facility]aryn[facility] 4100 Work Phone: 12-01-2022 09:44-0400 Body height 185.42 cm Key Thiago Jasso Work Phone: [facility] 4100 Work Phone: 12-01-2022 09:44-0400 Body mass index (BMI) [Ratio] 36.44 kg/m2 Key Thiago Jasso Work Phone: [facility] 4100 Work Phone: 12-01-2022 09:44-0400 Body surface area Derived from formula 2.47 m2 Key Thiago Jasso Work Phone: [facility] 4100 Work Phone: 12-01-2022 09:44-0400 Body weight 125.28 kg Key Thiago Jasso Work Phone: [facility] 4100 Work Phone: 12-01-2022 05:04-0400 Diastolic blood pressure 65 mm[Hg] [facility] 12-01-2022 05:04-0400 Heart rate 62 /min [facility] 12-01-2022 05:04-0400 Respiratory rate 20 /min [facility] 12-01-2022 05:04-0400 SaO2% (BldA) [Mass fraction] 95 % [facility] 12-01-2022 05:04-0400 Systolic blood pressure 112 mm[Hg] [facility] 12-01-2022 00:12-0400 Body height 185.42 cm [facility] 12-01-2022 00:12-0400 Body mass index (BMI) [Ratio] 37.6 kg/m2 [facility] 12-01-2022 00:12-0400 Body temperature 97.4 [degF] [facility] 12-01-2022 00:12-0400 Body weight 129.4 kg [facility] 11-25-2022 14:39-0400 Body height 185.42 cm Key Das [employer] Work Phone: [facility] [employer] Work Phone: 11-25-2022 14:39-0400 Body mass index (BMI) [Ratio] 37.14 kg/m2 Key Das [employer] Work Phone: [facility] [employer] Work Phone: 11-25-2022 14:39-0400 Body surface area Derived from formula 2.49 m2 Key Das [employer] Work Phone: [facility] [employer] Work Phone: 11-25-2022 14:39-0400 Body temperature 98 [degF] Key Das Jasso Work Phone: [facility] [employer] Work Phone: 11-25-2022 14:39-0400 Body weight 127.69 kg Key Das [employer] Work Phone: [facility] [employer] Work Phone: 11-25-2022 14:39-0400 Diastolic blood pressure 80 mm[Hg] Key Das [employer] Work Phone: [facility] [employer] Work Phone: 11-25-2022 14:39-0400 Heart rate 59 /min Keynevin Jasso Work Phone: [facility] [place] Work Phone: 11-25-2022 14:39-0400 Respiratory rate 16 /min Keynevin Jasso Work Phone: [facility] [place] Work Phone: 11-25-2022 14:39-0400 SaO2% (BldA) [Mass fraction] 97 % Key Thiago Jasso Work Phone: [facility] [place] Work Phone: 11-25-2022 14:39-0400 Systolic blood pressure 140 mm[Hg] Key Thiago Jasso Work Phone: [facility] [place] Work Phone: 11-18-2022 07:43-0400 Body temperature 97.88 [degF] Key Jasso Other Phone: [facility] 11-18-2022 07:43-0400 Diastolic blood pressure 79 mm[Hg] Key Jasso Other Phone: [facility] 11-18-2022 07:43-0400 Heart rate 86 /min Key Jasso Other Phone: [facility] 11-18-2022 07:43-0400 Respiratory rate 18 /min Key Romeor Other Phone: [facility] 11-18-2022 07:43-0400 SaO2% (BldA) [Mass fraction] 97 % Key Romero Other Phone: [facility] 11-18-2022 07:43-0400 Systolic blood pressure 159 mm[Hg] Key Jasso Other Phone: [facility] 11-12-2022 13:11-0400 Body height 185.42 cm Keynevin Jasso Work Phone: HQ-Ocnwlzjl-Tflavd [facility] [place] 3100 Work Phone: 11-12-2022 13:11-0400 Body mass index (BMI) [Ratio] 36.81 kg/m2 Key Thiago Jasso Work Phone: DO-Avonbsza-Ccuusm [facility] [place] 3100 Work Phone: 11-12-2022 13:11-0400 Body surface area Derived from formula 2.48 m2 Key Das Romero Work Phone: KR-Rxaczuhr-Saxcsb [facility] [place] 3100 Work Phone: 11-12-2022 13:11-0400 Body temperature 97.2 [degF] Key Das Romero Work Phone: YR-Alhiwfvr-Skljjj [facility] [place] 3100 Work Phone: 11-12-2022 13:11-0400 Body weight 126.55 kg Key Das Romero Work Phone: IG-Yuibpdqh-Vgcfdh [facility] [place] 3100 Work Phone: 11-12-2022 10:41-0400 Body height 185.42 cm Key Das Romero Work Phone: AT-Gnxxvzba-Inbwkm [facility] [place] 3100 Work Phone: 11-12-2022 10:41-0400 Body mass index (BMI) [Ratio] 36.84 kg/m2 Key Das Romero Work Phone: DW-Etwaglib-Wdaqah [facility] [place] 3100 Work Phone: 11-12-2022 10:41-0400 Body surface area Derived from formula 2.48 m2 Key Das Jasso Work Phone: QR-Oqoaacru-Gfuyid [facility] [place] 3100 Work Phone: 11-12-2022 10:41-0400 Body temperature 97.7 [degF] Key Jasso Work Phone: SW-Nxmroicw-Yehvoo [facility] [place] 3100 Work Phone: 11-12-2022 10:41-0400 Body weight 126.67 kg Keynevin Jasso Work Phone: RS-Tuxdotee-Bjuukj [facility] [place] 3100 Work Phone: 11-12-2022 10:41-0400 Diastolic blood pressure 71 mm[Hg] Key Thiago Jasso Work Phone: VD-Waesqhjv-Upqgwi [facility] [place] 3100 Work Phone: 11-12-2022 10:41-0400 Heart rate 64 /min Key Thiago Jasso Work Phone: FI-Zxyylndh-Kknpjr [facility] [place] 3100 Work Phone: 11-12-2022 10:41-0400 SaO2% (BldA) [Mass fraction] 95 % Key Thiago Jasso Work Phone: KJ-Fhdyeicu-Zaiwrg [facility] [place] 3100 Work Phone: 11-12-2022 10:41-0400 Systolic blood pressure 129 mm[Hg] Key Thiago Jasso Work Phone: WC-Uifzvqbl-Mheiio [facility] [place] 3100 Work Phone: 10-30-2022 08:58-0400 Body height 185.42 cm Unknown [facility] 4100 Work Phone: 10-30-2022 08:58-0400 Body mass index (BMI) [Ratio] 36.98 kg/m2 Unknown Unknown [facility]ologySt[facility] 4100 Work Phone: 10-30-2022 08:58-0400 Body surface area Derived from formula 2.48 m2 Unknown Unknown [facility] 4100 Work Phone: 10-30-2022 08:58-0400 Body temperature 97.3 [degF] Unknown Unknown [facility]aryngolo [facility]St[facility] 4100 Work Phone: 10-30-2022 08:58-0400 Body weight 127.14 kg Unknown Unknown [facility]olog [facility]St[facility] 4100 Work Phone: 05-27-2022 14:18-0400 Body temperature 98.6 [degF] [facility] Work Phone: 05-27-2022 14:18-0400 Diastolic blood pressure 64 mm[Hg] [facility] Work Phone: 05-27-2022 14:18-0400 Heart rate 65 /min [facility] Work Phone: 05-27-2022 14:18-0400 Respiratory rate 16 /min [facility] Work Phone: 05-27-2022 14:18-0400 SaO2% (BldA) [Mass fraction] 98 % [facility] Work Phone: 05-27-2022 14:18-0400 Systolic blood pressure 136 mm[Hg] [facility] Work Phone: 05-27-2022 06:58-0400 Body height 185.42 cm [facility] Work Phone: 05-27-2022 06:58-0400 Body mass index (BMI) [Ratio] 37.2 kg/m2 [facility] Work Phone: 05-27-2022 06:58-0400 Body weight 127.91 kg [facility] Work Phone: Encounters Encounter Date Encounter Type Care Provider Facility Start: 03-17-2025 End: 03-17-[address] Key Jasso MD Work Phone: -[facility] [place] Start: 03-17-2025 End: 03-17-[address] Key Jasso MD -[facility] [place] Work Phone: Start: 03-17-2025 End: 03-17-2025 ambulatory Key Jasso Facility:[facility] Start: 03-07-2025 End: 03-07-[address] Key Jasso MD Work Phone: -Laboratory [facility] Start: 03-07-2025 End: 03-07-[address] Key Jasso MD -Laboratory [facility] Start: 03-07-2025 End: 03-07-2025 ambulatory Key Jasso Facility:[facility] Start: 01-12-2025 End: 01-12-[address] Key Jasso MD Work Phone: -Physical Therapy Start: 01-12-2025 End: 01-12-[address] Per Pond MD -Physical Therapy Work Phone: Start: 01-12-[address] Per watters MD -Physical Therapy Work Phone: Start: 01-05-2025 End: 01-05-[address] Per Pond MD -[facility] Work Phone: Start: 01-05-2025 End: 01-05-2025 ambulatory Key Jasso [place] Start: 11-21-2024 End: 11-21-[address] Key Jasso MD Work Phone: [facility] Work Phone: Start: 11-21-2024 End: 11-21-[address] Key Jasso MD -[facility] Work Phone: Start: 11-21-2024 End: 11-21-2024 ambulatory Key Jasso Facility:[facility] Start: 10-11-2024 End: 10-11-[address] Key Jasso MD Work Phone: [facility] Work Phone: Start: 10-11-2024 End: 10-11-[address] Key Jasso MD -Laboratory, [facility] Start: 10-11-2024 End: 10-11-2024 ambulatory Key Jasso Facility:[facility] Start: 10-03-2024 End: 10-03-2024 Office outpatient visit 10 minutes Natividad Rodriguez MD Work Phone: [facility] Comment on above: History of osteomyel itis (Primary Dx) Start: 10-03-2024 End: 10-03-2024 ambulatory [facility] Ambulatory Start: 06-27-2024 End: 06-27-2024 ambulatory KEY Das [facility] Start: 06-03-2024 End: 06-03-2024 Office outpatient visit 25 minutes Sadia Dickson MD Work Phone: [facility] [place] Comment on above: Osteomyelitis of max illa (Primary Dx); Actinomycosis, cervicofacial Start: 06-03-2024 End: 06-03-2024 ambulatory [facility] Ambulatory Start: 04-13-2024 End: 04-13-2024 ambulatory Key Jasso Facility:[facility] Start: 02-26-2024 End: 02-26-2024 Office outpatient visit 15 minutes Sadia Dickson MD Work Phone: [facility] [place] Comment on above: Actinomycosis, cervi cofacial (Primary Dx) Start: 02-26-2024 End: 02-26-2024 ambulatory [facility] Ambulatory Start: 12-15-2023 End: 12-15-2023 Office outpatient visit 25 minutes Sadia Dickson MD Work Phone: [facility] [place] Comment on above: Actinomycosis, cervi cofacial (Primary Dx); Osteomyelitis of maxilla Start: 12-15-2023 End: 12-15-2023 ambulatory [facility] Ambulatory Start: 12-07-2023 End: 12-07-2023 ambulatory [facility] Work Phone: Start: 12-07-2023 End: 12-07-2023 Patient encounter [facility] Start: 11-02-2023 End: 11-02-2023 Office outpatient visit 15 minutes Natividad Rodriguez MD Work Phone: [facility] Comment on above: Osteomyelitis of max illa (Primary Dx) Start: 11-02-2023 End: 11-02-2023 ambulatory [facility] Ambulatory Start: 08-31-2023 End: 08-31-2023 Office outpatient visit 10 minutes Uriah Amador MD Work Phone: [facility] Comment on above: Osteomyelitis of max illa (Primary Dx) Start: 07-27-2023 End: 07-27-2023 ambulatory [facility] Work Phone: Start: 07-27-2023 End: 07-27-2023 Patient encounter procedure [facility] Start: 07-06-2023 End: 07-06-2023 ambulatory [facility] Work Phone: Start: 07-06-2023 End: 07-06-2023 Patient encounter procedure [facility] Work Phone: Start: 07-06-2023 End: 07-06-2023 Office outpatient visit 15 minutes Natividad Rodriguez MD Work Phone: [facility] Comment on above: Osteomyelitis of max illa (Primary Dx) Start: 06-26-2023 End: 06-26-2023 ambulatory [facility] Work Phone: Start: 06-26-2023 End: 06-26-2023 Patient encounter procedure [facility] Start: 06-22-2023 End: 06-22-2023 ambulatory [facility] Work Phone: Start: 06-22-2023 End: 06-22-2023 Patient encounter procedure [facility] Start: 06-19-2023 End: 06-20-2023 ambulatory [facility] Start: 06-19-2023 End: 06-19-2023 Subsequent hospital visit by physician Ronak Forrester [facility] Comment on above: Inflammatory conditi ons of jaws Start: 05-04-2023 Office outpatient vi sit 15 minutes Key Jasso Work Phone: KX-Bnjhcpeifgydox-[facility] 4100 Work Phone: Start: 05-04-2023 ambulatory NATIVIDAD Facility:[id number] Start: 03-31-2023 Office outpatient vi sit 25 minutes Key Jasso Work Phone: MG-Infectious Disease-[facility] [place] Work Phone: Start: 03-31-[address] Key Monaco ty:[id number] Start: 02-23-2023 ambulatory [facility] Facility:[id number] Start: 02-20-2023 End: 02-20-2023 ambulatory [facility] Work Phone: Start: 02-20-2023 End: 02-20-2023 Patient encounter procedure [facility] Start: 02-16-2023 Postop follow up vis it related to original px Key A Romero Work Phone: GV-Afdounrugzlbcw-SbysCHI [facility] 4100 Work Phone: Start: 02-16-[address] Key Monaco ty:[id number] Start: 01-19-2023 Postop follow up vis it related to original px Keynevin Jasso Work Phone: HS-Cehwxbhribkyvj-KwnuCHI [facility] 4100 Work Phone: Start: 01-19-[address] Key Monaco ty:[id number] Start: 01-05-2023 Postop follow up vis it related to original px Key A Romero Work Phone: KD-Oumljawpggmzil-ZmuuCHI [facility] 4100 Work Phone: Start: 01-05-[address] Key Monaco ty:[id number] Start: 01-05-2023 ambulatory NATIVIDAD RODRIGUEZ Facility:[id number] Start: 01-02-2023 ambulatory NATIVIDAD LI Facility:[id number] Start: 12-31-2022 [facility] Uriah Amador, Status: Pen, Time: 10:00 AM Key Jasso Work Phone: KD-Uachbwyhrlpjsx-OuzhCHI [facility] 4104 Work Phone: Start: 12-31-2022 End: 12-31-[address] Key Jasso Facility:[facility] Start: 12-31-2022 End: 12-31-2022 Subsequent hospital visit by physician Uriah Amador MD Work Phone: [facility] Comment on above: Other [...] diabetes mellitus with diabetic chronic kidney disease ([facility]); Obesity, unspecified; Personal history of other venous thrombosis and embolism; detention (current) use of anticoagulants; Unspecified osteoarthritis, unspecified site; Spinal stenosis, lumbar region without neurogenic claudication; Unspecified visual loss; Chronic sinusitis, unspecified; Personal history of COVID-19; detention (current) use of aspirin; detention (current) use of oral hypoglycemic drugs Start: 12-30-2022 Chart Update Key Jasso Work Phone: MU-Pqnyititfgslwx-Whpe man Work Phone: Start: 12-29-2022 Office outpatient vi sit 15 minutes Key Jasso Work Phone: TN-Iftpfygcoqcdod-JwhzCHI [facility] 4102 Work Phone: Start: 12-29-[address] Key Monaco ty:[id number] Start: 12-23-[address] Key Monaco ty:[id number] Start: 12-23-2022 Chart Update Key Jasso Work Phone: MG-Infectious Disease-[facility] [place] Work Phone: Start: 12-19-2022 AUDIT Key Jasso Work Phone: MG-[facility] [place] Work Phone: Start: 12-17-2022 Chart Update Key Jasso Work Phone: MG-[facility] [place] Work Phone: Start: 12-15-2022 Postop follow up vis it related to original px Key Jasso Work Phone: XT-Lwydkofbpdsqun-SobbCHI [facility] 4100 Work Phone: Start: 12-15-[address] Key Monaco ty:[id number] Start: 12-03-2022 [facility], Provider: Uriah Amador, Status: Pen, Time: 7:00 AM Key Jasso Work Phone: DV-Jzznwwwoccrshm-NepuCHI [facility] 4100 Work Phone: Start: 12-03-2022 End: 12-10-2022 Evaluation and management of inpatient Uriah Timo Usha 5 [id number] [id number] Start: 12-01-2022 Office outpatient vi sit 15 minutes Key Jasso Work Phone: UY-Gnzxlzvgreoafw-ZcktCHI [facility] 4100 Work Phone: Start: 12-01-[address] Key Monaco ty:[id number] Start: 12-01-2022 End: 12-01-2022 Emergency department patient visit [facility]-Emergency Department Start: 11-25-[address] Natividad Rodriguez Facility:[id number] Start: 11-25-2022 Chart Update Key Jasso Work Phone: MG-[facility] [employer] Work Phone: Start: 11-17-2022 Chart Update Key Jasso Work Phone: CE-Hijdeuuxmrwnwl-NbpuNorth[facility] 4100 Work Phone: Start: 11-13-2022 End: 11-18-2022 Evaluation and management of inpatient PCP UNKNOWN Facility:[facility] Start: 11-13-2022 Chart Update Key Jasso Work Phone: YL-Fvtwhfolsrkvjy-Ssbw man Work Phone: Start: 11-13-2022 [facility] Provider: Natividad Rodriguez, Status: Pen, Time: 8:00 AM Key Jasso Work Phone: NT-[facility]hdnxcnj-[facility]qtgzeRed [facility] [place] [address] Work Phone: Start: 11-13-2022 End: 11-18-2022 Evaluation and management of inpatient Natividad Rodriguez Usha 5 Rm [id number] Start: 11-12-[address] Key Jasso Facili ty:[facility] Start: 11-12-2022 ambulatory UNKNOWN UNKNOWN Facilit y:[id number] Start: 11-12-2022 Office outpatient ne w 45 minutes Key Jasso Work Phone: MU-Jdqaxdvx-EmwvmqdRed [facility] [place] [address] Work Phone: Start: 11-12-2022 ambulatory NATIVIDAD RODRIGUEZ Facility:[facility] Start: 11-12-2022 Encounter for blood typing NATIVIDAD RODRIGUEZ [facility] Start: 11-12-2022 Encounter for preprocedural cardiovascular examination NATIVIDAD RODRIGUEZ [facility] Start: 11-12-2022 Encounter for preprocedural laboratory examination NATIVIDAD RODRIGUEZ [facility] Start: 11-06-2022 AUDIT Unknown Unknown MG-Otol aryngology-[place] n 395 Work Phone: Start: 11-06-2022 End: 11-06-2022 ambulatory [facility] Work Phone: Start: 11-06-2022 End: 11-06-2022 Patient encounter procedure [facility]-MRI - [facility] Start: 10-30-2022 ambulatory [facility] Facility: [facility] Start: 10-30-2022 Office consultation new/estab patient 80 min Unknown Unknown AT-Shogilxxfdxnwg-Qtjb n 395 Work Phone: Start: 10-30-2022 Patient encounter procedure Unknown Unknown VD-Vdqbxzivxygcml-AwawNorthwood [facility] 4100 Work Phone: Start: 10-30-2022 [facility] Facility: [facility] Start: 09-30-2022 End: 09-30-2022 [facility] Work Phone: Start: 09-30-2022 End: 09-30-2022 Patient encounter procedure [facility]-Cat Scan, [facility] Start: 05-27-2022 End: 05-27-2022 Admission to same day surgery center [facility]-Surgical Day Care Start: 05-27-2022 End: 05-27-2022 ambulatory [facility] Work Phone: Start: 04-07-2022 End: 04-07-2022 [facility] Work Phone: Start: 04-07-2022 End: 04-07-2022 Patient encounter procedure [facility]-Cat Scan, [facility] Start: 12-20-2021 End: 12-20-2021 Patient encounter procedure [facility]-Laboratory, [facility] Start: 11-26-2021 End: 11-26-2021 Patient encounter procedure [facility]-Cat Scan, [facility] Preoperative state Key Jasso Work Phone: [facility] [address] Work Phone: Procedures Date Procedure [...] on above: Performed By: #### T +S ####[id number] [place] [address] Start: 11-12-2022 Antibody screen NATIVIDAD Brandt I Comment on above: Performed By: #### T +S ####[id number] [place] [address] Start: 11-06-2022 MRI of orbit, face a [...] procedure 10/31/2024 9:45 AM EDT Office Visit [facility] [address] [place] [id number] [place] [address] [place] [address] [facility] Start: 06-03-2024 End: 06-03-2025 C reactive protein [Mass/volume] in Serum or Plasma C-reactive protein Lab Routine Actinomycosis, cervicofacial Osteomyelitis of maxilla Expected: 06/03/2024 (Approximate), Expires: 06/03/2025 [facility] Service Area Work Phone: Comment on above: Expected: 06/03/2024 (Approximate), Expi res: 06/03/2025 Start: 04-17-2024 COVID-19 Vaccine () COVID-19 Vaccine () [facility] Start: 04-17-2024 Influenza vaccination [facility] Start: 01-01-2024 Diabetes mellitus screening Diabetes Screening [facility] Start: 12-18-2023 End: 12-18-2023 Telemedicine consultation with patient 12/18/2023 8:40 AM EDT Telemedicine [facility] [address] [facility] [address] [place] [id number] [place] [address] [place], [place] [id number] [facility] Start: 11-14-2023 End: 11-14-2024 Atenolol 50 mg Oral Tablet Daily ; Tablet (TENORMIN)DOSE = 50 mg Feeding tube Daily Start: 14-Nov-2023 End: 13-Nov-2024 Ordered: 13-Nov-2022 Jose Antonio, Dena Intent [facility] Start: 11-02-2023 End: 11-02-2023 Patient encounter procedure 11/02/2023 9:45 AM EDT Office Visit [facility] [address] [facility] [address] [place] [address] [place] [address] [place], [place] [id number] [facility] Start: 08-31-2023 FUV, Provider: Uriah Amador, Status: Pen, Time: 9:30 AM FUV, Provider: Uriah Amador, Status: Pen, Time: 9:30 AM SN-Spmmepltvtbdnt-Edm dungin [facility] [address] Work Phone: Start: 08-31-2023 End: 08-31-2023 Patient encounter procedure 08/31/2023 9:30 AM EST Office Visit [facility] [address] [place] [address] [place] [address] [place], [place] [id number] [facility] Start: 07-31-2023 VIRFUVMARJORIE, Provider: Sadia Dickson, Status: Pen, Time: 8:00 AM VIRFUPERRI, Provider: Sadia Dickson, Status: Pen, Time: 8:00 AM [facility] Work Phone: Start: 07-31-2023 End: 07-31-2023 Telemedicine consultation with patient 07/31/2023 8:00 AM EST Telemedicine [facility] [address] [facility] [address] [place] [phone] [place] [address] [place], [place] [phone] [facility] Start: 07-06-2023 End: 07-06-2023 Patient encounter procedure 07/06/2023 8:45 AM EST Office Visit [facility] [address] [place] [address] [place] [address] [place] [address] [facility] Start: 04-17-2023 COVID-19 Vaccine (1 season) COVID-19 Vaccine ( season) [facility] Start: 04-17-2023 Influenza vaccination Influenza Vaccine (#1) [facility] Start: 03-31-2023 VIRFUVHOME, Provider: Sadia Dickson, Status: Pen, Time: 10:20 AM VIRFUVHOME, Provider: Sadia Dickson, Status: Pen, Time: 10:[address] Work Phone: Start: 02-23-2023 FUV, Provider: Natividad Rodriguez, Status: Pen, Time: 10:45 AM FUV, Provider: Natividad Rodriguez, Status: Pen, Time: 10:45 AM [facility] [address] Work Phone: Start: 02-16-2023 POV, Provider: Uriah Amador, Status: Pen, Time: 9:30 AM POV, Provider: Uriah Amador, Status: Pen, Time: 9:30 AM [facility] [address] Work Phone: Start: 02-12-2023 Hemoglobin A1c measurement Diabetes: Hemoglobin A1C [facility] Start: 01-20-2023 FUV, Provider: Natividad Rodriguez, Status: Pen, Time: 9:00 AM FUV, Provider: Natividad Rodriguez, Status: Pen, Time: 9:00 AM [facility] Work Phone: Start: 01-19-2023 POV, Provider: Uriah Amador, Status: Pen, Time: 9:00 AM POV, Provider: Uriah Amador, Status: Pen, Time: 9:00 AM PK[facility]le[facility] 4[facility] Work Phone: Start: 01-05-2023 POV, Provider: Natividad Rodriguez, Status: Pen, Time: 10:45 AM POV, Provider: Natividad Rodriguez, Status: Pen, Time: 10:45 AM [facility] [place] Work Phone: Start: 01-02-2023 FUVHOSP, Provider: Sadia Dickson, Status: Pen, Time: 10:20 AM FUVHOSP, Provider: Sadia Dickson, Status: Pen, Time: 10:20 AM BO-[facility] Work Phone: Start: 01-02-2023 Patient encounter procedure [facility] Infectio us Disease [place] Start: 12-29-2022 FUV, Provider: Uriah Amador, Status: Pen, Time: 12:45 PM FUV, Provider: Uriah Amador, Status: Pen, Time: 12:45 PM ON-Naxegrurtqvimk[facility] Work Phone: Start: 12-26-2022 Patient encounter procedure [facility] Start: 12-26-2022 POV, Provider: Natividad Rodriguez, Status: Pen, Time: 1:15 PM POV, Provider: Natividad Rodriguez, Status: Pen, Time: 1:15 PM QU-Bcpwfkxcopfelc[facility] Work Phone: Start: 12-22-2022 NPV, Provider: Analisa Barrera, Status: Pen, Time: 1:45 PM NPV, Provider: Analisa Barrera, Status: Pen, Time: 1:45 PM [facility] [place] Work Phone: Start: 12-22-2022 Patient encounter procedure Cardiolog y [facility] Start: 12-15-2022 Patient encounter procedure [facility] Otolaryn gology [place] Start: 11-25-2022 Patient encounter procedure [facility] Miscella neous Start: 11-25-2022 POV, Provider: Natividad Rodriguez, Status: Pen, Time: 2:45 PM POV, Provider: Natividad Rodriguez, Status: Pen, Time: 2:45 PM XF[facility]Mgkdpqfoztcvfm[facility] 4[facility] Work Phone: Start: 11-16-2022 End: 11-17-2023 [...] 16-Nov-2022 End: 16-Nov-2023 Ordered: 16-Nov-2022 Ej Verdin [facility] Start: 11-15-2022 End: 11-16-2023 Sennosides Oral Liquid 5 mL 2 Times a Day ; DOSE = 5 mL Feeding tube 2 Times a Day Start: 15-Nov-2022 End: 15-Nov-2023 Ordered: 15-Nov-2022 Rigoberto Smith [facility] Start: 11-13-2022 End: 11-14-2023 [facility] Comment on above: When patient has double lumen, flush bot h lumens After blood draws May Give 1ml to 5ml to anesthetize insertion site for patient comfort. Start: 11-13-2022 End: 11-14-2023 [facility] Comment on above: IF patient HAS a [...] mg/dL or greater. Start: 05-27-2022 Patient discharge [facility] Work Phone: Start: 08-09-2020 Hepatitis B Vaccines (3 of 3 - 19+ 3-dose series) Hepatitis B Vaccines (3 of 3 - 19+ 3-dose series) [facility] Start: 07-01-2019 DTaP/Tdap/Td Vaccines (1 - Tdap) DTaP/Tdap/Td Vaccines (1 - Tdap) [facility] Start: 2012 RSV High Risk: (Elderly (60+) or Population) (1 - Risk 60-74 years 1-dose series) RSV High Risk: (Elderly (60+) or Population) (1 - Risk 60-74 years 1-dose series) [facility] Start: 2012 RSV patients and/or patients aged 60+ years (1 - 1-dose 60+ series) RSV patients and/or patients aged 60+ years (1 - 1-dose 60+ series) [facility] Start: 1970 Hepatitis C screening Hepatitis C Screening [facility] Start: 1962 Diabetic foot examination Diabetes: Foot Exam [facility] Start: 1962 Glaucoma screening Diabetes: Retinopathy Screening [facility] Start: 03-11-1953 COVID-19 Vaccine (#1) COVID-19 Vaccine (#1) [facility] Start: 1952 Lipid panel Lipid Panel [facility] Start: 1950 Medicare Annual Wellness Visit Medicare Annual Wellness Visit (AWV) [facility] Start: 1950 Screening for malignant neoplasm of colon [facility] Blood chemistry [facility] Work Phone: Electrocardiographic procedure [facility] Work Phone: Hemoglobin A1c/Hemoglobin.total in Blood [facility] Work Phone: Patient Education ED Post Op Wou nd Check, Bleeding [facility] Work Phone: Patient referral [facility] Work Phone: Postoperative pain Postoperative pain [facility] Prothrombin time [facility] Work Phone: Immunizations Immunization Date Immunization Notes Care Provider Fa esther 12-15-2022 zoster vaccine recombinant Key A Jasso Work Phone: [facility] Work Phone: 08-28-2022 zoster vaccine recombinant Key Jasso Work Phone: [facility] Work Phone: 08-01-2020 hepatitis A vaccine, pediatric/adolescent dosage, 2 dose schedule Key Jasso Work Phone: [facility] Work Phone: 04-02-2020 hepatitis B vaccine, adult dosage Key Jasso Work Phone: [facility] Work Phone: 02-08-2020 hepatitis B vaccine, adult dosage Key Jasso Work Phone: [facility] [place] Work Phone: 02-08-2020 pneumococcal polysaccharide vaccine, 23 valent Key Jasso Work Phone: [facility] [place] Work Phone: 06-30-2019 pneumococcal conjuga te vaccine, 13 valent Key Jasso Work Phone: [facility] Work Phone: 06-30-2019 tetanus and diphther ia toxoids, adsorbed, preservative free, for adult use (5 Lf of tetanus toxoid and 2 Lf of diphtheria toxoid) Key Jasso Work Phone: [facility] Work Phone: Payers Date Payer Category Payer Self-pay [id number] 2020 Medicare [id number] 2020 Medicare supplementa l policy (as second payer) [employer] SENIOR SUPPLEMENT [id number] 2020 Private Health Insurance AETNA S UPPLEMENTAL AETNA SENIOR SUPPLEMENT [id number] 2020-Present [address] [place] [address] [id number] 2020 Private Health Insurance I [id number] 2017 Medicare [id number] 2016 Unknown [id number] 1952 Unknown [id number] 2.840.1.892383.3.57 9.2.1046 1952 Unknown [id number] 2.840.1.136650.3.57 9.2.1046 1952 Unknown [id number] 2.840.1.934775.3.57 9.2.356 1952 Unknown [id number] 2.840.1.211285.3.57 9.2.356 1952 Unknown [id number] 2.840.1.312406.3.57 9.2.356 1952 Unknown [id number] 2.16.840.1.540279.3.57 9.2.356 1952 Unknown [id number] 2.16.840.1.485018.3.57 9.2.356 1952 Unknown [id number] 2.16.840.1.515747.3.57 9.2.356 1952 Unknown [id number] 2.16.840.1.331737.3.57 9.2.356 1952 Unknown [id number] 2.16.840.1.680766.3.57 9.2.356 1952 Unknown [id number] 2.16.840.1.554403.3.57 9.2.356 1952 Unknown [id number] 2.16.840.1.004203.3.57 9.2.356 1952 Unknown [id number] 2.16.840.1.132955.3.57 9.2.356 1952 Unknown [id number] 2.16.840.1.775800.3.57 9.2.356 1952 Unknown [id number] 2.16.840.1.567573.3.57 9.2.356 1952 Unknown [id number] 2.16.840.1.518195.3.57 9.2.356 1952 Unknown [id number] 2.16.840.1.679747.3.57 9.2.356 1952 Unknown [id number] 2.16.840.1.245989.3.57 9.2.356 1952 Unknown [id number] 2.16.840.1.049017.3.57 9.2.356 1952 Unknown [id number] 2.16.840.1.194946.3.57 9.2.356 1952 Unknown [id number] 2.16.840.1.959307.3.57 9.2.356 1952 Unknown [id number] 2.16.840.1.760124.3.57 9.2.1243 1952 Unknown [id number] 2.16.840.1.127804.3.57 9.2.1245 1952 Unknown [id number] 2.16.840.1.743846.3.57 9.2.1244 1952 Unknown [id number] 2.16.840.1.275402.3.57 9.2.1244 1952 Unknown [id number] 2.16.840.1.570718.3.57 9.2.1244 1952 Unknown [id number] 2.16.840.1.032550.3.57 9.2.1244 1952 Unknown [id number] 2.16.840.1.188246.3.57 9.2.1244 Unknown Unknown [id number] 2.16.840.1.861474.3.57 9.2.462 Unknown [id number] 2.16.840.1.202491.3.57 9.2.462 Unknown [id number] 2.16.840.1.031930.3.57 9.2.462 Unknown [id number] 2.16.840.1.371590.3.57 9.2.462 Unknown [id number] 2.16.840.1.675869.3.57 9.2.462 Unknown [id number] 2.16.840.1.303559.3.57 9.2.462 Unknown [id number] 2.16.840.1.082228.3.57 9.2.462 Unknown [id number] 2.16.840.1.770658.3.57 9.2.462 Social History Date Type Detail Facility Start: 06-12-2021 End: 12-01-2022 Tobacco smoking status NHIS Unknown if ever smoked [facility] Start: 05-20-2019 None [facility] Start: 05-20-2019 Spouse/ Signif icant Other [facility] Start: 11-16-2019 Non-smoker [facility] Start: 1950 Sex Assigned At Male [facility] Start: 1950 Sex Assigned At Not on file [facility] Work Phone: Start: 07-06-2023 End: 11-02-2023 Gender identity Not on file [facility] Work Phone: Start: 06-09-2023 End: 10-03-2024 Exposure to SARS-CoV-2 (event) Not sure [facility] Start: 12-01-2022 End: 07-06-2023 Tobacco smoking status NHIS Never smoked tobacco [facility] Work Phone: Start: 07-06-2023 Tobacco use and exposure Smokeless tobacco non-user [facility] Work Phone: Start: 07-06-2023 End: 11-02-2023 History of Social function [facility] Work Phone: Start: 05-24-2024 End: 06-03-2024 Exposure to SARS-CoV-2 (event) Unable to assess [facility] Start: 10-26-2024 End: 11-24-2024 Sex Male (finding) [facility] Medical Equipment Procedure Code Equipment Code Equipment Origin al Text Equipment Identifier Dates FESS (functional endoscopic sinus surgery) Plant polysaccharide haemostatic agent, bioabsorbable ([id number] 02[facility] FDA Start: 05-27-2022 USE 1 EACH DAILY WITH USE OF INSULIN PEN [id number] Start: 10-14-2022 Goals Date Patient Goal Desired Activity /State Functional Status Date Assessment Result Facility Functional observable [facility] Mental Status Date Assessment Result Facility 12-08-2022 Cognitive functi ons :19 [facility] 11-17-2022 Cognitive functi ons [id number] [facility] 05-27-2022 Cognitive function Voice/Name [facility] Work Phone: Clinical Notes 05-04-2021 to 03-28-2025 Note Date & Type Note Facility 03-28-2025 Discharge summary [facility] 03-28-2025 Discharge summary Note Date/Time March 28, 2025 12:58pm [facility] Physical Therapy [facility] [address] [place] [address] / REHABILITATION SERVICES DISCHARGE SUMMARY MR#: [id number] Acct: [id number] Name: BRENDON DAVID Rep #: [id number] : 1950 74 From: Cert. DANGELO RocaT, [...] Dr. Key Jasso MD ~ JLA Signed [facility] Work Phone: 1(519) 843-388905-22-2025 Evaluation note* Diagnosis Onset Date Resolution Status Admit Date Balance disorder acute December 7:46am History of lumbar fusion acute January 05, 2025 7:46am Spinal stenosis of lumbar re gion with neurogenic claudication acute January 05, 2025 7:46am Spondylolisthesis, lumbar region acu te January 05, 2025 7:46am [facility] Work Phone: 1(762) 484-988402-25-2025 Radiology Diagnostic study note [facility] Imaging Services [address] [place], [place] [address] Lumbar Spine 2 or 3 Views MR#: [id number] Acct: [id number] Name: BRENDON DAVID Rep #: [id number] : 1950 74 From: Jad Baker MD PCP: Dr. Key Jasso MD Status: REG CLI Study:Lumbar Spine 2 or 3 Views Date of Exam: 10/11/24 Exam# [id number] Ordering Dr: Torito Jasso MD PROCEDURE: LUMBAR [...] interarticularis of the L5 vertebrae. Reading Location: [id number] CC: Dr. Key Jasso MD ~ Tail Board Worker: Signed [facility]04-30-2024 History of Present illness Narrative* [...] January 13 8:40 AM documented in this [facility] Work Phone: 1(332) 175-907203-18-2024 History of Present illness Narrative* Natividad Rodriguez [...] Signs/Symptoms:osteomyelitis of maxilla COMPARISON: None. ACCESSION NUMBER(S): [id number] ORDERING CLINICIAN: NATIVIDAD RODRIGUEZ TECHNIQUE: Thin cut [...] Nuñez MD. This study was interpreted at [place], [place]. MACRO: None Signed by: Christopher Oconnell 06/19/2023 10:11 AM Dictation workstation: [id number] Assessment and Plan 72 yo man with a destructive process involving much of the left maxilla s/p maxillectomy, recon with serratus/rib free flap ct face w/o contrast -: no obvious bony necrosis, maxillary sinus patent -well healed -pt to reach out to Dr. Dickson to discuss when to stop doxy -RTC in 1 year Natividad Rodriguez MD [facility] Work Phone: 1(647) 519-872401-15-2024 History of Present illness Narrative* Uriah Amador [...] -RTC in 4-6 months [facility] Work Phone: 1(894) 436-799611-20-2023 History of Present illness Narrative* Natividad Rodriguez [...] Signs/Symptoms:osteomyelitis of maxilla COMPARISON: None. ACCESSION NUMBER(S): [id number] ORDERING CLINICIAN: NATIVIDAD RODRIGUEZ TECHNIQUE: Thin cut [...] Nuñez MD. This study was interpreted at [place], [place]. MACRO: None Signed by: Christopher Oconnell 06/19/2023 10:11 AM Dictation workstation: [id number] Assessment and Plan 72 yo man with a destructive process involving much of the left maxilla s/p maxillectomy, recon with serratus/rib free flap -reviewed ct face w/o contrast: no obvious bony necrosis, maxillary sinus patent -healing well -RTC in 4-6 months Natividad Rodriguez MD documented in this [facility] Work Phone: 1(497) 737-236309-18-2023 NoteOrders Blood Urea Nitrogen, Serum; Status:In Progress - Specimen/Data Collected; Done: [id number] Creatinine, Serum; Status:In Progress - Specimen/Data Collected; Done: [id number] CT Face with/without Contrast; Status:Hold For - Scheduling,Retrospective By Protocol Authorization; Requested for:[id number]; Patient taking Metformin or Derivatives? : No [...] Chief Complaint follow up History of Present [age]rmxdgh42 yo man who presents for evaluation of [...] Tablet Zinc TABS Vitals Vital Signs Recorded: [id number] 11:10AM Height6 ft 1 in Qcchpv077 lb BMI Uarasxkipg83.62 kg/m2 BSA Calculated2.44 Tobacco Useb) No PHQ-2 [...] MD; May 04 2023 12:34PM EST (Author) [id number] History of Present illness Narrative* Update March [...] outside providers and finally was referred to [facility]-- in October underwent surgery and debridement with [...] better. No fevers chills nausea vomiting diarrhea. [facility] [employer] Work Phone: 1(103) 639-450008-15-2023 Chief complaint Narrative - Reported* An interactive [...] for a hospital follow up visit. -Infect[facility] Disease-[facility] [employer] Work Phone: 1(236) 244-140205-17-2023 [facility]05-17-2023 Miscellaneous Notes* Op Note - Anthony De Guzman MD - 12/31/2022 3:00 PM EDT PROCEDURE DETAILS Preoperative Diagnosis: Osteomyelitis of the maxilla Postoperative Diagnosis: Osteomyelitis of the maxilla Surgeon: Timo Resident/Fellow/Other Tracer Powder Blender: Olinde. De Guzman Procedure: 1. Left palate [...] 10:42 by Uriah Amador) documented in this [facility] Work Phone: 1(465) 984-403805-17-2023 Note* Op Note - Anthony De Guzman MD - 12/31/2022 3:00 PM EDT PROCEDURE DETAILS Preoperative Diagnosis: Osteomyelitis of the maxilla Postoperative Diagnosis: Osteomyelitis of the maxilla Surgeon: Timo Resident/Fellow/Other Tracer Powder Blender: Olinde. De Guzman Procedure: 1. Left palate [...] Last Updated: 01-Jan-2023 10:42 by Uriah Amador) [facility] Work Phone: 1(609) 822-325405-17-2023 [facility]05-17-2023 History and physical note* Anthony De Guzman [...] Last Updated: 01-Jan-2023 10:33 by Uriah Amador) [facility] Work Phone: 1(278) 988-701205-17-2023 History and physical note* Anthony De Guzman [...] 10:33 by Uriah Amador) documented [facility] Work Phone: 1(634) 661-340104-26-2023 [facility]04-21-2023 [facility]04-20-2023 [facility] 12-03-2022 [facility]04-19-2023 [facility]04-19-2023 Reason for referral (narrative)* Reason for Referral: [...] then re-inserted on 12/[address] Amador [facility]04-19-2023 [facility] Benitez [facility] December 01, 2022 4:58am Note Date/Time December 01, 2022 2:1 4am [facility] Medical Records Department [address] [place] [address] Emergency Department Summary 12/01/22 MR#: [id number] Acct: [id number] Name: BRENDON DAVID Rep #:[id number] : 1950 72 From: Doron Benitez MD [...] weak. His surgery was done up at [facility] in [place]. [facility] Medical History Benign essential hypertension COVID-19 CPAP (continuous positive airway pressure) dependence Diabetes DVT (deep venous thrombosis) DVT (deep venous thrombosis) HLD (hyperlipidemia) Hypertension Non-smoker Non-ST elevation [place] (NSTEMI) Sleep apnea Type II diabetes mellitus [...] % (Auto) 62.0 Lymph % (Auto) 24.7 [place] % (Auto) 8.7 Eos % (Auto) 3.1 [...] Restrictions/Additional Instructions: Follow-up with your physician at [facility] this morning as scheduled. Disposition Disposition: Home, Self Care What to do if you have Problems For any increased pain, shortness of breath, bleeding, nausea or vomiting, chestpain, or any unexpected problems, contact your Primary Care Provider. Call [facility] ([phone]) or report to the closest Emergency Room. Call 911 if necessary. 12/01/22 0458 <Electronically signed by Doron Benitez MD> Cosigner Signature (if applicable): CC: Dr. Key Jasso MD ~ Signed [facility] Work Phone: 1(871) 857-127404-04-2023 [facility]03-31-2023 [facility]03-30-2023 Reason for referral (narrative)* Reason for Referral: s/p Maxilla debridement, dental extraction #10-14, Right maxilla antrostomy and DHT on 11/13/2022 [facility]03-30-2023 [facility]03-30-2023 [facility]02-20-2023 History of Present illness Narrative* Natividad Rodriguez [...] Signs/Symptoms:osteomyelitis of maxilla COMPARISON: None. ACCESSION NUMBER(S): [id number] ORDERING CLINICIAN: NATIVIDAD RODRIGUEZ TECHNIQUE: Thin cut [...] Nuñez MD. This study was interpreted at [place], [place]. MACRO: None Signed by: Christopher Oconnell 06/19/2023 10:11 AM Dictation workstation: [id number] Assessment and Plan 72 yo man with a destructive process involving much of the left maxilla s/p maxillectomy, recon with serratus/rib free flap ct face w/o contrast 07-09: no obvious bony necrosis, maxillary sinus patent -well healed -has stopped abx for 6 months and doing well -I will be leaving /[facility], he will just follow up as needed if any issues arise Natividad Rodriguez MD documented in this [facility] Work Phone: 1(949) 401-433410-06-2022 Hospital Discharge instructionsAmbulatory Orders* 12 Lead EKG [[facility]] Time Frame: 05/22/22, Location: None Selected Additional Instructions [facility] 1(384) 881-921509-20-2021 History of Present illness Narrative* 72 yo [...] spot of clear fluid fromthe neck periodically [facility]yumpfjw-[facility]rt[facility] Work Phone: 1(806) 399-704809-18-2021 History of Present illness Narrative* 72 yo [...] spot of clear fluid fromthe neck periodically RQ-Spvxmnpjskpjti-IbcvicyRed [facility] 4100 Work Phone: Chief complaint Narrative - ReportedBRENDON DAVID is being seen for a cardiovascular evaluation . For surgical clearance. ZI-Yknlcrzg-ZlgukwgRed River Behavioral [facility] [address] Work Phone: Evaluation noteNo assessment information available [facility] Work Phone: Evaluation note* Diagnosis Onset Date Resolution Status Hypertrophy of inferior nasal turbinate acute Nasal congestion acute Nasal septal deviation acute Chronic pansinusitis chronic [facility] Work Phone: Evaluation note* Diagnosis Inflammatory conditions of jaws documented in this encounter [facility] Work Phone: Evaluation note* Diagnosis Osteomyelitis of maxilla- Primary documented in this encounter [facility] Work Phone: Evaluation note* Diagnosis Other symptoms and signs involving the musculoskeletal system Inflammatory conditions of jaws Old myocardial infarction Hyperlipidemia, unspecified Obstructive sleep apnea (adult) (pediatric) Chronic kidney disease, unspecified Hypertensive chronic kidney disease with stage 1 through stage 4 chronic kidney disease, or unspecified chronic kidney disease Gastro-esophageal reflux disease without esophagitis Type 2 diabetes mellitus with diabetic chronic kidney disease ([facility]) Obesity, unspecified Personal history of other venous thrombosis and embolism 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 Long-term (current) use of anticoagulants Unspecified osteoarthritis, unspecified site Spinal stenosis, lumbar region without neurogenic claudication Unspecified visual loss Chronic sinusitis, unspecified Personal history of COVID-19 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 drugs documented in this encounter [facility] Work Phone: Evaluation note* Diagnosis Osteomyelitis of maxilla- Primary documented in this encounter [facility] Work Phone: Evaluation note* Diagnosis Actinomycosis, 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 documented in this encounter [facility] Work Phone: Evaluation note* Diagnosis Osteomyelitis of maxilla- Primary Actinomycosis, cervicofacial Cervicofacial actinomycotic infection documented in this encounter [facility] Work Phone: Evaluation note* Diagnosis Actinomycosis, cervicofacial- Primary Cervicofacial actinomycotic infection documented in this encounter [facility] Work Phone: Evaluation note* Diagnosis History of osteomyelitis- Primary Personal history of other musculoskeletal disorders documented in this encounter [facility] Work Phone: History of Present illness Narrative* [...] Moves all extremities well without apparent deformities. AD-Gftaoppaaxdpqc-KsyjwedSt. [facility] 4100 Work Phone: History of Present illness [...] with instrumentation * patient tolerated this well ZV-Eihyrgpdiwgyek-Fgcpj 395 Work Phone: History of Present illness Narrative* He is here for surgical clearance for ENT surgery. * He denies fatigue, chest pain, palpitations, shortness of breath, dyspnea on exertion, orthopnea, PND, frequent headaches, dizziness, falls. * No edema noted in BLE. * EKG was completed today at [facility]. * PMHx: HTN, GERD, DVT GL-Dylinsbs-NkkelyjSt. [facility] [address] Work Phone: History of Present [...] with instrumentation * patient tolerated this well FJ-Drervnltezabeo-LzfcllbSt. Luke'[facility] 4100 Work Phone: History of Present illness [...] with instrumentation * patient tolerated this well GO-Nuwlftksddkjaf-ZjsgweqSt. Luke'[facility] 4100 Work Phone: History of Present illness [...] CN II-XII grossly intact. No focal deficits. IU-Mczsqqtxpzitmp-YtmtwwoSt. Luke'S Hospital 4100 Work Phone: History of Present illness [...] CN II-XII grossly intact. No focal deficits. YF-Pbldzvhhzfsxno-ImoppatSt. Luke'S Hospital 4100 Work Phone: History of Present illness [...] CN II-XII grossly intact. No focal deficits. QW-Ehoeocbmaqqfjx-LjcycybSt. Luke'S Hospital 4100 Work Phone: History of Present illness [...] CN II-XII grossly intact. No focal deficits. YK-Iozctegbqbwpqr-McfgdeySt. [facility]'S Hospital 8566 Work Phone: History of Present illness Narrative* [...] January 13 8:40 AM [facility] Work Phone: History of Present illness Narrative* [...] January 13 8:40 AM documented [facility] Work Phone: Hospital Discharge instructions* Activity:activity as [...] To: Dr. Dickson in ID office at [phone] * Additional Orders:Weight: weekly * Call Provider [...] to Face Encounter Completed: yesDate of Encounter: [id number] Necessity for Homecare(based on clinical findings): My clinical findings support the need for the following skilled services: Patient needs Mcfp/RN needed to instruct patient/caregiver to perform wound care dressing changes and to monitor for signs and symptoms of infection or adverse effects; Mcfp/RN needed to instruct patient/caregiver to perform daily [...] Referral: post opvisitScheduled Date/Time: 25-Nov-2022 14:45Location: [address] [facility] [address] [employer] [facility] [address] [place], [place] [address]Bccyw Number: [phone] with questionsComments: Please arrive 10-15 minutes early, bring photo ID, insurance information, and current list of medications. If unable to keep this appointment, please call to cancel at least 24 hours prior to appointment. * Follow Up Appointment 2:Physician/Dept/Service: Dr. Sadia Dickson - Infectious DiseaseReason for Referral: Hospital follow upScheduled Date/Time: 02-Jan-2023 10:20Location: [facility] [address] [address] [place], [place] [address]Fzljpqft: Please arrive 10-15 minutes early, bring photo [...] continuous infusions. 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 Line Site: LeftHomecare ONLY Lines: [facility] Additional Instructions Follow-up with your physician at [facility] this morning as scheduled. [facility] Work Phone: Hospital Discharge instructions* [...] CRPDate To Be Drawn: weeklyFax Results To: [phone] attn: Dr. Dickson * Wound Care 1:Wound [...] Certification:Home Care Services Needed: yesSkilled Disciplines Ordered: RN/PHOTOGRAPH ENLARGER, PT, OTFace to Face Encounter Completed: yesDate of Encounter: [id number] Necessity for Homecare (based on clinical findings): My clinical findings support the need for the following skilled services: Patient needs Physical Therapist to improve deconditioning, and to restore the ability to walk without support; Mcfp/RN needed to instruct patient/caregiver to perform wound care; Mcfp/RN needed to instruct patient/caregiver to perform daily [...] Referral: Post opflap checkScheduled Date/Time: 15-Dec-2022 12:30Location: [facility] [address]: [phone] with questionsComments: Please arrive 10-15minutes early, bring photo ID, insurance information, and current list of medications. If unable tokeep this appointment, please call to cancel at least 24 hours prior to appointment. * Follow Up Appointment 2:Physician/Dept/Service: Dr. Natividad Fields for Referral: post op visitScheduled Date/Time: 26-Dec-2022 13:15Location: [facility] [address] [address] [place], [place] [address]Kabfz Number: [phone] with questionsComments: Please arrive 10-15 mi nutes early, bring photo ID, insurance information, and current list of medications. If unable to keep this appointment, please call to cancel at least 24 hours prior to appointment. * Follow Up Appointment 3:Physician/Dept/Service: Coumadin ClinicComments: Please arrange an appointment with your coumadin clinic for Thursday. * Coumadin (Warfarin) Follow-Up Monitoring:Follow-Up Monitoring Locations (Clinic): [facility] [address], [address] [address] [facility]The [facility], [address], phone: [phone] #2 * PEG Tube Care:PEG Tube Care: [...] continuous infusions. 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 Line Site: LeftHomecare ONLY Lines: Adult [facility] CenterReason for referral (narrative)No reason for referral information availableWShelby Memorial Hospital Work Phone: Chief Complaint and Reason [...] Will No May 20 9:43am Power of Fly Maker No May 20 021 9:43am Advance Directive Response Recorded Date/ Time Living Will No May 20 9:05am Power of Fly Maker No May 20 022 9:05am Advance Directive Response Recorded Date/ Time Living Will No May 20 8:05am Power of Fly Maker No May 20 8:05am Advance Directive Response Recorded Date/ Time Living Will No December 01, 2022 12:22am Power of Fly Maker No December 01 12:22am Advance Directive Response Recorded Date/ Time Living Will No November 30, 2022 11:22pm Power of Fly Maker No November 30 11:22pm Chief Complaint removed left chest wall drainFUVFUVfollow upfollow up Summary Purpose Reason for Referral Specialty Diagnoses / Procedures Referred By Contac t Referred To Contact Radiology Diagnoses Inflammatory conditions of jaws Procedures CT maxillofacial bones wo IV contrast CT maxillofacial bones w IV contrast CT maxillofacial bones w [place] [address] [place] [address] Referral ID Status Reason Start Date Expiration Date Visits Requested Visits Authorized [id number] Authorized Perform Procedure 05/15/2023 11/11/2023 1 1 [...] Active Dr. Rubens Sutherland MD Attending Provider, [facility] Provider Active Team Status: Inactive Member Role [...] Primary Care Provider, Attending P eris Active Network Architect Manager Relationship Specialty Start Date End Date Key Jasso MD [address] [place] [address] PCP - General 11/12/22 Network Architect Manager Relationship Specialty Start Date End Date Key Jasso MD [address] [place] [address] PCP - General 11/12/22 Network Architect Manager Relationship Specialty Start Date End Date Key Jasso MD [address] [place] [address] PCP - General 11/12/22 Team Status: Inactive Member Role Status Dates Dr. Key Jasso MD Primary Care Provide r, Attending Provider, Referring Provider Active Dr. Silas Garcia MD Other Provider Active Network Architect Manager Relationship Specialty Start Date End Date Key Jasso MD [address] [place] [address] PCP - General 11/12/22 Network Architect Manager Relationship Specialty Start Date End Date Key Jasso MD [address] [place] [address] PCP - General 11/12/22 Network Architect Manager Relationship Specialty Start Date End Date Key Jasso MD [address] [place] [address] PCP - General 11/12/22 Network Architect Manager Relationship Specialty Start Date End Date Key Jasso MD [address] [place] [address] PCP - General 11/12/22 Team Status: Active [...] section and content) DATE CREATED AUTHOR 12/24/2022 [facility] DATE CREATED AUTHOR AUTHOR'S ORGANIZ ATION 05/05/2023 [facility] DATE CREATED AUTHOR AUTHOR'S ORGANIZ ATION 05/05/2023 [employer] DATE CREATED AUTHOR AUTHOR'S ORGANIZ ATION 07/07/2023 [facility] DATE CREATED AUTHOR AUTHOR'S ORGANIZ ATION 07/03/2024 [facility] DATE CREATED AUTHOR AUTHOR'S ORGANIZ ATION 10/04/2024 [facility] DATE CREATED AUTHOR AUTHOR'S ORGANIZ ATION [facility] Reason for Visit (unrecogniz ed section and content) Specialty Diagnoses / Procedures Referred By Contac t Referred To Contact Radiology Diagnoses Inflammatory conditions of jaws Procedures CT maxillofacial bones wo IV contrast CT maxillofacial bones w IV contrast CT maxillofacial bones w [place] [address] [place] [address] Referral ID Status Reason Start Date Expiration Date Visits Requested Visits Authorized [id number] Authorized Perform Procedure 05/15/2023 11/11/2023 1 1 [...] BE BASED ON THE PRIMARY CLINICAL RECORDS. [employer] provides no warranty or guarantee of the accuracy or completeness of information in this document.
--- OUTSIDE RECORDS SUMMARY | 2025-06-03 20:58 | XMS RPT_ITS | CCD ---
Author Organization [facility] Care Team Providers Care Shift Coordinator Name Role Phone Unknown, Unknown Unavailable Unavailable [...] Dr. Key Jasso Primary Care Unavailable Timo, [place] Attending Unavailable Timo, [place] Admitting Unavailable Timo, [place] Referring Unavailable UNKNOWN, PCP Referring Unavailable Dr. Key Jasso Primary Care Unavailable NATIVIDAD RODRIGUEZ Attending Unavailable NATIVIDAD RODRIGUEZ Admitting Unavailable Dr. Key Jasso Primary Care Unavailable Timo, [place] Attending Unavailable Timo, [place] Admitting Unavailable Timo, [place] Referring Unavailable NATIVIDAD RODRIGUEZ Attending Unavailable Dr. Key Jasso Primary Care Unavailable Timo, Uriah Attending Unavailable UNKNOWN, UNKNOWN Primary Care Unavailable Dr. Key Jasso Primary Care Unavailable NATIVIDAD RODRIGUEZ Attending Unavailable Dr. Key Jasso Primary Care Unavailable Dr. Key Jasso Referring Unavailable Timo, [place] Attending Unavailable Timo, Uriah Attending Unavailable UNKNOWN, UNKNOWN Primary Care Unavailable NATIVIDAD RODRIGUEZ Referring Unavailable Dr. Key Jasso Primary Care Unavailable Dr. Sadia Dickson Attending Unav ailable Romero, Dr. Key Das Primary Care Unavailable Skip, Dr. Sadia Cabrera Referring Unav elsyable Skip, Dr. Sadia Cabrera Attending Unav elsyable Romero, Dr. Giraldo A Primary Care Unavailable Timo, Uriah Attending Unavailable Timo, [place] Referring Unavailable Romero, Dr. Key aDs Referring Unavailable Romero, Dr. Key Das Primary [...] ON FILE] Propensity to adverse reactions (disorder) [facility] 2 Repository Medications Current Medications Medication [...] Start: 11-12-2016 take 50-100 mg by mo [facility] three times daily at mealtime Acarbose [...] - .Meds to Beds - .Patient Location [place] [address] Quantity: 30 Refills: 0 Ordered: 09-Dec-2022 Cathie [...] - .Meds to Beds - .Patient Location [place] [address]; Quantity: 30 Refills: 0 Ordered: 09-Dec-2022 Cathie [...] prescribed may cause serious breathing problems. Caution [employer] law prohibits the transfer of this drug [...] - .Meds to Beds - .Patient Location [place] [address] Quantity: 1 Refills: 0 Ordered: 09-Dec-2022 Cathie [...] (14 mg) by mouth. 05/25/2023 Active sennosides, halfway 8.6 mg oral tablet (2 sources) Start: 12-09-2022 senna (sennosi kalen) 8.6 mg oral tablet ; 1 tab(s) by gastrostomy tube once a day (at bedtime) -. - .Meds to Beds - .Patient Location [place] [address] Quantity: 15 Refills: 0 Ordered: 09-Dec-2022 Cathie Gregory Start: 09-Dec-2022 Generic Substitution Allowed sodium chloride 0.111 meq/ml nasal spray (7 sources) Start: 12-09-2022 Animas 0.65% na ashley spray ; 2 spray(s) intranasally 4 to 6 times a day -.ADOD12/10 - .Meds to Beds - .Patient Location [place] [address] Quantity: 1 Refills: 2 Ordered: 09-Dec-2022 Cathie Gregory Start: 09-Dec-2022 Generic Substitution Allowed Comments: For the nose. 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] 01-07-2023 Episodic Other aftercare (1 source) Long-term current use of aspirin; 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: [assisted (current) use of aspirin] 01-07-2023 Episodic Other aftercare (1 source) Long-term current use of oral hypoglycemic medication; 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: [assistant terminal manager (current) use of oral hypoglycemic drugs] 01-07-2023 [...] 05-23-2021 Episodic Other skin disorders (18 sources) Coram - lesion ; 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: [Corns and callosities] [...] Chronic Unclassified (2 sources) MAXILLA DEBRIDEMENT M27.2 [id number] 11-10-2022 Comment on above: MAXILLA DEBRIDEMENT M27.2 09877 Unclassified (2 sources) Body mass index [BMI] [...] Onset: 11-24-2024 Episodic Other aftercare (1 source) assisted (current) use of anticoagulants; 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: [assistant terminal manager (current) use of anticoagulants] Onset: 12-31-2022 Episodic Other aftercare (1 source) assisted (current) use of oral hypoglycemic drugs; 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: [assistant terminal manager (current) use of oral hypoglycemic drugs] Onset: 12-31-2022 Episodic Other aftercare (1 source) assistant terminal manager (current) use of aspirin; 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: [assistant terminal manager (current) use of aspirin] Onset: 12-31-2022 Episodic Other aftercare (1 source) 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; 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: [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] Onset: 11-12-2022 Episodic Other [...] Auto (Unsp spec) [#/Vol] 1.16 10*3/uL 0.83-4.51 [facility] Absolute neutrophil countOrd ered By: Key Jasos on 03-17-2025 Neutrophils (Bld) [#/Vol] 7.6 10*3/uL 2.0-7.7 [facility] Anion gap in Serum or Plasma Ordered By: Key Jasso on 03-17-2025 Anion gap [Moles/Vol] 12 mmol/L 5-15 [facility] Automated lymphocyte count a s percentage of total leukocytesOrdered By: Key Jasso on 03-17-2025 Lymphocytes/100 WBC Auto (Unsp spec) 12.0 % Low 19-41 [facility] BUN/creatinine ratioOrdered By: Key Jasso on 03-17-2025 Urea nitrogen/Creatinine [Mass ratio] 22.0 mg/mg High 10-20 [facility] Basophil percentageOrdered B y: Key Jasso on 03-17-2025 Basophils/100 WBC (Bld) 0.4 % 0-1 [facility] Bilirubin, totalOrdered By: Key Jasso on 03-17-2025 Bilirubin [Mass/Vol] 0.46 mg/dL 0.00-1.30 [facility] CBC W/Diff, Automatedon Absolute Lymph 1.16 X10 3/uL Normal 0.83-4.51 [facility] Comment on above: Order Comment: Order Date: 03/14/25Order Info: 018- - CBCD Performed By: #### L 500.4050, L501.9985, L100.0100 ####[facility] [address] [place], [address] Absolute Neut 7.6 X10 3/uL Normal 2.0-7.7 [facility] Comment on above: Order Comment: Order Date: 03/14/25Order Info: 0184- - CBCD Performed By: #### L 500.4050, L501.9985, L100.0100 ####[facility] [address] [place], [address] Basophils/100 WBC (Bld) 0.4 % Normal 0-1 [facility] Comment on above: Order Comment: Order Date: 03/14/25Order Info: 0184-1 - CBCD Performed By: #### L 500.4050, L501.9985, L100.0100 ####[facility] [address] [place], [address] Eosinophils/100 WBC (Bld) 0.4 % Normal 0-5 [facility] Comment on above: Order Comment: Order Date: 03/14/25Order Info: 0184-1 - CBCD Performed By: #### L 500.4050, L501.9985, L100.0100 ####[facility] [address] [place], [address] Erythrocyte distribution width (RBC) [Ratio] 14.6 % Normal 11.6-14.6 [facility] Comment on above: Order Comment: Order Date: 03/14/25Order Info: 0184-1 - CBCD Performed By: #### L 500.4050, L501.9985, L100.0100 ####[facility] [address] [place], [address] Hematocrit (Bld) [Volume fraction] 44.4 % Normal 40-54 [facility] Comment on above: Order Comment: Order Date: 03/14/25Order Info: 0184-1 - CBCD Performed By: #### L 500.4050, L501.9985, L100.0100 ####[facility] [address] [place], [address] Hemoglobin (Bld) [Mass/Vol] 14.7 g/dL Normal 13.0-16.5 [facility] Comment on above: Order Comment: Order Date: 03/14/25Order Info: 0184-1 - CBCD Performed By: #### L 500.4050, L501.9985, L100.0100 ####[facility] [address] [place], [address] IG% 1.400 High 0.0-0.9 [facility] Comment on above: Order Comment: Order Date: 03/14/25Order Info: 0184-1 - CBCD Result Comment: IG% - Immature Granulocytes (promyelocytes, myelocytes and metamyelocytes) > 1% indicates that a LEFT SHIFT is Present. Performed By: #### L 500.4050, L501.9985, L100.0100 ####[facility] [address] [place], [address] Lymphocytes/100 WBC (Bld) 12.0 % Low 19-41 [facility] Comment on above: Order Comment: Order Date: 03/14/25Order Info: 0184-1 - CBCD Performed By: #### L 500.4050, L501.9985, L100.0100 ####[facility] [address] [place], [address] MCH (RBC) [Entitic mass] 31.6 pg Normal 27.0-32.0 [facility] Comment on above: Order Comment: Order Date: 03/14/25Order Info: 4-1 - CBCD Performed By: #### L 500.4050, L501.9985, L100.0100 ####[facility] [address] [place], [address] MCHC (RBC) [Mass/Vol] 33.1 g/dL Normal 32-36 [facility] Comment on above: Order Comment: Order Date: 03/14/25Order Info: 183- - CBCD Performed By: #### L 500.4050, L501.9985, L100.0100 ####[facility] [address] [place], [address] MCV (RBC) [Entitic vol] 95.5 fL High 80-94 [facility] Comment on above: Order Comment: Order Date: 03/14/25Order Info: 183- - CBCD Performed By: #### L 500.4050, L501.9985, L100.0100 ####[facility] [address] [place], [address] Monocytes/100 WBC (Bld) 6.9 % Normal 0-10 [facility] Comment on above: Order Comment: Order Date: 03/14/25Order Info: 018- - CBCD Performed By: #### L 500.4050, L501.9985, L100.0100 ####[facility] [address] [place], [address] Neutrophils/100 WBC (Bld) 78.9 % High 47-70 [facility] Comment on above: Order Comment: Order Date: 03/14/25Order Info: 0184-1 - CBCD Performed By: #### L 500.4050, L501.9985, L100.0100 ####[facility] [address] [place], [address] Nucleated RBC (Bld) [#/Vol] 0 10*3/uL Normal 0-5 [facility] Comment on above: Order Comment: Order Date: 03/14/25Order Info: 0184-1 - CBCD Performed By: #### L 500.4050, L501.9985, L100.0100 ####[facility] [address] [place], [address] Platelet mean volume (Bld) [Entitic vol] 9.8 fL Normal 6.2-12.0 [facility] Comment on above: Order Comment: Order Date: 03/14/25Order Info: 018- - CBCD Performed By: #### L 500.4050, L501.9985, L100.0100 ####[facility] [address] [place], [address] Platelets (Bld) [#/Vol] 330 10*3/uL Normal 150-450 [facility] Comment on above: Order Comment: Order Date: 03/14/25Order Info: 018- - CBCD Performed By: #### L 500.4050, L501.9985, L100.0100 ####[facility] [address] [place], [address] RBC (Bld) [#/Vol] 4.65 10*6/uL Normal 4.6-6.2 [facility] Comment on above: Order Comment: Order Date: 03/14/25Order Info: 0184-1 - CBCD Performed By: #### L 500.4050, L501.9985, L100.0100 ####[facility] [address] [place], [address] RDW SD 51.4 fl High 35.1-43.9 [facility] Comment on above: Order Comment: Order Date: 03/14/25Order Info: 018-1 - CBCD Performed By: #### L 500.4050, L501.9985, L100.0100 ####[facility] [address] [place], [address] WBC (Bld) [#/Vol] 9.7 10*3/uL Normal 4.4-11.0 [facility] Comment on above: Order Comment: Order Date: 03/14/25Order Info: 018-1 - CBCD Performed By: #### L 500.4050, L501.9985, L100.0100 ####[facility] [address] [place], [address] Carbon dioxide, total [Moles /volume] in Central venous bloodOrdered By: Key Jasso on 03-17-2025 CO2 [Moles/Vol] 22.1 mmol/L 21.0-32.0 [facility] Chloride assayOrdered By: Torito Jasso on 03-17-2025 Chloride [Moles/Vol] 102 mmol/L 98-108 [facility] Comprehensive Metabolic Prof ilon 03-17-2025 Albumin [Mass/Vol] 4.0 g/dL Normal 3.4-4.8 [facility] Comment on above: Order Comment: Order Date: 03/14/25Order Info: 0786-1 - CMPOrder Info: 3051-0 - D1DWrlll Info: 3016-3 - TSHOrder Info: 3024-7 - T4F Performed By: #### L 500.4050, L501.9985, L100.0100 ####[facility] [address] [place], [address] Albumin/Globulin [Mass ratio] 1.4 {ratio} Normal 0.9-2.4 [facility] Comment on above: Order Comment: Order Date: 03/14/25Order Info: 0786-1 - CMPOrder Info: 3051-0 - H9PXyeij Info: 3016-3 - TSHOrder Info: 3024-7 - T4F Performed By: #### L 500.4050, L501.9985, L100.0100 ####[facility] [address] [place], [address] ALK PHOS 57 U/L Normal 40-129 [facility] Comment on above: Order Comment: Order Date: 03/14/25Order Info: 0786-1 - CMPOrder Info: 3051-0 - E0CCuxnl Info: 3016-3 - TSHOrder Info: 3024-7 - T4F Performed By: #### L 500.4050, L501.9985, L100.0100 ####[facility] [address] [place], [address] ALT [Catalytic activity/Vol] 17 U/L Normal <=46 [facility] Comment on above: Order Comment: Order Date: 03/14/25Order Info: 07-1 - CMPOrder Info: 3051-0 - R5XItvca Info: 63 - TSHOrder Info: 3024-7 - T4F Performed By: #### L 500.4050, L501.9985, L100.0100 ####[facility] [address] [place], [address] AST [Catalytic activity/Vol] 20 U/L Normal <=37 [facility] Comment on above: Order Comment: Order Date: 03/14/25Order Info: 0786-1 - CMPOrder Info: 1-0 - H0YRxpfp Info: 3016-3 - TSHOrder Info: 3024-7 - T4F Performed By: #### L 500.4050, L501.9985, L100.0100 ####[facility] [address] [place], [address] Bilirubin [Mass/Vol] 0.46 mg/dL Normal 0.00-1.30 [facility] Comment on above: Order Comment: Order Date: 03/14/25Order Info: 0786-1 - CMPOrder Info: 3051-0 - H5RYdcbz Info: 3016-3 - TSHOrder Info: 3024-7 - T4F Performed By: #### L 500.4050, L501.9985, L100.0100 ####[facility] [address] [place], [address] BUN/CRE 22.0 RATIO High 10-20 [facility] Comment on above: Order Comment: Order Date: 03/14/25Order Info: 0786-1 - CMPOrder Info: 3051-0 - A2TTenws Info: 3016-3 - TSHOrder Info: 3024-7 - T4F Performed By: #### L 500.4050, L501.9985, L100.0100 ####[facility] [address] [place], [address] Calcium [Mass/Vol] 9.6 mg/dL Normal 7.6-11.0 [facility] Comment on above: Order Comment: Order Date: 03/14/25Order Info: 0786-1 - CMPOrder Info: 3051-0 - E8LCdluc Info: 3016-3 - TSHOrder Info: 3024-7 - T4F Performed By: #### L 500.4050, L501.9985, L100.0100 ####[facility] [address] [place], [address] Chloride [Moles/Vol] 102 mmol/L Normal 98-108 [facility] Comment on above: Order Comment: Order Date: 03/14/25Order Info: 0786-1 - CMPOrder Info: 3051-0 - T6RBfceh Info: 3016-3 - TSHOrder Info: 3024-7 - T4F Performed By: #### L 500.4050, L501.9985, L100.0100 ####[facility] [address] [place], [address] CO2 [Moles/Vol] 22.1 mmol/L Normal 21.0-32.0 [facility] Comment on above: Order Comment: Order Date: 03/14/25Order Info: 07-1 - CMPOrder Info: 3050-0 - L9QBfqnt Info: 3 - TSHOrder Info: 3027 - T4F Performed By: #### L 500.4050, L501.9985, L100.0100 ####[facility] [address] [place], [place], [address] Creatinine [Mass/Vol] 1.90 mg/dL High 0.70-1.20 [facility] Comment on above: Order Comment: Order Date: 03/14/25Order Info: 07-1 - CMPOrder Info: 0 - V9EJnwdj Info: 3 - TSHOrder Info: 7 - T4F Performed By: #### L 500.4050, L501.9985, L100.0100 ####[facility] [address] [place], [place], [address] GAP 12 Normal 5-15 [facility] Comment on above: Order Comment: Order Date: 03/14/25Order Info: 07- - CMPOrder Info: 0 - Y1KUeoho Info: 3015-10 - TSHOrder Info: 7 - T4F Performed By: #### L 500.4050, L501.9985, L100.0100 ####[facility] [address] [place], [place], [address] GFR/1.73 sq M.predicted among non-blacks MDRD (S/P/Bld) [Vol rate/Area] 37 mL/min/{1.73_m2} Low >60 [facility] Comment on above: Order Comment: Order Date: 03/14/25Order Info: 0786-1 - CMPOrder Info: 3051-0 - E4FWynmq Info: 30163 - TSHOrder Info: 30247 - T4F Result Comment: mL/m in/1.73m2 CKD-EPI Creatinine Equation (2020) Performed By: #### L 500.4050, L501.9985, L100.0100 ####[facility] [address] [place], [address] Globulin (S) [Mass/Vol] 2.9 g/dL Normal 2.2-4.2 [facility] Comment on above: Order Comment: Order Date: 03/14/25Order Info: 0786-1 - CMPOrder Info: 3051-0 - M7TGvqyo Info: 3015-3 - TSHOrder Info: 3024-7 - T4F Performed By: #### L 500.4050, L501.9985, L100.0100 ####[facility] [address] [place], [address] Glucose [Mass/Vol] 79 mg/dL Normal 70-99 [facility] Comment on above: Order Comment: Order Date: 03/14/25Order Info: 0786-1 - CMPOrder Info: 3050-0 - N4LCaldc Info: 3 - TSHOrder Info: 3024-7 - T4F Performed By: #### L 500.4050, L501.9985, L100.0100 ####[facility] [address] [place], [address] Potassium [Moles/Vol] 4.3 mmol/L Normal 3.3-5.1 [facility] Comment on above: Order Comment: Order Date: 03/14/25Order Info: 0786-1 - CMPOrder Info: 0 - H2HSxicq Info: 3016-3 - TSHOrder Info: 3024-7 - T4F Performed By: #### L 500.4050, L501.9985, L100.0100 ####[facility] [address] [place], [address] Sodium [Moles/Vol] 136 mmol/L Normal 133-145 [facility] Comment on above: Order Comment: Order Date: 03/14/25Order Info: 0786-1 - CMPOrder Info: 3051-0 - T2ZIixpt Info: 3016-3 - TSHOrder Info: 3024-7 - T4F Performed By: #### L 500.4050, L501.9985, L100.0100 ####[facility] [address] [place], [address] T PROT 6.9 g/dL Normal 5.9-8.4 [facility] Comment on above: Order Comment: Order Date: 03/14/25Order Info: 0786-1 - CMPOrder Info: 0 - R9RIwsjx Info: 3015-10 - TSHOrder Info: 7 - T4F Performed By: #### L 500.4050, L501.9985, L100.0100 ####[facility] [address] [place], [address] Urea nitrogen [Mass/Vol] 42 mg/dL High 4-19 [facility] Comment on above: Order Comment: Order Date: 03/14/25Order Info: 785-08 - CMPOrder Info: 0 - H0LGfdse Info: 3015-10 - TSHOrder Info: 7 - T4F Performed By: #### L 500.4050, L501.9985, L100.0100 ####[facility] [address] [place], [place], [address] Eosinophil percentageOrdered By: Key Jasso on 03-17-2025 Eosinophils/100 WBC (Bld) 0.4 % 0-5 [facility] Erythrocyte distribution wid th ratioOrdered By: Key Jasso on 03-17-2025 Erythrocyte distribution width (RBC) [Ratio] 14.6 % 11.6-14.6 [facility] Erythrocyte distribution wid th standard deviationOrdered By: Key Jasso on 03-17-2025 Erythrocyte distribution width (RBC) [Ratio] 51.4 fl High 35.1-43.9 [facility] Free T3on 03-17-2025 Free T3 [Mass/Vol] 1.7 pg/mL Low 2.18-3.98 [facility] Comment on above: Order Comment: Order Date: 03/14/25Order Info: 0786-1 - CMPOrder Info: 0 - F5JLtrma Info: 3015-10 - TSHOrder Info: 7 - T4F Performed By: #### L 506.0400, L501.67887, L501.9520 ####[facility] [address] [place], [place], [address] Free M8Ygngvjk By: Key stack on 03-17-2025 Free T3 [Mass/Vol] 1.7 pg/mL Low 2.18-3.98 [facility] Glomerular filtration rate ( GFR) estimation/1.73 sq m using serum, plasma, or whole bOrdered By: Key Jasso on 03-17-2025 GFR/1.73 sq M.predicted among non-blacks MDRD (S/P/Bld) [Vol rate/Area] 37 mL/min/{1.73_m2} Low >60 [facility] Comment on above: mL/min/1.73m2 CKD-EP I Creatinine Equation (2020) Hematocrit Auto (Bld) [Volum e fraction]Ordered By: Key Jasso on 03-17-2025 Hematocrit (Bld) [Volume fraction] 44.4 % 40-54 [facility] Hemoglobin A1con 03-17-2025 HbA1c (Bld) [Mass fraction] 6.8 % High <=5.6 [facility] Comment on above: Order Comment: Order Date: 03/14/25Order Info: 4548-4 - A1C Result Comment: Norm al < 5.7 % Prediabetic 5.7 - 6.4 % Diabetic >or= 6.5 % Please note range changes. Performed By: #### L 500.4050, L501.9985, L100.0100 ####[facility] [address] [place], [place], [address] Hemoglobin A1c percentageOrd ered By: Key Jasso on 03-17-2025 HbA1c (Bld) [Mass fraction] 6.8 % High <5.7 [facility] Comment on above: Normal < 5.7 % Predi abetic 5.7 - 6.4 % Diabetic >or= 6.5 % Please note range changes. Hemoglobin measurementOrdere d By: Key Jasso on 03-17-2025 Hemoglobin (Bld) [Mass/Vol] 14.7 g/dL 13.0-16.5 [facility] Immature granulocytes/100 WB C Auto (Bld)Ordered By: Key Jasso on 03-17-2025 Immature granulocytes/100 WBC (Bld) 1.400 % High 0.0-0.9 [facility] Comment on above: IG% - Immature Granu locytes (promyelocytes, myelocytes and metamyelocytes) > 1% indicates that a LEFT SHIFT is Present. Laboratory - Chemistry and C hemistry - challengeOrdered By: Key Jasso on 03-17-2025 AST [Catalytic activity/Vol] 20 U/L <38 [facility] MCV (mean corpuscular volume ) determinationOrdered By: Key Jasso on 03-17-2025 MCV (RBC) [Entitic vol] 95.5 fL High 80-94 [facility] Mean corpuscular hemoglobin (MCH) determinationOrdered By: Key Jasso on 03-17-2025 MCH (RBC) [Entitic mass] 31.6 pg 27.0-32.0 [facility] Mean corpuscular hemoglobin concentration (MCHC) determinationOrdered By: Key Jasso on 03-17-2025 MCHC (RBC) [Mass/Vol] 33.1 g/dL 32-36 [facility] Mean platelet volume determi nationOrdered By: Key Jasso on 03-17-2025 Platelet mean volume (Bld) [Entitic vol] 9.8 fL 6.2-12.0 [facility] Monocyte percentageOrdered B y: Key Jasso on 03-17-2025 Monocytes/100 WBC (Bld) 6.9 % 0-10 [facility] Neutrophil percentageOrdered By: Key Jasso on 03-17-2025 Neutrophils/100 WBC (Bld) 78.9 % High 47-70 [facility] Nucleated red blood cell per centageOrdered By: Key Jasso on 03-17-2025 Nucleated RBC/100 WBC (Bld) [Ratio] 0 % 0-5 [facility] Platelet countOrdered By: Torito Jasso on 03-17-2025 Platelets (Bld) [#/Vol] 330 10*3/uL 150-450 [facility] Potassium measurement (mass/ volume)Ordered By: Key Jasso on 03-17-2025 Potassium (Unsp spec) [Mass/Vol] 4.3 mmol/L 3.3-5.1 [facility] RBC Auto (Bld) [#/Vol]Ordere d By: Key Jasso on 03-17-2025 RBC (Bld) [#/Vol] 4.65 10*6/uL 4.6-6.2 [facility] Serum creatinine measurement (mass/volume)Ordered By: Key Jasso on 03-17-2025 Creatinine [Mass/Vol] 1.90 mg/dL High 0.70-1.20 [facility] Serum globulin measurementOr dered By: Key Jasso on 03-17-2025 Globulin (S) [Mass/Vol] 2.9 g/dL 2.2-4.2 [facility] Serum glucose measurement (m ass/volume)Ordered By: Key Jasso on 03-17-2025 Glucose [Mass/Vol] 79 mg/dL 70-99 [facility] Serum or plasma alanine nunez otransferase (ALT) measurementOrdered By: Key aJsso on 03-17-2025 ALT [Catalytic activity/Vol] 17 U/L <47 [facility] Serum or plasma albumin lisa urement (mass/volume)Ordered By: Key Jasso on 03-17-2025 Albumin [Mass/Vol] 4.0 g/dL 3.4-4.8 [facility] Serum or plasma albumin/glob ulin mass ratioOrdered By: Key Jasso on 03-17-2025 Albumin/Globulin [Mass ratio] 1.4 {ratio} 0.9-2.4 [facility] Serum or plasma alkaline kacy sphatase measurementOrdered By: Key Jasso on 03-17-2025 ALP [Catalytic activity/Vol] 57 U/L 40-129 [facility] Serum or plasma calcium lisa urement (mass/volume)Ordered By: Key Jasso on 03-17-2025 Calcium [Mass/Vol] 9.6 mg/dL 7.6-11.0 [facility] Serum or plasma urea nitroge n measurement (mass/volume)Ordered By: Key Jasso on 03-17-2025 Urea nitrogen [Mass/Vol] 42 mg/dL High 4-19 [facility] Sodium levelOrdered By: Key Jasso on 03-17-2025 Sodium [Moles/Vol] 136 mmol/L 133-145 [facility] T4 Free Directon 03-17-2025 T4 FREE DIRECT 0.90 ng/dL Normal 0.76-1.46 [facility] Comment on above: Order Comment: Order Date: 03/14/25Order Info: 0786-1 - CMPOrder Info: 0 - P2VXacsl Info: 3015-10 - TSHOrder Info: 3024-02 - T4F Performed By: #### L 506.0400, L501.17631, L501.9520 ####[facility] [address] [place], [address] T4 freeOrdered By: Key stack on 03-17-2025 Free T4 [Mass/Vol] 0.90 ng/dL 0.76-1.46 [facility] TSH DL <= 0.005 mIU/L QnOrde red By: Key Jasso on 03-17-2025 TSH Qn 7.660 uIU/mL High 0.300-4.200 [facility] Thyroid Stim Hormone (TSH)on 03-17-2025 TSH 7.660 uIU/mL High 0.300-4.200 [facility] Comment on above: Order Comment: Order Date: 03/14/25Order Info: 0786-1 - CMPOrder Info: 0 - R9WMhohd Info: 3015-10 - TSHOrder Info: 3024-02 - T4F Performed By: #### L 506.0400, L501.03413, L501.9520 ####[facility] [address] [place], [place], [address] Total proteinOrdered By: Colleen Jasso on 03-17-2025 Protein [Mass/Vol] 6.9 g/dL 5.9-8.4 [facility] White blood cell (WBC) count Ordered By: Key Jasso on 03-17-2025 WBC (Bld) [#/Vol] 9.7 10*3/uL 4.4-11.0 [facility] Microalb:Creat Ratio,Random URon 03-13-2025 MALB:CRE 31.4 mg/g CRE High <30 mg/g CRE [facility] Comment on above: Result Comment: AMENDED REPORT 03/13/251935 MALB:CREAT previously reported as: 313.9 mg/g CRE Performed By: #### L 502.0250, L100.0500, L500.4050 #### [facility] [address] [place], [address] Absolute lymphocyte countOrd ered By: Key Jasso on 03-07-2025 Lymphocytes Auto (Unsp spec) [#/Vol] 1.18 10*3/uL 0.83-4.51 [facility] Absolute neutrophil countOrd ered By: Key Jasso on 03-07-2025 Neutrophils (Bld) [#/Vol] 5.1 10*3/uL 2.0-7.7 [facility] Anion gap in Serum or Plasma Ordered By: Key Jasso on 03-07-2025 Anion gap [Moles/Vol] 13 mmol/L 5-15 [facility] Automated lymphocyte count a s percentage of total leukocytesOrdered By: Key Jasso on 03-07-2025 Lymphocytes/100 WBC Auto (Unsp spec) 16.9 % Low 19-41 [facility] BUN/creatinine ratioOrdered By: Key Jasso on 03-07-2025 Urea nitrogen/Creatinine [Mass ratio] 15.6 mg/mg 10-20 [facility] Basophil percentageOrdered B y: Key Jasso on 03-07-2025 Basophils/100 WBC (Bld) 0.4 % 0-1 [facility] Bilirubin, totalOrdered By: Key Jasso on 03-07-2025 Bilirubin [Mass/Vol] 0.40 mg/dL Normal 0.00-1.30 [facility] Comment on above: Order Comment: Order Date: 01/10/25Order Info: 0786-1 - CMPOrder Date: 07/11/24Order Info: 3016-3 - TSHStanding ORder Performed By: #### L 501.9520, L100.0100, L500.4050 ####[facility] [address] [place], [address] CBC W/Diff, Automatedon 07-2 -2024 Absolute Lymph 1.18 X10 3/uL Normal 0.83-4.51 [facility] Comment on above: Order Comment: Order Date: 07/11/24Order Info: 0184-1 - CBCD Performed By: #### L 501.9520, L100.0100, L500.4050 ####[facility] [address] [place], [address] Absolute Neut 5.1 X10 3/uL Normal 2.0-7.7 [facility] Comment on above: Order Comment: Order Date: 07/11/24Order Info: 0184-1 - CBCD Performed By: #### L 501.9520, L100.0100, L500.4050 ####[facility] [address] [place], [address] Basophils/100 WBC (Bld) 0.4 % Normal 0-1 [facility] Comment on above: Order Comment: Order Date: 07/11/24Order Info: 0184-1 - CBCD Performed By: #### L 501.9520, L100.0100, L500.4050 ####[facility] [address] [place], [address] Eosinophils/100 WBC (Bld) 1.4 % Normal 0-5 [facility] Comment on above: Order Comment: Order Date: 07/11/24Order Info: 0184-1 - CBCD Performed By: #### L 501.9520, L100.0100, L500.4050 ####[facility] [address] [place], [address] Erythrocyte distribution width (RBC) [Ratio] 15.0 % High 11.6-14.6 [facility] Comment on above: Order Comment: Order Date: 07/11/24Order Info: 0184-1 - CBCD Performed By: #### L 501.9520, L100.0100, L500.4050 ####[facility] [address] [place], [address] Hematocrit (Bld) [Volume fraction] 43.4 % Normal 40-54 [facility] Comment on above: Order Comment: Order Date: 07/11/24Order Info: 0184-1 - CBCD Performed By: #### L 501.9520, L100.0100, L500.4050 ####[facility] [address] [place], [address] Hemoglobin (Bld) [Mass/Vol] 14.3 g/dL Normal 13.0-16.5 [facility] Comment on above: Order Comment: Order Date: 07/11/24Order Info: 018- - CBCD Performed By: #### L 501.9520, L100.0100, L500.4050 ####[facility] [address] [place], [address] IG% 0.600 Normal 0.0-0.9 [facility] Comment on above: Order Comment: Order Date: 07/11/24Order Info: 018- - CBCD Result Comment: IG% - Immature Granulocytes (promyelocytes, myelocytes and metamyelocytes) > 1% indicates that a LEFT SHIFT is Present. Performed By: #### L 501.9520, L100.0100, L500.4050 ####[facility] [address] [place], [address] Lymphocytes/100 WBC (Bld) 16.9 % Low 19-41 [facility] Comment on above: Order Comment: Order Date: 07/11/24Order Info: 018-1 - CBCD Performed By: #### L 501.9520, L100.0100, L500.4050 ####[facility] [address] [place], [address] MCH (RBC) [Entitic mass] 31.4 pg Normal 27.0-32.0 [facility] Comment on above: Order Comment: Order Date: 07/11/24Order Info: 0184-1 - CBCD Performed By: #### L 501.9520, L100.0100, L500.4050 ####[facility] [address] [place], [address] MCHC (RBC) [Mass/Vol] 32.9 g/dL Normal 32-36 [facility] Comment on above: Order Comment: Order Date: 07/11/24Order Info: 0184-1 - CBCD Performed By: #### L 501.9520, L100.0100, L500.4050 ####[facility] [address] [place], [address] MCV (RBC) [Entitic vol] 95.2 fL High 80-94 [facility] Comment on above: Order Comment: Order Date: 07/11/24Order Info: 0184-1 - CBCD Performed By: #### L 501.9520, L100.0100, L500.4050 ####[facility] [address] [place], [address] Monocytes/100 WBC (Bld) 7.3 % Normal 0-10 [facility] Comment on above: Order Comment: Order Date: 07/11/24Order Info: 0184-1 - CBCD Performed By: #### L 501.9520, L100.0100, L500.4050 ####[facility] [address] [place], [address] Neutrophils/100 WBC (Bld) 73.4 % High 47-70 [facility] Comment on above: Order Comment: Order Date: 07/11/24Order Info: 0184-1 - CBCD Performed By: #### L 501.9520, L100.0100, L500.4050 ####[facility] [address] [place], [address] Nucleated RBC (Bld) [#/Vol] 0 10*3/uL Normal 0-5 [facility] Comment on above: Order Comment: Order Date: 07/11/24Order Info: 0184-1 - CBCD Performed By: #### L 501.9520, L100.0100, L500.4050 ####[facility] [address] [place], [address] Platelet mean volume (Bld) [Entitic vol] 9.9 fL Normal 6.2-12.0 [facility] Comment on above: Order Comment: Order Date: 07/11/24Order Info: 018-1 - CBCD Performed By: #### L 501.9520, L100.0100, L500.4050 ####[facility] [address] [place], [address] Platelets (Bld) [#/Vol] 275 10*3/uL Normal 150-450 [facility] Comment on above: Order Comment: Order Date: 07/11/24Order Info: 018- - CBCD Performed By: #### L 501.9520, L100.0100, L500.4050 ####[facility] [address] [place], [address] RBC (Bld) [#/Vol] 4.56 10*6/uL Low 4.6-6.2 [facility] Comment on above: Order Comment: Order Date: 07/11/24Order Info: 0184-1 - CBCD Performed By: #### L 501.9520, L100.0100, L500.4050 ####[facility] [address] [place], [address] RDW SD 52.7 fl High 35.1-43.9 [facility] Comment on above: Order Comment: Order Date: 07/11/24Order Info: 0184-1 - CBCD Performed By: #### L 501.9520, L100.0100, L500.4050 ####[facility] [address] [place], [address] WBC (Bld) [#/Vol] 7.0 10*3/uL Normal 4.4-11.0 [facility] Comment on above: Order Comment: Order Date: 07/11/24Order Info: 0184-1 - CBCD Performed By: #### L 501.9520, L100.0100, L500.4050 ####[facility] [address] [place], [address] Carbon dioxide, total [Moles /volume] in Central venous bloodOrdered By: Key Jasso on 03-07-2025 CO2 [Moles/Vol] 19.5 mmol/L Low 21.0-32.0 [facility] Comment on above: Order Comment: Order Date: 01/10/25Order Info: 0786-1 - CMPOrder Date: 07/11/24Order Info: 3016-3 - TSHStanding ORder Performed By: #### L 501.9520, L100.0100, L500.4050 ####[facility] [address] [place], [place], [address] Chloride assayOrdered By: Torito Jasso on 03-07-2025 Chloride [Moles/Vol] 105 mmol/L Normal 98-108 [facility] Comment on above: Order Comment: Order Date: 01/10/25Order Info: 0786-1 - CMPOrder Date: 07/11/24Order Info: 3016-3 - TSHStanding ORder Performed By: #### L 501.9520, L100.0100, L500.4050 ####[facility] [address] [place], [place], [address] Comprehensive Metabolic Prof ilon 03-07-2025 ALK PHOS 59 U/L Normal 40-129 [facility] Comment on above: Order Comment: Order Date: 01/10/25Order Info: 0786-1 - CMPOrder Date: 07/11/24Order Info: 3016-3 - TSHStanding ORder Performed By: #### L 501.9520, L100.0100, L500.4050 ####[facility] [address] [place], [address] BUN/CRE 15.6 RATIO Normal 10-20 [facility] Comment on above: Order Comment: Order Date: 01/10/25Order Info: 0786-1 - CMPOrder Date: 07/11/24Order Info: 3016-3 - TSHStanding ORder Performed By: #### L 501.9520, L100.0100, L500.4050 ####[facility] [address] [place], [address] GAP 13 Normal 5-15 [facility] Comment on above: Order Comment: Order Date: 01/10/25Order Info: 07- - CMPOrder Date: 07/11/24Order Info: 3016-3 - TSHStanding ORder Performed By: #### L 501.9520, L100.0100, L500.4050 ####[facility] [address] [place], [address] Potassium [Moles/Vol] 4.5 mmol/L Normal 3.3-5.1 [facility] Comment on above: Order Comment: Order Date: 01/10/25Order Info: 0786-1 - CMPOrder Date: 07/11/24Order Info: 3016-3 - TSHStanding ORder Performed By: #### L 501.9520, L100.0100, L500.4050 ####[facility] [address] [place], [address] T PROT 6.9 g/dL Normal 5.9-8.4 [facility] Comment on above: Order Comment: Order Date: 01/10/25Order Info: 0786-1 - CMPOrder Date: 07/11/24Order Info: 3016-3 - TSHStanding ORder Performed By: #### L 501.9520, L100.0100, L500.4050 ####[facility] [address] [place], [place], [address] Comprehensive Metabolic Prof ilOrdered By: Key Jasso on 03-07-2025 AST [Catalytic activity/Vol] 19 U/L Normal <=37 [facility] Comment on above: Order Comment: Order Date: 01/10/25Order Info: 0786-1 - CMPOrder Date: 07/11/24Order Info: 3016-3 - TSHStanding ORder Performed By: #### L 501.9520, L100.0100, L500.4050 ####[facility] [address] [place], [place], [address] Eosinophil percentageOrdered By: Key Jasso on 03-07-2025 Eosinophils/100 WBC (Bld) 1.4 % 0-5 [facility] Erythrocyte distribution wid th ratioOrdered By: Key Jasso on 03-07-2025 Erythrocyte distribution width (RBC) [Ratio] 15.0 % High 11.6-14.6 [facility] Erythrocyte distribution wid th standard deviationOrdered By: Key Jasso on 03-07-2025 Erythrocyte distribution width (RBC) [Ratio] 52.7 fl High 35.1-43.9 [facility] Glomerular filtration rate ( GFR) estimation/1.73 sq m using serum, plasma, or whole bOrdered By: Key Jasso on 03-07-2025 GFR/1.73 sq M.predicted among non-blacks MDRD (S/P/Bld) [Vol rate/Area] 34 mL/min/{1.73_m2} Low >60 [facility] Comment on above: mL/min/1.73m2 CKD-EP I Creatinine Equation (2020) Order Comment: Order Date: 01/10/25Order Info: 0786-1 - CMPOrder Date: 07/11/24Order Info: 3016-3 - TSHStanding ORder Result Comment: mL/m in/1.73m2 CKD-EPI Creatinine Equation (2020) Performed By: #### L 501.9520, L100.0100, L500.4050 ####[facility] [address] [place], [place], [address] Hematocrit Auto (Bld) [Volum e fraction]Ordered By: Key Jasso on 03-07-2025 Hematocrit (Bld) [Volume fraction] 43.4 % 40-54 [facility] Hemoglobin A1con 03-07-2025 HbA1c (Bld) [Mass fraction] 6.7 % High <=5.6 [facility] Comment on above: Order Comment: Order Date: 01/10/25Order Info: 4548-4 - A1C Result Comment: Norm al < 5.7 % Prediabetic 5.7 - 6.4 % Diabetic >or= 6.5 % Please note range changes. Performed By: #### L 501.9985 ####[facility] [address] [place], [address] Hemoglobin A1c percentageOrd ered By: Key Jasso on 03-07-2025 HbA1c (Bld) [Mass fraction] 6.7 % High <5.7 [facility] Comment on above: Normal < 5.7 % Predi abetic 5.7 - 6.4 % Diabetic >or= 6.5 % Please note range changes. Hemoglobin measurementOrdere d By: Key Jasso on 03-07-2025 Hemoglobin (Bld) [Mass/Vol] 14.3 g/dL 13.0-16.5 [facility] Immature granulocytes/100 WB C Auto (Bld)Ordered By: Key Jasso on 03-07-2025 Immature granulocytes/100 WBC (Bld) 0.600 % 0.0-0.9 [facility] Comment on above: IG% - Immature Granu locytes (promyelocytes, myelocytes and metamyelocytes) > 1% indicates that a LEFT SHIFT is Present. International normalized rat io (INR) calculationOrdered By: Key Jasso on 03-07-2025 INR Coag (Bld) [Relative time] 1.3 {INR} [facility] MCV (mean corpuscular volume ) determinationOrdered By: Key Jasso on 03-07-2025 MCV (RBC) [Entitic vol] 95.2 fL High 80-94 [facility] Mean corpuscular hemoglobin (MCH) determinationOrdered By: Key Jasso on 03-07-2025 MCH (RBC) [Entitic mass] 31.4 pg 27.0-32.0 [facility] Mean corpuscular hemoglobin concentration (MCHC) determinationOrdered By: Key Jasso on 03-07-2025 MCHC (RBC) [Mass/Vol] 32.9 g/dL 32-36 [facility] Mean platelet volume determi nationOrdered By: Key Jasso on 03-07-2025 Platelet mean volume (Bld) [Entitic vol] 9.9 fL 6.2-12.0 [facility] Microalb:Creat Ratio,Random URon 03-07-2025 Creatinine [Mass/Vol] 301.00 mg/dL High 39.00-259.00 [facility] Comment on above: Order Comment: Order Date: 01/10/25Order Info: 66995-2 - MIALB Performed By: #### L 502.0250 ####[facility] [address] [place], [place], [address] MALB:CREAT 20.8 mg/g CRE Normal <30 mg/g CRE [facility] Comment on above: Order Comment: Order Date: 01/10/25Order Info: 43948-1 - MIALB Performed By: #### L 502.0250 ####[facility] [address] [place], [place], [address] MICROALBUMIN,UR 62.6 mg/L Normal <20 mg/L [facility] Comment on above: Order Comment: Order Date: 01/10/25Order Info: 08913-0 - MIALB Performed By: #### L 502.0250 ####[facility] [address] [place], [place], [address] Monocyte percentageOrdered B y: Key Jasso on 03-07-2025 Monocytes/100 WBC (Bld) 7.3 % 0-10 [facility] Neutrophil percentageOrdered By: Key Jasso on 03-07-2025 Neutrophils/100 WBC (Bld) 73.4 % High 47-70 [facility] Nucleated red blood cell per centageOrdered By: Key Jasso on 03-07-2025 Nucleated RBC/100 WBC (Bld) [Ratio] 0 % 0-5 [facility] Platelet countOrdered By: Torito Jasso on 03-07-2025 Platelets (Bld) [#/Vol] 275 10*3/uL 150-450 [facility] Potassium measurement (mass/ volume)Ordered By: Key Jasso on 03-07-2025 Potassium (Unsp spec) [Mass/Vol] 4.5 mmol/L 3.3-5.1 [facility] Prothrombin Time w/INRon INR Coag (PPP) [Relative time] 1.3 {INR} Normal [facility] Comment on above: Order Comment: Inter face Comments:Standing OrderOrder Date: 08/22/24Order Info: 6301-6 - PTComments: Standing ORder Performed By: #### L 300.3900 ####[facility] [address] [place], [place], [address] PT Coag (PPP) [Time] 16.6 s High 11.7-14.9 [facility] Comment on above: Order Comment: Inter face Comments:Standing OrderOrder Date: 08/22/24Order Info: 6301-6 - PTComments: Standing ORder Performed By: #### L 300.3900 ####[facility] [address] [place], [address] Prothrombin timeOrdered By: Key Jasso on 03-07-2025 PT Coag (PPP) [Time] 16.6 s High 11.7-14.9 [facility] RBC Auto (Bld) [#/Vol]Ordere d By: Key Jasso on 03-07-2025 RBC (Bld) [#/Vol] 4.56 10*6/uL Low 4.6-6.2 [facility] Random urine creatinine lisa urement (mass/volume)Ordered By: Key Jasso on 03-07-2025 Creatinine Unsp time (U) [Mass/Vol] 301.00 mg/dL High 39.00-259.00 [facility] Serum creatinine measurement (mass/volume)Ordered By: Key Jasso on 03-07-2025 Creatinine [Mass/Vol] 2.06 mg/dL High 0.70-1.20 [facility] Comment on above: Order Comment: Order Date: 01/10/25Order Info: 0786- - CMPOrder Date: 07/11/24Order Info: 3016-3 - TSHStanding ORder Performed By: #### L 501.9520, L100.0100, L500.4050 ####[facility] [address] [place], [address] Serum globulin measurementOr dered By: Key Jasso on 03-07-2025 Globulin (S) [Mass/Vol] 3.0 g/dL Normal 2.2-4.2 [facility] Comment on above: Order Comment: Order Date: 01/10/25Order Info: 785-08 - CMPOrder Date: 07/11/24Order Info: 6-3 - TSHStanding ORder Performed By: #### L 501.9520, L100.0100, L500.4050 ####[facility] [address] [place], [address] Serum glucose measurement (m ass/volume)Ordered By: Key Jasso on 03-07-2025 Glucose [Mass/Vol] 185 mg/dL High 70-99 [facility] Comment on above: Order Comment: Order Date: 01/10/25Order Info: 0786- - CMPOrder Date: 07/11/24Order Info: 6-3 - TSHStanding ORder Performed By: #### L 501.9520, L100.0100, L500.4050 ####[facility] [address] [place], [address] Serum or plasma alanine nunez otransferase (ALT) measurementOrdered By: Key Jasso on 03-07-2025 ALT [Catalytic activity/Vol] 17 U/L Normal <=46 [facility] Comment on above: Order Comment: Order Date: 01/10/25Order Info: 0786- - CMPOrder Date: 07/11/24Order Info: 3016-3 - TSHStanding ORder Performed By: #### L 501.9520, L100.0100, L500.4050 ####[facility] [address] [place], [address] Serum or plasma albumin lisa urement (mass/volume)Ordered By: Key Jasso on 03-07-2025 Albumin [Mass/Vol] 3.9 g/dL Normal 3.4-4.8 [facility] Comment on above: Order Comment: Order Date: 01/10/25Order Info: 0786-1 - CMPOrder Date: 07/11/24Order Info: 3016-3 - TSHStanding ORder Performed By: #### L 501.9520, L100.0100, L500.4050 ####[facility] [address] [place], [address] Serum or plasma albumin/glob ulin mass ratioOrdered By: Key Jasso on 03-07-2025 Albumin/Globulin [Mass ratio] 1.3 {ratio} Normal 0.9-2.4 [facility] Comment on above: Order Comment: Order Date: 01/10/25Order Info: 0786-1 - CMPOrder Date: 07/11/24Order Info: 6-3 - TSHStanding ORder Performed By: #### L 501.9520, L100.0100, L500.4050 ####[facility] [address] [place], [address] Serum or plasma alkaline kacy sphatase measurementOrdered By: Key Jasso on 03-07-2025 ALP [Catalytic activity/Vol] 59 U/L 40-129 [facility] Serum or plasma calcium lisa urement (mass/volume)Ordered By: Key Jasso on 03-07-2025 Calcium [Mass/Vol] 9.6 mg/dL Normal 7.6-11.0 [facility] Comment on above: Order Comment: Order Date: 01/10/25Order Info: 0786-1 - CMPOrder Date: 07/11/24Order Info: 3016-3 - TSHStanding ORder Performed By: #### L 501.9520, L100.0100, L500.4050 ####[facility] [address] [place], [address] Serum or plasma urea nitroge n measurement (mass/volume)Ordered By: Key Jasso on 03-07-2025 Urea nitrogen [Mass/Vol] 32 mg/dL High 4-19 [facility] Comment on above: Order Comment: Order Date: 01/10/25Order Info: 0786-1 - CMPOrder Date: 07/11/24Order Info: 3016-3 - TSHStanding ORder Performed By: #### L 501.9520, L100.0100, L500.4050 ####[facility] [address] [place], [address] Sodium levelOrdered By: Key Jasso on 03-07-2025 Sodium [Moles/Vol] 138 mmol/L Normal 133-145 [facility] Comment on above: Order Comment: Order Date: 01/10/25Order Info: 0786-1 - CMPOrder Date: 07/11/24Order Info: 3016-3 - TSHStanding ORder Performed By: #### L 501.9520, L100.0100, L500.4050 ####[facility] [address] [place], [address] TSH DL <= 0.005 mIU/L QnOrde red By: Key Jasso on 03-07-2025 TSH Qn 6.530 uIU/mL High 0.300-4.200 [facility] Thyroid Stim Hormone (TSH)on 03-07-2025 TSH 6.530 uIU/mL High 0.300-4.200 [facility] Comment on above: Order Comment: Order Date: 01/10/25Order Info: 0786-1 - CMPOrder Date: 07/11/24Order Info: 3016-3 - TSH Performed By: #### L 501.9520, L100.0100, L500.4050 ####[facility] [address] [place], [address] Total proteinOrdered By: Colleen Jasso on 03-07-2025 Protein [Mass/Vol] 6.9 g/dL 5.9-8.4 [facility] Urine albumin measurement wi th detection limit of 20 mg/L or less (mass/volume)Ordered By: Key Jasso on 03-07-2025 Albumin DL <= 20 mg/L (U) [Mass/Vol] 62.6 mg/L <20 mg/L [facility] White blood cell (WBC) count Ordered By: Key Jasso on 03-07-2025 WBC (Bld) [#/Vol] 7.0 10*3/uL 4.4-11.0 [facility] Inital Evaluation (1) - PTon 01-11-2025 Inital Evaluation (1) - PT [facility] Physical Therapy [facility] [address] [place] [address] / REHABILITATION SERVICES INITIAL EVALUATION MR#: [id number] Acct: [id number] Name: BRENDON DAVID Rep #: [id number] : 1950 74 From: Carlos Flores PT, [...] and To (more content not included)... Normal [facility] L/S Spine Bending Flex/Watson 01-05-2025 L/S Spine Bending Flex/Ext [facility] [address] [place], [place] [address] L/S Spine Bending Flex/Ext MR#: [id number] Acct: [id number] Name: BRENDON DAVID Rep #: [id number] : 1950 74 From: Kameron Mohamud MD PCP: Dr. Key Jasso MD Status: DEP AMB Study: L/S Spine Bending Flex/Ext Date of Exam: 01/05 Exam# [id number] Ordering Dr: Per Pond MD EXAM: XR [...] and disc disease of L2-3. [facility] CC: Dr. Per Pond MD; Dr. Key Jasso MD Neck Band Maker: Signed Normal [facility] Orthopedic Visit Reporton Orthopedic Visit Report [facility] [address] [place] [address] OFFICE VISIT Date of Service: 01/05/25 MR#: [id number] Acct: [id number] Name: BRENDON DAVID Rep #: [id number] : 1950 Provider: Dr. Per Pond MD Age/Sex: 74/M Location: [facility] Status: Signed Intake Vital Signs 12/01/22 00:12 [...] Hypertension DVT (deep venous thrombosis) Non-ST elevation [place] (NSTEMI) COVID-19 DVT (deep venous thrombosis) Diabetes [...] improved. He (more content not included)... Normal [facility] Magnetic resonance imaging r eportOrdered By: Frank Etienne on 11-22-2024 Study report [facility] Imaging Services [address] [place] [address] Spine Lumbar (Routine) MR#: [id number] Acct: [id number] Name: BRENDON DAVID Rep #: [id number] : 1950 M 74 From: And jet Etienne DO PCP: Dr. Key Jasso MD Status: REG CLI Study:Spine Lumbar (Routine) Date of Exam: 11/21/24 Exam# [id number] Ordering Dr: Torito Jasso MD EXAM: Noncontrast [...] central spinal canal, or neural foraminal narrowing. Xgaj-ah-jjfemhfe degenerative facet changes. L2-3: There is severe [...] DANIELLULI CC: Dr. Key Jasso MD ~ Neck Band Maker: Signed [facility] Spine Lumbar (Routine)on Spine Lumbar (Routine) [facility] Imaging Services [address] [place], [place] [address] Spine Lumbar (Routine) MR#: [id number] Acct: [id number] Name: BRENDON DAVID Rep #: [id number] : 1950 M 74 From: Frank Wood i DO PCP: Dr. Key Jasso MD Status: REG CLI Study: Spine Lumbar (Routine) Date of Exam: 11/21/24 Exam# [id number] Ordering Dr: Key Jasso MD EXAM: Noncontrast [...] central spinal canal, or neural foraminal narrowing. Ztbv-ow-ssoipixs degenerative facet changes. L2-3: There is severe [...] Location: [facility] CC: Dr. Key Jasso MD Neck Band Maker: Signed Normal [facility] Comprehensive Metabolic Prof ilon 10-12-2024 Albumin [Mass/Vol] 4.0 g/dL Normal 3.4-4.8 [facility] Comment on above: Performed By: #### L 506.1001, L500.4050 ####[facility] [address] [place], [address] Albumin/Globulin [Mass ratio] 1.3 {ratio} Normal 0.9-2.4 [facility] Comment on above: Performed By: #### L 506.1001, L500.4050 ####[facility] [address] [place], [address] ALK PHOS 60 U/L Normal 40-129 [facility] Comment on above: Performed By: #### L 506.1001, L500.4050 ####[facility] [address] [place], [address] ALT [Catalytic activity/Vol] 20 U/L Normal <=46 [facility] Comment on above: Performed By: #### L 506.1001, L500.4050 ####[facility] [address] [place], [address] Anion gap [Moles/Vol] 13 mmol/L Normal 5-15 [facility] Comment on above: Performed By: #### L 506.1001, L500.4050 ####[facility] [address] [place], [address] AST [Catalytic activity/Vol] 27 U/L Normal <=37 [facility] Comment on above: Performed By: #### L 506.1001, L500.4050 ####[facility] [address] [place], [address] Bilirubin [Mass/Vol] 0.38 mg/dL Normal 0.00-1.30 [facility] Comment on above: Performed By: #### L 506.1001, L500.4050 ####[facility] [address] [place], [address] BUN/CRE 19.4 RATIO Normal 10-20 [facility] Comment on above: Performed By: #### L 506.1001, L500.4050 ####[facility] [address] [place], [address] Calcium [Mass/Vol] 9.9 mg/dL Normal 7.6-11.0 [facility] Comment on above: Performed By: #### L 506.1001, L500.4050 ####[facility] [address] [place], [address] Chloride [Moles/Vol] 102 mmol/L Normal 96-108 [facility] Comment on above: Performed By: #### L 506.1001, L500.4050 ####[facility] [address] [place], [address] CO2 [Moles/Vol] 19.6 mmol/L Low 22.0-29.0 [facility] Comment on above: Performed By: #### L 506.1001, L500.4050 ####[facility] [address] [place], [address] Creatinine [Mass/Vol] 1.7 mg/dL High 0.8-1.3 [facility] Comment on above: Performed By: #### L 506.1001, L500.4050 ####[facility] [address] [place], [address] GFR/1.73 sq M.predicted among non-blacks MDRD (S/P/Bld) [Vol rate/Area] 42 mL/min/{1.73_m2} Low >60 [facility] Comment on above: Result Comment: mL/m in/1.73m2 CKD-EPI Creatinine Equation (2020) Performed By: #### L 506.1001, L500.4050 ####[facility] [address] [place], [address] Globulin (S) [Mass/Vol] 3.0 g/dL Normal 2.2-4.2 [facility] Comment on above: Performed By: #### L 506.1001, L500.4050 ####[facility] [address] [place], [address] Glucose [Mass/Vol] 221 mg/dL High 70-99 [facility] Comment on above: Performed By: #### L 506.1001, L500.4050 ####[facility] [address] [place], [address] Potassium [Moles/Vol] 4.8 mmol/L Normal 3.3-5.1 [facility] Comment on above: Performed By: #### L 506.1001, L500.4050 ####[facility] [address] [place], [address] Sodium [Moles/Vol] 135 mmol/L Normal 133-145 [facility] Comment on above: Performed By: #### L 506.1001, L500.4050 ####[facility] [address] [place], [address] T PROT 7.1 g/dL Normal 5.9-8.4 [facility] Comment on above: Performed By: #### L 506.1001, L500.4050 ####[facility] [address] [place], [address] Urea nitrogen [Mass/Vol] 33 mg/dL High 4-19 [facility] Comment on above: Performed By: #### L 506.1001, L500.4050 ####[facility] [address] [place], [address] L506.1001on 10-12-2024 Vitamin D 25-OH 25.2 ng/mL Low 30-100 [facility] Comment on above: Result Comment: Tatyana min D Status Deficiency: <20 ng/mL (50nmol/L) Insufficiency: 20-30 ng/mL (50-75 nmol/L) Sufficiency: 30-100 ng/mL (75-250 nmol/L) Toxicity: >100 ng/mL (>250 nmol/L) Performed By: #### L 506.1001, L500.4050 ####[facility] [address] [place], [address] Albumin DL <= 20 mg/L (U) [M ass/Vol]Ordered By: Key Jasso on 10-11-2024 Urine Random Microalbumin 74.4 mg/L NO RANGE EST. [facility] BUN/creatinine ratioOrdered By: Key Jasso on 10-11-2024 Urea nitrogen/Creatinine [Mass ratio] 19.4 mg/mg 10-20 [facility] Bilirubin, totalOrdered By: Key Jasso on 10-11-2024 Bilirubin [Mass/Vol] 0.38 mg/dL 0.00-1.30 [facility] CBC-Complete Blood Cnt No Di ffon 10-11-2024 Erythrocyte distribution width (RBC) [Ratio] 14.9 % High 11.6-14.6 [facility] Comment on above: Performed By: #### L 502.0250, L100.0500, L500.4050 #### [facility] [address] [place], [address] Hematocrit (Bld) [Volume fraction] 47.6 % Normal 40-54 [facility] Comment on above: Performed By: #### L 502.0250, L100.0500, L500.4050 #### [facility] [address] [place], [address] Hemoglobin (Bld) [Mass/Vol] 15.3 g/dL Normal 13.0-16.5 [facility] Comment on above: Performed By: #### L 502.0250, L100.0500, L500.4050 #### [facility] [address] [place], [address] MCH (RBC) [Entitic mass] 30.6 pg Normal 27.0-32.0 [facility] Comment on above: Performed By: #### L 502.0250, L100.0500, L500.4050 #### [facility] [address] [place], [address] MCHC (RBC) [Mass/Vol] 32.1 g/dL Normal 32-36 [facility] Comment on above: Performed By: #### L 502.0250, L100.0500, L500.4050 #### [facility] [address] [place], [address] MCV (RBC) [Entitic vol] 95.2 fL High 80-94 [facility] Comment on above: Performed By: #### L 502.0250, L100.0500, L500.4050 #### [facility] [address] [place], [address] Platelet mean volume (Bld) [Entitic vol] 10.2 fL Normal 6.2-12.0 [facility] Comment on above: Performed By: #### L 502.0250, L100.0500, L500.4050 #### [facility] [address] [place], [address] Platelets (Bld) [#/Vol] 328 10*3/uL Normal 150-450 [facility] Comment on above: Performed By: #### L 502.0250, L100.0500, L500.4050 #### [facility] [address] [place], [address] RBC (Bld) [#/Vol] 5.00 10*6/uL Normal 4.6-6.2 [facility] Comment on above: Performed By: #### L 502.0250, L100.0500, L500.4050 #### [facility] [address] [place], [address] RDW SD 52.5 fl High 35.1-43.9 [facility] Comment on above: Performed By: #### L 502.0250, L100.0500, L500.4050 #### [facility] [address] [place], [address] WBC (Bld) [#/Vol] 6.9 10*3/uL Normal 4.4-11.0 [facility] Comment on above: Performed By: #### L 502.0250, L100.0500, L500.4050 #### [facility] [address] [place], [address] Carbon dioxide measurementOr dered By: Key Jasso on 10-11-2024 CO2 [Moles/Vol] 19.6 mmol/L Low 22.0-29.0 [facility] Chloride measurementOrdered By: Key Jasso on 10-11-2024 Chloride [Moles/Vol] 102 mmol/L 96-108 [facility] Comprehensive Metabolic Prof ilon 10-11-2024 ALB Normal 3.2-5.0 [facility] Comment on above: Result Comment: REOR DERED Performed By: #### L 502.0250, L100.0500, L500.4050 #### [facility] [address] [place], [address] ALK PHOS Normal 45-117 [facility] Comment on above: Result Comment: REOR DERED Performed By: #### L 502.0250, L100.0500, L500.4050 #### [facility] [address] [place], [address] ALT Normal 16-61 [facility] Comment on above: Result Comment: REOR DERED Performed By: #### L 502.0250, L100.0500, L500.4050 #### [facility] [address] [place], [address] AST Normal 15-37 [facility] Comment on above: Result Comment: REOR DERED Performed By: #### L 502.0250, L100.0500, L500.4050 #### [facility] [address] [place], [address] BUN Normal 7-18 [facility] Comment on above: Result Comment: REOR DERED Performed By: #### L 502.0250, L100.0500, L500.4050 #### [facility] [address] [place], [address] BUN/CRE Normal 10-20 [facility] Comment on above: Result Comment: REOR DERED Performed By: #### L 502.0250, L100.0500, L500.4050 #### [facility] [address] [place], [address] Calcium Normal 8.5-10.1 [facility] Comment on above: Result Comment: REOR DERED Performed By: #### L 502.0250, L100.0500, L500.4050 #### [facility] [address] [place], [address] CL Normal 98-107 [facility] Comment on above: Result Comment: REOR DERED Performed By: #### L 502.0250, L100.0500, L500.4050 #### [facility] [address] [place], [address] CO2 Normal 21.0-32.0 [facility] Comment on above: Result Comment: REOR DERED Performed By: #### L 502.0250, L100.0500, L500.4050 #### [facility] [address] [place], [address] CREAT,SERUM Normal 0.70-1.30 [facility] Comment on above: Result Comment: REOR DERED Performed By: #### L 502.0250, L100.0500, L500.4050 #### [facility] [address] [place], [address] eGFR Normal >60 [facility] Comment on above: Result Comment: REOR DERED Performed By: #### L 502.0250, L100.0500, L500.4050 #### [facility] [address] [place], [address] EST GFR - AA Normal >60 [facility] Comment on above: Result Comment: REOR DERED Performed By: #### L 502.0250, L100.0500, L500.4050 #### [facility] [address] [place], [address] GAP Normal 5-15 [facility] Comment on above: Result Comment: REOR DERED Performed By: #### L 502.0250, L100.0500, L500.4050 #### [facility] [address] [place], [address] GLU Normal 74-106 [facility] Comment on above: Result Comment: REOR DERED Performed By: #### L 502.0250, L100.0500, L500.4050 #### [facility] [address] [place], [address] Potassium Normal 3.5-5.1 [facility] Comment on above: Result Comment: REOR DERED Performed By: #### L 502.0250, L100.0500, L500.4050 #### [facility] [address] [place], [address] T BILI Normal 0.20-1.00 [facility] Comment on above: Result Comment: REOR DERED Performed By: #### L 502.0250, L100.0500, L500.4050 #### [facility] [address] [place], [address] T PROT Normal 6.4-8.2 [facility] Comment on above: Result Comment: REOR DERED Performed By: #### L 502.0250, L100.0500, L500.4050 #### [facility] [address] [place], [place], [address] Comprehensive Metabolic Profil Normal 136-145 [facility] Comment on above: Result Comment: FLORENTINOHORTENSIA KUSH Performed By: #### L 502.0250, L100.0500, L500.4050 #### [facility] [address] [place], [address] Creatinine Unsp time (U) [Ma ss/Vol]Ordered By: Key Jasso on 10-11-2024 Creatinine (U) [Mass/Vol] 237.00 mg/dL NO RANGE EST. [facility] Creatinine [Moles/Vol]Ordere d By: Key Jasso on 10-11-2024 Creatinine [Mass/Vol] 1.7 mg/dL High 0.8-1.3 [facility] Erythrocyte distribution wid th ratioOrdered By: Key Jasso on 10-11-2024 Erythrocyte distribution width (RBC) [Ratio] 14.9 % High 11.6-14.6 [facility] Erythrocyte distribution wid th standard deviationOrdered By: Key Jasso on 10-11-2024 Erythrocyte distribution width (RBC) [Entitic vol] 52.5 fL High 35.1-43.9 [facility] GFR/1.73 sq M.predicted marti g non-blacks MDRD (S/P/Bld) [Vol rate/Area]Ordered By: Key Jasso on 10-11-2024 Estimated GFR (MDRD) Non-Af Amer 42 Low >60 [facility] Comment on above: mL/min/1.73m2 CKD-EP I Creatinine Equation (2020) Hematocrit Auto (Bld) [Volum e fraction]Ordered By: Key Jasso on 10-11-2024 Hematocrit (Bld) [Volume fraction] 47.6 % 40-54 [facility] Hemoglobin measurementOrdere d By: Key Jasso on 10-11-2024 Hemoglobin (Bld) [Mass/Vol] 15.3 g/dL 13.0-16.5 [facility] - Chemistry and C hemistry - challengeOrdered By: Key Jasso on 10-11-2024 AST [Catalytic activity/Vol] 27 U/L <38 [facility] Lumbar Spine 2 or 3 Viewson 10-11-2024 Lumbar Spine 2 or 3 Views [facility] Imaging Services [address] [place] [address] Lumbar Spine 2 or 3 Views MR#: [id number] Acct: [id number] Name: BRENDON DAVID Rep #: [id number] : 1950 M 74 From: Delfin curiel MD PCP: Dr. Key Jasso MD Status: REG CLI Study: Lumbar Spine 2 or 3 Views Date of Exam: Exam# [id number] Ordering Dr: Key Jasso MD PROCEDURE: LUMBAR [...] interarticularis of the L5 vertebrae. Reading Location: [facility] CC: Dr. Key Jasso MD Neck Band Maker: Signed Normal [facility] MCV (mean corpuscular volume ) determinationOrdered By: Key Jasso on 10-11-2024 MCV (RBC) [Entitic vol] 95.2 fL High 80-94 [facility] Mean corpuscular hemoglobin (MCH) determinationOrdered By: Key Jasso on 10-11-2024 MCH (RBC) [Entitic mass] 30.6 pg 27.0-32.0 [facility] Mean corpuscular hemoglobin concentration (MCHC) determinationOrdered By: Key Jasso on 10-11-2024 MCHC (RBC) [Mass/Vol] 32.1 g/dL 32-36 [facility] Mean platelet volume determi nationOrdered By: Key Jasso on 10-11-2024 Platelet mean volume (Bld) [Entitic vol] 10.2 fL 6.2-12.0 [facility] Microalbumin/creat ratio urO rdered By: Key Jasso on 10-11-2024 Urine Microalbumin/Creatinin e Ratio 313.9 mg/g CRE [facility] No Panel InformationOrdered By: Key Jasso on 10-11-2024 Vitamin D 25-Hydroxy 25.2 ng/mL Low 30-100 [facility] Comment on above: Vitamin D StatusDefi ciency: <20 ng/mL (50nmol/L)Insufficiency: 20-30 ng/mL (50-75 nmol/L)Sufficiency: 30-100 ng/mL (75-250 nmol/L)Toxicity: >100 ng/mL (>250 nmol/L) Platelet countOrdered By: Torito Jasso on 10-11-2024 Platelets (Bld) [#/Vol] 328 10*3/uL 150-450 [facility] RBC Auto (Bld) [#/Vol]Ordere d By: Key Jasso on 10-11-2024 RBC (Bld) [#/Vol] 5.00 10*6/uL 4.6-6.2 [facility] Serum globulin measurementOr dered By: Key Jasso on 10-11-2024 Globulin (S) [Mass/Vol] 3.0 g/dL 2.2-4.2 [facility] Serum glucose measurement (m ass/volume)Ordered By: Key Jasso on 10-11-2024 Glucose [Mass/Vol] 221 mg/dL High 70-99 [facility] Serum or plasma alanine nunez otransferase (ALT) measurementOrdered By: Key Jasso on 10-11-2024 ALT [Catalytic activity/Vol] 20 U/L <47 [facility] Serum or plasma albumin lisa urement (mass/volume)Ordered By: Key Jasso on 10-11-2024 Albumin [Mass/Vol] 4.0 g/dL 3.4-4.8 [facility] Serum or plasma albumin/glob ulin mass ratioOrdered By: Key Jasso on 10-11-2024 Albumin/Globulin [Mass ratio] 1.3 {ratio} 0.9-2.4 [facility] Serum or plasma alkaline kacy sphatase measurementOrdered By: Key Jasso on 10-11-2024 ALP [Catalytic activity/Vol] 60 U/L 40-129 [facility] Serum or plasma anion gap de termination (moles/volume)Ordered By: Key Jasso on 10-11-2024 Anion gap [Moles/Vol] 13 mmol/L 5-15 [facility] Serum or plasma calcium lisa urement (mass/volume)Ordered By: Key Jasso on 10-11-2024 Calcium [Mass/Vol] 9.9 mg/dL 7.6-11.0 [facility] Serum or plasma potassium me asurementOrdered By: Key Jasso on 10-11-2024 Potassium [Moles/Vol] 4.8 mmol/L 3.3-5.1 [facility] Serum or plasma sodium measu rement (moles/volume)Ordered By: Key Jasso on 10-11-2024 Sodium [Moles/Vol] 135 mmol/L 133-145 [facility] Serum or plasma urea nitroge n measurement (mass/volume)Ordered By: Key Jasso on 10-11-2024 Urea nitrogen [Mass/Vol] 33 mg/dL High 4-19 [facility] Total proteinOrdered By: Colleen Jasso on 10-11-2024 Protein [Mass/Vol] 7.1 g/dL 5.9-8.4 [facility] White blood cell (WBC) count Ordered By: Key Jasso on 10-11-2024 WBC (Bld) [#/Vol] 6.9 10*3/uL 4.4-11.0 [facility] C reactive proteinon 024 CRP [Mass/Vol] 0.42 mg/dL Normal <1.00 [facility] Comment on above: Performed By: #### 1 988-5 #### CAN EDWARD ([id number]) [facility] ([facility]) [address] [place] [address] CBC W/Diff, Automatedon 03-18 Absolute Lymph 1.00 X10 3/uL Normal 0.83-4.51 [facility] Comment on above: Order Comment: Order Date: 03/08/24 Order Info: 0184-1 - CBCD Performed By: #### L 100.0100, L501.9985, L300.3900, L501.2450, L500.4050 #### [facility] [address] [place], [address] Absolute Neut 6.1 X10 3/uL Normal 2.0-7.7 [facility] Comment on above: Order Comment: Order Date: 03/08/24 Order Info: 0184- - CBCD Performed By: #### L 100.0100, L501.9985, L300.3900, L501.2450, L500.4050 #### [facility] [address] [place], [address] Basophils/100 WBC (Bld) 0.6 % Normal 0-1 [facility] Comment on above: Order Comment: Order Date: 03/08/24 Order Info: 0184- - CBCD Performed By: #### L 100.0100, L501.9985, L300.3900, L501.2450, L500.4050 #### [facility] [address] [place], [address] Eosinophils/100 WBC (Bld) 1.3 % Normal 0-5 [facility] Comment on above: Order Comment: Order Date: 03/08/24 Order Info: 0184-1 - CBCD Performed By: #### L 100.0100, L501.9985, L300.3900, L501.2450, L500.4050 #### [facility] [address] [place], [address] Erythrocyte distribution width (RBC) [Ratio] 14.1 % Normal 11.6-14.6 [facility] Comment on above: Order Comment: Order Date: 03/08/24 Order Info: 0184-1 - CBCD Performed By: #### L 100.0100, L501.9985, L300.3900, L501.2450, L500.4050 #### [facility] [address] [place], [address] Hematocrit (Bld) [Volume fraction] 45.1 % Normal 40-54 [facility] Comment on above: Order Comment: Order Date: 03/08/24 Order Info: 0184-1 - CBCD Performed By: #### L 100.0100, L501.9985, L300.3900, L501.2450, L500.4050 #### [facility] [address] [place], [address] Hemoglobin (Bld) [Mass/Vol] 14.6 g/dL Normal 13.0-16.5 [facility] Comment on above: Order Comment: Order Date: 03/08/24 Order Info: 0184-1 - CBCD Performed By: #### L 100.0100, L501.9985, L300.3900, L501.2450, L500.4050 #### [facility] [address] [place], [address] IG% 0.900 Normal 0.0-0.9 [facility] Comment on above: Order Comment: Order Date: 03/08/24 Order Info: 0184-1 - CBCD Result Comment: IG% - Immature Granulocytes (promyelocytes, myelocytes and metamyelocytes) > 1% indicates that a LEFT SHIFT is Present. Performed By: #### L 100.0100, L501.9985, L300.3900, L501.2450, L500.4050 #### [facility] [address] [place], [address] Lymphocytes/100 WBC (Bld) 12.8 % Low 19-41 [facility] Comment on above: Order Comment: Order Date: 03/08/24 Order Info: 0184-1 - CBCD Performed By: #### L 100.0100, L501.9985, L300.3900, L501.2450, L500.4050 #### [facility] [address] [place], [address] MCH (RBC) [Entitic mass] 30.7 pg Normal 27.0-32.0 [facility] Comment on above: Order Comment: Order Date: 03/08/24 Order Info: 018- - CBCD Performed By: #### L 100.0100, L501.9985, L300.3900, L501.2450, L500.4050 #### [facility] [address] [place], [address] MCHC (RBC) [Mass/Vol] 32.4 g/dL Normal 32-36 [facility] Comment on above: Order Comment: Order Date: 03/08/24 Order Info: 018- - CBCD Performed By: #### L 100.0100, L501.9985, L300.3900, L501.2450, L500.4050 #### [facility] [address] [place], [address] MCV (RBC) [Entitic vol] 94.9 fL High 80-94 [facility] Comment on above: Order Comment: Order Date: 03/08/24 Order Info: 018- - CBCD Performed By: #### L 100.0100, L501.9985, L300.3900, L501.2450, L500.4050 #### [facility] [address] [place], [address] Monocytes/100 WBC (Bld) 6.5 % Normal 0-10 [facility] Comment on above: Order Comment: Order Date: 03/08/24 Order Info: 018- - CBCD Performed By: #### L 100.0100, L501.9985, L300.3900, L501.2450, L500.4050 #### [facility] [address] [place], [address] Neutrophils/100 WBC (Bld) 77.9 % High 47-70 [facility] Comment on above: Order Comment: Order Date: 03/08/24 Order Info: 0184-1 - CBCD Performed By: #### L 100.0100, L501.9985, L300.3900, L501.2450, L500.4050 #### [facility] [address] [place], [address] Nucleated RBC (Bld) [#/Vol] 0 10*3/uL Normal 0-5 [facility] Comment on above: Order Comment: Order Date: 03/08/24 Order Info: 0184-1 - CBCD Performed By: #### L 100.0100, L501.9985, L300.3900, L501.2450, L500.4050 #### [facility] [address] [place], [address] Platelet mean volume (Bld) [Entitic vol] 10.4 fL Normal 6.2-12.0 [facility] Comment on above: Order Comment: Order Date: 03/08/24 Order Info: 0184-1 - CBCD Performed By: #### L 100.0100, L501.9985, L300.3900, L501.2450, L500.4050 #### [facility] [address] [place], [address] Platelets (Bld) [#/Vol] 303 10*3/uL Normal 150-450 [facility] Comment on above: Order Comment: Order Date: 03/08/24 Order Info: 0184-1 - CBCD Performed By: #### L 100.0100, L501.9985, L300.3900, L501.2450, L500.4050 #### [facility] [address] [place], [address] RBC (Bld) [#/Vol] 4.75 10*6/uL Normal 4.6-6.2 [facility] Comment on above: Order Comment: Order Date: 03/08/24 Order Info: 0184-1 - CBCD Performed By: #### L 100.0100, L501.9985, L300.3900, L501.2450, L500.4050 #### [facility] [address] [place], [address] RDW SD 49.5 fl High 35.1-43.9 [facility] Comment on above: Order Comment: Order Date: 03/08/24 Order Info: 0184-1 - CBCD Performed By: #### L 100.0100, L501.9985, L300.3900, L501.2450, L500.4050 #### [facility] [address] [place], [address] WBC (Bld) [#/Vol] 7.8 10*3/uL Normal 4.4-11.0 [facility] Comment on above: Order Comment: Order Date: 03/08/24 Order Info: 0184-1 - CBCD Performed By: #### L 100.0100, L501.9985, L300.3900, L501.2450, L500.4050 #### [facility] [address] [place], [address] Comprehensive Metabolic Prof [facility] 04-13-2024 Albumin [Mass/Vol] 3.3 g/dL Normal 3.2-5.0 [facility] Comment on above: Order Comment: Order Date: 03/08/24 Order Info: [id number] - CMP Order Info: 3040-3 - LIPASE Performed By: #### L 100.0100, L501.9985, L300.3900, L501.2450, L500.4050 #### [facility] [address] [place], [address] Albumin/Globulin [Mass ratio] 0.9 {ratio} Normal 0.9-2.4 [facility] Comment on above: Order Comment: Order Date: 03/08/24 Order Info: [id number] - CMP Order Info: 3040-3 - LIPASE Performed By: #### L 100.0100, L501.9985, L300.3900, L501.2450, L500.4050 #### [facility] [address] [place], [address] ALK P 72 U/L Normal 45-117 [facility] Comment on above: Order Comment: Order Date: 03/08/24 Order Info: [id number] - CMP Order Info: 3040-3 - LIPASE Performed By: #### L 100.0100, L501.9985, L300.3900, L501.2450, L500.4050 #### [facility] [address] [place], [address] ALT [Catalytic activity/Vol] 21 U/L Normal 16-61 [facility] Comment on above: Order Comment: Order Date: 03/08/24 Order Info: [id number] - CMP Order Info: 3040-3 - LIPASE Performed By: #### L 100.0100, L501.9985, L300.3900, L501.2450, L500.4050 #### [facility] [address] [place], [address] AST [Catalytic activity/Vol] 20 U/L Normal 15-37 [facility] Comment on above: Order Comment: Order Date: 03/08/24 Order Info: 0786-1 - CMP Order Info: 3040-3 - LIPASE Performed By: #### L 100.0100, L501.9985, L300.3900, L501.2450, L500.4050 #### [facility] [address] [place], [address] Bilirubin [Mass/Vol] 0.70 mg/dL Normal 0.20-1.00 [facility] Comment on above: Order Comment: Order Date: 03/08/24 Order Info: 0786-1 - CMP Order Info: 3040-3 - LIPASE Result Comment: For patients on eltrombopag therapy, use of [facility] TBIL is not recommended. Performed By: #### L 100.0100, L501.9985, L300.3900, L501.2450, L500.4050 #### [facility] [address] [place], [address] BUN/CRE 18.2 RATIO Normal 10-20 [facility] Comment on above: Order Comment: Order Date: 03/08/24 Order Info: 0786-1 - CMP Order Info: 3040-3 - LIPASE Performed By: #### L 100.0100, L501.9985, L300.3900, L501.2450, L500.4050 #### [facility] [address] [place], [address] CA,Total 9.2 mg/dL Normal 8.5-10.1 [facility] Comment on above: Order Comment: Order Date: 03/08/24 Order Info: 0786-1 - CMP Order Info: 3040-3 - LIPASE Performed By: #### L 100.0100, L501.9985, L300.3900, L501.2450, L500.4050 #### [facility] [address] [place], [address] Chloride [Moles/Vol] 107 mmol/L Normal 98-107 [facility] Comment on above: Order Comment: Order Date: 03/08/24 Order Info: 0786-1 - CMP Order Info: 3040-3 - LIPASE Performed By: #### L 100.0100, L501.9985, L300.3900, L501.2450, L500.4050 #### [facility] [address] [place], [address] CO2 [Moles/Vol] 22.0 mmol/L Normal 21.0-32.0 [facility] Comment on above: Order Comment: Order Date: 03/08/24 Order Info: 0786-1 - CMP Order Info: 3040-3 - LIPASE Performed By: #### L 100.0100, L501.9985, L300.3900, L501.2450, L500.4050 #### [facility] [address] [place], [address] Creatinine [Mass/Vol] 1.87 mg/dL High 0.70-1.30 [facility] Comment on above: Order Comment: Order Date: 03/08/24 Order Info: 07 - CMP Order Info: 3043 - LIPASE Result Comment: The validity of the calculated GFR GFRAA in patients over 70 years has not been determined. Clinical correlation is essential. Performed By: #### L 100.0100, L501.9985, L300.3900, L501.2450, L500.4050 #### [facility] [address] [place], [address] EST GFR - AA 46 mL/min Low >60 [facility] Comment on above: Order Comment: Order Date: 03/08/24 Order Info: 0786- - CMP Order Info: 3043 - LIPASE Result Comment: Afri can Mexican GFR Calc Performed By: #### L 100.0100, L501.9985, L300.3900, L501.2450, L500.4050 #### [facility] [address] [place], [place], [address] GAP 8 Normal 5-15 [facility] Comment on above: Order Comment: Order Date: 03/08/24 Order Info: 0786-1 - CMP Order Info: 304-3 - LIPASE Performed By: #### L 100.0100, L501.9985, L300.3900, L501.2450, L500.4050 #### [facility] [address] [place], [place], [address] GFR/1.73 sq M.predicted among non-blacks MDRD (S/P/Bld) [Vol rate/Area] 38 mL/min/{1.73_m2} Low >60 [facility] Comment on above: Order Comment: Order Date: 03/08/24 Order Info: 0786- - CMP Order Info: 304-3 - LIPASE Result Comment: Non- GFR Calc Performed By: #### L 100.0100, L501.9985, L300.3900, L501.2450, L500.4050 #### [facility] [address] [place], [address] Globulin (S) [Mass/Vol] 3.8 g/dL Normal 2.2-4.2 [facility] Comment on above: Order Comment: Order Date: 03/08/24 Order Info: 0786 - [facility] Order Info: 304-3 - LIPASE Performed By: #### L 100.0100, L501.9985, L300.3900, L501.2450, L500.4050 #### [facility] [address] [place], [address] Glucose [Mass/Vol] 244 mg/dL High 74-106 [facility] Comment on above: Order Comment: Order Date: 03/08/24 Order Info: 0786 - [facility] Order Info: 304-3 - LIPASE Result Comment: Gluc ose result greater than or equal to 200 mg/dL suggests DIABETES MELLITUS per A.D.A. criteria. Performed By: #### L 100.0100, L501.9985, L300.3900, L501.2450, L500.4050 #### [facility] [address] [place], [address] Potassium [Moles/Vol] 4.2 mmol/L Normal 3.5-5.1 [facility] Comment on above: Order Comment: Order Date: 03/08/24 Order Info: 0786- - [facility] Order Info: 3040-3 - LIPASE Performed By: #### L 100.0100, L501.9985, L300.3900, L501.2450, L500.4050 #### [facility] [address] [place], [address] Sodium [Moles/Vol] 137 mmol/L Normal 136-145 [facility] Comment on above: Order Comment: Order Date: 03/08/24 Order Info: 0786-1 - CMP Order Info: 3040-3 - LIPASE Performed By: #### L 100.0100, L501.9985, L300.3900, L501.2450, L500.4050 #### [facility] [address] [place], [address] T PROT 7.1 g/dL Normal 6.4-8.2 [facility] Comment on above: Order Comment: Order Date: 03/08/24 Order Info: 0786-1 - CMP Order Info: 3040-3 - LIPASE Performed By: #### L 100.0100, L501.9985, L300.3900, L501.2450, L500.4050 #### [facility] [address] [place], [address] Urea nitrogen [Mass/Vol] 34 mg/dL High 7-18 [facility] Comment on above: Order Comment: Order Date: 03/08/24 Order Info: 0786-1 - CMP Order Info: 3040-3 - LIPASE Performed By: #### L 100.0100, L501.9985, L300.3900, L501.2450, L500.4050 #### [facility] [address] [place], [address] Hemoglobin A1con 04-13-2024 HbA1c (Bld) [Mass fraction] 7.4 % High 3.8-5.6 [facility] Comment on above: Order Comment: Order Date: 03/08/24Order Info: 4548-4 - A1C Result Comment: Norm al < 5.7 % Prediabetic 5.7 - 6.4 % Diabetic >or= 6.5 % Please note range changes. Performed By: #### L 100.0100, L501.9985, L300.3900, L501.2450, L500.4050 ####[facility] [address] [place], [address] Lipaseon 04-13-2024 Lipase [Catalytic activity/Vol] 51 U/L Normal 13-75 [facility] Comment on above: Order Comment: Order Date: 03/08/24 Order Info: 0786-1 - CMP Order Info: 3040-3 - LIPASE Result Comment: Jennifer meier note: LIPASE revised reference range effective 22. New Lipase methodology. Expected to produce lower values than the previous assay method. NEW Reference Range: 13 - 75 U/L Performed By: #### L 100.0100, L501.9985, L300.3900, L501.2450, L500.4050 #### [facility] [address] [place], [address] Prothrombin Time w/INRon INR Coag (PPP) [Relative time] 2.0 {INR} Normal [facility] Comment on above: Order Comment: Order Date: 03/08/24 Order Info: 6301-6 - PT Performed By: #### L 100.0100, L501.9985, L300.3900, L501.2450, L500.4050 #### [facility] [address] [place], [address] PT Coag (PPP) [Time] 22.3 s High 11.7-14.9 [facility] Comment on above: Order Comment: Order Date: 03/08/24 Order Info: 6301-6 - PT Performed By: #### L 100.0100, L501.9985, L300.3900, L501.2450, L500.4050 #### [facility] [address] [place], [address] Absolute lymphocyte countOrd ered By: Key Jasso on 12-07-2023 Lymphocytes Auto (Unsp spec) [#/Vol] 1.10 10*3/uL 0.83-4.51 [facility] Automated lymphocyte count a s percentage of total leukocytesOrdered By: Key Jasso on 12-07-2023 Lymphocytes/100 WBC Auto (Unsp spec) 13.9 % 19-41 [facility] Basophil percentageOrdered B y: Key Jasso on 12-07-2023 Basophils/100 WBC (Bld) 0.9 % 0-1 [facility] Bilirubin [Mass/Vol] 0.60 mg/dL 0.20-1.00 [facility] Comment on above: For patients on eltr ombopag therapy, use of [facility] TBIL is not recommended. Chloride [Moles/Vol] 109 mmol/L 98-107 [facility] Eosinophils/100 WBC (Bld) 1.4 % 0-5 [facility] Glucose [Mass/Vol] 177 mg/dL 74-106 [facility] Comment on above: Fasting Glucose resu lt greater than or equal to 126 mg/dL suggests DIABETES MELLITUS per A.D.A. criteria. Hemoglobin (Bld) [Mass/Vol] 15.4 g/dL 13.0-16.5 [facility] Monocytes/100 WBC (Bld) 6.4 % 0-10 [facility] Neutrophils (Bld) [#/Vol] 6.1 10*3/uL 2.0-7.7 [facility] Neutrophils/100 WBC (Bld) 76.4 % 47-70 [facility] Potassium [Moles/Vol] 4.1 mmol/L 3.5-5.1 [facility] Protein [Mass/Vol] 7.5 g/dL 6.4-8.2 [facility] Sodium [Moles/Vol] 139 mmol/L 136-145 [facility] WBC (Bld) [#/Vol] 7.9 10*3/uL 4.4-11.0 [facility] Determination of erythrocyte mean corpuscular volume (MCV)Ordered By: Key Jasso on 12-07-2023 MCV (RBC) [Entitic vol] 96.2 fL 80-94 [facility] Erythrocyte distribution wid th ratioOrdered By: Key Jasso on 12-07-2023 Erythrocyte distribution width (RBC) [Ratio] 15.2 % 11.6-14.6 [facility] Erythrocyte distribution wid th standard deviationOrdered By: Key Jasso on 12-07-2023 Erythrocyte distribution width (RBC) [Entitic vol] 53.8 fL 35.1-43.9 [facility] Hematocrit Auto (Bld) [Volum e fraction]Ordered By: Key Jasso on 12-07-2023 Hematocrit (Bld) [Volume fraction] 47.9 % 40-54 [facility] Immature granulocytes/100 WB C Auto (Bld)Ordered By: Key Jasso on 12-07-2023 Immature granulocytes/100 WBC (Bld) 1.000 % 0.0-0.9 [facility] Comment on above: IG% - Immature Granu locytes (promyelocytes, myelocytes and metamyelocytes) > 1% indicates that a LEFT SHIFT is Present. Laboratory - Chemistry and C hemistry - challengeOrdered By: Key Jasso on 12-07-2023 Albumin/Globulin [Mass ratio] 0.9 {ratio} 0.9-2.4 [facility] ALP [Catalytic activity/Vol] 68 U/L 45-117 [facility] ALT [Catalytic activity/Vol] 25 U/L 16-61 [facility] CO2 [Moles/Vol] 24.0 mmol/L 21.0-32.0 [facility] Ferritin [Mass/Vol] 77 ng/mL 26-388 [facility] Globulin (S) [Mass/Vol] 4.0 g/dL 2.2-4.2 [facility] Urea nitrogen/Creatinine [Mass ratio] 20.1 mg/mg 10-20 [facility] - Hematology and Cell countsOrdered By: Key Jasso on 12-07-2023 MCH (RBC) [Entitic mass] 30.9 pg 27.0-32.0 [facility] MCHC (RBC) [Mass/Vol] 32.2 g/dL 32-36 [facility] Nucleated RBC/100 WBC (Bld) [Ratio] 0 % 0-5 [facility] Platelet mean volume (Bld) [Entitic vol] 10.6 fL 6.2-12.0 [facility] Platelets (Bld) [#/Vol] 275 10*3/uL 150-450 [facility] No Panel InformationOrdered By: Key Jasso on 12-07-2023 Estimated GFR (MDRD) Amer 58 mL/min >60 [facility] Comment on above: GFR Calc Estimated GFR (MDRD) Non-Af Amer 48 mL/min >60 [facility] Comment on above: Non- GFR Calc Parathyroid Hormone (Intact) 33.6 pg/mL 18.4-80.1 [facility] Urine Microalbumin/Creatinin e Ratio 47.9 mg/g CRE <30 [facility] RBC Auto (Bld) [#/Vol]Ordere d By: Key Jasso on 12-07-2023 RBC (Bld) [#/Vol] 4.98 10*6/uL 4.6-6.2 [facility] Serum or plasma calcium lisa urement (mass/volume)Ordered By: Key Jasso on 12-07-2023 Calcium [Mass/Vol] 9.3 mg/dL 8.5-10.1 [facility] Serum or plasma creatinine m easurement (mass/volume)Ordered By: Key Jasso on 12-07-2023 Creatinine [Mass/Vol] 1.54 mg/dL 0.70-1.30 [facility] Comment on above: The validity of the calculated GFR & GFRAA in patients over 70 years has not been determined. Clinical correlation is essential. Serum or plasma urea nitroge n measurement (mass/volume)Ordered By: Key Jasso on 12-07-2023 Urea nitrogen [Mass/Vol] 31 mg/dL 7-18 [facility] Thin prep Papanicolaou smear with manual screeningOrdered By: Key Jasso on 12-07-2023 Thin prep Papanicolaou smear with manual screening 3.5 g/dL 3.2-5.0 [facility] Thin prep Papanicolaou smear with manual screening 17 U/L 15-37 [facility] Thin prep Papanicolaou smear with manual screening 6 5-15 [facility] Thin prep Papanicolaou smear with manual screening 59.4 mg/L NO RANGE EST. [facility] Urine creatinine measurement (mass/volume)Ordered By: Key Jasso on 12-07-2023 Creatinine (U) [Mass/Vol] 124.00 mg/dL NO RANGE EST. [facility] Basophil percentageOrdered B y: Key Jasso on 07-27-2023 Bilirubin [Mass/Vol] 0.50 mg/dL 0.20-1.00 [facility] Comment on above: For patients on eltr ombopag therapy, use of [facility] TBIL is not recommended. Chloride [Moles/Vol] 108 mmol/L 98-107 [facility] Glucose [Mass/Vol] 217 mg/dL 74-106 [facility] Comment on above: Glucose result great er than or equal to 200 mg/dLsuggests DIABETES MELLITUS per A.D.A. criteria. Potassium [Moles/Vol] 4.4 mmol/L 3.5-5.1 [facility] Protein [Mass/Vol] 6.8 g/dL 6.4-8.2 [facility] Sodium [Moles/Vol] 138 mmol/L 136-145 [facility] - Chemistry and C hemistry - challengeOrdered By: Key Jasso on 07-27-2023 ALP [Catalytic activity/Vol] 71 U/L 45-117 [facility] ALT [Catalytic activity/Vol] 30 U/L 16-61 [facility] CO2 [Moles/Vol] 24.0 mmol/L 21.0-32.0 [facility] Globulin (S) [Mass/Vol] 3.6 g/dL 2.2-4.2 [facility] Urea nitrogen/Creatinine [Mass ratio] 21.7 mg/mg 10-20 [facility] No Panel InformationOrdered By: Key Jasso on 07-27-2023 Estimated GFR (MDRD) Amer 55 mL/min >60 [facility] Comment on above: GFR Calc Estimated GFR (MDRD) Non-Af Amer 45 mL/min >60 [facility] Comment on above: Non- GFR Calc Serum or plasma albumin lisa urement (mass/volume)Ordered By: Key Jasso on 07-27-2023 Albumin [Mass/Vol] 3.2 g/dL 3.2-5.0 [facility] Serum or plasma albumin/glob ulin mass ratioOrdered By: Key Jasso on 07-27-2023 Albumin/Globulin [Mass ratio] 0.9 {ratio} 0.9-2.4 [facility] Serum or plasma calcium lisa urement (mass/volume)Ordered By: Key Jasso on 07-27-2023 Calcium [Mass/Vol] 9.0 mg/dL 8.5-10.1 [facility] Serum or plasma creatinine m easurement (mass/volume)Ordered By: Key Jasso on 07-27-2023 Creatinine [Mass/Vol] 1.61 mg/dL 0.70-1.30 [facility] Comment on above: The validity of the calculated GFR & GFRAA in patients over 70 years has not been determined. Clinical correlation is essential. Serum or plasma urea nitroge n measurement (mass/volume)Ordered By: Key Jasso on 07-27-2023 Urea nitrogen [Mass/Vol] 35 mg/dL 7-18 [facility] Thin prep Papanicolaou smear with manual screeningOrdered By: Key Jasso on 07-27-2023 Thin prep Papanicolaou smear with manual screening 19 U/L 15-37 [facility] Thin prep Papanicolaou smear with manual screening 6 5-15 [facility] Whole blood hemoglobin A1c/t otal hemoglobin ratio (mass fraction)Ordered By: Key Jasso on 07-27-2023 HbA1c (Bld) [Mass fraction] 8.7 % 3.8-5.6 [facility] Comment on above: Normal < 5.7 % Predi abetic 5.7 - 6.4 % Diabetic >or= 6.5 % Please note range changes. Basophil percentageOrdered B y: Key Jasso on 07-06-2023 Bilirubin [Mass/Vol] 0.40 mg/dL 0.20-1.00 [facility] Comment on above: For patients on eltr ombopag therapy, use of [facility] TBIL is not recommended. Chloride [Moles/Vol] 105 mmol/L 98-107 [facility] Glucose [Mass/Vol] 265 mg/dL 74-106 [facility] Comment on above: Glucose result great er than or equal to 200 mg/dLsuggests DIABETES MELLITUS per A.D.A. criteria. Potassium [Moles/Vol] 4.3 mmol/L 3.5-5.1 [facility] Protein [Mass/Vol] 7.2 g/dL 6.4-8.2 [facility] Sodium [Moles/Vol] 134 mmol/L 136-145 [facility] INR in Blood by Coagulation assayOrdered By: Key Jasso on 07-06-2023 INR Coag (Bld) [Relative time] 3.2 {INR} [facility] - Chemistry and C hemistry - challengeOrdered By: Key Jasso on 07-06-2023 ALP [Catalytic activity/Vol] 73 U/L 45-117 [facility] ALT [Catalytic activity/Vol] 35 U/L 16-61 [facility] CO2 [Moles/Vol] 20.0 mmol/L 21.0-32.0 [facility] Globulin (S) [Mass/Vol] 3.9 g/dL 2.2-4.2 [facility] Urea nitrogen/Creatinine [Mass ratio] 20.4 mg/mg 06-05 [facility] - CoagulationOrde red By: Key Jasso on 07-06-2023 PT Coag (PPP) [Time] 33.1 s 11.7-14.9 [facility] No Panel InformationOrdered By: Key Jasso on 07-06-2023 Estimated GFR (MDRD) Amer 59 mL/min >60 [facility] Comment on above: GFR Calc Estimated GFR (MDRD) Non-Af Amer 48 mL/min >60 [facility] Comment on above: Non- GFR Calc Serum or plasma albumin lisa urement (mass/volume)Ordered By: Key Jasso on 07-06-2023 Albumin [Mass/Vol] 3.3 g/dL 3.2-5.0 [facility] Serum or plasma albumin/glob ulin mass ratioOrdered By: Key Jasso on 07-06-2023 Albumin/Globulin [Mass ratio] 0.8 {ratio} 0.9-2.4 [facility] Serum or plasma calcium lisa urement (mass/volume)Ordered By: Key Jasso on 07-06-2023 Calcium [Mass/Vol] 9.4 mg/dL 8.5-10.1 [facility] Serum or plasma creatinine m easurement (mass/volume)Ordered By: Key Jasso on 07-06-2023 Creatinine [Mass/Vol] 1.52 mg/dL 0.70-1.30 [facility] Comment on above: The validity of the calculated GFR & GFRAA in patients over 70 years has not been determined. Clinical correlation is essential. Serum or plasma urea nitroge n measurement (mass/volume)Ordered By: Key Jasso on 07-06-2023 Urea nitrogen [Mass/Vol] 31 mg/dL 7-18 [facility] Thin prep Papanicolaou smear with manual screeningOrdered By: Key Jasso on 07-06-2023 Thin prep Papanicolaou smear with manual screening 19 U/L 15-37 [facility] Thin prep Papanicolaou smear with manual screening 9 5-15 [facility] Basophil percentageOrdered B y: Key Jasso on 06-26-2023 Basophil percentage 3.8 mg/dL 2.5-4.9 [facility] Chloride [Moles/Vol] 103 mmol/L 98-107 [facility] Glucose [Mass/Vol] 202 mg/dL 74-106 [facility] Comment on above: Glucose result great er than or equal to 200 mg/dLsuggests DIABETES MELLITUS per A.D.A. criteria. Potassium [Moles/Vol] 4.6 mmol/L 3.5-5.1 [facility] Comment on above: Slight Hemolysis, Re sult may be falsely increased. Sodium [Moles/Vol] 136 mmol/L 136-145 [facility] INR in Blood by Coagulation assayOrdered By: Key Jasso on 06-26-2023 INR Coag (Bld) [Relative time] 2.9 {INR} [facility] - Chemistry and C hemistry - challengeOrdered By: Key Jasso on 06-26-2023 CO2 [Moles/Vol] 26.0 mmol/L 21.0-32.0 [facility] Magnesium [Mass/Vol] 2.3 mg/dL 1.6-2.6 [facility] Comment on above: Slight Hemolysis, Re sult may be falsely increased. Urea nitrogen/Creatinine [Mass ratio] 22.2 mg/mg 06-05 [facility] - CoagulationOrde red By: Key Jasso on 06-26-2023 PT Coag (PPP) [Time] 30.3 s 11.7-14.9 [facility] No Panel InformationOrdered By: Key Jasso on 06-26-2023 Estimated GFR (MDRD) Amer 44 mL/min >60 [facility] Comment on above: GFR Calc Estimated GFR (MDRD) Non-Af Amer 37 mL/min >60 [facility] Comment on above: Non- GFR Calc Serum or plasma albumin lisa urement (mass/volume)Ordered By: Key Jasso on 06-26-2023 Albumin [Mass/Vol] 3.4 g/dL 3.2-5.0 [facility] Serum or plasma calcium lisa urement (mass/volume)Ordered By: Key Jasso on 06-26-2023 Calcium [Mass/Vol] 9.3 mg/dL 8.5-10.1 [facility] Serum or plasma creatinine m easurement (mass/volume)Ordered By: Key Jasso on 06-26-2023 Creatinine [Mass/Vol] 1.94 mg/dL 0.70-1.30 [facility] Comment on above: The validity of the calculated GFR & GFRAA in patients over 70 years has not been determined. Clinical correlation is essential. Serum or plasma urea nitroge n measurement (mass/volume)Ordered By: Key Jasso on 06-26-2023 Urea nitrogen [Mass/Vol] 43 mg/dL 7-18 [facility] Absolute lymphocyte countOrd ered By: Key Jasso on 06-22-2023 Lymphocytes Auto (Unsp spec) [#/Vol] 1.45 10*3/uL 0.83-4.51 [facility] Basophil percentageOrdered B y: Key Jasso on 06-22-2023 Basophil percentage 0 SEEN /hpf 0-5 [facility] Basophil percentage 3.8 mg/dL 2.5-4.9 [facility] Basophils/100 WBC (Bld) 0.8 % 0-1 [facility] Bilirubin [Mass/Vol] 0.90 mg/dL 0.20-1.00 [facility] Comment on above: For patients on eltr ombopag therapy, use of [facility] TBIL is not recommended. Chloride [Moles/Vol] 103 mmol/L 98-107 [facility] Cholesterol [Mass/Vol] 270 mg/dL <200 [facility] Comment on above: <200 mg/dL Desirable 200-240 mg/dL Borderline >240 mg/dL High Risk Eosinophils/100 WBC (Bld) 1.0 % 0-5 [facility] Glucose [Mass/Vol] 215 mg/dL 74-106 [facility] Comment on above: Glucose result great er than or equal to 200 mg/dLsuggests DIABETES MELLITUS per A.D.A. criteria. Neutrophils (Bld) [#/Vol] 4.9 10*3/uL 2.0-7.7 [facility] Neutrophils/100 WBC (Bld) 68.9 % 47-70 [facility] Potassium [Moles/Vol] 4.5 mmol/L 3.5-5.1 [facility] Comment on above: Slight Hemolysis, Re sult may be falsely increased. Protein [Mass/Vol] 7.2 g/dL 6.4-8.2 [facility] Sodium [Moles/Vol] 134 mmol/L 136-145 [facility] Triglyceride [Mass/Vol] 712 mg/dL <199 [facility] Comment on above: The drugs N-Acetylcy steine and Metamizole may falsely depress this assay. TRIGLYCERIDE IS GREATER THAN 400 mg/dL. LDL RESULT IS INVALID AND WILL NOT BE REPORTED.Serum Triglycerides Reference Interval Normal <150 mg/dL Borderline high 150 - 199 mg/dL High 200 - 499 mg/dL Very High > or = 500 mg/dL WBC (Bld) [#/Vol] 7.1 10*3/uL 4.4-11.0 [facility] Bilirubin Test strip Ql (U)O rdered By: Key Jasso on 06-22-2023 Bilirubin Ql (U) Negative Negative [facility] Blood erythrocytes count (nu mber/volume)Ordered By: Key Jasso on 06-22-2023 RBC (Bld) [#/Vol] 5.12 10*6/uL 4.6-6.2 [facility] Blood hemoglobin measurement (mass/volume)Ordered By: Key Jasso on 06-22-2023 Hemoglobin (Bld) [Mass/Vol] 15.4 g/dL 13.0-16.5 [facility] Blood lymphocytes/100 leukoc ytesOrdered By: Key Jasso on 06-22-2023 Lymphocytes/100 WBC (Bld) 20.5 % 19-41 [facility] Blood monocytes/100 leukocyt esOrdered By: Key Jasso on 06-22-2023 Monocytes/100 WBC (Bld) 8.1 % 0-10 [facility] Blood platelet mean volumeOr dered By: Key Jasso on 06-22-2023 Platelet mean volume (Bld) [Entitic vol] 9.9 fL 6.2-12.0 [facility] Determination of erythrocyte mean corpuscular volume (MCV)Ordered By: Key Jasso on 06-22-2023 MCV (RBC) [Entitic vol] 95.3 fL 80-94 [facility] Direct bilirubinOrdered By: Key Jasso on 06-22-2023 Bilirubin.direct [Mass/Vol] 0.09 mg/dL 0.00-0.30 [facility] Hematocrit Auto (Bld) [Volum e fraction]Ordered By: Key Jasso on 06-22-2023 Hematocrit (Bld) [Volume fraction] 48.8 % 40-54 [facility] INR in Blood by Coagulation assayOrdered By: Key Jasso on 06-22-2023 INR Coag (Bld) [Relative time] 2.3 {INR} [facility] Ketones Test strip Ql (U)Ord ered By: Key Jasso on 06-22-2023 Ketones Ql (U) Negative Negative [facility] Laboratory - Chemistry and C hemistry - challengeOrdered By: Key Jasso on 06-22-2023 ALP [Catalytic activity/Vol] 85 U/L 45-117 [facility] ALT [Catalytic activity/Vol] 46 U/L 16-61 [facility] CO2 [Moles/Vol] 22.0 mmol/L 21.0-32.0 [facility] Globulin (S) [Mass/Vol] 3.8 g/dL 2.2-4.2 [facility] Urea nitrogen/Creatinine [Mass ratio] 22.2 mg/mg 10-20 [facility] Laboratory - CoagulationOrde red By: Key Jasso on 06-22-2023 PT Coag (PPP) [Time] 25.8 s 11.7-14.9 [facility] Laboratory - Hematology and Cell countsOrdered By: Key Jasso on 06-22-2023 Erythrocyte distribution width (RBC) [Entitic vol] 59.3 fL 35.1-43.9 [facility] Erythrocyte distribution width (RBC) [Ratio] 17.1 % 11.6-14.6 [facility] Immature granulocytes/100 WBC (Bld) 0.700 % 0.0-0.9 [facility] Comment on above: IG% - Immature Granu locytes (promyelocytes, myelocytes and metamyelocytes) > 1% indicates that a LEFT SHIFT is Present. MCH (RBC) [Entitic mass] 30.1 pg 27.0-32.0 [facility] Nucleated RBC/100 WBC (Bld) [Ratio] 0 % 0-5 [facility] MCHC Auto (RBC) [Mass/Vol]Or dered By: Key Jasso on 06-22-2023 MCHC (RBC) [Mass/Vol] 31.6 g/dL 32-36 [facility] Mucus LM Ql (Urine sed)Order ed By: Key Jasso on 06-22-2023 Mucus Ql (Urine sed) 0 SEEN /hpf [facility] Nitrite Test strip Ql (U)Ord ered By: Key Jasso on 06-22-2023 Nitrite Ql (U) Negative Negative [facility] No Panel InformationOrdered By: Key Jasso on 06-22-2023 Estimated GFR (MDRD) Amer 38 mL/min >60 [facility] Comment on above: GFR Calc Estimated GFR (MDRD) Non-Af Amer 31 mL/min >60 [facility] Comment on above: Non- GFR Calc Urine Microalbumin/Creatinin e Ratio 48.5 mg/g CRE <30 [facility] Platelets bldOrdered By: Colleen Jasso on 06-22-2023 Platelets (Bld) [#/Vol] 293 10*3/uL 150-450 [facility] Protein Test strip Ql (U)Ord ered By: Key Jasso on 06-22-2023 Protein Ql (U) 15 mg/dl Negative [facility] Serum or plasma albumin lisa urement (mass/volume)Ordered By: Key Jasso on 06-22-2023 Albumin [Mass/Vol] 3.4 g/dL 3.2-5.0 [facility] Serum or plasma albumin/glob ulin mass ratioOrdered By: Key Jasso on 06-22-2023 Albumin/Globulin [Mass ratio] 0.9 {ratio} 0.9-2.4 [facility] Serum or plasma calcium lisa urement (mass/volume)Ordered By: Key Jasso on 06-22-2023 Calcium [Mass/Vol] 8.9 mg/dL 8.5-10.1 [facility] Serum or plasma cholesterol in HDL measurement (mass/volume)Ordered By: Key Jasso on 06-22-2023 Cholesterol in HDL [Mass/Vol] 31 mg/dL >40 [facility] Comment on above: The drugs N-Acetylcy steine and Metamizole may falsely depress this assay. Reference Range HDL <40 mg/dL Low HDL Cholesterol HDL >or= 60 mg/dL High HDL Cholesterol Serum or plasma cholesterol in VLDL measurement (mass/volume)Ordered By: Key Jasso on 06-22-2023 Cholesterol in VLDL [Mass/Vol] [facility] Comment on above: Test not performed Serum or plasma creatinine m easurement (mass/volume)Ordered By: Key Jasso on 06-22-2023 Creatinine [Mass/Vol] 2.21 mg/dL 0.70-1.30 [facility] Comment on above: The validity of the calculated GFR & GFRAA in patients over 70 years has not been determined. Clinical correlation is essential. Serum or plasma low density lipoprotein (LDL) cholesterol measurement (mass/volume)Ordered By: Key Jasso on 06-22-2023 Cholesterol in LDL [Mass/Vol] [facility] Comment on above: Test not performed Serum or plasma urea nitroge n measurement (mass/volume)Ordered By: Key Jasso on 06-22-2023 Urea nitrogen [Mass/Vol] 49 mg/dL 7-18 [facility] Squamous epithelial cells de tection in urine sediment by light microscopyOrdered By: Key Jasso on 06-22-2023 Epithelial cells.squamous LM Ql (Urine sed) 0 SEEN /hpf 0-5 [facility] Thin prep Papanicolaou smear with manual screeningOrdered By: Key Jasso on 06-22-2023 Thin prep Papanicolaou smear with manual screening 26 U/L 15-37 [facility] Comment on above: Slight Hemolysis, Re sult may be falsely increased. Thin prep Papanicolaou smear with manual screening 9 5-15 [facility] Thin prep Papanicolaou smear with manual screening 44.0 mg/L NO RANGE EST. [facility] Urine blood detectionOrdered By: Key Jasso on 06-22-2023 RBC Ql (U) Negative Negative [facility] RBC Ql (U) 0 SEEN /hpf 0-5 [facility] Urine clarityOrdered By: Colleen Jasso on 06-22-2023 Clarity (U) Clear Clear [facility] Urine color determinationOrd ered By: Key Jasso on 06-22-2023 Color (U) Yellow Yellow [facility] Urine creatinine measurement (mass/volume)Ordered By: Key Jasso on 06-22-2023 Creatinine (U) [Mass/Vol] 90.70 mg/dL NO RANGE EST. [facility] Urine glucose detectionOrder ed By: Key Jasso on 06-22-2023 Glucose Ql (U) 1000 mg/dl Normal [facility] Urine leukocyte esterase det ection by dipstickOrdered By: Key Jasso on 06-22-2023 Leukocyte esterase Test strip Ql (U) Negative Negative [facility] Urine pHOrdered By: Key dewitt on 06-22-2023 pH (U) 5.0 [pH] 5.0 - 8.0 [facility] Urine sediment bacteria coun t by microscopy (number/high power field)Ordered By: Key Jasso on 06-22-2023 Bacteria LM.HPF (Urine sed) [#/Area] 0 /[HPF] None Seen [facility] Urine specific gravity measu rementOrdered By: Key Jasso on 06-22-2023 Specific gravity (U) [Rel density] 1.015 1.002-1.030 [facility] Urobilinogen Auto test strip Ql (U)Ordered By: Key Jasso on 06-22-2023 Urobilinogen Ql (U) Normal mg/dl Normal [facility] Whole blood hemoglobin A1c/t otal hemoglobin ratio (mass fraction)Ordered By: Key Jasso on 06-22-2023 HbA1c (Bld) [Mass fraction] 8.5 % 3.8-5.6 [facility] Comment on above: Normal < 5.7 % Predi abetic 5.7 - 6.4 % Diabetic >or= 6.5 % Please note range changes. CT FACIAL BONES WO IV CONTRA STon 06-19-2023 CT FACIAL BONES WO IV CONTRAST Interpreted By: Christopher Oconnell, Mani Green STUDY: CT FACIAL BONES WO IV CONTRAST 06/19/2023 8:30 am INDICATION: Signs/Symptoms:osteomyeli tis of maxilla COMPARISON: None. ACCESSION NUMBER(S): [id number] ORDERING CLINICIAN: NATIVIDAD RODRIGUEZ TECHNIQUE: Thin cut [...] Nuñez MD. This study was interpreted at [facility], [place], [place]. MACRO: None Signed by: Christopher Oconnell 06/19/2023 10:11 AM Dictation workstation: [id number] [facility] Comment on above: Order Comment: Daniel Martines elected: Y CT Maxillofacial region WO raimundo clemente 06-19-2023 Status post maxillec marla with myocutaneous flap reconstruction. No evidence of osteomyelitis. Improved now trace left mastoid effusion. I personally reviewed the images/study and I agree with the findings as stated by Peter Nuñez MD. This study was interpreted at [facility], [place], [place]. MACRO: None Signed by: Christopher Oconnell 06/19/2023 10:11 AM Dictation workstation: [id number] [facility] Interpreted By: Christopher Crook, and Joaquin Green STUDY: CT FACIAL BONES WO IV CONTRAST 06/19/2023 8:30 am INDICATION: Signs/Symptoms:osteomyeli tis of maxilla COMPARISON: None. ACCESSION NUMBER(S): [id number] ORDERING CLINICIAN: NATIVIDAD RODRIGUEZ TECHNIQUE: Thin cut [...] tis of maxilla COMPARISON: None. ACCESSION NUMBER(S): [id number] ORDERING CLINICIAN: NATIVIDAD RODRIGUEZ TECHNIQUE: Thin cut [...] Nuñez MD. This study was interpreted at [place], [place]. MACRO: None Signed by: Christopher Oconnell 06/19/2023 10:11 AM Dictation workstation: [id number] [facility] Work Phone: Radiology Study observation (narrative) [facility] Work Phone: CT Maxillofacial region WO c ontrastOrdered By: Christopher Oconnell on 06-19-2023 [facility] Work Phone: Blood Urea Nitrogen, Serumon 05-04-2023 Urea nitrogen [Mass/Vol] 29 mg/dL above high threshold 6 - 23 [facility] Work Phone: CREATININEon 05-04-2023 Creatinine [Mass/Vol] 1.68 mg/dL High 0.50 - 1.30 [facility] Comment on above: Performed By: #### C REAT ####[id number] [place] [address] GFR/1.73 sq M.predicted among non-blacks MDRD (S/P/Bld) [Vol rate/Area] 43 mL/min/{1.73_m2} Abnormal >90 [facility] Comment on above: Result Comment: CALC ULATIONS OF ESTIMATED GFR ARE PERFORMED USING THE 2020 CKD-EPI STUDY REFIT EQUATION WITHOUT THE RACE VARIABLE FOR THE IDMS-TRACEABLE CREATININE METHODS.https://jasn.asnjournals.org/content/early/A SN.5097406329 Performed By: #### C REAT ####[id number] [place] [address] Creatinine, Serumon 05-04-20 23 Creatinine [Mass/Vol] 1.68 [...] RACE VARIABLE FOR THE IDMS-TRACEABLE CREATININE METHODS.https://jasn.asnjournals.org/content/early/A SN.6117489976 Tobacco Screening.on 023 Adult depression screening assessment No [facility] Work Phone: Fall risk assessment a) No falls within the last year [facility]aryn [facility] 4100 Work Phone: Tobacco use status CPHS b) No [facility]tolaryn gology-[facility] 4100 Work Phone: UREA NITROGENon 05-04-2023 Urea nitrogen [Mass/Vol] 29 mg/dL High 6 - 23 [facility] Comment on above: Performed By: #### U JOAQUINA ####[id number] [place] [address] ID - Follow Upon 03-31-2023 ID - [...] outside providers and finally was referred to [facility]-- in October underwent surgery and [...] SPRAYS IN EACH NOSTRIL ONCE DAILY; Therapy: [id number] to (Last Rx:[id number]) Requested for: 25Nov2022 Ordered Rx By: Natividad Rodriguez; Dispense: 0 Days ; #:1 X 15.8 ML Bottle; Refill: 12;For: Chronic sinusitis; KIA = N; Verified Transmission to [facility] #[id number] Chlorhexidine Gluconate 0.12 % Mouth/Throat Solution; RINSE MOUTH WITH 15ML (1 CAPFUL) FOR 30 SECONDS AM AND PM AFTER TOOTHBRUSHING. 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; Verified Transmission to [facility] #[id number] Doxycycline Hyclate 100 MG Oral Capsule; Take 1 capsule twice daily; Therapy: 19Dec2022 to (Evaluate:28Dec2023) Requested for: 02Jan2023; Last Rx:[id number] Ordered Rx By: Sadia Dickson; Dispense: 90 Days ; #:180 Capsule; Refill: 3;For: Osteomyelitis of maxilla; KIA = N; Verified Transmission to [facility] #[id number]; Last Updated By: [employer]; 03/31/2023 10:28:20 AM Chlorhexidine Gluconate 0.12 % [...] Chief Complaint follow up History of Present [id number] yo man who presents for evaluation of [...] Tablet Zinc TABS Vitals Vital Signs Recorded: [id number] 10:41AM Qzfbwqqfgth21.8 F Height6 ft 1 in Jbeeda874 lb BMI Dmeexqslwo86.41 kg/m2 BSA Calculated2.47 Tobacco Useb) No PHQ-2 [...] Feb 23 2023 11:01AM EST (Author) Normal [employer] Absolute lymphocyte countOrd ered By: Key Jasso on 02-20-2023 Lymphocytes Auto (Unsp spec) [#/Vol] 1.54 10*3/uL 0.83-4.51 [facility] Basophil percentageOrdered B y: Keynevin Jasso on 02-20-2023 Basophils/100 WBC (Bld) 0.6 % 0-1 [facility] Bilirubin [Mass/Vol] 0.40 mg/dL 0.20-1.00 [facility] Comment on above: For patients on eltr ombopag therapy, use of [facility] TBIL is not recommended. Chloride [Moles/Vol] 103 mmol/L 98-107 [facility] Eosinophils/100 WBC (Bld) 2.3 % 0-5 [facility] Glucose [Mass/Vol] 257 mg/dL 74-106 [facility] Comment on above: Glucose result great er than or equal to 200 mg/dLsuggests DIABETES MELLITUS per A.D.A. criteria. Neutrophils (Bld) [#/Vol] 7.0 10*3/uL 2.0-7.7 [facility] Neutrophils/100 WBC (Bld) 73.5 % 47-70 [facility] Potassium [Moles/Vol] 4.2 mmol/L 3.5-5.1 [facility] Comment on above: Slight Hemolysis, Re sult may be falsely increased. Protein [Mass/Vol] 7.3 g/dL 6.4-8.2 [facility] Sodium [Moles/Vol] 135 mmol/L 136-145 [facility] WBC (Bld) [#/Vol] 9.5 10*3/uL 4.4-11.0 [facility] Blood erythrocytes count (nu mber/volume)Ordered By: Key Jasso on 02-20-2023 RBC (Bld) [#/Vol] 4.82 10*6/uL 4.6-6.2 [facility] Blood hemoglobin measurement (mass/volume)Ordered By: Key Jasso on 02-20-2023 Hemoglobin (Bld) [Mass/Vol] 14.3 g/dL 13.0-16.5 [facility] Blood lymphocytes/100 leukoc ytesOrdered By: Key Jasso on 02-20-2023 Lymphocytes/100 WBC (Bld) 16.2 % 19-41 [facility] Blood monocytes/100 leukocyt esOrdered By: Key Jasso on 02-20-2023 Monocytes/100 WBC (Bld) 6.5 % 0-10 [facility] Blood platelet mean volumeOr dered By: Key Jasso on 02-20-2023 Platelet mean volume (Bld) [Entitic vol] 10.6 fL 6.2-12.0 [facility] Determination of erythrocyte mean corpuscular volume (MCV)Ordered By: Key Jasso on 02-20-2023 MCV (RBC) [Entitic vol] 95.9 fL 80-94 [facility] Erythrocyte sedimentation ra teOrdered By: Key Jasso on 02-20-2023 ESR (Bld) [Velocity] 37 mm/h 0-20 [facility] Hematocrit Auto (Bld) [Volum e fraction]Ordered By: Key Jasso on 02-20-2023 Hematocrit (Bld) [Volume fraction] 46.2 % 40-54 [facility] Laboratory - Chemistry and C hemistry - challengeOrdered By: Key Jasso on 02-20-2023 ALP [Catalytic activity/Vol] 81 U/L 45-117 [facility] ALT [Catalytic activity/Vol] 33 U/L 16-61 [facility] CO2 [Moles/Vol] 26.0 mmol/L 21.0-32.0 [facility] Globulin (S) [Mass/Vol] 4.1 g/dL 2.2-4.2 [facility] Urea nitrogen/Creatinine [Mass ratio] 17.0 mg/mg 10-20 [facility] Laboratory - Hematology and Cell countsOrdered By: Key Jasso on 02-20-2023 Erythrocyte distribution width (RBC) [Entitic vol] 50.7 fL 35.1-43.9 [facility] Erythrocyte distribution width (RBC) [Ratio] 14.5 % 11.6-14.6 [facility] Immature granulocytes/100 WBC (Bld) 0.900 % 0.0-0.9 [facility] Comment on above: IG% - Immature Granu locytes (promyelocytes, myelocytes and metamyelocytes) > 1% indicates that a LEFT SHIFT is Present. MCH (RBC) [Entitic mass] 29.7 pg 27.0-32.0 [facility] Nucleated RBC/100 WBC (Bld) [Ratio] 0 % 0-5 [facility] MCHC Auto (RBC) [Mass/Vol]Or dered By: Key Jasso on 02-20-2023 MCHC (RBC) [Mass/Vol] 31.0 g/dL 32-36 [facility] No Panel InformationOrdered By: Key Jasso on 02-20-2023 Estimated GFR (MDRD) Amer 41 mL/min >60 [facility] Comment on above: GFR Calc Estimated GFR (MDRD) Non-Af Amer 34 mL/min >60 [facility] Comment on above: Non- GFR Calc Platelets bldOrdered By: Colleen Jasso on 02-20-2023 Platelets (Bld) [#/Vol] 362 10*3/uL 150-450 [facility] Serum or plasma albumin lisa urement (mass/volume)Ordered By: Key Jasso on 02-20-2023 Albumin [Mass/Vol] 3.2 g/dL 3.2-5.0 [facility] Serum or plasma albumin/glob ulin mass ratioOrdered By: Key Jasso on 02-20-2023 Albumin/Globulin [Mass ratio] 0.8 {ratio} 0.9-2.4 [facility] Serum or plasma calcium lisa urement (mass/volume)Ordered By: Key Jasso on 02-20-2023 Calcium [Mass/Vol] 8.9 mg/dL 8.5-10.1 [facility] Serum or plasma creatinine m easurement (mass/volume)Ordered By: Key Jasso on 02-20-2023 Creatinine [Mass/Vol] 2.06 mg/dL 0.70-1.30 [facility] Comment on above: The validity of the calculated GFR & GFRAA in patients over 70 years has not been determined. Clinical correlation is essential. Serum or plasma urea nitroge n measurement (mass/volume)Ordered By: Key Jasso on 02-20-2023 Urea nitrogen [Mass/Vol] 35 mg/dL 7-18 [facility] Thin prep Papanicolaou smear with manual screeningOrdered By: Key Jasso on 02-20-2023 Thin prep Papanicolaou smear with manual screening 29 U/L 15-37 [facility] Comment on above: Slight Hemolysis, Re sult may be falsely increased. Thin prep Papanicolaou smear with manual screening 6 5-15 [facility] Whole blood hemoglobin A1c/t otal hemoglobin ratio (mass fraction)Ordered By: Key Jasso on 02-20-2023 HbA1c (Bld) [Mass fraction] 8.2 % 3.8-5.6 [facility] Comment on above: Normal < 5.7 % [...] Referring Provider: Dr. Key Jasso and Dr. Sutheralnd Location: left maxilla Quality: fistula, necrotic bone, [...] Screening.on 023 Adult depression screening assessment No [facility] Work Phone: Fall risk assessment a) No falls within the last year [facility] 4100 Work Phone: Tobacco use status CPHS b) No -[facility] 4[facility] Work Phone: Established Visit (Otolaryng ology)on 01-19-2023 [...] Mens TABS (more content not included)... Normal [facility] Height or Weight NOT Doneon 01-19-2023 Adult depression screening assessment No [facility] 4100 Work Phone: Fall risk assessment a) No falls within the last year [facility] 4100 Work Phone: Tobacco use status CPHS b) No [facility] 4100 Work Phone: C Reactive Protein, Serumon 01-13-2023 CRP [Mass/Vol] 0.42 mg/dL [facility] 4100 Work Phone: Comment on above: REF VALUE< 1.00 C-REACTIVE PROTEINon 05-30-2 023 C-REACTIVE PROTEIN 0.42 mg/dL Normal [facility] Comment on above: Result Comment: REF VALUE< 1.00 Performed By: #### C RP ####[address] [address] CBC AND DIFFERENTIALon 01-13 % AUTOMATED IMMATURE GRAN 0.7 % Normal 0.0 - 0.9 [facility] Comment on above: Result Comment: Sarah ture Granulocyte Count (IG) includes promyelocytes, myelocytes and metamyelocytes but does not include bands. Percent differential counts (%) should be interpreted in the context of the absolute cell counts (cells/L). Performed By: #### C BCDF ####[place] [id number] Basophils (Bld) [#/Vol] 0.05 10*3/uL Normal 0.00 - 0.10 [facility] Comment on above: Performed By: #### C BCDF ####[place] [id number] Basophils/100 WBC (Bld) 0.5 % Normal 0.0 - 2.0 [facility] Comment on above: Performed By: #### C BCDF ####[address] [address] Eosinophils (Bld) [#/Vol] 0.17 10*3/uL Normal 0.00 - 0.70 [facility] Comment on above: Performed By: #### C BCDF ####[address] [address] Eosinophils/100 WBC (Bld) 1.7 % Normal 0.0 - 6.0 [facility] Comment on above: Performed By: #### C BCDF ####[address] [address] Erythrocyte distribution width (RBC) [Ratio] 14.8 % High 11.5 - 14.5 [facility] Comment on above: Performed By: #### C BCDF ####[address] [address] Hematocrit (Bld) [Volume fraction] 42.2 % Normal 41.0 - 52.0 [facility] Comment on above: Performed By: #### C BCDF ####[address] [address] Hemoglobin (Bld) [Mass/Vol] 13.4 g/dL Low 13.5 - 17.5 [facility] Comment on above: Performed By: #### C BCDF ####[address] [address] Lymphocytes (Bld) [#/Vol] 1.64 10*3/uL Normal 1.20 - 4.80 [facility] Comment on above: Performed By: #### C BCDF ####[address] [address] Lymphocytes/100 WBC (Bld) 16.8 % Normal 13.0 - 44.0 [facility] Comment on above: Performed By: #### C BCDF ####[address] [address] MCHC (RBC) [Mass/Vol] 31.8 g/dL Low 32.0 - 36.0 [facility] Comment on above: Performed By: #### C BCDF ####[address] [address] MCV (RBC) [Entitic vol] 96 fL Normal 80 - 100 [facility] Comment on above: Performed By: #### C BCDF ####[address] [address] Monocytes (Bld) [#/Vol] 0.75 10*3/uL Normal 0.10 - 1.00 [facility] Comment on above: Performed By: #### C BCDF ####[address] [address] Monocytes/100 WBC (Bld) 7.7 % Normal 2.0 - 10.0 [facility] Comment on above: Performed By: #### C BCDF ####[address] [address] Neutrophils (Bld) [#/Vol] 7.09 10*3/uL Normal 1.20 - 7.70 [facility] Comment on above: Result Comment: Perc ent differential counts (%) should be interpreted in the context of the absolute cell counts (cells/L). Performed By: #### C BCDF ####[address] [address] Neutrophils/100 WBC (Bld) 72.6 % Normal 40.0 - 80.0 [facility] Comment on above: Performed By: #### C BCDF ####[address] [address] Platelets (Bld) [#/Vol] 367 10*3/uL Normal 150 - 450 [facility] Comment on above: Performed By: #### C BCDF ####[address] [address] RBC 4.42 x10E12/L Low 4.50 - 5.90 [facility] Comment on above: Performed By: #### C BCDF ####[address] [address] WBC (Bld) [#/Vol] 9.8 10*3/uL Normal 4.4 - 11.3 [facility] Comment on above: Performed By: #### C BCDF ####[address] [address] Complete Blood Count + Diffe cathiroqueon 01-13-2023 Basophils/100 WBC (Bld) 0.5 % 0.0 - 2.0 [facility] 4100 Work Phone: Erythrocyte distribution width (RBC) [Ratio] 14.8 % above high threshold See Below [facility] 4100 Work Phone: Comment on above: Reference Range: 11. 5 - 14.5 Hematocrit (Bld) [Volume fraction] 42.2 % See Below [facility] 4100 Work Phone: Comment on above: Reference Range: 41. 0 - 52.0 Hemoglobin (Bld) [Mass/Vol] 13.4 g/dL below low threshold See Below [place] [address] Work Phone: [phone] Comment on above: Reference Range: 13. 5 - 17.5 Lymphocytes/100 WBC (Bld) 16.8 % See Below MG-Otolaryn gology-[place] [address] Work Phone: [phone] Comment on above: Reference Range: 13. 0 - 44.0 MCHC (RBC) [Mass/Vol] 31.8 g/dL below low threshold See Below -[place] [address] Work Phone: [phone] Comment on above: Reference Range: 32. 0 - 36.0 MCV (RBC) [Entitic vol] 96 fL 80 - 100 -[place] [address] Work Phone: [phone] Monocytes/100 WBC (Bld) 7.7 % 2.0 - 10.0 -[place] [address] Work Phone: [phone] Neutrophils/100 WBC (Bld) 72.6 % See Below -[place] [address] Work Phone: [phone] Comment on above: Reference Range: 40. 0 - 80.0 Platelets (Bld) [#/Vol] 367 10*3/uL 150 - 450 -[place] [address] Work Phone: [phone] RBC (Bld) [#/Vol] 4.42 {x10E12/L} below low threshold See Below -[place] [address] Work Phone: [phone] Comment on above: Reference Range: 4.5 0 - 5.90 WBC (Bld) [#/Vol] 9.8 10*3/uL 4.4 - 11.3 MG-[place]ao [place] [address] Work Phone: [phone] Complete Blood Count + Differential 0.05 {x10E9/L} See Below [facility] 410 Work Phone: Comment on above: Reference Range: 0.0 0 - 0.10 Complete Blood Count + Differential 0.17 {x10E9/L} See Below [facility] 410 Work Phone: Comment on above: Reference Range: 0.0 0 - 0.70 Complete Blood Count + Differential 0.75 {x10E9/L} See Below [facility] 410 Work Phone: Comment on above: Reference Range: 0.1 0 - 1.00 Complete Blood Count + Differential 1.64 {x10E9/L} See Below [facility] 410 Work Phone: Comment on above: Reference Range: 1.2 0 - 4.80 Complete Blood Count + Differential 7.09 {x10E9/L} See Below [facility] 410 Work Phone: Comment on above: Reference Range: 1.2 0 - 7.70 Percent differential counts (%) should be interpreted in the context of the absolute cell counts (cells/L). Complete Blood Count + Differential 1.7 % 0.0 - 6.0 [place] [address] Work Phone: Complete Blood Count + Differential 0.7 % 0.0 - 0.9 [place] [address] Work Phone: Comment on above: Immature Granulocyte Count (IG) includes promyelocytes, myelocytes and metamyelocytes but does not include bands. Percent differential counts (%) should be interpreted in the context of the absolute cell counts (cells/L). Laboratory - Coagulationon 0 - INR Coag (PPP) [Relative time] 8.2 {INR} Critically abnormal 0.9 - 1.1 [facility] 4[facility] Work Phone: Comment on above: PT, PTINR CALLED RB TO SHARIDA , 01/13/2023 15:33 PT Coag (PPP) [Time] 97.0 s Critically abnormal 9.8 - 13.4 [facility]tolaryn [facility] 4100 Work Phone: Comment on above: PT, PTINR CALLED RB TO SHARIDA , 01/13/2023 15:33 PT/INRon 01-13-2023 PT Coag (PPP) [Time] 97.0 s Critically abnormal 9.8 - 13.4 [facility] Comment on above: Order Comment: PT, P TINR CALLED RB TO SHARIDA , 01/13/2023 15:33 Result Comment: PT, PTINR CALLED RB TO SHARIDA , 01/13/2023 15:33 Performed By: #### P TINR ####[place] [address] PT, INR 8.2 Critically abnormal 0.9 - 1.1 [facility] Comment on above: Order Comment: PT, P TINR CALLED RB TO SHARIDA , 01/13/2023 15:33 Result Comment: PT, PTINR CALLED RB TO SHARIDA , 01/13/2023 15:33 Performed By: #### P TINR ####[place] [address] RENAL FUNCTION PANELon 01-13 Albumin [Mass/Vol] 3.9 g/dL Normal 3.4 - 5.0 [facility] Comment on above: Performed By: #### R ENAL ####[address] [address] Anion gap [Moles/Vol] 16 mmol/L Normal 10 - 20 [facility] Comment on above: Performed By: #### R ENAL ####[place] [id number] Calcium [Mass/Vol] 9.8 mg/dL Normal 8.6 - 10.3 [facility] Comment on above: Performed By: #### R ENAL ####[address] [address] Chloride [Moles/Vol] 100 mmol/L Normal 98 - 107 [facility] Comment on above: Performed By: #### R ENAL ####[address] [address] Creatinine [Mass/Vol] 1.50 mg/dL High 0.50 - 1.30 [facility] Comment on above: Performed By: #### R ENAL ####[address] [address] GFR/1.73 sq M.predicted among non-blacks MDRD (S/P/Bld) [Vol rate/Area] 50 mL/min/{1.73_m2} Abnormal >90 [facility] Comment on above: Result Comment: CALC ULATIONS OF ESTIMATED GFR ARE PERFORMED USING THE 2020 CKD-EPI STUDY REFIT EQUATION WITHOUT THE RACE VARIABLE FOR THE IDMS-TRACEABLE CREATININE METHODS.https://jasn.asnjournals.org/content/early//A SN.1540402169 Performed By: #### R ENAL ####[address] [address] Glucose [Mass/Vol] 183 mg/dL High 74 - 99 [facility] Comment on above: Performed By: #### R ENAL ####[address] [address] HCO3 (Bld) [Moles/Vol] 22 mmol/L Normal 21 - 32 [facility] Comment on above: Performed By: #### R ENAL ####[address] [address] Phosphate [Mass/Vol] 3.3 mg/dL Normal 2.5 - 4.9 [facility] Comment on above: Result Comment: The performance characteristics of phosphorus testing in heparinized plasma have been validated by the individual laboratory site where testing is performed. Testing on heparinized plasma is not approved by the FDA; however, such approval is not necessary. Performed By: #### R ENAL ####[address] [place] [address] Potassium [Moles/Vol] 4.2 mmol/L Normal 3.5 - 5.3 [facility] Comment on above: Performed By: #### R ENAL ####[address] [address] Sodium [Moles/Vol] 134 mmol/L Low 136 - 145 [facility] Comment on above: Performed By: #### R ENAL ####[place] [id number] Urea nitrogen [Mass/Vol] 36 mg/dL High 6 - 23 [facility] Comment on above: Performed By: #### R ENAL ####[place] [address] Renal Function Panelon 01-13 Albumin BCP dye [Mass/Vol] 3.9 g/dL 3.4 - 5.0 MG-Otolaryn [place] [address] Work Phone: [phone] Anion gap [Moles/Vol] 16 mmol/L 10 - 20 MG- Otolaryn gology-[facility] 4100 Work Phone: [phone] Calcium [Mass/Vol] 9.8 mg/dL 8.6 - 10.3 MG-Mao laryn gology-[place] 143780 Work Phone: [phone] Chloride [Moles/Vol] 100 mmol/L 98 - 107 MG-O tolaryn gology-[facility] 4100 Work Phone: [phone] CO2 [Moles/Vol] 22 mmol/L 21 - 32 MG-Otolar yn gology-[facility] 4100 Work Phone: [phone] Creatinine [Mass/Vol] 1.50 mg/dL above high threshold See Below MG-Otolaryn gology-[place] 143780 Work Phone: [phone] Comment on above: Reference Range: 0.5 0 - 1.30 Glucose [Mass/Vol] 183 mg/dL above high threshold 74 - 99 MG-Otolaryn gology-[facility] 4100 Work Phone: Phosphate [Mass/Vol] 3.3 mg/dL 2.5 - 4.9 MG-O tolaryn [facility] 4100 Work Phone: Comment on above: The performance violet acteristics of phosphorus testing in heparinized plasma have been validated by the individual laboratory site where testing is performed. Testing on heparinized plasma is not approved by the FDA; however, such approval is not necessary. Potassium [Moles/Vol] 4.2 mmol/L 3.5 - 5.3 MG- Otolaryn [facility] 4100 Work Phone: Sodium [Moles/Vol] 134 mmol/L below low threshold 136 - 145 MGOtstrasburgyn [facility]ery[facility] 4100 Work Phone: Urea nitrogen [Mass/Vol] 36 mg/dL above high threshold 6 - 23 MGOtolaryn [facility] 4100 Work Phone: Renal Function Panel 50 {mL/min/1.73m2} Abnormal >90 MGOtolaryn [facility] centeryL[facility] [place] 993280 Work Phone: Comment on above: CALCULATIONS OF REYNALDO MATED GFR ARE PERFORMED USING THE 2020 CKD-EPI STUDY REFIT EQUATION WITHOUT THE RACE VARIABLE FOR THE IDMS-TRACEABLE CREATININE METHODS.https://jasn.asnjournals.org/content/early/A SN.9461677641 C Reactive Protein, Serumon 01-06-2023 CRP [Mass/Vol] 0.63 mg/dL MG-Otolary n [facility] 4100 Work Phone: Comment on above: REF VALUE< 1.00 C-REACTIVE PROTEINon 023 C-REACTIVE PROTEIN 0.63 mg/dL Normal [facility] Comment on above: Order Comment: [facility] CARE TEAM 6 Result Comment: REF VALUE< 1.00 Performed By: #### C RP ####[address] [address] CBC AND DIFFERENTIALon 01-06 % AUTOMATED IMMATURE GRAN 1.1 % High 0.0 - 0.9 [facility] Comment on above: Order Comment: [facility] ME CARE TEAM 6 Result Comment: Sarah ture Granulocyte Count (IG) includes promyelocytes, myelocytes and metamyelocytes but does not include bands. Percent differential counts (%) should be interpreted in the context of the absolute cell counts (cells/L). Performed By: #### C BCDF ####[address] [address] Basophils (Bld) [#/Vol] 0.03 10*3/uL Normal 0.00 - 0.10 [facility] Comment on above: Order Comment: HO ME CARE TEAM 6 Performed By: #### C BCDF ####[address] [address] Basophils/100 WBC (Bld) 0.3 % Normal 0.0 - 2.0 [facility] Comment on above: Order Comment: HO ME CARE TEAM 6 Performed By: #### C BCDF ####[address] [address] Eosinophils (Bld) [#/Vol] 0.19 10*3/uL Normal 0.00 - 0.70 [facility] Comment on above: Order Comment: [facility] ME CARE TEAM 6 Performed By: #### C BCDF ####[address] [address] Eosinophils/100 WBC (Bld) 2.1 % Normal 0.0 - 6.0 [facility] Comment on above: Order Comment: HO ME CARE TEAM 6 Performed By: #### C BCDF ####[address] [address] Erythrocyte distribution width (RBC) [Ratio] 15.1 % High 11.5 - 14.5 [facility] Comment on above: Order Comment: [facility] ME CARE TEAM 6 Performed By: #### C BCDF ####[address] [address] Hematocrit (Bld) [Volume fraction] 45.8 % Normal 41.0 - 52.0 [facility] Comment on above: Order Comment: [facility] HO ME CARE TEAM 6 Performed By: #### C BCDF ####[address] [address] Hemoglobin (Bld) [Mass/Vol] 14.2 g/dL Normal 13.5 - 17.5 [facility] Comment on above: Order Comment: [facility] HO ME CARE TEAM 6 Performed By: #### C BCDF ####[address] [address] Lymphocytes (Bld) [#/Vol] 1.41 10*3/uL Normal 1.20 - 4.80 [facility] Comment on above: Order Comment: [facility] HO ME CARE TEAM 6 Performed By: #### C BCDF ####[address] [address] Lymphocytes/100 WBC (Bld) 15.7 % Normal 13.0 - 44.0 [facility] Comment on above: Order Comment: [facility] HO ME CARE TEAM 6 Performed By: #### C BCDF ####[address] [address] MCHC (RBC) [Mass/Vol] 31.0 g/dL Low 32.0 - 36.0 [facility] Comment on above: Order Comment: [facility] HO ME CARE TEAM 6 Performed By: #### C BCDF ####[address] [address] MCV (RBC) [Entitic vol] 98 fL Normal 80 - 100 [facility] Comment on above: Order Comment: [facility] HO ME CARE TEAM 6 Performed By: #### C BCDF ####[address] [address] Monocytes (Bld) [#/Vol] 0.74 10*3/uL Normal 0.10 - 1.00 [facility] Comment on above: Order Comment: [facility] HO ME CARE TEAM 6 Performed By: #### C BCDF ####[address] [address] Monocytes/100 WBC (Bld) 8.2 % Normal 2.0 - 10.0 [facility] Comment on above: Order Comment: HO ME CARE TEAM 6 Performed By: #### C BCDF ####[address] [address] Neutrophils (Bld) [#/Vol] 6.50 10*3/uL Normal 1.20 - 7.70 [facility] Comment on above: Order Comment: HO ME CARE TEAM 6 Result Comment: Perc ent differential counts (%) should be interpreted in the context of the absolute cell counts (cells/L). Performed By: #### C BCDF ####[address] [address] Neutrophils/100 WBC (Bld) 72.6 % Normal 40.0 - 80.0 [facility] Comment on above: Order Comment: HO ME CARE TEAM 6 Performed By: #### C BCDF ####[address] [address] Platelets (Bld) [#/Vol] 373 10*3/uL Normal 150 - 450 [facility] Comment on above: Order Comment: HO ME CARE TEAM 6 Performed By: #### C BCDF ####[address] [address] RBC 4.67 x10E12/L Normal 4.50 - 5.90 [facility] Comment on above: Order Comment: HO ME CARE TEAM 6 Performed By: #### C BCDF ####[address] [address] WBC (Bld) [#/Vol] 9.0 10*3/uL Normal 4.4 - 11.3 [facility] Comment on above: Order Comment: HO ME CARE TEAM 6 Performed By: #### C BCDF ####[address] [address] Complete Blood Count + Diffe yulisa 01-06-2023 Basophils/100 WBC (Bld) 0.3 % 0.0 - 2.0 -[facility] 1504 Work Phone: Erythrocyte distribution width (RBC) [Ratio] 15.1 % above high threshold See Below [facility] [place] [address] Work Phone: [phone] Comment on above: Reference Range: 11. 5 - 14.5 Hematocrit (Bld) [Volume fraction] 45.8 % See Below [place] [address] Work Phone: [phone] Comment on above: Reference Range: 41. 0 - 52.0 Hemoglobin (Bld) [Mass/Vol] 14.2 g/dL See Below [place] [address] Work Phone: [phone] Comment on above: Reference Range: 13. 5 - 17.5 Lymphocytes/100 WBC (Bld) 15.7 % See Below [place] [address] Work Phone: [phone] Comment on above: Reference Range: 13. 0 - 44.0 MCHC (RBC) [Mass/Vol] 31.0 g/dL below low threshold See Below [place] [address] Work Phone: [phone] Comment on above: Reference Range: 32. 0 - 36.0 MCV (RBC) [Entitic vol] 98 fL 80 - 100 [place] [address] Work Phone: [phone] Monocytes/100 WBC (Bld) 8.2 % 2.0 - 10.0 [place] [address] Work Phone: [phone] Neutrophils/100 WBC (Bld) 72.6 % See Below [place] [address] Work Phone: [phone] Comment on above: Reference Range: 40. 0 - 80.0 Platelets (Bld) [#/Vol] 373 10*3/uL 150 - 450 [place] [address] Work Phone: [phone] RBC (Bld) [#/Vol] 4.67 {x10E12/L} See Below [facility] IDABELOtolaryn [place] [address] Work Phone: Comment on above: Reference Range: 4.5 0 - 5.90 WBC (Bld) [#/Vol] 9.0 10*3/uL 4.4 - 11.3 -Mao larlisbet [facility] centerogyR[place] [address] Work Phone: Complete Blood Count + Differential 0.03 {x10E9/L} See Below [facility]aryn [facility] centerogyR[place] [address] Work Phone: Comment on above: Reference Range: 0.0 0 - 0.10 Complete Blood Count + Differential 0.19 {x10E9/L} See Below [facility]DO[facility]aryn [facility] centerogyR[place] [address] Work Phone: Comment on above: Reference Range: 0.0 0 - 0.70 Complete Blood Count + Differential 0.74 {x10E9/L} See Below [facility]DOtolaryn [place] [address] Work Phone: Comment on above: Reference Range: 0.1 0 - 1.00 Complete Blood Count + Differential 1.41 {x10E9/L} See Below [facility]DOtolaryn [place] [address] Work Phone: Comment on above: Reference Range: 1.2 0 - 4.80 Complete Blood Count + Differential 6.50 {x10E9/L} See Below [facility]DOtolaryn [place]ologyR[place] [address] Work Phone: Comment on above: Reference Range: 1.2 0 - 7.70 Percent differential counts (%) should be interpreted in the context of the absolute cell counts (cells/L). Complete Blood Count + Differential 2.1 % 0.0 - 6.0 [facility] EDMONDOtstrasburgyn [facility] centerogyR[place] [address] Work Phone: Complete Blood Count + Differential 1.1 % above high threshold 0.0 - 0.9 MG-Otolaryn gology-[facility] 4100 Work Phone: Comment on above: Immature Granulocyte Count (IG) includes promyelocytes, myelocytes and metamyelocytes but does not include bands. Percent differential counts (%) should be interpreted in the context of the absolute cell counts (cells/L). RENAL FUNCTION PANELon 01-06 Albumin [Mass/Vol] 4.4 g/dL Normal 3.4 - 5.0 [facility] Comment on above: Order Comment: [facility] ME CARE TEAM 6 Performed By: #### R ENAL ####[address] [address] Anion gap [Moles/Vol] 19 mmol/L Normal 10 - 20 [facility] Comment on above: Order Comment: [facility] ME CARE TEAM 6 Performed By: #### R ENAL ####[address] [address] Calcium [Mass/Vol] 10.2 mg/dL Normal 8.6 - 10.3 [facility] Comment on above: Order Comment: [facility] ME CARE TEAM 6 Performed By: #### R ENAL ####[address] [address] Chloride [Moles/Vol] 98 mmol/L Normal 98 - 107 [facility] Comment on above: Order Comment: [facility] ME CARE TEAM 6 Performed By: #### R ENAL ####[address] [address] Creatinine [Mass/Vol] 1.80 mg/dL High 0.50 - 1.30 [facility] Comment on above: Order Comment: [facility] ME CARE TEAM 6 Performed By: #### R ENAL ####[address] [address] GFR/1.73 sq M.predicted among non-blacks MDRD (S/P/Bld) [Vol rate/Area] 40 mL/min/{1.73_m2} Abnormal >90 [facility] Comment on above: Order Comment: [facility] HO ME CARE TEAM 6 Result Comment: CALC ULATIONS OF ESTIMATED GFR ARE PERFORMED USING THE 2020 CKD-EPI STUDY REFIT EQUATION WITHOUT THE RACE VARIABLE FOR THE IDMS-TRACEABLE CREATININE METHODS.https://jasn.asnjournals.org/content//A SN.6722574664 Performed By: #### R ENAL ####[address] [address] Glucose [Mass/Vol] 249 mg/dL High 74 - 99 [facility] Comment on above: Order Comment: [facility] CARE TEAM 6 Performed By: #### R ENAL ####[address] [address] HCO3 (Bld) [Moles/Vol] 24 mmol/L Normal 21 - 32 [facility] Comment on above: Order Comment: [facility] CARE TEAM 6 Performed By: #### R ENAL ####[address] [address] Phosphate [Mass/Vol] 3.6 mg/dL Normal 2.5 - 4.9 [facility] Comment on above: Order Comment: [facility] CARE TEAM 6 Result Comment: The performance characteristics of phosphorus testing in heparinized plasma have been validated by the individual laboratory site where testing is performed. Testing on heparinized plasma is not approved by the FDA; however, such approval is not necessary. Performed By: #### R ENAL ####[address] [address] Potassium [Moles/Vol] 3.8 mmol/L Normal 3.5 - 5.3 [facility] Comment on above: Order Comment: [facility] CARE TEAM 6 Performed By: #### R ENAL ####[address] [address] Sodium [Moles/Vol] 137 mmol/L Normal 136 - 145 [facility] Comment on above: Order Comment: [facility] CARE TEAM 6 Performed By: #### R ENAL ####[address] [address] Urea nitrogen [Mass/Vol] 60 mg/dL High 6 - 23 [facility] Comment on above: Order Comment: [facility] CARE TEAM 6 Performed By: #### R ENAL ####[place] [address] [place] [address] Renal Function Panelon 01-06 Albumin BCP dye [Mass/Vol] 4.4 g/dL 3.4 - 5.0 MG-Otolaryn gology-[facility] 4100 Work Phone: [phone] Anion gap [Moles/Vol] 19 mmol/L 10 - 20 MG- Otolaryn gology-[facility] 4100 Work Phone: [phone] Calcium [Mass/Vol] 10.2 mg/dL 8.6 - 10.3 MG-Mao laryn gology-[facility] 4100 Work Phone: [phone] Chloride [Moles/Vol] 98 mmol/L 98 - 107 MG-O tolaryn gology-[facility] 4100 Work Phone: [phone] CO2 [Moles/Vol] 24 mmol/L 21 - 32 MG-Otolar yn gology-[facility] 4100 Work Phone: [phone] Creatinine [Mass/Vol] 1.80 mg/dL above high threshold See Below [facility]-Otolaryn [facility] 4100 Work Phone: [phone] Comment on above: Reference Range: 0.5 0 - 1.30 Glucose [Mass/Vol] 249 mg/dL above high threshold 74 - 99 MG-Otolaryn gology-[facility] 4100 Work Phone: [phone] Phosphate [Mass/Vol] 3.6 mg/dL 2.5 - 4.9 MG-O tolaryn gology-[facility] 4100 Work Phone: [phone] Comment on above: The performance violet acteristics of phosphorus testing in heparinized plasma have been validated by the individual laboratory site where testing is performed. Testing on heparinized plasma is not approved by the FDA; however, such approval is not necessary. Potassium [Moles/Vol] 3.8 mmol/L 3.5 - 5.3 MG- Otolaryn gology-[facility] 4100 Work Phone: Sodium [Moles/Vol] 137 mmol/L 136 - 145 MG-Mao laryn [facility] 4100 Work Phone: Urea nitrogen [Mass/Vol] 60 mg/dL above high threshold 6 - 23 [facility]tolaryn [facility] 4100 Work Phone: Renal Function Panel 40 {mL/min/1.73m2} Abnormal >90 MG-Otolaryn [facility] 4100 Work Phone: Comment on above: CALCULATIONS OF REYNALDO MATED GFR ARE PERFORMED USING THE 2020 CKD-EPI STUDY REFIT EQUATION WITHOUT THE RACE VARIABLE FOR THE IDMS-TRACEABLE CREATININE METHODS.https://jasn.asnjournals.org/content/early//A SN.4171308830 Established Visit (Otolaryng ology)on 01-05-2023 Established Visit [...] Chief Complaint follow up History of Present Ryrjttu79 yo man who presents for evaluation of [...] TABS Vitals Vital Signs Recorded: 05Jan2023 09:40AM [id number] F Height6 ft 1 in [id number] lb 9.6 oz BMI Nhowfwbasq09.46 kg/m2 BSA Calculated2.38 Tobacco Useb) No PHQ-2 [...] Screening.on 023 Adult depression screening assessment No [facility]DO[facility]aryn [facility]worky[facility] 8170 Work Phone: Fall risk assessment a) No falls within the last year [facility]DOtolaryn [facility] 4100 Work Phone: Tobacco use status CPHS b) No [facility] 410 Work Phone: ID - Hospital Follow Upon [...] outside providers and finally was referred to [facility]-- in October underwent surgery and [...] SPRAYS IN EACH NOSTRIL ONCE DAILY; Therapy: [id number] to (Last Rx:25Nov2022) Requested for: 25Nov2022 Ordered Rx By: Natividad Rodriguez; Dispense: 0 Days ; #:1 X 15.8 ML Bottle; Refill: 12; For: Chronic sinusitis; KIA = N; Verified Transmission to [facility] #[id number] Clindamycin HCl - 150 MG Oral Capsule; TAKE 3 CAPSULES EVERY 6 HOURS. 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 EXPECTORATE AFTER RINSING, DO NOT SWALLOW; Therapy: 12Nov2022 to (Evaluate:[id number]); Last Rx:12Nov2022 Ordered Rx By: Leslee Hearn; [...] 0 Days (more content not included)... Normal [employer] GLUCOSE-[facility] 12-31-2022 Glucose [Mass/Vol] 143 mg/dL High 74 - 99 [facility] Comment on above: Performed By: #### G SUSAN ####[id number] [place] [address] Glucose [Mass/Vol] 180 mg/dL High 74 - 99 [facility] Comment on above: Performed By: #### G SUSAN ####[id number] [place] [address] Glucose Test strip manual (B ld) [Mass/Vol]on 12-31-2022 Glucose [Mass/Vol] 143 mg/dL High 74 - 99 mg/dL [facility] Interpretation and review of laboratory results Abnormal [facility] Glucose [Mass/Vol] 180 mg/dL High 74 - 99 mg/dL [facility] Interpretation and review of laboratory results Abnormal [facility] Laboratory - Chemistry and C hemistry - challengeon 12-31-2022 Glucose [Mass/Vol] 143 mg/dL above high threshold 74 - 99 MG-Otolaryn gology-[facility] 4100 Work Phone: Glucose [Mass/Vol] 180 mg/dL above high threshold 74 - 99 [facility] 4[facility] Work Phone: Order Reconciliationon 12-31 Order Reconciliation Normal [facility] Established Visit (Otolaryng ology)on 12-29-2022 Established [...] TABS Vitals Vital Signs Recorded: 29Dec2022 12:15PM Nzegnkptgnt88.6 F Height6 ft 1 in Weigh (more [...] 023 Adult depression screening assessment No [facility] 4[facility] Work Phone: Fall risk assessment a) No falls within the last year -[facility]aryn [facility] 4[facility] Work Phone: Tobacco use status CPHS b) No [facility] 4[facility] Work Phone: Blood Pressure Cuff Sizeon 0 12-23-2022 Adult depression screening assessment No MG-Infectio us Disease-[facility] [employer] Work Phone: Tobacco use status CPHS b) No MG-Infectio us Disease-[facility] [employer] Work Phone: Blood Pressure Cuff Size Adult MG-Infectio us Disease-[facility] [employer] Work Phone: Established Visit (Otolaryng ology)on 12-23-2022 [...] Doxycycline [place] (more content not included)... Normal [employer] BASIC METABOLIC PANELon 05-0 Anion gap [Moles/Vol] 13 mmol/L Normal 10 - 20 [facility] Comment on above: Order Comment: [facility] CARE TEAM 6 Performed By: #### B MP ####[address] [address] Calcium [Mass/Vol] 9.1 mg/dL Normal 8.6 - 10.3 [facility] Comment on above: Order Comment: [facility] CARE TEAM 6 Performed By: #### B MP ####[address] [address] Chloride [Moles/Vol] 102 mmol/L Normal 98 - 107 [facility] Comment on above: Order Comment: [facility] CARE TEAM 6 Performed By: #### B MP ####[address] [address] Creatinine [Mass/Vol] 1.67 mg/dL High 0.50 - 1.30 [facility] Comment on above: Order Comment: [facility] CARE TEAM 6 Performed By: #### B MP ####[address] [address] GFR/1.73 sq M.predicted among non-blacks MDRD (S/P/Bld) [Vol rate/Area] 44 mL/min/{1.73_m2} Abnormal >90 [facility] Comment on above: Order Comment: [facility] CARE TEAM 6 Result Comment: CALC ULATIONS OF ESTIMATED GFR ARE PERFORMED USING THE 2020 CKD-EPI STUDY REFIT EQUATION WITHOUT THE RACE VARIABLE FOR THE IDMS-TRACEABLE CREATININE METHODS.https://jasn.asnjournals.org/content/early//A SN.9981882328 Performed By: #### B MP ####[address] [address] Glucose [Mass/Vol] 117 mg/dL High 74 - 99 [facility] Comment on above: Order Comment: [facility] CARE TEAM 6 Performed By: #### B MP ####[address] [address] HCO3 (Bld) [Moles/Vol] 25 mmol/L Normal 21 - 32 [facility] Comment on above: Order Comment: [facility] ME CARE TEAM 6 Performed By: #### B MP ####[address] [address] Potassium [Moles/Vol] 4.0 mmol/L Normal 3.5 - 5.3 [facility] Comment on above: Order Comment: [facility] CARE TEAM 6 Performed By: #### B MP ####[address] [address] Sodium [Moles/Vol] 136 mmol/L Normal 136 - 145 [facility] Comment on above: Order Comment: [facility] CARE TEAM 6 Performed By: #### B MP ####[place] [id number] Urea nitrogen [Mass/Vol] 25 mg/dL High 6 - 23 [facility] Comment on above: Order Comment: [facility] CARE TEAM 6 Performed By: #### B MP ####[address] [address] C Reactive Protein, Serumon 12-22-2022 CRP [Mass/Vol] 0.87 mg/dL MG-Infecti o us Disease-[facility] [employer] Work Phone: Comment on above: REF VALUE< 1.00 C-REACTIVE PROTEINon 023 C-REACTIVE PROTEIN 0.87 mg/dL Normal [facility] Comment on above: Order Comment: HO ME CARE TEAM 6 Result Comment: REF VALUE< 1.00 Performed By: #### C RP ####[place] [id number] CBCon 12-22-2022 Erythrocyte distribution width (RBC) [Ratio] 15.8 % High 11.5 - 14.5 [facility] Comment on above: Order Comment: HO ME CARE TEAM 6 Performed By: #### C BC ####[address] [address] Hematocrit (Bld) [Volume fraction] 33.8 % Low 41.0 - 52.0 [facility] Comment on above: Order Comment: [facility] CARE TEAM 6 Performed By: #### C BC ####[address] [address] Hemoglobin (Bld) [Mass/Vol] 10.5 g/dL Low 13.5 - 17.5 [facility] Comment on above: Order Comment: [facility] HO [facility] CARE TEAM 6 Performed By: #### C BC ####[address] [address] MCHC (RBC) [Mass/Vol] 31.1 g/dL Low 32.0 - 36.0 [facility] Comment on above: Order Comment: [facility] HO ME CARE TEAM 6 Performed By: #### C BC ####[address] [address] MCV (RBC) [Entitic vol] 100 fL Normal 80 - 100 [facility] Comment on above: Order Comment: [facility] HO ME CARE TEAM 6 Performed By: #### C BC ####[address] [address] Platelets (Bld) [#/Vol] 392 10*3/uL Normal 150 - 450 [facility] Comment on above: Order Comment: [facility] HO ME CARE TEAM 6 Performed By: #### C BC ####[address] [address] RBC 3.37 x10E12/L Low 4.50 - 5.90 [facility] Comment on above: Order Comment: [facility] HO ME CARE TEAM 6 Performed By: #### C BC ####[address] [address] WBC (Bld) [#/Vol] 7.9 10*3/uL Normal 4.4 - 11.3 [facility] Comment on above: Order Comment: [facility] HO ME CARE TEAM 6 Performed By: #### C BC ####[address] [address] Laboratory - Chemistry and C hemistry - challengeon 12-22-2022 Anion gap [Moles/Vol] 13 mmol/L 10 - 20 [facility] [employer] Work Phone: Calcium [Mass/Vol] 9.1 mg/dL 8.6 - 10.3 MG-Inf ectio [facility] [employer] Work Phone: Chloride [Moles/Vol] 102 mmol/L 98 - 107 MG-I nfectio Disease-[facility] [employer] Work Phone: CO2 [Moles/Vol] 25 mmol/L 21 - 32 MG-Infect io us Disease-[facility] [employer] Work Phone: Creatinine [Mass/Vol] 1.67 mg/dL above high threshold See Below [facility] [employer] Work Phone: Comment on above: Reference Range: 0.5 0 - 1.30 Glucose [Mass/Vol] 117 mg/dL above high threshold 74 - 99 [facility] [employer] Work Phone: Potassium [Moles/Vol] 4.0 mmol/L 3.5 - 5.3 MG- Infectio [facility] [employer] Work Phone: Sodium [Moles/Vol] 136 mmol/L 136 - 145 MG-Inf ectio [facility] [employer] Work Phone: Urea nitrogen [Mass/Vol] 25 mg/dL above high threshold 6 - 23 [facility] [employer] Work Phone: Laboratory - Hematology and Cell countson 12-22-2022 Erythrocyte distribution width (RBC) [Ratio] 15.8 % above high threshold See Below [facility]io [facility] [employer] Work Phone: Comment on above: Reference Range: 11. 5 - 14.5 Hematocrit (Bld) [Volume fraction] 33.8 % below low threshold See Below MG[facility]io [facility] [employer] Work Phone: Comment on above: Reference Range: 41. 0 - 52.0 Hemoglobin (Bld) [Mass/Vol] 10.5 g/dL below low threshold See Below MG-Infectio [facility] [employer] Work Phone: Comment on above: Reference Range: 13. 5 - 17.5 MCHC (RBC) [Mass/Vol] 31.1 g/dL below low threshold See Below MG-[facility]fectio [facility] [employer] Work Phone: Comment on above: Reference Range: 32. 0 - 36.0 MCV (RBC) [Entitic vol] 100 fL 80 - 100 MG-Infectio [facility] [employer] Work Phone: Platelets (Bld) [#/Vol] 392 10*3/uL 150 - 450 MG-Infectio [facility] [employer] Work Phone: RBC (Bld) [#/Vol] 3.37 {x10E12/L} below low threshold See Below MG-Infectio [facility] [employer] Work Phone: Comment on above: Reference Range: 4.5 0 - 5.90 WBC (Bld) [#/Vol] 7.9 10*3/uL 4.4 - 11.3 MG-Inf ectio [facility] [employer] Work Phone: No Panel Informationon 12-22 44 {mL/min/1.73m2} Abnormal >90 MG-Inf ectio [facility] [employer] Phone: Comment on above: CALCULATIONS OF REYNALDO MATED GFR ARE PERFORMED USING THE 2020 CKD-EPI STUDY REFIT EQUATION WITHOUT THE RACE VARIABLE FOR THE IDMS-TRACEABLE CREATININE METHODS.https://jasn.asnjournals.org/content/early/A SN.1924531236 BASIC METABOLIC PANELon 05-0 Anion gap [Moles/Vol] 18 mmol/L Normal 10 - 20 [facility] Comment on above: Performed By: #### B MP ####[id number] [place] [address] Calcium [Mass/Vol] 9.5 mg/dL Normal 8.6 - 10.6 [facility] Comment on above: Performed By: #### B MP ####[id number] [place] [address] Chloride [Moles/Vol] 102 mmol/L Normal 98 - 107 [facility] Comment on above: Performed By: #### B MP ####[id number] [place] [address] Creatinine [Mass/Vol] 1.58 mg/dL High 0.50 - 1.30 [facility] Comment on above: Performed By: #### B MP ####[id number] [place] [address] GFR/1.73 sq M.predicted among non-blacks MDRD (S/P/Bld) [Vol rate/Area] 47 mL/min/{1.73_m2} Abnormal >90 [facility] Comment on above: Result Comment: CALC ULATIONS OF ESTIMATED GFR ARE PERFORMED USING THE 2020 CKD-EPI STUDY REFIT EQUATION WITHOUT THE RACE VARIABLE FOR THE IDMS-TRACEABLE CREATININE METHODS.https://jasn.asnjournals.org/content/early/A SN.8961799768 Performed By: #### B MP ####[id number] [place] [address] Glucose [Mass/Vol] 174 mg/dL High 74 - 99 [facility] Comment on above: Performed By: #### B MP ####[id number] [place] [address] HCO3 (Bld) [Moles/Vol] 26 mmol/L Normal 21 - 32 [facility] Comment on above: Performed By: #### B MP ####[id number] [place] [address] Potassium [Moles/Vol] 4.8 mmol/L Normal 3.5 - 5.3 [facility] Comment on above: Performed By: #### B MP ####[id number] [place] [address] Sodium [Moles/Vol] 141 mmol/L Normal 136 - 145 [facility] Comment on above: Performed By: #### B MP ####[id number] [place] [address] Urea nitrogen [Mass/Vol] 18 mg/dL Normal 6 - 23 [facility] Comment on above: Performed By: #### B MP ####[id number] [place] [address] C-REACTIVE PROTEINon 023 C-REACTIVE PROTEIN 1.82 mg/dL Abnormal [facility] Comment on above: Result Comment: REF VALUE< 1.00 Performed By: #### C RP ####[id number] [place] [address] CBC AND DIFFERENTIALon 12-19 % AUTOMATED IMMATURE GRAN 2.2 % High 0.0 - 0.9 [facility] Comment on above: Result Comment: Sarah ture Granulocyte Count (IG) includes promyelocytes, myelocytes and metamyelocytes but does not include bands. Percent differential counts (%) should be interpreted in the context of the absolute cell counts (cells/L). Performed By: #### C BCDF ####[id number] [place] [address] Basophils (Bld) [#/Vol] 0.08 10*3/uL Normal 0.00 - 0.10 [facility] Comment on above: Performed By: #### C BCDF ####[id number] [place] [address] Basophils/100 WBC (Bld) 0.8 % Normal 0.0 - 2.0 [facility] Comment on above: Performed By: #### C BCDF ####[id number] [place] [address] Eosinophils (Bld) [#/Vol] 0.29 10*3/uL Normal 0.00 - 0.70 [facility] Comment on above: Performed By: #### C BCDF ####[id number] [place] [address] Eosinophils/100 WBC (Bld) 3.0 % Normal 0.0 - 6.0 [facility] Comment on above: Performed By: #### C BCDF ####[id number] [place] [address] Erythrocyte distribution width (RBC) [Ratio] 16.0 % High 11.5 - 14.5 [facility] Comment on above: Performed By: #### C BCDF ####[id number] [place] [address] Hematocrit (Bld) [Volume fraction] 32.7 % Low 41.0 - 52.0 [facility] Comment on above: Performed By: #### C BCDF ####[id number] [place] [address] Hemoglobin (Bld) [Mass/Vol] 10.2 g/dL Low 13.5 - 17.5 [facility] Comment on above: Performed By: #### C BCDF ####[id number] [place] [address] Lymphocytes (Bld) [#/Vol] 1.79 10*3/uL Normal 1.20 - 4.80 [facility] Comment on above: Performed By: #### C BCDF ####[id number] [place] [address] Lymphocytes/100 WBC (Bld) 18.3 % Normal 13.0 - 44.0 [facility] Comment on above: Performed By: #### C BCDF ####[id number] [place] [address] MCHC (RBC) [Mass/Vol] 31.2 g/dL Low 32.0 - 36.0 [facility] Comment on above: Performed By: #### C BCDF ####[id number] [place] [address] MCV (RBC) [Entitic vol] 100 fL Normal 80 - 100 [facility] Comment on above: Performed By: #### C BCDF ####[id number] [place] [address] Monocytes (Bld) [#/Vol] 0.77 10*3/uL Normal 0.10 - 1.00 [facility] Comment on above: Performed By: #### C BCDF ####[id number] [place] [address] Monocytes/100 WBC (Bld) 7.9 % Normal 2.0 - 10.0 [facility] Comment on above: Performed By: #### C BCDF ####[id number] [place] [address] Neutrophils (Bld) [#/Vol] 6.63 10*3/uL Normal 1.20 - 7.70 [facility] Comment on above: Performed By: #### C BCDF ####[id number] [place] [address] Neutrophils/100 WBC (Bld) 67.8 % Normal 40.0 - 80.0 [facility] Comment on above: Performed By: #### C BCDF ####[id number] [place] [address] NUCLEATED RBC 0.0 /100 WBC Normal 0.0-0.0 [facility] Comment on above: Performed By: #### C BCDF ####[id number] [place] [address] Platelets (Bld) [#/Vol] 429 10*3/uL Normal 150 - 450 [facility] Comment on above: Performed By: #### C BCDF ####[id number] [place] [address] RBC 3.27 x10E12/L Low 4.50 - 5.90 [facility] Comment on above: Performed By: #### C BCDF ####[id number] [place] [address] WBC (Bld) [#/Vol] 9.8 10*3/uL Normal 4.4 - 11.3 [facility] Comment on above: Performed By: #### C BCDF ####[id number] [place] [address] PT/INRon 12-19-2022 PT Coag (PPP) [Time] 28.6 s High 9.8 - 13.4 [facility] Comment on above: Performed By: #### P TINR ####[id number] [place] [address] PT, INR 2.4 High 0.9 - 1.1 [facility] Comment on above: Performed By: #### P TINR ####[id number] [place] [address] C Reactive Protein, Serumon 12-18-2022 CRP [Mass/Vol] 1.82 mg/dL Abnormal MG-[facility]fecti o [facility] [employer] Work Phone: Comment on above: REF VALUE< 1.00 Complete Blood Count + Diffe rentialon 12-18-2022 Basophils/100 WBC (Bld) 0.8 % 0.0 - 2.0 MG-[facility]fectio [facility] [employer] Phone: Erythrocyte distribution width (RBC) [Ratio] 16.0 % above high threshold See Below MG-Infectio us [facility] [employer] Phone: Comment on above: Reference Range: 11. 5 - 14.5 Hematocrit (Bld) [Volume fraction] 32.7 % below low threshold See Below MG-Infectio us [facility] [employer] Phone: Comment on above: Reference Range: 41. 0 - 52.0 Hemoglobin (Bld) [Mass/Vol] 10.2 g/dL below low threshold See Below MG-[facility]fectio [facility] [employer] Phone: Comment on above: Reference Range: 13. 5 - 17.5 Lymphocytes/100 WBC (Bld) 18.3 % See Below MG-[facility]fectio [facility] [employer] Phone: Comment on above: Reference Range: 13. 0 - 44.0 MCHC (RBC) [Mass/Vol] 31.2 g/dL below low threshold See Below MG-Infectio us [facility] [employer] Phone: Comment on above: Reference Range: 32. 0 - 36.0 MCV (RBC) [Entitic vol] 100 fL 80 - 100 MG-[facility]fectio [facility] [employer] Work Phone: [phone] Monocytes/100 WBC (Bld) 7.9 % 2.0 - 10.0 MG-Infectio us Disease-[facility] [employer] Phone: [phone] Neutrophils/100 WBC (Bld) 67.8 % See Below MG-Infectio [facility] [employer] Work Phone: [phone] Comment on above: Reference Range: 40. 0 - 80.0 Platelets (Bld) [#/Vol] 429 10*3/uL 150 - 450 MG-[facility]fectio [facility] [employer] Phone: [phone] RBC (Bld) [#/Vol] 3.27 {x10E12/L} below low threshold See Below MG-Infectio us [facility] [employer] Phone: [phone] Comment on above: Reference Range: 4.5 0 - 5.90 WBC (Bld) [#/Vol] 9.8 10*3/uL 4.4 - 11.3 MG-Inf ectio [facility] [employer] Phone: [phone] Complete Blood Count + Differential 0.08 {x10E9/L} See Below MG-Infectio us [facility] [employer] Phone: [phone] Comment on above: Reference Range: 0.0 0 - 0.10 Complete Blood Count + Differential 0.29 {x10E9/L} See Below MG-[facility]fectio [facility] [employer] Phone: Comment on above: Reference Range: 0.0 0 - 0.70 Complete Blood Count + Differential 0.77 {x10E9/L} See Below MG-[facility]fectio [facility] [employer] Phone: Comment on above: Reference Range: 0.1 0 - 1.00 Complete Blood Count + Differential 1.79 {x10E9/L} See Below MG-Infectio us [facility] [employer] Work Phone: Comment on above: Reference Range: 1.2 0 - 4.80 Complete Blood Count + Differential 6.63 {x10E9/L} See Below MG-Infectio [facility] [employer] Work Phone: Comment on above: Reference Range: 1.2 0 - 7.70 Complete Blood Count + Differential 3.0 % 0.0 - 6.0 MG-Infectio [facility] [employer] Work Phone: Complete Blood Count + Differential 2.2 % above high threshold 0.0 - 0.9 MG-Infectio [facility] [employer] Work Phone: Comment on above: Immature Granulocyte Count (IG) includes promyelocytes, myelocytes and metamyelocytes but does not include bands. Percent differential counts (%) should be interpreted in the context of the absolute cell counts (cells/L). Complete Blood Count + Differential 0.0 {/100_WBC} 0.0-0.0 MG-Infectio [facility] [employer] Work Phone: Laboratory - Chemistry and C hemistry - challengeon 12-18-2022 Anion gap [Moles/Vol] 18 mmol/L 10 - 20 MG- Infectio [facility] [employer] Work Phone: Calcium [Mass/Vol] 9.5 mg/dL 8.6 - 10.6 MG-Inf ectio [facility] [employer] Work Phone: Chloride [Moles/Vol] 102 mmol/L 98 - 107 MG-I nfectio [facility] [employer] Work Phone: CO2 [Moles/Vol] 26 mmol/L 21 - 32 MG-Infect io [facility] [employer] Work Phone: Creatinine [Mass/Vol] 1.58 mg/dL above high threshold See Below MG-Infectio [facility] [employer] Work Phone: Comment on above: Reference Range: 0.5 0 - 1.30 Glucose [Mass/Vol] 174 mg/dL above high threshold 74 - 99 MG[facility]io [facility] [employer] Work Phone: Potassium [Moles/Vol] 4.8 mmol/L 3.5 - 5.3 MG- Infectio us Disease-[facility] [employer] Work Phone: Sodium [Moles/Vol] 141 mmol/L 136 - 145 MG-Inf ectio [facility] [employer] Work Phone: Urea nitrogen [Mass/Vol] 18 mg/dL 6 - 23 MG-Infectio [facility] [employer] Work Phone: Laboratory - Coagulationon 0 12-18-2022 INR Coag (PPP) [Relative time] 2.4 {INR} above high threshold 0.9 - 1.1 MG-Infectio us [facility] [employer] Work Phone: PT Coag (PPP) [Time] 28.6 s above high threshold 9.8 - 13.4 MG-Infectio us [facility] [employer] Work Phone: No Panel Informationon 12-18 47 {mL/min/1.73m2} Abnormal >90 MG-Inf ectio [facility] [employer] Work Phone: Comment on above: CALCULATIONS OF REYNALDO MATED GFR ARE PERFORMED USING THE 2020 CKD-EPI STUDY REFIT EQUATION WITHOUT THE RACE VARIABLE FOR THE IDMS-TRACEABLE CREATININE METHODS.https://jasn.asnjournals.org/content///A SN.5470558533 BASIC METABOLIC PANELon 05-0 Anion gap [Moles/Vol] 14 mmol/L Normal 10 - 20 [facility] Comment on above: Performed By: #### B MP ####[address] [address] Calcium [Mass/Vol] 8.9 mg/dL Normal 8.6 - 10.3 [facility] Comment on above: Performed By: #### B MP ####[address] [place] [address] Chloride [Moles/Vol] 102 mmol/L Normal 98 - 107 [facility] Comment on above: Performed By: #### B MP ####[address] [address] Creatinine [Mass/Vol] 1.38 mg/dL High 0.50 - 1.30 [facility] Comment on above: Performed By: #### B MP ####[address] [address] GFR/1.73 sq M.predicted among non-blacks MDRD (S/P/Bld) [Vol rate/Area] 55 mL/min/{1.73_m2} Abnormal >90 [facility] Comment on above: Result Comment: CALC ULATIONS OF ESTIMATED GFR ARE PERFORMED USING THE 2020 CKD-EPI STUDY REFIT EQUATION WITHOUT THE RACE VARIABLE FOR THE IDMS-TRACEABLE CREATININE METHODS.https://jasn.asnjournals.org/content//A SN.3406244887 Performed By: #### B MP ####[address] [address] Glucose [Mass/Vol] 94 mg/dL Normal 74 - 99 [facility] Comment on above: Performed By: #### B MP ####[address] [address] HCO3 (Bld) [Moles/Vol] 26 mmol/L Normal 21 - 32 [facility] Comment on above: Performed By: #### B MP ####[address] [address] Potassium [Moles/Vol] 3.8 mmol/L Normal 3.5 - 5.3 [facility] Comment on above: Performed By: #### B MP ####[address] [address] Sodium [Moles/Vol] 138 mmol/L Normal 136 - 145 [facility] Comment on above: Performed By: #### B MP ####[address] [address] Urea nitrogen [Mass/Vol] 18 mg/dL Normal 6 - 23 [facility] Comment on above: Performed By: #### B MP ####[address] [address] C Reactive Protein, Serumon 12-16-2022 CRP [Mass/Vol] 1.94 mg/dL Abnormal MG-Infecti o us Disease-[facility] [employer] Work Phone: Comment on above: REF VALUE< 1.00 C-REACTIVE PROTEINon 023 C-REACTIVE PROTEIN 1.94 mg/dL Abnormal [facility] Comment on above: Result Comment: REF VALUE< 1.00 Performed By: #### C RP ####[address] [address] CBC AND DIFFERENTIALon 12-16 % AUTOMATED IMMATURE GRAN 2.0 % High 0.0 - 0.9 [facility] Comment on above: Result Comment: Sarah ture Granulocyte Count (IG) includes promyelocytes, myelocytes and metamyelocytes but does not include bands. Percent differential counts (%) should be interpreted in the context of the absolute cell counts (cells/L). Performed By: #### C BCDF ####[address] [address] Basophils (Bld) [#/Vol] 0.05 10*3/uL Normal 0.00 - 0.10 [facility] Comment on above: Performed By: #### C BCDF ####[address] [address] Basophils/100 WBC (Bld) 0.4 % Normal 0.0 - 2.0 [facility] Comment on above: Performed By: #### C BCDF ####[address] [address] Eosinophils (Bld) [#/Vol] 0.14 10*3/uL Normal 0.00 - 0.70 [facility] Comment on above: Performed By: #### C BCDF ####[address] [address] Eosinophils/100 WBC (Bld) 1.1 % Normal 0.0 - 6.0 [facility] Comment on above: Performed By: #### C BCDF ####[address] [address] Erythrocyte distribution width (RBC) [Ratio] 16.2 % High 11.5 - 14.5 [facility] Comment on above: Performed By: #### C BCDF ####[address] [address] Hematocrit (Bld) [Volume fraction] 33.1 % Low 41.0 - 52.0 [facility] Comment on above: Performed By: #### C BCDF ####[address] [address] Hemoglobin (Bld) [Mass/Vol] 10.1 g/dL Low 13.5 - 17.5 [facility] Comment on above: Performed By: #### C BCDF ####[address] [address] Lymphocytes (Bld) [#/Vol] 1.39 10*3/uL Normal 1.20 - 4.80 [facility] Comment on above: Performed By: #### C BCDF ####[address] [address] Lymphocytes/100 WBC (Bld) 11.2 % Normal 13.0 - 44.0 [facility] Comment on above: Performed By: #### C BCDF ####[address] [address] MCHC (RBC) [Mass/Vol] 30.5 g/dL Low 32.0 - 36.0 [facility] Comment on above: Performed By: #### C BCDF ####[address] [address] MCV (RBC) [Entitic vol] 102 fL High 80 - 100 [facility] Comment on above: Performed By: #### C BCDF ####[address] [address] Monocytes (Bld) [#/Vol] 0.80 10*3/uL Normal 0.10 - 1.00 [facility] Comment on above: Performed By: #### C BCDF ####[address] [address] Monocytes/100 WBC (Bld) 6.5 % Normal 2.0 - 10.0 [facility] Comment on above: Performed By: #### C BCDF ####[address] [address] Neutrophils (Bld) [#/Vol] 9.77 10*3/uL High 1.20 - 7.70 [facility] Comment on above: Result Comment: Perc ent differential counts (%) should be interpreted in the context of the absolute cell counts (cells/L). Performed By: #### C BCDF ####[address] [address] Neutrophils/100 WBC (Bld) 78.8 % Normal 40.0 - 80.0 [facility] Comment on above: Performed By: #### C BCDF ####[address] [address] Platelets (Bld) [#/Vol] 403 10*3/uL Normal 150 - 450 [facility] Comment on above: Performed By: #### C BCDF ####[address] [address] RBC 3.26 x10E12/L Low 4.50 - 5.90 [facility] Comment on above: Performed By: #### C BCDF ####[address] [address] WBC (Bld) [#/Vol] 12.4 10*3/uL High 4.4 - 11.3 [facility] Comment on above: Performed By: #### C BCDF ####[address] [address] Complete Blood Count + Diffe rentialon 12-16-2022 Basophils/100 WBC (Bld) 0.4 % 0.0 - 2.0 MG-Infectio us Disease-[facility] [employer] Work Phone: Erythrocyte distribution width (RBC) [Ratio] 16.2 % above high threshold See Below MG-Infectio us Disease-[facility] [employer] Phone: Comment on above: Reference Range: 11. 5 - 14.5 Hematocrit (Bld) [Volume fraction] 33.1 % below low threshold See Below -Infectio us [facility] [employer] Phone: Comment on above: Reference Range: 41. 0 - 52.0 Hemoglobin (Bld) [Mass/Vol] 10.1 g/dL below low threshold See Below -Infectio us [facility] [employer] Phone: [phone] Comment on above: Reference Range: 13. 5 - 17.5 Lymphocytes/100 WBC (Bld) 11.2 % See Below -Infectio us [facility] [employer] Phone: Comment on above: Reference Range: 13. 0 - 44.0 MCHC (RBC) [Mass/Vol] 30.5 g/dL below low threshold See Below -Infectio us [facility] [employer] Phone: [phone] Comment on above: Reference Range: 32. 0 - 36.0 MCV (RBC) [Entitic vol] 102 fL above high threshold 80 - 100 -Infectio us [facility] [employer] Phone: [phone] Monocytes/100 WBC (Bld) 6.5 % 2.0 - 10.0 -Infectio [facility] [employer] Phone: [phone] Neutrophils/100 WBC (Bld) 78.8 % See Below -Infectio us [facility] [employer] Phone: [phone] Comment on above: Reference Range: 40. 0 - 80.0 Platelets (Bld) [#/Vol] 403 10*3/uL 150 - 450 -[facility]io [facility] [employer] Phone: [phone] RBC (Bld) [#/Vol] 3.26 {x10E12/L} below low threshold See Below -Infectio us [facility] [employer] Phone: Comment on above: Reference Range: 4.5 0 - 5.90 WBC (Bld) [#/Vol] 12.4 10*3/uL above high threshold 4.4 - 11.3 -Infectio [facility] [employer] Phone: Complete Blood Count + Differential 0.05 {x10E9/L} See Below [facility] [employer] Phone: Comment on above: Reference Range: 0.0 0 - 0.10 Complete Blood Count + Differential 0.14 {x10E9/L} See Below -Infectio us [facility] [employer] Phone: Comment on above: Reference Range: 0.0 0 - 0.70 Complete Blood Count + Differential 0.80 {x10E9/L} See Below [facility] [employer] Phone: Comment on above: Reference Range: 0.1 0 - 1.00 Complete Blood Count + Differential 1.39 {x10E9/L} See Below -Infectio [facility] [employer] Phone: Comment on above: Reference Range: 1.2 0 - 4.80 Complete Blood Count + Differential 9.77 {x10E9/L} above high threshold See Below -Infectio [facility] [employer] Phone: Comment on above: Reference Range: 1.2 0 - 7.70 Percent differential counts (%) should be interpreted in the context of the absolute cell counts (cells/L). Complete Blood Count + Differential 1.1 % 0.0 - 6.0 -Infectio [facility] [employer] Phone: Complete Blood Count + Differential 2.0 % above high threshold 0.0 - 0.9 -Infectio [facility] [employer] Phone: Comment on above: Immature Granulocyte Count (IG) includes promyelocytes, myelocytes and metamyelocytes but does not include bands. Percent differential counts (%) should be interpreted in the context of the absolute cell counts (cells/L). Laboratory - Chemistry and C hemistry - challengeon 12-16-2022 Anion gap [Moles/Vol] 14 mmol/L 10 - 20 MG- Infectio us [facility]PRE[facility] [employer] Work Phone: Calcium [Mass/Vol] 8.9 mg/dL 8.6 - 10.3 MG-Inf ectio DiseasePRE[facility] [employer] Work Phone: Chloride [Moles/Vol] 102 mmol/L 98 - 107 MG-I nfectio DiseasePRE[facility] [employer] Work Phone: CO2 [Moles/Vol] 26 mmol/L 21 - 32 MG-Infect io [facility]PRE[facility] [employer] Work Phone: Creatinine [Mass/Vol] 1.38 mg/dL above high threshold See Below MG-Infectio DiseasePRE[facility] [employer] Work Phone: Comment on above: Reference Range: 0.5 0 - 1.30 Glucose [Mass/Vol] 94 mg/dL 74 - 99 MG-Inf ectio [facility]PRE[facility] [employer] Work Phone: Potassium [Moles/Vol] 3.8 mmol/L 3.5 - 5.3 MG- Infectio [facility] [employer] Work Phone: Sodium [Moles/Vol] 138 mmol/L 136 - 145 MG-Inf ectio [facility]PRE[facility] [employer] Work Phone: Urea nitrogen [Mass/Vol] 18 mg/dL 6 - 23 MG-Infectio us [facility] [employer] Work Phone: No Panel Informationon 12-16 55 {mL/min/1.73m2} Abnormal >90 MG-Inf ectio DiseasePRE[facility] [employer] Work Phone: Comment on above: CALCULATIONS OF REYNALDO MATED GFR ARE PERFORMED USING THE 2020 CKD-EPI STUDY REFIT EQUATION WITHOUT THE RACE VARIABLE FOR THE IDMS-TRACEABLE CREATININE METHODS.https://jasn.asnjournals.org/content/early//A SN.3915499753 Established Visit (Otolaryng ology)on 12-15-2022 Established Visit [...] Therapy P (more content not included)... Normal [employer] Height or Weight NOT Doneon 12-15-2022 Adult depression screening assessment No [facility] 4100 Work Phone: Fall risk assessment a) No falls within the last year [facility] 4100 Work Phone: Tobacco use status CPHS b) No [facility] 4100 Work Phone: PT/INRon 12-11-2022 PROTHROMBIN TIME Canceled Normal [facility] Comment on above: Order Comment: TEST PT/INR WAS CANCELLED, 12/11/2022 02:10 Performed By: #### P TINR ####[id number] [id number] PT, INR Canceled Normal [facility] Comment on above: Order Comment: TEST PT/INR WAS CANCELLED, 12/11/2022 02:10 Performed By: #### P TINR ####[id number] [place] [address] Clinical Note - Pharmacy v2o n 12-10-2022 Clinical Note - Pharmacy v2 Normal [facility] GLUCOSE-POCTon 12-10-2022 Glucose [Mass/Vol] 123 mg/dL High 74 - 99 [facility] Comment on above: Performed By: #### G SUSAN ####[id number] [place] [address] Glucose [Mass/Vol] 225 mg/dL High 74 - 99 [facility] Comment on above: Performed By: #### G SUSAN ####[id number] [place] [address] Glucose [Mass/Vol] 170 mg/dL High 74 - 99 [facility] Comment on above: Performed By: #### G SUSAN ####[id number] [place] [address] Laboratory - Chemistry and C hemistry - challengeon 12-10-2022 Glucose [Mass/Vol] 123 mg/dL above high threshold 74 - 99 [facility] 4[facility] Work Phone: Glucose [Mass/Vol] 225 mg/dL above high threshold 74 - 99 [facility] 4100 Work Phone: Laboratory - Coagulationon 0 12-10-2022 INR Coag (PPP) [Relative time] 1.1 {INR} 0.9 - 1.1 MG-Otolaryn gology-[facility] 4100 Work Phone: PT Coag (PPP) [Time] 12.9 s 9.8 - 13.4 [facility] 4100 Work Phone: Nutrition Therapy-Noteon Nutrition Therapy-Note Normal [facility] PT/INRon 12-10-2022 PT Coag (PPP) [Time] 12.9 s Normal 9.8 - 13.4 [facility] Comment on above: Performed By: #### P TINR ####[id number] [place] [address] PT, INR 1.1 Normal 0.9 - 1.1 [facility] Comment on above: Performed By: #### P TINR ####[id number] [place] [address] CBCon 12-09-2022 Erythrocyte distribution width (RBC) [Ratio] 15.9 % High 11.5 - 14.5 [facility] Comment on above: Performed By: #### C BC ####[id number] [place] [address] Hematocrit (Bld) [Volume fraction] 27.9 % Low 41.0 - 52.0 [facility] Comment on above: Performed By: #### C BC ####[id number] [place] [address] Hemoglobin (Bld) [Mass/Vol] 8.9 g/dL Low 13.5 - 17.5 [facility] Comment on above: Performed By: #### C BC ####[id number] [place] [address] MCHC (RBC) [Mass/Vol] 31.9 g/dL Low 32.0 - 36.0 [facility] Comment on above: Performed By: #### C BC ####[id number] [place] [address] MCV (RBC) [Entitic vol] 100 fL Normal 80 - 100 [facility] Comment on above: Performed By: #### C BC ####[id number] [place] [address] NUCLEATED RBC 0.7 /100 WBC Normal 0.0-0.0 [facility] Comment on above: Performed By: #### C BC ####[id number] [place] [address] Platelets (Bld) [#/Vol] 281 10*3/uL Normal 150 - 450 [facility] Comment on above: Performed By: #### C BC ####[id number] [place] [address] RBC 2.79 x10E12/L Low 4.50 - 5.90 [facility] Comment on above: Performed By: #### C BC ####[id number] [place] [address] WBC (Bld) [#/Vol] 6.9 10*3/uL Normal 4.4 - 11.3 [facility] Comment on above: Performed By: #### C BC ####[id number] [place] [address] Clinical Event Note-ENT Flap Checkon 12-09-2022 Clinical Event Note-ENT Flap Check Normal [facility] Daily Progress Note-ENTon Daily Progress Note-ENT Normal [facility] GLUCOSE-POCTon 12-09-2022 Glucose [Mass/Vol] 151 mg/dL High 74 - 99 [facility] Comment on above: Performed By: #### G SUSAN ####[id number] [place] [address] Glucose [Mass/Vol] 131 mg/dL High 74 - 99 [facility] Comment on above: Performed By: #### G SUSAN ####[id number] [place] [address] Laboratory - Chemistry and C hemistry - challengeon 12-09-2022 Glucose [Mass/Vol] 170 mg/dL above high threshold 74 - 99 MG-Otolaryn gology-[place] [address] Work Phone: Glucose [Mass/Vol] 151 mg/dL above high threshold 74 - 99 MG-Otolaryn gology-[place] 143780 Work Phone: Glucose [Mass/Vol] 131 mg/dL above high threshold 74 - 99 MG-Otolaryn gology-[place] 143780 Work Phone: [phone] Laboratory - Coagulationon 0 12-09-2022 INR Coag (PPP) [Relative time] 1.1 {INR} 0.9 - 1.1 MG-Otolaryn gology-[place] 143780 Work Phone: [phone] PT Coag (PPP) [Time] 13.2 s 9.8 - 13.4 MG-O tolaryn gology-[place] [address] Work Phone: [phone] Laboratory - Hematology and Cell countson 12-09-2022 Erythrocyte distribution width (RBC) [Ratio] 15.9 % above high threshold See Below MG-Otolaryn gology-[facility] 4100 Work Phone: Comment on above: Reference Range: 11. 5 - 14.5 Hematocrit (Bld) [Volume fraction] 27.9 % below low threshold See Below [facility] ED[facility]DOtolaryn [facility] centerogyR[place] [address] Work Phone: [phone] Comment on above: Reference Range: 41. 0 - 52.0 Hemoglobin (Bld) [Mass/Vol] 8.9 g/dL below low threshold See Below [facility] EDMONDOtolaryn [facility] centerogyR[place] [address] Work Phone: Comment on above: Reference Range: 13. 5 - 17.5 MCHC (RBC) [Mass/Vol] 31.9 g/dL below low threshold See Below [facility] EDMONDOtolaryn [facility] centerogyR[place] [address] Work Phone: Comment on above: Reference Range: 32. 0 - 36.0 MCV (RBC) [Entitic vol] 100 fL 80 - 100 [facility] EDMONDOtolaryn [facility] centeryR[place] [address] Work Phone: [phone] Platelets (Bld) [#/Vol] 281 10*3/uL 150 - 450 [facility] EDMONDOtolaryn [facility] centerogy[facility] 410 Work Phone: [phone] RBC (Bld) [#/Vol] 2.79 {x10E12/L} below low threshold See Below [facility] EDMONDOtolaryn [facility] centeryR[place] [address] Work Phone: Comment on above: Reference Range: 4.5 0 - 5.90 WBC (Bld) [#/Vol] 6.9 10*3/uL 4.4 - 11.3 MGMao larlisbet [facility] centeryR[facility] [place] [address] Work Phone: MAGNESIUMon 12-09-2022 Magnesium [Mass/Vol] 2.33 mg/dL Normal 1.60 - 2.40 [facility] Comment on above: Performed By: #### M G ####[id number] [place] [address] Magnesium, Serumon Magnesium [Mass/Vol] 2.33 mg/dL See Below MG-O tolaryn [facility] 4100 Work Phone: Comment on above: Reference Range: 1.6 0 - 2.40 No Panel Informationon 12-09 0.7 {/100_WBC} 0.0-0.0 MG-Otolary n [facility] 4100 Work Phone: Order Reconciliationon 12-09 Order Reconciliation Normal [facility] PT/INRon 12-09-2022 PROTHROMBIN TIME Canceled Normal [facility] Comment on above: Order Comment: TEST PT/INR WAS CANCELLED, 12/09/2022 06:37 DUPLICATE ORDER. Performed By: #### P TINR ####[id number] [place] [address] PT, INR Canceled Normal [facility] Comment on above: Order Comment: TEST PT/INR WAS CANCELLED, 12/09/2022 06:37 DUPLICATE ORDER. Performed By: #### P TINR ####[id number] [place] [address] PT Coag (PPP) [Time] 13.2 s Normal 9.8 - 13.4 [facility] Comment on above: Performed By: #### P TINR ####[id number] [place] [address] PT, INR 1.1 Normal 0.9 - 1.1 [facility] Comment on above: Performed By: #### P TINR ####[id number] [place] [address] RENAL FUNCTION PANELon 12-09 Urea nitrogen [Mass/Vol] 24 mg/dL High 6 - [facility] Comment on above: Performed By: #### R ENAL ####[id number] [place] [address] Albumin [Mass/Vol] 3.1 g/dL Low 3.4 - 5.0 [facility] Comment on above: Performed By: #### R ENAL ####[id number] [place] [address] Anion gap [Moles/Vol] 12 mmol/L Normal 10 - 20 [facility] Comment on above: Performed By: #### R ENAL ####[id number] [place] [address] Calcium [Mass/Vol] 8.1 mg/dL Low 8.6 - 10.6 [facility] Comment on above: Performed By: #### R ENAL ####[id number] [place] [address] Chloride [Moles/Vol] 113 mmol/L High 98 - 107 [facility] Comment on above: Performed By: #### R ENAL ####[id number] [place] [address] Creatinine [Mass/Vol] 1.06 mg/dL Normal 0.50 - 1.30 [facility] Comment on above: Performed By: #### R ENAL ####[id number] [place] [address] GFR/1.73 sq M.predicted among non-blacks MDRD (S/P/Bld) [Vol rate/Area] 75 mL/min/{1.73_m2} Normal >90 [facility] Comment on above: Result Comment: CALC ULATIONS OF ESTIMATED GFR ARE PERFORMED USING THE 2020 CKD-EPI STUDY REFIT EQUATION WITHOUT THE RACE VARIABLE FOR THE IDMS-TRACEABLE CREATININE METHODS.https://jasn.asnjournals.org/content/early//A SN.9535619419 Performed By: #### R ENAL ####[id number] [place] [address] Glucose [Mass/Vol] 92 mg/dL Normal 74 - 99 [facility] Comment on above: Performed By: #### R ENAL ####[id number] [place] [address] HCO3 (Bld) [Moles/Vol] 24 mmol/L Normal 21 - 32 [facility] Comment on above: Performed By: #### R ENAL ####[id number] [place] [address] Phosphate [Mass/Vol] 2.6 mg/dL Normal 2.5 - 4.9 [facility] Comment on above: Result Comment: The performance characteristics of phosphorus testing in heparinized plasma have been validated by the individual laboratory site where testing is performed. Testing on heparinized plasma is not approved by the FDA; however, such approval is not necessary. Performed By: #### R ENAL ####[id number] [place] [address] Potassium [Moles/Vol] 4.1 mmol/L Normal 3.5 - 5.3 [facility] Comment on above: Performed By: #### R ENAL ####[id number] [place] [address] Sodium [Moles/Vol] 145 mmol/L Normal 136 - 145 [facility] Comment on above: Performed By: #### R ENAL ####[id number] [place] [address] Renal Function Panelon 12-09 Albumin BCP dye [Mass/Vol] 3.1 g/dL below low threshold 3.4 - 5.0 MG-Otolaryn gology-[facility] 4100 Work Phone: [phone] Anion gap [Moles/Vol] 12 mmol/L 10 - 20 MG- Otolaryn gology-[facility] 4100 Work Phone: Calcium [Mass/Vol] 8.1 mg/dL below low threshold 8.6 - 10.6 MG-Otolaryn gology-[facility] 4100 Work Phone: Chloride [Moles/Vol] 113 mmol/L above high threshold 98 - 107 MG-Otolaryn gology-[facility] 4100 Work Phone: [phone] CO2 [Moles/Vol] 24 mmol/L 21 - 32 MG-Otolar yn gology-[facility] 4100 Work Phone: Creatinine [Mass/Vol] 1.06 mg/dL See Below MG- [place] [facility] centerjaneneRachel [place] [address] Work Phone: Comment on above: Reference Range: 0.5 0 - 1.30 Glucose [Mass/Vol] 92 mg/dL 74 - 99 MG-Maoelizabeth hathaway [facility] centerjaneneR[place] [address] Work Phone: Phosphate [Mass/Vol] 2.6 mg/dL 2.5 - 4.9 MG-O nataliia [facility] 410 Work Phone: Comment on above: The performance violet acteristics of phosphorus testing in heparinized plasma have been validated by the individual laboratory site where testing is performed. Testing on heparinized plasma is not approved by the FDA; however, such approval is not necessary. Potassium [Moles/Vol] 4.1 mmol/L 3.5 - 5.3 MG- [place] [address] Work Phone: Sodium [Moles/Vol] 145 mmol/L 136 - 145 [facility] [facility] hospit[facility]is[facility] [place] [address] Work Phone: Urea nitrogen [Mass/Vol] 24 mg/dL above high threshold 6 - 23 MGYayastrasburglisbet [facility] centerjaneneR[place] [address] Work Phone: Renal Function Panel 75 {mL/min/1.73m2} >90 MG-Yayaolarlisbet [facility] centerjaneneR[place] [address] Work Phone: Comment on above: CALCULATIONS OF REYNALDO MATED GFR ARE PERFORMED USING THE 2020 CKD-EPI STUDY REFIT EQUATION WITHOUT THE RACE VARIABLE FOR THE IDMS-TRACEABLE CREATININE METHODS.https://jasn.asnjournals.org/content//A SN.6001982309 CBCon 12-08-2022 Erythrocyte distribution width (RBC) [Ratio] 15.4 % High 11.5 - 14.5 [facility] Comment on above: Performed By: #### C BC ####[id number] [place] [address] Hematocrit (Bld) [Volume fraction] 28.2 % Low 41.0 - 52.0 [facility] Comment on above: Performed By: #### C BC ####[id number] [place] [address] Hemoglobin (Bld) [Mass/Vol] 8.7 g/dL Low 13.5 - 17.5 [facility] Comment on above: Performed By: #### C BC ####[id number] [place] [address] MCHC (RBC) [Mass/Vol] 30.9 g/dL Low 32.0 - 36.0 [facility] Comment on above: Performed By: #### C BC ####[id number] [place] [address] MCV (RBC) [Entitic vol] 100 fL Normal 80 - 100 [facility] Comment on above: Performed By: #### C BC ####[id number] [place] [address] NUCLEATED RBC 0.8 /100 WBC Normal 0.0-0.0 [facility] Comment on above: Performed By: #### C BC ####[id number] [place] [address] Platelets (Bld) [#/Vol] 294 10*3/uL Normal 150 - 450 [facility] Comment on above: Performed By: #### C BC ####[id number] [place] [address] RBC 2.83 x10E12/L Low 4.50 - 5.90 [facility] Comment on above: Performed By: #### C BC ####[id number] [place] [address] WBC (Bld) [#/Vol] 6.6 10*3/uL Normal 4.4 - 11.3 [facility] Comment on above: Performed By: #### C BC ####[id number] [place] [address] Clinical Event Note-ENT Flap Checkon 12-08-2022 Clinical Event Note-ENT Flap Check Normal [facility] Clinical Event Note-ENT Flap Check Normal [facility] Daily Progress Note-ENTon Daily Progress Note-ENT Normal [facility] Discharge [id number] Discharge Profile2 Normal [facility] GLUCOSE-POCTon 12-08-2022 Glucose [Mass/Vol] 109 mg/dL High 74 - 99 [facility] Comment on above: Performed By: #### G SUSAN ####[id number] [place] [address] Glucose [Mass/Vol] 166 mg/dL High 74 - 99 [facility] Comment on above: Performed By: #### G SUSAN ####[id number] [place] [address] Glucose [Mass/Vol] 181 mg/dL High 74 - 99 [facility] Comment on above: Performed By: #### G SUSAN ####[id number] [place] [address] Glucose [Mass/Vol] 185 mg/dL High 74 - 99 [facility] Comment on above: Performed By: #### G SUSAN ####[id number] [place] [address] Laboratory - Chemistry and C hemistry - challengeon 12-08-2022 Glucose [Mass/Vol] 109 mg/dL above high threshold 74 - 99 MG-Otolaryn gology-[facility] 4100 Work Phone: Glucose [Mass/Vol] 166 mg/dL above high threshold 74 - 99 MG-Otolaryn gology-[facility] 4100 Work Phone: Glucose [Mass/Vol] 181 mg/dL above high threshold 74 - 99 MG-Otolaryn gology-[facility] 4100 Work Phone: Glucose [Mass/Vol] 185 mg/dL above high threshold 74 - 99 MG-Otolaryn gology-[facility] 4100 Work Phone: [phone] Laboratory - Hematology and Cell countson 12-08-2022 Erythrocyte distribution width (RBC) [Ratio] 15.4 % above high threshold See Below [facility] centerogyR[place] [address] Work Phone: [phone] Comment on above: Reference Range: 11. 5 - 14.5 Hematocrit (Bld) [Volume fraction] 28.2 % below low threshold See Below [facility] [place]DOtolaryn [place]ologyR[place] [address] Work Phone: [phone] Comment on above: Reference Range: 41. 0 - 52.0 Hemoglobin (Bld) [Mass/Vol] 8.7 g/dL below low threshold See Below [facility]DO[facility]aryn [facility] centerogyR[place] [address] Work Phone: [phone] Comment on above: Reference Range: 13. 5 - 17.5 MCHC (RBC) [Mass/Vol] 30.9 g/dL below low threshold See Below [facility]DOtolaryn [facility] centerogyR[place] [address] Work Phone: [phone] Comment on above: Reference Range: 32. 0 - 36.0 MCV (RBC) [Entitic vol] 100 fL 80 - 100 [facility] centeryR[facility] [place] [address] Work Phone: [phone] Platelets (Bld) [#/Vol] 294 10*3/uL 150 - 450 [facility]DO[facility]aryn [facility] centeryR[place] [address] Work Phone: [phone] RBC (Bld) [#/Vol] 2.83 {x10E12/L} below low threshold See Below [facility]DOtolaryn [facility] centerogyR[place] [address] Work Phone: [phone] Comment on above: Reference Range: 4.5 0 - 5.90 WBC (Bld) [#/Vol] 6.6 10*3/uL 4.4 - 11.3 MG-Mao larlisbet [place] [address] Work Phone: MAGNESIUMon 12-08-2022 Magnesium [Mass/Vol] 2.35 mg/dL Normal 1.60 - 2.40 [facility] Comment on above: Performed By: #### M G ####[id number] [place] [address] Magnesium, Serumon 3 Magnesium [Mass/Vol] 2.35 mg/dL See Below MG-O tolaryn [facility] 4100 Work Phone: Comment on above: Reference Range: 1.6 0 - 2.40 No Panel Informationon 12-08 0.8 {/100_WBC} 0.0-0.0 MG-Otolary n [facility] 4100 Work Phone: RENAL FUNCTION PANELon 12-08 Albumin [Mass/Vol] 3.0 g/dL Low 3.4 - 5.0 [facility] Comment on above: Performed By: #### R ENAL ####[id number] [place] [address] Anion gap [Moles/Vol] 13 mmol/L Normal 10 - 20 [facility] Comment on above: Performed By: #### R ENAL ####[id number] [place] [address] Calcium [Mass/Vol] 8.0 mg/dL Low 8.6 - 10.6 [facility] Comment on above: Performed By: #### R ENAL ####[id number] [place] [address] Chloride [Moles/Vol] 112 mmol/L High 98 - 107 [facility] Comment on above: Performed By: #### R ENAL ####[id number] [place] [address] Creatinine [Mass/Vol] 1.24 mg/dL Normal 0.50 - 1.30 [facility] Comment on above: Performed By: #### R ENAL ####[id number] [place] [address] GFR/1.73 sq M.predicted among non-blacks MDRD (S/P/Bld) [Vol rate/Area] 62 mL/min/{1.73_m2} Normal >90 [facility] Comment on above: Result Comment: CALC ULATIONS OF ESTIMATED GFR ARE PERFORMED USING THE 2020 CKD-EPI STUDY REFIT EQUATION WITHOUT THE RACE VARIABLE FOR THE IDMS-TRACEABLE CREATININE METHODS.https://jasn.asnjournals.org/content//A SN.7219943619 Performed By: #### R ENAL ####[id number] [place] [address] Glucose [Mass/Vol] 181 mg/dL High 74 - 99 [facility] Comment on above: Performed By: #### R ENAL ####[id number] [place] [address] HCO3 (Bld) [Moles/Vol] 24 mmol/L Normal 21 - 32 [facility] Comment on above: Performed By: #### R ENAL ####[id number] [place] [address] Phosphate [Mass/Vol] 2.1 mg/dL Low 2.5 - 4.9 [facility] Comment on above: Result Comment: The performance characteristics of phosphorus testing in heparinized plasma have been validated by the individual laboratory site where testing is performed. Testing on heparinized plasma is not approved by the FDA; however, such approval is not necessary. Performed By: #### R ENAL ####[id number] [place] [address] Potassium [Moles/Vol] 4.1 mmol/L Normal 3.5 - 5.3 [facility] Comment on above: Performed By: #### R ENAL ####[id number] [place] [address] Sodium [Moles/Vol] 145 mmol/L Normal 136 - 145 [facility] Comment on above: Performed By: #### R ENAL ####[id number] [place] [address] Urea nitrogen [Mass/Vol] 26 mg/dL High 6 - 23 [facility] Comment on above: Performed By: #### R ENAL ####[id number] [place] [address] Rehab Note-individual therap yon 12-08-2022 Rehab Note-individual therapy Normal [facility] Renal Function Panelon 12-08 Albumin BCP dye [Mass/Vol] 3.0 g/dL below low threshold 3.4 - 5.0 MG-Otolaryn gology-[facility] 4100 Work Phone: [phone] Anion gap [Moles/Vol] 13 mmol/L 10 - 20 MG- Otolaryn gology-[facility] 4100 Work Phone: [phone] Calcium [Mass/Vol] 8.0 mg/dL below low threshold 8.6 - 10.6 MG-Otolaryn gology-[facility] 4100 Work Phone: [phone] Chloride [Moles/Vol] 112 mmol/L above high threshold 98 - 107 MG-Otolaryn gology-[facility] 4100 Work Phone: [phone] CO2 [Moles/Vol] 24 mmol/L 21 - 32 MG-Otolar yn gology-[facility] 4100 Work Phone: [phone] Creatinine [Mass/Vol] 1.24 mg/dL See Below MG- Otolaryn gology-[facility] 4100 Work Phone: [phone] Comment on above: Reference Range: 0.5 0 - 1.30 Glucose [Mass/Vol] 181 mg/dL above high threshold 74 - 99 MG-Otolaryn gology-[facility] 4100 Work Phone: [phone] Phosphate [Mass/Vol] 2.1 mg/dL below low threshold 2.5 - 4.9 MG-Otolaryn gology-[facility] 4100 Work Phone: [phone] Comment on above: The performance violet acteristics of phosphorus testing in heparinized plasma have been validated by the individual laboratory site where testing is performed. Testing on heparinized plasma is not approved by the FDA; however, such approval is not necessary. Potassium [Moles/Vol] 4.1 mmol/L 3.5 - 5.3 [facility] 4100 Work Phone: Sodium [Moles/Vol] 145 mmol/L 136 - 145 MG-Mao laryn [facility] 4100 Work Phone: Urea nitrogen [Mass/Vol] 26 mg/dL above high threshold 6 - 23 MG[facility]aryn [facility] 4100 Work Phone: Renal Function Panel 62 {mL/min/1.73m2} >90 [facility] 4100 Work Phone: Comment on above: CALCULATIONS OF REYNALDO MATED GFR ARE PERFORMED USING THE 2020 CKD-EPI STUDY REFIT EQUATION WITHOUT THE RACE VARIABLE FOR THE IDMS-TRACEABLE CREATININE METHODS.https://jasn.asnjournals.org/content/early/A SN.7025661493 CBCon 12-07-2022 Erythrocyte distribution width (RBC) [Ratio] 15.5 % High 11.5 - 14.5 [facility] Comment on above: Performed By: #### C BC ####[id number] [place] [address] Hematocrit (Bld) [Volume fraction] 25.6 % Low 41.0 - 52.0 [facility] Comment on above: Performed By: #### C BC ####[id number] [place] [address] Hemoglobin (Bld) [Mass/Vol] 8.2 g/dL Low 13.5 - 17.5 [facility] Comment on above: Performed By: #### C BC ####[id number] [place] [address] MCHC (RBC) [Mass/Vol] 32.0 g/dL Normal 32.0 - 36.0 [facility] Comment on above: Performed By: #### C BC ####[id number] [place] [address] MCV (RBC) [Entitic vol] 100 fL Normal 80 - 100 [facility] Comment on above: Performed By: #### C BC ####[id number] [place] [address] NUCLEATED RBC 0.3 /100 WBC Normal 0.0-0.0 [facility] Comment on above: Performed By: #### C BC ####[id number] [place] [address] Platelets (Bld) [#/Vol] 250 10*3/uL Normal 150 - 450 [facility] Comment on above: Performed By: #### C BC ####[id number] [place] [address] RBC 2.56 x10E12/L Low 4.50 - 5.90 [facility] Comment on above: Performed By: #### C BC ####[id number] [place] [address] WBC (Bld) [#/Vol] 7.1 10*3/uL Normal 4.4 - 11.3 [facility] Comment on above: Performed By: #### C BC ####[id number] [place] Clinical Event Note-ENT Flap Checkon 12-07-2022 Clinical Event Note-ENT Flap Check Normal [facility] Clinical Event Note-ENT Flap Check Normal [facility] Daily Progress Note-ENTon Daily Progress Note-ENT Normal [facility] Daily Progress Note-Perioper ative Medicineon 12-07-2022 Daily Progress Note-Perioperative Medicine Normal [facility] GLUCOSE-POCTon 12-07-2022 Glucose [Mass/Vol] 201 mg/dL High 74 - 99 [facility] Comment on above: Performed By: #### G SUSAN ####[id number] [place] [address] Glucose [Mass/Vol] 243 mg/dL High 74 - 99 [facility] Comment on above: Performed By: #### G SUSAN ####[id number] [place] [address] Glucose [Mass/Vol] 141 mg/dL High 74 - 99 [facility] laryn gology-[place] [address] Work Phone: Comment on above: Performed By: #### G SUSAN ####[id number] [place] [address] Glucose [Mass/Vol] 139 mg/dL High 74 - 99 [facility] Comment on above: Performed By: #### G SUSAN ####[id number] [place] [address] Laboratory - Chemistry and C hemistry - challengeon 12-07-2022 Glucose [Mass/Vol] 201 mg/dL above high threshold 74 - 99 MG-Otolaryn gology-[place] [address] Work Phone: Glucose [Mass/Vol] 243 mg/dL above high threshold 74 - 99 MG-Otolaryn gology-[place] [address] Work Phone: Glucose [Mass/Vol] 139 mg/dL above high threshold 74 - 99 MG-Otolaryn gology-[place] 143780 Work Phone: Laboratory - Hematology and Cell countson 12-07-2022 Erythrocyte distribution width (RBC) [Ratio] 15.5 % above high threshold See Below MG-Otolaryn gology-[place] [address] Work Phone: Comment on above: Reference Range: 11. 5 - 14.5 Hematocrit (Bld) [Volume fraction] 25.6 % below low threshold See Below MG-Otolaryn gology-[facility] 4100 Work Phone: Comment on above: Reference Range: 41. 0 - 52.0 Hemoglobin (Bld) [Mass/Vol] 8.2 g/dL below low threshold See Below MG-Otolaryn gology-[facility] 410 Work Phone: Comment on above: Reference Range: 13. 5 - 17.5 MCHC (RBC) [Mass/Vol] 32.0 g/dL See Below MG- Otolaryn gology-[facility] 4100 Work Phone: Comment on above: Reference Range: 32. 0 - 36.0 MCV (RBC) [Entitic vol] 100 fL 80 - 100 MG-Otolaryn gology-[facility] 4100 Work Phone: [phone] Platelets (Bld) [#/Vol] 250 10*3/uL 150 - 450 MG-Otolaryn gology-[facility] 4100 Work Phone: [phone] RBC (Bld) [#/Vol] 2.56 {x10E12/L} below low threshold See Below MG-Otolaryn gology-[facility] 4100 Work Phone: Comment on above: Reference Range: 4.5 0 - 5.90 WBC (Bld) [#/Vol] 7.1 10*3/uL 4.4 - 11.3 [facility] [facility] 4100 Work Phone: MAGNESIUMon 12-07-2022 Magnesium [Mass/Vol] 2.28 mg/dL Normal 1.60 - 2.40 [facility] Comment on above: Performed By: #### M G ####[id number] [place] [address] Magnesium, Serumon 3 Magnesium [Mass/Vol] 2.28 mg/dL See Below [facility] 4100 Work Phone: [phone] Comment on above: Reference Range: 1.6 0 - 2.40 No Panel Informationon 12-07 0.3 {/100_WBC} 0.0-0.0 [facility] 4100 Work Phone: RENAL FUNCTION PANELon 12-07 Albumin [Mass/Vol] 3.1 g/dL Low 3.4 - 5.0 [facility] Comment on above: Performed By: #### R ENAL ####[id number] [place] [address] Anion gap [Moles/Vol] 13 mmol/L Normal 10 - 20 [facility] Comment on above: Performed By: #### R ENAL ####[id number] [place] [address] Calcium [Mass/Vol] 8.0 mg/dL Low 8.6 - 10.6 [facility] Comment on above: Performed By: #### R ENAL ####[id number] [place] [address] Chloride [Moles/Vol] 112 mmol/L High 98 - 107 [facility] Comment on above: Performed By: #### R ENAL ####[id number] [place] [address] Creatinine [Mass/Vol] 1.26 mg/dL Normal 0.50 - 1.30 [facility] Comment on above: Performed By: #### R ENAL ####[id number] [place] [address] GFR/1.73 sq M.predicted among non-blacks MDRD (S/P/Bld) [Vol rate/Area] 61 mL/min/{1.73_m2} Normal >90 [facility] Comment on above: Result Comment: CALC ULATIONS OF ESTIMATED GFR ARE PERFORMED USING THE 2020 CKD-EPI STUDY REFIT EQUATION WITHOUT THE RACE VARIABLE FOR THE IDMS-TRACEABLE CREATININE METHODS.https://jasn.asnjournals.org/content/early//A SN.2531949727 Performed By: #### R ENAL ####[id number] [place] [address] Glucose [Mass/Vol] 150 mg/dL High 74 - 99 [facility] Comment on above: Performed By: #### R ENAL ####[id number] [place] [address] HCO3 (Bld) [Moles/Vol] 24 mmol/L Normal 21 - 32 [facility] Comment on above: Performed By: #### R ENAL ####[id number] [place] [address] Phosphate [Mass/Vol] 1.7 mg/dL Low 2.5 - 4.9 [facility] Comment on above: Result Comment: The performance characteristics of phosphorus testing in heparinized plasma have been validated by the individual laboratory site where testing is performed. Testing on heparinized plasma is not approved by the FDA; however, such approval is not necessary. Performed By: #### R ENAL ####[id number] [place] [address] Potassium [Moles/Vol] 3.8 mmol/L Normal 3.5 - 5.3 [facility] Comment on above: Performed By: #### R ENAL ####[id number] [place] [address] Sodium [Moles/Vol] 145 mmol/L Normal 136 - 145 [facility] Comment on above: Performed By: #### R ENAL ####[id number] [place] [address] Urea nitrogen [Mass/Vol] 27 mg/dL High 6 - 23 [facility] Comment on above: Performed By: #### R ENAL ####[id number] [place] [address] Renal Function Panelon 12-07 Albumin BCP dye [Mass/Vol] 3.1 g/dL below low threshold 3.4 - 5.0 MG-Otolaryn gology-Ch[facility] 4100 Work Phone: [phone] Anion gap [Moles/Vol] 13 mmol/L 10 - 20 MG- Otolaryn gology-Chag [facility] 4100 Work Phone: [phone] Calcium [Mass/Vol] 8.0 mg/dL below low threshold 8.6 - 10.6 MG-Otolaryn gology-[facility] 4100 Work Phone: Chloride [Moles/Vol] 112 mmol/L above high threshold 98 - 107 [facility] 4100 Work Phone: [phone] CO2 [Moles/Vol] 24 mmol/L 21 - 32 MG-Otolar yn [facility] centerhaileyyNorth [facility] 4100 Work Phone: [phone] Creatinine [Mass/Vol] 1.26 mg/dL See Below [facility]- [facility]ogy[facility] 410 Work Phone: [phone] Comment on above: Reference Range: 0.5 0 - 1.30 Glucose [Mass/Vol] 150 mg/dL above high threshold 74 - 99 [place] [address] Work Phone: [phone] Phosphate [Mass/Vol] 1.7 mg/dL below low threshold 2.5 - 4.9 [facility]ogy[facility] 410 Work Phone: [phone] Comment on above: The performance violet acteristics of phosphorus testing in heparinized plasma have been validated by the individual laboratory site where testing is performed. Testing on heparinized plasma is not approved by the FDA; however, such approval is not necessary. Potassium [Moles/Vol] 3.8 mmol/L 3.5 - 5.3 [facility] 410 Work Phone: [phone] Sodium [Moles/Vol] 145 mmol/L 136 - 145 MG-[place] larlisbet [facility] 4100 Work Phone: [phone] Urea nitrogen [Mass/Vol] 27 mg/dL above high threshold 6 - 23 [facility]ogy[facility] 4100 Work Phone: [phone] Renal Function Panel 61 {mL/min/1.73m2} >90 MG-[place]aryn [place]ogy[place] [address] Work Phone: [phone] Comment on above: CALCULATIONS OF REYNALDO MATED GFR ARE PERFORMED USING THE 2020 CKD-EPI STUDY REFIT EQUATION WITHOUT THE RACE VARIABLE FOR THE IDMS-TRACEABLE CREATININE METHODS.https://jasn.asnjournals.org/content/early//A SN.0260682188 CBCon 12-06-2022 Erythrocyte distribution width (RBC) [Ratio] 15.8 % High 11.5 - 14.5 [facility] Comment on above: Performed By: #### C BC ####[id number] [place] [address] Hematocrit (Bld) [Volume fraction] 26.1 % Low 41.0 - 52.0 [facility] Comment on above: Performed By: #### C BC ####[id number] [place] [address] Hemoglobin (Bld) [Mass/Vol] 8.2 g/dL Low 13.5 - 17.5 [facility] Comment on above: Performed By: #### C BC ####[id number] [place] [address] MCHC (RBC) [Mass/Vol] 31.4 g/dL Low 32.0 - 36.0 [facility] Comment on above: Performed By: #### C BC ####[id number] [place] [address] MCV (RBC) [Entitic vol] 102 fL High 80 - 100 [facility] Comment on above: Performed By: #### C BC ####[id number] [place] [address] NUCLEATED RBC 0.0 /100 WBC Normal 0.0-0.0 [facility] Comment on above: Performed By: #### C BC ####[id number] [place] [address] Platelets (Bld) [#/Vol] 238 10*3/uL Normal 150 - 450 [facility] Comment on above: Performed By: #### C BC ####[id number] [place] [address] RBC 2.57 x10E12/L Low 4.50 - 5.90 [facility] Comment on above: Performed By: #### C BC ####[id number] [place] [address] WBC (Bld) [#/Vol] 9.8 10*3/uL Normal 4.4 - 11.3 [facility] Comment on above: Performed By: #### C BC ####[id number] [place] [address] Daily Progress Note-ENTon Daily Progress Note-ENT Normal [facility] Daily Progress Note-Perioper ative Medicineon 12-06-2022 Daily Progress Note-Perioperative Medicine Normal [facility] GLUCOSE-POCTon 12-06-2022 Glucose [Mass/Vol] 153 mg/dL High 74 - 99 [facility] Comment on above: Performed By: #### G SUSAN ####[id number] [place] [address] Glucose [Mass/Vol] 171 mg/dL High 74 - 99 [facility] Comment on above: Performed By: #### G SUSAN ####[id number] [place] [address] Glucose [Mass/Vol] 118 mg/dL High 74 - 99 [facility] Comment on above: Performed By: #### G SUSAN ####[id number] [place] [address] Glucose [Mass/Vol] 129 mg/dL High 74 - 99 [facility] Comment on above: Performed By: #### G SUSAN ####[id number] [place] [address] Laboratory - Chemistry and C hemistry - challengeon 12-06-2022 Glucose [Mass/Vol] 153 mg/dL above high threshold 74 - 99 MG-Otolaryn gology-[facility] 4100 Work Phone: Glucose [Mass/Vol] 171 mg/dL above high threshold 74 - 99 MG-Otolaryn gology-[facility] 4100 Work Phone: Glucose [Mass/Vol] 118 mg/dL above high threshold 74 - 99 MG-Otolaryn gology-[facility] 4100 Work Phone: Glucose [Mass/Vol] 129 mg/dL above high threshold 74 - 99 MG-Otolaryn gology-[place] [address] Work Phone: Laboratory - Hematology and Cell countson 12-06-2022 Erythrocyte distribution width (RBC) [Ratio] 15.8 % above high threshold See Below MG-Otolaryn gology-[place] [address] Work Phone: Comment on above: Reference Range: 11. 5 - 14.5 Hematocrit (Bld) [Volume fraction] 26.1 % below low threshold See Below -Otolaryn gology-[place] [address] Work Phone: Comment on above: Reference Range: 41. 0 - 52.0 Hemoglobin (Bld) [Mass/Vol] 8.2 g/dL below low threshold See Below MG-Otolaryn gology-[place] [address] Work Phone: Comment on above: Reference Range: 13. 5 - 17.5 MCHC (RBC) [Mass/Vol] 31.4 g/dL below low threshold See Below MG-[place]ology[place] [address] Work Phone: Comment on above: Reference Range: 32. 0 - 36.0 MCV (RBC) [Entitic vol] 102 fL above high threshold 80 - 100 MG-[place]aryn [place]ology[place] [address] Work Phone: Platelets (Bld) [#/Vol] 238 10*3/uL 150 - 450 MG-[place]tolaryn [place]ologyL[place] 993280 Work Phone: RBC (Bld) [#/Vol] 2.57 {x10E12/L} below low threshold See Below MG-Otolaryn gology-[facility] 410 Work Phone: Comment on above: Reference Range: 4.5 0 - 5.90 WBC (Bld) [#/Vol] 9.8 10*3/uL 4.4 - 11.3 MG-Mao laryn gology-[facility] 4100 Work Phone: MAGNESIUMon 12-06-2022 Magnesium [Mass/Vol] 2.39 mg/dL Normal 1.60 - 2.40 [facility] Comment on above: Performed By: #### M G ####[id number] [place] [address] Magnesium, Serumon 3 Magnesium [Mass/Vol] 2.39 mg/dL See Below MG-O tolaryn [facility] 4100 Work Phone: Comment on above: Reference Range: 1.6 0 - 2.40 No Panel Informationon 12-06 0.0 {/100_WBC} 0.0-0.0 MG-Otolary n [facility] 4100 Work Phone: RENAL FUNCTION PANELon 12-06 Albumin [Mass/Vol] 3.1 g/dL Low 3.4 - 5.0 [facility] Comment on above: Performed By: #### R ENAL ####[id number] [place] [address] Anion gap [Moles/Vol] 15 mmol/L Normal 10 - 20 [facility] Comment on above: Performed By: #### R ENAL ####[id number] [place] [address] Calcium [Mass/Vol] 8.0 mg/dL Low 8.6 - 10.6 [facility] Comment on above: Performed By: #### R ENAL ####[id number] [place] [address] Chloride [Moles/Vol] 112 mmol/L High 98 - 107 [facility] Comment on above: Performed By: #### R ENAL ####[id number] [place] [address] Creatinine [Mass/Vol] 1.59 mg/dL High 0.50 - 1.30 [facility] Comment on above: Performed By: #### R ENAL ####[id number] [place] [address] GFR/1.73 sq M.predicted among non-blacks MDRD (S/P/Bld) [Vol rate/Area] 46 mL/min/{1.73_m2} Abnormal >90 [facility] Comment on above: Result Comment: CALC ULATIONS OF ESTIMATED GFR ARE PERFORMED USING THE 2020 CKD-EPI STUDY REFIT EQUATION WITHOUT THE RACE VARIABLE FOR THE IDMS-TRACEABLE CREATININE METHODS.https://jasn.asnjournals.org/content/early//A SN.1887480168 Performed By: #### R ENAL ####[id number] [place] [address] Glucose [Mass/Vol] 112 mg/dL High 74 - 99 [facility] Comment on above: Performed By: #### R ENAL ####[id number] [place] [address] HCO3 (Bld) [Moles/Vol] 23 mmol/L Normal 21 - 32 [facility] Comment on above: Performed By: #### R ENAL ####[id number] [place] [address] Phosphate [Mass/Vol] 1.7 mg/dL Low 2.5 - 4.9 [facility] Comment on above: Result Comment: The performance characteristics of phosphorus testing in heparinized plasma have been validated by the individual laboratory site where testing is performed. Testing on heparinized plasma is not approved by the FDA; however, such approval is not necessary. Performed By: #### R ENAL ####[id number] [place] [address] Potassium [Moles/Vol] 3.9 mmol/L Normal 3.5 - 5.3 [facility] Comment on above: Performed By: #### R ENAL ####[id number] [place] [address] Sodium [Moles/Vol] 146 mmol/L High 136 - 145 [facility] [facility] Comment on above: Performed By: #### R ENAL ####[id number] [place] [address] Urea nitrogen [Mass/Vol] 34 mg/dL High 6 - 23 [facility] Comment on above: Performed By: #### R ENAL ####[id number] [place] [address] Renal Function Panelon 12-06 Albumin BCP dye [Mass/Vol] 3.1 g/dL below low threshold 3.4 - 5.0 MG-Otolaryn gology-[facility] 4100 Work Phone: [phone] Anion gap [Moles/Vol] 15 mmol/L 10 - 20 MG- Otolaryn gology-[facility] 4100 Work Phone: [phone] Calcium [Mass/Vol] 8.0 mg/dL below low threshold 8.6 - 10.6 MG-Otolaryn gology-[facility] 4100 Work Phone: [phone] Chloride [Moles/Vol] 112 mmol/L above high threshold 98 - 107 MG-Otolaryn gology-[facility] 4100 Work Phone: [phone] CO2 [Moles/Vol] 23 mmol/L 21 - 32 MG-Otolar yn gology-[facility] 4100 Work Phone: [phone] Creatinine [Mass/Vol] 1.59 mg/dL above high threshold See Below MG-Otolaryn gology-[facility] 4100 Work Phone: [phone] Comment on above: Reference Range: 0.5 0 - 1.30 Glucose [Mass/Vol] 112 mg/dL above high threshold 74 - 99 MG-Otolaryn gology-[facility] 4100 Work Phone: [phone] Phosphate [Mass/Vol] 1.7 mg/dL below low threshold 2.5 - 4.9 MG-Otolaryn gology-[facility] 4100 Work Phone: [phone] Comment on above: The performance violet acteristics of phosphorus testing in heparinized plasma have been validated by the individual laboratory site where testing is performed. Testing on heparinized plasma is not approved by the FDA; however, such approval is not necessary. Potassium [Moles/Vol] 3.9 mmol/L 3.5 - 5.3 [facility] 4100 Work Phone: Sodium [Moles/Vol] 146 mmol/L above high threshold 136 - 145 [facility] 4100 Work Phone: Urea nitrogen [Mass/Vol] 34 mg/dL above high threshold 6 - 23 [facility] 4100 Work Phone: Renal Function Panel 46 {mL/min/1.73m2} Abnormal >90 MGOtstrasburgyn [facility] 4100 Work Phone: Comment on above: CALCULATIONS OF REYNALDO MATED GFR ARE PERFORMED USING THE 2020 CKD-EPI STUDY REFIT EQUATION WITHOUT THE RACE VARIABLE FOR THE IDMS-TRACEABLE CREATININE METHODS.https://jasn.asnjournals.org/content/early//A SN.7293113982 CBCon 12-05-2022 Erythrocyte distribution width (RBC) [Ratio] 15.7 % High 11.5 - 14.5 [facility] 4100 Work Phone: Comment on above: Reference Range: 11. 5 - 14.5 Performed By: #### C BC ####[id number] [place] [address] Hematocrit (Bld) [Volume fraction] 26.9 % Low 41.0 - 52.0 [facility] 4100 Work Phone: Comment on above: Reference Range: 41. 0 - 52.0 Performed By: #### C BC ####[id number] [place] [address] Hemoglobin (Bld) [Mass/Vol] 8.5 g/dL Low 13.5 - 17.5 [facility] 4100 Work Phone: [phone] Comment on above: Reference Range: 13. 5 - 17.5 Performed By: #### C BC ####[id number] [place] [address] MCHC (RBC) [Mass/Vol] 31.6 g/dL Low 32.0 - 36.0 MG [facility]aryn [facility] 4100 Work Phone: [phone] Comment on above: Reference Range: 32. 0 - 36.0 Performed By: #### C BC ####[id number] [place] [address] MCV (RBC) [Entitic vol] 102 fL High 80 - 100 MG-Otolaryn [facility] 4100 Work Phone: [phone] Comment on above: Performed By: #### C BC ####[id number] [place] [address] NUCLEATED RBC 0.1 /100 WBC Normal 0.0-0.0 [facility] Comment on above: Performed By: #### C BC ####[id number] [place] [address] Platelets (Bld) [#/Vol] 246 10*3/uL Normal 150 - 450 -Otolaryn [facility] 4100 Work Phone: [phone] Comment on above: Performed By: #### C BC ####[id number] [place] [address] RBC 2.65 x10E12/L Low 4.50 - 5.90 [facility] Comment on above: Performed By: #### C BC ####[id number] [place] [address] WBC (Bld) [#/Vol] 16.5 10*3/uL High 4.4 - 11.3 MG-Ot olaryn [facility] 4100 Work Phone: [phone] Comment on above: Performed By: #### C BC ####[id number] [place] [address] Clinical Event Note-ENT Flap Checkon 12-05-2022 Clinical Event Note-ENT Flap Check Normal [facility] Daily Progress Note-ENTon Daily Progress Note-ENT Normal [facility] GLUCOSE-POCTon 12-05-2022 Glucose [Mass/Vol] 169 mg/dL High 74 - 99 [facility] Comment on above: Performed By: #### G SUSAN ####[id number] [place] [address] Glucose [Mass/Vol] 109 mg/dL High 74 - 99 [facility] Comment on above: Performed By: #### G SUSAN ####[id number] [place] [address] Glucose [Mass/Vol] 110 mg/dL High 74 - 99 [facility] Comment on above: Performed By: #### G SUSAN ####[id number] [place] [address] Glucose [Mass/Vol] 152 mg/dL High 74 - 99 [facility] Comment on above: Performed By: #### G SUSAN ####[id number] [place] [address] Glucose [Mass/Vol] 148 mg/dL High 74 - 99 [facility] Comment on above: Performed By: #### G SUSAN ####[id number] [place] [address] Laboratory - Chemistry and C hemistry - challengeon 12-05-2022 Glucose [Mass/Vol] 169 mg/dL above high threshold 74 - 99 MG-Otolaryn gology-[facility] 4100 Work Phone: [phone] Glucose [Mass/Vol] 109 mg/dL above high threshold 74 - 99 MG-Otolaryn gology-[facility] 4100 Work Phone: [phone] Glucose [Mass/Vol] 110 mg/dL above high threshold 74 - 99 MG-Otolaryn [facility] 4100 Work Phone: Glucose [Mass/Vol] 152 mg/dL above high threshold 74 - 99 [facility] 410 Work Phone: Laboratory - Hematology and Cell countson 12-05-2022 RBC (Bld) [#/Vol] 2.65 {x10E12/L} below low threshold See Below MG[facility]tolaryn [facility] 410 Work Phone: Comment on above: Reference Range: 4.5 0 - 5.90 Magnesium, Serumon 3 Magnesium [Mass/Vol] 2.53 mg/dL High 1.60 - 2.40 [facility] 410 Work Phone: Comment on above: Reference Range: 1.6 0 - 2.40 Performed By: #### M G ####[id number] [place] [address] No Panel Informationon 12-05 0.1 {/100_WBC} 0.0-0.0 MG-[place]tolary n [facility] [address] Work Phone: Nutrition Therapy-Assessment on 12-05-2022 Nutrition Therapy-Assessment Normal [facility] OT Evaluation v2-occupationa l therapyon 12-05-2022 OT Evaluation v2-occupational therapy Normal [facility] PT Evaluation v2-individual therapyon 12-05-2022 PT Evaluation v2-individual therapy Normal [facility] RENAL FUNCTION PANELon 12-05 Albumin [Mass/Vol] 3.3 g/dL Low 3.4 - 5.0 [facility] Comment on above: Performed By: #### R ENAL ####[id number] [place] [address] GFR/1.73 sq M.predicted among non-blacks MDRD (S/P/Bld) [Vol rate/Area] 37 mL/min/{1.73_m2} Abnormal >90 [facility] Comment on above: Result Comment: CALC ULATIONS OF ESTIMATED GFR ARE PERFORMED USING THE 2020 CKD-EPI STUDY REFIT EQUATION WITHOUT THE RACE VARIABLE FOR THE IDMS-TRACEABLE CREATININE METHODS.https://jasn.asnjournals.org/content/early/A SN.7750881787 Performed By: #### R ENAL ####[id number] [place] [address] HCO3 (Bld) [Moles/Vol] 24 mmol/L Normal 21 - 32 [facility] Comment on above: Performed By: #### R ENAL ####[id number] [place] [address] Renal Function Panelon 12-05 Albumin BCP dye [Mass/Vol] 3.3 g/dL below low threshold 3.4 - 5.0 MG[facility]tolaryn [facility] 4100 Work Phone: Anion gap [Moles/Vol] 14 mmol/L Normal 10 - 20 [facility] 4100 Work Phone: Comment on above: Performed By: #### R ENAL ####[id number] [place] [address] Calcium [Mass/Vol] 8.3 mg/dL Low 8.6 - 10.6 MG-[place] laryn [facility] 4100 Work Phone: Comment on above: Performed By: #### R ENAL ####[id number] [place] [address] Chloride [Moles/Vol] 110 mmol/L High 98 - 107 MG-O tolaryn [facility] 4100 Work Phone: Comment on above: Performed By: #### R ENAL ####[id number] [place] [address] CO2 [Moles/Vol] 24 mmol/L 21 - 32 MG-Otolar yn [facility] 4100 Work Phone: Creatinine [Mass/Vol] 1.94 mg/dL High 0.50 - 1.30 MG -[facility]tolaryn [facility] 4100 Work Phone: Comment on above: Reference Range: 0.5 0 - 1.30 Performed By: #### R ENAL ####[id number] [place] [address] Glucose [Mass/Vol] 111 mg/dL High 74 - 99 MG-Mao laryn [facility] 4100 Work Phone: Comment on above: Performed By: #### R ENAL ####[id number] [place] [address] Phosphate [Mass/Vol] 3.2 mg/dL Normal 2.5 - 4.9 MG-O tolaryn [facility] 4100 Work Phone: Comment on above: The [...] not necessary. Performed By: #### R ENAL ####[id number] [place] [address] Potassium [Moles/Vol] 4.1 mmol/L Normal 3.5 - 5.3 MG- [facility]aryn [facility] 4100 Work Phone: Comment on above: Performed By: #### R ENAL ####[id number] [place] [address] Sodium [Moles/Vol] 144 mmol/L Normal 136 - 145 MG-[facility] 4100 Work Phone: Comment on above: Performed By: #### R ENAL ####[id number] [place] [address] Urea nitrogen [Mass/Vol] 44 mg/dL High 6 - 23 MG-[facility] 4100 Work Phone: Comment on above: Performed By: #### R ENAL ####[id number] [place] [address] Renal Function Panel 37 {mL/min/1.73m2} Abnormal >90 [facility] 4100 Work Phone: Comment on above: CALCULATIONS OF REYNALDO MATED GFR ARE PERFORMED USING THE 2020 CKD-EPI STUDY REFIT EQUATION WITHOUT THE RACE VARIABLE FOR THE IDMS-TRACEABLE CREATININE METHODS.https://jasn.asnjournals.org/content/early//A SN.7336093440 ARTERIAL FULL PANELon 2022 Anion gap [Moles/Vol] 14 mmol/L Normal 10 - 25 [facility] Comment on above: Order Comment: PH CA LLED TO GRISEL BETH, 12/04/2022 11:06 Performed By: #### A FPA4 ####[id number] [place] [address] BASE EXCESS-BLOOD -3.8 mmol/L Low -2.0 - 3.0 [facility] Comment on above: Order Comment: PH CA LLED TO GRISEL BETH, 12/04/2022 11:06 Performed By: #### A FPA4 ####[id number] [place] [address] BICARB, CALCULATED 24.8 mmol/L Normal 22.0 - 26.0 [facility] Comment on above: Order Comment: PH CA LLED TO GRISEL BETH, 12/04/2022 11:06 Performed By: #### A FPA4 ####[id number] [place] [address] CALCIUM,IONIZED 1.14 mmol/L Normal 1.10 - 1.33 [facility] Comment on above: Order Comment: PH CA LLED TO GRISEL BETH, 12/04/2022 11:06 Performed By: #### A FPA4 ####[id number] [place] [address] Chloride [Moles/Vol] 106 mmol/L Normal 98 - 107 [facility] Comment on above: Order Comment: PH CA LLED TO GRISEL BETH, 12/04/2022 11:06 Performed By: #### A FPA4 ####[id number] [place] [address] Glucose [Mass/Vol] 302 mg/dL High 74 - 99 [facility] Comment on above: Order Comment: PH CA LLED TO GRISEL BETH, 12/04/2022 11:06 Performed By: #### A FPA4 ####[id number] [place] [address] Hematocrit (Bld) [Volume fraction] 33.0 % Low 41.0 - 52.0 [facility] Comment on above: Order Comment: PH CA LLED TO GRISEL BETH, 12/04/2022 11:06 Performed By: #### A FPA4 ####[id number] [place] [address] Hemoglobin (Bld) [Mass/Vol] 11.1 g/dL Low 13.5 - 17.5 [facility] Comment on above: Order Comment: PH CA LLED TO GRISEL BETH, 12/04/2022 11:06 Performed By: #### A FPA4 ####[id number] [place] [address] Lactate [Moles/Vol] 1.7 mmol/L Normal 0.4 - 2.0 [facility] Comment on above: Order Comment: PH CA LLED TO GRISEL BETH, 12/04/2022 11:06 Performed By: #### A FPA4 ####[id number] [place] [address] OXY HGB 93.9 % Low 94.0 - 98.0 [facility] Comment on above: Order Comment: PH CA LLED TO GRISEL BETH, 12/04/2022 11:06 Performed By: #### A FPA4 ####[id number] [place] [address] Oxygen (Bld) [Partial pressure] 85 mm[Hg] Normal 85 - 95 [facility] Comment on above: Order Comment: PH CA LLED TO GRISEL PASTOROX, 12/04/2022 11:06 Performed By: #### A FPA4 ####[id number] [place] [address] PATIENT TEMPERATURE 37.0 degrees C Normal U [facility] [place] Comment on above: Order Comment: PH CA LLED TO GRISEL BETH, 12/04/2022 11:06 Result Comment: NOTE : PATIENT RESULTS ARE NOT CORRECTED FOR TEMPERATURE. Performed By: #### A FPA4 ####[id number] [place] [address] PCO2 62 mmHg High 38 - 42 [facility] Comment on above: Order Comment: PH CA LLED TO GRISEL BETH, 12/04/2022 11:06 Performed By: #### A FPA4 ####[id number] [place] [address] pH (Bld) 7.21 [pH] Critically low 7.38 - 7.42 [facility] Comment on above: Order Comment: PH CA LLED TO GRISEL PASTOROX, 12/04/2022 11:06 Result Comment: PH C ALLED TO GRISEL BETH, 12/04/2022 11:06 Performed By: #### A FPA4 ####[id number] [place] [address] Potassium [Moles/Vol] 5.5 mmol/L High 3.5 - 5.3 [facility] Comment on above: Order Comment: PH CA LLED TO GRISEL BETH, 12/04/2022 11:06 Performed By: #### A FPA4 ####[id number] [place] [address] SO2 97 % Normal 94 - 100 [facility] Comment on above: Order Comment: PH CA LLED TO GRISEL BETH, 12/04/2022 11:06 Performed By: #### A FPA4 ####[id number] [place] [address] Sodium [Moles/Vol] 139 mmol/L Normal 136 - 145 [facility] Comment on above: Order Comment: PH CA LLED TO GRISEL BETH, 12/04/2022 11:06 Performed By: #### A FPA4 ####[id number] [place] [address] Admission Risk Screen - Adul ton 12-04-2022 Admission Risk Screen - Adult Normal [facility] BASIC METABOLIC PANELon 11-16 Anion gap [Moles/Vol] 17 mmol/L Normal 10 - 20 [facility] Comment on above: Performed By: #### B MP ####[id number] [place] [address] Calcium [Mass/Vol] 8.5 mg/dL Low 8.6 - 10.6 [facility] Comment on above: Performed By: #### B MP ####[id number] [place] [address] Chloride [Moles/Vol] 106 mmol/L Normal 98 - 107 [facility] Comment on above: Performed By: #### B MP ####[id number] [place] [address] Creatinine [Mass/Vol] 2.25 mg/dL High 0.50 - 1.30 [facility] Comment on above: Performed By: #### B MP ####[id number] [place] [address] GFR/1.73 sq M.predicted among non-blacks MDRD (S/P/Bld) [Vol rate/Area] 31 mL/min/{1.73_m2} Abnormal >90 [facility] Comment on above: Result Comment: CALC ULATIONS OF ESTIMATED GFR ARE PERFORMED USING THE 2020 CKD-EPI STUDY REFIT EQUATION WITHOUT THE RACE VARIABLE FOR THE IDMS-TRACEABLE CREATININE METHODS.https://jasn.asnjournals.org/content//A SN.3710487230 Performed By: #### B MP ####[id number] [place] [address] Glucose [Mass/Vol] 238 mg/dL High 74 - 99 [facility] Comment on above: Performed By: #### B MP ####[id number] [place] [address] HCO3 (Bld) [Moles/Vol] 25 mmol/L Normal 21 - 32 [facility] Comment on above: Performed By: #### B MP ####[id number] [place] [address] Potassium [Moles/Vol] 4.9 mmol/L Normal 3.5 - 5.3 [facility] Comment on above: Performed By: #### B MP ####[id number] [place] [address] Sodium [Moles/Vol] 143 mmol/L Normal 136 - 145 [facility] Comment on above: Performed By: #### B MP ####[id number] [place] [address] Urea nitrogen [Mass/Vol] 46 mg/dL High 6 - 23 [facility] Comment on above: Performed By: #### B MP ####[id number] [place] [address] CBCon 12-04-2022 HCT Canceled Normal [facility] Comment on above: Order Comment: TEST CBC WAS CANCELLED, 12/04/2022 21:07 not collected. Performed By: #### C BC ####[id number] [place] [address] HGB Canceled Normal [facility] Comment on above: Order Comment: TEST CBC WAS CANCELLED, 12/04/2022 21:07 not collected. Performed By: #### C BC ####[id number] [place] [address] MCHC Canceled Normal [facility] Comment on above: Order Comment: TEST CBC WAS CANCELLED, 12/04/2022 21:07 not collected. Performed By: #### C BC ####[id number] [place] [address] MCV Canceled Normal [facility] Comment on above: Order Comment: TEST CBC WAS CANCELLED, 12/04/2022 21:07 not collected. Performed By: #### C BC ####[id number] [place] [address] NUCLEATED RBC Canceled Normal [facility] Comment on above: Order Comment: TEST CBC WAS CANCELLED, 12/04/2022 21:07 not collected. Performed By: #### C BC ####[id number] [place] [address] PLT Canceled Normal [facility] Comment on above: Order Comment: TEST CBC WAS CANCELLED, 12/04/2022 21:07 not collected. Performed By: #### C BC ####[id number] [place] [address] RBC Canceled Normal [facility] Comment on above: Order Comment: TEST CBC WAS CANCELLED, 12/04/2022 21:07 not collected. Performed By: #### C BC ####[id number] [place] [address] RDW-CV Canceled Normal [facility] Comment on above: Order Comment: TEST CBC WAS CANCELLED, 12/04/2022 21:07 not collected. Performed By: #### C BC ####[id number] [place] [address] WBC Canceled Normal [facility] Comment on above: Order Comment: TEST CBC WAS CANCELLED, 12/04/2022 21:07 not collected. Performed By: #### C BC ####[id number] [place] [address] Erythrocyte distribution width (RBC) [Ratio] 15.4 % High 11.5 - 14.5 [facility] Comment on above: Performed By: #### C BC ####[id number] [place] [address] Hematocrit (Bld) [Volume fraction] 33.2 % Low 41.0 - 52.0 [facility] Comment on above: Performed By: #### C BC ####[id number] [place] [address] Hemoglobin (Bld) [Mass/Vol] 10.6 g/dL Low 13.5 - 17.5 [facility] Comment on above: Performed By: #### C BC ####[id number] [place] [address] MCHC (RBC) [Mass/Vol] 31.9 g/dL Low 32.0 - 36.0 [facility] Comment on above: Performed By: #### C BC ####[id number] [place] [address] MCV (RBC) [Entitic vol] 100 fL Normal 80 - 100 [facility] Comment on above: Performed By: #### C BC ####[id number] [place] [address] NUCLEATED RBC 0.0 /100 WBC Normal 0.0-0.0 [facility] Comment on above: Performed By: #### C BC ####[id number] [place] [address] Platelets (Bld) [#/Vol] 349 10*3/uL Normal 150 - 450 [facility] Comment on above: Performed By: #### C BC ####[id number] [place] [address] RBC 3.32 x10E12/L Low 4.50 - 5.90 [facility] Comment on above: Performed By: #### C BC ####[id number] [place] [address] WBC (Bld) [#/Vol] 20.1 10*3/uL High 4.4 - 11.3 [facility] Comment on above: Performed By: #### C BC ####[id number] [place] [address] Clinical Event Note-ENT Flap Checkon 12-04-2022 Clinical Event Note-ENT Flap Check Normal [facility] Clinical Event Note-ENT Flap Check Normal [facility] Clinical Event Note-ENT Flap Check Normal [facility] Clinical Event Note-ENT Flap Check Normal [facility] Clinical Event Note-ENT Flap Check Normal [facility] Consult-Perioperative Medici neon 12-04-2022 Consult-Perioperative Medicine Normal [facility] Daily Progress Note-ENTon Daily Progress Note-ENT Normal [facility] Discharge Planning [id number] 12-04-2022 Discharge Planning Note2 Normal [facility] ELECTROLYTE, URINE SPOTon OSMOLALITY,URINE SPOT 567 mOsm/kg Normal 200 - 1200 [facility] Comment on above: Performed By: #### E LCS2 ####[id number] [place] [address] CHLORIDE,URINE SPOT 16 mmol/L Normal Not Established [facility] Comment on above: Performed By: #### E LCS2 ####[id number] [place] [address] CHLORIDE/CREAT RATIO 13 mmol/g Creat Low 23 - 275 [facility] Comment on above: Performed By: #### E LCS2 ####[id number] [place] [address] CREATININE,URINE 119.0 mg/dL Normal 20.0 - 370.0 [facility] Comment on above: Performed By: #### E LCS2 ####[id number] [place] [address] POT/CREAT RATIO 66 mmol/g Creat Normal Not Established [facility] Comment on above: Performed By: #### E LCS2 ####[id number] [place] [address] POTASSIUM,URINE SPOT 79 mmol/L Normal Not Established [facility] Comment on above: Performed By: #### E LCS2 ####[id number] [place] [address] Sodium (U) [Moles/Vol] 16 mmol/L Normal Not Established [facility] Comment on above: Performed By: #### E LCS2 ####[id number] [place] [address] SODIUM/CREAT RATIO 13 mmol/g Creat Normal Not Established [facility] Comment on above: Performed By: #### E LCS2 ####[id number] [place] [address] UREA NITROGEN,URINE 383 mg/dL Normal Not Established [facility] Comment on above: Performed By: #### E LCS2 ####[id number] [place] [address] UREA NITROGEN/CREAT RATIO 3.2 g/g Creat Normal Not Established [facility] Comment on above: Performed By: #### E LCS2 ####[id number] [place] [address] GLUCOSE-POCTon 12-04-2022 Glucose [Mass/Vol] 228 mg/dL High 74 - 99 [facility] Comment on above: Performed By: #### G SUSAN ####[id number] [place] [address] Glucose [Mass/Vol] 261 mg/dL High 74 - 99 [facility] Comment on above: Performed By: #### G SUSAN ####[id number] [place] [address] Glucose [Mass/Vol] 256 mg/dL High 74 - 99 [facility] Comment on above: Performed By: #### G SUSAN ####[id number] [place] [address] Glucose [Mass/Vol] 232 mg/dL High 74 - 99 [facility] Comment on above: Performed By: #### G SUSAN ####[id number] [place] [address] Glucose [Mass/Vol] 194 mg/dL High 74 - 99 [facility] Comment on above: Performed By: #### G SUSAN ####[id number] [place] [address] Laboratory - Chemistry and C hemistry - challengeon 12-04-2022 Glucose [Mass/Vol] 148 mg/dL above high threshold 74 - 99 MG-Otolaryn gology-[facility] 4100 Work Phone: [phone] Glucose [Mass/Vol] 228 mg/dL above high threshold 74 - 99 MG-Otolaryn gology-[facility] 4100 Work Phone: Base excess Calc (BldV) [Moles/Vol] -3.1000 mmol/L below low threshold -2.0 - 3.0 MG-Otolaryn gology-[place] [address]3780 Work Phone: [phone] CO2 (BldV) [Partial pressure] 50 mm[Hg] 41 - 51 [facility] [address] Work Phone: [phone] HCO3 (Bld) [Moles/Vol] 24.0 mmol/L See Below M [facility] [address] Work Phone: [phone] Comment on above: Reference Range: 22. 0 - 26.0 Oxygen (BldV) [Partial pressure] 42 mm[Hg] 35 - 45 [facility] [address] Work Phone: [phone] Oxyhemoglobin (BldV) [Mass fraction] 65.8 % See Below [facility] [address] Work Phone: [phone] Comment on above: Reference Range: 45. 0 - 75.0 pH (BldV) 7.29 [pH] below low threshold See Below [facility] [address] Work Phone: [phone] Comment on above: Reference Range: 7.3 3 - 7.43 Glucose [Mass/Vol] 261 mg/dL above high threshold 74 - 99 [facility] [address] Work Phone: [phone] Anion gap [Moles/Vol] 17 mmol/L 10 - 20 [facility]- [facility] [address] Work Phone: Calcium [Mass/Vol] 8.5 mg/dL below low threshold 8.6 - 10.6 [facility] [address] Work Phone: Chloride [Moles/Vol] 106 mmol/L 98 - 107 [facility] [address] Work Phone: [phone] CO2 [Moles/Vol] 25 mmol/L 21 - 32 [facility] [address] Work Phone: [phone] Creatinine (U) [Mass/Vol] 119.0 mg/dL See Below [facility] [address] Work Phone: [phone] Comment on above: Reference Range: 20. 0 - 370.0 Creatinine [Mass/Vol] 2.25 mg/dL above high threshold See Below -[place] [address] Work Phone: [phone] Comment on above: Reference Range: 0.5 0 - 1.30 Glucose [Mass/Vol] 238 mg/dL above high threshold 74 - 99 [facility] [address] Work Phone: [phone] Osmolality (U) [Osmolality] 567 mosm/kg 200 - 1200 [facility] [address] Work Phone: [phone] Potassium (U) [Moles/Vol] 79 mmol/L See Below -[place] [address] Work Phone: [phone] Comment on above: Reference Range: Not Established Potassium [Moles/Vol] 4.9 mmol/L 3.5 - 5.3 [facility] [address] Work Phone: [phone] Potassium/Creatinine (U) [Molar ratio] 66 {mmol/g_Creat} See Below [facility] [place] [address] Work Phone: [phone] Comment on above: Reference Range: Not Established Sodium (U) [Moles/Vol] 16 mmol/L See Below -[place] [address] Work Phone: [phone] Comment on above: Reference Range: Not Established Sodium [Moles/Vol] 143 mmol/L 136 - 145 [facility] [place] [address] Work Phone: Sodium/Creatinine (U) [Ratio] 13 {mmol/g_Creat} See Below -[facility] [place] [address] Work Phone: [phone] Comment on above: Reference Range: Not Established Urea nitrogen (U) [Mass/Vol] 383 mg/dL See Below -[facility] [place] [address] Work Phone: [phone] Comment on above: Reference Range: Not Established Urea nitrogen [Mass/Vol] 46 mg/dL above high threshold 6 - 23 [facility] [place] [address] Work Phone: [phone] Urea/Creatinine (U) [Molar ratio] 3.2 {g/g_Creat} See Below -[facility] [address] Work Phone: [phone] Comment on above: Reference Range: Not Established Anion gap 4 (BldA) [Moles/Vol] 14 mmol/L 10 - 25 MG[facility]Otolarlisbet [facility] [place] [address] Work Phone: [phone] Base excess Calc (Bld) [Moles/Vol] -3.8000 mmol/L below low threshold -2.0 - 3.0 [facility] [place] [address] Work Phone: [phone] Calcium.ionized (BldA) [Moles/Vol] 1.14 mmol/L See Below [facility] [place] [address] Work Phone: Comment on above: Reference Range: 1.1 0 - 1.33 Chloride (BldA) [Moles/Vol] 106 mmol/L 98 - 107 [facility] [place] [address] Work Phone: [phone] CO2 (Bld) [Partial pressure] 62 mm[Hg] above high threshold 38 - 42 [facility] [address] Work Phone: [phone] Glucose [Mass/Vol] 302 mg/dL above high threshold 74 - 99 [facility] [address] Work Phone: [phone] HCO3 (Bld) [Moles/Vol] 24.8 mmol/L See Below M [facility] [address] Work Phone: [phone] Comment on above: Reference Range: 22. 0 - 26.0 Lactate (BldA) [Moles/Vol] 1.7 mmol/L 0.4 - 2.0 [facility] [address] Work Phone: [phone] Oxygen (Bld) [Partial pressure] 85 mm[Hg] 85 - 95 [facility] [address] Work Phone: [phone] Oxyhemoglobin (BldA) [Mass fraction] 93.9 % below low threshold See Below [facility] [address] Work Phone: [phone] Comment on above: Reference Range: 94. 0 - 98.0 pH (Bld) 7.21 [pH] Critically low See Below [facility]ary n [facility] [address] Work Phone: [phone] Comment on above: Reference Range: 7.3 8 - 7.42PH CALLED TO GRISEL BETH, 12/04/2022 11:06 Potassium (BldA) [Moles/Vol] 5.5 mmol/L above high threshold 3.5 - 5.3 [facility] [address] Work Phone: [phone] Sodium (BldA) [Moles/Vol] 139 mmol/L 136 - 145 [facility] [address] Work Phone: [phone] Glucose [Mass/Vol] 256 mg/dL above high threshold 74 - 99 [facility] [address] Work Phone: Glucose [Mass/Vol] 232 mg/dL above high threshold 74 - 99 [facility] [address] Work Phone: Glucose [Mass/Vol] 194 mg/dL above high threshold 74 - 99 [facility] [address] Work Phone: Laboratory - Hematology and Cell countson 12-04-2022 Hematocrit Est (Bld) [Volume fraction] 33.0 % below low threshold See Below [facility] [address] Work Phone: Comment on above: Reference Range: 41. 0 - 52.0 Hemoglobin (Bld) [Mass/Vol] 11.1 g/dL below low threshold See Below [facility] [address] Work Phone: [phone] Comment on above: Reference Range: 13. 5 - 17.5 Erythrocyte distribution width (RBC) [Ratio] 15.4 % above high threshold See Below [facility] [address] Work Phone: Comment on above: Reference Range: 11. 5 - 14.5 Hematocrit (Bld) [Volume fraction] 33.2 % below low threshold See Below [facility] [address] Work Phone: Comment on above: Reference Range: 41. 0 - 52.0 Hemoglobin (Bld) [Mass/Vol] 10.6 g/dL below low threshold See Below [facility] [address] Work Phone: Comment on above: Reference Range: 13. 5 - 17.5 MCHC (RBC) [Mass/Vol] 31.9 g/dL below low threshold See Below [facility] [address] Work Phone: Comment on above: Reference Range: 32. 0 - 36.0 MCV (RBC) [Entitic vol] 100 fL 80 - 100 [facility] Work Phone: Platelets (Bld) [#/Vol] 349 10*3/uL 150 - 450 [facility]tolaryn [facility] 4100 Work Phone: [phone] RBC (Bld) [#/Vol] 3.32 {x10E12/L} below low threshold See Below [facility]tolaryn [facility] 4100 Work Phone: Comment on above: Reference Range: 4.5 0 - 5.90 WBC (Bld) [#/Vol] 20.1 10*3/uL above high threshold 4.4 - 11.3 [facility] Work Phone: MAGNESIUMon 12-04-2022 Magnesium [Mass/Vol] 2.47 mg/dL High 1.60 - 2.40 [facility] Comment on above: Performed By: #### M G ####[id number] [place] [address] Magnesium, Serumon 3 Magnesium [Mass/Vol] 2.47 mg/dL above high threshold See Below [facility] Work Phone: Comment on above: Reference Range: 1.6 0 - 2.40 No Panel Informationon 12-04 31 {mL/min/1.73m2} Abnormal >90 [facility] Work Phone: Comment on above: CALCULATIONS OF REYNALDO MATED GFR ARE PERFORMED USING THE 2020 CKD-EPI STUDY REFIT EQUATION WITHOUT THE RACE VARIABLE FOR THE IDMS-TRACEABLE CREATININE METHODS.https://jasn.asnjournals.org/content//A SN.1002045975 13 {mmol/g_Creat} below low threshold 23 - 275 [facility] 4100 Work Phone: 16 mmol/L See Below MG-Otolaryn madiogy-[facility] 4100 Work Phone: Comment on above: Reference Range: Not Established 0.0 {/100_WBC} 0.0-0.0 MG-Otolary n [facility]ology-[facility] 4100 Work Phone: OT Evaluation v2-occupationa l therapy - Upon arrival in roomon 12-04-2022 OT Evaluation v2-occupational therapy - Upon arrival in room Normal [facility] Patient Profile - Adult v2on 12-04-2022 Patient Profile - Adult v2 Normal [facility] RENAL FUNCTION PANELon 12-04 Albumin [Mass/Vol] 4.1 g/dL Normal 3.4 - 5.0 [facility] Comment on above: Performed By: #### R ENAL ####[id number] [place] [address] Anion gap [Moles/Vol] 17 mmol/L Normal 10 - 20 [facility] Comment on above: Performed By: #### R ENAL ####[id number] [place] [address] Calcium [Mass/Vol] 8.9 mg/dL Normal 8.6 - 10.6 [facility] Comment on above: Performed By: #### R ENAL ####[id number] [place] [address] Chloride [Moles/Vol] 107 mmol/L Normal 98 - 107 [facility] Comment on above: Performed By: #### R ENAL ####[id number] [place] [address] Creatinine [Mass/Vol] 2.01 mg/dL High 0.50 - 1.30 [facility] Comment on above: Performed By: #### R ENAL ####[id number] [place] [address] GFR/1.73 sq M.predicted among non-blacks MDRD (S/P/Bld) [Vol rate/Area] 35 mL/min/{1.73_m2} Abnormal >90 [facility] Comment on above: Result Comment: CALC ULATIONS OF ESTIMATED GFR ARE PERFORMED USING THE 2020 CKD-EPI STUDY REFIT EQUATION WITHOUT THE RACE VARIABLE FOR THE IDMS-TRACEABLE CREATININE METHODS.https://jasn.asnjournals.org/content//A SN.6742301136 Performed By: #### R ENAL ####[id number] [place] [address] Glucose [Mass/Vol] 227 mg/dL High 74 - 99 [facility] Comment on above: Performed By: #### R ENAL ####[id number] [place] [address] HCO3 (Bld) [Moles/Vol] 24 mmol/L Normal 21 - 32 [facility] Comment on above: Performed By: #### R ENAL ####[id number] [place] [address] Phosphate [Mass/Vol] 6.1 mg/dL High 2.5 - 4.9 [facility] Comment on above: Result Comment: The performance characteristics of phosphorus testing in heparinized plasma have been validated by the individual laboratory site where testing is performed. Testing on heparinized plasma is not approved by the FDA; however, such approval is not necessary. Performed By: #### R ENAL ####[id number] [place] [address] Potassium [Moles/Vol] 5.0 mmol/L Normal 3.5 - 5.3 [facility] Comment on above: Performed By: #### R ENAL ####[id number] [place] [address] Sodium [Moles/Vol] 143 mmol/L Normal 136 - 145 [facility] Comment on above: Performed By: #### R ENAL ####[id number] [place] [address] Urea nitrogen [Mass/Vol] 36 mg/dL High 6 - 23 [facility] Comment on above: Performed By: #### R ENAL ####[id number] [place] [address] Radiologyon 12-04-2022 XR Chest Single view Normal MG-O tolaryn [facility] 4100 Work Phone: [phone] Rapid Response Nurse Noteon 12-04-2022 Rapid Response Nurse Note Normal [facility] Renal Function Panelon 12-04 Albumin BCP dye [Mass/Vol] 4.1 g/dL 3.4 - 5.0 MG-Otolaryn [facility] 4100 Work Phone: [phone] Anion gap [Moles/Vol] 17 mmol/L 10 - 20 MG- Otolaryn [facility]-[place] 143780 Work Phone: [phone] Calcium [Mass/Vol] 8.9 mg/dL 8.6 - 10.6 MG-Mao laryn gology-[facility] 4100 Work Phone: [phone] Chloride [Moles/Vol] 107 mmol/L 98 - 107 MG-O tolaryn [facility]ology-[facility] 4100 Work Phone: [phone] CO2 [Moles/Vol] 24 mmol/L 21 - 32 MG-Otolar yn gology-[facility] 4100 Work Phone: [phone] Creatinine [Mass/Vol] 2.01 mg/dL above high threshold See Below [facility]tolaryn [facility]-[place] 143780 Work Phone: [phone] Comment on above: Reference Range: 0.5 0 - 1.30 Glucose [Mass/Vol] 227 mg/dL above high threshold 74 - 99 [facility]tolaryn [facility] 4100 Work Phone: [phone] Phosphate [Mass/Vol] 6.1 mg/dL above high threshold 2.5 - 4.9 [facility] [address] Work Phone: [phone] Comment on above: The performance violet acteristics of phosphorus testing in heparinized plasma have been validated by the individual laboratory site where testing is performed. Testing on heparinized plasma is not approved by the FDA; however, such approval is not necessary. Potassium [Moles/Vol] 5.0 mmol/L 3.5 - 5.3 MG- Otolaryn [facility]ology-[facility] 4100 Work Phone: Sodium [Moles/Vol] 143 mmol/L 136 - 145 MG-[facility] laryn [facility] 4100 Work Phone: Urea nitrogen [Mass/Vol] 36 mg/dL above high threshold 6 - 23 MG-Otolaryn [facility] 4100 Work Phone: Renal Function Panel 35 {mL/min/1.73m2} Abnormal >90 [facility] Work Phone: Comment on above: CALCULATIONS OF REYNALDO MATED GFR ARE PERFORMED USING THE 2020 CKD-EPI STUDY REFIT EQUATION WITHOUT THE RACE VARIABLE FOR THE IDMS-TRACEABLE CREATININE METHODS.https://jasn.asnjournals.org/content///A SN.7036486729 TH CHEST 1 VIEWon 12-04-2022 CHEST 1 VIEW Normal [facility] VENOUS BLOOD GASon 3 BASE EXCESS-BLOOD -3.1 mmol/L Low -2.0 - 3.0 [facility] Comment on above: Performed By: #### B LGV2 ####[id number] [place] [address] BICARB, CALCULATED 24.0 mmol/L Normal 22.0 - 26.0 [facility] Comment on above: Performed By: #### B LGV2 ####[id number] [place] [address] OXY HGB 65.8 % Normal 45.0 - 75.0 [facility] Comment on above: Performed By: #### B LGV2 ####[id number] [place] [address] Oxygen (Bld) [Partial pressure] 42 mm[Hg] Normal 35 - 45 [facility] Comment on above: Performed By: #### B LGV2 ####[id number] [place] [address] PATIENT TEMPERATURE 37.0 degrees C Normal [facility] Comment on above: Result Comment: NOTE : PATIENT RESULTS ARE NOT CORRECTED FOR TEMPERATURE. Performed By: #### B LGV2 ####[id number] [place] [address] PCO2 50 mmHg Normal 41 - 51 [facility] Comment on above: Performed By: #### B LGV2 ####[id number] [place] [address] pH (Bld) 7.29 [pH] Low 7.33 - 7.43 [facility] Comment on above: Performed By: #### B LGV2 ####[id number] [place] [address] SO2 67 % Normal 45 - 75 [facility] Comment on above: Performed By: #### B LGV2 ####[id number] [place] [address] Vital signson 12-04-2022 Oxygen saturation in Venous blood 67 % 45 - 75 [facility]DOtolarchildren[facility]usogy[facility] 4100 Work Phone: ARTERIAL FULL PANELon 2022 Anion gap [Moles/Vol] 11 mmol/L Normal 10 - 25 [facility] Comment on above: Performed By: #### A FPA4 ####[id number] [place] [address] BASE EXCESS-BLOOD -2.5 mmol/L Low -2.0 - 3.0 [facility] Comment on above: Performed By: #### A FPA4 ####[id number] [place] [address] BICARB, CALCULATED 22.5 mmol/L Normal 22.0 - 26.0 [facility] Comment on above: Performed By: #### A FPA4 ####[id number] [place] [address] CALCIUM,IONIZED 1.18 mmol/L Normal 1.10 - 1.33 [facility] Comment on above: Performed By: #### A FPA4 ####[id number] [place] [address] Chloride [Moles/Vol] 108 mmol/L High 98 - 107 [facility] Comment on above: Performed By: #### A FPA4 ####[id number] [place] [address] Glucose [Mass/Vol] 200 mg/dL High 74 - 99 [facility] Comment on above: Performed By: #### A FPA4 ####[id number] [place] [address] Hematocrit (Bld) [Volume fraction] 30.0 % Low 41.0 - 52.0 [facility] Comment on above: Performed By: #### A FPA4 ####[id number] [place] [address] Hemoglobin (Bld) [Mass/Vol] 10.1 g/dL Low 13.5 - 17.5 [facility] Comment on above: Performed By: #### A FPA4 ####[id number] [place] [address] Lactate [Moles/Vol] 1.1 mmol/L Normal 0.4 - 2.0 [facility] Comment on above: Performed By: #### A FPA4 ####[id number] [place] [address] OXY HGB 97.3 % Normal 94.0 - 98.0 [facility] Comment on above: Performed By: #### A FPA4 ####[id number] [place] [address] Oxygen (Bld) [Partial pressure] 144 mm[Hg] High 85 - 95 [facility] Comment on above: Performed By: #### A FPA4 ####[id number] [place] [address] PATIENT TEMPERATURE 37.0 degrees C Normal [facility] Comment on above: Result Comment: NOTE : PATIENT RESULTS ARE NOT CORRECTED FOR TEMPERATURE. Performed By: #### A FPA4 ####[id number] [place] [address] PCO2 39 mmHg Normal 38 - 42 [facility] Comment on above: Performed By: #### A FPA4 ####[id number] [place] [address] pH (Bld) 7.37 [pH] Low 7.38 - 7.42 [facility] Comment on above: Performed By: #### A FPA4 ####[id number] [place] [address] Potassium [Moles/Vol] 4.5 mmol/L Normal 3.5 - 5.3 [facility] Comment on above: Performed By: #### A FPA4 ####[id number] [place] [address] SO2 100 % Normal 94 - 100 [facility] Comment on above: Performed By: #### A FPA4 ####[id number] [place] [address] Sodium [Moles/Vol] 137 mmol/L Normal 136 - 145 [facility] Comment on above: Performed By: #### A FPA4 ####[id number] [place] [address] Anion gap [Moles/Vol] 10 mmol/L Normal 10 - 25 [facility] Comment on above: Performed By: #### A FPA4 ####[id number] [place] [address] BASE EXCESS-BLOOD -2.0 mmol/L Normal -2.0 - 3.0 [facility] Comment on above: Performed By: #### A FPA4 ####[id number] [place] [address] BICARB, CALCULATED 23.1 mmol/L Normal 22.0 - 26.0 [facility] Comment on above: Performed By: #### A FPA4 ####[id number] [place] [address] CALCIUM,IONIZED 1.16 mmol/L Normal 1.10 - 1.33 [facility] Comment on above: Performed By: #### A FPA4 ####[id number] [place] [address] Chloride [Moles/Vol] 108 mmol/L High 98 - 107 [facility] Comment on above: Performed By: #### A FPA4 ####[id number] [place] [address] Glucose [Mass/Vol] 180 mg/dL High 74 - 99 [facility] Comment on above: Performed By: #### A FPA4 ####[id number] [place] [address] Hematocrit (Bld) [Volume fraction] 32.0 % Low 41.0 - 52.0 [facility] Comment on above: Performed By: #### A FPA4 ####[id number] [place] [address] Hemoglobin (Bld) [Mass/Vol] 10.7 g/dL Low 13.5 - 17.5 [facility] Comment on above: Performed By: #### A FPA4 ####[id number] [place] [address] Lactate [Moles/Vol] 1.1 mmol/L Normal 0.4 - 2.0 [facility] Comment on above: Performed By: #### A FPA4 ####[id number] [place] [address] OXY HGB 96.2 % Normal 94.0 - 98.0 [facility] Comment on above: Performed By: #### A FPA4 ####[id number] [place] [address] Oxygen (Bld) [Partial pressure] 155 mm[Hg] High 85 - 95 [facility] Comment on above: Performed By: #### A FPA4 ####[id number] [place] [address] PATIENT TEMPERATURE 37.0 degrees C Normal [facility] Comment on above: Result Comment: NOTE : PATIENT RESULTS ARE NOT CORRECTED FOR TEMPERATURE. Performed By: #### A FPA4 ####[id number] [place] [address] PCO2 40 mmHg Normal 38 - 42 [facility] Comment on above: Performed By: #### A FPA4 ####[id number] [place] [address] pH (Bld) 7.37 [pH] Low 7.38 - 7.42 [facility] Comment on above: Performed By: #### A FPA4 ####[id number] [place] [address] Potassium [Moles/Vol] 4.6 mmol/L Normal 3.5 - 5.3 [facility] Comment on above: Performed By: #### A FPA4 ####[id number] [place] [address] SO2 99 % Normal 94 - 100 [facility] Comment on above: Performed By: #### A FPA4 ####[id number] [place] [address] Sodium [Moles/Vol] 136 mmol/L Normal 136 - 145 [facility] Comment on above: Performed By: #### A FPA4 ####[id number] [place] [address] Anion gap [Moles/Vol] 12 mmol/L Normal 10 - 25 [facility] Comment on above: Performed By: #### A FPA4 ####[id number] [place] [address] BASE EXCESS-BLOOD -0.8 mmol/L Normal -2.0 - 3.0 [facility] Comment on above: Performed By: #### A FPA4 ####[id number] [place] [address] BICARB, CALCULATED 24.3 mmol/L Normal 22.0 - 26.0 [facility] Comment on above: Performed By: #### A FPA4 ####[id number] [place] [address] CALCIUM,IONIZED 1.21 mmol/L Normal 1.10 - 1.33 [facility] Comment on above: Performed By: #### A FPA4 ####[id number] [place] [address] Chloride [Moles/Vol] 107 mmol/L Normal 98 - 107 [facility] Comment on above: Performed By: #### A FPA4 ####[id number] [place] [address] Glucose [Mass/Vol] 107 mg/dL High 74 - 99 [facility] Comment on above: Performed By: #### A FPA4 ####[id number] [place] [address] Hematocrit (Bld) [Volume fraction] 35.0 % Low 41.0 - 52.0 [facility] Comment on above: Performed By: #### A FPA4 ####[id number] [place] [address] Hemoglobin (Bld) [Mass/Vol] 11.8 g/dL Low 13.5 - 17.5 [facility] Comment on above: Performed By: #### A FPA4 ####[id number] [place] [address] Lactate [Moles/Vol] 1.0 mmol/L Normal 0.4 - 2.0 [facility] Comment on above: Performed By: #### A FPA4 ####[id number] [place] [address] OXY HGB 96.8 % Normal 94.0 - 98.0 [facility] Comment on above: Performed By: #### A FPA4 ####[id number] [place] [address] Oxygen (Bld) [Partial pressure] 153 mm[Hg] High 85 - 95 [facility] Comment on above: Performed By: #### A FPA4 ####[id number] [place] [address] PATIENT TEMPERATURE 37.0 degrees C Normal [facility] Comment on above: Result Comment: NOTE : PATIENT RESULTS ARE NOT CORRECTED FOR TEMPERATURE. Performed By: #### A FPA4 ####[id number] [place] [address] PCO2 41 mmHg Normal 38 - 42 [facility] Comment on above: Performed By: #### A FPA4 ####[id number] [place] [address] pH (Bld) 7.38 [pH] Normal 7.38 - 7.42 [facility] Comment on above: Performed By: #### A FPA4 ####[id number] [place] [address] Potassium [Moles/Vol] 4.0 mmol/L Normal 3.5 - 5.3 [facility] Comment on above: Performed By: #### A FPA4 ####[id number] [place] [address] SO2 100 % Normal 94 - 100 [facility] Comment on above: Performed By: #### A FPA4 ####[id number] [place] [address] Sodium [Moles/Vol] 139 mmol/L Normal 136 - 145 [facility] Comment on above: Performed By: #### A FPA4 ####[id number] [place] [address] Clinical Note - Pharmacy v2- Medication Educationon 12-03-2022 Clinical Note - Pharmacy v2-Medication Education Normal [facility] GLUCOSE-POCTon 12-03-2022 Glucose [Mass/Vol] 234 mg/dL High 74 - 99 [facility] Comment on above: Performed By: #### G SUSAN ####[id number] [id number] Glucose [Mass/Vol] 219 mg/dL High 74 - 99 [facility] Comment on above: Performed By: #### G SUSAN ####[id number] [place] [address] Glucose [Mass/Vol] 158 mg/dL High 74 - 99 [facility] Comment on above: Performed By: #### G SUSAN ####[id number] [place] [address] Laboratory - Blood bankon ABO group Nom (Bld) A MG-Ot [facility] 4100 Work Phone: Blood group antibody screen Ql Negative MG-Otolaryn gology-[place] [address] Work Phone: Rh immune globulin screen (Bld) [Interp] Positive MG-Otolary n gology-[place] [address] Work Phone: Laboratory - Chemistry and C hemistry - challengeon 12-03-2022 Glucose [Mass/Vol] 234 mg/dL above high threshold 74 - 99 MG-Otolaryn gology-[place] [address] Work Phone: Glucose [Mass/Vol] 219 mg/dL above high threshold 74 - 99 MG-Otolaryn gology-[place] [address] Work Phone: Anion gap 4 (BldA) [Moles/Vol] 11 mmol/L 10 - 25 MG-Otolaryn gology-[place] [address] Work Phone: Base excess Calc (Bld) [Moles/Vol] -2.5000 mmol/L below low threshold -2.0 - 3.0 MG-Otolaryn gology-[place] [address] Work Phone: Calcium.ionized (BldA) [Moles/Vol] 1.18 mmol/L See Below MG-Otolaryn gology-[place] [address] Work Phone: Comment on above: Reference Range: 1.1 0 - 1.33 Chloride (BldA) [Moles/Vol] 108 mmol/L above high threshold 98 - 107 MG-Otolaryn gology-[place] [address] Work Phone: [phone] CO2 (Bld) [Partial pressure] 39 mm[Hg] 38 - 42 MG-Otolaryn gology-[place] [address] Work Phone: Glucose [Mass/Vol] 200 mg/dL above high threshold 74 - 99 MG-Otolaryn gology-[place] [address] Work Phone: HCO3 (Bld) [Moles/Vol] 22.5 mmol/L See Below M GOtsheree [place] [address] Work Phone: [phone] Comment on above: Reference Range: 22. 0 - 26.0 Lactate (BldA) [Moles/Vol] 1.1 mmol/L 0.4 - 2.0 [facility]DOtstrasburglisbet [facility]ery[facility] [place] [address] Work Phone: [phone] Oxygen (Bld) [Partial pressure] 144 mm[Hg] above high threshold 85 - 95 [facility]DOtstrasburglisbet [place] [address] Work Phone: [phone] Oxyhemoglobin (BldA) [Mass fraction] 97.3 % See Below [facility]DOtstrasburglisbet [facility]ery[facility] [address] Work Phone: [phone] Comment on above: Reference Range: 94. 0 - 98.0 pH (Bld) 7.37 [pH] below low threshold See Below [facility]olarlisbet [facility]ery[facility] [address] Work Phone: [phone] Comment on above: Reference Range: 7.3 8 - 7.42 Potassium (BldA) [Moles/Vol] 4.5 mmol/L 3.5 - 5.3 [facility]ery[facility] [address] Work Phone: [phone] Sodium (BldA) [Moles/Vol] 137 mmol/L 136 - 145 [place] [address] Work Phone: [phone] Anion gap 4 (BldA) [Moles/Vol] 10 mmol/L 10 - 25 [place] [address] Work Phone: Base excess Calc (Bld) [Moles/Vol] -2.0000 mmol/L -2.0 - 3.0 [facility] [place] [address] Work Phone: [phone] Calcium.ionized (BldA) [Moles/Vol] 1.16 mmol/L See Below [facility]DOtolaryn gology-[place] [address] Work Phone: [phone] Comment on above: Reference Range: 1.1 0 - 1.33 Chloride (BldA) [Moles/Vol] 108 mmol/L above high threshold 98 - 107 MG-Otolaryn gology-[place] [address] Work Phone: [phone] CO2 (Bld) [Partial pressure] 40 mm[Hg] 38 - 42 MG-Otolaryn gology-[place] [address] Work Phone: [phone] Glucose [Mass/Vol] 180 mg/dL above high threshold 74 - 99 -Otolaryn gology-[place] [address] Work Phone: [phone] HCO3 (Bld) [Moles/Vol] 23.1 mmol/L See Below M G-Otolaryn [facility] centerogyR[facility] [place] [address] Work Phone: [phone] Comment on above: Reference Range: 22. 0 - 26.0 Lactate (BldA) [Moles/Vol] 1.1 mmol/L 0.4 - 2.0 MG-Otolaryn gology-[place] [address] Work Phone: [phone] Oxygen (Bld) [Partial pressure] 155 mm[Hg] above high threshold 85 - 95 -Otstrasburgyn [facility]eryR[place] [address] Work Phone: [phone] Oxyhemoglobin (BldA) [Mass fraction] 96.2 % See Below -Otolaryn gology-[place] [address] Work Phone: [phone] Comment on above: Reference Range: 94. 0 - 98.0 pH (Bld) 7.37 [pH] below low threshold See Below -Otolaryn gology-[place] [address] Work Phone: [phone] Comment on above: Reference Range: 7.3 8 - 7.42 Potassium (BldA) [Moles/Vol] 4.6 mmol/L 3.5 - 5.3 MG-Otolaryn [facility] [address] Work Phone: [phone] Sodium (BldA) [Moles/Vol] 136 mmol/L 136 - 145 MG-Otolaryn [facility] centerogyR[place] [address] Work Phone: [phone] Anion gap 4 (BldA) [Moles/Vol] 12 mmol/L 10 - 25 MG-Otolaryn [facility] centerogyR[place] [address] Work Phone: [phone] Base excess Calc (Bld) [Moles/Vol] -0.8000 mmol/L -2.0 - 3.0 MG-Otolaryn [facility] centerogyR[place] [address] Work Phone: [phone] Calcium.ionized (BldA) [Moles/Vol] 1.21 mmol/L See Below -Otolaryn [facility]eryR[place] [address] Work Phone: [phone] Comment on above: Reference Range: 1.1 0 - 1.33 Chloride (BldA) [Moles/Vol] 107 mmol/L 98 - 107 MG-Otstrasburglisbet [facility] [address] Work Phone: [phone] CO2 (Bld) [Partial pressure] 41 mm[Hg] 38 - 42 -Otstrasburglisbet [facility]eryR[place] [address] Work Phone: [phone] Glucose [Mass/Vol] 107 mg/dL above high threshold 74 - 99 MG-Otolaryn [facility] centerogyR[place] [address] Work Phone: [phone] HCO3 (Bld) [Moles/Vol] 24.3 mmol/L See Below M GOtolaryn [facility]ery[facility] [address] Work Phone: [phone] Comment on above: Reference Range: 22. 0 - 26.0 Lactate (BldA) [Moles/Vol] 1.0 mmol/L 0.4 - 2.0 MG-Otstrasburgyn [facility]ery[place] [address] Work Phone: [phone] Oxygen (Bld) [Partial pressure] 153 mm[Hg] above high threshold 85 - 95 -Otolarlisbet [facility]ery[facility] [address] Work Phone: Oxyhemoglobin (BldA) [Mass fraction] 96.8 % See Below [facility]allisbet [facility] centerogyR[place] [address] Work Phone: Comment on above: Reference Range: 94. 0 - 98.0 pH (Bld) 7.38 [pH] See Below [facility]DOtolarlisbet [facility] centerogyR[place] [address] Work Phone: Comment on above: Reference Range: 7.3 8 - 7.42 Potassium (BldA) [Moles/Vol] 4.0 mmol/L 3.5 - 5.3 [facility]ery[facility] [address] Work Phone: Sodium (BldA) [Moles/Vol] 139 mmol/L 136 - 145 [facility]LandyR[facility] [address] Work Phone: Glucose [Mass/Vol] 158 mg/dL above high threshold 74 - 99 [facility]ery[facility] [address] Work Phone: Laboratory - Hematology and Cell countson 12-03-2022 Hematocrit Est (Bld) [Volume fraction] 30.0 % below low threshold See Below [facility] EDMONDOtolarlisbet [facility] centerhaileyyRachel [place] [address] Work Phone: Comment on above: Reference Range: 41. 0 - 52.0 Hemoglobin (Bld) [Mass/Vol] 10.1 g/dL below low threshold See Below [facility]olarlisbet [facility]ery[facility] [address] Work Phone: Comment on above: Reference Range: 13. 5 - 17.5 Hematocrit Est (Bld) [Volume fraction] 32.0 % below low threshold See Below [facility]allisbet [facility] centerogyR[place] [address] Work Phone: Comment on above: Reference Range: 41. 0 - 52.0 Hemoglobin (Bld) [Mass/Vol] 10.7 g/dL below low threshold See Below [facility] 410 Work Phone: Comment on above: Reference Range: 13. 5 - 17.5 Hematocrit Est (Bld) [Volume fraction] 35.0 % below low threshold See Below -[facility]aryn [facility] 4100 Work Phone: Comment on above: Reference Range: 41. 0 - 52.0 Hemoglobin (Bld) [Mass/Vol] 11.8 g/dL below low threshold See Below [facility]MONDOtolaryn gologyNorth [facility] 4100 Work Phone: Comment on above: Reference Range: 13. 5 - 17.5 No Panel Informationon 12-03 MG-Otolaryn gology-[facility] Work Phone: Order Reconciliationon 12-03 Order Reconciliation Normal [facility] Patient Profile - Preop v3on 12-03-2022 Patient Profile - Preop v3 Normal [facility] Radiologyon 12-03-2022 XR Chest Single view Normal MG-O nataliia [facility] 4100 Work Phone: TH CHEST; 1 VIEWon 3 TH CHEST; 1 VIEW Normal [facility] TYPE + SCREENon 12-03-2022 ABO TYPE A Normal [facility] Comment on above: Performed By: #### T +S ####[id number] [place] [address] RH TYPE Positive Normal [facility] Comment on above: Performed By: #### T +S ####[id number] [place] [address] [facility] Surgical Pathology Depar tmenton 12-03-2022 [facility] Surgical Pathology Department Normal [facility] Comment on above: Performed By: #### U HCS ####[facility] Surgical Pathology [id number] [address] C Reactive Protein, Serumon 12-02-2022 CRP [Mass/Vol] 0.35 mg/dL MG-Otolary n gology-[facility] 4100 Work Phone: Comment on above: REF VALUE< 1.00 C-REACTIVE PROTEINon 023 C-REACTIVE PROTEIN 0.35 mg/dL Normal [facility] Comment on above: Order Comment: [facility] CARE TEAM #6 Result Comment: REF VALUE< 1.00 Performed By: #### C RP ####[address] [address] CBC AND DIFFERENTIALon 12-02 % AUTOMATED IMMATURE GRAN 1.2 % High 0.0 - 0.9 [facility] Comment on above: Order Comment: [facility] CARE TEAM #6 Result Comment: Sarah ture Granulocyte Count (IG) includes promyelocytes, myelocytes and metamyelocytes but does not include bands. Percent differential counts (%) should be interpreted in the context of the absolute cell counts (cells/L). Performed By: #### C BCDF ####[address] [address] Basophils (Bld) [#/Vol] 0.05 10*3/uL Normal 0.00 - 0.10 [facility] Comment on above: Order Comment: [facility] CARE TEAM #6 Performed By: #### C BCDF ####[address] [address] Basophils/100 WBC (Bld) 0.6 % Normal 0.0 - 2.0 [facility] Comment on above: Order Comment: [facility] CARE TEAM #6 Performed By: #### C BCDF ####[address] [address] Eosinophils (Bld) [#/Vol] 0.16 10*3/uL Normal 0.00 - 0.70 [facility] Comment on above: Order Comment: [facility] CARE TEAM #6 Performed By: #### C BCDF ####[address] [address] Eosinophils/100 WBC (Bld) 1.9 % Normal 0.0 - 6.0 [facility] Comment on above: Order Comment: [facility] CARE TEAM #6 Performed By: #### C BCDF ####[address] [address] Erythrocyte distribution width (RBC) [Ratio] 15.0 % High 11.5 - 14.5 [facility] Comment on above: Order Comment: HO ME CARE TEAM #6 Performed By: #### C BCDF ####[address] [address] Hematocrit (Bld) [Volume fraction] 38.2 % Low 41.0 - 52.0 [facility] Comment on above: Order Comment: HO ME CARE TEAM #6 Performed By: #### C BCDF ####[address] [address] Hemoglobin (Bld) [Mass/Vol] 11.9 g/dL Low 13.5 - 17.5 [facility] Comment on above: Order Comment: HO ME CARE TEAM #6 Performed By: #### C BCDF ####[address] [address] Lymphocytes (Bld) [#/Vol] 1.40 10*3/uL Normal 1.20 - 4.80 [facility] Comment on above: Order Comment: HO ME CARE TEAM #6 Performed By: #### C BCDF ####[address] [address] Lymphocytes/100 WBC (Bld) 16.5 % Normal 13.0 - 44.0 [facility] Comment on above: Order Comment: HO ME CARE TEAM #6 Performed By: #### C BCDF ####[address] [address] MCHC (RBC) [Mass/Vol] 31.2 g/dL Low 32.0 - 36.0 [facility] Comment on above: Order Comment: HO ME CARE TEAM #6 Performed By: #### C BCDF ####[address] [address] MCV (RBC) [Entitic vol] 99 fL Normal 80 - 100 [facility] Comment on above: Order Comment: HO ME CARE TEAM #6 Performed By: #### C BCDF ####[address] [address] Monocytes (Bld) [#/Vol] 0.63 10*3/uL Normal 0.10 - 1.00 [facility] Comment on above: Order Comment: HO ME CARE TEAM #6 Performed By: #### C BCDF ####[address] [address] Monocytes/100 WBC (Bld) 7.4 % Normal 2.0 - 10.0 [facility] Comment on above: Order Comment: HO ME CARE TEAM #6 Performed By: #### C BCDF ####[address] [address] Neutrophils (Bld) [#/Vol] 6.13 10*3/uL Normal 1.20 - 7.70 [facility] Comment on above: Order Comment: HO ME CARE TEAM #6 Result Comment: Perc ent differential counts (%) should be interpreted in the context of the absolute cell counts (cells/L). Performed By: #### C BCDF ####[address] [address] Neutrophils/100 WBC (Bld) 72.4 % Normal 40.0 - 80.0 [facility] Comment on above: Order Comment: HO ME CARE TEAM #6 Performed By: #### C BCDF ####[address] [address] Platelets (Bld) [#/Vol] 346 10*3/uL Normal 150 - 450 [facility] Comment on above: Order Comment: HO ME CARE TEAM #6 Performed By: #### C BCDF ####[address] [address] RBC 3.85 x10E12/L Low 4.50 - 5.90 [facility] Comment on above: Order Comment: HO ME CARE TEAM #6 Performed By: #### C BCDF ####[address] [address] WBC (Bld) [#/Vol] 8.5 10*3/uL Normal 4.4 - 11.3 [facility] Comment on above: Order Comment: HO ME CARE TEAM #6 Performed By: #### C BCDF ####[address] [address] COMPREHENSIVE PANELon 2022 Albumin [Mass/Vol] 3.8 g/dL Normal 3.4 - 5.0 [facility] Comment on above: Order Comment: HO ME CARE TEAM #6 Performed By: #### C MP ####[address] [address] ALP [Catalytic activity/Vol] 50 U/L Normal 33 - 136 [facility] Comment on above: Order Comment: HO ME CARE TEAM #6 Performed By: #### C MP ####[address] [address] ALT [Catalytic activity/Vol] 14 U/L Normal 10 - 52 [facility] Comment on above: Order Comment: HO ME CARE TEAM #6 Result Comment: Radha ents treated with Sulfasalazine may generate falsely decreased results for ALT. Performed By: #### C MP ####[address] [address] Anion gap [Moles/Vol] 15 mmol/L Normal 10 - 20 [facility] Comment on above: Order Comment: HO ME CARE TEAM #6 Performed By: #### C MP ####[address] [address] AST [Catalytic activity/Vol] 17 U/L Normal 9 - 39 [facility] Comment on above: Order Comment: HO ME CARE TEAM #6 Performed By: #### C MP ####[address] [address] Bilirubin [Mass/Vol] 0.5 mg/dL Normal 0.0 - 1.2 [facility] Comment on above: Order Comment: HO ME CARE TEAM #6 Performed By: #### C MP ####[address] [address] Calcium [Mass/Vol] 9.0 mg/dL Normal 8.6 - 10.3 [facility] Comment on above: Order Comment: [facility] CARE TEAM #6 Performed By: #### C MP ####[address] [address] Chloride [Moles/Vol] 103 mmol/L Normal 98 - 107 [facility] Comment on above: Order Comment: [facility] CARE TEAM #6 Performed By: #### C MP ####[address] [address] Creatinine [Mass/Vol] 1.54 mg/dL High 0.50 - 1.30 [facility] Comment on above: Order Comment: [facility] CARE TEAM #6 Performed By: #### C MP ####[address] [address] GFR/1.73 sq M.predicted among non-blacks MDRD (S/P/Bld) [Vol rate/Area] 48 mL/min/{1.73_m2} Abnormal >90 [facility] Comment on above: Order Comment: [facility] CARE TEAM #6 Result Comment: CALC ULATIONS OF ESTIMATED GFR ARE PERFORMED USING THE 2020 CKD-EPI STUDY REFIT EQUATION WITHOUT THE RACE VARIABLE FOR THE IDMS-TRACEABLE CREATININE METHODS.https://jasn.asnjournals.org/content/early//A SN.4187314253 Performed By: #### C MP ####[address] [address] Glucose [Mass/Vol] 185 mg/dL High 74 - 99 [facility] Comment on above: Order Comment: [facility] CARE TEAM #6 Performed By: #### C MP ####[address] [address] HCO3 (Bld) [Moles/Vol] 24 mmol/L Normal 21 - 32 [facility] Comment on above: Order Comment: [facility] CARE TEAM #6 Performed By: #### C MP ####[address] [address] Potassium [Moles/Vol] 3.7 mmol/L Normal 3.5 - 5.3 [facility] Comment on above: Order Comment: [facility] ME CARE TEAM #6 Performed By: #### C MP ####[address] [address] Protein [Mass/Vol] 6.8 g/dL Normal 6.4 - 8.2 [facility] Comment on above: Order Comment: [facility] ME CARE TEAM #6 Performed By: #### C MP ####[address] [address] Sodium [Moles/Vol] 138 mmol/L Normal 136 - 145 [facility] Comment on above: Order Comment: [facility] ME CARE TEAM #6 Performed By: #### C MP ####[address] [address] Urea nitrogen [Mass/Vol] 44 mg/dL High 6 - 23 [facility] Comment on above: Order Comment: [facility] ME CARE TEAM #6 Performed By: #### C MP ####[address] [address] CORONAVIRUS 2019, SCREEN ASY MPTOMATICon 12-02-2022 SARS-CoV-2 (COVID-19) RNA JF+probe Ql (Unsp spec) Not detected Normal Not Detected [facility] Comment on above: Result Comment: .Thi s assay is designed to detect the ORF1a/b and E genes of SARS-CoV-2 vianucleic acid amplification. A Not Detected result does not [id number] infection since the adequacy of sample collection and/or low viralburden may result in presence of viral nucleic acids below the clinicalsensitivity of this test method.Fact sheet for providers: https://www.fda.gov/media/870248/downloadFact sheet for patients: https://www.fda.gov/media/311177/downloadThis test has received FDA Emergency Use Authorization (EUA) and has beenverified for use by [facility] ([facility]).This test is only authorized for the duration of time that circumstancesexist to justify the authorization of the emergency use of in vitrodiagnostic tests for the detection of SARS-CoV-2 virus and/or diagnosis ofCOVID-19 infection under section 564(b)(1) of the Act, 21 U.S.C.360bbb-3(b)(1), unless the authorization is terminated or revoked sooner.[facility] is certified under CLIA-88 asqualified to perform high complexity testing. Testing is performed in [facility] laboratories located at [id number] [place] [address]. Performed By: #### C OVSC ####[id number] [facility] [place] [address] Complete Blood Count + Diffe bartoloon 12-02-2022 Basophils/100 WBC (Bld) 0.6 % 0.0 - 2.0 [facility]DOtinter[facility] centeryR[place] [address] Work Phone: Erythrocyte distribution width (RBC) [Ratio] 15.0 % above high threshold See Below [facility]ery[facility] [address] Work Phone: Comment on above: Reference Range: 11. 5 - 14.5 Hematocrit (Bld) [Volume fraction] 38.2 % below low threshold See Below [facility]ery[facility] [address] Work Phone: Comment on above: Reference Range: 41. 0 - 52.0 Hemoglobin (Bld) [Mass/Vol] 11.9 g/dL below low threshold See Below [facility] [address] Work Phone: Comment on above: Reference Range: 13. 5 - 17.5 Lymphocytes/100 WBC (Bld) 16.5 % See Below [facility] [place] [address] Work Phone: Comment on above: Reference Range: 13. 0 - 44.0 MCHC (RBC) [Mass/Vol] 31.2 g/dL below low threshold See Below [facility] [place] [address] Work Phone: Comment on above: Reference Range: 32. 0 - 36.0 MCV (RBC) [Entitic vol] 99 fL 80 - 100 MG-Otolaryn gology-[place] [address] Work Phone: [phone] Monocytes/100 WBC (Bld) 7.4 % 2.0 - 10.0 MG-Otolaryn gology-[place] [address] Work Phone: [phone] Neutrophils/100 WBC (Bld) 72.4 % See Below MG-Otolaryn gology-[place] [address] Work Phone: [phone] Comment on above: Reference Range: 40. 0 - 80.0 Platelets (Bld) [#/Vol] 346 10*3/uL 150 - 450 -Otolaryn gologyR[place] [address] Work Phone: [phone] RBC (Bld) [#/Vol] 3.85 {x10E12/L} below low threshold See Below MG-Otolaryn [place]ologyR[place] [address] Work Phone: [phone] Comment on above: Reference Range: 4.5 0 - 5.90 WBC (Bld) [#/Vol] 8.5 10*3/uL 4.4 - 11.3 MG-Mao laryn [facility] [place] [address] Work Phone: [phone] Complete Blood Count + Differential 0.05 {x10E9/L} See Below MG-Otolaryn [place]ologyR[place] [address] Work Phone: [phone] Comment on above: Reference Range: 0.0 0 - 0.10 Complete Blood Count + Differential 0.16 {x10E9/L} See Below MG-Otolaryn gology-[place] [address] Work Phone: [phone] Comment on above: Reference Range: 0.0 0 - 0.70 Complete Blood Count + Differential 0.63 {x10E9/L} See Below MG-Otolaryn gology-[place] [address] Work Phone: [phone] Comment on above: Reference Range: 0.1 0 - 1.00 Complete Blood Count + Differential 1.40 {x10E9/L} See Below [facility] 410 Work Phone: Comment on above: Reference Range: 1.2 0 - 4.80 Complete Blood Count + Differential 6.13 {x10E9/L} See Below [facility] 410 Work Phone: Comment on above: Reference Range: 1.2 0 - 7.70 Percent differential counts (%) should be interpreted in the context of the absolute cell counts (cells/L). Complete Blood Count + Differential 1.9 % 0.0 - 6.0 [facility] 4100 Work Phone: Complete Blood Count + Differential 1.2 % above high threshold 0.0 - 0.9 [place] [address]6090 Work Phone: Comment on above: Immature Granulocyte Count (IG) includes promyelocytes, myelocytes and metamyelocytes but does not include bands. Percent differential counts (%) should be interpreted in the context of the absolute cell counts (cells/L). Covid 19 Resultson 3 SARS-CoV-2 (COVID-19) RNA JF+probe Ql (Unsp spec) Normal [facility] Laboratory - Chemistry and C hemistry - challengeon 12-02-2022 Albumin BCP dye [Mass/Vol] 3.8 g/dL 3.4 - 5.0 [facility] 4100 Work Phone: ALP [Catalytic activity/Vol] 50 U/L 33 - 136 [facility] 4100 Work Phone: ALT With P-5'-P [Catalytic activity/Vol] 14 U/L 10 - 52 [place] 166090 Work Phone: Comment on above: Patients treated wit h Sulfasalazine may generate falsely decreased results for ALT. Anion gap [Moles/Vol] 15 mmol/L 10 - 20 MG- Otolaryn gology-[place] [address] Work Phone: [phone] AST With P-5'-P [Catalytic activity/Vol] 17 U/L 9 - 39 MG-Otolaryn gology-[place] 143780 Work Phone: [phone] Bilirubin [Mass/Vol] 0.5 mg/dL 0.0 - 1.2 MG-O tolaryn gology-[place] 143780 Work Phone: [phone] Calcium [Mass/Vol] 9.0 mg/dL 8.6 - 10.3 MG-Mao laryn gology-[place] 143780 Work Phone: [phone] Chloride [Moles/Vol] 103 mmol/L 98 - 107 MG-O tolaryn gology-[place] 143780 Work Phone: [phone] CO2 [Moles/Vol] 24 mmol/L 21 - 32 MG-Otolar yn [facility]-[place] 143780 Work Phone: [phone] Creatinine [Mass/Vol] 1.54 mg/dL above high threshold See Below MG-Otolaryn gology-[place] [address] Work Phone: [phone] Comment on above: Reference Range: 0.5 0 - 1.30 Glucose [Mass/Vol] 185 mg/dL above high threshold 74 - 99 MG-Otolaryn gology-[place] 143780 Work Phone: [phone] Potassium [Moles/Vol] 3.7 mmol/L 3.5 - 5.3 MG- Otolaryn gology-[place] 143780 Work Phone: [phone] Protein [Mass/Vol] 6.8 g/dL 6.4 - 8.2 MG-Mao laryn gology-[place] 143780 Work Phone: [phone] Sodium [Moles/Vol] 138 mmol/L 136 - 145 [facility] 4100 Work Phone: Urea nitrogen [Mass/Vol] 44 mg/dL above high threshold 6 - 23 [facility] 4100 Work Phone: No Panel Informationon 12-02 48 {mL/min/1.73m2} Abnormal >90 [facility] 4100 Work Phone: Comment on above: CALCULATIONS OF REYNALDO MATED GFR ARE PERFORMED USING THE 2020 CKD-EPI STUDY REFIT EQUATION WITHOUT THE RACE VARIABLE FOR THE IDMS-TRACEABLE CREATININE METHODS.https://jasn.asnjournals.org/content/early/A SN.9584558498 Absolute lymphocyte countOrd ered By: Dr. Benitez on 12-01-2022 Lymphocytes Auto (Unsp spec) [#/Vol] 1.84 10*3/uL 0.83-4.51 [facility] Basophil percentageOrdered B y: Dr. Benitez on 12-01-2022 Basophils/100 WBC (Bld) 0.8 % 0-1 [facility] Bilirubin [Mass/Vol] 0.20 mg/dL 0.20-1.00 [facility] Comment on above: For patients on eltr ombopag therapy, use of [facility] TBIL is not recommended. Chloride [Moles/Vol] 108 mmol/L 98-107 [facility] Eosinophils/100 WBC (Bld) 3.1 % 0-5 [facility] Glucose [Mass/Vol] 191 mg/dL 74-106 [facility] Comment on above: Fasting Glucose resu lt greater than or equal to 126 mg/dL suggests DIABETES MELLITUS per A.D.A. criteria. Neutrophils (Bld) [#/Vol] 4.6 10*3/uL 2.0-7.7 [facility] Neutrophils/100 WBC (Bld) 62.0 % 47-70 [facility] Potassium [Moles/Vol] 3.7 mmol/L 3.5-5.1 [facility] Protein [Mass/Vol] 6.8 g/dL 6.4-8.2 [facility] Sodium [Moles/Vol] 138 mmol/L 136-145 [facility] WBC (Bld) [#/Vol] 7.5 10*3/uL 4.4-11.0 [facility] Blood erythrocytes count (nu mber/volume)Ordered By: Dr. Benitez on 12-01-2022 RBC (Bld) [#/Vol] 4.06 10*6/uL 4.6-6.2 [facility] Blood hemoglobin measurement (mass/volume)Ordered By: Dr. Benitez on 12-01-2022 Hemoglobin (Bld) [Mass/Vol] 12.8 g/dL 13.0-16.5 [facility] Blood lymphocytes/100 leukoc ytesOrdered By: Dr. Benitez on 12-01-2022 Lymphocytes/100 WBC (Bld) 24.7 % 19-41 [facility] Blood monocytes/100 leukocyt esOrdered By: Dr. Benitez on 12-01-2022 Monocytes/100 WBC (Bld) 8.7 % 0-10 [facility] Blood platelet mean volumeOr dered By: Dr. Benitez on 12-01-2022 Platelet mean volume (Bld) [Entitic vol] 9.4 fL 6.2-12.0 [facility] CORONAVIRUS 2019, SCREEN ASY MPTOMATICon 12-01-2022 Lab Specimen Source Nasal, Nasopharyngeal Normal [facility] Comment on above: Performed By: #### C OVSC ####[id number] [place] [address] Coronavirus 2019 RNA by PCR, Screening Asymptomticon 12-01-2022 Coronavirus 2019 RNA by PCR, Screening Asymptomtic Not detected Normal See Below [facility] 0318 Work Phone: Comment on above: SOURCE: Nasal, [...] this test method. Fact sheet for providers: https://www.fda.gov/media/333632/download Fact sheet for patients: https://www.fda.gov/media/042932/download This test has received FDA Emergency Use Authorization (EUA) and has been verified for use by [facility] ([facility]). This test is only authorized for the duration of time that circumstances exist to justify the authorization of the emergency use of in vitro diagnostic tests for the detection of SARS-CoV-2 virus and/or diagnosis of COVID-19 infection under section 564(b)(1) of the Act, 21 U.S.C. 360bbb-3(b)(1), unless the authorization is terminated or revoked sooner.[facility] is certified under CLIA-88 as qualified to perform high complexity testing. Testing is performed in the [facility] laboratories located at [address] [place] [address]. Determination of erythrocyte mean corpuscular volume (MCV)Ordered By: Dr. 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 [facility] Hematocrit Auto (Bld) [Volum e fraction]Ordered By: Dr. Benitez on 12-01-2022 Hematocrit (Bld) [Volume fraction] 40.4 % 40-54 [facility] INR in Blood by Coagulation assayOrdered By: Dr. Benitez on 12-01-2022 INR Coag (Bld) [Relative time] 5.9 {INR} [facility] Laboratory - Chemistry and C hemistry - challengeOrdered By: Dr. Benitez on 12-01-2022 ALP [Catalytic activity/Vol] 63 U/L 45-117 [facility] ALT [Catalytic activity/Vol] 24 U/L 16-61 [facility] CO2 [Moles/Vol] 25.0 mmol/L 21.0-32.0 [facility] Globulin (S) [Mass/Vol] 3.9 g/dL 2.2-4.2 [facility] Urea nitrogen/Creatinine [Mass ratio] 16.9 mg/mg 10-20 [facility] Laboratory - Coagulationon 0 12-01-2022 INR Coag (PPP) [Relative time] 1.3 {INR} above high threshold 0.9 - 1.1 [facility] 4100 Work Phone: PT Coag (PPP) [Time] 14.9 s above high threshold 9.8 - 13.4 [facility] Work Phone: Laboratory - CoagulationOrde red By: Dr. Benitez on 12-01-2022 PT Coag (PPP) [Time] 52.9 s 11.7-14.9 [facility] Laboratory - Hematology and Cell countsOrdered By: Dr. Benitez on 12-01-2022 Erythrocyte distribution width (RBC) [Entitic vol] 54.3 fL 35.1-43.9 [facility] Erythrocyte distribution width (RBC) [Ratio] 14.9 % 11.6-14.6 [facility] Immature granulocytes/100 WBC (Bld) 0.700 % 0.0-0.9 [facility] Comment on above: IG% - Immature Granu locytes (promyelocytes, myelocytes and metamyelocytes) > 1% indicates that a LEFT SHIFT is Present. MCH (RBC) [Entitic mass] 31.5 pg 27.0-32.0 [facility] Nucleated RBC/100 WBC (Bld) [Ratio] 0 % 0-5 [facility] (RBC) [Mass/Vol]Or dered By: Dr. Benitez on 12-01-2022 [facility] (RBC) [Mass/Vol] 31.7 g/dL 32-36 [facility] No Panel InformationOrdered By: Dr. 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) Orders Mouth lesion, Oroantral fistula, Osteomyelitis of maxilla PT/INR; Status:Resulted - Requires Verification,Retrospectiv e By Protocol Authorization; Done: [id number] 10:38AM Performed:[facility]; Due:[id number];Ordered; Stat; For:Mouth lesion, Oroantral fistula, Osteomyelitis of [...] [Time] 14.9 s High 9.8 - 13.4 [facility] Comment on above: Performed By: #### P TINR ####[facility] [id number] [place] [address] PT, INR 1.3 High 0.9 - 1.1 [facility] Comment on above: Performed By: #### P TINR ####[facility][NOTE 3][id number] [place] [address] Platelets bldOrdered By: Dr. Benitez on 12-01-2022 Platelets (Bld) [#/Vol] 300 10*3/uL 150-450 [facility] Serum or plasma albumin lisa urement (mass/volume)Ordered By: Dr. Benitez on 12-01-2022 Albumin [Mass/Vol] 2.9 g/dL 3.2-5.0 [facility] Serum or plasma albumin/glob ulin mass ratioOrdered By: Dr. Benitez on 12-01-2022 Albumin/Globulin [Mass ratio] 0.7 {ratio} 0.9-2.4 [facility] Serum or plasma calcium lisa urement (mass/volume)Ordered By: Dr. Benitez on 12-01-2022 Calcium [Mass/Vol] 8.9 mg/dL 8.5-10.1 [facility] Serum or plasma creatinine m easurement (mass/volume)Ordered By: Dr. Benitez on 12-01-2022 Creatinine [Mass/Vol] 1.78 mg/dL 0.70-1.30 [facility] Comment on above: The validity of the calculated GFR & GFRAA in patients over 70 years has not been determined. Clinical correlation is essential. Serum or plasma urea nitroge n measurement (mass/volume)Ordered By: Dr. Benitez on 12-01-2022 Urea nitrogen [Mass/Vol] 30 mg/dL 7-18 [facility] Thin prep Papanicolaou smear with manual screeningOrdered By: Dr. Benitez on 12-01-2022 Thin prep Papanicolaou smear with manual screening 20 U/L 15-37 [facility] Thin prep Papanicolaou smear with manual screening 5 5-15 [facility] Tobacco Screening.on 023 Adult depression screening assessment No [facility] 4[facility] Work Phone: Fall risk assessment a) No falls within the last year [facility]DOtstrasburgyn [facility] 4100 Work Phone: Tobacco use status CPHS b) No -Otolaryn [facility] 4100 Work Phone: BASIC METABOLIC PANELon 11-15 Anion gap [Moles/Vol] 17 mmol/L Normal 10 - 20 [facility] Comment on above: Performed By: #### B MP ####[id number] [place] [address] Calcium [Mass/Vol] 9.4 mg/dL Normal 8.6 - 10.6 [facility] Comment on above: Performed By: #### B MP ####[id number] [place] [address] Chloride [Moles/Vol] 100 mmol/L Normal 98 - 107 [facility] Comment on above: Performed By: #### B MP ####[id number] [place] [address] Creatinine [Mass/Vol] 1.52 mg/dL High 0.50 - 1.30 [facility] Comment on above: Performed By: #### B MP ####[id number] [place] [address] GFR/1.73 sq M.predicted among non-blacks MDRD (S/P/Bld) [Vol rate/Area] 49 mL/min/{1.73_m2} Abnormal >90 [facility] Comment on above: Result Comment: CALC ULATIONS OF ESTIMATED GFR ARE PERFORMED USING THE 2020 CKD-EPI STUDY REFIT EQUATION WITHOUT THE RACE VARIABLE FOR THE IDMS-TRACEABLE CREATININE METHODS.https://jasn.asnjournals.org/content//A SN.9704881299 Performed By: #### B MP ####[id number] [place] [address] Glucose [Mass/Vol] 140 mg/dL High 74 - 99 [facility] Comment on above: Performed By: #### B MP ####[id number] [place] [address] HCO3 (Bld) [Moles/Vol] 26 mmol/L Normal 21 - 32 [facility] Comment on above: Performed By: #### B MP ####[id number] [place] [address] Potassium [Moles/Vol] 3.7 mmol/L Normal 3.5 - 5.3 [facility] Comment on above: Performed By: #### B MP ####[id number] [place] [address] Sodium [Moles/Vol] 139 mmol/L Normal 136 - 145 [facility] Comment on above: Performed By: #### B MP ####[id number] [place] [address] Urea nitrogen [Mass/Vol] 20 mg/dL Normal 6 - 23 [facility] Comment on above: Performed By: #### B MP ####[id number] [place] [address] C-REACTIVE PROTEINon 023 C-REACTIVE PROTEIN 0.88 mg/dL Normal [facility] Comment on above: Result Comment: REF VALUE< 1.00 Performed By: #### C RP ####[id number] [place] [address] CBC AND DIFFERENTIALon 11-25 % AUTOMATED IMMATURE GRAN 0.7 % Normal 0.0 - 0.9 [facility] Comment on above: Result Comment: Sarah ture Granulocyte Count (IG) includes promyelocytes, myelocytes and metamyelocytes but does not include bands. Percent differential counts (%) should be interpreted in the context of the absolute cell counts (cells/L). Performed By: #### C BCDF ####[id number] [place] [address] Basophils (Bld) [#/Vol] 0.04 10*3/uL Normal 0.00 - 0.10 [facility] Comment on above: Performed By: #### C BCDF ####[id number] [place] [address] Basophils/100 WBC (Bld) 0.5 % Normal 0.0 - 2.0 [facility] Comment on above: Performed By: #### C BCDF ####[id number] [place] [address] Eosinophils (Bld) [#/Vol] 0.13 10*3/uL Normal 0.00 - 0.70 [facility] Comment on above: Performed By: #### C BCDF ####[id number] [place] [address] Eosinophils/100 WBC (Bld) 1.5 % Normal 0.0 - 6.0 [facility] Comment on above: Performed By: #### C BCDF ####[id number] [place] [address] Erythrocyte distribution width (RBC) [Ratio] 14.8 % High 11.5 - 14.5 [facility] Comment on above: Performed By: #### C BCDF ####[id number] [place] [address] Hematocrit (Bld) [Volume fraction] 42.7 % Normal 41.0 - 52.0 [facility] Comment on above: Performed By: #### C BCDF ####[id number] [place] [address] Hemoglobin (Bld) [Mass/Vol] 13.7 g/dL Normal 13.5 - 17.5 [facility] Comment on above: Performed By: #### C BCDF ####[id number] [place] [address] Lymphocytes (Bld) [#/Vol] 1.65 10*3/uL Normal 1.20 - 4.80 [facility] Comment on above: Performed By: #### C BCDF ####[id number] [place] [address] Lymphocytes/100 WBC (Bld) 19.3 % Normal 13.0 - 44.0 [facility] Comment on above: Performed By: #### C BCDF ####[id number] [place] [address] MCHC (RBC) [Mass/Vol] 32.1 g/dL Normal 32.0 - 36.0 [facility] Comment on above: Performed By: #### C BCDF ####[id number] [place] [address] MCV (RBC) [Entitic vol] 98 fL Normal 80 - 100 [facility] Comment on above: Performed By: #### C BCDF ####[id number] [place] [address] Monocytes (Bld) [#/Vol] 0.60 10*3/uL Normal 0.10 - 1.00 [facility] Comment on above: Performed By: #### C BCDF ####[id number] [place] [address] Monocytes/100 WBC (Bld) 7.0 % Normal 2.0 - 10.0 [facility] Comment on above: Performed By: #### C BCDF ####[id number] [place] [address] Neutrophils (Bld) [#/Vol] 6.07 10*3/uL Normal 1.20 - 7.70 [facility] Comment on above: Performed By: #### C BCDF ####[id number] [place] [address] Neutrophils/100 WBC (Bld) 71.0 % Normal 40.0 - 80.0 [facility] Comment on above: Performed By: #### C BCDF ####[id number] [place] [address] NUCLEATED RBC 0.0 /100 WBC Normal 0.0-0.0 [facility] Comment on above: Performed By: #### C BCDF ####[id number] [place] [address] Platelets (Bld) [#/Vol] 330 10*3/uL Normal 150 - 450 [facility] Comment on above: Performed By: #### C BCDF ####[id number] [place] [address] RBC 4.36 x10E12/L Low 4.50 - 5.90 [facility] Comment on above: Performed By: #### C BCDF ####[id number] [place] [address] WBC (Bld) [#/Vol] 8.6 10*3/uL Normal 4.4 - 11.3 [facility] Comment on above: Performed By: #### C BCDF ####[id number] [place] [address] Established Visit (Otolaryng ology)on 11-25-2022 Established Visit [...] TABS Vitals Vital Signs Recorded: 25Nov2022 02:39PM Siulxvbwilt67 F, Temporal Heart Rate59 Poucvyeifdw25 Rymxoxyl843 Pepuwqjst10 Height6 ft 1 in Lbtnmd846 lb 8 oz BMI Gcjmzakave22.14 kg/m2 BSA Calculated2.49 Tobacco Useb) No PHQ-2 #1. Over the last 2 weeks have you felt down, depressed or hopeless? (If yes, answer PHQ-9 below)No PHQ-2 #2. Over the last 2 weeks have you felt little interest or pleasure in doing things? (If yes, answer PHQ-9 below)No Falls Screening (Age 18+)a) No falls within the last year O2 Awscxnmytm65, RA Physical Exam nad alert cayden eomi NCAt nasal cavity clear ocop - large defect left maxilla with some crusting, remaining dentition stable, no purulence 'Scores and Scales' Signatures Electronically signed by (more content not included)... Normal [facility] Tobacco Screening.on 023 Adult depression screening assessment No -Infectio [facility] [employer] Phone: Fall risk assessment a) No falls within the last year [facility] [employer] Phone: Tobacco use status CPHS b) No [facility] [employer] Phone: C Reactive Protein, Serumon 11-24-2022 CRP [Mass/Vol] 0.88 mg/dL MG-Infecti o [facility] [employer] Phone: Comment on above: REF VALUE< 1.00 Complete Blood Count + Diffe rentialon 11-24-2022 Basophils/100 WBC (Bld) 0.5 % 0.0 - 2.0 MG-[facility] [employer] Phone: Erythrocyte distribution width (RBC) [Ratio] 14.8 % above high threshold See Below -Infectio [facility] [employer] Work Phone: Comment on above: Reference Range: 11. 5 - 14.5 Hematocrit (Bld) [Volume fraction] 42.7 % See Below -Infectio [facility] [employer] Phone: Comment on above: Reference Range: 41. 0 - 52.0 Hemoglobin (Bld) [Mass/Vol] 13.7 g/dL See Below [facility]io [facility] [employer] Work Phone: [phone] Comment on above: Reference Range: 13. 5 - 17.5 Lymphocytes/100 WBC (Bld) 19.3 % See Below [facility] [employer] Phone: [phone] Comment on above: Reference Range: 13. 0 - 44.0 MCHC (RBC) [Mass/Vol] 32.1 g/dL See Below MG- Infectio [facility] [employer] Phone: [phone] Comment on above: Reference Range: 32. 0 - 36.0 MCV (RBC) [Entitic vol] 98 fL 80 - 100 [facility] [employer] Phone: [phone] Monocytes/100 WBC (Bld) 7.0 % 2.0 - 10.0 MG-Infectio us [facility] [employer] Phone: [phone] Neutrophils/100 WBC (Bld) 71.0 % See Below MG-Infectio us [facility] [employer] Phone: [phone] Comment on above: Reference Range: 40. 0 - 80.0 Platelets (Bld) [#/Vol] 330 10*3/uL 150 - 450 MG-Infectio us [facility] [employer] Phone: [phone] RBC (Bld) [#/Vol] 4.36 {x10E12/L} below low threshold See Below MG-Infectio us [facility] [employer] Phone: [phone] Comment on above: Reference Range: 4.5 0 - 5.90 WBC (Bld) [#/Vol] 8.6 10*3/uL 4.4 - 11.3 MG-Inf ectio us [facility] [employer] Work Phone: [phone] Complete Blood Count + Differential 0.04 {x10E9/L} See Below MG-Infectio us [facility] [employer] Work Phone: Comment on above: Reference Range: 0.0 0 - 0.10 Complete Blood Count + Differential 0.13 {x10E9/L} See Below -Infectio us [facility] [employer] Work Phone: Comment on above: Reference Range: 0.0 0 - 0.70 Complete Blood Count + Differential 0.60 {x10E9/L} See Below MG-[facility]fectio [facility] [employer] Work Phone: Comment on above: Reference Range: 0.1 0 - 1.00 Complete Blood Count + Differential 1.65 {x10E9/L} See Below MG-[facility]fectio [facility] [employer] Work Phone: Comment on above: Reference Range: 1.2 0 - 4.80 Complete Blood Count + Differential 6.07 {x10E9/L} See Below -Infectio us [facility] [employer] Phone: Comment on above: Reference Range: 1.2 0 - 7.70 Complete Blood Count + Differential 1.5 % 0.0 - 6.0 MG-Infectio [facility] [employer] Phone: Complete Blood Count + Differential 0.7 % 0.0 - 0.9 MG-Infectio us [facility] [employer] Phone: Comment on above: Immature Granulocyte Count (IG) includes promyelocytes, myelocytes and metamyelocytes but does not include bands. Percent differential counts (%) should be interpreted in the context of the absolute cell counts (cells/L). Complete Blood Count + Differential 0.0 {/100_WBC} 0.0-0.0 MG[facility]fectio [facility] [employer] Work Phone: Laboratory - Chemistry and C hemistry - challengeon 11-24-2022 Anion gap [Moles/Vol] 17 mmol/L 10 - 20 MG- Infectio us [facility] [employer] Phone: Calcium [Mass/Vol] 9.4 mg/dL 8.6 - 10.6 MG-Inf ectio [facility] [employer] Work Phone: Chloride [Moles/Vol] 100 mmol/L 98 - 107 MG-I nfectio [facility] [employer] Work Phone: CO2 [Moles/Vol] 26 mmol/L 21 - 32 MG-[facility]fect io [facility] [employer] Work Phone: Creatinine [Mass/Vol] 1.52 mg/dL above high threshold See Below MG-Infectio [facility] [employer] Work Phone: Comment on above: Reference Range: 0.5 0 - 1.30 Glucose [Mass/Vol] 140 mg/dL above high threshold 74 - 99 MG-Infectio [facility] [employer] Work Phone: Potassium [Moles/Vol] 3.7 mmol/L 3.5 - 5.3 MG- Infectio [facility] [employer] Work Phone: Sodium [Moles/Vol] 139 mmol/L 136 - 145 MG-Inf ectio [facility] [employer] Work Phone: Urea nitrogen [Mass/Vol] 20 mg/dL 6 - 23 MG-Infectio [facility] [employer] Work Phone: No Panel Informationon 11-24 49 {mL/min/1.73m2} Abnormal >90 MG-Inf ectio [facility] [employer] Work Phone: Comment on above: CALCULATIONS OF REYNALDO MATED GFR ARE PERFORMED USING THE 2020 CKD-EPI STUDY REFIT EQUATION WITHOUT THE RACE VARIABLE FOR THE IDMS-TRACEABLE CREATININE METHODS.https://jasn.asnjournals.org/content//A SN.0885261701 CBCon 11-18-2022 Erythrocyte distribution width (RBC) [Ratio] 14.1 % Normal 11.5 - 14.5 [facility] Comment on above: Performed By: #### C ####[id number] [place] [address] Hematocrit (Bld) [Volume fraction] 38.7 % Low 41.0 - 52.0 [facility] Comment on above: Performed By: #### C BC ####[id number] [place] [address] Hemoglobin (Bld) [Mass/Vol] 13.1 g/dL Low 13.5 - 17.5 [facility] Comment on above: Performed By: #### C BC ####[id number] [place] [address] MCHC (RBC) [Mass/Vol] 33.9 g/dL Normal 32.0 - 36.0 [facility] Comment on above: Performed By: #### C BC ####[id number] [place] [address] MCV (RBC) [Entitic vol] 92 fL Normal 80 - 100 [facility] Comment on above: Performed By: #### C BC ####[id number] [place] [address] NUCLEATED RBC 0.0 /100 WBC Normal 0.0-0.0 [facility] Comment on above: Performed By: #### C BC ####[id number] [place] [address] Platelets (Bld) [#/Vol] 284 10*3/uL Normal 150 - 450 [facility] Comment on above: Performed By: #### C BC ####[id number] [place] [address] RBC 4.20 x10E12/L Low 4.50 - 5.90 [facility] Comment on above: Performed By: #### C BC ####[id number] [place] [address] WBC (Bld) [#/Vol] 8.3 10*3/uL Normal 4.4 - 11.3 [facility] Comment on above: Performed By: #### C BC ####[id number] [place] [address] Clinical Note - Pharmacy v2- Discharge Med Counselingon 11-18-2022 Clinical Note - Pharmacy v2-Discharge Med Counseling Normal [facility] Laboratory - Coagulationon 0 11-18-2022 INR Coag (PPP) [Relative time] 1.1 {INR} 0.9 - 1.1 MG-[facility]fectio [facility] [employer] Phone: PT Coag (PPP) [Time] 12.5 s 9.8 - 13.4 MG-I nfectio us [facility] [employer] Work Phone: Laboratory - Hematology and Cell countson 11-18-2022 Erythrocyte distribution width (RBC) [Ratio] 14.1 % See Below MG-Infectio us [facility]PRE[facility] [employer] Work Phone: Comment on above: Reference Range: 11. 5 - 14.5 Hematocrit (Bld) [Volume fraction] 38.7 % below low threshold See Below MG-Infectio us [facility] [employer] Phone: Comment on above: Reference Range: 41. 0 - 52.0 Hemoglobin (Bld) [Mass/Vol] 13.1 g/dL below low threshold See Below MG-Infectio us [facility] [employer] Phone: Comment on above: Reference Range: 13. 5 - 17.5 MCHC (RBC) [Mass/Vol] 33.9 g/dL See Below MG- Infectio us [facility] [employer] Phone: Comment on above: Reference Range: 32. 0 - 36.0 MCV (RBC) [Entitic vol] 92 fL 80 - 100 MG-Infectio us [facility] [employer] Work Phone: Platelets (Bld) [#/Vol] 284 10*3/uL 150 - 450 MG-Infectio us [facility] [employer] Work Phone: RBC (Bld) [#/Vol] 4.20 {x10E12/L} below low threshold See Below MG-Infectio us [facility] [employer] Phone: Comment on above: Reference Range: 4.5 0 - 5.90 WBC (Bld) [#/Vol] 8.3 10*3/uL 4.4 - 11.3 MG-Inf ectio us Disease-[facility] [employer] Work Phone: MAGNESIUMon 11-18-2022 Magnesium [Mass/Vol] 2.13 mg/dL Normal 1.60 - 2.40 [facility] Comment on above: Performed By: #### M G ####[id number] [place] [address] Magnesium, Serumon 3 Magnesium [Mass/Vol] 2.13 mg/dL See Below MG-I nfectio us Disease-[facility] [employer] Work Phone: Comment on above: Reference Range: 1.6 0 - 2.40 No Panel Informationon 11-18 0.0 {/100_WBC} 0.0-0.0 MG-Infecti o us Disease-[facility] [employer] Work Phone: PT/INRon 11-18-2022 PT Coag (PPP) [Time] 12.5 s Normal 9.8 - 13.4 [facility] Comment on above: Performed By: #### P TINR ####[id number] [place] [address] PT, INR 1.1 Normal 0.9 - 1.1 [facility] Comment on above: Performed By: #### P TINR ####[id number] [place] [address] RENAL FUNCTION PANELon 11-18 Albumin [Mass/Vol] 3.6 g/dL Normal 3.4 - 5.0 [facility] Comment on above: Performed By: #### R ENAL ####[id number] [place] [address] Anion gap [Moles/Vol] 13 mmol/L Normal 10 - 20 [facility] Comment on above: Performed By: #### R ENAL ####[id number] [place] [address] Calcium [Mass/Vol] 9.1 mg/dL Normal 8.6 - 10.6 [facility] Comment on above: Performed By: #### R ENAL ####[id number] [place] [address] Chloride [Moles/Vol] 102 mmol/L Normal 98 - 107 [facility] Comment on above: Performed By: #### R ENAL ####[id number] [place] [address] Creatinine [Mass/Vol] 1.15 mg/dL Normal 0.50 - 1.30 [facility] Comment on above: Performed By: #### R ENAL ####[id number] [place] [address] GFR/1.73 sq M.predicted among non-blacks MDRD (S/P/Bld) [Vol rate/Area] 68 mL/min/{1.73_m2} Normal >90 [facility] Comment on above: Result Comment: CALC ULATIONS OF ESTIMATED GFR ARE PERFORMED USING THE 2020 CKD-EPI STUDY REFIT EQUATION WITHOUT THE RACE VARIABLE FOR THE IDMS-TRACEABLE CREATININE METHODS.https://jasn.asnjournals.org/content//A SN.1314480735 Performed By: #### R ENAL ####[id number] [place] [address] Glucose [Mass/Vol] 143 mg/dL High 74 - 99 [facility] Comment on above: Performed By: #### R ENAL ####[id number] [place] [address] HCO3 (Bld) [Moles/Vol] 26 mmol/L Normal 21 - 32 [facility] Comment on above: Performed By: #### R ENAL ####[id number] [place] [address] Phosphate [Mass/Vol] 3.0 mg/dL Normal 2.5 - 4.9 [facility] Comment on above: Result Comment: The performance characteristics of phosphorus testing in heparinized plasma have been validated by the individual laboratory site where testing is performed. Testing on heparinized plasma is not approved by the FDA; however, such approval is not necessary. Performed By: #### R ENAL ####[id number] [place] [address] Potassium [Moles/Vol] 4.3 mmol/L Normal 3.5 - 5.3 [facility] Comment on above: Performed By: #### R ENAL ####[id number] [place] [address] Sodium [Moles/Vol] 137 mmol/L Normal 136 - 145 [facility] Comment on above: Performed By: #### R ENAL ####[id number] [place] [address] Urea nitrogen [Mass/Vol] 16 mg/dL Normal 6 - 23 [facility] Comment on above: Performed By: #### R ENAL ####[id number] [place] [address] Renal Function Panelon 11-18 Albumin BCP dye [Mass/Vol] 3.6 g/dL 3.4 - 5.0 MG-Infectio us [facility]PRE[facility] [employer] Work Phone: Anion gap [Moles/Vol] 13 mmol/L 10 - 20 MG- Infectio us [facility] [employer] Work Phone: Calcium [Mass/Vol] 9.1 mg/dL 8.6 - 10.6 MG-Inf ectio us [facility] [employer] Work Phone: Chloride [Moles/Vol] 102 mmol/L 98 - 107 MG-I nfectio us [facility]PRE[facility] [employer] Work Phone: CO2 [Moles/Vol] 26 mmol/L 21 - 32 MG-Infect io us [facility] [employer] Work Phone: Creatinine [Mass/Vol] 1.15 mg/dL See Below MG- Infectio us [facility]PRE[facility] [employer] Work Phone: Comment on above: Reference Range: 0.5 0 - 1.30 Glucose [Mass/Vol] 143 mg/dL above high threshold 74 - 99 MG-Infectio us [facility] [employer] Work Phone: Phosphate [Mass/Vol] 3.0 mg/dL 2.5 - 4.9 MG-I nfectio [facility] [employer] Work Phone: Comment on above: The performance violet acteristics of phosphorus testing in heparinized plasma have been validated by the individual laboratory site where testing is performed. Testing on heparinized plasma is not approved by the FDA; however, such approval is not necessary. Potassium [Moles/Vol] 4.3 mmol/L 3.5 - 5.3 MG- Infectio us Disease-[facility] [employer] Work Phone: Sodium [Moles/Vol] 137 mmol/L 136 - 145 MG-Inf ectio [facility] [employer] Work Phone: Urea nitrogen [Mass/Vol] 16 mg/dL 6 - 23 MG-Infectio [facility] [employer] Work Phone: Renal Function Panel 68 {mL/min/1.73m2} >90 MG-Infectio us [facility] [employer] Work Phone: Comment on above: CALCULATIONS OF REYNALDO MATED GFR ARE PERFORMED USING THE 2020 CKD-EPI STUDY REFIT EQUATION WITHOUT THE RACE VARIABLE FOR THE IDMS-TRACEABLE CREATININE METHODS.https://jasn.asnjournals.org/content//A SN.2176953843 Daily Progress Note-ENTon Daily Progress Note-ENT Normal [facility] Daily Progress Note-ENT Normal [facility] Daily Progress Note-Infectio us Diseaseon 11-17-2022 Daily Progress Note-Infectious Disease Normal [facility] Discharge [id number] [id number] Discharge Profile2 Normal [facility] GLUCOSE-POCTon 11-17-2022 Glucose [Mass/Vol] 181 mg/dL High 74 - 99 [facility] Comment on above: Performed By: #### G SUSAN ####[id number] [place] [address] Glucose [Mass/Vol] 145 mg/dL High 74 - 99 [facility] Comment on above: Performed By: #### G SUSAN ####[id number] [place] [address] Glucose [Mass/Vol] 102 mg/dL High 74 - 99 [facility] Comment on above: Performed By: #### G SUSAN ####[id number] [place] [address] Laboratory - Chemistry and C hemistry - challengeon 11-17-2022 Glucose [Mass/Vol] 181 mg/dL above high threshold 74 - 99 MG-Infectio us Disease-[facility] [employer] Work Phone: Glucose [Mass/Vol] 145 mg/dL above high threshold 74 - 99 [facility] 4100 Work Phone: Laboratory - Coagulationon 0 11-17-2022 INR Coag (PPP) [Relative time] 1.1 {INR} 0.9 - 1.1 MG-Otolaryn [facility] 4100 Work Phone: PT Coag (PPP) [Time] 12.6 s 9.8 - 13.4 MG-O tolaryn [facility] 4100 Work Phone: Order Reconciliationon 11-17 Order Reconciliation Normal [facility] PT/INRon 11-17-2022 PT Coag (PPP) [Time] 12.6 s Normal 9.8 - 13.4 [facility] Comment on above: Performed By: #### P TINR ####[id number] [place] [address] PT, INR 1.1 Normal 0.9 - 1.1 [facility] Comment on above: Performed By: #### P TINR ####[id number] [place] [address] CBCon 11-16-2022 Erythrocyte distribution width (RBC) [Ratio] 14.3 % Normal 11.5 - 14.5 [facility] Comment on above: Performed By: #### C BC ####[id number] [place] [address] Hematocrit (Bld) [Volume fraction] 40.6 % Low 41.0 - 52.0 [facility] Comment on above: Performed By: #### C BC ####[id number] [place] [address] Hemoglobin (Bld) [Mass/Vol] 13.5 g/dL Normal 13.5 - 17.5 [facility] Comment on above: Performed By: #### C BC ####[id number] [place] [address] MCHC (RBC) [Mass/Vol] 33.3 g/dL Normal 32.0 - 36.0 [facility] Comment on above: Performed By: #### C BC ####[id number] [place] [address] MCV (RBC) [Entitic vol] 92 fL Normal 80 - 100 [facility] Comment on above: Performed By: #### C BC ####[id number] [place] [address] NUCLEATED RBC 0.0 /100 WBC Normal 0.0-0.0 [facility] Comment on above: Performed By: #### C BC ####[id number] [place] [address] Platelets (Bld) [#/Vol] 263 10*3/uL Normal 150 - 450 [facility] Comment on above: Performed By: #### C BC ####[id number] [place] [address] RBC 4.40 x10E12/L Low 4.50 - 5.90 [facility] Comment on above: Performed By: #### C BC ####[id number] [place] [address] WBC (Bld) [#/Vol] 9.2 10*3/uL Normal 4.4 - 11.3 [facility] Comment on above: Performed By: #### C BC ####[id number] [place] [address] Daily Progress Note-ENTon Daily Progress Note-ENT Normal [facility] Daily Progress Note-Infectio us Diseaseon 11-16-2022 Daily Progress Note-Infectious Disease Normal [facility] GLUCOSE-POCTon 11-16-2022 Glucose [Mass/Vol] 143 mg/dL High 74 - 99 [facility] Comment on above: Performed By: #### G SUSAN ####[id number] [place] [address] Glucose [Mass/Vol] 159 mg/dL High 74 - 99 [facility] Comment on above: Performed By: #### G SUSAN ####[id number] [place] [address] Laboratory - Chemistry and C hemistry - challengeon 11-16-2022 Glucose [Mass/Vol] 102 mg/dL above high threshold 74 - 99 MG-Otolaryn gology-[place] [address] Work Phone: Glucose [Mass/Vol] 143 mg/dL above high threshold 74 - 99 MG-Otolaryn gology-[place] 143780 Work Phone: Glucose [Mass/Vol] 159 mg/dL above high threshold 74 - 99 MG-Otolaryn gology-[place] [address] Work Phone: Laboratory - Coagulationon 0 11-16-2022 INR Coag (PPP) [Relative time] 1.1 {INR} 0.9 - 1.1 MG-Otolaryn gology-[place] [address] Work Phone: PT Coag (PPP) [Time] 12.4 s 9.8 - 13.4 MG-O tolaryn gology-[place] 143780 Work Phone: Laboratory - Hematology and Cell countson 11-16-2022 Erythrocyte distribution width (RBC) [Ratio] 14.3 % See Below MG-Otolaryn gology-[place] [address] Work Phone: Comment on above: Reference Range: 11. 5 - 14.5 Hematocrit (Bld) [Volume fraction] 40.6 % below low threshold See Below [facility] 410 Work Phone: Comment on above: Reference Range: 41. 0 - 52.0 Hemoglobin (Bld) [Mass/Vol] 13.5 g/dL See Below [facility] 410 Work Phone: Comment on above: Reference Range: 13. 5 - 17.5 MCHC (RBC) [Mass/Vol] 33.3 g/dL See Below MG [facility] 4100 Work Phone: Comment on above: Reference Range: 32. 0 - 36.0 MCV (RBC) [Entitic vol] 92 fL 80 - 100 [facility]DO[facility]ogy[facility] 410 Work Phone: Platelets (Bld) [#/Vol] 263 10*3/uL 150 - 450 -[facility] 4100 Work Phone: RBC (Bld) [#/Vol] 4.40 {x10E12/L} below low threshold See Below [facility] 4100 Work Phone: Comment on above: Reference Range: 4.5 0 - 5.90 WBC (Bld) [#/Vol] 9.2 10*3/uL 4.4 - 11.3 [facility] [facility] 4100 Work Phone: MAGNESIUMon 11-16-2022 Magnesium [Mass/Vol] 2.38 mg/dL Normal 1.60 - 2.40 [facility] Comment on above: Performed By: #### M G ####[id number] [place] [address] Magnesium, Serumon Magnesium [Mass/Vol] 2.38 mg/dL See Below [facility] 4100 Work Phone: Comment on above: Reference Range: 1.6 0 - 2.40 No Panel Informationon 11-16 0.0 {/100_WBC} 0.0-0.0 MG-Otolary n [facility] 4100 Work Phone: PT Evaluation v2-physical th erapyon 11-16-2022 PT Evaluation v2-physical therapy Normal [facility] PT/INRon 11-16-2022 PT Coag (PPP) [Time] 12.4 s Normal 9.8 - 13.4 [facility] Comment on above: Performed By: #### P TINR ####[id number] [place] [address] PT, INR 1.1 Normal 0.9 - 1.1 [facility] Comment on above: Performed By: #### P TINR ####[id number] [place] [address] RENAL FUNCTION PANELon 11-16 Albumin [Mass/Vol] 3.6 g/dL Normal 3.4 - 5.0 [facility] Comment on above: Performed By: #### R ENAL ####[id number] [place] [address] Anion gap [Moles/Vol] 14 mmol/L Normal 10 - 20 [facility] Comment on above: Performed By: #### R ENAL ####[id number] [place] [address] Calcium [Mass/Vol] 8.8 mg/dL Normal 8.6 - 10.6 [facility] Comment on above: Performed By: #### R ENAL ####[id number] [place] [address] Chloride [Moles/Vol] 104 mmol/L Normal 98 - 107 [facility] Comment on above: Performed By: #### R ENAL ####[id number] [place] [address] Creatinine [Mass/Vol] 1.20 mg/dL Normal 0.50 - 1.30 [facility] Comment on above: Performed By: #### R ENAL ####[id number] [place] [address] GFR/1.73 sq M.predicted among non-blacks MDRD (S/P/Bld) [Vol rate/Area] 65 mL/min/{1.73_m2} Normal >90 [facility] Comment on above: Result Comment: CALC ULATIONS OF ESTIMATED GFR ARE PERFORMED USING THE 2020 CKD-EPI STUDY REFIT EQUATION WITHOUT THE RACE VARIABLE FOR THE IDMS-TRACEABLE CREATININE METHODS.https://jasn.asnjournals.org/content/early/A SN.7767528278 Performed By: #### R ENAL ####[id number] [place] [address] Glucose [Mass/Vol] 122 mg/dL High 74 - 99 [facility] Comment on above: Performed By: #### R ENAL ####[id number] [place] [address] HCO3 (Bld) [Moles/Vol] 24 mmol/L Normal 21 - 32 [facility] Comment on above: Performed By: #### R ENAL ####[id number] [place] [address] Phosphate [Mass/Vol] 2.7 mg/dL Normal 2.5 - 4.9 [facility] Comment on above: Result Comment: The performance characteristics of phosphorus testing in heparinized plasma have been validated by the individual laboratory site where testing is performed. Testing on heparinized plasma is not approved by the FDA; however, such approval is not necessary. Performed By: #### R ENAL ####[id number] [place] [address] Potassium [Moles/Vol] 4.6 mmol/L Normal 3.5 - 5.3 [facility] Comment on above: Performed By: #### R ENAL ####[id number] [place] [address] Sodium [Moles/Vol] 137 mmol/L Normal 136 - 145 [facility] Comment on above: Performed By: #### R ENAL ####[id number] [place] [address] Urea nitrogen [Mass/Vol] 21 mg/dL Normal 6 - 23 [facility] Comment on above: Performed By: #### R ENAL ####[id number] [place] [address] Renal Function Panelon 11-16 Albumin BCP dye [Mass/Vol] 3.6 g/dL 3.4 - 5.0 MG-Otolaryn gology-[facility] 4100 Work Phone: Anion gap [Moles/Vol] 14 mmol/L 10 - 20 MG- Otolaryn gology-[facility] 4100 Work Phone: [phone] Calcium [Mass/Vol] 8.8 mg/dL 8.6 - 10.6 MG-Mao laryn gology-[facility] 4100 Work Phone: [phone] Chloride [Moles/Vol] 104 mmol/L 98 - 107 MG-O tolaryn gology-[facility] 4100 Work Phone: [phone] CO2 [Moles/Vol] 24 mmol/L 21 - 32 MG-Otolar yn gology-[facility] 4100 Work Phone: [phone] Creatinine [Mass/Vol] 1.20 mg/dL See Below MG- Otolaryn gology-[facility] 4100 Work Phone: [phone] Comment on above: Reference Range: 0.5 0 - 1.30 Glucose [Mass/Vol] 122 mg/dL above high threshold 74 - 99 MG-Otolaryn gology-[facility] 4100 Work Phone: Phosphate [Mass/Vol] 2.7 mg/dL 2.5 - 4.9 MG-O tolaryn gology-[facility] 4100 Work Phone: Comment on above: The performance violet acteristics of phosphorus testing in heparinized plasma have been validated by the individual laboratory site where testing is performed. Testing on heparinized plasma is not approved by the FDA; however, such approval is not necessary. Potassium [Moles/Vol] 4.6 mmol/L 3.5 - 5.3 MG- Otolaryn [facility] 4100 Work Phone: [phone] Sodium [Moles/Vol] 137 mmol/L 136 - 145 MG-[place] laryn [facility] 4100 Work Phone: [phone] Urea nitrogen [Mass/Vol] 21 mg/dL 6 - 23 MG-[facility] 4100 Work Phone: [phone] Renal Function Panel 65 {mL/min/1.73m2} >90 MG-[facility] 4100 Work Phone: Comment on above: CALCULATIONS OF REYNALDO MATED GFR ARE PERFORMED USING THE 2020 CKD-EPI STUDY REFIT EQUATION WITHOUT THE RACE VARIABLE FOR THE IDMS-TRACEABLE CREATININE METHODS.https://jasn.asnjournals.org/content//A SN.9218012732 CBCon 11-15-2022 Erythrocyte distribution width (RBC) [Ratio] 14.6 % High 11.5 - 14.5 [facility] Comment on above: Performed By: #### C BC ####[id number] [place] [address] Hematocrit (Bld) [Volume fraction] 38.3 % Low 41.0 - 52.0 [facility] Comment on above: Performed By: #### C BC ####[id number] [place] [address] Hemoglobin (Bld) [Mass/Vol] 12.7 g/dL Low 13.5 - 17.5 [facility] Comment on above: Performed By: #### C BC ####[id number] [place] [address] MCHC (RBC) [Mass/Vol] 33.2 g/dL Normal 32.0 - 36.0 [facility] Comment on above: Performed By: #### C BC ####[id number] [place] [address] MCV (RBC) [Entitic vol] 94 fL Normal 80 - 100 [facility] Comment on above: Performed By: #### C BC ####[id number] [place] [address] NUCLEATED RBC 0.0 /100 WBC Normal 0.0-0.0 [facility] Comment on above: Performed By: #### C BC ####[id number] [place] [address] Platelets (Bld) [#/Vol] 244 10*3/uL Normal 150 - 450 [facility] Comment on above: Performed By: #### C BC ####[id number] [place] [address] RBC 4.06 x10E12/L Low 4.50 - 5.90 [facility] Comment on above: Performed By: #### C BC ####[id number] [place] [address] WBC (Bld) [#/Vol] 8.2 10*3/uL Normal 4.4 - 11.3 [facility] Comment on above: Performed By: #### C BC ####[id number] [place] [address] Daily Progress Note-ENTon Daily Progress Note-ENT Normal [facility] GLUCOSE-POCTon 11-15-2022 Glucose [Mass/Vol] 257 mg/dL High 74 - 99 [facility] Comment on above: Performed By: #### G SUSAN ####[id number] [place] [address] Glucose [Mass/Vol] 121 mg/dL High 74 - 99 [facility] Comment on above: Performed By: #### G SUSAN ####[id number] [place] [address] Glucose [Mass/Vol] 96 mg/dL Normal 74 - 99 [facility] Comment on above: Performed By: #### G SUSAN ####[id number] [place] [address] Laboratory - Chemistry and C hemistry - challengeon 11-15-2022 Glucose [Mass/Vol] 257 mg/dL above high threshold 74 - 99 MG-Otolaryn gology-[place] 143780 Work Phone: [phone] Glucose [Mass/Vol] 121 mg/dL above high threshold 74 - 99 MG-Otolaryn gology-[facility] 4100 Work Phone: [phone] Glucose [Mass/Vol] 96 mg/dL 74 - 99 MG-[place] l[place] gology-[place] 143780 Work Phone: [phone] Laboratory - Hematology and Cell countson 11-15-2022 Erythrocyte distribution width (RBC) [Ratio] 14.6 % above high threshold See Below MG-Otolaryn gology-[place] [address] Work Phone: [phone] Comment on above: Reference Range: 11. 5 - 14.5 Hematocrit (Bld) [Volume fraction] 38.3 % below low threshold See Below [place] [address] Work Phone: [phone] Comment on above: Reference Range: 41. 0 - 52.0 Hemoglobin (Bld) [Mass/Vol] 12.7 g/dL below low threshold See Below MG-Otolaryn gology-[place] [address] Work Phone: Comment on above: Reference Range: 13. 5 - 17.5 MCHC (RBC) [Mass/Vol] 33.2 g/dL See Below MG- Otolaryn gology-[place] [address] Work Phone: Comment on above: Reference Range: 32. 0 - 36.0 MCV (RBC) [Entitic vol] 94 fL 80 - 100 MG-Otolaryn gology-[place] [address] Work Phone: [phone] Platelets (Bld) [#/Vol] 244 10*3/uL 150 - 450 [facility] 4100 Work Phone: RBC (Bld) [#/Vol] 4.06 {x10E12/L} below low threshold See Below [facility] 4100 Work Phone: Comment on above: Reference Range: 4.5 0 - 5.90 WBC (Bld) [#/Vol] 8.2 10*3/uL 4.4 - 11.3 [facility] [facility] 4100 Work Phone: MAGNESIUMon 11-15-2022 Magnesium [Mass/Vol] 2.31 mg/dL Normal 1.60 - 2.40 [facility] Comment on above: Performed By: #### M G ####[id number] [place] [address] Magnesium, Serumon 3 Magnesium [Mass/Vol] 2.31 mg/dL See Below MG-O ariannan [facility] 4100 Work Phone: Comment on above: Reference Range: 1.6 0 - 2.40 No Panel Informationon 11-15 0.0 {/100_WBC} 0.0-0.0 MG-[facility]tolary n [facility] 4100 Work Phone: RENAL FUNCTION PANELon 11-15 Albumin [Mass/Vol] 3.2 g/dL Low 3.4 - 5.0 [facility] Comment on above: Performed By: #### R ENAL ####[id number] [place] [address] Anion gap [Moles/Vol] 13 mmol/L Normal 10 - 20 [facility] Comment on above: Performed By: #### R ENAL ####[id number] [place] [address] Calcium [Mass/Vol] 8.3 mg/dL Low 8.6 - 10.6 [facility] Comment on above: Performed By: #### R ENAL ####[id number] [place] [address] Chloride [Moles/Vol] 106 mmol/L Normal 98 - 107 [facility] Comment on above: Performed By: #### R ENAL ####[id number] [place] [address] Creatinine [Mass/Vol] 1.26 mg/dL Normal 0.50 - 1.30 [facility] Comment on above: Performed By: #### R ENAL ####[id number] [place] [address] GFR/1.73 sq M.predicted among non-blacks MDRD (S/P/Bld) [Vol rate/Area] 61 mL/min/{1.73_m2} Normal >90 [facility] Comment on above: Result Comment: CALC ULATIONS OF ESTIMATED GFR ARE PERFORMED USING THE 2020 CKD-EPI STUDY REFIT EQUATION WITHOUT THE RACE VARIABLE FOR THE IDMS-TRACEABLE CREATININE METHODS.https://jasn.asnjournals.org/content/early//A SN.6117685021 Performed By: #### R ENAL ####[id number] [place] [address] Glucose [Mass/Vol] 128 mg/dL High 74 - 99 [facility] Comment on above: Performed By: #### R ENAL ####[id number] [place] [address] HCO3 (Bld) [Moles/Vol] 24 mmol/L Normal 21 - 32 [facility] Comment on above: Performed By: #### R ENAL ####[id number] [place] [address] Phosphate [Mass/Vol] 2.7 mg/dL Normal 2.5 - 4.9 [facility] Comment on above: Result Comment: The performance characteristics of phosphorus testing in heparinized plasma have been validated by the individual laboratory site where testing is performed. Testing on heparinized plasma is not approved by the FDA; however, such approval is not necessary. Performed By: #### R ENAL ####[id number] [place] [address] Potassium [Moles/Vol] 4.1 mmol/L Normal 3.5 - 5.3 [facility] Comment on above: Performed By: #### R ENAL ####[id number] [place] [address] Sodium [Moles/Vol] 139 mmol/L Normal 136 - 145 [facility] Comment on above: Performed By: #### R ENAL ####[id number] [place] [address] Urea nitrogen [Mass/Vol] 24 mg/dL High 6 - 23 [facility] Comment on above: Performed By: #### R ENAL ####[id number] [place] [address] Renal Function Panelon 11-15 Albumin BCP dye [Mass/Vol] 3.2 g/dL below low threshold 3.4 - 5.0 MG-Otolaryn gology-[place] 143780 Work Phone: [phone] Anion gap [Moles/Vol] 13 mmol/L 10 - 20 MG- Otolaryn gology-[facility] 4100 Work Phone: [phone] Calcium [Mass/Vol] 8.3 mg/dL below low threshold 8.6 - 10.6 MG-Otolaryn gology-[facility] 4100 Work Phone: [phone] Chloride [Moles/Vol] 106 mmol/L 98 - 107 MG-O tolaryn gology-[facility] 4100 Work Phone: [phone] CO2 [Moles/Vol] 24 mmol/L 21 - 32 MG-Otolar yn gology-[facility] 4100 Work Phone: [phone] Creatinine [Mass/Vol] 1.26 mg/dL See Below MG- Otolaryn gology-[facility] 4100 Work Phone: [phone] Comment on above: Reference Range: 0.5 0 - 1.30 Glucose [Mass/Vol] 128 mg/dL above high threshold 74 - 99 MG-Otolaryn gology-[facility] 4100 Work Phone: Phosphate [Mass/Vol] 2.7 mg/dL 2.5 - 4.9 [facility] 4100 Work Phone: Comment on above: The performance violet acteristics of phosphorus testing in heparinized plasma have been validated by the individual laboratory site where testing is performed. Testing on heparinized plasma is not approved by the FDA; however, such approval is not necessary. Potassium [Moles/Vol] 4.1 mmol/L 3.5 - 5.3 [facility] Work Phone: Sodium [Moles/Vol] 139 mmol/L 136 - 145 MG-[place] laryn [facility] 4100 Work Phone: Urea nitrogen [Mass/Vol] 24 mg/dL above high threshold 6 - 23 [facility] 4100 Work Phone: Renal Function Panel 61 {mL/min/1.73m2} >90 [facility] 4100 Work Phone: Comment on above: CALCULATIONS OF REYNALDO MATED GFR ARE PERFORMED USING THE 2020 CKD-EPI STUDY REFIT EQUATION WITHOUT THE RACE VARIABLE FOR THE IDMS-TRACEABLE CREATININE METHODS.https://jasn.asnjournals.org/content/early//A SN.8356236317 CBCon 11-14-2022 HCT Canceled Normal [facility] Comment on above: Order Comment: TEST CBC WAS CANCELLED, 11/14/2022 09:56 NO SPECIMEN RECEIVED IN LAB. Performed By: #### C BC ####[id number] [place] [address] HGB Canceled Normal [facility] Comment on above: Order Comment: TEST CBC WAS CANCELLED, 11/14/2022 09:56 NO SPECIMEN RECEIVED IN LAB. Performed By: #### C BC ####[id number] [place] [address] MCHC Canceled Normal [facility] Comment on above: Order Comment: TEST CBC WAS CANCELLED, 11/14/2022 09:56 NO SPECIMEN RECEIVED IN LAB. Performed By: #### C BC ####[id number] [place] [address] MCV Canceled Normal [facility] Comment on above: Order Comment: TEST CBC WAS CANCELLED, 11/14/2022 09:56 NO SPECIMEN RECEIVED IN LAB. Performed By: #### C BC ####[id number] [place] [address] NUCLEATED RBC Canceled Normal [facility] Comment on above: Order Comment: TEST CBC WAS CANCELLED, 11/14/2022 09:56 NO SPECIMEN RECEIVED IN LAB. Performed By: #### C BC ####[id number] [place] [address] PLT Canceled Normal [facility] Comment on above: Order Comment: TEST CBC WAS CANCELLED, 11/14/2022 09:56 NO SPECIMEN RECEIVED IN LAB. Performed By: #### C BC ####[id number] [place] [address] RBC Canceled Normal [facility] Comment on above: Order Comment: TEST CBC WAS CANCELLED, 11/14/2022 09:56 NO SPECIMEN RECEIVED IN LAB. Performed By: #### C BC ####[id number] [place] [address] RDW-CV Canceled Normal [facility] Comment on above: Order Comment: TEST CBC WAS CANCELLED, 11/14/2022 09:56 NO SPECIMEN RECEIVED IN LAB. Performed By: #### C BC ####[id number] [place] [address] WBC Canceled Normal [facility] Comment on above: Order Comment: TEST CBC WAS CANCELLED, 11/14/2022 09:56 NO SPECIMEN RECEIVED IN LAB. Performed By: #### C BC ####[id number] [place] [address] Erythrocyte distribution width (RBC) [Ratio] 14.6 % High 11.5 - 14.5 [facility] Comment on above: Performed By: #### C BC ####[id number] [place] [address] Hematocrit (Bld) [Volume fraction] 43.0 % Normal 41.0 - 52.0 [facility] Comment on above: Performed By: #### C BC ####[id number] [place] [address] Hemoglobin (Bld) [Mass/Vol] 13.7 g/dL Normal 13.5 - 17.5 [facility] Comment on above: Performed By: #### C BC ####[id number] [place] [address] MCHC (RBC) [Mass/Vol] 31.9 g/dL Low 32.0 - 36.0 [facility] Comment on above: Performed By: #### C BC ####[id number] [place] [address] MCV (RBC) [Entitic vol] 97 fL Normal 80 - 100 [facility] Comment on above: Performed By: #### C BC ####[id number] [place] [address] NUCLEATED RBC 0.0 /100 WBC Normal 0.0-0.0 [facility] Comment on above: Performed By: #### C BC ####[id number] [place] [address] Platelets (Bld) [#/Vol] 300 10*3/uL Normal 150 - 450 [facility] Comment on above: Performed By: #### C BC ####[id number] [place] [address] RBC 4.43 x10E12/L Low 4.50 - 5.90 [facility] Comment on above: Performed By: #### C BC ####[id number] [place] [address] WBC (Bld) [#/Vol] 12.6 10*3/uL High 4.4 - 11.3 [facility] Comment on above: Performed By: #### C BC ####[id number] [place] [address] COAGULATION SCREENon 023 aPTT Coag (Bld) [Time] 29 s Normal 26 - 39 [facility] Comment on above: Result Comment: THE APTT IS NO LONGER USED FOR MONITORING UNFRACTIONATED HEPARIN THERAPY. FOR MONITORING HEPARIN THERAPY, USE THE HEPARIN ASSAY. Performed By: #### C OAGS ####[id number] [place] [address] PT Coag (PPP) [Time] 12.8 s Normal 9.8 - 13.4 [facility] Comment on above: Performed By: #### C OAGS ####[id number] [place] [address] PT, INR 1.1 Normal 0.9 - 1.1 [facility] Comment on above: Performed By: #### C OAGS ####[id number] [place] [address] Daily Progress Note-ENTon Daily Progress Note-ENT Normal [facility] Daily Progress Note-Infectio us Diseaseon 11-14-2022 Daily Progress Note-Infectious Disease Normal [facility] Daily Progress Note-Vascular Medicineon 11-14-2022 Daily Progress Note-Vascular Medicine Normal [facility] GLUCOSE-POCTon 11-14-2022 Glucose [Mass/Vol] 198 mg/dL High 74 - 99 [facility] Comment on above: Performed By: #### G SUSAN ####[id number] [place] [address] Glucose [Mass/Vol] 134 mg/dL High 74 - 99 [facility] Comment on above: Performed By: #### G SUSAN ####[id number] [place] [address] Glucose [Mass/Vol] 140 mg/dL High 74 - 99 [facility] Comment on above: Performed By: #### G SUSAN ####[id number] [place] [address] Glucose [Mass/Vol] 127 mg/dL High 74 - 99 [facility] Comment on above: Performed By: #### G SUSAN ####[id number] [address] INSERTION OF GASTROSTOMY TUB E PERCUTANEOUS UNDER FLUOROSCOPICon 11-14-2022 INSERTION OF GASTROSTOMY TUBE PERCUTANEOUS UNDER FLUOROSCOPIC Normal [facility] Insertion of Gastrostomy Tub e Percutaneous Under Fluoroscopicon 11-14-2022 RF Guidance for placement of tube in Stomach Normal MG-Otolaryn [facility]ology-[place] [address] Work Phone: Laboratory - Chemistry and C hemistry - challengeon 11-14-2022 Glucose [Mass/Vol] 198 mg/dL above high threshold 74 - 99 [facility]tolaryn [facility] [address] Work Phone: Glucose [Mass/Vol] 134 mg/dL above high threshold 74 - 99 MG-Otolaryn gology-[place] [place] 995930 Work Phone: Glucose [Mass/Vol] 140 mg/dL above high threshold 74 - 99 MG-Otolaryn gology-[facility] 4100 Work Phone: Glucose [Mass/Vol] 127 mg/dL above high threshold 74 - 99 MG-Otolaryn gology-[facility] 4100 Work Phone: Laboratory - Coagulationon 0 11-14-2022 aPTT Coag (PPP) [Time] 29 s 26 - 39 MG -Otolaryn [facility]ology-[facility] 4100 Work Phone: Comment on above: THE APTT IS NO LONGE R USED FOR MONITORING UNFRACTIONATED HEPARIN THERAPY. FOR MONITORING HEPARIN THERAPY, USE THE HEPARIN ASSAY. INR Coag (PPP) [Relative time] 1.1 {INR} 0.9 - 1.1 MG-Otolaryn [facility]ology-[place] [address] Work Phone: PT Coag (PPP) [Time] 12.8 s 9.8 - 13.4 Gilberto william [place] [address] Work Phone: Laboratory - Hematology and Cell countson 11-14-2022 Erythrocyte distribution width (RBC) [Ratio] 14.6 % above high threshold See Below [facility] [place] [address] Work Phone: Comment on above: Reference Range: 11. 5 - 14.5 Hematocrit (Bld) [Volume fraction] 43.0 % See Below [facility] [place] [address] Work Phone: Comment on above: Reference Range: 41. 0 - 52.0 Hemoglobin (Bld) [Mass/Vol] 13.7 g/dL See Below [facility] [place] [address] Work Phone: Comment on above: Reference Range: 13. 5 - 17.5 MCHC (RBC) [Mass/Vol] 31.9 g/dL below low threshold See Below [facility] [place] [address] Work Phone: Comment on above: Reference Range: 32. 0 - 36.0 MCV (RBC) [Entitic vol] 97 fL 80 - 100 [place] [address] Work Phone: [phone] Platelets (Bld) [#/Vol] 300 10*3/uL 150 - 450 [facility] [place] [address] Work Phone: [phone] RBC (Bld) [#/Vol] 4.43 {x10E12/L} below low threshold See Below [facility] [place] [address] Work Phone: Comment on above: Reference Range: 4.5 0 - 5.90 WBC (Bld) [#/Vol] 12.6 10*3/uL above high threshold 4.4 - 11.3 [facility] [place] [address] Work Phone: MAGNESIUMon 11-14-2022 Magnesium [Mass/Vol] 2.56 mg/dL High 1.60 - 2.40 [facility] Comment on above: Performed By: #### M G ####[id number] [place] [address] Magnesium, Serumon 3 Magnesium [Mass/Vol] 2.56 mg/dL above high threshold See Below [facility] 4100 Work Phone: Comment on above: Reference Range: 1.6 0 - 2.40 No Panel Informationon 11-14 Please click on the link to view the study images Normal [facility] Work Phone: 0.0 {/100_WBC} 0.0-0.0 MG-Otolary n [facility] 4100 Work Phone: Nutrition Therapy-Noteon Nutrition Therapy-Note Normal [facility] OT Evaluation v2-attemptedon 11-14-2022 OT Evaluation v2-attempted Normal [facility] OT Evaluation v2-individual therapyon 11-14-2022 OT Evaluation v2-individual therapy Normal [facility] PT Evaluation v2-physical th erapyon 11-14-2022 PT Evaluation v2-physical therapy Normal [facility] RENAL FUNCTION PANELon 11-14 Albumin [Mass/Vol] 3.8 g/dL Normal 3.4 - 5.0 [facility] Comment on above: Performed By: #### R ENAL ####[id number] [place] [address] Anion gap [Moles/Vol] 16 mmol/L Normal 10 - 20 [facility] Comment on above: Performed By: #### R ENAL ####[id number] [place] [address] Calcium [Mass/Vol] 9.0 mg/dL Normal 8.6 - 10.6 [facility] Comment on above: Performed By: #### R ENAL ####[id number] [place] [address] Chloride [Moles/Vol] 105 mmol/L Normal 98 - 107 [facility] Comment on above: Performed By: #### R ENAL ####[id number] [place] [address] Creatinine [Mass/Vol] 1.65 mg/dL High 0.50 - 1.30 [facility] Comment on above: Performed By: #### R ENAL ####[id number] [place] [address] GFR/1.73 sq M.predicted among non-blacks MDRD (S/P/Bld) [Vol rate/Area] 44 mL/min/{1.73_m2} Abnormal >90 [facility] Comment on above: Result Comment: CALC ULATIONS OF ESTIMATED GFR ARE PERFORMED USING THE 2020 CKD-EPI STUDY REFIT EQUATION WITHOUT THE RACE VARIABLE FOR THE IDMS-TRACEABLE CREATININE METHODS.https://jasn.asnjournals.org/content/early//A SN.[id number] Performed By: #### R ENAL ####[id number] [place] [address] Glucose [Mass/Vol] 110 mg/dL High 74 - 99 [facility] Comment on above: Performed By: #### R ENAL ####[id number] [place] [address] HCO3 (Bld) [Moles/Vol] 24 mmol/L Normal 21 - 32 [facility] Comment on above: Performed By: #### R ENAL ####[id number] [place] [address] Phosphate [Mass/Vol] 3.5 mg/dL Normal 2.5 - 4.9 [facility] Comment on above: Result Comment: The performance characteristics of phosphorus testing in heparinized plasma have been validated by the individual laboratory site where testing is performed. Testing on heparinized plasma is not approved by the FDA; however, such approval is not necessary. Performed By: #### R ENAL ####[id number] [place] [address] Potassium [Moles/Vol] 4.2 mmol/L Normal 3.5 - 5.3 [facility] Comment on above: Performed By: #### R ENAL ####[id number] [place] [address] Sodium [Moles/Vol] 141 mmol/L Normal 136 - 145 [facility] Comment on above: Performed By: #### R ENAL ####[id number] [place] [address] Urea nitrogen [Mass/Vol] 30 mg/dL High 6 - 23 [facility] Comment on above: Performed By: #### R ENAL ####[id number] [place] [address] Renal Function Panelon 11-14 Albumin BCP dye [Mass/Vol] 3.8 g/dL 3.4 - 5.0 MG-Otolaryn gology-[facility] 4100 Work Phone: [phone] Anion gap [Moles/Vol] 16 mmol/L 10 - 20 MG- Otolaryn gology-[facility] 4100 Work Phone: [phone] Calcium [Mass/Vol] 9.0 mg/dL 8.6 - 10.6 MG-[place] l[facility] 4100 Work Phone: [phone] Chloride [Moles/Vol] 105 mmol/L 98 - 107 MG-O tolaryn gology-[facility] 4100 Work Phone: [phone] CO2 [Moles/Vol] 24 mmol/L 21 - 32 MG-Otolar yn gology-[facility] 4100 Work Phone: [phone] Creatinine [Mass/Vol] 1.65 mg/dL above high threshold See Below MG-Otolaryn gology-[facility] 4100 Work Phone: [phone] Comment on above: Reference Range: 0.5 0 - 1.30 Glucose [Mass/Vol] 110 mg/dL above high threshold 74 - 99 MG-Otolaryn gology-[facility] 4100 Work Phone: Phosphate [Mass/Vol] 3.5 mg/dL 2.5 - 4.9 MG[facility]aryn [facility] 4100 Work Phone: Comment on above: The performance violet acteristics of phosphorus testing in heparinized plasma have been validated by the individual laboratory site where testing is performed. Testing on heparinized plasma is not approved by the FDA; however, such approval is not necessary. Potassium [Moles/Vol] 4.2 mmol/L 3.5 - 5.3 [facility] 4100 Work Phone: Sodium [Moles/Vol] 141 mmol/L 136 - 145 MG-[place] laryn [facility] 4100 Work Phone: Urea nitrogen [Mass/Vol] 30 mg/dL above high threshold 6 - 23 [facility]aryn [facility] 4100 Work Phone: Renal Function Panel 44 {mL/min/1.73m2} Abnormal >90 [facility] 4100 Work Phone: Comment on above: CALCULATIONS OF REYNALDO MATED GFR ARE PERFORMED USING THE 2020 CKD-EPI STUDY REFIT EQUATION WITHOUT THE RACE VARIABLE FOR THE IDMS-TRACEABLE CREATININE METHODS.https://jasn.asnjournals.org/content/early//A SN.1487215848 ABO/RH GROUP TESTon 11-14-19 23 ABO TYPE A Normal [facility] Comment on above: Performed By: #### V ERAB ####[id number] [place] [address] RH TYPE Positive Normal [facility] Comment on above: Performed By: #### V ERAB ####[id number] [place] [address] AFB CULTURE/SM, MISCon 11-13 AFB CULTURE/SM, MISC Normal [facility] Comment on above: Performed By: #### A FB ####[id number] [id number] AFB CULTURE/SM, MISC Normal [facility] Comment on above: Performed By: #### A FB ####[id number] [place] [address] Admission Risk Screen - Adul ton 11-13-2022 Admission Risk Screen - Adult Normal [facility] CORONAVIRUS 2019, SCREEN ASY MPTOMATICon 11-13-2022 SARS-CoV-2 (COVID-19) RNA JF+probe Ql (Unsp spec) Not detected Normal Not Detected [facility] Comment on above: Result Comment: .Thi s assay is designed to detect the ORF1a/b and E genes of SARS-CoV-2 vianucleic acid amplification. A Not Detected result does not [id number] infection since the adequacy of sample collection and/or low viralburden may result in presence of viral nucleic acids below the clinicalsensitivity of this test method.Fact sheet for providers: https://www.fda.gov/media/018163/downloadFact sheet for patients: https://www.fda.gov/media/185576/downloadThis test has received FDA Emergency Use Authorization (EUA) and has beenverified for use by [facility] ([facility]).This test is only authorized for the duration of time that circumstancesexist to justify the authorization of the emergency use of in vitrodiagnostic tests for the detection of SARS-CoV-2 virus and/or diagnosis ofCOVID-19 infection under section 564(b)(1) of the Act, 21 U.S.C.360bbb-3(b)(1), unless the authorization is terminated or revoked sooner.[facility] is certified under CLIA-88 asqualified to perform high complexity testing. Testing is performed in [facility] laboratories located at [address] [place] [address]. Performed By: #### C OVSC ####[id number] [place] [address] CT Sinus without Contraston 11-13-2022 CT Sinuses WO contrast Normal MG -[facility]tolaryn [facility] Work Phone: [phone] Clinical Note - Pharmacy v2- Medication Educationon 11-13-2022 Clinical Note - Pharmacy v2-Medication Education Normal [facility] Consult-Infectious Diseaseon 11-13-2022 Consult-Infectious Disease Normal [facility] Consult-Vascular Medicineon 11-13-2022 Consult-Vascular Medicine Normal [facility] Covid 19 Resultson 3 SARS-CoV-2 (COVID-19) RNA JF+probe Ql (Unsp spec) Normal [facility] Cult, AFB, Misc.+ smearon Mycobacterium sp identified Org specific cx Nom (Unsp spec) -[facility] 4100 Work Phone: [phone] Mycobacterium sp identified Org specific cx Nom (Unsp spec) MG-Otolaryn gology-[facility] 4100 Work Phone: [phone] Cult, Fungus +smearon 2022 Fungus identified Cx Nom (Unsp spec) Abnormal -[facility] 4100 Work Phone: [phone] Fungus identified Cx Nom (Unsp spec) Abnormal -[facility] 4100 Work Phone: [phone] Cult, Misc + smearon 11-13- 023 Bacteria identified Cx Nom (Unsp spec) [facility] 4100 Work Phone: [phone] Bacteria identified Cx Nom (Unsp spec) [facility] 4100 Work Phone: [phone] Discharge Planning Nlnq2ne 0 11-13-2022 Discharge Planning Note2 Normal [facility] FUNGAL CULTURE/SM, MISCon FUNGAL CULTURE/SM, MISC Normal [facility] Comment on above: Performed By: #### F [employer] ####[id number] [place] [address] FUNGAL CULTURE/SM, MISC Normal [facility] Comment on above: Performed By: #### F [employer] ####[id number] [place] [address] GLUCOSE-POCTon 11-13-2022 Glucose [Mass/Vol] 181 mg/dL High - 99 [facility] Comment on above: Performed By: #### G SUSAN ####[id number] [place] [address] Glucose [Mass/Vol] 160 mg/dL High 74 - 99 [facility] Comment on above: Performed By: #### G SUSAN ####[id number] [place] [address] Glucose [Mass/Vol] 209 mg/dL High - 99 [facility] Comment on above: Performed By: #### G SUSAN ####[id number] [place] [address] Glucose [Mass/Vol] 201 mg/dL High 74 - 99 [facility] Comment on above: Performed By: #### G SUSAN ####[id number] [place] [address] Glucose [Mass/Vol] 166 mg/dL High 74 - 99 [facility] Comment on above: Performed By: #### G SUSAN ####[id number] [place] [address] HEMOGLOBIN A1Con 11-13-2022 Glucose [Mass/Vol] 189 mg/dL Normal [facility] Comment on above: Performed By: #### H BA1E ####[id number] [place] [address] HbA1c (Bld) [Mass fraction] 8.2 % Abnormal [facility] Comment on above: Result Comment: Diag nosis of Diabetes-Adults Non-Diabetic: < or = 5.6% Increased risk for developing diabetes: 5.7-6.4% Diagnostic of diabetes: > or = 6.5%. Monitoring of Diabetes Age (y) Therapeutic Goal (%) Adults: >18 <7.0 Pediatrics: 13-18 <7.5 7-12 <8.0 0- 6 7.5-8.5 [employer]. Diabetes Care 33(S1), Aug 2009. Performed By: #### H BA1E ####[id number] [place] [address] Laboratory - Blood bankon ABO group Nom (Bld) A MG-Ot olaryn [facility]ology-[facility] Work Phone: [phone] Rh immune globulin screen (Bld) [Interp] Positive MG-Otolary n gology-[facility] Work Phone: [phone] Laboratory - Chemistry and C hemistry - challengeon 11-13-2022 Glucose [Mass/Vol] 181 mg/dL above high threshold 74 - 99 MG-Otolaryn gology-[facility] 4100 Work Phone: Glucose [Mass/Vol] 160 mg/dL above high threshold 74 - 99 MG-Otolaryn gology-[facility] 4100 Work Phone: [phone] Glucose [Mass/Vol] 209 mg/dL above high threshold 74 - 99 MG-[facility]tolaryn [facility] Work Phone: Glucose [Mass/Vol] 201 mg/dL above high threshold 74 - 99 MG-[facility]tolaryn [facility] Work Phone: Glucose [Mass/Vol] 166 mg/dL above high threshold 74 - 99 MG-[facility]tolaryn [facility] Work Phone: [phone] MISCELLANEOUS CULT./SM.BACT. on 11-13-2022 MISCELLANEOUS CULT./SM.BACT. Normal [facility] Comment on above: Performed By: #### M [facility] ####[id number] [place] [address] MISCELLANEOUS CULT./SM.BACT. Normal East [facility] Comment on above: Performed By: #### M [facility] ####[id number] [place] [address] SINUS WO CONTRASTon NR CT SINUS WO CONTRAST Normal [facility] Nutrition Therapy-Assessment on 11-13-2022 Nutrition Therapy-Assessment Normal [facility] Order Reconciliationon 11-13 Order Reconciliation Normal [facility] Patient Profile - Adult v2on 11-13-2022 Patient Profile - Adult v2 Normal [facility] Patient Profile - Preop v3on 11-13-2022 Patient Profile - Preop v3 Normal [facility] Radiologyon 11-13-2022 XR Abdomen AP Please click on the link to view the study images Normal MG-Otolaryn gology-Levi man Work Phone: [facility] Surgical Pathology Depar tmenton 11-13-2022 [facility] Surgical Pathology Department Normal [facility] Comment on above: Performed By: #### U HCS ####[facility] Surgical Pathology [id number] [facility] [address] BASIC METABOLIC PANELon 10-16 Anion gap [Moles/Vol] 19 mmol/L Normal 10 - 20 [facility] Comment on above: Performed By: #### B MP ####[id number] [place] [address] Calcium [Mass/Vol] 10.1 mg/dL Normal 8.6 - 10.6 [facility] Comment on above: Performed By: #### B MP ####[id number] [place] [address] Chloride [Moles/Vol] 99 mmol/L Normal 98 - 107 [facility] Comment on above: Performed By: #### B MP ####[id number] [place] [address] Creatinine [Mass/Vol] 1.60 mg/dL High 0.50 - 1.30 [facility] Comment on above: Performed By: #### B MP ####[id number] [place] [address] GFR/1.73 sq M.predicted among non-blacks MDRD (S/P/Bld) [Vol rate/Area] 46 mL/min/{1.73_m2} Abnormal >90 [facility] Comment on above: Result Comment: CALC ULATIONS OF ESTIMATED GFR ARE PERFORMED USING THE 2020 CKD-EPI STUDY REFIT EQUATION WITHOUT THE RACE VARIABLE FOR THE IDMS-TRACEABLE CREATININE METHODS.https://jasn.asnjournals.org/content//A SN.3862061041 Performed By: #### B MP ####[id number] [place] [address] Glucose [Mass/Vol] 215 mg/dL High 74 - 99 [facility] Comment on above: Performed By: #### B MP ####[id number] [place] [address] HCO3 (Bld) [Moles/Vol] 25 mmol/L Normal 21 - 32 [facility] Comment on above: Performed By: #### B MP ####[id number] [place] [address] Potassium [Moles/Vol] 4.5 mmol/L Normal 3.5 - 5.3 [facility] Comment on above: Performed By: #### B MP ####[id number] [place] [address] Sodium [Moles/Vol] 138 mmol/L Normal 136 - 145 [facility] Comment on above: Performed By: #### B MP ####[id number] [place] [address] Urea nitrogen [Mass/Vol] 28 mg/dL High 6 - 23 [facility] Comment on above: Performed By: #### B MP ####[id number] [place] [address] CBCon 11-12-2022 Erythrocyte distribution width (RBC) [Ratio] 14.6 % High 11.5 - 14.5 [facility] Comment on above: Performed By: #### C BC ####[id number] [place] [address] Hematocrit (Bld) [Volume fraction] 48.2 % Normal 41.0 - 52.0 [facility] Comment on above: Performed By: #### C BC ####[id number] [place] [address] Hemoglobin (Bld) [Mass/Vol] 15.6 g/dL Normal 13.5 - 17.5 [facility] Comment on above: Performed By: #### C BC ####[id number] [place] [address] MCHC (RBC) [Mass/Vol] 32.4 g/dL Normal 32.0 - 36.0 [facility] Comment on above: Performed By: #### C BC ####[id number] [place] [address] MCV (RBC) [Entitic vol] 96 fL Normal 80 - 100 [facility] Comment on above: Performed By: #### C BC ####[id number] [place] [address] NUCLEATED RBC 0.0 /100 WBC Normal 0.0-0.0 [facility] Comment on above: Performed By: #### C BC ####[id number] [place] [address] Platelets (Bld) [#/Vol] 308 10*3/uL Normal 150 - 450 [facility] Comment on above: Performed By: #### C BC ####[id number] [place] [address] RBC 5.03 x10E12/L Normal 4.50 - 5.90 [facility] Comment on above: Performed By: #### C BC ####[id number] [place] [address] WBC (Bld) [#/Vol] 7.9 10*3/uL Normal 4.4 - 11.3 [facility] Comment on above: Performed By: #### C BC ####[id number] [place] [address] COAGULATION SCREENon 023 aPTT Coag (Bld) [Time] 36 s Normal 26 - 39 [facility] Comment on above: Result Comment: THE APTT IS NO LONGER USED FOR MONITORING UNFRACTIONATED HEPARIN THERAPY. FOR MONITORING HEPARIN THERAPY, USE THE HEPARIN ASSAY. Performed By: #### C OAGS ####[id number] [place] [address] PT Coag (PPP) [Time] 15.2 s High 9.8 - 13.4 [facility] Comment on above: Performed By: #### C OAGS ####[id number] [place] [address] PT, INR 1.3 High 0.9 - 1.1 [facility] Comment on above: Performed By: #### C OAGS ####[id number] [place] [address] CORONAVIRUS 2019, SCREEN ASY MPTOMATICon 11-12-2022 Lab Specimen Source Nasal, Nasopharyngeal Normal [facility] Comment on above: Performed By: #### C OVSC ####[id number] [place] [address] Coronavirus 2019 RNA by PCR, Screening Asymptomticon [...] this test method. Fact sheet for providers: https://www.fda.gov/media/027451/download Fact sheet for patients: https://www.fda.gov/media/901140/download This test has received FDA Emergency Use Authorization (EUA) and has been verified for use by [facility] ([facility]). This test is only authorized for the duration of time that circumstances exist to justify the authorization of the emergency use of in vitro diagnostic tests for the detection of SARS-CoV-2 virus and/or diagnosis of COVID-19 infection under section 564(b)(1) of the Act, 21 U.S.C. 360bbb-3(b)(1), unless the authorization is terminated or revoked sooner.[facility] is certified under CLIA-88 as qualified to perform high complexity testing. Testing is performed in the [facility] laboratories located at [address] [place] [address]. Electrocardiogram 12 Leadon 11-12-2022 Electrocardiogram 12 Lead Normal [facility] Established Visit (Otolaryng ology)on 11-12-2022 Established [...] Chief Complaint follow up History of Present [age]pun40 yo man who presents for evaluation of [...] Allergies No Known Allergies Recorded By: Zulema Sqeueira; 10/30/2022 9:06:50 AM Current Meds Medication NameInstruction [...] TABS Vitals Vital Signs Recorded: 12Nov2022 01:11PM Yupcneyzvxa92.2 F Height6 ft 1 in Wlsdse245 lb BMI Tqddldzooc32.81 kg/m2 BSA Calculated2.48 Tobacco Useb) No PHQ-2 [...] Hemoglobin A1Con 11-12-2022 Glucose [Mass/Vol] 189 mg/dL [facility] Work Phone: HbA1c (Bld) [Mass fraction] 8.2 % Abnormal -Margoth sandra Work Phone: Comment on above: Diagnosis of Diabete s-Adults Non-Diabetic: < or = 5.6% Increased risk for developing diabetes: 5.7-6.4% Diagnostic of diabetes: > or = 6.5%. Monitoring of Diabetes Age (y) Therapeutic Goal (%) Adults: >18 <7.0 Pediatrics: 13-18 <7.5 7-12 <8.0 0- 6 7.5-8.5 [employer]. Diabetes Care 33(S1), Aug 2009. Laboratory - Blood bankon ABO group Nom (Bld) A [facility] d[facility] 3100 Work Phone: Blood group antibody screen Ql Negative [facility] [place] [id number] Work Phone: Rh immune globulin screen (Bld) [Interp] Positive [facility]-Medicin e [facility] 3100 Work Phone: Laboratory - Chemistry and C hemistry - challengeon 11-12-2022 Anion gap [Moles/Vol] 19 mmol/L 10 - 20 [facility]- [facility] 3100 Work Phone: Calcium [Mass/Vol] 10.1 mg/dL 8.6 - 10.6 [facility] icine [facility] 3100 Work Phone: Chloride [Moles/Vol] 99 mmol/L 98 - 107 MG-M edicine [facility] 3100 Work Phone: CO2 [Moles/Vol] 25 mmol/L 21 - 32 [facility]-Medici ne [facility] 3100 Work Phone: Creatinine [Mass/Vol] 1.60 mg/dL above high threshold See Below [place] [address] Work Phone: Comment on above: Reference Range: 0.5 0 - 1.30 Glucose [Mass/Vol] 215 mg/dL above high threshold 74 - 99 [place] [address] Work Phone: Potassium [Moles/Vol] 4.5 mmol/L 3.5 - 5.3 [place] [address] Work Phone: Sodium [Moles/Vol] 138 mmol/L 136 - 145 [place] [address] Work Phone: Urea nitrogen [Mass/Vol] 28 mg/dL above high threshold 6 - 23 [place] [address] Work Phone: Laboratory - Coagulationon 0 11-12-2022 aPTT Coag (PPP) [Time] 36 s 26 - 39 [place] [address] Work Phone: Comment on above: THE APTT IS NO LONGE R USED FOR MONITORING UNFRACTIONATED HEPARIN THERAPY. FOR MONITORING HEPARIN THERAPY, USE THE HEPARIN ASSAY. INR Coag (PPP) [Relative time] 1.3 {INR} above high threshold 0.9 - 1.1 [place] [address] Work Phone: PT Coag (PPP) [Time] 15.2 s above high threshold 9.8 - 13.4 [place] [address] Work Phone: Laboratory - Hematology and Cell countson 11-12-2022 Erythrocyte distribution width (RBC) [Ratio] 14.6 % above high threshold See Below [place] [address] Work Phone: Comment on above: Reference Range: 11. 5 - 14.5 Hematocrit (Bld) [Volume fraction] 48.2 % See Below [place] [address] Work Phone: Comment on above: Reference Range: 41. 0 - 52.0 Hemoglobin (Bld) [Mass/Vol] 15.6 g/dL See Below [place] [address] Work Phone: Comment on above: Reference Range: 13. 5 - 17.5 MCHC (RBC) [Mass/Vol] 32.4 g/dL See Below [place] [address] Work Phone: Comment on above: Reference Range: 32. 0 - 36.0 MCV (RBC) [Entitic vol] 96 fL 80 - 100 [place] [address] Work Phone: Platelets (Bld) [#/Vol] 308 10*3/uL 150 - 450 [place] [address] Work Phone: RBC (Bld) [#/Vol] 5.03 {x10E12/L} See Below [place] [address] Work Phone: Comment on above: Reference Range: 4.5 0 - 5.90 WBC (Bld) [#/Vol] 7.9 10*3/uL 4.4 - 11.3 [place] [address] Work Phone: MRSA Screenon 11-12-2022 Staphylococcus sp identified Org specific cx Nom (Unsp spec) -Otolaryn gology-Levi man Work Phone: [phone] No Panel Informationon 11-12 46 {mL/min/1.73m2} Abnormal >90 [place] [address] Work Phone: Comment on above: CALCULATIONS OF REYNALDO MATED GFR ARE PERFORMED USING THE 2020 CKD-EPI STUDY REFIT EQUATION WITHOUT THE RACE VARIABLE FOR THE IDMS-TRACEABLE CREATININE METHODS.https://jasn.asnjournals.org/content//A SN.1354969842 0.0 {/100_WBC} 0.0-0.0 [facility]-Medicin e -[facility] [place] [address] Work Phone: [phone] [email or web address]?RetrieveTestByDateTime ?SayxivdBV=[id number]&Date =12-11-2022&Time=08%3a17% 3a11%3a00&TestType=ECG&Si te=1&OutputType=PDF&Ext=P DF MG-Otolaryn gology-Levi man [...] To reach Dr. Burrows's office please call [phone]. . Call [phone] to schedule an appointment. You may also contact the RNs at [email or web address] (Please include your name and date of ) For MEDICATION REFILLS, please call [phone] option 6 then option 1. Chief Complaint BRENDON DAVID is being seen for a cardiovascular evaluation . For surgical clearance. History of Present Illness He is here for surgical clearance for ENT surgery. He denies fatigue, chest pain, palpitations, shortness of breath, dyspnea on exertion, orthopnea, PND, frequent headaches, dizziness, falls. No edema noted in BLE. EKG was completed today at [facility]. PMHx: HTN, GERD, DVT Active Problems [...] HPI. 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 He is here for pre-operative risk [...] risk of 30-day reggie-operative risk of / [place] / cardiac arrest. The fact that he [...] Transplantation Division of Cardiovascular Medicine Department of [facility] Signatures Electronically signed by : Heather Burrows MD; Nov 12 2022 11:22AM EST (Author) Normal Touchworks STAPH/MRSA SCREENon 11-13-19 23 STAPH/MRSA SCREEN Normal [facility] Comment on above: Performed By: #### S TAPH ####[id number] [place] [address] TYPE + SCREENon 11-12-2022 ABO TYPE A Normal [facility] Comment on above: Performed By: #### T +S ####[id number] [place] [address] RH TYPE Positive Normal [facility] Comment on above: Performed By: #### T +S ####[id number] [place] [address] Tobacco Screening.on 023 Adult depression screening assessment No [facility] [address] Work Phone: Fall risk assessment a) No falls within the last year [facility] [place] [address] Work Phone: Tobacco use status CPHS b) No [facility] [address] Work Phone: Fall risk assessment a) No falls within the last year [facility] [address] Work Phone: Tobacco use status CPHS b) No [facility] [address] Work Phone: Tobacco Screening. Large MG-Med icine [facility] [address] Work Phone: Basophil percentageOrdered B y: Dr. Jasso on 11-06-2022 Creatinine [Mass/Vol] 1.1 mg/dL 0.70-1.30 [facility] No Panel InformationOrdered By: Dr. Jasso on 11-06-2022 Bedside Estimated GFR (eGFR) > 60.0000 mL/min >60 [facility] Cult, Misc + smearon 023 Bacteria identified [...] - Specimen/Data Collection,Retrospective By Protocol Authorization; Requested for:[id number]; Site : Wound/Abscess MRI Face w/wo Contrast; Status:Hold For - Scheduling,Retrospective By Protocol Authorization; Requested for:30Oct2022; Radiologist to Determine Optimal Study : Y Does the patient have a Cochlear Implant, Pacemaker, Defibrilator, Pacing Wire, Brain Aneurysm Clip, Implanted Nerve or Bone Graft Simulator, Implanted Breast Tissue Pharmacy Teacher, Glucose Monitor, or Neulasta Device? 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 Welcome to Dr. Uriah Amador?s clinic. We are here to assist you with your ENT needs at [facility] [place]. Dr. Amador is an ENT that specializes in facial plastic and reconstructive surgery procedures. Dr. Uriah Amador?s office number is [phone] Please call this number to contact his care team regardless of which office you use to access care. This number is the most direct way to communicate with all the members of the care team. Mally Flowers is Dr. Amador's standards analyst and you can reach her at [phone]. She can help you with scheduling of appointments, general questions and information. She is available to receive calls Thursday through Thursday from 8:00 am until 4:25 pm. For your convenience, Dr. Amador sees patients at [facility], [facility], [facility], and [facility].. While we try to make [...] MISCELLANEOUS CULT./SM.BACT. on 10-30-2022 MISCELLANEOUS CULT./SM.BACT. Normal [facility] Comment on above: Performed By: #### M [facility] ####[id number] [place] [address] No Panel Informationon 10-30 [facility] 4[facility] Work Phone: Tobacco Screening.on 023 Adult depression screening assessment No -Otolarlisbet [facility] 4100 Work Phone: Fall risk assessment a) No falls within the last year -Otolarlisbet [facility] 4100 Work Phone: Tobacco use status CPHS b) No -Otolaryn [facility] 4100 Work Phone: [facility] Surgical Pathology Depar tmenton 10-30-2022 [facility] Surgical Pathology Department Normal [facility] Comment on above: Performed By: #### U [facility] ####[facility] Surgical Pathology [id number] [place] [address] Basophil percentageon 2021 WBC (Bld) [#/Vol] 7.7 10*3/uL 4.4-11.0 [facility] Work Phone: Blood erythrocytes count (nu mber/volume)on 05-27-2022 RBC (Bld) [#/Vol] 4.87 10*6/uL 4.6-6.2 [facility] Work Phone: Blood hemoglobin measurement (mass/volume)on 05-27-2022 Hemoglobin (Bld) [Mass/Vol] 15.7 g/dL 13.0-16.5 [facility] Work Phone: Blood platelet mean volumeon 05-27-2022 Platelet mean volume (Bld) [Entitic vol] 9.4 fL 6.2-12.0 [facility] Work Phone: Determination of erythrocyte mean corpuscular volume (MCV)on 05-27-2022 MCV (RBC) [Entitic vol] 96.5 fL 80-94 [facility] Work Phone: Glucose Glucometer (BldC) [M ass/Vol]on 05-27-2022 Glucose [Mass/Vol] 216 mg/dL 74-106 [facility] Work Phone: Comment on above: MANAGEMENT OF PATIEN T CARE PER NURSING PROTOCOL Hematocrit Auto (Bld) [Volum e fraction]on 05-27-2022 Hematocrit (Bld) [Volume fraction] 47.0 % 40-54 [facility] Work Phone: Laboratory - Coagulationon 1 INR Coag (Bld) [Relative time] 1.1 {INR} [facility] Work Phone: Comment on above: Critical Value > 4.0 Laboratory - Hematology and Cell countson 05-27-2022 Erythrocyte distribution width (RBC) [Entitic vol] 51.4 fL 35.1-43.9 [facility] Work Phone: Erythrocyte distribution width (RBC) [Ratio] 14.4 % 11.6-14.6 [facility] Work Phone: MCH (RBC) [Entitic mass] 32.2 pg 27.0-32.0 [facility] Work Phone: MCHC Auto (RBC) [Mass/Vol]on 05-27-2022 MCHC (RBC) [Mass/Vol] 33.4 g/dL 32-36 [facility] Work Phone: Platelets bldon 05-27-2022 Platelets (Bld) [#/Vol] 305 10*3/uL 150-450 [facility] Work Phone: Whole blood prothrombin time on 05-27-2022 PT Coag (Bld) [Time] 14.2 s 11.7-14.9 [facility] Work Phone: Basophil percentageon 2021 Chloride [Moles/Vol] 103 mmol/L 98-107 [facility] Work Phone: Glucose [Mass/Vol] 138 mg/dL 74-106 [facility] Work Phone: Comment on above: Fasting Glucose resu lt greater than or equal to 126 mg/dL suggests DIABETES MELLITUS per A.D.A. criteria. Potassium [Moles/Vol] 4.2 mmol/L 3.5-5.1 [facility] Work Phone: Sodium [Moles/Vol] 138 mmol/L 136-145 [facility] Work Phone: Laboratory - Chemistry and C hemistry - challengeon 05-22-2022 CO2 [Moles/Vol] 26.0 mmol/L 21.0-32.0 [facility] Work Phone: Urea nitrogen/Creatinine [Mass ratio] 16.2 mg/mg 10-20 [facility] Work Phone: No Panel Informationon 05-22 Estimated GFR (MDRD) Amer 45 mL/min >60 [facility] Work Phone: Comment on above: GFR Calc Estimated GFR (MDRD) Non-Af Amer 37 mL/min >60 [facility] Work Phone: Comment on above: Non- GFR Calc Serum or plasma calcium lisa urement (mass/volume)on 05-22-2022 Calcium [Mass/Vol] 9.2 mg/dL 8.5-10.1 [facility] Work Phone: Serum or plasma creatinine m easurement (mass/volume)on 05-22-2022 Creatinine [Mass/Vol] 1.91 mg/dL 0.70-1.30 [facility] Work Phone: Comment on above: The validity of the calculated GFR & GFRAA in patients over 70 years has not been determined. Clinical correlation is essential. Serum or plasma urea nitroge n measurement (mass/volume)on 05-22-2022 Urea nitrogen [Mass/Vol] 31 mg/dL 7-18 [facility] Work Phone: Thin prep Papanicolaou smear with manual screeningon 05-22-2022 Thin prep Papanicolaou smear with manual screening 9 5-15 [facility] Work Phone: Absolute lymphocyte counton 12-20-2021 Lymphocytes Auto (Unsp spec) [#/Vol] 1.23 10*3/uL 0.83-4.51 [facility] Work Phone: Basophil percentageon 2021 Basophils/100 WBC (Bld) 0.5 % 0-1 [facility] Work Phone: Bilirubin [Mass/Vol] 0.50 mg/dL 0.20-1.00 [facility] Work Phone: Comment on above: For patients on eltr ombopag therapy, use of [facility] TBIL is not recommended. Chloride [Moles/Vol] 100 mmol/L 98-107 [facility] Work Phone: Eosinophils/100 WBC (Bld) 2.0 % 0-5 [facility] Work Phone: Glucose [Mass/Vol] 121 mg/dL 74-106 [facility] Work Phone: Comment on above: Fasting Glucose resu lt from 100 to 125 mg/dL suggests IMPAIRED HOMEOSTASIS per A.D.A. criteria. Neutrophils (Bld) [#/Vol] 5.2 10*3/uL 2.0-7.7 [facility] Work Phone: Neutrophils/100 WBC (Bld) 70.7 % 47-70 [facility] Work Phone: Potassium [Moles/Vol] 4.3 mmol/L 3.5-5.1 [facility] Work Phone: Comment on above: Slight Hemolysis, Re sult may be falsely increased. Protein [Mass/Vol] 7.4 g/dL 6.4-8.2 [facility] Work Phone: Sodium [Moles/Vol] 136 mmol/L 136-145 [facility] Work Phone: WBC (Bld) [#/Vol] 7.4 10*3/uL 4.4-11.0 [facility] Work Phone: Blood erythrocytes count (nu mber/volume)on 12-20-2021 RBC (Bld) [#/Vol] 4.94 10*6/uL 4.6-6.2 [facility] Work Phone: Blood hemoglobin measurement (mass/volume)on 12-20-2021 Hemoglobin (Bld) [Mass/Vol] 15.7 g/dL 13.0-16.5 [facility] Work Phone: Blood lymphocytes/100 leukoc yteson 12-20-2021 Lymphocytes/100 WBC (Bld) 16.6 % 19-41 [facility] Work Phone: Blood monocytes/100 leukocyt eson 12-20-2021 Monocytes/100 WBC (Bld) 9.0 % 0-10 [facility] Work Phone: Blood platelet mean volumeon 12-20-2021 Platelet mean volume (Bld) [Entitic vol] 9.7 fL 6.2-12.0 [facility] Work Phone: Determination of erythrocyte mean corpuscular volume (MCV)on 12-20-2021 MCV (RBC) [Entitic vol] 95.5 fL 80-94 [facility] Work Phone: Hematocrit Auto (Bld) [Volum e fraction]on 12-20-2021 Hematocrit (Bld) [Volume fraction] 47.2 % 40-54 [facility] Work Phone: INR in Blood by Coagulation assayon 12-20-2021 INR Coag (Bld) [Relative time] 2.1 {INR} [facility] Work Phone: Laboratory - Chemistry and C hemistry - challengeon 12-20-2021 ALP [Catalytic activity/Vol] 53 U/L 45-117 [facility] Work Phone: ALT [Catalytic activity/Vol] 26 U/L 16-61 [facility] Work Phone: CO2 [Moles/Vol] 29.0 mmol/L 21.0-32.0 [facility] Work Phone: Globulin (S) [Mass/Vol] 4.0 g/dL 2.2-4.2 [facility] Work Phone: Urea nitrogen/Creatinine [Mass ratio] 18.3 mg/mg 10-20 [facility] Work Phone: Laboratory - Coagulationon 0 12-20-2021 PT Coag (PPP) [Time] 23.3 s 11.7-14.9 [facility] Work Phone: Laboratory - Hematology and Cell countson 12-20-2021 Erythrocyte distribution width (RBC) [Entitic vol] 51.8 fL 35.1-43.9 [facility] Work Phone: Erythrocyte distribution width (RBC) [Ratio] 14.7 % 11.6-14.6 [facility] [facility] Work Phone: Immature granulocytes/100 WBC (Bld) 1.200 % 0.0-0.9 [facility] Work Phone: Comment on above: IG% - Immature Granu locytes (promyelocytes, myelocytes and metamyelocytes) > 1% indicates that a LEFT SHIFT is Present. MCH (RBC) [Entitic mass] 31.8 pg 27.0-32.0 [facility] Work Phone: Nucleated RBC/100 WBC (Bld) [Ratio] 0 % 0-5 [facility] Work Phone: MCHC Auto (RBC) [Mass/Vol]on 12-20-2021 MCHC (RBC) [Mass/Vol] 33.3 g/dL 32-36 [facility] Work Phone: No Panel Informationon 12-20 Estimated GFR (MDRD) Amer 52 mL/min >60 [facility] Work Phone: Comment on above: GFR Calc Estimated GFR (MDRD) Non-Af Amer 43 mL/min >60 [facility] Work Phone: Comment on above: Non- GFR Calc Urine Microalbumin/Creatinin e Ratio 29.0 mg/g CRE <30 [facility] Work Phone: Platelets bldon 12-20-2021 Platelets (Bld) [#/Vol] 309 10*3/uL 150-450 [facility] Work Phone: Serum or plasma albumin lisa urement (mass/volume)on 12-20-2021 Albumin [Mass/Vol] 3.4 g/dL 3.2-5.0 [facility] Work Phone: Serum or plasma albumin/glob ulin mass ratioon 12-20-2021 Albumin/Globulin [Mass ratio] 0.8 {ratio} 0.9-2.4 [facility] Work Phone: Serum or plasma calcium lisa urement (mass/volume)on 12-20-2021 Calcium [Mass/Vol] 8.9 mg/dL 8.5-10.1 [facility] Work Phone: Serum or plasma creatinine m easurement (mass/volume)on 12-20-2021 Creatinine [Mass/Vol] 1.69 mg/dL 0.70-1.30 [facility] Work Phone: Comment on above: The validity of the calculated GFR & GFRAA in patients over 70 years has not been determined. Clinical correlation is essential. Serum or plasma urea nitroge n measurement (mass/volume)on 12-20-2021 Urea nitrogen [Mass/Vol] 31 mg/dL 7-18 [facility] Work Phone: Thin prep Papanicolaou smear with manual screeningon 12-20-2021 Thin prep Papanicolaou smear with manual screening 19 U/L 15-37 [facility] Work Phone: Comment on above: Slight Hemolysis, Re sult may be falsely increased. Thin prep Papanicolaou smear with manual screening 7 5-15 [facility] Work Phone: Thin prep Papanicolaou smear with manual screening 18.8 mg/L NO RANGE EST. [facility] Work Phone: Urine creatinine measurement (mass/volume)on 12-20-2021 Creatinine (U) [Mass/Vol] 64.90 mg/dL NO RANGE EST. [facility] Work Phone: Whole blood hemoglobin A1c/t otal hemoglobin ratio (mass fraction)on 12-20-2021 HbA1c (Bld) [Mass fraction] 7.8 % 3.8-5.6 [facility] Work Phone: Comment on above: Normal < 5.7 % Predi abetic 5.7 - 6.4 % Diabetic >or= 6.5 % Please note range changes. Basophil percentageon 2021 Creatinine [Mass/Vol] 1.1 mg/dL 0.70-1.30 [facility] Work Phone: No Panel Informationon 11-26 Bedside Estimated GFR (eGFR) > 60.0000 mL/min >60 [facility] Work Phone: Vital Signs Date Time Vital Sign Value Performing Clinician Facility 01-05-2025 08:02-0400 Body height 185.[address] Key Jasso MD Work Phone: [facility] 01-05-2025 08:02-0400 Body mass index (BMI) [Ratio] 36.3 kg/m2 Dr. Key Jasso MD Work Phone: [facility] 01-05-2025 08:02-0400 Body weight 124.[address] Key Jasso MD Work Phone: [facility] 10-03-2024 10:00-0500 Body height 185.4 cm Natividad Rodriguez MD Work Phone: [facility] 10-03-2024 10:00-0500 Body mass index (BMI) [Ratio] 35.62 kg/m2 Natividad Rodriguez MD Work Phone: [facility] 10-03-2024 10:00-0500 Body weight 122.47 kg Natividad Rodriguez MD Work Phone: [facility] 11-02-2023 09:38-0400 Body mass index (BMI) [Ratio] 39.84 kg/m2 Natividad Rodriguez MD Work Phone: [facility] 11-02-2023 09:38-0400 Body temperature 96.69 [degF] Natividad Rodriguez MD Work Phone: [facility] 11-02-2023 09:38-0400 Body weight 136.99 kg Natividad Rodriguez MD Work Phone: [facility] 07-06-2023 08:46-0500 Body height 185.4 cm Natividad Rodriguez MD Work Phone: [facility] 07-06-2023 08:46-0500 Body mass index (BMI) [Ratio] 36.84 kg/m2 Natividad Rodriguez MD Work Phone: [facility] 07-06-2023 08:46-0500 Body temperature 96.91 [degF] Natividad Rodriguez MD Work Phone: [facility] 07-06-2023 08:46-0500 Body weight 126.64 kg Natividad Rodriguez MD Work Phone: [facility] 05-04-2023 11:10-0400 Body height 185.42 cm Key Jasso Work Phone[facility] Work Phone: 05-04-2023 11:10-0400 Body mass index (BMI) [Ratio] 35.62 kg/m2 Key Jasso [facility] Work Phone: 05-04-2023 11:10-0400 Body surface area Derived from formula 2.44 m2 Key Jasso Work Phone: [facility] Work Phone: 05-04-2023 11:10-0400 Body weight 122.47 kg Key Jasso Work Phone: [facility] 4[facility] Work Phone: 01-19-2023 08:50-0400 Body mass index (BMI) [Ratio] Medical Reason Not Done Key Jasso Work Phone: [facility] 4[facility] Work Phone: 01-05-2023 09:40-0400 Body height 185.42 cm Key Jasso Work Phone: [facility] 4[facility] Work Phone: 01-05-2023 09:40-0400 Body mass index (BMI) [Ratio] 33.46 kg/m2 Key Jasso Work Phone: [facility] Work Phone: 01-05-2023 09:40-0400 Body surface area Derived from formula 2.38 m2 Key Jasso Work Phone: [facility] Work Phone: 01-05-2023 09:40-0400 Body temperature 96 [degF] Key Jasso Work Phone: [facility] 4[facility] Work Phone: 01-05-2023 09:40-0400 Body weight 115.03 kg Key Jasso Work Phone: [facility] Work Phone: 01-02-2023 09:46-0400 Body height 185.42 cm Key Jasso Work Phone: [facility] 4[address] Work Phone: 01-02-2023 09:46-0400 Body mass index (BMI) [Ratio] 35.23 kg/m2 Key Jasso Work Phone: [facility] Work Phone: 01-02-2023 09:46-0400 Body surface area Derived from formula 2.43 m2 Keynevin Jasso Work Phone: [facility] 4[facility] Work Phone: 01-02-2023 09:46-0400 Body weight 121.11 kg Keynevin Jasso Work Phone: [facility] 4[facility] Work Phone: 01-02-2023 09:46-0400 Diastolic blood pressure 66 mm[Hg] Key Thiago Jasso Work Phone: [facility] [address] Work Phone: 01-02-2023 09:46-0400 Heart rate 51 /min Key Thiago Jasso Work Phone: [facility] Work Phone: 01-02-2023 09:46-0400 Respiratory rate 14 /min Key Thiago Jasso Work Phone: [facility] 4[facility] Work Phone: 01-02-2023 09:46-0400 SaO2% (BldA) [Mass fraction] 99 % Key Thiago Jasso Work Phone: [facility] Work Phone: 01-02-2023 09:46-0400 Systolic blood pressure 124 mm[Hg] Key Thiago Jasso Work Phone: [facility] 4100 Work Phone: 12-29-2022 12:15-0400 Body height 185.42 cm Key Thiago Jasso Work Phone: [facility] 4[facility] Work Phone: 12-29-2022 12:15-0400 Body mass index (BMI) [Ratio] 35.25 kg/m2 Key Jasso Work Phone: [facility] 4100 Work Phone: 12-29-2022 12:15-0400 Body surface area Derived from formula 2.43 m2 Keynevin Jasso Work Phone: [facility] 4100 Work Phone: 12-29-2022 12:15-0400 Body temperature 96.6 [degF] Keynevin Jasso Work Phone: [facility] 4[address] Work Phone: 12-29-2022 12:15-0400 Body weight 121.2 kg Keynevin Jasso Work Phone: [facility] 4[facility] Work Phone: 12-23-2022 11:11-0400 Body height 185.42 cm Key Jasso Work Phone: [facility] [place] Work Phone: 12-23-2022 11:11-0400 Body mass index (BMI) [Ratio] 35.24 kg/m2 Key Jasso Work Phone: [facility] [place] Work Phone: 12-23-2022 11:11-0400 Body surface area Derived from formula 2.43 m2 Keynevin Jasso Work Phone: [facility] [place] Work Phone: 12-23-2022 11:11-0400 Body temperature 97.6 [degF] Key Thiago Jasso Work Phone: [facility] [place] Work Phone: 12-23-2022 11:11-0400 Body weight 121.17 kg Key A Jasso Work Phone: [facility] [place] Work Phone: 12-23-2022 11:11-0400 Diastolic blood pressure 73 mm[Hg] Key Jasso Work Phone: [facility] [place] Work Phone: 12-23-2022 11:11-0400 Heart rate 53 /min Key Jasso Work Phone: [facility] [place] Work Phone: 12-23-2022 11:11-0400 Systolic blood pressure 123 mm[Hg] Key Jasso Work Phone: [facility] [place] Work Phone: 12-15-2022 11:41-0400 Body mass index (BMI) [Ratio] Medical Reason Not Done Key Jasso Work Phone: [facility] 4[facility] Work Phone: 12-10-2022 11:04-0400 Body temperature 96.98 [degF] Key Jasso Other Phone: [facility] 12-10-2022 11:04-0400 Diastolic blood pressure 64 mm[Hg] Key Jasso Other Phone: [facility] 12-10-2022 11:04-0400 Heart rate 60 /min Key Jasso Other Phone: [facility] 12-10-2022 11:04-0400 Respiratory rate 19 /min Key Jasso Other Phone: [facility] 12-10-2022 11:04-0400 SaO2% (BldA) [Mass fraction] 98 % Key Jasso Other Phone: [facility] 12-10-2022 11:04-0400 Systolic blood pressure 100 mm[Hg] Key Jasso Other Phone: [facility] 12-04-2022 15:49-0400 Body temperature 37.0 {degrees_C} Key Jasso Work Phone: [facility] 4[facility] Work Phone: Comment on above: NOTE: PATIENT RESULTS ARE NOT CORRECTED FOR TEMPERATURE. 12-04-2022 10:39-0400 Body temperature 37.0 {degrees_C} Keynevin Jasso Work Phone: [facility] 4[facility] Work Phone: Comment on above: NOTE: PATIENT RESULTS ARE NOT CORRECTED FOR TEMPERATURE. 12-04-2022 10:39-0400 SaO2% (BldA) [Mass fraction] 97 % Keynevin Jasso Work Phone: [facility] 4100 Work Phone: 12-03-2022 17:13-0400 Body temperature 37.0 {degrees_C} Key Jasso Work Phone: [facility] [address] Work Phone: Comment on above: NOTE: PATIENT RESULTS ARE NOT CORRECTED FOR TEMPERATURE. 12-03-2022 17:13-0400 SaO2% (BldA) [Mass fraction] 100 % Keynevin Jasso Work Phone: [facility] [address] Work Phone: 12-03-2022 14:15-0400 Body temperature 37.0 {degrees_C} Key Jasso Work Phone: [facility]asburg[facility] 4106 Work Phone: Comment on above: NOTE: PATIENT RESULTS ARE NOT CORRECTED FOR TEMPERATURE. 12-03-2022 14:15-0400 SaO2% (BldA) [Mass fraction] 99 % Key Jasso Work Phone: [facility] 4[facility] Work Phone: 12-03-2022 09:52-0400 Body temperature 37.0 {degrees_C} Key Jasso Work Phone: [facility] 4[address] Work Phone: Comment on above: NOTE: PATIENT RESULTS ARE NOT CORRECTED FOR TEMPERATURE. 12-03-2022 09:52-0400 SaO2% (BldA) [Mass fraction] 100 % Key Thiago Jasso Work Phone: [facility] 4[facility] Work Phone: 12-01-2022 09:44-0400 Body height 185.42 cm Key Thiago Jasso Work Phone: [facility] 4[address] Work Phone: 12-01-2022 09:44-0400 Body mass index (BMI) [Ratio] 36.44 kg/m2 Key Thiago Jasso Work Phone: [facility] 4100 Work Phone: 12-01-2022 09:44-0400 Body surface area Derived from formula 2.47 m2 Key Thiago Jasso Work Phone: [facility] [address] Work Phone: 12-01-2022 09:44-0400 Body weight 125.28 kg Key Thiago Jasso Work Phone: [facility] Work Phone: 12-01-2022 05:04-0400 Diastolic blood pressure 65 mm[Hg] [facility] 12-01-2022 05:04-0400 Heart rate 62 /min [facility] 12-01-2022 05:04-0400 Respiratory rate 20 /min [facility] 12-01-2022 05:04-0400 SaO2% (BldA) [Mass fraction] 95 % [facility] 12-01-2022 05:04-0400 Systolic blood pressure 112 mm[Hg] [facility] 12-01-2022 00:12-0400 Body height 185.42 cm [facility] 12-01-2022 00:12-0400 Body mass index (BMI) [Ratio] 37.6 kg/m2 [facility] 12-01-2022 00:12-0400 Body temperature 97.4 [degF] [facility] 12-01-2022 00:12-0400 Body weight 129.4 kg [facility] 11-25-2022 14:39-0400 Body height 185.42 cm Key Das [employer] Work Phone: [facility] [place] Work Phone: 11-25-2022 14:39-0400 Body mass index (BMI) [Ratio] 37.14 kg/m2 Key Das [employer] Work Phone: [facility] [place] Work Phone: 11-25-2022 14:39-0400 Body surface area Derived from formula 2.49 m2 Key Das [employer] Work Phone: [facility] [place] Work Phone: 11-25-2022 14:39-0400 Body temperature 98 [degF] Key Das Jasso Work Phone: [facility] [place] Work Phone: 11-25-2022 14:39-0400 Body weight 127.69 kg Key Das [employer] Work Phone: [facility] [place] Work Phone: 11-25-2022 14:39-0400 Diastolic blood pressure 80 mm[Hg] Key Das [employer] Work Phone: [facility] [place] Work Phone: 11-25-2022 14:39-0400 Heart rate 59 /min Keynevin Jasso Work Phone: [facility] [place] Work Phone: 11-25-2022 14:39-0400 Respiratory rate 16 /min Keynevin Jasso Work Phone: [facility] [place] Work Phone: 11-25-2022 14:39-0400 SaO2% (BldA) [Mass fraction] 97 % Key Thiago Jasso Work Phone: [facility] [place] Work Phone: 11-25-2022 14:39-0400 Systolic blood pressure 140 mm[Hg] Key Thiago Jasso Work Phone: [facility] [place] Work Phone: 11-18-2022 07:43-0400 Body temperature 97.88 [degF] Key Jasso Other Phone: [facility] 11-18-2022 07:43-0400 Diastolic blood pressure 79 mm[Hg] Key Jasso Other Phone: [facility] 11-18-2022 07:43-0400 Heart rate 86 /min Key Jasso Other Phone: [facility] 11-18-2022 07:43-0400 Respiratory rate 18 /min Key Romero Other Phone: [facility] 11-18-2022 07:43-0400 SaO2% (BldA) [Mass fraction] 97 % Key Romero Other Phone: [facility] 11-18-2022 07:43-0400 Systolic blood pressure 159 mm[Hg] Key Jasso Other Phone: [facility] 11-12-2022 13:11-0400 Body height 185.42 cm Keynevin Jasso Work Phone: CS-Tahabkzs-Eoicra [facility] [place] [address] Work Phone: 11-12-2022 13:11-0400 Body mass index (BMI) [Ratio] 36.81 kg/m2 Key Thiago Jasso Work Phone: LC-Lpcoyxna-Xmggwn [facility] [place] [address] Work Phone: 11-12-2022 13:11-0400 Body surface area Derived from formula 2.48 m2 Key Das Romero Work Phone: UY-Annmlqyu-Rnzdfa [facility] [place] [address] Work Phone: 11-12-2022 13:11-0400 Body temperature 97.2 [degF] Key Das Romero Work Phone: MZ-Ajxydkvx-Qeiqhy [facility] [place] [address] Work Phone: 11-12-2022 13:11-0400 Body weight 126.55 kg Key Das Romero Work Phone: MY-Lrzhlefa-Ylddvx [facility] [place] [address] Work Phone: 11-12-2022 10:41-0400 Body height 185.42 cm Key Das Romero Work Phone: LY-Lklxmvoz-Waaltx [facility] [place] [address] Work Phone: 11-12-2022 10:41-0400 Body mass index (BMI) [Ratio] 36.84 kg/m2 Key Das Romero Work Phone: EF-Apbqumwo-Xvedta [facility] [place] [address] Work Phone: 11-12-2022 10:41-0400 Body surface area Derived from formula 2.48 m2 Key Das Jasso Work Phone: HW-Eivadykv-Hiovcy [facility] [place] [address] Work Phone: 11-12-2022 10:41-0400 Body temperature 97.7 [degF] Key Jasso Work Phone: IG-Zjeyrvrn-Ysfkan [facility] [place] [address] Work Phone: 11-12-2022 10:41-0400 Body weight 126.67 kg Keynevin Jasso Work Phone: WX-Szisvdkn-Zarmrv [facility] [place] [address] Work Phone: 11-12-2022 10:41-0400 Diastolic blood pressure 71 mm[Hg] Key Thiago Jasso Work Phone: MP-Bnvrrvol-Pyeeeb [facility] [place] [address] Work Phone: 11-12-2022 10:41-0400 Heart rate 64 /min Key Thiago Jasso Work Phone: ZV-Yhjpcbzg-Lyvsop [facility] [place] [address] Work Phone: 11-12-2022 10:41-0400 SaO2% (BldA) [Mass fraction] 95 % Key Thiago Jasso Work Phone: BA-Kjgyrpcj-Ogwzef [facility] [place] [address] Work Phone: 11-12-2022 10:41-0400 Systolic blood pressure 129 mm[Hg] Key Thiago Jasso Work Phone: RP-Mecxpgzb-Ljmioj [facility] [place] [address] Work Phone: 10-30-2022 08:58-0400 Body height 185.42 cm [facility] Work Phone: 10-30-2022 08:58-0400 Body mass index (BMI) [Ratio] 36.98 kg/m2 Unknown Unknown [facility] 4100 Work Phone: 10-30-2022 08:58-0400 Body surface area Derived from formula 2.48 m2 Unknown Unknown [facility] 4100 Work Phone: 10-30-2022 08:58-0400 Body temperature 97.3 [degF] Unknown Unknown [facility] 4100 Work Phone: 10-30-2022 08:58-0400 Body weight 127.14 kg Unknown Unknown [facility] 4[facility] Work Phone: 05-27-2022 14:18-0400 Body temperature 98.6 [degF] [facility] Work Phone: 05-27-2022 14:18-0400 Diastolic blood pressure 64 mm[Hg] [facility] Work Phone: 05-27-2022 14:18-0400 Heart rate 65 /min [facility] Work Phone: 05-27-2022 14:18-0400 Respiratory rate 16 /min [facility] Work Phone: 05-27-2022 14:18-0400 SaO2% (BldA) [Mass fraction] 98 % [facility] Work Phone: 05-27-2022 14:18-0400 Systolic blood pressure 136 mm[Hg] [facility] Work Phone: 05-27-2022 06:58-0400 Body height 185.42 cm [facility] Work Phone: 05-27-2022 06:58-0400 Body mass index (BMI) [Ratio] 37.2 kg/m2 [facility] Work Phone: 05-27-2022 06:58-0400 Body weight 127.91 kg [facility] Work Phone: Encounters Encounter Date Encounter Type Care Provider Facility Start: 03-17-2025 End: 03-17-[address] Key Jasso MD Work Phone: -Laboratory [place] Start: 03-17-2025 End: 03-17-[address] Key Jasso MD -Laboratory [place] Work Phone: Start: 03-17-2025 End: 03-17-2025 ambulatory Key Jasso Facility:[facility] Start: 03-07-2025 End: 03-07-[address] Key Jasso MD Work Phone: -Laboratory [facility] Start: 03-07-2025 End: 03-07-[address] Key Jasso MD -Laboratory [facility] Start: 03-07-2025 End: 03-07-2025 ambulatory Key Jasso Facility:[facility] Start: 01-12-2025 End: 01-12-[address] Key Jasso MD Work Phone: -Physical Therapy Start: 01-12-2025 End: 01-12-[address] Per Pond MD -Physical Therapy Work Phone: Start: 01-12-[address] Per watters MD -Physical Therapy Work Phone: Start: 01-05-2025 End: 01-05-[address] Per Pond MD -[facility] Work Phone: Start: 01-05-2025 End: 01-05-2025 ambulatory Key Jasso Facility:[facility] Start: 11-21-2024 End: 11-21-[address] Key Jasso MD Work Phone: [facility] Work Phone: Start: 11-21-2024 End: 11-21-[address] [facility] Work Phone: Start: 11-21-2024 End: 11-21-2024 ambulatory Key Jasso Facility:[facility] Start: 10-11-2024 End: 10-11-[address] Key Jasso MD Work Phone: [facility] Work Phone: Start: 10-11-2024 End: 10-11-[address] Key Jasso MD -Laboratory, [facility] Start: 10-11-2024 End: 10-11-2024 ambulatory Key Jasso Facility:[facility] Start: 10-03-2024 End: 10-03-2024 Office outpatient visit 10 minutes Natividad Rodriguez MD Work Phone: [facility] Comment on above: History of osteomyel itis (Primary Dx) Start: 10-03-2024 End: 10-03-2024 ambulatory [facility] Ambulatory Start: 06-27-2024 End: 06-27-2024 ambulatory KEY Das [facility] Start: 06-03-2024 End: 06-03-2024 Office outpatient visit 25 minutes Sadia Dickson MD Work Phone: [facility] [place] Comment on above: Osteomyelitis of max illa (Primary Dx); Actinomycosis, cervicofacial Start: 06-03-2024 End: 06-03-2024 ambulatory [facility] Ambulatory Start: 04-13-2024 End: 04-13-2024 ambulatory Key Jasso Facility:[facility] Start: 02-26-2024 End: 02-26-2024 Office outpatient visit 15 minutes Sadia Dickson MD Work Phone: [facility] [place] Comment on above: Actinomycosis, cervi cofacial (Primary Dx) Start: 02-26-2024 End: 02-26-2024 ambulatory [facility] Ambulatory Start: 12-15-2023 End: 12-15-2023 Office outpatient visit 25 minutes Sadia Dickson MD Work Phone: [facility] [place] Comment on above: Actinomycosis, cervi cofacial (Primary Dx); Osteomyelitis of maxilla Start: 12-15-2023 End: 12-15-2023 ambulatory [facility] Ambulatory Start: 12-07-2023 End: 12-07-2023 ambulatory [facility] Work Phone: Start: 12-07-2023 End: 12-07-2023 Patient encounter procedure [facility] Start: 11-02-2023 End: 11-02-2023 Office outpatient visit 15 minutes Natividad Rodriguez MD Work Phone: [facility] Comment on above: Osteomyelitis of max illa (Primary Dx) Start: 11-02-2023 End: 11-02-2023 ambulatory [facility] Ambulatory Start: 08-31-2023 End: 08-31-2023 Office outpatient visit 10 minutes Uriah Amador MD Work Phone: [facility] Comment on above: Osteomyelitis of max illa (Primary Dx) Start: 07-27-2023 End: 07-27-2023 ambulatory [facility] Work Phone: Start: 07-27-2023 End: 07-27-2023 Patient encounter procedure [facility] Start: 07-06-2023 End: 07-06-2023 ambulatory [facility] Work Phone: Start: 07-06-2023 End: 07-06-2023 Patient encounter procedure [facility] Work Phone: Start: 07-06-2023 End: 07-06-2023 Office outpatient visit 15 minutes Natividad Rodriguez MD Work Phone: [facility] Comment on above: Osteomyelitis of max illa (Primary Dx) Start: 06-26-2023 End: 06-26-2023 ambulatory [facility] Work Phone: Start: 06-26-2023 End: 06-26-2023 Patient encounter procedure [facility] Start: 06-22-2023 End: 06-22-2023 ambulatory [facility] Work Phone: Start: 06-22-2023 End: 06-22-2023 Patient encounter procedure [facility] Start: 06-19-2023 End: 06-20-2023 ambulatory [facility] Start: 06-19-2023 End: 06-19-2023 Subsequent hospital visit by physician Ronak Forrester [facility] Comment on above: Inflammatory conditi ons of jaws Start: 05-04-2023 Office outpatient vi sit 15 minutes Key Jasso Work Phone: HP-[facility]zlyvhefclimrn-[facility] 4100 Work Phone: Start: 05-04-2023 ambulatory NATIVIDAD Facility:9 448 Start: 03-31-2023 Office outpatient vi sit 25 minutes Key Jasso Work Phone: MG-Infectious Disease-[facility] [place] Work Phone: Start: 03-31-[address] Key Monaco ty:[id number] Start: 02-23-2023 ambulatory [facility] Facility:9 448 Start: 02-20-2023 End: 02-20-2023 ambulatory [facility] Work Phone: Start: 02-20-2023 End: 02-20-2023 Patient encounter procedure [facility], [facility] Start: 02-16-2023 Postop follow up vis it related to original px Key A Romero Work Phone: TB-Wbjvgcffcfmkqx-[facility]neo[facility] 4100 Work Phone: Start: 02-16-[address] Key Monaco ty:[id number] Start: 01-19-2023 Postop follow up vis it related to original px Keynevin Jasso Work Phone: OG-Aekzuglgkvmtqg-[facility]en[facility] 4100 Work Phone: Start: 01-19-[address] Key Monaco ty:[id number] Start: 01-05-2023 Postop follow up vis it related to original px Key A Romero Work Phone: KO-Noxsdouqhxohba-Bbtb[facility] 4100 Work Phone: Start: 01-05-[address] Key Monaco ty:[id number] Start: 01-05-2023 ambulatory NATIVIDAD RODRIGUEZ Facility:9 448 Start: 01-02-2023 ambulatory NATIVIDAD LI Facility:9 346 Start: 12-31-2022 [facility], Provider: Uriah Amador, Status: Pen, Time: 10:00 AM Key Jasso Work Phone: OT-Jwrsavlxpiwvbw-EuenNorth [facility] 4101 Work Phone: Start: 12-31-2022 End: 12-31-[address] Key Jasso Facility:[facility] Start: 12-31-2022 End: 12-31-2022 Subsequent hospital visit by physician Uriah Amador MD Work Phone: [facility] SURG B LEGACY Comment on above: Other [...] diabetes mellitus with diabetic chronic kidney disease ([facility]); Obesity, unspecified; Personal history of other venous thrombosis and embolism; assisted (current) use of anticoagulants; Unspecified osteoarthritis, unspecified site; Spinal stenosis, lumbar region without neurogenic claudication; Unspecified visual loss; Chronic sinusitis, unspecified; Personal history of COVID-19; assisted (current) use of aspirin; assisted (current) use of oral hypoglycemic drugs Start: 12-30-2022 Chart Update Key Jasso Work Phone: BQ-Qbudgsqyiskqbu-Ifkk man Work Phone: Start: 12-29-2022 Office outpatient vi sit 15 minutes Key Jasso Work Phone: AS-Mzbmvsodoyznbp-VfaoNorth [facility] 4103 Work Phone: Start: 12-29-[address] Key Monaco ty:[id number] Start: 12-23-[address] Key Monaco ty:[id number] Start: 12-23-2022 Chart Update Key Jasso Work Phone: MG-Infectious Disease-[facility] [place] Work Phone: Start: 12-19-2022 AUDIT Key Jasso Work Phone: MG-Infectious Disease-[facility] [place] Work Phone: Start: 12-17-2022 Chart Update Key Jasso Work Phone: MG-Infectious Disease-[facility] [place] Work Phone: Start: 12-15-2022 Postop follow up vis it related to original px Key Jasso Work Phone: PK-Vilkxiewjhuhvm-FleiNorth [facility] State Hospital 4100 Work Phone: Start: 12-15-[address] Key Monaco ty:[id number] Start: 12-03-2022 [facility], Provider: Uriah Amador, Status: Pen, Time: 7:00 AM Key Jasso Work Phone: CJ-Ycidmvertmugbp-LsrzNorth [facility] 4100 Work Phone: Start: 12-03-2022 End: 12-10-2022 Evaluation and management of inpatient Uriah Timo Usha 5 Rm [id number] Start: 12-01-2022 Office outpatient vi sit 15 minutes Key Jasso Work Phone: CG-Cgxboagotvlfcx-UvsvNorth [facility] 4100 Work Phone: Start: 12-01-[address] Key Monaco ty:[id number] Start: 12-01-2022 End: 12-01-2022 Emergency department patient visit [facility]-Emergency Department Start: 11-25-[address] Natividad Rodriguez Facility:9 498 Start: 11-25-2022 Chart Update Key Jasso Work Phone: MG-Infectious Disease-[facility] [place] Work Phone: Start: 11-17-2022 Chart Update Key Jasso Work Phone: KN-Frfugupfsqfeqc-JysnSan[facility] 4100 Work Phone: Start: 11-13-2022 End: 11-18-2022 Evaluation and management of inpatient PCP UNKNOWN Facility:[facility] Start: 11-13-2022 Chart Update Key Jasso Work Phone: PA-Fxvnuduropdmmq-Vvfm man Work Phone: Start: 11-13-2022 [facility], Provider: Natividad Rodriguez, Status: Pen, Time: 8:00 AM Key Jasso Work Phone: UV-Ezrgwnwx-KldeemqNorth [facility] State Hospital Dylan 3109 Work Phone: Start: 11-13-2022 End: 11-18-2022 Evaluation and management of inpatient Natividad Rodriguez Usha 5 Rm [id number] Start: 11-12-[address] Key Jasso Facili ty:[facility] Start: 11-12-2022 ambulatory UNKNOWN UNKNOWN Facilit y:[id number] Start: 11-12-2022 Office outpatient ne w 45 minutes Key Jasso Work Phone: VN-Gmmwsgtq-ZvnlvdgNorth Dakota State Hospital Dylan 3101 Work Phone: Start: 11-12-2022 ambulatory NATIVIDAD RODRIGUEZ Facility:[facility] Start: 11-12-2022 Encounter for blood typing NATIVIDAD RODRIGUEZ [facility] Start: 11-12-2022 Encounter for preprocedural cardiovascular examination NATIVIDAD RODRIGUEZ [facility] Start: 11-12-2022 Encounter for preprocedural laboratory examination NATIVIDAD RODRIGUEZ [facility] Start: 11-06-2022 AUDIT Unknown Unknown MG-Otol aryngology-Ak[place] n 395 Work Phone: Start: 11-06-2022 End: 11-06-2022 ambulatory [facility] Work Phone: Start: 11-06-2022 End: 11-06-2022 Patient encounter procedure [facility]-MRI - [facility] Start: 10-30-2022 ambulatory [facility] Facility: [facility] Start: 10-30-2022 Office consultation new/estab patient 80 min Unknown Unknown XB-Umfrbniquzjivm-Crcs n 395 Work Phone: Start: 10-30-2022 Patient encounter procedure Unknown Unknown LO-Upbgccpcqtktob-ZgmzSan[facility] 4100 Work Phone: Start: 10-30-2022 [facility] Facility: [facility] Start: 09-30-2022 End: 09-30-2022 [facility] Work Phone: Start: 09-30-2022 End: 09-30-2022 Patient encounter procedure [facility]-Cat Scan, [facility] Start: 05-27-2022 End: 05-27-2022 Admission to same day surgery center [facility]-Surgical Day Care Start: 05-27-2022 End: 05-27-2022 ambulatory [facility] Work Phone: Start: 04-07-2022 End: 04-07-2022 [facility] Work Phone: Start: 04-07-2022 End: 04-07-2022 Patient encounter procedure [facility]-Cat Scan, [facility] Start: 12-20-2021 End: 12-20-2021 Patient encounter procedure [facility]-Laboratory, [facility] Start: 11-26-2021 End: 11-26-2021 Patient encounter procedure [facility]-Cat Scan, [facility] Preoperative state Key Jasso Work Phone: WJ-Xizkzqbc-RvbgudxNorth Dakota State Hospital Dylan 3100 Work Phone: Procedures Date Procedure [...] on above: Performed By: #### T +S ####[id number] [place] [address] Start: 11-12-2022 Antibody screen NATIVIDAD Brandt I Comment on above: Performed By: #### T +S ####[id number] [place] [address] Start: 11-06-2022 MRI of orbit, face a [...] procedure 10/31/2024 9:45 AM EDT Office Visit [facility] [address] Dylan [address] [place] [phone] [place] [address] [place] [address] [facility] Start: 06-03-2024 End: 06-03-2025 C reactive protein [Mass/volume] in Serum or Plasma C-reactive protein Lab Routine Actinomycosis, cervicofacial Osteomyelitis of maxilla Expected: 06/03/2024 (Approximate), Expires: 06/03/2025 [facility] Service Area Work Phone: Comment on above: Expected: 06/03/2024 (Approximate), Expi res: 06/03/2025 Start: 04-17-2024 COVID-19 Vaccine () COVID-19 Vaccine () [facility] Start: 04-17-2024 Influenza vaccination [facility] Start: 01-01-2024 Diabetes mellitus screening Diabetes Screening [facility] Start: 12-18-2023 End: 12-18-2023 Telemedicine consultation with patient 12/18/2023 8:40 AM EDT Telemedicine [facility] [address] [facility] [address] [place] [id number] [place] [address] [address] [place], [place] [id number] [facility] Start: 11-14-2023 End: 11-14-2024 Atenolol 50 mg Oral Tablet Daily ; Tablet (TENORMIN)DOSE = 50 mg Feeding tube Daily Start: 14-Nov-2023 End: 13-Nov-2024 Ordered: 13-Nov-2022 Jose Antonio, Dena Intent [facility] Start: 11-02-2023 End: 11-02-2023 Patient encounter procedure 11/02/2023 9:45 AM EDT Office Visit [facility] [address] [facility] [address] [place] [address] [place] [address] [place], [place] [id number] [facility] Start: 08-31-2023 FUV, Provider: Uriah Amador, Status: Pen, Time: 9:30 AM FUV, Provider: Uriah Amador, Status: Pen, Time: 9:30 AM JG-Tfurongzzmbyqm-Fpf dungin [facility] Work Phone: Start: 08-31-2023 End: 08-31-2023 Patient encounter procedure 08/31/2023 9:30 AM EST Office Visit [facility] [address] [place] [address] [place] [address] [place], [place] [id number] [facility] Start: 07-31-2023 VIRFUVMARJORIE, Provider: Sadia Dickson, Status: Pen, Time: 8:00 AM VIRFUPERRI, Provider: Sadia Dickson, Status: Pen, Time: 8:00 AM MG-Infectious Disease-[facility] Work Phone: Start: 07-31-2023 End: 07-31-2023 Telemedicine consultation with patient 07/31/2023 8:00 AM EST Telemedicine [facility] [address] [facility] [address] [place] [phone] [place] [address] [place], [place] [id number] [facility] Start: 07-06-2023 End: 07-06-2023 Patient encounter procedure 07/06/2023 8:45 AM EST Office Visit [facility] [address] [place] [address] [place] [address] [place] [address] [facility] Start: 04-17-2023 COVID-19 Vaccine (1 season) COVID-19 Vaccine ( season) [facility] Start: 04-17-2023 Influenza vaccination Influenza Vaccine (#1) [facility] Start: 03-31-2023 VIRFUVHOME, Provider: Sadia Dickson, Status: Pen, Time: 10:20 AM VIRFUVHOME, Provider: Sadia Dickson, Status: Pen, Time: 10:20 AM EN-[facility]koiomrxeqntqp-[facility] 4100 Work Phone: Start: 02-23-2023 FUV, Provider: Natividad Rodriguez, Status: Pen, Time: 10:45 AM FUV, Provider: Natividad Rodriguez, Status: Pen, Time: 10:45 AM [facility] 4100 Work Phone: Start: 02-16-2023 POV, Provider: Uriah Amador, Status: Pen, Time: 9:30 AM POV, Provider: Uriah Amador, Status: Pen, Time: 9:30 AM [facility] 4100 Work Phone: Start: 02-12-2023 Hemoglobin A1c measurement Diabetes: Hemoglobin A1C [facility] Start: 01-20-2023 FUV, Provider: Natividad Rodriguez, Status: Pen, Time: 9:00 AM FUV, Provider: Natividad Rodriguez, Status: Pen, Time: 9:00 AM [facility] Work Phone: Start: 01-19-2023 POV, Provider: Uriah Amador, Status: Pen, Time: 9:00 AM POV, Provider: Uriah Amador, Status: Pen, Time: 9:00 AM QJ-Vozwxmxkiwyrbi-[facility] 4100 Work Phone: Start: 01-05-2023 POV, Provider: Natividad Rodriguez, Status: Pen, Time: 10:45 AM POV, Provider: Natividad Rodriguez, Status: Pen, Time: 10:45 AM MG-Infectious Disease-[facility] [place] Work Phone: Start: 01-02-2023 FUVHOSP, Provider: Sadia Dickson, Status: Pen, Time: 10:20 AM FUVHOSP, Provider: Sadia Dickson, Status: Pen, Time: 10:20 AM EW-Ytebebhiduvaxt-[facility] 4100 Work Phone: Start: 01-02-2023 Patient encounter procedure [facility] Infectio us Disease [place] Start: 12-29-2022 FUV, Provider: Uriah Amador, Status: Pen, Time: 12:45 PM FUV, Provider: Uriah Amador, Status: Pen, Time: 12:45 PM NN-Auyhxoicndpdse-[facility]acSan[facility] 4100 Work Phone: Start: 12-26-2022 Patient encounter procedure Usha M ed Onc Start: 12-26-2022 POV, Provider: Natividad Rodriguez, Status: Pen, Time: 1:15 PM POV, Provider: Natividad Rodriguez, Status: Pen, Time: 1:15 PM GV-Wdamksvwlhqhch-IltSan[facility] 4100 Work Phone: Start: 12-22-2022 NPV, Provider: Analisa Barrera, Status: Pen, Time: 1:45 PM NPV, Provider: Analisa Barrera, Status: Pen, Time: 1:45 PM [facility]fectious Disease-[facility] [place] Work Phone: Start: 12-22-2022 Patient encounter procedure Cardiolog y [facility] Start: 12-15-2022 Patient encounter procedure [facility] Otolaryn gology [place] Start: 11-25-2022 Patient encounter procedure [facility] Miscella neous Start: 11-25-2022 POV, Provider: Natividad Rodriguez, Status: Pen, Time: 2:45 PM POV, Provider: Natividad Rodriguez, Status: Pen, Time: 2:45 PM YF-Pgsurqgoydcwjw-[facility] 4100 Work Phone: Start: 11-16-2022 End: 11-17-2023 [...] DENTON Start: 16-Nov-2022 End: 16-Nov-2023 Ordered: 16-Nov-2022 jE Verdin [facility] Start: 11-15-2022 End: 11-16-2023 Sennosides Oral Liquid 5 mL 2 Times a Day ; DOSE = 5 mL Feeding tube 2 Times a Day Start: 15-Nov-2022 End: 15-Nov-2023 Ordered: 15-Nov-2022 Rigoberto Smith [facility] Start: 11-13-2022 End: 11-14-2023 [facility] Comment on above: When patient has double lumen, flush bot h lumens After blood draws May Give 1ml to 5ml to anesthetize insertion site for patient comfort. Start: 11-13-2022 End: 11-14-2023 [facility] Comment on above: IF patient HAS [...] mg/dL or greater. Start: 05-27-2022 Patient discharge [facility] Work Phone: Start: 08-09-2020 Hepatitis B Vaccines (3 of 3 - 19+ 3-dose series) Hepatitis B Vaccines (3 of 3 - 19+ 3-dose series) [facility] Start: 07-01-2019 DTaP/Tdap/Td Vaccines (1 - Tdap) DTaP/Tdap/Td Vaccines (1 - Tdap) [facility] Start: 2012 RSV High Risk: (Elderly (60+) or Population) (1 - Risk 60-74 years 1-dose series) RSV High Risk: (Elderly (60+) or Population) (1 - Risk 60-74 years 1-dose series) [facility] Start: 2012 RSV patients and/or patients aged 60+ years (1 - 1-dose 60+ series) RSV patients and/or patients aged 60+ years (1 - 1-dose 60+ series) [facility] Start: 1970 Hepatitis C screening Hepatitis C Screening [facility] Start: 1962 Diabetic foot examination Diabetes: Foot Exam [facility] Start: 1962 Glaucoma screening Diabetes: Retinopathy Screening [facility] Start: 03-11-1953 COVID-19 Vaccine (#1) COVID-19 Vaccine (#1) [facility] Start: 1952 Lipid panel Lipid Panel [facility] Start: 1952 Medicare Annual Wellness Visit Medicare Annual Wellness Visit (AWV) [facility] Start: 1950 Screening for malignant neoplasm of colon [facility] Blood chemistry [facility] Work Phone: Electrocardiographic procedure [facility] Work Phone: Hemoglobin A1c/Hemoglobin.total in Blood [facility] Work Phone: Patient Education ED Post Op Wou nd Check, Bleeding [facility] Work Phone: Patient referral [facility] Work Phone: Postoperative pain Postoperative pain [facility] Prothrombin time [facility] Work Phone: Immunizations Immunization Date Immunization Notes Care Provider Fa esther 12-15-2022 zoster vaccine recombinant Key A Jasso Work Phone: MG-Infectious Disease-[facility] Work Phone: 08-28-2022 zoster vaccine recombinant Key Jasso Work Phone: MG-Infectious Disease-[facility] Work Phone: 08-01-2020 hepatitis A vaccine, pediatric/adolescent dosage, 2 dose schedule Key Jasso Work Phone: MG-Infectious Disease-[facility] Work Phone: 04-02-2020 hepatitis B vaccine, adult dosage Key Jasso Work Phone: MG-Infectious Disease-[facility] Work Phone: 02-08-2020 hepatitis B vaccine, adult dosage Key Jasso Work Phone: MG-Infectious Disease-[facility] [place] Work Phone: 02-08-2020 pneumococcal polysaccharide vaccine, 23 valent Key Jasso Work Phone: MG-Infectious Disease-[facility] [place] Work Phone: 06-30-2019 pneumococcal conjuga te vaccine, 13 valent Key Jasos Work Phone: MG-Infectious Disease-[facility] Work Phone: 06-30-2019 tetanus and diphther ia toxoids, adsorbed, preservative free, for adult use (5 Lf of tetanus toxoid and 2 Lf of diphtheria toxoid) Key Jasso Work Phone: MG-Infectious Disease-[facility] Work Phone: Payers Date Payer Category Payer Self-pay [id number] 2020 Medicare [id number] 2020 Medicare supplementa l policy (as second payer) [employer] SENIOR SUPPLEMENT [id number] 2020 Private Health Insurance AETNA S UPPLEMENTAL AETNA SENIOR SUPPLEMENT [id number] 2020-Present [address] [place] [address] [id number] 2020 Private Health Insurance I [id number] 2017 Medicare [id number] 2016 Unknown [id number] 1952 Unknown [id number] 2.840.1.687800.3.57 9.2.1046 1952 Unknown [id number] 2.840.1.828269.3.57 9.2.1046 1952 Unknown [id number] 2.840.1.663205.3.57 9.2.356 1952 Unknown [id number] 2.840.1.649674.3.57 9.2.356 1952 Unknown [id number] 2.840.1.141617.3.57 9.2.356 1952 Unknown [id number] 2.16.840.1.615998.3.57 9.2.356 1952 Unknown [id number] 2.16.840.1.632409.3.57 9.2.356 1952 Unknown [id number] 2.16.840.1.714268.3.57 9.2.356 1952 Unknown [id number] 2.16.840.1.978683.3.57 9.2.356 1952 Unknown [id number] 2.16.840.1.281944.3.57 9.2.356 1952 Unknown [id number] 2.16.840.1.217584.3.57 9.2.356 1952 Unknown [id number] 2.16.840.1.267387.3.57 9.2.356 1952 Unknown [id number] 2.16.840.1.561069.3.57 9.2.356 1952 Unknown [id number] 2.16.840.1.900070.3.57 9.2.356 1952 Unknown [id number] 2.16.840.1.848906.3.57 9.2.356 1952 Unknown [id number] 2.16.840.1.920999.3.57 9.2.356 1952 Unknown [id number] 2.16.840.1.948411.3.57 9.2.356 1952 Unknown [id number] 2.16.840.1.355525.3.57 9.2.356 1952 Unknown [id number] 2.16.840.1.748659.3.57 9.2.356 1952 Unknown [id number] 2.16.840.1.282529.3.57 9.2.356 1952 Unknown [id number] 2.16.840.1.854689.3.57 9.2.356 1952 Unknown [id number] 2.16.840.1.422171.3.57 9.2.1243 1952 Unknown [id number] 2.16.840.1.427238.3.57 9.2.1245 1952 Unknown [id number] 2.16.840.1.420841.3.57 9.2.1244 1952 Unknown [id number] 2.16.840.1.394226.3.57 9.2.1244 1952 Unknown [id number] 2.16.840.1.062024.3.57 9.2.1244 1952 Unknown [id number] 2.16.840.1.130799.3.57 9.2.1244 1952 Unknown [id number] 2.16.840.1.171570.3.57 9.2.1244 Unknown Unknown [id number] 2.16.840.1.516446.3.57 9.2.462 Unknown [id number] 2.16.840.1.216677.3.57 9.2.462 Unknown [id number] 2.16.840.1.369137.3.57 9.2.462 Unknown [id number] 2.16.840.1.731904.3.57 9.2.462 Unknown [id number] 2.16.840.1.793857.3.57 9.2.462 Unknown [id number] 2.16.840.1.046907.3.57 9.2.462 Unknown [id number] 2.16.840.1.145671.3.57 9.2.462 Unknown [id number] 2.16.840.1.878035.3.57 9.2.462 Social History Date Type Detail Facility Start: 06-12-2021 End: 12-01-2022 Tobacco smoking status NHIS Unknown if ever smoked [facility] Start: 05-20-2019 None [facility] Start: 05-20-2019 Spouse/ Signif icant Other [facility] Start: 11-16-2019 Non-smoker [facility] Start: 1950 Sex Assigned At Male W [facility] Start: 1950 Sex Assigned At Not on file [facility] Work Phone: Start: 07-06-2023 End: 11-02-2023 Gender identity Not on file [facility] Work Phone: Start: 06-09-2023 End: 10-03-2024 Exposure to SARS-CoV-2 (event) Not sure [facility] Start: 12-01-2022 End: 07-06-2023 Tobacco smoking status NHIS Never smoked tobacco [facility] Work Phone: Start: 07-06-2023 Tobacco use and exposure Smokeless tobacco non-user [facility] Work Phone: Start: 07-06-2023 End: 11-02-2023 History of Social function [facility] Work Phone: Start: 05-24-2024 End: 06-03-2024 Exposure to SARS-CoV-2 (event) Unable to assess [facility] Start: 10-26-2024 End: 11-24-2024 Sex Male (finding) [facility] Medical Equipment Procedure Code Equipment Code Equipment Origin al Text Equipment Identifier Dates FESS (functional endoscopic sinus surgery) Plant polysaccharide haemostatic agent, bioabsorbable [id number] 02[facility] FDA Start: 05-27-2022 USE 1 EACH DAILY WITH USE OF INSULIN PEN [id number] Start: 10-14-2022 Goals Date Patient Goal Desired Activity /State Functional Status Date Assessment Result Facility Functional observable [facility] Mental Status Date Assessment Result Facility 12-08-2022 Cognitive functi ons :19 [facility] 11-17-2022 Cognitive functi ons [id number] [facility] 05-27-2022 Cognitive function Voice/Name [facility] Work Phone: Clinical Notes 05-04-2021 to 03-28-2025 Note Date & Type Note Facility 03-28-2025 Discharge summary [facility] 03-28-2025 Discharge summary Note Date/Time March 28, 2025 12:58pm [facility] Physical Therapy [facility] [address] [place] [address] / REHABILITATION SERVICES DISCHARGE SUMMARY MR#: [id number] Acct: [id number] Name: BRENDON DAVID Rep #: [id number] : 1950 74 From: Cert. DANGELO RocaT, [...] Dr. Key Jasso MD ~ JLA Signed [facility] Work Phone: 1(489) 412-331305-22-2025 Evaluation note* Diagnosis Onset Date Resolution Status Admit Date Balance disorder acute December 7:46am History of lumbar fusion acute January 05, 2025 7:46am Spinal stenosis of lumbar re gion with neurogenic claudication acute January 05, 2025 7:46am Spondylolisthesis, lumbar region acu te January 05, 2025 7:46am [facility] Work Phone: 1(146) 928-628902-25-2025 Radiology Diagnostic study note [facility] Imaging Services [address] [place], [place] [address] Lumbar Spine 2 or 3 Views MR#: [id number] Acct: [id number] Name: BRENDON DAVID Rep #: [id number] : 1950 74 From: Jad Baker MD PCP: Dr. Key Jasso MD Status: REG CLI Study:Lumbar Spine 2 or 3 Views Date of Exam: 10/11/24 Exam# [id number] Ordering Dr: Torito Jasso MD PROCEDURE: LUMBAR [...] interarticularis of the L5 vertebrae. Reading Location: [id number] CC: Dr. Key Jasso MD ~ Neck Band Maker: Signed [facility]04-30-2024 History of Present illness Narrative* Sadia Dickson [...] January 13 8:40 AM documented in this [facility] Work Phone: 1(533) 446-176403-18-2024 History of Present illness Narrative* Natividad Rodriguez [...] Signs/Symptoms:osteomyelitis of maxilla COMPARISON: None. ACCESSION NUMBER(S): [id number] ORDERING CLINICIAN: NATIVIDAD RODRIGUEZ TECHNIQUE: Thin cut [...] Nuñez MD. This study was interpreted at [place], [place]. MACRO: None Signed by: Christopher Oconnell 06/19/2023 10:11 AM Dictation workstation: [id number] Assessment and Plan 72 yo man with a destructive process involving much of the left maxilla s/p maxillectomy, recon with serratus/rib free flap ct face w/o contrast -: no obvious bony necrosis, maxillary sinus patent -well healed -pt to reach out to Dr. Dickson to discuss when to stop doxy -RTC in 1 year Natividad Rodriguez MD [facility] Work Phone: [phone] [phone] History of Present illness Narrative* Uriah Amador [...] -RTC in 4-6 months [facility] Work Phone: 1(943) 581-888211-20-2023 History of Present illness Narrative* Natividad Rodriguez [...] Signs/Symptoms:osteomyelitis of maxilla COMPARISON: None. ACCESSION NUMBER(S): [id number] ORDERING CLINICIAN: NATIVIDAD RODRIGUEZ TECHNIQUE: Thin cut [...] Nuñez MD. This study was interpreted at [place], [place]. MACRO: None Signed by: Christopher Oconnell 06/19/2023 10:11 AM Dictation workstation: [id number] Assessment and Plan 72 yo man with a destructive process involving much of the left maxilla s/p maxillectomy, recon with serratus/rib free flap -reviewed ct face w/o contrast: no obvious bony necrosis, maxillary sinus patent -healing well -RTC in 4-6 months Natividad Rodriguez MD documented in this [facility] Work Phone: 1(464) 729-745209-18-2023 NoteOrders Blood Urea Nitrogen, Serum; Status:In Progress - Specimen/Data Collected; Done: [id number] Creatinine, Serum; Status:In Progress - Specimen/Data Collected; Done: 74Nzo2552 CT Face with/without Contrast; Status:Hold For - Scheduling,Retrospective By Protocol Authorization; Requested for:[id number]; Patient taking Metformin or Derivatives? : No [...] Chief Complaint follow up History of Present Qmdfino34 yo man who presents for evaluation of [...] Tablet Zinc TABS Vitals Vital Signs Recorded: 10Axc7724 11:10AM Height6 ft 1 in Tepdhi212 lb BMI Vxdzrogrqi32.62 kg/m2 BSA Calculated2.44 Tobacco Useb) No PHQ-2 [...] MD; May 04 2023 12:34PM EST (Author) [id number] History of Present illness Narrative* Update March [...] outside providers and finally was referred to [facility]-- in October underwent surgery and [...] better. No fevers chills nausea vomiting diarrhea. [facility] Work Phone: 1(113) 691-419508-15-2023 Chief complaint Narrative - Reported* An interactive [...] for a hospital follow up visit. -[facility] Work Phone: 1(101) 860-880005-17-2023 [facility]05-17-2023 Miscellaneous Notes* Op Note - Anthony De Guzman MD - 12/31/2022 3:00 PM EDT PROCEDURE DETAILS Preoperative Diagnosis: Osteomyelitis of the maxilla Postoperative Diagnosis: Osteomyelitis of the maxilla Surgeon: Timo Resident/Fellow/Other Medical Office Technician: Olinde. De Guzman Procedure: 1. Left palate [...] 10:42 by Uriah Amador) documented in this [facility] Work Phone: 1(282) 775-207605-17-2023 Note* Op Note - Anthony De Guzman MD - 12/31/2022 3:00 PM EDT PROCEDURE DETAILS Preoperative Diagnosis: Osteomyelitis of the maxilla Postoperative Diagnosis: Osteomyelitis of the maxilla Surgeon: Timo Resident/Fellow/Other Medical Office Technician: Olinde. De Guzman Procedure: 1. Left palate [...] Last Updated: 01-Jan-2023 10:42 by Uriah Amador) [facility] Work Phone: 1(339) 615-754805-17-2023 [facility]05-17-2023 History and physical note* Anthony De [...] Last Updated: 01-Jan-2023 10:33 by Uriah Amador) [facility] Work Phone: 1(228) 853-932605-17-2023 History and physical note* Anthony De Guzman [...] 10:33 by Uriah Amador) [facility] Work Phone: 1(855) 896-640904-26-2023 [facility]04-21-2023 [facility]04-20-2023 [facility] 12-03-2022 [facility]04-19-2023 [facility]04-19-2023 Reason for referral (narrative)* Reason for [...] then re-inserted on 12/[address] Amador [facility]04-19-2023 [facility] Benitez [facility] December 01, 2022 4:58am Note Date/Time December 01, 2022 2:1 4am [facility] Medical Records Department [address] [place] [address] Emergency Department Summary 12/01/22 MR#: [id number] Acct: [id number] Name: BRENDON DAVID Rep #:[id number] : 1950 72 From: Doron Benitez MD [...] weak. His surgery was done up at [facility] in [place]. [facility] Medical History Benign essential hypertension COVID-19 CPAP (continuous positive airway pressure) dependence Diabetes DVT (deep venous thrombosis) DVT (deep venous thrombosis) HLD (hyperlipidemia) Hypertension Non-smoker Non-ST elevation [place] (NSTEMI) Sleep apnea Type II diabetes mellitus [...] % (Auto) 62.0 Lymph % (Auto) 24.7 Dubois % (Auto) 8.7 Eos % (Auto) 3.1 [...] Restrictions/Additional Instructions: Follow-up with your physician at [facility] this morning as scheduled. Disposition Disposition: Home, Self Care What to do if you have Problems For any increased pain, shortness of breath, bleeding, nausea or vomiting, chestpain, or any unexpected problems, contact your Primary Care Provider. Call [facility] ([phone]) or report to the closest Emergency Room. Call 911 if necessary. 12/01/22 0458 <Electronically signed by Doron Benitez MD> Cosigner Signature (if applicable): CC: Dr. Key Jasso MD ~ Signed [facility] Work Phone: 1(809) 251-778804-04-2023 [facility]03-31-2023 [facility]03-30-2023 Reason for referral (narrative)* Reason for Referral: s/p Maxilla debridement, dental extraction #10-14, Right maxilla antrostomy and DHT on 11/13/2022 [facility]03-30-2023 [facility]03-30-2023 [facility]02-20-2023 History of Present illness Narrative* Natividad [...] Signs/Symptoms:osteomyelitis of maxilla COMPARISON: None. ACCESSION NUMBER(S): [id number] ORDERING CLINICIAN: NATIVIDAD RODRIGUEZ TECHNIQUE: Thin cut [...] Nuñez MD. This study was interpreted at [place], [place]. MACRO: None Signed by: Christopher Oconnell 06/19/2023 10:11 AM Dictation workstation: [id number] Assessment and Plan 72 yo man with a destructive process involving much of the left maxilla s/p maxillectomy, recon with serratus/rib free flap ct face w/o contrast 07-09: no obvious bony necrosis, maxillary sinus patent -well healed -has stopped abx for 6 months and doing well -I will be leaving /[facility], he will just follow up as needed if any issues arise Natividad Rodriguez MD documented in this [facility] Work Phone: 1(130) 273-595410-06-2022 Hospital Discharge instructionsAmbulatory Orders* 12 Lead EKG [[facility]] Time Frame: 05/22/22, Location: None Selected Additional Instructions [facility] 1(283) 752-374209-20-2021 History of Present illness Narrative* 72 yo [...] spot of clear fluid fromthe neck periodically DM-Xpxunrbwvogael-Bltthkz Work Phone: 1([phone]) 584-968909-18-2021 History of Present illness Narrative* 72 yo [...] spot of clear fluid fromthe neck periodically [facility]ucd[facility]yuolnr[facility] Work Phone: Chief complaint Narrative - ReportedBRENDON DAVID is being seen for a cardiovascular evaluation . For surgical clearance. RE-Uhlraani-EuuzwegNorth [facility] [address] Work Phone: Evaluation noteNo assessment information available [facility] Work Phone: Evaluation note* Diagnosis Onset Date Resolution Status Hypertrophy of inferior nasal turbinate acute Nasal congestion acute Nasal septal deviation acute Chronic pansinusitis chronic [facility] Work Phone: Evaluation note* Diagnosis Inflammatory conditions of jaws documented in this encounter [facility] Work Phone: Evaluation note* Diagnosis Osteomyelitis of maxilla- Primary documented in this encounter [facility] Work Phone: Evaluation note* Diagnosis Other [...] diabetes mellitus with diabetic chronic kidney disease ([facility]) Obesity, unspecified Personal history of other venous thrombosis and embolism assistant terminal manager (current) use of anticoagulants Long-term (current) use of anticoagulants Unspecified osteoarthritis, unspecified site Spinal stenosis, lumbar region without neurogenic claudication Unspecified visual loss Chronic sinusitis, unspecified Personal history of COVID-19 assistant terminal manager (current) use of aspirin assistant terminal manager (current) use of oral hypoglycemic drugs documented in this encounter [facility] Work Phone: Evaluation note* Diagnosis Osteomyelitis of maxilla- Primary documented in this encounter [facility] Work Phone: Evaluation note* Diagnosis Actinomycosis, 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 documented in this encounter [facility] Work Phone: Evaluation note* Diagnosis Osteomyelitis of maxilla- Primary Actinomycosis, cervicofacial Cervicofacial actinomycotic infection documented in this encounter [facility] Work Phone: Evaluation note* Diagnosis Actinomycosis, cervicofacial- Primary Cervicofacial actinomycotic infection documented in this encounter [facility] Work Phone: Evaluation note* Diagnosis History of osteomyelitis- Primary Personal history of other musculoskeletal disorders documented in this encounter [facility] Work Phone: History of Present illness [...] Moves all extremities well without apparent deformities. UV-Zsuanzdpwbhxnp-FhmpkpuFirst Care Health Center 4100 Work Phone: History of Present [...] with instrumentation * patient tolerated this well [facility]-Octgeqsxtqamiv-Rracv 395 Work Phone: History of Present illness Narrative* He is here for surgical clearance for ENT surgery. * He denies fatigue, chest pain, palpitations, shortness of breath, dyspnea on exertion, orthopnea, PND, frequent headaches, dizziness, falls. * No edema noted in BLE. * EKG was [facility] today at [facility]. * PMHx: HTN, GERD, DVT TJ-Hojixmep-SyhmqubFirst Care Health Center [address] Work Phone: History of [...] with instrumentation * patient tolerated this well OX-Klguaimkgrpyuf-ZmytfcvFirst Care Health Center 4100 Work Phone: History of Present [...] with instrumentation * patient tolerated this well XA-Qngsmqdkrqqudd-LflvwnwFirst Care Health Center 4100 Work Phone: History of Present [...] CN II-XII grossly intact. No focal deficits. BY-Foqxqckoblzuvq-MlxrezlFirst Care Health Center 4100 Work Phone: History of Present [...] CN II-XII grossly intact. No focal deficits. OU-Adbtgvjviukqez-SsacbodFirst Care Health Center 4100 Work Phone: History of Present [...] CN II-XII grossly intact. No focal deficits. IE-Nhdzimupqxamnc-SeiuzvdFirst Care Health Center 4100 Work Phone: History of Present [...] CN II-XII grossly intact. No focal deficits. LQ-Fmmkbmcoelyzni-VbmfxcdFirst Care Health Center 8925 Work Phone: History of Present illness Narrative* [...] January 13 8:40 AM [facility] Work Phone: History of Present illness [...] January 13 8:40 AM [facility] Work Phone: Hospital Discharge instructions* Activity:activity [...] To: Dr. Dickson in ID office at [phone] * Additional Orders:Weight: weekly * Call Provider [...] to Face Encounter Completed: yesDate of Encounter: [id number] Necessity for Homecare(based on clinical findings): My clinical findings support the need for the following skilled services: Patient needs Retirement/RN needed to instruct patient/caregiver to perform wound care dressing changes and to monitor for signs and symptoms of infection or adverse effects; Retirement/RN needed to instruct patient/caregiver to perform daily [...] Referral: post opvisitScheduled Date/Time: 25-Nov-2022 14:45Location: [address] [facility] [address] [facility] [address] [place], [place] [address]Uyjay Number: [phone] with questionsComments: Please arrive 10-15 minutes early, bring photo ID, insurance information, and current list of medications. If unable to keep this appointment, please call to cancel at least 24 hours prior to appointment. * Follow Up Appointment 2:Physician/Dept/Service: Dr. Sadia Dickson - Infectious DiseaseReason for Referral: Hospital follow upScheduled Date/Time: 02-Jan-2023 10:20Location: [facility] [address] [address] [place], [place] [address]Dpnqksxf: Please arrive 10-15 minutes early, bring photo [...] continuous infusions. Maximum of 7 days for PRINCIPAL SYSTEMS ARCHITECT or other low infection risk therapies that [...] contraindicated. Line Site: LeftHomecare ONLY Lines: Adult [facility] Dis[facility] instructions Additional Instructions Follow-up with your physician at [facility] this morning as scheduled. [facility] Work Phone: Hospital Discharge instructions* Activity:activity [...] CRPDate To Be Drawn: weeklyFax Results To: [phone] attn: Dr. Dickson * Wound Care 1:Wound [...] Certification:Home Care Services Needed: yesSkilled Disciplines Ordered: RN/ANIMAL HOSPITAL CLERK, PT, OTFace to Face Encounter Completed: yesDate of Encounter: [id number] Necessity for Homecare (based on clinical findings): My clinical findings support the need for the following skilled services: Patient needs Physical Therapist to improve deconditioning, and to restore the ability to walk without support; Retirement/RN needed to instruct patient/caregiver to perform wound care; Retirement/RN needed to instruct patient/caregiver to perform daily [...] Referral: Post opflap checkScheduled Date/Time: 15-Dec-2022 12:30Location: [facility] [address]: [phone] with questionsComments: Please arrive 10-15minutes early, bring photo ID, insurance information, and current list of medications. If unable tokeep this appointment, please call to cancel at least 24 hours prior to appointment. * Follow Up Appointment 2:Physician/Dept/Service: Dr. Natividad Fields for Referral: post op visitScheduled Date/Time: 26-Dec-2022 13:15Location: [facility] [place] [address] [address] [place], [place] [address]Juwbu Number: [phone] with questionsComments: Please arrive 10-15 mi nutes early, bring photo ID, insurance information, and current list of medications. If unable to keep this appointment, please call to cancel at least 24 hours prior to appointment. * Follow Up Appointment 3:Physician/Dept/Service: Coumadin ClinicComments: Please arrange an appointment with your coumadin clinic for Thursday. * Coumadin (Warfarin) Follow-Up Monitoring:Follow-Up Monitoring Locations (Clinic): [facility] [address], [address] [address] JohnjohannThe [facility], [address], phone: [phone] #2 * PEG Tube Care:PEG Tube Care: [...] continuous infusions. Maximum of 7 days for PRINCIPAL SYSTEMS ARCHITECT or other low infection risk therapies that [...] contraindicated. Line Site: LeftHomecare ONLY Lines: Adult [facility] HospitalReason for referral (narrative)No reason for referral information availableWMercy Health St. [facility] Work Phone: Chief Complaint and Reason [...] Will No May 20 9:43am Power of Counter Intelligence Agent No May 20 021 9:43am Advance Directive Response Recorded Date/ Time Living Will No May 20 9:05am Power of Counter Intelligence Agent No May 20 022 9:05am Advance Directive Response Recorded Date/ Time Living Will No May 20 8:05am Power of Counter Intelligence Agent No May 20 8:05am Advance Directive Response Recorded Date/ Time Living Will No December 01, 2022 12:22am Power of Counter Intelligence Agent No December 01 12:22am Advance Directive Response Recorded Date/ Time Living Will No November 30, 2022 11:22pm Power of Counter Intelligence Agent No November 30 11:22pm Chief Complaint removed left chest wall drainFUVFUVfollow upfollow up Summary Purpose Reason for Referral Specialty Diagnoses / Procedures Referred By Contac t Referred To Contact Radiology Diagnoses Inflammatory conditions of jaws Procedures CT maxillofacial bones wo IV contrast CT maxillofacial bones w IV contrast CT maxillofacial bones w [place] [address] [place] [address] Referral ID Status Reason Start Date Expiration Date Visits Requested Visits Authorized [id number] Authorized Perform Procedure 05/15/2023 11/11/2023 1 1 [...] Active Dr. Rubens Sutherland MD Attending Provider, [facility] Provider Active Team Status: Inactive Member [...] Primary Care Provider, Attending P eris Active Shift Coordinator Relationship Specialty Start Date End Date Key Jasso MD [address] [place] [address] PCP - General 11/12/22 Shift Coordinator Relationship Specialty Start Date End Date Key Jasso MD [address] [place] [address] [place] [address] PCP - General 11/12/22 Shift Coordinator Relationship Specialty Start Date End Date Key Jasso MD [address] [place] [address] PCP - General 11/12/22 Team Status: Inactive Member Role Status Dates Dr. Key Jasso MD Primary Care Provide r, Attending Provider, Referring Provider Active Dr. Silas Garcia MD Other Provider Active Shift Coordinator Relationship Specialty Start Date End Date Key Jasso MD [address] [place] [address] PCP - General 11/12/22 Shift Coordinator Relationship Specialty Start Date End Date Key Jasso MD [address] [place] [address] PCP - General 11/12/22 Shift Coordinator Relationship Specialty Start Date End Date Key Jasso MD [address] [place] [address] PCP - General 11/12/22 Shift Coordinator Relationship Specialty Start Date End Date Key Jasso MD [address] [place] [address] PCP - General 11/12/22 Team Status: Active Member Role Status Dates Dr. Key Jasso MD Primary Care Provider Active Team Status: Inactive Member Role Status Dates Dr. Key Jsaso MD Primary Care Provider Active Start: October [...] the consent of such client. Section Author: rBeana Waldron PROHIBITION ON REDISCLOSURE OF CONFIDENTIAL INFORMATION [...] section and content) DATE CREATED AUTHOR 12/24/2022 [facility] DATE CREATED AUTHOR AUTHOR'S ORGANIZ ATION 05/05/2023 [facility] DATE CREATED AUTHOR AUTHOR'S ORGANIZ ATION 05/05/2023 [facility] DATE CREATED AUTHOR AUTHOR'S ORGANIZ ATION 07/07/2023 [facility] DATE CREATED AUTHOR AUTHOR'S ORGANIZ ATION 07/03/2024 [facility] DATE CREATED AUTHOR AUTHOR'S ORGANIZ ATION 10/04/2024 [facility] DATE CREATED AUTHOR AUTHOR'S ORGANIZ ATION [facility]20[facility] Reason for Visit (unrecogniz ed section and content) Specialty Diagnoses / Procedures Referred By Contac t Referred To Contact Radiology Diagnoses Inflammatory conditions of jaws Procedures CT maxillofacial bones wo IV contrast CT maxillofacial bones w IV contrast CT maxillofacial bones w [place] [address] [place] [address] Referral ID Status Reason Start Date Expiration Date Visits Requested Visits Authorized [id number] Authorized Perform Procedure 05/15/2023 11/11/2023 1 1 [...] BE BASED ON THE PRIMARY CLINICAL RECORDS. [employer] provides no warranty or guarantee of the accuracy or completeness of information in this document.
[2025-06-03] MEDS: 0.9% Normal Saline (1000mL) 1,000 ML 125 ML IV (22:39)
[2025-06-03] MEDS: 0.9% Saline Lock 10 ML Syringe IV (22:42)
[2025-06-04] VITALS (14 sets, daily range): BP systolic 98–132; BP diastolic 58–87; PULSE 77–85; RESP 16–22; TEMP 36.6–37.3; O2SAT 92–97
[2025-06-04] MEDS: 0.9% Saline Lock 10 ML Syringe IV ×4 (02:39→21:56)
[2025-06-04 04:40] LABS: Hematocrit 41.2 % (40-54); Hemoglobin 13.5 g/dL (13.0-16.5); Immature Granulocytes Count 0.200 X10^3/uL (0.0-0.0); Mean Corp Hgb Conc 32.8 g/dL (32-36); Mean Corpuscular Volume 96.0 fL (80-94); Mean Platelet Vol. 10.2 fl (6.2-12.0); NRBC Flagged by Analyzer 0 % (0-5); POSITIVE DIFFERENTIAL YES; Platelet Count 269 K/mm3 (150-450); RBC Distribution Width CV 14.3 % (11.6-14.6); RBC Distribution Width SD 50.5 fl (35.1-43.9); Red Blood Count 4.29 M/mm3 (4.6-6.2); White Blood Count 20.3 K/mm3 (4.4-11.0)
--- NOTE | 2025-06-04 05:00 | EKG12_ITS ---
Test Reason : AM EKG Blood Pressure : */* mmHG Vent. Rate : 82 BPM Atrial Rate : 82 BPM P-R Int : 148 ms QRS Dur : 84 ms QT Int : 354 ms P-R-T Axes : 11 -2 25 degrees QTcB Int : 413 ms Sinus rhythm with marked sinus arrhythmia Otherwise normal ECG Confirmed by TESSIE PIERSON, CARINE ([id number]), editor trade journal ZI JORGENSEN ([id number]) on 06/05/2025 6:58:29 AM Referred By: DINH Confirmed By: CARINE KURTZ MD
[2025-06-04 05:06] LABS: Differential Indicated SCAN CRITERIA MET
[2025-06-04 05:10] LABS: Prothrombin Time (Protime)PT. 23.7 SECONDS (11.7-14.9)
[2025-06-04 05:15] LABS: AST(SGOT) 27 U/L (<=37); Alanine Aminotransfer ALT/SGPT 18 U/L (<=46); Albumin, Serum 3.4 g/dL (3.4-4.8); Alkaline Phosphatase 77 U/L (40-129); Anion Gap 12 (5-15); BUN 29 mg/dL (4-19); BUN/Creat Ratio 17.6 RATIO (10-20); Calcium,Total 9.3 mg/dL (7.6-11.0); Carbon Dioxide 20.9 mmol/L (21.0-32.0); Chloride 103 mmol/L (98-108); Estimated Creatinine Clearance 54.75 ml/min (50-250); Globulin 3.2 g/dL (2.2-4.2); Glucose 253 mg/dL (70-99); Potassium 4.3 mmol/L (3.3-5.1)
[2025-06-04 06:13] LABS: Differential Comment SCANNED
[2025-06-04] MEDS: Piperacil/Tazobactam 3.375 GM in 0.9% Normal Saline (50mL MB+) 50 ML IV ×3 (06:14→21:33)
[2025-06-04] MEDS: 0.9% Normal Saline (1000mL) 1,000 ML 125 ML IV (06:17)
--- NOTE | 2025-06-04 07:25 | US_ITS ---
PROCEDURE: GALLBLADDER 06/04/2025 REASON FOR EXAM: RIGHT UPPER QUADRANT PAIN TECHNIQUE: Procedure Code: USGB Modality: US Procedure: GALLBLADDER COMPARISON: 06/03/2025 CT FINDINGS: Liver: Patchy regions of echogenic parenchyma consistent with fatty infiltration, and measures 18.4 cm. No intrahepatic biliary ductal dilatation. Color flow documented in hepatic vessels. Gallbladder: Distended and measures 12.9 cm. Gallbladder wall measures 0.8 cm. Positive sonographic Moreno sign. There is a small amount of pericholecystic fluid. Intraluminal sludge and multiple small gallstones. So-called tumefactive sludge adheres to the gallbladder wall. Common bile duct: 0.6 cm Pancreas: Not visualized Other: Right kidney is within normal limits and measures 11.4 x 4.9 x 5.4 cm. US/Gallbladder IMPRESSION: Sonographic evidence of acute cholecystitis. So-called tumefactive sludge adhe res to the gallbladder wall. Reading Location: [id number]
--- NOTE | 2025-06-04 07:32 | PN.HOSP_ITS ---
Reason for Visit Chief Complaint: abdominal pain Objective Data Objective Data Vital Signs: Vital Signs Temp Pulse Resp BP Pulse Ox O2 Del Method O2 Flow Rate 98.1 F 77 22 H 123/68 H 92 Room Air 2 06/04/25 02:32 06/04/25 02:32 06/04/25 02:32 06/04/25 02:32 06/04/25 02:32 06/04/25 02:35 06/03/25 19:31 Oxygen Flow Rate (L/min) 2 Oxygen Delivery Method Room Air Weight: 263 lb Body Mass Index (BMI) 34.7 Intake & Output: Intake and Output for Last 24 Hours 06/02/25 06/03/25 06/04/25 23:59 23:59 23:59 Intake Total 1050 / 1050 954.17 / 954.17 Balance 1050 / 1050 954.17 / 954.17 Lab / Micro Data 06/04/25 03:42 06/04/25 03:42 Labs: Laboratory Results - last 24 hr 06/03/25 15:05: WBC 16.7 H, RBC 4.76, Hgb 15.2, Hct 45.5, MCV 95.6 H, MCH 31.9, MCHC 33.4, RDW Std Deviation 49.8 H, RDW Coeff of Geovanna 14.1, Plt Count 301, MPV 9.7, Immature Gran % (Auto) 0.700, Neut % (Auto) 88.4 H, Lymph % (Auto) 2.7 L, [place] % (Auto) 8.0, Eos % (Auto) 0.0, Baso % (Auto) 0.2, Absolute Neuts (auto) 14.7 H, Absolute Lymphs (auto) 0.45 L, Nucleated RBC % 0, PT 22.1 H, INR 1.9, Sodium 136, Potassium 4.5, Chloride 99, Carbon Dioxide 23.6, Anion Gap 13, BUN 28 H, Creatinine 1.67 H, Estim Creat Clear Calc 55.12, Est GFR (MDRD) Non-Af 43 L, BUN/Creatinine Ratio 16.6, Glucose 235 H, Calcium 9.9, Total Bilirubin 1.24, AST 23, ALT 19, Alkaline Phosphatase 80, Total Protein 7.4, Albumin 3.9, Globulin 3.5, Albumin/Globulin Ratio 1.1 06/03/25 15:10: Urine Color Yellow, Urine Clarity Clear, Urine pH 5.0, Ur Specific [place] 1.020, Urine Protein 30 H, Urine Glucose (UA) 1000 H, Urine Ketones Negative, Urine Occult Blood 10 H, Urine Nitrite Negative, Urine Bilirubin Negative, Urine Urobilinogen Normal, Ur Leukocyte Esterase Negative, Urine RBC 0 SEEN, Urine WBC 0 SEEN, Ur Squamous Epith Cells 0 SEEN, Urine Bacteria 0 SEEN, Urine Mucus 0 SEEN 06/03/25 23:57: POC Glucose 266 H 06/04/25 03:42: WBC 20.3 H, RBC 4.29 L, Hgb 13.5, Hct 41.2, MCV 96.0 H, MCH 31.5, MCHC 32.8, RDW Std Deviation 50.5 H, RDW Coeff of Geovanna 14.3, Plt Count 269, MPV 10.2, Immature Gran % (Auto) 1.000 H, Neut % (Auto) 88.2 H, Lymph % (Auto) 2.5 L, [place] % (Auto) 8.2, Eos % (Auto) 0.0, Baso % (Auto) 0.1, Absolute Neuts (auto) 17.9 H, Absolute Lymphs (auto) 0.51 L, Nucleated RBC % 0, Differential Comment SCANNED, PT 23.7 H, INR 2.1, Sodium 136, Potassium 4.3, Chloride 103, C arbon Dioxide 20.9 L, Anion Gap 12, BUN 29 H, Creatinine 1.65 H, Estim Creat Clear Calc 54.75, Est GFR (MDRD) Non-Af 44 L, BUN/Creatinine Ratio 17.6, Glucose 253 H, Hemoglobin A1c 6.8 H, Calcium 9.3, Total Bilirubin 1.11, AST 27, ALT 18, Alkaline Phosphatase 77, Total Protein 6.7, Albumin 3.4, Globulin 3.2, Albumin/Globulin Ratio 1.1, TSH 2.730 06/04/25 06:13: POC Glucose 226 H Radiography Diagnostic Testing: Radiology Impression Abdomen/Pelvis CT 06/03/25 14:47 IMPRESSION: 1. Acute cholecystitis. No biliary ductal dilatation. 2. Epiploic appendagitis of the descending colon the left midabdomen. 3. Diffuse hepatic steatosis. Ancillary findings as noted above. Reading Location: [facility] Chest X-Ray 06/03/25 19:51 IMPRESSION: Shallow inspiration with bibasilar atelectasis. Reading Location: [facility] Assessment & Plan Assessment/Plan (1) Acute cholecystitis: PLAN: Plan #Acute cholecystitis * admitted with a complaint of epigastric and RUQ pain. No nausea vomiting diarrhea * CT abdomen adn pelvis showed acute cholecystitis with no biliary ductal dilatation and epiploic appendagitis of the descending colon of the left midabdomen with diffuse hepatic steatosis * Admit to [facility]. Hold Coumadin. INR is 1.9. * Get blood cultures. Started on IV Zosyn in the ED. Will continue. P.o. Tylenol, IV morphine and p.o. oxycodone as needed for pain. * Hydrate with IV fluid normal saline at 150 cc/h. General surgery consulted. * wbc is 16.7 06/04: Leukocytosis increased 20.3, predominantly neutrophils 88.2%, lymphocyte 2.2%, immature granulocyte 1% suggestive of left shift. #Hypoxia * currently on 2L of oxygen. does not wear xygen at home. Due to patient taking in shallow breaths due to abdominal pain. * CXR showed evidence of atelectasis and evidence of shallow inspiration with bibasilar atelectasis. * encourage incentive spirometry use * breathing treatment with bronchodilators * titrate oxygen to maintain sats >90% * #History of venous thromboembolism: On Coumadin. INR is 1.9. Will hold Coumadin as he may hve surgery tomorrow. INR 2.1. #Hypertension: On atenolol and spironolactone as well as losartan and hydralazine. #Hypothyroidism: on synthroid. #Hyperlipidemia: On atorvastatin and Vascepa #Type 2 diabetes mellitus: Hold glimepiride and Actos. Insulin sliding scale. Accu-Cheks ACHS. Also hold pioglitazone CKD stage IIIa: Patient admitted with BUN/creatinine 28/1.67, BUN/creatinine ratio 16.6. Today creatinine 1.65 no major change. Recently his creatinine has been 2.0 in February 2025 DVT prophylaxis: hold coumadin. INR is 1.9. SCDs Code status: full code * Patient counseled extensively about different types of CODE STATUS including full code, DNR CCA and DNR CCA. Patient elects to be full code. * Total [id number] time 16 minutes.
--- NOTE | 2025-06-04 07:32 | PCM.PN.HOSP ---
Reason for Visit Chief Complaint: abdominal pain Objective Data Objective Data Vital Signs: Vital Signs Temp Pulse Resp BP Pulse Ox O2 Del Method O2 Flow Rate 98.1 F 77 22 H 123/68 H 92 Room Air 2 06/04/25 02:32 06/04/25 02:32 06/04/25 02:32 06/04/25 02:32 06/04/25 02:32 06/04/25 02:35 06/03/25 19:31 Oxygen Flow Rate (L/min) 2 Oxygen Delivery Method Room Air Weight: 263 lb Body Mass Index (BMI) 34.7 Intake & Output: Intake and Output for Last 24 Hours 06/02/25 06/03/25 06/04/25 23:59 23:59 23:59 Intake Total 1050 / 1050 954.17 / 954.17 Balance 1050 / 1050 954.17 / 954.17 Lab / Micro Data 06/04/25 03:42 06/04/25 03:42 Labs: Laboratory Results - last 24 hr 06/03/25 15:05: WBC 16.7 H, RBC 4.76, Hgb 15.2, Hct 45.5, MCV 95.6 H, MCH 31.9, MCHC 33.4, RDW Std Deviation 49.8 H, RDW Coeff of Geovanna 14.1, Plt Count 301, MPV 9.7, Immature Gran % (Auto) 0.700, Neut % (Auto) 88.4 H, Lymph % (Auto) 2.7 L, [place] % (Auto) 8.0, Eos % (Auto) 0.0, Baso % (Auto) 0.2, Absolute Neuts (auto) 14.7 H, Absolute Lymphs (auto) 0.45 L, Nucleated RBC % 0, PT 22.1 H, INR 1.9, Sodium 136, Potassium 4.5, Chloride 99, Carbon Dioxide 23.6, Anion Gap 13, BUN 28 H, Creatinine 1.67 H, Estim Creat Clear Calc 55.12, Est GFR (MDRD) Non-Af 43 L, BUN/Creatinine Ratio 16.6, Glucose 235 H, Calcium 9.9, Total Bilirubin 1.24, AST 23, ALT 19, Alkaline Phosphatase 80, Total Protein 7.4, Albumin 3.9, Globulin 3.5, Albumin/Globulin Ratio 1.1 06/03/25 15:10: Urine Color Yellow, Urine Clarity Clear, Urine pH 5.0, Ur Specific [place] 1.020, Urine Protein 30 H, Urine Glucose (UA) 1000 H, Urine Ketones Negative, Urine Occult Blood 10 H, Urine Nitrite Negative, Urine Bilirubin Negative, Urine Urobilinogen Normal, Ur Leukocyte Esterase Negative, Urine RBC 0 SEEN, Urine WBC 0 SEEN, Ur Squamous Epith Cells 0 SEEN, Urine Bacteria 0 SEEN, Urine Mucus 0 SEEN 06/03/25 23:57: POC Glucose 266 H 06/04/25 03:42: WBC 20.3 H, RBC 4.29 L, Hgb 13.5, Hct 41.2, MCV 96.0 H, MCH 31.5, MCHC 32.8, RDW Std Deviation 50.5 H, RDW Coeff of Geovanna 14.3, Plt Count 269, MPV 10.2, Immature Gran % (Auto) 1.000 H, Neut % (Auto) 88.2 H, Lymph % (Auto) 2.5 L, [place] % (Auto) 8.2, Eos % (Auto) 0.0, Baso % (Auto) 0.1, Absolute Neuts (auto) 17.9 H, Absolute Lymphs (auto) 0.51 L, Nucleated RBC % 0, Differential Comment SCANNED, PT 23.7 H, INR 2.1, Sodium 136, Potassium 4.3, Chloride 103, Carbon Dioxide 20.9 L, Anion Gap 12, BUN 29 H, Creatinine 1.65 H, Estim Creat Clear Calc 54.75, Est GFR (MDRD) Non-Af 44 L, BUN/Creatinine Ratio 17.6, Glucose 253 H, Hemoglobin A1c 6.8 H, Calcium 9.3, Total Bilirubin 1.11, AST 27, ALT 18, Alkaline Phosphatase 77, Total Protein 6.7, Albumin 3.4, Globulin 3.2, Albumin/Globulin Ratio 1.1, TSH 2.730 06/04/25 06:13: POC Glucose 226 H Radiography Diagnostic Testing: Radiology Impression Abdomen/Pelvis CT 06/03/25 14:47 IMPRESSION: 1. Acute cholecystitis. No biliary ductal dilatation. 2. Epiploic appendagitis of the descending colon the left midabdomen. 3. Diffuse hepatic steatosis. Ancillary findings as noted above. Reading Location: [facility] Chest X-Ray 06/03/25 19:51 IMPRESSION: Shallow inspiration with bibasilar atelectasis. Reading Location: [facility] Physical Exam Narrative Seen and examined. Patient undergoing bedside right upper quadrant sonogram. He states he has abdominal pain predominantly right upper quadrant started on Thursday evening/night. Denies nausea vomiting. Denies fever but felt a little cold. His last BM was also Thursday evening but passing flatus. Physical exam General: Alert, Oriented x3, Cooperative HEENT: Atraumatic, PERRLA, EOMI, Normocephalic. Oral: No Gingival or Mucosal Lesions/ Ulcerations Neck: Supple, No JVD, Negative Carotid Bruits Chest wall/Lungs: Air entry diminished in bilateral lung bases. No crepitation/rhonchi Cardiovascular: Regular rate and rhythm, Normal S1,S2, No M/G/R Abdomen: Bowel Sounds sluggish, Soft, tenderness over right upper quadrant/epigastrium. No distention : No dysuria. No renal angle tenderness. No suprapubic tenderness. Extremities: No edema, Capillary Refill Less than 3 Seconds Skin: No rashes, No breakdown Musculoskeletal: No Tenderness to Palpation of Joints or Extremities Neurological: Cranial nerves II-XII grossly intact, DTR 2+/4. No acute focal neurological deficit. Psych/Mental Status: Flat affect due to pain. Assessment & Plan Assessment/Plan (1) Acute cholecystitis: PLAN: Plan 74-year-old gentleman was admitted with RUQ pain. Never had similar pain in the past. #Acute cholecystitis: CT abdomen and pelvis showed individually reviewed acute cholecystitis with no biliary ductal dilatation and epiploic appendagitis of the descending colon of the left midabdomen with diffuse hepatic steatosis The patient is being admitted in [facility]. Hold Coumadin. INR is 1.9. Get blood cultures. Started on IV Zosyn in the ED. on IV Zosyn, pain medication and symptomatic management. Was hydrated with IV fluid. General surgery consulted. wbc is 16.7 06/04: Leukocytosis increased 20.3K, predominantly neutrophils 88.2%, lymphocyte 2.2%, immature granulocyte 1% suggestive of left shift. Discussed with Dr. Jacob. Right upper quadrant sonogram is done not reported. Acute cholecystitis with cholelithiasis. Continue antibiotic, vitamin K 10 mg and 2 units of FFP. Plan for surgery tomorrow #Hypoxia currently on 2L of oxygen. does not wear xygen at home. Due to patient taking in shallow breaths due to abdominal pain. CXR showed evidence of atelectasis and evidence of shallow inspiration with bibasilar atelectasis. encourage incentive spirometry use breathing treatment with bronchodilators titrate oxygen to maintain sats >90% #History of venous thromboembolism: On Coumadin. INR is 1.9. Will hold Coumadin as he may hve surgery tomorrow. 06/04: INR 2.1. As mentioned above vitamin K and FFP today. #Hypertension: On atenolol and spironolactone as well as losartan and hydralazine. #Hypothyroidism: on synthroid. #Hyperlipidemia: On atorvastatin and Vascepa #Type 2 diabetes mellitus: Hold glimepiride and Actos. Also hold pioglitazone Glucose 226, 253 in BMP. A1c 6.8%. Lantus 10 unit subcutaneous daily ordered. Accu-Chek before meals and at bedtime with Humalog sliding scale coverage and hypoglycemia protocol. UA WBC 0, protein 30 glucose 1000. Denies symptoms of dysuria or acute lower urinary tract symptoms. UA, microscopic analysis normal CKD stage IIIa: Patient admitted with BUN/creatinine 28/1.67, BUN/creatinine ratio 16.6. Today creatinine 1.65 no major change. Recently his creatinine has been 2.0 in February 2025 DVT prophylaxis: hold coumadin. 06/04: INR 2.1 today Code status: full code Patient counseled extensively about different types of CODE STATUS including full code, DNR CCA and DNR CCA. Patient elects to be full code. Laboratory Results 06/03/25 15:05: WBC 16.7 H, RBC 4.76, Hgb 15.2, Hct 45.5, MCV 95.6 H, MCH 31.9, MCHC 33.4, RDW Std Deviation 49.8 H, RDW Coeff of Geovanna 14.1, Plt Count 301, MPV 9.7, Immature Gran % (Auto) 0.700, Neut % (Auto) 88.4 H, Lymph % (Auto) 2.7 L, [place] % (Auto) 8.0, Eos % (Auto) 0.0, Baso % (Auto) 0.2, Absolute Neuts (auto) 14.7 H, Absolute Lymphs (auto) 0.45 L, Nucleated RBC % 0, PT 22.1 H, INR 1.9, Sodium 136, Potassium 4.5, Chloride 99, Carbon Dioxide 23.6, Anion Gap 13, BUN 28 H, Creatinine 1.67 H, Estim Creat Clear Calc 55.12, Est GFR (MDRD) Non-Af 43 L, BUN/Creatinine Ratio 16.6, Glucose 235 H, Calcium 9.9, Total Bilirubin 1.24, AST 23, ALT 19, Alkaline Phosphatase 80, Total Protein 7.4, Albumin 3.9, Globulin 3.5, Albumin/Globulin Ratio 1.1 06/03/25 15:10: Urine Color Yellow, Urine Clarity Clear, Urine pH 5.0, Ur Specific [place] 1.020, Urine Protein 30 H, Urine Glucose (UA) 1000 H, Urine Ketones Negative, Urine Occult Blood 10 H, Urine Nitrite Negative, Urine Bilirubin Negative, Urine Urobilinogen Normal, Ur Leukocyte Esterase Negative, Urine RBC 0 SEEN, Urine WBC 0 SEEN, Ur Squamous Epith Cells 0 SEEN, Urine Bacteria 0 SEEN, Urine Mucus 0 SEEN 06/03/25 23:57: POC Glucose 266 H 06/04/25 03:42: WBC 20.3 H, RBC 4.29 L, Hgb 13.5, Hct 41.2, MCV 96.0 H, MCH 31.5, MCHC 32.8, RDW Std Deviation 50.5 H, RDW Coeff of Geovanna 14.3, Plt Count 269, MPV 10.2, Immature Gran % (Auto) 1.000 H, Neut % (Auto) 88.2 H, Lymph % (Auto) 2.5 L, [place] % (Auto) 8.2, Eos % (Auto) 0.0, Baso % (Auto) 0.1, Absolute Neuts (auto) 17.9 H, Absolute Lymphs (auto) 0.51 L, Nucleated RBC % 0, Differential Comment SCANNED, PT 23.7 H, INR 2.1, Sodium 136, Potassium 4.3, Chloride 103, Carbon Dioxide 20.9 L, Anion Gap 12, BUN 29 H, Creatinine 1.65 H, Estim Creat Clear Calc 54.75, Est GFR (MDRD) Non-Af 44 L, BUN/Creatinine Ratio 17.6, Glucose 253 H, Hemoglobin A1c 6.8 H, Calcium 9.3, Total Bilirubin 1.11, AST 27, ALT 18, Alkaline Phosphatase 77, Total Protein 6.7, Albumin 3.4, Globulin 3.2, Albumin/Globulin Ratio 1.1, TSH 2.730 06/04/25 06:13: POC Glucose 226 H 06/04/25 08:20: Blood Type A POSITIVE Clinical Impression(s) from Imaging Studies Abdomen/Pelvis CT 06/03/25 14:47 IMPRESSION: 1. Acute cholecystitis. No biliary ductal dilatation. 2. Epiploic appendagitis of the descending colon the left midabdomen. 3. Diffuse hepatic steatosis. Ancillary findings as noted above. Reading Location: [id number] Chest X-Ray 06/03/25 19:51 IMPRESSION: Shallow inspiration with bibasilar atelectasis. Reading Location: [id number] Charges/Coding Visit Charges Inpatient E&M: 82450 Subs Hosp L2
--- NOTE | 2025-06-04 09:16 | NURSING ---
Leslee from radiology called aware that Dr. Jacob would like the ultrasound completed as soon as possible. Leslee states she will notify ultrasound.
--- NOTE | 2025-06-04 09:29 | EX.PCM.CON.S ---
Assessment & Plan Assessment/Plan (1) Acute cholecystitis: (2) Chronic anticoagulation: PLAN: Plan Did review patient's imaging and labs personally. Ultrasounds pending for this morning as well as FFP currently going in. INR currently 2.1 Once reviewed also will determine laparoscopic cholecystectomy versus cholecystostomy tube. Did discuss the procedure of a laparoscopic cholecystectomy, possible subtotal cholecystectomy with drain placement with the patient. Reviewed the anatomy with the patient and discussed the procedure: laparoscopic cholecystectomy with possible cholangiograms, possible open. Review risks including but not limited to bleeding, infection, hernia, bile leak, retained gallstones requiring another procedure ERCP- Endoscopic Retrograde Cholangiopancreatography, injury to another organ (bile ducts, common bile duct, small bowel, etc.) and conversion to an open procedure. All questions were answered. Anny Jacob M.D. Pager: [phone] [facility] [address] [place] [address], [address] [place] [id number] Office: [phone] HPI Consult Data Date of Consult: 06/05/25 HPI Narrative HPI Narrative: BRENDON DAVID, is a 74 M who presented to the ER due to right sided abdominal pain about 4 PM 06/02 which progressively got worse and patient came to the ER 06/03. Patient had CT abdomen pelvis showed acute cholecystitis. Patient is on warfarin due to history of DVT. 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 Patient is also diabetic but his last A1c was in the 6s. Patient's INR was 1.9 up to 2.1 this morning. Patient's white blood count was 16 up to 20 this morning. Patient is on IV Zosyn and in the ER. FFP and vitamin K are currently ordered as well as an ultrasound. [facility] Medical History Wears glasses Non-smoker CPAP (continuous positive airway pressure) dependence Sleep apnea Hypertension DVT (deep venous thrombosis) Non-ST elevation CO (NSTEMI) COVID-19 DVT (deep venous thrombosis) Diabetes HLD (hyperlipidemia) Type II diabetes mellitus Benign essential hypertension Home Medications ?Medication ?Instructions ?Recorded ?Last Taken ?Type acarbose 100 mg tablet (Precose) 100 mg PO BID . 11/12/16 05/20/19 History atenolol 50 mg tablet 50 mg PO BID BLOOD PRESSURE 11/12/16 05/20/19 History losartan 100 mg tablet 100 mg PO QHS BP 11/12/16 05/19/19 History cinnamon bark 500 mg capsule 500 mg PO BID . 05/20/19 05/20/19 History furosemide 20 mg tablet 20 mg PO DAILY WATER PILL 05/20/19 05/20/19 History glimepiride 4 mg tablet 4 mg PO BID dm 05/20/19 05/20/19 History warfarin 5 mg tablet 4 mg PO DAILY HX DVT 05/20/19 05/19/19 History ascorbic acid (vitamin C) 1,000 mg 1 g PO DAILY . 05/08/21 Unknown History tablet (Vitamin C) cholecalciferol (vitamin D3) 25 50 mcg PO DAILY REPLACEMENT 05/08/21 Unknown History mcg (1,000 unit) capsule (Vitamin D3) multivitamin 1 tab PO DAILY SUPPLEMENT 05/08/21 Unknown History pioglitazone 30 mg tablet 15 mg PO DAILY . 05/08/21 Unknown History atorvastatin 20 mg tablet 20 mg PO QHS CHOLESTEROL #30 tabs 05/15/21 Unknown Rx tirzepatide 10 mg/0.5 mL 10 mg subcut QWEEK DM 01/05/25 Unknown History subcutaneous pen injector (Bibiro) alpha lipoic acid 600 mg capsule 600 mg PO BID . 06/03/25 Unknown History finerenone 20 mg tablet (Kerendia) 20 mg PO DAILY . 06/03/25 Unknown History hydralazine 50 mg tablet 50 mg PO QHS BP 06/03/25 Unknown History levothyroxine 50 mcg tablet 50 mcg PO DAILY THY 06/03/25 Unknown History Allergy/AdvReac Type Severity Reaction Status Date / Time No Known Allergies Allergy Verified 06/03/25 14:01 Family History Father Heart disease Mother CVA (cerebral vascular accident) Surgical History History of surgical procedure on mouth Hx of tonsillectomy History of back surgery Social History Smoking Status: Never smoker substance use type: does not use ROS Constitutional Constitutional: Reports anorexia Eyes Eyes: Denies blurry vision ENT HEENT: Denies dysphagia Cardiovascular Cardiovascular: Denies chest pain Respiratory/Chest Respiratory/Chest: Denies cough Gastrointestinal Gastrointestinal: Reports abdominal pain and nausea Genitourinary Genitourinary: Denies hematuria Musculoskeletal Musculoskeletal: Reports back pain Integumentary Integumentary: Denies jaundice Neurologic Neurologic: Denies loss of vision Psychiatric Psychiatric: Denies anxiety Endocrine Endocrinology: Denies palpitations Hematologic/Lymphatic Hematologic/Lymphatic: Reports easy bruising Physical Exam Const alert, oriented x3 and no apparent distress HEENT normocephalic and head/scalp atraumatic Resp normal respiratory effort Cardio regular rate GI soft to palpation; Negative for non-distended Palpation: tender RUQ and Moreno's sign; Negative for guarding Extremity no clubbing, cyanosis or edema Neuro CN's II-XII intact bilaterally Psych mental status grossly normal Lab / Micro Data 06/05/25 05:22 06/05/25 05:22 Labs: Laboratory Results - last 24 hr 06/03/25 15:05: WBC 16.7 H, RBC 4.76, Hgb 15.2, Hct 45.5, MCV 95.6 H, MCH 31.9, MCHC 33.4, RDW Std Deviation 49.8 H, RDW Coeff of Geovanna 14.1, Plt Count 301, MPV 9.7, Immature Gran % (Auto) 0.700, Neut % (Auto) 88.4 H, Lymph % (Auto) 2.7 L, [place] % (Auto) 8.0, Eos % (Auto) 0.0, Baso % (Auto) 0.2, Absolute Neuts (auto) 14.7 H, Absolute Lymphs (auto) 0.45 L, Nucleated RBC % 0, PT 22.1 H, INR 1.9, Sodium 136, Potassium 4.5, Chloride 99, Carbon Dioxide 23.6, Anion Gap 13, BUN 28 H, Creatinine 1.67 H, Estim Creat Clear Calc 55.12, Est GFR (MDRD) Non-Af 43 L, BUN/Creatinine Ratio 16.6, Glucose 235 H, Calcium 9.9, Total Bilirubin 1.24, AST 23, ALT 19, Alkaline Phosphatase 80, Total Protein 7.4, Albumin 3.9, Globulin 3.5, Albumin/Globulin Ratio 1.1 06/03/25 15:10: Urine Color Yellow, Urine Clarity Clear, Urine pH 5.0, Ur Specific [place] 1.020, Urine Protein 30 H, Urine Glucose (UA) 1000 H, Urine Ketones Negative, Urine Occult Blood 10 H, Urine Nitrite Negative, Urine Bilirubin Negative, Urine Urobilinogen Normal, Ur Leukocyte Esterase Negative, Urine RBC 0 SEEN, Urine WBC 0 SEEN, Ur Squamous Epith Cells 0 SEEN, Urine Bacteria 0 SEEN, Urine Mucus 0 SEEN 06/03/25 23:57: POC Glucose 266 H 06/04/25 03:42: WBC 20.3 H, RBC 4.29 L, Hgb 13.5, Hct 41.2, MCV 96.0 H, MCH 31.5, MCHC 32.8, RDW Std Deviation 50.5 H, RDW Coeff of Geovanna 14.3, Plt Count 269, MPV 10.2, Immature Gran % (Auto) 1.000 H, Neut % (Auto) 88.2 H, Lymph % (Auto) 2.5 L, [place] % (Auto) 8.2, Eos % (Auto) 0.0, Baso % (Auto) 0.1, Absolute Neuts (auto) 17.9 H, Absolute Lymphs (auto) 0.51 L, Nucleated RBC % 0, Differential Comment SCANNED, PT 23.7 H, INR 2.1, Sodium 136, Potassium 4.3, Chloride 103, Carbon Dioxide 20.9 L, Anion Gap 12, BUN 29 H, Creatinine 1.65 H, Estim Creat Clear Calc 54.75, Est GFR (MDRD) Non-Af 44 L, BUN/Creatinine Ratio 17.6, Glucose 253 H, Hemoglobin A1c 6.8 H, Calcium 9.3, Total Bilirubin 1.11, AST 27, ALT 18, Alkaline Phosphatase 77, Total Protein 6.7, Albumin 3.4, Globulin 3.2, Albumin/Globulin Ratio 1.1, TSH 2.730 06/04/25 06:13: POC Glucose 226 H 06/04/25 08:20: Blood Type A POSITIVE Imaging Radiology Impression Abdomen/Pelvis CT 06/03/25 14:47 IMPRESSION: 1. Acute cholecystitis. No biliary ductal dilatation. 2. Epiploic appendagitis of the descending colon the left midabdomen. 3. Diffuse hepatic steatosis. Ancillary findings as noted above. Reading Location: [id number] Chest X-Ray 06/03/25 19:51 IMPRESSION: Shallow inspiration with bibasilar atelectasis. Reading Location: [id number] Charges/Coding Visit Charges Inpatient E&M: 13993 Init Hosp L3
[2025-06-04] MEDS: 0.9% Normal Saline (500mL Bag) 500 ML 15 ML IV ×2 (10:49→18:35)
[2025-06-04] MEDS: Phytonadione (Vit K) 10 MG in 0.9% Normal Saline (50mL Bag) 50 ML 150 MG IV (13:13)
[2025-06-04 15:06] LABS: Prothrombin Time (Protime)PT. 20.5 SECONDS (11.7-14.9)
[2025-06-04 21:33] LABS: Prothrombin Time (Protime)PT. 18.7 SECONDS (11.7-14.9)
[2025-06-05] VITALS (21 sets, daily range): BP systolic 84–110; BP diastolic 44–69; PULSE 76–86; RESP 16–19; TEMP 36.3–37.2; O2SAT 90–96; BMI 34.7
[2025-06-05] MEDS: 0.9% Saline Lock 10 ML Syringe IV ×3 (04:54→21:24)
[2025-06-05] MEDS: Piperacil/Tazobactam 3.375 GM in 0.9% Normal Saline (50mL MB+) 50 ML IV ×3 (05:00→21:21)
[2025-06-05 05:30] LABS: Hematocrit 35.0 % (40-54); Hemoglobin 11.4 g/dL (13.0-16.5); Immature Granulocytes Count 0.150 X10^3/uL (0.0-0.0); Mean Corp Hgb Conc 32.6 g/dL (32-36); Mean Corpuscular Volume 96.4 fL (80-94); Mean Platelet Vol. 9.2 fl (6.2-12.0); NRBC Flagged by Analyzer 0 % (0-5); POSITIVE DIFFERENTIAL YES; Platelet Count 236 K/mm3 (150-450); RBC Distribution Width CV 14.4 % (11.6-14.6); RBC Distribution Width SD 50.7 fl (35.1-43.9); Red Blood Count 3.63 M/mm3 (4.6-6.2); White Blood Count 14.2 K/mm3 (4.4-11.0)
[2025-06-05 05:39] LABS: Prothrombin Time (Protime)PT. 18.8 SECONDS (11.7-14.9)
[2025-06-05 05:40] LABS: Partial Thromboplast Time 36.0 Seconds (24.1-36.2)
[2025-06-05 05:52] LABS: AST(SGOT) 44 U/L (<=37); Alanine Aminotransfer ALT/SGPT 32 U/L (<=46); Albumin, Serum 3.1 g/dL (3.4-4.8); Alkaline Phosphatase 98 U/L (40-129); Anion Gap 12 (5-15); BUN 37 mg/dL (4-19); BUN/Creat Ratio 18.1 RATIO (10-20); Bilirubin, Direct 1.28 mg/dL (0.00-0.30); Calcium,Total 8.7 mg/dL (7.6-11.0); Carbon Dioxide 21.1 mmol/L (21.0-32.0); Chloride 107 mmol/L (98-108); Estimated Creatinine Clearance 43.64 ml/min (50-250); Globulin 2.9 g/dL (2.2-4.2); Glucose 119 mg/dL (70-99); Potassium 4.1 mmol/L (3.3-5.1)
--- NOTE | 2025-06-05 07:22 | PN.SURG_ITS ---
Subjective Subjective Patient's INR is 1.5. Plan for cholecystostomy today in radiology Objective Data Objective Data Vital Signs: Vital Signs Temp Pulse Resp BP Pulse Ox O2 Del Method O2 Flow Rate 98.5 F 82 16 110/58 L 94 Nasal Cannula 2 06/05/25 04:45 06/05/25 04:45 06/05/25 04:45 06/05/25 04:45 06/05/25 04:45 06/05/25 04:45 06/05/25 04:45 Oxygen Flow Rate (L/min) 2 Oxygen Delivery Method Nasal Cannula Weight: 263 lb Body Mass Index (BMI) 34.7 Intake & Output: Intake and Output for Last 24 Hours 06/03/25 06/04/25 06/05/25 23:59 23:59 23:59 Intake Total 1050 / 1050 2965.38 / 3065.38 150 / 150 Balance 1050 / 1050 2965.38 / 3065.38 150 / 150 Lab / Micro Data 06/05/25 05:22 06/05/25 05:22 Labs: Laboratory Results - last 24 hr 06/04/25 08:20: Blood Type A POSITIVE 06/04/25 11:47: POC Glucose 179 H 06/04/25 14:50: PT 20.5 H, INR 1.7 06/04/25 18:31: POC Glucose 172 H 06/04/25 21:18: PT 18.7 H, INR 1.5 06/05/25 00:19: POC Glucose 138 H 06/05/25 05:22: WBC 14.2 H, RBC 3.63 L, Hgb 11.4 L, Hct 35.0 L, MCV 96.4 H, MCH 31.4, MCHC 32.6, RDW Std Deviation 50.7 H, RDW Coeff of Geovanna 14.4, Plt Count 236, MPV 9.2, Immature Gran % (Auto) 1.100 H, Neut % (Auto) 86.5 H, Lymph % (Auto) 3.8 L, [place] % (Auto) 7.3, Eos % (Auto) 1.2, Baso % (Auto) 0.1, Absolute Neuts (auto) 12.2 H, Absolute Lymphs (auto) 0.54 L, Nucleated RBC % 0, PT 18.8 H, INR 1.5, APTT 36.0, Sodium 140, Potassium 4.1, Chloride 107, Carbon Dioxide 21.1, Anion Gap 12, BUN 37 H, Creatinine 2.07 H, Estim Creat Clear Calc 43.64 L, Est GFR (MDRD) Non-Af 33 L, BUN/Creatinine Ratio 18.1, Glucose 119 H, Calcium 8.7, T otal Bilirubin 2.02 H, Direct Bilirubin 1.28 H, AST 44 H, ALT 32, Alkaline Phosphatase 98, Total Protein 6.0, Albumin 3.1 L, Globulin 2.9 06/05/25 06:00: POC Glucose 108 H Radiography Diagnostic Testing: Radiology Impression Gallbladder Ultrasound 06/04/25 07:25 IMPRESSION: Sonographic evidence of acute cholecystitis. So-called tumefactive sludge adheres to the gallbladder wall. Reading Location: [facility] Assessment & Plan Assessment/Plan (1) Acute cholecystitis: (2) Chronic anticoagulation: PLAN: Plan Planning for cholecystostomy in radiology, INR is 1.5. Discussed with patient and will plan for elective cholecystectomy in several weeks. Anny Jacob M.D. Pager: [phone] [facility] [address] [place] [address], [facility], [address] [place] [id number] Office: [phone]
[2025-06-05] MEDS: 0.9% Normal Saline (250mL Bag) 250 ML 15 ML IV (10:10)
[2025-06-05] MEDS: Midazolam 2 MG/2 ML Syringe IV ×2 (10:10→10:21)
[2025-06-05] MEDS: fentaNYL 100 MCG/2 ML Ampul IV (10:11)
--- NOTE | 2025-06-05 10:20 | CT_ITS ---
PROCEDURE: CT-guided cholecystostomy tube placement. 06/05/2025 REASON FOR EXAM: ACUTE CHOLECYSTITIS TECHNIQUE: The procedure as well as the benefits and possible complications including infection and bleeding were explained to the patient. Informed consent was obtained. Conscious sedation was performed. The patient received 2 mg of Versed and 50 mcg of fentanyl intravenously. Conscious sedation was started at 10:10 a.m. and terminated at 10:25 a.m.. The patient was independently monitored by the department nurse. The overlying skin was prepped and draped in the usual sterile fashion. Following local anesthetic application, a 8 Arabic catheter was placed into the gallbladder lumen. Approximately 30 cc of dark colored bile was recovered. The drainage tube was left in place. RADIATION DOSE SUMMARY: CTDlvol: 29.14 mGy DLP: 2039.89 mGycm COMPARISON: Prior CT scan of the abdomen and pelvis dated June 03, 2025. FINDINGS: Successful CT-guided percutaneous cholecystostomy. The patient tolerated the procedure well. CT/Biopsy/Inj or Needle Placement IMPRESSION: Successful CT-guided percutaneous cholecystostomy placement. The patient violetta ated the procedure well. No immediate postprocedure complication noted. Reading Location: [place] [address]
[2025-06-05] MEDS: Lidocaine 2% (20 ml mdv) 20 ML Vial INFILT (10:24)
--- NOTE | 2025-06-05 13:00 | CASEMGMT ---
MARGO LOVELACE Assessment Face to Face with patient for initial transition planning/care coordination assessment. MARGO LOVELACE introduced self and role at [facility], pt voices understanding. Pt is A&Ox4 and is resting comfortably in the chair and is calm. Care providers, pharmacy, and demographics verified. Admitting dx: Acute Cholecystitis PCP: Enzo Jasso Specialists: Aurelia (PM) Preferred Pharmacy: [facility] Insurance: [facility] A/B. [employer] Supplemental plan Prescription Benefit: Yes LNOK: Candida (W) Living Arrangements: Pt lives with his in a single story home with a flat entrance ADLs/IADLs: Pt states that he is indep and denies concerns or needs Transportation: Self, DME: [employer] with sufficient supplies. Cane. Grab bars. HHC/SNF: Denies hx or needs Pt?s goal: Home Plan: Home with pt's once medically ready. Pt plans to go home with the placed Kaia tube and states that he feels safe and comfortable caring for it at home with the help of his . Pt states that he plans to follow up with his PCP as an OP and also plans to have his GB removed x3 weeks from now. Pt denies the need for HHC or OP Tx at this time. Pt denies further questions or concerns. Report given to ZEYNEP ARAGON CM. Sherlyn Rich RN, CM
--- NOTE | 2025-06-05 15:39 | PN.HOSP_ITS ---
Reason for Visit Chief Complaint: abdominal pain Objective Data Objective Data Vital Signs: Vital Signs Temp Pulse Resp BP Pulse Ox O2 Del Method O2 Flow Rate 97.3 F L 80 18 99/54 L 93 Room Air 2 06/05/25 11:48 06/05/25 11:48 06/05/25 11:48 06/05/25 11:48 06/05/25 14:49 06/05/25 14:49 06/05/25 11:48 Oxygen Flow Rate (L/min) 2 Oxygen Delivery Method Room Air Weight: 263 lb Body Mass Index (BMI) 34.7 Intake & Output: Intake and Output for Last 24 Hours 06/03/25 06/04/25 06/05/25 23:59 23:59 23:59 Intake Total 1050 / 1050 2965.38 / 3065.38 362.5 / 362.5 Output Total Balance 1050 / 1050 2965.38 / 3065.38 342.5 / 342.5 Lab / Micro Data 06/05/25 05:22 06/05/25 05:22 Labs: Laboratory Results - last 24 hr 06/04/25 18:31: POC Glucose 172 H 06/04/25 21:18: PT 18.7 H, INR 1.5 06/05/25 00:19: POC Glucose 138 H 06/05/25 05:22: WBC 14.2 H, RBC 3.63 L, Hgb 11.4 L, Hct 35.0 L, MCV 96.4 H, MCH 31.4, MCHC 32.6, RDW Std Deviation 50.7 H, RDW Coeff of Geovanna 14.4, Plt Count 236, MPV 9.2, Immature Gran % (Auto) 1.100 H, Neut % (Auto) 86.5 H, Lymph % (Auto) 3.8 L, [place] % (Auto) 7.3, Eos % (Auto) 1.2, Baso % (Auto) 0.1, Absolute Neuts (auto) 12.2 H, Absolute Lymphs (auto) 0.54 L, Nucleated RBC % 0, PT 18.8 H, INR 1.5, APTT 36.0, Sodium 140, Potassium 4.1, Chloride 107, Carbon Dioxide 21.1, Anion Gap 12, BUN 37 H, Creatinine 2.07 H, Estim Creat Clear Calc 43.64 L, Est GFR (MDRD) Non-Af 33 L, BUN/Creatinine Ratio 18.1, Glucose 119 H, Calcium 8.7, T otal Bilirubin 2.02 H, Direct Bilirubin 1.28 H, AST 44 H, ALT 32, Alkaline Phosphatase 98, Total Protein 6.0, Albumin 3.1 L, Globulin 2.9 06/05/25 06:00: POC Glucose 108 H 06/05/25 11:39: POC Glucose 105 Micro: Microbiology 06/05/25 10:35 Aspirate - Abdominal Gram Stain - Final Radiography Diagnostic Testing: Radiology Impression Biopsy CT 06/05/25 10:20 IMPRESSION: Successful CT-guided percutaneous cholecystostomy placement. The patient tolerated the procedure well. No immediate postprocedure complication noted. [facility] Exam Narrative Seen and examined. Patient went for CT-guided cholecystostomy tube procedure to IR. INR 1.5. Has cholecystostomy tube with bilious drainage in the tube. CHANDA drainage tube is empty Right upper quadrant abdominal pain is better. He was admitted with abdominal pain predominantly right upper quadrant started on Thursday evening/night. Denies nausea vomiting. Denies fever Physical exam General: Alert, Oriented x3, Cooperative HEENT: Atraumatic, PERRLA, EOMI, Normocephalic. Oral: No Gingival or Mucosal Lesions/ Ulcerations Neck: Supple, No JVD, Negative Carotid Bruits Chest wall/Lungs: Air entry diminished in bilateral lung bases. No crepitation/rhonchi Cardiovascular: Regular rate and rhythm, Normal S1,S2, No M/G/R Abdomen: Bowel Sounds sluggish, CHANDA drain in RUQ with cholecystostomy tube. About 20 mL drainage. Mild localized tenderness. : No dysuria. No renal angle tenderness. No suprapubic tenderness. Extremities: No edema, Capillary Refill Less than 3 Seconds Skin: No rashes, No breakdown Musculoskeletal: No Tenderness to Palpation of Joints or Extremities Neurological: Cranial nerves II-XII grossly intact, DTR 2+/4. No acute focal neurological deficit. Psych/Mental Status: Flat affect due to pain. Assessment & Plan Assessment/Plan (1) Acute cholecystitis: PLAN: Plan 74-year-old gentleman was admitted with RUQ pain. Never had similar pain in the past. #Acute cholecystitis with CT-guided cholecystostomy tube on 06/05/2025: * CT abdomen and pelvis showed individually reviewed acute cholecystitis with no biliary ductal dilatation and epiploic appendagitis of the descending colon of the left midabdomen with diffuse hepatic steatosis * The patient is being admitted in [facility]. Hold Coumadin. INR is 1.9. * Get blood cultures. Started on IV Zosyn in the ED. on IV Zosyn, pain medication and symptomatic management. * Was hydrated with IV fluid. General surgery consulted. * wbc is 16.7 06/04: Leukocytosis increased 20.3K, predominantly neutrophils 88.2%, lymphocyte 2.2%, immature granulocyte 1% suggestive of left shift. Discussed with Dr. Jacob. Right upper quadrant sonogram is done not reported. Acute cholecystitis with cholelithiasis. Continue antibiotic, vitamin K 10 mg and 2 units of FFP. Plan for surgery tomorrow 06/05: RUQ sonogram reported small amount of pericholecystic fluid, intraluminal sludge and multiple small gallstone so-called tumefactive sludge adhering to the GB wall. CBD 0.6 cm. Pancreas not visualized. CT-guided cholecystostomy tube. INR 1.5. Pain is controlled. Leukocytosis improving 14.2 K, predominant leukocytosis with relative lymphopenia. #Hypoxia * currently on 2L of oxygen. does not wear xygen at home. Due to patient taking in shallow breaths due to abdominal pain. * CXR showed evidence of atelectasis and evidence of shallow inspiration with bibasilar atelectasis. * encourage incentive spirometry use * breathing treatment with bronchodilators * titrate oxygen to maintain sats >90% #History of venous thromboembolism: On Coumadin. INR is 1.9. Will hold Coumadin as he may hve surgery tomorrow. 06/04: INR 2.1. As mentioned above vitamin K and FFP today. 06/05: INR 1.5. #Hypertension: On atenolol and spironolactone as well as losartan and hydralazine. #Hypothyroidism: on synthroid. #Hyperlipidemia: On atorvastatin and Vascepa #Type 2 diabetes mellitus: Hold glimepiride and Actos. Also hold pioglitazone Glucose 226, 253 in BMP. A1c 6.8%. Lantus 10 unit subcutaneous daily ordered. Accu-Chek before meals and at bedtime with Humalog sliding scale coverage and hypoglycemia protocol. UA WBC 0, protein 30 glucose 1000. Denies symptoms of dysuria or acute lower urinary tract symptoms. UA, microscopic analysis normal CKD stage IIIa: Patient admitted with BUN/creatinine 28/1.67, BUN/creatinine ratio 16.6. Today creatinine 1.65 no major change. Recently his creatinine has been 2.0 in February 202506/05: BUN/creatinine went up to 37/2.07 from baseline 1.65. Lasix and losartan on hold. IV fluid Ringer lactate ordered. Monitor kidney function tomorrow DVT prophylaxis: hold coumadin. 06/04: INR 2.1 today Code status: full code * Patient counseled extensively about different types of CODE STATUS including full code, DNR CCA and DNR CCA. Patient elects to be full code. Microbiology Past 72 Hours 06/05/25 10:35 Aspirate - Abdominal Gram Stain - Final Laboratory Results 06/04/25 18:31: POC Glucose 172 H 06/04/25 21:18: PT 18.7 H, INR 1.5 06/05/25 00:19: POC Glucose 138 H 06/05/25 05:22: WBC 14.2 H, RBC 3.63 L, Hgb 11.4 L, Hct 35.0 L, MCV 96.4 H, MCH 31.4, MCHC 32.6, RDW Std Deviation 50.7 H, RDW Coeff of Geovanna 14.4, Plt Count 236, MPV 9.2, Immature Gran % (Auto) 1.100 H, Neut % (Auto) 86.5 H, Lymph % (Auto) 3.8 L, [place] % (Auto) 7.3, Eos % (Auto) 1.2, Baso % (Auto) 0.1, Absolute Neuts (auto) 12.2 H, Absolute Lymphs (auto) 0.54 L, Nucleated RBC % 0, PT 18.8 H, INR 1.5, APTT 36.0, Sodium 140, Potassium 4.1, Chloride 107, Carbon Dioxide 21.1, Anion Gap 12, BUN 37 H, Creatinine 2.07 H, Estim Creat Clear Calc 43.64 L, Est GFR (MDRD) Non-Af 33 L, BUN/Creatinine Ratio 18.1, Glucose 119 H, Calcium 8.7, T otal Bilirubin 2.02 H, Direct Bilirubin 1.28 H, AST 44 H, ALT 32, Alkaline Phosphatase 98, Total Protein 6.0, Albumin 3.1 L, Globulin 2.9 06/05/25 06:00: POC Glucose 108 H 06/05/25 11:39: POC Glucose 105 Clinical Impression(s) from Imaging Studies Abdomen/Pelvis CT 06/03/25 14:47 IMPRESSION: 1. Acute cholecystitis. No biliary ductal dilatation. 2. Epiploic appendagitis of the descending colon the left midabdomen. 3. Diffuse hepatic steatosis. Ancillary findings as noted above. Reading Location: [id number] Chest X-Ray 06/03/25 19:51 IMPRESSION: Shallow inspiration with bibasilar atelectasis. Reading Location: [id number] Gallbladder Ultrasound 06/04/25 07:25 IMPRESSION: Sonographic evidence of acute cholecystitis. So-called tumefactive sludge adheres to the gallbladder wall. Reading Location: [id number] Biopsy CT 06/05/25 10:20 IMPRESSION: Successful CT-guided percutaneous cholecystostomy placement. The patient tolerated the procedure well. No immediate postprocedure complication noted. Reading Location: [facility] C Charges/Coding Visit Charges Inpatient E&M: 59060 Subs Hosp L2
--- NOTE | 2025-06-05 16:09 | CHAPLAIN ---
Type of Pastoral Visit _x__ Initial Visit ___ Follow-up Visit ___ On-call Visit ___ General Patient Visit ___ Spiritual Assessment ___ Family Conference ___ Bereavement ___ Rapid Response ___ Code Blue ___ Other (describe below) Pastoral Care Referral From _x__ Patient ___ Family ___ Nurse ___ Physician ___ Community Midwife ___ Post Form Remover ___ Other (describe below) Sacrament/Intervention _x__ Active listening ___ Anointing ___ Catholic ___ Bereavement ___ Communion _x__ Yahaira exploration ___ _x__ Life review _x__ Prayer ___ Reconciliation ___ Sacrament of Sick ___ Supportive presence ___ Wedding ___ Other (describe below) Pastoral Comments patient is welcoming and 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
[2025-06-05] MEDS: Lactated Ringers 1,000 ML 100 ML IV (17:00)
[2025-06-06] MEDS: Lactated Ringers 1,000 ML 100 ML IV (02:02)
[2025-06-06 02:15] VITALS: BP 105/55; PULSE 76; RESP 16; TEMP 36.6; O2SAT 95
[2025-06-06 05:32] LABS: Hematocrit 33.7 % (40-54); Hemoglobin 11.1 g/dL (13.0-16.5); Immature Granulocytes Count 0.070 X10^3/uL (0.0-0.0); Mean Corp Hgb Conc 32.9 g/dL (32-36); Mean Corpuscular Volume 97.1 fL (80-94); Mean Platelet Vol. 9.5 fl (6.2-12.0); NRBC Flagged by Analyzer 0 % (0-5); POSITIVE DIFFERENTIAL YES; Platelet Count 262 K/mm3 (150-450); RBC Distribution Width CV 14.3 % (11.6-14.6); RBC Distribution Width SD 51.4 fl (35.1-43.9); Red Blood Count 3.47 M/mm3 (4.6-6.2); White Blood Count 11.8 K/mm3 (4.4-11.0)
[2025-06-06 05:41] LABS: Prothrombin Time (Protime)PT. 16.2 SECONDS (11.7-14.9)
[2025-06-06] MEDS: Piperacil/Tazobactam 3.375 GM in 0.9% Normal Saline (50mL MB+) 50 ML IV ×3 (05:44→21:14)
[2025-06-06] MEDS: 0.9% Saline Lock 10 ML Syringe IV ×3 (05:44→20:00)
[2025-06-06 06:18] LABS: Anion Gap 12 (5-15); BUN 61 mg/dL (4-19); BUN/Creat Ratio 20.0 RATIO (10-20); Calcium,Total 8.5 mg/dL (7.6-11.0); Carbon Dioxide 20.4 mmol/L (21.0-32.0); Chloride 105 mmol/L (98-108); Estimated Creatinine Clearance 29.92 ml/min (50-250); Glucose 133 mg/dL (70-99); Potassium 3.5 mmol/L (3.3-5.1)
[2025-06-06 07:45] LABS: AST(SGOT) 50 U/L (<=37); Alanine Aminotransfer ALT/SGPT 38 U/L (<=46); Albumin, Serum 2.8 g/dL (3.4-4.8); Alkaline Phosphatase 125 U/L (40-129); Bilirubin, Direct 0.82 mg/dL (0.00-0.30); Globulin 3.2 g/dL (2.2-4.2)
[2025-06-06 08:21] VITALS: BP 106/57; PULSE 73; RESP 18; TEMP 36.5; O2SAT 94
--- NOTE | 2025-06-06 09:52 | PN.SURG_ITS ---
Subjective Subjective Patient evaluated resting comfortably in bed. He notes no pain at rest. He notes pain with movement. He denies any nausea, vomiting, fever. He is tolerating his diet without pain. Objective Data Objective Data Vital Signs: Vital Signs Temp Pulse Resp BP Pulse Ox O2 Del Method O2 Flow Rate 97.7 F L 73 18 106/57 L 94 Room Air 2 06/06/25 08:21 06/06/25 08:21 06/06/25 08:21 06/06/25 08:21 06/06/25 08:21 06/06/25 08:22 06/05/25 11:48 Oxygen Flow Rate (L/min) 2 Oxygen Delivery Method Room Air Weight: 263 lb Body Mass Index (BMI) 34.7 Intake & Output: Intake and Output for Last 24 Hours 06/04/25 06/05/25 06/06/25 23:59 23:59 23:59 Intake Total 2965.38 / 3065.38 412.5 / 412.5 953.33 / 953.33 Output Total Balance 2965.38 / 3065.38 392.5 / 392.5 953.33 / 953.33 Lab / Micro Data 06/06/25 05:20 06/06/25 05:20 Labs: Laboratory Results - last 24 hr 06/05/25 11:39: POC Glucose 105 06/05/25 16:32: POC Glucose 203 H 06/05/25 21:20: POC Glucose 231 H 06/06/25 05:20: WBC 11.8 H, RBC 3.47 L, Hgb 11.1 L, Hct 33.7 L, MCV 97.1 H, MCH 32.0, MCHC 32.9, RDW Std Deviation 51.4 H, RDW Coeff of Geovanna 14.3, Plt Count 262, MPV 9.5, Immature Gran % (Auto) 0.600, Neut % (Auto) 85.3 H, Lymph % (Auto) 4.9 L, [place] % (Auto) 6.2, Eos % (Auto) 2.8, Baso % (Auto) 0.2, Absolute Neuts (auto) 10.1 H, Absolute Lymphs (auto) 0.58 L, Nucleated RBC % 0, PT 16.2 H, INR 1.3, Sodium 137, Potassium 3.5, Chloride 105, Carbon Dioxide 20.4 L, Anion Gap 12, B UN 61 H, Creatinine 3.02 H, Estim Creat Clear Calc 29.92 L, Est GFR (MDRD) Non- Af 21 L, BUN/Creatinine Ratio 20.0, Glucose 133 H, Calcium 8.5, Total Bilirubin 1.24, Direct Bilirubin 0.82 H, AST 50 H, ALT 38, Alkaline Phosphatase 125, Total Protein 6.0, Albumin 2.8 L, Globulin 3.2 06/06/25 06:08: POC Glucose 113 H Micro: Microbiology 06/05/25 10:35 Aspirate - Abdominal Gram Stain - Final Radiography Diagnostic Testing: Radiology Impression Biopsy CT 06/05/25 10:20 IMPRESSION: Successful CT-guided percutaneous cholecystostomy placement. The patient tolerated the procedure well. No immediate postprocedure complication noted. Reading Location: [place] [address] Physical Exam GI GI Narrative: Abdomen- soft, nontender with palpation. CHANDA drain intact with thick dark green bile within the tube Assessment & Plan Assessment/Plan (1) Acute cholecystitis: PLAN: I am following this patient in conjunction with Dr. Jacob. She will independently evaluate this patient. Labs reviewed. Liver enzymes have decreased. WBC decreased. Creatinine has increased Continue IV antibiotics No surgical intervention planned at this time Hopeful discharge tomorrow pending overall medical status Charges/Coding Visit Charges Inpatient E&M: 76220 Subs Hosp L2
[2025-06-06 10:04] VITALS: BP 104/58; PULSE 75
[2025-06-06] MEDS: Insulin Glargine-YFGN 100 UNIT/ML Pen 10 UNIT SC (11:11)
[2025-06-06 11:17] VITALS: BP 98/58; PULSE 77
[2025-06-06 15:00] VITALS: BP 119/64; PULSE 73; RESP 18; TEMP 36.5; O2SAT 97
--- NOTE | 2025-06-06 15:32 | PN.HOSP_ITS ---
Reason for Visit Chief Complaint: abdominal pain Objective Data Objective Data Vital Signs: Vital Signs Temp Pulse Resp BP Pulse Ox O2 Del Method O2 Flow Rate 97.7 F L 77 18 98/58 L 94 Room Air 2 06/06/25 08:21 06/06/25 11:17 06/06/25 08:21 06/06/25 11:17 06/06/25 08:21 06/06/25 10:48 06/05/25 11:48 Oxygen Flow Rate (L/min) 2 Oxygen Delivery Method Room Air Weight: 263 lb Body Mass Index (BMI) 34.7 Intake & Output: Intake and Output for Last 24 Hours 06/04/25 06/05/25 06/06/25 23:59 23:59 23:59 Intake Total 2965.38 / 3065.38 412.5 / 412.5 Output Total Balance 2965.38 / 3065.38 392.5 / 392.5 Lab / Micro Data 06/06/25 05:20 06/06/25 05:20 Labs: Laboratory Results - last 24 hr 06/05/25 16:32: POC Glucose 203 H 06/05/25 21:20: POC Glucose 231 H 06/06/25 05:20: WBC 11.8 H, RBC 3.47 L, Hgb 11.1 L, Hct 33.7 L, MCV 97.1 H, MCH 32.0, MCHC 32.9, RDW Std Deviation 51.4 H, RDW Coeff of Geovanna 14.3, Plt Count 262, MPV 9.5, Immature Gran % (Auto) 0.600, Neut % (Auto) 85.3 H, Lymph % (Auto) 4.9 L, [place] % (Auto) 6.2, Eos % (Auto) 2.8, Baso % (Auto) 0.2, Absolute Neuts (auto) 10.1 H, Absolute Lymphs (auto) 0.58 L, Nucleated RBC % 0, PT 16.2 H, INR 1.3, Sodium 137, Potassium 3.5, Chloride 105, Carbon Dioxide 20.4 L, Anion Gap 12, B UN 61 H, Creatinine 3.02 H, Estim Creat Clear Calc 29.92 L, Est GFR (MDRD) Non- Af 21 L, BUN/Creatinine Ratio 20.0, Glucose 133 H, Calcium 8.5, Total Bilirubin 1.24, Direct Bilirubin 0.82 H, AST 50 H, ALT 38, Alkaline Phosphatase 125, Total Protein 6.0, Albumin 2.8 L, Globulin 3.2 06/06/25 06:08: POC Glucose 113 H 06/06/25 11:08: POC Glucose 200 H Micro: Microbiology 06/05/25 10:35 Aspirate - Abdominal Gram Stain - Final Physical Exam Narrative Seen and examined. No acute issues. CHANDA drain is empty. Patient went for CT-guided cholecystostomy tube procedure to IR on 06/05/2025. INR 1.5. Has cholecystostomy tube with bilious drainage in the tube. RUQ abdominal pain has resolved. Moving bowel. He was admitted with abdominal pain predominantly right upper quadrant started on Thursday evening/night. Denies nausea vomiting. Denies fever Physical exam General: Alert, Oriented x3, Cooperative HEENT: Atraumatic, PERRLA, EOMI, Normocephalic. Oral: No Gingival or Mucosal Lesions/ Ulcerations Neck: Supple, No JVD, Negative Carotid Bruits Chest wall/Lungs: Air entry diminished in bilateral lung bases. No crepitation/rhonchi Cardiovascular: Regular rate and rhythm, Normal S1,S2, No M/G/R Abdomen: Bowel Sounds good, CHANDA drain in RUQ with cholecystostomy tube. About 20 mL aspiration by IR. No further drainage. No RUQ tenderness : No dysuria. No renal angle tenderness. No suprapubic tenderness. Extremities: No edema, Capillary Refill Less than 3 Seconds Skin: No rashes, No breakdown Musculoskeletal: No Tenderness to Palpation of Joints or Extremities Neurological: Cranial nerves II-XII grossly intact, DTR 2+/4. No acute focal neurological deficit. Psych/Mental Status: Appropriate. Normal affect Assessment & Plan Assessment/Plan (1) Acute cholecystitis: PLAN: Plan 74-year-old gentleman was admitted with RUQ pain. Never had similar pain in the past. #Acute cholecystitis with CT-guided cholecystostomy tube on 06/05/2025: * CT abdomen and pelvis showed individually reviewed acute cholecystitis with no biliary ductal dilatation and epiploic appendagitis of the descending colon of the left midabdomen with diffuse hepatic steatosis * The patient is being admitted in MedSurg. Hold Coumadin. INR is 1.9. * Get blood cultures. Started on IV Zosyn in the ED. on IV Zosyn, pain medication and symptomatic management. * Was hydrated with IV fluid. General surgery consulted. * wbc is 16.7 06/04: Leukocytosis increased 20.3K, predominantly neutrophils 88.2%, lymphocyte 2.2%, immature granulocyte 1% suggestive of left shift. Discussed with Dr. Jacob. Right upper quadrant sonogram is done not reported. Acute cholecystitis with cholelithiasis. Continue antibiotic, vitamin K 10 mg and 2 units of FFP. Plan for surgery tomorrow 06/05: RUQ sonogram reported small amount of pericholecystic fluid, intraluminal sludge and multiple small gallstone so-called tumefactive sludge adhering to the GB wall. CBD 0.6 cm. Pancreas not visualized. CT-guided cholecystostomy tube. INR 1.5. Pain is controlled. Leukocytosis improving 14.2 K, predominant leukocytosis with relative lymphopenia. 06/06: Leukocytosis improving. Liver chemistry also shows improvement. H&H 11.1/33.7. Gram stain from bilious aspirate shows no organism #Hypoxia * currently on 2L of oxygen. does not wear xygen at home. Due to patient taking in shallow breaths due to abdominal pain. * CXR showed evidence of atelectasis and evidence of shallow inspiration with bibasilar atelectasis. * encourage incentive spirometry use * breathing treatment with bronchodilators * titrate oxygen to maintain sats >90% 06/06: Hypoxia resolved. #History of venous thromboembolism: On Coumadin. INR is 1.9. Will hold Coumadin as he may hve surgery tomorrow. 06/04: INR 2.1. As mentioned above vitamin K and FFP today. 06/05: INR 1.5. 06/06 INR 1.3. Resume warfarin #Hypertension: On atenolol and spironolactone as well as losartan and hydralazine. #Hypothyroidism: on synthroid. #Hyperlipidemia: On atorvastatin and Vascepa #Type 2 diabetes mellitus: Hold glimepiride and Actos. Also hold pioglitazone Glucose 226, 253 in BMP. A1c 6.8%. Lantus 10 unit subcutaneous daily ordered. Accu-Chek before meals and at bedtime with Humalog sliding scale coverage and hypoglycemia protocol. UA WBC 0, protein 30 glucose 1000. Denies symptoms of dysuria or acute lower urinary tract symptoms. UA, microscopic analysis normal CKD stage IIIa: Patient admitted with BUN/creatinine 28/1.67, BUN/creatinine ratio 16.6. Today creatinine 1.65 no major change. Recently his creatinine has been 2.0 in February 202506/05: BUN/creatinine went up to 37/2.07 from baseline 1.65. Lasix and losartan on hold. IV fluid Ringer lactate ordered. Monitor kidney function tomorrow DVT prophylaxis: hold coumadin. 06/04: INR 2.1 today Code status: full code * Patient counseled extensively about different types of CODE STATUS including full code, DNR CCA and DNR CCA. Patient elects to be full code. Microbiology Past 72 Hours 06/05/25 10:35 Aspirate - Abdominal Gram Stain - Final Laboratory Results 06/05/25 16:32: POC Glucose 203 H 06/05/25 21:20: POC Glucose 231 H 06/06/25 05:20: WBC 11.8 H, RBC 3.47 L, Hgb 11.1 L, Hct 33.7 L, MCV 97.1 H, MCH 32.0, MCHC 32.9, RDW Std Deviation 51.4 H, RDW Coeff of Geovanna 14.3, Plt Count 262, MPV 9.5, Immature Gran % (Auto) 0.600, Neut % (Auto) 85.3 H, Lymph % (Auto) 4.9 L, [place] % (Auto) 6.2, Eos % (Auto) 2.8, Baso % (Auto) 0.2, Absolute Neuts (auto) 10.1 H, Absolute Lymphs (auto) 0.58 L, Nucleated RBC % 0, PT 16.2 H, INR 1.3, Sodium 137, Potassium 3.5, Chloride 105, Carbon Dioxide 20.4 L, Anion Gap 12, B UN 61 H, Creatinine 3.02 H, Estim Creat Clear Calc 29.92 L, Est GFR (MDRD) Non- Af 21 L, BUN/Creatinine Ratio 20.0, Glucose 133 H, Calcium 8.5, Total Bilirubin 1.24, Direct Bilirubin 0.82 H, AST 50 H, ALT 38, Alkaline Phosphatase 125, Total Protein 6.0, Albumin 2.8 L, Globulin 3.2 06/06/25 06:08: POC Glucose 113 H 06/06/25 11:08: POC Glucose 200 H Clinical Impression(s) from Imaging Studies Abdomen/Pelvis CT 06/03/25 14:47 IMPRESSION: 1. Acute cholecystitis. No biliary ductal dilatation. 2. Epiploic appendagitis of the descending colon the left midabdomen. 3. Diffuse hepatic steatosis. Ancillary findings as noted above. Reading Location: [facility] Chest X-Ray 06/03/25 19:51 IMPRESSION: Shallow inspiration with bibasilar atelectasis. Reading Location: [id number] Gallbladder Ultrasound 06/04/25 07:25 IMPRESSION: Sonographic evidence of acute cholecystitis. So-called tumefactive sludge adheres to the gallbladder wall. Reading Location: [id number] Biopsy CT 06/05/25 10:20 IMPRESSION: Successful CT-guided percutaneous cholecystostomy placement. The patient tolerated the procedure well. No immediate postprocedure complication noted. Reading Location: [facility] C Charges/Coding Visit Charges Inpatient E&M: 28150 Subs Hosp L2
--- NOTE | 2025-06-06 16:01 | CASEMGMT ---
RN CM into pt room, pt sitting up in chair with at bedside. Pt states he is not getting any drainage from choley tube. Spoke with pt nurse who states surgeon is aware. 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 Pt states he has some pain and is a little weak only due to pain. Discussed any therapy and pt declines at this time. Pt denies any homegoing needs. Pt states they have done IV's at home and many other things. She is comfortable with choley tube.
[2025-06-06] MEDS: Warfarin (PBKC) 5 MG Tablet PO (16:40)
[2025-06-06 20:00] VITALS: BP 135/71; PULSE 76; RESP 18; TEMP 36.9; O2SAT 95
[2025-06-07 02:00] VITALS: BP 141/67; PULSE 71; RESP 18; TEMP 36.6; O2SAT 95
[2025-06-07 05:48] LABS: Hematocrit 34.4 % (40-54); Hemoglobin 11.6 g/dL (13.0-16.5); Immature Granulocytes Count 0.080 X10^3/uL (0.0-0.0); Mean Corp Hgb Conc 33.7 g/dL (32-36); Mean Corpuscular Volume 93.7 fL (80-94); Mean Platelet Vol. 9.5 fl (6.2-12.0); NRBC Flagged by Analyzer 0 % (0-5); POSITIVE DIFFERENTIAL YES; Platelet Count 271 K/mm3 (150-450); RBC Distribution Width CV 14.2 % (11.6-14.6); RBC Distribution Width SD 48.9 fl (35.1-43.9); Red Blood Count 3.67 M/mm3 (4.6-6.2); White Blood Count 10.3 K/mm3 (4.4-11.0)
[2025-06-07] MEDS: Piperacil/Tazobactam 3.375 GM in 0.9% Normal Saline (50mL MB+) 50 ML IV (05:57)
[2025-06-07 05:59] LABS: Prothrombin Time (Protime)PT. 15.9 SECONDS (11.7-14.9)
[2025-06-07 06:30] LABS: Anion Gap 11 (5-15); BUN 53 mg/dL (4-19); BUN/Creat Ratio 24.1 RATIO (10-20); Calcium,Total 8.2 mg/dL (7.6-11.0); Carbon Dioxide 19.9 mmol/L (21.0-32.0); Chloride 107 mmol/L (98-108); Estimated Creatinine Clearance 41.07 ml/min (50-250); Glucose 144 mg/dL (70-99); Potassium 3.5 mmol/L (3.3-5.1)
--- NOTE | 2025-06-07 07:23 | PN.SURG_ITS ---
Subjective Subjective Patient evaluated resting comfortably in bed. He denies any nausea, vomiting, fever. He notes tolerating his current diet. He notes abdominal discomfort with movement/positional change only. Objective Data Objective Data Vital Signs: Vital Signs Temp Pulse Resp BP Pulse Ox O2 Del Method O2 Flow Rate 97.9 F 71 18 141/67 H 95 Room Air 2 06/07/25 02:00 06/07/25 02:00 06/07/25 02:00 06/07/25 02:00 06/07/25 02:00 06/07/25 02:00 06/05/25 11:48 Oxygen Flow Rate (L/min) 2 Oxygen Delivery Method Room Air Weight: 263 lb Body Mass Index (BMI) 34.7 Intake & Output: Intake and Output for Last 24 Hours 06/05/25 06/06/25 06/07/25 23:59 23:59 23:59 Intake Total 412.5 / 412.5 2052.33 / 2052.33 50 / 50 Output Total 625 / 625 Balance 392.5 / 392.5 2052. / 180. -575 / -575 Lab / Micro Data 06/07/25 05:36 06/07/25 05:36 Labs: Laboratory Results - last 24 hr 06/06/25 05:20: Total Bilirubin 1.24, Direct Bilirubin 0.82 H, AST 50 H, ALT 38, Alkaline Phosphatase 125, Total Protein 6.0, Albumin 2.8 L, Globulin 3.2 06/06/25 11:08: POC Glucose 200 H 06/06/25 16:37: POC Glucose 235 H 06/06/25 21:16: POC Glucose 191 H 06/07/25 05:36: WBC 10.3, RBC 3.67 L, Hgb 11.6 L, Hct 34.4 L, MCV 93.7, MCH 31.6, MCHC 33.7, RDW Std Deviation 48.9 H, RDW Coeff of Geovanna 14.2, Plt Count 271, MPV 9.5, Immature Gran % (Auto) 0.800, Neut % (Auto) 83.3 H, Lymph % (Auto) 5.4 L, [place] % (Auto) 6.2, Eos % (Auto) 4.0, Baso % (Auto) 0.3, Absolute Neuts (auto) 8.5 H, Absolute Lymphs (auto) 0.55 L, Nucleated RBC % 0, PT 15.9 H, INR 1.2, Sodium 137, Potassium 3.5, Chloride 107, Carbon Dioxide 19.9 L, Anion Gap 11, B UN 53 H, Creatinine 2.20 H, Estim Creat Clear Calc 41.07 L, Est GFR (MDRD) Non- Af 31 L, BUN/Creatinine Ratio 24.1 H, Glucose 144 H, Calcium 8.2 06/07/25 06:00: POC Glucose 130 H Micro: Microbiology 06/05/25 10:35 Aspirate - Abdominal Gram Stain - Final Physical Exam GI GI Narrative: Abdomen- soft, nontender in the RUQ. CHANDA drain intact with thick dark green bilious material within the tubing and bulb Assessment & Plan Assessment/Plan (1) Acute cholecystitis: PLAN: I am following this patient in conjunction with Dr. Jacob. She will independently evaluate this patient. Labs reviewed. WBC normal. Liver enzymes stable. Creatinine decreased Plan for patient to be discharge to home on Augmentin x 10 days Patient is stable from a surgical standpoint for discharge today Follow-up with Dr. Jacob in 1-2 weeks We will continue to monitor this patient as long as he is hospitalized Charges/Coding Visit Charges Inpatient E&M: 66584 Subs Hosp L2
[2025-06-07 07:51] LABS: AST(SGOT) 48 U/L (<=37); Alanine Aminotransfer ALT/SGPT 41 U/L (<=46); Albumin, Serum 2.8 g/dL (3.4-4.8); Alkaline Phosphatase 142 U/L (40-129); Bilirubin, Direct 0.48 mg/dL (0.00-0.30); Globulin 2.9 g/dL (2.2-4.2)
[2025-06-07 09:00] VITALS: BP 113/69; PULSE 80; RESP 18; TEMP 36.6; O2SAT 97
[2025-06-07] MEDS: Insulin Glargine-YFGN 100 UNIT/ML Pen 10 UNIT SC (09:16)
--- NOTE | 2025-06-07 10:05 | DCINST_ITS ---
Discharge Instructions DC O2, CPAP, BIPAP needs Home O2 Discharge instructions: No Dressing / Incision Discharge Activity: Return to Normal Activity Weight Bearing Status: Weight bearing as tolerated Dressing / Incision Call your doctor if you observe: Fever of 101 or Higher, Coldness, Increased Pain, Numbness or Tingling, Change in Color, Inability to urinate, Inability to have a bowel movement, Shortness of breath, Dizziness, Fainting spells, Swelling in the ankles, Chest pain, Prolonged hiccupping, Increased palpitations (irregular heartbeat) and Calf discomfort Follow Up Care When: IN 2 WEEKS Test Results: Test results from this visit will be discussed in further detail at your follow- up appointment, if applicable. Discharge Plan Admission Admit Date/Time: 06/03/25 20:49 Primary Reason for Your Visit: Acute on chronic cholecystitis with cholelithiasis Attending Provider: Jordan Thompson Primary Care Provider: Enzo Jasso Consulting Providers: Anny Jacob; Oxana Pascal Instructions Additional Instructions / Restrictions: Recommend a low fat diet You will be sent home on antibiotics. Please complete the entire prescription. Follow-up within [address] Jacob You will need to record how much drainage is in the drain each time you empty the bulb Discharge Orders/Prescriptions Prescriptions: New amoxicillin-pot clavulanate 875-125 mg tablet 1 tab PO BID 6 Days Qty: 12 0RF warfarin [Jantoven] 5 mg Tablet 5 mg PO DINNER 5 Days Qty: 5 0RF Rx Instructions: INR in 2 days on 06/10/2025 Continued Mounjaro 10 mg/0.5 mL pen injector 10 mg subcut QWEEK acarbose [Precose] 100 MG tablet 100 mg PO BID Patient Comments: 1/2 TO 1 TABLET BEFORE EACH MEAL TO REDUCE SUGAR ABSORPTION losartan 100 MG tablet 100 mg PO QHS atenolol 50 MG tablet 50 mg PO BID glimepiride 4 MG tablet 4 mg PO BID Patient Comments: Take 1/2 Tablet twice daily HOLD IF LOW GLUCOSE OR DIZZY furosemide 20 MG tablet 20 mg PO DAILY multivitamin Tablet 1 tab PO DAILY ascorbic acid (vitamin C) [Vitamin C] 1,000 mg Tablet 1 g PO DAILY pioglitazone 30 mg tablet 15 mg PO DAILY cholecalciferol (vitamin D3) [Vitamin D3] 25 mcg (1,000 unit) Capsule 50 mcg PO DAILY atorvastatin 20 mg Tablet 20 mg PO QHS Qty: 30 0RF Kerendia 20 mg tablet 20 mg PO DAILY hydralazine 50 mg tablet 50 mg PO QHS levothyroxine 50 mcg tablet 50 mcg PO DAILY alpha lipoic acid 600 mg capsule 600 mg PO BID Held warfarin 5 MG tablet 4 mg PO DAILY Hold Instructions: Hold for 5 days until complete warfarin 5 mg daily and then back to 4 mg daily. cinnamon bark 500 MG capsule 500 mg PO BID Hold Instructions: Hold for 1 week Referrals / Follow Up: Enzo Jasso MD [Primary Care Provider, Family Practice] Anny Jacob MD [Med Staff - Active Staff, General Surgery] - Within 2 Weeks Disposition Disposition (needs filled in before D/C Order can be placed): Home, Self Care
[2025-06-07 11:21] VITALS: BP 131/67; PULSE 79
--- NOTE | 2025-06-07 12:28 | CASEMGMT ---
Addendum entered by Yuliana Perez 06/07/25 14:02: Pt nurse delivered walker to pt and had pt sign consignment form. Uploaded to [employer] and sent via careport. Addendum entered by Yuliana Perez 06/07/25 12:57: Referral sent to [employer] for FWW via careport at this time. Original Note: RN CM into pt room, pt is requesting a FWW. Provided pt with a local in network list verbally of DME companies, pt chose [employer].
[2025-06-07 13:10] VITALS: BP 114/66; PULSE 71; RESP 18; TEMP 36.4; O2SAT 97
--- NOTE | 2025-06-07 13:11 | DS.PCM_ITS ---
Providers Date of Admission: 06/03/25 Date of Discharge: 06/07/25 Primary Care Physician: Dr. Enzo Jasso MD Consultations 06/03/25 21:15 Consult: General Surgery Routine Consulting Provider: Anny Jacob Reason for Consult: acute cholecystitis EMERGENT Consult: No MD Notified: Yes Date Notified: 06/03/25 Time Notified: 21:13 Method of Notification: Text Reason For Visit: ACUTE CHOLECYSTITIS Diagnosis Discharge Diagnosis (1) Acute cholecystitis: Status: Acute Code(s): K81.0 - Acute cholecystitis Plan 74-year-old gentleman was admitted with RUQ pain. Never had similar pain in the past. #Acute cholecystitis with CT-guided cholecystostomy tube on 06/05/2025: * CT abdomen and pelvis showed individually reviewed acute cholecystitis with no biliary ductal dilatation and epiploic appendagitis of the descending colon of the left midabdomen with diffuse hepatic steatosis * The patient is being admitted in [facility]. Hold Coumadin. INR is 1.9. * Get blood cultures. Started on IV Zosyn in the ED. on IV Zosyn, pain medication and symptomatic management. * Was hydrated with IV fluid. General surgery consulted. * wbc is 16.7 06/04: Leukocytosis increased 20.3K, predominantly neutrophils 88.2%, lymphocyte 2.2%, immature granulocyte 1% suggestive of left shift. Discussed with Dr. Jacob. Right upper quadrant sonogram is done not reported. Acute cholecystitis with cholelithiasis. Continue antibiotic, vitamin K 10 mg and 2 units of FFP. Plan for surgery tomorrow 06/05: RUQ sonogram reported small amount of pericholecystic fluid, intraluminal sludge and multiple small gallstone so-called tumefactive sludge adhering to the GB wall. CBD 0.6 cm. Pancreas not visualized. CT-guided cholecystostomy tube. INR 1.5. Pain is controlled. Leukocytosis improving 14.2 K, predominant leukocytosis with relative lymphopenia. 06/06: Leukocytosis improving. Liver chemistry also shows improvement. H&H 11.1/33.7. Gram stain from bilious aspirate shows no organism 06/07: Leukocytosis resolved. Liver chemistry, transaminases improved. Alkaline phosphatase 142, ALT 41. Total bilirubin improved to normal. Patient discharged on 6 more days of Augmentin. Advised to follow-up with Dr. Jacob in 2 weeks. He is being discharged with cholecystostomy tube/CHANDA drain and advised to take care of it and write down daily drainage amount. Cholecystostomy tube will be removed during definitive cholecystectomy surgery by Dr. Jacob #Hypoxia * currently on 2L of oxygen. does not wear xygen at home. Due to patient taking in shallow breaths due to abdominal pain. * CXR showed evidence of atelectasis and evidence of shallow inspiration with bibasilar atelectasis. * encourage incentive spirometry use * breathing treatment with bronchodilators * titrate oxygen to maintain sats >90% 06/06: Hypoxia resolved. #History of venous thromboembolism: On Coumadin. INR is 1.9. Will hold Coumadin as he may hve surgery tomorrow. 06/04: INR 2.1. As mentioned above vitamin K and FFP today. 06/05: INR 1.5. 06/06 INR 1.3. Resume warfarin 06/07: INR still low 1.2. Discharged on warfarin 5 mg daily for 5 days and then back to normal 4 mg daily. INR check in 2 days. #Hypertension: On atenolol and spironolactone as well as losartan and hydralazine. #Hypothyroidism: on synthroid. #Hyperlipidemia: On atorvastatin and Vascepa #Type 2 diabetes mellitus: Hold glimepiride and Actos. Also hold pioglitazone Glucose 226, 253 in BMP. A1c 6.8%. Lantus 10 unit subcutaneous daily ordered. Accu-Chek before meals and at bedtime with Humalog sliding scale coverage and hypoglycemia protocol. UA WBC 0, protein 30 glucose 1000. Denies symptoms of dysuria or acute lower urinary tract symptoms. UA, microscopic analysis normal 06/07: Glucose is controlled. Glucose 133, 144. CKD stage IIIa: Patient admitted with BUN/creatinine 28/1.67, BUN/creatinine ratio 16.6. Today creatinine 1.65 no major change. Recently his creatinine has been 2.0 in February 202506/05: BUN/creatinine went up to 37/2.07 from baseline 1.65. Lasix and losartan on hold. IV fluid Ringer lactate ordered. Monitor kidney function tomorrow DVT prophylaxis: hold coumadin. 06/04: INR 2.1 today Code status: full code * Patient counseled extensively about different types of CODE STATUS including full code, DNR CCA and DNR CCA. Patient elects to be full code. * * Discharge medication reconciliation done. Discharge follow-up instructions completed. Discharge process discussed with the patient and all questions were answered to patient's satisfaction. Follow with PCP in 1 to 2 weeks Total time spent, exact 35 minutes on discharge meds reconciliation, examination, coordination of care with nurses and ancillary staff, review of imaging and blood test and discussion with the patient on follow-up instructions. Microbiology Past 72 Hours 06/05/25 10:35 Aspirate - Abdominal Gram Stain - Final Laboratory Results 06/05/25 16:32: POC Glucose 203 H 06/05/25 21:20: POC Glucose 231 H 06/06/25 05:20: WBC 11.8 H, RBC 3.47 L, Hgb 11.1 L, Hct 33.7 L, MCV 97.1 H, MCH 32.0, MCHC 32.9, RDW Std Deviation 51.4 H, RDW Coeff of Geovanna 14.3, Plt Count 262, MPV 9.5, Immature Gran % (Auto) 0.600, Neut % (Auto) 85.3 H, Lymph % (Auto) 4.9 L, Kingfisher % (Auto) 6.2, Eos % (Auto) 2.8, Baso % (Auto) 0.2, Absolute Neuts (auto) 10.1 H, Absolute Lymphs (auto) 0.58 L, Nucleated RBC % 0, PT 16.2 H, INR 1.3, Sodium 137, Potassium 3.5, Chloride 105, Carbon Dioxide 20.4 L, Anion Gap 12, B UN 61 H, Creatinine 3.02 H, Estim Creat Clear Calc 29.92 L, Est GFR (MDRD) Non- Af 21 L, BUN/Creatinine Ratio 20.0, Glucose 133 H, Calcium 8.5, Total Bilirubin 1.24, Direct Bilirubin 0.82 H, AST 50 H, ALT 38, Alkaline Phosphatase 125, Total Protein 6.0, Albumin 2.8 L, Globulin 3.2 06/06/25 06:08: POC Glucose 113 H 06/06/25 11:08: POC Glucose 200 H Clinical Impression(s) from Imaging Studies Abdomen/Pelvis CT 06/03/25 14:47 IMPRESSION: 1. Acute cholecystitis. No biliary ductal dilatation. 2. Epiploic appendagitis of the descending colon the left midabdomen. 3. Diffuse hepatic steatosis. Ancillary findings as noted above. Reading Location: [id number] Chest X-Ray 06/03/25 19:51 IMPRESSION: Shallow inspiration with bibasilar atelectasis. Reading Location: [facility] Gallbladder Ultrasound 06/04/25 07:25 IMPRESSION: Sonographic evidence of acute cholecystitis. So-called tumefactive sludge adheres to the gallbladder wall. Reading Location: [id number] Biopsy CT 06/05/25 10:20 IMPRESSION: Successful CT-guided percutaneous cholecystostomy placement. The patient tolerated the procedure well. No immediate postprocedure complication noted. Reading Location: [facility] C Medications at Discharge Home Medications acarbose 100 mg tablet (Precose) 100 mg PO BID . 11/12/16 atenolol 50 mg tablet 50 mg PO BID BLOOD PRESSURE 11/12/16 losartan 100 mg tablet 100 mg PO QHS BP 11/12/16 cinnamon bark 500 mg capsule 500 mg PO BID . 05/20/19 Held on 06/07/25. Instructions: Hold for 1 week furosemide 20 mg tablet 20 mg PO DAILY WATER PILL 05/20/19 glimepiride 4 mg tablet 4 mg PO BID dm 05/20/19 warfarin 5 mg tablet 4 mg PO DAILY HX DVT 05/20/19 Held on 06/07/25. Instructions: Hold for 5 days until complete warfarin 5 mg daily and then back to 4 mg daily. ascorbic acid (vitamin C) 1,000 mg tablet (Vitamin C) 1 g PO DAILY . 05/08/21 cholecalciferol (vitamin D3) 25 mcg (1,000 unit) capsule (Vitamin D3) 50 mcg PO DAILY REPLACEMENT 05/08/21 multivitamin 1 tab PO DAILY SUPPLEMENT 05/08/21 pioglitazone 30 mg tablet 15 mg PO DAILY . 05/08/21 atorvastatin 20 mg tablet 20 mg PO QHS CHOLESTEROL #30 tabs 05/15/21 tirzepatide 10 mg/0.5 mL subcutaneous pen injector (Mounjaro) 10 mg subcut QWEEK DM 01/05/25 alpha lipoic acid 600 mg capsule 600 mg PO BID . 06/03/25 finerenone 20 mg tablet (Kerendia) 20 mg PO DAILY . 06/03/25 hydralazine 50 mg tablet 50 mg PO QHS BP 06/03/25 levothyroxine 50 mcg tablet 50 mcg PO DAILY THY 06/03/25 amoxicillin 875 mg-potassium clavulanate 125 mg tablet 1 tab PO BID 6 days #12 tabs 06/07/25 warfarin 5 mg tablet (Jantoven) 5 mg PO DINNER 5 days #5 tabs 06/07/25 Hospital Course Summary of Care Provided Hospital Course: Microbiology Past 72 Hours 06/05/25 10:35 Aspirate - Abdominal Gram Stain - Final 06/05/25 10:35 Aspirate - Abdominal Wound Culture - Preliminary No growth-Final to follow 06/05/25 10:35 Aspirate - Abdominal Anaerobic Culture - Preliminary No growth in 48 hours. Laboratory Results 06/06/25 16:37: POC Glucose 235 H 06/06/25 21:16: POC Glucose 191 H 06/07/25 05:36: WBC 10.3, RBC 3.67 L, Hgb 11.6 L, Hct 34.4 L, MCV 93.7, MCH 31.6, MCHC 33.7, RDW Std Deviation 48.9 H, RDW Coeff of Geovanna 14.2, Plt Count 271, MPV 9.5, Immature Gran % (Auto) 0.800, Neut % (Auto) 83.3 H, Lymph % (Auto) 5.4 L, Kingfisher % (Auto) 6.2, Eos % (Auto) 4.0, Baso % (Auto) 0.3, Absolute Neuts (auto) 8.5 H, Absolute Lymphs (auto) 0.55 L, Nucleated RBC % 0, PT 15.9 H, INR 1.2, Sodium 137, Potassium 3.5, Chloride 107, Carbon Dioxide 19.9 L, Anion Gap 11, B UN 53 H, Creatinine 2.20 H, Estim Creat Clear Calc 41.07 L, Est GFR (MDRD) Non- Af 31 L, BUN/Creatinine Ratio 24.1 H, Glucose 144 H, Calcium 8.2, Total Bilirubin 0.78, Direct Bilirubin 0.48 H, AST 48 H, ALT 41, Alkaline Phosphatase 142 H, Total Protein 5.6 L, Albumin 2.8 L, Globulin 2.9 06/07/25 06:00: POC Glucose 130 H 06/07/25 11:16: POC Glucose 218 H Physical Exam Narrative Seen and examined. No acute issues. CHANDA drain is empty. No fever or chills Patient went for CT-guided cholecystostomy tube procedure to IR on 06/05/2025. No fever Physical exam General: Alert, Oriented x3, Cooperative HEENT: Atraumatic, PERRLA, EOMI, Normocephalic. Oral: No Gingival or Mucosal Lesions/ Ulcerations Neck: Supple, No JVD, Negative Carotid Bruits Chest wall/Lungs: Air entry diminished in bilateral lung bases. No crepitation/rhonchi Cardiovascular: Regular rate and rhythm, Normal S1,S2, No M/G/R Abdomen: Bowel Sounds good, CHANDA drain in RUQ with cholecystostomy tube. About 20 mL aspiration by IR. No further drainage/CHANDA drain empty. No abdominal tenderness : No dysuria. No renal angle tenderness. No suprapubic tenderness. Extremities: No edema, Capillary Refill Less than 3 Seconds Skin: No rashes, No breakdown Musculoskeletal: No Tenderness to Palpation of Joints or Extremities Neurological: Cranial nerves II-XII grossly intact, DTR 2+/4. No acute focal neurological deficit. Psych/Mental Status: Appropriate. Normal affect Weight / BMI Weight Weight: 263 lb Body Mass Index (BMI) 34.7 ABG / Lab / Microbiology Data 06/07/25 05:36 06/07/25 05:36 Laboratory: Laboratory Results - last 24 hr 06/06/25 16:37: POC Glucose 235 H 06/06/25 21:16: POC Glucose 191 H 06/07/25 05:36: WBC 10.3, RBC 3.67 L, Hgb 11.6 L, Hct 34.4 L, MCV 93.7, MCH 31.6, MCHC 33.7, RDW Std Deviation 48.9 H, RDW Coeff of Geovanna 14.2, Plt Count 271, MPV 9.5, Immature Gran % (Auto) 0.800, Neut % (Auto) 83.3 H, Lymph % (Auto) 5.4 L, Kingfisher % (Auto) 6.2, Eos % (Auto) 4.0, Baso % (Auto) 0.3, Absolute Neuts (auto) 8.5 H, Absolute Lymphs (auto) 0.55 L, Nucleated RBC % 0, PT 15.9 H, INR 1.2, Sodium 137, Potassium 3.5, Chloride 107, Carbon Dioxide 19.9 L, Anion Gap 11, B UN 53 H, Creatinine 2.20 H, Estim Creat Clear Calc 41.07 L, Est GFR (MDRD) Non- Af 31 L, BUN/Creatinine Ratio 24.1 H, Glucose 144 H, Calcium 8.2, Total Bilirubin 0.78, Direct Bilirubin 0.48 H, AST 48 H, ALT 41, Alkaline Phosphatase 142 H, Total Protein 5.6 L, Albumin 2.8 L, Globulin 2.9 06/07/25 06:00: POC Glucose 130 H 06/07/25 11:16: POC Glucose 218 H Microbiology: Microbiology 06/05/25 10:35 Aspirate - Abdominal Gram Stain - Final 06/05/25 10:35 Aspirate - Abdominal Wound Culture - Preliminary No growth-Final to follow 06/05/25 10:35 Aspirate - Abdominal Anaerobic Culture - Preliminary No growth in 48 hours. D/C Instructions Weight Bearing Status: Weight bearing as tolerated Call your doctor if you observe: Fever of 101 or Higher, Coldness, Increased Pain, Numbness or Tingling, Change in Color, Inability to urinate, Inability to have a bowel movement, Shortness of breath, Dizziness, Fainting spells, Swelling in the ankles, Chest pain, Prolonged hiccupping, Increased palpitations (irregular heartbeat) and Calf discomfort DC O2, CPAP, BIPAP Needs Home O2 Discharge instructions: No When: IN 2 WEEKS Meaningful Use Info Meaningful Use Meaningful Use Diagnoses (Choose all that apply): None applicable Discharge Plan Admission Admit Date/Time: 06/03/25 20:49 Primary Reason for Your Visit: Acute on chronic cholecystitis with cholelithiasis Attending Provider: Jordan Thompson Primary Care Provider: Enzo Jasso Consulting Providers: Anny Jacob; Oxana Pascal Instructions Additional Instructions / Restrictions: Recommend a low fat diet You will be sent home on antibiotics. Please complete the entire prescription. Follow-up within [address] Jacob You will need to record how much drainage is in the drain each time you empty the bulb Discharge Orders/Prescriptions Prescriptions: New amoxicillin-pot clavulanate 875-125 mg tablet 1 tab PO BID 6 Days Qty: 12 0RF warfarin [Jantoven] 5 mg Tablet 5 mg PO DINNER 5 Days Qty: 5 0RF Rx Instructions: INR in 2 days on 06/10/2025 Continued Mounjaro 10 mg/0.5 mL pen injector 10 mg subcut QWEEK acarbose [Precose] 100 MG tablet 100 mg PO BID Patient Comments: 1/2 TO 1 TABLET BEFORE EACH MEAL TO REDUCE SUGAR ABSORPTION losartan 100 MG tablet 100 mg PO QHS atenolol 50 MG tablet 50 mg PO BID glimepiride 4 MG tablet 4 mg PO BID Patient Comments: Take 1/2 Tablet twice daily HOLD IF LOW GLUCOSE OR DIZZY furosemide 20 MG tablet 20 mg PO DAILY multivitamin Tablet 1 tab PO DAILY ascorbic acid (vitamin C) [Vitamin C] 1,000 mg Tablet 1 g PO DAILY pioglitazone 30 mg tablet 15 mg PO DAILY cholecalciferol (vitamin D3) [Vitamin D3] 25 mcg (1,000 unit) Capsule 50 mcg PO DAILY atorvastatin 20 mg Tablet 20 mg PO QHS Qty: 30 0RF Kerendia 20 mg tablet 20 mg PO DAILY hydralazine 50 mg tablet 50 mg PO QHS levothyroxine 50 mcg tablet 50 mcg PO DAILY alpha lipoic acid 600 mg capsule 600 mg PO BID Held warfarin 5 MG tablet 4 mg PO DAILY Hold Instructions: Hold for 5 days until complete warfarin 5 mg daily and then back to 4 mg daily. cinnamon bark 500 MG capsule 500 mg PO BID Hold Instructions: Hold for 1 week Referrals / Follow Up: Enzo Jasso MD [Primary Care Provider, Family Practice] Anny Jacob MD [Med Staff - Active Staff, General Surgery] - Within 2 Weeks Disposition Disposition (needs filled in before D/C Order can be placed): Home, Self Care Charges/Coding Visit Charges Inpatient E&M: 32002 Disch Hosp >30min
--- NOTE | 2025-06-07 14:43 | PHA.DC.MR.R ---
Pharmacy [place] Med Reconciliation Pharmacy Service has performed discharge medication reconciliation for this patient. Medication education papers prepared, patient discharged before I could personnel counselor. Medications reviewed. The patient's discharge medication list was reviewed for discrepancies and discrepancies were resolved. Medications at Discharge Home Medications acarbose 100 mg tablet (Precose) 100 mg PO BID . 11/12/16 atenolol 50 mg tablet 50 mg PO BID BLOOD PRESSURE 11/12/16 losartan 100 mg tablet 100 mg PO QHS BP 11/12/16 cinnamon bark 500 mg capsule 500 mg PO BID . 05/20/19 Held on 06/07/25. Instructions: Hold for 1 week furosemide 20 mg tablet 20 mg PO DAILY WATER PILL 05/20/19 glimepiride 4 mg tablet 4 mg PO BID dm 05/20/19 warfarin 5 mg tablet 4 mg PO DAILY HX DVT 05/20/19 Held on 06/07/25. Instructions: Hold for 5 days until complete warfarin 5 mg daily and then back to 4 mg daily. ascorbic acid (vitamin C) 1,000 mg tablet (Vitamin C) 1 g PO DAILY . 05/08/21 cholecalciferol (vitamin D3) 25 mcg (1,000 unit) capsule (Vitamin D3) 50 mcg PO DAILY REPLACEMENT 05/08/21 multivitamin 1 tab PO DAILY SUPPLEMENT 05/08/21 pioglitazone 30 mg tablet 15 mg PO DAILY . 05/08/21 atorvastatin 20 mg tablet 20 mg PO QHS CHOLESTEROL #30 tabs 05/15/21 tirzepatide 10 mg/0.5 mL subcutaneous pen injector (Mounjaro) 10 mg subcut QWEEK DM 01/05/25 alpha lipoic acid 600 mg capsule 600 mg PO BID . 06/03/25 finerenone 20 mg tablet (Kerendia) 20 mg PO DAILY . 06/03/25 hydralazine 50 mg tablet 50 mg PO QHS BP 06/03/25 levothyroxine 50 mcg tablet 50 mcg PO DAILY THY 06/03/25 amoxicillin 875 mg-potassium clavulanate 125 mg tablet 1 tab PO BID 6 days #12 tabs 06/07/25 warfarin 5 mg tablet (Jantoven) 5 mg PO DINNER 5 days #5 tabs 06/07/25
== END 2025-06-07 14:39 | disposition home or self-care (01) | DRG 445 ==
LOC: ED 20:43 → MS3 20:54
PROVIDERS: Anesthesiology; Physician Assistant; Surgery; Admitting Provider Student in an Organized Health Care Education/Training Program; Emergency Provider Emergency Medicine; PCP Family Medicine; Visit Provider Internal Medicine
DX: K80.00 Calculus of gallbladder with acute cholecystitis without obstruction (principal); N17.9 Acute kidney failure, unspecified; E11.22 Type 2 diabetes mellitus with diabetic chronic kidney disease; N18.31 Chronic kidney disease, stage 3a; E03.9 Hypothyroidism, unspecified; I12.9 Hypertensive chronic kidney disease with stage 1 through stage 4 chronic kidney disease, or unspecified chronic kidney disease; K76.0 Fatty (change of) liver, not elsewhere classified; E78.5 Hyperlipidemia, unspecified; E11.65 Type 2 diabetes mellitus with hyperglycemia; R09.02 Hypoxemia; Z79.01 Long term (current) use of anticoagulants; Z79.84 Long term (current) use of oral hypoglycemic drugs; Z79.85 Long-term (current) use of injectable non-insulin antidiabetic drugs; Z79.890 Hormone replacement therapy; Z79.899 Other long term (current) drug therapy; Z86.16 Personal history of COVID-19; Z86.718 Personal history of other venous thrombosis and embolism
CPT/HCPCS: 36415; 71045; 74177; 76705; 77012; 80048; 80053; 80076; 81001; 82962; 83036; 84443; 85025; 85610; 85730; 86900; 86901; 87070; 87075; 87205; 93005; 97116; 97162; 97165; 97530; 97535; 99156; 99157; 99284; P9017; Q9967; A4216; J2405

== ENCOUNTER → 2025-06-09 | Outpatient (CLI) | payer MEDICARE, OTHER, SELFPAY ==
[2025-06-09 19:03] LABS: T4 Total, Thyroxin 8.7 ug/dL (4.5-12.1)
== END | disposition home or self-care (01) ==
LOC: MFPLAB 14:34
PROVIDERS: PCP Family Medicine; Visit Provider Family Medicine
DX: E03.9 Hypothyroidism, unspecified (principal)
CPT/HCPCS: 36415; 84436; 84439; 84443

== ENCOUNTER 2025-06-23 19:17 | Inpatient (IN) | payer MEDICARE, OTHER, SELFPAY ==
[2025-06-23] VITALS (8 sets, daily range): BP systolic 94–138; BP diastolic 49–76; PULSE 71–84; RESP 16–28; TEMP 36.9–37.8; O2SAT 96–99
--- NOTE | 2025-06-23 20:13 | CT_ITS ---
PROCEDURE: CT/Abdomen/Pelvis W IV Cont ONLY
--- NOTE | 2025-06-23 20:19 | EX.ED.DYSGE1 ---
HPI History of Present Illness Chief Complaint: Abd Pain Narrative Narrative: Chief complaint and HPI: 74-year-old male with past medical history of acute cholecystitis status post CT-guided cholecystostomy tube on 06/05, DM2, HTN, history of DVT on warfarin presents for evaluation of fever and right upper quadrant abdominal pain. History taken by patient as well as medical record. On chart review, patient was admitted to our hospital in May and discharged on 06/07/2025. At that time had acute cholecystitis with cholecystostomy tube placed. Surgery was not able to be performed secondary to hypotension. He followed up with Dr. Jacob on 06/15/2021 and plan is for cholecystectomy on June 29 while holding Coumadin. Patient states he took his last dose of Coumadin this evening and is supposed to stop tomorrow morning. States today he developed a fever and worsening right upper quadrant pain. States his biliary drain has not been draining since Thursday. PCP recommended him to come to the emergency department. He denies any shortness of breath, chest pain, nausea, vomiting, diarrhea, constipation, dysuria, urinary symptoms. Review of systems: See HPI Medications: As listed on the chart Allergies: As listed on the chart PFSH: Per chart Vital signs: As listed on the chart. Reviewed. Physical exam: Gen: A&O x3, NAD Head: Normocephalic, atraumatic Eyes: No sclera icterus, conjunctiva clear ENT: Moist mucous membranes CV: RRR, no murmurs Resp: Lungs CTA BL, no w/r/c GI: Abd soft, non-distended, mildly tender to palpation of the right upper quadrant with cholecystostomy drain with bilious output in the tube but nothing in the suction bulb, no rebound or rigidity Musc: Full ROM, no deformity Skin: Warm, dry Neuro: Alert, oriented, grossly intact, sensation intact Psych: Cooperative, appropriate mood and affect [facility] Medical History Thyroid disease Ambulates with cane Back pain Dietary restriction History of pain when walking History of edema Chronic anticoagulation Wears glasses Non-smoker CPAP (continuous positive airway pressure) dependence Hypertension COVID-19 DVT (deep venous thrombosis) Diabetes HLD (hyperlipidemia) Home Medications ?Medication ?Instructions ?Recorded ?Last Taken ?Type acarbose 100 mg tablet (Precose) 100 mg PO BID . 11/12/16 05/20/19 History atenolol 50 mg tablet 50 mg PO BID BLOOD PRESSURE 11/12/16 05/20/19 History losartan 100 mg tablet 100 mg PO QHS BP 11/12/16 05/19/19 History cinnamon bark 500 mg capsule 500 mg PO BID . 05/20/19 05/20/19 History furosemide 20 mg tablet 20 mg PO QHS WATER PILL 05/20/19 05/20/19 History glimepiride 4 mg tablet 4 mg PO BID dm 05/20/19 05/20/19 History ascorbic acid (vitamin C) 1,000 mg 1 g PO DAILY . 05/08/21 Unknown History tablet (Vitamin C) cholecalciferol (vitamin D3) 25 50 mcg PO DAILY REPLACEMENT 05/08/21 Unknown History mcg (1,000 unit) capsule (Vitamin D3) multivitamin 1 tab PO DAILY SUPPLEMENT 05/08/21 Unknown History pioglitazone 30 mg tablet 15 mg PO DAILY . 05/08/21 Unknown History atorvastatin 20 mg tablet 20 mg PO QHS CHOLESTEROL #30 tabs 05/15/21 Unknown Rx tirzepatide 10 mg/0.5 mL 10 mg subcut ABREU DM 01/05/25 06/18/25 History subcutaneous pen injector (Mounjaro) alpha lipoic acid 600 mg capsule 600 mg PO BID . 06/03/25 Unknown History finerenone 20 mg tablet (Kerendia) 20 mg PO DAILY . 06/03/25 Unknown History hydralazine 50 mg tablet 50 mg PO QHS BP 06/03/25 Unknown History levothyroxine 50 mcg tablet 50 mcg PO DAILY THY 06/03/25 Unknown History warfarin 5 mg tablet (Jantoven) 5 mg PO DINNER 5 days #5 tabs 06/07/25 Unknown Rx Allergy/AdvReac Type Severity Reaction Status Date / Time No Known Allergies Allergy Verified 06/23/25 19:21 Family History Father Heart disease Mother CVA (cerebral vascular accident) Surgical History Hx of right cataract extraction Hx of left cataract extraction History of nasal septoplasty H/O percutaneous insertion of cholecystostomy tube History of surgical procedure on mouth Hx of tonsillectomy History of back surgery Social History (Updated 06/23/25 @ 19:57 by Ritu Berrios) housing: house Smoking Status: Never smoker substance use type: does not use EXAM Physical Exam Const Vital Signs: 06/23/25 19:18 06/23/25 19:56 06/23/25 20:20 Temperature 98.5 F 99.3 F H 100.1 F H Temperature Source Oral Oral Oral Pulse Rate 78 83 81 Respiratory Rate 18 16 28 H Blood Pressure 122/76 H 138/58 H 128/54 H Blood Pressure Mean 91 84 78 Pulse Ox 97 97 96 Oxygen Delivery Method Room Air Room Air Room Air 06/23/25 21:00 06/23/25 22:00 06/23/25 22:48 Temperature 100.1 F H 99.2 F H 99.2 F H Temperature Source Oral Oral Oral Pulse Rate 84 76 72 Respiratory Rate 20 H 20 H 16 Blood Pressure 124/62 H 100/49 L 94/53 L Blood Pressure Mean 82 66 66 Pulse Ox 96 99 99 Oxygen Delivery Method Room Air Room Air Room Air 06/23/25 23:00 06/23/25 23:36 06/24/25 00:00 Temperature Temperature Source Pulse Rate 80 71 77 Respiratory Rate 16 17 16 Blood Pressure 95/52 L 99/55 L 100/52 L Blood Pressure Mean 66 69 68 Pulse Ox 99 98 99 Oxygen Delivery Method 06/24/25 00:21 Temperature 98.3 F Temperature Source Pulse Rate 77 Respiratory Rate 16 Blood Pressure 100/52 L Blood Pressure Mean 68 Pulse Ox 99 Oxygen Delivery Method MDM MDM MDM Narrative Medical decision making narrative: 74-year-old male with past medical history of acute cholecystitis status post CT-guided cholecystostomy tube on 06/05, DM2, HTN, history of DVT on warfarin presents for evaluation of fever and right upper quadrant abdominal pain. History taken by patient as well as medical record. On chart review, patient was admitted to our hospital in May and discharged on 06/07/2025. At that time had acute cholecystitis with cholecystostomy tube placed. Surgery was not able to be performed secondary to hypotension. He followed up with Dr. Jacob on 06/15/2021 and plan is for cholecystectomy on June 29 while holding Coumadin. Today developed fever and right upper quad abdominal pain. On presentation patient has mildly elevated temperature at 99.3 otherwise vitals unremarkable. Differential diagnosis includes but is not limited to cholecystitis, pancreatitis, electrolyte abnormality, UTI. Laboratory workup ordered including CT abdomen and pelvis. NS bolus ordered. Patient offered pain medicine but declined. CBC without leukocytosis or anemia. Platelets unremarkable. INR 1.5. BMP shows baseline renal insufficiency with a creatinine of 1.76. Hepatic panel without transaminitis, hyperbilirubinemia. Lipase unremarkable. Lactic acid unremarkable. UA negative for UTI. Patient became febrile in the emergency department therefore Tylenol ordered. Blood pressure becoming soft. Another NS bolus ordered. Patient had a delay in his care due to CT abdomen pelvis not being read by radiology. Radiology received multiple calls from myself, CT techs, and nursing. The CT abdomen pelvis was finally read. Distended, diffuse thickened gallbladder containing layering sludge and debris with diffuse thickening of the wall of the gallbladder, probable acute cholecystitis. Biliary drain noted and distended gallbladder. Unchanged diffuse hepatic steatosis. Patient's symptoms are secondary to acute cholecystitis. Zosyn ordered. General surgery Dr. Douglas was consulted and patient was discussed. Plan will be for hospital admission. Patient was updated of all the results and confirmed understanding the plan. I spoke with the hospitalist service, Dr. Pearl. Her concern is if patient needs another percutaneous drain we do not have this available. She will personally talk with general surgery over the phone and relay the plan of admission versus transfer with me. Patient signed out to Dr. Forde who will await the final plan by Dr. Pearl. Impression: 1. Acute cholecystitis with cholecystostomy tube placed on 06/05 2. History of cholecystitis Lab Data Labs: Laboratory Results - last 24 hr 06/23/25 06/23/25 20:03 22:46 WBC 7.6 RBC 4.27 L Hgb 13.3 Hct 40.4 MCV 94.6 H MCH 31.1 MCHC 32.9 RDW Std Deviation 50.8 H RDW Coeff of Geovanna 14.6 Plt Count 353 MPV 9.5 Immature Gran % (Auto) 1.600 H Neut % (Auto) 84.1 H Lymph % (Auto) 7.7 L [place] % (Auto) 5.8 Eos % (Auto) 0.1 Baso % (Auto) 0.7 Absolute Neuts (auto) 6.4 Absolute Lymphs (auto) 0.58 L Nucleated RBC % 0 PT 18.2 H INR 1.5 Sodium 138 Potassium 4.0 Chloride 100 Carbon Dioxide 24.5 Anion Gap 13 BUN 22 H Creatinine 1.76 H Est GFR (MDRD) Non-Af 41 L BUN/Creatinine Ratio 12.7 Glucose 101 H Lactic Acid 1.0 Calcium 9.1 Total Bilirubin 0.54 Direct Bilirubin 0.23 AST 25 ALT 22 Alkaline Phosphatase 98 Total Protein 6.7 Albumin 3.6 Globulin 3.1 Lipase 44 Urine Color Yellow Urine Clarity Clear Urine pH 6.0 Ur Specific [place] 1.015 Urine Protein 15 H Urine Glucose (UA) Normal Urine Ketones Negative Urine Occult Blood Negative Urine Nitrite Negative Urine Bilirubin Negative Urine Urobilinogen Normal Ur Leukocyte Esterase Negative Urine RBC 0-5 SEEN Urine WBC 0-5 SEEN Ur Squamous Epith Cells 0 SEEN Urine Bacteria 0 SEEN Urine Mucus RARE Radiography Diagnostic Testing: Clinical Impression(s) from Imaging Studies Abdomen/Pelvis CT 06/23/25 20:13 IMPRESSION: Distended, diffusely thickened gallbladder containing layering sludge and debris with diffuse thickening of the wall of the gallbladder, probably acute cholecystitis. Biliary drain is noted in the distended gallbladder in the interim. Unchanged diffuse hepatic steatosis. Interval appearance of minimal right pleural effusion. Epiploic appendagitis of the descending colon the left midabdomen, mildly improved. Distended bladder suggestive of retention. Reading Location: [place] [address] Discharge Plan Triage Chief Complaint: Abd Pain ED Provider: Willie Puentes Dx/Rx/DC Orders Prescriptions: No Action Mounjaro 10 mg/0.5 mL pen injector 10 mg subcut ABREU acarbose [Precose] 100 MG tablet 100 mg PO BID Patient Comments: 1/2 TO 1 TABLET BEFORE EACH MEAL TO REDUCE SUGAR ABSORPTION losartan 100 MG tablet 100 mg PO QHS atenolol 50 MG tablet 50 mg PO BID glimepiride 4 MG tablet 4 mg PO BID Patient Comments: Take 1/2 Tablet twice daily HOLD IF LOW GLUCOSE OR DIZZY furosemide 20 MG tablet 20 mg PO QHS cinnamon bark 500 MG capsule 500 mg PO BID multivitamin Tablet 1 tab PO DAILY ascorbic acid (vitamin C) [Vitamin C] 1,000 mg Tablet 1 g PO DAILY pioglitazone 30 mg tablet 15 mg PO DAILY cholecalciferol (vitamin D3) [Vitamin D3] 25 mcg (1,000 unit) Capsule 50 mcg PO DAILY atorvastatin 20 mg Tablet 20 mg PO QHS Qty: 30 0RF Kerendia 20 mg tablet 20 mg PO DAILY hydralazine 50 mg tablet 50 mg PO QHS levothyroxine 50 mcg tablet 50 mcg PO DAILY alpha lipoic acid 600 mg capsule 600 mg PO BID warfarin [Jantoven] 5 mg Tablet 5 mg PO DINNER 5 Days Qty: 5 0RF Rx Instructions: INR in 2 days on 06/10/2025 Primary Care Provider: Enzo Jasso Referrals: Enzo Jasso MD [Primary Care Provider, Family Practice] Print Language: Hebrew
[2025-06-23] MEDS: 0.9% Normal Saline (1000mL) 1,000 ML 999 ML IV (20:27)
[2025-06-23 20:39] LABS: Hematocrit 40.4 % (40-54); Hemoglobin 13.3 g/dL (13.0-16.5); Immature Granulocytes Count 0.120 X10^3/uL (0.0-0.0); Mean Corp Hgb Conc 32.9 g/dL (32-36); Mean Corpuscular Volume 94.6 fL (80-94); Mean Platelet Vol. 9.5 fl (6.2-12.0); NRBC Flagged by Analyzer 0 % (0-5); POSITIVE DIFFERENTIAL YES; Platelet Count 353 K/mm3 (150-450); RBC Distribution Width CV 14.6 % (11.6-14.6); RBC Distribution Width SD 50.8 fl (35.1-43.9); Red Blood Count 4.27 M/mm3 (4.6-6.2); White Blood Count 7.6 K/mm3 (4.4-11.0)
[2025-06-23 20:51] LABS: Prothrombin Time (Protime)PT. 18.2 SECONDS (11.7-14.9)
[2025-06-23 21:19] LABS: AST(SGOT) 25 U/L (<=37); Alanine Aminotransfer ALT/SGPT 22 U/L (<=46); Albumin, Serum 3.6 g/dL (3.4-4.8); Alkaline Phosphatase 98 U/L (40-129); Anion Gap 13 (5-15); BUN 22 mg/dL (4-19); BUN/Creat Ratio 12.7 RATIO (10-20); Bilirubin, Direct 0.23 mg/dL (0.00-0.30); Calcium,Total 9.1 mg/dL (7.6-11.0); Carbon Dioxide 24.5 mmol/L (21.0-32.0); Chloride 100 mmol/L (98-108); Globulin 3.1 g/dL (2.2-4.2); Glucose 101 mg/dL (70-99); Lipase 44 U/L (13-75); Potassium 4.0 mmol/L (3.3-5.1)
[2025-06-23 22:52] LABS: Squamous Epithelial Cells - UA 0 SEEN /hpf (0-5)
[2025-06-23 22:57] LABS: Color, Urine Yellow (Yellow); Glucose, Dipstick Normal (Normal); Ketone-Dipstick Negative (Negative); Leukocyte Esterase-Dipstick Negative /ul (Negative); Nitrite-Dipstick Negative (Negative); Occult Blood-Urine Negative /ul (Negative); Protein-Dipstick 15 mg/dl (Negative); Specific Gravity, Urine 1.015 (1.002-1.030); Urine Bilirubin Dipstick Negative (Negative)
[2025-06-23] MEDS: 0.9% Normal Saline (1000mL) 1,000 ML 1000 ML IV (23:00)
[2025-06-23 23:08] LABS: Red Blood Cells-Urine 0-5 SEEN /hpf (0-5)
[2025-06-23 23:09] LABS: Mucous, Urine RARE /hpf (<or=2+)
[2025-06-24] VITALS (10 sets, daily range): BP systolic 100–142; BP diastolic 52–74; PULSE 65–77; RESP 16–20; TEMP 36.6–37.2; O2SAT 95–99; BMI 36.2; BMI 36.0
[2025-06-24] MEDS: Piperacil/Tazobactam 3.375 GM in 0.9% Normal Saline (50mL MB+) 50 ML IV ×4 (00:34→23:41)
--- NOTE | 2025-06-24 00:46 | PCM.HP.STD ---
HPI - General General Date of Admission: 06/24/25 Date of Service: 06/24/25 Chief Complaint: Abdominal pain HPI Narrative BRENDON DAVID, is a 74 M who presented to the emergency department [facility] on 06/24/2025ted with a chief complaint of right upper quadrant pain. Patient had a recent admission here from 06/03/2025 through 06/07/2025 where he was diagnosed with acute cholecystitis and a percutaneous cholecystostomy tube was placed. General surgery was consulted however general surgery was not able to perform a cholecystectomy during the hospitalization due to hypotension. He he had posthospital follow-up with Dr. Jacob on 06/15/2025 and the plan was tentatively for cholecystectomy on 06/29/2025. He has been holding his Coumadin in preparation for this. Patient had a biliary drain at discharge but noted it had not been draining since Thursday. There has been some dark material in the tubing but nothing in the bulb of the Álvaro-Tony drain. During this time. He had increased pain as well so he decided, at the recommendation of his PCP, he decided to come to the emergency department for further evaluation. Vital signs on presentation showed a temperature of 98.5, heart rate 78, respiratory rate 18, blood pressure was 126/76 and pulse ox was 97% on room air CBC was unremarkable but he does have a left shift with an 84.1% neutrophilia. INR was 1.5. Chemistry panel shows chronic stable CKD with a creatinine of 1.76 (baseline 1.6-1.9). LFTs are within normal limits. Lactic acid was normal at 1. Lipase was 44. Urine is unremarkable. CT of the abdomen pelvis showed distended diffusely thickened gallbladder containing layering sludge and debris consistent with acute cholecystitis, biliary drain noted in the distended gallbladder, unchanged diffuse hepatic steatosis with minimal right pleural effusion and distended bladder suggestive of retention. [facility] Medical History Hypothyroidism Sleep apnea Thyroid disease Ambulates with cane Back pain Dietary restriction History of pain when walking History of edema Chronic anticoagulation Wears glasses Non-smoker CPAP (continuous positive airway pressure) dependence Hypertension COVID-19 DVT (deep venous thrombosis) Diabetes HLD (hyperlipidemia) Home Medications ?Medication ?Instructions ?Recorded ?Last Taken ?Type acarbose 100 mg tablet (Precose) 100 mg PO BID . 11/12/16 05/20/19 History atenolol 50 mg tablet 50 mg PO BID BLOOD PRESSURE 11/12/16 05/20/19 History losartan 100 mg tablet 100 mg PO QHS BP 11/12/16 05/19/19 History cinnamon bark 500 mg capsule 500 mg PO BID . 05/20/19 05/20/19 History furosemide 20 mg tablet 20 mg PO QHS WATER PILL 05/20/19 05/20/19 History glimepiride 4 mg tablet 2 mg PO BID dm 05/20/19 05/20/19 History ascorbic acid (vitamin C) 1,000 mg 1 g PO DAILY . 05/08/21 Unknown History tablet (Vitamin C) cholecalciferol (vitamin D3) 25 50 mcg PO DAILY REPLACEMENT 05/08/21 Unknown History mcg (1,000 unit) capsule (Vitamin D3) multivitamin 1 tab PO DAILY SUPPLEMENT 05/08/21 Unknown History pioglitazone 30 mg tablet 15 mg PO DAILY . 05/08/21 Unknown History atorvastatin 20 mg tablet 20 mg PO QHS CHOLESTEROL #30 tabs 05/15/21 Unknown Rx tirzepatide 10 mg/0.5 mL 10 mg subcut ABREU DM 01/05/25 06/18/25 History subcutaneous pen injector ([place]) Held on 06/24/25. Instructions: until after surgery finerenone 20 mg tablet (Kerendia) 20 mg PO DAILY . 06/03/25 Unknown History hydralazine 50 mg tablet 50 mg PO QHS BP 06/03/25 Unknown History levothyroxine 50 mcg tablet 50 mcg PO DAILY THY 06/03/25 Unknown History warfarin 5 mg tablet (Jantoven) 5 mg PO DINNER blood thinner 5 06/07/25 06/23/25 Rx days #5 tabs Allergy/AdvReac Type Severity Reaction Status Date / Time No Known Allergies Allergy Verified 06/23/25 19:21 Family History Father Heart disease Mother CVA (cerebral vascular accident) Surgical History Hx of right cataract extraction Hx of left cataract extraction History of nasal septoplasty H/O percutaneous insertion of cholecystostomy tube History of surgical procedure on mouth Hx of tonsillectomy History of back surgery Social History housing: house Smoking Status: Never smoker substance use type: does not use ROS Constitutional Constitutional: Denies anorexia, change in weight, chills, fatigue, fever(s), malaise, night sweats, weakness or other Eyes Eyes: Denies blurry vision, change in eye color, change in vision, discharge from eye(s), double vision, erythema, eye pain, loss of vision or other ENT HEENT: Denies abnormal hearing, dysphagia, ear pain, epistaxis, headache(s), hearing loss, nasal congestion, nasal discharge, post nasal drip, sinus pressure, sore throat or other Cardiovascular Cardiovascular: Denies chest pain, claudication, dyspnea on exertion, edema, lightheadedness, orthopnea, palpitations, paroxysmal nocturnal dyspnea, rapid heart rate, syncope or other Respiratory/Chest Respiratory/Chest: Denies cough, dyspnea, excessive phlegm production, hemoptysis, productive cough, shortness of breath at rest, shortness of breath with exertion, wheezing or other Gastrointestinal Gastrointestinal: Reports abdominal pain and nausea; Denies coffee ground emesis, constipation, diarrhea, dyspepsia, hematemesis, hematochezia, loose stools, melena, vomiting or other Genitourinary Genitourinary: Reports difficulty urinating and urinary hesitancy; Denies burning urination, dysuria, hematuria, nocturia, urinary frequency, urinary incontinence, urinary urgency or other Musculoskeletal Musculoskeletal: Denies arthralgias, back pain, joint pain, joint stiffness, joint swelling, myalgias, neck pain or other Neurologic Neurologic: Denies abnormal gait, abnormal speech, confusion, disequilibrium, dizziness, focal weakness, headache(s), numbness, paresthesias, seizure-like activity, seizures, syncope, tingling, tremor(s) or other Psychiatric Psychiatric: Denies anxiety, depression, homicidal ideation, suicidal ideation or other Endocrine Endocrinology: Denies change in body appearance, cold intolerance, excessive sweating, heat intolerance, polydipsia, polyuria or other Hematologic/Lymphatic Hematologic/Lymphatic: Denies anemia, easy bleeding, easy bruising, lymphadenopathy or other Allergic/Immunologic Allergic/Immunologic: Denies rhinitis, hives, eczemia, asthma or other Vital Signs Vital Signs Vital Signs: 11/07/25 19:18 06/23/25 19:56 06/23/25 20:20 Temperature 98.5 F 99.3 F H 100.1 F H Temperature Source Oral Oral Oral Pulse Rate 78 83 81 Respiratory Rate 18 16 28 H Blood Pressure 122/76 H 138/58 H 128/54 H Blood Pressure Mean 91 84 78 Pulse Ox 97 97 96 Oxygen Delivery Method Room Air Room Air Room Air 06/23/25 21:00 06/23/25 22:00 06/23/25 22:48 Temperature 100.1 F H 99.2 F H 99.2 F H Temperature Source Oral Oral Oral Pulse Rate 84 76 72 Respiratory Rate 20 H 20 H 16 Blood Pressure 124/62 H 100/49 L 94/53 L Blood Pressure Mean 82 66 66 Pulse Ox 96 99 99 Oxygen Delivery Method Room Air Room Air Room Air 06/23/25 23:00 06/23/25 23:36 06/24/25 00:00 Temperature Temperature Source Pulse Rate 80 71 77 Respiratory Rate 16 17 16 Blood Pressure 95/52 L 99/55 L 100/52 L Blood Pressure Mean 66 69 68 Pulse Ox 99 98 99 Oxygen Delivery Method 06/24/25 00:21 Temperature 98.3 F Temperature Source Pulse Rate 77 Respiratory Rate 16 Blood Pressure 100/52 L Blood Pressure Mean 68 Pulse Ox 99 Oxygen Delivery Method Physical Exam Const alert, oriented x3, no apparent distress and well nourished Constitutional Narrative: Obese, older, white male, sitting up in bed, appears comfortable, nontoxic General Appearance: cooperative HEENT normocephalic, head/scalp atraumatic and moist oral mucous membranes; Negative for hearing grossly normal bilaterally HEENT Narrative: Mild to moderate hearing loss, edentulous, Mallampati is 3, no thrush Eyes EOMs intact bilaterally and conjunctivae normal Eyes Narrative: No scleral icterus Neck supple Neck Narrative: Trachea midline Resp normal respiratory effort, no retractions, no use of accessory muscles and clear to auscultation bilaterally Auscultation: Negative for rales, rhonchi or wheezes Cardio regular rate, regular rhythm, S1 normal heart sound, S2 normal heart sound, no murmurs, no rub, no gallops and no clicks GI soft to palpation and non-distended; Negative for hepatosplenomegaly GI Narrative: Mild tenderness right upper quadrant, PERC macho drain in place, bulb was empty but tubing had some dark liquid in it but not significant amount Extremity Extremity Narrative: Bilateral lower extremity chronic swelling that is pitting in nature, no cyanosis or clubbing Skin Skin Narrative: Lower extremities with chronic venous stasis changes Neuro oriented x3, moves all extremities and no focal motor deficits Neuro Narrative: Generalized weakness but no focal deficits Speech: speech normal Psych affect normal Psych Narrative: Appears comfortable Results Lab / Micro Data 06/23/25 20:03 06/23/25 20:03 Labs: Laboratory Results - last 24 hr 06/23/25 20:03: WBC 7.6, RBC 4.27 L, Hgb 13.3, Hct 40.4, MCV 94.6 H, MCH 31.1, MCHC 32.9, RDW Std Deviation 50.8 H, RDW Coeff of Geovanna 14.6, Plt Count 353, MPV 9.5, Immature Gran % (Auto) 1.600 H, Neut % (Auto) 84.1 H, Lymph % (Auto) 7.7 L, [place] % (Auto) 5.8, Eos % (Auto) 0.1, Baso % (Auto) 0.7, Absolute Neuts (auto) 6.4, Absolute Lymphs (auto) 0.58 L, Nucleated RBC % 0, PT 18.2 H, INR 1.5, Sodium 138, Potassium 4.0, Chloride 100, Carbon Dioxide 24.5, Anion Gap 13, BUN 22 H, Creatinine 1.76 H, Est GFR (MDRD) Non-Af 41 L, BUN/Creatinine Ratio 12.7, Glucose 101 H, Lactic Acid 1.0, Calcium 9.1, Total Bilirubin 0.54, Direct Bilirubin 0.23, AST 25, ALT 22, Alkaline Phosphatase 98, Total Protein 6.7, Albumin 3.6, Globulin 3.1, Lipase 44 06/23/25 22:46: Urine Color Yellow, Urine Clarity Clear, Urine pH 6.0, Ur Specific [place] 1.015, Urine Protein 15 H, Urine Glucose (UA) Normal, Urine Ketones Negative, Urine Occult Blood Negative, Urine Nitrite Negative, Urine Bilirubin Negative, Urine Urobilinogen Normal, Ur Leukocyte Esterase Negative, Urine RBC 0-5 SEEN, Urine WBC 0-5 SEEN, Ur Squamous Epith Cells 0 SEEN, Urine Bacteria 0 SEEN, Urine Mucus RARE Imaging Radiology Impression Abdomen/Pelvis CT 06/23/25 20:13 IMPRESSION: Distended, diffusely thickened gallbladder containing layering sludge and debris with diffuse thickening of the wall of the gallbladder, probably acute cholecystitis. Biliary drain is noted in the distended gallbladder in the interim. Unchanged diffuse hepatic steatosis. Interval appearance of minimal right pleural effusion. Epiploic appendagitis of the descending colon the left midabdomen, mildly improved. Distended bladder suggestive of retention. Reading [facility] Assessment & Plan Assessment/Plan (1) Acute cholecystitis: PLAN: Plan Acute cholecystitis - Discussed case with general surgery, Dr. Douglas--> he would like to see if we are able to get the drain working he does realize we do not have anybody to put a new drain in over the weekend and would potentially be considering an earlier cholecystectomy as well. - N.p.o. 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 - Recommend weight loss JOSE - Continue home CPAP DM-2 - Hold oral agents to include acarbose glimepiride pioglitazone and Mounjaro -Every 6 hours SSI - Accu-Cheks as ordered Hypothyroidism - Continue home levothyroxine Essential hypertension/hyperlipidemia - Continue home statin - Continue home atenolol - Continue losartan--> may need to consider holding if going to [place] - Continue home hydralazine History of DVT - Remote - Coumadin is currently on hold Obesity - Recommend weight loss - BMI is 36.1 - Complicates treatment, prognosis, outcomes DVT prophylaxis - Coumadin on hold - Heparin 3 times daily for now CODE STATUS - Full code as verified on admission Charges/Coding Visit Charges Inpatient E&M: 15555 Init Hosp L2
[2025-06-24] MEDS: Lactated Ringers 1,000 ML 75 ML IV ×2 (03:22→17:15)
--- NOTE | 2025-06-24 05:55 | EKG12_ITS ---
Test Reason : AM EKG
[2025-06-24] MEDS: Heparin Injection (Vial) 5,000 UNIT/ML VIAL 5000 UNIT SC ×3 (06:26→22:28)
[2025-06-24] MEDS: 0.9% Saline Lock 10 ML Syringe IV ×2 (06:26→22:27)
[2025-06-24 06:43] LABS: Hematocrit 36.6 % (40-54); Hemoglobin 12.3 g/dL (13.0-16.5); Immature Granulocytes Count 0.150 X10^3/uL (0.0-0.0); Mean Corp Hgb Conc 33.6 g/dL (32-36); Mean Corpuscular Volume 93.6 fL (80-94); Mean Platelet Vol. 9.2 fl (6.2-12.0); NRBC Flagged by Analyzer 0 % (0-5); POSITIVE DIFFERENTIAL YES; Platelet Count 254 K/mm3 (150-450); RBC Distribution Width CV 14.8 % (11.6-14.6); RBC Distribution Width SD 50.8 fl (35.1-43.9); Red Blood Count 3.91 M/mm3 (4.6-6.2); White Blood Count 5.6 K/mm3 (4.4-11.0)
[2025-06-24 07:38] LABS: AST(SGOT) 26 U/L (<=37); Alanine Aminotransfer ALT/SGPT 19 U/L (<=46); Albumin, Serum 3.1 g/dL (3.4-4.8); Alkaline Phosphatase 87 U/L (40-129); Anion Gap 10 (5-15); BUN 22 mg/dL (4-19); BUN/Creat Ratio 12.7 RATIO (10-20); Calcium,Total 8.6 mg/dL (7.6-11.0); Carbon Dioxide 23.8 mmol/L (21.0-32.0); Chloride 104 mmol/L (98-108); Estimated Creatinine Clearance 54.51 ml/min (50-250); Globulin 2.8 g/dL (2.2-4.2); Glucose 82 mg/dL (70-99); Magnesium 2.0 mg/dL (1.5-2.2); Potassium 3.6 mmol/L (3.3-5.1)
[2025-06-24] MEDS: Cholecalciferol (VIT D3) 25 MCG TABLET (1,000 UNITS) 50 MCG PO (08:16)
--- NOTE | 2025-06-24 09:38 | PN.HOSP_ITS ---
Reason for Visit
--- NOTE | 2025-06-24 09:38 | PCM.PN.HOSP ---
Reason for Visit Chief Complaint: Abdominal pain Subjective Subjective Still with abdominal pain. Objective Data Objective Data Vital Signs: Vital Signs Temp Pulse Resp BP Pulse Ox O2 Del Method 36.9 C 72 18 142/74 H 97 Room Air 06/24/25 08:14 06/24/25 08:14 06/24/25 08:14 06/24/25 08:14 06/24/25 08:14 06/24/25 08:24 Oxygen Delivery Method Room Air Weight: 124 kg Body Mass Index (BMI) 36.0 Intake & Output: Intake and Output for Last 24 Hours 06/22/25 06/23/25 06/24/25 23:59 23:59 23:59 Intake Total 1000 / 1000 1050 / 1050 Output Total 300 / 300 Balance 1000 / 1000 750 / 750 Lab / Micro Data 06/24/25 06:02 06/24/25 06:02 Labs: Laboratory Results - last 24 hr 06/23/25 20:03: WBC 7.6, RBC 4.27 L, Hgb 13.3, Hct 40.4, MCV 94.6 H, MCH 31.1, MCHC 32.9, RDW Std Deviation 50.8 H, RDW Coeff of Geovanna 14.6, Plt Count 353, MPV 9.5, Immature Gran % (Auto) 1.600 H, Neut % (Auto) 84.1 H, Lymph % (Auto) 7.7 L, [place] % (Auto) 5.8, Eos % (Auto) 0.1, Baso % (Auto) 0.7, Absolute Neuts (auto) 6.4, Absolute Lymphs (auto) 0.58 L, Nucleated RBC % 0, PT 18.2 H, INR 1.5, Sodium 138, Potassium 4.0, Chloride 100, Carbon Dioxide 24.5, Anion Gap 13, BUN 22 H, Creatinine 1.76 H, Est GFR (MDRD) Non-Af 41 L, BUN/Creatinine Ratio 12.7, Glucose 101 H, Lactic Acid 1.0, Calcium 9.1, Total Bilirubin 0.54, Direct Bilirubin 0.23, AST 25, ALT 22, Alkaline Phosphatase 98, Total Protein 6.7, Albumin 3.6, Globulin 3.1, Lipase 44 06/23/25 22:46: Urine Color Yellow, Urine Clarity Clear, Urine pH 6.0, Ur Specific [place] 1.015, Urine Protein 15 H, Urine Glucose (UA) Normal, Urine Ketones Negative, Urine Occult Blood Negative, Urine Nitrite Negative, Urine Bilirubin Negative, Urine Urobilinogen Normal, Ur Leukocyte Esterase Negative, Urine RBC 0-5 SEEN, Urine WBC 0-5 SEEN, Ur Squamous Epith Cells 0 SEEN, Urine Bacteria 0 SEEN, Urine Mucus RARE 06/24/25 03:43: POC Glucose 88 06/24/25 06:02: WBC 5.6, RBC 3.91 L, Hgb 12.3 L, Hct 36.6 L, MCV 93.6, MCH 31.5, MCHC 33.6, RDW Std Deviation 50.8 H, RDW Coeff of Geovanna 14.8 H, Plt Count 254, MPV 9.2, Immature Gran % (Auto) 2.700 H, Neut % (Auto) 80.9 H, Lymph % (Auto) 7.6 L, [place] % (Auto) 7.6, Eos % (Auto) 0.7, Baso % (Auto) 0.5, Absolute Neuts (auto) 4.5, Absolute Lymphs (auto) 0.42 L, Nucleated RBC % 0, Sodium 138, Potassium 3.6, Chloride 104, Carbon Dioxide 23.8, Anion Gap 10, BUN 22 H, Creatinine 1.69 H, Estim Creat Clear Calc 54.51, Est GFR (MDRD) Non-Af 43 L, BUN/Creatinine Ratio 12.7, Glucose 82, Calcium 8.6, Phosphorus 3.0, Magnesium 2.0, Total Bilirubin 0.48, AST 26, ALT 19, Alkaline Phosphatase 87, Total Protein 6.0, Albumin 3.1 L, Globulin 2.8, Albumin/Globulin Ratio 1.1, TSH 3.310 06/24/25 06:29: POC Glucose 83 Radiography Diagnostic Testing: Radiology Impression Abdomen/Pelvis CT 06/23/25 20:13 IMPRESSION: Distended, diffusely thickened gallbladder containing layering sludge and debris with diffuse thickening of the wall of the gallbladder, probably acute cholecystitis. Biliary drain is noted in the distended gallbladder in the interim. Unchanged diffuse hepatic steatosis. Interval appearance of minimal right pleural effusion. Epiploic appendagitis of the descending colon the left midabdomen, mildly improved. Distended bladder suggestive of retention. Reading Location: [place] [id number] Physical Exam Const alert and no apparent distress HEENT head/scalp atraumatic and moist oral mucous membranes Resp normal respiratory effort, no retractions, no use of accessory muscles and clear to auscultation bilaterally Cardio regular rate, regular rhythm, S1 normal heart sound and S2 normal heart sound GI GI Narrative: distended. RUQ tenderness. Extremity normal to inspection Neuro Sensorium / Orientation: awake and alert Assessment & Plan Assessment/Plan (1) Acute cholecystitis: PLAN: Plan Acute cholecystitis drain placed last admission, last month. Outpatient plan was to have lap macho on 06/29. CT abd/pelvis 06/23 showed distended thickened gallbladder containing layering sludge and debris with diffuse thickening of the wall of the gallbladder. Billiary drain noted in the distended ballbladder. Drain recently stopped draining. CT shows drain still within the gallbladder. General surgery consulted. No IR coverage over the weekend. Abx with pip/tazo. Definitive mgmt of the acute cholecystitis per general surgery. Chronic conditions: CKD stage IIIb- Baseline serum creatinine looks to run between 1.6 and 1.9- Currently 1.76- Monitor closely JOSE- Continue home CPAP DM-2- Hold oral agents to include acarbose glimepiride pioglitazone and Mounjaro-Every 6 hours SSI- Accu-Cheks as ordered Hypothyroidism- Continue home levothyroxine Essential hypertension/hyperlipidemia- Continue home statin- Continue home atenolol- Continue losartan--> may need to consider holding if going to [place]- Continue home hydralazine History of DVT- Remote- Coumadin is currently on hold Obesity- Recommend weight loss- BMI is 36.1- Complicates treatment, prognosis, outcomes DVT prophylaxis- Coumadin on hold- Heparin 3 times daily for now CODE STATUS- Full code as verified on admission Charges/Coding Visit Charges Inpatient E&M: 13727 Subs Hosp L2
--- NOTE | 2025-06-24 13:34 | EX.PCM.CON.S ---
Assessment & Plan Assessment/Plan (1) Acute cholecystitis: PLAN: Plan The patient is a 74-year-old male who is tentatively scheduled for robotic cholecystectomy on of this week. This is for treatment of recent acute cholecystitis. Patient presented to the emergency department last night with right upper quadrant pain and questionable issues with the drain. He was subsidy admitted and placed on antibiotics overnight. Clinically he feels much improved today. His drain is functional as this was able to be easily flushed and irrigated with bilious output return. There is no need to replace the current drain nor transfer patient at this time. Would recommend continued antibiotics. Given the nature of his cholecystitis, would certainly benefit from a robotic cholecystectomy rather than a laparoscopic cholecystectomy. At this point I think it is safe to keep him on the schedule for . Patient could potentially be discharged to home and follow-up on if he is agreeable. HPI Consult Data Date of Consult: 06/24/25 HPI Narrative Reason for Consultation: Right upper quadrant pain HPI Narrative: BRENDON DAVID, is a 74 M who presented last evening to the [facility] emergency department with right upper quadrant abdominal pain. Patient was recently hospitalized with acute cholecystitis about 2 weeks ago. His gallbladder was treated with cholecystostomy tube placement. He is tentatively scheduled to undergo robotic cholecystectomy with Dr. Jacob this coming . His gallbladder was not removed during his last admission due to hypotension issues. Patient also has past medical history of diabetes, hypertension DVT on warfarin. Patient stopped his Coumadin last night and then developed some right upper quadrant pain. Patient also noted that his cholecystostomy tube had not drained any significant output since Thursday of this week. He was encouraged by his PCP to come to the emergency department. He was seen by the ER staff. His white count and LFTs were fairly unremarkable. CAT scan showed wall thickening of the gallbladder. He was subsequently admitted. General surgery consult was obtained. I saw the patient this morning and was easily able to strip his drain and was also able to flush/irrigate the cholecystostomy tube. This flushed and irrigated well. There was positive return of bilious output. Clinically he denies any significant abdominal pains today [facility] Medical History Hypothyroidism Sleep apnea Thyroid disease Ambulates with cane Back pain Dietary restriction History of pain when walking History of edema Chronic anticoagulation Wears glasses Non-smoker CPAP (continuous positive airway pressure) dependence Hypertension COVID-19 DVT (deep venous thrombosis) Diabetes HLD (hyperlipidemia) Home Medications ?Medication ?Instructions ?Recorded ?Last Taken ?Type acarbose 100 mg tablet (Precose) 100 mg PO BID . 11/12/16 05/20/19 History atenolol 50 mg tablet 50 mg PO BID BLOOD PRESSURE 11/12/16 05/20/19 History losartan 100 mg tablet 100 mg PO QHS BP 11/12/16 05/19/19 History cinnamon bark 500 mg capsule 500 mg PO BID . 05/20/19 05/20/19 History furosemide 20 mg tablet 20 mg PO QHS WATER PILL 05/20/19 05/20/19 History glimepiride 4 mg tablet 2 mg PO BID dm 05/20/19 05/20/19 History ascorbic acid (vitamin C) 1,000 mg 1 g PO DAILY . 05/08/21 Unknown History tablet (Vitamin C) cholecalciferol (vitamin D3) 25 50 mcg PO DAILY REPLACEMENT 05/08/21 Unknown History mcg (1,000 unit) capsule (Vitamin D3) multivitamin 1 tab PO DAILY SUPPLEMENT 05/08/21 Unknown History pioglitazone 30 mg tablet 15 mg PO DAILY . 05/08/21 Unknown History atorvastatin 20 mg tablet 20 mg PO QHS CHOLESTEROL #30 tabs 05/15/21 Unknown Rx tirzepatide 10 mg/0.5 mL 10 mg subcut ABREU DM 01/05/25 06/18/25 History subcutaneous pen injector (Mounjaro) Held on 06/24/25. Instructions: until after surgery finerenone 20 mg tablet (Kerendia) 20 mg PO DAILY . 06/03/25 Unknown History hydralazine 50 mg tablet 50 mg PO QHS BP 06/03/25 Unknown History levothyroxine 50 mcg tablet 50 mcg PO DAILY THY 06/03/25 Unknown History warfarin 5 mg tablet (Jantoven) 5 mg PO DINNER blood thinner 5 06/07/25 06/23/25 Rx days #5 tabs Allergy/AdvReac Type Severity Reaction Status Date / Time No Known Allergies Allergy Verified 06/23/25 19:21 Family History Father Heart disease Mother CVA (cerebral vascular accident) Surgical History Hx of right cataract extraction Hx of left cataract extraction History of nasal septoplasty H/O percutaneous insertion of cholecystostomy tube History of surgical procedure on mouth Hx of tonsillectomy History of back surgery Social History housing: house Smoking Status: Never smoker substance use type: does not use Physical Exam Narrative The patient is alert and oriented x 3. He is in no acute distress. Head is normocephalic and atraumatic. Pupils are equal round and reactive to light. Abdomen is soft. Minimal tenderness to palpation. Abdomen is obese Cholecystostomy tube appears to be in place. There was already bilious fluid filling the entire CHANDA tubing. I was able to strip the contents of the tubing into the bulb. I then disconnected the CHANDA tubing and flushed/irrigated the drain tube itself. This elida and flushed easily with positive return of bilious output. It was reconnected to bulb suction. Overall tube appears to be intact and functioning appropriately and does not need to be replaced at this point. Medical Records Data Attestation: I reviewed the patient's medical records Lab / Micro Data Attestation: I reviewed the patient's lab results. 06/24/25 06:02 06/24/25 06:02 Labs: Laboratory Results - last 24 hr 06/23/25 20:03: WBC 7.6, RBC 4.27 L, Hgb 13.3, Hct 40.4, MCV 94.6 H, MCH 31.1, MCHC 32.9, RDW Std Deviation 50.8 H, RDW Coeff of Geovanna 14.6, Plt Count 353, MPV 9.5, Immature Gran % (Auto) 1.600 H, Neut % (Auto) 84.1 H, Lymph % (Auto) 7.7 L, [place] % (Auto) 5.8, Eos % (Auto) 0.1, Baso % (Auto) 0.7, Absolute Neuts (auto) 6.4, Absolute Lymphs (auto) 0.58 L, Nucleated RBC % 0, PT 18.2 H, INR 1.5, Sodium 138, Potassium 4.0, Chloride 100, Carbon Dioxide 24.5, Anion Gap 13, BUN 22 H, Creatinine 1.76 H, Est GFR (MDRD) Non-Af 41 L, BUN/Creatinine Ratio 12.7, Glucose 101 H, Lactic Acid 1.0, Calcium 9.1, Total Bilirubin 0.54, Direct Bilirubin 0.23, AST 25, ALT 22, Alkaline Phosphatase 98, Total Protein 6.7, Albumin 3.6, Globulin 3.1, Lipase 44 06/23/25 22:46: Urine Color Yellow, Urine Clarity Clear, Urine pH 6.0, Ur Specific [place] 1.015, Urine Protein 15 H, Urine Glucose (UA) Normal, Urine Ketones Negative, Urine Occult Blood Negative, Urine Nitrite Negative, Urine Bilirubin Negative, Urine Urobilinogen Normal, Ur Leukocyte Esterase Negative, Urine RBC 0-5 SEEN, Urine WBC 0-5 SEEN, Ur Squamous Epith Cells 0 SEEN, Urine Bacteria 0 SEEN, Urine Mucus RARE 06/24/25 03:43: POC Glucose 88 06/24/25 06:02: WBC 5.6, RBC 3.91 L, Hgb 12.3 L, Hct 36.6 L, MCV 93.6, MCH 31.5, MCHC 33.6, RDW Std Deviation 50.8 H, RDW Coeff of Geovanna 14.8 H, Plt Count 254, MPV 9.2, Immature Gran % (Auto) 2.700 H, Neut % (Auto) 80.9 H, Lymph % (Auto) 7.6 L, [place] % (Auto) 7.6, Eos % (Auto) 0.7, Baso % (Auto) 0.5, Absolute Neuts (auto) 4.5, Absolute Lymphs (auto) 0.42 L, Nucleated RBC % 0, Sodium 138, Potassium 3.6, Chloride 104, Carbon Dioxide 23.8, Anion Gap 10, BUN 22 H, Creatinine 1.69 H, Estim Creat Clear Calc 54.51, Est GFR (MDRD) Non-Af 43 L, BUN/Creatinine Ratio 12.7, Glucose 82, Calcium 8.6, Phosphorus 3.0, Magnesium 2.0, Total Bilirubin 0.48, AST 26, ALT 19, Alkaline Phosphatase 87, Total Protein 6.0, Albumin 3.1 L, Globulin 2.8, Albumin/Globulin Ratio 1.1, TSH 3.310 06/24/25 06:29: POC Glucose 83 Imaging Radiology Impression Abdomen/Pelvis CT 06/23/25 20:13 IMPRESSION: Distended, diffusely thickened gallbladder containing layering sludge and debris with diffuse thickening of the wall of the gallbladder, probably acute cholecystitis. Biliary drain is noted in the distended gallbladder in the interim. Unchanged diffuse hepatic steatosis. Interval appearance of minimal right pleural effusion. Epiploic appendagitis of the descending colon the left midabdomen, mildly improved. Distended bladder suggestive of retention. Reading [facility]
[2025-06-25 03:17] VITALS: BP 103/64; PULSE 66; RESP 16; TEMP 36.9; O2SAT 94
[2025-06-25 05:15] VITALS: BMI 36.2
[2025-06-25 06:10] LABS: Hematocrit 34.9 % (40-54); Hemoglobin 11.3 g/dL (13.0-16.5); Immature Granulocytes Count 0.090 X10^3/uL (0.0-0.0); Mean Corp Hgb Conc 32.4 g/dL (32-36); Mean Corpuscular Volume 94.6 fL (80-94); Mean Platelet Vol. 9.6 fl (6.2-12.0); NRBC Flagged by Analyzer 0 % (0-5); Platelet Count 227 K/mm3 (150-450); RBC Distribution Width CV 14.6 % (11.6-14.6); RBC Distribution Width SD 51.3 fl (35.1-43.9); Red Blood Count 3.69 M/mm3 (4.6-6.2); White Blood Count 3.6 K/mm3 (4.4-11.0)
[2025-06-25] MEDS: Lactated Ringers 1,000 ML 75 ML IV (06:25)
[2025-06-25] MEDS: Heparin Injection (Vial) 5,000 UNIT/ML VIAL 5000 UNIT SC (06:28)
[2025-06-25] MEDS: Piperacil/Tazobactam 3.375 GM in 0.9% Normal Saline (50mL MB+) 50 ML IV (06:28)
[2025-06-25 06:36] LABS: AST(SGOT) 41 U/L (<=37); Alanine Aminotransfer ALT/SGPT 25 U/L (<=46); Albumin, Serum 2.9 g/dL (3.4-4.8); Alkaline Phosphatase 84 U/L (40-129); Anion Gap 9 (5-15); BUN 19 mg/dL (4-19); BUN/Creat Ratio 11.6 RATIO (10-20); Calcium,Total 8.2 mg/dL (7.6-11.0); Carbon Dioxide 22.8 mmol/L (21.0-32.0); Chloride 104 mmol/L (98-108); Estimated Creatinine Clearance 56.19 ml/min (50-250); Globulin 2.5 g/dL (2.2-4.2); Glucose 88 mg/dL (70-99); Potassium 3.6 mmol/L (3.3-5.1)
[2025-06-25 07:45] VITALS: BP 108/54; PULSE 64; RESP 16; TEMP 36.4; O2SAT 94
[2025-06-25] MEDS: Cholecalciferol (VIT D3) 25 MCG TABLET (1,000 UNITS) 50 MCG PO (10:48)
--- NOTE | 2025-06-25 12:43 | PCM.PN.SRG ---
Subjective Subjective Patient seen and evaluated on rounds earlier today. He states that he is doing well. He denies any right upper quadrant pain whatsoever. The patient as well as the nurse have noted continued drainage from the cholecystostomy tube. He denies any fevers or chills. He has tolerated diet well thus far Objective Data Objective Data Vital Signs: Vital Signs Temp Pulse Resp BP Pulse Ox O2 Del Method 97.5 F L 64 16 108/54 L 94 Room Air 06/25/25 07:45 06/25/25 07:45 06/25/25 07:45 06/25/25 07:45 06/25/25 07:45 06/25/25 07:57 Oxygen Delivery Method Room Air Weight: 273 lb 9.498 oz Body Mass Index (BMI) 36.2 Intake & Output: Intake and Output for Last 24 Hours 06/23/25 06/24/25 06/25/25 23:59 23:59 23:59 Intake Total 1000 / 1000 3100 / 3100 1087.5 / 1087.5 Output Total 620 / 620 Balance 1000 / 1000 2480 / 2480 1077.5 / 1077.5 Lab / Micro Data 06/25/25 05:35 06/25/25 05:35 Labs: Laboratory Results - last 24 hr 06/24/25 13:01: POC Glucose 92 06/24/25 17:08: POC Glucose 98 06/24/25 23:54: POC Glucose 87 06/25/25 05:35: WBC 3.6 L, RBC 3.69 L, Hgb 11.3 L, Hct 34.9 L, MCV 94.6 H, MCH 30.6, MCHC 32.4, RDW Std Deviation 51.3 H, RDW Coeff of Geovanna 14.6, Plt Count 227, MPV 9.6, Immature Gran % (Auto) 2.500 H, Neut % (Auto) 57.9, Lymph % (Auto) 22.7, [place] % (Auto) 14.7 H, Eos % (Auto) 1.1, Baso % (Auto) 1.1 H, Absolute Neuts (auto) 2.1, Absolute Lymphs (auto) 0.82 L, Nucleated RBC % 0, Sodium 136, Potassium 3.6, Chloride 104, Carbon Dioxide 22.8, Anion Gap 9, BUN 19, Creatinine 1.64 H, Estim Creat Clear Calc 56.19, Est GFR (MDRD) Non-Af 44 L, BUN/Creatinine Ratio 11.6, Glucose 88, Calcium 8.2, Total Bilirubin 0.51, AST 41 H, ALT 25, Alkaline Phosphatase 84, Total Protein 5.4 L, Albumin 2.9 L, Globulin 2.5, Albumin/Globulin Ratio 1.1 06/25/25 06:35: POC Glucose 97 06/25/25 11:34: POC Glucose 160 H Physical Exam Narrative The patient is alert and oriented x 3. He is in no acute distress. Abdomen is soft and obese. Minimal distention. No tenderness to palpation in the right upper quadrant. There is a small amount of bilious drainage in the cholecystostomy tube CHANDA bulb. Assessment & Plan Assessment/Plan (1) Acute cholecystitis: PLAN: Plan The patient is a 74-year-old male with a history of recent admission for acute cholecystitis. A cholecystectomy was not able to be performed during his recent admission due to issues with hypotension. Instead a cholecystostomy tube was placed. He quickly improved once this was inserted. Patient recently presented to the emergency department with some pain in the right upper quadrant and noted that the output from the cholecystostomy tube had diminished for several days. The tube was irrigated and flushed yesterday. It seemed to flush very easily. Since then it has been putting out normal output and his symptoms have resolved. The patient is already on the operative schedule for a robotic cholecystectomy this coming . I think it is most appropriate to let him go home on some oral antibiotics and return for outpatient cholecystectomy on . Charges/Coding Visit Charges Inpatient E&M: 81634 Subs Hosp L3
--- NOTE | 2025-06-25 13:16 | DCINST_ITS ---
Discharge Instructions
--- NOTE | 2025-06-25 13:16 | PCM.DC.SUM ---
Providers Date of Admission: 06/24/25 Date of Discharge: 06/25/25 Primary Care Physician: Dr. Enzo Jasso MD Consultations 06/24/25 02:20 Consult: General Surgery Routine Consulting Provider: Sukhjinder Douglas Reason for Consult: Acute cholecytitis EMERGENT Consult: No MD Notified: Yes Date Notified: 06/24/25 Time Notified: 00:39 Method of Notification: Verbal Reason For Visit: ACUTE CHOLECYSTITIS Diagnosis Discharge Diagnosis (1) Acute cholecystitis: Status: Acute Code(s): K81.0 - Acute cholecystitis Medications at Discharge Home Medications acarbose 100 mg tablet (Precose) 100 mg PO BID . 11/12/16 atenolol 50 mg tablet 50 mg PO BID BLOOD PRESSURE 11/12/16 losartan 100 mg tablet 100 mg PO QHS BP 11/12/16 Held on 06/25/25. Instructions: Resume on 06/30/25. Hold until after your gallbladder removal surgery. cinnamon bark 500 mg capsule 500 mg PO BID . 05/20/19 furosemide 20 mg tablet 20 mg PO QHS WATER PILL 05/20/19 Held on 06/25/25. Instructions: Resume on 06/30/25. Hold until after your gallbladder removal surgery. glimepiride 4 mg tablet 2 mg PO BID dm 05/20/19 ascorbic acid (vitamin C) 1,000 mg tablet (Vitamin C) 1 g PO DAILY . 05/08/21 cholecalciferol (vitamin D3) 25 mcg (1,000 unit) capsule (Vitamin D3) 50 mcg PO DAILY REPLACEMENT 05/08/21 multivitamin 1 tab PO DAILY SUPPLEMENT 05/08/21 pioglitazone 30 mg tablet 15 mg PO DAILY . 05/08/21 atorvastatin 20 mg tablet 20 mg PO QHS CHOLESTEROL #30 tabs 05/15/21 tirzepatide 10 mg/0.5 mL subcutaneous pen injector (Mounjaro) 10 mg subcut ABREU DM 01/05/25 Held on 06/25/25. Instructions: Resume on 06/30/25. Hold until after your gallbladder removal surgery. finerenone 20 mg tablet (Kerendia) 20 mg PO DAILY . 06/03/25 Held on 06/25/25. Instructions: Resume on 06/30/25. Hold until after your gallbladder removal surgery. hydralazine 50 mg tablet 50 mg PO QHS BP 06/03/25 Held on 06/25/25. Instructions: Resume on 06/30/25. Hold until after your gallbladder removal surgery. levothyroxine 50 mcg tablet 50 mcg PO DAILY THY 06/03/25 warfarin 5 mg tablet (Jantoven) 5 mg PO DINNER blood thinner 5 days #5 tabs 06/07/25 Held on 06/25/25. Instructions: Resume on 06/30/25. Hold until after your gallbladder removal surgery. amoxicillin 875 mg-potassium clavulanate 125 mg tablet 1 tab PO BID 5 days #10 tabs 06/25/25 Hospital Course Operations None Procedures - (CT abdomen pelvis with IV contrast) Summary of Care Provided Minutes Spent on Discharge: 38 Hospital Course: Patient is a 74-year-old male who presented to [facility] ED on 06/24/2025 with recurrent abdominal pain. Hospital course as noted below. Patient discharged home in stable condition on 06/25. 1. Acute cholecystitis ? General Surgery followed. Recent hospitalization here from 06/03-06/07 for same concern. Surgery was unable to perform a cholecystectomy at that time due to hypotension so percutaneous cholecystostomy tube was placed, with plan for cholecystectomy on 06/29. CT abdomen pelvis on this admit with distended, diffusely thickened gallbladder with diffuse wall thickening consistent with acute cholecystitis. Notably cholecystomy tube output had diminished and it was irrigated and flushed yesterday with return of good output. Patient did well on IV antibiotics here and was able to be escalated to a regular diet with no abdominal pain. Per surgery, okay for discharge home on p.o. Augmentin with plan for surgery as previously scheduled on 06/29. 2. Hypotension with history of hypertension/hyperlipidemia ? Patient consistently hypotensive to the low 100s systolic during this admission. Notably was hypotensive last admission as well and could not have cholecystectomy done due to this. Will continue home atenolol 50 mg twice daily on discharge. Otherwise will hold home hydralazine, Lasix, losartan and Kerendia until his surgery on . I did recommend patient check his blood pressure at home once daily and if it spikes significantly, would recommend he call his PCP to discuss which home medications to restart. Okay to continue home statin. 3. Remote history of DVT on Coumadin ? INR 1.5 on admit. Coumadin held here and patient was on heparin subcu for DVT prophylaxis. Will hold Coumadin until his surgery on . 4. Type 2 diabetes mellitus ? Treated with sliding scale insulin while here with good sugar control. Holding home Mounjaro until after his surgery. Okay to resume home pioglitazone and glimepiride on discharge. 5. CKD stage IIIb ? Creatinine stable at baseline 1.6-1.7 during this hospitalization. 6. Class II obesity with JOSE ? BMI 36 on admit. Complicated hospital course and care. Continue PAP therapy. *Patient improved more quickly than anticipated and was able to be discharged home on hospital day 2. Total clinical time spent by myself addressing the patient's medical issues, reviewing all the data, and collaborating with patient's care team: 38 minutes. Physical Exam Const alert, oriented x3 and no apparent distress Constitutional Narrative: Elderly male, class II obesity, sitting back comfortably in bed, conversing normally, in no acute distress. General Appearance: cooperative and comfortable HEENT normocephalic, head/scalp atraumatic, hearing grossly normal bilaterally, nasal mucous membranes and turbinates normal and moist oral mucous membranes Eyes PERRL, EOMs intact bilaterally and conjunctivae normal Neck full ROM Chest inspection of chest normal Resp normal respiratory effort, normal air movement, no use of accessory muscles and clear to auscultation bilaterally Cardio regular rate, regular rhythm, no murmurs and peripheral pulses 2+ throughout GI GI Narrative: Abdomen soft, nondistended and nontender to palpation on day of discharge. Back/Spine normal ROM Extremity normal to inspection, full ROM and no pedal edema Skin no rashes or lesions noted Psych mental status grossly normal Weight / BMI Weight Weight: 124.1 kg Body Mass Index (BMI) 36.2 ABG / Lab / Microbiology Data 06/25/25 05:35 06/25/25 05:35 Laboratory: Laboratory Results - last 24 hr 06/24/25 13:01: POC Glucose 92 06/24/25 17:08: POC Glucose 98 06/24/25 23:54: POC Glucose 87 06/25/25 05:35: WBC 3.6 L, RBC 3.69 L, Hgb 11.3 L, Hct 34.9 L, MCV 94.6 H, MCH 30.6, MCHC 32.4, RDW Std Deviation 51.3 H, RDW Coeff of Geovanna 14.6, Plt Count 227, MPV 9.6, Immature Gran % (Auto) 2.500 H, Neut % (Auto) 57.9, Lymph % (Auto) 22.7, Mcmullen % (Auto) 14.7 H, Eos % (Auto) 1.1, Baso % (Auto) 1.1 H, Absolute Neuts (auto) 2.1, Absolute Lymphs (auto) 0.82 L, Nucleated RBC % 0, Sodium 136, Potassium 3.6, Chloride 104, Carbon Dioxide 22.8, Anion Gap 9, BUN 19, Creatinine 1.64 H, Estim Creat Clear Calc 56.19, Est GFR (MDRD) Non-Af 44 L, BUN/Creatinine Ratio 11.6, Glucose 88, Calcium 8.2, Total Bilirubin 0.51, AST 41 H, ALT 25, Alkaline Phosphatase 84, Total Protein 5.4 L, Albumin 2.9 L, Globulin 2.5, Albumin/Globulin Ratio 1.1 06/25/25 06:35: POC Glucose 97 06/25/25 11:34: POC Glucose 160 H D/C Instructions DC O2, CPAP, BIPAP Needs Home O2 Discharge instructions: No Meaningful Use Info Meaningful Use Meaningful Use Diagnoses (Choose all that apply): None applicable Discharge Plan Admission Admit Date/Time: 06/24/25 00:38 Primary Reason for Your Visit: Abdominal pain Attending Provider: Aashish Hale Primary Care Provider: Enzo Jasso Consulting Providers: Sukhjinder Douglas; Daisy Pearl; Piper Chatman; Enzo Magallanes Instructions Additional Instructions / Restrictions: Please hold the following medications until after your surgery: ? Furosemide ? Kerendia ? Hydralazine ? Losartan ? Warfarin ? Mounjaro Your blood pressure was running low here, which is the reason we are holding your blood pressure medications as above. It is okay to continue your home atenolol. Please check your blood pressure at least once daily until surgery and if your blood pressure begins to run very high, please call your PCP office to discuss which medications to restart. Please take the Augmentin twice daily for the gallbladder infection. Discharge Orders/Prescriptions Prescriptions: New amoxicillin-pot clavulanate 875-125 mg tablet 1 tab PO BID 5 Days Qty: 10 0RF Continued acarbose [Precose] 100 MG tablet 100 mg PO BID Patient Comments: 1/2 TO 1 TABLET BEFORE EACH MEAL TO REDUCE SUGAR ABSORPTION atenolol 50 MG tablet 50 mg PO BID glimepiride 4 MG tablet 2 mg PO BID Patient Comments: Take 1/2 Tablet twice daily HOLD IF LOW GLUCOSE OR DIZZY cinnamon bark 500 MG capsule 500 mg PO BID multivitamin Tablet 1 tab PO DAILY ascorbic acid (vitamin C) [Vitamin C] 1,000 mg Tablet 1 g PO DAILY pioglitazone 30 mg tablet 15 mg PO DAILY cholecalciferol (vitamin D3) [Vitamin D3] 25 mcg (1,000 unit) Capsule 50 mcg PO DAILY atorvastatin 20 mg Tablet 20 mg PO QHS Qty: 30 0RF levothyroxine 50 mcg tablet 50 mcg PO DAILY Held Mounjaro 10 mg/0.5 mL pen injector 10 mg subcut ABREU Hold Instructions: Resume on 06/30/25. Hold until after your gallbladder removal surgery. losartan 100 MG tablet 100 mg PO QHS Hold Instructions: Resume on 06/30/25. Hold until after your gallbladder removal surgery. furosemide 20 MG tablet 20 mg PO QHS Hold Instructions: Resume on 06/30/25. Hold until after your gallbladder removal surgery. Kerendia 20 mg tablet 20 mg PO DAILY Hold Instructions: Resume on 06/30/25. Hold until after your gallbladder removal surgery. hydralazine 50 mg tablet 50 mg PO QHS Hold Instructions: Resume on 06/30/25. Hold until after your gallbladder removal surgery. warfarin [Jantoven] 5 mg Tablet 5 mg PO DINNER 5 Days Qty: 5 0RF Hold Instructions: Resume on 06/30/25. Hold until after your gallbladder removal surgery. Rx Instructions: INR in 2 days on 06/10/2025 Referrals / Follow Up: Enzo Jasso MD [Primary Care Provider, Family Practice] Sukhjinder Douglas MD [Med Staff - Active Staff, General Surgery] Disposition Disposition (needs filled in before D/C Order can be placed): Home, Self Care Charges/Coding Visit Charges Inpatient E&M: 23959 Disch Hosp >30min
[2025-06-25 13:51] VITALS: BP 107/51; PULSE 56; RESP 18; TEMP 36.8; O2SAT 96
== END 2025-06-25 14:04 | disposition home or self-care (01) | DRG 446 ==
LOC: ED 20:20 → MS3 06-24 01:06
PROVIDERS: Anesthesiology; Admitting Provider Internal Medicine; Emergency Provider Surgery; PCP Family Medicine; Visit Provider Hospitalist
DX: K81.0 Acute cholecystitis (principal); E03.9 Hypothyroidism, unspecified; E11.22 Type 2 diabetes mellitus with diabetic chronic kidney disease; N18.32 Chronic kidney disease, stage 3b; I12.9 Hypertensive chronic kidney disease with stage 1 through stage 4 chronic kidney disease, or unspecified chronic kidney disease; E66.812 Obesity, class 2; G47.33 Obstructive sleep apnea (adult) (pediatric); E78.5 Hyperlipidemia, unspecified; Z86.16 Personal history of COVID-19; Z79.899 Other long term (current) drug therapy; Z86.718 Personal history of other venous thrombosis and embolism; Z79.84 Long term (current) use of oral hypoglycemic drugs; Z79.01 Long term (current) use of anticoagulants; Z68.36 Body mass index [BMI] 36.0-36.9, adult
CPT/HCPCS: 36415; 74177; 80048; 80053; 80076; 81001; 82962; 83605; 83690; 83735; 84100; 84443; 85025; 85610; 87040; 93005; 94668; 99252; 99284; Q9967; A4216; G0463

== ENCOUNTER 2025-06-29 15:38 | Inpatient (IN) | payer MEDICARE, OTHER, SELFPAY ==
--- NOTE | 2025-06-26 16:32 | PAT.ANESEVAL ---
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 DID WELL WITH FESS 05/27/2022 Cholinesterase deficiency No 06/22/25 08:34 You/Your Family Experience No 06/22/25 08:34 fever (hyperthermia) with Relationship Recent Exposure to Contagious No 06/04/25 00:00 Disease Does patient have nerve No 06/22/25 08:34 stimulator Patient instructed to have device shut off --Does patient have Pacemaker or ICD? When Was Last Pacemaker Check QUESTION #4 FULL TEXT: You/Your Family Experience fever (hyperthermia) with Anesthesia Last Oral Intake Last Oral intake: Last Oral Intake NPO since Meds taken in AM with sips of water? 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 - paper supervisor Female No 06/22/25 08:34 HX of Motion Sickness No 06/22/25 08:34 HX of N/V After Surgery No 06/22/25 08:34 Non-Smoker Yes 06/22/25 08:34 Duration of Surgery greater Yes 06/22/25 08:34 than 60 minutes Number of Risk Factors 2 06/22/25 08:34 PONV Score Moderate Risk 06/22/25 08:34 Height & Weight Height & Weight: Anesthesia: Height & Weight Height 6 ft 1 in 06/16/25 13:57 Respiratory Assessment Respiratory Assessment - paper supervisor: Respiratory Tract Infection Hx - paper supervisor Hx Respiratory Tract Infection No 06/22/25 08:34 STOP Sleep Apnea STOP Sleep Apnea - paper supervisor: STOP Sleep Apnea - paper supervisor Hx Hypertension Yes: CONTROLLED WITH MEDS 06/22/25 08:34 Hx Sleep Apnea Yes 06/22/25 08:34 CPAP Yes: NONCOMPLIANT 06/22/25 08:34 BIPAP No 06/22/25 08:34 Do you snore loudly (louder than talking or can be heard Do you often feel tired/ fatigued/ sleepy during daytime? Has anyone observed you stop breathing during sleep? STOP Results Positive 06/22/25 08:34 QUESTION #5 FULL TEXT : Do you snore loudly (louder than talking or can be heard through closed doors)? 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 Specify any problems Hx of Preganancy in last 3 N/A 06/22/25 08:34 Months Nurse Filling Out Transfusion DSCHRIBER 06/22/25 08:34 & Questions: Date: 06/22/25 06/22/25 08:34 Time: 08:36 06/22/25 08:34 Patient unable to answer at this time (ie. confused, unrespo /Reproduction History /Reproductive History - paper supervisor: /Reproductive Hx- paper supervisor Hx Now No 06/22/25 08:34 Gestational Age (in weeks): EDC: Hx Hx Para Hx Section SAB No 06/22/25 08:34 Does the father of the baby or his family experience fever w Father of the baby Malignant Hypertension history comment [facility] Medical History Hypothyroidism Sleep apnea Thyroid disease Ambulates with cane Back pain Dietary restriction History of pain when walking History of edema Chronic anticoagulation Wears glasses Non-smoker CPAP (continuous positive airway pressure) dependence Hypertension COVID-19 DVT (deep venous thrombosis) Diabetes HLD (hyperlipidemia) Home Medications ?Medication ?Instructions ?Recorded ?Last Taken ?Type acarbose 100 mg tablet (Precose) 100 mg PO BID . 11/12/16 05/20/19 History atenolol 50 mg tablet 50 mg PO BID BLOOD PRESSURE 11/12/16 05/20/19 History losartan 100 mg tablet 100 mg PO QHS BP 11/12/16 05/19/19 History Held on 06/25/25. Instructions: Resume on 06/30/25. Hold until after your gallbladder removal surgery. cinnamon bark 500 mg capsule 500 mg PO BID . 05/20/19 05/20/19 History furosemide 20 mg tablet 20 mg PO QHS WATER PILL 05/20/19 05/20/19 History Held on 06/25/25. Instructions: Resume on 06/30/25. Hold until after your gallbladder removal surgery. glimepiride 4 mg tablet 2 mg PO BID dm 05/20/19 05/20/19 History ascorbic acid (vitamin C) 1,000 mg 1 g PO DAILY . 05/08/21 Unknown History tablet (Vitamin C) cholecalciferol (vitamin D3) 25 50 mcg PO DAILY REPLACEMENT 05/08/21 Unknown History mcg (1,000 unit) capsule (Vitamin D3) multivitamin 1 tab PO DAILY SUPPLEMENT 05/08/21 Unknown History pioglitazone 30 mg tablet 15 mg PO DAILY . 05/08/21 Unknown History atorvastatin 20 mg tablet 20 mg PO QHS CHOLESTEROL #30 tabs 05/15/21 Unknown Rx tirzepatide 10 mg/0.5 mL 10 mg subcut ABREU DM 01/05/25 06/18/25 History subcutaneous pen injector (Mounjaro) Held on 06/25/25. Instructions: Resume on 06/30/25. Hold until after your gallbladder removal surgery. finerenone 20 mg tablet (Kerendia) 20 mg PO DAILY . 06/03/25 Unknown History Held on 06/25/25. Instructions: Resume on 06/30/25. Hold until after your gallbladder removal surgery. hydralazine 50 mg tablet 50 mg PO QHS BP 06/03/25 Unknown History Held on 06/25/25. Instructions: Resume on 06/30/25. Hold until after your gallbladder removal surgery. levothyroxine 50 mcg tablet 50 mcg PO DAILY THY 06/03/25 Unknown History warfarin 5 mg tablet (Jantoven) 5 mg PO DINNER blood thinner 5 06/07/25 06/23/25 Rx Held on 06/25/25. days #5 tabs Instructions: Resume on 06/30/25. Hold until after your gallbladder removal surgery. amoxicillin 875 mg-potassium 1 tab PO BID 5 days #10 tabs 06/25/25 Unknown Rx clavulanate 125 mg tablet Allergy/AdvReac Type Severity Reaction Status Date / Time No Known Allergies Allergy Verified 06/23/25 19:21 Family History Father Heart disease Mother CVA (cerebral vascular accident) Surgical History Hx of right cataract extraction Hx of left cataract extraction History of nasal septoplasty H/O percutaneous insertion of cholecystostomy tube History of surgical procedure on mouth Hx of tonsillectomy History of back surgery Social History housing: house Smoking Status: Never smoker substance use type: does not use Audit: Pertinent Findings Pertinent Findings EKG Perinent findings: Normal sinus rhythm Normal ECG When compared with ECG of 04-Jun-2025 04:49, No significant change was found Confirmed by Bruce Navarro ([id number]), manager editorial ZI JORGENSEN ([id number]) on 06/26/2025 10:35:24 AM Recommendation Anesthesia Recommendation Anesthesia recommendation: OPTIMIZED for anesthesia
[2025-06-29] VITALS (17 sets, daily range): BP systolic 118–142; BP diastolic 60–77; PULSE 72–85; RESP 14–20; TEMP 36.3–37.2; O2SAT 89–100; BMI 36.9
[2025-06-29] MEDS: Lactated Ringers 1,000 ML 15 ML IV (11:05)
[2025-06-29] MEDS: INDOCYANINE GREEN 3.75 MG in Syringe 1.5 ML 999 MG IV (11:12)
--- NOTE | 2025-06-29 11:14 | PCM.HP.BLA ---
History and Physical Date of Admission: 06/29/25 Date of Service: 06/16/25 MR#: [id number] Acct: [id number] Name: BRENDON DAVID Rep #: [id number] : 1950 Provider: Dr. Anny Jacob MD Age/Sex: 74/M Location: [facility] Status: Signed Intake Vital Signs 06/05/2508:00 06/16/2513:57 Height 6 ft 1 in 6 ft 1 in Weight: 287 lb 6 oz BMI 37.9 BP 135/78 H Blood Pressure Location Rt brachial Position Sitting Respiration 18 Pulse 67 Pulse Source Monitor Temp 97.2 F L Temp Source Temporal Pulse Oximetry (%) 97 Oxygen Delivery Method room air Intake Visit Reasons: HOSPITAL F/U- GALLBLADDER Chief Complaint: hospital f/u- gallbladder Accompanied by: Is patient in pain?: No Allergies No Known Allergies Allergy (Verified 06/16/25 14:04) Medications ?Medication ?Instructions ?Recorded ?Confirmed ?Type acarbose 100 mg tablet (Precose) 100 mg PO BID . 11/12/16 06/16/25 History atenolol 50 mg tablet 50 mg PO BID BLOOD PRESSURE 11/12/16 06/16/25 History losartan 100 mg tablet 100 mg PO QHS BP 11/12/16 06/16/25 History cinnamon bark 500 mg capsule 500 mg PO BID . 05/20/19 06/16/25 History Held on 06/07/25. Instructions: Hold for 1 week furosemide 20 mg tablet 20 mg PO DAILY WATER PILL 05/20/19 06/16/25 History glimepiride 4 mg tablet 4 mg PO BID dm 05/20/19 06/16/25 History warfarin 5 mg tablet 4 mg PO DAILY HX DVT 05/20/19 06/16/25 History Held on 06/07/25. Instructions: Hold for 5 days until complete warfarin 5 mg daily and then back to 4 mg daily. ascorbic acid (vitamin C) 1,000 mg 1 g PO DAILY . 05/08/21 06/16/25 History tablet (Vitamin C) cholecalciferol (vitamin D3) 25 50 mcg PO DAILY REPLACEMENT 05/08/21 06/16/25 History mcg (1,000 unit) capsule (Vitamin D3) multivitamin 1 tab PO DAILY SUPPLEMENT 05/08/21 06/16/25 History pioglitazone 30 mg tablet 15 mg PO DAILY . 05/08/21 06/16/25 History atorvastatin 20 mg tablet 20 mg PO QHS CHOLESTEROL #30 tabs 05/15/21 06/16/25 Rx tirzepatide 10 mg/0.5 mL 10 mg subcut QWEEK DM 01/05/25 06/16/25 History subcutaneous pen injector (Mounesharo) alpha lipoic acid 600 mg capsule 600 mg PO BID . 06/03/25 06/16/25 History finerenone 20 mg tablet (Kerendia) 20 mg PO DAILY . 06/03/25 06/16/25 History hydralazine 50 mg tablet 50 mg PO QHS BP 06/03/25 06/16/25 History levothyroxine 50 mcg tablet 50 mcg PO DAILY THY 06/03/25 06/16/25 History amoxicillin 875 mg-potassium 1 tab PO BID 6 days #12 tabs 06/07/25 06/16/25 Rx clavulanate 125 mg tablet warfarin 5 mg tablet (Jantoven) 5 mg PO DINNER 5 days #5 tabs 06/07/25 06/16/25 Rx Have you fallen in the past year?: No PFSH Medical History (Updated 06/16/25 @ 14:[address] Anny Jacob MD) Chronic anticoagulation Wears glasses Non-smoker CPAP (continuous positive airway pressure) dependence Sleep apnea Hypertension DVT (deep venous thrombosis) Non-ST elevation AR (NSTEMI) COVID-19 DVT (deep venous thrombosis) Diabetes HLD (hyperlipidemia) Type II diabetes mellitus Benign essential hypertension Surgical History (Updated 06/16/25 @ 14:[address] Anny Jacob MD) H/O percutaneous insertion of cholecystostomy tube History of surgical procedure on mouth Hx of tonsillectomy History of back surgery Family History Father Heart disease Mother CVA (cerebral vascular accident) Social History Smoking Status: Never smoker substance use type: does not use HPI HPI HPI: 74-year-old male presents to discuss cholecystectomy as patient had acute cholecystitis with cholecystostomy tube placement on 06/05/2025. Patient denies any abdominal pain tolerating diet, minimal drainage from the cholecystostomy tube?black in color. Patient is on Coumadin due to previous DVT. Currently is holding it since Thursday. Patient has also not gone back on his Mounjaro. 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 Patient also stop his Coumadin 5 days prior. Reviewed the anatomy with the patient and discussed the procedure: Robotic/laparoscopic cholecystectomy with possible cholangiograms, possible open. Review risks including but not limited to bleeding, infection, hernia, bile leak, retained gallstones requiring another procedure ERCP- Endoscopic Retrograde Cholangiopancreatography, injury to another organ (bile ducts, common bile duct, small bowel, etc.) and conversion to an open procedure. All questions were answered. Anny Jacob M.D. Pager: [phone] [facility] [address] [place] [address], [facility], [address] [place] [address] Office: [phone] Coding Level of Care Code Off vis,est,level 3 Diagnoses H/O percutaneous insertion of cholecystostomy tube Z98.890 Acute cholecystitis K81.0 Clinical Quality Measures Falls Risk Screening/Assistive Devices Have you fallen in the past year?: No 06/16/25 [id number] <Electronically signed by Anny Robotham MD> Date [facility]
--- NOTE | 2025-06-29 11:56 | PCM.PRE.AN2 ---
ASA Classification* ASA Classification ASA Classification: 3 Assessment & Plan Anesthesia* Anesthesia Assessment Anesthesia Assessment: Discussed sedation and/or anesthesia options, risks, benefits, and alternatives with patient/parents/legal guardian/POA. Questions invited. The patient/parents/legal guardian/POA seems to understand and agrees to proceed with anesthesia plan. Reviewed the physical assessment, medical history, allergy history and patient home medications list prior to surgery/procedure/anesthetic and documented any changes. Performed airway and anesthesia risk assessments. Anesthesia Type Anesthesia Type: General (Consider GlideScope intubation.) History Source History Obtained from:: Patient and Chart Anesthesia Focused Assessment* Temperature: 98.9 F Pulse Rate: 83 Blood Pressure: 138/75 Respiratory Rate: 16 Pulse Ox: 100 Oxygen Delivery Method: Room Air Airway Assessment Mouth opens: >3 cm Mallampati Score: III Teeth Condition: Missing (Patient is missing multiple teeth after his reconstructive surgery. The rest of the teeth are tight.) Neck Range of motion (ROM): Limited ROM (Severe Restriction) Labs Anesthesia Preop lab: CBC WBC, (4.4-11.0) 3.6 K/mm3 L 06/25/25, 05:35 RBC, (4.6-6.2) 3.69 M/mm3 L 06/25/25, 05:35 Hgb, (13.0-16.5) 11.3 g/dL L 06/25/25, 05:35 Hct, (40-54) 34.9 % L 06/25/25, 05:35 Plt Count, (150-450) 227 K/mm3 06/25/25, 05:35 CHEMISTRY Potassium, (3.3-5.1) 3.6 mmol/L 06/25/25, 05:35 Sodium, (133-145) 136 mmol/L 06/25/25, 05:35 Magnesium, (1.5-2.2) 2.0 mg/dL 06/24/25, 06:02 Phosphorus, (2.7-4.5) 3.0 mg/dL 06/24/25, 06:02 BUN, (4-19) 19 mg/dL 06/25/25, 05:35 Creatinine, (0.70-1.20) 1.64 mg/dL H 06/25/25, 05:35 Glucose, (70-99) 88 mg/dL 06/25/25, 05:35 POC Glucose, (74-106) 160 mg/dL H 06/25/25, 11:34 TSH, (0.300-4.200) 3.310 uIU/mL 06/24/25, 06:02 COAG PT, (11.7-14.9) 18.2 SECONDS H 06/23/25, 20:03 Pre-Assessment Diagnosis/Proposed Procedure Planned Operative Procedure(s): ROBOTIC CHOLEY Anesthesia History 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 DID WELL WITH FESS 05/27/2022 Cholinesterase deficiency No 06/22/25 08:34 You/Your Family Experience No 06/22/25 08:34 fever (hyperthermia) with Relationship Recent Exposure to Contagious No 06/29/25 11:09 Disease Does patient have nerve No 06/22/25 08:34 stimulator Patient instructed to have device shut off --Does patient have Pacemaker No 06/29/25 11:09 or ICD? When Was Last Pacemaker Check QUESTION #4 FULL TEXT: You/Your Family Experience fever (hyperthermia) with Anesthesia Last Oral Intake Last Oral intake: Last Oral Intake NPO since 18:00 06/29/25 11:09 Meds taken in AM with sips of Yes 06/29/25 11:09 water? Meds patient instructed to SEE MED REC 06/29/25 11:09 take am of surgery Any additional information?: Yes Meds taken in AM with sips of water?: Yes PONV PONV - dental laboratory technician: PONV - dental laboratory technician Female No 06/22/25 08:34 HX of Motion Sickness No 06/22/25 08:34 HX of N/V After Surgery No 06/22/25 08:34 Non-Smoker Yes 06/22/25 08:34 Duration of Surgery greater Yes 06/22/25 08:34 than 60 minutes Number of Risk Factors 2 06/22/25 08:34 PONV Score Moderate Risk 06/22/25 08:34 Height & Weight Height & Weight: Anesthesia: Height & Weight Height 6 ft 1 in 06/29/25 11:09 Weight: 127 kg 06/29/25 11:09 Body Mass Index (BMI) 36.9 06/29/25 11:09 Respiratory Assessment Respiratory Assessment - dental laboratory technician: Respiratory Tract Infection Hx - dental laboratory technician Hx Respiratory Tract Infection No 06/22/25 08:34 STOP Sleep Apnea STOP Sleep Apnea - dental laboratory technician: STOP Sleep Apnea - dental laboratory technician Hx Hypertension Yes: CONTROLLED WITH MEDS 06/22/25 08:34 Hx Sleep Apnea Yes 06/22/25 08:34 CPAP Yes: NONCOMPLIANT 06/22/25 08:34 BIPAP No 06/22/25 08:34 Do you snore loudly (louder than talking or can be heard Do you often feel tired/ fatigued/ sleepy during daytime? Has anyone observed you stop breathing during sleep? STOP Results Positive 06/22/25 08:34 QUESTION #5 FULL TEXT : Do you snore loudly (louder than talking or can be heard through closed doors)? 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 Specify any problems Hx of Preganancy in last 3 N/A 06/22/25 08:34 Months Nurse Filling Out Transfusion DSCHRIBER 06/22/25 08:34 & Questions: Date: 06/22/25 06/22/25 08:34 Time: 08:36 06/22/25 08:34 Patient unable to answer at this time (ie. confused, unrespo /Reproduction History /Reproductive History - dental laboratory technician: /Reproductive Hx- dental laboratory technician Hx Now No 06/22/25 08:34 Gestational Age (in weeks): EDC: Hx Hx Para Hx Section SAB No 06/22/25 08:34 Does the father of the baby or his family experience fever w Father of the baby Malignant Hypertension history comment Active Medications Active Medications: Current Medications Generic Name Dose Route Start Last Admin Trade Name Kamila PRN Reason Stop Dose Admin Lactated Ringer's 1,000 mls @ 15 mls/hr 06/29/25 11:00 06/29/25 11:05 IV 15 mls/hr .Q48H LETICIA Administration PFSH Medical History Hypothyroidism Sleep apnea Thyroid disease Ambulates with cane Back pain Dietary restriction History of pain when walking History of edema Chronic anticoagulation Wears glasses Non-smoker CPAP (continuous positive airway pressure) dependence Hypertension COVID-19 DVT (deep venous thrombosis) Diabetes HLD (hyperlipidemia) Home Medications ?Medication ?Instructions ?Recorded ?Last Taken ?Type acarbose 100 mg tablet (Precose) 100 mg PO BID . 11/12/16 06/18/25 History atenolol 50 mg tablet 50 mg PO BID BLOOD PRESSURE 11/12/16 06/18/25 History losartan 100 mg tablet 100 mg PO QHS BP 11/12/16 06/18/25 History Held on 06/25/25. Instructions: Resume on 06/30/25. Hold until after your gallbladder removal surgery. cinnamon bark 500 mg capsule 500 mg PO BID . 05/20/19 06/28/25 History furosemide 20 mg tablet 20 mg PO QHS WATER PILL 05/20/19 06/18/25 History Held on 06/25/25. Instructions: Resume on 06/30/25. Hold until after your gallbladder removal surgery. glimepiride 4 mg tablet 2 mg PO BID dm 05/20/19 06/28/25 08:00 History ascorbic acid (vitamin C) 1,000 mg 1 g PO DAILY . 05/08/21 06/28/25 History tablet (Vitamin C) cholecalciferol (vitamin D3) 25 50 mcg PO DAILY REPLACEMENT 05/08/21 06/28/25 History mcg (1,000 unit) capsule (Vitamin D3) multivitamin 1 tab PO DAILY SUPPLEMENT 05/08/21 06/28/25 History pioglitazone 30 mg tablet 15 mg PO DAILY . 05/08/21 06/18/25 History tirzepatide 10 mg/0.5 mL 10 mg subcut ABREU DM 01/05/25 06/15/25 History subcutaneous pen injector (Mounjaro) Held on 06/25/25. Instructions: Resume on 06/30/25. Hold until after your gallbladder removal surgery. finerenone 20 mg tablet (Kerendia) 20 mg PO DAILY . 06/03/25 06/18/25 History Held on 06/25/25. Instructions: Resume on 06/30/25. Hold until after your gallbladder removal surgery. hydralazine 50 mg tablet 50 mg PO QHS BP 06/03/25 06/18/25 History Held on 06/25/25. Instructions: Resume on 06/30/25. Hold until after your gallbladder removal surgery. levothyroxine 50 mcg tablet 50 mcg PO DAILY THY 06/03/25 06/28/25 03:00 History warfarin 5 mg tablet (Jantoven) 5 mg PO DINNER blood thinner 5 06/07/25 06/23/25 Rx Held on 06/25/25. days #5 tabs Instructions: Resume on 06/30/25. Hold until after your gallbladder removal surgery. amoxicillin 875 mg-potassium 1 tab PO BID 5 days #10 tabs 06/25/25 06/29/25 06:30 Rx clavulanate 125 mg tablet Allergy/AdvReac Type Severity Reaction Status Date / Time No Known Allergies Allergy Verified 06/29/25 11:04 Family History Father Heart disease Mother CVA (cerebral vascular accident) Surgical History Hx of right cataract extraction Hx of left cataract extraction History of nasal septoplasty H/O percutaneous insertion of cholecystostomy tube History of surgical procedure on mouth Hx of tonsillectomy History of back surgery Social History housing: house Smoking Status: Never smoker substance use type: does not use Review of Systems (Anesthesia) ROS Narrative System reviewed and no additional complaints, except as documented.
--- NOTE | 2025-06-29 12:15 | GALL_PTH ---
PATIENT: BRENDON DAVID LOC: [facility] U#:[id number] AGE/SX: 74/M ROOM: [facility] RE06/29/[address]: Dr. Anny Jacob MD : 1950 BED: 1 DIS: 07/06/2025 SPEC #: [id number] RECD: 06/30/25 07:09 STATUS: SARAH RERicky #: [id number] EMELI: 06/29/25 12:[address]: Anny Jacob DEPT: SURGICAL PATHOLOGY RECD BY: Abhi Wadsworth ENTERED: 06/30/25 09:22 SP TYPE: GERALDO SCHNEIDER DR: MD Dr. Jordan Flaherty MD Dr. Rahsaan Friend, FELIPE GarzaC KAY Garcia PA Tissues: A - Gallbladder, NOS Procedures: Surgery Specimen Level III HEADER OPERATION: Robotic cholecystectomy PRE-OP DIAGNOSIS: History of percutaneous insertion of cholecystotomy, acute cholecystitis TISSUE SUBMITTED: A- Gallbladder MICROSCOPIC DIAGNOSIS A. Gallbladder, robotic cholecystectomy: * Acute gangrenous cholecystitis MICROSCOPIC DESCRIPTION Slides are reviewed. GROSS DESCRIPTION A. Received in formalin labeled with the patient's name and date of . Designated as gallbladder is a previously opened dark green to dark brown gallbladder, 8.5 x 6.5 x 1.1 cm. A definitive cystic duct margin is not grossly identified. The mucosa is dark green to black and somewhat nodular. Sectioning reveals dark green, focally edematous and focally necrotic cut surfaces with a 0.4 cm dark red apparent lymph node and a maximum wall thickness of 0.9 cm. Cholesterolosis is present. The contents of the specimen container filtered revealing dark green-black, sludgelike material. Assembler Carbon Brushes sections are submitted in 3 cassettes as follows: A1: Possible lymph nodeA2: Focally necrotic cut surfacesA3: Cross-sections including focal edema SD 06/30/2025 CPT:32497
[2025-06-29] MEDS: Lidocaine 1% (5 ml sdv) 5 ML Vial IV (13:44)
[2025-06-29] MEDS: Lactated Ringers 2,000 ML 2000 ML IV (14:25)
[2025-06-29] MEDS: fentaNYL 100 MCG/2 ML Ampul 200 MCG IV (14:47)
[2025-06-29] MEDS: Bupiv/Epi 0.25% 30 ML Vial (15:36)
--- NOTE | 2025-06-29 15:38 | OP.PCM_ITS ---
Operative Report (Standard) Operative Information Date of Procedure: 06/29/25 Pre-Operative Diagnosis: acute cholecystitis s/p cholecystostomy tube Post-Operative Diagnosis: acute gangrenous cholecystitis Surgery/Procedure Performed: robotic subtotal cholecystectomy, with CHANDA drain placement authorizer: Yes Drain Tile Press Operator: Ping Ramos Tasks completed by first helper: Opening Additional producer assistant?: Yes Additional Cook Fruit #2: Kaia Markham Tasks completed by producer assistant #2: Closing Type of Anesthesia: General/Supplemental RN Documented Start/Stop Times: Operation Date: 06/29/25 12:15 Case Time Into Pre-Op 06/29/25 10:47 Anesthesia Start 06/29/25 13:37 Into Room 06/29/25 13:37 Procedure Start 06/29/25 13:58 Procedure End 06/29/25 15:46 Anesthesia End 06/29/25 15:53 Out of Room 06/29/25 15:53 Into Recovery 06/29/25 15:56 Into Phase II Recovery 06/29/25 17:28 Out of Recovery 06/29/25 17:28 Procedure Start Time: 13:58 Procedure Stop Time: 15:46 Select all DRAINS/GRAFTS/IMPLANTS that apply: Drains Drain details: RUQ 15 Fr CHANDA Special Medications: cefotetan 2 grams IV x 1 Estimated Blood Loss: 20 cc Specimen collected: Yes Description of specimen(s) removed: gallbladder wall Surgical Findings: see operative report
--- NOTE | 2025-06-29 15:38 | PCM.OPRPT ---
Operative Report (Standard) Operative Information Date of Procedure: 06/29/25 Pre-Operative Diagnosis: acute cholecystitis s/p cholecystostomy tube Post-Operative Diagnosis: acute gangrenous cholecystitis Surgery/Procedure Performed: robotic subtotal cholecystectomy, with CHANDA drain placement wire hanger: Yes Computer Operations Specialist: Ping Ramos Tasks completed by occupational therapist's assistant: Opening Additional miller head assistant wet process?: Yes Additional Photo Print Specialist #2: Kaia Markham Tasks completed by miller head assistant wet process #2: Closing Type of Anesthesia: General/Supplemental RN Documented Start/Stop Times: Operation Date: 06/29/25 12:15 Case Time Into Pre-Op 06/29/25 10:47 Anesthesia Start 06/29/25 13:37 Into Room 06/29/25 13:37 Procedure Start 06/29/25 13:58 Procedure End 06/29/25 15:46 Anesthesia End 06/29/25 15:53 Out of Room 06/29/25 15:53 Into Recovery 06/29/25 15:56 Into Phase II Recovery 06/29/25 17:28 Out of Recovery 06/29/25 17:28 Procedure Start Time: 13:58 Procedure Stop Time: 15:46 Select all DRAINS/GRAFTS/IMPLANTS that apply: Drains Drain details: RUQ 15 Fr CHANDA Special Medications: cefotetan 2 grams IV x 1 Estimated Blood Loss: 20 cc Specimen collected: Yes Description of specimen(s) removed: gallbladder wall Description of surgery: Indications: this is a 74 year-old male who developed abdominal pain/nausea/vomiting and on workup was found acute cholecystitis s/p cholecystostomy tube. Laparoscopic/robotic cholecystectomy was elected. Description procedure: The patient was placed on operating table in supine position. A timeout was completed verifying correct patient, procedure, site, position and special equipment prior to beginning procedure. General Anesthesia was induced. The abdomen was prepped and draped in usual sterile fashion. Supraumbilical incision was made with 15 blade scapula and fascia was elevated and incised. Entry into the abdomen was confirmed visually. Laparoscope was placed. Verifying no injury during initial trocar placement. Additional 8 mm trocars were placed in the left upper quadrant, right lower and left lower quadrants. The table is placed in reverse Trendelenburg position with the right side up. Robot was docked. The adhesions between the gallbladder and omentum with gentle traction-entire gallbladder wall was noted to be gangrenous. While manipulating the gallbladder to visualize neck there was leaking of sludge/fluid from area at gallbladder neck. This fluid/sludge was suctioned. The neck of the gallbladder was also densely adherent due to acute/chronic inflammation. Electrocautery hook was used to divide the wall of the gallbladder; the entire gallbladder wall and muscosa were found to be gangrenous. No additional bile was seen coming into the gallbladder. Gallbladder fossa was copiously irrigated to suction all bile/sludge. Hemostasis was checked and a 15 American round CHANDA was placed in the right upper quadrant exiting through RUQ site-made with 15 blade and hemostat. This was secured with 3-0 nylon suture. The robot was undocked. Secondary trochars removed. No bleeding was noted the trocar sites. The laparoscope was withdrawn and umbilical trocar removed. The abdomen was allowed to collapse. Robot was undocked. The gallbladder wall was removed using the endoscopic retrieval bag through the umbilical port. The gallbladder wall is passed off table as specimen. The fascia of the 12 mm trocar was closed with a [id number] 0 Vicryl suture. The skin was closed with sutures of 4-0 Monocryl and Steri-Strips. The patient was extubated. The patient tolerated procedure well and was taken to the postanesthesia care unit in stable condition. Surgical Findings: see operative report Complications Complications: No
--- NOTE | 2025-06-29 15:58 | PCM.POST.ANE ---
Anesthesia: Postop Eval I Current Vital Signs Temperature: 98.2 F Pulse Rate: 85 Blood Pressure: 131/65 Respiratory Rate: 20 Pulse Ox: 93 Oxygen Delivery Method: Room Air Assessment Airway patent: Yes Spontaneous unlabored respirations: Yes Mental status: Awake and Calm nausea: No Vomiting: No Anesthesia Complication: No Fluid Hydration Crystalloid volume administer (ml): 1,600 Total IV fluid infused: 1,600 Progress Note Anesthesia document: Postop Eval 1 completed: Yes
[2025-06-29] MEDS: CLARIFY ORDER 1 EACH NOTE (18:52)
[2025-06-29] MEDS: 0.9% Saline Lock 10 ML Syringe IV (18:57)
[2025-06-29] MEDS: 0.9% Normal Saline (1000mL) 1,000 ML 100 ML IV (18:57)
--- NOTE | 2025-06-29 20:24 | POSTOPAN2_ITS ---
Anesthesia Postop Eval I Sum Postop Eval Completion status Anesthesia document: Postop Eval 1 completed: Yes Anesthesia Postop Eval I Summary Anesthesia Postop Eval I Summary: Anesthesia Postop Eval I: Assessment Summary Airway patent Yes 06/29/25 15:59 [email or web address] Spontaneous unlabored Yes 06/29/25 15:59 TARGET [email or web address] respirations Mental status Awake,Calm 06/29/25 15:59 [email or web address] nausea No 06/29/25 15:59 TARGET [email or web address] Vomiting No 06/29/25 15:59 TARGET [email or web address] Anesthesia Postop Eval I: Fluid Summary Crystalloid volume administer 1,600 06/29/25 15:59 [email or web address] (ml) Colloids volume administered ( ml) Blood Product volume administered (ml) Total IV fluid infused 1,600 06/29/25 15:59 [email or web address] Anesthesia Postop Eval I: Summary Notes Anesthesia Complication No 06/29/25 15:59 [email or web address] Anesthesia Complication Comment: Post-operative progress note Anesthesia: Postop Eval II Evaluation Mental status: Awake and Calm Pain Level: 2 nausea: No Vomiting: No Complications Anesthesia Complication: No
--- NOTE | 2025-06-29 20:24 | PCM.POSTANE2 ---
Anesthesia Postop Eval I Sum Postop Eval Completion status Anesthesia document: Postop Eval 1 completed: Yes Anesthesia Postop Eval I Summary Anesthesia Postop Eval I Summary: Anesthesia Postop Eval I: Assessment Summary Airway patent Yes 06/29/25 15:59 PROCESS INSPECTOR.[email or web address] Spontaneous unlabored Yes 06/29/25 15:59 PROCESS INSPECTOR.[email or web address] respirations Mental status Awake,Calm 06/29/25 15:59 PROCESS INSPECTOR.[email or web address] nausea No 06/29/25 15:59 PROCESS INSPECTOR.[email or web address] Vomiting No 06/29/25 15:59 PROCESS [email or web address] Anesthesia Postop Eval I: Fluid Summary Crystalloid volume administer 1,600 06/29/25 15:59 PROCESS INSPECTOR.PKEL (ml) Colloids volume administered ( ml) Blood Product volume administered (ml) Total IV fluid infused 1,600 06/29/25 15:59 PROCESS [email or web address] Anesthesia Postop Eval I: Summary Notes Anesthesia Complication No 06/29/25 15:59 PROCESS [email or web address] Anesthesia Complication Comment: Post-operative progress note Anesthesia: Postop Eval II Evaluation Mental status: Awake and Calm Pain Level: 2 nausea: No Vomiting: No Complications Anesthesia Complication: No
[2025-06-29] MEDS: Piperacil/Tazobactam 3.375 GM in 0.9% Normal Saline (50mL MB+) 50 ML IV (22:20)
[2025-06-30] VITALS (15 sets, daily range): BP systolic 112–155; BP diastolic 61–76; PULSE 68–83; RESP 15–20; TEMP 36.1–36.8; O2SAT 92–98; BMI 36.9
[2025-06-30] MEDS: 0.9% Normal Saline (1000mL) 1,000 ML 100 ML IV ×2 (05:33→18:58)
[2025-06-30] MEDS: Piperacil/Tazobactam 3.375 GM in 0.9% Normal Saline (50mL MB+) 50 ML IV ×3 (05:36→23:18)
[2025-06-30 06:54] LABS: Hematocrit 38.2 % (40-54); Hemoglobin 12.4 g/dL (13.0-16.5); Immature Granulocytes Count 0.160 X10^3/uL (0.0-0.0); Mean Corp Hgb Conc 32.5 g/dL (32-36); Mean Corpuscular Volume 94.6 fL (80-94); Mean Platelet Vol. 9.7 fl (6.2-12.0); NRBC Flagged by Analyzer 0 % (0-5); Platelet Count 329 K/mm3 (150-450); RBC Distribution Width CV 14.3 % (11.6-14.6); RBC Distribution Width SD 49.4 fl (35.1-43.9); Red Blood Count 4.04 M/mm3 (4.6-6.2); White Blood Count 13.0 K/mm3 (4.4-11.0)
[2025-06-30 07:16] LABS: AST(SGOT) 39 U/L (<=37); Alanine Aminotransfer ALT/SGPT 36 U/L (<=46); Albumin, Serum 3.1 g/dL (3.4-4.8); Alkaline Phosphatase 89 U/L (40-129); Anion Gap 12 (5-15); BUN 14 mg/dL (4-19); BUN/Creat Ratio 9.9 RATIO (10-20); Bilirubin, Direct 0.27 mg/dL (0.00-0.30); Calcium,Total 8.5 mg/dL (7.6-11.0); Carbon Dioxide 19.5 mmol/L (21.0-32.0); Chloride 103 mmol/L (98-108); Estimated Creatinine Clearance 64.76 ml/min (50-250); Globulin 2.9 g/dL (2.2-4.2); Glucose 259 mg/dL (70-99); Potassium 4.6 mmol/L (3.3-5.1)
--- NOTE | 2025-06-30 07:48 | PN.SURG_ITS ---
Subjective Subjective CHANDA bilious Objective Data Objective Data Vital Signs: Vital Signs Temp Pulse Resp BP Pulse Ox O2 Del Method O2 Flow Rate 97.8 F 71 16 120/71 97 Nasal Cannula 2 06/30/25 05:41 06/30/25 05:41 06/30/25 05:41 06/30/25 05:41 06/30/25 05:41 06/30/25 06:00 06/30/25 06:00 Oxygen Flow Rate (L/min) 2 Oxygen Delivery Method Nasal Cannula Weight: 279 lb 15.793 oz Body Mass Index (BMI) 36.9 Intake & Output: Intake and Output for Last 24 Hours 06/28/25 06/29/25 06/30/25 23:59 23:59 23:59 Intake Total 2821.5 / 2821.5 1350 / 1350 Output Total 508 / 508 Balance 2313.5 / 2313.5 1350 / 1350 Lab / Micro Data 06/30/25 06:18 06/30/25 06:18 Labs: Laboratory Results - last 24 hr 06/29/25 18:03: POC Glucose 185 H 06/29/25 22:27: POC Glucose 242 H 06/30/25 06:05: POC Glucose 251 H 06/30/25 06:18: WBC 13.0 H, RBC 4.04 L, Hgb 12.4 L, Hct 38.2 L, MCV 94.6 H, MCH 30.7, MCHC 32.5, RDW Std Deviation 49.4 H, RDW Coeff of Geovanna 14.3, Plt Count 329, MPV 9.7, Immature Gran % (Auto) 1.200 H, Neut % (Auto) 90.9 H, Lymph % (Auto) 5.1 L, [place] % (Auto) 2.6, Eos % (Auto) 0.1, Baso % (Auto) 0.1, Absolute Neuts (auto) 11.9 H, Absolute Lymphs (auto) 0.66 L, Nucleated RBC % 0, Sodium 134, Potassium 4.6, Chloride 103, Carbon Dioxide 19.5 L, Anion Gap 12, BUN 14, C reatinine 1.44 H, Estim Creat Clear Calc 64.76, Est GFR (MDRD) Non-Af 52 L, B UN/Creatinine Ratio 9.9 L, Glucose 259 H, Calcium 8.5, Total Bilirubin 0.50, Direct Bilirubin 0.27, AST 39 H, ALT 36, Alkaline Phosphatase 89, Total Protein 6.0, Albumin 3.1 L, Globulin 2.9 Physical Exam Resp normal respiratory effort Cardio regular rate GI GI Narrative: Abdomen: Soft, nondistended, tender near incision's dressed clean dry and intact, no peritoneal signs, CHANDA bilious Assessment & Plan Assessment/Plan (1) S/P laparoscopic cholecystectomy: (2) Bile leak: PLAN: Plan Patient does have a bile leak per CHANDA. GI consulted for ERCP. Continue CHANDA Continue IV Zosyn?white blood count 13 Continue pain control Anny Jacob M.D. Pager: [phone] [facility] [address] [place] [address], [facility], [address] [place] [id number] Office: [phone]
--- NOTE | 2025-06-30 13:52 | EX.PCM.CON.G ---
HPI Consult Data Date of Consult: 06/30/25 HPI Narrative Reason for Consultation: Bile leak HPI Narrative: BRENDON DAVID, is a 74 M who presents [for cholecystectomy. Patient presented with abdominal pain and was discovered to have mildly elevated LFTs. Imaging was consistent with acute cholecystitis. He underwent a laparoscopic cholecystectomy. I was called today to evaluate the patient due to the fact that he was having a lot of output from his CHANDA drain. LFTs are mildly elevated consistent with a persistent bile leak.] [facility] Medical History Hypothyroidism Sleep apnea Thyroid disease Ambulates with cane Back pain Dietary restriction History of pain when walking History of edema Chronic anticoagulation Wears glasses Non-smoker CPAP (continuous positive airway pressure) dependence Hypertension COVID-19 DVT (deep venous thrombosis) Diabetes HLD (hyperlipidemia) Home Medications ?Medication ?Instructions ?Recorded ?Last Taken ?Type acarbose 100 mg tablet (Precose) 100 mg PO BID . 11/12/16 06/18/25 History atenolol 50 mg tablet 50 mg PO BID BLOOD PRESSURE 11/12/16 06/18/25 History losartan 100 mg tablet 100 mg PO QHS BP 11/12/16 06/18/25 History Held on 06/25/25. Instructions: Resume on 06/30/25. Hold until after your gallbladder removal surgery. cinnamon bark 500 mg capsule 500 mg PO BID . 05/20/19 06/28/25 History furosemide 20 mg tablet 20 mg PO QHS WATER PILL 05/20/19 06/18/25 History Held on 06/25/25. Instructions: Resume on 06/30/25. Hold until after your gallbladder removal surgery. glimepiride 4 mg tablet 2 mg PO BID dm 05/20/19 06/28/25 08:00 History ascorbic acid (vitamin C) 1,000 mg 1 g PO DAILY . 05/08/21 06/28/25 History tablet (Vitamin C) cholecalciferol (vitamin D3) 25 50 mcg PO DAILY REPLACEMENT 05/08/21 06/28/25 History mcg (1,000 unit) capsule (Vitamin D3) multivitamin 1 tab PO DAILY SUPPLEMENT 05/08/21 06/28/25 History pioglitazone 30 mg tablet 15 mg PO DAILY . 05/08/21 06/18/25 History tirzepatide 10 mg/0.5 mL 10 mg subcut ABREU DM 01/05/25 06/15/25 History subcutaneous pen injector (Mounjaro) Held on 06/25/25. Instructions: Resume on 06/30/25. Hold until after your gallbladder removal surgery. finerenone 20 mg tablet (Kerendia) 20 mg PO DAILY . 06/03/25 06/18/25 History Held on 06/25/25. Instructions: Resume on 06/30/25. Hold until after your gallbladder removal surgery. hydralazine 50 mg tablet 50 mg PO QHS BP 06/03/25 06/18/25 History Held on 06/25/25. Instructions: Resume on 06/30/25. Hold until after your gallbladder removal surgery. levothyroxine 50 mcg tablet 50 mcg PO DAILY THY 06/03/25 06/28/25 03:00 History warfarin 5 mg tablet (Jantoven) 5 mg PO DINNER blood thinner 5 06/07/25 06/23/25 Rx Held on 06/25/25. days #5 tabs Instructions: Resume on 06/30/25. Hold until after your gallbladder removal surgery. amoxicillin 875 mg-potassium 1 tab PO BID 5 days #10 tabs 06/25/25 06/29/25 06:30 Rx clavulanate 125 mg tablet Allergy/AdvReac Type Severity Reaction Status Date / Time No Known Allergies Allergy Verified 06/29/25 11:04 Family History Father Heart disease Mother CVA (cerebral vascular accident) Surgical History Hx of right cataract extraction Hx of left cataract extraction History of nasal septoplasty H/O percutaneous insertion of cholecystostomy tube History of surgical procedure on mouth Hx of tonsillectomy History of back surgery Social History housing: house Smoking Status: Never smoker substance use type: does not use ROS Constitutional Constitutional: Denies fatigue, fever(s), poor appetite, weight gain or weight loss Gastrointestinal Gastrointestinal: Denies belching, bloating, change in bowel habits, change in stool character, chewing difficulty, coffee ground emesis, constipation, cramping, diarrhea, dyspepsia, dysphagia, early satiety, excessive flatus, fecal incontinence, heartburn, hematemesis, hematochezia, hemorrhoids, loose stools, melena, nausea, odynophagia, rectal bleeding, tenesmus, vomiting or weight changes Physical Exam Const alert, oriented x3, no apparent distress and healthy appearing General Appearance: cooperative GI normal to inspection, nondistended, normoactive bowel sounds, soft to palpation, non-tender and non-distended Percussion: normal to percussion Rectal Exam: deferred Lab / Micro Data 06/30/25 06:18 06/30/25 06:18 Labs: Laboratory Results - last 24 hr 06/29/25 18:03: POC Glucose 185 H 06/29/25 22:27: POC Glucose 242 H 06/30/25 06:05: POC Glucose 251 H 06/30/25 06:18: WBC 13.0 H, RBC 4.04 L, Hgb 12.4 L, Hct 38.2 L, MCV 94.6 H, MCH 30.7, MCHC 32.5, RDW Std Deviation 49.4 H, RDW Coeff of Geovanna 14.3, Plt Count 329, MPV 9.7, Immature Gran % (Auto) 1.200 H, Neut % (Auto) 90.9 H, Lymph % (Auto) 5.1 L, Sabine % (Auto) 2.6, Eos % (Auto) 0.1, Baso % (Auto) 0.1, Absolute Neuts (auto) 11.9 H, Absolute Lymphs (auto) 0.66 L, Nucleated RBC % 0, Sodium 134, Potassium 4.6, Chloride 103, Carbon Dioxide 19.5 L, Anion Gap 12, BUN 14, Creatinine 1.44 H, Estim Creat Clear Calc 64.76, Est GFR (MDRD) Non-Af 52 L, BUN/Creatinine Ratio 9.9 L, Glucose 259 H, Calcium 8.5, Total Bilirubin 0.50, Direct Bilirubin 0.27, AST 39 H, ALT 36, Alkaline Phosphatase 89, Total Protein 6.0, Albumin 3.1 L, Globulin 2.9 06/30/25 11:12: POC Glucose 206 H Assessment & Plan Assessment/Plan (1) Bile leak: (2) S/P laparoscopic cholecystectomy: PLAN: 74-year-old gentleman elected undergo therapeutic ERCP. He was explained alternatives, risk and benefits include not withstanding bleeding, infection, subs, perforation, need for emergent surgery and . He will have an ASA of 3. Charges/Coding Visit Charges Inpatient E&M: 29782 Init Hosp L3
--- NOTE | 2025-06-30 15:46 | PCM.PRE.AN2 ---
ASA Classification* ASA Classification ASA Classification: 3 Assessment & Plan Anesthesia* Anesthesia Assessment Anesthesia Assessment: Discussed sedation and/or anesthesia options, risks, benefits, and alternatives with patient/parents/legal guardian/POA. Questions invited. The patient/parents/legal guardian/POA seems to understand and agrees to proceed with anesthesia plan. Reviewed the physical assessment, medical history, allergy history and patient home medications list prior to surgery/procedure/anesthetic and documented any changes. Performed airway and anesthesia risk assessments. Anesthesia Type Anesthesia Type: General History Source History Obtained from:: Patient and Chart Anesthesia Focused Assessment* Temperature: 98.2 F Pulse Rate: 68 Blood Pressure: 113/74 Respiratory Rate: 18 Pulse Ox: 94 Oxygen Delivery Method: Room Air Oxygen Flow Rate (L/min): 2 Airway Assessment Mouth opens: >3 cm Mallampati Score: III Teeth Condition: Missing (Patient is missing most of his teeth on the left side of his upper jaw. Rest of the teeth are tight.) Neck Range of motion (ROM): Limited ROM (Somewhat Decreased) Labs Anesthesia Preop lab: CBC WBC, (4.4-11.0) 13.0 K/mm3 H Today, 06:18 RBC, (4.6-6.2) 4.04 M/mm3 L Today, 06:18 Hgb, (13.0-16.5) 12.4 g/dL L Today, 06:18 Hct, (40-54) 38.2 % L Today, 06:18 Plt Count, (150-450) 329 K/mm3 Today, 06:18 CHEMISTRY Potassium, (3.3-5.1) 4.6 mmol/L Today, 06:18 Sodium, (133-145) 134 mmol/L Today, 06:18 Magnesium, (1.5-2.2) 2.0 mg/dL 06/24/25, 06:02 Phosphorus, (2.7-4.5) 3.0 mg/dL 06/24/25, 06:02 BUN, (4-19) 14 mg/dL Today, 06:18 Creatinine, (0.70-1.20) 1.44 mg/dL H Today, 06:18 Glucose, (70-99) 259 mg/dL H Today, 06:18 POC Glucose, (74-106) 206 mg/dL H Today, 11:12 TSH, (0.300-4.200) 3.310 uIU/mL 06/24/25, 06:02 COAG PT, (11.7-14.9) 18.2 SECONDS H 06/23/25, 20:03 Pre-Assessment Diagnosis/Proposed Procedure Planned Operative Procedure(s): ERCP Anesthesia History Anesthesia History - resistor tester: Anesthesia History - resistor tester Hx Hospitalization Yes: 05/2025 FOR GALLBLADDER 06/22/25 08:34 Any Problems With Anesthesia Yes: hard time waking up. 06/30/25 14:36 narcan twice Cholinesterase deficiency No 06/30/25 14:36 You/Your Family Experience No 06/30/25 14:36 fever (hyperthermia) with Relationship Recent Exposure to Contagious No 06/30/25 14:36 Disease Does patient have nerve No 06/30/25 14:36 stimulator Patient instructed to have device shut off --Does patient have Pacemaker No 06/30/25 14:36 or ICD? When Was Last Pacemaker Check QUESTION #4 FULL TEXT: You/Your Family Experience fever (hyperthermia) with Anesthesia Last Oral Intake Last Oral intake: Last Oral Intake NPO since 18:00 06/30/25 14:36 Meds taken in AM with sips of Yes 06/30/25 14:36 water? Meds patient instructed to SEE MED REC 06/30/25 14:36 take am of surgery PONV PONV - resistor tester: PONV - resistor tester Female No 06/22/25 08:34 HX of Motion Sickness No 06/22/25 08:34 HX of N/V After Surgery No 06/22/25 08:34 Non-Smoker Yes 06/22/25 08:34 Duration of Surgery greater Yes 06/22/25 08:34 than 60 minutes Number of Risk Factors 2 06/22/25 08:34 PONV Score Moderate Risk 06/22/25 08:34 Height & Weight Height & Weight: Anesthesia: Height & Weight Height 6 ft 1 in 06/30/25 14:36 Weight: 127 kg 06/30/25 14:36 Body Mass Index (BMI) 36.9 06/30/25 14:36 Respiratory Assessment Respiratory Assessment - resistor tester: Respiratory Tract Infection Hx - resistor tester Hx Respiratory Tract Infection No 06/30/25 14:36 STOP Sleep Apnea STOP Sleep Apnea - resistor tester: STOP Sleep Apnea - resistor tester Hx Hypertension Yes: CONTROLLED WITH MEDS 06/22/25 08:34 Hx Sleep Apnea Yes 06/29/25 17:59 CPAP Yes: NONCOMPLIANT 06/22/25 08:34 BIPAP No 06/22/25 08:34 Do you snore loudly (louder than talking or can be heard Do you often feel tired/ fatigued/ sleepy during daytime? Has anyone observed you stop breathing during sleep? STOP Results Positive 06/22/25 08:34 QUESTION #5 FULL TEXT : Do you snore loudly (louder than talking or can be heard through closed doors)? 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 Specify any problems Hx of Preganancy in last 3 N/A 06/22/25 08:34 Months Nurse Filling Out Transfusion DSCHRIBER 06/22/25 08:34 & Questions: Date: 06/22/25 06/22/25 08:34 Time: 08:36 06/22/25 08:34 Patient unable to answer at this time (ie. confused, unrespo /Reproduction History /Reproductive History - resistor tester: /Reproductive Hx- resistor tester Hx Now No 06/22/25 08:34 Gestational Age (in weeks): EDC: Hx Hx Para Hx Section SAB No 06/22/25 08:34 Does the father of the baby or his family experience fever w Father of the baby Malignant Hypertension history comment Active Medications Active Medications: Current Medications Generic Name Dose Route Start Last Admin Trade Name Freq PRN Reason Stop Dose Admin Acarbose 100 mg 06/30/25 08:00 06/30/25 08:42 Acarbose 50 Mg Tablet PO Not Given BIDCM [facility] Acetaminophen 650 mg 06/29/25 18:21 06/29/25 23:23 Acetaminophen 325 Mg Tablet PO 650 mg Q6H PRN PRN Administration Pain Score 1-10 Atenolol 50 mg 06/29/25 22:00 06/30/25 11:22 Atenolol 50 Mg Tablet PO Not Given BID [facility] Protocol Furosemide 20 mg 06/30/25 22:00 Furosemide 20 Mg Tablet PO QHS [facility] Protocol Glimepiride 2 mg 06/30/25 08:00 06/30/25 08:42 Glimepiride 2 Mg Tablet PO Not Given BIDCM [facility] Glucagon 1 mg 06/29/25 18:21 Glucagon 1 Mg/Ml Syringe IM X1 PRN Hypoglycemia Protocol Hydralazine HCl 50 mg 06/30/25 22:00 Hydralazine 50 Mg Tablet PO QHS [facility] Protocol Sodium Chloride 1,000 mls @ 100 mls/hr 06/29/25 18:21 06/30/25 14:52 IV 0 mls/hr .Q10H LETICIA Infusion Piperacillin Sod/Tazobactam 50 mls @ 12.5 mls/hr 06/29/25 22:00 06/30/25 14:52 Sod 3.375 gm/ Sodium Chloride IV 0 mls/hr Q8 LETICIA Infusion Dextrose 250 mls @ 0 mls/hr 06/29/25 18:21 Dextrose 10%-Water IV .Q0M PRN HYPOGLYCEMIA Protocol As Directed Sodium Chloride 250 mls @ 15 mls/hr 06/29/25 18:47 IV .[id number] PRN Saline Flush Sodium Chloride 250 mls @ 15 mls/hr 06/29/25 18:47 IV .[id number] PRN Additional IVPB Infusion Lactated Ringer's 1,000 mls @ 15 mls/hr 06/30/25 15:30 IV .Q48H [facility] Insulin Human Lispro 0 unit 06/29/25 18:21 06/30/25 11:22 Insulin Lispro 100 Unit/Ml Insuln.Pen SC Not Given ACHS [facility] Protocol Levothyroxine Sodium 50 mcg 06/30/25 06:00 06/30/25 05:38 Levothyroxine 50 Mcg Tablet PO 50 mcg DAILY@0600 LETICIA Administration Losartan Potassium 100 mg 06/30/25 22:00 Losartan Potassium 100 Mg Tablet PO QHS [facility] Protocol Morphine Sulfate 2 - 4 mg 06/29/25 18:21 Morphine 2 Mg/Ml Syringe IV Q2H PRN PRN Pain Score 4-10 Ondansetron HCl 4 mg 06/29/25 18:21 Ondansetron 4 Mg/2 Ml Vial IV Q8H PRN PRN NAUSEA/VOMITING Oxycodone HCl 5 - 10 mg 06/29/25 18:21 06/30/25 02:22 Oxycodone 5 Mg Tablet PO 5 mg Q4H PRN PRN Administration Pain Score 4-10 Pioglitazone HCl 15 mg 06/30/25 10:00 06/30/25 08:43 Pioglitazone Hydrochloride 15 Mg Tablet PO Not Given DAILY [facility] Sodium Chloride 10 - 40 ml 06/29/25 18:47 06/29/25 18:57 0.9% Saline Lock 10 Ml Syringe IV 10 ml UD PRN Administration SALINE FLUSH PFSH Medical History Hypothyroidism Sleep apnea Thyroid disease Ambulates with cane Back pain Dietary restriction History of pain when walking History of edema Chronic anticoagulation Wears glasses Non-smoker CPAP (continuous positive airway pressure) dependence Hypertension COVID-19 DVT (deep venous thrombosis) Diabetes HLD (hyperlipidemia) Home Medications ?Medication ?Instructions ?Recorded ?Last Taken ?Type acarbose 100 mg tablet (Precose) 100 mg PO BID . 11/12/16 06/18/25 History atenolol 50 mg tablet 50 mg PO BID BLOOD PRESSURE 11/12/16 06/18/25 History losartan 100 mg tablet 100 mg PO QHS BP 11/12/16 06/18/25 History Held on 06/25/25. Instructions: Resume on 06/30/25. Hold until after your gallbladder removal surgery. cinnamon bark 500 mg capsule 500 mg PO BID . 05/20/19 06/28/25 History furosemide 20 mg tablet 20 mg PO QHS WATER PILL 05/20/19 06/18/25 History Held on 06/25/25. Instructions: Resume on 06/30/25. Hold until after your gallbladder removal surgery. glimepiride 4 mg tablet 2 mg PO BID dm 05/20/19 06/28/25 08:00 History ascorbic acid (vitamin C) 1,000 mg 1 g PO DAILY . 05/08/21 06/28/25 History tablet (Vitamin C) cholecalciferol (vitamin D3) 25 50 mcg PO DAILY REPLACEMENT 05/08/21 06/28/25 History mcg (1,000 unit) capsule (Vitamin D3) multivitamin 1 tab PO DAILY SUPPLEMENT 05/08/21 06/28/25 History pioglitazone 30 mg tablet 15 mg PO DAILY . 05/08/21 06/18/25 History tirzepatide 10 mg/0.5 mL 10 mg subcut ABREU DM 01/05/25 06/15/25 History subcutaneous pen injector (Mounjaro) Held on 06/25/25. Instructions: Resume on 06/30/25. Hold until after your gallbladder removal surgery. finerenone 20 mg tablet (Kerendia) 20 mg PO DAILY . 06/03/25 06/18/25 History Held on 06/25/25. Instructions: Resume on 06/30/25. Hold until after your gallbladder removal surgery. hydralazine 50 mg tablet 50 mg PO QHS BP 06/03/25 06/18/25 History Held on 06/25/25. Instructions: Resume on 06/30/25. Hold until after your gallbladder removal surgery. levothyroxine 50 mcg tablet 50 mcg PO DAILY THY 06/03/25 06/28/25 03:00 History warfarin 5 mg tablet (Jantoven) 5 mg PO DINNER blood thinner 5 06/07/25 06/23/25 Rx Held on 06/25/25. days #5 tabs Instructions: Resume on 06/30/25. Hold until after your gallbladder removal surgery. amoxicillin 875 mg-potassium 1 tab PO BID 5 days #10 tabs 06/25/25 06/29/25 06:30 Rx clavulanate 125 mg tablet Allergy/AdvReac Type Severity Reaction Status Date / Time No Known Allergies Allergy Verified 06/29/25 11:04 Family History Father Heart disease Mother CVA (cerebral vascular accident) Surgical History Hx of right cataract extraction Hx of left cataract extraction History of nasal septoplasty H/O percutaneous insertion of cholecystostomy tube History of surgical procedure on mouth Hx of tonsillectomy History of back surgery Social History housing: house Smoking Status: Never smoker substance use type: does not use Review of Systems (Anesthesia) ROS Narrative System reviewed and no additional complaints, except as documented.
[2025-06-30] MEDS: Lidocaine 1% (5 ml sdv) 5 ML Vial 3 ML IV (17:22)
--- NOTE | 2025-06-30 17:30 | RAD_ITS ---
PROCEDURE: ERCP BILIARY/PANCREAS; O.R. FLUORO FOR C-ARM 06/30/2025 REASON FOR EXAM: ERCP TECHNIQUE: Procedure Code: RADERCP; RADORFL_C_ARM Modality: DX Procedure: ERCP BILIARY/PANCREAS; O.R. FLUORO FOR C-ARM COMPARISON: Abdominopelvic CT from 23 June 2025 FINDINGS: Fluoroscopic images submitted from a radiology supported, surgically performed ERCP demonstrate access of the common hepatic duct with cannulization and balloon dilatation and subsequent biliary stent placement with questionable small amount of free spill in the duodenum. Total fluoroscopic time for this examination was 27.6 seconds with a cumulative dose of 13.8 mGy. Please refer to operative note for complete real-time findings and impressions. RAD/ERCP Biliary/Pancreas IMPRESSION: Interval placement of a biliary stent. Please refer to operative note for comp lete real-time findings and impressions. Reading Location: [id number]
--- NOTE | 2025-06-30 17:30 | RAD_ITS ---
PROCEDURE: ERCP BILIARY/PANCREAS; O.R. FLUORO FOR C-ARM 06/30/2025 REASON FOR EXAM: ERCP TECHNIQUE: Procedure Code: RADERCP; RADORFL_C_ARM Modality: DX Procedure: ERCP BILIARY/PANCREAS; O.R. FLUORO FOR C-ARM COMPARISON: Abdominopelvic CT from 23 June 2025 FINDINGS: Fluoroscopic images submitted from a radiology supported, surgically performed ERCP demonstrate access of the common hepatic duct with cannulization and balloon dilatation and subsequent biliary stent placement with questionable small amount of free spill in the duodenum. Total fluoroscopic time for this examination was 27.6 seconds with a cumulative dose of 13.8 mGy. Please refer to operative note for complete real-time findings and impressions. RAD/O.R. Fluoro for C-Arm IMPRESSION: Interval placement of a biliary stent. Please refer to operative note for comp lete real-time findings and impressions. Reading Location: [facility]
[2025-06-30] MEDS: fentaNYL 100 MCG/2 ML Ampul IV (18:07)
--- NOTE | 2025-06-30 18:13 | OP.PROVAT_ITS ---
06/30/2025 Enzo Jasso [address] [place] [address] Re : ERCP procedure for [facility] Dear Dr. Jasso This procedure was performed on Monday, June 30, 2025. My impressions and recommendations are as follows: Impressions : - The entire main bile duct was moderately dilated, with a stone causing an obstruction. - A bile leak was found. - The patient has had a cholecystectomy. - Choledocholithiasis was found. Complete removal was accomplished by biliary sphincterotomy and balloon extraction. - A pancreatic sphincterotomy was performed. - One temporary stent was placed into the ventral pancreatic duct. - A biliary sphincterotomy was performed. - The biliary tree was swept. - One covered metal stent was placed into the common bile duct. Recommendations : My findings are described in the full procedure note, which is enclosed. If I can be of further assistance, please feel free to contact me at . Sincerely, Zander Santana DO 06/30/2025 6:12:58 PM This report has been signed electronically.
--- NOTE | 2025-06-30 18:13 | OP.ERCP_ITS ---
Patient Name: Villa Sewell Procedure Date: 06/30/2025 4:46 PM Date of : 1950 Age: 74 Procedure: ERCP Indications: Bile leak Providers: Zander Santana DO Referring MD: Anny Jacob MD Medicines: Monitored Anesthesia Care Patient Profile: This is a 74 year old male. Refer to note in patient chart for documentation of history and physical. Patient has symptoms of acute right upper quadrant abdominal pain and acute jaundice. He is status post laparoscopic cholecystectomy recently. Complications: No immediate complications. Procedure: Pre-Anesthesia Assessment: - Prior to the procedure, a History and Physical was performed, and patient medications and allergies were reviewed. The patient is competent. The risks and benefits of the procedure and the sedation options and risks were discussed with the patient. All questions were answered and informed consent was obtained. Patient identification and proposed procedure were verified by the physician in the pre-procedure area. Mental Status Examination: alert and oriented. Airway Examination: normal oropharyngeal airway and neck mobility. Respiratory Examination: clear to auscultation. CV Examination: normal. Prophylactic Antibiotics: The patient does not require prophylactic antibiotics. Prior Anticoagulants: The patient has taken no anticoagulant or antiplatelet agents except for NSAID medication. ASA Grade Assessment: II - A patient with mild systemic disease. After reviewing the risks and benefits, the patient was deemed in satisfactory condition to undergo the procedure. The anesthesia plan was to use monitored anesthesia care (MAC). Immediately prior to administration of medications, the patient was re-assessed for adequacy to receive sedatives. The heart rate, respiratory rate, oxygen saturations, blood pressure, adequacy of pulmonary ventilation, and response to care were monitored throughout the procedure. The physical status of the patient was re-assessed after the procedure. After obtaining informed consent, the scope was passed under direct vision. Throughout the procedure, the patient's blood pressure, pulse, and oxygen saturations were monitored continuously. The Duodenoscope was introduced through the mouth, and advanced to the duodenum and used to inject contrast into the bile duct and ventral pancreatic duct. The ERCP was accomplished without difficulty. The patient tolerated the procedure well. The procedure was determined to be ASGE Complexity Level 4. A pancreatic duct stent was placed as a prophylactic measure during today's ERCP procedure. Scope In: 5:33:00 PM Scope Out: 6:04:51 PM Total Procedure Duration Time 0 hours 31 minutes 51 seconds Findings: A rubber liner film of the abdomen was obtained. Air and percutaneous drain(s) were seen. The esophagus was successfully intubated under direct vision. The scope was advanced to a normal major papilla in the descending duodenum without detailed examination of the pharynx, larynx and associated structures, and upper GI tract. The upper GI tract was grossly normal. The ventral pancreatic duct was deeply cannulated with the short-nosed traction sphincterotome. Contrast was injected. I personally interpreted the bile duct and pancreatic duct images. Ductal flow of contrast was adequate. Image quality was adequate. Contrast extended to the biliary pancreatic junction. Contrast extended to the main bile duct. Contrast extended to the cystic duct. Contrast extended to the bifurcation. Contrast extended to the hepatic ducts. Contrast extended to the entire biliary tree. Contrast extended to the pancreatic duct. Opacification of the entire pancreatic ductal system was successful. The maximum diameter of the ducts was 3 mm. The entire opacified area was normal. A long 0.025 inch Jagwire was passed into the ventral pancreatic duct. A 5 mm ventral pancreatic sphincterotomy was made with a traction (standard) sphincterotome using ERBE electrocautery. There was no post-sphincterotomy bleeding. One 5 Fr by 7 cm temporary stent was placed 5 cm into the ventral pancreatic duct. Bile flowed through the stent. The stent was in good position. The bile duct was deeply cannulated with the short-nosed traction sphincterotome. Contrast was injected. Opacification of the entire opacified area, left and right hepatic ducts and all intrahepatic branches and entire biliary tree was successful. The maximum diameter of the ducts was 10 mm. The upper third of the main bile duct contained one stone, which was 6 mm in diameter. The main bile duct was moderately dilated and diffusely dilated, with a stone causing an obstruction. The largest diameter was 9 mm. A cholecystectomy had been performed. Extravasation of contrast originating from the cystic duct was observed. A long 0.025 inch Jagwire was passed into the biliary tree. A 5 mm biliary sphincterotomy was made with a traction (standard) sphincterotome using ERBE electrocautery. There was no post-sphincterotomy bleeding. The biliary tree was swept with a 12 mm balloon starting at the upper third of the main bile duct, middle third of the main bile duct, lower third of the main duct, bifurcation, right intrahepatic duct(s) and right main hepatic duct. Sludge was swept from the duct. All stones were removed. One 10 mm by 8 cm covered metal stent was placed 5 cm into the common bile duct. Bile flowed through the stent. The stent was in good position. Impression: - The entire main bile duct was moderately dilated, with a stone causing an obstruction. - A bile leak was found. - The patient has had a cholecystectomy. - Choledocholithiasis was found. Complete removal was accomplished by biliary sphincterotomy and balloon extraction. - A pancreatic sphincterotomy was performed. - One temporary stent was placed into the ventral pancreatic duct. - A biliary sphincterotomy was performed. - The biliary tree was swept. - One covered metal stent was placed into the common bile duct. Procedure Code(s): --- Professional --- 65052, Endoscopic retrograde cholangiopancreatography (ERCP); with placement of endoscopic stent into biliary or pancreatic duct, including pre- and post-dilation and guide wire passage, when performed, including sphincterotomy, when performed, each stent [id number], 59, Endoscopic retrograde cholangiopancreatography (ERCP); with placement of endoscopic stent into biliary or pancreatic duct, including pre- and post-dilation and guide wire passage, when performed, including sphincterotomy, when performed, each stent 21216, Endoscopic retrograde cholangiopancreatography (ERCP); with removal of calculi/debris from biliary/pancreatic duct(s) 15768, 26, Combined endoscopic catheterization of the biliary and pancreatic ductal systems, radiological supervision and interpretation CPT copyright 2021 [employer]. All rights reserved. The codes documented in this report are preliminary and upon surgical coder review may be revised to meet current compliance requirements. Zander Santana DO 06/30/2025 6:12:58 PM This report has been signed electronically. Number of Addenda: 0 Note Initiated On: 06/30/2025 4:46 PM
--- NOTE | 2025-06-30 18:25 | PCM.POST.ANE ---
Anesthesia: Postop Eval I Current Vital Signs Temperature: 97.6 F Pulse Rate: 81 Blood Pressure: 137/74 Respiratory Rate: 16 Pulse Ox: 94 Oxygen Delivery Method: Room Air Assessment Airway patent: Yes Spontaneous unlabored respirations: Yes Mental status: Awake and Calm nausea: No Vomiting: No Anesthesia Complication: No Fluid Hydration Crystalloid volume administer (ml): 700 Total IV fluid infused: 700 Progress Note Anesthesia document: Postop Eval 1 completed: Yes
[2025-06-30] MEDS: 0.9% Saline Lock 10 ML Syringe IV (19:10)
[2025-06-30] MEDS: Pantoprazole Sodium 40 MG in 0.9% Normal Saline (100mL MB+) 100 ML 300 MG IV (21:23)
--- NOTE | 2025-07-01 01:21 | PCM.POSTANE2 ---
Anesthesia Postop Eval I Sum Postop Eval Completion status Anesthesia document: Postop Eval 1 completed: Yes Anesthesia Postop Eval I Summary Anesthesia Postop Eval I Summary: Anesthesia Postop Eval I: Assessment Summary Airway patent Yes 06/30/25 18:27 Spontaneous unlabored Yes 06/30/25 18:27 respirations Mental status Awake,Calm 06/30/25 18:27 nausea No 06/30/25 18:27 Vomiting No 06/30/25 18:27 Anesthesia Postop Eval I: Fluid Summary Crystalloid volume administer 700 06/30/25 18:27 (ml) Colloids volume administered ( ml) Blood Product volume administered (ml) Total IV fluid infused 700 06/30/25 18:27 Anesthesia Postop Eval I: Summary Notes Anesthesia Complication No 06/30/25 18:27 Anesthesia Complication Comment: Post-operative progress note Anesthesia: Postop Eval II Evaluation Mental status: Awake and Calm Pain Level: 0 nausea: No Vomiting: No Complications Anesthesia Complication: No
[2025-07-01 03:54] VITALS: BP 106/55; PULSE 75; RESP 18; TEMP 36.4; O2SAT 95
[2025-07-01] MEDS: 0.9% Normal Saline (1000mL) 1,000 ML 100 ML IV ×2 (03:59→15:09)
[2025-07-01 04:54] LABS: Hematocrit 37.5 % (40-54); Hemoglobin 12.0 g/dL (13.0-16.5); Immature Granulocytes Count 0.180 X10^3/uL (0.0-0.0); Mean Corp Hgb Conc 32.0 g/dL (32-36); Mean Corpuscular Volume 95.4 fL (80-94); Mean Platelet Vol. 9.6 fl (6.2-12.0); NRBC Flagged by Analyzer 0 % (0-5); Platelet Count 342 K/mm3 (150-450); RBC Distribution Width CV 14.6 % (11.6-14.6); RBC Distribution Width SD 50.4 fl (35.1-43.9); Red Blood Count 3.93 M/mm3 (4.6-6.2); White Blood Count 12.8 K/mm3 (4.4-11.0)
[2025-07-01 05:26] LABS: Anion Gap 10 (5-15); BUN 17 mg/dL (4-19); BUN/Creat Ratio 11.7 RATIO (10-20); Calcium,Total 8.2 mg/dL (7.6-11.0); Carbon Dioxide 21.3 mmol/L (21.0-32.0); Chloride 106 mmol/L (98-108); Estimated Creatinine Clearance 64.76 ml/min (50-250); Glucose 173 mg/dL (70-99); Potassium 4.0 mmol/L (3.3-5.1)
[2025-07-01] MEDS: Piperacil/Tazobactam 3.375 GM in 0.9% Normal Saline (50mL MB+) 50 ML IV ×3 (06:47→23:49)
--- NOTE | 2025-07-01 09:05 | PN.SURG_ITS ---
Subjective Subjective Patient states still has a little bit of nausea but is tolerating full liquids currently. CHANDA serosanguineous Objective Data Objective Data Vital Signs: Vital Signs Temp Pulse Resp BP Pulse Ox O2 Del Method O2 Flow Rate 97.6 F L 75 18 106/55 L 95 Room Air 2 07/01/25 03:54 07/01/25 03:54 07/01/25 03:54 07/01/25 03:54 07/01/25 03:54 07/01/25 03:54 06/30/25 21:32 Oxygen Flow Rate (L/min) 2 Oxygen Delivery Method Room Air Weight: 279 lb 15.793 oz Body Mass Index (BMI) 36.9 Intake & Output: Intake and Output for Last 24 Hours 06/29/25 06/30/25 07/01/25 23:59 23:59 23:59 Intake Total 2821.5 / 2821.5 2448.55 / 2448.55 1751.67 / 1751.67 Output Total 508 / 508 420 / 420 80 / 80 Balance 2313.5 / 2313.5 2028.55 / 2028.55 1671.67 / 1671.67 Lab / Micro Data 07/01/25 04:29 07/01/25 04:29 Labs: Laboratory Results - last 24 hr 06/30/25 11:12: POC Glucose 206 H 06/30/25 19:18: POC Glucose 146 H 06/30/25 21:04: POC Glucose 201 H 07/01/25 04:29: WBC 12.8 H, RBC 3.93 L, Hgb 12.0 L, Hct 37.5 L, MCV 95.4 H, MCH 30.5, MCHC 32.0, RDW Std Deviation 50.4 H, RDW Coeff of Geovanna 14.6, Plt Count 342, MPV 9.6, Immature Gran % (Auto) 1.400 H, Neut % (Auto) 83.6 H, Lymph % (Auto) 8.9 L, [place] % (Auto) 5.6, Eos % (Auto) 0.3, Baso % (Auto) 0.2, Absolute Neuts (auto) 10.7 H, Absolute Lymphs (auto) 1.13, Nucleated RBC % 0, Sodium 138, Potassium 4.0, Chloride 106, Carbon Dioxide 21.3, Anion Gap 10, BUN 17, C reatinine 1.44 H, Estim Creat Clear Calc 64.76, Est GFR (MDRD) Non-Af 52 L, BUN/Creatinine Ratio 11.7, Glucose 173 H, Calcium 8.2 07/01/25 06:49: POC Glucose 157 H Radiography Diagnostic Testing: Radiology Impression C-Arm Fluoroscopy 06/30/25 17:30 IMPRESSION: Interval placement of a biliary stent. Please refer to operative note for complete real-time findings and impressions. Reading Location: [id number] Endo Retro Cholangiopancreatogram 06/30/25 17:30 IMPRESSION: Interval placement of a biliary stent. Please refer to operative note for complete real-time findings and impressions. Reading Location: [id number] Physical Exam Resp normal respiratory effort Cardio regular rate GI GI Narrative: Abdomen: Soft, nondistended, tender near incision's dressed clean dry and intact, no peritoneal signs, CHANDA serosanguineous Assessment & Plan Assessment/Plan (1) S/P laparoscopic cholecystectomy: (2) Bile leak: (3) S/P ERCP: PLAN: Plan Continue full liquids advance as tolerated depending on nausea. Status post ERCP?CHANDA currently serosanguineous?continue Continue IV Zosyn?white blood count 12.8 Continue pain control Anny Jacob M.D. Pager: [phone] [facility] [address] [place] [address], [facility], [address] [place] [address] Office: [phone]
[2025-07-01] MEDS: Pioglitazone Hydrochloride 15 MG Tablet PO (09:41)
[2025-07-01] MEDS: FINERENONE 20 MG TABLET PO (09:42)
[2025-07-01 09:50] VITALS: BP 105/55; PULSE 78; RESP 16; TEMP 36.2; O2SAT 96
[2025-07-01] MEDS: Pantoprazole Sodium 40 MG in 0.9% Normal Saline (100mL MB+) 100 ML 300 MG IV (11:04)
[2025-07-01 15:37] VITALS: BP 134/63; PULSE 70; RESP 18; TEMP 36.6; O2SAT 95
[2025-07-01 21:45] VITALS: BP 137/62; PULSE 78; RESP 16; TEMP 36.3; O2SAT 95
[2025-07-01 23:48] VITALS: BP 137/62; PULSE 78
[2025-07-01] MEDS: 0.9% Saline Lock 10 ML Syringe IV (23:48)
[2025-07-02 00:23] VITALS: BP 137/70; PULSE 81; RESP 16; TEMP 36.5; O2SAT 93
[2025-07-02] MEDS: 0.9% Normal Saline (1000mL) 1,000 ML 100 ML IV ×3 (00:34→21:24)
[2025-07-02 02:32] VITALS: BP 143/70; PULSE 81; RESP 18; TEMP 36.8; O2SAT 94
[2025-07-02] MEDS: Piperacil/Tazobactam 3.375 GM in 0.9% Normal Saline (50mL MB+) 50 ML IV ×3 (06:20→21:22)
[2025-07-02 07:48] LABS: Hematocrit 37.2 % (40-54); Hemoglobin 11.9 g/dL (13.0-16.5); Immature Granulocytes Count 0.130 X10^3/uL (0.0-0.0); Mean Corp Hgb Conc 32.0 g/dL (32-36); Mean Corpuscular Volume 95.9 fL (80-94); Mean Platelet Vol. 9.1 fl (6.2-12.0); NRBC Flagged by Analyzer 0 % (0-5); Platelet Count 368 K/mm3 (150-450); RBC Distribution Width CV 14.9 % (11.6-14.6); RBC Distribution Width SD 51.6 fl (35.1-43.9); Red Blood Count 3.88 M/mm3 (4.6-6.2); White Blood Count 11.9 K/mm3 (4.4-11.0)
[2025-07-02 08:14] LABS: Anion Gap 8 (5-15); BUN 13 mg/dL (4-19); BUN/Creat Ratio 9.3 RATIO (10-20); Calcium,Total 8.2 mg/dL (7.6-11.0); Carbon Dioxide 23.9 mmol/L (21.0-32.0); Chloride 108 mmol/L (98-108); Estimated Creatinine Clearance 69.08 ml/min (50-250); Glucose 134 mg/dL (70-99); Potassium 3.7 mmol/L (3.3-5.1)
[2025-07-02 08:54] VITALS: BP 143/61; PULSE 92; RESP 18; TEMP 36.4; O2SAT 97
[2025-07-02] MEDS: Pioglitazone Hydrochloride 15 MG Tablet PO (08:58)
[2025-07-02] MEDS: FINERENONE 20 MG TABLET PO (08:59)
--- NOTE | 2025-07-02 10:15 | PN.SURG_ITS ---
Subjective Subjective Patient still complains of some epigastric discomfort but no nausea. Tolerating regular diet. White blood count down to 11.9. Objective Data Objective Data Vital Signs: Vital Signs Temp Pulse Resp BP Pulse Ox O2 Del Method O2 Flow Rate 97.5 F L 92 18 143/61 H 97 Room Air 2 07/02/25 08:54 07/02/25 08:54 07/02/25 08:54 07/02/25 08:54 07/02/25 08:54 07/02/25 09:09 06/30/25 21:32 Oxygen Flow Rate (L/min) 2 Oxygen Delivery Method Room Air Weight: 279 lb 15.793 oz Body Mass Index (BMI) 36.9 Intake & Output: Intake and Output for Last 24 Hours 06/30/25 07/01/25 07/02/25 23:59 23:59 23:59 Intake Total 2448.55 / 2448.55 3751.67 / 3751.67 991.67 / 991.67 Output Total 420 / 420 180 / 230 120 / 120 Balance 2028.55 / 2028.55 3571.67 / 3521.67 871.67 / 871.67 Lab / Micro Data 07/02/25 07:40 07/02/25 07:40 Labs: Laboratory Results - last 24 hr 07/01/25 11:35: POC Glucose 202 H 07/01/25 16:45: POC Glucose 145 H 07/01/25 23:54: POC Glucose 143 H 07/02/25 06:19: POC Glucose 102 07/02/25 07:40: WBC 11.9 H, RBC 3.88 L, Hgb 11.9 L, Hct 37.2 L, MCV 95.9 H, MCH 30.7, MCHC 32.0, RDW Std Deviation 51.6 H, RDW Coeff of Geovanna 14.9 H, Plt Count 368, MPV 9.1, Immature Gran % (Auto) 1.100 H, Neut % (Auto) 83.9 H, Lymph % (Auto) 6.8 L, [place] % (Auto) 5.1, Eos % (Auto) 2.8, Baso % (Auto) 0.3, Absolute Neuts (auto) 10.0 H, Absolute Lymphs (auto) 0.81 L, Nucleated RBC % 0, Sodium 140, Potassium 3.7, Chloride 108, Carbon Dioxide 23.9, Anion Gap 8, BUN 13, C reatinine 1.35 H, Estim Creat Clear Calc 69.08, Est GFR (MDRD) Non-Af 56 L, B UN/Creatinine Ratio 9.3 L, Glucose 134 H, Calcium 8.2 Physical Exam Resp normal respiratory effort Cardio regular rate GI GI Narrative: Abdomen: Soft, nondistended, tender near incision's dressed clean dry and intact, no peritoneal signs, CHANDA serous Assessment & Plan Assessment/Plan (1) S/P laparoscopic cholecystectomy: (2) Bile leak: (3) S/P ERCP: PLAN: Plan Continue regular diet Status post ERCP?CHANDA currently serous?continue likely DC tomorrow Continue IV Zosyn?white blood count down to 11.9 from 12.8 Continue pain control Anny Jacob M.D. Pager: [phone] [facility] [address] [place] [address], [facility], [address] [place] [address] Office: [phone]
[2025-07-02] MEDS: Pantoprazole Sodium 40 MG in 0.9% Normal Saline (100mL MB+) 100 ML 300 MG IV (10:21)
[2025-07-02 14:18] VITALS: BP 116/66; PULSE 77; RESP 18; TEMP 37; O2SAT 98
[2025-07-02 20:19] VITALS: BP 137/69; PULSE 89; RESP 16; TEMP 36.8; O2SAT 96
[2025-07-03] VITALS (21 sets, daily range): BP systolic 82–152; BP diastolic 46–94; PULSE 69–182; RESP 12–36; TEMP 36.3–36.8; O2SAT 95–98
[2025-07-03] MEDS: Piperacil/Tazobactam 3.375 GM in 0.9% Normal Saline (50mL MB+) 50 ML IV ×2 (06:10→18:10)
[2025-07-03] MEDS: 0.9% Normal Saline (1000mL) 1,000 ML 100 ML IV ×2 (07:26→18:58)
[2025-07-03 07:48] LABS: Hematocrit 36.4 % (40-54); Hemoglobin 11.7 g/dL (13.0-16.5); Immature Granulocytes Count 0.110 X10^3/uL (0.0-0.0); Mean Corp Hgb Conc 32.1 g/dL (32-36); Mean Corpuscular Volume 95.3 fL (80-94); Mean Platelet Vol. 9.5 fl (6.2-12.0); NRBC Flagged by Analyzer 0 % (0-5); Platelet Count 343 K/mm3 (150-450); RBC Distribution Width CV 14.6 % (11.6-14.6); RBC Distribution Width SD 50.9 fl (35.1-43.9); Red Blood Count 3.82 M/mm3 (4.6-6.2); White Blood Count 9.9 K/mm3 (4.4-11.0)
--- NOTE | 2025-07-03 08:27 | PN.SURG_ITS ---
Subjective Subjective Patient evaluated resting comfortably in the chair. He denies any nausea, vomiting. She notes very little incisional pain. He voices readiness to be discharged. Objective Data Objective Data Vital Signs: Vital Signs Temp Pulse Resp BP Pulse Ox O2 Del Method O2 Flow Rate 98 F 82 16 152/94 H 98 Room Air 2 07/03/25 02:00 07/03/25 02:00 07/03/25 02:00 07/03/25 02:00 07/03/25 02:00 07/03/25 02:00 06/30/25 21:32 Oxygen Flow Rate (L/min) 2 Oxygen Delivery Method Room Air Weight: 279 lb 15.793 oz Body Mass Index (BMI) 36.9 Intake & Output: Intake and Output for Last 24 Hours 07/01/25 07/02/25 07/03/25 23:59 23:59 23:59 Intake Total 3751.67 / 3751.67 3171.67 / 3171.67 1050 / 1050 Output Total 180 / 230 170 / 230 430 / 430 Balance 3571.67 / 3521.67 3001.67 / 2941.67 620 / 620 Lab / Micro Data 07/03/25 06:38 07/02/25 07:40 Labs: Laboratory Results - last 24 hr 07/02/25 11:34: POC Glucose 197 H 07/02/25 16:40: POC Glucose 149 H 07/02/25 21:20: POC Glucose 177 H 07/03/25 06:09: POC Glucose 141 H 07/03/25 06:38: WBC 9.9, RBC 3.82 L, Hgb 11.7 L, Hct 36.4 L, MCV 95.3 H, MCH 30.6, MCHC 32.1, RDW Std Deviation 50.9 H, RDW Coeff of Geovanna 14.6, Plt Count 343, MPV 9.5, Immature Gran % (Auto) 1.100 H, Neut % (Auto) 81.5 H, Lymph % (Auto) 7.3 L, [place] % (Auto) 6.3, Eos % (Auto) 3.4, Baso % (Auto) 0.4, Absolute Neuts (auto) 8.1 H, Absolute Lymphs (auto) 0.72 L, Nucleated RBC % 0 Physical Exam GI GI Narrative: Abdomen- soft, nontender. CHANDA drain intact. Incisions c/d/i. Assessment & Plan Assessment/Plan (1) S/P laparoscopic cholecystectomy: (2) Bile leak: (3) S/P ERCP: PLAN: Plan I am following this patient in conjunction with Dr. Jacob. She will independently evaluate this patient. CBC reviewed. WBC decreased Continue with CHANDA and will plan to d/c with CHANDA Will need drain teaching reviewed Plan to send home on Augmentin x 5 days Will schedule his f/u appointment for [address] Jacob Ready for discharge around lunchtime Charges/Coding Visit Charges Inpatient E&M: 57409 Subs Hosp L1 (post-op; no charge)
[2025-07-03 08:32] LABS: AST(SGOT) 21 U/L (<=37); Alanine Aminotransfer ALT/SGPT 15 U/L (<=46); Albumin, Serum 2.8 g/dL (3.4-4.8); Alkaline Phosphatase 71 U/L (40-129); Anion Gap 10 (5-15); BUN 10 mg/dL (4-19); BUN/Creat Ratio 7.9 RATIO (10-20); Calcium,Total 7.9 mg/dL (7.6-11.0); Carbon Dioxide 21.9 mmol/L (21.0-32.0); Chloride 106 mmol/L (98-108); Estimated Creatinine Clearance 71.19 ml/min (50-250); Globulin 2.6 g/dL (2.2-4.2); Glucose 141 mg/dL (70-99); Potassium 3.7 mmol/L (3.3-5.1)
[2025-07-03] MEDS: Pioglitazone Hydrochloride 15 MG Tablet PO (10:09)
[2025-07-03] MEDS: FINERENONE 20 MG TABLET PO (10:10)
[2025-07-03] MEDS: Pantoprazole Sodium 40 MG in 0.9% Normal Saline (100mL MB+) 100 ML 300 MG IV (10:11)
--- NOTE | 2025-07-03 12:43 | EKG12_ITS ---
Test Reason : CHEST PAIN Blood Pressure : */* mmHG Vent. Rate : 179 BPM Atrial Rate : * BPM P-R Int : * ms QRS Dur : 72 ms QT Int : 286 ms P-R-T Axes : * -45 -1 degrees QTcB Int : 493 ms Atrial fibrillation with rapid ventricular response Left axis deviation Low voltage QRS Inferior infarct , age undetermined Abnormal ECG When compared with ECG of 24-Jun-2025 04:29, Significant changes have occurred Confirmed by TESSIE PIERSON, CARINE ([id number]), video editor NEEMA MIJARES ([id number]) on 07/03/2025 1:48:33 PM Referred By: Anny Jacob Confirmed By: CARINE KURTZ MD
[2025-07-03 13:48] LABS: Troponin T High Sensitivity 136 ng/L (<=22)
--- NOTE | 2025-07-03 14:08 | ECHOCS_ITS ---
Reason For Study Reason For Study: ATRIAL FIB-FLUTTER Procedure This was a 2D Doppler, Color Flow transthoracic echocardiogram. The study was technically difficult. Contrast injection was performed. Exam performed portable in patient room. Left Ventricle Normal LV size. The left ventricular ejection fraction is 55 %. Moderate segmental systolic dysfunction (see wall motion). Sloan : Hypokinetic. Septal Sloan : Severely Hypokinetic. Lateral Sloan : Severely Hypokinetic. Mid-anteroseptal : Severely Hypokinetic. Mid-Anterior : Hypokinetic. The rest of the wall segments are normal. Right Ventricle Normal RV size. Normal systolic function. Atria The left atrium is moderately enlarged. The right atrium is mildly enlarged. Mitral Valve Normal mitral valve. Tricuspid Valve Normal tricuspid valve. Mild (1+) tricuspid valve insufficiency. Pulmonary artery systolic pressure is 33 mmHg. Aortic Valve Normal aortic valve. Trisinus/trileaflet aortic valve. Pulmonic Valve Normal pulmonic valve. Great Vessels Normal aortic root. The pulmonary artery is normal size. Inferior vena cava collapse with respiration. Pericardium/Pleural No pericardial effusion. Medication Diluted definity 1ml given slow IV push to enhance endocardial definition. MMode/2D Measurements & Calculations LVIDd: 4.9 cm IVSd: 1.1 cm Ao root diam: 3.1 cm LVIDs: 2.0 cm LVPWd: 1.2 cm RVDd: 3.1 cm FS: 58.3 % LAV(MOD-bp): 83.3 ml LVAd ap4: 25.8 cm2 LVAd ap2: 22.3 cm2 LAV(MOD-bp) Indexed: 33.6 ml/m2 LVLd ap4: 7.5 cm LVLd ap2: 7.4 cm LAV(MOD-sp2): 89.0 ml EDV(MOD-sp4): 73.4 ml EDV(MOD-sp2): 53.6 ml LAV(MOD-sp4): 78.7 ml EDV(sp4-el): 75.7 ml EDV(sp2-el): 57.0 ml LVAs ap4: 15.4 cm2 LVAs ap2: 12.9 cm2 LVLs ap4: 6.5 cm LVLs ap2: 6.6 cm ESV(MOD-sp4): 29.5 ml ESV(MOD-sp2): 20.0 ml ESV(sp4-el): 31.0 ml ESV(sp2-el): 21.4 ml EF(MOD-sp4): 59.8 % EF(MOD-sp2): 62.6 % EF(sp4-el): 59.1 % SV(MOD-sp4): 43.9 ml SV(MOD-sp2): 33.6 ml SV(sp4-el): 44.7 ml SI(MOD-sp4): 17.7 ml/m2 SI(MOD-sp2): 13.5 ml/m2 LA A4 area: 24.4 cm2 RA A4 area: 12.8 cm2 TAPSE: 1.4 cm Time Measurements MV dec time: 0.12 sec Doppler Measurements & Calculations MV E max billy: 125.2 cm/sec Ao V2 max: 147.7 cm/sec LV V1 max: 82.6 cm/sec Ao max P.8 mmHg LV V1 max P.7 mmHg Ao V2 mean: 107.9 cm/sec LV V1 mean P.7 mmHg Ao mean P.3 mmHg LV V1 mean: 62.4 cm/sec Ao V2 VTI: 24.0 cm LV V1 VTI: 13.5 cm AV (velocity ratio): 0.56 PA V2 max: 99.5 cm/sec TR max billy: 270.5 cm/sec TR max P.3 mmHg ECHO/Echo Complete W/ Contrast Interpretation Summary The left ventricular ejection fraction is 55 %. Normal LV size. Moderate segmental systolic dysfunction (see wall motion). The left atrium is moderately enlarged. Pulmonary artery systolic pressure is 33 mmHg. Ordering Physician: Enzo Magallanes Referring Physician: Enzo Jasso Performed By: Tammy Osorio RDCS
--- NOTE | 2025-07-03 14:08 | CT_ITS ---
PROCEDURE: CTA CHEST W/WO CONTRAST 07/03/2025 REASON FOR EXAM: AFIB W RVR TECHNIQUE: Procedure Code: [id number] Modality: CT Procedure: CTA CHEST W/WO CONTRAST Multiplanar Sagittal and Coronal images were obtained. CONTRAST: Isovue 370 VOLUME: 100 mL One or more dose reduction techniques were used (e.g., Automated exposure control, adjustment of the mA and/or kV according to patient size, use of iterative reconstruction technique). RADIATION DOSE SUMMARY: CTDlvol: 19+ 15 mGy DLP: 499 mGycm FINDINGS: Bilateral gynecomastia. Degenerative changes of the spine. Thyroid is unremarkable. The esophagus is normal in caliber. Partially visualized stent within the region of the gallbladder fossa. Normal caliber thoracic aorta. No suspicious mediastinal lymphadenopathy. Coronary artery calcifications are present. The heart is normal in size. No pulmonary artery filling defects. Moderate right pleural effusion. Trace left pleural effusion. Mild bilateral lower lobe atelectasis. Superimposed right lower lobe infection not be excluded. Ground-glass opacities of the bilateral lower lobes and bronchial wall thickening in a pattern favoring edema. Additional right lung linear bands which may represent atelectasis versus scar. CT/CTA Chest W/WO Contrast IMPRESSION: No pulmonary embolus. Moderate right and trace left pleural effusions with mild bilateral lower lobe atelectasis; superimposed right lower lobe infection cannot be excluded. Bilateral lower lobe ground-glass opacities and bronchial wall thickening in a pattern favoring pulmonary edema. Coronary artery calcifications. Reading Location: [address]
--- NOTE | 2025-07-03 14:13 | PCM.CONS.GEN ---
Assessment & Plan Assessment/Plan (1) Atrial fibrillation with RVR: PLAN: New onset. Patient to receive bolus of diltiazem and then a drip. Did discuss with Dr. Jacob, who is okay with heparin drip. Check echocardiogram Check CT of the chest to evaluate for pulmonary embolism. (2) Elevated troponin: PLAN: I suspect demand ischemia but cannot rule out primary cause. Patient be anticoagulated with heparin. Consult cardiology for further recommendations. PLAN: Plan Anasarca: Patient is roughly 12 L positive this admission. Blood pressure has been rather soft. Patient would benefit from further diuresis but right now is getting his heart rate in better control and then as his heart rate and blood pressure allow, commencing with diuresis. History of DVT: Patient takes warfarin chronically. That it been held for the surgery. Would continue to hold for the time being determined what further interventions may be necessary. Patient will be anticoagulated with heparin drip Hypertension: Blood pressure has been lower recently so we will continue to hold off on the hydralazine and losartan for now. Cholecystitis/choledocholithiasis/biliary leak: Status post cholecystectomy and ERCP. CHANDA drain. Management per general surgery. VTE prophylaxis with heparin drip Thank for the consult. The hospital service will follow along during this patient's hospitalization. DW patient's . HPI Consult Data Date of Consult: 07/03/25 HPI Narrative Reason for Consultation: Consult requested by Dr. Jacob for atrial fibrillation. HPI Narrative: BRENDON DAVID, is a 74 M who has been dealing with cholecystitis since June 04. He was admitted from June 04 to with acute cholecystitis. He had a marketing administrative assistant automate tube placed on 05 June. Patient was discharged on the only to return on June 24 with cholecystitis. Concern at that time was for his drain not emptying. Patient was subsequently discharged on on the . Patient came back for scheduled surgery on the with Dr. Jacob. Patient underwent a robotic subtotal cholecystectomy with CHANDA drainage. Patient underwent an ERCP on the where the bile duct was noted to be moderately dilated with a stone causing obstruction antibiotic leak was found. Pancreatic sphincterotomy was performed. 1 temporary stent placed into the ventral pancreatic duct. Patient had been doing well and plan was for the patient be discharged today then patient felt unwell after going to the bathroom. Was noted that he was tachycardic and was found to be in atrial fibrillation with RVR with a heart rate into the 180s. The hospital service was contacted and patient was subsequently transferred to the progressive care unit. He describes having left-sided chest pressure and shortness of breath and diaphoresis. Patient has no prior history of atrial fibrillation. Patient is on warfarin chronically due to history of DVT. [ ] [facility] Medical History Hypothyroidism Sleep apnea Thyroid disease Ambulates with cane Back pain Dietary restriction History of pain when walking History of edema Chronic anticoagulation Wears glasses Non-smoker CPAP (continuous positive airway pressure) dependence Hypertension COVID-19 DVT (deep venous thrombosis) Diabetes HLD (hyperlipidemia) Home Medications ?Medication ?Instructions ?Recorded ?Last Taken ?Type acarbose 100 mg tablet (Precose) 100 mg PO BID . 11/12/16 06/18/25 History atenolol 50 mg tablet 50 mg PO BID BLOOD PRESSURE 11/12/16 06/18/25 History losartan 100 mg tablet 100 mg PO QHS BP 11/12/16 06/18/25 History cinnamon bark 500 mg capsule 500 mg PO BID . 05/20/19 06/28/25 History furosemide 20 mg tablet 20 mg PO QHS WATER PILL 05/20/19 06/18/25 History glimepiride 4 mg tablet 2 mg PO BID dm 05/20/19 06/28/25 08:00 History ascorbic acid (vitamin C) 1,000 mg 1 g PO DAILY . 05/08/21 06/28/25 History tablet (Vitamin C) cholecalciferol (vitamin D3) 25 50 mcg PO DAILY REPLACEMENT 05/08/21 06/28/25 History mcg (1,000 unit) capsule (Vitamin D3) multivitamin 1 tab PO DAILY SUPPLEMENT 05/08/21 06/28/25 History pioglitazone 30 mg tablet 15 mg PO DAILY . 05/08/21 06/18/25 History tirzepatide 10 mg/0.5 mL 10 mg subcut ABREU DM 01/05/25 06/15/25 History subcutaneous pen injector (Mounjaro) finerenone 20 mg tablet (Kerendia) 20 mg PO DAILY . 06/03/25 06/18/25 History hydralazine 50 mg tablet 50 mg PO QHS BP 06/03/25 06/18/25 History levothyroxine 50 mcg tablet 50 mcg PO DAILY THY 06/03/25 06/28/25 03:00 History amoxicillin 875 mg-potassium 1 tab PO BIDCM 5 days #10 tabs 07/03/25 Unknown Rx clavulanate 125 mg tablet oxycodone 5 mg tablet 5 mg PO Q6H PRN PRN Pain Score 07/03/25 Unknown Rx 4-10 3 days #10 tabs warfarin 5 mg tablet (Jantoven) 5 mg PO DINNER blood thinner 5 07/03/25 06/23/25 Rx days #5 tabs Allergy/AdvReac Type Severity Reaction Status Date / Time No Known Allergies Allergy Verified 06/29/25 11:04 Family History Father Heart disease Mother CVA (cerebral vascular accident) Surgical History S/P ERCP Hx of right cataract extraction Hx of left cataract extraction History of nasal septoplasty H/O percutaneous insertion of cholecystostomy tube History of surgical procedure on mouth Hx of tonsillectomy History of back surgery Social History housing: house Smoking Status: Never smoker substance use type: does not use ROS ROS Narrative Does not know if he has lower extremity edema. Still with abdominal pain. No nausea or vomiting. All review of systems were negative except as mentioned above in the history of present illness and the other review of systems. Physical Exam Const alert Constitutional Narrative: Uncomfortable but nontoxic. Afebrile. HEENT normocephalic, head/scalp atraumatic and hearing grossly normal bilaterally Resp Resp Narrative: Diminished but otherwise clear posteriorly Cardio Cardio Narrative: Distant heart sounds. Irregularly irregular GI GI Narrative: Tender to palpation. CHANDA drain with serous fluid. Extremity Extremity Narrative: 3+ lower extremity edema. As well as edema on his flanks. Neuro no focal motor deficits Sensorium / Orientation: awake and alert Lab / Micro Data Attestation: I reviewed the patient's lab results. 07/03/25 06:38 07/03/25 06:38 Labs: Laboratory Results - last 24 hr 07/02/25 16:40: POC Glucose 149 H 07/02/25 21:20: POC Glucose 177 H 07/03/25 06:09: POC Glucose 141 H 07/03/25 06:38: WBC 9.9, RBC 3.82 L, Hgb 11.7 L, Hct 36.4 L, MCV 95.3 H, MCH 30.6, MCHC 32.1, RDW Std Deviation 50.9 H, RDW Coeff of Geovanna 14.6, Plt Count 343, MPV 9.5, Immature Gran % (Auto) 1.100 H, Neut % (Auto) 81.5 H, Lymph % (Auto) 7.3 L, [place] % (Auto) 6.3, Eos % (Auto) 3.4, Baso % (Auto) 0.4, Absolute Neuts (auto) 8.1 H, Absolute Lymphs (auto) 0.72 L, Nucleated RBC % 0, Sodium 139, Potassium 3.7, Chloride 106, Carbon Dioxide 21.9, Anion Gap 10, BUN 10, Creatinine 1.31 H, Estim Creat Clear Calc 71.19, Est GFR (MDRD) Non-Af 58 L, BUN/Creatinine Ratio 7.9 L, Glucose 141 H, Calcium 7.9, Total Bilirubin 0.56, AST 21, ALT 15, Alkaline Phosphatase 71, Total Protein 5.4 L, Albumin 2.8 L, Globulin 2.6, Albumin/Globulin Ratio 1.1 07/03/25 11:24: POC Glucose 155 H 07/03/25 13:11: Troponin T High Sens 136 H* EKG Initial EKG: Attestation: I personally reviewed and interpreted this EKG as follows: EKG Rhythm Intrepretation: Atrial Fibrillation (With RVR) Charges/Coding Visit Charges Inpatient E&M: 59261 Init Hosp L2
[2025-07-03] MEDS: 0.9% Saline Lock 10 ML Syringe IV ×3 (14:18→17:15)
[2025-07-03] MEDS: Diltiazem 125 MG in Dextrose 5%-Water (100mL Bag) 100 ML IV (14:29)
[2025-07-03 15:08] LABS: Hematocrit 40.6 % (40-54); Hemoglobin 12.7 g/dL (13.0-16.5); Immature Granulocytes Count 0.130 X10^3/uL (0.0-0.0); Mean Corp Hgb Conc 31.3 g/dL (32-36); Mean Corpuscular Volume 98.5 fL (80-94); Mean Platelet Vol. 9.1 fl (6.2-12.0); NRBC Flagged by Analyzer 0 % (0-5); Platelet Count 285 K/mm3 (150-450); RBC Distribution Width CV 14.7 % (11.6-14.6); RBC Distribution Width SD 53.6 fl (35.1-43.9); Red Blood Count 4.12 M/mm3 (4.6-6.2); White Blood Count 12.5 K/mm3 (4.4-11.0)
[2025-07-03 15:44] LABS: Troponin T High Sens 2 HR 175 ng/L (<=22)
[2025-07-03 15:46] LABS: Prothrombin Time (Protime)PT. 16.2 SECONDS (11.7-14.9)
[2025-07-03 15:47] LABS: Partial Thromboplast Time 29.3 Seconds (24.1-36.2)
[2025-07-03] MEDS: APIXABAN 5 MG TABLET PO ×2 (16:57→22:53)
[2025-07-03] MEDS: Amiodarone 150 MG in Dextrose 5%-Water (100mL Bag) 100 ML 600 MG IV BOLUS (16:59)
[2025-07-03 17:16] LABS: Troponin T High Sens 4 HR 665 ng/L (<=22)
--- NOTE | 2025-07-03 18:06 | PCM.CONS.C ---
Assessment & Plan Assessment/Plan (1) Elevated troponin: PLAN: Patient presents with atrial fibrillation and elevated troponin and segmental wall motion abnormalities suggestive of a cardiac issue. My recommendation at this time is to try and exclude a pulmonary embolism and if the above is excluded then my would recommend that we pursue a left heart catheterization especially due to the wall motion abnormalities as well as his previous history of troponin elevation. We discussed the timing of this. (2) Atrial fibrillation with RVR: PLAN: He does have a history atrial fibrillation with a rapid ventricular response rate. He is spontaneously converted back to sinus rhythm. My recommendation will be to continue his beta-yoko He should receive 1 dose of amiodarone IV Further recommendations will depend post invasive evaluation of his coronary anatomy (3) Hypertension: PLAN: He does have a history of hypertension which appears to be well-controlled at this particular time I would not recommend that we make any major changes. HPI Consult Data Date of Consult: 07/03/25 HPI Narrative HPI Narrative: BRENDON DAVID, is a 74 M who presents with atrial fibrillation with a rapid ventricular response rate with cardiology being consulted for the above. This gentleman apparently has had acute cholecystitis dating back to June 04. He was admitted from the to the for the same he was managed with a cholecystostomy tube and discharged on the and returned back on June 25 with cholecystitis. Was subsequently discharged the following day and came back for his scheduled cholecystectomy on June 29. He underwent a robotic subtotal cholecystectomy with CHANDA drainage subsequently underwent an ERCP on the and was noted to have a stone obstruction with air leak, pancreatic sphincterectomy was performed a temporary stent was placed and he apparently had been doing well until this morning he was noted to be markedly tachycardic and was noted to be in atrial fibrillation with a rapid ventricular response rate with heart rate in the 180s. Cardiac enzymes were obtained which were also noted to be abnormal and cardiology was called for further evaluation and management. He was started on intravenous diltiazem briefly and then spontaneously converted back to regular rhythm. An echocardiogram which was performed demonstrated mildly reduced ejection fraction with segmental wall motion abnormalities involving the apex. It should be recalled that he had presented in 2020 during the COVID pandemic with chest discomfort shortness of breath and was noted to have a markedly abnormal cardiac enzyme pattern. Medical therapy was recommended then presumably to be evaluated further after the pandemic had subsided but it does not look like he had had any further evaluation and management. At this particular time he appears to be stable denying any chest pain or shortness of breath or paroxysmal nocturnal dyspnea. His heart rate was noted to be 72 with his blood pressure approximately 111. He has a previous history of hypertension, history of DVT on chronic warfarin therapy. He also has a history of obesity. [facility] Medical History (Updated 07/03/25 @ 18:[address] Calixto Cardona MD) Hypothyroidism Sleep apnea Thyroid disease Ambulates with cane Back pain Dietary restriction History of pain when walking History of edema Chronic anticoagulation Wears glasses Non-smoker CPAP (continuous positive airway pressure) dependence Hypertension COVID-19 DVT (deep venous thrombosis) Diabetes HLD (hyperlipidemia) Home Medications ?Medication ?Instructions ?Recorded ?Last Taken ?Type acarbose 100 mg tablet (Precose) 100 mg PO BID . 11/12/16 06/18/25 History atenolol 50 mg tablet 50 mg PO BID BLOOD PRESSURE 11/12/16 06/18/25 History losartan 100 mg tablet 100 mg PO QHS BP 11/12/16 06/18/25 History cinnamon bark 500 mg capsule 500 mg PO BID . 05/20/19 06/28/25 History furosemide 20 mg tablet 20 mg PO QHS WATER PILL 05/20/19 06/18/25 History glimepiride 4 mg tablet 2 mg PO BID dm 05/20/19 06/28/25 08:00 History ascorbic acid (vitamin C) 1,000 mg 1 g PO DAILY . 05/08/21 06/28/25 History tablet (Vitamin C) cholecalciferol (vitamin D3) 25 50 mcg PO DAILY REPLACEMENT 05/08/21 06/28/25 History mcg (1,000 unit) capsule (Vitamin D3) multivitamin 1 tab PO DAILY SUPPLEMENT 05/08/21 06/28/25 History pioglitazone 30 mg tablet 15 mg PO DAILY . 05/08/21 06/18/25 History tirzepatide 10 mg/0.5 mL 10 mg subcut ABREU DM 01/05/25 06/15/25 History subcutaneous pen injector (Mounjaro) finerenone 20 mg tablet (Kerendia) 20 mg PO DAILY . 06/03/25 06/18/25 History hydralazine 50 mg tablet 50 mg PO QHS BP 06/03/25 06/18/25 History levothyroxine 50 mcg tablet 50 mcg PO DAILY THY 06/03/25 06/28/25 03:00 History amoxicillin 875 mg-potassium 1 tab PO BIDCM 5 days #10 tabs 07/03/25 Unknown Rx clavulanate 125 mg tablet oxycodone 5 mg tablet 5 mg PO Q6H PRN PRN Pain Score 07/03/25 Unknown Rx 4-10 3 days #10 tabs warfarin 5 mg tablet (Jantoven) 5 mg PO DINNER blood thinner 5 07/03/25 06/23/25 Rx days #5 tabs Allergy/AdvReac Type Severity Reaction Status Date / Time No Known Allergies Allergy Verified 06/29/25 11:04 Family History Father Heart disease Mother CVA (cerebral vascular accident) Surgical History S/P ERCP Hx of right cataract extraction Hx of left cataract extraction History of nasal septoplasty H/O percutaneous insertion of cholecystostomy tube History of surgical procedure on mouth Hx of tonsillectomy History of back surgery Social History housing: house Smoking Status: Never smoker substance use type: does not use ROS Constitutional Constitutional: Denies fever(s) or weight loss Eyes Eyes: Reports systems reviewed and no addt'l complaints, except as documented ENT HEENT: Reports systems reviewed and no addt'l complaints, except as documented Cardiovascular Cardiovascular: Reports dyspnea at rest, dyspnea on exertion and palpitations; Denies chest pain at rest, chest pain with activity, edema or paroxysmal nocturnal dyspnea Respiratory/Chest Respiratory/Chest: Denies dyspnea on exertion, productive cough, shortness of breath at rest or shortness of breath with exertion Gastrointestinal Gastrointestinal: Denies change in bowel habits, nausea, vomiting or weight changes Genitourinary Genitourinary: Denies difficulty urinating Musculoskeletal Musculoskeletal: Denies joint stiffness or muscle weakness Integumentary Integumentary: Denies lesions Neurologic Neurologic: Denies dizziness or syncope Psychiatric Psychiatric: Denies anxiety Endocrine Endocrinology: Denies excessive sweating or fatigue Hematologic/Lymphatic Hematologic/Lymphatic: Denies anemia Allergic/Immunologic Allergic/Immunologic: Denies seasonal rhinorrhea Physical Exam Const alert and oriented x3 Orientation / Consciousness: awake Eyes PERRL Neck Carotids: normal carotid upstroke Chest inspection of chest normal Cardio regular rate and regular rhythm GI normal to inspection, nondistended, normoactive bowel sounds Extremity no clubbing, cyanosis or edema Objective Data Vital Signs: Vital Signs Temp Pulse Resp BP Pulse Ox O2 Del Method O2 Flow Rate 97.4 F L 77 22 H 113/67 98 Nasal Cannula 2 07/03/25 12:43 07/03/25 17:13 07/03/25 16:59 07/03/25 16:59 07/03/25 16:59 07/03/25 16:59 07/03/25 16:59 Oxygen Flow Rate (L/min) 2 Oxygen Delivery Method Nasal Cannula Weight: 279 lb 15.793 oz Body Mass Index (BMI) 36.9 Intake & Output: Intake and Output for Last 24 Hours 07/01/25 07/02/25 07/03/25 23:59 23:59 23:59 Intake Total 3751.67 / 3751.67 3171.67 / 3171.67 1626 / 1626 Output Total 180 / 230 170 / 230 510 / 510 Balance 3571.67 / 3521.67 3001.67 / 2941.67 1116 / 1116 Lab / Micro Data 07/03/25 14:57 07/03/25 06:38 Labs: Laboratory Results - last 24 hr 07/02/25 21:20: POC Glucose 177 H 07/03/25 06:09: POC Glucose 141 H 07/03/25 06:38: WBC 9.9, RBC 3.82 L, Hgb 11.7 L, Hct 36.4 L, MCV 95.3 H, MCH 30.6, MCHC 32.1, RDW Std Deviation 50.9 H, RDW Coeff of Geovanna 14.6, Plt Count 343, MPV 9.5, Immature Gran % (Auto) 1.100 H, Neut % (Auto) 81.5 H, Lymph % (Auto) 7.3 L, [place] % (Auto) 6.3, Eos % (Auto) 3.4, Baso % (Auto) 0.4, Absolute Neuts (auto) 8.1 H, Absolute Lymphs (auto) 0.72 L, Nucleated RBC % 0, Sodium 139, Potassium 3.7, Chloride 106, Carbon Dioxide 21.9, Anion Gap 10, BUN 10, Creatinine 1.31 H, Estim Creat Clear Calc 71.19, Est GFR (MDRD) Non-Af 58 L, BUN/Creatinine Ratio 7.9 L, Glucose 141 H, Calcium 7.9, Total Bilirubin 0.56, AST 21, ALT 15, Alkaline Phosphatase 71, Total Protein 5.4 L, Albumin 2.8 L, Globulin 2.6, Albumin/Globulin Ratio 1.1 07/03/25 11:24: POC Glucose 155 H 07/03/25 13:11: Troponin T High Sens 136 H* 07/03/25 14:57: WBC 12.5 H, RBC 4.12 L, Hgb 12.7 L, Hct 40.6, MCV 98.5 H, MCH 30.8, MCHC 31.3 L, RDW Std Deviation 53.6 H, RDW Coeff of Geovanna 14.7 H, Plt Count 285, MPV 9.1, Immature Gran % (Auto) 1.000 H, Neut % (Auto) 87.1 H, Lymph % (Auto) 5.5 L, [place] % (Auto) 5.6, Eos % (Auto) 0.6, Baso % (Auto) 0.2, Absolute Neuts (auto) 10.8 H, Absolute Lymphs (auto) 0.68 L, Nucleated RBC % 0, PT 16.2 H, INR 1.3, APTT 29.3, Troponin T Hi Sens 2 Hr 175 H* 07/03/25 16:22: Troponin T Hi Sens 4Hr 665 H* 07/03/25 17:11: POC Glucose 199 H Cardiology Labs/Tests 07/03/25 06:38: WBC 9.9, RBC 3.82 L, Hgb 11.7 L, Hct 36.4 L, MCV 95.3 H, MCH 30.6, MCHC 32.1, Plt Count 343, MPV 9.5, Immature Gran % (Auto) 1.100 H, Neut % (Auto) 81.5 H, Lymph % (Auto) 7.3 L, [place] % (Auto) 6.3, Eos % (Auto) 3.4, Baso % (Auto) 0.4, Absolute Neuts (auto) 8.1 H, Nucleated RBC % 0, Sodium 139, Potassium 3.7, Chloride 106, Carbon Dioxide 21.9, Anion Gap 10, BUN 10, Creatinine 1.31 H, Est GFR (MDRD) Non-Af 58 L, BUN/Creatinine Ratio 7.9 L, Glucose 141 H, Calcium 7.9, Total Bilirubin 0.56 07/03/25 14:57: WBC 12.5 H, RBC 4.12 L, Hgb 12.7 L, Hct 40.6, MCV 98.5 H, MCH 30.8, MCHC 31.3 L, Plt Count 285, MPV 9.1, Immature Gran % (Auto) 1.000 H, Neut % (Auto) 87.1 H, Lymph % (Auto) 5.5 L, [place] % (Auto) 5.6, Eos % (Auto) 0.6, Baso % (Auto) 0.2, Absolute Neuts (auto) 10.8 H, Nucleated RBC % 0, PT 16.2 H, INR 1.3, APTT 29.3 Rhythm: EKG: ECHO: Stress Test: Cardiac Cath: PCI: CT Surgery: Holter monitor: EPS: PPM: CXR: Chest CT Scan: Radiography Diagnostic Testing: Radiology Impression Echocardiogram 07/03/25 14:08 Interpretation Summary The left ventricular ejection fraction is 55 %. Normal LV size. Moderate segmental systolic dysfunction (see wall motion). The left atrium is moderately enlarged. Pulmonary artery systolic pressure is 33 mmHg. Ordering Physician: Enzo Magallanes Referring Physician: Enzo Jasso Performed By: Tammy Osorio RDCS E Risk Score for UA/STEMI Assesmment (YES = 1) Risk Stratification Applicable: Yes Age > or = 65: Yes > or = 3 CAD risk factors (HTN, Hypercholesterolemia, Diabetes, family hx, current smoker): Yes Known CAD (Stenosis > or = 50%): No ASA used in past 7 days: No Severe angina (> or = 2 episodes in 24 hrs): No EKG ST change > or = 0.5mm: No Positive cardiac markers: Yes Score RENEE Risk Score of mortality/ recurrent ischemic event over the next 14 days: 3 = 13.2% Intermediate Risk
[2025-07-04] MEDS: 0.9% Normal Saline (1000mL) 1,000 ML 100 ML IV (04:47)
[2025-07-04 04:50] VITALS: BP 106/56; PULSE 71; RESP 16; TEMP 36.9; O2SAT 98
[2025-07-04] MEDS: Piperacil/Tazobactam 3.375 GM in 0.9% Normal Saline (50mL MB+) 50 ML IV ×3 (06:08→22:12)
--- NOTE | 2025-07-04 06:48 | PN.CARD_ITS ---
Subjective Subjective Patient seen and evaluated. Appears to be doing better this morning Objective Data Vital Signs: Vital Signs Temp Pulse Resp BP Pulse Ox O2 Del Method O2 Flow Rate 98.4 F 71 16 106/56 L 98 Nasal Cannula 3 07/04/25 04:50 07/04/25 04:50 07/04/25 04:50 07/04/25 04:50 07/04/25 04:50 07/04/25 04:55 07/04/25 04:55 Oxygen Flow Rate (L/min) 3 Oxygen Delivery Method Nasal Cannula Weight: 279 lb 15.793 oz Body Mass Index (BMI) 36.9 Intake & Output: Intake and Output for Last 24 Hours 07/02/25 07/03/25 07/04/25 23:59 23:59 23:59 Intake Total 3171.67 / 3171.67 2966 / 2966 1158.34 / 1158.34 Output Total 170 / 230 640 / 640 60 / 60 Balance 3001.67 / 2941.67 2326 / 2326 1098.34 / 1098.34 Lab / Micro Data 07/03/25 14:57 07/03/25 06:38 Labs: Laboratory Results - last 24 hr 07/03/25 06:38: WBC 9.9, RBC 3.82 L, Hgb 11.7 L, Hct 36.4 L, MCV 95.3 H, MCH 30.6, MCHC 32.1, RDW Std Deviation 50.9 H, RDW Coeff of Geovanna 14.6, Plt Count 343, MPV 9.5, Immature Gran % (Auto) 1.100 H, Neut % (Auto) 81.5 H, Lymph % (Auto) 7.3 L, [place] % (Auto) 6.3, Eos % (Auto) 3.4, Baso % (Auto) 0.4, Absolute Neuts (auto) 8.1 H, Absolute Lymphs (auto) 0.72 L, Nucleated RBC % 0, Sodium 139, Potassium 3.7, Chloride 106, Carbon Dioxide 21.9, Anion Gap 10, BUN 10, C reatinine 1.31 H, Estim Creat Clear Calc 71.19, Est GFR (MDRD) Non-Af 58 L, B UN/Creatinine Ratio 7.9 L, Glucose 141 H, Calcium 7.9, Total Bilirubin 0.56, AST 21, ALT 15, Alkaline Phosphatase 71, Total Protein 5.4 L, Albumin 2.8 L, Globulin 2.6, Albumin/Globulin Ratio 1.1 07/03/25 11:24: POC Glucose 155 H 07/03/25 13:11: Troponin T High Sens 136 H* 07/03/25 14:57: WBC 12.5 H, RBC 4.12 L, Hgb 12.7 L, Hct 40.6, MCV 98.5 H, MCH 30.8, MCHC 31.3 L, RDW Std Deviation 53.6 H, RDW Coeff of Geovanna 14.7 H, Plt Count 285, MPV 9.1, Immature Gran % (Auto) 1.000 H, Neut % (Auto) 87.1 H, Lymph % (Auto) 5.5 L, [place] % (Auto) 5.6, Eos % (Auto) 0.6, Baso % (Auto) 0.2, Absolute Neuts (auto) 10.8 H, Absolute Lymphs (auto) 0.68 L, Nucleated RBC % 0, PT 16.2 H , INR 1.3, APTT 29.3, Troponin T Hi Sens 2 Hr 175 H* 07/03/25 16:22: Troponin T Hi Sens 4Hr 665 H* 07/03/25 17:11: POC Glucose 199 H 07/03/25 22:52: POC Glucose 206 H Cardiology Labs/Tests 07/03/25 06:38: WBC 9.9, RBC 3.82 L, Hgb 11.7 L, Hct 36.4 L, MCV 95.3 H, MCH 30.6, MCHC 32.1, Plt Count 343, MPV 9.5, Immature Gran % (Auto) 1.100 H, Neut % (Auto) 81.5 H, Lymph % (Auto) 7.3 L, [place] % (Auto) 6.3, Eos % (Auto) 3.4, Baso % (Auto) 0.4, Absolute Neuts (auto) 8.1 H, Nucleated RBC % 0, Sodium 139, Potassium 3.7, Chloride 106, Carbon Dioxide 21.9, Anion Gap 10, BUN 10, C reatinine 1.31 H, Est GFR (MDRD) Non-Af 58 L, BUN/Creatinine Ratio 7.9 L, G lucose 141 H, Calcium 7.9, Total Bilirubin 0.56 07/03/25 14:57: WBC 12.5 H, RBC 4.12 L, Hgb 12.7 L, Hct 40.6, MCV 98.5 H, MCH 30.8, MCHC 31.3 L, Plt Count 285, MPV 9.1, Immature Gran % (Auto) 1.000 H, Neut % (Auto) 87.1 H, Lymph % (Auto) 5.5 L, [place] % (Auto) 5.6, Eos % (Auto) 0.6, Baso % (Auto) 0.2, Absolute Neuts (auto) 10.8 H, Nucleated RBC % 0, PT 16.2 H, INR 1.3, APTT 29.3 Rhythm: EKG: ECHO: Stress Test: Cardiac Cath: PCI: CT Surgery: Holter monitor: EPS: PPM: CXR: Chest CT Scan: Radiography Diagnostic Testing: Radiology Impression Chest CTA 07/03/25 14:08 IMPRESSION: No pulmonary embolus. Moderate right and trace left pleural effusions with mild bilateral lower lobe atelectasis; superimposed right lower lobe infection cannot be excluded. Bilateral lower lobe ground-glass opacities and bronchial wall thickening in a pattern favoring pulmonary edema. Coronary artery calcifications. Reading Location: [address] Echocardiogram 07/03/25 14:08 Interpretation Summary The left ventricular ejection fraction is 55 %. Normal LV size. Moderate segmental systolic dysfunction (see wall motion). The left atrium is moderately enlarged. Pulmonary artery systolic pressure is 33 mmHg. Ordering Physician: Enzo Magallanes Referring Physician: Enzo Jasso Performed By: Tammy Osorio RDCS Physical Exam Const alert and oriented x3 Orientation / Consciousness: awake Eyes PERRL Neck Carotids: normal carotid upstroke Chest inspection of chest normal Cardio regular rate and regular rhythm GI normal to inspection, nondistended, normoactive bowel sounds Extremity no clubbing, cyanosis or edema Assessment & Plan Assessment/Plan (1) Elevated troponin: PLAN: Patient presents with atrial fibrillation and elevated troponin and segmental wall motion abnormalities suggestive of a cardiac issue. He underwent a CT scan which excluded a pulmonary embolism. It appears that he does have wall motion abnormalities and I would like us to pursue a left heart catheterization either later today or tomorrow morning depending on the schedule. (2) Atrial fibrillation with RVR: PLAN: He does have a history atrial fibrillation with a rapid ventricular response rate. He is spontaneously converted back to sinus rhythm. My recommendation will be to continue his beta-yoko He should receive 1 dose of amiodarone IV He will continue with his current medical therapy. Further recommendations will depend post invasive evaluation of his coronary anatomy. Would hold Eliquis after this morning (3) Hypertension: PLAN: He does have a history of hypertension which appears to be well-controlled at this particular time I would not recommend that we make any major changes.
[2025-07-04 07:53] LABS: Hematocrit 36.1 % (40-54); Hemoglobin 11.6 g/dL (13.0-16.5); Immature Granulocytes Count 0.180 X10^3/uL (0.0-0.0); Mean Corp Hgb Conc 32.1 g/dL (32-36); Mean Corpuscular Volume 95.5 fL (80-94); Mean Platelet Vol. 9.5 fl (6.2-12.0); NRBC Flagged by Analyzer 0 % (0-5); Platelet Count 362 K/mm3 (150-450); RBC Distribution Width CV 14.8 % (11.6-14.6); RBC Distribution Width SD 51.8 fl (35.1-43.9); Red Blood Count 3.78 M/mm3 (4.6-6.2); White Blood Count 11.5 K/mm3 (4.4-11.0)
[2025-07-04 07:55] LABS: INR Fingerstick 1.2
--- NOTE | 2025-07-04 08:24 | PN.HOSP_ITS ---
Subjective Subjective Feeling well. Objective Data Objective Data Vital Signs: Vital Signs Temp Pulse Resp BP Pulse Ox O2 Del Method O2 Flow Rate 36.9 C 71 16 106/56 L 98 Nasal Cannula 3 07/04/25 04:50 07/04/25 04:50 07/04/25 04:50 07/04/25 04:50 07/04/25 04:50 07/04/25 04:55 07/04/25 04:55 Oxygen Flow Rate (L/min) 3 Oxygen Delivery Method Nasal Cannula Weight: 127 kg Body Mass Index (BMI) 36.9 Intake & Output: Intake and Output for Last 24 Hours 07/02/25 07/03/25 07/04/25 23:59 23:59 23:59 Intake Total 3171.67 / 3171.67 2966 / 2966 1158.34 / 1158.34 Output Total 170 / 230 640 / 640 60 / 60 Balance 3001.67 / 2941.67 2326 / 2326 1098.34 / 1098.34 Lab / Micro Data 07/04/25 07:13 07/04/25 07:13 Labs: Laboratory Results - last 24 hr 06/29/25 10:31: POC PT 14.9, INR 1.2 07/03/25 06:38: Sodium 139, Potassium 3.7, Chloride 106, Carbon Dioxide 21.9, Anion Gap 10, BUN 10, Creatinine 1.31 H, Estim Creat Clear Calc 71.19, Est GFR (MDRD) Non-Af 58 L, BUN/Creatinine Ratio 7.9 L, Glucose 141 H, Calcium 7.9, Total Bilirubin 0.56, AST 21, ALT 15, Alkaline Phosphatase 71, Total Protein 5.4 L, Albumin 2.8 L, Globulin 2.6, Albumin/Globulin Ratio 1.1 07/03/25 11:24: POC Glucose 155 H 07/03/25 13:11: Troponin T High Sens 136 H* 07/03/25 14:57: WBC 12.5 H, RBC 4.12 L, Hgb 12.7 L, Hct 40.6, MCV 98.5 H, MCH 30.8, MCHC 31.3 L, RDW Std Deviation 53.6 H, RDW Coeff of Geovanna 14.7 H, Plt Count 285, MPV 9.1, Immature Gran % (Auto) 1.000 H, Neut % (Auto) 87.1 H, Lymph % (Auto) 5.5 L, [place] % (Auto) 5.6, Eos % (Auto) 0.6, Baso % (Auto) 0.2, Absolute Neuts (auto) 10.8 H, Absolute Lymphs (auto) 0.68 L, Nucleated RBC % 0, PT 16.2 H , INR 1.3, APTT 29.3, Troponin T Hi Sens 2 Hr 175 H* 07/03/25 16:22: Troponin T Hi Sens 4Hr 665 H* 07/03/25 17:11: POC Glucose 199 H 07/03/25 22:52: POC Glucose 206 H 07/04/25 07:13: WBC 11.5 H, RBC 3.78 L, Hgb 11.6 L, Hct 36.1 L, MCV 95.5 H, MCH 30.7, MCHC 32.1, RDW Std Deviation 51.8 H, RDW Coeff of Geovanna 14.8 H, Plt Count 362, MPV 9.5, Immature Gran % (Auto) 1.600 H, Neut % (Auto) 76.4 H, Lymph % (Auto) 9.9 L, [place] % (Auto) 9.9, Eos % (Auto) 1.9, Baso % (Auto) 0.3, Absolute Neuts (auto) 8.8 H, Absolute Lymphs (auto) 1.14, Nucleated RBC % 0 Radiography Diagnostic Testing: Radiology Impression Chest CTA 07/03/25 14:08 IMPRESSION: No pulmonary embolus. Moderate right and trace left pleural effusions with mild bilateral lower lobe atelectasis; superimposed right lower lobe infection cannot be excluded. Bilateral lower lobe ground-glass opacities and bronchial wall thickening in a pattern favoring pulmonary edema. Coronary artery calcifications. Reading Location: [id number] Echocardiogram 07/03/25 14:08 Interpretation Summary The left ventricular ejection fraction is 55 %. Normal LV size. Moderate segmental systolic dysfunction (see wall motion). The left atrium is moderately enlarged. Pulmonary artery systolic pressure is 33 mmHg. Ordering Physician: Enzo Magallanes Referring Physician: Enzo Jasso Performed By: Tammy Osorio RDCS Physical Exam Const alert and no apparent distress HEENT head/scalp atraumatic and moist oral mucous membranes Resp normal respiratory effort, no retractions, no use of accessory muscles and clear to auscultation bilaterally Cardio regular rate, regular rhythm, S1 normal heart sound and S2 normal heart sound GI normal to inspection, nondistended, normoactive bowel sounds, soft to palpation, non-tender and non-distended Extremity General Extremity: edema bilateral lower extremity Details: moderate Neuro Sensorium / Orientation: awake Assessment & Plan Assessment/Plan (1) Atrial fibrillation with RVR: PLAN: New onset. Converted later on 07/03 Patient to receive bolus of diltiazem and then a drip. Echocardiogram EF of 55%. (2) Elevated troponin: PLAN: Troponin 136, to 888. Cardiology consulted. Plan for left heart catheterization. CTA chest negative for PE. It did show pleural effusions and pulmonary vascular congestion. PLAN: Plan Anasarca: Patient is roughly 12 L positive this admission. Blood pressure has been rather soft. Patient would benefit from further diuresis but right now is getting his heart rate in better control and then as his heart rate and blood pressure allow, commencing with diuresis. History of DVT: Patient takes warfarin chronically. That it been held for the surgery. Would continue to hold for the time being determined what further interventions may be necessary. Patient will be anticoagulated with heparin drip Hypertension: Blood pressure has been lower recently so we will continue to hold off on the hydralazine and losartan for now. Cholecystitis/choledocholithiasis/biliary leak: Status post cholecystectomy and ERCP. CHANDA drain. Management per general surgery. on pip/tazo VTE prophylaxis with heparin drip Charges/Coding Visit Charges Inpatient E&M: 65498 Subs Hosp L2
[2025-07-04 08:29] LABS: AST(SGOT) 174 U/L (<=37); Alanine Aminotransfer ALT/SGPT 32 U/L (<=46); Albumin, Serum 2.7 g/dL (3.4-4.8); Alkaline Phosphatase 81 U/L (40-129); Anion Gap 10 (5-15); BUN 11 mg/dL (4-19); BUN/Creat Ratio 8.9 RATIO (10-20); Calcium,Total 7.8 mg/dL (7.6-11.0); Carbon Dioxide 21.3 mmol/L (21.0-32.0); Chloride 108 mmol/L (98-108); Estimated Creatinine Clearance 74.01 ml/min (50-250); Globulin 2.8 g/dL (2.2-4.2); Glucose 162 mg/dL (70-99); Potassium 3.8 mmol/L (3.3-5.1)
[2025-07-04 09:06] VITALS: BP 109/55; PULSE 70; RESP 14; TEMP 36.4; O2SAT 96
[2025-07-04] MEDS: APIXABAN 5 MG TABLET PO (09:10)
[2025-07-04] MEDS: Pioglitazone Hydrochloride 15 MG Tablet PO (09:11)
[2025-07-04] MEDS: FINERENONE 20 MG TABLET PO (09:11)
[2025-07-04 09:12] VITALS: BP 109/55
[2025-07-04] MEDS: Pantoprazole Sodium 40 MG in 0.9% Normal Saline (100mL MB+) 100 ML 300 MG IV (10:46)
--- NOTE | 2025-07-04 11:07 | PN.SURG_ITS ---
Subjective Subjective Patient evaluated resting comfortably in bed. He denies any chest pain or shortness of breath. No new concerns this morning. Objective Data Objective Data Vital Signs: Vital Signs Temp Pulse Resp BP Pulse Ox O2 Del Method O2 Flow Rate 97.6 F L 70 14 109/55 L 96 Room Air 3 07/04/25 09:06 07/04/25 09:06 07/04/25 09:06 07/04/25 09:12 07/04/25 09:06 07/04/25 09:06 07/04/25 04:55 Oxygen Flow Rate (L/min) 3 Oxygen Delivery Method Room Air Weight: 279 lb 15.793 oz Body Mass Index (BMI) 36.9 Intake & Output: Intake and Output for Last 24 Hours 07/02/25 07/03/25 07/04/25 23:59 23:59 23:59 Intake Total 3171.67 / 3171.67 2966 / 2966 1208.34 / 1208.34 Output Total 170 / 230 640 / 640 60 / 60 Balance 3001.67 / 2941.67 2326 / 2326 1148.34 / 1148.34 Lab / Micro Data 07/04/25 07:13 07/04/25 07:13 Labs: Laboratory Results - last 24 hr 06/29/25 10:31: POC PT 14.9, INR 1.2 07/03/25 11:24: POC Glucose 155 H 07/03/25 13:11: Troponin T High Sens 136 H* 07/03/25 14:57: WBC 12.5 H, RBC 4.12 L, Hgb 12.7 L, Hct 40.6, MCV 98.5 H, MCH 30.8, MCHC 31.3 L, RDW Std Deviation 53.6 H, RDW Coeff of Geovanna 14.7 H, Plt Count 285, MPV 9.1, Immature Gran % (Auto) 1.000 H, Neut % (Auto) 87.1 H, Lymph % (Auto) 5.5 L, [place] % (Auto) 5.6, Eos % (Auto) 0.6, Baso % (Auto) 0.2, Absolute Neuts (auto) 10.8 H, Absolute Lymphs (auto) 0.68 L, Nucleated RBC % 0, PT 16.2 H , INR 1.3, APTT 29.3, Troponin T Hi Sens 2 Hr 175 H* 07/03/25 16:22: Troponin T Hi Sens 4Hr 665 H* 07/03/25 17:11: POC Glucose 199 H 07/03/25 22:52: POC Glucose 206 H 07/04/25 06:06: POC Glucose 175 H 07/04/25 07:13: WBC 11.5 H, RBC 3.78 L, Hgb 11.6 L, Hct 36.1 L, MCV 95.5 H, MCH 30.7, MCHC 32.1, RDW Std Deviation 51.8 H, RDW Coeff of Geovanna 14.8 H, Plt Count 362, MPV 9.5, Immature Gran % (Auto) 1.600 H, Neut % (Auto) 76.4 H, Lymph % (Auto) 9.9 L, [place] % (Auto) 9.9, Eos % (Auto) 1.9, Baso % (Auto) 0.3, Absolute Neuts (auto) 8.8 H, Absolute Lymphs (auto) 1.14, Nucleated RBC % 0, Sodium 139, Potassium 3.8, Chloride 108, Carbon Dioxide 21.3, Anion Gap 10, BUN 11, C reatinine 1.26 H, Estim Creat Clear Calc 74.01, Est GFR (MDRD) Non-Af 61, B UN/Creatinine Ratio 8.9 L, Glucose 162 H, Calcium 7.8, Total Bilirubin 0.44, AST 174 H, ALT 32, Alkaline Phosphatase 81, Total Protein 5.5 L, Albumin 2.7 L, Globulin 2.8, Albumin/Globulin Ratio 1.0 Radiography Diagnostic Testing: Radiology Impression Chest CTA 07/03/25 14:08 IMPRESSION: No pulmonary embolus. Moderate right and trace left pleural effusions with mild bilateral lower lobe atelectasis; superimposed right lower lobe infection cannot be excluded. Bilateral lower lobe ground-glass opacities and bronchial wall thickening in a pattern favoring pulmonary edema. Coronary artery calcifications. Reading Location: [address] Echocardiogram 07/03/25 14:08 Interpretation Summary The left ventricular ejection fraction is 55 %. Normal LV size. Moderate segmental systolic dysfunction (see wall motion). The left atrium is moderately enlarged. Pulmonary artery systolic pressure is 33 mmHg. Ordering Physician: Enzo Magallanes Referring Physician: Enzo Jasso Performed By: Tammy Osorio RDCS Physical Exam GI GI Narrative: Abdomen- soft, nontender. CHANDA drain with high output of serosanguineous fluid. Incisions c/d/i. No erythema or infection noted. CHANDA drain dressing changed. Assessment & Plan Assessment/Plan (1) S/P laparoscopic cholecystectomy: (2) Bile leak: (3) S/P ERCP: (4) Elevated troponin: (5) Atrial fibrillation with RVR: PLAN: Plan I am following this patient in conjunction with Dr. Olivares. He has independently evaluated this patient. Labs reviewed Patient to go for heart cath today or tomorrow Continue with CHANDA drain and management Patient will likely go home with CHANDA drain We will continue to monitor this patient Charges/Coding Visit Charges Inpatient E&M: 27346 Subs Hosp L1 (no charge; post-op)
[2025-07-04 15:14] VITALS: BP 105/60; PULSE 76; RESP 16; TEMP 36.6; O2SAT 96
[2025-07-04] MEDS: 0.9% Saline Lock 10 ML Syringe IV (17:44)
[2025-07-04 22:00] VITALS: BP 124/75; PULSE 76; RESP 18; TEMP 36; O2SAT 96
[2025-07-04 22:09] VITALS: BP 124/75; PULSE 76
[2025-07-05] VITALS (12 sets, daily range): BP systolic 98–138; BP diastolic 55–75; PULSE 62–72; RESP 16–18; TEMP 35.8–36.6; O2SAT 93–99
[2025-07-05] MEDS: Piperacil/Tazobactam 3.375 GM in 0.9% Normal Saline (50mL MB+) 50 ML IV (05:15)
--- NOTE | 2025-07-05 05:36 | EKG12_ITS ---
Test Reason : AM EKG Blood Pressure : */* mmHG Vent. Rate : 70 BPM Atrial Rate : 70 BPM P-R Int : 154 ms QRS Dur : 82 ms QT Int : 420 ms P-R-T Axes : 26 -26 65 degrees QTcB Int : 453 ms Normal sinus rhythm Low voltage QRS Cannot rule out Anteroseptal infarct , age undetermined Abnormal ECG When compared with ECG of 03-Jul-2025 15:51, MANUAL COMPARISON REQUIRED DATA IS UNCONFIRMED Confirmed by TESSIE PIERSON, CARINE ([id number]), photographic editor ZI JORGENSEN ([id number]) on 07/06/2025 6:36:35 AM Referred By: Anny Jacob Confirmed By: CARINE KURTZ MD
--- NOTE | 2025-07-05 05:55 | EKG12_ITS ---
Test Reason : Blood Pressure : */* mmHG Vent. Rate : 84 BPM Atrial Rate : 84 BPM P-R Int : 154 ms QRS Dur : 72 ms QT Int : 350 ms P-R-T Axes : 39 -36 66 degrees QTcB Int : 413 ms Normal sinus rhythm Left axis deviation Low voltage QRS Cannot rule out Anteroseptal infarct , age undetermined Abnormal ECG When compared with ECG of 03-Jul-2025 12:46, Sinus rhythm has replaced Atrial fibrillation Vent. rate has decreased by 95 bpm Minimal criteria for Anteroseptal infarct are now Present Confirmed by TESSIE PIERSON, CARINE ([id number]), photography editor ZI JORGENSEN ([id number]) on 07/05/2025 6:40:05 AM Referred By: Anny Jacob Confirmed By: CARINE KURTZ MD
[2025-07-05 06:42] LABS: Hematocrit 33.4 % (40-54); Hemoglobin 10.7 g/dL (13.0-16.5); Immature Granulocytes Count 0.220 X10^3/uL (0.0-0.0); Mean Corp Hgb Conc 32.0 g/dL (32-36); Mean Corpuscular Volume 94.9 fL (80-94); Mean Platelet Vol. 9.3 fl (6.2-12.0); NRBC Flagged by Analyzer 0 % (0-5); Platelet Count 402 K/mm3 (150-450); RBC Distribution Width CV 14.8 % (11.6-14.6); RBC Distribution Width SD 50.9 fl (35.1-43.9); Red Blood Count 3.52 M/mm3 (4.6-6.2); White Blood Count 11.5 K/mm3 (4.4-11.0)
--- NOTE | 2025-07-05 06:53 | PN.CARD_ITS ---
Subjective Subjective Patient seen and evaluated. Doing better this morning. No complaints Objective Data Vital Signs: Vital Signs Temp Pulse Resp BP Pulse Ox O2 Del Method O2 Flow Rate 96.8 F L 76 18 124/75 H 96 Room Air 3 07/04/25 22:00 07/04/25 22:09 07/04/25 22:00 07/04/25 22:09 07/04/25 22:00 07/04/25 22:00 07/04/25 04:55 Oxygen Flow Rate (L/min) 3 Oxygen Delivery Method Room Air Weight: 279 lb 15.793 oz Body Mass Index (BMI) 36.9 Intake & Output: Intake and Output for Last 24 Hours 07/03/25 07/04/25 07/05/25 23:59 23:59 23:59 Intake Total 2966 / 2966 2198.34 / 2548.34 400 / 400 Output Total 640 / 640 230 / 230 Balance 2326 / 2326 1968.34 / 2318.34 400 / 400 Lab / Micro Data 07/05/25 06:26 07/04/25 07:13 Labs: Laboratory Results - last 24 hr 06/29/25 10:31: POC PT 14.9, INR 1.2 07/04/25 06:06: POC Glucose 175 H 07/04/25 07:13: WBC 11.5 H, RBC 3.78 L, Hgb 11.6 L, Hct 36.1 L, MCV 95.5 H, MCH 30.7, MCHC 32.1, RDW Std Deviation 51.8 H, RDW Coeff of Geovanna 14.8 H, Plt Count 362, MPV 9.5, Immature Gran % (Auto) 1.600 H, Neut % (Auto) 76.4 H, Lymph % (Auto) 9.9 L, [place] % (Auto) 9.9, Eos % (Auto) 1.9, Baso % (Auto) 0.3, Absolute Neuts (auto) 8.8 H, Absolute Lymphs (auto) 1.14, Nucleated RBC % 0, Sodium 139, Potassium 3.8, Chloride 108, Carbon Dioxide 21.3, Anion Gap 10, BUN 11, C reatinine 1.26 H, Estim Creat Clear Calc 74.01, Est GFR (MDRD) Non-Af 61, B UN/Creatinine Ratio 8.9 L, Glucose 162 H, Calcium 7.8, Total Bilirubin 0.44, AST 174 H, ALT 32, Alkaline Phosphatase 81, Total Protein 5.5 L, Albumin 2.7 L, Globulin 2.8, Albumin/Globulin Ratio 1.0 07/04/25 11:41: POC Glucose 159 H 07/04/25 17:35: POC Glucose 257 H 07/04/25 22:07: POC Glucose 152 H 07/05/25 06:26: WBC 11.5 H, RBC 3.52 L, Hgb 10.7 L, Hct 33.4 L, MCV 94.9 H, MCH 30.4, MCHC 32.0, RDW Std Deviation 50.9 H, RDW Coeff of Geovanna 14.8 H, Plt Count 402, MPV 9.3, Immature Gran % (Auto) 1.900 H, Neut % (Auto) 75.1 H, Lymph % (Auto) 8.5 L, [place] % (Auto) 9.5, Eos % (Auto) 4.3, Baso % (Auto) 0.7, Absolute Neuts (auto) 8.6 H, Absolute Lymphs (auto) 0.98, Nucleated RBC % 0 Cardiology Labs/Tests 06/29/25 10:31: INR 1.2 07/04/25 07:13: WBC 11.5 H, RBC 3.78 L, Hgb 11.6 L, Hct 36.1 L, MCV 95.5 H, MCH 30.7, MCHC 32.1, Plt Count 362, MPV 9.5, Immature Gran % (Auto) 1.600 H, Neut % (Auto) 76.4 H, Lymph % (Auto) 9.9 L, [place] % (Auto) 9.9, Eos % (Auto) 1.9, Baso % (Auto) 0.3, Absolute Neuts (auto) 8.8 H, Nucleated RBC % 0, Sodium 139, Potassium 3.8, Chloride 108, Carbon Dioxide 21.3, Anion Gap 10, BUN 11, C reatinine 1.26 H, Est GFR (MDRD) Non-Af 61, BUN/Creatinine Ratio 8.9 L, Glucose 162 H, Calcium 7.8, Total Bilirubin 0.44 07/05/25 06:26: WBC 11.5 H, RBC 3.52 L, Hgb 10.7 L, Hct 33.4 L, MCV 94.9 H, MCH 30.4, MCHC 32.0, Plt Count 402, MPV 9.3, Immature Gran % (Auto) 1.900 H, Neut % (Auto) 75.1 H, Lymph % (Auto) 8.5 L, [place] % (Auto) 9.5, Eos % (Auto) 4.3, Baso % (Auto) 0.7, Absolute Neuts (auto) 8.6 H, Nucleated RBC % 0 Rhythm: EKG: ECHO: Stress Test: Cardiac Cath: PCI: CT Surgery: Holter monitor: EPS: PPM: CXR: Chest CT Scan: Physical Exam Const alert and oriented x3 Orientation / Consciousness: awake Eyes PERRL Neck Carotids: normal carotid upstroke Chest inspection of chest normal Cardio regular rate and regular rhythm GI normal to inspection, nondistended, normoactive bowel sounds Extremity no clubbing, cyanosis or edema Assessment & Plan Assessment/Plan (1) Elevated troponin: PLAN: Patient presents with atrial fibrillation and elevated troponin and segmental wall motion abnormalities suggestive of a cardiac issue. He underwent a CT scan which excluded a pulmonary embolism. It appears that he does have wall motion abnormalities and I would like us to pursue a left heart catheterization this morning. Benefits alternatives explained to the patient who understands and agrees to proceed. (2) Atrial fibrillation with RVR: PLAN: He does have a history atrial fibrillation with a rapid ventricular response rate. He is spontaneously converted back to sinus rhythm. My recommendation will be to continue his beta-yoko He should receive 1 dose of amiodarone IV He will continue with his current medical therapy. Further recommendations will depend post invasive evaluation of his coronary anatomy. Would hold Eliquis after this morning (3) Hypertension: PLAN: He does have a history of hypertension which appears to be well-controlled at this particular time I would not recommend that we make any major changes.
[2025-07-05 07:08] LABS: Anion Gap 8 (5-15); BUN 12 mg/dL (4-19); BUN/Creat Ratio 8.9 RATIO (10-20); Calcium,Total 8.1 mg/dL (7.6-11.0); Carbon Dioxide 22.1 mmol/L (21.0-32.0); Chloride 107 mmol/L (98-108); Estimated Creatinine Clearance 68.57 ml/min (50-250); Glucose 160 mg/dL (70-99); Potassium 3.7 mmol/L (3.3-5.1)
[2025-07-05] MEDS: 0.9% Saline Lock 10 ML Syringe IV ×3 (07:37→17:33)
[2025-07-05] MEDS: 0.9% Normal Saline (1000mL) 1,000 ML 15 ML IV (08:57)
--- NOTE | 2025-07-05 09:10 | PN.HOSP_ITS ---
Subjective Subjective Feeling well. No chest pain. Objective Data Objective Data Vital Signs: Vital Signs Temp Pulse Resp BP Pulse Ox O2 Del Method O2 Flow Rate 36.5 C L 68 16 113/66 99 Room Air 3 07/05/25 07:24 07/05/25 07:27 07/05/25 07:24 07/05/25 07:27 07/05/25 07:24 07/05/25 08:27 07/05/25 05:10 Oxygen Flow Rate (L/min) 3 Oxygen Delivery Method Room Air Weight: 127 kg Body Mass Index (BMI) 36.9 Intake & Output: Intake and Output for Last 24 Hours 07/03/25 07/04/25 07/05/25 23:59 23:59 23:59 Intake Total 2966 / 2966 2198.34 / 2548.34 400 / 400 Output Total 640 / 640 230 / 230 365 / 365 Balance 2326 / 2326 1968.34 / 2318.34 35 / 35 Lab / Micro Data 07/05/25 06:26 07/05/25 06:26 Labs: Laboratory Results - last 24 hr 07/04/25 11:41: POC Glucose 159 H 07/04/25 17:35: POC Glucose 257 H 07/04/25 22:07: POC Glucose 152 H 07/05/25 06:26: WBC 11.5 H, RBC 3.52 L, Hgb 10.7 L, Hct 33.4 L, MCV 94.9 H, MCH 30.4, MCHC 32.0, RDW Std Deviation 50.9 H, RDW Coeff of Geovanna 14.8 H, Plt Count 402, MPV 9.3, Immature Gran % (Auto) 1.900 H, Neut % (Auto) 75.1 H, Lymph % (Auto) 8.5 L, [place] % (Auto) 9.5, Eos % (Auto) 4.3, Baso % (Auto) 0.7, Absolute Neuts (auto) 8.6 H, Absolute Lymphs (auto) 0.98, Nucleated RBC % 0, Sodium 137, Potassium 3.7, Chloride 107, Carbon Dioxide 22.1, Anion Gap 8, BUN 12, C reatinine 1.36 H, Estim Creat Clear Calc 68.57, Est GFR (MDRD) Non-Af 55 L, B UN/Creatinine Ratio 8.9 L, Glucose 160 H, Calcium 8.1 07/05/25 06:52: POC Glucose 151 H Physical Exam Const alert and no apparent distress Constitutional Narrative: up in bed. non-toxic. no respiratory distress. no conversational dyspnea. Extremity Extremity Narrative: compression band on right wrist. no cyanosis. Neuro Sensorium / Orientation: awake and alert Assessment & Plan Assessment/Plan (1) Atrial fibrillation with RVR: PLAN: New onset. Converted later on 07/03 Patient to receive bolus of diltiazem and then a drip. Echocardiogram EF of 55%. (2) Elevated troponin: PLAN: NSTEMI CTA chest negative for PE. It did show pleural effusions and pulmonary vascular congestion. LHC showed severe triple vessle disease with totally occluded LAD. Patient to follow up with Dr. Welch at [facility] for evaluation for revascularization as outpt. PLAN: Plan Anasarca: Patient is roughly 12 L positive this admission. Blood pressure has been rather soft. Patient would benefit from further diuresis but right now is getting his heart rate in better control and then as his heart rate and blood pressure allow, commencing with diuresis. History of DVT: Patient takes warfarin chronically. That it been held for the surgery. Would continue to hold for the time being determined what further interventions may be necessary. Patient will be anticoagulated with heparin drip Hypertension: Blood pressure has been lower recently so we will continue to hold off on the hydralazine and losartan for now. Cholecystitis/choledocholithiasis/biliary leak: Status post cholecystectomy and ERCP. CHANDA drain. Management per general surgery. on pip/tazo VTE prophylaxis w apixaban Medically stable for discharge. I changed his furosemide dose from 20 to 40/daily upon discharge and Rx sent. Charges/Coding Visit Charges Inpatient E&M: 77596 [facility] Hosp L1
--- NOTE | 2025-07-05 10:17 | PCM.PN.SRG ---
Subjective Subjective Patient seen evaluated earlier today. He had really no issues or complaints from an abdominal standpoint. Patient is to undergo cardiac procedure today Objective Data Objective Data Vital Signs: Vital Signs Temp Pulse Resp BP Pulse Ox O2 Del Method O2 Flow Rate 97.7 F L 68 16 113/66 99 Room Air 3 07/05/25 07:24 07/05/25 07:27 07/05/25 07:24 07/05/25 07:27 07/05/25 07:24 07/05/25 08:27 07/05/25 05:10 Oxygen Flow Rate (L/min) 3 Oxygen Delivery Method Room Air Weight: 279 lb 15.793 oz Body Mass Index (BMI) 36.9 Intake & Output: Intake and Output for Last 24 Hours 07/03/25 07/04/25 07/05/25 23:59 23:59 23:59 Intake Total 2966 / 2966 2198.34 / 2548.34 450 / 450 Output Total 640 / 640 230 / 230 365 / 365 Balance 2326 / 2326 1968.34 / 2318.34 85 / 85 Lab / Micro Data 07/05/25 06:26 07/05/25 06:26 Labs: Laboratory Results - last 24 hr 07/04/25 11:41: POC Glucose 159 H 07/04/25 17:35: POC Glucose 257 H 07/04/25 22:07: POC Glucose 152 H 07/05/25 06:26: WBC 11.5 H, RBC 3.52 L, Hgb 10.7 L, Hct 33.4 L, MCV 94.9 H, MCH 30.4, MCHC 32.0, RDW Std Deviation 50.9 H, RDW Coeff of Geovanna 14.8 H, Plt Count 402, MPV 9.3, Immature Gran % (Auto) 1.900 H, Neut % (Auto) 75.1 H, Lymph % (Auto) 8.5 L, [place] % (Auto) 9.5, Eos % (Auto) 4.3, Baso % (Auto) 0.7, Absolute Neuts (auto) 8.6 H, Absolute Lymphs (auto) 0.98, Nucleated RBC % 0, Sodium 137, Potassium 3.7, Chloride 107, Carbon Dioxide 22.1, Anion Gap 8, BUN 12, Creatinine 1.36 H, Estim Creat Clear Calc 68.57, Est GFR (MDRD) Non-Af 55 L, BUN/Creatinine Ratio 8.9 L, Glucose 160 H, Calcium 8.1 07/05/25 06:52: POC Glucose 151 H Physical Exam Narrative He is alert and oriented x 3. He is in no acute distress. Abdomen is soft obese, appropriately tender. Incisions are clean dry and intact. CHANDA drain in place and putting out a small amount of serous output Assessment & Plan Assessment/Plan (1) S/P laparoscopic cholecystectomy: (2) Bile leak: (3) S/P ERCP: PLAN: Plan The patient is a 74-year-old male status post a recent laparoscopic cholecystectomy for gangrenous gallbladder. Patient developed a bile leak after the procedure and underwent an ERCP. There was concern for cardiac abnormalities and he has to undergo heart catheterization today. Maintain CHANDA drain. He will likely go home with his CHANDA drain. Dr Jacob to return tomorrow
[2025-07-05] MEDS: Pantoprazole Sodium 40 MG in 0.9% Normal Saline (100mL MB+) 100 ML 300 MG IV (10:34)
[2025-07-05] MEDS: Pioglitazone Hydrochloride 15 MG Tablet PO (15:08)
[2025-07-05] MEDS: FINERENONE 20 MG TABLET PO (15:09)
--- NOTE | 2025-07-05 15:50 | CL.D_ITS ---
Patient Name: BRENDON DAVID Study Date: 07/05/2025 Performing: Calixto Cardona MD Ht: 73 inches 185.42 cm : 1950 Wt: 280.4 lbs 127 kg Age: 74 Gender: male BSA: 2.48 PROCEDURE(S) PERFORMED [id number])LHC/COR/LV CLINICAL PROFILE AND INDICATIONS Indications: Suspected CAD Heart Failure: NYHA Class: 2 Stress/Imaging Stress/Image Study Performed: No CAD Presentations: Non-STEMI. Symptom onset Date/Time: 07/02/25 Time Not Available CONCLUSIONS Severe triple-vessel disease with totally occluded left anterior descending artery severe right coronary artery disease and borderline ejection fraction. RECOMMENDATIONS Consider for surgical revascularization after GI issues sorted out. DESCRIPTION OF PROCEDURE The patient arrived to the procedure lab. The risks and benefits of the procedure as well as a full description of our services here and current unavailability of surgical backup were fully explained to the patient and/or their significant other prior to the catheterization. The Timeout was completed, verifying the correct patient and procedure. The patient's procedural site was prepped and draped in the usual fashion. Local anesthetic was given subcutaneously to right radial region with Lidocaine 2%. Using a modified Seldinger technique, arterial access was obtained via the right radial artery, a 6Fr sheath was inserted. Left Coronary Artery selective angiography was performed in multiple views using a 5 Fr. 4.0 Ailey catheter. Right Coronary Artery selective angiography was then performed in multiple views using a 5 Fr. 4.0 Ailey catheter. Left Ventriculography was performed in SCHMIDT projection using a 5 Fr. Pigtail catheter. LV to AO pullback pressures were then recorded.The arterial sheath was pulled and a TR Band was applied for hemostasis CORONARY ANGIOGRAPHY DOMINANCE: Right Dominant LEFT HEART ASSESSMENT Left Ventricular Ejection Fraction: by LV Gram 50 % Anterior Hypokinesis - Moderate. Apical Hypokinesis - Moderate Depressed Left Ventricular systolic function LEFT MAIN: Angiographically normal LEFT ANTERIOR DESCENDING ARTERY: Is a medium size vessel giving off a first diagonal vessel with severe diffuse disease and then the left anterior descending artery is totally occluded in the proximal to mid segment. CIRCUMFLEX ARTERY: Nondominant vessel with a first obtuse marginal branch with severe disease the vessel continues and the second obtuse marginal branch has a 90% distal stenosis. RIGHT CORONARY ARTERY: Large dominant right coronary artery with mild proximal disease. The vessel continues and gives of an ostial posterior descending artery with a 90% stenosis and then the posterolateral vessel has a long 90% diffuse stenosis noted. The vessel reaches the apex of the ventricle and goes collaterals could be seen filling the distal LAD. COLLATERAL FLOW: Collateral flow from Right to Left COMPLICATIONS No Complications PROCEDURE MEDICATIONS Fentanyl 50 mcg IV Versed 1 mg IV Aspirin (325mg) 1 Tabs PO @ 07/05/2025 11:54:55 Heparin given IA 07/05/2025 13:29:57 Verapamil 2.5mg, Ntg 200mcgs, 2000 units of Heparin given IA 07/05/2025 13:29:57 SUMMARY OF HEMODYNAMIC DATA Time AIR REST ECG 13:17:41 LV 103/14, 19 13:45:00 LV 103/14, 23 13:45:08 LV 96/14, 24 13:45:46 LVp 92/14, 24 13:45:50 AOp 96/54 (72) 13:45:57 Signed By Calixto Cardona MD On 07/05/2025 15:49:37 Calixto Cardona MD
[2025-07-06 06:20] VITALS: BP 123/69; PULSE 74; RESP 18; TEMP 36.6; O2SAT 97
--- NOTE | 2025-07-06 07:04 | PN.CARD_ITS ---
Subjective Subjective Patient seen and evaluated. Doing better this morning. Objective Data Vital Signs: Vital Signs Temp Pulse Resp BP Pulse Ox O2 Del Method O2 Flow Rate 97.9 F 74 18 123/69 H 97 Room Air 3 07/06/25 06:20 07/06/25 06:20 07/06/25 06:20 07/06/25 06:20 07/06/25 06:20 07/06/25 06:20 07/06/25 00:44 Oxygen Flow Rate (L/min) 3 Oxygen Delivery Method Room Air Weight: 279 lb 15.793 oz Body Mass Index (BMI) 36.9 Intake & Output: Intake and Output for Last 24 Hours 07/04/25 07/05/25 07/06/25 23:59 23:59 23:59 Intake Total 2198.34 / 2548.34 1030 / 1530 800 / 800 Output Total 230 / 230 815 / 1715 1340 / 1340 Balance 1968.34 / 2318.34 215 / -185 -540 / -540 Lab / Micro Data 07/05/25 06:26 07/05/25 06:26 Labs: Laboratory Results - last 24 hr 07/05/25 06:26: Sodium 137, Potassium 3.7, Chloride 107, Carbon Dioxide 22.1, Anion Gap 8, BUN 12, Creatinine 1.36 H, Estim Creat Clear Calc 68.57, Est GFR (MDRD) Non-Af 55 L, BUN/Creatinine Ratio 8.9 L, Glucose 160 H, Calcium 8.1 07/05/25 06:52: POC Glucose 151 H 07/05/25 16:16: POC Glucose 135 H 07/05/25 21:05: POC Glucose 171 H 07/06/25 06:10: POC Glucose 105 Cardiology Labs/Tests 07/05/25 06:26: Sodium 137, Potassium 3.7, Chloride 107, Carbon Dioxide 22.1, Anion Gap 8, BUN 12, Creatinine 1.36 H, Est GFR (MDRD) Non-Af 55 L, B UN/Creatinine Ratio 8.9 L, Glucose 160 H, Calcium 8.1 Rhythm: EKG: ECHO: Stress Test: Cardiac Cath: PCI: CT Surgery: Holter monitor: EPS: PPM: CXR: Chest CT Scan: Physical Exam Const alert and oriented x3 Orientation / Consciousness: awake Eyes PERRL Neck Carotids: normal carotid upstroke Chest inspection of chest normal Cardio regular rate and regular rhythm GI normal to inspection, nondistended, normoactive bowel sounds Extremity no clubbing, cyanosis or edema Assessment & Plan Assessment/Plan (1) Elevated troponin: PLAN: Patient presents with atrial fibrillation and elevated troponin and segmental wall motion abnormalities suggestive of a cardiac issue. He underwent a CT scan which excluded a pulmonary embolism. It appears that he does have wall motion abnormalities and underwent cardiac catheterization noted below. (2) Atrial fibrillation with RVR: PLAN: He does have a history atrial fibrillation with a rapid ventricular response rate. He is spontaneously converted back to sinus rhythm. My recommendation will be to continue his beta-yoko Will continue p.o. amiodarone with no anticoagulation at this time. He will continue with his current medical therapy. Further recommendations will depend post invasive evaluation of his coronary anatomy. (3) Hypertension: PLAN: He does have a history of hypertension which appears to be well-controlled at this particular time I would not recommend that we make any major changes. (4) CAD (coronary artery disease): PLAN: Patient underwent cardiac catheterization yesterday. Has severe triple- vessel disease with a totally occluded LAD, disease of the circumflex artery, and disease of the ostial PDA as well as the posterolateral vessel. Ejection fraction is noted to be 50%. Based on the above the patient will be referred for coronary artery bypass surgery this will be undertaken as an outpatient. Already contacted the surgeon at [facility] who will see him next week as an outpatient.
[2025-07-06 08:22] VITALS: BP 125/64; PULSE 72; RESP 18; TEMP 36.6; O2SAT 96
[2025-07-06 08:26] VITALS: PULSE 72
[2025-07-06] MEDS: Pioglitazone Hydrochloride 15 MG Tablet PO (08:26)
--- NOTE | 2025-07-06 08:26 | PN.SURG_ITS ---
Subjective Subjective Patient's heart cath yesterday showed he has three-vessel disease and will need bypass. CHANDA serous Objective Data Objective Data Vital Signs: Vital Signs Temp Pulse Resp BP Pulse Ox O2 Del Method O2 Flow Rate 97.9 F 72 18 125/64 H 96 Room Air 3 07/06/25 08:22 07/06/25 08:22 07/06/25 08:22 07/06/25 08:22 07/06/25 08:22 07/06/25 08:22 07/06/25 00:44 Oxygen Flow Rate (L/min) 3 Oxygen Delivery Method Room Air Weight: 279 lb 15.793 oz Body Mass Index (BMI) 36.9 Intake & Output: Intake and Output for Last 24 Hours 07/04/25 07/05/25 07/06/25 23:59 23:59 23:59 Intake Total 2198.34 / 2548.34 1030 / 1530 800 / 800 Output Total 230 / 230 815 / 1715 1340 / 1340 Balance 1968.34 / 2318.34 215 / -185 -540 / -540 Lab / Micro Data 07/05/25 06:26 07/05/25 06:26 Labs: Laboratory Results - last 24 hr 07/05/25 16:16: POC Glucose 135 H 07/05/25 21:05: POC Glucose 171 H 07/06/25 06:10: POC Glucose 105 Physical Exam Const oriented x3 and no apparent distress Resp normal respiratory effort GI soft to palpation and non-tender GI Narrative: CHANDA serous?removed at bedside. Inspection: Negative for abdominal distention Assessment & Plan Assessment/Plan (1) S/P laparoscopic cholecystectomy: (2) Bile leak: (3) S/P ERCP: (4) Elevated troponin: (5) CAD (coronary artery disease): PLAN: Plan The patient is a 74-year-old male status post a recent laparoscopic cholecystectomy for gangrenous gallbladder. Patient developed a bile leak after the procedure and underwent an ERCP. Patient tolerating diet we will DC home Patient was follow-up with cardiac surgeon will start aspirin CHANDA removed at bedside. Patient tolerated well. Follow-up in about 1-2 weeks. Anny Jacob M.D. Pager: [phone] [facility] [address] [place] [address], [facility], [address] [place] [id number] Office: [phone]
[2025-07-06] MEDS: FINERENONE 20 MG TABLET PO (08:27)
--- NOTE | 2025-07-06 08:41 | DCINST_ITS ---
Discharge Instructions Diet Discharge Diet: Light diet - advance as tolerated Activity Discharge Activity: May Not Drive (if having too much pain in abdomen) May shower in (days): 1 Lifting Restrictions: no lifting >20 lbs x 2 wks, no strenuous exercise for 5 wks- Additional Activity Instructions:: no operating bumpy machinery for 5 weeks Dressing / Incision Call your doctor if your incision/area has: Continuous Slow Oozing, Sudden Increased Bleeding, Increased Pain/ Swelling, Increased Redness, Foul Smelling Discharge and Swelling at the incision site Call your doctor if you observe: Fever of 101 or Higher Remove Dressing in: 2 days Cleanse incision/area with: Soap & Water Additional Dressing/Incision Instructions:: Steri-Strips will fall off in 7 to 10 days, if they do not fall off okay to remove after 10 days. Follow Up Care Please Follow Up With: Anny Jacob MD When: Call the office for a follow-up appointment 1-2 weeks; after 5 PM and on the weekends call [phone] with any concerns. Test Results: Test results from this visit will be discussed in further detail at your follow- up appointment, if applicable. Discharge Plan Admission Admit Date/Time: 06/29/25 15:38 Primary Reason for Your Visit: S/p robotic subtotal cholecystectomy; S/p ERCP Attending Provider: Anny Jacob Primary Care Provider: Enzo Jasso Consulting Providers: Calixto Cardona; Zander Santana; Enzo Magallanes Instructions Additional Instructions / Restrictions: Cholecystectomy Diet ? Start light with soups and soft bland foods. You may advance diet as tolerated. Activity ? You may drive in 3-5 days but not while taking narcotic pain medication. ? I encourage walking. You may go up steps, one at a time. ? Do not swim or use hot tubs for 4 weeks. ? For comfort, you may use warm compresses or ice as needed for 15-20 minutes at a time. Lifting ? You may lift up to 15 pounds for 2 weeks. No strenuous activity for 5 weeks from surgery date; no operating large machines as they are bumpy for 5 weeks Dressings/Incision ? Do NOT tub bathe for 5 week--ok to shower ? When plastic dressings are removed, you will find steri strips. It is okay to continue showering with them in place, pat them dry. ? You may remove steri-strips after 10 days from surgery. We recommend getting them soaking wet for easier removal. Medications ? Anesthesia used during surgery and pain medications may cause constipation. I recommend initiating on the day of surgery a fiber supplement like, Metamucil, Citrucel, FiberCon, Benefiber, or a generic form of these medications. 1 heaping tablespoon in water daily. You may continue to utilize any bowel regimen or oral laxatives that you routinely take. ? As long as you are not intolerant to Tylenol, acetaminophen, ibuprofen, Motrin, Advil, Aleve, or similar medications, I would recommend transitioning to these [id number]-[id number] medicines as soon as possible instead of continued use of narcotic pain medication. Follow up ? You will need to contact the [facility] office at [phone] option 2 to schedule a follow-up appointment. Discharge Orders/Prescriptions Prescriptions: New furosemide [Lasix] 40 mg tablet 40 mg PO DAILY Qty: 30 0RF aspirin 81 mg Tablet,Chewable 81 mg PO BREAKFAST Qty: 0 0RF Continued Mounjaro 10 mg/0.5 mL pen injector 10 mg subcut ABREU acarbose [Precose] 100 MG tablet 100 mg PO BID Patient Comments: 1/2 TO 1 TABLET BEFORE EACH MEAL TO REDUCE SUGAR ABSORPTION losartan 100 MG tablet 100 mg PO QHS atenolol 50 MG tablet 50 mg PO BID glimepiride 4 MG tablet 2 mg PO BID Patient Comments: Take 1/2 Tablet twice daily HOLD IF LOW GLUCOSE OR DIZZY cinnamon bark 500 MG capsule 500 mg PO BID multivitamin Tablet 1 tab PO DAILY ascorbic acid (vitamin C) [Vitamin C] 1,000 mg Tablet 1 g PO DAILY pioglitazone 30 mg tablet 15 mg PO DAILY cholecalciferol (vitamin D3) [Vitamin D3] 25 mcg (1,000 unit) Capsule 50 mcg PO DAILY Kerendia 20 mg tablet 20 mg PO DAILY hydralazine 50 mg tablet 50 mg PO QHS levothyroxine 50 mcg tablet 50 mcg PO DAILY warfarin [Jantoven] 5 mg Tablet 5 mg PO DINNER 5 Days Qty: 5 0RF Discontinued furosemide 20 MG tablet 20 mg PO QHS amoxicillin-pot clavulanate 875-125 mg tablet 1 tab PO BID 5 Days Qty: 10 0RF Other Ambulatory Orders: Basic Metabolic Profile (BMP) (Routine) Timeframe: 20250626 Facility: [facility] - Location: Laboratory Ordered By: Dr. Donaldo Ochoa 12 Lead EKG (Routine) Timeframe: 20250626 Facility: [facility] - Location: Cardiovascular Services Ordered By: Dr. Donaldo Ochoa Liver Profile (Routine) Timeframe: 20250626 Facility: [facility] - Location: Laboratory Ordered By: Dr. Anny Jacob Referrals / Follow Up: Enzo Jasso MD [Primary Care Provider, Family Practice] Disposition Disposition (needs filled in before D/C Order can be placed): Home, Self Care
[2025-07-06] MEDS: Pantoprazole Sodium 40 MG in 0.9% Normal Saline (100mL MB+) 100 ML 330 MG IV (08:42)
--- NOTE | 2025-07-06 08:43 | PCM.DC.SUM ---
Providers Date of Admission: 06/29/25 Date of Discharge: 07/06/25 Primary Care Physician: Dr. Enzo Jasso MD Consultations 06/30/25 07:02 Consult: Gastroenterology Routine Consulting Provider: [facility] Reason for Consult: bile leak EMERGENT Consult: No Notified: Yes Date Notified: 06/30/25 Time Notified: 07:03 Method of Notification: Verbal 07/03/25 13:05 Consult: Hospitalist Routine Consulting Provider: Enzo Magallanes Reason for Consult: AFib with RVR EMERGENT Consult: Yes MD Notified: Yes Date Notified: 07/03/25 Time Notified: 13:05 Method of Notification: Text 07/03/25 14:08 Consult: Cardiology Routine Consulting Provider: Calixto Cardona Reason for Consult: afib with rvr EMERGENT Consult: No Notified: Yes Date Notified: 07/03/25 Time Notified: 14:12 Method of Notification: Text Reason For Visit: ACUTE GANGRENOUS CHOLECYSTITIS Diagnosis Discharge Diagnosis (1) S/P laparoscopic cholecystectomy: Status: Acute Code(s): Z90.49 - Acquired absence of other specified parts of digestive tract (2) Bile leak: Status: Acute Code(s): K83.9 - Disease of biliary tract, unspecified (3) S/P ERCP: Status: Acute Code(s): Z98.890 - Other specified postprocedural states (4) Elevated troponin: Status: Acute Code(s): R79.89 - Other specified abnormal findings of blood chemistry (5) CAD (coronary artery disease): Status: Acute Code(s): I25.10 - Atherosclerotic heart disease of [place] coronary artery without angina pectoris Plan The patient is a 74-year-old male status post a recent laparoscopic cholecystectomy for gangrenous gallbladder. Patient developed a bile leak after the procedure and underwent an ERCP. Patient tolerating diet we will DC home Patient was follow-up with cardiac surgeon will start aspirin CHANDA removed at bedside. Patient tolerated well. Follow-up in about 1-2 weeks. Anny Jacob M.D. Pager: [phone] [facility] [address] [place] [address], [address] [place], [place] [id number] Office: [phone] Medications at Discharge Home Medications acarbose 100 mg tablet (Precose) 100 mg PO BID diabetes 11/12/16 atenolol 50 mg tablet 50 mg PO BID BLOOD PRESSURE 11/12/16 losartan 100 mg tablet 100 mg PO QHS blood pressure 11/12/16 cinnamon bark 500 mg capsule 500 mg PO BID supplement 05/20/19 glimepiride 4 mg tablet 2 mg PO BID diabetes 05/20/19 ascorbic acid (vitamin C) 1,000 mg tablet (Vitamin C) 1 g PO DAILY vitamin 05/08/21 cholecalciferol (vitamin D3) 25 mcg (1,000 unit) capsule (Vitamin D3) 50 mcg PO DAILY REPLACEMENT 05/08/21 multivitamin 1 tab PO DAILY SUPPLEMENT 05/08/21 pioglitazone 30 mg tablet 15 mg PO DAILY diabetes 05/08/21 tirzepatide 10 mg/0.5 mL subcutaneous pen injector (Mounjaro) 10 mg subcut ABREU diabetes 01/05/25 finerenone 20 mg tablet (Kerendia) 20 mg PO DAILY heart 06/03/25 hydralazine 50 mg tablet 50 mg PO QHS blood pressure 06/03/25 levothyroxine 50 mcg tablet 50 mcg PO DAILY thyroid 06/03/25 warfarin 5 mg tablet (Jantoven) 5 mg PO DINNER blood thinner 5 days #5 tabs 07/03/25 furosemide 40 mg tablet (Lasix) 40 mg PO DAILY #30 tabs 07/05/25 aspirin 81 mg chewable tablet 81 mg PO BREAKFAST #0 tabs 07/06/25 Hospital Course Operations cholecystecomy (Robotic subtotal) and ERCP Procedures 2-D Echocardiogram and Cardiac catheterization (07/05/2025 showed three-vessel disease referred for bypass) Summary of Care Provided Minutes Spent on Discharge: 15 Hospital Course: 74-year-old male presents for robotic cholecystectomy status post cholecystostomy tube for acute cholecystitis 06/29/2025. Patient was found to have gangrenous gallbladder and had a subtotal robotic cholecystectomy completed with CHANDA placement. Patient did have a bile leak underwent ERCP. Patient was tolerating diet on IV Zosyn due to the gangrenous gallbladder and prior discharge noted to have some chest discomfort and A-fib with RVR, elevated troponins. Medicine and cardiology was consulted. Patient did undergo a cardiac cath on 07/05/2025 and was found to have three-vessel disease recommended cardiac bypass?patient has an appointment next week with Dr. Goyal at [facility]. Patient's CHANDA was removed prior to discharge patient tolerated well. 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 Weight / BMI Weight Weight: 279 lb 15.793 oz Body Mass Index (BMI) 36.9 ABG / Lab / Microbiology Data 07/05/25 06:26 07/05/25 06:26 Laboratory: Laboratory Results - last 24 hr 07/05/25 16:16: POC Glucose 135 H 07/05/25 21:05: POC Glucose 171 H 07/06/25 06:10: POC Glucose 105 D/C Instructions May shower in (days): 1 Additional Activity Instructions: no operating bumpy machinery for 5 weeks Call your doctor if your incision/area has: Continuous Slow Oozing, Sudden Increased Bleeding, Increased Pain/ Swelling, Increased Redness, Foul Smelling Discharge and Swelling at the incision site Call your doctor if you observe: Fever of 101 or Higher Cleanse incision/area with: Soap & Water Additional Dressing/Incision Instructions: Steri-Strips will fall off in 7 to 10 days, if they do not fall off okay to remove after 10 days. DC O2, CPAP, BIPAP Needs Home O2 Discharge instructions: No Please Follow Up With: Anny Jacob MD When: Call the office for a follow-up appointment 1-2 weeks; after 5 PM and on the weekends call [phone] with any concerns. Meaningful Use Info Meaningful Use Meaningful Use Diagnoses (Choose all that apply): None applicable Discharge Plan Admission Admit Date/Time: 06/29/25 15:38 Primary Reason for Your Visit: S/p robotic subtotal cholecystectomy; S/p ERCP Attending Provider: Anny Jacob Primary Care Provider: Enzo Jasso Consulting Providers: Calixto Cardona; Zander Santana; Enzo Magallanes Instructions Additional Instructions / Restrictions: Cholecystectomy Diet ? Start light with soups and soft bland foods. You may advance diet as tolerated. Activity ? You may drive in 3-5 days but not while taking narcotic pain medication. ? I encourage walking. You may go up steps, one at a time. ? Do not swim or use hot tubs for 4 weeks. ? For comfort, you may use warm compresses or ice as needed for 15-20 minutes at a time. Lifting ? You may lift up to 15 pounds for 2 weeks. No strenuous activity for 5 weeks from surgery date; no operating large machines as they are bumpy for 5 weeks Dressings/Incision ? Do NOT tub bathe for 5 week--ok to shower ? When plastic dressings are removed, you will find steri strips. It is okay to continue showering with them in place, pat them dry. ? You may remove steri-strips after 10 days from surgery. We recommend getting them soaking wet for easier removal. Medications ? Anesthesia used during surgery and pain medications may cause constipation. I recommend initiating on the day of surgery a fiber supplement like, Metamucil, Citrucel, FiberCon, Benefiber, or a generic form of these medications. 1 heaping tablespoon in water daily. You may continue to utilize any bowel regimen or oral laxatives that you routinely take. ? As long as you are not intolerant to Tylenol, acetaminophen, ibuprofen, Motrin, Advil, Aleve, or similar medications, I would recommend transitioning to these [id number]-[id number] medicines as soon as possible instead of continued use of narcotic pain medication. Follow up ? You will need to contact the [facility] office at [phone] option 2 to schedule a follow-up appointment. Discharge Orders/Prescriptions Prescriptions: New furosemide [Lasix] 40 mg tablet 40 mg PO DAILY Qty: 30 0RF aspirin 81 mg Tablet,Chewable 81 mg PO BREAKFAST Qty: 0 0RF Continued Mounjaro 10 mg/0.5 mL pen injector 10 mg subcut ABREU acarbose [Precose] 100 MG tablet 100 mg PO BID Patient Comments: 1/2 TO 1 TABLET BEFORE EACH MEAL TO REDUCE SUGAR ABSORPTION losartan 100 MG tablet 100 mg PO QHS atenolol 50 MG tablet 50 mg PO BID glimepiride 4 MG tablet 2 mg PO BID Patient Comments: Take 1/2 Tablet twice daily HOLD IF LOW GLUCOSE OR DIZZY cinnamon bark 500 MG capsule 500 mg PO BID multivitamin Tablet 1 tab PO DAILY ascorbic acid (vitamin C) [Vitamin C] 1,000 mg Tablet 1 g PO DAILY pioglitazone 30 mg tablet 15 mg PO DAILY cholecalciferol (vitamin D3) [Vitamin D3] 25 mcg (1,000 unit) Capsule 50 mcg PO DAILY Kerendia 20 mg tablet 20 mg PO DAILY hydralazine 50 mg tablet 50 mg PO QHS levothyroxine 50 mcg tablet 50 mcg PO DAILY warfarin [Jantoven] 5 mg Tablet 5 mg PO DINNER 5 Days Qty: 5 0RF Discontinued furosemide 20 MG tablet 20 mg PO QHS amoxicillin-pot clavulanate 875-125 mg tablet 1 tab PO BID 5 Days Qty: 10 0RF Other Ambulatory Orders: Basic Metabolic Profile (BMP) (Routine) Timeframe: 20250626 Facility: [facility] - Location: Laboratory Ordered By: Dr. Donaldo Ochoa 12 Lead EKG (Routine) Timeframe: 20250626 Facility: [facility] - Location: Cardiovascular Services Ordered By: Dr. Donaldo Ochoa Liver Profile (Routine) Timeframe: 20250626 Facility: [facility] - Location: Laboratory Ordered By: Dr. Anny Jacob Referrals / Follow Up: Enzo Jasso MD [Primary Care Provider, Family Practice] Disposition Disposition (needs filled in before D/C Order can be placed): Home, Self Care
--- NOTE | 2025-07-06 10:10 | PHA.DC.MR.R ---
Pharmacy [place] Med Reconciliation Pharmacy Service has performed discharge medication reconciliation for this patient. The patient's discharge medication list was reviewed for discrepancies and discrepancies were resolved. Medications at Discharge Home Medications acarbose 100 mg tablet (Precose) 100 mg PO BID diabetes 11/12/16 atenolol 50 mg tablet 50 mg PO BID BLOOD PRESSURE 11/12/16 losartan 100 mg tablet 100 mg PO QHS blood pressure 11/12/16 cinnamon bark 500 mg capsule 500 mg PO BID supplement 05/20/19 glimepiride 4 mg tablet 2 mg PO BID diabetes 05/20/19 ascorbic acid (vitamin C) 1,000 mg tablet (Vitamin C) 1 g PO DAILY vitamin 05/08/21 cholecalciferol (vitamin D3) 25 mcg (1,000 unit) capsule (Vitamin D3) 50 mcg PO DAILY REPLACEMENT 05/08/21 multivitamin 1 tab PO DAILY SUPPLEMENT 05/08/21 pioglitazone 30 mg tablet 15 mg PO DAILY diabetes 05/08/21 tirzepatide 10 mg/0.5 mL subcutaneous pen injector (Mounjaro) 10 mg subcut ABREU diabetes 01/05/25 finerenone 20 mg tablet (Kerendia) 20 mg PO DAILY heart 06/03/25 hydralazine 50 mg tablet 50 mg PO QHS blood pressure 06/03/25 levothyroxine 50 mcg tablet 50 mcg PO DAILY thyroid 06/03/25 warfarin 5 mg tablet (Jantoven) 5 mg PO DINNER blood thinner 5 days #5 tabs 07/03/25 furosemide 40 mg tablet (Lasix) 40 mg PO DAILY #30 tabs 07/05/25 aspirin 81 mg chewable tablet 81 mg PO BREAKFAST #0 tabs 07/06/25
== END 2025-07-06 11:51 | disposition home or self-care (01) | DRG 418 ==
LOC: SDC 17:22 → MS3 17:24 → PCU 07-03 14:09
PROVIDERS: Internal Medicine Gastroenterology; Physician Assistant; Admitting Provider Surgery; PCP Family Medicine; Referring Provider Surgery; Visit Provider Surgery
PROC: 0FT44ZZ Resection of Gallbladder, Percutaneous Endoscopic Approach (ICD-10-PCS; CPT 47562; principal; 2025-06-29 11:55)
PROC: 0F798DZ Dilation of Common Bile Duct with Intraluminal Device, Via Natural or Artificial Opening Endoscopic (ICD-10-PCS; CPT 43260; principal; 2025-06-30 15:40)
DX: K80.63 Calculus of gallbladder and bile duct with acute cholecystitis with obstruction (principal); I24.89 Other forms of acute ischemic heart disease; K91.89 Other postprocedural complications and disorders of digestive system; I47.10 Supraventricular tachycardia, unspecified; K82.A1 Gangrene of gallbladder in cholecystitis; E11.9 Type 2 diabetes mellitus without complications; I10 Essential (primary) hypertension; E03.9 Hypothyroidism, unspecified; E66.9 Obesity, unspecified; I48.91 Unspecified atrial fibrillation; I25.2 Old myocardial infarction; E78.5 Hyperlipidemia, unspecified; G47.30 Sleep apnea, unspecified; I25.10 Atherosclerotic heart disease of native coronary artery without angina pectoris; K83.8 Other specified diseases of biliary tract; R60.1 Generalized edema; Z86.718 Personal history of other venous thrombosis and embolism; Z79.01 Long term (current) use of anticoagulants; Z68.36 Body mass index [BMI] 36.0-36.9, adult; Z79.85 Long-term (current) use of injectable non-insulin antidiabetic drugs; Z79.84 Long term (current) use of oral hypoglycemic drugs; Z79.899 Other long term (current) drug therapy; Z79.890 Hormone replacement therapy
CPT/HCPCS: 36415; 36416; 71275; 74330; 76000; 80048; 80053; 80076; 82962; 84484; 85025; 85610; 85730; 88304; 93005; 93306; 93458; 94668; 99152; 99153; C2625; Q9957; Q9967; A4216; C1769; C1894; C8929; J0525; J1938; J2405

== ENCOUNTER 2025-07-11 10:54 | Outpatient (RCR) | payer MEDICARE, OTHER, SELFPAY ==
[2025-07-11 11:28] LABS: Prothrombin Time (Protime)PT. 16.2 SECONDS (11.7-14.9)
== END 2025-07-15 18:00 | disposition home or self-care (01) ==
LOC: LAB 10:54
PROVIDERS: PCP Family Medicine; Referring Provider Family Medicine; Visit Provider Family Medicine
DX: Z51.81 Encounter for therapeutic drug level monitoring (principal)
CPT/HCPCS: 36415; 85610

== ENCOUNTER → 2025-07-24 | Outpatient (CLI) | payer MEDICARE, OTHER, SELFPAY ==
[2025-07-24 12:33] LABS: Hematocrit 38.3 % (40-54); Hemoglobin 12.1 g/dL (13.0-16.5); Immature Granulocytes Count 0.140 X10^3/uL (0.0-0.0); Mean Corp Hgb Conc 31.6 g/dL (32-36); Mean Corpuscular Volume 95.3 fL (80-94); Mean Platelet Vol. 10.2 fl (6.2-12.0); NRBC Flagged by Analyzer 0 % (0-5); Platelet Count 378 K/mm3 (150-450); RBC Distribution Width CV 16.5 % (11.6-14.6); RBC Distribution Width SD 56.9 fl (35.1-43.9); Red Blood Count 4.02 M/mm3 (4.6-6.2); White Blood Count 7.7 K/mm3 (4.4-11.0)
[2025-07-24 12:41] LABS: Prothrombin Time (Protime)PT. 17.5 SECONDS (11.7-14.9)
[2025-07-24 12:45] LABS: AST(SGOT) 26 U/L (<=37); Alanine Aminotransfer ALT/SGPT 16 U/L (<=46); Albumin, Serum 3.8 g/dL (3.4-4.8); Alkaline Phosphatase 84 U/L (40-129); Anion Gap 11 (5-15); BUN 25 mg/dL (4-19); BUN/Creat Ratio 16.4 RATIO (10-20); Calcium,Total 9.4 mg/dL (7.6-11.0); Carbon Dioxide 23.4 mmol/L (21.0-32.0); Chloride 104 mmol/L (98-108); Globulin 3.2 g/dL (2.2-4.2); Glucose 174 mg/dL (70-99); Magnesium 2.2 mg/dL (1.5-2.2); Potassium 4.3 mmol/L (3.3-5.1)
== END | disposition home or self-care (01) ==
LOC: MFPLAB 10:39
PROVIDERS: PCP Family Medicine; Visit Provider Family Medicine
DX: I25.10 Atherosclerotic heart disease of native coronary artery without angina pectoris (principal); I82.409 Acute embolism and thrombosis of unspecified deep veins of unspecified lower extremity; E11.51 Type 2 diabetes mellitus with diabetic peripheral angiopathy without gangrene
CPT/HCPCS: 36415; 80053; 83036; 83735; 85025; 85610